=== PATIENT | male | born 1955 | race Caucasian/White ===

== ENCOUNTER 2016-04-25 15:37 | Emergency (ER) | payer MEDICARE, MEDICAID ==
[~2016-04-25] VITALS: Ht 172.7 cm; Wt 70.3 kg
[~2016-04-25 15:37] MED LIST: ADV500INH INH; ALBU17IN INH; ALBU83IN INH; ASPI81CH PO; ASPI81TAEC PO; AZIT500T2 PO; CARD240C5 PO; DIGO0.12 PO; ELIQ5TAB PO; GABA-279 PO; GLIM2TA PO; GLIM4TAB PO; Gabapentin PO; INCR1INH INH; INSULANT SC; KEPP1000 PO; LANTINJ4 SC; LORA10TA2 PO; METF1000 PO; METF500T PO; NEXI40CA PO; NITR4TASL SL; OXYC2.5T PO; PRED10TA PO; PRED20TA PO; RAMI1.25 PO; ROSU10TA PO; SPIR1CAP INH; TOPI50TA4 PO; TRAZ100T4 PO; TRAZ150T14 PO; [UNRECOGNIZED DRUG - CODE] PO
[2016-04-25] MEDS ORDERED: raNITIdine SYRUP 150 MG/10 ML UDC PO ONE (17:00)
--- NOTE | 2016-04-25 17:26 | EDDOCDS ---
Nurse's Notes [facility] Name: Donny Hurd Age: 61 yrs Sex: Male : 1955 Arrival Date: 04/25/2016 Time: 15:37 Bed PR1 / Private MD: [facility] - Adults Diagnosis: Urticaria, unspecified Presentation: 04/25 15:47 Presenting complaint: Patient states: arm rash x3 days. Itchy. Adult Sepsis Screening: ttb The patient does not have new or worsening altered mentation. Patient's respiratory rate is less than 22. Systolic blood pressure is greater than 100. Patient has a qSOFA score of 0- Negative Sepsis Screen. Suicide/Homicide risk assessment- the patient denies having any suicidal and/or homicidal ideations and does not present with any other emotional, behavioral or mental health complaints. Status: Patient is not a neon sign servicer or dependent. Transition of care: patient was not received from another setting of care. 15:47 Acuity: TONO Level 5 ttb 15:47 Method Of Arrival: Walkin/Carried/Asstd ttb Triage Assessment: 15:52 General: Appears in no apparent distress, well nourished, well groomed, Behavior is ttb appropriate for age, cooperative, pleasant. Pain: Denies pain. HIV screening NA for this visit Offered previously. Neurological: Level of Consciousness is awake, alert. Cardiovascular: Chest pain is denied. Respiratory: No deficits noted. Airway is patent Denies cough, shortness of breath. GI: Denies intolerance of food, nausea, vomiting, pain. Derm: Skin is normal, facial redness, rash on arms. Historical: - Allergies: tylenol; thorazine (Hives); PENICILLINS (Anaphylaxis); Paxil (Hives); Motrin; Mellaril; LITHIUM DERIVITIVES (Hives); Benadryl (Hives); Aspirin; - Home Meds: 1. 02 at 3lpm as needed (Last dose: Unknown) 2. albuterol sulfate 2.5 mg /3 mL (0.083 %) Inhl nebu every 6 hours (Last dose: Unknown) 3. trazodone 100 mg Oral tab nightly (Last dose: 04/24/2016 22:00) 4. Nexium 40 mg Oral cpDR 1 cap once daily (Last dose: 04/25/2016 08:00) 5. Spiriva with HandiHaler 18 mcg Inhl CpDv 1 cap once daily (Last dose: 04/25/2016 08:00) 6. nitroglycerin 0.4 mg SL subl 1 tab every 5 minutes for Angina (Last dose: Unknown) 7. metformin 500 mg Oral tab 2 times per day (Last dose: 04/25/2016 08:00) 8. ramipril 1.25 mg Oral cap 1 cap once daily (Last dose: 04/25/2016 08:00) 9. topiramate 50 mg oral CSpX 1 cap twice a day (Last dose: 04/25/2016 08:00) 10. gabapentin 100 mg Oral cap 1 caps 3 times per day (Last dose: 04/25/2016 08:00) 11. aspirin 81 mg Oral tab 1 tab once daily (Last dose: 04/25/2016 08:00) 12. glimepiride 4 mg Oral tab 1 tab once daily (Last dose: 04/25/2016 08:00) 13. Lantus 100 unit/mL Sub-Q soln 20 unit nightly (Last dose: 04/24/2016 20:00) 14. levetiracetam 1,000 mg oral tab 1 tab every 12 hours (Last dose: 04/25/2016 08:00) 15. umeclidinium inhalation once daily (Last dose: Unknown) - PMHx: Asthma; Chronic Back pain; Diabetes - IDDM: controlled; Emphysema; [place]; Parkinson's Disease; Seizure Disorder; - PSHx: none; - Social history: Smoking status: Patient uses tobacco products, heavy tobacco smoker. Patient/guardian denies using alcohol, street drugs, No barriers to communication noted, The patient speaks fluent Serbian, Speaks appropriately for age. - Family history: Not pertinent. - : The pt / caregiver states he / she is not on anticoagulants. Home medication list is obtained from the patient. - Exposure Risk Screening:: None identified. Screenin:56 Screening information is obtained from the patient. Fall risk: No risks identified. mlb1 Assistance ADL's: requires no assistance with activities of daily living. Abuse/DV Screen: The patient / caregiver reports he/she is: not in a situation that causes fear, pain or injury. Nutritional screening: No deficits noted. Advance Directives: Currently, there is no health care proxy. home support is adequate. Assessment: 16:55 General: Appears in no apparent distress, comfortable, Behavior is appropriate for age, mlb1 cooperative. Pain: Denies pain. Derm: Rash noted that is itchy, on right arm and left arm Reports itching. 17:24 General: Appears in no apparent distress, comfortable, Behavior is appropriate for age, mlb1 cooperative. Pain: Denies pain. Vital Signs: 15:39 BP 165 / 77; Pulse 101; Resp 20; Temp 98; Pulse Ox 98% ; Weight 70.31 kg; Height 5 ft. cmb 8 in. (172.72 cm); Pain 8/10; 15:39 Body Mass Index 23.57 (70.31 kg, 172.72 cm) cmb Vitals: 15:39 Log In Time: April 25, 2016 at 15:38. cmb ED Course: 15:38 Patient visited by Holly Latif. cmb 15:38 Patient moved to Waiting cmb 15:39 [facility] is Private Physician. cmb 15:40 Patient moved to Pre RCE cmb 15:49 Triage Initiated ttb 16:06 Patient moved to Triage 1 mlb1 16:30 [facility] Bahena F[facility]. ke 16:31 Patient visited by Chester Bahena FNP. ke 16:31 Patient visited by Chester Bahena FNP. ke 16:40 [facility] is Referral Physician. ke 16:47 Patient moved to PR1 / 25 jf3 16:56 The patient / caregiver is instructed regarding the plan of care and ED course. mlb1 16:56 No IV's were initiated during this patient's visit. No procedures done that require mlb1 assistance. 17:19 [facility] [place] Agreement was scanned into [employer] and attached to record. zo 17:25 Patient visited by Gulshan Garcia RN. mlb1 Administered Medications: 17:24 Drug: Ranitidine 300 mg [ranitidine 150 mg tablet (2 tabs)] Route: PO; mlb1 Order Results: There are currently no results for this order. Outcome: 16:40 Discharge ordered by Provider. ke 17:24 Discharge Assessment: Patient awake, alert and oriented x 3. No cognitive and/or mlb1 functional deficits noted. Patient verbalized understanding of disposition instructions. patient administered narcotics - no. The following High Risk Discharge criteria are identified: None. Discharged to home ambulatory. Condition: good. Discharge instructions given to patient, Instructed on discharge instructions, follow up and referral plans. medication usage, Demonstrated understanding of instructions, medications, Pt was receptive of discharge instructions/ teaching. Prescriptions given X 1. No special radiology studies were completed. Property sent home with patient. 17:25 Patient left the ED. mlb1 Signatures: Chester Bahena, DOCTOR OF PHARMACY Gulshan Piña RN RN mlb1 Nikita Rebolledo [place] cmb Conner, Teresa, RN RN ttb Luigi Herndon,RN RN jf3 MTDD
--- NOTE | 2016-04-25 17:26 | EDDOCDS ---
Physician Documentation [facility] Name: Donny Hurd Age: 61 yrs Sex: Male : 1955 Arrival Date: 04/25/2016 Time: 15:37 Bed PR Private MD: [facility] - Adults Disposition: 04/25/16 16:40 Discharged to Home/Self Care. Impression: Urticaria, unspecified. - Condition is Stable. - Discharge Instructions: Pruritus. - Prescriptions for Zantac 300 mg Oral Tablet - take 1 tablet by ORAL route At bedtime; 30 tablet. - Medication Reconciliation, Local Pharmacy Hours form. - Follow up: [facility] - Adults; When: 2 - 3 days; Reason: Recheck today's complaints, Continuance of care. - Problem is an ongoing problem. - Symptoms are unchanged. Historical: - Allergies: tylenol; thorazine (Hives); PENICILLINS (Anaphylaxis); Paxil (Hives); Motrin; Mellaril; LITHIUM DERIVITIVES (Hives); Benadryl (Hives); Aspirin; - Home Meds: 1. 02 at 3lpm as needed (Last dose: Unknown) 2. albuterol sulfate 2.5 mg /3 mL (0.083 %) Inhl nebu every 6 hours (Last dose: Unknown) 3. trazodone 100 mg Oral tab nightly (Last dose: 04/24/2016 22:00) 4. Nexium 40 mg Oral cpDR 1 cap once daily (Last dose: 04/25/2016 08:00) 5. Spiriva with HandiHaler 18 mcg Inhl CpDv 1 cap once daily (Last dose: 04/25/2016 08:00) 6. nitroglycerin 0.4 mg SL subl 1 tab every 5 minutes for Angina (Last dose: Unknown) 7. metformin 500 mg Oral tab 2 times per day (Last dose: 04/25/2016 08:00) 8. ramipril 1.25 mg Oral cap 1 cap once daily (Last dose: 04/25/2016 08:00) 9. topiramate 50 mg oral CSpX 1 cap twice a day (Last dose: 04/25/2016 08:00) 10. gabapentin 100 mg Oral cap 1 caps 3 times per day (Last dose: 04/25/2016 08:00) 11. aspirin 81 mg Oral tab 1 tab once daily (Last dose: 04/25/2016 08:00) 12. glimepiride 4 mg Oral tab 1 tab once daily (Last dose: 04/25/2016 08:00) 13. Lantus 100 unit/mL Sub-Q soln 20 unit nightly (Last dose: 04/24/2016 20:00) 14. levetiracetam 1,000 mg oral tab 1 tab every 12 hours (Last dose: 04/25/2016 08:00) 15. umeclidinium inhalation once daily (Last dose: Unknown) - PMHx: Asthma; Chronic Back pain; Diabetes - IDDM: controlled; Emphysema; [place]; Parkinson's Disease; Seizure Disorder; - PSHx: none; - Social history: Smoking status: Patient uses tobacco products, heavy tobacco smoker. Patient/guardian denies using alcohol, street drugs, No barriers to communication noted, The patient speaks fluent Nigerian, Speaks appropriately for age. - Family history: Not pertinent. - : The pt / caregiver states he / she is not on anticoagulants. Home medication list is obtained from the patient. - Exposure Risk Screening:: None identified. Vital Signs: 04/25 15:39 BP 165 / 77; Pulse 101; Resp 20; Temp 98; Pulse Ox 98% ; Weight 70.31 kg / 155.01 lbs; cmb Height 5 ft. 8 in. (172.72 cm); Pain 8/10; 15:39 Body Mass Index 23.57 (70.31 kg, 172.72 cm) cmb MDM: 16:42 Ranitidine 300 mg PO once ordered. apryl 17:02 Financial registration complete. zo 17:19 [facility] Payment Agreement was scanned into [employer] and attached to record. zo Administered Medications: 17:24 Drug: Ranitidine 300 mg [ranitidine 150 mg tablet (2 tabs)] Route: PO; mlb1 Signatures: Chester Bahena FNP FNP ke Barney, Michael B RN RN mlb1 Nikita Rebolledo Teresa RN RN ttb The chart was reviewed and I authenticate all verbal orders and agree with the evaluation and treatment provided.Attachments: 17:19 [facility] Payment Agreement zo MTDD
--- NOTE | 2016-04-27 18:26 | EDDOCDS ---
Physician Documentation [facility] Name: Donny Hurd Age: 61 yrs Sex: Male : 1955 Arrival Date: 04/25/2016 Time: 15:37 Bed PR Private MD: [facility] - Adults Disposition: 04/25/16 16:40 Discharged to Home/Self Care. Impression: Urticaria, unspecified. - Condition is Stable. - Discharge Instructions: Pruritus. - Prescriptions for Zantac 300 mg Oral Tablet - take 1 tablet by ORAL route At bedtime; 30 tablet. - Medication Reconciliation, Local Pharmacy Hours form. - Follow up: [facility] - Adults; When: 2 - 3 days; Reason: Recheck today's complaints, Continuance of care. - Problem is an ongoing problem. - Symptoms are unchanged. Historical: - Allergies: tylenol; thorazine (Hives); PENICILLINS (Anaphylaxis); Paxil (Hives); Motrin; Mellaril; LITHIUM DERIVITIVES (Hives); Benadryl (Hives); Aspirin; - Home Meds: 1. 02 at 3lpm as needed (Last dose: Unknown) 2. albuterol sulfate 2.5 mg /3 mL (0.083 %) Inhl nebu every 6 hours (Last dose: Unknown) 3. trazodone 100 mg Oral tab nightly (Last dose: 04/24/2016 22:00) 4. Nexium 40 mg Oral cpDR 1 cap once daily (Last dose: 04/25/2016 08:00) 5. Spiriva with HandiHaler 18 mcg Inhl CpDv 1 cap once daily (Last dose: 04/25/2016 08:00) 6. nitroglycerin 0.4 mg SL subl 1 tab every 5 minutes for Angina (Last dose: Unknown) 7. metformin 500 mg Oral tab 2 times per day (Last dose: 04/25/2016 08:00) 8. ramipril 1.25 mg Oral cap 1 cap once daily (Last dose: 04/25/2016 08:00) 9. topiramate 50 mg oral CSpX 1 cap twice a day (Last dose: 04/25/2016 08:00) 10. gabapentin 100 mg Oral cap 1 caps 3 times per day (Last dose: 04/25/2016 08:00) 11. aspirin 81 mg Oral tab 1 tab once daily (Last dose: 04/25/2016 08:00) 12. glimepiride 4 mg Oral tab 1 tab once daily (Last dose: 04/25/2016 08:00) 13. Lantus 100 unit/mL Sub-Q soln 20 unit nightly (Last dose: 04/24/2016 20:00) 14. levetiracetam 1,000 mg oral tab 1 tab every 12 hours (Last dose: 04/25/2016 08:00) 15. umeclidinium inhalation once daily (Last dose: Unknown) - PMHx: Asthma; Chronic Back pain; Diabetes - IDDM: controlled; Emphysema; [place]; Parkinson's Disease; Seizure Disorder; - PSHx: none; - Social history: Smoking status: Patient uses tobacco products, heavy tobacco smoker. Patient/guardian denies using alcohol, street drugs, No barriers to communication noted, The patient speaks fluent Cape Verdean, Speaks appropriately for age. - Family history: Not pertinent. - : The pt / caregiver states he / she is not on anticoagulants. Home medication list is obtained from the patient. - Exposure Risk Screening:: None identified. Vital Signs: 04/25 15:39 BP 165 / 77; Pulse 101; Resp 20; Temp 98; Pulse Ox 98% ; Weight 70.31 kg / 155.01 lbs; cmb Height 5 ft. 8 in. (172.72 cm); Pain 8/10; 15:39 Body Mass Index 23.57 (70.31 kg, 172.72 cm) cmb MDM: 16:42 Ranitidine 300 mg PO once ordered. apryl 17:02 Financial registration complete. zo 17:19 [facility] Payment Agreement was scanned into [employer] and attached to record. zo 04/26 11:45 T-Sheet-- Draft Copy was scanned into [employer] and attached to record. gb Administered Medications: 04/25 17:24 Drug: Ranitidine 300 mg [ranitidine 150 mg tablet (2 tabs)] Route: PO; mlb1 Signatures: Rebecca Veronica, Reg Reg Chester Reynoso, LOAN INTERVIEWER LOAN INTERVIEWER Gulshan Lopez RN RN mlb1 Amaury, Zoeann zo Aiden, Amy, RN RN ttb The chart was reviewed and I authenticate all verbal orders and agree with the evaluation and treatment provided.Attachments: 17:19 [facility] [place] Agreement zo 04/26 11:45 T-Sheet-- Draft Copy gb Chart Complete MTDD
--- NOTE | 2016-04-27 18:26 | EDDOCDS ---
Physician Documentation [facility] Name: Donny Hurd Age: 61 yrs Sex: Male : 1955 Arrival Date: 04/25/2016 Time: 15:37 Bed PR Private MD: [facility] - Adults Disposition: 04/25/16 16:40 Discharged to Home/Self Care. Impression: Urticaria, unspecified. - Condition is Stable. - Discharge Instructions: Pruritus. - Prescriptions for Zantac 300 mg Oral Tablet - take 1 tablet by ORAL route At bedtime; 30 tablet. - Medication Reconciliation, Local Pharmacy Hours form. - Follow up: [facility] - Adults; When: 2 - 3 days; Reason: Recheck today's complaints, Continuance of care. - Problem is an ongoing problem. - Symptoms are unchanged. Historical: - Allergies: tylenol; thorazine (Hives); PENICILLINS (Anaphylaxis); Paxil (Hives); Motrin; Mellaril; LITHIUM DERIVITIVES (Hives); Benadryl (Hives); Aspirin; - Home Meds: 1. 02 at 3lpm as needed (Last dose: Unknown) 2. albuterol sulfate 2.5 mg /3 mL (0.083 %) Inhl nebu every 6 hours (Last dose: Unknown) 3. trazodone 100 mg Oral tab nightly (Last dose: 04/24/2016 22:00) 4. Nexium 40 mg Oral cpDR 1 cap once daily (Last dose: 04/25/2016 08:00) 5. Spiriva with HandiHaler 18 mcg Inhl CpDv 1 cap once daily (Last dose: 04/25/2016 08:00) 6. nitroglycerin 0.4 mg SL subl 1 tab every 5 minutes for Angina (Last dose: Unknown) 7. metformin 500 mg Oral tab 2 times per day (Last dose: 04/25/2016 08:00) 8. ramipril 1.25 mg Oral cap 1 cap once daily (Last dose: 04/25/2016 08:00) 9. topiramate 50 mg oral CSpX 1 cap twice a day (Last dose: 04/25/2016 08:00) 10. gabapentin 100 mg Oral cap 1 caps 3 times per day (Last dose: 04/25/2016 08:00) 11. aspirin 81 mg Oral tab 1 tab once daily (Last dose: 04/25/2016 08:00) 12. glimepiride 4 mg Oral tab 1 tab once daily (Last dose: 04/25/2016 08:00) 13. Lantus 100 unit/mL Sub-Q soln 20 unit nightly (Last dose: 04/24/2016 20:00) 14. levetiracetam 1,000 mg oral tab 1 tab every 12 hours (Last dose: 04/25/2016 08:00) 15. umeclidinium inhalation once daily (Last dose: Unknown) - PMHx: Asthma; Chronic Back pain; Diabetes - IDDM: controlled; Emphysema; [place]; Parkinson's Disease; Seizure Disorder; - PSHx: none; - Social history: Smoking status: Patient uses tobacco products, heavy tobacco smoker. Patient/guardian denies using alcohol, street drugs, No barriers to communication noted, The patient speaks fluent Swiss, Speaks appropriately for age. - Family history: Not pertinent. - : The pt / caregiver states he / she is not on anticoagulants. Home medication list is obtained from the patient. - Exposure Risk Screening:: None identified. Vital Signs: 04/25 15:39 BP 165 / 77; Pulse 101; Resp 20; Temp 98; Pulse Ox 98% ; Weight 70.31 kg / 155.01 lbs; cmb Height 5 ft. 8 in. (172.72 cm); Pain 8/10; 15:39 Body Mass Index 23.57 (70.31 kg, 172.72 cm) cmb MDM: 16:42 Ranitidine 300 mg PO once ordered. apryl 17:02 Financial registration complete. zo 17:19 [facility] Payment Agreement was scanned into [employer] and attached to record. zo 04/26 11:45 T-Sheet-- Draft Copy was scanned into [employer] and attached to record. gb Administered Medications: 04/25 17:24 Drug: Ranitidine 300 mg [ranitidine 150 mg tablet (2 tabs)] Route: PO; mlb1 Signatures: Rebecca Veronica, Reg Reg Chester Reynoso, PIG IRON LOADER PIG IRON LOADER Gulshan Lopez RN RN mlb1 Amaury, Zoeann zo Aiden, Amy, RN RN ttb The chart was reviewed and I authenticate all verbal orders and agree with the evaluation and treatment provided.Attachments: 17:19 [facility] [place] Agreement zo 04/26 11:45 T-Sheet-- Draft Copy gb Chart Complete MTDD
--- NOTE | 2016-04-27 18:27 | EDDOCDS ---
Nurse's Notes [facility] Name: Donny Hurd Age: 61 yrs Sex: Male : 1955 Arrival Date: 04/25/2016 Time: 15:37 Bed PR1 / Private MD: [facility] - Adults Diagnosis: Urticaria, unspecified Presentation: 04/25 15:47 Presenting complaint: Patient states: arm rash x3 days. Itchy. Adult Sepsis Screening: ttb The patient does not have new or worsening altered mentation. Patient's respiratory rate is less than 22. Systolic blood pressure is greater than 100. Patient has a qSOFA score of 0- Negative Sepsis Screen. Suicide/Homicide risk assessment- the patient denies having any suicidal and/or homicidal ideations and does not present with any other emotional, behavioral or mental health complaints. Status: Patient is not a human services supervisor or dependent. Transition of care: patient was not received from another setting of care. 15:47 Acuity: TONO Level 5 ttb 15:47 Method Of Arrival: Walkin/Carried/Asstd ttb Triage Assessment: 15:52 General: Appears in no apparent distress, well nourished, well groomed, Behavior is ttb appropriate for age, cooperative, pleasant. Pain: Denies pain. HIV screening NA for this visit Offered previously. Neurological: Level of Consciousness is awake, alert. Cardiovascular: Chest pain is denied. Respiratory: No deficits noted. Airway is patent Denies cough, shortness of breath. GI: Denies intolerance of food, nausea, vomiting, pain. Derm: Skin is normal, facial redness, rash on arms. Historical: - Allergies: tylenol; thorazine (Hives); PENICILLINS (Anaphylaxis); Paxil (Hives); Motrin; Mellaril; LITHIUM DERIVITIVES (Hives); Benadryl (Hives); Aspirin; - Home Meds: 1. 02 at 3lpm as needed (Last dose: Unknown) 2. albuterol sulfate 2.5 mg /3 mL (0.083 %) Inhl nebu every 6 hours (Last dose: Unknown) 3. trazodone 100 mg Oral tab nightly (Last dose: 04/24/2016 22:00) 4. Nexium 40 mg Oral cpDR 1 cap once daily (Last dose: 04/25/2016 08:00) 5. Spiriva with HandiHaler 18 mcg Inhl CpDv 1 cap once daily (Last dose: 04/25/2016 08:00) 6. nitroglycerin 0.4 mg SL subl 1 tab every 5 minutes for Angina (Last dose: Unknown) 7. metformin 500 mg Oral tab 2 times per day (Last dose: 04/25/2016 08:00) 8. ramipril 1.25 mg Oral cap 1 cap once daily (Last dose: 04/25/2016 08:00) 9. topiramate 50 mg oral CSpX 1 cap twice a day (Last dose: 04/25/2016 08:00) 10. gabapentin 100 mg Oral cap 1 caps 3 times per day (Last dose: 04/25/2016 08:00) 11. aspirin 81 mg Oral tab 1 tab once daily (Last dose: 04/25/2016 08:00) 12. glimepiride 4 mg Oral tab 1 tab once daily (Last dose: 04/25/2016 08:00) 13. Lantus 100 unit/mL Sub-Q soln 20 unit nightly (Last dose: 04/24/2016 20:00) 14. levetiracetam 1,000 mg oral tab 1 tab every 12 hours (Last dose: 04/25/2016 08:00) 15. umeclidinium inhalation once daily (Last dose: Unknown) - PMHx: Asthma; Chronic Back pain; Diabetes - IDDM: controlled; Emphysema; [place]; Parkinson's Disease; Seizure Disorder; - PSHx: none; - Social history: Smoking status: Patient uses tobacco products, heavy tobacco smoker. Patient/guardian denies using alcohol, street drugs, No barriers to communication noted, The patient speaks fluent Salvadorean, Speaks appropriately for age. - Family history: Not pertinent. - : The pt / caregiver states he / she is not on anticoagulants. Home medication list is obtained from the patient. - Exposure Risk Screening:: None identified. Screenin:56 Screening information is obtained from the patient. Fall risk: No risks identified. mlb1 Assistance ADL's: requires no assistance with activities of daily living. Abuse/DV Screen: The patient / caregiver reports he/she is: not in a situation that causes fear, pain or injury. Nutritional screening: No deficits noted. Advance Directives: Currently, there is no health care proxy. home support is adequate. Assessment: 16:55 General: Appears in no apparent distress, comfortable, Behavior is appropriate for age, mlb1 cooperative. Pain: Denies pain. Derm: Rash noted that is itchy, on right arm and left arm Reports itching. 17:24 General: Appears in no apparent distress, comfortable, Behavior is appropriate for age, mlb1 cooperative. Pain: Denies pain. Vital Signs: 15:39 BP 165 / 77; Pulse 101; Resp 20; Temp 98; Pulse Ox 98% ; Weight 70.31 kg; Height 5 ft. cmb 8 in. (172.72 cm); Pain 8/10; 15:39 Body Mass Index 23.57 (70.31 kg, 172.72 cm) cmb Vitals: 15:39 Log In Time: April 25, 2016 at 15:38. cmb ED Course: 15:38 Patient visited by Holly Latif. cmb 15:38 Patient moved to Waiting cmb 15:39 [facility] is Private Physician. cmb 15:40 Patient moved to Pre RCE cmb 15:49 Triage Initiated ttb 16:06 Patient moved to Triage 1 mlb1 16:30 [facility] ke 16:31 Patient visited by Chester Bahena FNP. ke 16:31 Patient visited by Chester Bahena FNP. ke 16:40 [facility] is Referral Physician. ke 16:47 Patient moved to PR1 / jf3 16:56 The patient / caregiver is instructed regarding the plan of care and ED course. mlb1 16:56 No IV's were initiated during this patient's visit. No procedures done that require mlb1 assistance. 17:19 [facility] [place] was scanned into [employer] and attached to record. zo 17:25 Patient visited by Gulshan Garcia RN. mlb1 04/26 11:45 T-Sheet-- Draft Copy was scanned into [employer] and attached to record. gb Administered Medications: 04/25 17:24 Drug: Ranitidine 300 mg [ranitidine 150 mg tablet (2 tabs)] Route: PO; mlb1 Order Results: There are currently no results for this order. Outcome: 16:40 Discharge ordered by Provider. ke 17:24 Discharge Assessment: Patient awake, alert and oriented x 3. No cognitive and/or mlb1 functional deficits noted. Patient verbalized understanding of disposition instructions. patient administered narcotics - no. The following High Risk Discharge criteria are identified: None. Discharged to home ambulatory. Condition: good. Discharge instructions given to patient, Instructed on discharge instructions, follow up and referral plans. medication usage, Demonstrated understanding of instructions, medications, Pt was receptive of discharge instructions/ teaching. Prescriptions given X 1. No special radiology studies were completed. Property sent home with patient. 17:25 Patient left the ED. mlb1 Signatures: Rebecca Veronica, Reg Reg gb Chester Bahena, STRAWHAT INSPECTOR AND PACKER STRAWHAT INSPECTOR AND PACKER Gulshan Lopez, RN RN mlb1 Nikita Rebolledo [place] cmb Conner, Teresa, RN RN ttb Luigi Herndon,RN RN jf3 Chart Complete MTDD
== END 2016-04-25 17:25 | disposition home or self-care (01) ==
LOC: M ED 15:37
DX: L29.9 Pruritus, unspecified (principal); L50.9 Urticaria, unspecified; J45.909 Unspecified asthma, uncomplicated; G89.29 Other chronic pain; M54.9 Dorsalgia, unspecified; E11.9 Type 2 diabetes mellitus without complications; I25.2 Old myocardial infarction; G40.909 Epilepsy, unspecified, not intractable, without status epilepticus; J43.9 Emphysema, unspecified; G20 Parkinson's disease; Z72.0 Tobacco use; Z79.82 Long term (current) use of aspirin; Z79.899 Other long term (current) drug therapy; Z88.6 Allergy status to analgesic agent; Z88.0 Allergy status to penicillin; Z88.8 Allergy status to other drugs, medicaments and biological substances

== ENCOUNTER 2016-05-05 19:28 | Emergency (ER) | payer MEDICARE, MEDICAID ==
[2016-05-05] MEDS ORDERED: KETOROLAC 30 MG/ML VIAL (J1885) As Ordered ONE (20:14)
[2016-05-05] MEDS ORDERED: traMADol 50 MG TAB As Ordered ONE (21:56)
--- NOTE | 2016-05-05 22:07 | EDDOCDS ---
Physician Documentation [facility] Name: Donny Hurd Age: 61 yrs Sex: Male : 1955 Arrival Date: 05/05/2016 Time: 19:28 Bed 14 Private MD: Gonzalez Rob D Disposition: 05/05/16 21:53 Discharged to Home/Self Care. Impression: Pain in left shoulder. - Condition is Stable. - Medication Reconciliation, Local Pharmacy Hours form. - Follow up: Gonzalez Rob; When: Call to arrange an appointment; Reason: Recheck today's complaints. - Problem is chronic. - Symptoms have improved. Historical: - Allergies: Benadryl (Hives); LITHIUM DERIVITIVES (Hives); Mellaril; Motrin; Paxil (Hives); PENICILLINS (Anaphylaxis); thorazine (Hives); tylenol; - Home Meds: 1. 02 at 3lpm as needed 2. albuterol sulfate 2.5 mg /3 mL (0.083 %) Inhl nebu every 6 hours 3. aspirin 81 mg Oral tab 1 tab once daily 4. gabapentin 100 mg Oral cap 1 caps 3 times per day 5. glimepiride 4 mg Oral tab 1 tab once daily 6. Lantus 100 unit/mL Sub-Q soln 20 unit nightly 7. levetiracetam 1,000 mg oral tab 1 tab every 12 hours 8. metformin 500 mg Oral tab 2 times per day 9. Nexium 40 mg Oral cpDR 1 cap once daily 10. nitroglycerin 0.4 mg SL subl 1 tab every 5 minutes for Angina 11. ramipril 1.25 mg Oral cap 1 cap once daily 12. Spiriva with HandiHaler 18 mcg Inhl CpDv 1 cap once daily 13. topiramate 50 mg oral CSpX 1 cap twice a day 14. trazodone 100 mg Oral tab nightly 15. umeclidinium inhalation once daily - PMHx: Asthma; Chronic Back pain; Diabetes - IDDM: controlled; Emphysema; [place]; Parkinson's Disease; Seizure Disorder; - PSHx: none; - Social history: Smoking status: Patient states was never smoker of tobacco. No barriers to communication noted, The patient speaks fluent Arabic, Speaks appropriately for age. - Family history: Not pertinent. - : The pt / caregiver states he / she is not on anticoagulants. Home medication list is obtained from the patient. - Exposure Risk Screening:: None identified. Vital Signs: 05/05 19:54 BP 123 / 73; Pulse 84; Resp 18; Temp 97.8(O); Pulse Ox 94% on R/A; Weight 72.57 kg / jo3 159.99 lbs; Height 5 ft. 8 in. (172.72 cm); 21:56 BP 111 / 57; Pulse 81; Resp 18; Temp 99.0(TE); Pulse Ox 95% on R/A; Pain 10/10; daryl 19:54 Body Mass Index 24.33 (72.57 kg, 172.72 cm) jo3 MDM: 20:13 ketorolac 60 mg IM once ordered. cs11 20:13 Shoulder, Complete Ordered. EDMS 21:53 traMADol 50 mg PO once ordered. cs11 Administered Medications: 20:20 Drug: ketorolac 60 mg [ketorolac 30 mg/mL (1 mL) injection solution (2 mL)] Route: IM; jo3 Site: left gluteus; 22:03 Drug: traMADol 50 mg [tramadol 50 mg tablet (1 tabs)] Route: PO; mb9 Signatures: Dispatcher [employer] EDMS Bernadine LeonRN RN jo3 Immanuel Chen DO DO cs11 Gulshan Stephens RN RN mb9 The chart was reviewed and I authenticate all verbal orders and agree with the evaluation and treatment provided.Corrections: (The following items were deleted from the chart) 19:59 19:49 Allergies: Aspirin; jo3 jo3 MTDD
--- NOTE | 2016-05-05 22:07 | EDDOCDS ---
Nurse's Notes [facility] Name: Donny Hurd Age: 61 yrs Sex: Male : 1955 Arrival Date: 05/05/2016 Time: 19:28 Bed 14 Private MD: Gonzalez Rob D Diagnosis: Pain in left shoulder Presentation: 05/05 19:40 Presenting complaint: EMS states: Previous history CVA. states left sided weakness jo3 going on for 3 days. Has weakened speech and language assistant on left but is historical from previous CVA. Walk 40 feet to stretcher with no difficulty. Has some left arm, neck and upper back pain. FSBS 223. All VS WNL. 19:57 The last date and time the patient was known to be well was was at an unknown time on jo3 an unknown date. Chronic Pre-hospital glucose is not applicable to this patient. Adult Sepsis Screening: The patient does not have new or worsening altered mentation. Patient's respiratory rate is less than 22. Systolic blood pressure is greater than 100. Patient has a qSOFA score of 0- Negative Sepsis Screen. Suicide/Homicide risk assessment- the patient denies having any suicidal and/or homicidal ideations and does not present with any other emotional, behavioral or mental health complaints. Status: Patient is not a child protective services specialist or dependent. Transition of care: patient was not received from another setting of care. 19:57 Acuity: TONO Level 3 jo3 19:57 Method Of Arrival: Ambulance jo3 Triage Assessment: 19:57 HIV screening NA for this visit Offered previously. jo3 Historical: - Allergies: Benadryl (Hives); LITHIUM DERIVITIVES (Hives); Mellaril; Motrin; Paxil (Hives); PENICILLINS (Anaphylaxis); thorazine (Hives); tylenol; - Home Meds: 1. 02 at 3lpm as needed 2. albuterol sulfate 2.5 mg /3 mL (0.083 %) Inhl nebu every 6 hours 3. aspirin 81 mg Oral tab 1 tab once daily 4. gabapentin 100 mg Oral cap 1 caps 3 times per day 5. glimepiride 4 mg Oral tab 1 tab once daily 6. Lantus 100 unit/mL Sub-Q soln 20 unit nightly 7. levetiracetam 1,000 mg oral tab 1 tab every 12 hours 8. metformin 500 mg Oral tab 2 times per day 9. Nexium 40 mg Oral cpDR 1 cap once daily 10. nitroglycerin 0.4 mg SL subl 1 tab every 5 minutes for Angina 11. ramipril 1.25 mg Oral cap 1 cap once daily 12. Spiriva with HandiHaler 18 mcg Inhl CpDv 1 cap once daily 13. topiramate 50 mg oral CSpX 1 cap twice a day 14. trazodone 100 mg Oral tab nightly 15. umeclidinium inhalation once daily - PMHx: Asthma; Chronic Back pain; Diabetes - IDDM: controlled; Emphysema; [place]; Parkinson's Disease; Seizure Disorder; - PSHx: none; - Social history: Smoking status: Patient states was never smoker of tobacco. No barriers to communication noted, The patient speaks fluent Mosotho, Speaks appropriately for age. - Family history: Not pertinent. - : The pt / caregiver states he / she is not on anticoagulants. Home medication list is obtained from the patient. - Exposure Risk Screening:: None identified. Screenin:01 Screening information is obtained from the patient. Assistance ADL's: requires no jo3 assistance with activities of daily living. Abuse/DV Screen: The patient / caregiver reports he/she is: not in a situation that causes fear, pain or injury. Nutritional screening: No deficits noted. Advance Directives: There is no active DNR order. home support is adequate. 22:04 Fall risk: At risk due to age, immobility. mb9 Assessment: 19:59 General: Appears in no apparent distress, comfortable, Behavior is appropriate for age, jo3 cooperative. Pain: Location: left arm, left shoulder, left leg. Neurological: Level of Consciousness is awake, alert, Oriented to person, place, time, Cafeteria Or Lunchroom Checker are weak on left Moves all extremities. Speech is normal, Facial symmetry appears normal, Pupils are PERRLA. Respiratory: Airway is patent Respiratory effort is even, unlabored, Breath sounds are clear bilaterally. Derm: Skin is pink, warm & dry. scattered red alvarado to TITO legs. Pt states they are wounds for which he is prescribed an antibiotic and "Its not working". 20:47 Reassessment: Patient appears in no apparent distress at this time. No significant jo3 changes not from initial assessment status. resting on stretcher at this time. awaiting results for disposition at this time. Aware of plan of care . 21:16 General: Appears in no apparent distress, Behavior is appropriate for age, cooperative, jo3 pleasant. General: Pt reports no pain relief at this time. provider aware. Box lunch given as per provider instruction. Neurological: No deficits noted. Respiratory: No deficits noted. Airway is patent Respiratory effort is even, unlabored. Vital Signs: 19:54 BP 123 / 73; Pulse 84; Resp 18; Temp 97.8(O); Pulse Ox 94% on R/A; Weight 72.57 kg; jo3 Height 5 ft. 8 in. (172.72 cm); 21:56 BP 111 / 57; Pulse 81; Resp 18; Temp 99.0(TE); Pulse Ox 95% on R/A; Pain 10/10; daryl 19:54 Body Mass Index 24.33 (72.57 kg, 172.72 cm) jo3 Vitals: 19:54 Glucose Measurement D-stick done by EMS. Log In Time N/A - ambulance arrival. jo3 ED Course: 19:29 Patient visited by Nallely Urbano, Entry Level Recruiter. ml3 19:29 Gonzalez Rob is Private Physician. ml3 19:29 Patient moved to Waiting ml3 19:45 Patient moved to Family 1 ml3 19:46 Immanuel Chen DO is Attending Physician. cs11 19:46 Patient visited by Immanuel Chen DO. cs11 19:47 Bernadine Richardson,SHAKIRA is Primary Nurse. ml3 19:47 Patient moved to 14 ml3 19:56 Primary Nurse role handed off by Bernadine Richardson,SHAKIRA daryl 19:58 Triage Initiated jo3 20:01 The patient / caregiver is instructed regarding the plan of care and ED course. jo3 20:02 Patient visited by Bernadine Leon RN. jo3 20:48 Patient visited by Bernadine Leon RN. jo3 21:17 Patient visited by Bernadine Leon RN. jo3 21:53 Gonzalez Rob is Referral Physician. cs11 21:57 Patient visited by Jaclyn Abreu PCA. daryl 22:04 No IV's were initiated during this patient's visit. No procedures done that require mb9 assistance. Administered Medications: 20:20 Drug: ketorolac 60 mg [ketorolac 30 mg/mL (1 mL) injection solution (2 mL)] Route: IM; jo3 Site: left gluteus; 22:03 Drug: traMADol 50 mg [tramadol 50 mg tablet (1 tabs)] Route: PO; mb9 Order Results: There are currently no results for this order. Outcome: 21:53 Discharge ordered by Provider. cs11 22:04 Discharge Assessment: Patient awake, alert and oriented x 3. No cognitive and/or mb9 functional deficits noted. Patient verbalized understanding of disposition instructions. patient administered narcotics - no. The following High Risk Discharge criteria are identified: None. Discharged to home ambulatory. Condition: good Condition: stable Condition: improved. Discharge instructions given to patient, Instructed on discharge instructions, follow up and referral plans. medication usage, Demonstrated understanding of instructions, medications, Pt was receptive of discharge instructions/ teaching. No special radiology studies were completed. Property :Personal belongings accompany Pt. 22:06 Patient left the ED. mb9 Signatures: Nallely Urbano, Entry Level Recruiter Unit ml3 Bernadine Leon,RN RN jo3 Jaclyn Abreu, RADIATION THERAPY TECHNOLOGIST RADIATION THERAPY TECHNOLOGIST Immanuel Ambrocio, DO DO cs11 Gulshan Stephens,RN RN mb9 Corrections: (The following items were deleted from the chart) 19:59 19:49 Allergies: Aspirin; juliann humphreys MTDD
--- NOTE | 2016-05-05 22:59 | REP ---
Left shoulder series, three-view exam, 05/05/2016 Comparison: AP sitting chest radiograph 03/03/2016 Findings: Moderate hypertrophic and osteoarthritic changes are noted at the left acromioclavicular joint. There is mild narrowing of glenohumeral joint There is no acute fracture or dislocation within the left shoulder. Impression: Osteoarthritic changes at acromioclavicular joint and to a lesser extent the glenohumeral joint. No acute fracture or dislocation in left shoulder. Signed by Zeinab Rivera MD 05/05/2016 10:51 P
--- NOTE | 2016-05-07 23:07 | EDDOCDS ---
Physician Documentation [facility] Name: Donny Hurd Age: 61 yrs Sex: Male : 1955 Arrival Date: 05/05/2016 Time: 19:28 Bed 14 Private MD: Gonzalez Rob D Disposition: 05/05/16 21:53 Discharged to Home/Self Care. Impression: Pain in left shoulder. - Condition is Stable. - Medication Reconciliation, Local Pharmacy Hours form. - Follow up: Gonzalez Rob; When: Call to arrange an appointment; Reason: Recheck today's complaints. - Problem is chronic. - Symptoms have improved. Historical: - Allergies: Benadryl (Hives); LITHIUM DERIVITIVES (Hives); Mellaril; Motrin; Paxil (Hives); PENICILLINS (Anaphylaxis); thorazine (Hives); tylenol; - Home Meds: 1. 02 at 3lpm as needed 2. albuterol sulfate 2.5 mg /3 mL (0.083 %) Inhl nebu every 6 hours 3. aspirin 81 mg Oral tab 1 tab once daily 4. gabapentin 100 mg Oral cap 1 caps 3 times per day 5. glimepiride 4 mg Oral tab 1 tab once daily 6. Lantus 100 unit/mL Sub-Q soln 20 unit nightly 7. levetiracetam 1,000 mg oral tab 1 tab every 12 hours 8. metformin 500 mg Oral tab 2 times per day 9. Nexium 40 mg Oral cpDR 1 cap once daily 10. nitroglycerin 0.4 mg SL subl 1 tab every 5 minutes for Angina 11. ramipril 1.25 mg Oral cap 1 cap once daily 12. Spiriva with HandiHaler 18 mcg Inhl CpDv 1 cap once daily 13. topiramate 50 mg oral CSpX 1 cap twice a day 14. trazodone 100 mg Oral tab nightly 15. umeclidinium inhalation once daily - PMHx: Asthma; Chronic Back pain; Diabetes - IDDM: controlled; Emphysema; [place]; Parkinson's Disease; Seizure Disorder; - PSHx: none; - Social history: Smoking status: Patient states was never smoker of tobacco. No barriers to communication noted, The patient speaks fluent Wolof, Speaks appropriately for age. - Family history: Not pertinent. - : The pt / caregiver states he / she is not on anticoagulants. Home medication list is obtained from the patient. - Exposure Risk Screening:: None identified. Vital Signs: 05/05 19:54 BP 123 / 73; Pulse 84; Resp 18; Temp 97.8(O); Pulse Ox 94% on R/A; Weight 72.57 kg / jo3 159.99 lbs; Height 5 ft. 8 in. (172.72 cm); 21:56 BP 111 / 57; Pulse 81; Resp 18; Temp 99.0(TE); Pulse Ox 95% on R/A; Pain 10/10; daryl 19:54 Body Mass Index 24.33 (72.57 kg, 172.72 cm) jo3 MDM: 20:13 ketorolac 60 mg IM once ordered. cs11 20:13 Shoulder, Complete Ordered. EDMS 21:53 traMADol 50 mg PO once ordered. cs11 05/06 18:02 T-Sheet-- Draft Copy was scanned into [employer] and attached to record. klr Administered Medications: 05/05 20:20 Drug: ketorolac 60 mg [ketorolac 30 mg/mL (1 mL) injection solution (2 mL)] Route: IM; jo3 Site: left gluteus; 22:03 Drug: traMADol 50 mg [tramadol 50 mg tablet (1 tabs)] Route: PO; boogie Signatures: Dispatcher [employer] EDMS Bernadine Leon RN RN jo3 Immanuel Chen DO DO cs11 Gulshan Stephens RN RN mb9 Ella Helm klblanca The chart was reviewed and I authenticate all verbal orders and agree with the evaluation and treatment provided.Corrections: (The following items were deleted from the chart) 19:59 19:49 Allergies: Aspirin; jo3 jo3 Attachments: 05/06 18:02 T-Sheet-- Draft Copy klr Chart Complete MTDD
--- NOTE | 2016-05-07 23:07 | EDDOCDS ---
Nurse's Notes [facility] Name: Donny Hurd Age: 61 yrs Sex: Male : 1955 Arrival Date: 05/05/2016 Time: 19:28 Bed 14 Private MD: Gonzalez Rob D Diagnosis: Pain in left shoulder Presentation: 05/05 19:40 Presenting complaint: EMS states: Previous history CVA. states left sided weakness jo3 going on for 3 days. Has weakened director of cardiopulmonary services on left but is historical from previous CVA. Walk 40 feet to stretcher with no difficulty. Has some left arm, neck and upper back pain. FSBS 223. All VS WNL. 19:57 The last date and time the patient was known to be well was was at an unknown time on jo3 an unknown date. Chronic Pre-hospital glucose is not applicable to this patient. Adult Sepsis Screening: The patient does not have new or worsening altered mentation. Patient's respiratory rate is less than 22. Systolic blood pressure is greater than 100. Patient has a qSOFA score of 0- Negative Sepsis Screen. Suicide/Homicide risk assessment- the patient denies having any suicidal and/or homicidal ideations and does not present with any other emotional, behavioral or mental health complaints. Status: Patient is not a cargo service agent or dependent. Transition of care: patient was not received from another setting of care. 19:57 Acuity: TONO Level 3 jo3 19:57 Method Of Arrival: Ambulance jo3 Triage Assessment: 19:57 HIV screening NA for this visit Offered previously. jo3 Historical: - Allergies: Benadryl (Hives); LITHIUM DERIVITIVES (Hives); Mellaril; Motrin; Paxil (Hives); PENICILLINS (Anaphylaxis); thorazine (Hives); tylenol; - Home Meds: 1. 02 at 3lpm as needed 2. albuterol sulfate 2.5 mg /3 mL (0.083 %) Inhl nebu every 6 hours 3. aspirin 81 mg Oral tab 1 tab once daily 4. gabapentin 100 mg Oral cap 1 caps 3 times per day 5. glimepiride 4 mg Oral tab 1 tab once daily 6. Lantus 100 unit/mL Sub-Q soln 20 unit nightly 7. levetiracetam 1,000 mg oral tab 1 tab every 12 hours 8. metformin 500 mg Oral tab 2 times per day 9. Nexium 40 mg Oral cpDR 1 cap once daily 10. nitroglycerin 0.4 mg SL subl 1 tab every 5 minutes for Angina 11. ramipril 1.25 mg Oral cap 1 cap once daily 12. Spiriva with HandiHaler 18 mcg Inhl CpDv 1 cap once daily 13. topiramate 50 mg oral CSpX 1 cap twice a day 14. trazodone 100 mg Oral tab nightly 15. umeclidinium inhalation once daily - PMHx: Asthma; Chronic Back pain; Diabetes - IDDM: controlled; Emphysema; [place]; Parkinson's Disease; Seizure Disorder; - PSHx: none; - Social history: Smoking status: Patient states was never smoker of tobacco. No barriers to communication noted, The patient speaks fluent Burmese, Speaks appropriately for age. - Family history: Not pertinent. - : The pt / caregiver states he / she is not on anticoagulants. Home medication list is obtained from the patient. - Exposure Risk Screening:: None identified. Screenin:01 Screening information is obtained from the patient. Assistance ADL's: requires no jo3 assistance with activities of daily living. Abuse/DV Screen: The patient / caregiver reports he/she is: not in a situation that causes fear, pain or injury. Nutritional screening: No deficits noted. Advance Directives: There is no active DNR order. home support is adequate. 22:04 Fall risk: At risk due to age, immobility. mb9 Assessment: 19:59 General: Appears in no apparent distress, comfortable, Behavior is appropriate for age, jo3 cooperative. Pain: Location: left arm, left shoulder, left leg. Neurological: Level of Consciousness is awake, alert, Oriented to person, place, time, Plow And Boring Machine Tender are weak on left Moves all extremities. Speech is normal, Facial symmetry appears normal, Pupils are PERRLA. Respiratory: Airway is patent Respiratory effort is even, unlabored, Breath sounds are clear bilaterally. Derm: Skin is pink, warm & dry. scattered red alvarado to TITO legs. Pt states they are wounds for which he is prescribed an antibiotic and "Its not working". 20:47 Reassessment: Patient appears in no apparent distress at this time. No significant jo3 changes not from initial assessment status. resting on stretcher at this time. awaiting results for disposition at this time. Aware of plan of care . 21:16 General: Appears in no apparent distress, Behavior is appropriate for age, cooperative, jo3 pleasant. General: Pt reports no pain relief at this time. provider aware. Box lunch given as per provider instruction. Neurological: No deficits noted. Respiratory: No deficits noted. Airway is patent Respiratory effort is even, unlabored. Vital Signs: 19:54 BP 123 / 73; Pulse 84; Resp 18; Temp 97.8(O); Pulse Ox 94% on R/A; Weight 72.57 kg; jo3 Height 5 ft. 8 in. (172.72 cm); 21:56 BP 111 / 57; Pulse 81; Resp 18; Temp 99.0(TE); Pulse Ox 95% on R/A; Pain 10/10; daryl 19:54 Body Mass Index 24.33 (72.57 kg, 172.72 cm) jo3 Vitals: 19:54 Glucose Measurement D-stick done by EMS. Log In Time N/A - ambulance arrival. jo3 ED Course: 19:29 Patient visited by Nallely Urbano, Observer Electrical Prospecting. ml3 19:29 Gonzalez Rob is Private Physician. ml3 19:29 Patient moved to Waiting ml3 19:45 Patient moved to Family 1 ml3 19:46 Immanuel Chen DO is Attending Physician. cs11 19:46 Patient visited by Immanuel Chen DO. cs11 19:47 Bernadine Richardson,SHAKIRA is Primary Nurse. ml3 19:47 Patient moved to 14 ml3 19:56 Primary Nurse role handed off by Bernadine Richardson,SHAKIRA daryl 19:58 Triage Initiated jo3 20:01 The patient / caregiver is instructed regarding the plan of care and ED course. jo3 20:02 Patient visited by Bernadine Leon RN. jo3 20:48 Patient visited by Bernadine Leon RN. jo3 21:17 Patient visited by Bernadine Leon RN. jo3 21:53 Gonzalez Rob is Referral Physician. cs11 21:57 Patient visited by Jaclyn Abreu PCA. daryl 22:04 No IV's were initiated during this patient's visit. No procedures done that require mb9 assistance. 23:56 Shoulder, Complete Returned. EDMS 05/06 18:02 T-Sheet-- Draft Copy was scanned into [employer] and attached to record. klr Administered Medications: 05/05 20:20 Drug: ketorolac 60 mg [ketorolac 30 mg/mL (1 mL) injection solution (2 mL)] Route: IM; jo3 Site: left gluteus; 22:03 Drug: traMADol 50 mg [tramadol 50 mg tablet (1 tabs)] Route: PO; mb9 Order Results: Radiology Order: Shoulder, Complete Test: Shoulder, Complete REASON FOR EXAMINATION: Deformity/Swelling; Left shoulder series, three-view exam, 05/05/2016; ; Comparison: AP sitting chest radiograph 03/03/2016; ; Findings: Moderate hypertrophic and osteoarthritic changes are noted at the left; acromioclavicular joint. There is mild narrowing of glenohumeral joint There is; no acute fracture or dislocation within the left shoulder.; ; Impression:; ; Osteoarthritic changes at acromioclavicular joint and to a lesser extent the; glenohumeral joint.; ; No acute fracture or dislocation in left shoulder.; ; ; Signed by; Zeinab Rivera MD 05/05/2016 10:51 P; Outcome: 21:53 Discharge ordered by Provider. 11 22:04 Discharge Assessment: Patient awake, alert and oriented x 3. No cognitive and/or mb9 functional deficits noted. Patient verbalized understanding of disposition instructions. patient administered narcotics - no. The following High Risk Discharge criteria are identified: None. Discharged to home ambulatory. Condition: good Condition: stable Condition: improved. Discharge instructions given to patient, Instructed on discharge instructions, follow up and referral plans. medication usage, Demonstrated understanding of instructions, medications, Pt was receptive of discharge instructions/ teaching. No special radiology studies were completed. Property :Personal belongings accompany Pt. 22:06 Patient left the ED. mb9 Signatures: Dispatcher [facility] Nallely Urbano, Observer Electrical Prospecting Unit ml3 Bernadine LeonRN RN Jaclyn Aguila, EXPANDED DUTY DENTAL ASSISTANT EXPANDED DUTY DENTAL ASSISTANT Immanuel Ambrocio, DO DO cs11 Gulshan StephensRN RN Ella Beal r Corrections: (The following items were deleted from the chart) 19:59 19:49 Allergies: Aspirin; jo3 jo3 Chart Complete MTDD
--- NOTE | 2016-05-07 23:07 | EDDOCDS ---
Physician Documentation [facility] Name: Donny Hurd Age: 61 yrs Sex: Male : 1955 Arrival Date: 05/05/2016 Time: 19:28 Bed 14 Private MD: Gonzalez Rob D Disposition: 05/05/16 21:53 Discharged to Home/Self Care. Impression: Pain in left shoulder. - Condition is Stable. - Medication Reconciliation, Local Pharmacy Hours form. - Follow up: Gonzalez Rob; When: Call to arrange an appointment; Reason: Recheck today's complaints. - Problem is chronic. - Symptoms have improved. Historical: - Allergies: Benadryl (Hives); LITHIUM DERIVITIVES (Hives); Mellaril; Motrin; Paxil (Hives); PENICILLINS (Anaphylaxis); thorazine (Hives); tylenol; - Home Meds: 1. 02 at 3lpm as needed 2. albuterol sulfate 2.5 mg /3 mL (0.083 %) Inhl nebu every 6 hours 3. aspirin 81 mg Oral tab 1 tab once daily 4. gabapentin 100 mg Oral cap 1 caps 3 times per day 5. glimepiride 4 mg Oral tab 1 tab once daily 6. Lantus 100 unit/mL Sub-Q soln 20 unit nightly 7. levetiracetam 1,000 mg oral tab 1 tab every 12 hours 8. metformin 500 mg Oral tab 2 times per day 9. Nexium 40 mg Oral cpDR 1 cap once daily 10. nitroglycerin 0.4 mg SL subl 1 tab every 5 minutes for Angina 11. ramipril 1.25 mg Oral cap 1 cap once daily 12. Spiriva with HandiHaler 18 mcg Inhl CpDv 1 cap once daily 13. topiramate 50 mg oral CSpX 1 cap twice a day 14. trazodone 100 mg Oral tab nightly 15. umeclidinium inhalation once daily - PMHx: Asthma; Chronic Back pain; Diabetes - IDDM: controlled; Emphysema; [place]; Parkinson's Disease; Seizure Disorder; - PSHx: none; - Social history: Smoking status: Patient states was never smoker of tobacco. No barriers to communication noted, The patient speaks fluent Icelandic, Speaks appropriately for age. - Family history: Not pertinent. - : The pt / caregiver states he / she is not on anticoagulants. Home medication list is obtained from the patient. - Exposure Risk Screening:: None identified. Vital Signs: 05/05 19:54 BP 123 / 73; Pulse 84; Resp 18; Temp 97.8(O); Pulse Ox 94% on R/A; Weight 72.57 kg / jo3 159.99 lbs; Height 5 ft. 8 in. (172.72 cm); 21:56 BP 111 / 57; Pulse 81; Resp 18; Temp 99.0(TE); Pulse Ox 95% on R/A; Pain 10/10; daryl 19:54 Body Mass Index 24.33 (72.57 kg, 172.72 cm) jo3 MDM: 20:13 ketorolac 60 mg IM once ordered. cs11 20:13 Shoulder, Complete Ordered. EDMS 21:53 traMADol 50 mg PO once ordered. cs11 05/06 18:02 T-Sheet-- Draft Copy was scanned into [employer] and attached to record. klr Administered Medications: 05/05 20:20 Drug: ketorolac 60 mg [ketorolac 30 mg/mL (1 mL) injection solution (2 mL)] Route: IM; jo3 Site: left gluteus; 22:03 Drug: traMADol 50 mg [tramadol 50 mg tablet (1 tabs)] Route: PO; boogie Signatures: Dispatcher [employer] EDMS Bernadine Leon RN RN jo3 Immanuel Chen DO DO cs11 Gulshan Stephens RN RN mb9 Ella Helm klblanca The chart was reviewed and I authenticate all verbal orders and agree with the evaluation and treatment provided.Corrections: (The following items were deleted from the chart) 19:59 19:49 Allergies: Aspirin; jo3 jo3 Attachments: 05/06 18:02 T-Sheet-- Draft Copy klr Chart Complete MTDD
== END 2016-05-05 22:06 | disposition home or self-care (01) ==
LOC: M ED 19:28
DX: M25.512 Pain in left shoulder (principal); G89.29 Other chronic pain; E11.9 Type 2 diabetes mellitus without complications; I10 Essential (primary) hypertension; J44.9 Chronic obstructive pulmonary disease, unspecified; G20 Parkinson's disease; G40.909 Epilepsy, unspecified, not intractable, without status epilepticus; Z86.73 Personal history of transient ischemic attack (TIA), and cerebral infarction without residual deficits; Z79.899 Other long term (current) drug therapy; Z79.84 Long term (current) use of oral hypoglycemic drugs; Z79.4 Long term (current) use of insulin; Z88.0 Allergy status to penicillin; Z88.6 Allergy status to analgesic agent; Z88.8 Allergy status to other drugs, medicaments and biological substances; F17.210 Nicotine dependence, cigarettes, uncomplicated
CPT/HCPCS: 73030; 96372; 99283; J1885

== ENCOUNTER 2016-05-16 09:59 | Emergency (ER) | payer MEDICARE, MEDICAID ==
--- NOTE | 2016-05-16 11:50 | REP ---
Left ankle series: Four views. History: Left ankle injury. Findings: Ankle mortise is intact. There is mild medial malleolar spurring. Vascular calcification is noted. There is mild Achilles calcaneal spurring. No fracture is seen. Impression: Vascular calcification and mild spurring. No acute bony abnormality. Signed by Gerardo Key MD 05/16/2016 02:24 P
--- NOTE | 2016-05-16 11:50 | REP ---
Left elbow series: Four views. History: Left elbow pain. Injury. Findings: Four views of the left elbow demonstrate no evidence of fracture, subluxation or joint effusion. There is mild medial epicondylar spurring and dystrophic soft-tissue calcification is seen adjacent the coronoid process. Impression: No fracture, subluxation or joint effusion seen. Medial epicondylar spurring and small dystrophic calcification adjacent to the coronoid process. Signed by Gerardo Key MD 05/16/2016 02:24 P
[2016-05-16] MEDS ORDERED: traMADol 50 MG TAB As Ordered ONE (12:06)
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
--- NOTE | 2016-05-18 13:18 | EDDOCDS ---
Physician Documentation [facility] Name: Donny Hurd Age: 61 yrs Sex: Male : 1955 Arrival Date: 05/16/2016 Time: 09:59 Bed 17 Private MD: Gonzalez Rob Disposition: 05/16/16 11:56 Discharged to Home/Self Care. Impression: Contusion of left ankle, Contusion of left elbow, Fall from motorized mobility scooter. - Condition is Stable. - Discharge Instructions: Contusion. - Medication Reconciliation, Local Pharmacy Hours form. - Follow up: Emergency Department; When: As needed; Reason: Worsening of conditions. Follow up: Private Physician; When: 2 - 3 days; Reason: Wound/Symptom Recheck, Recheck today's complaints, Continuance of care. - Problem is new. - Symptoms are unchanged. - Notes: THERE WERE NO FRACTURES ON YOUR XRAYS TODAY. PLEASE FOLLOW UP WITH YOUR PRIMARY CARE PROVIDER IN THE NEXT COUPLE DAYS TO REASSESS YOUR SYMPTOMS. Historical: - Allergies: Benadryl (Hives); LITHIUM DERIVITIVES (Hives); Mellaril; Motrin; Paxil (Hives); PENICILLINS (Anaphylaxis); thorazine (Hives); tylenol; - Home Meds: 1. 02 at 3lpm as needed 2. albuterol sulfate 2.5 mg /3 mL (0.083 %) Inhl nebu every 6 hours 3. aspirin 81 mg Oral tab 1 tab once daily 4. gabapentin 100 mg Oral cap 1 caps 3 times per day 5. glimepiride 4 mg Oral tab 1 tab once daily 6. Lantus 100 unit/mL Sub-Q soln 20 unit nightly 7. levetiracetam 1,000 mg oral tab 1 tab every 12 hours 8. metformin 500 mg Oral tab 2 times per day 9. Nexium 40 mg Oral cpDR 1 cap once daily 10. nitroglycerin 0.4 mg SL subl 1 tab every 5 minutes for Angina 11. ramipril 1.25 mg Oral cap 1 cap once daily 12. Spiriva with HandiHaler 18 mcg Inhl CpDv 1 cap once daily 13. topiramate 50 mg oral CSpX 1 cap twice a day 14. trazodone 100 mg Oral tab nightly 15. umeclidinium 62.5 mcg/actuation inhalation dsdv once daily - PMHx: Asthma; Chronic Back pain; Diabetes - IDDM: controlled; Emphysema; [place]; Parkinson's Disease; Seizure Disorder; - PSHx: none; - Social history: Smoking status: Patient states former smoker of tobacco. No barriers to communication noted, The patient speaks fluent Guatemalan, Speaks appropriately for age. - Family history: Not pertinent. - : The pt / caregiver states he / she is not on anticoagulants. Home medication list is obtained from the patient. - Exposure Risk Screening:: None identified. Vital Signs: 05/16 10:15 BP 119 / 79; Pulse 73; Resp 20; Pulse Ox 98% on R/A; Weight 70.31 kg / 155.01 lbs (R); nb2 Height 5 ft. 8 in. (172.72 cm) (R); Pain 10/10; 10:16 Temp 97.4(TE); nb2 12:16 BP 115 / 82; Pulse 85; Resp 17; Temp 96.3(TE); Pulse Ox 97% on R/A; Pain 5/10; mb9 10:15 Body Mass Index 23.57 (70.31 kg, 172.72 cm) nb2 MDM: 11:02 Misc. Nursing Order ordered. dt4 11:02 Elbow, Complete Ordered. EDMS 11:04 Ankle, Complete Ordered. EDMS 11:55 Ice Pack ordered. dt4 11:55 traMADol 25 mg PO once ordered. dt4 05/17 12:42 T-Sheet-- Draft Copy was scanned into [employer] and attached to record. gb Administered Medications: 05/16 12:16 Drug: traMADol 25 mg [tramadol 50 mg tablet (0.5 tabs)] Route: PO; boogie Signatures: Dispatcher [employer] EDRaffaele Pedraza RN RN bcj Barnhardt, Gloria, Reg Reg gb Allison Fregoso PA-C PA-C dt4 Gulshan Stephens RN RN mb9 The chart was reviewed and I authenticate all verbal orders and agree with the evaluation and treatment provided.Attachments: 05/17 12:42 T-Sheet-- Draft Copy gb Chart Complete MTDD
--- NOTE | 2016-05-18 13:18 | EDDOCDS ---
Physician Documentation [facility] Name: Donny Hurd Age: 61 yrs Sex: Male : 1955 Arrival Date: 05/16/2016 Time: 09:59 Bed 17 Private MD: Gonzalez Rob Disposition: 05/16/16 11:56 Discharged to Home/Self Care. Impression: Contusion of left ankle, Contusion of left elbow, Fall from motorized mobility scooter. - Condition is Stable. - Discharge Instructions: Contusion. - Medication Reconciliation, Local Pharmacy Hours form. - Follow up: Emergency Department; When: As needed; Reason: Worsening of conditions. Follow up: Private Physician; When: 2 - 3 days; Reason: Wound/Symptom Recheck, Recheck today's complaints, Continuance of care. - Problem is new. - Symptoms are unchanged. - Notes: THERE WERE NO FRACTURES ON YOUR XRAYS TODAY. PLEASE FOLLOW UP WITH YOUR PRIMARY CARE PROVIDER IN THE NEXT COUPLE DAYS TO REASSESS YOUR SYMPTOMS. Historical: - Allergies: Benadryl (Hives); LITHIUM DERIVITIVES (Hives); Mellaril; Motrin; Paxil (Hives); PENICILLINS (Anaphylaxis); thorazine (Hives); tylenol; - Home Meds: 1. 02 at 3lpm as needed 2. albuterol sulfate 2.5 mg /3 mL (0.083 %) Inhl nebu every 6 hours 3. aspirin 81 mg Oral tab 1 tab once daily 4. gabapentin 100 mg Oral cap 1 caps 3 times per day 5. glimepiride 4 mg Oral tab 1 tab once daily 6. Lantus 100 unit/mL Sub-Q soln 20 unit nightly 7. levetiracetam 1,000 mg oral tab 1 tab every 12 hours 8. metformin 500 mg Oral tab 2 times per day 9. Nexium 40 mg Oral cpDR 1 cap once daily 10. nitroglycerin 0.4 mg SL subl 1 tab every 5 minutes for Angina 11. ramipril 1.25 mg Oral cap 1 cap once daily 12. Spiriva with HandiHaler 18 mcg Inhl CpDv 1 cap once daily 13. topiramate 50 mg oral CSpX 1 cap twice a day 14. trazodone 100 mg Oral tab nightly 15. umeclidinium 62.5 mcg/actuation inhalation dsdv once daily - PMHx: Asthma; Chronic Back pain; Diabetes - IDDM: controlled; Emphysema; [place]; Parkinson's Disease; Seizure Disorder; - PSHx: none; - Social history: Smoking status: Patient states former smoker of tobacco. No barriers to communication noted, The patient speaks fluent Tristanian, Speaks appropriately for age. - Family history: Not pertinent. - : The pt / caregiver states he / she is not on anticoagulants. Home medication list is obtained from the patient. - Exposure Risk Screening:: None identified. Vital Signs: 05/16 10:15 BP 119 / 79; Pulse 73; Resp 20; Pulse Ox 98% on R/A; Weight 70.31 kg / 155.01 lbs (R); nb2 Height 5 ft. 8 in. (172.72 cm) (R); Pain 10/10; 10:16 Temp 97.4(TE); nb2 12:16 BP 115 / 82; Pulse 85; Resp 17; Temp 96.3(TE); Pulse Ox 97% on R/A; Pain 5/10; mb9 10:15 Body Mass Index 23.57 (70.31 kg, 172.72 cm) nb2 MDM: 11:02 Misc. Nursing Order ordered. dt4 11:02 Elbow, Complete Ordered. EDMS 11:04 Ankle, Complete Ordered. EDMS 11:55 Ice Pack ordered. dt4 11:55 traMADol 25 mg PO once ordered. dt4 05/17 12:42 T-Sheet-- Draft Copy was scanned into [employer] and attached to record. gb Administered Medications: 05/16 12:16 Drug: traMADol 25 mg [tramadol 50 mg tablet (0.5 tabs)] Route: PO; boogie Signatures: Dispatcher [employer] EDRaffaele Pedraza RN RN bcj Barnhardt, Gloria, Reg Reg gb Allison Fregoso PA-C PA-C dt4 Gulshan Stephens RN RN mb9 The chart was reviewed and I authenticate all verbal orders and agree with the evaluation and treatment provided.Attachments: 05/17 12:42 T-Sheet-- Draft Copy gb Chart Complete MTDD
== END 2016-05-16 12:18 | disposition home or self-care (01) ==
LOC: M ED 09:59
DX: S90.02XA Contusion of left ankle, initial encounter (principal); S50.02XA Contusion of left elbow, initial encounter; V00.818A Other accident with wheelchair (powered), initial encounter; Y92.410 Unspecified street and highway as the place of occurrence of the external cause; Y93.89 Activity, other specified; Y99.8 Other external cause status; J45.909 Unspecified asthma, uncomplicated; M54.9 Dorsalgia, unspecified; E11.9 Type 2 diabetes mellitus without complications; J43.9 Emphysema, unspecified; I25.2 Old myocardial infarction; G20 Parkinson's disease; G40.909 Epilepsy, unspecified, not intractable, without status epilepticus; Z87.891 Personal history of nicotine dependence; Z79.51 Long term (current) use of inhaled steroids; Z79.82 Long term (current) use of aspirin; Z79.84 Long term (current) use of oral hypoglycemic drugs; Z79.4 Long term (current) use of insulin; Z79.899 Other long term (current) drug therapy; Z88.8 Allergy status to other drugs, medicaments and biological substances; Z88.6 Allergy status to analgesic agent; Z88.0 Allergy status to penicillin

== ENCOUNTER 2016-05-23 22:46 | Emergency (ER) | payer MEDICARE, MEDICAID ==
[2016-05-23] MEDS ORDERED: predniSONE 20 MG TAB As Ordered ONE (23:57)
[2016-05-23] MEDS ORDERED: diphenhydrAMINE 25 MG CAP As Ordered ONE (23:57)
--- NOTE | 2016-05-24 00:44 | EDDOCDS ---
Nurse's Notes [facility] Name: Donny Hurd Age: 61 yrs Sex: Male : 1955 Arrival Date: 05/23/2016 Time: 22:46 Bed TR8 Private MD: No Pcp Diagnosis: Atopic dermatitis Presentation: 05/23 22:50 Presenting complaint: Patient states: rash all over his body that started "after the nn1 doctor gave me the antibiotic a month ago". States the antibiotic was for "my itching problem". Onset: The symptoms/episode began/occurred 1 month(s) ago. This patient has not experienced a previous allergic reaction. Anaphylaxis evaluation, the patient reports or I have noted the following symptoms which indicate a significant risk of anaphylaxis: lightheadedness shortness of breath. Adult Sepsis Screening: The patient does not have new or worsening altered mentation. Patient's respiratory rate is less than 22. Systolic blood pressure is greater than 100. Patient has a qSOFA score of 0- Negative Sepsis Screen. Suicide/Homicide risk assessment- the patient denies having any suicidal and/or homicidal ideations and does not present with any other emotional, behavioral or mental health complaints. Status: Patient is not a agricultural services director or dependent. Transition of care: patient was not received from another setting of care. 22:50 Acuity: TONO Level 4 nn1 22:50 Method Of Arrival: Wheelchair nn1 Triage Assessment: 22:55 General: Appears in no apparent distress, comfortable, Behavior is appropriate for age, nn1 cooperative. Pain: Location: "everywhere" Pain currently is 10 out of 10 on a pain scale. Quality of pain is described as burning, itching. HIV screening NA for this visit Offered previously. Neurological: Level of Consciousness is awake, alert, obeys commands. Respiratory: Airway is patent Respiratory effort is even, unlabored, Respiratory pattern is regular, symmetrical, Reports shortness of breath at rest. Derm: Small sores noted throughout arms, patient reports this is from "scratching until i bleed". Historical: - Allergies: Benadryl (Hives); LITHIUM DERIVITIVES (Hives); Mellaril; Motrin; Paxil (Hives); PENICILLINS (Anaphylaxis); thorazine (Hives); tylenol; - Home Meds: 1. 02 at 3lpm as needed 2. albuterol sulfate 2.5 mg /3 mL (0.083 %) Inhl nebu every 6 hours 3. aspirin 81 mg Oral tab 1 tab once daily 4. gabapentin 100 mg Oral cap 1 caps 3 times per day 5. glimepiride 4 mg Oral tab 1 tab once daily 6. Lantus 100 unit/mL Sub-Q soln 20 unit nightly 7. levetiracetam 1,000 mg oral tab 1 tab every 12 hours 8. metformin 500 mg Oral tab 2 times per day 9. Nexium 40 mg Oral cpDR 1 cap once daily 10. nitroglycerin 0.4 mg SL subl 1 tab every 5 minutes for Angina 11. ramipril 1.25 mg Oral cap 1 cap once daily 12. Spiriva with HandiHaler 18 mcg Inhl CpDv 1 cap once daily 13. topiramate 50 mg oral CSpX 1 cap twice a day 14. trazodone 100 mg Oral tab nightly 15. umeclidinium 62.5 mcg/actuation inhalation dsdv once daily - PMHx: Asthma; Chronic Back pain; Diabetes - IDDM: controlled; Emphysema; [place]; Parkinson's Disease; Seizure Disorder; - PSHx: none; - Social history: Smoking status: Patient uses tobacco products, heavy tobacco smoker. No barriers to communication noted, The patient speaks fluent Mauritian, Speaks appropriately for age. - Family history: Not pertinent. - : The pt / caregiver states he / she is not on anticoagulants. Home medication list is obtained from the patient. - Exposure Risk Screening:: None identified. Screenin:54 Infection Control. gr2 05/24 00:00 Screening information is obtained from the patient. Fall risk: At risk due to kmg1 immobility. Assistance ADL's: requires no assistance with activities of daily living. Abuse/DV Screen: The patient / caregiver reports he/she is: not in a situation that causes fear, pain or injury. Nutritional screening: No deficits noted. Advance Directives: There is no active DNR order. home support is adequate. Assessment: 00:00 General: Appears in no apparent distress, comfortable, Behavior is appropriate for age, kmg1 cooperative, pleasant. Pain: Denies pain. Respiratory: Airway is patent Respiratory effort is even, unlabored, Respiratory pattern is regular, symmetrical, Breath sounds are clear bilaterally. Derm: Rash noted that is macular, raised. Vital Signs: 02 22:48 BP 165 / 91; Pulse 82; Resp 18 S; Temp 95.4(T); Pulse Ox 93% on R/A; Weight 69.85 kg gr2 (R); Height 5 ft. 8 in. (172.72 cm) (R); Pain 0/10; 22:48 Body Mass Index 23.42 (69.85 kg, 172.72 cm) gr2 Vitals: 22:48 Log In Time: May 23, 2016 at 22:48. gr2 ED Course: 22:47 Patient visited by Kiran Germain. gr2 22:47 Patient moved to Waiting gr2 22:48 No Pcp is Private Physician. gr2 22:49 Patient visited by Kiran Germain. gr2 22:50 Patient moved to Pre RCE gr2 22:52 Triage Initiated nn1 23:17 Patient moved to Triage 3 nn1 23:21 Gulshan Mahan PA is PHCP. mo1 23:21 Joseph Sanchez MD is Attending Physician. mo1 23:40 Patient visited by Gulshan Mahan PA. mo1 23:42 [facility] is Referral Physician. mo1 05/24 00:00 The patient / caregiver is instructed regarding the plan of care and ED course. kmg1 00:00 No IV's were initiated during this patient's visit. No procedures done that require kmg1 assistance. 00:05 Patient moved to [facility] kmg1 00:32 [facility] Payment Agreement was scanned into [employer] and attached to record. hs2 Administered Medications: 00:00 Drug: predniSONE 40 mg [prednisone 20 mg tablet (2 tabs)] Route: PO; kmg1 00:00 Drug: diphenhydrAMINE 25 mg [diphenhydramine 25 mg capsule (1 caps)] Route: PO; kmg1 Order Results: There are currently no results for this order. Outcome: 05/23 23:43 Discharge ordered by Provider. mo1 05/24 00:00 Discharge Assessment: Patient awake, alert and oriented x 3. No cognitive and/or kmg1 functional deficits noted. Patient verbalized understanding of disposition instructions. Patient awake and alert. patient administered narcotics - no. The following High Risk Discharge criteria are identified: None. Discharged to home via wheelchair. Condition: stable. Discharge instructions given to patient, Instructed on discharge instructions, follow up and referral plans. medication usage, Demonstrated understanding of instructions, medications, Pt was receptive of discharge instructions/ teaching. Prescriptions given X 2. No special radiology studies were completed. Property sent home with patient. 00:43 Patient left the ED. kmg1 Signatures: Caty Bentley RN RN kmg1 Kiran Germain gr2 Gulshan Mahan PA PA Daniela Laird RN RN nn1 Neeru Lew, Reg Reg hs2 MTDD
--- NOTE | 2016-05-24 00:45 | EDDOCDS ---
Physician Documentation [facility] Name: Donny Hurd Age: 61 yrs Sex: Male : 1955 Arrival Date: 05/23/2016 Time: 22:46 Bed TR8 Private MD: No Pcp Disposition: 05/23/16 23:43 Discharged to Home/Self Care. Impression: Atopic dermatitis. - Condition is Stable. - Discharge Instructions: Rash. - Prescriptions for Prednisone 20 mg Oral Tablet - take 1 tablet by ORAL route once daily for 5 days; 5 tablet. Benadryl 25 mg Oral Capsule - take 1 capsule by ORAL route every 6 hours As needed; 30 tablet. - Medication Reconciliation, Local Pharmacy Hours form. - Follow up: [facility]; When: Call to arrange an appointment; Reason: Recheck today's complaints, Continuance of care. - Problem is new. - Symptoms are unchanged. Historical: - Allergies: Benadryl (Hives); LITHIUM DERIVITIVES (Hives); Mellaril; Motrin; Paxil (Hives); PENICILLINS (Anaphylaxis); thorazine (Hives); tylenol; - Home Meds: 1. 02 at 3lpm as needed 2. albuterol sulfate 2.5 mg /3 mL (0.083 %) Inhl nebu every 6 hours 3. aspirin 81 mg Oral tab 1 tab once daily 4. gabapentin 100 mg Oral cap 1 caps 3 times per day 5. glimepiride 4 mg Oral tab 1 tab once daily 6. Lantus 100 unit/mL Sub-Q soln 20 unit nightly 7. levetiracetam 1,000 mg oral tab 1 tab every 12 hours 8. metformin 500 mg Oral tab 2 times per day 9. Nexium 40 mg Oral cpDR 1 cap once daily 10. nitroglycerin 0.4 mg SL subl 1 tab every 5 minutes for Angina 11. ramipril 1.25 mg Oral cap 1 cap once daily 12. Spiriva with HandiHaler 18 mcg Inhl CpDv 1 cap once daily 13. topiramate 50 mg oral CSpX 1 cap twice a day 14. trazodone 100 mg Oral tab nightly 15. umeclidinium 62.5 mcg/actuation inhalation dsdv once daily - PMHx: Asthma; Chronic Back pain; Diabetes - IDDM: controlled; Emphysema; [place]; Parkinson's Disease; Seizure Disorder; - PSHx: none; - Social history: Smoking status: Patient uses tobacco products, heavy tobacco smoker. No barriers to communication noted, The patient speaks fluent French, Speaks appropriately for age. - Family history: Not pertinent. - : The pt / caregiver states he / she is not on anticoagulants. Home medication list is obtained from the patient. - Exposure Risk Screening:: None identified. Vital Signs: 05/23 22:48 BP 165 / 91; Pulse 82; Resp 18 S; Temp 95.4(T); Pulse Ox 93% on R/A; Weight 69.85 kg / gr2 153.99 lbs (R); Height 5 ft. 8 in. (172.72 cm) (R); Pain 0/10; 22:48 Body Mass Index 23.42 (69.85 kg, 172.72 cm) gr2 MDM: 23:32 predniSONE 40 mg PO once; administer with food or milk ordered. mo1 23:32 diphenhydrAMINE 25 mg PO once ordered. mo1 23:49 Financial registration complete. pm4 05/24 00:32 [facility] Payment Agreement was scanned into [employer] and attached to record. hs2 Administered Medications: 00:00 Drug: predniSONE 40 mg [prednisone 20 mg tablet (2 tabs)] Route: PO; kmg1 00:00 Drug: diphenhydrAMINE 25 mg [diphenhydramine 25 mg capsule (1 caps)] Route: PO; kmg1 Signatures: Caty Bentley RN RN kmg1 Gulshan Mahan PA PA mo1 Daniela Brower RN RN nn1 Neeru Lew, Reg Reg hs2 Joe Arellano, Reg Reg pm4 The chart was reviewed and I authenticate all verbal orders and agree with the evaluation and treatment provided.Attachments: 00:32 [facility] Payment Agreement hs2 [facility]
--- NOTE | 2016-05-26 01:44 | EDDOCDS ---
Nurse's Notes [facility] Name: Donny Hurd Age: 61 yrs Sex: Male : 1955 Arrival Date: 05/23/2016 Time: 22:46 Bed TR8 Private MD: No Pcp Diagnosis: Atopic dermatitis Presentation: 05/23 22:50 Presenting complaint: Patient states: rash all over his body that started "after the nn1 doctor gave me the antibiotic a month ago". States the antibiotic was for "my itching problem". Onset: The symptoms/episode began/occurred 1 month(s) ago. This patient has not experienced a previous allergic reaction. Anaphylaxis evaluation, the patient reports or I have noted the following symptoms which indicate a significant risk of anaphylaxis: lightheadedness shortness of breath. Adult Sepsis Screening: The patient does not have new or worsening altered mentation. Patient's respiratory rate is less than 22. Systolic blood pressure is greater than 100. Patient has a qSOFA score of 0- Negative Sepsis Screen. Suicide/Homicide risk assessment- the patient denies having any suicidal and/or homicidal ideations and does not present with any other emotional, behavioral or mental health complaints. Status: Patient is not a environmental services specialist or dependent. Transition of care: patient was not received from another setting of care. 22:50 Acuity: TONO Level 4 nn1 22:50 Method Of Arrival: Wheelchair nn1 Triage Assessment: 22:55 General: Appears in no apparent distress, comfortable, Behavior is appropriate for age, nn1 cooperative. Pain: Location: "everywhere" Pain currently is 10 out of 10 on a pain scale. Quality of pain is described as burning, itching. HIV screening NA for this visit Offered previously. Neurological: Level of Consciousness is awake, alert, obeys commands. Respiratory: Airway is patent Respiratory effort is even, unlabored, Respiratory pattern is regular, symmetrical, Reports shortness of breath at rest. Derm: Small sores noted throughout arms, patient reports this is from "scratching until i bleed". Historical: - Allergies: Benadryl (Hives); LITHIUM DERIVITIVES (Hives); Mellaril; Motrin; Paxil (Hives); PENICILLINS (Anaphylaxis); thorazine (Hives); tylenol; - Home Meds: 1. 02 at 3lpm as needed 2. albuterol sulfate 2.5 mg /3 mL (0.083 %) Inhl nebu every 6 hours 3. aspirin 81 mg Oral tab 1 tab once daily 4. gabapentin 100 mg Oral cap 1 caps 3 times per day 5. glimepiride 4 mg Oral tab 1 tab once daily 6. Lantus 100 unit/mL Sub-Q soln 20 unit nightly 7. levetiracetam 1,000 mg oral tab 1 tab every 12 hours 8. metformin 500 mg Oral tab 2 times per day 9. Nexium 40 mg Oral cpDR 1 cap once daily 10. nitroglycerin 0.4 mg SL subl 1 tab every 5 minutes for Angina 11. ramipril 1.25 mg Oral cap 1 cap once daily 12. Spiriva with HandiHaler 18 mcg Inhl CpDv 1 cap once daily 13. topiramate 50 mg oral CSpX 1 cap twice a day 14. trazodone 100 mg Oral tab nightly 15. umeclidinium 62.5 mcg/actuation inhalation dsdv once daily - PMHx: Asthma; Chronic Back pain; Diabetes - IDDM: controlled; Emphysema; [place]; Parkinson's Disease; Seizure Disorder; - PSHx: none; - Social history: Smoking status: Patient uses tobacco products, heavy tobacco smoker. No barriers to communication noted, The patient speaks fluent Malian, Speaks appropriately for age. - Family history: Not pertinent. - : The pt / caregiver states he / she is not on anticoagulants. Home medication list is obtained from the patient. - Exposure Risk Screening:: None identified. Screenin:54 Infection Control. gr2 05/24 00:00 Screening information is obtained from the patient. Fall risk: At risk due to kmg1 immobility. Assistance ADL's: requires no assistance with activities of daily living. Abuse/DV Screen: The patient / caregiver reports he/she is: not in a situation that causes fear, pain or injury. Nutritional screening: No deficits noted. Advance Directives: There is no active DNR order. home support is adequate. Assessment: 00:00 General: Appears in no apparent distress, comfortable, Behavior is appropriate for age, kmg1 cooperative, pleasant. Pain: Denies pain. Respiratory: Airway is patent Respiratory effort is even, unlabored, Respiratory pattern is regular, symmetrical, Breath sounds are clear bilaterally. Derm: Rash noted that is macular, raised. Vital Signs: 02 22:48 BP 165 / 91; Pulse 82; Resp 18 S; Temp 95.4(T); Pulse Ox 93% on R/A; Weight 69.85 kg gr2 (R); Height 5 ft. 8 in. (172.72 cm) (R); Pain 0/10; 22:48 Body Mass Index 23.42 (69.85 kg, 172.72 cm) gr2 Vitals: 22:48 Log In Time: May 23, 2016 at 22:48. gr2 ED Course: 22:47 Patient visited by Kiran Germain. gr2 22:47 Patient moved to Waiting gr2 22:48 No Pcp is Private Physician. gr2 22:49 Patient visited by Kiran Germain. gr2 22:50 Patient moved to Pre RCE gr2 22:52 Triage Initiated nn1 23:17 Patient moved to Triage 3 nn1 23:21 Gulshan Mahan PA is PHCP. mo1 23:21 Joseph Sanchez MD is Attending Physician. mo1 23:40 Patient visited by Gulshan Mahan PA. mo1 23:42 [facility] is Referral Physician. mo1 05/24 00:00 The patient / caregiver is instructed regarding the plan of care and ED course. kmg1 00:00 No IV's were initiated during this patient's visit. No procedures done that require kmg1 assistance. 00:05 Patient moved to 8 kmg1 00:32 [facility] Payment Agreement was scanned into [employer] and attached to record. hs2 13:27 T-Sheet-- Draft Copy was scanned into [employer] and attached to record. gb Administered Medications: 00:00 Drug: predniSONE 40 mg [prednisone 20 mg tablet (2 tabs)] Route: PO; kmg1 00:00 Drug: diphenhydrAMINE 25 mg [diphenhydramine 25 mg capsule (1 caps)] Route: PO; kmg1 Order Results: There are currently no results for this order. Outcome: 05/23 23:43 Discharge ordered by Provider. mo1 05/24 00:00 Discharge Assessment: Patient awake, alert and oriented x 3. No cognitive and/or kmg1 functional deficits noted. Patient verbalized understanding of disposition instructions. Patient awake and alert. patient administered narcotics - no. The following High Risk Discharge criteria are identified: None. Discharged to home via wheelchair. Condition: stable. Discharge instructions given to patient, Instructed on discharge instructions, follow up and referral plans. medication usage, Demonstrated understanding of instructions, medications, Pt was receptive of discharge instructions/ teaching. Prescriptions given X 2. No special radiology studies were completed. Property sent home with patient. 00:43 Patient left the ED. [facility] Signatures: Caty Bentley, RN RN kmg1 Rebecca Veronica, Reg Reg gb Kiran Germain gr2 Gulshan Mahan PA PA [email or web address] Daniela BrowerRN RN nn1 Neeru Lew, Reg Reg hs2 Chart Complete MTDD
--- NOTE | 2016-05-26 01:44 | EDDOCDS ---
Physician Documentation [facility] Name: Donny Hurd Age: 61 yrs Sex: Male : 1955 Arrival Date: 05/23/2016 Time: 22:46 Bed TR8 Private MD: No Pcp Disposition: 05/23/16 23:43 Discharged to Home/Self Care. Impression: Atopic dermatitis. - Condition is Stable. - Discharge Instructions: Rash. - Prescriptions for Prednisone 20 mg Oral Tablet - take 1 tablet by ORAL route once daily for 5 days; 5 tablet. Benadryl 25 mg Oral Capsule - take 1 capsule by ORAL route every 6 hours As needed; 30 tablet. - Medication Reconciliation, Local Pharmacy Hours form. - [facility]; When: Call to arrange an appointment; Reason: Recheck today's complaints, Continuance of care. - Problem is new. - Symptoms are unchanged. Historical: - Allergies: Benadryl (Hives); LITHIUM DERIVITIVES (Hives); Mellaril; Motrin; Paxil (Hives); PENICILLINS (Anaphylaxis); thorazine (Hives); tylenol; - Home Meds: 1. 02 at 3lpm as needed 2. albuterol sulfate 2.5 mg /3 mL (0.083 %) Inhl nebu every 6 hours 3. aspirin 81 mg Oral tab 1 tab once daily 4. gabapentin 100 mg Oral cap 1 caps 3 times per day 5. glimepiride 4 mg Oral tab 1 tab once daily 6. Lantus 100 unit/mL Sub-Q soln 20 unit nightly 7. levetiracetam 1,000 mg oral tab 1 tab every 12 hours 8. metformin 500 mg Oral tab 2 times per day 9. Nexium 40 mg Oral cpDR 1 cap once daily 10. nitroglycerin 0.4 mg SL subl 1 tab every 5 minutes for Angina 11. ramipril 1.25 mg Oral cap 1 cap once daily 12. Spiriva with HandiHaler 18 mcg Inhl CpDv 1 cap once daily 13. topiramate 50 mg oral CSpX 1 cap twice a day 14. trazodone 100 mg Oral tab nightly 15. umeclidinium 62.5 mcg/actuation inhalation dsdv once daily - PMHx: Asthma; Chronic Back pain; Diabetes - IDDM: controlled; Emphysema; [place]; Parkinson's Disease; Seizure Disorder; - PSHx: none; - Social history: Smoking status: Patient uses tobacco products, heavy tobacco smoker. No barriers to communication noted, The patient speaks fluent Malaysian, Speaks appropriately for age. - Family history: Not pertinent. - : The pt / caregiver states he / she is not on anticoagulants. Home medication list is obtained from the patient. - Exposure Risk Screening:: None identified. Vital Signs: 05/23 22:48 BP 165 / 91; Pulse 82; Resp 18 S; Temp 95.4(T); Pulse Ox 93% on R/A; Weight 69.85 kg / gr2 153.99 lbs (R); Height 5 ft. 8 in. (172.72 cm) (R); Pain 0/10; 22:48 Body Mass Index 23.42 (69.85 kg, 172.72 cm) gr2 MDM: 23:32 predniSONE 40 mg PO once; administer with food or milk ordered. mo1 23:32 diphenhydrAMINE 25 mg PO once ordered. mo1 23:49 Financial registration complete. pm4 05/24 00:32 [facility] Payment Agreement was scanned into [employer] and attached to record. hs2 13:27 T-Sheet-- Draft Copy was scanned into [employer] and attached to record. gb Administered Medications: 00:00 Drug: predniSONE 40 mg [prednisone 20 mg tablet (2 tabs)] Route: PO; kmg1 00:00 Drug: diphenhydrAMINE 25 mg [diphenhydramine 25 mg capsule (1 caps)] Route: PO; kmg1 Signatures: Caty Bentley RN RN kmg1 Rebecca Veronica, Reg Reg gb Gulshan Mahan PA PA mo1 Daniela Brower RN RN nn1 Neeru Lew, Reg Reg hs2 Joe Arellano, Reg Reg pm4 The chart was reviewed and I authenticate all verbal orders and agree with the evaluation and treatment provided.Attachments: 00:32 [facility] Payment Agreement hs2 13:27 T-Sheet-- Draft Copy gb Chart Complete MTDD
--- NOTE | 2016-05-26 01:44 | EDDOCDS ---
Physician Documentation [facility] Name: Donny Hurd Age: 61 yrs Sex: Male : 1955 Arrival Date: 05/23/2016 Time: 22:46 Bed TR8 Private MD: No Pcp Disposition: 05/23/16 23:43 Discharged to Home/Self Care. Impression: Atopic dermatitis. - Condition is Stable. - Discharge Instructions: Rash. - Prescriptions for Prednisone 20 mg Oral Tablet - take 1 tablet by ORAL route once daily for 5 days; 5 tablet. Benadryl 25 mg Oral Capsule - take 1 capsule by ORAL route every 6 hours As needed; 30 tablet. - Medication Reconciliation, Local Pharmacy Hours form. - [facility] up: [facility]; When: Call to arrange an appointment; Reason: Recheck today's complaints, Continuance of care. - Problem is new. - Symptoms are unchanged. Historical: - Allergies: Benadryl (Hives); LITHIUM DERIVITIVES (Hives); Mellaril; Motrin; Paxil (Hives); PENICILLINS (Anaphylaxis); thorazine (Hives); tylenol; - Home Meds: 1. 02 at 3lpm as needed 2. albuterol sulfate 2.5 mg /3 mL (0.083 %) Inhl nebu every 6 hours 3. aspirin 81 mg Oral tab 1 tab once daily 4. gabapentin 100 mg Oral cap 1 caps 3 times per day 5. glimepiride 4 mg Oral tab 1 tab once daily 6. Lantus 100 unit/mL Sub-Q soln 20 unit nightly 7. levetiracetam 1,000 mg oral tab 1 tab every 12 hours 8. metformin 500 mg Oral tab 2 times per day 9. Nexium 40 mg Oral cpDR 1 cap once daily 10. nitroglycerin 0.4 mg SL subl 1 tab every 5 minutes for Angina 11. ramipril 1.25 mg Oral cap 1 cap once daily 12. Spiriva with HandiHaler 18 mcg Inhl CpDv 1 cap once daily 13. topiramate 50 mg oral CSpX 1 cap twice a day 14. trazodone 100 mg Oral tab nightly 15. umeclidinium 62.5 mcg/actuation inhalation dsdv once daily - PMHx: Asthma; Chronic Back pain; Diabetes - IDDM: controlled; Emphysema; [place]; Parkinson's Disease; Seizure Disorder; - PSHx: none; - Social history: Smoking status: Patient uses tobacco products, heavy tobacco smoker. No barriers to communication noted, The patient speaks fluent Guyanese, Speaks appropriately for age. - Family history: Not pertinent. - : The pt / caregiver states he / she is not on anticoagulants. Home medication list is obtained from the patient. - Exposure Risk Screening:: None identified. Vital Signs: 05/23 22:48 BP 165 / 91; Pulse 82; Resp 18 S; Temp 95.4(T); Pulse Ox 93% on R/A; Weight 69.85 kg / gr2 153.99 lbs (R); Height 5 ft. 8 in. (172.72 cm) (R); Pain 0/10; 22:48 Body Mass Index 23.42 (69.85 kg, 172.72 cm) gr2 MDM: 23:32 predniSONE 40 mg PO once; administer with food or milk ordered. mo1 23:32 diphenhydrAMINE 25 mg PO once ordered. mo1 23:49 Financial registration complete. pm4 05/24 00:32 [facility] Payment Agreement was scanned into [employer] and attached to record. hs2 13:27 T-Sheet-- Draft Copy was scanned into [employer] and attached to record. gb Administered Medications: 00:00 Drug: predniSONE 40 mg [prednisone 20 mg tablet (2 tabs)] Route: PO; kmg1 00:00 Drug: diphenhydrAMINE 25 mg [diphenhydramine 25 mg capsule (1 caps)] Route: PO; kmg1 Signatures: Caty Bentley RN RN kmg1 Rebecca Veronica, Reg Reg gb Gulshan Mahan PA PA mo1 Daniela Brower RN RN nn1 Neeru Lew, Reg Reg hs2 Joe Arellano, Reg Reg pm4 The chart was reviewed and I authenticate all verbal orders and agree with the evaluation and treatment provided.Attachments: 00:32 [facility] Payment Agreement hs2 13:27 T-Sheet-- Draft Copy gb Chart Complete MTDD
== END 2016-05-24 00:43 | disposition home or self-care (01) ==
LOC: M ED 22:46
DX: L20.9 Atopic dermatitis, unspecified (principal); J45.909 Unspecified asthma, uncomplicated; E11.9 Type 2 diabetes mellitus without complications; I25.2 Old myocardial infarction; G40.909 Epilepsy, unspecified, not intractable, without status epilepticus; F32.9 Major depressive disorder, single episode, unspecified; M54.5 Low back pain; L30.9 Dermatitis, unspecified; J43.9 Emphysema, unspecified; G20 Parkinson's disease; F17.210 Nicotine dependence, cigarettes, uncomplicated; Z79.899 Other long term (current) drug therapy; Z79.82 Long term (current) use of aspirin; Z79.84 Long term (current) use of oral hypoglycemic drugs; Z79.4 Long term (current) use of insulin; Z88.8 Allergy status to other drugs, medicaments and biological substances; Z88.0 Allergy status to penicillin; Z88.6 Allergy status to analgesic agent

== ENCOUNTER 2016-05-29 10:07 | Emergency (ER) | payer MEDICARE, MEDICAID ==
[2016-05-29] MEDS ORDERED: ACETAMINOPHEN 325 MG TAB As Ordered ONE (11:33)
--- NOTE | 2016-05-29 12:16 | REP ---
TWO VIEW CHEST: Two views of the chest are performed and compared to a prior study of 03/03/2016. There is no evidence of acute infiltrate or pulmonary edema. The heart is normal in size and there is calcification of the thoracic aorta. The mediastinal silhouette is unchanged. There are degenerative changes of the spine. IMPRESSION: No acute infiltrate. Signed by Tulio Poole MD 05/29/2016 12:32 P
--- NOTE | 2016-05-29 13:36 | EDDOCDS ---
Physician Documentation [facility] Name: Donny Hurd Age: 61 yrs Sex: Male : 1955 Arrival Date: 05/29/2016 Time: 10:07 Bed 17 Private MD: Disposition: 05/29 11:53 Critical Care: Critical care not applicable. pc Disposition: 05/29/16 12:00 Discharged to Home/Self Care. Impression: Acute upper respiratory infection, unspecified - viral. - Condition is Stable. - Discharge Instructions: Upper Respiratory Infection, Adult, Viral Infections. - Medication Reconciliation, Local Pharmacy Hours form. - Follow up: [facility] - [facility]; When: Call to arrange an appointment; Reason: Continuance of care. - Problem is an ongoing problem. - Symptoms are unchanged. - Notes: Use throat lozenges as needed. Drink plenty of fluids HPI: 11:53 This 61 yrs old Male presents to ER via Ambulance with complaints of pc Breathing Difficulty. 11:53 The history is obtained from the patient. He has had a cough and sore throat for 10 pc days or more. He denies any fevers or chills. He has COPD and is on home oxygen and has not needed to use more of his nebs or increase his oxygen. He has not seen his PCP for the same. The patient has experienced similar episodes in the past, several times. The patient has not recently seen a physician. Historical: - Allergies: Benadryl (Hives); LITHIUM DERIVITIVES (Hives); Mellaril; Motrin; Paxil (Hives); PENICILLINS (Anaphylaxis); thorazine (Hives); tylenol; - Home Meds: 1. 02 at 3lpm as needed 2. albuterol sulfate 2.5 mg /3 mL (0.083 %) Inhl nebu every 6 hours 3. aspirin 81 mg Oral tab 1 tab once daily 4. gabapentin 100 mg Oral cap 1 caps 3 times per day 5. glimepiride 4 mg Oral tab 1 tab once daily 6. Lantus 100 unit/mL Sub-Q soln 20 unit nightly 7. levetiracetam 1,000 mg oral tab 1 tab every 12 hours 8. metformin 500 mg Oral tab 2 times per day 9. Nexium 40 mg Oral cpDR 1 cap once daily 10. nitroglycerin 0.4 mg SL subl 1 tab every 5 minutes for Angina 11. ramipril 1.25 mg Oral cap 1 cap once daily 12. Spiriva with HandiHaler 18 mcg Inhl CpDv 1 cap once daily 13. topiramate 50 mg oral CSpX 1 cap twice a day 14. trazodone 100 mg Oral tab nightly 15. umeclidinium 62.5 mcg/actuation inhalation dsdv once daily - PMHx: Asthma; Chronic Back pain; Diabetes - IDDM: controlled; Emphysema; [place]; Parkinson's Disease; Seizure Disorder; - PSHx: none; - The history from nurses notes was reviewed: and I agree with what is documented. - Social history: Smoking status: Patient uses tobacco products, heavy tobacco smoker. No barriers to communication noted, The patient speaks fluent Bermudian, Speaks appropriately for age. - Family history: Not pertinent. - : The pt / caregiver states he / she is not on anticoagulants. Home medication list is obtained from the patient, [employer] import data. - Hospitalizations: : No recent hospitalization is reported. - Exposure Risk Screening:: None identified. - Immunization history:: All immunizations up-to-date. - Social history:: the patient is a former smoker, the patient does not drink alcohol. ROS: 11:53 All systems are negative except as listed. pc Exam: 11:53 General Appearance: no acute distress, alert. pc 11:53 EENT: normal eye inspection, ears, nose and throat normal, pharyngeal erythema, no exudate . 11:53 Neck: The exam reveals no acute abnormalities. ROM is normal and painless. No nuchal rigidity is noted.. 11:53 Respiratory: no respiratory distress, normal breath sounds, PO 96% on home oxygen setting of 3L. 11:53 CVS: regular pulse rate, regular rhythm, normal S1 and S2, no murmurs, strong peripheral pulses, normal capillary refill. 11:53 Abdomen: soft, non-tender, no organomegaly, normal bowel sounds. 11:53 Back: normal inspection. 11:53 Skin: skin color is normal, warm, dry. 11:53 Extremities: The extremities have a grossly normal appearance, are non-tender, without acute ROM abnormalities. 11:53 Neuro: oriented x 3, cranial nerves normal as tested. Vital Signs: 10:31 BP 131 / 84; Pulse 96; Resp 18; Temp 97.6; Pulse Ox 96% ; Weight 73.48 kg / 162 lbs; jl Height 5 ft. 8 in. (172.72 cm); Pain 10/10; 12:12 Pulse 96 MON; Resp 17; Temp 98.3(TE); Pulse Ox 93% ; mb9 12:58 BP 134 / 81 (auto/); mb9 10:31 Body Mass Index 24.63 (73.48 kg, 172.72 cm) [facility] MDM: 10:38 Acetaminophen Tablet 650 mg PO once ordered. pc 10:39 Chest, 2 View (pa\E\lat) Ordered. EDMS 11:10 Financial registration complete. lg 11:53 Differential Diagnosis: URI with history of COPD r/o pneumonia. Plan: imaging. Data pc reviewed: old medical records, vital signs, nurses notes, all radiology studies and available results. Test interpretation: X-RAY - interpreted by Radiologist and personally reviewed, 2 view chest, no acute disease. The patient has been re-examined and re-evaluated. The clinical presentation did not require any ED treatment or interventions. Disposition: The historical points, examination findings, and any diagnostic results supporting the provided diagnosis, were discussed with the patient or legal guardian. The need for outpatient follow up with the provider listed on their discharge instructions was discussed. They were encouraged to return to [facility], or the nearest ED, if symptoms worsen/persist, or for any other questions/concerns. 11:58 Acetaminophen Tablet 650 mg PO once ordered. pc 12:12 CONSISTENT CARBOHYDRATE+DIET ordered. EDOK 12:38 [facility] Payment Agreement was scanned into [employer] and attached to record. lg Administered Medications: 11:58 Not Given (reported allergy): Acetaminophen Tablet 650 mg PO once pc Signatures: Dispatcher [employer] EDMS Joseph Sanchez MD MD pc Johnson, Bruce, RN RN Chandler Ann Reg Reg lg The chart was reviewed and I authenticate all verbal orders and agree with the evaluation and treatment provided.Attachments: 12:38 [facility] Payment Agreement lg MTDD
--- NOTE | 2016-05-29 13:36 | EDDOCDS ---
Nurse's Notes [facility] Name: Donny Hurd Age: 61 yrs Sex: Male : 1955 Arrival Date: 05/29/2016 Time: 10:07 Bed 17 Private MD: Diagnosis: Acute upper respiratory infection, unspecified-viral Presentation: 05/29 10:22 Presenting complaint: Patient states: increasing SOB over last 2 days worse today. has bcj been using home oxygen more than usual today. states hurts to breath. + hash NPC. states SOB with any activity. + chills at home. Adult Sepsis Screening: The patient does not have new or worsening altered mentation. Patient's respiratory rate is less than 22. Systolic blood pressure is greater than 100. Patient has a qSOFA score of 0- Negative Sepsis Screen. Suicide/Homicide risk assessment- the patient denies having any suicidal and/or homicidal ideations and does not present with any other emotional, behavioral or mental health complaints. 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 Transition of care: patient was not received from another setting of care. Care prior to arrival: See EMS report. Saline lock initiated. Glucose check. FS BS 300 Oxygen administered by EMS. 10:22 Acuity: TONO Level 3 [facility] 10:22 Method Of Arrival: Ambulance [facility] Triage Assessment: 10:30 General: Appears in no apparent distress, comfortable. Pain: Location: anterior aspect bcj of right upper chest and anterior aspect of left upper chest Pain currently is 5 out of 10 on a pain scale. Pain does not radiate. Cardiovascular: Rhythm is sinus rhythm. Respiratory: Onset: The symptoms/episode began/occurred yesterday, Airway is patent Respiratory effort is even, unlabored, Respiratory pattern is regular, Breath sounds with wheezes bilaterally. Derm: Skin is pink, warm & dry. 13:35 HIV screening NA for this visit Offered previously. [facility] Historical: - Allergies: Benadryl (Hives); LITHIUM DERIVITIVES (Hives); Mellaril; Motrin; Paxil (Hives); PENICILLINS (Anaphylaxis); thorazine (Hives); tylenol; - Home Meds: 1. 02 at 3lpm as needed 2. albuterol sulfate 2.5 mg /3 mL (0.083 %) Inhl nebu every 6 hours 3. aspirin 81 mg Oral tab 1 tab once daily 4. gabapentin 100 mg Oral cap 1 caps 3 times per day 5. glimepiride 4 mg Oral tab 1 tab once daily 6. Lantus 100 unit/mL Sub-Q soln 20 unit nightly 7. levetiracetam 1,000 mg oral tab 1 tab every 12 hours 8. metformin 500 mg Oral tab 2 times per day 9. Nexium 40 mg Oral cpDR 1 cap once daily 10. nitroglycerin 0.4 mg SL subl 1 tab every 5 minutes for Angina 11. ramipril 1.25 mg Oral cap 1 cap once daily 12. Spiriva with HandiHaler 18 mcg Inhl CpDv 1 cap once daily 13. topiramate 50 mg oral CSpX 1 cap twice a day 14. trazodone 100 mg Oral tab nightly 15. umeclidinium 62.5 mcg/actuation inhalation dsdv once daily - PMHx: Asthma; Chronic Back pain; Diabetes - IDDM: controlled; Emphysema; [place]; Parkinson's Disease; Seizure Disorder; - PSHx: none; - The history from nurses notes was reviewed: and I agree with what is documented. - Social history: Smoking status: Patient uses tobacco products, heavy tobacco smoker. No barriers to communication noted, The patient speaks fluent Cape Verdean, Speaks appropriately for age. - Family history: Not pertinent. - : The pt / caregiver states he / she is not on anticoagulants. Home medication list is obtained from the patient, [employer] import data. - Hospitalizations: : No recent hospitalization is reported. - Exposure Risk Screening:: None identified. - Immunization history:: All immunizations up-to-date. - Social history:: the patient is a former smoker, the patient does not drink alcohol. Screenin:12 Infection Control. lbd 10:32 Screening information is obtained from the patient. Fall risk: At risk due to prior [facility] history of falls, The following interventions are performed due to a positive Fall Risk Screen: Fall Risk is added to Special Handling on the patient Summary Screen. A Fall Risk Bracelet was applied to the patient. Side Rails are placed in the up position. A Call Delgado is given with instruction to call for help when getting out of bed. Fall Alert bracelet is placed on the patient. Assistance ADL's: Requires assistance with medication administration, assistance is provided by family members. Abuse/DV Screen: The patient / caregiver reports he/she is: not in a situation that causes fear, pain or injury. Nutritional screening: No deficits noted. home support is adequate. 13:17 Advance Directives: There is no active DNR order. mb9 Assessment: 10:32 General: Appears in no apparent distress, comfortable, Behavior is cooperative. Pain: bcj Location: anterior aspect of left upper chest and anterior aspect of right upper chest. Cardiovascular: Rhythm is sinus rhythm. Derm: Skin is pale, pink. 13:02 General: Appears in no apparent distress, Behavior is cooperative. mb9 Vital Signs: 10:31 BP 131 / 84; Pulse 96; Resp 18; Temp 97.6; Pulse Ox 96% ; Weight 73.48 kg; Height 5 ft. jlm 8 in. (172.72 cm); Pain 10/10; 12:12 Pulse 96 MON; Resp 17; Temp 98.3(TE); Pulse Ox 93% ; mb9 12:58 BP 134 / 81 (auto/); mb9 10:31 Body Mass Index 24.63 (73.48 kg, 172.72 cm) [facility] Vitals: 10:31 Log In Time N/A - ambulance arrival. [facility] 10:32 Refer to monitor trend for complete vital signs trends. [facility] ED Course: 10:08 Patient visited by Deborah Garcia, Principal Technical Architect. lbd 10:08 Patient moved to Waiting lbd 10:09 Patient moved to 17 lbd 10:27 Triage Initiated [facility] 10:32 Patient visited by Leticia Paulino, Principal Technical Architect. [facility] 10:32 Joseph Sanchez MD is Attending Physician. pc 10:32 No apparent distress. Resting quietly. Awaiting ED physician evaluation. [facility] 10:32 The patient / caregiver is instructed regarding the plan of care and ED course. Patient j has correct armband on for positive identification. Placed in gown. Bed in low position. Call light in reach. Side rails up X2. land law examiner on. Pulse ox on. NIBP on. 10:32 Maintain field IV. Site clean & dry. Gauge & site: 20ga LAC. IV is intact. O2 via nasal bcj cannula \T\ 3L/min. 10:36 Patient visited by Raffaele Kennedy RN. [facility] 10:37 Patient visited by Joseph Sanchez MD. pc 11:59 [facility] is Referral Physician. pc 12:30 Chest, 2 View (pa\E\lat) Returned. EDMS 12:38 [facility] Payment Agreement was scanned into [employer] and attached to record. lg 13:17 Discontinued IV lock intact, bleeding controlled, pressure dressing applied, No mb9 redness/swelling at site. No procedures done that require assistance. 13:35 Patient visited by Raffaele Kennedy RN. j Administered Medications: 11:58 Not Given (reported allergy): Acetaminophen Tablet 650 mg PO once pc Order Results: Radiology Order: Chest, 2 View (pa\E\lat) Test: Chest, 2 View (pa\E\lat) REASON FOR EXAMINATION: Cough; TWO VIEW CHEST:; ; Two views of the chest are performed and compared to a prior study of 03/03/2016.; There is no evidence of acute infiltrate or pulmonary edema. The heart is normal; in size and there is calcification of the thoracic aorta. The mediastinal; silhouette is unchanged. There are degenerative changes of the spine.; ; IMPRESSION:; ; No acute infiltrate.; ; ; Signed by; Tulio Poole MD 05/29/2016 12:32 P; Outcome: 12:00 Discharge ordered by Provider. pc 13:17 Discharge Assessment: patient administered narcotics - no. The following High Risk mb9 Discharge criteria are identified: None. Discharged to home via ambulance. Condition: good Condition: stable Condition: improved. No special radiology studies were completed. Property :Personal belongings accompany Pt. 13:35 Patient left the ED. [facility] Signatures: Dispatcher [employer] EDMS Joseph Sanchez MD MD pc Daly, Linda, Principal Technical Architect Unit lbd Raffaele Kennedy, SHAKIRA RN Chandler Ann, Reg Reg Leticia Matute, Principal Technical Architect Unit Gulshan StevensRN RN mb9 [facility]
--- NOTE | 2016-05-31 14:36 | EDDOCDS ---
Physician Documentation [facility] Name: Donny Hurd Age: 61 yrs Sex: Male : 1955 Arrival Date: 05/29/2016 Time: 10:07 Bed 17 Private MD: Disposition: 05/29 11:53 Critical Care: Critical care not applicable. pc Disposition: 05/29/16 12:00 Discharged to Home/Self Care. Impression: Acute upper respiratory infection, unspecified - viral. - Condition is Stable. - Discharge Instructions: Upper Respiratory Infection, Adult, Viral Infections. - Medication Reconciliation, Local Pharmacy Hours form. - Follow up: [facility] - Adults; When: Call to arrange an appointment; Reason: Continuance of care. - Problem is an ongoing problem. - Symptoms are unchanged. - Notes: Use throat lozenges as needed. Drink plenty of fluids HPI: 11:53 This 61 yrs old Male presents to ER via Ambulance with complaints of pc Breathing Difficulty. 11:53 The history is obtained from the patient. He has had a cough and sore throat for 10 pc days or more. He denies any fevers or chills. He has COPD and is on home oxygen and has not needed to use more of his nebs or increase his oxygen. He has not seen his PCP for the same. The patient has experienced similar episodes in the past, several times. The patient has not recently seen a physician. Historical: - Allergies: Benadryl (Hives); LITHIUM DERIVITIVES (Hives); Mellaril; Motrin; Paxil (Hives); PENICILLINS (Anaphylaxis); thorazine (Hives); tylenol; - Home Meds: 1. 02 at 3lpm as needed 2. albuterol sulfate 2.5 mg /3 mL (0.083 %) Inhl nebu every 6 hours 3. aspirin 81 mg Oral tab 1 tab once daily 4. gabapentin 100 mg Oral cap 1 caps 3 times per day 5. glimepiride 4 mg Oral tab 1 tab once daily 6. Lantus 100 unit/mL Sub-Q soln 20 unit nightly 7. levetiracetam 1,000 mg oral tab 1 tab every 12 hours 8. metformin 500 mg Oral tab 2 times per day 9. Nexium 40 mg Oral cpDR 1 cap once daily 10. nitroglycerin 0.4 mg SL subl 1 tab every 5 minutes for Angina 11. ramipril 1.25 mg Oral cap 1 cap once daily 12. Spiriva with HandiHaler 18 mcg Inhl CpDv 1 cap once daily 13. topiramate 50 mg oral CSpX 1 cap twice a day 14. trazodone 100 mg Oral tab nightly 15. umeclidinium 62.5 mcg/actuation inhalation dsdv once daily - PMHx: Asthma; Chronic Back pain; Diabetes - IDDM: controlled; Emphysema; [place]; Parkinson's Disease; Seizure Disorder; - PSHx: none; - The history from nurses notes was reviewed: and I agree with what is documented. - Social history: Smoking status: Patient uses tobacco products, heavy tobacco smoker. No barriers to communication noted, The patient speaks fluent Chilean, Speaks appropriately for age. - Family history: Not pertinent. - : The pt / caregiver states he / she is not on anticoagulants. Home medication list is obtained from the patient, [employer] import data. - Hospitalizations: : No recent hospitalization is reported. - Exposure Risk Screening:: None identified. - Immunization history:: All immunizations up-to-date. - Social history:: the patient is a former smoker, the patient does not drink alcohol. ROS: 11:53 All systems are negative except as listed. pc Exam: 11:53 General Appearance: no acute distress, alert. pc 11:53 EENT: normal eye inspection, ears, nose and throat normal, pharyngeal erythema, no exudate . 11:53 Neck: The exam reveals no acute abnormalities. ROM is normal and painless. No nuchal rigidity is noted.. 11:53 Respiratory: no respiratory distress, normal breath sounds, PO 96% on home oxygen setting of 3L. 11:53 CVS: regular pulse rate, regular rhythm, normal S1 and S2, no murmurs, strong peripheral pulses, normal capillary refill. 11:53 Abdomen: soft, non-tender, no organomegaly, normal bowel sounds. 11:53 Back: normal inspection. 11:53 Skin: skin color is normal, warm, dry. 11:53 Extremities: The extremities have a grossly normal appearance, are non-tender, without acute ROM abnormalities. 11:53 Neuro: oriented x 3, cranial nerves normal as tested. Vital Signs: 10:31 BP 131 / 84; Pulse 96; Resp 18; Temp 97.6; Pulse Ox 96% ; Weight 73.48 kg / 162 lbs; jl Height 5 ft. 8 in. (172.72 cm); Pain 10/10; 12:12 Pulse 96 MON; Resp 17; Temp 98.3(TE); Pulse Ox 93% ; mb9 12:58 BP 134 / 81 (auto/); mb9 10:31 Body Mass Index 24.63 (73.48 kg, 172.72 cm) [facility] MDM: 10:38 Acetaminophen Tablet 650 mg PO once ordered. pc 10:39 Chest, 2 View (pa\E\lat) Ordered. EDMS 11:10 Financial registration complete. lg 11:53 Differential Diagnosis: URI with history of COPD r/o pneumonia. Plan: imaging. Data pc reviewed: old medical records, vital signs, nurses notes, all radiology studies and available results. Test interpretation: X-RAY - interpreted by Radiologist and personally reviewed, 2 view chest, no acute disease. The patient has been re-examined and re-evaluated. The clinical presentation did not require any ED treatment or interventions. Disposition: The historical points, examination findings, and any diagnostic results supporting the provided diagnosis, were discussed with the patient or legal guardian. The need for outpatient follow up with the provider listed on their discharge instructions was discussed. They were encouraged to return to [facility], or the nearest ED, if symptoms worsen/persist, or for any other questions/concerns. 11:58 Acetaminophen Tablet 650 mg PO once ordered. pc 12:12 CONSISTENT CARBOHYDRATE+DIET ordered. EDPR 12:38 [facility] Payment Agreement was scanned into [employer] and attached to record. lg Administered Medications: 11:58 Not Given (reported allergy): Acetaminophen Tablet 650 mg PO once pc Signatures: Dispatcher [employer] EDMS Joseph Sanchez MD MD pc Johnson, Bruce, RN RN Chandler Ann Reg Reg lg The chart was reviewed and I authenticate all verbal orders and agree with the evaluation and treatment provided.Attachments: 12:38 [facility] Payment Agreement lg Chart Complete MTDD
--- NOTE | 2016-05-31 14:36 | EDDOCDS ---
Nurse's Notes [facility] Name: Donny Hurd Age: 61 yrs Sex: Male : 1955 Arrival Date: 05/29/2016 Time: 10:07 Bed 17 Private MD: Diagnosis: Acute upper respiratory infection, unspecified-viral Presentation: 05/29 10:22 Presenting complaint: Patient states: increasing SOB over last 2 days worse today. has bcj been using home oxygen more than usual today. states hurts to breath. + hash NPC. states SOB with any activity. + chills at home. Adult Sepsis Screening: The patient does not have new or worsening altered mentation. Patient's respiratory rate is less than 22. Systolic blood pressure is greater than 100. Patient has a qSOFA score of 0- Negative Sepsis Screen. Suicide/Homicide risk assessment- the patient denies having any suicidal and/or homicidal ideations and does not present with any other emotional, behavioral or mental health complaints. 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 Transition of care: patient was not received from another setting of care. Care prior to arrival: See EMS report. Saline lock initiated. Glucose check. FS BS 300 Oxygen administered by EMS. 10:22 Acuity: TONO Level 3 [facility] 10:22 Method Of Arrival: Ambulance [facility] Triage Assessment: 10:30 General: Appears in no apparent distress, comfortable. Pain: Location: anterior aspect bcj of right upper chest and anterior aspect of left upper chest Pain currently is 5 out of 10 on a pain scale. Pain does not radiate. Cardiovascular: Rhythm is sinus rhythm. Respiratory: Onset: The symptoms/episode began/occurred yesterday, Airway is patent Respiratory effort is even, unlabored, Respiratory pattern is regular, Breath sounds with wheezes bilaterally. Derm: Skin is pink, warm & dry. 13:35 HIV screening NA for this visit Offered previously. [facility] Historical: - Allergies: Benadryl (Hives); LITHIUM DERIVITIVES (Hives); Mellaril; Motrin; Paxil (Hives); PENICILLINS (Anaphylaxis); thorazine (Hives); tylenol; - Home Meds: 1. 02 at 3lpm as needed 2. albuterol sulfate 2.5 mg /3 mL (0.083 %) Inhl nebu every 6 hours 3. aspirin 81 mg Oral tab 1 tab once daily 4. gabapentin 100 mg Oral cap 1 caps 3 times per day 5. glimepiride 4 mg Oral tab 1 tab once daily 6. Lantus 100 unit/mL Sub-Q soln 20 unit nightly 7. levetiracetam 1,000 mg oral tab 1 tab every 12 hours 8. metformin 500 mg Oral tab 2 times per day 9. Nexium 40 mg Oral cpDR 1 cap once daily 10. nitroglycerin 0.4 mg SL subl 1 tab every 5 minutes for Angina 11. ramipril 1.25 mg Oral cap 1 cap once daily 12. Spiriva with HandiHaler 18 mcg Inhl CpDv 1 cap once daily 13. topiramate 50 mg oral CSpX 1 cap twice a day 14. trazodone 100 mg Oral tab nightly 15. umeclidinium 62.5 mcg/actuation inhalation dsdv once daily - PMHx: Asthma; Chronic Back pain; Diabetes - IDDM: controlled; Emphysema; [place]; Parkinson's Disease; Seizure Disorder; - PSHx: none; - The history from nurses notes was reviewed: and I agree with what is documented. - Social history: Smoking status: Patient uses tobacco products, heavy tobacco smoker. No barriers to communication noted, The patient speaks fluent Australian, Speaks appropriately for age. - Family history: Not pertinent. - : The pt / caregiver states he / she is not on anticoagulants. Home medication list is obtained from the patient, [employer] import data. - Hospitalizations: : No recent hospitalization is reported. - Exposure Risk Screening:: None identified. - Immunization history:: All immunizations up-to-date. - Social history:: the patient is a former smoker, the patient does not drink alcohol. Screenin:12 Infection Control. lbd 10:32 Screening information is obtained from the patient. Fall risk: At risk due to prior [facility] history of falls, The following interventions are performed due to a positive Fall Risk Screen: Fall Risk is added to Special Handling on the patient Summary Screen. A Fall Risk Bracelet was applied to the patient. Side Rails are placed in the up position. A Call Delgado is given with instruction to call for help when getting out of bed. Fall Alert bracelet is placed on the patient. Assistance ADL's: Requires assistance with medication administration, assistance is provided by family members. Abuse/DV Screen: The patient / caregiver reports he/she is: not in a situation that causes fear, pain or injury. Nutritional screening: No deficits noted. home support is adequate. 13:17 Advance Directives: There is no active DNR order. mb9 Assessment: 10:32 General: Appears in no apparent distress, comfortable, Behavior is cooperative. Pain: bcj Location: anterior aspect of left upper chest and anterior aspect of right upper chest. Cardiovascular: Rhythm is sinus rhythm. Derm: Skin is pale, pink. 13:02 General: Appears in no apparent distress, Behavior is cooperative. mb9 Vital Signs: 10:31 BP 131 / 84; Pulse 96; Resp 18; Temp 97.6; Pulse Ox 96% ; Weight 73.48 kg; Height 5 ft. jlm 8 in. (172.72 cm); Pain 10/10; 12:12 Pulse 96 MON; Resp 17; Temp 98.3(TE); Pulse Ox 93% ; mb9 12:58 BP 134 / 81 (auto/); mb9 10:31 Body Mass Index 24.63 (73.48 kg, 172.72 cm) [facility] Vitals: 10:31 Log In Time N/A - ambulance arrival. [facility] 10:32 Refer to monitor trend for complete vital signs trends. [facility] ED Course: 10:08 Patient visited by Deborah Garcia, Fireperson. lbd 10:08 Patient moved to Waiting lbd 10:09 Patient moved to 17 lbd 10:27 Triage Initiated [facility] 10:32 Patient visited by Leticia Paulino, Fireperson. [facility] 10:32 Joseph Sanchez MD is Attending Physician. pc 10:32 No apparent distress. Resting quietly. Awaiting ED physician evaluation. [facility] 10:32 The patient / caregiver is instructed regarding the plan of care and ED course. Patient j has correct armband on for positive identification. Placed in gown. Bed in low position. Call light in reach. Side rails up X2. marketing services vice president on. Pulse ox on. NIBP on. 10:32 Maintain field IV. Site clean & dry. Gauge & site: 20ga LAC. IV is intact. O2 via nasal bcj cannula \T\ 3L/min. 10:36 Patient visited by Raffaele Kennedy RN. [facility] 10:37 Patient visited by Joseph Sanchez MD. pc 11:59 [facility] is Referral Physician. pc 12:30 Chest, 2 View (pa\E\lat) Returned. EDMS 12:38 [facility] Payment Agreement was scanned into [employer] and attached to record. lg 13:17 Discontinued IV lock intact, bleeding controlled, pressure dressing applied, No mb9 redness/swelling at site. No procedures done that require assistance. 13:35 Patient visited by Raffaele Kennedy RN. j Administered Medications: 11:58 Not Given (reported allergy): Acetaminophen Tablet 650 mg PO once pc Order Results: Radiology Order: Chest, 2 View (pa\E\lat) Test: Chest, 2 View (pa\E\lat) REASON FOR EXAMINATION: Cough; TWO VIEW CHEST:; ; Two views of the chest are performed and compared to a prior study of 03/03/2016.; There is no evidence of acute infiltrate or pulmonary edema. The heart is normal; in size and there is calcification of the thoracic aorta. The mediastinal; silhouette is unchanged. There are degenerative changes of the spine.; ; IMPRESSION:; ; No acute infiltrate.; ; ; Signed by; Tulio Poole MD 05/29/2016 12:32 P; Outcome: 12:00 Discharge ordered by Provider. pc 13:17 Discharge Assessment: patient administered narcotics - no. The following High Risk mb9 Discharge criteria are identified: None. Discharged to home via ambulance. Condition: good Condition: stable Condition: improved. No special radiology studies were completed. Property :Personal belongings accompany Pt. 13:35 Patient left the ED. [facility] Signatures: Dispatcher [employer] EDMS Joseph Sanchez MD MD pc Daly, Linda, Fireperson Unit lbd Raffaele Kennedy, SHAKIRA RN Chandler Ann, Reg Reg Leticia Matute, Fireperson Unit Gulshan StevensRN RN mb9 Chart Complete MTDD
--- NOTE | 2016-05-31 14:36 | EDDOCDS ---
Physician Documentation [facility] Name: Donny Hurd Age: 61 yrs Sex: Male : 1955 Arrival Date: 05/29/2016 Time: 10:07 Bed 17 Private MD: Disposition: 05/29 11:53 Critical Care: Critical care not applicable. pc Disposition: 05/29/16 12:00 Discharged to Home/Self Care. Impression: Acute upper respiratory infection, unspecified - viral. - Condition is Stable. - Discharge Instructions: Upper Respiratory Infection, Adult, Viral Infections. - Medication Reconciliation, Local Pharmacy Hours form. - Follow up: [facility] - Adults; When: Call to arrange an appointment; Reason: Continuance of care. - Problem is an ongoing problem. - Symptoms are unchanged. - Notes: Use throat lozenges as needed. Drink plenty of fluids HPI: 11:53 This 61 yrs old Male presents to ER via Ambulance with complaints of pc Breathing Difficulty. 11:53 The history is obtained from the patient. He has had a cough and sore throat for 10 pc days or more. He denies any fevers or chills. He has COPD and is on home oxygen and has not needed to use more of his nebs or increase his oxygen. He has not seen his PCP for the same. The patient has experienced similar episodes in the past, several times. The patient has not recently seen a physician. Historical: - Allergies: Benadryl (Hives); LITHIUM DERIVITIVES (Hives); Mellaril; Motrin; Paxil (Hives); PENICILLINS (Anaphylaxis); thorazine (Hives); tylenol; - Home Meds: 1. 02 at 3lpm as needed 2. albuterol sulfate 2.5 mg /3 mL (0.083 %) Inhl nebu every 6 hours 3. aspirin 81 mg Oral tab 1 tab once daily 4. gabapentin 100 mg Oral cap 1 caps 3 times per day 5. glimepiride 4 mg Oral tab 1 tab once daily 6. Lantus 100 unit/mL Sub-Q soln 20 unit nightly 7. levetiracetam 1,000 mg oral tab 1 tab every 12 hours 8. metformin 500 mg Oral tab 2 times per day 9. Nexium 40 mg Oral cpDR 1 cap once daily 10. nitroglycerin 0.4 mg SL subl 1 tab every 5 minutes for Angina 11. ramipril 1.25 mg Oral cap 1 cap once daily 12. Spiriva with HandiHaler 18 mcg Inhl CpDv 1 cap once daily 13. topiramate 50 mg oral CSpX 1 cap twice a day 14. trazodone 100 mg Oral tab nightly 15. umeclidinium 62.5 mcg/actuation inhalation dsdv once daily - PMHx: Asthma; Chronic Back pain; Diabetes - IDDM: controlled; Emphysema; [place]; Parkinson's Disease; Seizure Disorder; - PSHx: none; - The history from nurses notes was reviewed: and I agree with what is documented. - Social history: Smoking status: Patient uses tobacco products, heavy tobacco smoker. No barriers to communication noted, The patient speaks fluent Serbian, Speaks appropriately for age. - Family history: Not pertinent. - : The pt / caregiver states he / she is not on anticoagulants. Home medication list is obtained from the patient, [employer] import data. - Hospitalizations: : No recent hospitalization is reported. - Exposure Risk Screening:: None identified. - Immunization history:: All immunizations up-to-date. - Social history:: the patient is a former smoker, the patient does not drink alcohol. ROS: 11:53 All systems are negative except as listed. pc Exam: 11:53 General Appearance: no acute distress, alert. pc 11:53 EENT: normal eye inspection, ears, nose and throat normal, pharyngeal erythema, no exudate . 11:53 Neck: The exam reveals no acute abnormalities. ROM is normal and painless. No nuchal rigidity is noted.. 11:53 Respiratory: no respiratory distress, normal breath sounds, PO 96% on home oxygen setting of 3L. 11:53 CVS: regular pulse rate, regular rhythm, normal S1 and S2, no murmurs, strong peripheral pulses, normal capillary refill. 11:53 Abdomen: soft, non-tender, no organomegaly, normal bowel sounds. 11:53 Back: normal inspection. 11:53 Skin: skin color is normal, warm, dry. 11:53 Extremities: The extremities have a grossly normal appearance, are non-tender, without acute ROM abnormalities. 11:53 Neuro: oriented x 3, cranial nerves normal as tested. Vital Signs: 10:31 BP 131 / 84; Pulse 96; Resp 18; Temp 97.6; Pulse Ox 96% ; Weight 73.48 kg / 162 lbs; jl Height 5 ft. 8 in. (172.72 cm); Pain 10/10; 12:12 Pulse 96 MON; Resp 17; Temp 98.3(TE); Pulse Ox 93% ; mb9 12:58 BP 134 / 81 (auto/); mb9 10:31 Body Mass Index 24.63 (73.48 kg, 172.72 cm) [facility] MDM: 10:38 Acetaminophen Tablet 650 mg PO once ordered. pc 10:39 Chest, 2 View (pa\E\lat) Ordered. EDMS 11:10 Financial registration complete. lg 11:53 Differential Diagnosis: URI with history of COPD r/o pneumonia. Plan: imaging. Data pc reviewed: old medical records, vital signs, nurses notes, all radiology studies and available results. Test interpretation: X-RAY - interpreted by Radiologist and personally reviewed, 2 view chest, no acute disease. The patient has been re-examined and re-evaluated. The clinical presentation did not require any ED treatment or interventions. Disposition: The historical points, examination findings, and any diagnostic results supporting the provided diagnosis, were discussed with the patient or legal guardian. The need for outpatient follow up with the provider listed on their discharge instructions was discussed. They were encouraged to return to [facility], or the nearest ED, if symptoms worsen/persist, or for any other questions/concerns. 11:58 Acetaminophen Tablet 650 mg PO once ordered. pc 12:12 CONSISTENT CARBOHYDRATE+DIET ordered. EDAR 12:38 [facility] Payment Agreement was scanned into [employer] and attached to record. lg Administered Medications: 11:58 Not Given (reported allergy): Acetaminophen Tablet 650 mg PO once pc Signatures: Dispatcher [employer] EDMS Joseph Sanchez MD MD pc Johnson, Bruce, RN RN Chandler Ann Reg Reg lg The chart was reviewed and I authenticate all verbal orders and agree with the evaluation and treatment provided.Attachments: 12:38 [facility] Payment Agreement lg Chart Complete MTDD
== END 2016-05-29 13:35 | disposition home or self-care (01) ==
LOC: M ED 10:07
DX: J06.9 Acute upper respiratory infection, unspecified (principal); J44.9 Chronic obstructive pulmonary disease, unspecified; J45.909 Unspecified asthma, uncomplicated; E11.9 Type 2 diabetes mellitus without complications; G20 Parkinson's disease; I25.2 Old myocardial infarction; G40.909 Epilepsy, unspecified, not intractable, without status epilepticus; M54.9 Dorsalgia, unspecified; Z79.899 Other long term (current) drug therapy; Z79.82 Long term (current) use of aspirin; Z79.4 Long term (current) use of insulin; Z79.84 Long term (current) use of oral hypoglycemic drugs; Z99.81 Dependence on supplemental oxygen; Z88.1 Allergy status to other antibiotic agents; Z88.0 Allergy status to penicillin; Z88.8 Allergy status to other drugs, medicaments and biological substances; Z88.6 Allergy status to analgesic agent; Z87.891 Personal history of nicotine dependence

== ENCOUNTER 2016-06-22 21:58 | Emergency (ER) | payer MEDICARE, MEDICAID ==
[~2016-06-22] VITALS: Ht 172.7 cm; Wt 78.9 kg
[2016-06-22] MEDS ORDERED: MORPHINE 4 MG/ML 1ML SYRINGE IV PRN (23:00)
[2016-06-22] MEDS ORDERED: ONDANSETRON 4MG/2ML VIAL (J2405) IV ONE (23:00)
[2016-06-22 23:48] LABS: BASO % 0.7 % (0.0-1.0); EOS # 0.6 K/mm3 (0.0-0.50); EOS % 8.2 % (0.0-3.0); LARGE UNSTAINED CELL # 0.2 K/mm3 (0.0-0.4); LARGE UNSTAINED CELL % 2.4 % (0.0-4.0); LYMPH # 2.7 K/mm3 (1.5-4.5); LYMPH % 40.3 % (24.0-44.0); MEAN CORPUSCULAR HEMOGLOBIN 32.3 pg (27.0-33.0); MEAN CORPUSCULAR VOLUME 95.1 fl (80.0-96.0); MONO # 0.4 K/mm3 (0.0-0.8); MONO % 5.8 % (0.0-5.0); NEUTROPHILS # 2.9 K/mm3 (1.8-7.7); NEUTROPHILS % 42.6 % (36.0-66.0); PLATELET COUNT, AUTOMATED 196 k/mm3 (150-450); RED CELL DISTRIBUTION WIDTH 14.4 % (11.5-14.5); WHITE BLOOD COUNT 6.8 K/mm3 (4.0-10.0)
[2016-06-23 00:16] LABS: ANION GAP 10 MEQ/L (8-16); BLOOD UREA NITROGEN 7 MG/DL (7-18); CALCIUM LEVEL 8.7 MG/DL (8.8-10.2); CARBON DIOXIDE LEVEL 23 MEQ/L (21-32); CHLORIDE LEVEL 107 MEQ/L (98-107); CREATININE FOR GFR 0.71 MG/DL (0.70-1.30); GLOMERULAR FILTRATION RATE > 60.0 (>49); GLUCOSE, FASTING 180 MG/DL (80-110); POTASSIUM SERUM 3.5 MEQ/L (3.5-5.1); SODIUM LEVEL 140 MEQ/L (136-145)
[2016-06-23] MEDS ORDERED: IPRATROPIUM 0.5MG/ALBUTEROL 2.5MG INH SOL UD 3ML (DUONEB)(J7620) NEB ONE (00:30)
[2016-06-23] MEDS ORDERED: ISOVUE-370 76% 100ML VIAL (Q9967) As Ordered ONE (00:39)
[2016-06-23 00:57] LABS: DIGOXIN LEVEL 0.4 NG/ML (0.5-2.0)
--- NOTE | 2016-06-23 01:40 | REPUSA ---
CLINICAL HISTORY: Dyspnea, exclude PE. TECHNIQUE: Multiple incremental axial, coronal and oblique images are obtained from the thoracic inle t to the upper abdomen. Intravenous contrast material was administered as per pulmonary embolism prot ocol. COMMENTS: Comparison is made to the prior exam on 04/03/2016. Mild centrilobular pulmonary emphysema. Bilateral basilar atelectatic pulmonary changes. Bilateral changes of bronchitis. There is excellent opacification of pulmonary arterial system without evidence for pulmonary embolism . Aorta is of normal caliber without evidence for dissection or aneurysm. There is no evidence of pleural or parenchymal mass. There are no pleural effusions. There is no evid ence of hilar or mediastinal lymphadenopathy. The heart and great vessels are within normal limits. Images of the upper abdomen demonstrate no evidence of adrenal mass. The bony structures are free of lytic or blastic lesions. IMPRESSION: No evidence for pulmonary embolism. Bronchitis. This was not present on the prior exam. Emphysema. This was not present on prior exam. Basilar atelectatic pulmonary changes. This was not present on prior exam. Thank you for your kind referral of this patient.
[2016-06-23 03:19] VITALS: BP 126/58
--- NOTE | 2016-06-23 08:40 | REP ---
REASON: Chest pain. COMPARISON: 05/29/2016 FINDINGS: The technique utilized in obtaining the radiograph has magnified the cardiac silhouette and accentuated the interstitial markings. The superior mediastinal structures are midline. The cardiac silhouette is unremarkable in size, shape, and position. The diaphragmatic surfaces of the lungs are regular, and the costophrenic angles are clear. The pulmonary forte are clear. The imaged osseous structures are intact. IMPRESSION: There is no acute cardiopulmonary disease. Signed by Miguel Duran DO 06/23/2016 10:05 A
--- NOTE | 2016-06-23 09:12 | ECGEPIP ---
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
--- NOTE | 2016-06-24 06:32 | ECGEPIP ---
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
== END 2016-06-23 03:18 | disposition home or self-care (01) ==
LOC: M ED 23:13
DX: R07.89 Other chest pain (principal); J44.9 Chronic obstructive pulmonary disease, unspecified; Z87.891 Personal history of nicotine dependence; Z82.49 Family history of ischemic heart disease and other diseases of the circulatory system; J40 Bronchitis, not specified as acute or chronic; J30.1 Allergic rhinitis due to pollen; Z79.82 Long term (current) use of aspirin; Z79.52 Long term (current) use of systemic steroids; Z79.899 Other long term (current) drug therapy; Z88.0 Allergy status to penicillin; Z88.6 Allergy status to analgesic agent; Z88.8 Allergy status to other drugs, medicaments and biological substances
CPT/HCPCS: 71010; 71275; 80048; 80162; 82550; 82553; 83880; 84484; 85025; 93005; 93041; 94640; 94760; 96374; 96375; 99285; J2405; Q9967

== ENCOUNTER 2016-07-03 20:57 | Emergency (ER) | payer MEDICARE, MEDICAID ==
[~2016-07-03] VITALS: Ht 172.7 cm; Wt 78.9 kg
[~2016-07-03 20:57] MED LIST changes: +CRES10TA32 PO; -ROSU10TA PO
[2016-07-03] MEDS ORDERED: LORA10TA2 PO (21:38)
[2016-07-03] MEDS ORDERED: IPRATROPIUM 0.5MG/ALBUTEROL 2.5MG INH SOL UD 3ML (DUONEB)(J7620) NEB ONE (22:15)
[2016-07-03 23:01] VITALS: BP 151/85
[2016-07-03] MEDS ORDERED: PRED20TA PO (23:05)
--- NOTE | 2016-07-04 07:38 | REP ---
Clinical: Acute cough . Comparison: 06/22/2016 . Technique: PA and lateral. Findings: The mediastinum and cardiac silhouette are normal. The lung forte are clear and without acute consolidation, effusion, or pneumothorax. The skeletal structures are intact and normal. Impression: 1. No acute cardiopulmonary process. Signed by Schuyler Burrell MD 07/04/2016 07:30 A
== END 2016-07-03 23:12 | disposition home or self-care (01) ==
LOC: M ED 21:42
DX: J44.1 Chronic obstructive pulmonary disease with (acute) exacerbation (principal); J00 Acute nasopharyngitis [common cold]

== ENCOUNTER 2016-07-24 08:27 | Emergency (ER) | payer MEDICARE, MEDICAID ==
[~2016-07-24] VITALS: Ht 172.7 cm; Wt 78.9 kg
--- NOTE | 2016-07-24 12:05 | REP ---
CT of the brain without IV contrast: Comparison is 2015. There is no hemorrhage, edema, mass effect or midline shift. The cortical stripe is unremarkable. The ventricles and sulci are mildly dilated, unchanged, compatible with mild diffuse volume loss. There is opacification of many of the ethmoid sinus air cells, compatible with sinusitis. Impression: There is no hemorrhage, acute infarct or mass. There is mild diffuse volume loss, unchanged. There is ethmoid sinusitis. Signed by Tulio Tirado MD 07/24/2016 11:57 A
[2016-07-24] MEDS ORDERED: MORPHINE 2 MG/ML 1ML SYRINGE IV ONE (12:15)
[2016-07-24] MEDS ORDERED: METOCLOPRAMIDE INJ 10MG/2ML VIAL (J2765) IV ONE (12:15)
[2016-07-24 12:36] LABS: BASO # 0.1 K/mm3 (0.0-0.2); BASO % 1.1 % (0.0-1.0); EOS # 0.5 K/mm3 (0.0-0.50); EOS % 9.3 % (0.0-3.0); LARGE UNSTAINED CELL # 0.1 K/mm3 (0.0-0.4); LARGE UNSTAINED CELL % 1.9 % (0.0-4.0); LYMPH % 33.3 % (24.0-44.0); MEAN CORPUSCULAR HEMOGLOBIN 32.9 pg (27.0-33.0); MEAN CORPUSCULAR HGB CONC 33.7 g/dl (32.0-36.5); MEAN CORPUSCULAR VOLUME 97.7 fl (80.0-96.0); MONO # 0.3 K/mm3 (0.0-0.8); MONO % 5.7 % (0.0-5.0); NEUTROPHILS # 2.8 K/mm3 (1.8-7.7); NEUTROPHILS % 48.7 % (36.0-66.0); PLATELET COUNT, AUTOMATED 157 k/mm3 (150-450); RED CELL DISTRIBUTION WIDTH 14.6 % (11.5-14.5); WHITE BLOOD COUNT 5.7 K/mm3 (4.0-10.0)
[2016-07-24 12:50] LABS: ANION GAP 7 MEQ/L (8-16); BLOOD UREA NITROGEN 11 MG/DL (7-18); CALCIUM LEVEL 8.7 MG/DL (8.8-10.2); CARBON DIOXIDE LEVEL 26 MEQ/L (21-32); CHLORIDE LEVEL 108 MEQ/L (98-107); CREATININE FOR GFR 0.84 MG/DL (0.70-1.30); GLOMERULAR FILTRATION RATE > 60.0 (>49); GLUCOSE, FASTING 153 MG/DL (80-110); POTASSIUM SERUM 3.6 MEQ/L (3.5-5.1); SODIUM LEVEL 141 MEQ/L (136-145)
[2016-07-24 12:54] VITALS: BP 133/69
[2016-07-24] MEDS ORDERED: IPRATROPIUM 0.5MG/ALBUTEROL 2.5MG INH SOL UD 3ML (DUONEB)(J7620) NEB ONE (13:30)
--- NOTE | 2016-07-25 14:03 | ECGEPIP ---
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
== END 2016-07-24 14:24 | disposition home or self-care (01) ==
LOC: M ED 12:25
DX: G43.909 Migraine, unspecified, not intractable, without status migrainosus (principal); I25.10 Atherosclerotic heart disease of native coronary artery without angina pectoris; E11.9 Type 2 diabetes mellitus without complications; I10 Essential (primary) hypertension; J44.9 Chronic obstructive pulmonary disease, unspecified; G20 Parkinson's disease; G30.9 Alzheimer's disease, unspecified; F17.210 Nicotine dependence, cigarettes, uncomplicated; F10.20 Alcohol dependence, uncomplicated; Z88.6 Allergy status to analgesic agent; Z88.8 Allergy status to other drugs, medicaments and biological substances; Z88.0 Allergy status to penicillin; Z79.899 Other long term (current) drug therapy; Z79.82 Long term (current) use of aspirin; Z79.01 Long term (current) use of anticoagulants; R56.9 Unspecified convulsions; H26.9 Unspecified cataract; I25.2 Old myocardial infarction; E78.00 Pure hypercholesterolemia, unspecified; K21.9 Gastro-esophageal reflux disease without esophagitis; Z79.4 Long term (current) use of insulin
CPT/HCPCS: 36415; 70450; 80048; 84443; 85025; 93005; 93041; 94640; 94760; 96374; 96375; 99284; J2765

== ENCOUNTER 2016-08-08 04:39 | Emergency (ER) | payer MEDICARE, MEDICAID ==
[~2016-08-08] VITALS: Ht 172.7 cm; Wt 80.7 kg
[2016-08-08 04:48] VITALS: BP 137/88
[2016-08-08] MEDS ORDERED: ALBUTEROL 90 MCG/ACT 8GM HFA INHALER INH ONE (06:30)
[2016-08-08] MEDS ORDERED: BACL10TA2 PO (06:31)
[2016-08-08] MEDS ORDERED: TRAM50TA2 PO (06:31)
== END 2016-08-08 06:48 | disposition home or self-care (01) ==
LOC: M ED 06:34
DX: M51.9 Unspecified thoracic, thoracolumbar and lumbosacral intervertebral disc disorder (principal); G89.29 Other chronic pain; M54.9 Dorsalgia, unspecified; J44.1 Chronic obstructive pulmonary disease with (acute) exacerbation; I25.2 Old myocardial infarction; E11.9 Type 2 diabetes mellitus without complications; E78.5 Hyperlipidemia, unspecified; K44.9 Diaphragmatic hernia without obstruction or gangrene; I50.9 Heart failure, unspecified; R51 Headache; R56.9 Unspecified convulsions; Z85.118 Personal history of other malignant neoplasm of bronchus and lung; F17.200 Nicotine dependence, unspecified, uncomplicated; Z79.82 Long term (current) use of aspirin; Z79.84 Long term (current) use of oral hypoglycemic drugs; Z79.899 Other long term (current) drug therapy; Z88.6 Allergy status to analgesic agent; Z88.8 Allergy status to other drugs, medicaments and biological substances; Z88.0 Allergy status to penicillin; J30.1 Allergic rhinitis due to pollen

== ENCOUNTER 2016-08-12 22:32 | Emergency (ER) | payer MEDICARE, MEDICAID ==
[~2016-08-12] VITALS: Ht 172.7 cm; Wt 80.3 kg
[~2016-08-12 22:32] MED LIST changes: +BACL10TA2 PO; +TRAM50TA2 PO
[2016-08-13] MEDS ORDERED: PERCOCET 5MG/325MG TAB PO ONE (01:30)
[2016-08-13 03:27] VITALS: BP 125/76
[2016-08-13] MEDS ORDERED: OXYCODONE/APAP 5MG/325MG(BULK FOR ED) 1 TABLET PO ONE (03:30)
--- NOTE | 2016-08-13 09:16 | REP ---
AP PELVIS: Single AP view of the pelvis is performed. There is no acute fracture or dislocation. There is mild degenerative change at both hip joints and sacroiliac joints. Soft tissue calcified granulomas are seen in the left buttock soft tissues. IMPRESSION: Degenerative changes without fracture or dislocation. Signed by Tulio Poole MD 08/13/2016 05:40 P
--- NOTE | 2016-08-13 09:19 | REP ---
LUMBOSACRAL SPINE: Five views of the lumbosacral spine are performed. There is no compression fracture. There is relatively normal lumbar lordosis. There is no spondylolysis or spondylolisthesis. There is mild to moderate diffuse spurring. There is mild disc space narrowing and subchondral sclerosis at all levels. There is sclerosis and spurring at the posterior facet joints. Posterior elements are intact. IMPRESSION: Degenerative changes without fracture or dislocation. Signed by Tulio Poole MD 08/13/2016 05:40 P
== END 2016-08-13 03:29 | disposition home or self-care (01) ==
LOC: EDBD 22:32 → M ED 08-13 00:15
DX: M54.5 Low back pain (principal); M85.88 Other specified disorders of bone density and structure, other site; M51.37 Other intervertebral disc degeneration, lumbosacral region; M25.78 Osteophyte, vertebrae; M16.0 Bilateral primary osteoarthritis of hip; J45.909 Unspecified asthma, uncomplicated; J44.9 Chronic obstructive pulmonary disease, unspecified; F17.200 Nicotine dependence, unspecified, uncomplicated; Z79.899 Other long term (current) drug therapy; Z79.4 Long term (current) use of insulin; Z79.82 Long term (current) use of aspirin; Z88.8 Allergy status to other drugs, medicaments and biological substances; Z88.0 Allergy status to penicillin; J30.1 Allergic rhinitis due to pollen

== ENCOUNTER 2016-08-19 14:15 | Emergency (ER) | payer MEDICARE, MEDICAID ==
[~2016-08-19] VITALS: Ht 172.7 cm; Wt 79.8 kg
[2016-08-19 16:36] LABS: ANION GAP 7 MEQ/L (8-16); BLOOD UREA NITROGEN 13 MG/DL (7-18); CALCIUM LEVEL 8.6 MG/DL (8.8-10.2); CARBON DIOXIDE LEVEL 25 MEQ/L (21-32); CHLORIDE LEVEL 108 MEQ/L (98-107); CREATININE FOR GFR 0.91 MG/DL (0.70-1.30); GLOMERULAR FILTRATION RATE > 60.0 (>49); GLUCOSE, FASTING 112 MG/DL (80-110); POTASSIUM SERUM 4.4 MEQ/L (3.5-5.1); SODIUM LEVEL 140 MEQ/L (136-145)
[2016-08-19] MEDS ORDERED: TRAM50TA2 PO (16:51)
[2016-08-19] MEDS ORDERED: traMADol 50 MG TAB PO ONE (17:00)
[2016-08-19 17:08] VITALS: BP 134/76
--- NOTE | 2016-08-20 12:11 | REP ---
REASON: Pain. No history of trauma whatsoever. Seven views were obtained. There is marked disc space narrowing seen posteriorly at every level with universal disc space narrowing at C3-4. There is anterolisthesis of C5 on C6 of 5 mm. Hypertrophic degenerative facet and uncovertebral joint changes are present at every level bilaterally. There is extreme limitation of flexion and extension. The facet joints appear to maintain alignment. Vertebral body height is within normal limits. The dens cannot be effectively evaluated secondary to the superimposition of osseous structures and/or dentition on all views. Although this plain radiographic evaluation of the cervical spine shows no evidence of a fracture, it should be remembered that CT is much more sensitive than plain radiography of the C-spine in detecting fractures. If this examination was ordered to rule out a fracture, than CT of the cervical spine is recommended. IMPRESSION: Marked chronic changes as described above. If a fracture is of clinical concern then CT is recommended since this plain film exam cannot rule out a fracture. Signed by Miguel Duran DO 08/20/2016 03:17 P
== END 2016-08-19 17:14 | disposition home or self-care (01) ==
LOC: M ED 16:15
DX: G89.29 Other chronic pain (principal); G20 Parkinson's disease; F17.200 Nicotine dependence, unspecified, uncomplicated; R51 Headache; R56.9 Unspecified convulsions; I50.9 Heart failure, unspecified; E78.00 Pure hypercholesterolemia, unspecified; I10 Essential (primary) hypertension; R07.9 Chest pain, unspecified; Z86.79 Personal history of other diseases of the circulatory system; Z86.718 Personal history of other venous thrombosis and embolism; J45.909 Unspecified asthma, uncomplicated; G47.30 Sleep apnea, unspecified; Z85.118 Personal history of other malignant neoplasm of bronchus and lung; K44.9 Diaphragmatic hernia without obstruction or gangrene; Z87.442 Personal history of urinary calculi; E11.9 Type 2 diabetes mellitus without complications; F32.9 Major depressive disorder, single episode, unspecified; Z79.82 Long term (current) use of aspirin; Z79.4 Long term (current) use of insulin; Z79.84 Long term (current) use of oral hypoglycemic drugs; Z79.899 Other long term (current) drug therapy; Z88.6 Allergy status to analgesic agent; Z88.0 Allergy status to penicillin; Z88.1 Allergy status to other antibiotic agents

== ENCOUNTER 2016-09-01 21:11 | Emergency (ER) | payer MEDICARE, MEDICAID ==
[~2016-09-01] VITALS: Ht 172.7 cm; Wt 79.8 kg
[2016-09-01] MEDS ORDERED: ASPIRIN 81 MG CHEW TABLET PO ONE (21:45)
[2016-09-01 21:54] LABS: BASO # 0.1 K/mm3 (0.0-0.2); BASO % 1.1 % (0.0-1.0); EOS # 0.2 K/mm3 (0.0-0.50); EOS % 3.7 % (0.0-3.0); LARGE UNSTAINED CELL # 0.4 K/mm3 (0.0-0.4); LARGE UNSTAINED CELL % 6.8 % (0.0-4.0); LYMPH # 2.9 K/mm3 (1.5-4.5); LYMPH % 47.7 % (24.0-44.0); MEAN CORPUSCULAR HEMOGLOBIN 33.1 pg (27.0-33.0); MEAN CORPUSCULAR HGB CONC 33.7 g/dl (32.0-36.5); MEAN CORPUSCULAR VOLUME 98.3 fl (80.0-96.0); MONO # 0.4 K/mm3 (0.0-0.8); MONO % 6.4 % (0.0-5.0); NEUTROPHILS # 2.1 K/mm3 (1.8-7.7); NEUTROPHILS % 34.4 % (36.0-66.0); PLATELET COUNT, AUTOMATED 137 k/mm3 (150-450); RED CELL DISTRIBUTION WIDTH 14.5 % (11.5-14.5); WHITE BLOOD COUNT 6.1 K/mm3 (4.0-10.0)
[2016-09-01 21:59] LABS: INR 1.22
[2016-09-01 22:15] LABS: ALBUMIN 3.3 GM/DL (3.2-5.2); ALBUMIN/GLOBULIN RATIO 0.83 (1.00-1.93); ALKALINE PHOSPHATASE 79 U/L (45-117); ALT/SGPT 50 U/L (12-78); ANION GAP 7 MEQ/L (8-16); AST/SGOT 39 U/L (15-37); BILIRUBIN,DIRECT 0.1 MG/DL (0.0-0.2); BILIRUBIN,TOTAL 0.3 MG/DL (0.2-1.0); BLOOD UREA NITROGEN 10 MG/DL (7-18); CALCIUM LEVEL 7.9 MG/DL (8.8-10.2); CARBON DIOXIDE LEVEL 27 MEQ/L (21-32); CHLORIDE LEVEL 103 MEQ/L (98-107); CREATININE FOR GFR 0.79 MG/DL (0.70-1.30); GLOMERULAR FILTRATION RATE > 60.0 (>49); GLUCOSE, FASTING 179 MG/DL (80-110); POTASSIUM SERUM 3.6 MEQ/L (3.5-5.1); SODIUM LEVEL 137 MEQ/L (136-145); TOTAL PROTEIN 7.3 GM/DL (6.4-8.2)
[2016-09-01] MEDS ORDERED: IPRATROPIUM 0.5MG/ALBUTEROL 2.5MG INH SOL UD 3ML (DUONEB)(J7620) NEB ONE (22:45)
[2016-09-01] MEDS: NITROGLYCERIN 0.4 MG SUBL TABLET SL PRN ×3 (22:45→22:55)
[2016-09-01] MEDS ORDERED: ISOVUE-370 76% 100ML VIAL (Q9967) As Ordered ONE (22:53)
[2016-09-01 23:08] LABS: DIGOXIN LEVEL 0.4 NG/ML (0.5-2.0)
[2016-09-02] MEDS ORDERED: traZODone 100 MG TAB PO ONE
--- NOTE | 2016-09-02 00:10 | REPUSA ---
CLINICAL HISTORY: Chest pain and shortness of breath. TECHNIQUE: CT chest with IV contrast. COMPARISON: June 23, 2016. CT CHEST WITH CONTRAST: Pulmonary arteries: Patent, without emboli. Small filling defects in the right middle lobe are due to respiratory motion and streak artifact rather than true pulmonary emboli. Lungs: Bilateral upper lobe mild emphysematous changes. 3 mm left lower lobe nodule is unchanged. No pneumothorax, infiltrate, masses or effusion. Heart: Normal size. No significant effusion. Aorta: Normal caliber, without aneurysm or dissection. Mediastinum and yonas: No lymphadenopathy. Bony thorax: No acute findings. Limited upper abdomen: No acute findings. IMPRESSION: No evidence of pulmonary embolism. No acute thoracic process.
[2016-09-02 03:28] VITALS: BP 134/65
--- NOTE | 2016-09-02 08:03 | REP ---
Clinical: Chest pain . Comparison: 07/03/2016 . Technique: PA and lateral. Findings: The mediastinum and cardiac silhouette are normal. The lung forte are clear and without acute consolidation, effusion, or pneumothorax. The skeletal structures are intact and normal. Impression: 1. No acute cardiopulmonary process. Signed by Schuyler Burrell MD 09/02/2016 07:56 A
--- NOTE | 2016-09-03 07:10 | ECGEPIP ---
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
== END 2016-09-02 03:30 | disposition left against medical advice (07) ==
LOC: M ED 22:27
DX: R07.9 Chest pain, unspecified (principal); I48.91 Unspecified atrial fibrillation; E11.9 Type 2 diabetes mellitus without complications; E78.5 Hyperlipidemia, unspecified; K21.9 Gastro-esophageal reflux disease without esophagitis; G20 Parkinson's disease; G40.909 Epilepsy, unspecified, not intractable, without status epilepticus; M54.9 Dorsalgia, unspecified; F17.200 Nicotine dependence, unspecified, uncomplicated; Z90.49 Acquired absence of other specified parts of digestive tract; Z90.89 Acquired absence of other organs; Z88.0 Allergy status to penicillin; Z79.4 Long term (current) use of insulin; Z79.82 Long term (current) use of aspirin; Z79.899 Other long term (current) drug therapy
CPT/HCPCS: 36415; 71010; 71275; 80048; 80076; 80162; 82550; 82553; 83690; 83880; 84484; 85025; 85610; 85730; 93005; 93041; 94640; 94760; 99285; Q9967

== ENCOUNTER 2016-09-12 02:50 | Emergency (ER) | payer MEDICARE, MEDICAID ==
[~2016-09-12] VITALS: Ht 172.7 cm; Wt 68.9 kg
[2016-09-12 03:10] VITALS: BP 170/92
[2016-09-12] MEDS ORDERED: LORazepam 2 MG/ML VIAL (J2060) IV STA (03:34)
[2016-09-12] MEDS ORDERED: methylPREDNISolone INJ 125 MG/2 ML VIAL (J2930) IV ONE (03:45)
[2016-09-12 04:07] LABS: VENOUS BASE EXCESS -3.1 (-2.0-2.0); VENOUS O2 SATURATION 84.2 % (60.0-80.0); VENOUS PARTIAL PRESSURE CO2 38.2 mmHg (38.0-50.0); VENOUS PARTIAL PRESSURE O2 50.7 mmHg (30.0-50.0); VENOUS STANDARD HCO3 21.6 MEQ/L; VENOUS TOTAL CO2 22.9 MEQ/L (24.0-28.0)
[2016-09-12 04:09] LABS: BASO # 0.1 K/mm3 (0.0-0.2); BASO % 1.3 % (0.0-1.0); EOS # 0.4 K/mm3 (0.0-0.50); EOS % 4.8 % (0.0-3.0); LARGE UNSTAINED CELL # 0.3 K/mm3 (0.0-0.4); LARGE UNSTAINED CELL % 3.3 % (0.0-4.0); LYMPH % 36.8 % (24.0-44.0); MEAN CORPUSCULAR HEMOGLOBIN 32.7 pg (27.0-33.0); MEAN CORPUSCULAR HGB CONC 34.6 g/dl (32.0-36.5); MEAN CORPUSCULAR VOLUME 94.5 fl (80.0-96.0); MONO # 0.5 K/mm3 (0.0-0.8); MONO % 6.9 % (0.0-5.0); NEUTROPHILS # 3.5 K/mm3 (1.8-7.7); NEUTROPHILS % 46.9 % (36.0-66.0); PLATELET COUNT, AUTOMATED 276 k/mm3 (150-450); RED CELL DISTRIBUTION WIDTH 15.5 % (11.5-14.5); WHITE BLOOD COUNT 7.4 K/mm3 (4.0-10.0)
[2016-09-12] MEDS: IPRATROPIUM 0.5MG/ALBUTEROL 2.5MG INH SOL UD 3ML (DUONEB)(J7620) NEB PRN ×3 (04:13→04:39)
[2016-09-12 04:31] LABS: ANION GAP 8 MEQ/L (8-16); BLOOD UREA NITROGEN 7 MG/DL (7-18); CALCIUM LEVEL 8.4 MG/DL (8.8-10.2); CARBON DIOXIDE LEVEL 24 MEQ/L (21-32); CHLORIDE LEVEL 105 MEQ/L (98-107); CREATININE FOR GFR 0.77 MG/DL (0.70-1.30); GLOMERULAR FILTRATION RATE > 60.0 (>49); GLUCOSE, FASTING 167 MG/DL (80-110); POTASSIUM SERUM 3.6 MEQ/L (3.5-5.1); SODIUM LEVEL 137 MEQ/L (136-145)
[2016-09-12] MEDS ORDERED: PRED20TA PO (05:37)
[2016-09-12] MEDS ORDERED: ALBUTEROL 90 MCG/ACT 8GM HFA INHALER INH ONE (05:45)
--- NOTE | 2016-09-12 08:40 | REP ---
Portable chest, 04:04 a.m., 09/12/2016: Comparison is 09/01/2016. The lung forte are clear. Cardiac size is normal. The yonas, mediastinum, and bony thorax are unremarkable. There is no interval change. Impression: Negative portable chest. Signed by Tulio Tirado MD 09/12/2016 08:31 A
--- NOTE | 2016-09-13 08:40 | ECGEPIP ---
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
== END 2016-09-12 06:19 | disposition home or self-care (01) ==
LOC: EDBD 02:50 → M ED 03:32
DX: J44.9 Chronic obstructive pulmonary disease, unspecified (principal); F41.0 Panic disorder [episodic paroxysmal anxiety]; I51.9 Heart disease, unspecified; J30.2 Other seasonal allergic rhinitis; F17.200 Nicotine dependence, unspecified, uncomplicated; R94.31 Abnormal electrocardiogram [ECG] [EKG]; Z79.82 Long term (current) use of aspirin; Z79.4 Long term (current) use of insulin; Z79.84 Long term (current) use of oral hypoglycemic drugs; Z79.899 Other long term (current) drug therapy; Z88.6 Allergy status to analgesic agent; Z88.8 Allergy status to other drugs, medicaments and biological substances; Z88.0 Allergy status to penicillin
CPT/HCPCS: 36415; 71010; 80048; 82550; 82553; 82803; 84484; 85025; 87040; 93005; 93041; 94640; 96374; 96375; 99284; J2060; J2930

== ENCOUNTER 2016-09-27 11:25 | Emergency (ER) | payer MEDICARE, MEDICAID ==
[~2016-09-27] VITALS: Ht 172.7 cm; Wt 71.5 kg
[2016-09-27] MEDS ORDERED: NORCO, ANEXSIA 5/325MG TABLET (HYDROcodone/ACETAMINOPHEN) PO ONE (13:00)
--- NOTE | 2016-09-27 13:37 | REP ---
AP pelvis and left hip AP pelvis: Mineralization is normal. The sacroiliac articulations are unremarkable. There is no fracture. There is mild joint space narrowing of the left hip. The right hip is unremarkable. There are multiple calcified granulomas in the left buttocks. Impression: Mild joint space narrowing of the left hip, calcified granulomas in the left buttock, otherwise, negative AP pelvis. Left hip two views: There is mild joint space narrowing superiorly. This is compatible with early osteoarthritis. There is no fracture or dislocation. Mineralization normal. There are calcified granulomas in the left buttocks. Signed by Tulio Tirado MD 09/27/2016 01:29 P
[2016-09-27] MEDS ORDERED: PRED20TA PO (13:45)
[2016-09-27] MEDS ORDERED: NORCOTAB PO (13:45)
[2016-09-27] MEDS ORDERED: ALBU17IN INH (13:45)
--- NOTE | 2016-09-27 13:45 | REP ---
LUMBOSACRAL SPINE: Five views of the lumbosacral spine are performed. There is no compression fracture. There is normal lumbar lordosis with no spondylolysis or spondylolisthesis. Large bridging osteophytes are seen anteriorly at T11 through L1. There is mild spurring of L2 through L5. There is mild disc space narrowing and subchondral sclerosis at all levels. There is sclerosis and spurring of the posterior facet joints. The posterior elements are intact. IMPRESSION: Degenerative change without evidence of acute fracture or dislocation. Signed by Tulio Poole MD 09/27/2016 04:28 P
[2016-09-27 13:53] VITALS: BP 121/69
[2016-10-02] MEDS ORDERED: PERC5TAB6 PO (03:41)
== END 2016-09-27 13:58 | disposition home or self-care (01) ==
LOC: M ED 12:26
DX: M16.12 Unilateral primary osteoarthritis, left hip (principal); M54.5 Low back pain; M25.552 Pain in left hip; Z85.118 Personal history of other malignant neoplasm of bronchus and lung; I50.9 Heart failure, unspecified; I25.2 Old myocardial infarction; E10.9 Type 1 diabetes mellitus without complications; F41.9 Anxiety disorder, unspecified; F32.9 Major depressive disorder, single episode, unspecified; F17.200 Nicotine dependence, unspecified, uncomplicated; J30.2 Other seasonal allergic rhinitis; Z79.82 Long term (current) use of aspirin; Z79.4 Long term (current) use of insulin; Z79.899 Other long term (current) drug therapy; Z88.6 Allergy status to analgesic agent; Z88.0 Allergy status to penicillin; Z88.8 Allergy status to other drugs, medicaments and biological substances

== ENCOUNTER 2016-09-30 18:16 | Emergency (ER) | payer MEDICARE, MEDICAID ==
[~2016-09-30] VITALS: Ht 172.7 cm; Wt 65.5 kg
[~2016-09-30 18:16] MED LIST changes: -KEPP1000 PO; +KEPP10002 PO; -METF1000 PO; +METF10004 PO; -METF500T PO; +METF500T13 PO; +NORCOTAB PO; -TOPI50TA4 PO; +TOPI50TA9 PO; +TRAZ-136 PO; -TRAZ100T4 PO; -TRAZ150T14 PO; +TRAZ1TAB14 PO
[2016-09-30 18:18] VITALS: BP 146/92
[2016-09-30] MEDS ORDERED: NORCO, ANEXSIA 5/325MG TABLET (HYDROcodone/ACETAMINOPHEN) PO ONE (19:00)
== END 2016-09-30 19:11 | disposition home or self-care (01) ==
LOC: M ED 18:55
DX: S70.02XA Contusion of left hip, initial encounter (principal); W01.0XXA Fall on same level from slipping, tripping and stumbling without subsequent striking against object, initial encounter; Y92.238 Other place in hospital as the place of occurrence of the external cause; Y93.89 Activity, other specified; Y99.8 Other external cause status; Z79.4 Long term (current) use of insulin; Z79.82 Long term (current) use of aspirin; Z79.51 Long term (current) use of inhaled steroids; Z79.899 Other long term (current) drug therapy; J30.2 Other seasonal allergic rhinitis; Z88.0 Allergy status to penicillin; Z88.5 Allergy status to narcotic agent; Z88.6 Allergy status to analgesic agent; Z88.8 Allergy status to other drugs, medicaments and biological substances

== ENCOUNTER 2016-10-01 21:04 | Emergency (ER) | payer MEDICARE, MEDICAID ==
[~2016-10-01] VITALS: Ht 172.7 cm; Wt 64.0 kg
[2016-10-01] MEDS ORDERED: NS 1,000 ML IV ONE (22:15)
[2016-10-01] MEDS ORDERED: MORPHINE 2 MG/ML 1ML SYRINGE IV ONE (22:30)
[2016-10-01] MEDS ORDERED: IPRATROPIUM 0.5MG/ALBUTEROL 2.5MG INH SOL UD 3ML (DUONEB)(J7620) NEB ONE (22:45)
[2016-10-01 23:13] LABS: BASO % 0.6 % (0.0-1.0); EOS # 0.2 K/mm3 (0.0-0.50); EOS % 3.6 % (0.0-3.0); LARGE UNSTAINED CELL # 0.1 K/mm3 (0.0-0.4); LARGE UNSTAINED CELL % 2.2 % (0.0-4.0); LYMPH # 2.7 K/mm3 (1.5-4.5); LYMPH % 48.1 % (24.0-44.0); MEAN CORPUSCULAR HEMOGLOBIN 32.5 pg (27.0-33.0); MEAN CORPUSCULAR HGB CONC 33.7 g/dl (32.0-36.5); MEAN CORPUSCULAR VOLUME 96.3 fl (80.0-96.0); MONO # 0.3 K/mm3 (0.0-0.8); MONO % 5.4 % (0.0-5.0); NEUTROPHILS # 2.1 K/mm3 (1.8-7.7); NEUTROPHILS % 40.1 % (36.0-66.0); PLATELET COUNT, AUTOMATED 227 k/mm3 (150-450); RED CELL DISTRIBUTION WIDTH 15.9 % (11.5-14.5); WHITE BLOOD COUNT 5.3 K/mm3 (4.0-10.0)
[2016-10-01 23:16] LABS: ALBUMIN 3.2 GM/DL (3.2-5.2); ALBUMIN/GLOBULIN RATIO 1.03 (1.00-1.93); ALKALINE PHOSPHATASE 64 U/L (45-117); ALT/SGPT 27 U/L (12-78); AMYLASE 31 U/L (25-115); ANION GAP 5 MEQ/L (8-16); AST/SGOT 12 U/L (15-37); BILIRUBIN,DIRECT 0.2 MG/DL (0.0-0.2); BILIRUBIN,TOTAL 0.4 MG/DL (0.2-1.0); BLOOD UREA NITROGEN 11 MG/DL (7-18); CALCIUM LEVEL 8.1 MG/DL (8.8-10.2); CARBON DIOXIDE LEVEL 25 MEQ/L (21-32); CHLORIDE LEVEL 110 MEQ/L (98-107); GLOMERULAR FILTRATION RATE > 60.0 (>49); GLUCOSE, FASTING 229 MG/DL (80-110); POTASSIUM SERUM 3.3 MEQ/L (3.5-5.1); SODIUM LEVEL 140 MEQ/L (136-145); TOTAL PROTEIN 6.3 GM/DL (6.4-8.2)
[2016-10-01] MEDS ORDERED: ISOVUE-370 76% 100ML VIAL (Q9967) As Ordered ONE (23:44)
[2016-10-01] MEDS ORDERED: POTASSIUM CHLORIDE 10 MEQ SR TABLET PO ONE (23:45)
[2016-10-02] MEDS ORDERED: PERCOCET 5MG/325MG TAB PO ONE (00:15)
[2016-10-02] MEDS ORDERED: OXYCODONE/APAP 5MG/325MG(BULK FOR ED) 1 TABLET PO ONE (01:00)
--- NOTE | 2016-10-02 01:30 | REPUSA ---
CLINICAL HISTORY: Abdominal pain. TECHNIQUE: Multiple axial, sagittal and coronal CT images were obtained through the abdomen and pelvi s after administration of oral and intravenous contrast material. COMMENTS: The liver is of uniform attenuation without mass or defect. There is no intra or extrahepatic biliary ductal dilatation. The spleen is normal. The gallbladder is surgically absent. The pancreas is of no rmal contour and attenuation characteristics. There is no evidence of adrenal mass. Both kidneys demonstrate prompt and equal nephrograms. The kidneys are normal in size, shape and conf iguration. There is no evidence of renal or ureteral mass. No right renal or ureteral calculi are claudia ntified. 6 mm left renal nonobstructing calculus. There is no hydroureter or hydronephrosis. No evidence for appendicitis. There is no bowel wall thickening. No evidence for small or large luzma l obstruction. There is no evidence of abdominal ascites or lymphadenopathy. There is no evidence of intrinsic or extrinsic bladder mass. There is no pelvic ascites or lymphadeno luis miguel. Images of the lung bases show no evidence of pleural or parenchymal mass. There are no pleural effusi ons. The bony structures are free of lytic or blastic lesions. Multilevel degenerative changes are seen in volving the thoracolumbar spine. Scattered calcifications are seen involving the aorta and major bran ches compatible with atherosclerosis. IMPRESSION: No evidence of acute abdominal or pelvic pathology. Prior cholecystectomy. Nonobstructing left nephrolithiasis. Thank you for your kind referral of this patient.
--- NOTE | 2016-10-02 01:30 | REPUSA ---
CLINICAL HISTORY: Trauma. TECHNIQUE: Multiple axial CT images were obtained through the thorax with IV contrast material. COMMENTS: Comparison is made to the prior exam performed on 09/01/2016. Unchanged moderate emphysema. There is no evidence of pleural or parenchymal mass. There are no pleural effusions. There is no evid ence of hilar or mediastinal lymphadenopathy. The heart and great vessels are within normal limits. The visualized portions of the liver are of uniform attenuation without mass or defect. There is no i ntra or extrahepatic biliary ductal dilatation. The spleen is unremarkable. The visualized pancreas i s of normal contour and attenuation characteristics. There is no evidence of adrenal mass. The visual ized portions of the kidneys present no abnormalities. The bony structures are free of lytic or blastic lesions. Post contrast images demonstrate no evidence for abnormal enhancement. IMPRESSION: Unchanged moderate pulmonary emphysema. No evidence of acute thoracic pathology. Thank you for your kind referral of this patient.
[2016-10-02] MEDS ORDERED: IPRATROPIUM 0.5MG/ALBUTEROL 2.5MG INH SOL UD 3ML (DUONEB)(J7620) NEB ONE (02:00)
[2016-10-02] MEDS ORDERED: PERC5TAB12 PO (03:41)
[2016-10-02 03:51] VITALS: BP 134/89
== END 2016-10-02 03:56 | disposition home or self-care (01) ==
LOC: EDBD 21:04 → M ED 21:21
DX: S30.1XXA Contusion of abdominal wall, initial encounter (principal); Y04.8XXA Assault by other bodily force, initial encounter; Y92.410 Unspecified street and highway as the place of occurrence of the external cause; Y93.89 Activity, other specified; Y99.8 Other external cause status; N20.0 Calculus of kidney; E11.9 Type 2 diabetes mellitus without complications; G89.29 Other chronic pain; J44.9 Chronic obstructive pulmonary disease, unspecified; G40.909 Epilepsy, unspecified, not intractable, without status epilepticus; G20 Parkinson's disease; F17.200 Nicotine dependence, unspecified, uncomplicated; Z79.01 Long term (current) use of anticoagulants; Z79.4 Long term (current) use of insulin; Z79.899 Other long term (current) drug therapy; Z88.0 Allergy status to penicillin; Z88.1 Allergy status to other antibiotic agents; Z88.5 Allergy status to narcotic agent; Z88.8 Allergy status to other drugs, medicaments and biological substances
CPT/HCPCS: 71260; 74177; 80048; 80076; 81001; 82150; 83690; 85025; 94640; 96374; 99284; Q9967

== ENCOUNTER 2016-10-08 18:02 | Emergency (ER) | payer MEDICARE, MEDICAID ==
[~2016-10-08] VITALS: Ht 172.7 cm; Wt 62.7 kg
[~2016-10-08 18:02] MED LIST changes: +KEPP1000 PO; -KEPP10002 PO; +METF1000 PO; -METF10004 PO; +METF500T PO; -METF500T13 PO; +PERC5TAB6 PO; +TOPI50TA4 PO; -TOPI50TA9 PO; -TRAZ-136 PO; +TRAZ100T4 PO; +TRAZ150T14 PO; -TRAZ1TAB14 PO
[2016-10-08 18:04] VITALS: BP 136/82
== END 2016-10-08 19:43 | disposition left against medical advice (07) ==
LOC: M ED 19:40
DX: R29.6 Repeated falls (principal); Z53.29 Procedure and treatment not carried out because of patient's decision for other reasons

== ENCOUNTER 2016-10-22 03:38 | Emergency (ER) | payer MEDICARE, MEDICAID ==
[~2016-10-22 03:38] MED LIST changes: -KEPP1000 PO; +KEPP10002 PO; -METF1000 PO; +METF10004 PO; -METF500T PO; +METF500T13 PO; +PERC5TAB12 PO; -PERC5TAB6 PO; -TOPI50TA4 PO; +TOPI50TA9 PO; +TRAZ-136 PO; -TRAZ100T4 PO; -TRAZ150T14 PO; +TRAZ1TAB14 PO
[2016-10-22 03:46] VITALS: BP 140/82
[2016-10-22] MEDS ORDERED: LORazepam 1 MG TAB PO STA (03:54)
--- NOTE | 2016-10-22 09:37 | REP ---
LEFT HAND, FOUR VIEWS: HISTORY: Trauma. There is no acute fracture or dislocation. The joint spaces are normal in appearance. IMPRESSION: There is no acute fracture or dislocation. Signed by Best Ozuna MD 10/22/2016 09:46 A
== END 2016-10-22 04:51 | disposition home or self-care (01) ==
LOC: EDBD 03:38 → M ED 03:38
DX: S60.222A Contusion of left hand, initial encounter (principal); F41.1 Generalized anxiety disorder; W22.8XXA Striking against or struck by other objects, initial encounter; Y92.9 Unspecified place or not applicable; Y93.9 Activity, unspecified; Y99.9 Unspecified external cause status; E11.9 Type 2 diabetes mellitus without complications; I10 Essential (primary) hypertension; J44.9 Chronic obstructive pulmonary disease, unspecified; M19.90 Unspecified osteoarthritis, unspecified site; J30.2 Other seasonal allergic rhinitis; Z79.82 Long term (current) use of aspirin; Z79.899 Other long term (current) drug therapy; Z79.4 Long term (current) use of insulin; Z88.6 Allergy status to analgesic agent; Z88.0 Allergy status to penicillin; Z88.8 Allergy status to other drugs, medicaments and biological substances

== ENCOUNTER 2016-10-24 16:05 | Emergency (ER) | payer MEDICARE, MEDICAID ==
[~2016-10-24] VITALS: Ht 172.7 cm; Wt 59.0 kg
[2016-10-24] MEDS ORDERED: NORCO, ANEXSIA 5/325MG TABLET (HYDROcodone/ACETAMINOPHEN) PO ONE (17:00)
[2016-10-24] MEDS ORDERED: TRAM1CAP15 PO (17:25)
--- NOTE | 2016-10-24 17:47 | REP ---
PELVIS AND LEFT HIP: AP view of the pelvis and two views of the left hip are performed and demonstrate no fracture or dislocation. There is mild narrowing, subchondral sclerosis. And spurring at each hip joint. There also appears to be mild narrowing and sclerosis at the sacroiliac joints. Calcified buttock granulomas are seen on the left. IMPRESSION: Degenerative changes without fracture or dislocation. Signed by Tulio Poole MD 10/25/2016 10:50 A
[2016-10-24 17:59] VITALS: BP 114/80
== END 2016-10-24 18:49 | disposition home or self-care (01) ==
LOC: M ED 16:05 → EDBD 16:05 → M ED 18:49
DX: S76.012A Strain of muscle, fascia and tendon of left hip, initial encounter (principal); X58.XXXA Exposure to other specified factors, initial encounter; Y92.9 Unspecified place or not applicable; Y93.E5 Activity, floor mopping and cleaning; Y99.9 Unspecified external cause status; M16.12 Unilateral primary osteoarthritis, left hip; R56.9 Unspecified convulsions; I51.9 Heart disease, unspecified; Z79.82 Long term (current) use of aspirin; J30.2 Other seasonal allergic rhinitis; Z79.4 Long term (current) use of insulin; Z79.899 Other long term (current) drug therapy; Z88.0 Allergy status to penicillin; Z88.8 Allergy status to other drugs, medicaments and biological substances; Z88.6 Allergy status to analgesic agent

== ENCOUNTER → 2016-11-20 | Outpatient (REF) | payer MEDICARE, MEDICAID ==
[~2016-11-20] MED LIST changes: +ASPI1TAB PO; +CORT1SOL3 AU; +CRES5TAB PO; +DIGO0.25 PO; +DILT240C PO; +DOXY100T PO; +ESOM1CAP5 PO; +GABA-282 PO; +NEOM1SOL15 AU; +OXYC10TA12 PO; +TRAM1CAP15 PO
[2016-11-20 19:31] LABS: BASO # 0.1 K/mm3 (0.0-0.2); BASO % 1.3 % (0.0-1.0); EOS # 0.3 K/mm3 (0.0-0.50); EOS % 4.1 % (0.0-3.0); LARGE UNSTAINED CELL # 0.1 K/mm3 (0.0-0.4); LARGE UNSTAINED CELL % 1.8 % (0.0-4.0); LYMPH % 40.9 % (24.0-44.0); MEAN CORPUSCULAR HEMOGLOBIN 33.1 pg (27.0-33.0); MEAN CORPUSCULAR VOLUME 97.3 fl (80.0-96.0); MONO # 0.4 K/mm3 (0.0-0.8); MONO % 5.8 % (0.0-5.0); NEUTROPHILS # 3.3 K/mm3 (1.8-7.7); NEUTROPHILS % 46.1 % (36.0-66.0); PLATELET COUNT, AUTOMATED 279 k/mm3 (150-450); RED CELL DISTRIBUTION WIDTH 15.7 % (11.5-14.5); WHITE BLOOD COUNT 7.1 K/mm3 (4.0-10.0)
[2016-11-20 20:58] LABS: ALBUMIN 3.8 GM/DL (3.2-5.2); ALBUMIN/GLOBULIN RATIO 1.09 (1.00-1.93); ALKALINE PHOSPHATASE 74 U/L (45-117); ALT/SGPT 30 U/L (12-78); ANION GAP 13 MEQ/L (8-16); AST/SGOT 15 U/L (15-37); BILIRUBIN,TOTAL 0.4 MG/DL (0.2-1.0); BLOOD UREA NITROGEN 20 MG/DL (7-18); CALCIUM LEVEL 8.9 MG/DL (8.8-10.2); CARBON DIOXIDE LEVEL 19 MEQ/L (21-32); CHLORIDE LEVEL 110 MEQ/L (98-107); CREATININE FOR GFR 0.74 MG/DL (0.70-1.30); GLOMERULAR FILTRATION RATE > 60.0 (>49); GLUCOSE, FASTING 162 MG/DL (80-110); POTASSIUM SERUM 3.8 MEQ/L (3.5-5.1); SODIUM LEVEL 142 MEQ/L (136-145); TOTAL PROTEIN 7.3 GM/DL (6.4-8.2)
== END ==
LOC: M LAB REF 16:54
PROVIDERS: ATTEND Family Medicine Addiction Medicine
DX: E11.9 Type 2 diabetes mellitus without complications (principal); R63.4 Abnormal weight loss
CPT/HCPCS: 80053; 83036; 84443; 85025; G0103

== ENCOUNTER 2016-12-06 20:00 | Emergency (ER) | payer MEDICARE, MEDICAID ==
[~2016-12-06] VITALS: Ht 172.7 cm; Wt 81.8 kg
[~2016-12-06 20:00] MED LIST changes: -ASPI1TAB PO; -CORT1SOL3 AU; -CRES5TAB PO; -DIGO0.25 PO; -DILT240C PO; -DOXY100T PO; -ESOM1CAP5 PO; -GABA-282 PO; -NEOM1SOL15 AU; -OXYC10TA12 PO
[2016-12-06] MEDS ORDERED: ALBUTEROL SULFATE 2.5 MG/0.5 ML INH NEB SOLN NEB ONE (22:00)
[2016-12-06] MEDS ORDERED: CIPRODEX OTIC SUSP 7.5ML AU ONE (22:00)
[2016-12-06] MEDS ORDERED: oxyCODONE 5MG TAB PO ONE (22:00)
[2016-12-06] MEDS ORDERED: NEOM1SOL15 AU (23:07)
[2016-12-06] MEDS ORDERED: OXYC10TA12 PO (23:09)
[2016-12-06] MEDS ORDERED: ALBUTEROL 90 MCG/ACT 8GM HFA INHALER INH ONE (23:15)
[2016-12-06 23:18] VITALS: BP 132/64
== END 2016-12-06 23:19 | disposition home or self-care (01) ==
LOC: M ED 20:00
DX: J44.9 Chronic obstructive pulmonary disease, unspecified (principal); H66.93 Otitis media, unspecified, bilateral; G89.29 Other chronic pain; M54.9 Dorsalgia, unspecified; I25.10 Atherosclerotic heart disease of native coronary artery without angina pectoris; I50.9 Heart failure, unspecified; I25.2 Old myocardial infarction; E11.9 Type 2 diabetes mellitus without complications; I10 Essential (primary) hypertension; Z87.442 Personal history of urinary calculi; G40.909 Epilepsy, unspecified, not intractable, without status epilepticus; G47.30 Sleep apnea, unspecified; F31.9 Bipolar disorder, unspecified; K44.9 Diaphragmatic hernia without obstruction or gangrene; Z86.73 Personal history of transient ischemic attack (TIA), and cerebral infarction without residual deficits; F17.200 Nicotine dependence, unspecified, uncomplicated; Z79.82 Long term (current) use of aspirin; Z79.4 Long term (current) use of insulin; Z79.899 Other long term (current) drug therapy; Z88.6 Allergy status to analgesic agent; Z88.0 Allergy status to penicillin; Z88.8 Allergy status to other drugs, medicaments and biological substances

== ENCOUNTER 2016-12-26 20:29 | Emergency (ER) | payer MEDICARE, MEDICAID ==
[~2016-12-26] VITALS: Ht 172.7 cm; Wt 52.7 kg
[~2016-12-26 20:29] MED LIST changes: +NEOM1SOL15 AU; +OXYC10TA12 PO
[2016-12-26 22:03] VITALS: BP 148/76
--- NOTE | 2016-12-27 07:46 | REP ---
Clinical: Trauma. Comparison: 05/16/2016 Technique: AP, lateral, bilateral oblique views left elbow. Findings: The osseous structures and joint spaces are intact and normal. There is no evidence for acute fracture or dislocation. Surrounding soft tissues are unremarkable. No subcutaneous emphysema or radiodense foreign body. Impression: Stable. No acute fracture or dislocation. Signed by Schuyler Burrell MD 12/27/2016 07:38 A
--- NOTE | 2016-12-27 07:47 | REP ---
Clinical: Trauma. Technique: AP, lateral, bilateral oblique views left wrist. Comparison: 10/22/2016 Findings: The carpal bones, surrounding osseous structures, soft tissues, and joint spaces are normal. There is no evidence for acute fracture or dislocation. No subcutaneous emphysema or radiodense foreign body. Impression: Normal wrist series. No acute fracture or dislocation Signed by Schuyler Burrell MD 12/27/2016 07:39 A
== END 2016-12-26 22:04 | disposition home or self-care (01) ==
LOC: M ED 20:29
DX: S50.12XA Contusion of left forearm, initial encounter (principal); W19.XXXA Unspecified fall, initial encounter; Y92.009 Unspecified place in unspecified non-institutional (private) residence as the place of occurrence of the external cause; Y93.89 Activity, other specified; Y99.8 Other external cause status; G40.909 Epilepsy, unspecified, not intractable, without status epilepticus; F17.200 Nicotine dependence, unspecified, uncomplicated; Z88.6 Allergy status to analgesic agent; Z88.8 Allergy status to other drugs, medicaments and biological substances; Z88.0 Allergy status to penicillin; Z79.899 Other long term (current) drug therapy; Z79.01 Long term (current) use of anticoagulants; Z79.4 Long term (current) use of insulin; Z79.82 Long term (current) use of aspirin; Z79.51 Long term (current) use of inhaled steroids

== ENCOUNTER 2017-01-19 18:06 | Emergency (ER) | payer MEDICARE, MEDICAID ==
[~2017-01-19] VITALS: Ht 172.7 cm; Wt 64.1 kg
[2017-01-19] MEDS ORDERED: MORPHINE 4 MG/ML 1ML SYRINGE IM ONE (20:30)
[2017-01-19] MEDS ORDERED: IPRATROPIUM 0.5MG/ALBUTEROL 2.5MG INH SOL UD 3ML (DUONEB)(J7620) NEB ONE (21:00)
[2017-01-19 22:40] VITALS: BP 139/83
[2017-01-19] MEDS ORDERED: ACETAMINOPH W/CODEINE #3 TAB UD PO ONE (22:45)
--- NOTE | 2017-01-20 11:42 | REP ---
REASON: Back pain. COMPARISON: 09/27/2016 There is no change from the prior exam. There are stable chronic changes with disc space narrowing, anterior lipping, degenerative facet joint changes, and partial syndesmophyte formation all unchanged. The pedicles are again seen to be intact bilaterally. IMPRESSION: Stable chronic changes. No change from 09/27/2016. Signed by Miguel Duran DO 01/20/2017 10:22 A
--- NOTE | 2017-01-20 11:42 | REP ---
REASON: Trauma. PRIORS: 10/05/2015 There is syndesmophyte and partial syndesmophyte formation seen along both sides of the spine, particularly on the right. These changes are stable from the prior exam. There are no acute changes from the prior exam. There is anterior lipping and disc space narrowing at every level status quo. Vertebral body height and alignment is unchanged. IMPRESSION: Stable chronic changes. Signed by Miguel Duran DO 01/20/2017 10:38 A
== END 2017-01-19 22:46 | disposition home or self-care (01) ==
LOC: M ED 18:06
DX: J44.1 Chronic obstructive pulmonary disease with (acute) exacerbation (principal); S13.4XXA Sprain of ligaments of cervical spine, initial encounter; S33.5XXA Sprain of ligaments of lumbar spine, initial encounter; S23.3XXA Sprain of ligaments of thoracic spine, initial encounter; S39.012A Strain of muscle, fascia and tendon of lower back, initial encounter; W19.XXXA Unspecified fall, initial encounter; Y92.9 Unspecified place or not applicable; Y93.89 Activity, other specified; Y99.9 Unspecified external cause status; Z86.73 Personal history of transient ischemic attack (TIA), and cerebral infarction without residual deficits; R51 Headache; R56.9 Unspecified convulsions; R07.9 Chest pain, unspecified; I50.9 Heart failure, unspecified; I25.2 Old myocardial infarction; E78.00 Pure hypercholesterolemia, unspecified; I10 Essential (primary) hypertension; Z86.718 Personal history of other venous thrombosis and embolism; J45.909 Unspecified asthma, uncomplicated; G47.30 Sleep apnea, unspecified; Z87.01 Personal history of pneumonia (recurrent); K44.9 Diaphragmatic hernia without obstruction or gangrene; Z87.442 Personal history of urinary calculi; Z87.440 Personal history of urinary (tract) infections; E11.9 Type 2 diabetes mellitus without complications; G89.29 Other chronic pain; M54.9 Dorsalgia, unspecified; F41.9 Anxiety disorder, unspecified; F32.9 Major depressive disorder, single episode, unspecified; Z86.14 Personal history of Methicillin resistant Staphylococcus aureus infection; Z79.82 Long term (current) use of aspirin; Z79.4 Long term (current) use of insulin; Z79.899 Other long term (current) drug therapy; Z88.6 Allergy status to analgesic agent; Z88.0 Allergy status to penicillin; Z88.8 Allergy status to other drugs, medicaments and biological substances

== ENCOUNTER 2017-02-03 22:05 | Inpatient (IN) | payer MEDICARE, MEDICAID ==
[~2017-02-03] VITALS: Ht 165.1 cm; Wt 77.6 kg
[2017-02-03] MEDS: HumaLOG INSULIN (NovoLOG) PER UNIT SC SCH (21:00)
[2017-02-03] MEDS ORDERED: MORPHINE 2 MG/ML 1ML SYRINGE IV ONE (23:15)
--- NOTE | 2017-02-03 23:30 | REPUSA ---
HISTORY: SYNCOPE. Comparison is made to previous head CT dated 07/24/16. TECHNIQUE: Axial CT imaging of brain without contrast. DLP= 1107.8 mGy-cm. FINDINGS: There is no significant change in the degree of enlarged ventricles consistent with mild ge neralized cerebral atrophy. There is no evidence of intracranial hemorrhage, mass, mass effect or mi dline shift, acute infarct, or abnormal extra-axial fluid collection. No skull fracture is seen. There is mucosal thickening in the ethmoid sinuses consistent with sinusi tis. Mastoids are clear. CPA angle regions are normal. IMPRESSION: 1. Mild generalized cerebral atrophy without intracranial mass, hemorrhage, or acute inf arct in without significant change from previous examination. 2. Evidence of ethmoid sinusitis.
--- NOTE | 2017-02-03 23:40 | REPUSA ---
HISTORY: SYNCOPE. TECHNIQUE: Axial CT imaging of cervical spine with coronal and and sagittal reformatted imaging, with out contrast. DLP= 1107.8 mGy-cm. FINDINGS: There is straightening of the cervical spine, most likely related to muscle spasm. There is no evidence of fracture or destructive bony lesion, or instability. No spondylolisthesis is seen . Prevertebral soft tissues are normal. There is multilevel degenerative disc disease and facet joint osteoarthritis throughout the cervical spine,, greatest at C3/C4 with suspected 0.6 cm canal stenosis. IMPRESSION: 1. Straightening of the cervical spine, most likely related to muscle spasm. No acute f racture or instability, or prevertebral soft tissue swelling is seen. No destructive bony lesion is seen. 2. Multilevel degenerative disc disease and facet joint osteoarthritis throughout the entire cervica l spine, greatest at C3/C4 where there is suspected 0.6 cm canal stenosis. No other large soft tissu e mass lesions are seen. Clinical correlation and follow-up with MRI suggested if indicated.
[2017-02-03] MEDS ORDERED: IPRATROPIUM 0.5MG/ALBUTEROL 2.5MG INH SOL UD 3ML (DUONEB)(J7620) NEB ONE (23:45)
[2017-02-04 00:03] LABS: INR 1.12
[2017-02-04 00:11] LABS: BASO # 0.1 10^3/uL (0.0-0.2); BASO % 0.9 % (0.0-1.0); EOS # 0.4 10^3/uL (0.0-0.50); IMMATURE GRANULOCYTE % 0.4 % (0-0); LYMPH # 4.4 10^3/uL (1.5-4.5); LYMPH % 51.1 % (24.0-44.0); MEAN CORPUSCULAR HEMOGLOBIN 33.1 pg (27.0-33.0); MEAN CORPUSCULAR VOLUME 94.6 fl (80.0-96.0); MONO # 0.7 10^3/uL (0.0-0.8); MONO % 7.8 % (0.0-5.0); NEUTROPHILS % 34.8 % (36.0-66.0); PLATELET COUNT, AUTOMATED 225 10^3/uL (150-450); RED CELL DISTRIBUTION WIDTH 14.2 % (11.5-14.5); WHITE BLOOD COUNT 8.6 10^3/uL (4.0-10.0)
[2017-02-04 00:30] LABS: ANION GAP 7 MEQ/L (8-16); BLOOD UREA NITROGEN 12 MG/DL (7-18); CALCIUM LEVEL 8.7 MG/DL (8.8-10.2); CARBON DIOXIDE LEVEL 27 MEQ/L (21-32); CHLORIDE LEVEL 107 MEQ/L (98-107); CREATININE FOR GFR 0.65 MG/DL (0.70-1.30); FREE T4 0.89 NG/DL (0.76-1.46); GLOMERULAR FILTRATION RATE > 60.0 (>49); GLUCOSE, FASTING 76 MG/DL (80-110); MAGNESIUM LEVEL 2.1 MG/DL (1.8-2.4); POTASSIUM SERUM 3.7 MEQ/L (3.5-5.1); SODIUM LEVEL 141 MEQ/L (136-145)
[2017-02-04 00:39] LABS: DIGOXIN LEVEL 0.3 NG/ML (0.5-2.0)
[2017-02-04] MEDS ORDERED: LORazepam 2 MG/ML VIAL (J2060) IV STA (01:54)
[2017-02-04] MEDS ORDERED: DEXTROSE 50% 50 ML SYRINGE IV PRN (02:15)
[2017-02-04] MEDS ORDERED: GLUCOSE 4 GM CHEW TABLET PO PRN (02:15)
[2017-02-04] MEDS ORDERED: GLUCAGON FOR INJ 1 MG VIAL (J1610) SC PRN (02:15)
[2017-02-04] MEDS ORDERED: ONDANSETRON 4MG/2ML VIAL (J2405) IV PRN (02:15)
[2017-02-04] MEDS ORDERED: ASPI1TAB PO (02:44)
[2017-02-04] MEDS ORDERED: DILT240C PO (02:44)
[2017-02-04] MEDS ORDERED: ELIQ5TAB PO (02:44)
[2017-02-04] MEDS ORDERED: DIGO0.25 PO (02:44)
[2017-02-04] MEDS ORDERED: CORT1SOL3 AU (02:50)
[2017-02-04] MEDS ORDERED: DOXY100T PO (02:50)
[2017-02-04] MEDS ORDERED: ESOM1CAP5 PO (02:50)
[2017-02-04] MEDS ORDERED: CRES5TAB PO (02:50)
--- NOTE | 2017-02-04 03:44 | HPEPDOC ---
General Date of Admission Feb 03, 2017 at 22:06 Other Providers PCP: Gonzalez Rob Attending Physician: CURLY GANT MD Chief Complaint The patient is a 62-year-old male admitted with a reason for visit of Syncope. Source: Patient History of Present Illness 62-year-old male with past medical history of COPD, hypertension, diabetes mellitus, CAD, atrial fibrillation on eliquis, chronic back pain, seizure disorder, and Parkinson's disease presented to the ER after he had a syncopal episode in the kitchen. The patient states that he was in the kitchen fixing himself some lunch when he suddenly felt lightheaded, and passed out. He states that he was down for approximately 5 minutes, and then crawled to the recliner to call EMS. The patient denied any symptoms of chest pain, palpitations, abdominal pain, fecal/urinary incontinence, jerking activity, tongue biting, or any nausea/vomiting/diarrhea. Of note, the patient has been seen multiple times here in the ER in the past for falls. The patient states that he uses a motor scooter at baseline to get around, however at home he walks by holding onto furniture. He states that he would like to get a rolling walker with a seat. He denies any other acute complaints at this time. Home Medications Scheduled (Esomeprazole Magnesium) 40 Mg Cap, 40 MG PO DAILY, (Reported) Apixaban Base (Eliquis) 5 Mg Tab, 5 MG PO BID, (Reported) Aspirin (Aspirin 81) 81 Mg Tab, 81 MG PO DAILY, (Reported) Digoxin (Digoxin) 250 Mcg Tab, 250 MCG PO DAILY, (Reported) Diltiazem HCl (Diltiazem HCl ER) 240 Mg Cap, 240 MG PO DAILY, (Reported) Doxycycline Hyclate (Doxycycline Hyclate) 100 Mg Tab, 100 MG PO BID, (Reported) Gabapentin (Gabapentin) 100 Mg Cap, 100 MG PO TID, (Reported) Glimepiride (Glimepiride) 4 Mg Tab, 4 MG PO BID, (Reported) Insulin Glargine (Lantus) 1 Units/0.01 Ml Susp, 30 UNITS SC QHS, (Reported) Levetiracetam (Keppra) 1,000 Mg Tab, 1,000 MG PO BID, (Reported) Loratadine (Loratadine) 10 Mg Tab, 10 MG PO DAILY, (Reported) Neomycin/Polymyxin/Hydrocort (Cortisporin 3.5-97559-8) 1 Laura Laura, 4 DROP AU QID, (Reported) Ramipril (Ramipril) 1.25 Mg Cap, 1.25 MG PO DAILY, (Reported) Rosuvastatin Calcium (Crestor) 5 Mg Tab, 5 MG PO QHS, (Reported) Salmeterol/Fluticasone (Advair Diskus 500-50 Mcg/Dose) 28 Puff/Inhaler Aerp, 1 PUFF INH BID, (Reported) Topiramate (Topiramate) 50 Mg Tab, 50 MG PO BID, (Reported) Trazodone HCl (Trazodone HCl) 100 Mg Tab, 100 MG PO QHS, (Reported) Scheduled PRN Albuterol Sulfate (Albuterol Sulfate) 2.5 Mg/3 Ml Nebu, 2.5 MG INH Q4H PRN for SHORTNESS OF BREATH, (Reported) Nitroglycerin (Nitrostat) 0.4 Mg Subl, 0.4 MG SL Q5MP PRN for CHEST PAIN, ( Reported) Allergies Coded Allergies: Penicillins (Verified Allergy, Severe, ANAPHYLAXIS, 09/01/16) Thioridazine (Verified Allergy, Severe, 09/01/16) Chlorpromazine (Verified Allergy, Intermediate, HIVES, 09/01/16) Diphenhydramine (Verified Allergy, Intermediate, HIVES, 09/01/16) [place] (Verified Allergy, Intermediate, HIVES, 09/01/16) Paroxetine (Verified Allergy, Intermediate, HIVES, 09/01/16) POLLEN (Verified Allergy, Unknown, 09/01/16) Acetaminophen (Verified Adverse Reaction, Intermediate, INTERNAL BLEEDING (PER PATIENT), 09/01/16) Ibuprofen (Verified Adverse Reaction, Intermediate, INTERNAL BLEEDING ( PER PATIENT), 09/01/16) Past Medical History Medical History As noted in HPI. Surgical History 1. Appendectomy. 2. Bilateral foot surgery. 3. Cholecystectomy. 4. Gastrectomy. Family History Significant Family History: No pertinent family hx Social History * Smoker: current smoker Alcohol: Denies Drugs: denies Lives at home by himself. Gets around with a motorized scooter. States that he ambulates around his house by wrapping onto his furniture. On disability Review of Symptoms Other systems 10 point review of systems negative unless otherwise specified in HPI. Physical Examination General Exam: Positive: Alert, Cooperative, No Acute Distress ENT Exam: Positive: Atraumatic, Mucous membr. moist/pink Neck Exam: Negative: JVD Chest Exam: Positive: Clear to auscultation, Normal air movement Heart Exam: Positive: Rate Normal, Normal S1, Normal S2 Abdomen Exam: Positive: Soft, Negative: Tenderness Extremity Exam: Negative: Tenderness, Swelling Psych Exam: Positive: Oriented x 3 Vital Signs Vital Signs Date Time Temp Pulse Resp B/P (MAP) Pulse Ox O2 Delivery O2 Flow Rate FiO2 02/04/17 00:43 72 112/64 (80) 79 123/77 (92) 88 121/64 (83) 02/03/17 23:15 16 97 02/03/17 22:21 98.0 Laboratory Data Labs 24H Laboratory Tests 2 02/03/17 23:42: Prothrombin Time 14.6H, Prothromb Time International Ratio 1.12, Activated Partial Thromboplast Time 34.2 02/03/17 23:43: Immature Granulocyte % (Auto) 0.4H, White Blood Count 8.6, Red Blood Count 4.26L , Hemoglobin 14.1, Hematocrit 40.3L, Mean Corpuscular Volume 94.6, Mean Corpuscular Hemoglobin 33.1H, Mean Corpuscular Hemoglobin Concent 35.0, Red Cell Distribution Width 14.2, Platelet Count 225, Neutrophils (%) (Auto) 34.8L, Lymphocytes (%) (Auto) 51.1H, Monocytes (%) (Auto) 7.8H, Eosinophils (%) (Auto) 5.0H, Basophils (%) (Auto) 0.9, Neutrophils # (Auto) 3.0, Lymphocytes # (Auto) 4.4, Monocytes # (Auto) 0.7, Eosinophils # (Auto) 0.4, Basophils # (Auto) 0.1, Immature Granulocyte # (Auto) 0.0, Nucleated Red Blood Cells % (auto) 0.0, Anion Gap 7L, Glomerular Filtration Rate > 60.0, Blood Urea Nitrogen 12, Creatinine 0.65L, Sodium Level 141, Potassium Level 3.7, Chloride Level 107, Carbon Dioxide Level 27, Calcium Level 8.7L, Total Creatine Kinase 147, Magnesium Level 2.1, Creatine Kinase MB 3.4, Creatine Kinase MB Relative Index 2.31, Troponin I < 0.02, Thyroid Stimulating Hormone (TSH) 1.370, Free Thyroxine 0.89, Digoxin Level 0.3L CBC/BMP Laboratory Tests 02/03/17 23:43 Red Blood Count 4.26 L, Mean Corpuscular Volume 94.6, Mean Corpuscular Hemoglobin 33.1 H, Mean Corpuscular Hemoglobin Concent 35.0, Red Cell Distribution Width 14.2, Neutrophils (%) (Auto) 34.8 L, Lymphocytes (%) (Auto) 51.1 H, Monocytes (%) (Auto) 7.8 H, Eosinophils (%) (Auto) 5.0 H, Basophils (%) (Auto) 0.9, Neutrophils # (Auto) 3.0, Lymphocytes # (Auto) 4.4, Monocytes # ( Auto) 0.7, Eosinophils # (Auto) 0.4, Basophils # (Auto) 0.1, Calcium Level 8.7 L , Total Creatine Kinase 147 Plan / VTE VTE Prophylaxis Ordered?: Yes Plan Plan Syncopal Episode CT scan of the head, C-spine with no acute findings. EKG with no acute findings Initial troponin negative, we will serially trend The patient has multiple potential underlying causes for syncopal episode including orthostatic hypotension, autonomic neuropathy from underlying diabetes mellitus, and dysautonomia from Parkinson's disease. We will order orthostatic vitals 2-D echocardiogram, ultrasound carotids Monitor on telemetry PT ordered for functional optimization PFS consulted for possible home care COPD, stable Continue inhaler, nebulizer therapy Diabetes mellitus Continue basal insulin, insulin sliding scale for additional coverage Atrial fibrillation Rate controlled on current regimen On Eliquis for AC--I did discuss my concern with the patient regarding anticoagulation and his increased susceptibility to falls given his history. History of CAD Continue aspirin, statin, ROSA inhibitor Not on beta shorty therapy possibly secondary to underlying COPD Hypertension Continue ramipril Dyslipidemia Continue statin statin Peripheral neuropathy Continue gabapentin History of seizure disorder Continue Topamax, Keppra GERD Continue PPI DVT prophylaxis Already on anticoagulation The patient will be admitted under the service of Dr. Gant, who will begin to follow the patient on 02/04/17 at 7 AM. BHAVANI BILLINGS MD Feb 04, 2017 03:44
[2017-02-04] MEDS ORDERED: NITROGLYCERIN 0.4 MG SUBL TABLET SL PRN (04:00)
[2017-02-04] MEDS ORDERED: DIGO0.12 PO (04:14)
[2017-02-04] MEDS: IPRATROPIUM 0.5MG/ALBUTEROL 2.5MG INH SOL UD 3ML (DUONEB)(J7620) NEB SCH ×3 (07:03→21:34)
[2017-02-04] MEDS: ADVAIR HFA 230/21MCG INHALER INH SCH ×2 (07:04→21:00)
--- NOTE | 2017-02-04 07:32 | REP ---
A PA and lateral chest: Comparison is 09/12/2016. The lung forte are clear. The cardiac size is normal The yonas, mediastinum, and bony thorax are unremarkable. Impression: Negative AP and lateral chest. There is no interval change. Signed by Tulio Tiraod MD 02/04/2017 07:24 A
--- NOTE | 2017-02-04 07:41 | REP ---
Bilateral carotid artery duplex ultrasound: Peak flow velocity analysis: RIGHT LEFT ICA Peak flow velocity cm/sec 80 82 ICA Diastolic flow velocity cm/sec 16 24 ICA/CCA Ratio 0.63 0.83 ECA Peak flow velocity cm/sec 101 119 CCA Peak flow velocity cm/sec 126 99 There is shallow atheromatous plaque in the bulbs bilaterally. There is shallow atheromatous plaque in the right ECA. Peak flow velocities are normal bilaterally. There is no stenosis on the right on the left. There is antegrade flow in the vertebral arteries bilaterally Signed by Tulio Tirado MD 02/04/2017 07:34 A
[2017-02-04 07:49] VITALS: BP 123/71
[2017-02-04 07:50] VITALS: BP_SYST 131; BP_SYST 144; BP_DIAS 63; BP_DIAS 77
[2017-02-04] MEDS: HumaLOG INSULIN (NovoLOG) PER UNIT SC SCH ×4 (08:33→20:24)
[2017-02-04] MEDS: TOPIRAMATE (TopAMAX) 25 MG TAB PO SCH ×2 (08:34→20:17)
[2017-02-04] MEDS: levETIRAcetam 250MG TABLET (KEPPRA) PO SCH ×2 (08:34→20:18)
[2017-02-04] MEDS: DIGOXIN 0.125 MG TAB PO SCH (08:34)
[2017-02-04] MEDS: GABAPENTIN 100 MG CAP PO SCH ×3 (08:34→20:18)
[2017-02-04] MEDS: ASPIRIN 81 MG ENTERIC TAB PO SCH (08:34)
[2017-02-04] MEDS: LORATADINE 10 MG TAB PO SCH (08:34)
[2017-02-04] MEDS: APIXABAN 5 MG TAB (ELIQUIS) PO SCH ×2 (08:34→20:17)
[2017-02-04] MEDS: PANTOPRAZOLE 40MG TAB (PROTONIX) PO SCH (08:35)
[2017-02-04] MEDS ORDERED: DIGOXIN 0.25 MG TAB PO SCH (09:00)
[2017-02-04] MEDS ORDERED: CORTISPORIN OTIC SOLN 10 ML BTL AU PRN (09:00)
[2017-02-04] MEDS ORDERED: RAMIPRIL 1.25 MG CAP PO SCH (09:00)
[2017-02-04] MEDS ORDERED: NORCO, ANEXSIA 5/325MG TABLET (HYDROcodone/ACETAMINOPHEN) PO PRN (09:00)
[2017-02-04] MEDS: NORCO, ANEXSIA 5/325MG TABLET (HYDROcodone/ACETAMINOPHEN) PO PRN ×3 (09:36→23:07)
[2017-02-04 09:45] VITALS: BP 123/95
[2017-02-04] MEDS: IPRATROPIUM 0.5MG/ALBUTEROL 2.5MG INH SOL UD 3ML (DUONEB)(J7620) NEB PRN ×2 (10:53→17:08)
[2017-02-04 12:00] VITALS: BP 139/69
[2017-02-04 15:41] VITALS: BP 142/67
[2017-02-04] MEDS ORDERED: INFLUENZA QUADRIVALENT PF VACCINE 0.5ML SYRINGE (90686) IM SCH (15:45)
--- NOTE | 2017-02-04 18:43 | CR.PDOC ---
[facility] Pain Clinic Consultation General Date of Consultation: 02/04/17 Consultation Report For: CURLY GANT MD Chief Complaint The patient is a 62-year-old male admitted with a reason for visit of Syncope. Pain management has been asked to see him for complaints of all over body pain. History of Present Illness Donny Hurd is seen today in the intensive care unit. He is a fairly good historian. He reports that he has had multiple falls and has been complaining of pain for some time. States sometimes the pain is in his back. Sometimes it is in his arms and legs and sometimes it is all over. Today he reports he is having pain all over his body in deep in his bones. In level as an 8/10. He notes some relief with hydrocodone 2 tablets. He did summon EMS services after he fell in his house. He believes he had lost consciousness for about 5 minutes. His usual mode of transportation is his power chair, but he does hold onto furniture and attempt to walk at home. As noted, he has had many, many visits to the emergency room for complaints of both pain and falls. He was seen by physical therapy in October 2016. During one of his visits. They did do an assessment and did not feel he needed any additional supports or home services. He is apparently "independent" and is followed by various friends. Home Medications Scheduled (Esomeprazole Magnesium) 40 Mg Cap, 40 MG PO DAILY, (Reported) (Digoxin) 125 Mcg Tab, 125 MCG PO DAILY, (Reported) Apixaban Base (Eliquis) 5 Mg Tab, 5 MG PO BID, (Reported) Aspirin (Aspirin 81) 81 Mg Tab, 81 MG PO DAILY, (Reported) Diltiazem HCl (Diltiazem HCl ER) 240 Mg Cap, 240 MG PO DAILY, (Reported) Doxycycline Hyclate (Doxycycline Hyclate) 100 Mg Tab, 100 MG PO BID, (Reported) Gabapentin (Gabapentin) 100 Mg Cap, 100 MG PO TID, (Reported) Glimepiride (Glimepiride) 4 Mg Tab, 4 MG PO BID, (Reported) Insulin Glargine (Lantus) 1 Units/0.01 Ml Susp, 30 UNITS SC QHS, (Reported) Levetiracetam (Keppra) 1,000 Mg Tab, 1,000 MG PO BID, (Reported) Loratadine (Loratadine) 10 Mg Tab, 10 MG PO DAILY, (Reported) Neomycin/Polymyxin/Hydrocort (Cortisporin 3.5-92925-8) 1 Laura Laura, 4 DROP AU QID, (Reported) Ramipril (Ramipril) 1.25 Mg Cap, 1.25 MG PO DAILY, (Reported) Rosuvastatin Calcium (Crestor) 5 Mg Tab, 5 MG PO QHS, (Reported) Salmeterol/Fluticasone (Advair Diskus 500-50 Mcg/Dose) 28 Puff/Inhaler Aerp, 1 PUFF INH BID, (Reported) Topiramate (Topiramate) 50 Mg Tab, 50 MG PO BID, (Reported) Trazodone HCl (Trazodone HCl) 100 Mg Tab, 100 MG PO QHS, (Reported) Scheduled PRN Albuterol Sulfate (Albuterol Sulfate) 2.5 Mg/3 Ml Nebu, 2.5 MG INH Q4H PRN for SHORTNESS OF BREATH, (Reported) Nitroglycerin (Nitrostat) 0.4 Mg Subl, 0.4 MG SL Q5MP PRN for CHEST PAIN, ( Reported) Allergies Coded Allergies: Penicillins (Verified Allergy, Severe, ANAPHYLAXIS, 09/01/16) Thioridazine (Verified Allergy, Severe, 09/01/16) Chlorpromazine (Verified Allergy, Intermediate, HIVES, 09/01/16) Diphenhydramine (Verified Allergy, Intermediate, HIVES, 09/01/16) Fingal (Verified Allergy, Intermediate, HIVES, 09/01/16) Paroxetine (Verified Allergy, Intermediate, HIVES, 09/01/16) POLLEN (Verified Allergy, Unknown, 09/01/16) Acetaminophen (Verified Adverse Reaction, Intermediate, INTERNAL BLEEDING (PER PATIENT), 09/01/16) Ibuprofen (Verified Adverse Reaction, Intermediate, INTERNAL BLEEDING ( PER PATIENT), 09/01/16) Past Medical History Medical History Past medical history is significant for seizure disorder, COPD, obesity, frequent falls and mobility issues, diabetes mellitus, hypertension, coronary artery disease, Family History Significant Family History: Noncontributory Social History Social History Denies tobacco, alcohol, or illicit substance abuse. Review of Systems Subjective HEENT: Reports: other (denies headache, sore throat vision issues, difficulty with swallowing) Skin: Reports: dryness Pulmonary: Reports: cough (intermittent nonproductive cough) Cardiovascular: Reports: chest pain (denies) Gastrointestinal: Reports: normal bowel movements, abdominal pain (denies), other (reports he is very hungry) Genitourinary: Denies: dysuria, hematuria, loss of bladder control Endocrine: Reports: Diabetes mellitus Musculoskeletal: Reports: muscle pain, spasms, joint sweling (denies), muscle stiffness Neurological: Reports: other (Notes writhing motions of his upper extremities. States he was told by Dr. Rob that he has Parkinson's disease) Psych: Reports: mood normal, Denies: thoughts of self harm, thoughts of harming other Physical Examination Physical Examination Vital Signs/I&O Vital Signs Date Time Temp Pulse Resp B/P (MAP) Pulse Ox O2 Delivery O2 Flow Rate FiO2 02/04/17 17:26 20 02/04/17 17:10 76 02/04/17 16:56 96 Room Air 02/04/17 15:41 142/67 (92) 02/04/17 12:00 97.3 I&O- Last 24 Hours up to 6 AM 02/05/17 06:00 Intake Total 720 ml Output Total 1050 ml Balance -330 ml General Exam: Positive: alert, attentive, no acute distress ENT EXAM: Positive: normocephalic, other (thick neck) Neck Exam: Positive: Full range of motion (however, some stiffness is noted) Chest Exam: Positive: Clear to auscultation, Negative: Wheezing, Rales Heart Exam: Positive: Regular rate and rhythm, Normal S1, S2, Negative: Murmurs, Rubs Abdominal Exam: Positive: Normal bowel sounds, Soft, Nontender, Other ( distended and protruding) Extremity Exam: Negative: Edema Skin Exam: Positive: Warm, Dry, Negative: Rashes, Lesions Neuro Exam: Positive: Other (writhing motions are noted of both the upper and lower extremities. No cogwheeling, no rest or intention tremor. Myokymia are noted of the upper extremities. Speech is soft, monotone and high pitched) Psych Exam: Positive: Mental status NL, Mood NL Laboratory Data Labs 24H Laboratory Tests 2 02/03/17 23:42: Prothrombin Time 14.6H, Prothromb Time International Ratio 1.12, Activated Partial Thromboplast Time 34.2 02/03/17 23:43: Immature Granulocyte % (Auto) 0.4H, White Blood Count 8.6, Red Blood Count 4.26L , Hemoglobin 14.1, Hematocrit 40.3L, Mean Corpuscular Volume 94.6, Mean Corpuscular Hemoglobin 33.1H, Mean Corpuscular Hemoglobin Concent 35.0, Red Cell Distribution Width 14.2, Platelet Count 225, Neutrophils (%) (Auto) 34.8L, Lymphocytes (%) (Auto) 51.1H, Monocytes (%) (Auto) 7.8H, Eosinophils (%) (Auto) 5.0H, Basophils (%) (Auto) 0.9, Neutrophils # (Auto) 3.0, Lymphocytes # (Auto) 4.4, Monocytes # (Auto) 0.7, Eosinophils # (Auto) 0.4, Basophils # (Auto) 0.1, Immature Granulocyte # (Auto) 0.0, Nucleated Red Blood Cells % (auto) 0.0, Anion Gap 7L, Glomerular Filtration Rate > 60.0, Blood Urea Nitrogen 12, Creatinine 0.65L, Sodium Level 141, Potassium Level 3.7, Chloride Level 107, Carbon Dioxide Level 27, Calcium Level 8.7L, Total Creatine Kinase 147, Magnesium Level 2.1, Creatine Kinase MB 3.4, Creatine Kinase MB Relative Index 2.31, Troponin I < 0.02, Thyroid Stimulating Hormone (TSH) 1.370, Free Thyroxine 0.89, Digoxin Level 0.3L 02/04/17 07:33: Bedside Glucose (Misc Panel) 155H 02/04/17 08:28: Total Creatine Kinase 145, Creatine Kinase MB 3.3, Creatine Kinase MB Relative Index 2.27, Troponin I < 0.02 02/04/17 11:30: Bedside Glucose (Misc Panel) 128H 02/04/17 16:51: Total Creatine Kinase 142, Creatine Kinase MB 2.8, Creatine Kinase MB Relative Index 1.97, Troponin I < 0.02 CBC/BMP Laboratory Tests 02/03/17 23:43 Red Blood Count 4.26 L, Mean Corpuscular Volume 94.6, Mean Corpuscular Hemoglobin 33.1 H, Mean Corpuscular Hemoglobin Concent 35.0, Red Cell Distribution Width 14.2, Neutrophils (%) (Auto) 34.8 L, Lymphocytes (%) (Auto) 51.1 H, Monocytes (%) (Auto) 7.8 H, Eosinophils (%) (Auto) 5.0 H, Basophils (%) (Auto) 0.9, Neutrophils # (Auto) 3.0, Lymphocytes # (Auto) 4.4, Monocytes # ( Auto) 0.7, Eosinophils # (Auto) 0.4, Basophils # (Auto) 0.1, Calcium Level 8.7 L , Total Creatine Kinase [address] scan of the cervical spine was completed on 02/04/2017. Demonstrates no fractures or dislocation but does demonstrate significant muscle spasm and straightening of the cervical lordosis Assessment 1. Generalized pain of uncertain etiology. 2. Myalgia/cervicalgia. 3. Multiple medical problems including history of seizure disorder, COPD, coronary artery disease, obesity Recommendation and Plan At this time would recommend trying to get ahead of his pain while he is under close observation. Currently, his gabapentin is scheduled at 100 mg 3 times a day I do note that his renal functions are under fairly good control with a GFR greater than 60. Certainly could look to increase this to be 300 mg 3 times a day. He is currently receiving hydrocodone 2 tablets every 6 hours. Could look to increase this to 2 tablets every 4 hours for 24 hours to see how he does. I am concerned with the amount of stiffness on in his upper and lower extremities as well as the writhing that I am seeing. I understand he is expecting to transfer to a general floor. If some of this on muscle tightness continues might look to bring him over for trigger point injections on at least the neck and shoulder area. Strongly recommend physical therapy reevaluate for safe discharge. Thank you Dr. Gant, for allowing us to participate in the care of your patient, [Donny Hurd]. Should you have any questions we will be glad to discuss this with you at any time please contact us here at the pain center at [phone]. Nina Hutchison Feb 04, 2017 18:43
[2017-02-04 20:00] VITALS: BP 140/71
[2017-02-04] MEDS: ROSUVASTATIN 10 MG TAB (CRESTOR) PO SCH (20:17)
[2017-02-04] MEDS: traZODone 100 MG TAB PO SCH (20:17)
[2017-02-04] MEDS: LEVEMIR (INSULIN DETEMIR) 1 UNITS/0.01ML SC SCH (20:18)
--- NOTE | 2017-02-04 21:04 | ECGEPIP ---
Stationary ECG Study [facility] - ED Test Date: 2017-02-03 Pat Name: PATY CH Department: Room: [place] [address] Gender: M Intervention Teacher: HerronB: 1955 Requested By: ANNY Gongora Order Number: [id number] Reading MD: Brandy Davila Measurements Intervals [place] Rate: 74 P: 48 [place]: 224 QRS: 45 QRSD: 97 T: 30 QT: 378 QTc: 422 Interpretive Statements SINUS RHYTHM WITH FIRST DEGREE AV BLOCK NONSPECIFIC T-WAVE ABNORMALITY DECREASED RATE 09/12/16 Electronically Signed On 02-04-2017 21:04:05 EDT by Brandy Davila
[2017-02-05] VITALS (7 sets, daily range): BP systolic 97–134; BP diastolic 61–81
[2017-02-05] MEDS: IPRATROPIUM 0.5MG/ALBUTEROL 2.5MG INH SOL UD 3ML (DUONEB)(J7620) NEB SCH ×4 (00:48→14:23)
[2017-02-05 05:02] LABS: MEAN CORPUSCULAR HEMOGLOBIN 33.4 pg (27.0-33.0); MEAN CORPUSCULAR HGB CONC 34.7 g/dl (32.0-36.5); MEAN CORPUSCULAR VOLUME 96.3 fl (80.0-96.0); PLATELET COUNT, AUTOMATED 187 10^3/uL (150-450); RED CELL DISTRIBUTION WIDTH 14.2 % (11.5-14.5); WHITE BLOOD COUNT 5.5 10^3/uL (4.0-10.0)
[2017-02-05 05:26] LABS: ALBUMIN 3.3 GM/DL (3.2-5.2); ALBUMIN/GLOBULIN RATIO 0.94 (1.00-1.93); ALKALINE PHOSPHATASE 71 U/L (45-117); ALT/SGPT 25 U/L (12-78); ANION GAP 10 MEQ/L (8-16); AST/SGOT 15 U/L (15-37); BILIRUBIN,TOTAL 0.4 MG/DL (0.2-1.0); BLOOD UREA NITROGEN 11 MG/DL (7-18); CALCIUM LEVEL 8.9 MG/DL (8.8-10.2); CARBON DIOXIDE LEVEL 26 MEQ/L (21-32); CHLORIDE LEVEL 105 MEQ/L (98-107); CREATININE FOR GFR 0.79 MG/DL (0.70-1.30); GLOMERULAR FILTRATION RATE > 60.0 (>49); GLUCOSE, FASTING 179 MG/DL (80-110); POTASSIUM SERUM 4.1 MEQ/L (3.5-5.1); SODIUM LEVEL 141 MEQ/L (136-145); TOTAL PROTEIN 6.8 GM/DL (6.4-8.2)
[2017-02-05] MEDS: NORCO, ANEXSIA 5/325MG TABLET (HYDROcodone/ACETAMINOPHEN) PO PRN ×3 (06:17→22:16)
[2017-02-05] MEDS: ADVAIR HFA 230/21MCG INHALER INH SCH ×2 (07:49→20:17)
[2017-02-05] MEDS: HumaLOG INSULIN (NovoLOG) PER UNIT SC SCH ×4 (08:24→20:47)
[2017-02-05] MEDS: DIGOXIN 0.125 MG TAB PO SCH (08:25)
[2017-02-05] MEDS: PANTOPRAZOLE 40MG TAB (PROTONIX) PO SCH (08:25)
[2017-02-05] MEDS: ASPIRIN 81 MG ENTERIC TAB PO SCH (08:25)
[2017-02-05] MEDS: TOPIRAMATE (TopAMAX) 25 MG TAB PO SCH ×2 (08:25→20:46)
[2017-02-05] MEDS: APIXABAN 5 MG TAB (ELIQUIS) PO SCH ×2 (08:26→20:46)
[2017-02-05] MEDS: levETIRAcetam 250MG TABLET (KEPPRA) PO SCH ×2 (08:26→20:47)
[2017-02-05] MEDS: LORATADINE 10 MG TAB PO SCH (08:26)
[2017-02-05] MEDS: GABAPENTIN 300 MG CAP PO SCH ×3 (09:35→20:46)
[2017-02-05] MEDS: IPRATROPIUM 0.5MG/ALBUTEROL 2.5MG INH SOL UD 3ML (DUONEB)(J7620) NEB PRN (10:42)
--- NOTE | 2017-02-05 17:44 | IPN ---
DATE: 02/05/2017 Patient seen and examined. No acute events overnight. Denies any chest pain, pressure, or discomfort. Wanted to be discharged from the hospital, but this afternoon around 5 o'clock patient reported chest pain, 10/10, substernal with no relieving or exacerbating factors. Denies any fevers or chills. Coughing. Is having some wheeze. VITAL SIGNS: Temperature 98.5, pulse 78, respirations 18, blood pressure 110/68, pulse oximetry 94% on room air. LABORATORY DATA: WBC 5.5, hemoglobin and hematocrit 14.3/41.2, platelets 187. Chemistry: Sodium 141, potassium 4.1, chloride 105, bicarbonate 26, BUN 11, creatinine 0.79. Cardiac enzymes negative times four. PHYSICAL EXAMINATION: GENERAL: Patient alert, comfortable in no acute distress. HEENT: Normocephalic, atraumatic. PULMONARY: Bilaterally clear to auscultation. CARDIAC: Regular S1, S2. ABDOMEN: Soft and nontender. Positive bowel sounds. EXTREMITIES: No clubbing, cyanosis, or edema. ASSESSMENT AND PLAN: This is a 62-year-old male patient with underlying medical history of chronic obstructive pulmonary disease (COPD), hypertension, type 2 diabetes, coronary artery disease, atrial fibrillation, on Eliquis, chronic back pain, seizure disorder, Parkinson's disease who presented to [facility] with syncopal episode in the kitchen. 1. Syncopal episode. CT of the head and cervical (C) spine shows no acute findings. EKGs, orthostatics have been negative. Cardiac enzymes have been negative. Patient has multiple reasons for syncopal episode, autonomic neuropathy, diabetes, dysautonomia, Parkinson's disease. Orthostatics have been negative. Followup echocardiogram, carotid ultrasound. Telemetry monitoring. Physical therapy (PT). Patient and family services (PFS) has been consulted. 2. Chest pain. EKGs appreciated. Cardiac enzymes, echocardiogram, telemetry. Will continue the patient on Eliquis, aspirin. 3. Chronic pain. Pain management has been consulted. Continue current medication. Neurontin has been increased. 4. Chronic obstructive pulmonary disease (COPD). Nebulizer treatment and inhalers. Will give steroids as needed. 5. Diabetes. Continue basal bolus insulin. Adjust as needed. 6. Atrial fibrillation. Currently in sinus. Continue Eliquis for anticoagulation. Concerns for fall given increased susceptibility to fall in history. Continue digoxin, diltiazem, and Eliquis. 7. Coronary artery disease. Continue on aspirin. Angiotensin-converting enzyme (ROSA) inhibitor has been discontinued given orthostatic hypotension initially. Continue Eliquis. Continue statin. Telemetry monitoring. 8. Dyslipidemia. Continues statin. 9. Hypertension. Continue Cardizem. ROSA on hold given orthostatic hypotension. 10. Seizure disorder. Topamax, Keppra. 11. Gastroesophageal reflux disease (GERD). Continue proton pump inhibitor (PPI). 12. Deconditioning. Physical therapy. 13. Deep vein thrombosis (DVT) prophylaxis, on Eliquis. DISPOSITION: Pending physical therapy, workup for chest pain, echocardiogram, carotid Dopplers. Patient has been resistant to placement in the past. Pending clinical improvement.
[2017-02-05] MEDS ORDERED: predniSONE 20 MG TAB PO ONE (17:45)
[2017-02-05] MEDS: LEVEMIR (INSULIN DETEMIR) 1 UNITS/0.01ML SC SCH (20:46)
[2017-02-05] MEDS: traZODone 100 MG TAB PO SCH (20:46)
[2017-02-05] MEDS: ROSUVASTATIN 10 MG TAB (CRESTOR) PO SCH (20:46)
[2017-02-06] MEDS: IPRATROPIUM 0.5MG/ALBUTEROL 2.5MG INH SOL UD 3ML (DUONEB)(J7620) NEB SCH ×4 (02:43→18:54)
[2017-02-06 06:00] VITALS: BP 118/68
[2017-02-06 06:23] LABS: MEAN CORPUSCULAR HEMOGLOBIN 33.4 pg (27.0-33.0); MEAN CORPUSCULAR HGB CONC 35.1 g/dl (32.0-36.5); MEAN CORPUSCULAR VOLUME 95.3 fl (80.0-96.0); PLATELET COUNT, AUTOMATED 196 10^3/uL (150-450); RED CELL DISTRIBUTION WIDTH 13.8 % (11.5-14.5); WHITE BLOOD COUNT 5.9 10^3/uL (4.0-10.0)
[2017-02-06] MEDS: NORCO, ANEXSIA 5/325MG TABLET (HYDROcodone/ACETAMINOPHEN) PO PRN ×2 (06:24→12:23)
[2017-02-06 06:39] VITALS: BP_SYST 107; BP_SYST 118; BP_SYST 132; BP_DIAS 65; BP_DIAS 70; BP_DIAS 76
[2017-02-06 06:44] LABS: ALBUMIN 3.7 GM/DL (3.2-5.2); ALBUMIN/GLOBULIN RATIO 0.95 (1.00-1.93); ALKALINE PHOSPHATASE 68 U/L (45-117); ALT/SGPT 29 U/L (12-78); ANION GAP 8 MEQ/L (8-16); AST/SGOT 17 U/L (15-37); BILIRUBIN,TOTAL 0.5 MG/DL (0.2-1.0); BLOOD UREA NITROGEN 15 MG/DL (7-18); CALCIUM LEVEL 9.3 MG/DL (8.8-10.2); CARBON DIOXIDE LEVEL 27 MEQ/L (21-32); CHLORIDE LEVEL 101 MEQ/L (98-107); CREATININE FOR GFR 0.93 MG/DL (0.70-1.30); GLOMERULAR FILTRATION RATE > 60.0 (>49); GLUCOSE, FASTING 250 MG/DL (80-110); MAGNESIUM LEVEL 2.1 MG/DL (1.8-2.4); POTASSIUM SERUM 4.4 MEQ/L (3.5-5.1); SODIUM LEVEL 136 MEQ/L (136-145); TOTAL PROTEIN 7.6 GM/DL (6.4-8.2)
[2017-02-06] MEDS ORDERED: predniSONE 20 MG TAB PO SCH (09:00)
[2017-02-06] MEDS: levETIRAcetam 250MG TABLET (KEPPRA) PO SCH ×2 (09:12→20:54)
[2017-02-06] MEDS: GABAPENTIN 300 MG CAP PO SCH ×3 (09:12→20:54)
[2017-02-06] MEDS: PANTOPRAZOLE 40MG TAB (PROTONIX) PO SCH (09:13)
[2017-02-06] MEDS: TOPIRAMATE (TopAMAX) 25 MG TAB PO SCH ×2 (09:13→20:54)
[2017-02-06] MEDS: LORATADINE 10 MG TAB PO SCH (09:13)
[2017-02-06] MEDS: DIGOXIN 0.125 MG TAB PO SCH (09:13)
[2017-02-06] MEDS: APIXABAN 5 MG TAB (ELIQUIS) PO SCH ×2 (09:13→20:54)
[2017-02-06] MEDS: ASPIRIN 81 MG ENTERIC TAB PO SCH (09:13)
[2017-02-06] MEDS: HumaLOG INSULIN (NovoLOG) PER UNIT SC SCH ×4 (09:14→20:54)
[2017-02-06] MEDS: ADVAIR HFA 230/21MCG INHALER INH SCH ×2 (09:34→21:00)
[2017-02-06 14:00] VITALS: BP 136/74
--- NOTE | 2017-02-06 16:35 | IPN ---
DATE: 02/06/2017 The patient is seen and examined. Reported chest pain overnight. Denies any fevers, chills, nausea or vomiting. Tolerating oral. VITAL SIGNS: Temperature 98.3, pulse 100, respirations 18, blood pressure 136/74, pulse oximetry 90% on room air. LABORATORY DATA: WBC 5.9, hemoglobin and hematocrit 14.9/42.5, platelets 196. Chemistry: Sodium 136, potassium 4.4, chloride 101, bicarbonate 27, BUN 15, creatinine 0.93. Cardiac enzymes negative. PHYSICAL EXAMINATION: GENERAL: The patient is alert, comfortable in no acute distress. HEENT: Normocephalic, atraumatic. PULMONARY: Bilaterally clear to auscultation. CARDIAC: Regular rate and rhythm with normal S1, S2. ABDOMEN: Soft and nontender. Positive bowel sounds. EXTREMITIES: No clubbing, cyanosis, or edema. ASSESSMENT AND PLAN: This is a 62-year-old male patient with underlying medical history of chronic obstructive pulmonary disease (COPD), hypertension, type 2 diabetes, coronary artery disease, atrial fibrillation on Eliquis, chronic back pain, seizure disorder, Parkinson's disease who presented to [facility] with syncopal episode in the kitchen. PROBLEMS: 1. Syncopal episode. CT head and cervical spine shows no acute findings. EKGs, orthostatics have been negative. Cardiac enzymes have been negative. The patient has multiple reasons for syncopal episode, autonomic neuropathy, diabetes, Parkinson's disease. Orthostatics have been negative. Followup echocardiogram. Carotid ultrasound appreciated. Telemetry monitoring. Physical therapy. Patient and family services (PFS) consulted. 2. Chest pain. EKGs appreciated. Cardiac enzymes negative. The patient is on aspirin and Eliquis. Continue to monitor. Followup echocardiogram. 3. Chronic pain. Pain management has been consulted. Continue current medication. Neurontin has been increased. 4. Chronic obstructive pulmonary disease (COPD). Nebulizer treatment and inhalers. Prednisone has been started. We will follow. 5. Diabetes. Basal bolus insulin. Adjust as needed. 6. Atrial fibrillation. The patient is currently in sinus. Eliquis anticoagulation. The patient persistently falls and we will consider discontinuing Eliquis in the future. Continue digoxin, diltiazem, and Eliquis. 7. Coronary artery disease. The patient is on aspirin. Angiotensin-converting enzyme (ROSA) inhibitor has been discontinued given the patient's orthostatics were initially positive. Continue Eliquis and statin. 8. Dyslipidemia. Continues statin. 9. Hypertension. Continue Cardizem. ROSA on hold. Monitor blood pressure. 10. Seizure disorder. Continue Topamax and Keppra. 11. Gastroesophageal reflux disease (GERD). Continue proton pump inhibitor (PPI). 12. Deconditioning. Physical therapy. 13. Deep vein thrombosis (DVT) prophylaxis. The patient is on Eliquis. DISPOSITION: Pending physical therapy, echocardiogram. The patient has been resistant to placement in the past, frequent admissions.
[2017-02-06 20:00] VITALS: BP_SYST 127; BP_SYST 132; BP_DIAS 70; BP_DIAS 73; BP_DIAS 76
[2017-02-06] MEDS: traZODone 100 MG TAB PO SCH (20:54)
[2017-02-06] MEDS: LEVEMIR (INSULIN DETEMIR) 1 UNITS/0.01ML SC SCH (20:54)
[2017-02-06] MEDS: ROSUVASTATIN 10 MG TAB (CRESTOR) PO SCH (20:54)
--- NOTE | 2017-02-06 20:54 | ECGEPIP ---
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 Rule out prior septal injury Subtle inferior ST/T-wave abnormalities No change from 02/03/17. Electronically Signed On 02-06-2017 20:54:16 EDT by Grady Escobedo
[2017-02-06 22:00] VITALS: BP 150/77
[2017-02-07] MEDS: IPRATROPIUM 0.5MG/ALBUTEROL 2.5MG INH SOL UD 3ML (DUONEB)(J7620) NEB SCH ×3 (00:57→13:57)
[2017-02-07 03:55] VITALS: BP 113/60
[2017-02-07 04:00] VITALS: BP 113/60
[2017-02-07] MEDS: NORCO, ANEXSIA 5/325MG TABLET (HYDROcodone/ACETAMINOPHEN) PO PRN ×2 (04:58→11:51)
[2017-02-07 05:00] VITALS: BP_SYST 120; BP_SYST 131; BP_SYST 133; BP_DIAS 67; BP_DIAS 73; BP_DIAS 75
[2017-02-07 06:33] LABS: MEAN CORPUSCULAR HEMOGLOBIN 32.7 pg (27.0-33.0); MEAN CORPUSCULAR HGB CONC 34.4 g/dl (32.0-36.5); MEAN CORPUSCULAR VOLUME 95.1 fl (80.0-96.0); PLATELET COUNT, AUTOMATED 199 10^3/uL (150-450); RED CELL DISTRIBUTION WIDTH 13.8 % (11.5-14.5); WHITE BLOOD COUNT 14.6 10^3/uL (4.0-10.0)
[2017-02-07 06:53] LABS: ALBUMIN 3.4 GM/DL (3.2-5.2); ALKALINE PHOSPHATASE 52 U/L (45-117); ALT/SGPT 23 U/L (12-78); ANION GAP 10 MEQ/L (8-16); AST/SGOT 10 U/L (15-37); BILIRUBIN,TOTAL 0.4 MG/DL (0.2-1.0); BLOOD UREA NITROGEN 23 MG/DL (7-18); CALCIUM LEVEL 8.7 MG/DL (8.8-10.2); CARBON DIOXIDE LEVEL 24 MEQ/L (21-32); CHLORIDE LEVEL 103 MEQ/L (98-107); CREATININE FOR GFR 0.78 MG/DL (0.70-1.30); GLOMERULAR FILTRATION RATE > 60.0 (>49); GLUCOSE, FASTING 210 MG/DL (80-110); MAGNESIUM LEVEL 2.1 MG/DL (1.8-2.4); SODIUM LEVEL 137 MEQ/L (136-145); TOTAL PROTEIN 6.8 GM/DL (6.4-8.2)
[2017-02-07] MEDS: ADVAIR HFA 230/21MCG INHALER INH SCH (08:28)
[2017-02-07] MEDS: HumaLOG INSULIN (NovoLOG) PER UNIT SC SCH ×2 (08:47→13:12)
[2017-02-07 08:48] VITALS: BP 131/67
[2017-02-07] MEDS: APIXABAN 5 MG TAB (ELIQUIS) PO SCH (08:48)
[2017-02-07] MEDS: TOPIRAMATE (TopAMAX) 25 MG TAB PO SCH (08:48)
[2017-02-07] MEDS: LORATADINE 10 MG TAB PO SCH (08:48)
[2017-02-07] MEDS: levETIRAcetam 250MG TABLET (KEPPRA) PO SCH (08:48)
[2017-02-07] MEDS: DIGOXIN 0.125 MG TAB PO SCH (08:48)
[2017-02-07] MEDS: PANTOPRAZOLE 40MG TAB (PROTONIX) PO SCH (08:48)
[2017-02-07] MEDS: GABAPENTIN 300 MG CAP PO SCH ×2 (08:48→15:54)
[2017-02-07] MEDS: ASPIRIN 81 MG ENTERIC TAB PO SCH (08:48)
[2017-02-07] MEDS ORDERED: predniSONE 10 MG TAB PO SCH (09:00)
[2017-02-07] MEDS ORDERED: GABA-282 PO (12:56)
[2017-02-07 14:00] VITALS: BP 134/82
--- NOTE | 2017-02-09 07:25 | DSES ---
DATE OF ADMISSION: 02/04/2017 DATE OF DISCHARGE: 02/07/2017 PRIMARY CARE PROVIDER: Gonzalez Rob MD PAIN PLATE GLASS POLISHER: Nina Hutchison NP FINAL DIAGNOSES: Syncope. Chest pain. Chronic back pain. Chronic obstructive pulmonary disease (COPD). Diabetes. Atrial fibrillation. Coronary arterial disease. Dyslipidemia. Hypertension. Seizure disorder. Gastroesophageal reflux disease (GERD). Deconditioning. HISTORY OF PRESENT ILLNESS: This is a 62-year-old male patient with underlying medical history of COPD, hypertension, diabetes, coronary arterial disease, atrial fibrillation, on Eliquis, chronic back pain, seizure disorder, Parkinson's disease, presented to the emergency room. Had an syncopal episode in the kitchen. The patient states that he was in the kitchen fixing himself some lunch and he suddenly felt lightheaded and passed out. He states that he was down for approximately 5 minutes and then crawled to the recliner to call for EMS. The patient denies any symptoms of chest pain, palpitations, abdominal pain, fecal urinary incontinence, jerking activities, tongue biting or any nausea, vomiting or diarrhea noted that the patient has had multiple times in the emergency department in the past for fall. The patient states that he uses motor scooter at baseline to get around, however, at times he walks by holding onto furniture and he states that he would like to get a rolling walker with a seat. Denies any acute complaints at this time. The patient is admitted to the hospital. EKG is appreciated. Cardiac enzyme was done. Pain management was consulted. Cardiac enzymes have remained negative with no EKG changes. Physical therapy has been done for the patient. The patient's cause of syncope remain a puzzle. Possible autonomic neuropathy, diabetes, or Parkinson's disease. Carotid ultrasound appreciated, has been negative. Telemetry has been appreciated, unfortunately due to lack of availability, echo has not been done during this hospital course. Issue of lack of echo ability has been addressed to administration. The patient's pain medication was continued. Insulin was continued as well. The patient initially had some wheeze, was resolved with some prednisone and nebulizer treatment. The patient's home medication was continued. The patient's statin and seizure medication, blood pressure medication was also continued. Deep venous thrombosis (DVT) prophylaxis was provided. CT of the head has been appreciated. The patient currently reported back to baseline, in no acute distress. Passed physical therapy and would like to be discharged. The option of rehabilitation and also care home placement has been discussed with patient, given repeat admissions. The patient has refused. The case was discussed with Patient and Family Services (PFS). VITAL SIGNS: Temperature 97.6, pulse 87, respirations 18, blood pressure 134/82, pulse oximetry 95% on room air. Orthostatic has been negative. GENERAL: The patient alert and oriented times three. No acute distress. HEENT: Normocephalic, atraumatic. PULMONARY: Bilateral clear to auscultation. CARDIAC: Regular rate and rhythm. Normal S1, S2. ABDOMEN: Soft, nontender, positive bowel sounds. EXTREMITIES: No clubbing, cyanosis or edema. LABORATORY: WBC 14.6, hemoglobin and hematocrit 12.8/37.2, platelets 199. Chemistry: Sodium 137, potassium 4, chloride 103, bicarbonate 24, BUN 23, creatinine 0.78. Cardiac enzymes has been negative. DISCHARGE MEDICATION: - gabapentin 300 mg by mouth three times a day - albuterol nebulizer treatment every 4 hours as needed - Eliquis 5 mg by mouth twice a day - aspirin 81 mg by mouth daily - digoxin 0.125 mg by mouth daily - diltiazem 240 mg by mouth daily - Nexium 40 mg by mouth daily - glimepiride 4 mg by mouth twice a day - Lantus 30 units subcutaneous at bedtime - Keppra 100 mg by mouth twice a day - loratadine 10 mg by mouth daily - neomycin polymyxin eye drops intraocular four times a day - nitroglycerin sublingual 0.4 mg sublingual as needed - Crestor 5 mg by mouth at bedtime - Advair 500/50 mcg inhalation twice a day - topiramate 50 mg by mouth twice a day - trazodone 100 mg by mouth at bedtime DISCHARGE INSTRUCTIONS: The patient is instructed to followup with primary care provider in 7 days. Return to the hospital if symptoms worsen. Home with services has been recommended. The patient refused care home placement. High risk for readmission. Patient and Family Services was consulted. Also four wheel rolling walker has been ordered for the patient as well. Return to the hospital if symptoms return. Fall precautions. An echo was not done due to lack of available due to his admission. Estimated time spent arranging and coordinating discharge: 35 minutes.
== END 2017-02-07 17:20 | disposition home or self-care (01) | DRG 74 ==
LOC: EDBD 22:05 → M ED 22:05 → M ED INP 22:06 → OBSVTOIN 02-04 09:43 → M ICU 02-04 09:43 → M MSPAV 02-05 14:03
PROVIDERS: ADMIT Internal Medicine; ATTEND Hospitalist
DX: E11.43 Type 2 diabetes mellitus with diabetic autonomic (poly)neuropathy (principal); R55 Syncope and collapse; M54.5 Low back pain; J44.9 Chronic obstructive pulmonary disease, unspecified; I48.91 Unspecified atrial fibrillation; I25.10 Atherosclerotic heart disease of native coronary artery without angina pectoris; E78.5 Hyperlipidemia, unspecified; K21.9 Gastro-esophageal reflux disease without esophagitis; I10 Essential (primary) hypertension; G40.909 Epilepsy, unspecified, not intractable, without status epilepticus; G90.1 Familial dysautonomia [Riley-Day]; Z79.01 Long term (current) use of anticoagulants; G20 Parkinson's disease; Z79.899 Other long term (current) drug therapy; Z79.82 Long term (current) use of aspirin; Z88.8 Allergy status to other drugs, medicaments and biological substances; Z88.0 Allergy status to penicillin; F17.200 Nicotine dependence, unspecified, uncomplicated; R29.6 Repeated falls; M79.1 Myalgia; M54.2 Cervicalgia

== ENCOUNTER 2017-03-04 22:03 | Emergency (ER) | payer MEDICARE, MEDICAID ==
[~2017-03-04] VITALS: Ht 172.7 cm; Wt 64.1 kg
[~2017-03-04 22:03] MED LIST changes: +ASPI1TAB PO; +CORT1SOL3 AU; +CRES5TAB PO; +DIGO0.25 PO; +DILT240C PO; +DOXY100T PO; +ESOM1CAP5 PO; +GABA-282 PO
[2017-03-04 22:11] VITALS: BP 140/86
[2017-03-04] MEDS ORDERED: NS 1,000 ML IV SCH (22:26)
[2017-03-04] MEDS ORDERED: ALBUTEROL SULFATE 2.5 MG/0.5 ML INH NEB SOLN NEB ONE (22:30)
[2017-03-04] MEDS ORDERED: ACETAMINOPHEN TAB 650MG DOSE (2X325MG) PO ONE (23:30)
[2017-03-04 23:36] LABS: VENOUS BASE EXCESS -2.3 (-2.0-2.0); VENOUS O2 SATURATION 92.9 % (60.0-80.0); VENOUS PARTIAL PRESSURE CO2 35.9 mmHg (38.0-50.0); VENOUS PARTIAL PRESSURE O2 63.2 mmHg (30.0-50.0); VENOUS STANDARD HCO3 22.5 MEQ/L
[2017-03-04 23:43] LABS: BASO # 0.1 10^3/uL (0.0-0.2); BASO % 0.6 % (0.0-1.0); EOS # 0.5 10^3/uL (0.0-0.50); EOS % 6.4 % (0.0-3.0); IMMATURE GRANULOCYTE % 0.1 % (0-0); LYMPH # 3.7 10^3/uL (1.5-4.5); MEAN CORPUSCULAR HEMOGLOBIN 33.1 pg (27.0-33.0); MEAN CORPUSCULAR HGB CONC 35.4 g/dl (32.0-36.5); MEAN CORPUSCULAR VOLUME 93.5 fl (80.0-96.0); MONO # 0.7 10^3/uL (0.0-0.8); MONO % 8.8 % (0.0-5.0); NEUTROPHILS # 2.9 10^3/uL (1.8-7.7); NEUTROPHILS % 37.1 % (36.0-66.0); PLATELET COUNT, AUTOMATED 188 10^3/uL (150-450); RED CELL DISTRIBUTION WIDTH 13.8 % (11.5-14.5); WHITE BLOOD COUNT 7.9 10^3/uL (4.0-10.0)
[2017-03-05 01:28] LABS: CHLORIDE LEVEL 108 MEQ/L (98-107); POTASSIUM SERUM 3.7 MEQ/L (3.5-5.1); SODIUM LEVEL 140 MEQ/L (136-145)
[2017-03-05 01:37] LABS: INR 1.29
[2017-03-05 01:48] LABS: ALKALINE PHOSPHATASE 68 U/L (45-117); ALT/SGPT 27 U/L (12-78); AST/SGOT 18 U/L (7-37); BILIRUBIN,DIRECT < 0.1 MG/DL (0.0-0.2); BILIRUBIN,TOTAL 0.3 MG/DL (0.2-1.0); BLOOD UREA NITROGEN 10 MG/DL (7-18); CALCIUM LEVEL 8.3 MG/DL (8.8-10.2); CREATININE FOR GFR 0.75 MG/DL (0.70-1.30); DIGOXIN LEVEL 0.3 NG/ML (0.5-2.0); GLUCOSE, FASTING 248 MG/DL (80-110); TOTAL PROTEIN 6.5 GM/DL (6.4-8.2)
[2017-03-05 04:21] LABS: ALBUMIN 3.2 GM/DL (3.2-5.2); ALBUMIN/GLOBULIN RATIO 0.97 (1.00-1.93); ANION GAP 6 MEQ/L (8-16); CARBON DIOXIDE LEVEL 26 MEQ/L (21-32)
--- NOTE | 2017-03-05 05:49 | ECGEPIP ---
Stationary ECG Study [facility] - ED Test Date: 2017-03-04 Pat Name: PATY CH Department: Room: - Gender: M Material Clerk: HerronB: 1955 Requested By: ANNY Gongora Order Number: [id number] Reading MD: Joseph Sanchez Measurements Intervals [place] Rate: 75 P: 32 [place]: 214 QRS: 38 QRSD: 98 T: 28 QT: 368 QTc: 412 Interpretive Statements SINUS RHYTHM WITH FIRST DEGREE AV BLOCK NSTTW ABNORMALITIES SIMILAR TO 02/05/17 Electronically Signed On 03-05-2017 5:49:36 EST by Joseph Sanchez
--- NOTE | 2017-03-05 05:51 | ECGEPIP ---
Stationary ECG Study [facility] - ED Test Date: 2017-03-05 Pat Name: PATY CH Department: Room: - Gender: M Rental Manager: HerronB: 1955 Requested By: ANNY Gongora Order Number: [id number] Reading MD: Joseph Sanchez Measurements Intervals [place] Rate: 75 P: 31 MD: 196 QRS: 53 QRSD: 94 T: 28 QT: 378 QTc: 422 Interpretive Statements SINUS RHYTHM WITH FIRST DEGREE AV BLOCK NONSPECIFIC T-WAVE ABNORMALITY SIMILAR TO 03/04/17 Electronically Signed On 03-05-2017 5:51:13 EST by Joseph Sanchez
--- NOTE | 2017-03-05 08:11 | REP ---
Clinical: Cough and dyspnea . Comparison: 02/03/2017 . Findings: The mediastinum and cardiac silhouette are stable and within normal limits for portable technique. The lung forte demonstrate chronic stable changes without acute consolidation, effusion, or pneumothorax. Skeletal structures are intact. Impression: No acute cardiopulmonary process appreciated. Signed by Schuyler Burrell MD 03/05/2017 08:03 A
== END 2017-03-05 04:17 | disposition home or self-care (01) ==
LOC: M ED 22:03
DX: R07.89 Other chest pain (principal); E11.9 Type 2 diabetes mellitus without complications; I10 Essential (primary) hypertension; Z79.899 Other long term (current) drug therapy

== ENCOUNTER 2017-03-15 21:53 | Emergency (ER) | payer MEDICARE, MEDICAID ==
[~2017-03-15] VITALS: Ht 172.7 cm; Wt 64.1 kg
[2017-03-15] MEDS ORDERED: MORPHINE 2 MG/ML 1ML SYRINGE IV ONE (22:15)
[2017-03-15] MEDS ORDERED: ONDANSETRON 4MG/2ML VIAL (J2405) IV ONE (22:15)
[2017-03-15 22:25] VITALS: BP 132/84
[2017-03-15] MEDS ORDERED: ALBUTEROL SULFATE 2.5 MG/0.5 ML INH NEB SOLN NEB ONE ×2 (22:30→23:30)
[2017-03-15] MEDS ORDERED: predniSONE 20 MG TAB PO ONE (22:30)
[2017-03-15 22:53] LABS: BASO # 0.1 10^3/uL (0.0-0.2); BASO % 1.2 % (0.0-1.0); EOS # 0.6 10^3/uL (0.0-0.50); EOS % 6.5 % (0.0-3.0); IMMATURE GRANULOCYTE % 0.2 % (0-0); LYMPH # 3.8 10^3/uL (1.5-4.5); LYMPH % 44.5 % (24.0-44.0); MEAN CORPUSCULAR HEMOGLOBIN 33.2 pg (27.0-33.0); MEAN CORPUSCULAR HGB CONC 35.5 g/dl (32.0-36.5); MEAN CORPUSCULAR VOLUME 93.5 fl (80.0-96.0); MONO # 0.6 10^3/uL (0.0-0.8); MONO % 7.5 % (0.0-5.0); NEUTROPHILS # 3.4 10^3/uL (1.8-7.7); NEUTROPHILS % 40.1 % (36.0-66.0); PLATELET COUNT, AUTOMATED 240 10^3/uL (150-450); RED CELL DISTRIBUTION WIDTH 14.1 % (11.5-14.5); WHITE BLOOD COUNT 8.5 10^3/uL (4.0-10.0)
[2017-03-15 23:10] LABS: ALBUMIN 3.7 GM/DL (3.2-5.2); ALBUMIN/GLOBULIN RATIO 0.97 (1.00-1.93); ALKALINE PHOSPHATASE 80 U/L (45-117); ALT/SGPT 31 U/L (12-78); ANION GAP 5 MEQ/L (8-16); BILIRUBIN,DIRECT < 0.1 MG/DL (0.0-0.2); BILIRUBIN,TOTAL 0.4 MG/DL (0.2-1.0); BLOOD UREA NITROGEN 12 MG/DL (7-18); CALCIUM LEVEL 8.8 MG/DL (8.8-10.2); CARBON DIOXIDE LEVEL 27 MEQ/L (21-32); CHLORIDE LEVEL 107 MEQ/L (98-107); CREATININE FOR GFR 0.93 MG/DL (0.70-1.30); GLOMERULAR FILTRATION RATE > 60.0 (>49); GLUCOSE, FASTING 199 MG/DL (80-110); POTASSIUM SERUM 3.9 MEQ/L (3.5-5.1); SODIUM LEVEL 139 MEQ/L (136-145); TOTAL PROTEIN 7.5 GM/DL (6.4-8.2)
[2017-03-15 23:11] LABS: ERYTHROCYTE SEDIMENTATION RATE 7 mm/hr (0-20)
[2017-03-15 23:18] LABS: AST/SGOT 20 U/L (7-37)
[2017-03-15] MEDS ORDERED: LORazepam 2 MG/ML VIAL (J2060) IV STA (23:26)
[2017-03-15] MEDS ORDERED: PRED20TA PO (23:39)
--- NOTE | 2017-03-16 07:59 | REP ---
Chest one-view HISTORY: Chest pain Comparison: 03/04/2017 The lungs are clear. The heart is normal in size. The pulmonary vasculature is normal in appearance. Impression: No acute disease. Signed by Best Ozuna MD 03/16/2017 07:51 A
--- NOTE | 2017-03-16 10:54 | ECGEPIP ---
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
== END 2017-03-16 03:21 | disposition home or self-care (01) ==
LOC: EDBD 21:53 → M ED 21:53
DX: J40 Bronchitis, not specified as acute or chronic (principal); I48.91 Unspecified atrial fibrillation; I11.9 Hypertensive heart disease without heart failure; I25.10 Atherosclerotic heart disease of native coronary artery without angina pectoris; J44.9 Chronic obstructive pulmonary disease, unspecified; E11.9 Type 2 diabetes mellitus without complications; G40.909 Epilepsy, unspecified, not intractable, without status epilepticus; G20 Parkinson's disease; F17.200 Nicotine dependence, unspecified, uncomplicated; Z79.899 Other long term (current) drug therapy; Z79.4 Long term (current) use of insulin; Z79.82 Long term (current) use of aspirin; Z88.8 Allergy status to other drugs, medicaments and biological substances; Z88.0 Allergy status to penicillin; Z88.6 Allergy status to analgesic agent
CPT/HCPCS: 71010; 80048; 80076; 82550; 82553; 83690; 83880; 84443; 84484; 85025; 85652; 86140; 87040; 93005; 93041; 94640; 94760; 96374; 96375; 99284; G0480; J2060; J2405

== ENCOUNTER 2017-03-20 16:42 | Emergency (ER) | payer MEDICARE, MEDICAID ==
[2017-03-20] MEDS ORDERED: IPRATROPIUM 0.5MG/ALBUTEROL 2.5MG INH SOL UD 3ML (DUONEB)(J7620) NEB ONE ×2 (17:00→20:30)
[2017-03-20] MEDS ORDERED: ASPIRIN 81 MG CHEW TABLET PO ONE (17:00)
--- NOTE | 2017-03-20 17:18 | REP ---
Chest one-view HISTORY: Chest pain Comparison: 03/15/2017 The lungs are clear. The heart is normal in size. The pulmonary vasculature is normal in appearance. Impression: No acute disease. Signed by Best Ozuna MD 03/20/2017 05:10 P
[2017-03-20 17:40] LABS: BASO % 0.5 % (0.0-1.0); EOS # 0.2 10^3/uL (0.0-0.50); EOS % 3.3 % (0.0-3.0); IMMATURE GRANULOCYTE % 0.3 % (0-0); LYMPH # 2.8 10^3/uL (1.5-4.5); LYMPH % 46.2 % (24.0-44.0); MEAN CORPUSCULAR HEMOGLOBIN 32.7 pg (27.0-33.0); MEAN CORPUSCULAR HGB CONC 35.6 g/dl (32.0-36.5); MEAN CORPUSCULAR VOLUME 91.8 fl (80.0-96.0); MONO # 0.4 10^3/uL (0.0-0.8); MONO % 7.3 % (0.0-5.0); NEUTROPHILS # 2.6 10^3/uL (1.8-7.7); NEUTROPHILS % 42.4 % (36.0-66.0); PLATELET COUNT, AUTOMATED 193 10^3/uL (150-450); RED CELL DISTRIBUTION WIDTH 13.7 % (11.5-14.5)
[2017-03-20 18:13] LABS: ALBUMIN 3.2 GM/DL (3.2-5.2); ALBUMIN/GLOBULIN RATIO 1.03 (1.00-1.93); ALKALINE PHOSPHATASE 61 U/L (45-117); ALT/SGPT 23 U/L (12-78); ANION GAP 7 MEQ/L (8-16); AST/SGOT 11 U/L (7-37); BILIRUBIN,DIRECT 0.1 MG/DL (0.0-0.2); BILIRUBIN,TOTAL 0.4 MG/DL (0.2-1.0); BLOOD UREA NITROGEN 11 MG/DL (7-18); CALCIUM LEVEL 8.5 MG/DL (8.8-10.2); CARBON DIOXIDE LEVEL 28 MEQ/L (21-32); CHLORIDE LEVEL 106 MEQ/L (98-107); CREATININE FOR GFR 0.79 MG/DL (0.70-1.30); GLOMERULAR FILTRATION RATE > 60.0 (>49); GLUCOSE, FASTING 209 MG/DL (80-110); POTASSIUM SERUM 3.4 MEQ/L (3.5-5.1); SODIUM LEVEL 141 MEQ/L (136-145); TOTAL PROTEIN 6.3 GM/DL (6.4-8.2)
[2017-03-20] MEDS ORDERED: ISOVUE-370 76% 100ML VIAL (Q9967) As Ordered ONE ×2 (18:15→18:41)
[2017-03-20] MEDS ORDERED: MORPHINE 2 MG/ML 1ML SYRINGE IV ONE (18:30)
--- NOTE | 2017-03-20 19:09 | ECGEPIP ---
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
[2017-03-20 19:55] VITALS: BP 116/63
--- NOTE | 2017-03-20 20:30 | REPUSA ---
CLINICAL HISTORY: Signs and symptoms of pulmonary embolism. TECHNIQUE: CT chest with IV contrast. Total DLP 1309 mGy*cm COMPARISON: October 01, 2016. CT CHEST WITH CONTRAST: Pulmonary arteries: Patent, without emboli. Lungs: Moderate bilateral upper lobe emphysema. Peripheral interstitial changes in the lower lobes. N o pneumothorax, infiltrate, masses or effusion. Heart: Coronary artery calcifications. Normal cardiac size. No significant effusion. Aorta: Normal caliber, without aneurysm or dissection. Mediastinum and yonas: No lymphadenopathy. Bony thorax: Thoracic spondylosis Limited upper abdomen: No acute findings. IMPRESSION: 1. No evidence of pulmonary embolism. 2. Chronic emphysema and interstitial changes.
[2017-03-20 20:43] VITALS: O2SAT 96
--- NOTE | 2017-03-21 05:53 | ECGEPIP ---
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
== END 2017-03-20 22:52 | disposition home or self-care (01) ==
LOC: EDBD 16:42 → M ED 16:42
DX: R07.9 Chest pain, unspecified (principal); R06.02 Shortness of breath; I48.91 Unspecified atrial fibrillation; I10 Essential (primary) hypertension; J44.9 Chronic obstructive pulmonary disease, unspecified; J45.909 Unspecified asthma, uncomplicated; G20 Parkinson's disease; F17.290 Nicotine dependence, other tobacco product, uncomplicated
CPT/HCPCS: 71010; 71275; 80048; 80076; 82550; 82553; 83880; 84484; 85025; 93005; 93041; 94640; 94760; 96374; 99285; Q9967

== ENCOUNTER 2017-03-29 13:27 | Emergency (ER) | payer MEDICARE, MEDICAID ==
[~2017-03-29] VITALS: Ht 172.7 cm; Wt 63.0 kg
[2017-03-29 14:16] LABS: BASO # 0.1 10^3/uL (0.0-0.2); BASO % 0.8 % (0.0-1.0); EOS # 0.4 10^3/uL (0.0-0.50); IMMATURE GRANULOCYTE % 0.3 % (0-0); LYMPH % 37.2 % (24.0-44.0); MEAN CORPUSCULAR HEMOGLOBIN 33.2 pg (27.0-33.0); MEAN CORPUSCULAR VOLUME 94.7 fl (80.0-96.0); MONO # 0.7 10^3/uL (0.0-0.8); MONO % 8.2 % (0.0-5.0); NEUTROPHILS # 3.9 10^3/uL (1.8-7.7); NEUTROPHILS % 48.5 % (36.0-66.0); PLATELET COUNT, AUTOMATED 224 10^3/uL (150-450); RED CELL DISTRIBUTION WIDTH 14.1 % (11.5-14.5)
[2017-03-29 14:27] LABS: INR 1.08
--- NOTE | 2017-03-29 14:42 | REP ---
CT of the brain without IV contrast: Comparison is 02/03/2017. There is no hemorrhage. There is no edema, mass effect or midline shift. The ventricles and sulci are dilated as previously compatible with diffuse volume loss. There is heterogeneity in the periventricular white matter compatible with chronic microvascular ischemia. There is no change from the prior study. Impression: There is no hemorrhage, acute infarct or mass. There is a chronic mild volume loss. There is evidence for chronic microvascular ischemia. There is opacification of many of the ethmoid sinuses compatible with sinusitis. Signed by Tulio Tirado MD 03/29/2017 02:33 P
[2017-03-29] MEDS ORDERED: ALBUTEROL SULFATE 2.5 MG/0.5 ML INH NEB SOLN INH ONE (15:45)
--- NOTE | 2017-03-29 15:57 | REP ---
CHEST, PORTABLE: AP portable view of the chest is performed and compared to prior studies, the most recent of which is 03/20/2017. There is mild linear bibasilar fibroatelectatic change without evidence of infiltrate. Heart is normal in size. There is mild calcification of the thoracic aorta. The mediastinal silhouette is unchanged. IMPRESSION: Mild bibasilar fibroatelectatic change without acute infiltrate. Signed by Tulio Poole MD 03/29/2017 05:02 P
[2017-03-29 16:40] VITALS: BP 116/73
--- NOTE | 2017-03-29 18:13 | ECGEPIP ---
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
--- NOTE | 2017-03-29 19:00 | REPUSA ---
Clinical history: weakness. Technique: [id number] MRA images of the brain were obtained without administration of contrast. 3 -D MIP images were also obtained. Findings: The vascular structures extending from the distal carotid and vertebrobasilar arterial syst ems, through the [place] of [place], demonstrate normal caliber and contour. There is no evidence of an eurysm, stenosis, or thrombosis. Impression: Unremarkable MRA examination of the brain.
--- NOTE | 2017-03-29 19:00 | REPUSA ---
MRI of the brain Clinical history: Slurred speech. Technique: Multiecho multiplanar MRI images of the brain were obtained without administration of cont rast. Diffusion weighted images with ADC mapping was also obtained. Comparison: CT, 10/31/2015. Findings: The ventricles and sulci are symmetric bilaterally. The brain parenchyma demonstrates uniform and nor mal signal on all sequences. There is no midline shift, mass effect, or extra-axial fluid collection. The midline intracranial structures do not demonstrate any gross abnormalities. The cervical cranial junction is intact. The orbits are unremarkable. The visualized paranasal sinuses and mastoid air ce lls are clear. The osseous structures and superficial soft tissues are unremarkable. The vascular str uctures demonstrate appropriate flow voids. Impression: Normal MRI of the Brain.
[2017-03-29 20:34] LABS: ANION GAP 4 MEQ/L (8-16); BLOOD UREA NITROGEN 11 MG/DL (7-18); CALCIUM LEVEL 8.8 MG/DL (8.8-10.2); CARBON DIOXIDE LEVEL 26 MEQ/L (21-32); CHLORIDE LEVEL 109 MEQ/L (98-107); CREATININE FOR GFR 0.98 MG/DL (0.70-1.30); GLOMERULAR FILTRATION RATE > 60.0 (>49); GLUCOSE, FASTING 210 MG/DL (80-110); POTASSIUM SERUM 5.1 MEQ/L (3.5-5.1); SODIUM LEVEL 139 MEQ/L (136-145)
[2017-03-29 20:46] LABS: DIGOXIN LEVEL 0.4 NG/ML (0.5-2.0)
== END 2017-03-29 20:55 | disposition home or self-care (01) ==
LOC: M ED 13:27
DX: J44.9 Chronic obstructive pulmonary disease, unspecified (principal); F43.0 Acute stress reaction; I44.0 Atrioventricular block, first degree; R94.31 Abnormal electrocardiogram [ECG] [EKG]; E11.9 Type 2 diabetes mellitus without complications; G40.909 Epilepsy, unspecified, not intractable, without status epilepticus; I48.91 Unspecified atrial fibrillation; J30.2 Other seasonal allergic rhinitis; Z79.82 Long term (current) use of aspirin; Z79.01 Long term (current) use of anticoagulants; Z79.4 Long term (current) use of insulin; Z79.899 Other long term (current) drug therapy; Z88.6 Allergy status to analgesic agent; Z88.8 Allergy status to other drugs, medicaments and biological substances; Z88.0 Allergy status to penicillin

== ENCOUNTER 2017-05-20 06:42 | Emergency (ER) | payer MEDICARE, MEDICAID ==
[2017-05-20] MEDS: ASPIRIN 81 MG CHEW TABLET PO (07:15)
[2017-05-20 07:29] LABS: BASO # 0.1 10^3/uL (0.0-0.2); EOS # 0.3 10^3/uL (0.0-0.50); EOS % 5.3 % (0.0-3.0); HEMATOCRIT 38.7 % (42.0-52.0); HEMOGLOBIN 13.4 g/dl (14.0-18.0); IMMATURE GRANULOCYTE % 0.2 % (0-0); LYMPH # 2.8 10^3/uL (1.5-4.5); LYMPH % 53.9 % (24.0-44.0); MEAN CORPUSCULAR HEMOGLOBIN 33.1 pg (27.0-33.0); MEAN CORPUSCULAR HGB CONC 34.6 g/dl (32.0-36.5); MEAN CORPUSCULAR VOLUME 95.6 fl (80.0-96.0); MONO # 0.4 10^3/uL (0.0-0.8); NEUTROPHILS # 1.7 10^3/uL (1.8-7.7); NEUTROPHILS % 32.6 % (36.0-66.0); PLATELET COUNT, AUTOMATED 141 10^3/uL (150-450); RED BLOOD COUNT 4.05 10^6/uL (4.30-6.10); RED CELL DISTRIBUTION WIDTH 14.7 % (11.5-14.5); WHITE BLOOD COUNT 5.1 10^3/uL (4.0-10.0)
[2017-05-20 07:48] LABS: ANION GAP 9 MEQ/L (8-16); BLOOD UREA NITROGEN 7 MG/DL (7-18); CARBON DIOXIDE LEVEL 22 MEQ/L (21-32); CHLORIDE LEVEL 109 MEQ/L (98-107); CK-MB VALUE MASS 2.8 NG/ML (0.0-3.6); CPK CREATINE PHOSPHOKINASE 154 U/L (39-308); CREATININE FOR GFR 0.89 MG/DL (0.70-1.30); GLOMERULAR FILTRATION RATE > 60.0 (>49); GLUCOSE, FASTING 285 MG/DL (70-100); MB/CK RELATIVE INDEX 1.81 (< OR =4); POTASSIUM SERUM 3.5 MEQ/L (3.5-5.1); SODIUM LEVEL 140 MEQ/L (136-145); TROPONIN I < 0.02 NG/ML (< 0.10)
[2017-05-20 07:48] LABS: NT-PRO BNP 17 PG/ML (<125)
[2017-05-20] MEDS: PANTOPRAZOLE 40MG INJ (PROTONIX) (C9113) IV (08:35)
[2017-05-20] MEDS: GI COCKTAIL 50ML BTL(HYOSCYAMINE/MAALOX/LIDOCAINE VISCOUS)(1:3:1) XX (08:35)
[2017-05-20 10:48] LABS: CPK CREATINE PHOSPHOKINASE 135 U/L (39-308); TROPONIN I < 0.02 NG/ML (< 0.10)
[2017-05-20 10:49] LABS: MB/CK RELATIVE INDEX 2.22 (< OR =4)
[2017-05-20] MEDS: IPRATROPIUM 0.5MG/ALBUTEROL 2.5MG INH SOL UD 3ML (DUONEB)(J7620) NEB (11:48)
== END 2017-05-20 12:09 | disposition home or self-care (01) ==
LOC: M ED 06:42
DX: R07.9 Chest pain, unspecified (principal); I44.0 Atrioventricular block, first degree; R94.31 Abnormal electrocardiogram [ECG] [EKG]; I50.9 Heart failure, unspecified; I25.2 Old myocardial infarction; I10 Essential (primary) hypertension; E11.9 Type 2 diabetes mellitus without complications; J45.909 Unspecified asthma, uncomplicated; J44.9 Chronic obstructive pulmonary disease, unspecified; G47.30 Sleep apnea, unspecified; J30.2 Other seasonal allergic rhinitis; F17.200 Nicotine dependence, unspecified, uncomplicated; F12.10 Cannabis abuse, uncomplicated; Z79.82 Long term (current) use of aspirin; Z79.4 Long term (current) use of insulin; Z79.899 Other long term (current) drug therapy; Z88.6 Allergy status to analgesic agent; Z88.0 Allergy status to penicillin; Z88.8 Allergy status to other drugs, medicaments and biological substances
CPT/HCPCS: C9113

== ENCOUNTER 2017-06-20 20:30 | Emergency (ER) | payer MEDICARE, MEDICAID ==
[2017-06-20] MEDS: IPRATROPIUM 0.5MG/ALBUTEROL 2.5MG INH SOL UD 3ML (DUONEB)(J7620) NEB (21:30)
== END 2017-06-20 23:21 | disposition home or self-care (01) ==
LOC: M ED 20:30
DX: J06.9 Acute upper respiratory infection, unspecified (principal); J44.9 Chronic obstructive pulmonary disease, unspecified; I25.10 Atherosclerotic heart disease of native coronary artery without angina pectoris; F41.1 Generalized anxiety disorder; Z79.899 Other long term (current) drug therapy; Z79.4 Long term (current) use of insulin; Z79.82 Long term (current) use of aspirin; Z79.01 Long term (current) use of anticoagulants; Z79.51 Long term (current) use of inhaled steroids; Z88.0 Allergy status to penicillin; Z88.8 Allergy status to other drugs, medicaments and biological substances; F17.210 Nicotine dependence, cigarettes, uncomplicated
CPT/HCPCS: 94640

== ENCOUNTER 2017-07-07 21:55 | Emergency (ER) | payer MEDICARE, MEDICAID | END 2017-07-08 04:30 | disposition home or self-care (01) | LOC: M ED 21:55 | DX: D17.21 Benign lipomatous neoplasm of skin and subcutaneous tissue of right arm (principal); E11.9 Type 2 diabetes mellitus without complications; J44.9 Chronic obstructive pulmonary disease, unspecified; I25.10 Atherosclerotic heart disease of native coronary artery without angina pectoris; Z79.899 Other long term (current) drug therapy; Z79.01 Long term (current) use of anticoagulants; Z79.82 Long term (current) use of aspirin; Z79.4 Long term (current) use of insulin; Z79.51 Long term (current) use of inhaled steroids; Z88.0 Allergy status to penicillin; Z88.8 Allergy status to other drugs, medicaments and biological substances; F17.210 Nicotine dependence, cigarettes, uncomplicated | CPT/HCPCS: 99282 ==

== ENCOUNTER 2017-07-25 17:25 | Emergency (ER) | payer MEDICARE, MEDICAID ==
[2017-07-25] MEDS: NS 500 ML IV (18:00)
[2017-07-25 18:21] LABS: BASO % 0.5 % (0.0-1.0); EOS # 0.3 10^3/uL (0.0-0.50); EOS % 4.4 % (0.0-3.0); HEMATOCRIT 40.2 % (42.0-52.0); HEMOGLOBIN 14.1 g/dl (13.5-17.5); IMMATURE GRANULOCYTE % 0.2 % (0-3.0); LYMPH # 1.6 10^3/uL (1.5-4.5); LYMPH % 24.7 % (24.0-44.0); MEAN CORPUSCULAR HEMOGLOBIN 32.2 pg (27.0-33.0); MEAN CORPUSCULAR HGB CONC 35.1 g/dl (32.0-36.5); MEAN CORPUSCULAR VOLUME 91.8 fl (80.0-96.0); MONO # 0.3 10^3/uL (0.0-0.8); MONO % 4.8 % (0.0-5.0); NEUTROPHILS # 4.2 10^3/uL (1.8-7.7); NEUTROPHILS % 65.4 % (36.0-66.0); PLATELET COUNT, AUTOMATED 145 10^3/uL (150-450); RED BLOOD COUNT 4.38 10^6/uL (4.30-6.10); WHITE BLOOD COUNT 6.4 10^3/uL (4.0-10.0)
[2017-07-25 18:52] LABS: ALBUMIN 3.6 GM/DL (3.2-5.2); ALBUMIN/GLOBULIN RATIO 0.92 (1.00-1.93); ALKALINE PHOSPHATASE 78 U/L (45-117); ALT/SGPT 29 U/L (12-78); ANION GAP 4 MEQ/L (8-16); AST/SGOT 20 U/L (7-37); BILIRUBIN,DIRECT 0.2 MG/DL (0.0-0.2); BILIRUBIN,TOTAL 0.5 MG/DL (0.2-1.0); BLOOD UREA NITROGEN 13 MG/DL (7-18); CALCIUM LEVEL 8.5 MG/DL (8.8-10.2); CARBON DIOXIDE LEVEL 25 MEQ/L (21-32); CHLORIDE LEVEL 107 MEQ/L (98-107); CPK CREATINE PHOSPHOKINASE 263 U/L (39-308); GLOMERULAR FILTRATION RATE > 60.0 (>49); GLUCOSE, FASTING 109 MG/DL (70-100); POTASSIUM SERUM 3.6 MEQ/L (3.5-5.1); SODIUM LEVEL 136 MEQ/L (136-145); TOTAL PROTEIN 7.5 GM/DL (6.4-8.2); TROPONIN I < 0.02 NG/ML (< 0.10)
[2017-07-25 18:57] LABS: MB/CK RELATIVE INDEX 1.52 (< OR =4); NT-PRO BNP 11 PG/ML (<125)
[2017-07-25] MEDS: ACETAMINOPH W/CODEINE #3 TAB UD PO ×2 (19:00→21:03)
[2017-07-25 19:06] LABS: DIGOXIN LEVEL 0.3 NG/ML (0.5-2.0)
[2017-07-25] MEDS: ALBUTEROL 90 MCG/ACT 8GM HFA INHALER INH (21:04)
== END 2017-07-25 21:31 | disposition home or self-care (01) ==
LOC: M ED 17:25
DX: R05 Cough (principal); Z91.14 Patient's other noncompliance with medication regimen; I44.0 Atrioventricular block, first degree; R00.0 Tachycardia, unspecified; I11.9 Hypertensive heart disease without heart failure; I25.10 Atherosclerotic heart disease of native coronary artery without angina pectoris; E11.9 Type 2 diabetes mellitus without complications; I48.91 Unspecified atrial fibrillation; J44.9 Chronic obstructive pulmonary disease, unspecified; M54.9 Dorsalgia, unspecified; G20 Parkinson's disease; G40.909 Epilepsy, unspecified, not intractable, without status epilepticus; Z99.81 Dependence on supplemental oxygen; F17.200 Nicotine dependence, unspecified, uncomplicated; Z88.0 Allergy status to penicillin; Z88.8 Allergy status to other drugs, medicaments and biological substances; Z79.899 Other long term (current) drug therapy; Z79.4 Long term (current) use of insulin; Z79.51 Long term (current) use of inhaled steroids; Z79.82 Long term (current) use of aspirin
CPT/HCPCS: 71046

== ENCOUNTER 2017-08-30 14:31 | Emergency (ER) | payer MEDICARE, MEDICAID ==
[2017-08-30] MEDS: MORPHINE 2 MG/ML 1ML SYRINGE (J2270) IV ×2 (16:21→17:20)
[2017-08-30] MEDS: PANTOPRAZOLE 40MG INJ (PROTONIX) (C9113) IV (16:21)
[2017-08-30] MEDS: NITROGLYCERIN 0.4 MG SUBL TABLET SL (16:25)
[2017-08-30 16:27] LABS: BASO # 0.1 10^3/uL (0.0-0.2); BASO % 0.9 % (0.0-1.0); EOS # 0.4 10^3/uL (0.0-0.50); EOS % 5.3 % (0.0-3.0); HEMATOCRIT 40.3 % (42.0-52.0); HEMOGLOBIN 13.9 g/dl (13.5-17.5); IMMATURE GRANULOCYTE % 0.3 % (0-3.0); LYMPH # 3.4 10^3/uL (1.5-4.5); LYMPH % 48.6 % (24.0-44.0); MEAN CORPUSCULAR HEMOGLOBIN 32.2 pg (27.0-33.0); MEAN CORPUSCULAR HGB CONC 34.5 g/dl (32.0-36.5); MEAN CORPUSCULAR VOLUME 93.3 fl (80.0-96.0); MONO # 0.5 10^3/uL (0.0-0.8); MONO % 7.2 % (0.0-5.0); NEUTROPHILS # 2.6 10^3/uL (1.8-7.7); NEUTROPHILS % 37.7 % (36.0-66.0); PLATELET COUNT, AUTOMATED 191 10^3/uL (150-450); RED BLOOD COUNT 4.32 10^6/uL (4.30-6.10); RED CELL DISTRIBUTION WIDTH 14.3 % (11.5-14.5)
[2017-08-30 16:45] LABS: INR 1.21; PROTHROMBIN TIME 15.5 SECONDS (12.4-14.5)
[2017-08-30 16:46] LABS: PARTIAL THROMBOPLASTIN TIME 35.5 SECONDS (26.8-37.9)
[2017-08-30 16:47] LABS: AMPHETAMINES LEVEL URINE NEGATIVE (NEGATIVE); BARBITURATES URINE NEGATIVE (NEGATIVE); BENZODIAZEPINES URINE NEGATIVE (NEGATIVE); CANNABINOIDS URINE POSITIVE (NEGATIVE); COCAINE METABOLITE URINE NEGATIVE (NEGATIVE); METHADONE URINE NEGATIVE (NEGATIVE); OPIATES URINE NEGATIVE (NEGATIVE); PHENCYCLIDINE URINE NEGATIVE (NEGATIVE)
[2017-08-30 16:55] LABS: ALBUMIN 3.7 GM/DL (3.2-5.2); ALKALINE PHOSPHATASE 87 U/L (45-117); ALT/SGPT 31 U/L (12-78); ANION GAP 4 MEQ/L (8-16); AST/SGOT 17 U/L (7-37); BILIRUBIN,DIRECT 0.1 MG/DL (0.0-0.2); BILIRUBIN,TOTAL 0.4 MG/DL (0.2-1.0); BLOOD UREA NITROGEN 12 MG/DL (7-18); C REACTIVE PROTEIN QUANTITATIV 0.55 MG/DL (0.00-0.30); CALCIUM LEVEL 8.4 MG/DL (8.8-10.2); CARBON DIOXIDE LEVEL 28 MEQ/L (21-32); CHLORIDE LEVEL 106 MEQ/L (98-107); CPK CREATINE PHOSPHOKINASE 261 U/L (39-308); CREATININE FOR GFR 0.75 MG/DL (0.70-1.30); FREE T4 0.77 NG/DL (0.76-1.46); GLOMERULAR FILTRATION RATE > 60.0 (>49); GLUCOSE, FASTING 233 MG/DL (70-100); POTASSIUM SERUM 3.8 MEQ/L (3.5-5.1); SODIUM LEVEL 138 MEQ/L (136-145); TOTAL PROTEIN 7.4 GM/DL (6.4-8.2); TROPONIN I < 0.02 NG/ML (< 0.10)
[2017-08-30 17:00] LABS: CK-MB VALUE MASS 3.8 NG/ML (<3.6); MB/CK RELATIVE INDEX 1.45 (< OR =4); NT-PRO BNP 9 PG/ML (<125)
[2017-08-30 17:19] LABS: D-DIMER QUANT < 270.0 ng/ml (<500)
[2017-08-30] MEDS: IPRATROPIUM 0.5MG/ALBUTEROL 2.5MG INH SOL UD 3ML (DUONEB)(J7620) NEB ×3 (17:31→18:17)
[2017-08-30 17:36] LABS: CPK CREATINE PHOSPHOKINASE 267 U/L (39-308); TROPONIN I < 0.02 NG/ML (< 0.10)
[2017-08-30 17:37] LABS: CK-MB VALUE MASS 3.8 NG/ML (<3.6); MB/CK RELATIVE INDEX 1.42 (< OR =4)
[2017-08-30 19:45] LABS: CPK CREATINE PHOSPHOKINASE 245 U/L (39-308); TROPONIN I < 0.02 NG/ML (< 0.10)
[2017-08-30 19:46] LABS: CK-MB VALUE MASS 3.3 NG/ML (<3.6); MB/CK RELATIVE INDEX 1.34 (< OR =4)
== END 2017-08-30 20:38 | disposition home or self-care (01) ==
LOC: M ED 14:31
DX: R07.89 Other chest pain (principal); R06.02 Shortness of breath; J44.9 Chronic obstructive pulmonary disease, unspecified; E11.9 Type 2 diabetes mellitus without complications; I25.10 Atherosclerotic heart disease of native coronary artery without angina pectoris; I11.9 Hypertensive heart disease without heart failure; I48.91 Unspecified atrial fibrillation; F17.210 Nicotine dependence, cigarettes, uncomplicated; Z88.0 Allergy status to penicillin; Z88.8 Allergy status to other drugs, medicaments and biological substances; J30.1 Allergic rhinitis due to pollen; Z79.899 Other long term (current) drug therapy; Z79.52 Long term (current) use of systemic steroids; Z79.4 Long term (current) use of insulin; Z79.51 Long term (current) use of inhaled steroids; Z79.82 Long term (current) use of aspirin; Z79.01 Long term (current) use of anticoagulants
CPT/HCPCS: C9113

== ENCOUNTER → 2017-09-12 | Outpatient (REF) | payer MEDICARE, MEDICAID ==
[2017-09-12 21:18] LABS: PROSTATIC SPECIFIC AG MONITOR 1.02 NG/ML (< 4.0)
== END ==
LOC: M LAB REF 19:23
DX: Z12.5 Encounter for screening for malignant neoplasm of prostate (principal)
CPT/HCPCS: 84153

== ENCOUNTER 2017-09-19 11:50 | Emergency (ER) | payer MEDICARE, MEDICAID ==
[2017-09-19 12:49] LABS: BASO # 0.1 10^3/uL (0.0-0.2); BASO % 0.8 % (0.0-1.0); EOS # 0.2 10^3/uL (0.0-0.50); EOS % 3.2 % (0.0-3.0); HEMOGLOBIN 14.1 g/dl (13.5-17.5); IMMATURE GRANULOCYTE % 0.5 % (0-3.0); LYMPH # 2.9 10^3/uL (1.5-4.5); LYMPH % 43.7 % (24.0-44.0); MEAN CORPUSCULAR HEMOGLOBIN 31.5 pg (27.0-33.0); MEAN CORPUSCULAR HGB CONC 34.4 g/dl (32.0-36.5); MEAN CORPUSCULAR VOLUME 91.7 fl (80.0-96.0); MONO # 0.5 10^3/uL (0.0-0.8); NEUTROPHILS # 2.9 10^3/uL (1.8-7.7); NEUTROPHILS % 43.8 % (36.0-66.0); PLATELET COUNT, AUTOMATED 177 10^3/uL (150-450); RED BLOOD COUNT 4.47 10^6/uL (4.30-6.10); RED CELL DISTRIBUTION WIDTH 14.1 % (11.5-14.5); WHITE BLOOD COUNT 6.7 10^3/uL (4.0-10.0)
[2017-09-19 13:28] LABS: ANION GAP 6 MEQ/L (8-16); BLOOD UREA NITROGEN 10 MG/DL (7-18); CARBON DIOXIDE LEVEL 29 MEQ/L (21-32); CHLORIDE LEVEL 106 MEQ/L (98-107); CPK CREATINE PHOSPHOKINASE 221 U/L (39-308); CREATININE FOR GFR 0.75 MG/DL (0.70-1.30); FREE T4 0.95 NG/DL (0.76-1.46); GLOMERULAR FILTRATION RATE > 60.0 (>49); GLUCOSE, FASTING 212 MG/DL (70-100); POTASSIUM SERUM 3.8 MEQ/L (3.5-5.1); SODIUM LEVEL 141 MEQ/L (136-145); TROPONIN I < 0.02 NG/ML (< 0.10)
[2017-09-19] MEDS: MORPHINE 2 MG/ML 1ML SYRINGE (J2270) IV (13:32)
[2017-09-19 13:34] LABS: CK-MB VALUE MASS 4.7 NG/ML (<3.6); MB/CK RELATIVE INDEX 2.12 (< OR =4)
== END 2017-09-19 16:01 | disposition home or self-care (01) ==
LOC: M ED 11:50
DX: T14.8XXA Other injury of unspecified body region, initial encounter (principal); R55 Syncope and collapse; W05.0XXA Fall from non-moving wheelchair, initial encounter; Y92.098 Other place in other non-institutional residence as the place of occurrence of the external cause; F17.200 Nicotine dependence, unspecified, uncomplicated; Z79.899 Other long term (current) drug therapy; Z79.4 Long term (current) use of insulin; Z79.51 Long term (current) use of inhaled steroids; Z79.82 Long term (current) use of aspirin
CPT/HCPCS: J2270

== ENCOUNTER 2017-09-23 15:20 | Emergency (ER) | payer MEDICARE, MEDICAID ==
[2017-09-23 16:11] LABS: BASO # 0.1 10^3/uL (0.0-0.2); BASO % 0.8 % (0.0-1.0); EOS # 0.3 10^3/uL (0.0-0.50); EOS % 5.7 % (0.0-3.0); HEMATOCRIT 39.4 % (42.0-52.0); HEMOGLOBIN 13.7 g/dl (13.5-17.5); IMMATURE GRANULOCYTE % 0.2 % (0-3.0); LYMPH # 3.2 10^3/uL (1.5-4.5); LYMPH % 52.9 % (24.0-44.0); MEAN CORPUSCULAR HEMOGLOBIN 32.1 pg (27.0-33.0); MEAN CORPUSCULAR HGB CONC 34.8 g/dl (32.0-36.5); MEAN CORPUSCULAR VOLUME 92.3 fl (80.0-96.0); MONO # 0.5 10^3/uL (0.0-0.8); MONO % 8.4 % (0.0-5.0); NEUTROPHILS # 1.9 10^3/uL (1.8-7.7); PLATELET COUNT, AUTOMATED 177 10^3/uL (150-450); RED BLOOD COUNT 4.27 10^6/uL (4.30-6.10); RED CELL DISTRIBUTION WIDTH 14.2 % (11.5-14.5)
[2017-09-23 16:26] LABS: ANION GAP 6 MEQ/L (8-16); BLOOD UREA NITROGEN 10 MG/DL (7-18); CALCIUM LEVEL 8.9 MG/DL (8.8-10.2); CARBON DIOXIDE LEVEL 29 MEQ/L (21-32); CHLORIDE LEVEL 103 MEQ/L (98-107); CPK CREATINE PHOSPHOKINASE 311 U/L (39-308); CREATININE FOR GFR 0.69 MG/DL (0.70-1.30); FREE T4 0.83 NG/DL (0.76-1.46); GLOMERULAR FILTRATION RATE > 60.0 (>49); GLUCOSE, FASTING 241 MG/DL (70-100); MAGNESIUM LEVEL 1.9 MG/DL (1.8-2.4); POTASSIUM SERUM 3.9 MEQ/L (3.5-5.1); SODIUM LEVEL 138 MEQ/L (136-145); TROPONIN I < 0.02 NG/ML (< 0.10)
[2017-09-23 16:30] LABS: INR 1.07
[2017-09-23 16:31] LABS: CK-MB VALUE MASS 4.1 NG/ML (<3.6); MB/CK RELATIVE INDEX 1.31 (< OR =4); PARTIAL THROMBOPLASTIN TIME 33.1 SECONDS (26.8-37.9); THYROID STIMULATING HORMONE 0.716 uIU/ML (0.358-3.740)
[2017-09-23 21:03] LABS: DIGOXIN LEVEL 0.4 NG/ML (0.5-2.0)
[2017-09-23] MEDS: oxyCODONE 5MG TAB PO (21:30)
== END 2017-09-23 23:09 | disposition home or self-care (01) ==
LOC: M ED 15:20
DX: G40.909 Epilepsy, unspecified, not intractable, without status epilepticus (principal); I51.9 Heart disease, unspecified; F17.210 Nicotine dependence, cigarettes, uncomplicated; Z79.899 Other long term (current) drug therapy; Z79.4 Long term (current) use of insulin; Z79.82 Long term (current) use of aspirin; Z88.8 Allergy status to other drugs, medicaments and biological substances; Z88.0 Allergy status to penicillin; Z88.6 Allergy status to analgesic agent
CPT/HCPCS: 71046

== ENCOUNTER 2017-10-12 09:46 | Emergency (ER) | payer MEDICARE, MEDICAID ==
[2017-10-12] MEDS: TETRACAINE 0.5% OPHTH SOLN 4ML OS (10:26)
== END 2017-10-12 11:26 | disposition home or self-care (01) ==
LOC: M ED 09:46
DX: H57.12 Ocular pain, left eye (principal); H54.7 Unspecified visual loss; I11.0 Hypertensive heart disease with heart failure; R51 Headache; Z87.828 Personal history of other (healed) physical injury and trauma; Z86.61 Personal history of infections of the central nervous system; R56.9 Unspecified convulsions; I25.10 Atherosclerotic heart disease of native coronary artery without angina pectoris; I50.9 Heart failure, unspecified; E78.00 Pure hypercholesterolemia, unspecified; I25.2 Old myocardial infarction; Z86.718 Personal history of other venous thrombosis and embolism; J44.9 Chronic obstructive pulmonary disease, unspecified; G47.30 Sleep apnea, unspecified; K21.9 Gastro-esophageal reflux disease without esophagitis; Z87.442 Personal history of urinary calculi; E11.9 Type 2 diabetes mellitus without complications; F41.9 Anxiety disorder, unspecified; F32.9 Major depressive disorder, single episode, unspecified; F17.200 Nicotine dependence, unspecified, uncomplicated; Z88.6 Allergy status to analgesic agent; Z88.8 Allergy status to other drugs, medicaments and biological substances; Z88.0 Allergy status to penicillin; J30.1 Allergic rhinitis due to pollen; Z79.899 Other long term (current) drug therapy; Z79.01 Long term (current) use of anticoagulants; Z79.4 Long term (current) use of insulin; Z79.51 Long term (current) use of inhaled steroids; Z79.82 Long term (current) use of aspirin
CPT/HCPCS: 99283

== ENCOUNTER → 2017-10-12 | Outpatient (CLI) | payer MEDICARE, MEDICAID | LOC: M RAD 09:29 | DX: S05.12XA Contusion of eyeball and orbital tissues, left eye, initial encounter (principal); J32.2 Chronic ethmoidal sinusitis; J01.30 Acute sphenoidal sinusitis, unspecified; J34.1 Cyst and mucocele of nose and nasal sinus; X58.XXXA Exposure to other specified factors, initial encounter; Y92.9 Unspecified place or not applicable | CPT/HCPCS: 70480 ==

== ENCOUNTER 2017-11-01 19:52 | Emergency (ER) | payer MEDICARE, MEDICAID ==
[2017-11-01 20:29] LABS: BEDSIDE GLUCOSE 395 MG/DL (80-115)
[2017-11-01] MEDS: ACETAMINOPHEN 325 MG TAB PO (20:46)
[2017-11-01 20:58] LABS: BASO # 0.1 10^3/uL (0.0-0.2); BASO % 0.8 % (0.0-1.0); EOS # 0.3 10^3/uL (0.0-0.50); EOS % 4.7 % (0.0-3.0); HEMATOCRIT 37.6 % (42.0-52.0); HEMOGLOBIN 13.2 g/dl (13.5-17.5); IMMATURE GRANULOCYTE % 0.2 % (0-3.0); LYMPH # 3.2 10^3/uL (1.5-4.5); LYMPH % 52.9 % (24.0-44.0); MEAN CORPUSCULAR HEMOGLOBIN 32.1 pg (27.0-33.0); MEAN CORPUSCULAR HGB CONC 35.1 g/dl (32.0-36.5); MEAN CORPUSCULAR VOLUME 91.5 fl (80.0-96.0); MONO # 0.4 10^3/uL (0.0-0.8); MONO % 7.2 % (0.0-5.0); NEUTROPHILS # 2.1 10^3/uL (1.8-7.7); NEUTROPHILS % 34.2 % (36.0-66.0); PLATELET COUNT, AUTOMATED 201 10^3/uL (150-450); RED BLOOD COUNT 4.11 10^6/uL (4.30-6.10); RED CELL DISTRIBUTION WIDTH 14.2 % (11.5-14.5); WHITE BLOOD COUNT 6.1 10^3/uL (4.0-10.0)
[2017-11-01] MEDS: HumuLIN R (REGULAR) INSULIN (NovoLIN R) **100U/ML** PER UNIT SC (21:10)
[2017-11-01 21:17] LABS: ANION GAP 8 MEQ/L (8-16); BLOOD UREA NITROGEN 13 MG/DL (7-18); CALCIUM LEVEL 8.5 MG/DL (8.8-10.2); CARBON DIOXIDE LEVEL 25 MEQ/L (21-32); CHLORIDE LEVEL 102 MEQ/L (98-107); CPK CREATINE PHOSPHOKINASE 233 U/L (39-308); CREATININE FOR GFR 0.92 MG/DL (0.70-1.30); GLOMERULAR FILTRATION RATE > 60.0 (>49); GLUCOSE, FASTING 370 MG/DL (70-100); POTASSIUM SERUM 3.9 MEQ/L (3.5-5.1); SODIUM LEVEL 135 MEQ/L (136-145); TROPONIN I < 0.02 NG/ML (< 0.10)
[2017-11-01 21:23] LABS: CK-MB VALUE MASS 4.6 NG/ML (<3.6); MB/CK RELATIVE INDEX 1.97 (< OR =4)
[2017-11-01 21:47] LABS: PROTHROMBIN TIME 14.4 SECONDS (12.1-14.4)
[2017-11-01 22:15] LABS: BEDSIDE GLUCOSE 301 MG/DL (80-115)
== END 2017-11-01 22:49 | disposition home or self-care (01) ==
LOC: M ED 19:52
DX: R55 Syncope and collapse (principal); I44.0 Atrioventricular block, first degree; I51.9 Heart disease, unspecified; I10 Essential (primary) hypertension; J30.9 Allergic rhinitis, unspecified; Z72.0 Tobacco use; Z79.82 Long term (current) use of aspirin; Z79.4 Long term (current) use of insulin; Z79.899 Other long term (current) drug therapy; Z88.6 Allergy status to analgesic agent; Z88.8 Allergy status to other drugs, medicaments and biological substances; Z88.0 Allergy status to penicillin
CPT/HCPCS: 93005

== ENCOUNTER 2017-11-06 16:44 | Emergency (ER) | payer MEDICARE, MEDICAID ==
[2017-11-06] MEDS: TETRACAINE 0.5% OPHTH SOLN 4ML OS (18:15)
[2017-11-06] MEDS: ACETAMINOPH W/CODEINE #3 TAB UD PO (19:10)
== END 2017-11-06 17:30 | disposition home or self-care (01) ==
LOC: M ED 16:44
DX: H57.12 Ocular pain, left eye (principal); H54.7 Unspecified visual loss; R51 Headache; R56.9 Unspecified convulsions; I11.0 Hypertensive heart disease with heart failure; I50.9 Heart failure, unspecified; E78.00 Pure hypercholesterolemia, unspecified; I25.2 Old myocardial infarction; Z86.19 Personal history of other infectious and parasitic diseases; J44.9 Chronic obstructive pulmonary disease, unspecified; J45.909 Unspecified asthma, uncomplicated; G47.33 Obstructive sleep apnea (adult) (pediatric); K21.9 Gastro-esophageal reflux disease without esophagitis; M54.9 Dorsalgia, unspecified; E11.9 Type 2 diabetes mellitus without complications; F41.9 Anxiety disorder, unspecified; F32.9 Major depressive disorder, single episode, unspecified; F17.200 Nicotine dependence, unspecified, uncomplicated; Z79.899 Other long term (current) drug therapy; Z79.4 Long term (current) use of insulin; Z79.51 Long term (current) use of inhaled steroids; Z79.82 Long term (current) use of aspirin
CPT/HCPCS: 99284

== ENCOUNTER 2017-11-16 18:16 | Emergency (ER) | payer MEDICARE, MEDICAID ==
[2017-11-16] MEDS: CYCLOBENZAPRINE 5MG TABLET PO (19:19)
== END 2017-11-16 19:22 | disposition home or self-care (01) ==
LOC: M ED 18:16
DX: S29.012A Strain of muscle and tendon of back wall of thorax, initial encounter (principal); X58.XXXA Exposure to other specified factors, initial encounter; Y92.9 Unspecified place or not applicable; Y93.9 Activity, unspecified; Y99.9 Unspecified external cause status; J30.2 Other seasonal allergic rhinitis; Z72.0 Tobacco use; Z79.82 Long term (current) use of aspirin; Z79.4 Long term (current) use of insulin; Z79.899 Other long term (current) drug therapy; Z88.6 Allergy status to analgesic agent; Z88.8 Allergy status to other drugs, medicaments and biological substances; Z88.0 Allergy status to penicillin; Z88.1 Allergy status to other antibiotic agents
CPT/HCPCS: 99282

== ENCOUNTER 2017-11-27 19:13 | Emergency (ER) | payer MEDICARE, MEDICAID ==
[2017-11-27] MEDS: GI COCKTAIL 50ML BTL(HYOSCYAMINE/MAALOX/LIDOCAINE VISCOUS)(1:3:1) PO (21:15)
[2017-11-27] MEDS: ALBUTEROL SULFATE 2.5 MG/0.5 ML INH NEB SOLN NEB (21:55)
[2017-11-27] MEDS: DOXYCYCLINE HYCLATE 100 MG TAB PO (22:30)
== END 2017-11-27 22:46 | disposition home or self-care (01) ==
LOC: M ED 19:13
DX: J44.1 Chronic obstructive pulmonary disease with (acute) exacerbation (principal); J20.9 Acute bronchitis, unspecified; K21.9 Gastro-esophageal reflux disease without esophagitis; I50.9 Heart failure, unspecified; I25.2 Old myocardial infarction; I10 Essential (primary) hypertension; E11.9 Type 2 diabetes mellitus without complications; E78.5 Hyperlipidemia, unspecified; J44.9 Chronic obstructive pulmonary disease, unspecified; Z86.73 Personal history of transient ischemic attack (TIA), and cerebral infarction without residual deficits; R56.9 Unspecified convulsions; R51 Headache; G47.30 Sleep apnea, unspecified; F41.9 Anxiety disorder, unspecified; F32.9 Major depressive disorder, single episode, unspecified; Z72.0 Tobacco use; F12.10 Cannabis abuse, uncomplicated; Z79.82 Long term (current) use of aspirin; Z79.4 Long term (current) use of insulin; Z79.899 Other long term (current) drug therapy; Z88.6 Allergy status to analgesic agent; Z88.8 Allergy status to other drugs, medicaments and biological substances; Z88.0 Allergy status to penicillin; Z88.1 Allergy status to other antibiotic agents
CPT/HCPCS: 71046

== ENCOUNTER 2017-12-04 18:33 | Emergency (ER) | payer MEDICARE, MEDICAID ==
[2017-12-04 18:11] LABS: HEMATOCRIT 43.9 % (42.0-52.0); HEMOGLOBIN 15.4 g/dl (13.5-17.5); MEAN CORPUSCULAR HEMOGLOBIN 32.1 pg (27.0-33.0); MEAN CORPUSCULAR HGB CONC 35.1 g/dl (32.0-36.5); MEAN CORPUSCULAR VOLUME 91.5 fl (80.0-96.0); PLATELET COUNT, AUTOMATED 228 10^3/uL (150-450); RED CELL DISTRIBUTION WIDTH 14.5 % (11.5-14.5); WHITE BLOOD COUNT 9.1 10^3/uL (4.0-10.0)
[2017-12-04 18:36] LABS: ANION GAP 9 MEQ/L (8-16); BLOOD UREA NITROGEN 18 MG/DL (7-18); CALCIUM LEVEL 9.2 MG/DL (8.8-10.2); CARBON DIOXIDE LEVEL 26 MEQ/L (21-32); CHLORIDE LEVEL 99 MEQ/L (98-107); CREATININE FOR GFR 1.16 MG/DL (0.70-1.30); DIGOXIN LEVEL 0.5 NG/ML (0.5-2.0); GLOMERULAR FILTRATION RATE > 60.0 (>49); GLUCOSE, FASTING 375 MG/DL (70-100); POTASSIUM SERUM 4.3 MEQ/L (3.5-5.1); SODIUM LEVEL 134 MEQ/L (136-145)
[2017-12-04] MEDS: GI COCKTAIL 50ML BTL(HYOSCYAMINE/MAALOX/LIDOCAINE VISCOUS)(1:3:1) PO (18:58)
== END 2017-12-04 20:01 | disposition home or self-care (01) ==
LOC: M ED 18:33
DX: K52.9 Noninfective gastroenteritis and colitis, unspecified (principal); J44.9 Chronic obstructive pulmonary disease, unspecified; E11.9 Type 2 diabetes mellitus without complications; I10 Essential (primary) hypertension; I48.91 Unspecified atrial fibrillation; I25.10 Atherosclerotic heart disease of native coronary artery without angina pectoris; G40.909 Epilepsy, unspecified, not intractable, without status epilepticus; Z79.899 Other long term (current) drug therapy; Z79.01 Long term (current) use of anticoagulants; Z79.4 Long term (current) use of insulin; Z88.0 Allergy status to penicillin; Z88.8 Allergy status to other drugs, medicaments and biological substances; J30.1 Allergic rhinitis due to pollen
CPT/HCPCS: 80162

== ENCOUNTER 2017-12-07 09:17 | Emergency (ER) | payer MEDICARE, MEDICAID | END 2017-12-07 10:38 | disposition home or self-care (01) | LOC: M ED 09:17 | DX: S00.83XA Contusion of other part of head, initial encounter (principal); S60.042A Contusion of left ring finger without damage to nail, initial encounter; W01.198A Fall on same level from slipping, tripping and stumbling with subsequent striking against other object, initial encounter; Y92.090 Kitchen in other non-institutional residence as the place of occurrence of the external cause; E11.9 Type 2 diabetes mellitus without complications; I48.91 Unspecified atrial fibrillation; I25.10 Atherosclerotic heart disease of native coronary artery without angina pectoris; I11.9 Hypertensive heart disease without heart failure; G40.909 Epilepsy, unspecified, not intractable, without status epilepticus; M54.9 Dorsalgia, unspecified; F17.200 Nicotine dependence, unspecified, uncomplicated; Z88.6 Allergy status to analgesic agent; Z88.8 Allergy status to other drugs, medicaments and biological substances; Z88.0 Allergy status to penicillin; J30.1 Allergic rhinitis due to pollen; Z79.899 Other long term (current) drug therapy; Z79.01 Long term (current) use of anticoagulants; Z79.2 Long term (current) use of antibiotics; Z79.4 Long term (current) use of insulin; Z79.51 Long term (current) use of inhaled steroids; Z79.82 Long term (current) use of aspirin | CPT/HCPCS: 73140 ==

== ENCOUNTER 2017-12-15 18:44 | Emergency (ER) | payer MEDICARE, MEDICAID ==
[2017-12-15] MEDS: ACETAMINOPH W/CODEINE #3 TAB UD PO (21:29)
== END 2017-12-15 21:41 | disposition home or self-care (01) ==
LOC: M ED 18:44
DX: S69.92XA Unspecified injury of left wrist, hand and finger(s), initial encounter (principal); W06.XXXA Fall from bed, initial encounter; Y92.019 Unspecified place in single-family (private) house as the place of occurrence of the external cause; E11.9 Type 2 diabetes mellitus without complications; I50.9 Heart failure, unspecified; F32.9 Major depressive disorder, single episode, unspecified
CPT/HCPCS: 73110

== ENCOUNTER 2017-12-23 20:42 | Emergency (ER) | payer MEDICARE, MEDICAID ==
[2017-12-23 21:09] LABS: BASO % 0.6 % (0.0-1.0); EOS # 0.2 10^3/uL (0.0-0.50); EOS % 2.9 % (0.0-3.0); HEMATOCRIT 38.3 % (42.0-52.0); HEMOGLOBIN 13.4 g/dl (13.5-17.5); IMMATURE GRANULOCYTE % 0.2 % (0-3.0); LYMPH # 3.2 10^3/uL (1.5-4.5); LYMPH % 47.7 % (24.0-44.0); MEAN CORPUSCULAR HEMOGLOBIN 32.1 pg (27.0-33.0); MEAN CORPUSCULAR VOLUME 91.8 fl (80.0-96.0); MONO # 0.5 10^3/uL (0.0-0.8); MONO % 8.1 % (0.0-5.0); NEUTROPHILS # 2.7 10^3/uL (1.8-7.7); NEUTROPHILS % 40.5 % (36.0-66.0); PLATELET COUNT, AUTOMATED 192 10^3/uL (150-450); RED BLOOD COUNT 4.17 10^6/uL (4.30-6.10); RED CELL DISTRIBUTION WIDTH 14.6 % (11.5-14.5); WHITE BLOOD COUNT 6.6 10^3/uL (4.0-10.0)
[2017-12-23] MEDS: SUCRALFATE 1 GM TAB PO (22:23)
[2017-12-23] MEDS: GI COCKTAIL 50ML BTL(HYOSCYAMINE/MAALOX/LIDOCAINE VISCOUS)(1:3:1) PO (22:23)
[2017-12-23 22:40] LABS: ANION GAP 7 MEQ/L (8-16); BLOOD UREA NITROGEN 10 MG/DL (7-18); CARBON DIOXIDE LEVEL 26 MEQ/L (21-32); CHLORIDE LEVEL 106 MEQ/L (98-107); CPK CREATINE PHOSPHOKINASE 145 U/L (39-308); CREATININE FOR GFR 0.74 MG/DL (0.70-1.30); GLOMERULAR FILTRATION RATE > 60.0 (>49); GLUCOSE, FASTING 269 MG/DL (70-100); MB/CK RELATIVE INDEX 2.28 (< OR =4); POTASSIUM SERUM 3.7 MEQ/L (3.5-5.1); SODIUM LEVEL 139 MEQ/L (136-145); TROPONIN I < 0.02 NG/ML (< 0.10)
[2017-12-24] MEDS: MORPHINE 2 MG/ML 1ML SYRINGE (J2270) IV (00:31)
== END 2017-12-24 00:44 | disposition home or self-care (01) ==
LOC: M ED 12-24 00:44
DX: R07.89 Other chest pain (principal); R06.02 Shortness of breath; I10 Essential (primary) hypertension; E78.5 Hyperlipidemia, unspecified; I48.91 Unspecified atrial fibrillation; E11.9 Type 2 diabetes mellitus without complications; K21.9 Gastro-esophageal reflux disease without esophagitis; J45.909 Unspecified asthma, uncomplicated; J44.9 Chronic obstructive pulmonary disease, unspecified; M54.9 Dorsalgia, unspecified; R56.9 Unspecified convulsions; F17.210 Nicotine dependence, cigarettes, uncomplicated
CPT/HCPCS: J2270

== ENCOUNTER 2018-01-08 14:14 | Emergency (ER) | payer MEDICARE, MEDICAID ==
[2018-01-08] MEDS: LIDOCAINE 5% (LIDODERM) PATCH TD (16:25)
[2018-01-08] MEDS ORDERED: **NOTE PATIENT COMMENT** MISC XX (21:00)
== END 2018-01-08 17:07 | disposition home or self-care (01) ==
LOC: M ED 14:14
DX: S39.012A Strain of muscle, fascia and tendon of lower back, initial encounter (principal); M54.2 Cervicalgia; W19.XXXA Unspecified fall, initial encounter; Y92.098 Other place in other non-institutional residence as the place of occurrence of the external cause; Z76.5 Malingerer [conscious simulation]; G89.4 Chronic pain syndrome; G20 Parkinson's disease; R56.9 Unspecified convulsions; E11.9 Type 2 diabetes mellitus without complications; I11.9 Hypertensive heart disease without heart failure; I25.10 Atherosclerotic heart disease of native coronary artery without angina pectoris; I48.91 Unspecified atrial fibrillation; F17.200 Nicotine dependence, unspecified, uncomplicated; Z88.6 Allergy status to analgesic agent; Z88.8 Allergy status to other drugs, medicaments and biological substances; Z88.0 Allergy status to penicillin; J30.1 Allergic rhinitis due to pollen; Z79.899 Other long term (current) drug therapy; Z79.51 Long term (current) use of inhaled steroids; Z79.82 Long term (current) use of aspirin; Z79.01 Long term (current) use of anticoagulants
CPT/HCPCS: 99284

== ENCOUNTER 2018-02-04 15:48 | Emergency (ER) | payer MEDICARE, MEDICAID ==
[2018-02-04 17:19] LABS: INFLUENZA A AMPLIFICATION NEGATIVE (NEGATIVE); INFLUENZA B AMPLIFICATION NEGATIVE (NEGATIVE)
[2018-02-04] MEDS: IPRATROPIUM 0.5MG/ALBUTEROL 2.5MG INH SOL UD 3ML (DUONEB)(J7620) NEB (17:43)
[2018-02-04] MEDS: ACETAMINOPH W/CODEINE #3 TAB UD PO (17:43)
[2018-02-04 17:50] LABS: BASO # 0.1 10^3/uL (0.0-0.2); BASO % 0.8 % (0.0-1.0); EOS # 0.3 10^3/uL (0.0-0.50); EOS % 3.8 % (0.0-3.0); HEMATOCRIT 40.9 % (42.0-52.0); HEMOGLOBIN 14.5 g/dl (13.5-17.5); IMMATURE GRANULOCYTE % 0.3 % (0-3.0); LYMPH # 3.5 10^3/uL (1.5-4.5); LYMPH % 46.2 % (24.0-44.0); MEAN CORPUSCULAR HGB CONC 35.5 g/dl (32.0-36.5); MONO # 0.6 10^3/uL (0.0-0.8); MONO % 8.2 % (0.0-5.0); NEUTROPHILS # 3.1 10^3/uL (1.8-7.7); NEUTROPHILS % 40.7 % (36.0-66.0); PLATELET COUNT, AUTOMATED 214 10^3/uL (150-450); RED CELL DISTRIBUTION WIDTH 14.5 % (11.5-14.5); WHITE BLOOD COUNT 7.6 10^3/uL (4.0-10.0)
== END 2018-02-04 18:50 | disposition home or self-care (01) ==
LOC: M ED 15:48
DX: J44.0 Chronic obstructive pulmonary disease with (acute) lower respiratory infection (principal); J01.90 Acute sinusitis, unspecified; G43.909 Migraine, unspecified, not intractable, without status migrainosus; I50.9 Heart failure, unspecified; I25.2 Old myocardial infarction; I11.0 Hypertensive heart disease with heart failure; J45.909 Unspecified asthma, uncomplicated; I69.352 Hemiplegia and hemiparesis following cerebral infarction affecting left dominant side; F17.200 Nicotine dependence, unspecified, uncomplicated; Z86.69 Personal history of other diseases of the nervous system and sense organs; Z90.49 Acquired absence of other specified parts of digestive tract; Z88.8 Allergy status to other drugs, medicaments and biological substances; Z91.048 Other nonmedicinal substance allergy status; Z88.0 Allergy status to penicillin; Z79.899 Other long term (current) drug therapy; Z79.82 Long term (current) use of aspirin
CPT/HCPCS: 71046

== ENCOUNTER 2018-02-28 11:03 | Emergency (ER) | payer MEDICARE, MEDICAID ==
[2018-02-28 11:57] LABS: BASO % 0.8 % (0.0-1.0); EOS % 0.8 % (0.0-3.0); HEMATOCRIT 44.4 % (42.0-52.0); HEMOGLOBIN 15.7 g/dl (13.5-17.5); IMMATURE GRANULOCYTE % 0.3 % (0-3.0); LYMPH # 1.3 10^3/uL (1.5-4.5); LYMPH % 34.7 % (24.0-44.0); MEAN CORPUSCULAR HEMOGLOBIN 33.1 pg (27.0-33.0); MEAN CORPUSCULAR HGB CONC 35.4 g/dl (32.0-36.5); MEAN CORPUSCULAR VOLUME 93.5 fl (80.0-96.0); MONO # 0.3 10^3/uL (0.0-0.8); MONO % 8.2 % (0.0-5.0); NEUTROPHILS % 55.2 % (36.0-66.0); PLATELET COUNT, AUTOMATED 210 10^3/uL (150-450); RED BLOOD COUNT 4.75 10^6/uL (4.30-6.10); RED CELL DISTRIBUTION WIDTH 13.6 % (11.5-14.5); WHITE BLOOD COUNT 3.7 10^3/uL (4.0-10.0)
[2018-02-28 12:10] LABS: ACETAMINOPHEN LEVEL < 2.0 UG/ML (10.0-30.0); ALBUMIN 3.8 GM/DL (3.2-5.2); ALBUMIN/GLOBULIN RATIO 1.03 (1.00-1.93); ALKALINE PHOSPHATASE 149 U/L (45-117); ALT/SGPT 50 U/L (12-78); ANION GAP 9 MEQ/L (8-16); AST/SGOT 50 U/L (7-37); BILIRUBIN,DIRECT 0.3 MG/DL (0.0-0.2); BLOOD UREA NITROGEN 13 MG/DL (7-18); CALCIUM LEVEL 8.5 MG/DL (8.8-10.2); CARBON DIOXIDE LEVEL 27 MEQ/L (21-32); CHLORIDE LEVEL 102 MEQ/L (98-107); CPK CREATINE PHOSPHOKINASE 123 U/L (39-308); CREATININE FOR GFR 0.85 MG/DL (0.70-1.30); ETHYL ALCOHOL (ETHANOL) < 0.003 % (0.000-0.010); GLOMERULAR FILTRATION RATE > 60.0 (>49); GLUCOSE, FASTING 145 MG/DL (70-100); MB/CK RELATIVE INDEX 1.22 (< OR =4); POTASSIUM SERUM 3.1 MEQ/L (3.5-5.1); SALICYLATE LEVEL 2.4 MG/DL (5.0-30.0); SODIUM LEVEL 138 MEQ/L (136-145); THYROID STIMULATING HORMONE 0.547 uIU/ML (0.358-3.740); TOTAL PROTEIN 7.5 GM/DL (6.4-8.2); TROPONIN I < 0.02 NG/ML (< 0.10)
[2018-02-28] MEDS: POTASSIUM CHLORIDE 10 MEQ SR TABLET PO (13:09)
[2018-02-28 14:30] LABS: KETONE, URINE AUTO RFX NEGATIVE (NEGATIVE); LEUKOCYTE ESTERASE UR AUTO RFX NEGATIVE (NEGATIVE); MUCUS, URINE RFX SMALL (NEGATIVE); NITRITE, URINE AUTO RFX NEGATIVE (NEGATIVE); RBC, URINE AUTO RFX 2 /HPF (0-3); SQUAM EPITHELIAL CELL UR AURFX 0 /HPF (0-6); WBC, URINE AUTO RFX 2 /HPF (0-3)
[2018-02-28 14:58] LABS: AMPHETAMINES LEVEL URINE NEGATIVE (NEGATIVE); BARBITURATES URINE NEGATIVE (NEGATIVE); BENZODIAZEPINES URINE NEGATIVE (NEGATIVE); CANNABINOIDS URINE POSITIVE (NEGATIVE); COCAINE METABOLITE URINE NEGATIVE (NEGATIVE); METHADONE URINE NEGATIVE (NEGATIVE); OPIATES URINE NEGATIVE (NEGATIVE); PHENCYCLIDINE URINE NEGATIVE (NEGATIVE)
== END 2018-02-28 18:22 | disposition home or self-care (01) ==
LOC: M ED 11:03
DX: E87.6 Hypokalemia (principal); E11.9 Type 2 diabetes mellitus without complications; I10 Essential (primary) hypertension; J44.9 Chronic obstructive pulmonary disease, unspecified; G40.909 Epilepsy, unspecified, not intractable, without status epilepticus; G20 Parkinson's disease; I48.91 Unspecified atrial fibrillation; Z79.899 Other long term (current) drug therapy; Z79.82 Long term (current) use of aspirin; Z79.01 Long term (current) use of anticoagulants; Z79.51 Long term (current) use of inhaled steroids; Z88.0 Allergy status to penicillin; Z88.8 Allergy status to other drugs, medicaments and biological substances; J30.1 Allergic rhinitis due to pollen; F17.210 Nicotine dependence, cigarettes, uncomplicated
CPT/HCPCS: 71046

== ENCOUNTER 2018-03-10 19:22 | Emergency (ER) | payer MEDICARE, MEDICAID ==
[2018-03-10] MEDS: traMADol 50 MG TAB PO (20:00)
== END 2018-03-10 20:09 | disposition home or self-care (01) ==
LOC: M ED 19:22
DX: M54.9 Dorsalgia, unspecified (principal); Z79.899 Other long term (current) drug therapy; Z88.0 Allergy status to penicillin; Z88.8 Allergy status to other drugs, medicaments and biological substances; J30.89 Other allergic rhinitis
CPT/HCPCS: 99284

== ENCOUNTER → 2018-03-13 | Outpatient (CLI) | payer MEDICARE, MEDICAID ==
[2018-03-13 12:24] LABS: HEMATOCRIT 38.6 % (42.0-52.0); HEMOGLOBIN 13.6 g/dl (13.5-17.5); MEAN CORPUSCULAR HEMOGLOBIN 32.8 pg (27.0-33.0); MEAN CORPUSCULAR HGB CONC 35.2 g/dl (32.0-36.5); PLATELET COUNT, AUTOMATED 239 10^3/uL (150-450); RED BLOOD COUNT 4.15 10^6/uL (4.30-6.10); RED CELL DISTRIBUTION WIDTH 14.4 % (11.5-14.5)
[2018-03-13 12:51] LABS: ESTIMATED AVERAGE GLUCOSE 206 MG/DL (60-110); HEMOGLOBIN A1c 8.8 %
[2018-03-13 13:06] LABS: ALBUMIN 3.7 GM/DL (3.2-5.2); ALBUMIN/GLOBULIN RATIO 1.12 (1.00-1.93); ALKALINE PHOSPHATASE 87 U/L (45-117); ALT/SGPT 27 U/L (12-78); ANION GAP 9 MEQ/L (8-16); AST/SGOT 17 U/L (7-37); BILIRUBIN,TOTAL 0.5 MG/DL (0.2-1.0); BLOOD UREA NITROGEN 7 MG/DL (7-18); CALCIUM LEVEL 8.3 MG/DL (8.8-10.2); CARBON DIOXIDE LEVEL 24 MEQ/L (21-32); CHLORIDE LEVEL 108 MEQ/L (98-107); CHOLESTEROL LEVEL 121 MG/DL (<200); CHOLESTEROL RISK RATIO 2.688 (<5); CREATININE FOR GFR 0.71 MG/DL (0.70-1.30); GLOMERULAR FILTRATION RATE > 60.0 (>49); GLUCOSE, FASTING 140 MG/DL (70-100); HDL CHOLESTEROL 45 MG/DL (>40); LDL CHOLESTEROL 59 MG/DL (<100); NON-HDL-C 76 MG/DL; POTASSIUM SERUM 3.4 MEQ/L (3.5-5.1); PROSTATIC SPECIFIC AG MONITOR 0.7 NG/ML (< 4.0); SODIUM LEVEL 141 MEQ/L (136-145); THYROID STIMULATING HORMONE 0.503 uIU/ML (0.358-3.740); TRIGLYCERIDES LEVEL 87 MG/DL (<150)
== END ==
LOC: M LAB 11:35
DX: R53.83 Other fatigue (principal); E11.9 Type 2 diabetes mellitus without complications; I10 Essential (primary) hypertension
CPT/HCPCS: 71046

== ENCOUNTER 2018-03-31 01:21 | Emergency (ER) | payer MEDICARE, MEDICAID ==
[2018-03-31] MEDS: LORazepam 2 MG/ML VIAL (J2060) IV (02:57)
== END 2018-03-31 03:18 | disposition home or self-care (01) ==
LOC: M ED 03:18
DX: F41.1 Generalized anxiety disorder (principal); J44.9 Chronic obstructive pulmonary disease, unspecified; I25.10 Atherosclerotic heart disease of native coronary artery without angina pectoris; Z79.899 Other long term (current) drug therapy; Z79.82 Long term (current) use of aspirin; Z79.01 Long term (current) use of anticoagulants; Z88.0 Allergy status to penicillin; Z88.8 Allergy status to other drugs, medicaments and biological substances; F17.210 Nicotine dependence, cigarettes, uncomplicated
CPT/HCPCS: J2060

== ENCOUNTER 2018-05-03 14:35 | Emergency (ER) | payer MEDICARE, MEDICAID ==
[~2018-05-03] VITALS: Ht 172.7 cm; Wt 72.7 kg
[~2018-05-03 14:35] MED LIST changes: +ACET30TAB PO; +BASA100I SC; +CYCL5TAB PO; -DILT240C PO; +DILT240C47 PO; +DOXY-350 PO; +DOXY100C37 PO; +FLON1SPR; +FLUO10CA8 PO; +GABA-1171 PO; -GABA-279 PO; -GABA-282 PO; +GABA-843 PO; +HYDR-3713 PO; +INCR1INH; +LIDO5DIS41 TOP; +LORA-243 PO; -LORA10TA2 PO; +LORA10TA3 PO; -NEOM1SOL15 AU; +NEOM1SOL8 AU; +OXYC15TA76 PO; +OXYC1TAB PO; -OXYC2.5T PO; -RAMI1.25 PO; +RAMI1CAP21 PO; +ROZE8TAB16 PO; +TESS100C PO; -TRAZ-136 PO; +TRAZ-163 PO; +VENTAER
[2018-05-03] MEDS ORDERED: hydrOXYzine 50 MG TAB PO STA (15:52)
[2018-05-03] MEDS ORDERED: NS 1,000 ML IV ONE (16:00)
[2018-05-03 16:18] LABS: BASO % 0.5 % (0.0-1.0); EOS # 0.1 10^3/uL (0.0-0.50); EOS % 1.7 % (0.0-3.0); HEMATOCRIT 36.9 % (42.0-52.0); HEMOGLOBIN 13.2 g/dl (13.5-17.5); LYMPH # 1.4 10^3/uL (1.5-4.5); LYMPH % 17.7 % (24.0-44.0); MEAN CORPUSCULAR HEMOGLOBIN 33.9 pg (27.0-33.0); MEAN CORPUSCULAR HGB CONC 35.8 g/dl (32.0-36.5); MEAN CORPUSCULAR VOLUME 94.9 fl (80.0-96.0); MONO # 0.3 10^3/uL (0.0-0.8); MONO % 4.2 % (0.0-5.0); NEUTROPHILS # 5.8 10^3/uL (1.8-7.7); NEUTROPHILS % 75.6 % (36.0-66.0); PLATELET COUNT, AUTOMATED 176 10^3/uL (150-450); RED BLOOD COUNT 3.89 10^6/uL (4.30-6.10); WHITE BLOOD COUNT 7.7 10^3/uL (4.0-10.0)
[2018-05-03 16:31] LABS: INR 1.17; PARTIAL THROMBOPLASTIN TIME 32.1 SECONDS (25.4-37.6); PROTHROMBIN TIME 15.1 SECONDS (12.1-14.4)
[2018-05-03 16:57] LABS: BLOOD UREA NITROGEN 19 MG/DL (7-18); CALCIUM LEVEL 7.9 MG/DL (8.8-10.2); CARBON DIOXIDE LEVEL 21 MEQ/L (21-32); CHLORIDE LEVEL 110 MEQ/L (98-107); CREATININE FOR GFR 0.98 MG/DL (0.70-1.30); DIGOXIN LEVEL 0.4 NG/ML (0.5-2.0); GLOMERULAR FILTRATION RATE > 60.0 (>49); GLUCOSE, FASTING 176 MG/DL (70-100); SODIUM LEVEL 140 MEQ/L (136-145)
[2018-05-03] MEDS ORDERED: MAG SULF 1GM/100ML (MAG RUN) 1 GM in APPROPRIATE DILUENT 1 EA IV ONE ×2 (18:15→20:00)
[2018-05-03] MEDS ORDERED: ACETAMINOPHEN TAB 650MG DOSE (2X325MG) PO ONE (18:15)
[2018-05-03] MEDS ORDERED: IPRATROPIUM 0.5MG/ALBUTEROL 2.5MG INH SOL UD 3ML (DUONEB)(J7620) NEB ONE (20:15)
[2018-05-03 21:09] VITALS: BP 130/66
--- NOTE | 2018-05-04 06:50 | REP ---
CT BRAIN WITHOUT CONTRAST: 05/03/2018. Comparison: 02/28/2018. This is the 12th CT brain since 06/09/2015. Clinical history: Pain, status post a fall. Findings: Ventricles are midline, symmetric and mildly dilated. They are proportionate to the diffuse cerebral atrophy. Third and fourth ventricles are also unchanged. There is no intracranial hemorrhage, vascular territory infarct, mass or mass effect. Poole white junction differentiation is maintained. Brainstem and cerebellum grossly intact. Basal cisterns are intact. Mastoids are clear. Bilateral ethmoid sinuses show mucosal thickening. There is minor mucosal thickening on the left and more in the right maxillary sinus. Ethmoid sinuses and the visualized frontal sinuses are clear. Skull base and calvarium without fracture or focal lesion. Septal deviation minimally towards the left. Impression: 1. Some mild ventriculomegaly with proportionate to sulcal prominence but no evidence of acute infarct, intracranial hemorrhage, mass, mass effect or extra-axial fluid collection. 2. Chronic sinus disease and bilateral ethmoid and maxillary sinuses as before. 3. No fracture skull base or calvarium. Stable examination. Electronically Signed by William Villegas MD 05/04/2018 09:47 A
--- NOTE | 2018-05-04 06:54 | REP ---
CT CERVICAL SPINE WITHOUT CONTRAST: 05/03/2018. Comparison: 09/23/2017. Clinical history: Neck pain, status post fall. Findings: Standard trauma CT protocol followed. Coronal and sagittal reconstructions used. Cervical vertebral bodies show no evidence of compression deformity. There is a few millimeters of retrolisthesis of C3 on C4. Posterior osteophytes at C2-3 and C3-4. Anterior osteophytes at C3-4 through C6-7. Disc space narrowing at C6-7 and C3-4 less at the other levels. No compression deformity. The ring of C1 is intact. The dens shows normal relationship to the anterior arch and lateral masses on all images planes. Craniocervical junction aligns normally. Cervical thoracic junction aligns normally. There is facet arthropathy in the cervical spine bilaterally. Foramina are marginally at C4-5 on the right at C5-6 and are adequate at all other levels. There is central canal stenosis due to combined factors at C3-4 and no other levels show stenosis. Spinous processes, lamina, pedicles, facets and transverse processes without acute fractures transverse foramina intact. Coronal reconstructions show no torticollis. The visualized lung apices, upper thoracic vertebral levels and ribs were also unremarkable. Impression: 1. Diffuse cervical spondylosis with some facet arthritis at levels described and uncinate spurring. There is central canal stenosis greatest at C-3-4 and some bilateral foraminal encroachment at levels described due to combined factors. 2. No compression fracture, malalignment or posterior element fracture. Stable examination from 09/30. Electronically Signed by William Villegas MD 05/04/2018 09:48 A
[2018-05-07 15:27] LABS: LEVETIRACETAM (KEPPRA) 1.5 ug/mL (10.0-40.0); TOPIRAMATE LEVEL 1.5 ug/mL (2.0-25.0)
== END 2018-05-03 22:05 | disposition home or self-care (01) ==
LOC: M ED 14:35 → EDBD 14:35 → M ED 22:05
DX: R51 Headache (principal); M54.2 Cervicalgia; E11.9 Type 2 diabetes mellitus without complications; I25.10 Atherosclerotic heart disease of native coronary artery without angina pectoris; I50.9 Heart failure, unspecified; J44.9 Chronic obstructive pulmonary disease, unspecified; F41.9 Anxiety disorder, unspecified; F32.9 Major depressive disorder, single episode, unspecified; R56.9 Unspecified convulsions; G20 Parkinson's disease; E78.00 Pure hypercholesterolemia, unspecified; Z86.718 Personal history of other venous thrombosis and embolism; F17.200 Nicotine dependence, unspecified, uncomplicated; R25.1 Tremor, unspecified; G24.01 Drug induced subacute dyskinesia; Z88.8 Allergy status to other drugs, medicaments and biological substances; Z88.0 Allergy status to penicillin; J30.2 Other seasonal allergic rhinitis; Z79.899 Other long term (current) drug therapy; Z79.51 Long term (current) use of inhaled steroids; Z79.82 Long term (current) use of aspirin; Z79.01 Long term (current) use of anticoagulants; Z79.4 Long term (current) use of insulin
CPT/HCPCS: 36415; 70450; 72125; 80048; 80162; 80180; 80299; 81001; 85025; 85610; 85730; 94640; 96360; 96361; 99284; J3475

== ENCOUNTER 2018-06-25 11:04 | Emergency (ER) | payer MEDICARE, MEDICAID ==
[~2018-06-25] VITALS: Ht 172.7 cm; Wt 72.3 kg
[2018-06-25 12:31] LABS: BASO % 0.6 % (0.0-1.0); EOS # 0.2 10^3/uL (0.0-0.50); EOS % 3.1 % (0.0-3.0); HEMATOCRIT 44.6 % (42.0-52.0); HEMOGLOBIN 15.8 g/dl (13.5-17.5); LYMPH % 42.9 % (24.0-44.0); MEAN CORPUSCULAR HEMOGLOBIN 33.1 pg (27.0-33.0); MEAN CORPUSCULAR HGB CONC 35.4 g/dl (32.0-36.5); MEAN CORPUSCULAR VOLUME 93.5 fl (80.0-96.0); MONO # 0.5 10^3/uL (0.0-0.8); MONO % 7.2 % (0.0-5.0); NEUTROPHILS # 3.2 10^3/uL (1.8-7.7); NEUTROPHILS % 45.9 % (36.0-66.0); PLATELET COUNT, AUTOMATED 197 10^3/uL (150-450); RED BLOOD COUNT 4.77 10^6/uL (4.30-6.10); WHITE BLOOD COUNT 7.1 10^3/uL (4.0-10.0)
[2018-06-25 13:11] LABS: ALT/SGPT 36 U/L (12-78); BILIRUBIN,TOTAL 0.5 MG/DL (0.2-1.0); BLOOD UREA NITROGEN 7 MG/DL (7-18); CALCIUM LEVEL 8.8 MG/DL (8.8-10.2); CARBON DIOXIDE LEVEL 25 MEQ/L (21-32); CHLORIDE LEVEL 106 MEQ/L (98-107); GLOMERULAR FILTRATION RATE > 60.0 (>49); GLUCOSE, FASTING 210 MG/DL (70-100); POTASSIUM SERUM 4.3 MEQ/L (3.5-5.1); SODIUM LEVEL 136 MEQ/L (136-145)
[2018-06-25] MEDS ORDERED: oxyCODONE 5MG TAB PO ONE (13:45)
--- NOTE | 2018-06-25 14:29 | REP ---
CT Head without contrast HISTORY: Parkinson's disease COMPARISON: 05/03/2018 Areas of decreased attenuation are present in the periventricular white matter. This represents small-vessel ischemic disease. There is no intraparenchymal hemorrhage, acute infarct, mass or midline shift. The ventricular system and cortical sulci are dilated consistent with mild volume loss. There is no extra cerebral collection. There is no fracture. Mucosal thickening is present in the ethmoid and right maxillary sinuses. Soft tissue density is present in the right nasal passage consistent with polyps. IMPRESSION: 1. Small-vessel ischemic disease. 2. Mild volume loss. Electronically Signed by Best Ozuna MD 06/25/2018 02:20 P
--- NOTE | 2018-06-25 14:52 | REP ---
Chest two views HISTORY: Pneumonia Comparison: 03/13/2018 The lungs are clear. The heart is normal in size. The pulmonary vasculature is normal in appearance. The bony structure is intact. IMPRESSION: No acute disease. Electronically Signed by Best Ozuna MD 06/25/2018 02:43 P
[2018-06-25 15:58] VITALS: BP 123/75
== END 2018-06-25 16:06 | disposition home or self-care (01) ==
LOC: M ED 11:04
DX: Z60.8 Other problems related to social environment (principal); R90.82 White matter disease, unspecified; E11.9 Type 2 diabetes mellitus without complications; I11.0 Hypertensive heart disease with heart failure; I50.9 Heart failure, unspecified; G20 Parkinson's disease; F41.9 Anxiety disorder, unspecified; Z79.899 Other long term (current) drug therapy; Z79.82 Long term (current) use of aspirin; Z79.01 Long term (current) use of anticoagulants; Z88.0 Allergy status to penicillin; Z88.8 Allergy status to other drugs, medicaments and biological substances; F17.210 Nicotine dependence, cigarettes, uncomplicated

== ENCOUNTER 2018-07-10 21:55 | Emergency (ER) | payer MEDICARE, MEDICAID ==
[~2018-07-10] VITALS: Ht 170.2 cm; Wt 37.2 kg
[~2018-07-10 21:55] MED LIST changes: +ACET-716 PO; -ACET30TAB PO; -ASPI1TAB PO; -ASPI81CH PO; +ASPI81CH49 PO; +ASPI81TA26 PO; +CRES10TA PO; -CRES10TA32 PO; -GLIM2TA PO; +GLIM2TAB29 PO; +HYDR-3715 PO; -NORCOTAB PO; +PRED-351 PO; -PRED10TA PO
[2018-07-10 22:00] VITALS: BP 136/74
--- NOTE | 2018-07-10 22:47 | REP ---
Clinical: Right hand pain Technique: AP, lateral views right hand . Findings: The osseous structures and joint spaces are intact and normal. There is no evidence for acute fracture or dislocation. Surrounding soft tissues are unremarkable. No subcutaneous emphysema or radiodense foreign body. Impression: Age-appropriate right hand series . No acute fracture or dislocation. Electronically Signed by Schuyler Burrell MD 07/10/2018 10:39 P
== END 2018-07-10 23:25 | disposition home or self-care (01) ==
LOC: M ED 21:55
DX: M19.90 Unspecified osteoarthritis, unspecified site (principal); G89.29 Other chronic pain; J44.9 Chronic obstructive pulmonary disease, unspecified; F13.20 Sedative, hypnotic or anxiolytic dependence, uncomplicated; F19.20 Other psychoactive substance dependence, uncomplicated; F17.200 Nicotine dependence, unspecified, uncomplicated; Z91.048 Other nonmedicinal substance allergy status; Z88.8 Allergy status to other drugs, medicaments and biological substances; Z88.0 Allergy status to penicillin

== ENCOUNTER → 2018-07-25 | Outpatient (CLI) | payer MEDICARE, MEDICAID ==
[2018-07-25 11:28] LABS: HEMATOCRIT 42.3 % (42.0-52.0); HEMOGLOBIN 14.8 g/dl (13.5-17.5); MEAN CORPUSCULAR HEMOGLOBIN 32.4 pg (27.0-33.0); MEAN CORPUSCULAR VOLUME 92.6 fl (80.0-96.0); PLATELET COUNT, AUTOMATED 219 10^3/uL (150-450); RED BLOOD COUNT 4.57 10^6/uL (4.30-6.10); WHITE BLOOD COUNT 6.4 10^3/uL (4.0-10.0)
[2018-07-25 12:02] LABS: ALBUMIN 4.1 GM/DL (3.2-5.2); ALT/SGPT 33 U/L (12-78); BILIRUBIN,TOTAL 0.6 MG/DL (0.2-1.0); BLOOD UREA NITROGEN 12 MG/DL (7-18); CALCIUM LEVEL 8.7 MG/DL (8.8-10.2); CARBON DIOXIDE LEVEL 26 MEQ/L (21-32); CHLORIDE LEVEL 104 MEQ/L (98-107); CHOLESTEROL LEVEL 109 MG/DL (<200); CREATININE FOR GFR 0.67 MG/DL (0.70-1.30); GLOMERULAR FILTRATION RATE > 60.0 (>49); GLUCOSE, FASTING 211 MG/DL (70-100); HDL CHOLESTEROL 48 MG/DL (>40); LDL CHOLESTEROL 45 MG/DL (<100); NON-HDL-C 61 MG/DL; POTASSIUM SERUM 3.9 MEQ/L (3.5-5.1); SODIUM LEVEL 137 MEQ/L (136-145); THYROID STIMULATING HORMONE 0.995 uIU/ML (0.358-3.740); TOTAL PROTEIN 7.7 GM/DL (6.4-8.2); TRIGLYCERIDES LEVEL 80 MG/DL (<150)
--- NOTE | 2018-07-25 12:13 | REP ---
CHEST, TWO VIEWS: COMPARISON: 06/25/2018 There is no evidence of acute infiltrate. No pleural effusion is seen. The heart is normal in size. The mediastinal silhouette is unremarkable. The visualized osseous structures are intact. There is calcification of the thoracic aorta. There are degenerative changes of the spine. IMPRESSION: No acute pulmonary disease. Electronically Signed by Tulio Poole MD 07/25/2018 05:04 P
[2018-07-25 12:21] LABS: HEMOGLOBIN A1c 9.6 %
--- NOTE | 2018-07-25 17:01 | ECGEPIP ---
Stationary ECG Study [facility] Test Date: 2018-07-25 Pat Name: PATY CH Department: Room: - Gender: M Team Member: : 1955 Requested By: Rufus Chun Order Number: [id number] Reading MD: Grady Escobedo Measurements Intervals [place] Rate: 62 P: 52 [place]: 210 QRS: 52 QRSD: 102 T: 31 QT: 398 QTc: 407 Interpretive Statements Normal sinus rhythm First-degree AV block Somewhat low limb voltages Marginal ST/T-wave abnormalities No change from 03/13/18. Electronically Signed On 07-25-2018 17:00:59 EDT by Grady Escobedo
== END ==
LOC: M LAB 10:33
PROVIDERS: ATTEND Family Medicine
DX: E03.9 Hypothyroidism, unspecified (principal)

== ENCOUNTER 2018-08-21 09:26 | Emergency (ER) | payer MEDICARE, MEDICAID ==
[~2018-08-21] VITALS: Ht 172.7 cm; Wt 68.6 kg
--- NOTE | 2018-08-21 10:27 | REP ---
Chest x-ray: Three views presented. History: Dyspnea and cough. Comparison chest x-ray: July 25, 2018. Findings: Sitting AP views and lateral views of the chest show clear symmetrically aerated lungs. Heart is not felt to be enlarged. The aorta is calcific. EKG electrodes are seen. No significant bony abnormality is seen. There are some degenerative disc changes in the thoracic spine. Impression: No active disease. Electronically Signed by Gerardo Key MD 08/21/2018 01:06 P
[2018-08-21 10:44] LABS: BASO % 0.1 % (0.0-1.0); EOS % 0.1 % (0.0-3.0); HEMATOCRIT 41.3 % (42.0-52.0); HEMOGLOBIN 14.8 g/dl (13.5-17.5); LYMPH % 27.2 % (24.0-44.0); MEAN CORPUSCULAR HEMOGLOBIN 33.7 pg (27.0-33.0); MEAN CORPUSCULAR HGB CONC 35.8 g/dl (32.0-36.5); MEAN CORPUSCULAR VOLUME 94.1 fl (80.0-96.0); MONO # 0.5 10^3/uL (0.0-0.8); MONO % 6.2 % (0.0-5.0); NEUTROPHILS # 4.8 10^3/uL (1.8-7.7); RED BLOOD COUNT 4.39 10^6/uL (4.30-6.10); WHITE BLOOD COUNT 7.3 10^3/uL (4.0-10.0)
[2018-08-21 10:53] LABS: ABG BASE EXCESS -1.4 (-2.0-2.0); ABG O2 SATURATION 98.4 % (95.0-99.0); ABG PARTIAL PRESSURE CO2 33.3 mmHg (35.0-45.0); ABG PARTIAL PRESSURE O2 129.6 mmHg (75.0-100.0); ABG STANDARD HCO3 23.3 MEQ/L (22.0-26.0); ABG pH (ARTERIAL) 7.437 UNITS (7.350-7.450)
[2018-08-21 11:03] LABS: PLATELET COUNT, AUTOMATED 134 10^3/uL (150-450)
[2018-08-21 11:24] LABS: BLOOD UREA NITROGEN 15 MG/DL (7-18); CALCIUM LEVEL 8.7 MG/DL (8.8-10.2); CARBON DIOXIDE LEVEL 26 MEQ/L (21-32); CHLORIDE LEVEL 100 MEQ/L (98-107); CPK CREATINE PHOSPHOKINASE 522 U/L (39-308); CREATININE FOR GFR 0.67 MG/DL (0.70-1.30); DIGOXIN LEVEL 0.3 NG/ML (0.5-2.0); GLOMERULAR FILTRATION RATE > 60.0 (>49); GLUCOSE, FASTING 275 MG/DL (70-100); MB/CK RELATIVE INDEX 1.26 (< OR =4); POTASSIUM SERUM 4.8 MEQ/L (3.5-5.1); SODIUM LEVEL 135 MEQ/L (136-145); THYROID STIMULATING HORMONE 0.978 uIU/ML (0.358-3.740); TROPONIN I 0.02 NG/ML (< 0.10)
[2018-08-21 12:00] LABS: INR 1.15; PROTHROMBIN TIME 14.9 SECONDS (12.1-14.4)
[2018-08-21 12:01] LABS: PARTIAL THROMBOPLASTIN TIME 27.5 SECONDS (25.4-37.6)
[2018-08-21] MEDS ORDERED: NS 500 ML IV ONE (12:15)
[2018-08-21] MEDS ORDERED: ISOVUE-370 76% 100ML VIAL (Q9967) As Ordered ONE (12:38)
--- NOTE | 2018-08-21 13:18 | REP ---
CT pulmonary angiogram: With IV contrast. History: Shortness of breath. Comparison studies: Comparison is made with today's chest x-ray. Comparison chest CT study is from March 20, 2017. Contrast dose: 75 mL of Isovue [address] technique: Helical scanning is acquired and overlapping 1.5 mm and contiguous 3 mm axial images are reformatted. In addition, maximum intensity projection and multiplanar re-formation images are generated in sagittal and coronal imaging projections. CT pulmonary angiographic findings: There is good opacification of the pulmonary arterial tree. There is no filling defect or vessel cutoff to suggest pulmonary embolism. The thoracic aorta enhances homogeneously with some vascular calcification. There is no evidence of aneurysm or dissection. There is considerable vascular calcification along the course of the left anterior descending coronary artery. These findings are unchanged. Emphysematous changes are noted in the upper lung zones as before. No infiltrate is seen. There is no evidence of pleural effusion or pericardial effusion. No hilar or mediastinal mass or adenopathy is observed. No adrenal lesion is seen. The visualized upper abdominal structures are unremarkable. No bony destructive lesion is seen. Impression: No CT evidence of pulmonary embolus. Mild emphysematous changes. Vascular calcification. Otherwise no acute disease. Electronically Signed by Gerardo Key MD 08/21/2018 03:07 P
[2018-08-21] MEDS ORDERED: IPRATROPIUM 0.5MG/ALBUTEROL 2.5MG INH SOL UD 3ML (DUONEB)(J7620) As Ordered ONE (14:20)
[2018-08-21] MEDS ORDERED: IPRATROPIUM 0.5MG/ALBUTEROL 2.5MG INH SOL UD 3ML (DUONEB)(J7620) NEB ONE (14:30)
[2018-08-21 14:43] VITALS: O2SAT 96
[2018-08-21 14:45] VITALS: BP 146/83
--- NOTE | 2018-08-22 07:15 | ECGEPIP ---
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
== END 2018-08-21 15:15 | disposition home or self-care (01) ==
LOC: M ED 09:26
DX: R06.02 Shortness of breath (principal); E11.9 Type 2 diabetes mellitus without complications; I10 Essential (primary) hypertension; J44.9 Chronic obstructive pulmonary disease, unspecified; I48.91 Unspecified atrial fibrillation; I25.10 Atherosclerotic heart disease of native coronary artery without angina pectoris; G40.909 Epilepsy, unspecified, not intractable, without status epilepticus; G20 Parkinson's disease; G89.29 Other chronic pain; M54.9 Dorsalgia, unspecified; Z79.899 Other long term (current) drug therapy; Z88.0 Allergy status to penicillin; Z88.8 Allergy status to other drugs, medicaments and biological substances; F17.210 Nicotine dependence, cigarettes, uncomplicated
CPT/HCPCS: 36415; 36600; 71046; 71275; 80048; 80162; 82550; 82553; 82803; 84443; 84484; 85025; 85610; 85730; 93005; 93041; 94640; 96360; 96361; 99285; Q9967

== ENCOUNTER 2018-08-29 17:19 | Emergency (ER) | payer MEDICARE, MEDICAID ==
[~2018-08-29] VITALS: Ht 172.7 cm; Wt 63.6 kg
[2018-08-29 18:36] LABS: HEMATOCRIT 38.9 % (42.0-52.0); HEMOGLOBIN 13.3 g/dl (13.5-17.5); MEAN CORPUSCULAR HEMOGLOBIN 32.4 pg (27.0-33.0); MEAN CORPUSCULAR HGB CONC 34.2 g/dl (32.0-36.5); MEAN CORPUSCULAR VOLUME 94.6 fl (80.0-96.0); PLATELET COUNT, AUTOMATED 156 10^3/uL (150-450); RED BLOOD COUNT 4.11 10^6/uL (4.30-6.10); WHITE BLOOD COUNT 6.5 10^3/uL (4.0-10.0)
[2018-08-29 18:56] LABS: BLOOD UREA NITROGEN 12 MG/DL (7-18); CALCIUM LEVEL 8.3 MG/DL (8.8-10.2); CARBON DIOXIDE LEVEL 27 MEQ/L (21-32); CHLORIDE LEVEL 105 MEQ/L (98-107); CREATININE FOR GFR 0.71 MG/DL (0.70-1.30); GLOMERULAR FILTRATION RATE > 60.0 (>49); GLUCOSE, FASTING 372 MG/DL (70-100); POTASSIUM SERUM 4.2 MEQ/L (3.5-5.1); SODIUM LEVEL 135 MEQ/L (136-145)
[2018-08-29 20:03] VITALS: BP 118/66
--- NOTE | 2018-08-30 08:13 | REP ---
HISTORY: Cough. COMPARISON: Two view exam of 08/21/2018, AP and lateral views. The technique utilized in obtaining the radiograph has magnified the cardiac silhouette and accentuated the interstitial markings. The lung forte are unchanged. No acute patchy parenchymal opacities or pleural effusions have developed. The heart is not enlarged and the pleural angles are sharp. The osseous structures are stable and intact. Chronic spinal degenerative changes are noted, status quo. IMPRESSION: No evidence of acute cardiopulmonary disease. Electronically Signed by Miguel Duran DO 08/30/2018 08:33 A
--- NOTE | 2018-08-30 17:47 | ECGEPIP ---
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
== END 2018-08-29 20:04 | disposition home or self-care (01) ==
LOC: M ED 17:19
DX: R53.1 Weakness (principal); R05 Cough; I25.10 Atherosclerotic heart disease of native coronary artery without angina pectoris; I48.91 Unspecified atrial fibrillation; I10 Essential (primary) hypertension; E11.9 Type 2 diabetes mellitus without complications; J44.9 Chronic obstructive pulmonary disease, unspecified

== ENCOUNTER 2018-09-24 10:10 | Emergency (ER) | payer MEDICARE, MEDICAID ==
[~2018-09-24] VITALS: Ht 172.7 cm; Wt 62.7 kg
[2018-09-24] MEDS ORDERED: TRAZ-163 PO (11:36)
--- NOTE | 2018-09-24 11:58 | REP ---
RIGHT WRIST, FOUR VIEWS: HISTORY: Injury. There is no acute fracture or dislocation. The joint spaces are normal in appearance. IMPRESSION: There is no acute fracture or dislocation. Electronically Signed by Best Ozuna MD 09/24/2018 12:00 P
--- NOTE | 2018-09-24 12:00 | REP ---
RIGHT HAND, FOUR VIEWS: HISTORY: Injury. There is no acute fracture or dislocation. The joint spaces are normal in appearance. IMPRESSION: There is no acute fracture or dislocation. Electronically Signed by Best Ozuna MD 09/24/2018 12:03 P
[2018-09-24] MEDS ORDERED: traMADol 50 MG TAB PO ONE (12:15)
[2018-09-24] MEDS ORDERED: ACET1TAB16 PO (12:22)
[2018-09-24] MEDS ORDERED: ACETAMINOPH W/CODEINE #3 TAB UD PO ONE (12:30)
[2018-09-24 12:35] VITALS: BP 135/82
== END 2018-09-24 12:40 | disposition home or self-care (01) ==
LOC: M ED 10:10
DX: S66.911A Strain of unspecified muscle, fascia and tendon at wrist and hand level, right hand, initial encounter (principal); S60.221A Contusion of right hand, initial encounter; W22.8XXA Striking against or struck by other objects, initial encounter; Y92.099 Unspecified place in other non-institutional residence as the place of occurrence of the external cause; Y93.89 Activity, other specified; Y99.9 Unspecified external cause status; I25.10 Atherosclerotic heart disease of native coronary artery without angina pectoris; I50.9 Heart failure, unspecified; E11.9 Type 2 diabetes mellitus without complications; I10 Essential (primary) hypertension; Z72.0 Tobacco use; Z79.01 Long term (current) use of anticoagulants; Z79.82 Long term (current) use of aspirin; Z79.4 Long term (current) use of insulin; Z79.899 Other long term (current) drug therapy; Z88.0 Allergy status to penicillin; Z88.6 Allergy status to analgesic agent; Z88.8 Allergy status to other drugs, medicaments and biological substances

== ENCOUNTER 2018-11-08 16:45 | Emergency (ER) | payer MEDICARE, MEDICAID ==
[~2018-11-08] VITALS: Ht 172.7 cm; Wt 62.7 kg
[~2018-11-08 16:45] MED LIST changes: +ACET1TAB16 PO; -AZIT500T2 PO; +AZIT500T5 PO; +DIGO0.123 PO; -DIGO0.25 PO; +DIGO0.253 PO; +FLUO10CA15 PO; -FLUO10CA8 PO; -GLIM4TAB PO; +GLIM4TAB5 PO; -TRAZ-163 PO; +TRAZ-257 PO
[2018-11-08] MEDS ORDERED: HYDR-3363 PO (17:39)
[2018-11-08] MEDS ORDERED: COMBAER6 INH ×2 (17:39)
[2018-11-08 18:34] VITALS: BP 138/81
== END 2018-11-08 18:35 | disposition home or self-care (01) ==
LOC: M ED 16:45
DX: F41.1 Generalized anxiety disorder (principal); I11.0 Hypertensive heart disease with heart failure; I50.9 Heart failure, unspecified; J45.909 Unspecified asthma, uncomplicated; J44.9 Chronic obstructive pulmonary disease, unspecified; G20 Parkinson's disease; E78.00 Pure hypercholesterolemia, unspecified; H54.8 Legal blindness, as defined in USA; Z79.899 Other long term (current) drug therapy; Z79.82 Long term (current) use of aspirin; Z79.01 Long term (current) use of anticoagulants; Z88.0 Allergy status to penicillin; Z88.8 Allergy status to other drugs, medicaments and biological substances; Z91.018 Allergy to other foods; F17.210 Nicotine dependence, cigarettes, uncomplicated

== ENCOUNTER 2018-11-10 13:53 | Emergency (ER) | payer MEDICARE, MEDICAID ==
[~2018-11-10 13:53] MED LIST changes: +AZIT500T2 PO; -AZIT500T5 PO; +COMBAER6 INH; -DIGO0.123 PO; +DIGO0.25 PO; -DIGO0.253 PO; -FLUO10CA15 PO; +FLUO10CA8 PO; +GLIM4TAB PO; -GLIM4TAB5 PO; +HYDR-3363 PO; +TRAZ-163 PO; -TRAZ-257 PO
[2018-11-10] MEDS ORDERED: LEVE500T5 PO (14:18)
[2018-11-10] MEDS ORDERED: GLIM2TAB29 PO (14:18)
--- NOTE | 2018-11-10 14:50 | REP ---
Clinical: Chest pain. Dyspnea. Comparison: 08/21/2018 . Technique: PA and lateral. Findings: The mediastinum and cardiac silhouette are normal. The lung forte demonstrate chronic interstitial changes without acute consolidation, effusion, or pneumothorax. The skeletal structures are intact and normal. Impression: 1. No acute cardiopulmonary process. Electronically Signed by Schuyler Burrell MD 11/10/2018 02:42 P
[2018-11-10 15:53] LABS: HEMATOCRIT 41.3 % (42.0-52.0); HEMOGLOBIN 14.5 g/dl (13.5-17.5); MEAN CORPUSCULAR HEMOGLOBIN 32.2 pg (27.0-33.0); MEAN CORPUSCULAR HGB CONC 35.1 g/dl (32.0-36.5); MEAN CORPUSCULAR VOLUME 91.6 fl (80.0-96.0); PLATELET COUNT, AUTOMATED 224 10^3/uL (150-450); RED BLOOD COUNT 4.51 10^6/uL (4.30-6.10); WHITE BLOOD COUNT 7.2 10^3/uL (4.0-10.0)
[2018-11-10 16:21] LABS: BLOOD UREA NITROGEN 18 MG/DL (7-18); CALCIUM LEVEL 9.2 MG/DL (8.8-10.2); CARBON DIOXIDE LEVEL 26 MEQ/L (21-32); CHLORIDE LEVEL 102 MEQ/L (98-107); CREATININE FOR GFR 0.83 MG/DL (0.70-1.30); GLOMERULAR FILTRATION RATE > 60.0 (>49); GLUCOSE, FASTING 362 MG/DL (70-100); POTASSIUM SERUM 4.2 MEQ/L (3.5-5.1); SODIUM LEVEL 137 MEQ/L (136-145)
[2018-11-10] MEDS ORDERED: HumuLIN R (REGULAR) INSULIN (NovoLIN R) **100U/ML** PER UNIT SC STA ×2 (16:41→19:03)
[2018-11-10 21:30] VITALS: BP 125/75
== END 2018-11-10 21:44 | disposition home or self-care (01) ==
LOC: M ED 13:53 → EDBD 13:53 → M ED 21:44
DX: R09.1 Pleurisy (principal); E11.65 Type 2 diabetes mellitus with hyperglycemia; I10 Essential (primary) hypertension; J45.909 Unspecified asthma, uncomplicated; Z79.899 Other long term (current) drug therapy; Z79.84 Long term (current) use of oral hypoglycemic drugs; Z79.01 Long term (current) use of anticoagulants; Z88.0 Allergy status to penicillin; Z88.8 Allergy status to other drugs, medicaments and biological substances; Z91.018 Allergy to other foods; F17.210 Nicotine dependence, cigarettes, uncomplicated

== ENCOUNTER 2018-11-26 15:43 | Emergency (ER) | payer MEDICARE, MEDICAID ==
[~2018-11-26 15:43] MED LIST changes: -AZIT500T2 PO; +AZIT500T5 PO; +DIGO0.123 PO; -DIGO0.25 PO; +DIGO0.253 PO; +FLUO10CA15 PO; -FLUO10CA8 PO; -GLIM4TAB PO; +GLIM4TAB5 PO; +LEVE500T5 PO; -TRAZ-163 PO; +TRAZ-257 PO
[2018-11-26] MEDS ORDERED: ALBUTEROL SULFATE 2.5 MG/0.5 ML INH NEB SOLN INH ONE (17:00)
[2018-11-26] MEDS ORDERED: IPRATROPIUM 0.5MG/ALBUTEROL 2.5MG INH SOL UD 3ML (DUONEB)(J7620) NEB ONE (17:00)
[2018-11-26] MEDS ORDERED: predniSONE 20 MG TAB PO ONE (17:00)
[2018-11-26] MEDS ORDERED: PRED20TA PO (17:37)
[2018-11-26] MEDS ORDERED: DOXY-350 PO (17:37)
[2018-11-26] MEDS ORDERED: DOXYCYCLINE HYCLATE 100 MG TAB PO ONE (17:45)
--- NOTE | 2018-11-26 18:25 | REP ---
Chest x-ray: Two views. History: Cough. Comparison chest x-ray: November 10, 2018. Findings: The lungs are symmetrically aerated and clear. Pleural angles are sharp. Cardiomediastinal silhouette is unremarkable. There are degenerative changes in the thoracic spine. Impression: No active disease. Electronically Signed by Gerardo Key MD 11/26/2018 09:12 P
[2018-11-26 18:27] VITALS: BP 142/84
== END 2018-11-26 18:30 | disposition home or self-care (01) ==
LOC: M ED 15:43 → EDBD 15:43 → M ED 18:30
DX: J44.1 Chronic obstructive pulmonary disease with (acute) exacerbation (principal); I51.9 Heart disease, unspecified; E11.9 Type 2 diabetes mellitus without complications; I10 Essential (primary) hypertension; Z72.0 Tobacco use; Z79.01 Long term (current) use of anticoagulants; Z79.82 Long term (current) use of aspirin; Z79.84 Long term (current) use of oral hypoglycemic drugs; Z79.899 Other long term (current) drug therapy; Z91.018 Allergy to other foods; Z88.0 Allergy status to penicillin; Z88.6 Allergy status to analgesic agent; Z88.8 Allergy status to other drugs, medicaments and biological substances

== ENCOUNTER 2018-12-06 23:21 | Emergency (ER) | payer MEDICARE, MEDICAID ==
[~2018-12-06] VITALS: Ht 172.7 cm; Wt 64.0 kg
[~2018-12-06 23:21] MED LIST changes: +AZIT500T2 PO; -AZIT500T5 PO; -DIGO0.123 PO; +DIGO0.25 PO; -DIGO0.253 PO; -FLUO10CA15 PO; +FLUO10CA8 PO; +GLIM4TAB PO; -GLIM4TAB5 PO; +TRAZ-163 PO; -TRAZ-257 PO
[2018-12-07] MEDS ORDERED: ALBUTEROL SULFATE 2.5 MG/0.5 ML INH NEB SOLN NEB ONE
[2018-12-07] MEDS ORDERED: methylPREDNISolone INJ 125 MG/2 ML VIAL (J2930) IM ONE
[2018-12-07 01:10] VITALS: BP 123/80
--- NOTE | 2018-12-07 10:51 | REP ---
Portable chest, 12:26 a.m., single AP view with the patient sitting: Comparison is a 2018. The lung forte are clear. The cardiac size is normal. The yonas, mediastinum, and skeletal structures are unremarkable. Impression: Negative portable chest. There is no interval change. Electronically Signed by Tulio Tirado MD 12/07/2018 08:08 A
== END 2018-12-07 01:57 | disposition home or self-care (01) ==
LOC: M ED 23:21 → EDSEX 23:21 → EDBD 23:21 → M ED 12-07 01:57
DX: J40 Bronchitis, not specified as acute or chronic (principal); I48.91 Unspecified atrial fibrillation; J44.9 Chronic obstructive pulmonary disease, unspecified; G89.29 Other chronic pain; Z86.73 Personal history of transient ischemic attack (TIA), and cerebral infarction without residual deficits; F17.200 Nicotine dependence, unspecified, uncomplicated; Z88.0 Allergy status to penicillin; Z88.6 Allergy status to analgesic agent; Z88.8 Allergy status to other drugs, medicaments and biological substances; Z91.013 Allergy to seafood; Z79.899 Other long term (current) drug therapy; Z79.51 Long term (current) use of inhaled steroids; Z79.82 Long term (current) use of aspirin
CPT/HCPCS: 71045; 94640; 96372; 99284; J2930

== ENCOUNTER 2018-12-13 17:41 | Emergency (ER) | payer MEDICARE, MEDICAID ==
[~2018-12-13] VITALS: Ht 172.7 cm; Wt 62.3 kg
[2018-12-13] MEDS ORDERED: CLOTRIMAZOLE 10 MG TROCHE PO ONE (20:03)
[2018-12-13] MEDS ORDERED: CLOT10TR PO (20:06)
[2018-12-13 20:25] VITALS: BP 134/78
== END 2018-12-13 20:27 | disposition home or self-care (01) ==
LOC: M ED 17:41
DX: H61.23 Impacted cerumen, bilateral (principal); B37.0 Candidal stomatitis; E11.9 Type 2 diabetes mellitus without complications; I11.0 Hypertensive heart disease with heart failure; I50.9 Heart failure, unspecified; K75.9 Inflammatory liver disease, unspecified; I25.2 Old myocardial infarction; Z79.899 Other long term (current) drug therapy; Z79.84 Long term (current) use of oral hypoglycemic drugs; Z79.01 Long term (current) use of anticoagulants; Z88.0 Allergy status to penicillin; Z88.8 Allergy status to other drugs, medicaments and biological substances; Z91.018 Allergy to other foods; F17.210 Nicotine dependence, cigarettes, uncomplicated

== ENCOUNTER 2018-12-30 19:36 | Emergency (ER) | payer MEDICARE, MEDICAID ==
[~2018-12-30] VITALS: Ht 172.7 cm; Wt 60.9 kg
[~2018-12-30 19:36] MED LIST changes: +CLOT10TR PO
[2018-12-30 20:29] LABS: BASO # 0.1 10^3/uL (0.0-0.2); BASO % 0.5 % (0.0-1.0); EOS # 0.1 10^3/uL (0.0-0.5); EOS % 1.3 % (0.0-3.0); HEMATOCRIT 45.3 % (42.0-52.0); HEMOGLOBIN 15.9 g/dl (13.5-17.5); LYMPH % 30.3 % (24.0-44.0); MEAN CORPUSCULAR HEMOGLOBIN 32.3 pg (27.0-33.0); MEAN CORPUSCULAR HGB CONC 35.1 g/dl (32.0-36.5); MEAN CORPUSCULAR VOLUME 92.1 fl (80.0-96.0); MONO # 0.6 10^3/uL (0.0-0.8); MONO % 6.4 % (0.0-5.0); PLATELET COUNT, AUTOMATED 226 10^3/uL (150-450); RED BLOOD COUNT 4.92 10^6/uL (4.30-6.10); WHITE BLOOD COUNT 9.8 10^3/uL (4.0-10.0)
[2018-12-30 21:08] LABS: BLOOD UREA NITROGEN 16 MG/DL (7-18); CALCIUM LEVEL 9.2 MG/DL (8.8-10.2); CARBON DIOXIDE LEVEL 26 MEQ/L (21-32); CHLORIDE LEVEL 99 MEQ/L (98-107); CK-MB VALUE MASS 3.4 NG/ML (<3.6); CPK CREATINE PHOSPHOKINASE 144 U/L (39-308); CREATININE FOR GFR 0.74 MG/DL (0.70-1.30); GLOMERULAR FILTRATION RATE > 60.0 (>49); GLUCOSE, FASTING 271 MG/DL (70-100); MB/CK RELATIVE INDEX 2.36 (< OR =4); SODIUM LEVEL 134 MEQ/L (136-145); TROPONIN I < 0.02 NG/ML (< 0.10)
[2018-12-30] MEDS ORDERED: IPRATROPIUM 0.5MG/ALBUTEROL 2.5MG INH SOL UD 3ML (DUONEB)(J7620) NEB PRN (21:45)
[2018-12-30 22:03] LABS: NT-PRO BNP 10 PG/ML (<125)
[2018-12-30] MEDS ORDERED: ISOVUE-370 76% 100ML VIAL (Q9967) As Ordered ONE (22:17)
--- NOTE | 2018-12-30 22:59 | REPVR ---
EXAM: CT Neck With Contrast EXAM DATE/TIME: 12/30/2018 10:31 PM CLINICAL HISTORY: 63 years old, male; Painful swallowing and throat pain; Additional info: Hoarsness, heavy smoking history TECHNIQUE: Imaging protocol: Computed tomography images of the neck with intravenous contrast. Radiation optimization: All CT scans at this facility use at least one of these dose optimization techniques: automated exposure control; mA and/or kV adjustment per patient size (includes targeted exams where dose is matched to clinical indication); or iterative reconstruction. Contrast material: ISOVUE 370; Contrast volume: 75 ml; Contrast route: IV; COMPARISON: CT Spine,cervical w/o contrast 05/03/2018 2:53 PM FINDINGS: Sinuses: Bilateral maxillary sinus retention cysts. Nasopharynx: Unremarkable. Oropharynx: Unremarkable. No significant tonsillar enlargement. No peritonsillar abscess. Hypopharynx: Unremarkable. Larynx: Unremarkable. Normal epiglottis. Retropharyngeal space: Unremarkable. Submandibular/Parotid glands: Unremarkable. Thyroid: Unremarkable. No enlarged or calcified nodules. Lymph nodes: No lymphadenopathy. Trachea: Unremarkable. Lungs: Emphysematous changes of the lungs. Vasculature: Unremarkable. 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 Bones/joints: Degenerative changes of the cervical spine. No acute fracture. Soft tissues: Approximately 2.4 cm ovoid cystic lesion in the right lateral neck deep to the right sternocleidomastoid muscle and slightly abutting the right internal jugular vein. IMPRESSION: 1. No acute findings in the soft tissues of the neck. 2. Approximately 2.4 cm ovoid cystic lesion in the right lateral neck deep to the right sternocleidomastoid muscle and slightly abutting the right internal jugular vein. Differential includes branchial cleft cyst, cystic/necrotic lymph node, or lymphatic lesion. Lesion is partially visualized on prior CT cervical spine from 05/03/2018. Recommend ENT consultation and further evaluation with ultrasound. 3. Other chronic findings, as above. Electronically signed by: Td Fletcher On 12/30/2018 22:59:13 PM
--- NOTE | 2018-12-30 23:00 | REPVR ---
EXAM: XR Chest, 2 Views EXAM DATE/TIME: 12/30/2018 8:50 PM CLINICAL HISTORY: 63 years old, male; Chest pain; Additional info: Dyspnea/cough TECHNIQUE: Imaging protocol: XR of the chest Views: 2 views. COMPARISON: CR Chest, 1 view 12/07/2018 12:23 AM FINDINGS: Lungs: No focal areas of consolidation. Pleural space: No pleural effusion or pneumothorax. Heart/Mediastinum: Cardiac and mediastinal silhouettes are unremarkable. Bones/joints: No acute osseus lesion or fracture. IMPRESSION: No acute cardiopulmonary pathology. Electronically signed by: Td Fletcher On 12/30/2018 23:00:02 PM
[2018-12-30 23:35] VITALS: BP 122/78
--- NOTE | 2018-12-31 05:36 | ECGEPIP ---
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
--- NOTE | 2019-01-05 20:05 | ED PDOC ---
Post-Departure Follow-Up dr solorzano and dr carmen faxed formal report of ct neck for fu marielag Amrit Rico MD Jan 05, 2019 20:05
== END 2018-12-30 23:44 | disposition home or self-care (01) ==
LOC: M ED 19:36
DX: J39.8 Other specified diseases of upper respiratory tract (principal); R06.02 Shortness of breath; E11.9 Type 2 diabetes mellitus without complications; I11.0 Hypertensive heart disease with heart failure; J44.9 Chronic obstructive pulmonary disease, unspecified; I50.9 Heart failure, unspecified; E78.5 Hyperlipidemia, unspecified; K21.9 Gastro-esophageal reflux disease without esophagitis; G20 Parkinson's disease; F33.9 Major depressive disorder, recurrent, unspecified; F41.9 Anxiety disorder, unspecified; G89.29 Other chronic pain; M54.9 Dorsalgia, unspecified; H54.8 Legal blindness, as defined in USA; Z99.81 Dependence on supplemental oxygen; Z79.899 Other long term (current) drug therapy; Z79.01 Long term (current) use of anticoagulants; Z88.0 Allergy status to penicillin; Z88.8 Allergy status to other drugs, medicaments and biological substances; Z91.018 Allergy to other foods; F17.210 Nicotine dependence, cigarettes, uncomplicated
CPT/HCPCS: 36415; 70491; 71046; 80048; 82550; 82553; 83880; 84484; 85025; 93005; 94640; 99284; Q9967

== ENCOUNTER 2019-01-08 12:14 | Emergency (ER) | payer MEDICARE, MEDICAID ==
[~2019-01-08 12:14] MED LIST changes: -AZIT500T2 PO; +AZIT500T5 PO; +DIGO0.123 PO; -DIGO0.25 PO; +DIGO0.253 PO; +FLUO10CA15 PO; -FLUO10CA8 PO; -GLIM4TAB PO; +GLIM4TAB5 PO; -TRAZ-163 PO; +TRAZ-257 PO
[2019-01-08] MEDS ORDERED: LIDOCAINE VISCOUS 2% SOLN 15ML UDC PO ONE ×2 (13:45→16:15)
[2019-01-08] MEDS ORDERED: CHLO0.5L PO (16:07)
[2019-01-08 17:43] VITALS: BP 154/87
== END 2019-01-08 18:28 | disposition home or self-care (01) ==
LOC: EDBD 12:14 → M ED 12:14
DX: J02.9 Acute pharyngitis, unspecified (principal); R22.1 Localized swelling, mass and lump, neck; E11.9 Type 2 diabetes mellitus without complications; E78.5 Hyperlipidemia, unspecified; G20 Parkinson's disease; K21.9 Gastro-esophageal reflux disease without esophagitis; I11.9 Hypertensive heart disease without heart failure; Z86.718 Personal history of other venous thrombosis and embolism; Z86.73 Personal history of transient ischemic attack (TIA), and cerebral infarction without residual deficits; F17.210 Nicotine dependence, cigarettes, uncomplicated; Z88.0 Allergy status to penicillin; Z88.1 Allergy status to other antibiotic agents; Z88.4 Allergy status to anesthetic agent; Z88.6 Allergy status to analgesic agent; Z88.8 Allergy status to other drugs, medicaments and biological substances; Z91.013 Allergy to seafood; Z79.51 Long term (current) use of inhaled steroids; Z79.52 Long term (current) use of systemic steroids; Z79.82 Long term (current) use of aspirin; Z79.83 Long term (current) use of bisphosphonates; Z79.899 Other long term (current) drug therapy

== ENCOUNTER → 2019-01-12 | Outpatient (CLI) | payer MEDICARE, MEDICAID ==
[~2019-01-12] MED LIST changes: +AZIT500T2 PO; -AZIT500T5 PO; +CHLO0.5L PO; -DIGO0.123 PO; +DIGO0.25 PO; -DIGO0.253 PO; +E-Z-GAS II EFFERVESCENT PACKET (SODIUM BICARB./CITRIC ACID/SIMETHICONE) As Ordered ONE; +E-Z-HD 98% w/w 340GM SUSP BTL As Ordered ONE; +E-Z-PAQUE 96% w/w SUSP 176GM BTL As Ordered ONE; -FLUO10CA15 PO; +FLUO10CA8 PO; +GLIM4TAB PO; -GLIM4TAB5 PO; +TRAZ-163 PO; -TRAZ-257 PO
--- NOTE | 2019-01-12 16:33 | REP ---
Esophagram The procedure was performed under the direct supervision of Dr. Poole. The images were reviewed with Dr. Poole. A single view PA chest x-ray is submitted as a siebel crm developer film. Is no change compared to a previous chest x-ray performed on 12/30/2018. Exam is limited due to patient mobility. Liquid barium was administered in the right and left lateral recumbent positions. The oral and pharyngeal stages of deglutition are unremarkable. There are esophageal transport there are tertiary waves demonstrated. There is no evidence of esophagitis stricture mucosal ring or hiatal hernia. There is gastroesophageal reflux demonstrated to the level of the thoracic inlet. Impression: Limited exam due to patient ability. There are tertiary waves demonstrated. There is gastroesophageal reflux demonstrated to the level of the thoracic inlet. 0.7 minutes of fluoro time was utilized for this procedure. Electronically Signed by ZEYNEP Barajas 01/12/2019 01:59 P Electronically Signed by Tulio Poole MD 01/12/2019 04:25 P
== END ==
LOC: M RAD 09:34
PROVIDERS: ATTEND Specialist
DX: R13.10 Dysphagia, unspecified (principal)

== ENCOUNTER 2019-02-04 13:24 | Emergency (ER) | payer MEDICARE, MEDICAID ==
[~2019-02-04] VITALS: Ht 172.7 cm; Wt 59.5 kg
[~2019-02-04 13:24] MED LIST changes: -AZIT500T2 PO; +AZIT500T5 PO; -E-Z-GAS II EFFERVESCENT PACKET (SODIUM BICARB./CITRIC ACID/SIMETHICONE) As Ordered ONE; -E-Z-HD 98% w/w 340GM SUSP BTL As Ordered ONE; -E-Z-PAQUE 96% w/w SUSP 176GM BTL As Ordered ONE; -GLIM4TAB PO; +GLIM4TAB3 PO
[2019-02-04 14:30] LABS: BASO # 0.1 10^3/uL (0.0-0.2); BASO % 1.2 % (0.0-1.0); EOS # 0.1 10^3/uL (0.0-0.5); EOS % 1.8 % (0.0-3.0); HEMATOCRIT 45.2 % (42.0-52.0); HEMOGLOBIN 15.6 g/dl (13.5-17.5); LYMPH # 2.4 10^3/uL (1.5-5.0); LYMPH % 30.6 % (24.0-44.0); MEAN CORPUSCULAR HEMOGLOBIN 31.7 pg (27.0-33.0); MEAN CORPUSCULAR HGB CONC 34.5 g/dl (32.0-36.5); MEAN CORPUSCULAR VOLUME 91.9 fl (80.0-96.0); MONO # 0.5 10^3/uL (0.0-0.8); MONO % 6.7 % (0.0-5.0); NEUTROPHILS # 4.6 10^3/uL (1.5-8.5); NEUTROPHILS % 59.3 % (36.0-66.0); PLATELET COUNT, AUTOMATED 256 10^3/uL (150-450); RED BLOOD COUNT 4.92 10^6/uL (4.30-6.10); WHITE BLOOD COUNT 7.7 10^3/uL (4.0-10.0)
[2019-02-04] MEDS ORDERED: NS 1,000 ML IV ONE (14:30)
[2019-02-04] MEDS ORDERED: IPRATROPIUM 0.5MG/ALBUTEROL 2.5MG INH SOL UD 3ML (DUONEB)(J7620) NEB ONE (14:30)
[2019-02-04] MEDS ORDERED: METOCLOPRAMIDE INJ 10MG/2ML VIAL (J2765) IV ONE (15:00)
[2019-02-04 15:11] LABS: BLOOD UREA NITROGEN 11 MG/DL (7-18); CALCIUM LEVEL 9.7 MG/DL (8.8-10.2); CARBON DIOXIDE LEVEL 28 MEQ/L (21-32); CHLORIDE LEVEL 105 MEQ/L (98-107); CK-MB VALUE MASS 2.2 NG/ML (<3.6); CPK CREATINE PHOSPHOKINASE 152 U/L (39-308); CREATININE FOR GFR 0.85 MG/DL (0.70-1.30); DIGOXIN LEVEL 0.6 NG/ML (0.5-2.0); GLOMERULAR FILTRATION RATE > 60.0 (>49); GLUCOSE, FASTING 259 MG/DL (70-100); MB/CK RELATIVE INDEX 1.45 (< OR =4); NT-PRO BNP 47 PG/ML (<125); POTASSIUM SERUM 4.2 MEQ/L (3.5-5.1); SODIUM LEVEL 138 MEQ/L (136-145); TROPONIN I < 0.02 NG/ML (< 0.10)
--- NOTE | 2019-02-04 15:45 | REP ---
CHEST, TWO VIEWS: There is no evidence of acute infiltrate. No pleural effusion is seen. The heart is normal in size. The mediastinal silhouette is unremarkable. The visualized osseous structures are intact. There is calcification of the thoracic aorta. There are degenerative changes of the spine. IMPRESSION: No acute pulmonary disease. Electronically Signed by Tulio Poole MD 02/06/2019 12:57 A
--- NOTE | 2019-02-04 17:27 | ECGEPIP ---
[facility] - ED Test Date: 2019-02-04 Pat Name: PATY CH Department: Room: - Gender: Male Secy: mark : 1955 Requested By: TAL GRAHAM PA-C. Order Number: [id number] Reading MD: Joseph Sanchez Measurements Intervals [place] Rate: 81 P: 57 [place]: 209 QRS: 54 QRSD: 96 T: 59 QT: 351 QTc: 408 Interpretive Statements SINUS RHYTHM WITH DEGREE AV BLOCK POOR R WAVE PROGRESSION NSTTW ABNORMALITIES SIMILAR TO 12/30/18 Electronically Signed on 02-04-2019 17:27:37 EDT by Joseph Sanchez
[2019-02-04 17:30] VITALS: BP 153/88
== END 2019-02-04 18:05 | disposition home or self-care (01) ==
LOC: M ED 13:24
DX: R51 Headache (principal); E11.9 Type 2 diabetes mellitus without complications; Z79.84 Long term (current) use of oral hypoglycemic drugs; I10 Essential (primary) hypertension; J44.1 Chronic obstructive pulmonary disease with (acute) exacerbation; E78.5 Hyperlipidemia, unspecified; G20 Parkinson's disease; F02.81 Dementia in other diseases classified elsewhere, unspecified severity, with behavioral disturbance; H54.8 Legal blindness, as defined in USA; Z85.21 Personal history of malignant neoplasm of larynx; Z90.49 Acquired absence of other specified parts of digestive tract; F17.210 Nicotine dependence, cigarettes, uncomplicated; Z88.0 Allergy status to penicillin; Z88.8 Allergy status to other drugs, medicaments and biological substances; Z91.013 Allergy to seafood; Z79.82 Long term (current) use of aspirin; Z79.899 Other long term (current) drug therapy
CPT/HCPCS: 71046; 80048; 80162; 80180; 82550; 82553; 83880; 84484; 85025; 93005; 94640; 94760; 96374; 99284; J2765

== ENCOUNTER → 2019-02-09 | Outpatient (CLI) | payer MEDICARE, MEDICAID ==
[~2019-02-09] MED LIST changes: +LIDOCAINE 1% MDV 20ML VIAL As Ordered ONE
[2019-02-09 13:50] VITALS: BP 140/79
--- NOTE | 2019-02-10 14:04 | REP ---
ULTRASOUND-GUIDED LEFT NECK NODULE BIOPSY The procedure was performed under the direct supervision of Dr. Poole. The patient has a history of A 2.4 cm ovoid cystic lesion in the right lateral neck deep to the right sternocleidomastoid muscle and slightly abutting the right internal jugular vein, seen on a previous CT scan dated 12/30/2018. The risks and benefits of the procedure were explained to the patient and informed consent was obtained. The right neck cystic lesion was localized using ultrasound guidance. The skin was prepped and draped in a sterile fashion. 1% lidocaine was used as a local anesthetic. Using ultrasound guidance an 18-gauge needle was inserted and advanced into the cyst. 1 ml of thick beige colored fluid was withdrawn and sent to the lab for analysis. The patient tolerated the procedure well and there were no immediate complications. After the appropriate amount of monitored convalescence the patient was discharged from the department. Electronically Signed by ZEYNEP Barajas 02/09/2019 04:33 P Electronically Signed by Tulio Poole MD 02/10/2019 01:55 P
== END ==
LOC: M IRPRO 12:46
PROVIDERS: ATTEND Specialist
DX: R22.1 Localized swelling, mass and lump, neck (principal)

== ENCOUNTER 2019-03-02 20:15 | Emergency (ER) | payer MEDICARE, MEDICAID ==
[~2019-03-02] VITALS: Ht 172.7 cm; Wt 63.6 kg
[~2019-03-02 20:15] MED LIST changes: -LIDOCAINE 1% MDV 20ML VIAL As Ordered ONE
[2019-03-02] MEDS ORDERED: traZODone 100 MG TAB PO ONE (21:00)
[2019-03-02 22:09] LABS: BASO # 0.1 10^3/uL (0.0-0.2); BASO % 0.9 % (0.0-1.0); EOS # 0.4 10^3/uL (0.0-0.5); EOS % 4.1 % (0.0-3.0); HEMATOCRIT 41.5 % (42.0-52.0); HEMOGLOBIN 14.7 g/dl (13.5-17.5); LYMPH # 3.4 10^3/uL (1.5-5.0); LYMPH % 39.6 % (24.0-44.0); MEAN CORPUSCULAR HEMOGLOBIN 32.2 pg (27.0-33.0); MEAN CORPUSCULAR HGB CONC 35.4 g/dl (32.0-36.5); MONO # 0.6 10^3/uL (0.0-0.8); MONO % 7.2 % (0.0-5.0); NEUTROPHILS # 4.2 10^3/uL (1.5-8.5); PLATELET COUNT, AUTOMATED 219 10^3/uL (150-450); RED BLOOD COUNT 4.56 10^6/uL (4.30-6.10); WHITE BLOOD COUNT 8.6 10^3/uL (4.0-10.0)
[2019-03-02 22:41] LABS: ALBUMIN 3.7 GM/DL (3.2-5.2); ALT/SGPT 27 U/L (12-78); BILIRUBIN,DIRECT 0.2 MG/DL (0.0-0.2); BILIRUBIN,TOTAL 0.5 MG/DL (0.2-1.0); BLOOD UREA NITROGEN 9 MG/DL (7-18); CALCIUM LEVEL 8.8 MG/DL (8.8-10.2); CARBON DIOXIDE LEVEL 25 MEQ/L (21-32); CHLORIDE LEVEL 106 MEQ/L (98-107); CK-MB VALUE MASS 3.5 NG/ML (<3.6); CPK CREATINE PHOSPHOKINASE 187 U/L (39-308); CREATININE FOR GFR 0.78 MG/DL (0.70-1.30); DIGOXIN LEVEL 0.5 NG/ML (0.5-2.0); GLOMERULAR FILTRATION RATE > 60.0 (>49); GLUCOSE, FASTING 253 MG/DL (70-100); MB/CK RELATIVE INDEX 1.87 (< OR =4); POTASSIUM SERUM 3.8 MEQ/L (3.5-5.1); SODIUM LEVEL 138 MEQ/L (136-145); TOTAL PROTEIN 7.4 GM/DL (6.4-8.2); TROPONIN I < 0.02 NG/ML (< 0.10)
[2019-03-02 23:41] VITALS: BP 130/70
--- NOTE | 2019-03-03 07:42 | ECGEPIP ---
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
--- NOTE | 2019-03-03 08:24 | REP ---
Chest x-ray: Two views. History: Chest pain. Comparison chest x-ray: February 04, 2019. Findings: Monitoring electrodes are seen. The lungs are symmetrically aerated and free of infiltrate. Vascular calcification is noted in the aorta. There are mild degenerative changes in the thoracic spine and in the shoulders. Pulmonary vasculature is not increased. Pleural angles are sharp. Impression: No acute disease. Electronically Signed by Gerardo Key MD 03/03/2019 08:15 A
== END 2019-03-02 23:43 | disposition home or self-care (01) ==
LOC: M ED 20:15
DX: J06.9 Acute upper respiratory infection, unspecified (principal); I25.10 Atherosclerotic heart disease of native coronary artery without angina pectoris; J43.9 Emphysema, unspecified; G89.29 Other chronic pain; M54.9 Dorsalgia, unspecified; E11.9 Type 2 diabetes mellitus without complications; R56.9 Unspecified convulsions; G20 Parkinson's disease; Z88.0 Allergy status to penicillin; Z88.8 Allergy status to other drugs, medicaments and biological substances; Z91.018 Allergy to other foods; Z79.899 Other long term (current) drug therapy; Z79.51 Long term (current) use of inhaled steroids

== ENCOUNTER 2019-03-12 21:35 | Emergency (ER) | payer MEDICARE, MEDICAID ==
[2019-03-12 22:57] VITALS: BP 142/82
--- NOTE | 2019-03-13 06:27 | REP ---
Clinical: Pain. Technique: AP, lateral views of the left knee. Findings: Generalized age-related degenerative changes are appreciated including subchondral sclerosis to the tibial plateau with medial joint space narrowing as well as subtle cortical irregularity and early spurring. No acute fracture dislocation. No effusion. Impression: Generalized age-related degenerative changes. Electronically Signed by Schuyler Burrell MD 03/13/2019 06:19 A
== END 2019-03-12 23:08 | disposition home or self-care (01) ==
LOC: M ED 21:35
DX: G89.29 Other chronic pain (principal); M25.562 Pain in left knee; M17.12 Unilateral primary osteoarthritis, left knee; I48.91 Unspecified atrial fibrillation; J44.9 Chronic obstructive pulmonary disease, unspecified; F17.210 Nicotine dependence, cigarettes, uncomplicated; Z88.0 Allergy status to penicillin; Z88.6 Allergy status to analgesic agent; Z91.013 Allergy to seafood; Z79.51 Long term (current) use of inhaled steroids; Z79.82 Long term (current) use of aspirin; Z79.83 Long term (current) use of bisphosphonates; Z79.891 Long term (current) use of opiate analgesic; Z79.899 Other long term (current) drug therapy

== ENCOUNTER 2019-04-12 06:54 | Emergency (ER) | payer MEDICARE, MEDICAID ==
[~2019-04-12] VITALS: Ht 172.7 cm; Wt 73.2 kg
[~2019-04-12 06:54] MED LIST changes: +DIGO0.123 PO; -DIGO0.25 PO; +DIGO0.253 PO; +FLUO10CA15 PO; -FLUO10CA8 PO
--- NOTE | 2019-04-12 08:32 | REP ---
Clinical: Pain. Fall. Technique: AP, lateral, bilateral oblique views of the left wrist. Comparison: 12/15/2017 Findings: No obvious acute fracture or dislocation is appreciated. No subcutaneous emphysema. No foreign body. Impression: No obvious acute fracture or dislocation. If the patient remains symptomatic consider reevaluation in 3-5 days including scaphoid views if necessary. Electronically Signed by Schuyler Burrell MD 04/12/2019 08:22 A
--- NOTE | 2019-04-12 08:44 | REP ---
Clinical: 07/16 fall. Technique: Axial images from the skull base to the vertex with coronal re-formations. Comparison: 06/25/2018 Findings: Age-related atrophy and microvascular ischemic changes are appreciated. The ventricles and sulci are symmetric. Poole-white differentiation is maintained. There is no evidence for acute intracranial hemorrhage, mass/mass effect, pathology or infarction. No extra-axial fluid collection. Calvarium is intact. Paranasal sinuses and mastoid air cells are clear. Impression: Age related atrophy and microvascular ischemic changes. No acute intracranial hemorrhage, infarction, or mass/mass effect. Electronically Signed by Schuyler Burrell MD 04/12/2019 08:36 A
[2019-04-12 08:45] LABS: HEMOGLOBIN 14.6 g/dl (13.5-17.5); MEAN CORPUSCULAR HEMOGLOBIN 31.2 pg (27.0-33.0); MEAN CORPUSCULAR VOLUME 91.9 fl (80.0-96.0); PLATELET COUNT, AUTOMATED 195 10^3/uL (150-450); RED BLOOD COUNT 4.68 10^6/uL (4.30-6.10); WHITE BLOOD COUNT 9.2 10^3/uL (4.0-10.0)
[2019-04-12] MEDS ORDERED: MORPHINE 2 MG/ML 1ML VIAL (J2270) IV PRN (08:45)
--- NOTE | 2019-04-12 08:49 | REP ---
Clinical: Trauma. Fall. Technique: Axial noncontrast images from the skull base to the thoracic inlet with coronal and sagittal re-formations. Comparison: Neck CT dated 12/30/2018. Findings: Age-related osteopenia and stable moderate/advanced multilevel degenerative disc osteophyte complexes primarily involving the C3-4 level with mild chronic retrolisthesis is unchanged. No acute fracture / compression injury or acute subluxation. Posterior elements and spinous processes are intact. Chronic focal canal stenosis at the C3-4 level unchanged. Impression: Moderate/advanced at the level degenerative spondylosis. No acute fracture / compression injury or acute subluxation. Electronically Signed by Schuyler Burrell MD 04/12/2019 08:40 A
[2019-04-12 09:08] LABS: BLOOD UREA NITROGEN 11 MG/DL (7-18); CALCIUM LEVEL 8.2 MG/DL (8.8-10.2); CARBON DIOXIDE LEVEL 22 MEQ/L (21-32); CHLORIDE LEVEL 108 MEQ/L (98-107); CK-MB VALUE MASS 2.2 NG/ML (<3.6); CPK CREATINE PHOSPHOKINASE 94 U/L (39-308); GLOMERULAR FILTRATION RATE > 60.0 (>49); GLUCOSE, FASTING 286 MG/DL (70-100); MB/CK RELATIVE INDEX 2.34 (< OR =4); POTASSIUM SERUM 4.2 MEQ/L (3.5-5.1); SODIUM LEVEL 137 MEQ/L (136-145); TROPONIN I < 0.02 NG/ML (< 0.10)
[2019-04-12 10:00] VITALS: BP 138/74
--- NOTE | 2019-04-12 15:51 | ECGEPIP ---
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
== END 2019-04-12 11:16 | disposition home or self-care (01) ==
LOC: M ED 06:54 → EDBD 06:54 → M ED 11:16
DX: S60.212A Contusion of left wrist, initial encounter (principal); W01.0XXA Fall on same level from slipping, tripping and stumbling without subsequent striking against object, initial encounter; Y92.019 Unspecified place in single-family (private) house as the place of occurrence of the external cause; R94.31 Abnormal electrocardiogram [ECG] [EKG]; I67.82 Cerebral ischemia; M25.78 Osteophyte, vertebrae; M85.88 Other specified disorders of bone density and structure, other site; M47.812 Spondylosis without myelopathy or radiculopathy, cervical region; I48.91 Unspecified atrial fibrillation; E11.9 Type 2 diabetes mellitus without complications; J44.9 Chronic obstructive pulmonary disease, unspecified; F17.210 Nicotine dependence, cigarettes, uncomplicated; Z91.013 Allergy to seafood; Z88.0 Allergy status to penicillin; Z88.4 Allergy status to anesthetic agent; Z88.6 Allergy status to analgesic agent; Z88.8 Allergy status to other drugs, medicaments and biological substances; Z79.51 Long term (current) use of inhaled steroids; Z79.82 Long term (current) use of aspirin; Z79.83 Long term (current) use of bisphosphonates; Z79.899 Other long term (current) drug therapy
CPT/HCPCS: 70450; 72125; 73110; 80048; 82550; 82553; 84484; 85027; 93005; 96374; 99285; J2270

== ENCOUNTER 2019-04-27 15:51 | Emergency (ER) | payer MEDICARE, MEDICAID ==
[~2019-04-27] VITALS: Ht 172.7 cm; Wt 73.1 kg
[~2019-04-27 15:51] MED LIST changes: -GLIM4TAB3 PO; +GLIM4TAB5 PO; -TRAZ-163 PO; +TRAZ-257 PO
[2019-04-27] MEDS ORDERED: GI COCKTAIL 50ML BTL(HYOSCYAMINE/MAALOX/LIDOCAINE VISCOUS)(1:3:1) PO ONE (16:30)
[2019-04-27] MEDS ORDERED: ASPIRIN 81 MG CHEW TABLET PO ONE (16:30)
[2019-04-27 16:40] LABS: BASO # 0.1 10^3/uL (0.0-0.2); BASO % 0.9 % (0.0-1.0); EOS # 0.2 10^3/uL (0.0-0.5); HEMATOCRIT 42.6 % (42.0-52.0); HEMOGLOBIN 14.6 g/dl (13.5-17.5); LYMPH # 3.5 10^3/uL (1.5-5.0); LYMPH % 31.8 % (24.0-44.0); MEAN CORPUSCULAR HEMOGLOBIN 31.1 pg (27.0-33.0); MEAN CORPUSCULAR HGB CONC 34.3 g/dl (32.0-36.5); MEAN CORPUSCULAR VOLUME 90.6 fl (80.0-96.0); MONO # 0.8 10^3/uL (0.0-0.8); MONO % 7.4 % (0.0-5.0); NEUTROPHILS # 6.3 10^3/uL (1.5-8.5); NEUTROPHILS % 57.6 % (36.0-66.0); PLATELET COUNT, AUTOMATED 236 10^3/uL (150-450); WHITE BLOOD COUNT 10.9 10^3/uL (4.0-10.0)
[2019-04-27] MEDS: MORPHINE 2 MG/ML 1ML VIAL (J2270) IV PRN ×2 (16:44→17:57)
[2019-04-27 16:51] LABS: INR 1.13; PROTHROMBIN TIME 14.2 SECONDS (11.8-14.0)
[2019-04-27 16:52] LABS: PARTIAL THROMBOPLASTIN TIME 29.7 SECONDS (25.0-38.4)
[2019-04-27] MEDS ORDERED: ISOVUE-370 76% 100ML VIAL (Q9967) As Ordered ONE (16:56)
[2019-04-27] MEDS ORDERED: ALBUTEROL SULFATE 2.5 MG/0.5 ML INH NEB SOLN INH ONE (17:00)
[2019-04-27] MEDS ORDERED: IPRATROPIUM 0.5MG/ALBUTEROL 2.5MG INH SOL UD 3ML (DUONEB)(J7620) NEB ONE (17:00)
[2019-04-27] MEDS ORDERED: methylPREDNISolone INJ 125 MG/2 ML VIAL (J2930) IV ONE (17:00)
[2019-04-27 17:02] LABS: ALBUMIN 3.8 GM/DL (3.2-5.2); ALT/SGPT 23 U/L (12-78); BILIRUBIN,DIRECT 0.2 MG/DL (0.0-0.2); BILIRUBIN,TOTAL 0.4 MG/DL (0.2-1.0); CK-MB VALUE MASS 3.8 NG/ML (<3.6); CPK CREATINE PHOSPHOKINASE 149 U/L (39-308); FREE T4 0.89 NG/DL (0.76-1.46); LIPASE 93 U/L (73-393); MB/CK RELATIVE INDEX 2.55 (< OR =4); TOTAL PROTEIN 7.3 GM/DL (6.4-8.2); TROPONIN I < 0.02 NG/ML (< 0.10)
--- NOTE | 2019-04-27 17:58 | REPVR ---
PROCEDURE INFORMATION: Exam: CT Angiography Chest With Contrast Exam date and time: 04/27/2019 5:00 PM Age: 64 years old Clinical indication: Chest pain TECHNIQUE: Imaging protocol: Computed tomographic angiography of the chest with intravenous contrast. 3D rendering: MIP and/or 3D reconstructed images were created by the technologist. Radiation optimization: All CT scans at this facility use at least one of these dose optimization techniques: automated exposure control; mA and/or kV adjustment per patient size (includes targeted exams where dose is matched to clinical indication); or iterative reconstruction. Contrast material: Isovue Thyroid: The bilateral thyroid lobes are unremarkable. Other technique: Mild aortic arch, branch, and descending thoracic aortic atherosclerotic calcification without ectasia. 370; Contrast volume: 75 ml; Contrast route: IV COMPARISON: CT ANGIO CHEST 08/21/2018 12:34 PM FINDINGS: Pulmonary arteries: Normal. No pulmonary emboli. Aorta: Unremarkable. No aortic aneurysm. No aortic dissection. Lungs: There is mild centrilobular emphysema bilaterally, most extensively in the upper lung zones. A 4.5 mm noncalcified pulmonary nodule is noted in the anterolateral basilar segment of the left lower lobe (LOC 189.23). New noncalcified superior segment lingular pulmonary nodule measuring 3.7 mm (LOC 132.23). Pleural space: Unremarkable. No pneumothorax. No pleural effusion. Heart: LAD and RCA calcified coronary atherosclerosis. Gallbladder and bile ducts: The gallbladder is surgically absent, with metallic clips in the gallbladder fossa. Kidneys and ureters: LEFT renal upper pole calyceal calculi, the largest in the medial upper pole measures 7.3 mm, incompletely imaged. Lymph nodes: Unremarkable. No enlarged lymph nodes. Bones/joints: Thoracic spine vertebral body marginal osteophytes are noted at multiple levels. Soft tissues: Unremarkable. IMPRESSION: 1. No pulmonary embolism identified. 2. No thoracic aortic aneurysm or dissection identified. 3. Pulmonary emphysema. 4. Stable LEFT lower lobe lateral basilar pulmonary noncalcified nodule. 5. Interval noncalcified lingular pulmonary nodule. For patients at low risk (minimal or absent history of smoking and of other known risk factors), no routine follow-up is indicated. For patients at high risk (history of smoking or of other known risk factors), consider optional CT at 12 months. (Andrez et al., Fleischner Society, 2017). 6. Coronary atherosclerosis. 7. Prior cholecystectomy. 8. LEFT renal calyceal lithiasis. Electronically signed by: Santos Atkins On 04/27/2019 17:58:44 PM
[2019-04-27] MEDS ORDERED: CYCL10TA PO (18:39)
[2019-04-27] MEDS ORDERED: HYDR-3363 PO (18:39)
[2019-04-27] MEDS ORDERED: RAMI1CAP21 PO (18:39)
--- NOTE | 2019-04-27 18:40 | REP ---
CHEST: Single view. There is no evidence of acute infiltrate. No pleural effusion is seen. The heart is normal in size. The mediastinal silhouette is unremarkable. The visualized osseous structures are intact. There is calcification of the thoracic aorta. IMPRESSION: No acute pulmonary disease. Electronically Signed by Tulio Poole MD 04/28/2019 07:18 P
[2019-04-27 19:15] VITALS: BP 146/84
--- NOTE | 2019-04-28 08:51 | ED PDOC ---
Post-Departure Follow-Up dr carmen faxed formal report of cta chest for fu Amrit Haley MD Apr 28, 2019 08:51
--- NOTE | 2019-04-29 09:51 | ECGEPIP ---
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
== END 2019-04-27 20:35 | disposition left against medical advice (07) ==
LOC: M ED 15:51
DX: R07.9 Chest pain, unspecified (principal); R00.0 Tachycardia, unspecified; R11.2 Nausea with vomiting, unspecified; R42 Dizziness and giddiness; R91.1 Solitary pulmonary nodule; I25.10 Atherosclerotic heart disease of native coronary artery without angina pectoris; J43.0 Unilateral pulmonary emphysema [MacLeod's syndrome]; N20.0 Calculus of kidney; Z53.20 Procedure and treatment not carried out because of patient's decision for unspecified reasons; I11.0 Hypertensive heart disease with heart failure; E11.9 Type 2 diabetes mellitus without complications; G47.30 Sleep apnea, unspecified; F41.9 Anxiety disorder, unspecified; F33.9 Major depressive disorder, recurrent, unspecified; Z90.49 Acquired absence of other specified parts of digestive tract; Z91.013 Allergy to seafood; Z88.0 Allergy status to penicillin; Z88.4 Allergy status to anesthetic agent; Z88.6 Allergy status to analgesic agent; Z88.8 Allergy status to other drugs, medicaments and biological substances; Z79.51 Long term (current) use of inhaled steroids; Z79.82 Long term (current) use of aspirin; Z79.83 Long term (current) use of bisphosphonates; Z79.899 Other long term (current) drug therapy
CPT/HCPCS: 71045; 71275; 80047; 80076; 82550; 82553; 83690; 84439; 84443; 84484; 85025; 85610; 85730; 93005; 93041; 94640; 94760; 96374; 96375; 99285; J2270; J2930; Q9967

== ENCOUNTER 2019-05-20 20:41 | Emergency (ER) | payer MEDICARE, MEDICAID ==
[~2019-05-20] VITALS: Ht 172.7 cm; Wt 73.1 kg
[~2019-05-20 20:41] MED LIST changes: +CYCL10TA PO
[2019-05-20 21:39] LABS: INFLUENZA A AMPLIFICATION NEGATIVE (NEGATIVE); INFLUENZA B AMPLIFICATION NEGATIVE (NEGATIVE)
[2019-05-21 00:30] VITALS: BP 128/84
[2019-05-21] MEDS ORDERED: PRED20TA PO (01:09)
[2019-05-21] MEDS ORDERED: ALBUTEROL 90 MCG/ACT 8GM HFA INHALER INH ONE (01:15)
[2019-05-21] MEDS ORDERED: predniSONE 20 MG TAB PO ONE (01:15)
--- NOTE | 2019-05-21 07:41 | REP ---
Portable chest, 11:42 p.m., single AP view with the patient upright: Comparison is 04/27/2019. The lung forte are clear. The cardiac size is normal. The yonas, mediastinum, and skeletal structures are unremarkable. Impression: Negative portable chest. There is no interval change. Electronically Signed by Tluio Tirado MD 05/21/2019 07:32 A
== END 2019-05-21 01:29 | disposition home or self-care (01) ==
LOC: M ED 20:41
DX: J44.0 Chronic obstructive pulmonary disease with (acute) lower respiratory infection (principal); R50.9 Fever, unspecified; F41.1 Generalized anxiety disorder; I11.9 Hypertensive heart disease without heart failure; F17.210 Nicotine dependence, cigarettes, uncomplicated; Z88.0 Allergy status to penicillin; Z88.6 Allergy status to analgesic agent; Z88.8 Allergy status to other drugs, medicaments and biological substances; Z91.013 Allergy to seafood; Z79.02 Long term (current) use of antithrombotics/antiplatelets; Z79.51 Long term (current) use of inhaled steroids; Z79.83 Long term (current) use of bisphosphonates; Z79.899 Other long term (current) drug therapy

== ENCOUNTER 2019-06-06 19:31 | Emergency (ER) | payer MEDICARE, MEDICAID ==
[~2019-06-06 19:31] MED LIST changes: -VENTAER; +VENTAER INH
[2019-06-06] MEDS ORDERED: GI COCKTAIL 50ML BTL(HYOSCYAMINE/MAALOX/LIDOCAINE VISCOUS)(1:3:1) PO ONE (21:15)
[2019-06-06] MEDS ORDERED: SUCRALFATE 1 GM TAB PO ONE (22:00)
[2019-06-06] MEDS ORDERED: MAGICMW SSP (22:23)
[2019-06-06 22:26] VITALS: BP 155/69
--- NOTE | 2019-06-07 09:44 | REP ---
A P and lateral chest with the patient sitting: Comparison is 05/20/2019. The lung forte are clear. The cardiac size is normal. The yonas, mediastinum, and skeletal structures are unremarkable. Impression: Negative AP and lateral chest. There is no interval change. Electronically Signed by Tulio Tirado MD 06/07/2019 09:35 A
== END 2019-06-06 22:51 | disposition home or self-care (01) ==
LOC: EDBD 19:31 → M ED 19:31
DX: S00.502A Unspecified superficial injury of oral cavity, initial encounter (principal); X58.XXXA Exposure to other specified factors, initial encounter; K21.9 Gastro-esophageal reflux disease without esophagitis; J02.9 Acute pharyngitis, unspecified; I11.0 Hypertensive heart disease with heart failure; E78.5 Hyperlipidemia, unspecified; G20 Parkinson's disease; J45.909 Unspecified asthma, uncomplicated; J44.1 Chronic obstructive pulmonary disease with (acute) exacerbation; G47.30 Sleep apnea, unspecified; E11.9 Type 2 diabetes mellitus without complications; F41.9 Anxiety disorder, unspecified; F33.9 Major depressive disorder, recurrent, unspecified; F17.210 Nicotine dependence, cigarettes, uncomplicated; Z88.0 Allergy status to penicillin; Z88.1 Allergy status to other antibiotic agents; Z88.8 Allergy status to other drugs, medicaments and biological substances; Z91.013 Allergy to seafood; Z79.01 Long term (current) use of anticoagulants; Z79.51 Long term (current) use of inhaled steroids; Z79.899 Other long term (current) drug therapy

== ENCOUNTER 2019-06-11 21:21 | Emergency (ER) | payer MEDICARE, MEDICAID ==
[~2019-06-11] VITALS: Ht 172.7 cm; Wt 72.3 kg
[~2019-06-11 21:21] MED LIST changes: +MAGICMW SSP
[2019-06-11] MEDS ORDERED: KETOROLAC 60 MG/2 ML VIAL (J1885) IM ONE (22:30)
--- NOTE | 2019-06-11 22:37 | REPVR ---
PROCEDURE INFORMATION: Exam: CT Head Without Contrast Exam date and time: 06/11/2019 10:07 PM Age: 64 years old Clinical indication: Injury or trauma; Fall; Initial encounter; Blunt trauma (contusions or hematomas) TECHNIQUE: Imaging protocol: Computed tomography of the head without contrast. Radiation optimization: All CT scans at this facility use at least one of these dose optimization techniques: automated exposure control; mA and/or kV adjustment per patient size (includes targeted exams where dose is matched to clinical indication); or iterative reconstruction. COMPARISON: CT Head without contrast 2019-04-12 08:15 FINDINGS: Brain: Diffuse mild cerebral age related volume loss. Mild patchy low attenuation in the white matter compatible with mild chronic small vessel ischemic disease. No midline shift, mass, fluid collection, or evidence of hemorrhage. Ventricles: Ventricular enlargement proportional to volume loss. Bones/joints: Unremarkable. No acute fracture. Sinuses: Visualized sinuses are unremarkable. No fluid levels. Mastoid air cells: Visualized mastoid air cells are well aerated. Soft tissues: Unremarkable. IMPRESSION: Mild involutional changes, no acute intracranial abnormality. Electronically signed by: Orlando Quigley On 06/11/2019 22:37:25 PM
[2019-06-11] MEDS ORDERED: IPRATROPIUM 0.5MG/ALBUTEROL 2.5MG INH SOL UD 3ML (DUONEB)(J7620) NEB ONE (22:45)
--- NOTE | 2019-06-11 22:49 | REPVR ---
PROCEDURE INFORMATION: Exam: CT Chest Without Contrast Exam date and time: 06/11/2019 10:07 PM Age: 64 years old Clinical indication: Injury or trauma; Fall; Initial encounter; Blunt trauma (contusions or hematomas) TECHNIQUE: Imaging protocol: Computed tomography of the chest without contrast. 3D rendering: MIP and/or 3D reconstructed images were created by the technologist. Radiation optimization: All CT scans at this facility use at least one of these dose optimization techniques: automated exposure control; mA and/or kV adjustment per patient size (includes targeted exams where dose is matched to clinical indication); or iterative reconstruction. COMPARISON: CT ANGIO CHEST 2019-04-27 17:05 FINDINGS: Lungs: Moderate centrilobular pulmonary emphysema. Small area of new interstitial opacity in the right upper lobe measuring 2 cm. Likely infectious or inflammatory, recommend follow-up. Pleural space: Unremarkable. No pneumothorax. No pleural effusion. Heart: Unremarkable. No cardiomegaly. No pericardial effusion. Aorta: Unremarkable. No aortic aneurysm. Lymph nodes: Unremarkable. No enlarged lymph nodes. Kidneys and ureters: Nephrolithiasis. Stomach and bowel: Constipation. Bones/joints: Mild levoconvex thoracic curvature. Soft tissues: Unremarkable. Other findings: Mild chronic T12 anterior wedging deformity. IMPRESSION: 1. No acute posttraumatic abnormality. 2. Moderate centrilobular pulmonary emphysema. 3. Small area of new interstitial opacity in the right upper lobe measuring 2 cm. Likely infectious or inflammatory, recommend follow-up. Electronically signed by: Orlando Quigley On 06/11/2019 22:49:15 PM
[2019-06-11 22:51] VITALS: BP 139/86
--- NOTE | 2019-06-12 11:11 | ED PDOC ---
Post-Departure Follow-Up dr carmen faxed formal report of ct chest for fu Amrit Haley MD Jun 12, 2019 11:11
== END 2019-06-11 23:12 | disposition home or self-care (01) ==
LOC: M ED 21:21
DX: S20.219A Contusion of unspecified front wall of thorax, initial encounter (principal); W00.9XXA Unspecified fall due to ice and snow, initial encounter; Y92.410 Unspecified street and highway as the place of occurrence of the external cause; Y93.9 Activity, unspecified; Y99.9 Unspecified external cause status; R91.8 Other nonspecific abnormal finding of lung field; I48.91 Unspecified atrial fibrillation; E11.9 Type 2 diabetes mellitus without complications; R56.9 Unspecified convulsions; Z86.73 Personal history of transient ischemic attack (TIA), and cerebral infarction without residual deficits; Z85.818 Personal history of malignant neoplasm of other sites of lip, oral cavity, and pharynx; Z86.718 Personal history of other venous thrombosis and embolism; F17.200 Nicotine dependence, unspecified, uncomplicated; Z79.82 Long term (current) use of aspirin; Z79.84 Long term (current) use of oral hypoglycemic drugs; Z79.899 Other long term (current) drug therapy; Z88.0 Allergy status to penicillin; Z88.6 Allergy status to analgesic agent; Z88.8 Allergy status to other drugs, medicaments and biological substances; Z91.013 Allergy to seafood
CPT/HCPCS: 70450; 71250; 94640; 96372; 99284; J1885

== ENCOUNTER 2019-06-18 18:40 | Emergency (ER) | payer MEDICARE, MEDICAID ==
[~2019-06-18] VITALS: Ht 172.7 cm; Wt 71.9 kg
[2019-06-18 19:43] LABS: BASO # 0.1 10^3/uL (0.0-0.2); BASO % 1.2 % (0.0-1.0); EOS # 0.3 10^3/uL (0.0-0.5); HEMATOCRIT 45.1 % (42.0-52.0); HEMOGLOBIN 15.6 g/dl (13.5-17.5); LYMPH # 2.9 10^3/uL (1.5-5.0); LYMPH % 34.2 % (24.0-44.0); MEAN CORPUSCULAR HEMOGLOBIN 31.4 pg (27.0-33.0); MEAN CORPUSCULAR HGB CONC 34.6 g/dl (32.0-36.5); MEAN CORPUSCULAR VOLUME 90.7 fl (80.0-96.0); MONO # 0.7 10^3/uL (0.0-0.8); MONO % 7.8 % (0.0-5.0); NEUTROPHILS # 4.5 10^3/uL (1.5-8.5); NEUTROPHILS % 53.4 % (36.0-66.0); PLATELET COUNT, AUTOMATED 257 10^3/uL (150-450); RED BLOOD COUNT 4.97 10^6/uL (4.30-6.10); WHITE BLOOD COUNT 8.4 10^3/uL (4.0-10.0)
[2019-06-18 20:18] LABS: ALBUMIN 3.9 GM/DL (3.2-5.2); ALT/SGPT 30 U/L (12-78); BILIRUBIN,DIRECT 0.1 MG/DL (0.0-0.2); BILIRUBIN,TOTAL 0.3 MG/DL (0.2-1.0); BLOOD UREA NITROGEN 11 MG/DL (7-18); CALCIUM LEVEL 9.4 MG/DL (8.8-10.2); CARBON DIOXIDE LEVEL 28 MEQ/L (21-32); CHLORIDE LEVEL 97 MEQ/L (98-107); CK-MB VALUE MASS 3.4 NG/ML (<3.6); CPK CREATINE PHOSPHOKINASE 115 U/L (39-308); CREATININE FOR GFR 0.91 MG/DL (0.70-1.30); GLOMERULAR FILTRATION RATE > 60.0 (>49); GLUCOSE, FASTING 414 MG/DL (70-100); MB/CK RELATIVE INDEX 2.96 (< OR =4); NT-PRO BNP 9 PG/ML (<125); POTASSIUM SERUM 3.6 MEQ/L (3.5-5.1); SODIUM LEVEL 132 MEQ/L (136-145); TOTAL PROTEIN 7.7 GM/DL (6.4-8.2); TROPONIN I < 0.02 NG/ML (< 0.10)
--- NOTE | 2019-06-18 21:26 | ECGEPIP ---
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
[2019-06-18] MEDS ORDERED: NS 500 ML IV ONE (21:45)
[2019-06-18] MEDS ORDERED: ALBUTEROL SULFATE 2.5 MG/0.5 ML INH NEB SOLN INH ONE (21:45)
[2019-06-18] MEDS ORDERED: NORC1TAB7 PO (22:14)
[2019-06-18] MEDS ORDERED: PRED10TA2 PO (22:14)
[2019-06-18] MEDS ORDERED: NORCO, ANEXSIA 5/325MG TABLET (HYDROcodone/ACETAMINOPHEN) PO ONE (22:15)
[2019-06-18] MEDS ORDERED: dexameTHASONE 20 MG/5 ML VIAL (J1100) IV ONE (22:15)
[2019-06-18 22:18] VITALS: BP 133/74
[2019-06-18] MEDS ORDERED: HumaLOG INSULIN (NovoLOG) PER UNIT SC STA (22:19)
--- NOTE | 2019-06-19 08:28 | REP ---
Portable chest x-ray: Sitting AP view. History: Short of breath. Comparison chest x-ray: June 06, 2019 Findings: Monitoring electrodes are seen. Lungs are well inflated and clear. The pleural angles are sharp. Heart size is normal. Coronary artery graft material is visible along the left heart border. The aorta is calcific. Impression: No active disease. Electronically Signed by Gerardo Key MD 06/19/2019 08:20 A
== END 2019-06-18 22:57 | disposition home or self-care (01) ==
LOC: M ED 18:40
DX: J20.9 Acute bronchitis, unspecified (principal); R94.31 Abnormal electrocardiogram [ECG] [EKG]; I11.9 Hypertensive heart disease without heart failure; J44.9 Chronic obstructive pulmonary disease, unspecified; K21.9 Gastro-esophageal reflux disease without esophagitis; Z88.0 Allergy status to penicillin; Z88.6 Allergy status to analgesic agent; Z88.8 Allergy status to other drugs, medicaments and biological substances; Z91.013 Allergy to seafood; Z79.51 Long term (current) use of inhaled steroids; Z79.84 Long term (current) use of oral hypoglycemic drugs; Z79.891 Long term (current) use of opiate analgesic; Z79.899 Other long term (current) drug therapy
CPT/HCPCS: 71045; 80048; 80076; 82550; 82553; 83880; 84484; 85025; 93005; 93041; 94640; 94760; 96361; 96374; 99285; J1100

== ENCOUNTER 2019-06-28 14:29 | Inpatient (IN) | payer MEDICARE, MEDICAID ==
[~2019-06-28] VITALS: Ht 172.7 cm; Wt 73.0 kg
[2019-06-28] MEDS: FOLIC ACID 1 MG TAB PO SCH (09:00)
[2019-06-28] MEDS: MULTIVITAMINS/MINERALS THERAP 1 TAB PO SCH (09:00)
[~2019-06-28 14:29] MED LIST changes: +NORC1TAB7 PO; +PRED10TA2 PO
[2019-06-28 15:27] LABS: BASO % 0.2 % (0.0-1.0); EOS % 0.1 % (0.0-3.0); HEMATOCRIT 42.5 % (42.0-52.0); HEMOGLOBIN 14.8 g/dl (13.5-17.5); LYMPH % 15.9 % (24.0-44.0); MEAN CORPUSCULAR HEMOGLOBIN 31.3 pg (27.0-33.0); MEAN CORPUSCULAR HGB CONC 34.8 g/dl (32.0-36.5); MEAN CORPUSCULAR VOLUME 89.9 fl (80.0-96.0); MONO # 0.6 10^3/uL (0.0-0.8); MONO % 5.2 % (0.0-5.0); NEUTROPHILS # 9.6 10^3/uL (1.5-8.5); NEUTROPHILS % 76.9 % (36.0-66.0); PLATELET COUNT, AUTOMATED 223 10^3/uL (150-450); RED BLOOD COUNT 4.73 10^6/uL (4.30-6.10); WHITE BLOOD COUNT 12.4 10^3/uL (4.0-10.0)
[2019-06-28] MEDS ORDERED: NS 1,000 ML IV ONE ×2 (15:45→18:00)
[2019-06-28] MEDS ORDERED: POTASSIUM CHLORIDE 10 MEQ SR TABLET PO ONE (15:45)
[2019-06-28 16:08] LABS: ALBUMIN 3.9 GM/DL (3.2-5.2); ALT/SGPT 30 U/L (12-78); BILIRUBIN,DIRECT 0.1 MG/DL (0.0-0.2); BILIRUBIN,TOTAL 0.5 MG/DL (0.2-1.0); CPK CREATINE PHOSPHOKINASE 99 U/L (39-308); DIGOXIN LEVEL 0.4 NG/ML (0.5-2.0); LIPASE 65 U/L (73-393); MAGNESIUM LEVEL 2.4 MG/DL (1.8-2.4); MB/CK RELATIVE INDEX 3.03 (< OR =4); TROPONIN I < 0.02 NG/ML (< 0.10)
[2019-06-28 16:42] LABS: HEMOGLOBIN A1c 13.2 %
[2019-06-28] MEDS ORDERED: HYDR-3715 PO (16:44)
[2019-06-28] MEDS ORDERED: PRED10TA2 PO (16:44)
[2019-06-28] MEDS ORDERED: GABA-843 PO (16:44)
[2019-06-28] MEDS ORDERED: BASA100I SC (16:44)
[2019-06-28 16:52] LABS: ACETAMINOPHEN LEVEL < 2.0 UG/ML (10.0-30.0); ACETONE/KETONE 2.18 MG/DL (<2.81); ETHYL ALCOHOL (ETHANOL) < 0.003 % (0.000-0.010); SALICYLATE LEVEL < 1.7 MG/DL (5.0-30.0)
[2019-06-28 17:09] LABS: AMPHETAMINES LEVEL URINE NEGATIVE (NEGATIVE); BARBITURATES URINE NEGATIVE (NEGATIVE); BENZODIAZEPINES URINE NEGATIVE (NEGATIVE); CANNABINOIDS URINE NEGATIVE (NEGATIVE); COCAINE METABOLITE URINE NEGATIVE (NEGATIVE); METHADONE URINE NEGATIVE (NEGATIVE); OPIATES URINE POSITIVE (NEGATIVE); PHENCYCLIDINE URINE NEGATIVE (NEGATIVE)
[2019-06-28] MEDS ORDERED: GLUCOSE 4 GM CHEW TABLET PO PRN (17:30)
[2019-06-28] MEDS ORDERED: DEXTROSE 50% 50 ML SYRINGE IV PRN (17:30)
[2019-06-28] MEDS ORDERED: GLUCAGON FOR INJ 1 MG VIAL (J1610) SC PRN (17:30)
[2019-06-28] MEDS ORDERED: GLIMEPIRIDE 2 MG TAB PO SCH (17:30)
[2019-06-28] MEDS: HumaLOG INSULIN (NovoLOG) PER UNIT SC SCH ×2 (17:30→21:17)
--- NOTE | 2019-06-28 17:38 | HPEPDOC ---
General Date of Admission 06/28/19 Date of Service: Jun 28, 2019 Chief Complaint The patient is a 64-year-old male admitted with a reason for visit of Cold Symptoms. Source: Patient Exam Limitations: No limitations Timing/Duration: Day(s) Severity: Moderate Associated Symptoms: Cough, Loss of appetite History of Present Illness Patient is 64 years old male with past medical history type 2 diabetes, atrial fibrillation, COPD with emphysema presented hospital with dry cough and general ized weakness. Patient stated that he has been having these symptoms for a few weeks. Also, he stated that he has a poor oral intake. In emergency room patient was found to have wbc 12.4, blood glucose level of 332, anion gap of 16, potassium 2.7. Respiratory panel was negative. Chest x-ray was negative for acute infiltrate. Of note patient stated that he drank alcohol yesterday. Home Medications Scheduled Apixaban (Eliquis) 5 Mg Tab, 5 MG PO BID, (Reported) Aspirin (Aspirin EC) 81 Mg Tab, 81 MG PO DAILY, (Reported) Cyclobenzaprine HCl (Cyclobenzaprine HCl) 10 Mg Tablet, 10 MG PO TID, (Reported) Digoxin (Digoxin) 125 Mcg Tab, 125 MCG PO DAILY, (Reported) Diltiazem HCl (Diltiazem 24Hr ER) 240 Mg Cap, 240 MG PO DAILY, (Reported) Esomeprazole Magnesium (Esomeprazole Magnesium) 40 Mg Cap, 40 MG PO DAILY, (Reported) Fluoxetine Hcl (Fluoxetine HCl) 10 Mg Cap, 10 MG PO DAILY, (Reported) Gabapentin (Gabapentin) 300 Mg Capsule, 300 MG PO TID, (Reported) Glimepiride (Glimepiride) 2 Mg Tablet, 2 MG PO BID, (Reported) Hydroxyzine HCl (Hydroxyzine HCl) 25 Mg Tablet, 25 MG PO TID, (Reported) Insulin Glargine,Hum.rec.anlog (Basaglar Kwikpen U-100) 100 Unit/1 Ml Insuln.pen, 30 UNIT SC DAILY, (Reported) Ipratropium/Albuterol Sulfate (Combivent Respimat 20-100 Mcg) 4 Gm Mist.inhal, 1 PUFF INH QID, (Reported) Loratadine (Loratadine) 10 Mg Tab, 10 MG PO DAILY, (Reported) Prednisone (Prednisone) 10 Mg Tablet, 20 MG PO DAILY, (Reported) Ramipril (Ramipril) 1.25 Mg Capsule, 1.25 MG PO DAILY, (Reported) Rosuvastatin Calcium (Crestor) 5 Mg Tab, 5 MG PO QHS, (Reported) Salmeterol/Fluticasone (Advair 500-50 Diskus) 28 Puff/Inhaler Aerp, 1 PUFF INH BID, (Reported) Topiramate (Topiramate) 50 Mg Tab, 50 MG PO BID, (Reported) Trazodone HCl (Trazodone HCl) 100 Mg Tablet, 100 MG PO QHS, (Reported) Scheduled PRN Albuterol Sulfate (Ventolin Hfa) 108 Mcg/Act Aer, 2 PUFF INH TIDP PRN for WHEEZING, (Reported) Hydrocodone/Acetaminophen (Hydrocodone-Acetamin 5-325 mg) 1 Each Tablet, 1 TAB PO BID PRN for pain, (Reported) Nitroglycerin (Nitrostat) 0.4 Mg Subl, 0.4 MG SL NITRO PRN for CHEST PAIN, (Reported) Allergies Coded Allergies: FISH (Verified Allergy, Unknown, 03/12/19) Penicillins (Verified Allergy, Unknown, 03/12/19) acetaminophen (Verified Allergy, Unknown, 06/18/19) HAS REFUSED APAP INPAST HOWEVER HAS RECEIVED NORCO/VICODIN MYLTIPLE TIMES w/o PROBLEM chlorpromazine (Verified Allergy, Unknown, 03/12/19) diphenhydramine (Verified Allergy, Unknown, 03/12/19) ibuprofen (Verified Allergy, Unknown, 03/12/19) lithium (Verified Allergy, Unknown, 03/12/19) paroxetine (Verified Allergy, Unknown, 03/12/19) thioridazine (Verified Allergy, Unknown, 03/12/19) Past Medical History Medical History COPD, hypertension, diabetes mellitus, CAD, atrial fibrillation on eliquis, chronic back pain, seizure disorder, and Parkinson's disease Surgical History 1. Appendectomy. 2. Bilateral foot surgery. 3. Cholecystectomy. 4. Gastrectomy. Family History I personally reviewed family history and found not pertinent. Social History * Smoker: current smoker, greater than 1 pack/day Alcohol: occationally Drugs: denies A-FIB/CHADSVASC A-FIB History Current/History of A-Fib/PAF?: Yes Current PO Anticoag Therapy: Yes Review of Systems Constitutional: Reports: Weakness; Denies: Chills, Fever Eyes: Denies: Pain, Vision change ENT: Denies: Head Aches Skin: Denies: Rash, Lesions Pulmonary: Reports: Cough Cardiovascular: Denies: Chest Pain, Palpitations Gastrointestinal: Denies: Nausea, Vomiting Genitourinary: Reports: Frequency; Denies: Dysuria Hematologic: Denies: Bruising, Bleeding Excessively Endocrine: Reports: Polydipsia, Polyuria Musculoskeletal: Reports: Back Pain Neurological: Reports: Change in speech; Denies: Weakness Psych: Reports: Mood Normal Physical Examination General Exam: Positive: Alert, Cooperative, Mild Distress Eye Exam: Positive: PERRLA ENT Exam: Positive: Atraumatic Neck Exam: Positive: Supple; Negative: JVD Chest Exam: Positive: Rhonchi Heart Exam: Positive: Irregular Rhythm Telemetry: Positive: Atrial fibrillation Abdomen Exam: Positive: Normal bowel sounds; Negative: Tenderness Extremity Exam: Positive: Clubbing; Negative: Cyanosis Neuro Exam: Positive: Normal Speech, Cranial Nerves 3-12 NL Psych Exam: Positive: Mental status NL Vital Signs Vital Signs Date Time Temp Pulse Resp B/P (MAP) Pulse Ox O2 Delivery O2 Flow Rate FiO2 06/28/19 16:45 164/83 (110) 06/28/19 16:44 75 97 06/28/19 15:17 Room Air 06/28/19 14:30 97.7 22 Laboratory Data Labs 24H Laboratory Tests 2 06/28/19 15:02: Estimated Mean Plasma Glucose 332H, Hemoglobin A1c 13.2 06/28/19 15:03: Immature Granulocyte % (Auto) 1.7, Neutrophils (%) (Auto) 76.9H, Lymphocytes (%) (Auto) 15.9L, Monocytes (%) (Auto) 5.2H, Eosinophils (%) (Auto) 0.1, Basophils (%) (Auto) 0.2, Neutrophils # (Auto) 9.6H, Lymphocytes # (Auto) 2.0, Monocytes # (Auto) 0.6, Eosinophils # (Auto) 0.0, Basophils # (Auto) 0.0, Nucleated Red Blood Cells % (auto) 0.0, Magnesium Level 2.4, Total Bilirubin 0.5, Direct Bilirubin 0.1, Aspartate Amino Transf (AST/SGOT) 10, Alanine Aminotransferase (ALT/SGPT) 30, Alkaline Phosphatase 94, Total Creatine Kinase 99, Creatine Kinase MB 3.0, Creatine Kinase MB Relative Index 3.03, Troponin I < 0.02, Total Protein 8.0, Albumin 3.9, Albumin/Globulin Ratio 0.95L, Lipase 65L, Digoxin Level 0.4L, Salicylates Level < 1.7L, Acetaminophen Level < 2.0L, Ethyl Alcohol Level < 0.003, B-Hydroxybutyrate 2.18 06/28/19 15:04: Lactic Acid Level 3.3*H 06/28/19 15:30: POC Glucose (Misc Panel) 363H, POC Sodium (Misc Panel) 139, POC Potassium (Misc Panel) 2.7*L, POC Chloride (Misc Panel) 104, POC Total CO2 (Misc Panel) 19.0L, POC Blood Urea Nitrogen (Misc Panel 8, POC Ionized Calcium (Misc Panel) 4.2L, POC Creatinine (Misc Panel) 0.3L, POC Hematocrit (Misc Panel) 34.0L 06/28/19 16:28: Urine Color STRAW, Urine Appearance CLEAR, Urine pH 7.0, Urine Specific [place] 1.032, Urine Protein NEGATIVE, Urine Glucose (UA) 3+H, Urine Ketones TRACEH, Urine Blood NEGATIVE, Urine Nitrite NEGATIVE, Urine Bilirubin NEGATIVE, Urine Urobilinogen 0.2, Urine Leukocyte Esterase NEGATIVE, Urine WBC (Auto) 0, Urine RBC (Auto) 0, Urine Hyaline Casts (Auto) 0, Urine Bacteria (Auto) NEGATIVE, Urine Squamous Epithelial Cells 0, Urine Sperm (Auto) , Urine Opiates Screen POSITIVEH, Urine Methadone Screen NEGATIVE, Urine Barbiturates Screen NEGATIVE, Urine Phencyclidine Screen NEGATIVE, Urine Amphetamines Screen NEGATIVE, Urine Benzodiazepines Screen NEGATIVE, Urine Cocaine Metabolite Screen NEGATIVE, Urine Cannabinoids Screen NEGATIVE 06/28/19 16:40: POC pH (Misc Panel) 7.440, POC Base Excess (Misc Panel) 0.0, POC Saturated Percent O2 (Misc) 98, POC pO2 (Misc Panel) 96.0, POC pCO2 (Misc Panel) 35.6, POC HCO3 (Misc Panel) 24.2, POC Total CO2 (Misc Panel) 25.0 CBC/BMP Laboratory Tests 06/28/19 15:03 Microbiology Microbiology 3/15/20 Blood Culture, Received Pending 06/28/19 Respiratory Virus Panel (PCR) (TASHI) - Final, Complete 06/28/19 Blood Culture, Received Pending Assessment/Plan Patient is 64 years old male with past medical history type 2 diabetes, atrial fibrillation, COPD with emphysema presented hospital with dry cough and generalized weakness. Patient stated that he has been having these symptoms for a few weeks. Also, he stated that he has a poor oral intake. In emergency room patient was found to have wbc 12.4, blood glucose level of 332, anion gap of 16, potassium 2.7. Respiratory panel was negative. Chest x-ray was negative for acute infiltrate. Of note patient stated that he drank alcohol yesterday. Problems (1) Diabetes mellitus with ketoacidosis, uncontrolled Status: Acute Problem Text: Patient developed most likely alcoholic ketoacidosis superimposed with hyperglycemia Patient has increased anion gap of 16 and lactic acidosis We'll check ketones in the urine and in serum Levemir 20 units twice a day. We will replace potassium before insulin BMP every 4 hours Insulin sliding scale Patient is able to eat. Diabetes diet IV fluid ABG (2) A-fib Status: Acute Problem Text: Heart rate is under control Continue oral targeted anticoagulation (3) Metabolic acidosis due to diabetes mellitus Status: Acute Problem Text: Most likely Secondary to alcoholic/diabetes ketoacidosis Continue to monitor IV hydration, insulin (4) Acute bronchitis Status: Acute Problem Text: Respiratory panel negative. Patient afebrile, does not have any sputum production. Patient has mild leukocytosis most likely reactive Chest x-ray showed no acute infiltrate. I will hold antibiotics for now Continue inhalers Patient is active smoker, smokes more than 1 pack a day (5) Hypokalemia Status: Acute Problem Text: Replacement with by mouth and IV (6) Generalized weakness Status: Chronic Problem Text: PT/OT evaluation (7) Hypertensive urgency Status: Acute Problem Text: Hydralazine IV when necessary Continue home cardioprotective medications (8) ETOH abuse Status: Chronic Problem Text: CIWA protocol Plan / VTE VTE Prophylaxis Ordered?: Yes IGNACIA SANCHEZ DO Jun 28, 2019 17:37
[2019-06-28] MEDS ORDERED: HumuLIN R (REGULAR) INSULIN (NovoLIN R) **100U/ML** PER UNIT IV SCH (18:00)
[2019-06-28] MEDS ORDERED: NORCO, ANEXSIA 5/325MG TABLET (HYDROcodone/ACETAMINOPHEN) PO PRN (18:00)
[2019-06-28] MEDS ORDERED: NITROGLYCERIN 0.4 MG SUBL TABLET SL PRN (18:00)
[2019-06-28] MEDS ORDERED: ALBUTEROL 90 MCG/ACT 8GM HFA INHALER INH PRN (18:00)
[2019-06-28] MEDS ORDERED: hydrALAZINE INJ 20 MG/ML VIAL IV PRN (18:15)
[2019-06-28] MEDS ORDERED: LORazepam 2 MG TAB PO PRN (18:30)
[2019-06-28 18:47] LABS: ACETONE/KETONE 2.76 MG/DL (<2.81); BLOOD UREA NITROGEN 10 MG/DL (7-18); CALCIUM LEVEL 8.2 MG/DL (8.8-10.2); CARBON DIOXIDE LEVEL 25 MEQ/L (21-32); CHLORIDE LEVEL 105 MEQ/L (98-107); CREATININE FOR GFR 0.63 MG/DL (0.70-1.30); GLOMERULAR FILTRATION RATE > 60.0 (>49); GLUCOSE, FASTING 266 MG/DL (70-100); POTASSIUM SERUM 3.3 MEQ/L (3.5-5.1); SODIUM LEVEL 136 MEQ/L (136-145)
[2019-06-28] MEDS: KCL 40MEQ in NS 1000ML 1,000 ML IV SCH (19:26)
[2019-06-28] MEDS ORDERED: IPRATROPIUM 0.5MG/ALBUTEROL 2.5MG INH SOL UD 3ML (DUONEB)(J7620) INH SCH (21:00)
[2019-06-28] MEDS ORDERED: LEVEMIR (INSULIN DETEMIR) 1 UNITS/0.01ML SC SCH (21:00)
[2019-06-28 21:47] LABS: OSMOLALITY SERUM 303 MOSM/KG (280-301)
[2019-06-28 21:59] VITALS: BP 148/82
[2019-06-28 22:00] VITALS: BP 148/82
[2019-06-28] MEDS: APIXABAN 5 MG TAB (ELIQUIS) PO SCH (22:22)
[2019-06-28] MEDS: CYCLOBENZAPRINE 10 MG TAB PO SCH (22:22)
[2019-06-28] MEDS: THIAMINE 100 MG TAB PO SCH (22:22)
[2019-06-28] MEDS: ROSUVASTATIN 10 MG TAB (CRESTOR) PO SCH (22:22)
[2019-06-28] MEDS: GABAPENTIN 300 MG CAP PO SCH (22:22)
[2019-06-28] MEDS: traZODone 100 MG TAB PO SCH (22:22)
[2019-06-28] MEDS: TOPIRAMATE (TopAMAX) 25 MG TAB PO SCH (22:23)
[2019-06-28 22:48] LABS: BLOOD UREA NITROGEN 11 MG/DL (7-18); CALCIUM LEVEL 8.1 MG/DL (8.8-10.2); CARBON DIOXIDE LEVEL 23 MEQ/L (21-32); CHLORIDE LEVEL 106 MEQ/L (98-107); CREATININE FOR GFR 0.79 MG/DL (0.70-1.30); GLOMERULAR FILTRATION RATE > 60.0 (>49); GLUCOSE, FASTING 273 MG/DL (70-100); POTASSIUM SERUM 3.5 MEQ/L (3.5-5.1); SODIUM LEVEL 134 MEQ/L (136-145)
[2019-06-28] MEDS: COMBIVENT RESPIMAT 100-20MCG INHALER 4GM INH SCH (23:07)
[2019-06-28] MEDS: ADVAIR HFA 230/21MCG INHALER INH SCH (23:08)
[2019-06-29] VITALS (7 sets, daily range): BP systolic 134–152; BP diastolic 79–88
[2019-06-29 02:21] LABS: BLOOD UREA NITROGEN 12 MG/DL (7-18); CALCIUM LEVEL 7.6 MG/DL (8.8-10.2); CARBON DIOXIDE LEVEL 22 MEQ/L (21-32); CHLORIDE LEVEL 109 MEQ/L (98-107); CREATININE FOR GFR 0.67 MG/DL (0.70-1.30); GLOMERULAR FILTRATION RATE > 60.0 (>49); GLUCOSE, FASTING 273 MG/DL (70-100); POTASSIUM SERUM 3.9 MEQ/L (3.5-5.1); SODIUM LEVEL 140 MEQ/L (136-145)
[2019-06-29] MEDS: KCL 40MEQ in NS 1000ML 1,000 ML IV SCH (03:30)
[2019-06-29 06:01] LABS: BLOOD UREA NITROGEN 11 MG/DL (7-18); CALCIUM LEVEL 7.5 MG/DL (8.8-10.2); CARBON DIOXIDE LEVEL 22 MEQ/L (21-32); CHLORIDE LEVEL 109 MEQ/L (98-107); CREATININE FOR GFR 0.57 MG/DL (0.70-1.30); GLOMERULAR FILTRATION RATE > 60.0 (>49); GLUCOSE, FASTING 244 MG/DL (70-100); POTASSIUM SERUM 3.7 MEQ/L (3.5-5.1); SODIUM LEVEL 138 MEQ/L (136-145)
[2019-06-29 06:05] LABS: BLOOD UREA NITROGEN 10 MG/DL (7-18); CALCIUM LEVEL 7.8 MG/DL (8.8-10.2); CARBON DIOXIDE LEVEL 22 MEQ/L (21-32); CHLORIDE LEVEL 109 MEQ/L (98-107); CREATININE FOR GFR 0.61 MG/DL (0.70-1.30); GLOMERULAR FILTRATION RATE > 60.0 (>49); GLUCOSE, FASTING 239 MG/DL (70-100); MAGNESIUM LEVEL 1.9 MG/DL (1.8-2.4); PHOSPHORUS LEVEL 2.1 MG/DL (2.5-4.9); POTASSIUM SERUM 3.8 MEQ/L (3.5-5.1); SODIUM LEVEL 137 MEQ/L (136-145)
[2019-06-29] MEDS: COMBIVENT RESPIMAT 100-20MCG INHALER 4GM INH SCH ×4 (07:36→20:00)
[2019-06-29] MEDS: ADVAIR HFA 230/21MCG INHALER INH SCH ×2 (07:36→21:00)
--- NOTE | 2019-06-29 07:43 | ECGEPIP ---
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
[2019-06-29 08:11] LABS: HEMATOCRIT 35.3 % (42.0-52.0); HEMOGLOBIN 12.5 g/dl (13.5-17.5); MEAN CORPUSCULAR HEMOGLOBIN 32.1 pg (27.0-33.0); MEAN CORPUSCULAR HGB CONC 35.4 g/dl (32.0-36.5); MEAN CORPUSCULAR VOLUME 90.5 fl (80.0-96.0); PLATELET COUNT, AUTOMATED 186 10^3/uL (150-450); WHITE BLOOD COUNT 10.7 10^3/uL (4.0-10.0)
--- NOTE | 2019-06-29 08:22 | REP ---
REASON: Cough. COMPARISON: Multiple, the latest 06/18/2019. FINDINGS: The technique utilized in obtaining the radiograph has magnified the cardiac silhouette and accentuated the interstitial markings. The superior mediastinal structures are midline. The cardiac silhouette is unremarkable in size, shape, and position. The diaphragmatic surfaces of the lungs are regular, and the costophrenic angles are clear. The pulmonary forte are clear. The imaged osseous structures are intact. IMPRESSION: There is no acute cardiopulmonary disease. No significant change from the prior exam. Electronically Signed by Miguel Duran DO 06/29/2019 01:30 P
[2019-06-29] MEDS ORDERED: PREVNAR 13 VACCINE SYRINGE (CPT CODE:90670) IM ONE (09:00)
[2019-06-29] MEDS: CYCLOBENZAPRINE 10 MG TAB PO SCH ×3 (09:02→21:15)
[2019-06-29] MEDS: predniSONE 20 MG TAB PO SCH (09:03)
[2019-06-29] MEDS: FOLIC ACID 1 MG TAB PO SCH (09:03)
[2019-06-29] MEDS: OMEPRAZOLE 20 MG CAP PO SCH (09:03)
[2019-06-29] MEDS: ASPIRIN 81 MG ENTERIC TAB PO SCH (09:04)
[2019-06-29] MEDS: DIGOXIN 0.125 MG TAB PO SCH (09:04)
[2019-06-29] MEDS: MULTIVITAMINS/MINERALS THERAP 1 TAB PO SCH (09:04)
[2019-06-29] MEDS: ramipriL 1.25 MG CAP PO SCH (09:04)
[2019-06-29] MEDS: LORATADINE 10 MG TAB PO SCH (09:04)
[2019-06-29] MEDS: FLUoxetine 10 MG CAP PO SCH (09:04)
[2019-06-29] MEDS: APIXABAN 5 MG TAB (ELIQUIS) PO SCH ×2 (09:04→21:11)
[2019-06-29] MEDS: THIAMINE 100 MG TAB PO SCH ×2 (09:05→21:11)
[2019-06-29] MEDS: GABAPENTIN 300 MG CAP PO SCH ×3 (09:05→21:11)
[2019-06-29] MEDS: HumaLOG INSULIN (NovoLOG) PER UNIT SC SCH ×4 (09:07→21:13)
[2019-06-29] MEDS: LEVEMIR (INSULIN DETEMIR) 1 UNITS/0.01ML SC SCH ×2 (09:07→21:13)
[2019-06-29 10:40] LABS: BLOOD UREA NITROGEN 9 MG/DL (7-18); CALCIUM LEVEL 7.8 MG/DL (8.8-10.2); CARBON DIOXIDE LEVEL 24 MEQ/L (21-32); CHLORIDE LEVEL 105 MEQ/L (98-107); CREATININE FOR GFR 0.66 MG/DL (0.70-1.30); GLOMERULAR FILTRATION RATE > 60.0 (>49); GLUCOSE, FASTING 166 MG/DL (70-100); POTASSIUM SERUM 3.6 MEQ/L (3.5-5.1); SODIUM LEVEL 137 MEQ/L (136-145)
[2019-06-29] MEDS: TOPIRAMATE (TopAMAX) 25 MG TAB PO SCH ×2 (11:38→21:12)
[2019-06-29] MEDS ORDERED: LIDOCAINE VISCOUS 2% SOLN 15ML UDC SSP PRN (14:00)
--- NOTE | 2019-06-29 14:12 | IPNPDOC ---
Date Seen The patient was seen on 06/29/19. Progress Note SUBJECTIVE: Mr. Hurd was seen and examined at the bedside this morning. He complains of pain in his mouth. Otherwise he feels well. He has been working well with PT. The patient notes that he lives alone and tries to manage his own medication but sometimes forgets to take his insulin. He has been seeking placement in a fci for some time now. He states that his cough has improved and he feels less weak. OBJECTIVE PHYSICAL EXAMINATION: VITAL SIGNS: Please see below. GENERAL APPEARANCE: sitting up at the bedside, appears stated age, no acute distress, calm, cooperative HEENT: EOMI, PERRLA, neck is supple with no thyromegaly or lymphadenopathy MOUTH: No visible ulcers, edentulous RESPIRATORY: Scattered wheezes bilaterally with no adventitious breath sounds appreciated CARDIOVASCULAR: no JVD, RRR, no murmurs/rubs/gallops ABDOMEN: Soft, nontender to palpation in all four quadrants, no masses/organomegaly EXTREMITIES: no clubbing, cyanosis or edema noted NEUROLOGICAL: tremor on RUE and weakness in LUE/LLE from previous stroke, some dysarthria and hoarseness at baseline PSYCHIATRIC: normal mood/affect Skin: No rashes or ulcers. LN: No significant cervical or inguinal lymphadenopathy LABORATORY DATA, IMAGING STUDIES, MICROBIOLOGY: Please see below. DVT prophylaxis ordered?: Pt is on Eliquis ASSESSMENT AND PLAN: This is a 64-year-old male with history of poorly con trolled type 2 diabetes, atrial fibrillation and COPD presented with weakness, dry cough, found to have acute bronchitis and metabolic encephalopathy as well as in DKA. At this time his anion gap has closed and he is tolerating food. He is currently being managed on medical surgical floor. PROBLEMS: 1. DKA, poorly controlled DM2 with A1c 13.2%: -Anion gap now 8, BMP WNL and BGL down to high 100s, low 200s. -Continue Levemir 25U BID and SSI with hypoglycemic protocol -Suspect higher BGL given current prednisone taper 2. Atrial fibrillation: HR has been consistently in the 80s this admission -Continue Eliquis for anticoagulation -Continue Cardizem 240mg PO daily 3. Acute bronchitis: -Patient is currently completing a Prednisone taper. Will do 20mg today + tomorrow, then 10mg 06/30-07/01, then 5mg 07/02-07/03, then stop -Continue home inhalers 4. Metabolic derangements: -Appear to have resolved. BMP WNL today 5. Generalized weakness: -Continue working with PT/OT 6. Hypertensive urgency: BP elevated on admission -BP within normal limits at this time 7. Alcohol abuse: -[facility] protocol -Thiamine, multivitamin, folic acid, ativan PRN 8. Mouth pain: -no visible ulcers in his mouth -Viscous lidocaine -[place] for pain 9. Chronic pain: -Continue Gabapentin, [place], Flexeril DISPOSITION: Patient is a high utilizer of the ER. Needs primary care physician. Will arrange this at discharge. Otherwise, PFS is attempting placement. Patient currently lives alone and is unable to manage his own meds. VS, I&O, 24H, Fishbone Vital Signs/I&O Vital Signs Date Time Temp Pulse Resp B/P (MAP) Pulse Ox O2 Delivery O2 Flow Rate FiO2 06/29/19 12:00 97.7 87 20 143/85 (104) 96 Room Air I&O- Last 24 Hours up to 6 AM 06/29/19 06:00 Intake Total 1260 ml Output Total 3025 ml Balance -1765 ml Laboratory Data 24H LABS Laboratory Tests 2 06/28/19 15:02: Estimated Mean Plasma Glucose 332H, Hemoglobin A1c 13.2 06/28/19 15:03: Immature Granulocyte % (Auto) 1.7, Neutrophils (%) (Auto) 76.9H, Lymphocytes (%) (Auto) 15.9L, Monocytes (%) (Auto) 5.2H, Eosinophils (%) (Auto) 0.1, Basophils (%) (Auto) 0.2, Neutrophils # (Auto) 9.6H, Lymphocytes # (Auto) 2.0, Monocytes # (Auto) 0.6, Eosinophils # (Auto) 0.0, Basophils # (Auto) 0.0, Nucleated Red Blood Cells % (auto) 0.0, Magnesium Level 2.4, Total Bilirubin 0.5, Direct B ilirubin 0.1, Aspartate Amino Transf (AST/SGOT) 10, Alanine Aminotransferase (ALT/SGPT) 30, Alkaline Phosphatase 94, Total Creatine Kinase 99, Creatine Kinase MB 3.0, Creatine Kinase MB Relative Index 3.03, Troponin I < 0.02, Total Protein 8.0, Albumin 3.9, Albumin/Globulin Ratio 0.95L, Lipase 65L, Digoxin Level 0.4L, Salicylates Level < 1.7L, Acetaminophen Level < 2.0L, Ethyl Alcohol Level < 0.003, B-Hydroxybutyrate 2.18 06/28/19 15:04: Lactic Acid Level 3.3*H 06/28/19 15:30: POC Glucose (Misc Panel) 363H, POC Sodium (Misc Panel) 139, POC Potassium (Misc Panel) 2.7*L, POC Chloride (Misc Panel) 104, POC Total CO2 (Misc Panel) 19.0L, POC Blood Urea Nitrogen (Misc Panel 8, POC Ionized Calcium (Misc Panel) 4.2L, POC Creatinine (Misc Panel) 0.3L, POC Hematocrit (Misc Panel) 34.0L 06/28/19 16:28: Urine Color STRAW, Urine Appearance CLEAR, Urine pH 7.0, Urine Specific Delta 1.032, Urine Protein NEGATIVE, Urine Glucose (UA) 3+H, Urine Ketones TRACEH, Urine Blood NEGATIVE, Urine Nitrite NEGATIVE, Urine Bilirubin NEGATIVE, Urine Urobilinogen 0.2, Urine Leukocyte Esterase NEGATIVE, Urine WBC (Auto) 0, Urine RBC (Auto) 0, Urine Hyaline Casts (Auto) 0, Urine Bacteria (Auto) NEGATIVE, Urine Squamous Epithelial Cells 0, Urine Sperm (Auto) , Urine Random Osmolality 722, Urine Opiates Screen POSITIVEH, Urine Methadone Screen NEGATIVE, Urine Barbiturates Screen NEGATIVE, Urine Phencyclidine Screen NEGATIVE, Urine Amphetamines Screen NEGATIVE, Urine Benzodiazepines Screen NEGATIVE, Urine Cocaine Metabolite Screen NEGATIVE, Urine Cannabinoids Screen NEGATIVE 06/28/19 16:40: POC pH (Misc Panel) 7.440, POC Base Excess (Misc Panel) 0.0, POC Saturated Percent O2 (Misc) 98, POC pO2 (Misc Panel) 96.0, POC pCO2 (Misc Panel) 35.6, POC HCO3 (Misc Panel) 24.2, POC Total CO2 (Misc Panel) 25.0 06/28/19 17:56: 06/28/19 18:10: Anion Gap 6L, Glomerular Filtration Rate > 60.0, Osmolality 303H, Calcium Level 8.2L, B-Hydroxybutyrate 2.76 06/28/19 19:41: Lactic Acid Followup at 4 Hours 2.3*H 06/28/19 21:03: Bedside Glucose (Misc Panel) 305H 06/28/19 22:11: Anion Gap 5L, Glomerular Filtration Rate > 60.0, Calcium Level 8.1L 06/29/19 01:46: Anion Gap 9, Glomerular Filtration Rate > 60.0, Calcium Level 7.6L 06/29/19 04:58: Nucleated Red Blood Cells % (auto) 0.0, Anion Gap 6L, Glomerular Filtration Rate > 60.0, Calcium Level 7.8L, Phosphorus Level 2.1L, Magnesium Level 1.9, B-Hydroxybutyrate 1.00 06/29/19 09:43: Anion Gap 8, Glomerular Filtration Rate > 60.0, Calcium Level 7.8L 06/29/19 11:30: Bedside Glucose (Misc Panel) 216H CBC/BMP Laboratory Tests 06/28/19 15:03 06/28/19 18:10 06/28/19 22:11 06/29/19 01:46 06/29/19 04:58 06/29/19 09:43 Microbiology Microbiology 06/28/19 Blood Culture, Received Pending 06/28/19 Respiratory Virus Panel (PCR) (TASHI) - Final, Complete 06/28/19 Blood Culture, Received Pending GME ATTESTATION GME ATTESTATION My faculty preceptor for this patient encounter was physically present during the encounter and was fully available. All aspects of the patient interview, examination, medical decision making process, and medical care plan development were reviewed and approved by the faculty preceptor. The faculty preceptor is aware and concurs with the plan as stated in the body of this note and will attest to such by his/her cosignature. ATTENDING NOTE I, Ignacia Sanchez, have independently examined this patient and performed my own physical exam, as well as reviewed the documentation. I have discussed in detail with the resident / student the findings and plan of treatment as documented by the resident / student. I agree with their findings and treatment plan. I will continue to follow the patient during this hospital stay. LANDY DELA CRUZ MD Jun 29, 2019 14:12 IGNACIA SANCHEZ DO Jun 29, 2019 14:16
[2019-06-29] MEDS: traZODone 100 MG TAB PO SCH (21:11)
[2019-06-29] MEDS: ROSUVASTATIN 10 MG TAB (CRESTOR) PO SCH (21:12)
[2019-06-30 06:00] VITALS: BP 112/68
[2019-06-30] MEDS: COMBIVENT RESPIMAT 100-20MCG INHALER 4GM INH SCH ×4 (07:10→19:54)
[2019-06-30 08:10] LABS: HEMATOCRIT 41.1 % (42.0-52.0); HEMOGLOBIN 14.4 g/dl (13.5-17.5); MEAN CORPUSCULAR HEMOGLOBIN 31.4 pg (27.0-33.0); MEAN CORPUSCULAR VOLUME 89.7 fl (80.0-96.0); PLATELET COUNT, AUTOMATED 193 10^3/uL (150-450); RED BLOOD COUNT 4.58 10^6/uL (4.30-6.10); WHITE BLOOD COUNT 13.8 10^3/uL (4.0-10.0)
[2019-06-30] MEDS: LEVEMIR (INSULIN DETEMIR) 1 UNITS/0.01ML SC SCH ×2 (08:36→20:48)
[2019-06-30] MEDS: HumaLOG INSULIN (NovoLOG) PER UNIT SC SCH ×4 (08:36→20:49)
[2019-06-30] MEDS: MULTIVITAMINS/MINERALS THERAP 1 TAB PO SCH (08:36)
[2019-06-30] MEDS: FOLIC ACID 1 MG TAB PO SCH (08:37)
[2019-06-30] MEDS: CYCLOBENZAPRINE 10 MG TAB PO SCH ×3 (08:37→20:48)
[2019-06-30] MEDS: OMEPRAZOLE 20 MG CAP PO SCH (08:37)
[2019-06-30] MEDS: THIAMINE 100 MG TAB PO SCH ×2 (08:37→20:48)
[2019-06-30] MEDS: TOPIRAMATE (TopAMAX) 25 MG TAB PO SCH ×2 (08:37→20:47)
[2019-06-30] MEDS: predniSONE 20 MG TAB PO SCH (08:38)
[2019-06-30] MEDS: ASPIRIN 81 MG ENTERIC TAB PO SCH (08:38)
[2019-06-30] MEDS: DIGOXIN 0.125 MG TAB PO SCH (08:38)
[2019-06-30] MEDS: ramipriL 1.25 MG CAP PO SCH (08:38)
[2019-06-30] MEDS: GABAPENTIN 300 MG CAP PO SCH ×3 (08:38→20:47)
[2019-06-30] MEDS: APIXABAN 5 MG TAB (ELIQUIS) PO SCH ×2 (08:38→20:48)
[2019-06-30] MEDS: FLUoxetine 10 MG CAP PO SCH (08:38)
[2019-06-30] MEDS: LORATADINE 10 MG TAB PO SCH (08:38)
[2019-06-30 08:40] LABS: BLOOD UREA NITROGEN 15 MG/DL (7-18); CALCIUM LEVEL 8.5 MG/DL (8.8-10.2); CARBON DIOXIDE LEVEL 26 MEQ/L (21-32); CHLORIDE LEVEL 103 MEQ/L (98-107); CREATININE FOR GFR 0.66 MG/DL (0.70-1.30); GLOMERULAR FILTRATION RATE > 60.0 (>49); GLUCOSE, FASTING 185 MG/DL (70-100); POTASSIUM SERUM 3.6 MEQ/L (3.5-5.1); SODIUM LEVEL 136 MEQ/L (136-145)
--- NOTE | 2019-06-30 09:53 | ECGEPIP ---
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 nO SIGNIFICANT CHANGES Electronically Signed on 06-30-2019 9:52:59 EDT by Garo Nielsen
[2019-06-30] MEDS: ADVAIR HFA 230/21MCG INHALER INH SCH ×2 (11:07→19:54)
--- NOTE | 2019-06-30 13:53 | IPNPDOC ---
Date Seen The patient was seen on 06/30/19. Progress Note SUBJECTIVE: Mr. Hurd was seen and examined at the bedside this morning. He states the pain that he previously had in his mouth has resolved. He is excited about the prospect of going to [facility] in the near future but he is preoccupied by the fact that he would like to retrieve his belongings from his house. He is not having any nausea/vomiting/diarrhea or constipation. His blood sugars have been in the high 100s and mid-200s. OBJECTIVE PHYSICAL EXAMINATION: VITAL SIGNS: Please see below. GENERAL APPEARANCE: sitting up at the bedside, appears stated age, no acute distress, calm, cooperative HEENT: EOMI, PERRLA, neck is supple with no thyromegaly or lymphadenopathy MOUTH: No visible ulcers, edentulous RESPIRATORY: Scattered wheezes bilaterally with no adventitious breath sounds appreciated CARDIOVASCULAR: no JVD, RRR, no murmurs/rubs/gallops ABDOMEN: Soft, nontender to palpation in all four quadrants, no masses/organomegaly EXTREMITIES: no clubbing, cyanosis or edema noted NEUROLOGICAL: tremor on RUE and weakness in LUE/LLE from previous stroke, some dysarthria and hoarseness at baseline PSYCHIATRIC: normal mood/affect Skin: No rashes or ulcers. LN: No significant cervical or inguinal lymphadenopathy LABORATORY DATA, IMAGING STUDIES, MICROBIOLOGY: Please see below. DVT prophylaxis ordered?: Pt is on Eliquis ASSESSMENT AND PLAN: This is a 64-year-old male with history of poorly controlled type 2 diabetes, atrial fibrillation and COPD presented with weakness, dry cough, found to have acute bronchitis and to be in DKA. At this time his anion gap has closed and he is tolerating food. Blood sugars are within normal range. He is currently being managed on medical surgical floor. PROBLEMS: 1. DKA, poorly controlled DM2 with A1c 13.2%: -Anion gap now 7, BMP WNL and BGL around mid 200s. -Levemir increased to 30U BID and SSI with hypoglycemic protocol -Suspect higher BGL given current prednisone taper 2. Atrial fibrillation: HR has been consistently in the 80s this admission -Continue Eliquis for anticoagulation -Continue Cardizem 240mg PO daily 3. Acute bronchitis: -Patient is currently completing a Prednisone taper. Will do 20mg today, then 10mg 06/30-07/01, then 5mg 07/02-07/03, then stop -Continue home inhalers 4. Metabolic abnormalities: -Appear to have resolved. BMP WNL today 5. Generalized weakness: -PT/OT recommend rehab after discharge 6. Hypertensive urgency: BP elevated on admission -BP within normal limits at this time 7. Alcohol abuse: -[facility] protocol -Thiamine, multivitamin, folic acid, ativan PRN 8. Mouth pain: -no visible ulcers in his mouth -Viscous lidocaine -[place] for pain 9. Chronic pain: -Continue Gabapentin, [place], Flexeril DISPOSITION: Patient is a high utilizer of the ER. Needs primary care physician. Will arrange this at discharge. Otherwise, PFS is attempting placement. Patient currently lives alone and is unable to manage his own meds. VS, I&O, 24H, Fishbone Vital Signs/I&O Vital Signs Date Time Temp Pulse Resp B/P (MAP) Pulse Ox O2 Delivery O2 Flow Rate FiO2 06/30/19 08:38 92 06/30/19 08:37 112/71 06/30/19 06:00 98.5 19 94 Room Air I&O- Last 24 Hours up to 6 AM 06/30/19 06:00 Intake Total 2600 ml Output Total 5850 ml Balance -3250 ml Laboratory Data 24H LABS Laboratory Tests 2 06/29/19 16:38: Methicillin-Resist S.aureus DNA PCR NOT DETECTED 06/29/19 17:50: Bedside Glucose (Misc Panel) 315H 06/29/19 20:11: Bedside Glucose (Misc Panel) 365H 06/30/19 05:47: Bedside Glucose (Misc Panel) 195H 06/30/19 07:54: Nucleated Red Blood Cells % (auto) 0.0, Anion Gap 7L, Glomerular Filtration Rate > 60.0, Calcium Level 8.5L 06/30/19 11:39: Bedside Glucose (Misc Panel) 260H CBC/BMP Laboratory Tests 06/30/19 07:54 Microbiology Microbiology 06/28/19 Blood Culture - Preliminary, Resulted No growth after 24 hours . All specim... 06/28/19 Respiratory Virus Panel (PCR) (TASHI) - Final, Complete 06/28/19 Blood Culture - Preliminary, Resulted No growth after 24 hours . All specim... GME ATTESTATION GME ATTESTATION My faculty preceptor for this patient encounter was physically present during the encounter and was fully available. All aspects of the patient interview, examination, medical decision making process, and medical care plan development were reviewed and approved by the faculty preceptor. The faculty preceptor is aware and concurs with the plan as stated in the body of this note and will attest to such by his/her cosignature. LANDY DELA CRUZ MD Jun 30, 2019 13:16
[2019-06-30 14:00] VITALS: BP 110/70
[2019-06-30 14:28] LABS: BLOOD UREA NITROGEN 15 MG/DL (7-18); CALCIUM LEVEL 8.4 MG/DL (8.8-10.2); CARBON DIOXIDE LEVEL 23 MEQ/L (21-32); CHLORIDE LEVEL 104 MEQ/L (98-107); CREATININE FOR GFR 0.71 MG/DL (0.70-1.30); GLOMERULAR FILTRATION RATE > 60.0 (>49); GLUCOSE, FASTING 303 MG/DL (70-100); SODIUM LEVEL 133 MEQ/L (136-145)
[2019-06-30] MEDS ORDERED: LORazepam 0.5 MG TAB PO ONE (18:00)
[2019-06-30 20:24] LABS: BLOOD UREA NITROGEN 17 MG/DL (7-18); CALCIUM LEVEL 8.3 MG/DL (8.8-10.2); CARBON DIOXIDE LEVEL 23 MEQ/L (21-32); CHLORIDE LEVEL 102 MEQ/L (98-107); CREATININE FOR GFR 0.77 MG/DL (0.70-1.30); GLOMERULAR FILTRATION RATE > 60.0 (>49); GLUCOSE, FASTING 390 MG/DL (70-100); POTASSIUM SERUM 3.8 MEQ/L (3.5-5.1); SODIUM LEVEL 132 MEQ/L (136-145)
[2019-06-30] MEDS: traZODone 100 MG TAB PO SCH (20:47)
[2019-06-30] MEDS: ROSUVASTATIN 10 MG TAB (CRESTOR) PO SCH (20:48)
[2019-06-30 22:00] VITALS: BP 114/72
[2019-07-01 06:00] VITALS: BP 112/70
[2019-07-01 06:07] LABS: BASO % 0.2 % (0.0-1.0); EOS # 0.1 10^3/uL (0.0-0.5); EOS % 1.1 % (0.0-3.0); HEMOGLOBIN 13.6 g/dl (13.5-17.5); LYMPH # 3.5 10^3/uL (1.5-5.0); LYMPH % 30.2 % (24.0-44.0); MEAN CORPUSCULAR HEMOGLOBIN 31.6 pg (27.0-33.0); MEAN CORPUSCULAR HGB CONC 34.9 g/dl (32.0-36.5); MEAN CORPUSCULAR VOLUME 90.5 fl (80.0-96.0); MONO # 0.7 10^3/uL (0.0-0.8); MONO % 5.8 % (0.0-5.0); NEUTROPHILS # 7.2 10^3/uL (1.5-8.5); PLATELET COUNT, AUTOMATED 181 10^3/uL (150-450); RED BLOOD COUNT 4.31 10^6/uL (4.30-6.10); WHITE BLOOD COUNT 11.6 10^3/uL (4.0-10.0)
[2019-07-01 06:27] LABS: BLOOD UREA NITROGEN 14 MG/DL (7-18); CALCIUM LEVEL 8.2 MG/DL (8.8-10.2); CARBON DIOXIDE LEVEL 26 MEQ/L (21-32); CHLORIDE LEVEL 108 MEQ/L (98-107); CREATININE FOR GFR 0.58 MG/DL (0.70-1.30); GLOMERULAR FILTRATION RATE > 60.0 (>49); GLUCOSE, FASTING 185 MG/DL (70-100); POTASSIUM SERUM 3.3 MEQ/L (3.5-5.1); SODIUM LEVEL 139 MEQ/L (136-145)
[2019-07-01] MEDS: COMBIVENT RESPIMAT 100-20MCG INHALER 4GM INH SCH ×2 (07:26→11:52)
[2019-07-01] MEDS ORDERED: POTASSIUM CHLORIDE 10 MEQ SR TABLET PO ONE (07:45)
[2019-07-01] MEDS: ADVAIR HFA 230/21MCG INHALER INH SCH (07:49)
[2019-07-01] MEDS: THIAMINE 100 MG TAB PO SCH (09:08)
[2019-07-01] MEDS: FOLIC ACID 1 MG TAB PO SCH (09:08)
[2019-07-01] MEDS: LORATADINE 10 MG TAB PO SCH (09:08)
[2019-07-01] MEDS: APIXABAN 5 MG TAB (ELIQUIS) PO SCH (09:08)
[2019-07-01] MEDS: predniSONE 20 MG TAB PO SCH (09:08)
[2019-07-01] MEDS: ASPIRIN 81 MG ENTERIC TAB PO SCH (09:08)
[2019-07-01] MEDS: OMEPRAZOLE 20 MG CAP PO SCH (09:08)
[2019-07-01] MEDS: GABAPENTIN 300 MG CAP PO SCH (09:08)
[2019-07-01] MEDS: CYCLOBENZAPRINE 10 MG TAB PO SCH (09:08)
[2019-07-01] MEDS: MULTIVITAMINS/MINERALS THERAP 1 TAB PO SCH (09:08)
[2019-07-01 09:09] VITALS: BP 110/71
[2019-07-01] MEDS: FLUoxetine 10 MG CAP PO SCH (09:09)
[2019-07-01] MEDS: TOPIRAMATE (TopAMAX) 25 MG TAB PO SCH (09:09)
[2019-07-01] MEDS: DIGOXIN 0.125 MG TAB PO SCH (09:09)
[2019-07-01] MEDS: ramipriL 1.25 MG CAP PO SCH (09:09)
[2019-07-01] MEDS: LEVEMIR (INSULIN DETEMIR) 1 UNITS/0.01ML SC SCH (09:10)
[2019-07-01] MEDS: HumaLOG INSULIN (NovoLOG) PER UNIT SC SCH ×2 (09:10→12:27)
[2019-07-01] MEDS ORDERED: BASA100I SC (10:41)
[2019-07-01] MEDS ORDERED: PRED10TA2 PO (10:41)
[2019-07-01] MEDS ORDERED: INSUHUMDS SC (10:41)
--- NOTE | 2019-07-01 17:56 | DS.PDOC ---
Discharge Summary General Date of Admission Jun 28, 2019 at 17:16 Date of Discharge July 01, 2019 Primary Care Physician: Rufus Stein Attending Physician: IGNACIA SANCHEZ DO Discharge Summary PROCEDURES PERFORMED DURING STAY: [None]. ADMITTING DIAGNOSES: 1. DKA 2. Metabolic acidosis 3. Atrial fibrillation 4. Acute bronchitis 5. Hypokalemia 6. Weakness, generalized 7. Hypertensive urgency 8. ETOH abuse DISCHARGE DIAGNOSES: 1. DKA COMPLICATIONS/CHIEF COMPLAINT: Hyperglycemia. HISTORY OF PRESENT ILLNESS: Patient is 64 years old male with past medical history type 2 diabetes, atrial fibrillation, COPD with emphysema presented hospital with dry cough and generalized weakness. Patient stated that he has been having these symptoms for a few weeks. Also, he stated that he has a poor oral intake. In emergency room patient was found to have wbc 12.4, blood glucose level of 332, anion gap of 16, potassium 2.7. Respiratory panel was negative. Chest x-ray was negative for acute infiltrate. Of note patient stated that he drank alcohol yesterday. HOSPITAL COURSE: Patient was admitted with DKA and started on insulin drip. He was transitioned to [place] insulin when his anion gap closed. He was able to tolerate meals. He was also started on the CIWA protocol for his alcohol abuse. The patient expressed interest in fci care, as he felt that it was getting difficult to manage his own medications at home. He lives by himself. Physical therapy and occupational therapy worked with him and suggested continued rehabilitation. Patient family services found him a spot at the [facility] and he was discharged in a stable state of health. DISCHARGE MEDICATIONS: Please see below. ALLERGIES: Please see below. PHYSICAL EXAMINATION ON DISCHARGE: VITAL SIGNS: Please see below. GENERAL APPEARANCE: sitting up at the bedside, appears stated age, no acute distress, calm, cooperative HEENT: EOMI, PERRLA, neck is supple with no thyromegaly or lymphadenopathy MOUTH: No visible ulcers, edentulous RESPIRATORY: Scattered wheezes bilaterally with no adventitious breath sounds appreciated CARDIOVASCULAR: no JVD, RRR, no murmurs/rubs/gallops ABDOMEN: Soft, nontender to palpation in all four quadrants, no masses/organomegaly EXTREMITIES: no clubbing, cyanosis or edema noted NEUROLOGICAL: tremor on RUE and weakness in LUE/LLE from previous stroke, some dysarthria and hoarseness at baseline PSYCHIATRIC: normal mood/affect Skin: No rashes or ulcers. LN: No significant cervical or inguinal lymphadenopathy LABORATORY DATA: Please see below. IMAGING: CXR: FINDINGS: The technique utilized in obtaining the radiograph has magnified the cardiac silhouette and accentuated the interstitial markings. The superior mediastinal structures are midline. The cardiac silhouette is unremarkable in size, shape, and position. The diaphragmatic surfaces of the lungs are regular, and the costophrenic angles are clear. The pulmonary forte are clear. The imaged osseous structures are intact. IMPRESSION: There is no acute cardiopulmonary disease. No significant change from the prior exam. PROGNOSIS: fair ACTIVITY: [As tolerated]. DIET: consistent carbohydrates DISCHARGE PLAN: [facility] DISPOSITION: [facility]. DISCHARGE INSTRUCTIONS: 1. follow up with PCP PRN ITEMS TO FOLLOWUP ON ON OUTPATIENT: 1. None DISCHARGE CONDITION: [Stable]. TIME SPENT ON DISCHARGE: Greater than 35 minutes. Vital Signs/I&Os Vital Signs Date Time Temp Pulse Resp B/P (MAP) Pulse Ox O2 Delivery O2 Flow Rate FiO2 07/01/19 09:09 110/71 07/01/19 09:09 98 07/01/19 06:00 98.6 17 95 Room Air I&O- Last 24 Hours up to 6 AM 07/01/19 06:00 Intake Total 5640 ml Output Total 3875 ml Balance 1765 ml Laboratory Data Labs 24H Laboratory Tests 2 06/30/19 19:39: Anion Gap 7L, Glomerular Filtration Rate > 60.0, Calcium Level 8.3L 06/30/19 20:23: Bedside Glucose (Misc Panel) 394H 07/01/19 05:23: Anion Gap 5L, Glomerular Filtration Rate > 60.0, Calcium Level 8.2L, Immature Granulocyte % (Auto) 0.7, Neutrophils (%) (Auto) 62.0, Lymphocytes (%) (Auto) 30.2, Monocytes (%) (Auto) 5.8H, Eosinophils (%) (Auto) 1.1, Basophils (%) (Auto) 0.2, Neutrophils # (Auto) 7.2, Lymphocytes # (Auto) 3.5, Monocytes # (Auto) 0.7, Eosinophils # (Auto) 0.1, Basophils # (Auto) 0.0, Nucleated Red Blood Cells % (auto) 0.0, Magnesium Level 2.2 07/01/19 11:28: Bedside Glucose (Misc Panel) 398H CBC/BMP Laboratory Tests 06/30/19 19:39 07/01/19 05:23 FSBS Laboratory Tests Test 06/30/19 20:23 07/01/19 11:28 Range/Units Bedside Glucose (Misc Panel) 394 398 80-115 MG/DL Microbiology Microbiology 06/28/19 Blood Culture - Preliminary, Resulted No Growth after 72 hours. All specime... 06/28/19 Respiratory Virus Panel (PCR) (TASHI) - Final, Complete 06/28/19 Blood Culture - Preliminary, Resulted No Growth after 72 hours. All specime... Discharge Medications Scheduled Apixaban (Eliquis) 5 Mg Tab, 5 MG PO BID, (Reported) Aspirin (Aspirin EC) 81 Mg Tab, 81 MG PO DAILY, (Reported) Cyclobenzaprine HCl (Cyclobenzaprine HCl) 10 Mg Tablet, 10 MG PO TID, (Reported) Digoxin (Digoxin) 125 Mcg Tab, 125 MCG PO DAILY, (Reported) Diltiazem HCl (Diltiazem 24Hr ER) 240 Mg Cap, 240 MG PO DAILY, (Reported) Esomeprazole Magnesium (Esomeprazole Magnesium) 40 Mg Cap, 40 MG PO DAILY, (Reported) Fluoxetine Hcl (Fluoxetine HCl) 10 Mg Cap, 10 MG PO DAILY, (Reported) Gabapentin (Gabapentin) 300 Mg Capsule, 300 MG PO TID, (Reported) Glimepiride (Glimepiride) 2 Mg Tablet, 2 MG PO BID, (Reported) Hydroxyzine HCl (Hydroxyzine HCl) 25 Mg Tablet, 25 MG PO TID, (Reported) Insulin Glargine,Hum.rec.anlog (Basaglar Kwikpen U-100) 100 Unit/1 Ml Insuln.pen, 35 UNIT SC DAILY Insulin Human Lispro (Humalog) 100 Unit/1 Ml Vial, 8 UNITS SC WM Ipratropium/Albuterol Sulfate (Combivent Respimat 20-100 Mcg) 4 Gm Mist.inhal, 1 PUFF INH QID, (Reported) Loratadine (Loratadine) 10 Mg Tab, 10 MG PO DAILY, (Reported) Prednisone (Prednisone) 10 Mg Tablet, 10 MG PO DAILY TAKE 10MG DAILY FOR THE NEXT FOUR DAYS, ENDING ON 07/03/2019 Ramipril (Ramipril) 1.25 Mg Capsule, 1.25 MG PO DAILY, (Reported) Rosuvastatin Calcium (Crestor) 5 Mg Tab, 5 MG PO QHS, (Reported) Salmeterol/Fluticasone (Advair 500-50 Diskus) 28 Puff/Inhaler Aerp, 1 PUFF INH BID, (Reported) Topiramate (Topiramate) 50 Mg Tab, 50 MG PO BID, (Reported) Trazodone HCl (Trazodone HCl) 100 Mg Tablet, 100 MG PO QHS, (Reported) Scheduled PRN Albuterol Sulfate (Ventolin Hfa) 108 Mcg/Act Aer, 2 PUFF INH TIDP PRN for WHEEZING, (Reported) Hydrocodone/Acetaminophen (Hydrocodone-Acetamin 5-325 mg) 1 Each Tablet, 1 TAB PO BID PRN for pain, (Reported) Nitroglycerin (Nitrostat) 0.4 Mg Subl, 0.4 MG SL NITRO PRN for CHEST PAIN, (Reported) Allergies Coded Allergies: FISH (Verified Allergy, Unknown, 03/12/19) Penicillins (Verified Allergy, Unknown, 03/12/19) acetaminophen (Verified Allergy, Unknown, 06/18/19) HAS REFUSED APAP INPAST HOWEVER HAS RECEIVED NORCO/VICODIN MYLTIPLE TIMES w/o PROBLEM chlorpromazine (Verified Allergy, Unknown, 03/12/19) diphenhydramine (Verified Allergy, Unknown, 03/12/19) ibuprofen (Verified Allergy, Unknown, 03/12/19) lithium (Verified Allergy, Unknown, 03/12/19) paroxetine (Verified Allergy, Unknown, 03/12/19) thioridazine (Verified Allergy, Unknown, 03/12/19) GME ATTESTATION GME ATTESTATION My faculty preceptor for this patient encounter was physically present during the encounter and was fully available. All aspects of the patient interview, examination, medical decision making process, and medical care plan development were reviewed and approved by the faculty preceptor. The faculty preceptor is aware and concurs with the plan as stated in the body of this note and will attest to such by his/her cosignature. LANDY DELA CRUZ MD Jul 01, 2019 17:56
== END 2019-07-01 12:35 | DRG 202 ==
LOC: M ED 14:29 → EEVIPCON 17:16 → M ED INP 17:16 → ENRESERVDT 20:17 → ENRESERVTM 20:17 → CANRESERV 20:17 → ENRESERVDT 20:24 → ENRESERVTM 20:24 → M PCU 21:52 → M MSPAV 06-29 16:14
PROVIDERS: ADMIT Internal Medicine; ATTEND Internal Medicine
DX: J20.9 Acute bronchitis, unspecified (principal); E11.10 Type 2 diabetes mellitus with ketoacidosis without coma; E87.6 Hypokalemia; I16.0 Hypertensive urgency; I48.91 Unspecified atrial fibrillation; F10.10 Alcohol abuse, uncomplicated; J43.9 Emphysema, unspecified; Z79.82 Long term (current) use of aspirin; Z79.899 Other long term (current) drug therapy; Z88.0 Allergy status to penicillin; Z88.8 Allergy status to other drugs, medicaments and biological substances; Z88.6 Allergy status to analgesic agent; Z91.013 Allergy to seafood; I25.10 Atherosclerotic heart disease of native coronary artery without angina pectoris; Z79.01 Long term (current) use of anticoagulants; G40.909 Epilepsy, unspecified, not intractable, without status epilepticus; G20 Parkinson's disease; F17.200 Nicotine dependence, unspecified, uncomplicated

== ENCOUNTER → 2019-07-02 | Outpatient (REF) ==
[~2019-07-02] MED LIST changes: +INSUHUMDS SC
== END ==
LOC: SKLAB5 14:30
PROVIDERS: ATTEND Internal Medicine
DX: Z22.322 Carrier or suspected carrier of Methicillin resistant Staphylococcus aureus (principal)

== ENCOUNTER → 2019-07-09 | Outpatient (REF) ==
[~2019-07-09] MED LIST changes: +CLEO150C PO
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
== END ==
LOC: SKLAB5 09:05
PROVIDERS: ATTEND Internal Medicine
DX: Z22.322 Carrier or suspected carrier of Methicillin resistant Staphylococcus aureus (principal)

== ENCOUNTER 2019-07-11 21:35 | Emergency (ER) | payer MEDICARE, MEDICAID ==
[~2019-07-11] VITALS: Ht 172.7 cm; Wt 64.1 kg
[~2019-07-11 21:35] MED LIST changes: -CLEO150C PO
[2019-07-11] MEDS ORDERED: traMADol 50 MG TAB PO ONE (21:45)
[2019-07-11] MEDS ORDERED: CLINDAMYCIN 150 MG CAP PO ONE (21:45)
[2019-07-11] MEDS ORDERED: CLEO150C PO (21:53)
[2019-07-11] MEDS ORDERED: traMADol 50 MG TAB (BULK 4 TAB ED) PO ONE (22:00)
[2019-07-11 22:10] VITALS: BP 130/94
== END 2019-07-11 22:11 | disposition home or self-care (01) ==
LOC: M ED 21:35
DX: L03.211 Cellulitis of face (principal); I10 Essential (primary) hypertension; E11.9 Type 2 diabetes mellitus without complications; J44.9 Chronic obstructive pulmonary disease, unspecified; Z79.899 Other long term (current) drug therapy; Z79.82 Long term (current) use of aspirin; Z79.4 Long term (current) use of insulin; Z79.01 Long term (current) use of anticoagulants; Z88.0 Allergy status to penicillin; Z88.8 Allergy status to other drugs, medicaments and biological substances; Z91.018 Allergy to other foods; Z87.891 Personal history of nicotine dependence

== ENCOUNTER 2019-08-04 18:37 | Emergency (ER) | payer MEDICARE, MEDICAID ==
[~2019-08-04] VITALS: Ht 172.7 cm; Wt 59.5 kg
[~2019-08-04 18:37] MED LIST changes: +CLEO150C PO; +CYCL-707 PO; -CYCL10TA PO; +OXYC-1 PO; -OXYC15TA76 PO
--- NOTE | 2019-08-04 19:35 | REPVR ---
PROCEDURE INFORMATION: Exam: CT Head Without Contrast Exam date and time: 08/04/2019 7:15 PM Age: 64 years old Clinical indication: Injury or trauma; Fall; Initial encounter; Blunt trauma (contusions or hematomas) TECHNIQUE: Imaging protocol: Computed tomography of the head without contrast. Radiation optimization: All CT scans at this facility use at least one of these dose optimization techniques: automated exposure control; mA and/or kV adjustment per patient size (includes targeted exams where dose is matched to clinical indication); or iterative reconstruction. COMPARISON: CT Head without contrast 06/11/2019 10:06 PM FINDINGS: Brain: Stable diffuse parenchymal atrophy. Ventricles: The degree of ventricular dilatation is normal for age and/or degree of atrophy present. Bones/joints: Unremarkable. No acute fracture. Sinuses: Bilateral maxillary retention cysts. Mild inflammatory changes in the ethmoid sinuses. Membranous thickening in the sphenoid sinuses. Mastoid air cells: Visualized mastoid air cells are well aerated. Auditory system: Retained cerumen in both external auditory canals. Soft tissues: Unremarkable. IMPRESSION: The degree of ventricular dilatation is normal for age and/or degree of atrophy present. Electronically signed by: Joe Bradford On 08/04/2019 19:34:59 PM
--- NOTE | 2019-08-04 19:40 | REPVR ---
PROCEDURE INFORMATION: Exam: CT Cervical Spine Without Contrast Exam date and time: 08/04/2019 7:15 PM Age: 64 years old Clinical indication: Injury or trauma; Fall; Initial encounter; Blunt trauma TECHNIQUE: Imaging protocol: Computed tomography images of the cervical spine without contrast. Radiation optimization: All CT scans at this facility use at least one of these dose optimization techniques: automated exposure control; mA and/or kV adjustment per patient size (includes targeted exams where dose is matched to clinical indication); or iterative reconstruction. COMPARISON: CT Spine,cervical w/o contrast 04/12/2019 8:15 AM FINDINGS: Vertebrae: Multilevel facet joint arthropathy. Discs/Spinal canal/Neural foramina: There are degenerative changes demonstrated in the atlantoaxial joint with osteophytes and joint space narrowing. The transverse ligament is unremarkable. Disc space narrowing at C3-C4 through C6-C7 with intervertebral osteophytes most severe at C3-C4. Multilevel disc osteophyte complexes result in varying degrees of effacement of the ventral subarachnoid space most pronounced at C3-C4 where there is a large posterior disc protrusion resulting in moderate to severe cord impingement. Mild disc space narrowing on the left at C2, severe bilateral foraminal stenosis at C3, severe bilateral foraminal stenosis at C4, severe foraminal stenosis on the right and moderate foraminal stenosis on the left at C5, severe foraminal stenosis on the left and moderate to severe foraminal stenosis on the right at C6. Soft tissues: See "C1-C2" finding. Lungs: Bilateral centrilobular emphysema. IMPRESSION: 1. Multilevel disc osteophyte complexes result in varying degrees of effacement of the ventral subarachnoid space most pronounced at C3-C4 where there is a large posterior disc protrusion resulting in moderate to severe cord impingement. 2. Diffuse degenerative spondylosis. 3. No fracture. Electronically signed by: Joe Bradford On 08/04/2019 19:40:29 PM
[2019-08-04 19:45] LABS: BASO # 0.1 10^3/uL (0.0-0.2); BASO % 0.8 % (0.0-1.0); EOS # 0.1 10^3/uL (0.0-0.5); EOS % 1.5 % (0.0-3.0); HEMATOCRIT 44.6 % (42.0-52.0); HEMOGLOBIN 15.1 g/dl (13.5-17.5); LYMPH # 2.3 10^3/uL (1.5-5.0); LYMPH % 25.2 % (24.0-44.0); MEAN CORPUSCULAR HEMOGLOBIN 30.3 pg (27.0-33.0); MEAN CORPUSCULAR HGB CONC 33.9 g/dl (32.0-36.5); MEAN CORPUSCULAR VOLUME 89.4 fl (80.0-96.0); MONO # 0.6 10^3/uL (0.0-0.8); MONO % 6.6 % (0.0-5.0); NEUTROPHILS # 5.9 10^3/uL (1.5-8.5); NEUTROPHILS % 65.6 % (36.0-66.0); PLATELET COUNT, AUTOMATED 256 10^3/uL (150-450); RED BLOOD COUNT 4.99 10^6/uL (4.30-6.10); WHITE BLOOD COUNT 9.1 10^3/uL (4.0-10.0)
[2019-08-04 19:57] LABS: INR 1.22; PROTHROMBIN TIME 15.2 SECONDS (11.8-14.0)
[2019-08-04 19:58] LABS: PARTIAL THROMBOPLASTIN TIME 34.6 SECONDS (25.0-38.4)
[2019-08-04] MEDS ORDERED: NS 500 ML IV ONE (20:15)
[2019-08-04 20:23] LABS: BLOOD UREA NITROGEN 7 MG/DL (7-18); CALCIUM LEVEL 9.5 MG/DL (8.8-10.2); CARBON DIOXIDE LEVEL 26 MEQ/L (21-32); CHLORIDE LEVEL 104 MEQ/L (98-107); CK-MB VALUE MASS 4.4 NG/ML (<3.6); CPK CREATINE PHOSPHOKINASE 169 U/L (39-308); CREATININE FOR GFR 0.95 MG/DL (0.70-1.30); FREE T4 0.93 NG/DL (0.76-1.46); GLOMERULAR FILTRATION RATE > 60.0 (>49); GLUCOSE, FASTING 370 MG/DL (70-100); POTASSIUM SERUM 3.9 MEQ/L (3.5-5.1); SODIUM LEVEL 137 MEQ/L (136-145); TROPONIN I < 0.02 NG/ML (< 0.10)
[2019-08-04 20:45] VITALS: BP 154/86
[2019-08-04] MEDS ORDERED: ISOVUE-370 76% 100ML VIAL As Ordered ONE (21:15)
--- NOTE | 2019-08-04 21:57 | REPVR ---
PROCEDURE INFORMATION: Exam: CT Angiography Chest With Contrast Exam date and time: 08/04/2019 9:23 PM Age: 64 years old Clinical indication: Chest pain; Additional info: Near syncope TECHNIQUE: Imaging protocol: Computed tomographic angiography of the chest with intravenous contrast. 3D rendering: MIP and/or 3D reconstructed images were created by the technologist. Radiation optimization: All CT scans at this facility use at least one of these dose optimization techniques: automated exposure control; mA and/or kV adjustment per patient size (includes targeted exams where dose is matched to clinical indication); or iterative reconstruction. Contrast material: ISO 370; Contrast volume: 75 ml; Contrast route: IV; COMPARISON: CT ANGIO CHEST 04/27/2019 5:05 PM FINDINGS: Pulmonary arteries: Normal. No pulmonary emboli. Aorta: The aorta demonstrates mild atherosclerotic calcification. There is fusiform dilatation of the ascending thoracic aorta which measures 3.6 cm. maximally. There is no dissection or saccular component. Thyroid: Multiple small peripheral pulmonary parenchymal nodules measure up to 10 mm the right lobe. Inflammatory lesions versus malignant nodules to be considered clinically. Lungs: [id number] centrilobular and paraseptal emphysema most pronounced in the upper lung zones. Partially cavitated nodule lesion demonstrated at the left lung base posteriorly measures 1.4 x 2 cm. Spiculated nodule left lower lobe measures 1.3 x 0.8 cm. Pleural base mass with spiculated margins in the left lower lobe measures 3.2 x 3.1 cm. Smaller spiculated opacity demonstrated in the medial aspect of the right lower lobe measures 1.2 x 2.1 cm. Correlation with PET imaging recommended to exclude neoplasm. A multiple small peripheral foci of peribronchial infiltration demonstrated bilaterally may represent infectious or inflammatory related airway disease. Pleural space: Unremarkable. No pneumothorax. No pleural effusion. Heart: There is moderate atherosclerotic calcification of the coronary arteries. Gallbladder and bile ducts: Cholecystectomy. Nonobstructive calculus upper pole left kidney. Lymph nodes: Unremarkable. No enlarged lymph nodes. Bones/joints: The spine demonstrates moderate degenerative changes. Soft tissues: Unremarkable. IMPRESSION: 1. Partially cavitated nodule lesion demonstrated at the left lung base posteriorly measures 1.4 x 2 cm. Spiculated nodule left lower lobe measures 1.3 x 0.8 cm. Pleural base mass with spiculated margins in the left lower lobe measures 3.2 x 3.1 cm. Smaller spiculated opacity demonstrated in the medial aspect of the right lower lobe measures 1.2 x 2.1 cm. Correlation with PET imaging recommended to exclude neoplasm. 2. A multiple small peripheral foci of peribronchial infiltration demonstrated bilaterally may represent infectious or inflammatory related airway disease. 3. Multiple small peripheral pulmonary parenchymal nodules measure up to 10 mm the right lobe. Inflammatory lesions versus malignant nodules to be considered clinically. 4. There is fusiform dilatation of the ascending thoracic aorta which measures 3.6 cm. maximally. There is no dissection or saccular component. 5. There are no pulmonary emboli. COMMENTS: Consistent with the [employer]'s Incidental Findings Committee white paper (J Am Sreedhar Radiol 2015): In patients aged 35 years and older with an incidental thyroid nodule equal to or greater than 1.[address], MRI or extrathyroidal US, further evaluation with dedicated thyroid US is recommended for patients with normal life expectancy and without comorbidities. For smaller nodules without suspicious features, no further evaluation or follow up is recommended. Electronically signed by: Joe Bradford On 08/04/2019 21:57:17 PM
--- NOTE | 2019-08-04 22:45 | REP ---
REASON: Near syncopal episode. COMPARISON: 06/28/2019 The technique utilized in obtaining the radiograph has magnified the cardiac silhouette and accentuated the interstitial markings. There is a discoid opacity in the left lower lobe, likely representing subsegmental atelectatic change. The pleural angles are sharp, and the lung forte are otherwise clear and stable. The osseous structures are stable and intact. IMPRESSION: Likely subsegmental atelectatic change left lower lobe. Electronically Signed by Miguel Duran DO 08/05/2019 08:35 A
--- NOTE | 2019-08-05 03:49 | ECGEPIP ---
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
--- NOTE | 2019-08-05 09:29 | ED PDOC ---
Post-Departure Follow-Up helen estrada and kermit faxed formal report of cta chest for fu Amrit Haley MD Aug 05, 2019 09:29
--- NOTE | 2019-08-05 09:32 | ED PDOC ---
Post-Departure Follow-Up dr carmen faxed formal report of ct c spine fo rfu Amrit Haley MD Aug 05, 2019 09:32
== END 2019-08-04 22:45 | disposition home or self-care (01) ==
LOC: M ED 18:37
DX: S09.90XA Unspecified injury of head, initial encounter (principal); W22.09XA Striking against other stationary object, initial encounter; Y92.019 Unspecified place in single-family (private) house as the place of occurrence of the external cause; R91.8 Other nonspecific abnormal finding of lung field; R42 Dizziness and giddiness; M50.31 Other cervical disc degeneration, high cervical region; M47.812 Spondylosis without myelopathy or radiculopathy, cervical region; M25.78 Osteophyte, vertebrae; I48.91 Unspecified atrial fibrillation; I25.10 Atherosclerotic heart disease of native coronary artery without angina pectoris; I50.20 Unspecified systolic (congestive) heart failure; E11.9 Type 2 diabetes mellitus without complications; G47.33 Obstructive sleep apnea (adult) (pediatric); J44.9 Chronic obstructive pulmonary disease, unspecified; M54.5 Low back pain; G40.509 Epileptic seizures related to external causes, not intractable, without status epilepticus; F20.9 Schizophrenia, unspecified; Z88.0 Allergy status to penicillin; Z88.6 Allergy status to analgesic agent; Z88.8 Allergy status to other drugs, medicaments and biological substances; Z91.013 Allergy to seafood; Z79.51 Long term (current) use of inhaled steroids; Z79.82 Long term (current) use of aspirin; Z79.899 Other long term (current) drug therapy
CPT/HCPCS: 70450; 71045; 71275; 72125; 80048; 82550; 82553; 84439; 84443; 84484; 85025; 85610; 85730; 93005; 93041; 94760; 96360; 99285; Q9967

== ENCOUNTER 2019-08-27 12:33 | Emergency (ER) | payer MEDICARE, MEDICAID ==
[~2019-08-27] VITALS: Ht 172.7 cm; Wt 58.2 kg
[2019-08-27 13:37] LABS: BASO # 0.1 10^3/uL (0.0-0.2); BASO % 1.1 % (0.0-1.0); EOS # 0.2 10^3/uL (0.0-0.5); EOS % 3.6 % (0.0-3.0); HEMATOCRIT 40.5 % (42.0-52.0); HEMOGLOBIN 13.9 g/dl (13.5-17.5); LYMPH # 2.5 10^3/uL (1.5-5.0); LYMPH % 38.3 % (24.0-44.0); MEAN CORPUSCULAR HEMOGLOBIN 31.4 pg (27.0-33.0); MEAN CORPUSCULAR HGB CONC 34.3 g/dl (32.0-36.5); MEAN CORPUSCULAR VOLUME 91.6 fl (80.0-96.0); MONO # 0.6 10^3/uL (0.0-0.8); MONO % 8.7 % (0.0-5.0); NEUTROPHILS # 3.1 10^3/uL (1.5-8.5); PLATELET COUNT, AUTOMATED 226 10^3/uL (150-450); RED BLOOD COUNT 4.42 10^6/uL (4.30-6.10); WHITE BLOOD COUNT 6.5 10^3/uL (4.0-10.0)
[2019-08-27 14:00] LABS: ALBUMIN 3.5 GM/DL (3.2-5.2); ALT/SGPT 52 U/L (12-78); BILIRUBIN,DIRECT < 0.1 MG/DL (0.0-0.2); BILIRUBIN,TOTAL 0.4 MG/DL (0.2-1.0); BLOOD UREA NITROGEN 11 MG/DL (7-18); CALCIUM LEVEL 8.9 MG/DL (8.8-10.2); CARBON DIOXIDE LEVEL 25 MEQ/L (21-32); CHLORIDE LEVEL 106 MEQ/L (98-107); CK-MB VALUE MASS 1.5 NG/ML (<3.6); CPK CREATINE PHOSPHOKINASE 99 U/L (39-308); CREATININE FOR GFR 0.71 MG/DL (0.70-1.30); GLOMERULAR FILTRATION RATE > 60.0 (>49); GLUCOSE, FASTING 316 MG/DL (70-100); MB/CK RELATIVE INDEX 1.52 (< OR =4); NT-PRO BNP 13 PG/ML (<125); POTASSIUM SERUM 4.2 MEQ/L (3.5-5.1); SODIUM LEVEL 137 MEQ/L (136-145); TROPONIN I < 0.02 NG/ML (< 0.10)
--- NOTE | 2019-08-27 14:28 | REP ---
PORTABLE CHEST X-RAY: Single view. HISTORY: Dyspnea and cough. COMPARISON CHEST X-RAY: August 04, 2019. FINDINGS: Monitoring electrodes are seen. The lungs are symmetrically aerated and clear. Pleural angles are sharp. Heart is not enlarged. The aorta is calcific. There are degenerative changes in the thoracic spine. IMPRESSION: No active disease. Electronically Signed by Gerardo Key MD 08/27/2019 04:17 P
[2019-08-27 14:45] VITALS: BP 122/74
[2019-08-27 15:23] VITALS: O2SAT 94
--- NOTE | 2019-08-27 22:18 | ECGEPIP ---
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
== END 2019-08-27 16:10 | disposition home or self-care (01) ==
LOC: M ED 12:33 → EDBD 12:33 → M ED 16:10
DX: R53.1 Weakness (principal); R05 Cough; C34.90 Malignant neoplasm of unspecified part of unspecified bronchus or lung; I48.91 Unspecified atrial fibrillation; I11.9 Hypertensive heart disease without heart failure; E11.9 Type 2 diabetes mellitus without complications; I25.10 Atherosclerotic heart disease of native coronary artery without angina pectoris; G40.909 Epilepsy, unspecified, not intractable, without status epilepticus; M54.9 Dorsalgia, unspecified; G20 Parkinson's disease; F17.200 Nicotine dependence, unspecified, uncomplicated; Z88.0 Allergy status to penicillin; Z88.6 Allergy status to analgesic agent; Z88.1 Allergy status to other antibiotic agents; Z88.8 Allergy status to other drugs, medicaments and biological substances; Z91.013 Allergy to seafood; Z79.899 Other long term (current) drug therapy; Z79.52 Long term (current) use of systemic steroids; Z79.4 Long term (current) use of insulin; Z79.51 Long term (current) use of inhaled steroids; Z79.01 Long term (current) use of anticoagulants

== ENCOUNTER 2019-10-06 11:15 | Emergency (ER) | payer MEDICARE, MEDICAID ==
[~2019-10-06] VITALS: Ht 172.7 cm; Wt 53.2 kg
[2019-10-06 12:05] LABS: BASO # 0.1 10^3/uL (0.0-0.2); BASO % 1.2 % (0.0-1.0); EOS # 0.4 10^3/uL (0.0-0.5); EOS % 5.9 % (0.0-3.0); HEMATOCRIT 46.9 % (42.0-52.0); HEMOGLOBIN 15.9 g/dl (13.5-17.5); LYMPH # 2.1 10^3/uL (1.5-5.0); LYMPH % 28.7 % (24.0-44.0); MEAN CORPUSCULAR HEMOGLOBIN 30.5 pg (27.0-33.0); MEAN CORPUSCULAR HGB CONC 33.9 g/dl (32.0-36.5); MEAN CORPUSCULAR VOLUME 89.8 fl (80.0-96.0); MONO # 0.6 10^3/uL (0.0-0.8); MONO % 8.4 % (0.0-5.0); NEUTROPHILS # 4.1 10^3/uL (1.5-8.5); NEUTROPHILS % 55.7 % (36.0-66.0); PLATELET COUNT, AUTOMATED 249 10^3/uL (150-450); RED BLOOD COUNT 5.22 10^6/uL (4.30-6.10); WHITE BLOOD COUNT 7.4 10^3/uL (4.0-10.0)
--- NOTE | 2019-10-06 12:13 | REP ---
CHEST, SINGLE VIEW: Single view of the chest is performed and compared to prior studies, most recently 08/27/2019. There is no acute infiltrate. The lung forte appear unchanged. The heart is normal in size. The mediastinal silhouette is unchanged with mild calcification of the thoracic aorta. There are degenerative changes of the spine. IMPRESSION: No evidence of acute infiltrate. Electronically Signed by Tulio Poole MD 10/07/2019 04:37 P
[2019-10-06] MEDS ORDERED: MORPHINE 4 MG/ML 1ML VIAL/SYRINGE (J2270) IV ONE (12:15)
[2019-10-06 12:23] LABS: INR 1.26; PROTHROMBIN TIME 15.5 SECONDS (11.8-14.0)
[2019-10-06 12:23] LABS: BLOOD UREA NITROGEN 15 MG/DL (7-18); CALCIUM LEVEL 9.5 MG/DL (8.8-10.2); CARBON DIOXIDE LEVEL 27 MEQ/L (21-32); CHLORIDE LEVEL 103 MEQ/L (98-107); CREATININE FOR GFR 0.78 MG/DL (0.70-1.30); GLOMERULAR FILTRATION RATE > 60.0 (>49); GLUCOSE, FASTING 328 MG/DL (70-100); POTASSIUM SERUM 3.9 MEQ/L (3.5-5.1); SODIUM LEVEL 134 MEQ/L (136-145)
[2019-10-06 12:24] LABS: PARTIAL THROMBOPLASTIN TIME 34.7 SECONDS (25.0-38.4)
[2019-10-06] MEDS ORDERED: ALBUTEROL 90 MCG/ACT 8GM HFA INHALER INH ONE (12:30)
[2019-10-06 13:10] LABS: DIGOXIN LEVEL 0.6 NG/ML (0.5-2.0)
[2019-10-06] MEDS ORDERED: ESOM40CA35 (13:40)
[2019-10-06] MEDS ORDERED: LEVE500T5 (13:40)
[2019-10-06] MEDS ORDERED: ROSU5TAB5 (13:40)
[2019-10-06] MEDS ORDERED: GLIM2TAB4 (13:40)
[2019-10-06 16:45] VITALS: BP 109/73
--- NOTE | 2019-10-07 09:32 | ECGEPIP ---
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
[2019-10-07 16:08] LABS: TOPIRAMATE LEVEL 2.5 ug/mL (2.0-25.0)
== END 2019-10-06 17:05 | disposition home or self-care (01) ==
LOC: M ED 11:15
DX: R07.9 Chest pain, unspecified (principal); F17.200 Nicotine dependence, unspecified, uncomplicated; Z91.013 Allergy to seafood; Z88.1 Allergy status to other antibiotic agents; Z88.8 Allergy status to other drugs, medicaments and biological substances
CPT/HCPCS: 71045; 80048; 80162; 80299; 84484; 85025; 85610; 85730; 93005; 93041; 94640; 94760; 96374; 99285; J2270

== ENCOUNTER → 2019-10-09 | Outpatient (CLI) | payer MEDICARE, MEDICAID ==
[~2019-10-09] MED LIST changes: +ESOM40CA35; +GLIM2TAB4; +LEVE500T5; +ROSU5TAB5; +VALA1TAB5 PO
--- NOTE | 2019-10-09 17:42 | REP ---
CT CHEST WITHOUT CONTRAST: HISTORY: Abnormal findings of the lung field. Comparison chest CT study, August 04 2019 and June 11, 2019. August 21, 2018 prior study is also reviewed. CT FINDINGS: The previously noted areas of mass-like consolidation in the left lower lobe have virtually resolved. There is some residual post-inflammatory scarring. There is a stable 5 mm nodule in the left lower lobe, unchanged from August 21, 2018 study. No pulmonary mass or new nodule is appreciated. No hilar or mediastinal mass or adenopathy is seen. Fairly extensive vascular calcification is seen including coronary artery vascular calcification. There is no pleural or pericardial effusion. Fluid and some air is seen in the esophagus, consistent with reflux. In the upper abdomen, there is nephrolithiasis in the upper pole of the left kidney. The gallbladder is surgically absent. IMPRESSION: Virtually resolved inflammatory changes in the left lower lobe, much improved when compared with the August 04, 2019 study. Stable left lower lobe 5 mm pulmonary nodule. Emphysematous changes again noted. Coronary artery vascular calcification and left upper pole nephrolithiasis. Electronically Signed by Gerardo Key MD 10/11/2019 06:14 P
== END ==
LOC: M RAD 13:22
PROVIDERS: ATTEND Internal Medicine Pulmonary Disease
DX: R91.1 Solitary pulmonary nodule (principal); N20.0 Calculus of kidney; I25.10 Atherosclerotic heart disease of native coronary artery without angina pectoris

== ENCOUNTER 2019-10-20 11:05 | Emergency (ER) | payer MEDICARE, MEDICAID ==
[~2019-10-20] VITALS: Ht 172.7 cm; Wt 65.0 kg
[~2019-10-20 11:05] MED LIST changes: -VALA1TAB5 PO
[2019-10-20] MEDS ORDERED: VALA1TAB5 PO (12:06)
[2019-10-20] MEDS ORDERED: GABA-1171 PO (12:06)
[2019-10-20] MEDS ORDERED: valACYclovir HCL 500 MG TAB PO ONE (12:15)
[2019-10-20 12:22] VITALS: BP 141/82
== END 2019-10-20 12:25 | disposition home or self-care (01) ==
LOC: M ED 11:05
DX: B02.9 Zoster without complications (principal); J45.909 Unspecified asthma, uncomplicated; J44.9 Chronic obstructive pulmonary disease, unspecified; F17.200 Nicotine dependence, unspecified, uncomplicated; Z79.4 Long term (current) use of insulin; Z79.51 Long term (current) use of inhaled steroids; Z79.52 Long term (current) use of systemic steroids; Z79.82 Long term (current) use of aspirin; Z79.899 Other long term (current) drug therapy; Z88.0 Allergy status to penicillin; Z88.6 Allergy status to analgesic agent; Z88.8 Allergy status to other drugs, medicaments and biological substances; Z91.013 Allergy to seafood

== ENCOUNTER 2019-10-28 20:10 | Emergency (ER) | payer MEDICARE, MEDICAID ==
[~2019-10-28] VITALS: Ht 172.7 cm; Wt 64.5 kg
[~2019-10-28 20:10] MED LIST changes: -FLUO10CA15 PO; +FLUO10CA16 PO; +VALA1TAB5 PO
[2019-10-28] MEDS ORDERED: traMADol 50 MG TAB PO ONE (21:45)
[2019-10-28] MEDS ORDERED: LIDOCAINE 5% (LIDODERM) PATCH TD ONE (21:45)
[2019-10-28 22:24] VITALS: BP 129/88
--- NOTE | 2019-10-29 08:06 | REP ---
REASON: Trauma. PRIORS: None. Degenerative changes are seen involving the acromioclavicular and glenohumeral joint. There is asymmetric joint space narrowing and osteophytosis. There is no acute fracture, dislocation, or subluxation IMPRESSION: Chronic changes. Electronically Signed by Miguel Duran DO 10/29/2019 08:11 A
[2019-10-29] MEDS ORDERED: **NOTE PATIENT COMMENT** MISC XX ONE (09:45)
== END 2019-10-28 22:37 | disposition home or self-care (01) ==
LOC: M ED 20:10
DX: M25.511 Pain in right shoulder (principal); G20 Parkinson's disease; E11.9 Type 2 diabetes mellitus without complications; F17.200 Nicotine dependence, unspecified, uncomplicated; Z79.01 Long term (current) use of anticoagulants; Z79.4 Long term (current) use of insulin; Z79.51 Long term (current) use of inhaled steroids; Z79.82 Long term (current) use of aspirin; Z79.891 Long term (current) use of opiate analgesic; Z79.899 Other long term (current) drug therapy; Z88.0 Allergy status to penicillin; Z88.1 Allergy status to other antibiotic agents; Z88.6 Allergy status to analgesic agent; Z88.8 Allergy status to other drugs, medicaments and biological substances; Z91.013 Allergy to seafood

== ENCOUNTER 2019-12-09 03:42 | Inpatient (IN) | payer MEDICARE, MEDICAID ==
[2019-12-09 04:25] LABS: BASO # 0.1 10^3/uL (0.0-0.2); BASO % 0.5 % (0.0-1.0); EOS # 0.1 10^3/uL (0.0-0.5); EOS % 1.1 % (0.0-3.0); HEMATOCRIT 42.7 % (42.0-52.0); LYMPH # 1.9 10^3/uL (1.5-5.0); LYMPH % 17.1 % (24.0-44.0); MEAN CORPUSCULAR HEMOGLOBIN 31.5 pg (27.0-33.0); MEAN CORPUSCULAR HGB CONC 35.1 g/dl (32.0-36.5); MEAN CORPUSCULAR VOLUME 89.7 fl (80.0-96.0); MONO # 0.6 10^3/uL (0.0-0.8); MONO % 5.8 % (0.0-5.0); NEUTROPHILS # 8.4 10^3/uL (1.5-8.5); NEUTROPHILS % 75.3 % (36.0-66.0); PLATELET COUNT, AUTOMATED 228 10^3/uL (150-450); RED BLOOD COUNT 4.76 10^6/uL (4.30-6.10); WHITE BLOOD COUNT 11.1 10^3/uL (4.0-10.0)
--- NOTE | 2019-12-09 04:31 | REPVR ---
PROCEDURE INFORMATION: Exam: CT Head Without Contrast Exam date and time: 12/09/2019 3:56 AM Age: 64 years old Clinical indication: Injury or trauma; Fall; Initial encounter; Concussion / head injury; Consciousness not specified; Additional info: Altered mental status/fall TECHNIQUE: Imaging protocol: Computed tomography of the head without contrast. Radiation optimization: All CT scans at this facility use at least one of these dose optimization techniques: automated exposure control; mA and/or kV adjustment per patient size (includes targeted exams where dose is matched to clinical indication); or iterative reconstruction. COMPARISON: 1. CT Head without contrast 08/04/2019 7:[address] Head without contrast 06/11/2019 10:06:51 PM FINDINGS: Brain: There is moderate, diffuse parenchymal volume loss, unchanged. There is no evidence of intracranial hemorrhage. The cortical/white matter interfaces are preserved throughout the brain. Ventricles: The ventricular system demonstrates stable moderate diffuse enlargement. Bones/joints: No acute fractures of the skull are identified. Sinuses: There is a benign sinus mucous retention cyst or polyp in the right maxillary sinus and a partially visualized cyst or polyp in the left maxillary sinus, also present on the prior exam. There is mild patchy mucoperiosteal thickening in the ethmoid sinus, without fluid levels. Mastoid air cells: The mastoid air cells are clear. Soft tissues: The soft tissues appear unremarkable. IMPRESSION: 1. No evidence of acute intracranial injury. 2. Stable appearance of the brain. Parenchymal volume loss and stable ventricular enlargement. 3. Evidence of mild chronic sinusitis. Electronically signed by: Bernadine Cardoza On 12/09/2019 04:31:08 AM
[2019-12-09 04:32] LABS: VENOUS BASE EXCESS -3.5 (-2.0-2.0); VENOUS HCO3 23.8 MEQ/L (23.0-27.0); VENOUS PARTIAL PRESSURE CO2 51.8 mmHg (38.0-50.0); VENOUS PARTIAL PRESSURE O2 34.5 mmHg (30.0-50.0); VENOUS PH 7.281 UNITS (7.330-7.430); VENOUS TOTAL CO2 25.4 MEQ/L (24.0-28.0)
[2019-12-09 04:33] LABS: VENOUS STANDARD HCO3 20.6 MEQ/L
--- NOTE | 2019-12-09 04:41 | REPVR ---
PROCEDURE INFORMATION: Exam: CT Cervical Spine Without Contrast Exam date and time: 12/09/2019 3:45 AM Age: 64 years old Clinical indication: Neck pain; Additional info: Altered mental status/fall TECHNIQUE: Imaging protocol: Computed tomography images of the cervical spine without contrast. Radiation optimization: All CT scans at this facility use at least one of these dose optimization techniques: automated exposure control; mA and/or kV adjustment per patient size (includes targeted exams where dose is matched to clinical indication); or iterative reconstruction. COMPARISON: CT Spine,cervical w/o contrast 08/04/2019 7:12 PM FINDINGS: Limitations: There is motion artifact. Vertebrae: No acute fractures are identified. There is a mild leftward convex curvature through the mid cervical spine which appears unchanged from the prior exam. 2 mm of retrolisthesis of C3 on C4 is unchanged. There is facet arthropathy throughout the cervical spine. This is particularly prominent on the left side at C2-C3, bilaterally at C4-C5, and on the right side at C5-C6. Endplate spurs are seen throughout the cervical spine, without significant change. Discs/Spinal canal/Neural foramina: There is advanced disc space narrowing at C3-C4. There is a disc osteophyte complex at this level which appears grossly unchanged from the prior exam. Moderate central canal stenosis and bony encroachment upon the bilateral neural foramen at C3-C4 appears grossly unchanged. Mild disc space narrowing and additional, smaller disc osteophyte complexes are also seen from C4-C5 through C6-C7, without significant change. Prevertebral Space: The prevertebral soft tissues appear normal. Soft tissues: Nuchal ligament ossification is incidentally noted at the level of C5 and C6. Sinuses: There is opacity in the partially visualized left maxillary sinus probably representing a retention cyst or polyp which was also visible on the prior CT scan. Hypopharynx: There are retained secretions within the hypopharynx. Lungs: There is evidence of emphysema. Assessment of the apices is limited by motion. IMPRESSION: 1. No acute fractures identified. There is motion artifact which could limit the sensitivity for detection of nondisplaced fractures. 2. Small retrolisthesis of C3 on C4, without significant change. 3. Multilevel degenerative disc disease, most advanced at C3-C4, without significant change. 4. Multilevel facet arthropathy, without significant change. Electronically signed by: Bernadine Cardoza On 12/09/2019 04:41:57 AM
[2019-12-09 04:54] LABS: OSMOLALITY SERUM 305 MOSM/KG (280-301)
[2019-12-09] MEDS ORDERED: dexameTHASONE 20MG/5ML VIAL (J1100 PER 1MG) IV ONE (05:00)
[2019-12-09] MEDS: COMBIVENT RESPIMAT 100-20MCG INHALER 4GM INH SCH ×3 (05:03→15:20)
[2019-12-09 05:18] LABS: ACETAMINOPHEN LEVEL < 2.0 UG/ML (10.0-30.0); ALT/SGPT 24 U/L (12-78); BILIRUBIN,DIRECT 0.2 MG/DL (0.0-0.2); BILIRUBIN,TOTAL 0.6 MG/DL (0.2-1.0); BLOOD UREA NITROGEN 22 MG/DL (7-18); CALCIUM LEVEL 9.5 MG/DL (8.8-10.2); CARBON DIOXIDE LEVEL 26 MEQ/L (21-32); CHLORIDE LEVEL 104 MEQ/L (98-107); CK-MB VALUE MASS 4.6 NG/ML (<3.6); CPK CREATINE PHOSPHOKINASE 259 U/L (39-308); ETHYL ALCOHOL (ETHANOL) < 0.003 % (0.000-0.010); GLOMERULAR FILTRATION RATE > 60.0 (>49); GLUCOSE, FASTING 363 MG/DL (70-100); MB/CK RELATIVE INDEX 1.78 (< OR =4); POTASSIUM SERUM 5.1 MEQ/L (3.5-5.1); SALICYLATE LEVEL 2.2 MG/DL (5.0-30.0); SODIUM LEVEL 135 MEQ/L (136-145); TROPONIN I < 0.02 NG/ML (< 0.10)
[2019-12-09 06:47] LABS: NT-PRO BNP 30 PG/ML (<125)
[2019-12-09] MEDS ORDERED: INSUHUMDS SC (06:48)
[2019-12-09] MEDS ORDERED: KEPP1TAB PO (06:48)
[2019-12-09] MEDS ORDERED: BASA100I SC (06:48)
[2019-12-09] MEDS ORDERED: MIRA1POW3 PO (06:49)
[2019-12-09] MEDS ORDERED: FOLIC ACID 1 MG TAB PO SCH (09:00)
[2019-12-09] MEDS ORDERED: COMBIVENT RESPIMAT 100-20MCG INHALER 4GM INH PRN (09:30)
[2019-12-09] MEDS ORDERED: LORazepam 2 MG TAB PO PRN (09:30)
[2019-12-09] MEDS ORDERED: ACETAMINOPHEN TAB 650MG DOSE (2X325MG) PO PRN (09:30)
[2019-12-09] MEDS ORDERED: MIRALAX *UNIT DOSE* 17GM PACKET PO PRN (09:30)
[2019-12-09] MEDS ORDERED: PILL CUTTER 1 EACH XX PRN (10:00)
--- NOTE | 2019-12-09 10:15 | REPVR ---
PROCEDURE INFORMATION: Exam: XR Lumbosacral Spine, 4 or 5 Views Exam date and time: 12/09/2019 9:45 AM Age: 64 years old Clinical indication: Low back pain TECHNIQUE: Imaging protocol: XR of the lumbosacral spine, 4 or 5 views. COMPARISON: CR Spine. Lumbosacral, complete 01/19/2017 9:03 PM FINDINGS: Vertebrae: No acute fractures seen in the lumbar spine. Mild, less than 15% anterolisthesis of L4 upon L5. Chronic degenerative vertebral body endplate osteophytosis anteriorly with diminished disc height at multiple levels, at T12-L5. Soft tissues: Unremarkable. IMPRESSION: 1. No acute fractures seen in the lumbar spine. 2. Mild, less than 15% anterolisthesis of L4 upon L5. 3. Chronic degenerative vertebral body endplate osteophytosis anteriorly with diminished disc height at multiple levels, at T12-L5. Electronically signed by: Olayinka Lind On 12/09/2019 10:15:31 AM
[2019-12-09] MEDS: ASPIRIN 81 MG ENTERIC TAB PO SCH (10:45)
[2019-12-09] MEDS: OMEPRAZOLE 20 MG CAP PO SCH (10:45)
[2019-12-09] MEDS: CYCLOBENZAPRINE 10MG TABLET PO SCH ×2 (10:45→15:18)
[2019-12-09] MEDS: GABAPENTIN 300 MG CAP PO SCH ×2 (10:46→15:18)
[2019-12-09] MEDS: hydrOXYzine 25 MG TAB PO SCH ×3 (10:46→21:19)
[2019-12-09] MEDS: APIXABAN 5 MG TAB (ELIQUIS) PO SCH ×2 (10:47→21:20)
[2019-12-09] MEDS: levETIRAcetam 250MG TABLET (KEPPRA) PO SCH ×2 (10:47→21:20)
[2019-12-09] MEDS: LORATADINE 10 MG TAB PO SCH (10:47)
[2019-12-09] MEDS: DIGOXIN 0.125 MG TAB PO SCH (10:47)
[2019-12-09] MEDS: TOPIRAMATE (TopAMAX) 25 MG TAB PO SCH ×2 (10:48→21:20)
[2019-12-09] MEDS ORDERED: MULTIVITAMIN -ADULT INJECTION 10 ML, THIAMINE INJection 100 MG, FOLIC ACID 1 MG in NS 1... IV ONE (11:00)
[2019-12-09 12:27] LABS: PHOSPHORUS LEVEL 4.1 MG/DL (2.5-4.9)
[2019-12-09 12:39] LABS: FOLATE 20.3 NG/ML (>5.4)
[2019-12-09 14:10] VITALS: BP 145/75
[2019-12-09] MEDS: ADVAIR HFA 230/21MCG INHALER INH SCH ×2 (15:19→19:05)
[2019-12-09] MEDS: ramipriL 1.25 MG CAP PO SCH (15:19)
[2019-12-09] MEDS ORDERED: DEXTROSE 50% 50 ML SYRINGE IV PRN (16:00)
[2019-12-09] MEDS ORDERED: NS 1,000 ML IV SCH (16:00)
[2019-12-09] MEDS ORDERED: GLUCOSE 4GM CHEW TABLET PO PRN (16:00)
[2019-12-09] MEDS ORDERED: GLUCAGON INJ 1MG VIAL SC PRN (16:00)
--- NOTE | 2019-12-09 16:06 | HPEPDOC ---
[facility] Medical History & Physical Date of Admission Dec 09, 2019 Date of Service: Dec 09, 2019 Primary Care Physician: Rufus Stein Attending Physician: BOYD JACKSON MD History and Physical CHIEF COMPLAINT: Weakness HISTORY OF PRESENT ILLNESS: Patient is a 64 year old male presenting with a less than 24 hour history of sudden onset lower extremity weakness. Patient states he was walking in his living room at home and suddenly collapsed and was unable to get up because he simply felt too weak. He says this is not the first time this has happened and he has fallen multiple times in the last 24 hours. He denies any numbness, tingling, loss of bowel/bladder control in that time period. He was brought to [facility] ED by EMS after his neighbors went to check on him and found him down. He does admit to LOC and hitting his head on the fall. On arrival to the ED he was apparently altered and wheezing. Head and neck CT were negative for acute pathology and his wheezing improved with decadron and duoneb treatment. However he was still weak and altered so the hospitalist service was called for admission. PAST MEDICAL HISTORY: #. Type 2 diabetes #. Atrial fibrillation #. COPD #. Hypertension #. ETOH use disorder #. Hx of CAD #. GERD #. Seizure disorder #. Legally blind #. Depression #.Hx of Parkinson's disease PAST SURGICAL HISTORY: 1. Appendectomy. 2. Bilateral foot surgery. 3. Cholecystectomy 4. Gastrectomy. SOCIAL HISTORY: 1 PPD smoker for "many years", drinks 1 pint of whiskey/day. No illicit drug use. Lives alone. FAMILY HISTORY: No pertinent family history. ALLERGIES: Please see below. REVIEW OF SYSTEMS: CONSTITUTIONAL: Denies fevers, chills, recent unexpected weight change HEENT: Denies headache, dizziness, vision changes, hearing changes, or throat pain. CARDIOVASCULAR: Denies chest pain, palpitations, dyspnea on exertion RESPIRATORY: Denies wheezing, cough, dyspnea, or hemoptysis GASTROINTESTINAL: Denies nausea, vomiting, abdominal pain, constipation, diarrhea, melena, hematochezia GENITOURINARY: Denies dysuria, hematuria, frequency. Admits to history of incontinence. SKIN: Denies skin changes or rashes. MUSCULOSKELETAL: Admits to lower extremity weakness. Denies muscle aches or pains, joint aches or tenderness. NEUROLOGICAL: Denies numbness, tingling, focal weakness, PSYCHIATRIC: Denies SI, HI, AVH ENDOCRINE: Denies heat/cold intolerance HOME MEDICATIONS: Please see below. PHYSICAL EXAMINATION: VITAL SIGNS: see below GENERAL APPEARANCE: Elderly appearing male who appears older than stated age resting comfortable in bed in no acute distress breathing comfortably. HEENT: NC, Left eye brow abrasion, Flinches but does not move either eye. Right eye stuck down and out. Both pupils equal, round, reactive to light and accommodation. Nares patent. Dry mucous membranes. No pharyngeal erythema. CARDIOVASCULAR: Irregular rate and rhythm. Tachycardic. +S1 and S2. LUNGS: CTAB with full breath sounds. No wheezes, crackles, or rhonchi, no dullness to percussion. ABDOMEN: Soft, non-tender, non-distended. No masses or eccymosis. No hepatosplenomegaly. MUSCULOSKELETAL: No shoulder, ribs, hips, knee, or ankle instability. Strength +5/5 in bilateral upper and lower extremities with strong encouragement and incr eased interest in exam. EXTREMITIES: No swelling or edema. NEUROLOGICAL: CN III, IV, unable to be evaluated. Other cranial nerves normal. Plantar reflex intact. Sensation intact in bilateral UE and LE. See above for MSK exam. PSYCHIATRIC: Normal mood and affect LABORATORY DATA: See below. IMAGING: CT head without contrast: IMPRESSION: 1. No evidence of acute intracranial injury. 2. Stable appearance of the brain. Parenchymal volume loss and stable ventricular enlargement. 3. Evidence of mild chronic sinusitis. Cervical spine CT: IMPRESSION: 1. No acute fractures identified. There is motion artifact which could limit the sensitivity for detection of nondisplaced fractures. 2. Small retrolisthesis of C3 on C4, without significant change. 3. Multilevel degenerative disc disease, most advanced at C3-C4, without significant change. 4. Multilevel facet arthropathy, without significant change. Lumbosacral spine XR: IMPRESSION: 1. No acute fractures seen in the lumbar spine. 2. Mild, less than 15% anterolisthesis of L4 upon L5. 3. Chronic degenerative vertebral body endplate osteophytosis anteriorly with diminished disc height at multiple levels, at T12-L5. MICROBIOLOGY: Please see below. Assessment/Plan: Patient is a 64 year old male with PMHx of generalized weakness, alcohol use disorder, recurrent falls presents with generalized weakness #. Generalized weakness - CT head negative, given CN deficit of unknown time length will order MRI to see if this happened recently though stroke unlikely given he is on Eliquis and he is well outside the window. - History of recurrent falls, unclear whether he has syncopized and this is why he is falling vs EtOH intoxication, or general deconditioning. EtOH negative, tox screen negative, UA negative. - Ordering echo to check for syncope of cardiogenic origin. - Ordering PT/OT for weakness - PFS consulted for possible placement though I'm not sure he is amenable to it. #. EtOH use disorder -[facility] protocol ordered -Giving banana bag and 1 additional liter of NS -B12, folic acid. -Last drink on 12/08/2019, continue to monitor for DTs #. Type 2 diabetes -Sliding scale insulin -Levemir 20 units daily ordered #. Atrial fibrillation -Continue with home digoxin, diltiazem. patient tachycardic in ED, but rate better controlled as of 1400. Can consider PO beta shorty if necessary -Continue Eliquis #. COPD -Continue home combivent, advair, proventil HFA #. Hypertension - Continue diltiazem #. Hx of CAD -Continue with Rosuvastatin #. GERD -Continue home omeprazole #. Seizure disorder - Continue home keppra, tropomax #. Depression - Continue trazodone #. Hx of Parkinson's disease - Not on any medication outpatient DVT prophylaxis: Continue Eliquis Vital Signs Vital Signs Date Time Temp Pulse Resp B/P (MAP) Pulse Ox O2 Delivery O2 Flow Rate FiO2 12/09/19 14:10 64 145/75 12/09/19 13:42 96.8 12/09/19 13:30 18 97 Room Air Laboratory Data Labs 24H Laboratory Tests 2 12/09/19 04:15: Immature Granulocyte % (Auto) 0.2, Neutrophils (%) (Auto) 75.3H, Lymphocytes (%) (Auto) 17.1L, Monocytes (%) (Auto) 5.8H, Eosinophils (%) (Auto) 1.1, Basophils (%) (Auto) 0.5, Neutrophils # (Auto) 8.4, Lymphocytes # (Auto) 1.9, Monocytes # (Auto) 0.6, Eosinophils # (Auto) 0.1, Basophils # (Auto) 0.1, Nucleated Red Blood Cells % (auto) 0.0, Blood Gas Bicarbonate Standard 20.6, Venous Blood pH 7.281L, Venous Blood Partial Pressure CO2 51.8H, Venous Blood Partial Pressure O2 34.5, Venous Blood Total Carbon Dioxide 25.4, Venous Blood HCO3 23.8, Venous Blood Oxygen Saturation 59.0L, Venous Blood Base Excess -3.5L, Anion Gap 5L, Glomerular Filtration Rate > 60.0, Osmolality 305H, Lactic Acid Level 1.8, Calcium Level 9.5, Total Bilirubin 0.6, Direct Bilirubin 0.2, Aspartate Amino Transf (AST/SGOT) 16, Alanine Aminotransferase (ALT/SGPT) 24, Alkaline Phosphatase 101, Ammonia < 10, Total Creatine Kinase 259, Creatine Kinase MB 4.6H, Creatine Kinase MB Relative Index 1.78, Troponin I < 0.02, SC-Swj-Z-Type Natriuretic Peptide 30, Total Protein 8.0, Albumin 4.0, Albumin/Globulin Ratio 1.0, Thyroid Stimulating Hormone (TSH) 1.700, Salicylates Level 2.2L, Acetaminophen Level < 2.0L, Ethyl Alcohol Level < 0.003 12/09/19 11:47: Phosphorus Level 4.1, Vitamin B12 Level 802, Folate 20.3 12/09/19 15:15: CBC/BMP Laboratory Tests 12/09/19 04:15 Microbiology Microbiology 12/09/19 Blood Culture, Received Pending 12/09/19 Blood Culture, Received Pending Home Medications Scheduled Apixaban (Eliquis) 5 Mg Tab, 5 MG PO BID Aspirin (Aspirin EC) 81 Mg Tab, 81 MG PO DAILY Cyclobenzaprine HCl (Cyclobenzaprine HCl) 10 Mg Tablet, 10 MG PO TID 0800, 1200, QHS Digoxin (Digoxin) 125 Mcg Tab, 125 MCG PO DAILY Diltiazem HCl (Diltiazem 24Hr ER) 240 Mg Cap, 240 MG PO DAILY Esomeprazole Magnesium (Esomeprazole Magnesium) 40 Mg Cap, 40 MG PO DAILY Gabapentin (Gabapentin) 300 Mg Capsule, 300 MG PO TID 0800, 1200, QHS Glimepiride (Glimepiride) 2 Mg Tablet, 2 MG PO BID Hydroxyzine HCl (Hydroxyzine HCl) 25 Mg Tablet, 25 MG PO TID 0800, 1200, QHS Insulin Glargine,Hum.rec.anlog (Basaglar Kwikpen U-100) 100 Unit/1 Ml Insuln.pen, 35 UNIT SC DAILY Insulin Human Lispro (Humalog) 100 Unit/1 Ml Vial, 8 UNITS SC WM Levetiracetam (Keppra) 500 Mg Tablet, 500 MG PO BID Loratadine (Loratadine) 10 Mg Tab, 10 MG PO DAILY Ramipril (Ramipril) 1.25 Mg Capsule, 1.25 MG PO DAILY Rosuvastatin Calcium (Crestor) 5 Mg Tab, 5 MG PO QHS Salmeterol/Fluticasone (Advair 500-50 Diskus) 28 Puff/Inhaler Aerp, 1 PUFF INH BID Topiramate (Topiramate) 50 Mg Tab, 50 MG PO BID Trazodone HCl (Trazodone HCl) 100 Mg Tablet, 100 MG PO QHS Scheduled PRN Albuterol Sulfate (Ventolin Hfa) 108 Mcg/Act Aer, 2 PUFF INH QID PRN for SHORTNESS OF BREATH Ipratropium/Albuterol Sulfate (Combivent Respimat 20-100 Mcg) 4 Gm Mist.inhal, 1 PUFF INH QID PRN for SHORTNESS OF BREATH Nitroglycerin (Nitrostat) 0.4 Mg Subl, 0.4 MG SL NITRO PRN for CHEST PAIN Polyethylene Glycol 3350 (Miralax) 17 Gm Powd.pack, 17 GM PO BID PRN for CONSTIPATION Allergies Coded Allergies: FISH (Verified Allergy, Unknown, 03/12/19) Penicillins (Verified Allergy, Unknown, 03/12/19) acetaminophen (Verified Allergy, Unknown, 06/18/19) HAS REFUSED APAP INPAST HOWEVER HAS RECEIVED NORCO/VICODIN MYLTIPLE TIMES w/o PROBLEM chlorpromazine (Verified Allergy, Unknown, 03/12/19) diphenhydramine (Verified Allergy, Unknown, 03/12/19) ibuprofen (Verified Allergy, Unknown, 03/12/19) lithium (Verified Allergy, Unknown, 03/12/19) paroxetine (Verified Allergy, Unknown, 03/12/19) thioridazine (Verified Allergy, Unknown, 03/12/19) A-FIB/CHADSVASC A-FIB History Current/History of A-Fib/PAF?: Yes Current PO Anticoag Therapy: Yes GME ATTESTATION GME ATTESTATION My faculty preceptor for this patient encounter was physically present during the encounter and was fully available. All aspects of the patient interview, examination, medical decision making process, and medical care plan development were reviewed and approved by the faculty preceptor. The faculty preceptor is aware and concurs with the plan as stated in the body of this note and will attest to such by his/her cosignature. ATTENDING NOTE I, Boyd Jacskon, have independently examined this patient and performed my own physical exam, as well as reviewed the documentation and edited where necessary. I have discussed in detail with the resident / student the findings and plan of treatment as documented by the resident / student and edited their note. I agree with their findings and treatment plan and have edited their documentation. I will continue to follow the patient during this hospital stay. DANIELITO STOLL DO Dec 09, 2019 16:06 BOYD JACKSON MD Dec 09, 2019 20:42
[2019-12-09 16:16] LABS: AMPHETAMINES LEVEL URINE NEGATIVE (NEGATIVE); BARBITURATES URINE NEGATIVE (NEGATIVE); BENZODIAZEPINES URINE NEGATIVE (NEGATIVE); CANNABINOIDS URINE NEGATIVE (NEGATIVE); COCAINE METABOLITE URINE NEGATIVE (NEGATIVE); METHADONE URINE NEGATIVE (NEGATIVE); OPIATES URINE NEGATIVE (NEGATIVE); PHENCYCLIDINE URINE NEGATIVE (NEGATIVE)
[2019-12-09] MEDS: HumaLOG INSULIN (NovoLOG) PER UNIT SC SCH ×2 (19:32→21:22)
--- NOTE | 2019-12-09 20:07 | REPVR ---
PROCEDURE INFORMATION: Exam: MR Angiogram Head Without Contrast, Arteries Exam date and time: 12/09/2019 7:04 PM Age: 64 years old Clinical indication: Other: Cn 3 deficit TECHNIQUE: Imaging protocol: MR angiogram head without contrast. Exam focused on the arteries. 3D rendering (Not supervised by radiologist): MIP and/or 3D reconstructed images were created by the technologist. COMPARISON: MRA BRAIN W/O CONTRAST 03/29/2017 6:09 PM FINDINGS: ANTERIOR CIRCULATION: Right internal carotid artery: Intracranial segment is patent with no significant stenosis. No aneurysm. Right middle cerebral artery: No occlusion or significant stenosis. No aneurysm. Right anterior cerebral artery: No occlusion or significant stenosis. No aneurysm. Left internal carotid artery: Intracranial segment is patent with no significant stenosis. No aneurysm. Left middle cerebral artery: No occlusion or significant stenosis. No aneurysm. Left anterior cerebral artery: No occlusion or significant stenosis. No aneurysm. POSTERIOR CIRCULATION: Right vertebral artery: No occlusion or significant stenosis. No aneurysm. Left vertebral artery: No occlusion or significant stenosis. No aneurysm. Basilar artery: No occlusion or significant stenosis. No aneurysm. Right posterior cerebral artery: Weak flow or no flow is seen in portions of the P4 segment of the right posterior cerebral artery. No aneurysm. Left posterior cerebral artery: Weak flow or no flow is seen in portions of the P4 segment of the left posterior cerebral artery. No aneurysm. IMPRESSION: 1. The internal carotid, anterior and middle cerebral arteries appear normal bilaterally. 2. Weak flow or no flow is seen in portions of the P4 segments of both left and right posterior cerebral arteries. Electronically signed by: Olayinka Lind On 12/09/2019 20:07:48 PM
--- NOTE | 2019-12-09 20:15 | REPVR ---
PROCEDURE INFORMATION: Exam: MR Head Without Contrast Exam date and time: 12/09/2019 7:04 PM Age: 64 years old Clinical indication: Other: Cn 3 deficit, R/O stroke TECHNIQUE: Imaging protocol: MR of the head without contrast. COMPARISON: MRI-Brain without Contrast 03/29/2017 6:09 PM FINDINGS: Brain: No acute infarct or intracerebral bleed. Mild cerebral atrophy with patchy periventricular leukomalacia in both cerebral hemispheres, consistent most likely with chronic underlying small vessel ischemic disease. The position, size and shape of the cerebellar tonsils are normal. The vestibulocochlear complexes bilaterally are normal. Normal base of skull vasculature flow voids. The mesial temporal lobes and hippocampal regions are normal. Ventricles: Normal. No ventriculomegaly. Bones/joints: Unremarkable. Sinuses: Small mucosal retention cysts or polyps are seen in both maxillary sinuses. No acute sinusitis. Mastoid air cells: Normal as visualized. No mastoid effusion. Orbits: Unremarkable. Soft tissues: Unremarkable. IMPRESSION: 1. No acute infarct or intracerebral bleed. 2. Mild cerebral atrophy with patchy periventricular leukomalacia in both cerebral hemispheres, consistent most likely with chronic underlying small vessel ischemic disease. 3. Small mucosal retention cysts or polyps are seen in both maxillary sinuses. Electronically signed by: Olayinka Lind On 12/09/2019 20:16:05 PM
[2019-12-09] MEDS ORDERED: THIAMINE 100 MG TAB PO SCH (21:00)
[2019-12-09 21:16] VITALS: BP 138/86
[2019-12-09] MEDS: THIAMINE 100 MG TAB PO SCH (21:19)
[2019-12-09] MEDS: traZODone 100 MG TAB PO SCH (21:19)
[2019-12-09] MEDS: ROSUVASTATIN 10 MG TAB (CRESTOR) PO SCH (21:20)
[2019-12-09] MEDS: ALBUTEROL 90 MCG/ACT 8GM HFA INHALER INH PRN (21:36)
[2019-12-09 22:00] VITALS: BP 138/86
[2019-12-10 05:06] VITALS: BP 106/71
[2019-12-10 06:00] VITALS: BP 105/56
[2019-12-10 06:21] LABS: HEMATOCRIT 37.3 % (42.0-52.0); PLATELET COUNT, AUTOMATED 213 10^3/uL (150-450); WHITE BLOOD COUNT 10.2 10^3/uL (4.0-10.0)
[2019-12-10 06:36] LABS: HEMOGLOBIN 12.7 g/dl (13.5-17.5)
[2019-12-10 06:53] LABS: BLOOD UREA NITROGEN 20 MG/DL (7-18); CALCIUM LEVEL 8.2 MG/DL (8.8-10.2); CARBON DIOXIDE LEVEL 21 MEQ/L (21-32); CHLORIDE LEVEL 104 MEQ/L (98-107); CREATININE FOR GFR 0.58 MG/DL (0.70-1.30); GLOMERULAR FILTRATION RATE > 60.0 (>49); GLUCOSE, FASTING 233 MG/DL (70-100); MAGNESIUM LEVEL 2.1 MG/DL (1.8-2.4); SODIUM LEVEL 134 MEQ/L (136-145)
[2019-12-10] MEDS: HumaLOG INSULIN (NovoLOG) PER UNIT SC SCH ×4 (07:54→21:00)
[2019-12-10 08:00] VITALS: BP 112/72
[2019-12-10] MEDS: ADVAIR HFA 230/21MCG INHALER INH SCH ×2 (08:08→20:43)
[2019-12-10] MEDS ORDERED: MULTIVITAMINS/MINERALS THERAP 1 TAB PO SCH (09:00)
[2019-12-10] MEDS: MULTIVITAMINS/MINERALS THERAP 1 TAB PO SCH (10:17)
[2019-12-10] MEDS: TOPIRAMATE (TopAMAX) 25 MG TAB PO SCH ×2 (10:17→20:32)
[2019-12-10] MEDS: LEVEMIR (INSULIN DETEMIR) 1 UNITS/0.01ML SC SCH (10:17)
[2019-12-10] MEDS: THIAMINE 100 MG TAB PO SCH ×2 (10:17→20:32)
[2019-12-10] MEDS: OMEPRAZOLE 20 MG CAP PO SCH (10:18)
[2019-12-10] MEDS: FOLIC ACID 1 MG TAB PO SCH (10:18)
[2019-12-10] MEDS: hydrOXYzine 25 MG TAB PO SCH ×3 (10:19→20:32)
[2019-12-10] MEDS: LORATADINE 10 MG TAB PO SCH (10:19)
[2019-12-10] MEDS: ASPIRIN 81 MG ENTERIC TAB PO SCH (10:19)
[2019-12-10] MEDS: levETIRAcetam 250MG TABLET (KEPPRA) PO SCH ×2 (10:19→20:32)
[2019-12-10] MEDS: DIGOXIN 0.125 MG TAB PO SCH (10:20)
[2019-12-10] MEDS: APIXABAN 5 MG TAB (ELIQUIS) PO SCH ×2 (10:20→20:32)
[2019-12-10] MEDS: ALBUTEROL 90 MCG/ACT 8GM HFA INHALER INH PRN ×2 (11:21→18:27)
[2019-12-10] MEDS: ramipriL 1.25 MG CAP PO SCH (13:07)
--- NOTE | 2019-12-10 16:15 | IPNPDOC ---
Text Note Date of Service The patient was seen on 12/10/19. NOTE HISTORY OF PRESENT ILLNESS: Patient is a 64 year old male presenting with a less than 24 hour history of sudden onset lower extremity weakness. Patient states he was walking in his living room at home and suddenly collapsed and was unable to get up because he simply felt too weak. He says this is not the first time this has happened and he has fallen multiple times in the last 24 hours. He denies any numbness, tingling, loss of bowel/bladder control in that time period. He was brought to [facility] ED by EMS after his neighbors went to check on him and found him down. He does admit to LOC and hitting his head on the fall. On arrival to the ED he was apparently altered and wheezing. Head and neck CT were negative for acute pathology and his wheezing improved with decadron and duoneb treatment. However he was still weak and altered so the hospitalist service was called for admission. Subjective: No acute events overnight, patients states he feels incredibly well rested and has no complaints and would like to go home. He denies any fevers, chills, chest pain, sob, abdominal pain, nausea, vomiting, or weakness. He states he just needed to get a good nights sleep and states he just was tired from his fall at home yesterday which is why he was so weak. Objective: PHYSICAL EXAMINATION: VITAL SIGNS: see below GENERAL APPEARANCE: Elderly appearing male who appears older than stated age resting comfortable in bed in no acute distress breathing comfortably. HEENT: NC, Left eye brow abrasion, EOMI left eye. Right eye stuck down and out. Nares patent. Dry mucous membranes. No pharyngeal erythema. CARDIOVASCULAR: Irregular rate and rhythm. +S1 and S2. LUNGS: CTAB with full breath sounds. No wheezes, crackles, or rhonchi, no dullness to percussion. ABDOMEN: Soft, non-tender, non-distended. No masses or eccymosis. No hepatosplenomegaly. MUSCULOSKELETAL: Strength (and effort) significantly improved from day prior. +5/5 bilateral UE/LE. EXTREMITIES: No swelling or edema. NEUROLOGICAL: CN III, IV, unable to be evaluated. Other cranial nerves normal. Plantar reflex intact. Sensation intact in bilateral UE and LE. See above for MSK exam. Patients alertness SIGNFICANTLY improved. PSYCHIATRIC: Normal mood and affect Imaging: MRA brain: IMPRESSION: 1. The internal carotid, anterior and middle cerebral arteries appear normal bilaterally. 2. Weak flow or no flow is seen in portions of the P4 segments of both left and right posterior cerebral arteries. Assessment/Plan: Patient is a 64 year old male with PMHx of generalized weakness, alcohol use disorder, recurrent falls presents with generalized weakness #. Generalized weakness - Resolved. awaiting PT clearance. - CT head negative, MRI, MRA showing old posterior P4 occlusion consistent with patient's blindness. - History of recurrent falls, unclear whether he has syncopized and this is why he is falling vs EtOH intoxication, or general deconditioning. EtOH negative, tox screen negative, UA negative. - Echo completed, awaiting report, staff will call down to [facility] to get report. - PT/OT has not yet cleared patient. - PFS consulted for possible placement though I'm not sure he is amenable to it. #. EtOH use disorder -[facility] protocol -B12, folic acid. -Last drink on 12/08/2019, continue to monitor for DTs #. Type 2 diabetes -Sliding scale insulin -Levemir 20 units daily ordered #. Atrial fibrillation -Continue with home digoxin, diltiazem. -Continue Eliquis #. COPD -Continue home combivent, advair, proventil HFA #. Hypertension - Continue diltiazem #. Hx of CAD -Continue with Rosuvastatin #. GERD -Continue home omeprazole #. Seizure disorder - Continue home keppra, tropomax #. Depression - Continue trazodone #. Hx of Parkinson's disease - Not on any medication outpatient DVT prophylaxis: Continue Eliquis Dispo: - Medically cleared - Awaiting only PT/OT clearance - Will transition to ALC VS,Fishbone, I+O VS, Fishbone, I+O Laboratory Tests 12/10/19 06:02 12/10/19 06:09 Vital Signs Date Time Temp Pulse Resp B/P (MAP) Pulse Ox O2 Delivery O2 Flow Rate FiO2 12/10/19 13:07 144/78 12/10/19 10:23 85 12/10/19 08:00 98.2 20 96 12/10/19 06:00 Room Air I&O- Last 24 Hours up to 6 AM 12/10/19 06:00 Intake Total 2280 ml Output Total 2050 ml Balance 230 ml GME ATTESTATION GME ATTESTATION My faculty preceptor for this patient encounter was physically present during the encounter and was fully available. All aspects of the patient interview, examination, medical decision making process, and medical care plan development were reviewed and approved by the faculty preceptor. The faculty preceptor is aware and concurs with the plan as stated in the body of this note and will attest to such by his/her cosignature. ATTENDING NOTE I, Boyd Jackson, have independently examined this patient and performed my own physical exam, as well as reviewed the documentation and edited where necessary. I have discussed in detail with the resident / student the findings and plan of treatment as documented by the resident / student and edited their note. I agree with their findings and treatment plan and have edited their documentation. I will continue to follow the patient during this hospital stay. DANIELITO STOLL DO Dec 10, 2019 16:15 BOYD JACKSON MD Dec 10, 2019 20:28
[2019-12-10] MEDS: ROSUVASTATIN 10 MG TAB (CRESTOR) PO SCH (20:32)
[2019-12-10] MEDS: traZODone 100 MG TAB PO SCH (20:32)
[2019-12-11 06:00] VITALS: BP 125/76
[2019-12-11] MEDS: ADVAIR HFA 230/21MCG INHALER INH SCH (07:19)
[2019-12-11] MEDS: ALBUTEROL 90 MCG/ACT 8GM HFA INHALER INH PRN (07:20)
[2019-12-11 08:08] LABS: HEMATOCRIT 39.1 % (42.0-52.0); HEMOGLOBIN 13.2 g/dl (13.5-17.5); MEAN CORPUSCULAR HEMOGLOBIN 30.4 pg (27.0-33.0); MEAN CORPUSCULAR HGB CONC 33.8 g/dl (32.0-36.5); MEAN CORPUSCULAR VOLUME 90.1 fl (80.0-96.0); PLATELET COUNT, AUTOMATED 219 10^3/uL (150-450); RED BLOOD COUNT 4.34 10^6/uL (4.30-6.10)
[2019-12-11 08:20] LABS: BLOOD UREA NITROGEN 15 MG/DL (7-18); CALCIUM LEVEL 8.7 MG/DL (8.8-10.2); CARBON DIOXIDE LEVEL 22 MEQ/L (21-32); CHLORIDE LEVEL 106 MEQ/L (98-107); CREATININE FOR GFR 0.74 MG/DL (0.70-1.30); GLOMERULAR FILTRATION RATE > 60.0 (>49); GLUCOSE, FASTING 266 MG/DL (70-100); SODIUM LEVEL 136 MEQ/L (136-145)
[2019-12-11] MEDS: levETIRAcetam 250MG TABLET (KEPPRA) PO SCH (08:49)
[2019-12-11] MEDS: OMEPRAZOLE 20 MG CAP PO SCH (08:49)
[2019-12-11] MEDS: MULTIVITAMINS/MINERALS THERAP 1 TAB PO SCH (08:49)
[2019-12-11] MEDS: TOPIRAMATE (TopAMAX) 25 MG TAB PO SCH (08:49)
[2019-12-11 08:50] VITALS: BP 122/76
[2019-12-11] MEDS: ASPIRIN 81 MG ENTERIC TAB PO SCH (08:50)
[2019-12-11] MEDS: FOLIC ACID 1 MG TAB PO SCH (08:50)
[2019-12-11] MEDS: ramipriL 1.25 MG CAP PO SCH (08:50)
[2019-12-11] MEDS: APIXABAN 5 MG TAB (ELIQUIS) PO SCH (08:50)
[2019-12-11] MEDS: THIAMINE 100 MG TAB PO SCH (08:51)
[2019-12-11] MEDS: DIGOXIN 0.125 MG TAB PO SCH (08:51)
[2019-12-11] MEDS: LORATADINE 10 MG TAB PO SCH (08:51)
[2019-12-11] MEDS: hydrOXYzine 25 MG TAB PO SCH (08:51)
[2019-12-11] MEDS: LEVEMIR (INSULIN DETEMIR) 1 UNITS/0.01ML SC SCH (08:51)
[2019-12-11] MEDS: HumaLOG INSULIN (NovoLOG) PER UNIT SC SCH ×2 (08:52→13:07)
--- NOTE | 2019-12-11 17:30 | DS.PDOC ---
Discharge Summary General Date of Admission Dec 09, 2019 at 09:16 Date of Discharge 12/11/2019 Primary Care Physician: Rufus Stein Attending Physician: BOYD JACKSON MD Discharge Summary PROCEDURES PERFORMED DURING STAY: TTE: Normal LV dimensions and wall thickness with normal regional LV wall motion. Hyperdynamic LV systolic function. LVEF 75%. Unable to adequately assess LV diastolic function in the setting of sinus tachycardia with resultant effusion of the early rapid filling phase with the atrial filling phase. Mild thickening of the tertiary chordae attached to the anterior mitral leaflet as the consequence of septal contact. No MR. No MS. Mild AV sclerosis of a 3 cuspid AV, no AR. Suggestive of mild elevation of pulmonary artery systolic pressure. Normal RV size and systolic function. Otherwise normal appearing echo doppler findings. ADMITTING/DISCHARGE DIAGNOSES: 1. Generalized weakness, unspecified 2. EtOH use disorder 3. Type 2 diabetes 4. Atrial fibrillation 5. COPD 6. Hypertension 7. History of CAD 8. GERD 9. Seizure Disorder 10. Depression 11. Hx of Parkinson's disease COMPLICATIONS/CHIEF COMPLAINT: Generalized Weakness. HISTORY OF PRESENT ILLNESS/HOSPITAL COURSE:Patient is a 64 year old male presenting with a less than 24 hour history of sudden onset lower extremity weakness. Patient states he was walking in his living room at home and suddenly collapsed and was unable to get up because he simply felt too weak. He says this is not the first time this has happened and he has fallen multiple times in the last 24 hours. He denies any numbness, tingling, loss of bowel/bladder control in that time period. He was brought to [facility] ED by EMS after his neighbors went to check on him and found him down. He does admit to LOC and hitting his head on the fall. On arrival to the ED he was apparently altered and wheezing. Head and neck CT were negative for acute pathology and his wheezing improved with decadron and duoneb treatment. However he was still weak and altered so the hospitalist service was called for admission. MRI, MRA showing P4 occlusion consistent with patient's pre-existing blindness. Patient was hydrated overnight with substantial improvement in his mental status and no weakness whatsoever. Patient stating he was tired. Work up for his weakness was negative. Patient was made ALC status for one day as his discharge was delayed secondary to physical therapy clearance. DISCHARGE MEDICATIONS: Please see below. ALLERGIES: Please see below. PHYSICAL EXAMINATION ON DISCHARGE: VITAL SIGNS: Please see below. GENERAL APPEARANCE: Elderly appearing male who appears older than stated age resting comfortable in bed in no acute distress breathing comfortably. HEENT: NC, EOMI left eye, right eye stuck down and out. Nares patent. Dry mucous membranes. No pharyngeal erythema. CARDIOVASCULAR: Irregular rate and rhythm. +S1 and S2. LUNGS: CTAB with full breath sounds. No wheezes, crackles, or rhonchi, no dullness to percussion. ABDOMEN: Soft, non-tender, non-distended. No masses or eccymosis. No hepatosplenomegaly. MUSCULOSKELETAL: +5/5 bilateral UE and LE. EXTREMITIES: No swelling or edema. NEUROLOGICAL: CN III, IV, unable to be evaluated. Other cranial nerves normal.AOx3 No other focal neurologic deficits. PSYCHIATRIC: Normal mood and affect LABORATORY DATA: Please see below. IMAGIN12/09/[address]: 1. No evidence of acute intracranial injury. 2. Stable appearance of the brain. Parenchymal volume loss and stable ventricular enlargement. 3. Evidence of mild chronic sinusitis. 12/09/2019 CT cervical Spine w/o contrast: 1. No acute fractures identified. There is motion artifact which could limit the sensitivity for detection of non-displaced fractures. 2. Small retrolisthesis of C3 on C4, without significant change. 3. Multilevel degenerative disc disease, most advanced at C3-C4, without significant change. 4. Multilevel facet arthropathy, without significant change 12/09/2019 Lumbar Spine X-Ray 1. No acute fractures seen in the lumbar spine. 2. Mild, less than 15% anterolisthesis of L4 upon L5. 3. Chronic degenerative vertebral body endplate osteophytosis anteriorly with diminished disc height at multiple levels, at T12-L5. 12/09/2019 MRA brain w/o contrast: 1. The internal carotid, anterior and middle cerebral arteries appear normal bi laterally. 2. Weak flow or no flow is seen in portions of the P4 segments of both left and right posterior cerebral arteries. 12/09/2019 Brain MRI: 1. No acute infarct or intracerebral bleed. 2. Mild cerebral atrophy with patchy periventricular leukomalacia in both cerebral hemispheres, consistent most likely with chronic underlying small vessel ischemic disease. 3. Small mucosal retention cysts or polyps are seen in both maxillary sinuses. PROGNOSIS: stable ACTIVITY: As tolerated. DIET: 2 gram sodium diet, consistent carbs DISCHARGE PLAN: Home DISPOSITION: Home, Self-Care. DISCHARGE INSTRUCTIONS: 1. Please follow up with PCP in the next 7-10 days 2. Please return to hospital if you experience any problems DISCHARGE CONDITION: Stable. TIME SPENT ON DISCHARGE: 32 minutes. Vital Signs/I&Os Vital Signs Date Time Temp Pulse Resp B/P (MAP) Pulse Ox O2 Delivery O2 Flow Rate FiO2 12/11/19 08:51 90 12/11/19 08:50 122/76 12/11/19 06:00 97.6 20 96 12/10/19 06:00 Room Air I&O- Last 24 Hours up to 6 AM 12/11/19 05:59 Intake Total 4010 ml Output Total 3100 ml Balance 910 ml Laboratory Data Labs 24H Laboratory Tests 2 12/11/19 07:27: Nucleated Red Blood Cells % (auto) 0.0, Anion Gap 8, Glomerular Filtration Rate > 60.0, Calcium Level 8.7L 12/11/19 08:50: Lab Scanned Report Miscellaneous Lab CBC/BMP Laboratory Tests 12/11/19 07:27 Microbiology Microbiology 12/09/19 Blood Culture - Preliminary, Resulted No Growth after 48 hours. All Specime... 12/09/19 Blood Culture - Preliminary, Resulted No Growth after 48 hours. All Specime... Discharge Medications Scheduled Apixaban (Eliquis) 5 Mg Tab, 5 MG PO BID, (Reported) Aspirin (Aspirin EC) 81 Mg Tab, 81 MG PO DAILY, (Reported) Cyclobenzaprine HCl (Cyclobenzaprine HCl) 10 Mg Tablet, 10 MG PO TID, (Reported) 0800, 1200, QHS Digoxin (Digoxin) 125 Mcg Tab, 125 MCG PO DAILY, (Reported) Diltiazem HCl (Diltiazem 24Hr ER) 240 Mg Cap, 240 MG PO DAILY, (Reported) Esomeprazole Magnesium (Esomeprazole Magnesium) 40 Mg Cap, 40 MG PO DAILY, (Reported) Gabapentin (Gabapentin) 300 Mg Capsule, 300 MG PO TID, (Reported) 0800, 1200, QHS Glimepiride (Glimepiride) 2 Mg Tablet, 2 MG PO BID, (Reported) Hydroxyzine HCl (Hydroxyzine HCl) 25 Mg Tablet, 25 MG PO TID, (Reported) 0800, 1200, QHS Insulin Glargine,Hum.rec.anlog (Basaglar Kwikpen U-100) 100 Unit/1 Ml Insuln.pen, 35 UNIT SC DAILY, (Reported) Insulin Human Lispro (Humalog) 100 Unit/1 Ml Vial, 8 UNITS SC WM, (Reported) Levetiracetam (Keppra) 500 Mg Tablet, 500 MG PO BID, (Reported) Loratadine (Loratadine) 10 Mg Tab, 10 MG PO DAILY, (Reported) Ramipril (Ramipril) 1.25 Mg Capsule, 1.25 MG PO DAILY, (Reported) Rosuvastatin Calcium (Crestor) 5 Mg Tab, 5 MG PO QHS, (Reported) Salmeterol/Fluticasone (Advair 500-50 Diskus) 28 Puff/Inhaler Aerp, 1 PUFF INH BID, (Reported) Topiramate (Topiramate) 50 Mg Tab, 50 MG PO BID, (Reported) Trazodone HCl (Trazodone HCl) 100 Mg Tablet, 100 MG PO QHS, (Reported) Scheduled PRN Albuterol Sulfate (Ventolin Hfa) 108 Mcg/Act Aer, 2 PUFF INH QID PRN for SHORTNESS OF BREATH, (Reported) Ipratropium/Albuterol Sulfate (Combivent Respimat 20-100 Mcg) 4 Gm Mist.inhal, 1 PUFF INH QID PRN for SHORTNESS OF BREATH, (Reported) Nitroglycerin (Nitrostat) 0.4 Mg Subl, 0.4 MG SL NITRO PRN for CHEST PAIN, (Reported) Polyethylene Glycol 3350 (Miralax) 17 Gm Powd.pack, 17 GM PO BID PRN for CONSTIPATION, (Reported) Allergies Coded Allergies: FISH (Verified Allergy, Unknown, 03/12/19) Penicillins (Verified Allergy, Unknown, 03/12/19) acetaminophen (Verified Allergy, Unknown, 06/18/19) HAS REFUSED APAP INPAST HOWEVER HAS RECEIVED NORCO/VICODIN MYLTIPLE TIMES w/o PROBLEM chlorpromazine (Verified Allergy, Unknown, 03/12/19) diphenhydramine (Verified Allergy, Unknown, 03/12/19) ibuprofen (Verified Allergy, Unknown, 03/12/19) lithium (Verified Allergy, Unknown, 03/12/19) paroxetine (Verified Allergy, Unknown, 03/12/19) thioridazine (Verified Allergy, Unknown, 03/12/19) GME ATTESTATION GME ATTESTATION My faculty preceptor for this patient encounter was physically present during the encounter and was fully available. All aspects of the patient interview, examination, medical decision making process, and medical care plan development were reviewed and approved by the faculty preceptor. The faculty preceptor is aware and concurs with the plan as stated in the body of this note and will attest to such by his/her cosignature. ATTENDING NOTE I, Boyd Jackson, have independently examined this patient and performed my own physical exam, as well as reviewed the documentation and edited where necessary. I have discussed in detail with the resident / student the findings and plan of treatment as documented by the resident / student and edited their note. I agree with their findings and treatment plan and have edited their documentation. I will continue to follow the patient during this hospital stay. Time spent on discharge 35 minutes DANIELITO STOLL DO Dec 11, 2019 17:30 BOYD JACKSON MD Dec 27, 2019 16:34
--- NOTE | 2019-12-25 14:27 | ECGEPIP ---
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
--- NOTE | 2020-01-06 09:52 | REP ---
PORTABLE CHEST X-RAY CLINICAL: Altered mental status. FINDINGS: Mediastinum and cardiac silhouette normal. Lung forte demonstrate chronic appearing changes. No focal consolidation, effusion, or pneumothorax. Skeletal structures are intact. IMPRESSION: No acute cardiopulmonary process. MTDD
--- NOTE | 2020-01-22 16:14 | ECHO ---
DATE OF PROCEDURE: 12/09/2019 Age: 64 Gender: Male Height: 172 cm Weight: 49.4 kg REFERRING PHYSICIAN: Dr. Cal Cox INDICATION: Generalized weakness. MEASUREMENTS: 2D Measurements: Aortic root 3.4 cm Left atrium 3.0 cm Interventricular septum 1.14 cm Posterior wall 0.96 cm Left ventricle diastole 4.4 cm Proximal ascending aorta 3.0 cm Inferior vena cava 0.9 cm Doppler Measurements: No aortic stenosis No aortic regurgitation Aortic valve velocity 136 cm/s LVOT velocity 80.8 cm/s No mitral regurgitation No mitral stenosis E/A fusion at 102 BPM Very mild tricuspid regurgitation Estimated right ventricular systolic pressure 33-38 mmHg No pulmonic regurgitation Pulmonary acceleration time 85 msec DESCRIPTION: Rhythm was predominantly sinus tachycardia. This was a 2D, M-mode, color flow Doppler, and pulsed wave Doppler examination including mitral annular tissue time. Image quality was fair. CONCLUSIONS: * Normal left ventricle internal dimensions and wall thickness. Normal regional LV wall motion. Hyperdynamic LV systolic function. LVEF 75% by visual estimate. Unable to adequately assess LV diastolic function in the setting of sinus tachycardia with resultant effusion of the early rapid filling phase with the atrial filling phase. * Mild thickening of the tertiary chordae attached to the anterior mitral leaflet as the consequence of septal contact. No mitral regurgitation. No mitral stenosis. * Mild aortic valve sclerosis of a 3-cuspid aortic valve. No aortic regurgitation. * Suggestive of mild elevation of pulmonary artery systolic pressure. Normal right ventricle size and systolic function. * Otherwise normal appearing echocardiogram Doppler findings. MTDD
== END 2019-12-11 13:56 | disposition home or self-care (01) | DRG 556 ==
LOC: M ED 03:42 → M ED INP 09:16 → ENRESERVDT 13:43 → ENRESERVTM 13:43 → M MSPAV 14:04
PROVIDERS: ADMIT Internal Medicine; ATTEND Internal Medicine
DX: M62.81 Muscle weakness (generalized) (principal); F10.10 Alcohol abuse, uncomplicated; E11.9 Type 2 diabetes mellitus without complications; I48.91 Unspecified atrial fibrillation; J44.9 Chronic obstructive pulmonary disease, unspecified; G40.909 Epilepsy, unspecified, not intractable, without status epilepticus; F32.9 Major depressive disorder, single episode, unspecified; I10 Essential (primary) hypertension; I25.10 Atherosclerotic heart disease of native coronary artery without angina pectoris; K21.9 Gastro-esophageal reflux disease without esophagitis; G20 Parkinson's disease; R29.6 Repeated falls; Z79.899 Other long term (current) drug therapy; Z79.82 Long term (current) use of aspirin; Z79.4 Long term (current) use of insulin; Z88.0 Allergy status to penicillin; Z88.6 Allergy status to analgesic agent; Z91.013 Allergy to seafood; F17.200 Nicotine dependence, unspecified, uncomplicated

== ENCOUNTER 2019-12-22 09:00 | Emergency (ER) | payer MEDICARE, MEDICAID ==
[~2019-12-22 09:00] MED LIST changes: +KEPP1TAB PO; +MIRA1POW3 PO
[2019-12-22 10:16] LABS: BASO # 0.1 10^3/uL (0.0-0.2); BASO % 0.9 % (0.0-1.0); EOS # 0.1 10^3/uL (0.0-0.5); EOS % 1.4 % (0.0-3.0); HEMATOCRIT 43.4 % (42.0-52.0); HEMOGLOBIN 14.9 g/dl (13.5-17.5); LYMPH # 2.3 10^3/uL (1.5-5.0); LYMPH % 27.2 % (24.0-44.0); MEAN CORPUSCULAR HEMOGLOBIN 31.4 pg (27.0-33.0); MEAN CORPUSCULAR HGB CONC 34.3 g/dl (32.0-36.5); MEAN CORPUSCULAR VOLUME 91.4 fl (80.0-96.0); MONO # 0.5 10^3/uL (0.0-0.8); MONO % 6.2 % (0.0-5.0); NEUTROPHILS # 5.5 10^3/uL (1.5-8.5); NEUTROPHILS % 63.9 % (36.0-66.0); PLATELET COUNT, AUTOMATED 267 10^3/uL (150-450); RED BLOOD COUNT 4.75 10^6/uL (4.30-6.10); WHITE BLOOD COUNT 8.5 10^3/uL (4.0-10.0)
[2019-12-22 11:04] LABS: APPEARANCE, URINE CLEAR (CLEAR); BACTERIA, URINE AUTO NEGATIVE (NEGATIVE); BILIRUBIN, URINE AUTO NEGATIVE (NEGATIVE); BLOOD, URINE BLOOD NEGATIVE (NEGATIVE); COLOR, URINE YELLOW (YELLOW); GLUCOSE, URINE (UA) AUTO 3+ mg/dL (NEGATIVE); KETONE, URINE AUTO TRACE mg/dL (NEGATIVE); LEUKOCYTE ESTERASE, URINE AUTO NEGATIVE (NEGATIVE); NITRITE, URINE AUTO NEGATIVE (NEGATIVE); PROTEIN, URINE AUTO NEGATIVE (NEGATIVE); RBC, URINE AUTO 0 /HPF (0-3); SPECIFIC GRAVITY URINE AUTO 1.023 (1.002-1.035); SQUAMOUS EPITHELIAL CELL UR AU 0 /HPF (0-6); UROBILINOGEN, URINE AUTO 0.2 mg/dL (0.0-2.0); WBC, URINE AUTO 1 /HPF (0-3)
[2019-12-22 11:50] LABS: ALT/SGPT 32 U/L (12-78); BILIRUBIN,TOTAL 0.4 MG/DL (0.2-1.0); BLOOD UREA NITROGEN 10 MG/DL (7-18); CALCIUM LEVEL 9.5 MG/DL (8.8-10.2); CARBON DIOXIDE LEVEL 25 MEQ/L (21-32); CHLORIDE LEVEL 103 MEQ/L (98-107); CK-MB VALUE MASS 3.5 NG/ML (<3.6); CPK CREATINE PHOSPHOKINASE 114 U/L (39-308); CREATININE FOR GFR 0.73 MG/DL (0.70-1.30); GLOMERULAR FILTRATION RATE > 60.0 (>49); GLUCOSE, FASTING 265 MG/DL (70-100); MB/CK RELATIVE INDEX 3.07 (< OR =4); POTASSIUM SERUM 3.8 MEQ/L (3.5-5.1); SODIUM LEVEL 134 MEQ/L (136-145); THYROID STIMULATING HORMONE 0.843 uIU/ML (0.358-3.740); TOTAL PROTEIN 8.2 GM/DL (6.4-8.2); TROPONIN I < 0.02 NG/ML (< 0.10)
--- NOTE | 2019-12-22 13:25 | REPVR ---
PROCEDURE INFORMATION: Exam: CT Chest Without Contrast Exam date and time: 12/22/2019 12:43 PM Age: 64 years old Clinical indication: Abnormal findings; Abnormal radiologic exam of lung or chest; Additional info: Vague density left mid lung field on xray TECHNIQUE: Imaging protocol: Computed tomography of the chest without contrast. Radiation optimization: All CT scans at this facility use at least one of these dose optimization techniques: automated exposure control; mA and/or kV adjustment per patient size (includes targeted exams where dose is matched to clinical indication); or iterative reconstruction. COMPARISON: CT Chest without contrast 10/09/2019 1:48 PM FINDINGS: Lungs: There is mild centrilobular emphysema bilaterally, most extensively in the upper lung zones. A 5.2 x 2.4 x 3.4 mm noncalcified pulmonary nodule is noted in the anterolateral basilar segment of the left lower lobe (LOC 196.96). Tree in bud density is present in the left lower lobe lobe medial and posterior basilar segments (series 202, images 53-58). Pleural space: No pneumothorax. No pleural effusion. Heart: LAD, LCx and RCA calcified coronary atherosclerosis. Mediastinal space: Fluid is present in the thoracic esophagus. Aorta: Mild aortic arch, branch, and descending thoracic aortic atherosclerotic calcification without ectasia. Lymph nodes: No enlarged lymph nodes. Gallbladder and bile ducts: The gallbladder is surgically absent, with metallic clips in the gallbladder fossa. Kidneys and ureters: Left renal calculi, the largest visible measuring 6.1 mm. Bones/joints: Thoracic spine vertebral body marginal osteophytes are noted at multiple levels. Chronic nonunion posterolateral right 11th rib fracture. Diffuse osteopenia. Multilevel thoracic spine chronic vertebral body endplate herniations. Soft tissues: Unremarkable. IMPRESSION: 1. Fluid is present in the thoracic esophagus. Possible gastroesophageal reflux. 2. Pulmonary emphysema. 3. Noncalcified left lower lobe pulmonary nodule, stable since 10/09/2019 and reportedly stable since 08/21/2018. efrem Maguire al., Fleischner Society, 2017, recommendations are: ?For patients at low risk (minimal or absent history of smoking and of other known risk factors), no routine follow-up is indicated. For patients at high risk (history of smoking or of other known risk factors), consider optional CT at 12 months". The follow-up interval exceeds the recommendations, no specific addition recommended. 4. Tree in bud density left lower lobe lobe. Early pneumonitis is difficult to exclude. Clinical correlation is recommended. 5. Coronary atherosclerosis. 6. Prior cholecystectomy. 7. Left renal calyceal lithiasis. Electronically signed by: Santos Atkins On 12/22/2019 13:24:56 PM
[2019-12-22 14:35] VITALS: BP 150/92
--- NOTE | 2019-12-23 14:00 | ED PDOC ---
Post-Departure Follow-Up ct chest faxed to dr carmen for fu Amrit Haley MD Dec 23, 2019 14:00
--- NOTE | 2019-12-28 12:53 | ECGEPIP ---
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
== END 2019-12-22 14:40 | disposition home or self-care (01) ==
LOC: M ED 09:00
DX: R53.1 Weakness (principal); J43.9 Emphysema, unspecified; K22.8 Other specified diseases of esophagus; R91.1 Solitary pulmonary nodule; R91.8 Other nonspecific abnormal finding of lung field; I25.10 Atherosclerotic heart disease of native coronary artery without angina pectoris; N20.2 Calculus of kidney with calculus of ureter; Z90.49 Acquired absence of other specified parts of digestive tract; S22.31XK Fracture of one rib, right side, subsequent encounter for fracture with nonunion; X58.XXXS Exposure to other specified factors, sequela; R94.31 Abnormal electrocardiogram [ECG] [EKG]; E11.9 Type 2 diabetes mellitus without complications; I10 Essential (primary) hypertension; G20 Parkinson's disease; F17.200 Nicotine dependence, unspecified, uncomplicated; Z88.0 Allergy status to penicillin; Z88.1 Allergy status to other antibiotic agents; Z88.6 Allergy status to analgesic agent; Z88.8 Allergy status to other drugs, medicaments and biological substances; Z91.013 Allergy to seafood; Z79.01 Long term (current) use of anticoagulants; Z79.4 Long term (current) use of insulin; Z79.51 Long term (current) use of inhaled steroids; Z79.82 Long term (current) use of aspirin; Z79.899 Other long term (current) drug therapy; Z79.891 Long term (current) use of opiate analgesic

== ENCOUNTER 2019-12-26 15:54 | Emergency (ER) | payer MEDICARE, MEDICAID ==
[~2019-12-26] VITALS: Ht 172.7 cm; Wt 73.2 kg
[2019-12-26 17:54] VITALS: BP 130/93
== END 2019-12-26 17:54 | disposition home or self-care (01) ==
LOC: M ED 15:54
DX: F40.10 Social phobia, unspecified (principal); I25.10 Atherosclerotic heart disease of native coronary artery without angina pectoris; E11.9 Type 2 diabetes mellitus without complications; G20 Parkinson's disease; F17.200 Nicotine dependence, unspecified, uncomplicated; Z88.0 Allergy status to penicillin; Z88.1 Allergy status to other antibiotic agents; Z88.6 Allergy status to analgesic agent; Z88.8 Allergy status to other drugs, medicaments and biological substances; Z91.013 Allergy to seafood; Z79.01 Long term (current) use of anticoagulants; Z79.4 Long term (current) use of insulin; Z79.51 Long term (current) use of inhaled steroids; Z79.899 Other long term (current) drug therapy

== ENCOUNTER 2020-01-10 18:49 | Emergency (ER) | payer MEDICARE, MEDICAID ==
[~2020-01-10] VITALS: Ht 172.7 cm; Wt 72.7 kg
[2020-01-10] MEDS ORDERED: LIDOCAINE 4% CREAM 5GM (LMX4) TOP ONE (19:30)
[2020-01-10] MEDS ORDERED: BOOSTRIX/ADACEL VACCINE (DIPHTH/PERTUSS/ACELL/TETANUS) 0.5ML SYR IM ONE (20:00)
[2020-01-10] MEDS ORDERED: ACETAMINOPH W/CODEINE #3 TAB UD PO ONE (20:45)
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
[2020-01-10 20:50] VITALS: BP 127/76
--- NOTE | 2020-01-11 07:32 | ED PDOC ---
Post-Departure Follow-Up dr carmen faxed formal report of right tib fib for fu recommendations Amrit Haley MD Jan 11, 2020 07:31
== END 2020-01-10 20:50 | disposition home or self-care (01) ==
LOC: M ED 18:49 → EDBD 18:49 → M ED 20:50
DX: S80.811A Abrasion, right lower leg, initial encounter (principal); V29.40XA Motorcycle driver injured in collision with unspecified motor vehicles in traffic accident, initial encounter; I10 Essential (primary) hypertension; J44.9 Chronic obstructive pulmonary disease, unspecified; Z88.0 Allergy status to penicillin; Z88.1 Allergy status to other antibiotic agents; Z88.6 Allergy status to analgesic agent; Z91.013 Allergy to seafood; Y92.9 Unspecified place or not applicable; Y93.9 Activity, unspecified; Y99.9 Unspecified external cause status

== ENCOUNTER 2020-01-26 10:58 | Emergency (ER) | payer MEDICARE, MEDICAID ==
[2020-01-26 11:29] LABS: BASO # 0.1 10^3/uL (0.0-0.2); BASO % 1.2 % (0.0-1.0); EOS # 0.3 10^3/uL (0.0-0.5); EOS % 3.8 % (0.0-3.0); HEMATOCRIT 40.7 % (42.0-52.0); HEMOGLOBIN 13.8 g/dl (13.5-17.5); LYMPH # 2.7 10^3/uL (1.5-5.0); LYMPH % 41.6 % (24.0-44.0); MEAN CORPUSCULAR HEMOGLOBIN 30.5 pg (27.0-33.0); MEAN CORPUSCULAR HGB CONC 33.9 g/dl (32.0-36.5); MONO # 0.5 10^3/uL (0.0-0.8); MONO % 8.3 % (0.0-5.0); NEUTROPHILS # 2.9 10^3/uL (1.5-8.5); NEUTROPHILS % 44.9 % (36.0-66.0); PLATELET COUNT, AUTOMATED 231 10^3/uL (150-450); RED BLOOD COUNT 4.52 10^6/uL (4.30-6.10); WHITE BLOOD COUNT 6.5 10^3/uL (4.0-10.0)
[2020-01-26 12:00] LABS: ERYTHROCYTE SEDIMENTATION RATE 11 mm/hr (0-20)
[2020-01-26 12:03] LABS: BLOOD UREA NITROGEN 16 MG/DL (7-18); CALCIUM LEVEL 9.6 MG/DL (8.8-10.2); CARBON DIOXIDE LEVEL 27 MEQ/L (21-32); CHLORIDE LEVEL 100 MEQ/L (98-107); CREATININE FOR GFR 0.66 MG/DL (0.70-1.30); GLOMERULAR FILTRATION RATE > 60.0 (>49); GLUCOSE, FASTING 270 MG/DL (70-100); SODIUM LEVEL 132 MEQ/L (136-145)
[2020-01-26 12:43] VITALS: BP 139/98
== END 2020-01-26 13:17 | disposition home or self-care (01) ==
LOC: EDBD 10:58 → M ED 10:58
DX: Z48.00 Encounter for change or removal of nonsurgical wound dressing (principal); S80.811D Abrasion, right lower leg, subsequent encounter; V29.40XD Motorcycle driver injured in collision with unspecified motor vehicles in traffic accident, subsequent encounter; I10 Essential (primary) hypertension; J44.9 Chronic obstructive pulmonary disease, unspecified; E11.9 Type 2 diabetes mellitus without complications; I48.91 Unspecified atrial fibrillation; R56.9 Unspecified convulsions; F17.200 Nicotine dependence, unspecified, uncomplicated; Z88.0 Allergy status to penicillin; Z88.1 Allergy status to other antibiotic agents; Z88.8 Allergy status to other drugs, medicaments and biological substances; Z91.013 Allergy to seafood; Z79.01 Long term (current) use of anticoagulants; Z79.4 Long term (current) use of insulin; Z79.899 Other long term (current) drug therapy

== ENCOUNTER 2020-01-30 12:41 | Emergency (ER) | payer MEDICARE, MEDICAID ==
[~2020-01-30] VITALS: Ht 172.7 cm; Wt 72.7 kg
[2020-01-30] MEDS ORDERED: methylPREDNISolone 125MG 2ML VIAL IV ONE (13:00)
[2020-01-30] MEDS ORDERED: COMBIVENT RESPIMAT 100-20MCG INHALER 4GM INH ONE (13:00)
[2020-01-30 13:26] LABS: BASO # 0.1 10^3/uL (0.0-0.2); BASO % 1.1 % (0.0-1.0); EOS # 0.2 10^3/uL (0.0-0.5); EOS % 2.3 % (0.0-3.0); HEMOGLOBIN 13.2 g/dl (13.5-17.5); LYMPH % 42.5 % (24.0-44.0); MEAN CORPUSCULAR HEMOGLOBIN 29.8 pg (27.0-33.0); MEAN CORPUSCULAR VOLUME 90.3 fl (80.0-96.0); MONO # 0.4 10^3/uL (0.0-0.8); MONO % 5.9 % (0.0-5.0); NEUTROPHILS # 3.4 10^3/uL (1.5-8.5); NEUTROPHILS % 47.9 % (36.0-66.0); PLATELET COUNT, AUTOMATED 234 10^3/uL (150-450); RED BLOOD COUNT 4.43 10^6/uL (4.30-6.10); WHITE BLOOD COUNT 7.1 10^3/uL (4.0-10.0)
[2020-01-30] MEDS ORDERED: hydrOXYzine 25 MG TAB PO ONE (13:30)
[2020-01-30 13:44] LABS: INR 1.01; PROTHROMBIN TIME 13.5 SECONDS (12.5-14.3)
[2020-01-30 13:45] LABS: PARTIAL THROMBOPLASTIN TIME 28.4 SECONDS (24.2-38.5)
[2020-01-30 13:56] LABS: ALBUMIN 3.7 GM/DL (3.2-5.2); ALT/SGPT 32 U/L (12-78); BILIRUBIN,DIRECT < 0.1 MG/DL (0.0-0.2); BILIRUBIN,TOTAL 0.3 MG/DL (0.2-1.0); BLOOD UREA NITROGEN 11 MG/DL (7-18); CALCIUM LEVEL 8.7 MG/DL (8.8-10.2); CARBON DIOXIDE LEVEL 26 MEQ/L (21-32); CHLORIDE LEVEL 100 MEQ/L (98-107); CK-MB VALUE MASS 2.6 NG/ML (<3.6); CPK CREATINE PHOSPHOKINASE 145 U/L (39-308); FREE T4 0.86 NG/DL (0.76-1.46); GLOMERULAR FILTRATION RATE > 60.0 (>49); GLUCOSE, FASTING 302 MG/DL (70-100); MB/CK RELATIVE INDEX 1.79 (< OR =4); NT-PRO BNP 138 PG/ML (<125); POTASSIUM SERUM 4.7 MEQ/L (3.5-5.1); SODIUM LEVEL 133 MEQ/L (136-145); TOTAL PROTEIN 7.6 GM/DL (6.4-8.2); TROPONIN I 0.02 NG/ML (< 0.10)
--- NOTE | 2020-01-30 14:41 | REPVR ---
PROCEDURE INFORMATION: Exam: XR Chest, 2 Views Exam date and time: 01/30/2020 2:30 PM Age: 65 years old Clinical indication: Chest pain; Type not specified TECHNIQUE: Imaging protocol: XR of the chest Views: 2 views. COMPARISON: CR - PORTABLE CHEST X-RAY 12/09/2019 4:13:22 AM (report not provided) FINDINGS: Lungs: Unremarkable. No consolidation. Pleural space: Unremarkable. No pleural effusion. No pneumothorax. Heart/Mediastinum: The cardiomediastinal silhouette is fairly stable in appearance. Bones/joints: Degenerative changes again involve the spine and shoulders. IMPRESSION: No evidence for acute pulmonary disease. Electronically signed by: Gulshan Castro On 01/30/2020 14:40:54 PM
[2020-01-30 15:15] VITALS: O2SAT 97
[2020-01-30] MEDS ORDERED: IPRATROPIUM 0.5MG/ALBUTEROL 2.5MG INH SOL UD 3ML (DUONEB) NEB ONE (16:00)
[2020-01-30] MEDS ORDERED: PRED20TA PO (16:01)
[2020-01-30 16:33] VITALS: BP 153/83
--- NOTE | 2020-01-31 20:33 | ECGEPIP ---
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
== END 2020-01-30 16:35 | disposition home or self-care (01) ==
LOC: EDBD 12:41 → M ED 12:41
DX: J44.1 Chronic obstructive pulmonary disease with (acute) exacerbation (principal); I48.91 Unspecified atrial fibrillation; I25.10 Atherosclerotic heart disease of native coronary artery without angina pectoris; E11.9 Type 2 diabetes mellitus without complications; I10 Essential (primary) hypertension; K21.9 Gastro-esophageal reflux disease without esophagitis; G20 Parkinson's disease; G40.909 Epilepsy, unspecified, not intractable, without status epilepticus; H54.8 Legal blindness, as defined in USA; F33.9 Major depressive disorder, recurrent, unspecified; F10.10 Alcohol abuse, uncomplicated; F17.200 Nicotine dependence, unspecified, uncomplicated; Z88.0 Allergy status to penicillin; Z88.8 Allergy status to other drugs, medicaments and biological substances; Z79.899 Other long term (current) drug therapy
CPT/HCPCS: 71046; 80048; 80076; 82550; 82553; 83880; 84439; 84443; 84484; 85025; 85610; 85730; 87486; 87581; 87633; 87798; 93005; 93041; 94640; 94760; 96374; 99285; J2930

== ENCOUNTER 2020-02-16 14:03 | Inpatient (IN) | payer MEDICARE, MEDICAID ==
[~2020-02-16] VITALS: Ht 172.7 cm; Wt 67.6 kg
[2020-02-16] MEDS ORDERED: PERCOCET 5MG/325MG TAB As Ordered ONE (15:06)
--- NOTE | 2020-02-16 15:08 | REP ---
INDICATION: ro osteo, poorly healing wound. COMPARISON: 01/30/2020. TECHNIQUE: SINGLE PORTABLE AP VIEW OF THE CHEST WAS PERFORMED. FINDINGS: No acute infiltrate is seen. The lungs are clear. The heart is normal in size. There is calcification the thoracic aorta. The mediastinal silhouette is unchanged. There are degenerative changes of the spine. IMPRESSION: NO ACUTE PULMONARY DISEASE. <Electronically signed by Tulio Poole > 02/16/20 [id number]
--- NOTE | 2020-02-16 15:08 | REP ---
INDICATION: ro osteo, poorly healing wound COMPARISON: 01/10/2020. TECHNIQUE: AP and lateral views obtained. FINDINGS: There is no fracture or dislocation. No acute periosteal reaction or cortical destruction is seen. Soft tissue ulceration is seen anteriorly in the mid lower leg. Mild diffuse vascular calcifications are present in the soft tissues. IMPRESSION: No fracture or dislocation. No radiographic findings of acute osteomyelitis. Further evaluation may be made with MRI if clinically indicated. <Electronically signed by Tulio Poole > 02/16/20 [id number]
[2020-02-16] MEDS ORDERED: PERCOCET 5MG/325MG TAB PO ONE (15:15)
[2020-02-16 15:58] LABS: BASO # 0.1 10^3/uL (0.0-0.2); EOS # 0.2 10^3/uL (0.0-0.5); EOS % 2.9 % (0.0-3.0); HEMATOCRIT 37.7 % (42.0-52.0); HEMOGLOBIN 12.6 g/dl (13.5-17.5); LYMPH # 1.9 10^3/uL (1.5-5.0); LYMPH % 33.2 % (24.0-44.0); MEAN CORPUSCULAR HEMOGLOBIN 30.1 pg (27.0-33.0); MEAN CORPUSCULAR HGB CONC 33.4 g/dl (32.0-36.5); MEAN CORPUSCULAR VOLUME 90.2 fl (80.0-96.0); MONO # 0.4 10^3/uL (0.0-0.8); NEUTROPHILS # 3.3 10^3/uL (1.5-8.5); NEUTROPHILS % 56.6 % (36.0-66.0); PLATELET COUNT, AUTOMATED 265 10^3/uL (150-450); RED BLOOD COUNT 4.18 10^6/uL (4.30-6.10); WHITE BLOOD COUNT 5.8 10^3/uL (4.0-10.0)
[2020-02-16 16:16] LABS: ALBUMIN 3.6 GM/DL (3.2-5.2); ALT/SGPT 23 U/L (12-78); BILIRUBIN,DIRECT 0.1 MG/DL (0.0-0.2); BILIRUBIN,TOTAL 0.4 MG/DL (0.2-1.0); BLOOD UREA NITROGEN 10 MG/DL (7-18); CALCIUM LEVEL 9.3 MG/DL (8.8-10.2); CARBON DIOXIDE LEVEL 28 MEQ/L (21-32); CHLORIDE LEVEL 107 MEQ/L (98-107); CREATININE FOR GFR 0.62 MG/DL (0.70-1.30); GLOMERULAR FILTRATION RATE > 60.0 (>49); GLUCOSE, FASTING 256 MG/DL (70-100); POTASSIUM SERUM 3.8 MEQ/L (3.5-5.1); SODIUM LEVEL 139 MEQ/L (136-145)
--- NOTE | 2020-02-16 17:03 | REP ---
INDICATION: right swollen leg. Soft tissue ultrasound right [place] region. History: Right leg swelling. Open wound. COMPARISON: None. TECHNIQUE: Soft tissue sonography standoff gel is a performed. FINDINGS: Dermal deficit is seen at the site of the open wound. There is no evidence of abscess or other abnormal fluid collection. No mass lesion is seen. IMPRESSION: No abscess or abnormal fluid collection seen. <Electronically signed by Nelson Key > 02/16/20 [id number]
[2020-02-16 17:31] LABS: ERYTHROCYTE SEDIMENTATION RATE 16 mm/hr (0-20)
[2020-02-16] MEDS ORDERED: BACT800T5 PO (18:11)
[2020-02-16] MEDS ORDERED: BACTRIM 160MG/800MG DS TAB PO ONE (18:15)
[2020-02-16] MEDS ORDERED: IPRATROPIUM 0.5MG/ALBUTEROL 2.5MG INH SOL UD 3ML (DUONEB) NEB ONE (18:30)
[2020-02-16] MEDS ORDERED: ALBUTEROL SULFATE 2.5 MG/0.5 ML INH NEB SOLN INH ONE (18:30)
[2020-02-16] MEDS ORDERED: PANT40TA29 PO (19:26)
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
[2020-02-16] MEDS ORDERED: MOM 30ML SUSPENSION UDC PO PRN (20:00)
[2020-02-16] MEDS ORDERED: ACETAMINOPHEN TAB 650MG DOSE (2X325MG) PO PRN ×2 (20:00→22:00)
[2020-02-16] MEDS ORDERED: COMBIVENT RESPIMAT 100-20MCG INHALER 4GM INH PRN (20:15)
[2020-02-16] MEDS ORDERED: ALBUTEROL 90 MCG/ACT 8GM HFA INHALER INH PRN (20:15)
[2020-02-16] MEDS ORDERED: GLUCAGON INJ 1MG VIAL SC PRN (20:30)
[2020-02-16] MEDS ORDERED: GLUCOSE 4GM CHEW TABLET PO PRN (20:30)
[2020-02-16] MEDS ORDERED: DEXTROSE 50% 50 ML SYRINGE IV PRN (20:30)
[2020-02-16] MEDS ORDERED: LORazepam 2 MG TAB PO PRN (20:30)
[2020-02-16] MEDS ORDERED: METOPROLOL SUCC *XL* 25MG TAB (TopROL *XL*) PO ONE (20:30)
[2020-02-16] MEDS ORDERED: LEVEMIR (INSULIN DETEMIR) 1 UNITS/0.01ML SC SCH (21:00)
[2020-02-16] MEDS ORDERED: traZODone 100 MG TAB PO SCH (21:00)
[2020-02-16] MEDS ORDERED: ROSUVASTATIN 10 MG TAB (CRESTOR) PO SCH (21:00)
[2020-02-16] MEDS ORDERED: HumaLOG INSULIN (NovoLOG) PER UNIT SC SCH (21:00)
--- NOTE | 2020-02-16 23:00 | REPVR ---
PROCEDURE INFORMATION: Exam: US Duplex Right Lower Extremity Veins, Limited Exam date and time: 02/16/20 (8:51pm) Age: 65 years old Clinical indication: Right leg pain TECHNIQUE: Imaging protocol: Real-time Duplex ultrasound of the Right Lower Extremity with 2-D diehl scale, color Doppler flow and spectral waveform analysis with image documentation. Limited exam was focused on the right lower extremity veins. COMPARISON: No relevant prior studies available FINDINGS: Right deep veins: Unremarkable. The common femoral, femoral, proximal profunda femoral and popliteal veins are patent without thrombus. Normal Doppler waveforms. Normal compressibility and/or augmentation response. Right superficial veins: Unremarkable. Saphenofemoral junction is patent without thrombus. Soft tissues: Unremarkable. IMPRESSION: No evidence of deep vein thrombosis. Electronically signed by: Gaby Rascon On 02/16/2020 22:59:47 PM
[2020-02-16] MEDS: levETIRAcetam 250MG TABLET (KEPPRA) PO SCH (23:22)
[2020-02-16] MEDS: TOPIRAMATE (TopAMAX) 25 MG TAB PO SCH (23:22)
[2020-02-16] MEDS: APIXABAN 5 MG TAB (ELIQUIS) PO SCH (23:22)
[2020-02-16 23:47] VITALS: BP 140/72
[2020-02-17] VITALS: BP 140/72
[2020-02-17] MEDS: CYCLOBENZAPRINE 10MG TABLET PO SCH ×2 (00:09→08:18)
[2020-02-17] MEDS: GABAPENTIN 300 MG CAP PO SCH ×2 (00:09→08:16)
[2020-02-17] MEDS: hydrOXYzine 25 MG TAB PO SCH ×2 (00:10→08:19)
[2020-02-17] MEDS: THIAMINE 100 MG TAB PO SCH ×2 (00:10→08:16)
[2020-02-17] MEDS: IPRATROPIUM 0.5MG/ALBUTEROL 2.5MG INH SOL UD 3ML (DUONEB) NEB PRN ×2 (00:25→07:35)
[2020-02-17] MEDS: NORCO, ANEXSIA 5/325MG TABLET (HYDROcodone/ACETAMINOPHEN) PO PRN ×2 (03:23→12:35)
[2020-02-17 06:00] VITALS: BP 138/70
[2020-02-17 06:14] LABS: HEMATOCRIT 33.8 % (42.0-52.0); HEMOGLOBIN 11.5 g/dl (13.5-17.5); MEAN CORPUSCULAR HEMOGLOBIN 30.1 pg (27.0-33.0); MEAN CORPUSCULAR VOLUME 88.5 fl (80.0-96.0); PLATELET COUNT, AUTOMATED 231 10^3/uL (150-450); RED BLOOD COUNT 3.82 10^6/uL (4.30-6.10); WHITE BLOOD COUNT 7.5 10^3/uL (4.0-10.0)
[2020-02-17 06:45] LABS: BLOOD UREA NITROGEN 12 MG/DL (7-18); CALCIUM LEVEL 9.5 MG/DL (8.8-10.2); CARBON DIOXIDE LEVEL 24 MEQ/L (21-32); CHLORIDE LEVEL 106 MEQ/L (98-107); GLOMERULAR FILTRATION RATE > 60.0 (>49); GLUCOSE, FASTING 259 MG/DL (70-100); POTASSIUM SERUM 3.7 MEQ/L (3.5-5.1); SODIUM LEVEL 137 MEQ/L (136-145)
[2020-02-17] MEDS: HumaLOG INSULIN (NovoLOG) PER UNIT SC SCH ×2 (08:15→12:33)
[2020-02-17] MEDS ORDERED: IPRATROPIUM 0.5MG/ALBUTEROL 2.5MG INH SOL UD 3ML (DUONEB) NEB PRN (08:15)
[2020-02-17] MEDS: TOPIRAMATE (TopAMAX) 25 MG TAB PO SCH (08:16)
[2020-02-17 08:17] VITALS: BP 138/70
[2020-02-17] MEDS: APIXABAN 5 MG TAB (ELIQUIS) PO SCH (08:17)
[2020-02-17] MEDS: levETIRAcetam 250MG TABLET (KEPPRA) PO SCH (08:17)
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
[2020-02-17] MEDS ORDERED: ramipriL 1.25 MG CAP PO SCH (09:00)
[2020-02-17] MEDS ORDERED: PANTOPRAZOLE 40MG TAB (PROTONIX) PO SCH (09:00)
[2020-02-17] MEDS ORDERED: FOLIC ACID 1 MG TAB PO SCH (09:00)
[2020-02-17] MEDS ORDERED: DIGOXIN 0.125 MG TAB PO SCH (09:00)
[2020-02-17] MEDS ORDERED: predniSONE 20 MG TAB PO SCH (09:00)
[2020-02-17] MEDS ORDERED: ASPIRIN 81 MG ENTERIC TAB PO SCH (09:00)
[2020-02-17] MEDS ORDERED: MULTIVITAMINS/MINERALS THERAP 1 TAB PO SCH (09:00)
[2020-02-17] MEDS ORDERED: THIA100TA PO (09:26)
[2020-02-17 09:27] LABS: HEMOGLOBIN A1c 11.6 %
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
[2020-02-17] MEDS ORDERED: IPRATROPIUM 0.5MG/ALBUTEROL 2.5MG INH SOL UD 3ML (DUONEB) NEB SCH (14:00)
== END 2020-02-17 15:10 | disposition home health service (06) | DRG 914 ==
LOC: EDBD 14:03 → M ED 14:03 → M ED INP 19:20 → ENRESERV 23:23 → M MSPAV 23:46
PROVIDERS: ADMIT Family Medicine; ATTEND Internal Medicine
DX: S89.81XA Other specified injuries of right lower leg, initial encounter (principal); Z59.9 Problem related to housing and economic circumstances, unspecified; E11.9 Type 2 diabetes mellitus without complications; J44.9 Chronic obstructive pulmonary disease, unspecified; I48.91 Unspecified atrial fibrillation; K21.9 Gastro-esophageal reflux disease without esophagitis; G20 Parkinson's disease; F10.10 Alcohol abuse, uncomplicated; G40.909 Epilepsy, unspecified, not intractable, without status epilepticus; I10 Essential (primary) hypertension; I25.10 Atherosclerotic heart disease of native coronary artery without angina pectoris; F32.9 Major depressive disorder, single episode, unspecified; V09.20XA Pedestrian injured in traffic accident involving unspecified motor vehicles, initial encounter; Z79.899 Other long term (current) drug therapy; Z79.4 Long term (current) use of insulin; Z79.82 Long term (current) use of aspirin; Z88.8 Allergy status to other drugs, medicaments and biological substances; Z88.0 Allergy status to penicillin; Z91.013 Allergy to seafood

== ENCOUNTER 2020-02-19 19:51 | Emergency (ER) | payer MEDICARE, MEDICAID ==
[~2020-02-19] VITALS: Ht 172.7 cm; Wt 56.8 kg
[~2020-02-19 19:51] MED LIST changes: +BACT800T5 PO; +PANT40TA29 PO; +THIA100TA PO
[2020-02-19 21:35] VITALS: BP 159/84
== END 2020-02-19 21:36 | disposition home or self-care (01) ==
LOC: M ED 19:51
DX: Z59.9 Problem related to housing and economic circumstances, unspecified (principal); I48.20 Chronic atrial fibrillation, unspecified; I10 Essential (primary) hypertension; E11.9 Type 2 diabetes mellitus without complications; K21.9 Gastro-esophageal reflux disease without esophagitis; J44.9 Chronic obstructive pulmonary disease, unspecified; F17.200 Nicotine dependence, unspecified, uncomplicated; Z79.4 Long term (current) use of insulin; Z79.82 Long term (current) use of aspirin; Z79.51 Long term (current) use of inhaled steroids; Z79.899 Other long term (current) drug therapy; Z88.0 Allergy status to penicillin; Z88.6 Allergy status to analgesic agent; Z88.8 Allergy status to other drugs, medicaments and biological substances; Z91.018 Allergy to other foods

== ENCOUNTER 2020-02-26 10:26 | Emergency (ER) | payer MEDICARE, MEDICAID ==
[~2020-02-26] VITALS: Ht 172.7 cm; Wt 63.6 kg
[2020-02-26] MEDS ORDERED: ALPRAZolam 0.5 MG TAB PO ONE (11:00)
--- NOTE | 2020-02-26 11:39 | REP ---
INDICATION: hemoptysis. COMPARISON: AP 02/16/2020, two view 01/30/2020, CT 12/22/2019 TECHNIQUE: AP lateral seated FINDINGS: The lung forte adequately inflated. CP angles sharply defined with no effusion. There is no lateral pleural thickening or apical scarring. Some peribronchial thickening is noted bilaterally, consistent with bronchitis or reactive airway disease. No dense consolidation. Some underlying COPD again noted. Heart is not enlarged. The aorta is calcified at the arch and mildly tortuous but without aneurysm. Airway intact. Bony thorax shows marginal osteophytes throughout without compression deformity or focal lesion. Degenerative changes are also seen in the AC and glenohumeral joints. No free air under the diaphragm. IMPRESSION: Underlying COPD without acute infiltrate or effusion. There is evidence for a bronchitis or reactive airway disease with peribronchial thickening bilaterally No cardiomegaly or edema. Degenerative changes spine and shoulders. <Electronically signed by William Villegas > 02/26/20 [id number]
[2020-02-26 11:59] VITALS: BP 130/93
== END 2020-02-26 12:09 | disposition home or self-care (01) ==
LOC: M ED 10:26 → EDBD 10:26 → M ED 12:09
DX: J44.9 Chronic obstructive pulmonary disease, unspecified (principal); F32.9 Major depressive disorder, single episode, unspecified; F41.9 Anxiety disorder, unspecified; I48.91 Unspecified atrial fibrillation; Z79.01 Long term (current) use of anticoagulants; Z79.82 Long term (current) use of aspirin; Z79.899 Other long term (current) drug therapy; Z87.891 Personal history of nicotine dependence; Z88.0 Allergy status to penicillin; Z88.8 Allergy status to other drugs, medicaments and biological substances; Z91.018 Allergy to other foods

== ENCOUNTER 2020-05-16 21:32 | Emergency (ER) | payer MEDICARE, MEDICAID ==
[~2020-05-16] VITALS: Ht 175.3 cm; Wt 57.7 kg
[~2020-05-16 21:32] MED LIST changes: +GABA-282 PO; -GABA-843 PO
--- OUTSIDE RECORDS SUMMARY | 2020-05-16 21:39 | CCD | Continuity of Care Document ---
Author Author [facility] Organization Unknown Address [address] [place] [address] Phone [phone] Care Team Providers Care Land Checker Name Role Phone Gonzalez Rob M.D. AUTM [phone] Adiel Stein M.D. AUTM [phone] AUT[facility] Unavailable Problems Description No Information Available Social History Type Date Description Comments Sex Unknown ETOH Use Rarely Tobacco Use Start: Unknown Heavy tobacco smoker (more than 10 cigarettes/day) 3 PPD Tobacco Use Start: Unknown Report Cessation Counseling Was Provided Smoking Status Reviewed: 04/06/20 Report Cessation Counseling W as Provided Allergies, Adverse Reactions, Alerts Active Allergies Reaction Severity Comments Date Penicillin 12/26/2017 Paxil 12/26/2017 Melarose 12/26/2017 Chlorpromazine 12/26/2017 Benadryl 12/26/2017 Medications Active Medications SIG Qnty Indications Ordering Provide r Date Dulcolax 5mg Tablets DR take 2 tabs by mouth prior to procedure per instructions. 2tabs Z12.11 Orlando Bernard MD 12/26/2017 Rozerem 8mg Tablets 1 by mouth every night at bedtime Unknown Nitroglycerin 0.4mg Tablets Sub 1 by mouth sl as needed Unknown Fluoxetine HCL 10mg Capsules 1 by mouth every day Unknown Aspir-[address] 1 by mouth every day Unknown Advair Diskus 500-50mcg/Dose Aeros ol 1 puff twice a day Unknown Ventolin HFA 108(90Base) mcg/Act A erosol 2 puffs qid/prn Unknown Claritin 10mg Capsules 1 by mouth every day Unknown Crestor 5mg Tablets 1 by mouth every day Unknown Digoxin 125mcg Tablets 1 by mouth every day Unknown Diltiazem HCL ER Coated Beads 240mg Caps ER 24HR daily Unknown Eliquis 5mg Tablets 1 tab by mouth twice a day Unknown Gabapentin 300mg Capsules 1 by mouth three times a day Unknown Ramipril 1.25mg Capsules 1 by mouth every day Unknown Basaglar Kwikpen 100 Unit/ML Solution Pen-Inject 20 units QHS Unknown Keppra 1000mg Tablets 1 by mouth twice a day Unknown Glimepiride 4mg Tablets 1 by mouth twice daily Unknown Incruse Ellipta 62.5mcg/Inh Aeroso l 1 puff every day Unknown Topamax 50mg Tablets 1 by mouth twice a day Unknown Proair HFA 108(90Base) mcg/Act Aer osol 2 puffs four times a day as needed Unknown Nexium 40mg Capsules DR 1 by mouth every day Unknown Immunizations Description No Information Available Vital Signs Date Vital Result Comment 04/06/2020 10:34am BP Systolic 110 mmHg BP Diastolic 70 mmHg Heart Rate 93 /min O2 % BldC Oximetry 99 % Room Air Height 68 inches 5'8" [place] Body Weight 154 lb 09/16/2019 9:52am BP Systolic 130 mmHg BP Diastolic 80 mmHg Heart Rate 97 /min O2 % BldC Oximetry 98 % Room Air Body Temperature 97.8 F Height 68 inches 5'8" [place] Body Weight 154 lb Results Description No Information Available Procedures Description No Information Available Medical Devices Description No Information Available Encounters Type Date Location Provider Dx Diagnosis Office Visit 04/06/2020 10:45a [facility] gayatri Klein MD J43.1 Panlobular emphysema R91.8 Other nonspecific abnormal f inding of lung field Z79.02 longterm (current) use of a ntithrombotics/antiplatelets F17.218 Nicotine dependence, cigaret [place], w oth disorders Assessments Date Code Description Provider 04/06/2020 J43.1 Panlobular emphysema Lei lopez MD 04/06/2020 R91.8 Other nonspecific abnormal findi ng of lung field Lei Klein MD 04/06/2020 Z79.02 longterm (current) use of antit hrombotics/antiplatelets Lei Klein MD 04/06/2020 F17.218 Nicotine dependence, cigarettes, with other nicotine-induced disorders Lei Klein MD Plan of Treatment Future Appointment(s):* 05/09/2020 9:45 am - Lei Klein MD at [facility] 04/06/2020 - Lei Klein MD* J43.1 Panlobular emphysema * R91.8 Other nonspecific abnormal finding of lung field * 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 He, essentially, canceled all of his follow-ups last time. He was told if he does not keep his follow-ups, he will not be readmitted to the practice.~ Certainly, we will never make any headway with his respiratory status as long as he continues to smoke, especially, at 3 packs a day, and we had a very blunt and pointed discussion in this regard.~ He wonders about his nighttime oxygen. We will get a nocturnal oximetry on room air, and see what that is like. 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 He maintains that he does, but it is best to reestablish a baseline. We will await his pulmonary functions.~ We will think about a CT scan in six months or, at least, low-dose screening, as he certainly qualifies for that with room to spare. ~ We await the outcome of the above interventions. * Follow up:* See after pfts Functional Status Description No Information Available Mental Status Description No Information Available Referrals Description No Information Available
--- OUTSIDE RECORDS SUMMARY | 2020-05-16 21:40 | CCD ---
Author Author [facility] Address Unknown Phone Unavailable Support Name Relationship Address Phone [place] [address] SKYLER ZAMBRANO Next Of Kin [address] [place] [address] LULA GREEN Next Of Kin [address] [facility] [address] [place] [address] RE Next Of Kin Unknown Unavailable SKYLER [place] [address] JESSE SANDOVAL Next Of Kin [address] [facility] [address] [place] [address] Seble Estrella Next Of Kin [address] [place] [address] Debi Faith Next Of Kin [address] [facility] [address] [place] [address] Radha FAITH Next Of Kin [address] [facility] [address] [place] [address] Gonzalez Rob MD Next Of Kin [address] [place] [address] VERONIKA CALHOUN Next Of Kin [address] [place] [address] UE Next Of Kin Unknown Unavailable MESSI FLOOD Next Of Kin [address] [place] [address] DISABLED Next Of Kin Unknown Unavailable KALA (COUSIN) [place] [address] NO PHONE SOLA FAITH Next Of Kin [address] [place] [address] TJ SAAVEDRA [place] [address] KEE FAITH Next Of Kin [address] [phone] [place] [address] MARÍA KNOXMOND Next Of Kin [address] [place] [address] SKYLER DAVIS Next Of Kin [address] [place] [address] JESSE SANDOVAL [place] [phone] Care Team Providers Care Network Technology Instructor Name Role Phone WOLFENDEN, T REBEKA PA Unavailable Unavailable WOLFENDEN, T REBEKA PA Unavailable Unavailable WOLFENDEN, T REBEKA PA Unavailable Unavailable WOLFENDEN, T REBEKA PA Unavailable Unavailable WOLFENDEN, T REBEKA PA Unavailable Unavailable WOLFENDEN, T REBEKA PA Unavailable Unavailable WOLFENDEN, T REBEKA PA Unavailable Unavailable WOLFENDEN, T REBEKA PA Unavailable Unavailable WOLFENDEN, T REBEKA PA Unavailable Unavailable WOLFENDEN, T REBEKA PA Unavailable Unavailable WOLFENDEN, T REBEKA PA Unavailable Unavailable WOLFENDEN, T REBEKA PA Unavailable Unavailable WOLFENDEN, T REBEKA PA Unavailable Unavailable WOLFENDEN, T REBEKA PA Unavailable Unavailable WOLFENDEN, T REBEKA PA Unavailable Unavailable WOLFENDEN, T REBEKA PA Unavailable Unavailable WOLFENDEN, T REBEKA PA Unavailable Unavailable WOLFENDEN, T REBEKA PA Unavailable Unavailable WOLFENDEN, T REBEKA PA Unavailable Unavailable WOLFENDEN, T REBEKA PA Unavailable Unavailable WOLFENDEN, T REBEKA PA Unavailable Unavailable WOLFENDEN, T REBEKA PA Unavailable Unavailable WOLFENDEN, T REBEKA PA Unavailable Unavailable WOLFENDEN, T REBEKA PA Unavailable Unavailable WOLFENDEN, T REBEKA PA Unavailable Unavailable WOLFENDEN, T REBEKA PA Unavailable Unavailable WOLFENDEN, T REBEKA PA Unavailable Unavailable WOLFENDEN, T REBEKA PA Unavailable Unavailable Jaylon Baird MD Unavailable Unavailable Stanley Ott MD Unavailable Unavailable Stanley Ott MD Unavailable Unavailable Stanley Ott MD Unavailable Unavailable Stanley Ott MD Unavailable Unavailable Stanley Ott MD Unavailable Unavailable Stanley Ott MD Unavailable Unavailable Stanley Ott MD Unavailable Unavailable Stanley Ott MD Unavailable Unavailable Ángel Ottd Unavailable Unavailable OttTalya Moid MD Unavailable Unavailable OttCobyul Moid Unavailable Unavailable OttTalya Moid Unavailable Unavailable OttTalya Moid Unavailable Unavailable OttTalya Moid Unavailable Unavailable Ott Talya Moid MD Unavailable Unavailable Ott, Talya Moid MD Unavailable Unavailable Ott, Talya Moid MD Unavailable Unavailable Ott Talya Moid Unavailable Unavailable Ott, Talya Moid MD Unavailable Unavailable Ott, Talya Moid MD Unavailable Unavailable Ott, Talya Moid MD Unavailable Unavailable Ott, Talya Moid MD Unavailable Unavailable Ott, Talya Moid MD Unavailable Unavailable Ott, Talya Moid Unavailable Unavailable OttTalya Moid Unavailable Unavailable Talya Ott Moid Unavailable Unavailable OttTalya Moid MD Unavailable Unavailable OttTalya Moid MD Unavailable Unavailable Ott Talya Moid MD Unavailable Unavailable Talya Ott Moid MD Unavailable Unavailable Talya Ott Moid MD Unavailable Unavailable Talya Ott Moid MD Unavailable Unavailable OttTalya Moid MD Unavailable Unavailable OttTalya Moid MD Unavailable Unavailable Ott, Talya Moid MD Unavailable Unavailable Talya Ott Moid MD Unavailable Unavailable Talya Ott Moid Unavailable Unavailable Ángel Ottd Unavailable Unavailable Talya Ott Moid MD Unavailable Unavailable Talya Ott Moid Unavailable Unavailable Talya Ott Moid MD Unavailable Unavailable Talya Ott Moid Unavailable Unavailable Talya Ott Moid Unavailable Unavailable OttTalya Moid MD Unavailable Unavailable OttTalya Moid MD Unavailable Unavailable OttCobyul Moid MD Unavailable Unavailable OttCobyul Moid MD Unavailable Unavailable OttCobyul Moid MD Unavailable Unavailable OttCobyul Moid MD Unavailable Unavailable OttCobyul Moid Unavailable Unavailable Coby Ottul Moid Unavailable Unavailable OttCobyul Moid MD Unavailable Unavailable OttCobyul Moid Unavailable Unavailable OttCobyul Moid Unavailable Unavailable Ott, Talya Moid MD Unavailable Unavailable Coby Ottul Moid Unavailable Unavailable Talya Ott Moid Unavailable Unavailable Ott, Talya [place]erman MD Unavailable Unavailable Stanley Ott MD Unavailable Unavailable Stanley Ott MD Unavailable Unavailable Stanley Ott MD Unavailable Unavailable Stanley Ott MD Unavailable Unavailable Stanley Ott MD Unavailable Unavailable Stanley Ott MD Unavailable Unavailable Stanley Ott MD Unavailable Unavailable DA, B RACHEL Unavailable Unavailable Vallejo, Hao PA Unavailable Unavailable Vallejo, Hao PA Unavailable Unavailable Vallejo, Hao PA Unavailable Unavailable Vallejo, Hao PA Unavailable Unavailable Vallejo, Hao PA Unavailable Unavailable IRA OTT MD Unavailable Unavailable IRA OTT MD Unavailable Unavailable Tarik Rob MD Unavailable Unavailable Tarik Rob MD Unavailable Unavailable Tarik Rob MD Unavailable Unavailable Tarik Rob MD Unavailable Unavailable Tarik Rob MD Unavailable Unavailable Tarik Rob MD Unavailable Unavailable Tarik Rob MD Unavailable Unavailable Tarik Rob MD Unavailable Unavailable Tarik Rob MD Unavailable Unavailable Tarik Rob MD Unavailable Unavailable Tarik Rob MD Unavailable Unavailable Tarik Rob MD Unavailable Unavailable Tarik Rob MD Unavailable Unavailable Tarik Rob MD Unavailable Unavailable Tarik Rob MD Unavailable Unavailable Tarik Rob MD Unavailable Unavailable Tarik Rob MD Unavailable Unavailable Tarik Rob MD Unavailable Unavailable Tarik Rob MD Unavailable Unavailable Tarik Rob MD Unavailable Unavailable Tarik Rob MD Unavailable Unavailable Tarik Rob MD Unavailable Unavailable Tarik Rob MD Unavailable Unavailable Tarik Rob MD Unavailable Unavailable Tarik Rob MD Unavailable Unavailable Tarik Rob MD Unavailable Unavailable Tarik Rob MD Unavailable Unavailable Tarik Rob MD Unavailable Unavailable Tarik Rob MD Unavailable Unavailable Tarik Rob MD Unavailable Unavailable Tarik Rob MD Unavailable Unavailable Tarik Rob MD Unavailable Unavailable Tarik Rob MD Unavailable Unavailable Tarik Rob MD Unavailable Unavailable Tarik Rob MD Unavailable Unavailable Tarik Rob MD Unavailable Unavailable Tarik Rob MD Unavailable Unavailable Tarik Rob MD Unavailable Unavailable Tarik Rob MD Unavailable Unavailable Tarik Rob MD Unavailable Unavailable Tarik Rob MD Unavailable Unavailable Tarik Rob MD Unavailable Unavailable Tarik Rob MD Unavailable Unavailable Tarik Rob MD Unavailable Unavailable Tarik Rob MD Unavailable Unavailable Tarik Rob MD Unavailable Unavailable Tarik Rob MD Unavailable Unavailable Tarik Rob MD Unavailable Unavailable Tarik Rob MD Unavailable Unavailable Tarik Rob MD Unavailable Unavailable Tarik Rob MD Unavailable Unavailable Tarik Rob MD Unavailable Unavailable Tarik Rob MD Unavailable Unavailable Tarik Rob MD Unavailable Unavailable Tarik Rob MD Unavailable Unavailable Tarik Rob MD Unavailable Unavailable Tarik Rob MD Unavailable Unavailable Tarik Rob MD Unavailable Unavailable Tarik Rob MD Unavailable Unavailable Tarik Rob MD Unavailable Unavailable Tarik Rob MD Unavailable Unavailable Tarik Rob MD Unavailable Unavailable Tarik Rob MD Unavailable Unavailable Tarik Rob MD Unavailable Unavailable Tarik Rob MD Unavailable Unavailable Tarik Rob MD Unavailable Unavailable Tarik Rob MD Unavailable Unavailable Tarik Rob MD Unavailable Unavailable Tarik Rob MD Unavailable Unavailable Tarik Rob MD Unavailable Unavailable Tarik Rob MD Unavailable Unavailable Tarik Rob MD Unavailable Unavailable Tarik Rob MD Unavailable Unavailable Tarik Rob MD Unavailable Unavailable Tarik Rob MD Unavailable Unavailable Tarik Rob MD Unavailable Unavailable Tarik Rob MD Unavailable Unavailable Tarik Rob MD Unavailable Unavailable Tarik Rob MD Unavailable Unavailable Tarik Rob MD Unavailable Unavailable Tarik Rob MD Unavailable Unavailable Tarik Rob MD Unavailable Unavailable Tarik Rob MD Unavailable Unavailable Tarik Rob MD Unavailable Unavailable Tarik Rob MD Unavailable Unavailable Tarik Rob MD Unavailable Unavailable Tarik Rob MD Unavailable Unavailable Tarik Rob MD Unavailable Unavailable Tarik Rob MD Unavailable Unavailable TURRIN, DENVER Unavailable Unavailable TURRIN, DENVER Unavailable Unavailable TURRIN, DENVER Unavailable Unavailable TURRIN, DENVER Unavailable Unavailable Mitchell, J Maximino PA-C Unavailable Unavailable Mitchell, J Maximino PA-C Unavailable Unavailable Mitchell, J Maximino PA-C Unavailable Unavailable Mitchell, J Maximino PA-C Unavailable Unavailable Mitchell, J Maximino PA-C Unavailable Unavailable Mitchell, J Maximino PA-C Unavailable Unavailable Mitchell, J Maximino PA-C Unavailable Unavailable Mitchell, J Maximino PA-C Unavailable Unavailable Mitchell, J Maximino PA-C Unavailable Unavailable Mitchell, J Maximino PA-C Unavailable Unavailable Mitchell, J Maximino PA-C Unavailable Unavailable Mina Deng Unavailable Unavailable Juan Manuel FOURNIER Unavailable Unavailable Maximino Klein MD Unavailable Unavailable Maximino Klein MD Unavailable Unavailable Maximino Klein MD Unavailable Unavailable Maximino Klein MD Unavailable Unavailable Maximino Klein MD Unavailable Unavailable Maximino Klein MD Unavailable Unavailable Maximino Klein MD Unavailable Unavailable Maximino Klein MD Unavailable Unavailable Maximino Klein MD Unavailable Unavailable Maximino Klein MD Unavailable Unavailable Maximino Klein MD Unavailable Unavailable KleinMaximino MD Unavailable Unavailable Maximino Klein MD Unavailable Unavailable KleinMaximino MD Unavailable Unavailable KleinMaximino MD Unavailable Unavailable KleinMaximino MD Unavailable Unavailable KleinMaximino MD Unavailable Unavailable KleinMaximino MD Unavailable Unavailable KleinMaximino MD Unavailable Unavailable KleinMaximino MD Unavailable Unavailable KleinMaximino MD Unavailable Unavailable Maximino Klein MD Unavailable Unavailable KleinMaximino MD Unavailable Unavailable KleinMaximino MD Unavailable Unavailable KleinMaximino MD Unavailable Unavailable KleinMaximino MD Unavailable Unavailable KleinMaximino MD Unavailable Unavailable KleinMaximino MD Unavailable Unavailable KleinMaximino MD Unavailable Unavailable KleinMaximino MD Unavailable Unavailable KleinMaximino MD Unavailable Unavailable KleinMaximino MD Unavailable Unavailable KleinMaximino MD Unavailable Unavailable KleinMaximino MD Unavailable Unavailable KleinMaximino MD Unavailable Unavailable KleinMaximino MD Unavailable Unavailable KleinMaximino MD Unavailable Unavailable Maximino Klein MD Unavailable Unavailable Maximino Klein MD Unavailable Unavailable Maximino Klein MD Unavailable Unavailable Maximino Klein MD Unavailable Unavailable Maximino Klein MD Unavailable Unavailable Maximino Klein MD Unavailable Unavailable Maximino Klein MD Unavailable Unavailable Maximino Klein MD Unavailable Unavailable Maximino Klein MD Unavailable Unavailable Maximino Klein MD Unavailable Unavailable Maximino Klein MD Unavailable Unavailable Maximino Klein MD Unavailable Unavailable Maximino Klein MD Unavailable Unavailable Maximino Klein MD Unavailable Unavailable Lois SALGUERO MD Unavailable Unavailable Lois SALGUERO MD Unavailable Unavailable Lois SALGUERO MD Unavailable Unavailable Lois SALGUERO MD Unavailable Unavailable Lois SALGUERO MD Unavailable Unavailable Lois SALGUERO MD Unavailable Unavailable Lois SALGUERO MD Unavailable Unavailable Lois SALGUERO MD Unavailable Unavailable Lois SALGUERO MD Unavailable Unavailable Lois SALGUERO MD Unavailable Unavailable Lois SALGUERO MD Unavailable Unavailable Lois SALGUERO MD Unavailable Unavailable Lois SALGUERO MD Unavailable Unavailable Lois SALGUERO MD Unavailable Unavailable Lois SALGUERO MD Unavailable Unavailable Lois SALGUERO MD Unavailable Unavailable Lois SALGUERO MD Unavailable Unavailable Lois SALGUERO MD Unavailable Unavailable Lois SALGUERO MD Unavailable Unavailable Lois SALGUERO MD Unavailable Unavailable Lois SALGUERO MD Unavailable Unavailable Lois SALGUERO MD Unavailable Unavailable Lois SALGUERO MD Unavailable Unavailable Re-disclosure Warning The records that you are about to access may contain information from federally-assisted alcohol or drug abuse programs. If such information is present, then the following federally mandated warning applies: This information has been disclosed to you from records protected by federal confidentiality rules (42 CFR part 2). The federal rules prohibit you from making any further disclosure of this information unless further disclosure is expressly permitted by the written consent of the person to whom it pertains or as otherwise permitted by 42 CFR part 2. A general authorization for the release of medical or other information is NOT sufficient for this purpose. The Federal rules restrict any use of the information to criminally investigate or prosecute any alcohol or drug abuse patient.The records that you are about to access may contain highly sensitive health information, the redisclosure of which is protected by Article 27-F of the [facility] Public Health law. If you continue you may have access to information: Regarding HIV / AIDS; Provided by facilities licensed or operated by the [facility] Office of Mental Health; or Provided by the [facility] Office for People With Developmental Disabilities. If such information is present, then the following [facility] mandated warning applies: This information has been disclosed to you from confidential records which are protected by state law. State law prohibits you from making any further disclosure of this information without the specific written consent of the person to whom it pertains, or as otherwise permitted by law. Any unauthorized further disclosure in violation of state law may result in a fine or shelter sentence or both. A general authorization for the release of medical or other information is NOT sufficient authorization for further disc losure. Allergies and Adverse Reactions Type Description Substance Reaction Status Data Source(s ) BRANDNAME PROZAC PROZAC [facility] BRANDNAME PAXIL PAXIL [facility] Drug allergy LITHIUM LITHIUM [facility] CLASS PCN (penicillin) PCN (penicillin) Ca [facility] Drug allergy penicillin G Penicillin G [facility] Drug allergy diphenhydramine diphenhydramine [facility] Drug allergy chlorpromazine chlorpromazine Anaphylaxis SV [facility] Drug allergy paroxetine paroxetine [facility] Drug allergy ibuprofen Ibuprofen [facility] Drug allergy acetaminophen Acetaminophen [facility] Drug allergy lithium lithium [facility] Food allergy FISH FISH [facility] Family History Family Member Name Family Member Gender Family Member Status Date o f Status Description Data Source(s) Unknown Unknown Problem [facility] ([facility] Encounters Encounter Providers Location Date Indications Data Source(s ) Outpatient Attender: Lei Flowers/Shruthi/Elier avila 04/06/2020 09:45:00 AM EST [facility] ([facility] Outpatient Attender: RACHEL Pollock nder: CAL FOURNIERConsultant: RUFUS OTT MDConsultant: Adiel Ott MD 02/05/2020 02:36:00 PM EDT - 02/06/2020 12:23:00 PM EDT [facility] Patient discharged. Outpatient Attender: REBEKA MICHELEttender: SANDRA SALGUERO MDConsultant: RUFUS OTT MDConsultant: Adiel Ott MD 02/02/2020 07 :48:00 PM EDT - 02/03/2020 01:55:00 PM EDT [facility] Patient discharged. Emergency Attender: DENVER ARREAGAConsultant: Adiel Montanez 01/06/2020 07:17:00 PM EDT - 01/06/2020 09:07:00 PM EDT [facility] Patient admitted. Outpatient 11/10/2019 10:34:00 PM EDT thoracic surgery consult [facility] thoracic surgery consult Inpatient Attender: Jaylon aBird MD Admitter: Jaylon Baird MDConsultant: Hao Vallejo PAConsultant: Mina Deng PA 0 11/10/2019 06:18:00 PM EDT - 11/13/2019 11:22:00 AM EDT B RIB FX, SYNCOPE [facility] B RIB FX, SYNCOPE Patient discharged. Emergency Attender: Maximino VERDE-CConsultant: Adiel horne MD 11/10/2019 10:48:00 AM EDT - 11/10/2019 05:03:00 PM EDT [facility] Patient discharged. Outpatient Attender: Gonzalez Rob MD 08/31/2019 01:55:01 PM EDT [facility] Outpatient 08/17/2019 02:57:00 PM EDT [facility] Outpatient Attender: Gonzalez Rob MD FP 08/07/2019 03:58:00 PM EDT [facility] Outpatient Attender: Gonzalez Rob MD 08/07/2019 10:05:00 AM EDT [facility] Outpatient 08/03/2019 02:34:00 PM EDT [facility] Outpatient 08/03/2019 02:33:00 PM EDT [facility] 06/22/2019 01:59:00 PM EDT [facility] 06/15/2019 03:17:00 PM EST [facility] 05/28/2019 12:17:00 PM EST [facility] Emergency Attender: DENVER Leonardant: Adiel Montanez 05/14/2019 09:46:00 AM [facility] - 05/14/2019 01:19:00 PM [facility] Patient discharged. Outpatient 05/14/2019 06:06:00 AM EST [facility] Outpatient 05/07/2019 07:15:00 PM [facility] Emergency Attender: DENVER Berrysultant: Adiel Montanez 05/07/2019 06:37:00 PM [facility] - 05/07/2019 08:31:00 PM [facility] Patient discharged. Outpatient Attender: Gonzalez Rob MD 04/03/2019 08:02:28 PM [facility] Outpatient Attender: Gonzalez Rob MD 03/31/2019 10:50:01 AM [facility] Functional Status Medications Medication Brand Name Start Date Product Form Dose Route Admi nistrative Instructions Pharmacy Instructions Status Indications Reaction Description Data Source(s) Oxycodone Hydrochloride 5 MG Oral Tablet Oxycodone 11/13/2019 09 :35:20 AM EDT 5 MG [facility] POLYETHYLENE GLYCOL 3350 142 MG/ML Oral Solution Polye thylene Glycol 3350 Polyethylene Glycol 3350 11/13/2019 09:32:00 AM EDT 17 GM [facility] Digoxin 0.125 MG Oral Tablet Digoxin 11/11/2019 08:15:05 AM EDT 125 MCG [facility] Hydroxyzine Hydrochloride 25 MG Oral Tablet Hydroxyzine Hcl Hydroxyzine Hcl 11/11/2019 08:15:05 AM EDT 25 MG [facility] Acetaminophen 300 MG / Codeine Phosphate 30 MG Oral Tablet Acetaminophen-Codeine Acetaminophen-Codeine 11/10/2019 09:14:51 PM EDT 1 TAB completed [facility] Trazodone Hydrochloride 100 MG Oral Tablet Trazodone 11/09 06:45:57 PM EDT 100 MG active [facility] topiramate 50 MG Oral Tablet Topiramate Topiramate 11/10/2019 06: 45:57 PM EDT 50 MG active [facility] Acetaminophen 300 MG / Codeine Phosphate 30 MG Oral Tablet Acetaminophen-Codeine Acetaminophen-Codeine 11/10/2019 06:45:57 PM EDT 1 TAB active [facility] Albuterol Sulfate (Proair Hfa) 90 mcg/actuation Hfa Aerosol Inhaler 11/10/2019 06:45:57 PM EDT 2 PUFFS completed [facility] Albuterol Sulfate (Ventolin Hfa) 90 mcg/actuation HFA aeroso l inhaler 11/10/2019 06:45:57 PM EDT 2 PUFFS active [facility] Rosuvastatin calcium 5 MG Oral Tablet Rosuvastatin 11/10/2019 06:28 :55 PM EDT 5 MG active [facility] Esomeprazole 40 MG Delayed Release Oral Capsule Esomeprazole Magnesium (Nexium) 40 mg Capsule,Delayed Release(Dr/Ec) Esomeprazole Magnesium (Nexium) 40 mg Capsule,Delayed Release(Dr/Ec) 11/10/2019 06:28:55 PM EDT 40 MG active [facility] Ramipril 1.25 MG Oral Capsule Ramipril 11/10/2019 06:28:55 PM EDT 1.25 MG active [facility] gabapentin 300 MG Oral Capsule Gabapentin Gabapentin 2019 06:28:55 PM EDT 300 MG active [facility] Loratadine 10 MG Oral Tablet [Claritin] Loratadine (Cl aritin) 10 mg Tablet Loratadine (Claritin) 10 mg Tablet 11/10/2019 06:28:55 PM EDT 10 MG active [facility] Fluoxetine 10 MG Oral Capsule Fluoxetine 11/10/2019 06:28:55 PM EDT 10 MG active [facility] Cyclobenzaprine hydrochloride 10 MG Oral Tablet Cyclobenzapr ine 11/10/2019 06:28:55 PM EDT 10 MG active [facility] Fluticasone propionate 0.25 MG/ACTUAT / salmeterol 0.05 MG/ACTUAT Dry Powder Inhaler Fluticasone Propion-Salmeterol (Advair Diskus) 250-50 mcg/dose blister with device Fluticasone Propion-Salmeterol (Advair D iskus) 250-50 mcg/dose blister with device 11/10/2019 06:28:55 PM EDT 1 INH act sav[place] [facility] apixaban 5 MG Oral Tablet Apixaban (Eliquis) 5 mg tabl et Apixaban (Eliquis) 5 mg tablet 11/10/2019 06:28:55 PM EDT 5 MG active [facility] Insulin Glargine Insulin Glargine (Basag lar Kwikpen U-100 Insulin) 100 unit/mL (3 mL) insulin pen Insulin Glargine (Basaglar Kwikpen U-100 Insulin) 100 unit/mL (3 mL) insulin pen 11/10/2019 06:28:55 PM EDT 20 UNIT a ctive [facility] Aspirin 81 MG Delayed Release Oral Tablet Aspirin 11/10/2019 0 6:28:55 PM EDT 81 MG active [facility] 24 HR Diltiazem Hydrochloride 240 MG Ext ended Release Oral Capsule Diltiazem Hcl (Dilt-Xr) 240 mg capsule,ext.rel 24h degradable Diltiazem Hcl (Dilt-Xr) 240 mg capsule,ext.rel 24h degradable 11/10/2019 06:28:55 PM EDT 240 MG [facility] Levetiracetam 500 MG Oral Tablet Levetiracetam 11/10/2019 06:28:55 PM EDT 500 MG active [facility] glimepiride 2 MG Oral Tablet Glimepiride Glimepiride 020 06:28:55 PM EDT 4 MG [facility] Levofloxacin 500 MG Oral Tablet Levofloxacin 09/16/2019 12:00:00 AM E DT ORAL active [facility] ([facility] ) Insurance Providers Payer name Policy type / Coverage type Policy ID Covered republican ID Covered republican's relationship to anand Policy Anand Plan Information EMEDSANAZ [id number] SP [id number] MEDICARE [id number] SP [id number] MEDICARE C [id number] S [id number] MEDICAID M [id number] MEDICARE PART A -O/P [id number] MEDICAID -O/P EMERGENCY ROOM [id number] MEDICAID -PHYSICIAN [id number] OTHER NO FAULT [id number] SP [id number] Medicaid S [id number] Medicare P [id number] S [id number] MEDICAID [id number] SP [id number] MEDICAID [id number] SP [id number] MEDICARE PART A -O/P [id number] 18 [id number] MEDICARE [id number] SP [id number] MEDICAID [id number] SP [id number] Medicaid S [id number] Medicaid [place] Medigap Part B [id number] Self [id number] Medicare [facility] Medicare Primary [id number] Self [id number] MEDICARE C [id number] S [id number] MEDICARE [id number] SP [id number] MEDICAID [id number] SP [id number] [facility] ADMIN[facility]AT[employer], [employer] [facility] [facility] C [id number] S [id number] Medicaid S [id number] S [id number] [place] JE PART B C [id number] S [id number] [place] MEDIC[place] PART B C [id number] S [id number] MEDICAID [id number] MEDICARE [id number] SP [id number] OTHER NO FAULT [id number] SP [id number] SELF PAY O UNAVAILABLE S UNA[place]ILA BLE MEDICAID UNAVAILABLE UNAVAILA BLE MCRB [id number] S [id number] MEDICARE [id number] S [id number] MEDICAID [id number] S [id number] MCRB [id number] S [id number] MEDICAID [id number] S [id number] MCRB [id number] S [id number] A MEDICAID [id number] S [id number] MCRB [id number] S [id number] MCRB [id number] Problems, Conditions, and Diagnoses Code Display Name Description Problem Type Effective Dates Data Source(s) Z9119 Patient's noncompliance with other medic al treatment and regimen Patient's noncompliance with other medical treatment and regimen Diagnosis 02/05/2020 02:36:00 PM EDT [facility] I4891 Unspecified atrial fibrillation Unspecified atrial fib rillation Diagnosis 02/05/2020 02:36:00 PM EDT [facility] E878 Other disorders of electrolyte and fluid balance, not elsewhere classified Other disorders of electrolyte and fluid balance, not elsewhere classified Diagnosis 02/05/2020 02:36:00 PM EDT [facility] G20 Parkinson's disease Parkinson's disease Diagnosis 1 02:36:00 PM EDT [facility] R569 Unspecified convulsions Unspecified convulsions Diagno sis 02/05/2020 02:36:00 PM EDT [facility] E860 Dehydration Dehydration Diagnosis 02/05/2020 02:36:00 PM EDT [facility] 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 USP (cu rrent) use of insulin Diagnosis 02/05/2020 02:36:00 PM EDT [facility] E119 Type 2 diabetes mellitus without complic ations Type 2 diabetes mellitus without complications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 [Moles/volume] in Serum or Plasma 95 mEq/L 98 - 107 L [facility] Carbon dioxide, total [Moles/volume] in Serum or Plasma 23 MEQ/L 22 - 30 [facility] Glucose [Mass/volume] in Serum or Plasma 341 MG/DL 65 - 110 H [facility] BUN 11 MG/DL 7 - 21 [facility] Creat[facility] [Mass/volume] in Serum or Plasma 0.5 MG/DL 0.7 - 1.5 L [facility] BUN/CREAT 22 8 - 27 [facility] Calcium [Mass/volume] in Serum or Plasma 8.9 MG/DL 8.4 - 10.2 [facility] Anion gap 3 in Serum or Plasma 12.0 mmol/L 8.0 - 16.0 [facility] AGE 65 yrs [facility] AFR AMER GFR >60 mL/min [facility] NON-AA GFR >60 mL/min [facility] Male GFR Inter prentation 20-49 yrs >60 mL/min Normal 50-59 yrs >56 mL/min Normal 60-69 yrs >49 mL/min Normal 70-79yrs >42 mL/min Normal 80 and above >35 mL/min Normal Female GFR Interpretation 20-39 yrs >60 mL/min Normal 40-49 yrs >58 mL/min Normal 50-59 yrs >51 mL/min Normal 60-69 yrs >45 mL/min Normal 70-79 yrs >39 mL/min Normal 80 and above >32 mL/min Normal ID Date Data Source [id number] 02/05/2020 03:34:00 PM EDT [facility] Name Value Range Interpretation Code Description Data Raquel rce(s) Supporting Document(s) CBC W/AUTOMATED DIFF [facility] COMPLETE BLOOD COUNT Leukocytes [#/volume] in Blood by Automated count 7.1 10^3/uL 4.2 - 1 1.0 [facility] Erythrocytes [#/volume] in Blood by Automated count 3.98 10^6/uL 4. 50 - 6.30 L [facility] Hemoglobin [Mass/volume] in Blood 12.4 g/dL 14.0 - 16.0 L [facility] Hematocrit [Volume Fraction] of Blood by Automated count 35.1 % 4 1.0 - 51.0 L [facility] Erythrocyte mean corpuscular volume [Entitic volume] by Auto mated count 88.2 fL 80.0 - 94.0 [facility] Erythrocyte mean corpuscular hemoglobin [Entitic mass] by Automated count 31.2 pg 27.0 - 34.0 [facility] Erythrocyte mean corpuscular hemoglobin concentration [Mass/volume] by Automated count 35.3 g/dL 31.0 - 36.0 [facility] Erythrocyte distribution width [Ratio] by Automated count 13.5 % 11.5 - 14.8 [facility] Platelets [#/volume] in Blood by Automated count 238 10^3/uL 150 - 45 0 [facility] Platelet mean volume [Entitic volume] in Blood by Automated count 10.0 fL 7.4 - 10.4 [facility] Neutrophils/100 leukocytes in Blood by Automated count 56.5 % 37. 0 - 80.0 [facility] Lymphocytes/100 leukocytes in Blood by Manual count 34.5 % 25.0 - 40.0 [facility] Monocytes/100 leukocytes in Blood by Automated count 5.4 % 3.0 - 8.0 [facility] Eosinophils/100 leukocytes in Blood by Automated count 2.7 % 0.0 - 7.0 [facility] Basophils/100 leukocytes in Blood by Automated count 0.6 % 0.0 - 2.0 [facility] %IG 0.3 % 0.0 - 0.0 H [facility] %NRBC 0.0 % 0.0 - 0.0 [facility] al Neutrophils [#/volume] in Blood by Automated count 3.99 10^3/uL 2.00 - 6.90 [facility] Lymphocytes [#/volume] in Blood by Automated count 2.43 10^3/uL 0.60 - 3.40 [facility] Monocytes [#/volume] in Blood by Automated count 0.38 10^3/uL 0.00 - 0.90 [facility] Eosinophils [#/volume] in Blood by Automated count 0.19 10^3/uL 0.00 - 0.70 [facility] Basophils [#/volume] in Blood by Automated count 0.04 10^3/uL 0.00 - 0.20 [facility] #IG 0.02 10^3/uL 0.00 - 0.10 [facility] ospital #NRBC 0.00 10^3/uL 0.00 - 0.00 [facility] ospital MANUAL DIFF NOT INDICATED [facility] RBC MORPH NOT INDICATED [facility] spital ID Date Data Source [id number] 02/05/2020 03:33:00 PM EDT [facility] Name Value Range Interpretation Code Description Data Raquel rce(s) Supporting Document(s) [facility] COL[facility] yellow NORMAL: Yellow [facility] CLARITY clear NORMAL: Clear [facility] Specific gravity of Urine by Test strip 1.010 1.001 - 1.030 [facility] pH 6.5 5 - 9 [facility] al Glucose [Mass/volume] in Urine by Test strip 1000 NORMAL: Negat [place] A [facility] Bilirubin.total [Presence] in Urine by Test strip NEG NORMAL: Negative [facility] Ketones [Presence] in Urine by Test strip 5 NORMAL: Negative [facility] Protein [Mass/volume] in Urine by Test strip NEG NORMAL: Negat [place] [facility] Nitrite [Presence] in Urine by Test strip NEG NORMAL: Negative [facility] BLOOD NEG NORMAL: Negative [facility] Leukocyte esterase [Presence] in Urine by Test strip NEG SANDRA L: Negative [facility] Urobilinogen [Mass/volume] in Urine by Test strip NOR less jeninffer n 1.0 mg/dL [facility] MICROSCOPIC Not Indicate [facility] ID Date Data Source [id number] 02/04/2020 09:46:00 [place] [address] CONSULTATIONNAME: DIMA Garcia ROOM#: [id number] OF : 1955 MR#: [id number] PHYS: Rebeka Boucher PA-C DATE: 02/02/20DATE OF CONSULTATION: 02/03/2020HISTORY OF PRESENT ILLNESS:This is a 65-year-old white male who presented with dyspnea and wheezing. Patient complained of tirednessand dyspnea for the last few days. He says for the last couple of days he improved the cough. He was in hisvehicle driving and he became more dyspneic, and was brought to the emergency room. Patient complains ofdyspnea on exertion, some ankle edema.MEDICATIONS:He takes Advair Diskus twice a day, basaglar insulin 20 units, Claritin daily, Crestor 5 mg daily, diltiazem 240daily, Eliquis 5 mg bid, Flexeril daily, gabapentin 300 mg tid, Amaryl 4 mg 1-1/2 tablet bid, Incruse Ellipta,Keppra one tablet bid, Nexium 40 mg daily, Prozac 10 mg daily, Ramipril 1.25 mg daily.REVIEW OF SYSTEMS:He does complain of chest pain. No chills or fever. No cough or hemoptysis. No bowel disturbance. No ankleedema.PAST MEDICAL HISTORY:In the past, the patient was admitted to [facility], he was admitted several times. He was lastadmitted on December 09, 2019 for weakness. He has known diabetes, hypertension.PAST SURGICAL HISTORY:Appendectomy, bilateral cataract, cholecystectomy, gastrectomy, partial vasectomy.PERSONAL HISTORY:He smokes for many years. Drinks 1 pint of whiskey a day.PHYSICAL EXAM:GENERAL: Moderately built.VITAL SIGNS: Blood pressure 130/80, pulse 80.HEENT: Head and eyes normal. Mouth normal.NECK: Supple. No lymphadenopathy. Thyroid not enlarged. Neck veins are not distended. No carotidbruits.CHEST: Symmetrical.HEART: Regular sinus rhythm. No murmur or gallop.LUNGS: Clear. No rales or rhonchi.ABDOMEN: Soft. Nontender. No visceromegaly. [address] [place] [address] CONSULTATIONNAME: DIMA Garcia ROOM#: [id number] OF : 1955 MR#: [id number] PHYS: Rebeka Boucher PA-C DATE: 02/02/20EXTREMTIES: Normal. Peripheral pulses palpable.NEUROLOGICAL: Normal.LABORATORY DATA:Blood tests show hemoglobin 14.2, sodium 131, potassium 3.8, glucose 443, BUN 12, creatinine 0.6.EKG showed regular sinus rhythm. X-ray of the chest is negative. [facility] at [facility]-60%.IMPRESSION/RECOMMENDATIONS:Patient with possible costochondritis, atypical chest pain, and COPD. I agree with the currentmanagement.DD: Jamar Valentine MD, DEE 02/03/20 17:25DT: SSR 02/04/20 09:46DS: Jamar Valentine MD, PC 02/05/20 09:37 2 Name Value Range Interpretation Code Description Data Raquel rce(s) Supporting Document(s) ID Date Data Source [id number] 02/04/2020 09:15:00 AM EDT [facility] [address] [place] [address] PHONE: [phone] FAX: [phone] Name .................. : DIMA Garcia Acct Number.................. : [id number] ROOM. ................. : [id number] MR Number ................... : [id number] Stay type ............. : E/R Discharge Date......... ... : Admit Date ......... : 02/02/20 Admit Phys .................... : COONEYNORM Date of ....... : 1955 Family Phys ................... : TRU WATERMAN Phone .................. : [phone] Age ................................ : 65 Film# .................. .:[id number] Sex ................................. : M Unsigned transcriptions are preliminary reports and do not represent a medical or legal document CHEST PORTABLE [id number] COMPLETE:02/02/20 21:13 RLB [id number] Reason (s): Chest Pain PORTABLE CHEST X-RAY: INDICATION: Chest pain. COMPARISON: 05/14/19 FINDINGS: The cardiac and mediastinal silhouettes appear normal and the lungs are clear. The bones and soft tissues are normal. The upper abdomen is unremarkable. IMPRESSION: No acute disease identifiable. Electronically Reviewed and Signed By Fazal Kaur MD , 02/04/20 09:15, ARLIN Transcribe Initials: DZ , Transcribe Date: 02/02/20 21:25, Dictation Date: Copy for: EMERGENCY DEPT via modem Copy for: [address] [place] [address] REC Page 1 of 1 Name Value Range Interpretation Code Description Data Raquel rce(s) Supporting Document(s) ID Date Data Source [id number] 02/03/2020 07:25:00 [place] [address] RESPIRATORY CARE REPORT ==== ---------NAME------- NUMBER SEX AGE ADMIT DISC. XRAY# F/C [facility] DONNY Garcia [id number] M 65 02/02/20 02/03/20 [id number] [id number] O/P DATE OF : 1955 M/R# [id number] #: [id number] LOCATION: EMERGENCY DEPT EKG [id number] COMPL ETE:02/03/20 19:24 T [id number] PHYSICIAN: GABRIELA Name Value Range Interpretation Code Description Data Raquel rce(s) Supporting Document(s) ID Date Data Source [id number] 02/03/2020 07:19:00 [place] [address] RESPIRATORY CARE REPORT ==== ---------NAME------- NUMBER SEX AGE ADMIT DISC. XRAY# F/C AUTUMN Garcia [id number] M 65 02/02/20 02/03/20 [id number] [id number] O/P DATE OF : 1955 M/R# [id number] #: [id number] LOCATION: EMERGENCY DEPT [facility] [id number] COMPL ETE:02/03/20 01:58 VMT [id number] PHYSICIAN: GABRIELA SALGUERO NOR Name Value Range Interpretation Code Description Data Raquel rce(s) Supporting Document(s) ID Date Data Source [id number] 02/03/2020 11:02:00 AM EDT [facility] Name Value Range Interpretation Code Description Data Raquel rce(s) Supporting Document(s) TROPONIN T <0.01 NG/ML 0.00 - 0.10 [facility] ospital TROPONIN T0.1 ng/ml Recommended as the c linical threshold value forTroponin T. ID Date Data Source [id number] 02/03/2020 06:40:00 AM EDT [facility] Name Value Range Interpretation Code Description Data Raquel rce(s) Supporting Document(s) COMPREHENSIVE METABOLIC PANEL [facility] COMPREHENSIVE METABOLIC PANEL Sodium [Moles/volume] in Serum or Plasma 135 mEq/L 134 - 153 [facility] Potassium [Moles/volume] in Serum or Plasma 3.5 mEq/L 3.6 - 5.0 L [facility] Chloride [Moles/volume] in Serum or Plasma 101 mEq/L 98 - 107 [facility] Carbon dioxide, total [Moles/volume] in Serum or Plasma 26 MEQ/L 22 - 30 [facility] Glucose [Mass/volume] in Serum or Plasma 355 MG/DL 65 - 110 H [facility] BUN 9 MG/DL 7 - 21 [facility] Creatinine [Mass/volume] in Serum or Plasma 0.6 MG/DL 0.7 - 1.5 L [facility] BUN/CREAT 15 8 - 27 [facility] al Protein [Mass/volume] in Serum or Plasma 6.0 G/DL 6.3 - 8.2 L [facility] Albumin [Mass/volume] in Serum or Plasma 3.6 G/DL 3.9 - 5.0 L [facility] Globulin [Mass/volume] in Serum by calculation 2.4 GM/DL 2.4 - 3.2 [facility] A/G RATIO 1.5 0.8 - 2.0 [facility] Calcium [Mass/volume] in Serum or Plasma 8.8 MG/DL 8.4 - 10.2 [facility] Bilirubin.total [Mass/volume] in Serum or Plasma <0.7 MG/DL 0.2 - 1.3 [facility] Alkaline phosphatase [Enzymatic activity/volume] in Serum or Plasma 70 U/L 38 - 126 [facility] Aspartate aminotransferase [Enzymatic activity/volume] in Serum or Plasma 11 U/L 5 - 40 [facility] Alanine aminotransferase [Enzymatic activity/volume] in Seru m or Plasma 15 U/L 7 - 56 [facility] Anion gap 3 in Serum or Plasma 8.0 mmol/L 8.0 - 16.0 [facility] AGE 65 yrs [facility] NON-AA GFR >60 mL/min [facility] ital AFR AMER GFR >60 mL/min [facility] Male GFR In terprentation 20-49 yrs >60 mL/min Normal 50-59 yrs >56 mL/min Normal 60-69 yrs >49 mL/min Normal 70-79yrs >42 mL/min Normal 80 and above >35 mL/min Normal Female GFR Interpretation 20-39 yrs >60 mL/min Normal 40-49 yrs >58 mL/min Normal 50-59 yrs >51 mL/min Normal 60-69 yrs >45 mL/min Normal 70-79 yrs >39 mL/min Normal 80 and above >32 mL/min Normal ID Date Data Source [id number] 02/03/2020 06:04:00 AM EDT [facility] Name Value Range Interpretation Code Description Data Raquel rce(s) Supporting Document(s) CBC W/AUTOMATED DIFF [facility] COMPLETE BLOOD COUNT Leukocytes [#/volume] in Blood by Automated count 6.2 10^3/uL 4.2 - 1 1.0 [facility] Erythrocytes [#/volume] in Blood by Automated count 3.76 10^6/uL 4. 50 - 6.30 L [facility] Hemoglobin [Mass/volume] in Blood 11.3 g/dL 14.0 - 16.0 L [facility] Hematocrit [Volume Fraction] of Blood by Automated count 33.0 % 4 1.0 - 51.0 L [facility] Erythrocyte mean corpuscular volume [Entitic volume] by Auto mated count 87.8 fL 80.0 - 94.0 [facility] Erythrocyte mean corpuscular hemoglobin [Entitic mass] by Automated count 30.1 pg 27.0 - 34.0 [facility] Erythrocyte mean corpuscular hemoglobin concentration [Mass/volume] by Automated count 34.2 g/dL 31.0 - 36.0 [facility] Erythrocyte distribution width [Ratio] by Automated count 13.3 % 11.5 - 14.8 [facility] Platelets [#/volume] in Blood by Automated count 221 10^3/uL 150 - 45 0 [facility] Platelet mean volume [Entitic volume] in Blood by Automated count 9.9 fL 7.4 - 10.4 [facility] Neutrophils/100 leukocytes in Blood by Automated count 33.3 % 37. 0 - 80.0 L [facility] Lymphocytes/100 leukocytes in Blood by Manual count 58.5 % 25.0 - 40.0 H [facility] Monocytes/100 leukocytes in Blood by Automated count 6.3 % 3.0 - 8.0 [facility] Eosinophils/100 leukocytes in Blood by Automated count 1.1 % 0.0 - 7.0 [facility] Basophils/100 leukocytes in Blood by Automated count 0.6 % 0.0 - 2.0 [facility] %IG 0.2 % 0.0 - 0.0 [facility] %NRBC 0.0 % 0.0 - 0.0 [facility] al Neutrophils [#/volume] in Blood by Automated count 2.07 10^3/uL 2.00 - 6.90 [facility] Lymphocytes [#/volume] in Blood by Automated count 3.63 10^3/uL 0.60 - 3.40 H [facility] Monocytes [#/volume] in Blood by Automated count 0.39 10^3/uL 0.00 - 0.90 [facility] Eosinophils [#/volume] in Blood by Automated count 0.07 10^3/uL 0.00 - 0.70 [facility] Basophils [#/volume] in Blood by Automated count 0.04 10^3/uL 0.00 - 0.20 [facility] #IG 0.01 10^3/uL 0.00 - 0.10 [facility] #NRBC 0.00 10^3/uL 0.00 - 0.00 [facility] ospital MANUAL DIFF NOT INDICATED [facility] RBC MORPH NOT INDICATED [facility] ID Date Data Source [id number] 02/03/2020 04:49:00 AM EDT [facility] Name Value Range Interpretation Code Description Data Raquel rce(s) Supporting Document(s) TROPONIN T <0.01 NG/ML 0.00 - 0.10 [facility]ital TROPONIN T0.1 ng/ml Recommended as the c linical threshold value forTroponin T. ID Date Data Source [id number] 02/02/2020 10:01:00 PM EDT [facility] Name Value Range Interpretation Code Description Data Raquel rce(s) Supporting Document(s) [facility] SOURCE R [facility] COLOR yellow NORMAL: Yellow [facility] CLARITY clear NORMAL: Clear [facility] spital Specific gravity of Urine by Test strip 1.010 1.001 - 1.030 [facility] pH 5 5 - 9 [facility] al Glucose [Mass/volume] in Urine by Test strip 1000 NORMAL: Negat [place] [facility] Bilirubin.total [Presence] in Urine by Test strip NEG NORMAL: Negative [facility] Ketones [Presence] in Urine by Test strip 5 NORMAL: Negative [facility] Protein [Mass/volume] in Urine by Test strip 15 NORMAL: Negat [place] [facility] Nitrite [Presence] in Urine by Test strip NEG NORMAL: Negative [facility] BLOOD NEG NORMAL: Negative [facility] Leukocyte esterase [Presence] in Urine by Test strip NEG SANDRA L: Negative [facility] Urobilinogen [Mass/volume] in Urine by Test strip NOR less jenniffer n 1.0 mg/dL [facility] MICROSCOPIC See Below [facility] ital WBC 0 - 1 NORMAL: NONE SEEN [facility] ID Date Data Source [id number] 02/02/2020 09:24:00 PM EDT [facility] Name Value Range Interpretation Code Description Data Raquel rce(s) Supporting Document(s) Magnesium [Mass/volume] in Serum or Plasma 2.1 MG/DL 1.7 - 2.2 [facility] ID Date Data Source [id number] 02/02/2020 09:24:00 PM T [facility] Name Value Range Interpretation Code Description Data Raquel rce(s) Supporting Document(s) Lipase [Enzymatic activity/volume] in Serum or Plasma 58 U/L 13 - 60 [facility] ID Date Data Source [id number] 02/02/2020 09:23:00 PM EDT [facility] Name Value Range Interpretation Code Description Data Raquel rce(s) Supporting Document(s) COMPREHENSIVE METABOLIC PANEL [facility] COMPREHENSIVE METABOLIC PANEL Sodium [Moles/volume] in Serum or Plasma 131 mEq/L 134 - 153 L [facility] Potassium [Moles/volume] in Serum or Plasma 3.8 mEq/L 3.6 - 5.0 [facility] Chloride [Moles/volume] in Serum or Plasma 92 mEq/L 98 - 107 L [facility] Carbon dioxide, total [Moles/volume] in Serum or Plasma 26 MEQ/L 22 - 30 [facility] Glucose [Mass/volume] in Serum or Plasma 443 MG/DL 65 - 110 HH [facility] CALL/ READ BACK MARTY IN ED [facility] BY: STEFFEN [facility] [facility] DATE/TIME [facility] BUN 12 MG/DL 7 - 21 [facility] Creatinine [Mass/volume] in Serum or Plasma 0.6 MG/DL 0.7 - 1.5 L [facility] BUN/CREAT 20 8 - 27 [facility] Protein [Mass/volume] in Serum or Plasma 7.9 G/DL 6.3 - 8.2 [facility] Albumin [Mass/volume] in Serum or Plasma 4.8 G/DL 3.9 - 5.0 [facility] Globulin [Mass/volume] in Serum by calculation 3.1 GM/DL 2.4 - 3.2 [facility] A/G RATIO 1.5 0.8 - 2.0 [facility] Calcium [Mass/volume] in Serum or Plasma 10.1 MG/DL 8.4 - 10.2 [facility] Bilirubin.total [Mass/volume] in Serum or Plasma <0.7 MG/DL 0.2 - 1.3 [facility] Alkaline phosphatase [Enzymatic activity/volume] in Serum or Plasma 91 U/L 38 - 126 [facility] Aspartate aminotransferase [Enzymatic activity/volume] in Serum or Plasma 15 U/L 5 - 40 [facility] Alanine aminotransferase [Enzymatic activity/volume] in Seru m or Plasma 22 U/L 7 - 56 [facility] Anion gap 3 in Serum or Plasma 13.0 mmol/L 8.0 - 16.0 [facility] AGE 65 yrs [facility] NON-AA GFR >60 mL/min [facility] ital AFR AMER GFR >60 mL/min [facility] Male GFR In terprentation 20-49 yrs >60 mL/min Normal 50-59 yrs >56 mL/min Normal 60-69 yrs >49 mL/min Normal 70-79yrs >42 mL/min Normal 80 and above >35 mL/min Normal Female GFR Interpretation 20-39 yrs >60 mL/min Normal 40-49 yrs >58 mL/min Normal 50-59 yrs >51 mL/min Normal 60-69 yrs >45 mL/min Normal 70-79 yrs >39 mL/min Normal 80 and above >32 mL/min Normal ID Date Data Source [id number] 02/02/2020 09:22:00 PM EDT [facility] Name Value Range Interpretation Code Description Data Raquel rce(s) Supporting Document(s) BNP 160 PG/ML 0 - 125 H [facility] ID Date Data Source [id number] 02/02/2020 08:54:00 PM EDT [facility] Name Value Range Interpretation Code Description Data Raquel rce(s) Supporting Document(s) TROPONIN T <0.01 NG/ML 0.00 - 0.10 [facility] ospital TROPONIN T0.1 ng/ml Recommended as the c linical threshold value forTroponin T. ID Date Data Source [id number] 02/02/2020 08:33:00 PM EDT [facility] Name Value Range Interpretation Code Description Data Raquel rce(s) Supporting Document(s) CBC W/AUTOMATED DIFF [facility] COMPLETE BLOOD COUNT Leukocytes [#/volume] in Blood by Automated count 10.5 10^3/uL 4.2 - 11.0 [facility] Erythrocytes [#/volume] in Blood by Automated count 4.57 10^6/uL 4. 50 - 6.30 [facility] Hemoglobin [Mass/volume] in Blood 14.2 g/dL 14.0 - 16.0 [facility] Hematocrit [Volume Fraction] of Blood by Automated count 39.6 % 4 1.0 - 51.0 L [facility] Erythrocyte mean corpuscular volume [Entitic volume] by Auto mated count 86.7 fL 80.0 - 94.0 [facility] Erythrocyte mean corpuscular hemoglobin [Entitic mass] by Automated count 31.1 pg 27.0 - 34.0 [facility] Erythrocyte mean corpuscular hemoglobin concentration [Mass/volume] by Automated count 35.9 g/dL 31.0 - 36.0 [facility] Erythrocyte distribution width [Ratio] by Automated count 13.4 % 11.5 - 14.8 [facility] Platelets [#/volume] in Blood by Automated count 265 10^3/uL 150 - 45 0 [facility] Platelet mean volume [Entitic volume] in Blood by Automated count 9.7 fL 7.4 - 10.4 [facility] Neutrophils/100 leukocytes in Blood by Automated count 48.9 % 37. 0 - 80.0 [facility] Lymphocytes/100 leukocytes in Blood by Manual count 42.0 % 25.0 - 40.0 H [facility] Monocytes/100 leukocytes in Blood by Automated count 7.8 % 3.0 - 8.0 [facility] Eosinophils/100 leukocytes in Blood by Automated count 0.4 % 0.0 - 7.0 [facility] Basophils/100 leukocytes in Blood by Automated count 0.6 % 0.0 - 2.0 [facility] %IG 0.3 % 0.0 - 0.0 H [facility] %NRBC 0.0 % 0.0 - 0.0 [facility] [#/volume] in Blood by Automated count 5.14 10^3/uL 2.00 - 6.90 [facility] Lymphocytes [#/volume] in Blood by Automated count 4.41 10^3/uL 0.60 - 3.40 H [facility] Monocytes [#/volume] in Blood by Automated count 0.82 10^3/uL 0.00 - 0.90 [facility] Eosinophils [#/volume] in Blood by Automated count 0.04 10^3/uL 0.00 - 0.70 [facility] Basophils [#/volume] in Blood by Automated count 0.06 10^3/uL 0.00 - 0.20 [facility] #IG 0.03 10^3/uL 0.00 - 0.10 [facility] #NRBC 0.00 10^3/uL 0.00 - 0.00 [facility] MANUAL DIFF NOT INDICATED [facility] RBC MORPH NOT INDICATED [facility] spital ID Date Data Source [id number] 01/07/2020 07:39:00 [place] [address] RESPIRATORY CARE REPORT ==== ---------NAME------- NUMBER SEX AGE ADMIT DISC. XRAY# F/C AUTUMN Garcia [id number] M 64 01/06/20 01/06/20 [id number] MB4 E/R DATE OF : 1955 M/R# [id number] #: [id number] TR-02 LOCATION: EMERGENCY DEPT [facility] [id number] COMP LETE:01/07/20 07:15 [place] [id number] PHYSICIAN: WHITLEY OLMSTEAD Name Value Range Interpretation Code Description Data Raquel rce(s) Supporting Document(s) ID Date Data Source [id number] 01/07/2020 11:59:00 AM EDT [facility] [address] [place] [address] PHONE: [phone] FAX: [phone] Name .................. : DIMA Garcia Acct Number.................. : [id number] ROOM. ................. : TR- Number ................... : [id number] Stay type ............. : E/R Discharge Date......... ... : 01/06/20 Admit Date ......... : 01/06/20 Admit Phys .................... : WHITLEY OLMSTEAD Date of ....... : 1955 Family Phys ................... : TRU WATERMAN Phone .................. : [phone] Age ................................ : 64 Film# .................. .:[id number] Sex ................................. : M Unsigned transcriptions are preliminary reports and do not represent a medical or legal document CT THORAX W/O CONTRAST [id number] COMPLETE:01/06/20 20:50 BEM 10895 Reason(s): fall, rig ht rib injury CT OF THE CHEST WITHOUT CONTRAST: INDICATION: Fall. FINDINGS: The neck base is clear. The lungs demonstrate mild chronic interstitial changes and mild biapical emphysematous changes, right greater than left. The heart is normal in size. Severe coronary artery calcifications are noted. No lymphadenopathy. The visualized upper abdomen demonstrate multiple nonobstructive stones in the left kidney. There is an acute posterolateral 11th rib fracture on the right. IMPRESSION: No acute pulmonary process. Acute 11th right rib fracture. While performing the above CT examination, radiation dose reduction was accomplished utilizing automated exposure control, adjusting of the mA and kV based on the patient's body size and/or the use of imperative reconstructive techniques. CT dose: 372.7 mGycm Electronically Reviewed and Signed By Wenceslao Hudson M.D. , 01/07/20 11:59, [facility] Transcribe Initials: CHELLY , Transcribe Date: 01/06/20 21:35, Dictation Date: Page 1 of 2 [place] [address] PHONE: [phone] FAX: [phone] Name .................. : DIMA Garcia Acct Number.................. : [id number] ROOM. ................. : TR-02 Number ................... : [id number] Stay type ............. : E/R Discharge Date......... ... : 01/06/20 Admit Date ......... : 01/06/20 Admit Phys .................... : Andre OLMSTEAD Date of ....... : 1955 Family Phys ................... : TRU WATERMAN Phone .................. : [phone] Age ................................ : 64 Film# .................. .:[id number] Sex ................................. : M Unsigned transcriptions are preliminary reports and do not represent a medical or legal document CT THORAX W/O CONTRAST [id number] COMPLETE:01/06/20 20:50 BEM 95672 Reason(s): fall, right rib injury Copy for: EMERGENCY DEPT via modem Copy f or: 710 MED REC DISCHARGED Page 2 of 2 Name Value Range Interpretation Code Description Data Raquel rce(s) Supporting Document(s) ID Date Data Source [id number] 01/06/2020 07:17:00 PM EDT [facility] 1 OrderSheet [facility] Emergency Department [address] [place] [address] Phone #: ext- [phone] 01/06/2020 19:14 Patient: DONNY FAITH Sex: M : 1955 Age: 64yWEIGHT:72.5 kg (S) HEIGHT:68 inches (S) BMI:24.3ALLERGIES: Benadryl, Muse, Motrin, Paxil, Penicillins, ThorazineCHIEF COMPLAINT: became dizzy, carpet, walkingDIAGNOSIS: Fall, Fracture of ribLAB ORDERSOrder Description Priority Entered Acknowledged InitialedCBC w Diff STAT 19:30 01/06/2020 19:31 Whitley Batista Riccardo Sarah R.N. M.D.;CMP STAT 19:30 01/06/2020 19:31 Whitley Batista Riccardo Sarah R.N. M.D.;PT/PTT STAT 19:30 01/06/2020 19:31 Whitley Batista Riccardo Sarah R.N. M.D.;Troponin-T STAT 19:30 01/06/2020 19:31 Whitley Batista Riccardo Sarah R.N. M.D.;CPK STAT 19:30 01/06/2020 19:31 Whitley Batista Riccardo Sarah R.N. M.D.;DIAGNOSTIC STUDY ORDERSOrder Description Priority Entered Acknowledged InitialedCT Chest W/O Cont STAT 19:01/06/2020 19:38 Sorbero,(Oxygen?(No)) Denver Arreaga R.N., M.D.; Reason for Study: fall, right rib injuryMEDICATION/IV/DRIP/FLUID ORDERSOrder Description Priority Entered Acknowledged InitialedGENERAL ORDERSOrder Description Priority Entered Acknowledged InitialedEKG 19:28 01/06/2020 19:28 Kenny ED Denver Arreaga Tiffany ER M.D.; Tech1 2 OrderSheet [facility] Emergency Department [address] [place] [address] Phone #: ext- [phone] 01/06/2020 19:14 Patient: DONNY FAITH Sex: M : 1955 Age: 64y[Electronically signed by Denver Arreaga M.D. (00:30 01/07/2020)][Electronically signed by Brandy Batista R.N. (01:52 01/07/2020)][Electronically locked by Brandy Batista R.N. (01:52 01/07/2020)] Name Value Range Interpretation Code Description Data Raquel rce(s) Supporting Document(s) ID Date Data Source [id number] 01/06/2020 07:17:00 PM EDT [facility] 1 Medication Reconciliation Report [facility] Emergency Department [address] [place] [address] Phone #: ext- [phone] 01/06/2020 19:14 Patient: DONNY FAITH Sex: M : 1955 Age: 64yWeight: 72.5 kgHeight/Length: 68 in.BMI: 24.3ALLERGIES: Benadryl, Muse, Motrin, Paxil, Penicillins, ThorazineThe patient's Home Medications are listed below:CONTINUE TAKING THE FOLLOWING MEDICATIONS: Advair Diskus Inhalation (500-50 mcg/dose) 1 inhalation, 2x a day Advocate Insulin Pen Granby Aspir-81 Oral (81 mg) 1 tablet, daily Basaglar 20 unita, at bedtime [facility] Claritin Oral (5 mg) 1 tablet, daily, at bedtime Crestor Oral (5 mg) 1 tablet, daily, at bedtime Dilantin Oral DiltiaZEM HCl ER Coated Beads Oral (240 mg) 1 capsule, daily Eliquis Oral (5 mg) 1 tablet, 2x a day Flexeril Oral 10 mg, 3x a day Gabapentin Oral (300 mg) 1 capsule, 3x a day Glimepiride Oral (4 mg) 1-1/2 tablets, 2x a day Incruse Ellipta Inhalation Keppra Oral (1000 mg) 1 tablet, 2x a day 2 Medication Reconciliation Report [facility] Emergency Department [address] [place] [address] Phone #: ext- [phone] 01/06/2020 19:14 --------- Patient: DONNY FAITH Sex: M : 1955 Age: 64y NexIUM Oral 40 mg, daily ProAir HFA Inhalation PROzac Oral 10 mg, daily Ramipril Oral (1.25 mg) 1 capsule, daily Topamax Oral (100 mg) 1 tablet, 2x a day TraZODone HCl Oral 100 mg, daily, at bedtime Tylenol with Codeine #3 Oral, 2x a day Ventolin HFA Inhalation 2 puffs, q8h, sob, prn Z pack 1 tab day pt on day 3The source(s) of the original Home Medication information:Not obtained.The following Medications were given to the patient in the Emergency Department:None.The following Medications were prescribed to the patient:None. Name Value Range Interpretation Code Description Data [facility](s) Supporting Document(s) ID Date Data Source [id number] 01/06/2020 07:17:00 PM EDT [place] [address] Medication Administration Record [facility] Emergency Department [address] [place] [address] Phone #: ext- [phone] 01/06/2020 19:14 Patient: DONNY FAITH Sex: M : 1955 Age: 64yWeight: 72.5 kgHeight/Length: 68 inBMI: 24.3ALLERGIES: Benadryl, Muse, Motrin, Paxil, Penicillins, ThorazineDate/Time Medication Administered Medication Ordered Name Value Range Interpretation Code Description Data Raquel e(s) Supporting Document(s) ID Date Data Source [id number] 01/06/2020 07:17:00 PM EDT [facility] 1 General Instructions [facility] Emergency Department [address] [place] [address] Phone #: ext- [phone] 01/06/2020 19:14 Patient: DONNY FAITH Sex: M : 1955 Age: 64y Single right rib fracture (new vs recent). Fall on the same level by stumbling.INSTRUCTIONS Apply ice for 30 minutes four times a day for two days followed by moist heat 30 minutes four times a day for five days. Don't apply ice directly to skin, don't use while asleep and don't use high setting on heating pad. Warnings: GENERAL WARNINGS: Return or contact your physician immediately if your condition worsens or changes unexpectedly, if not improving as expected, or if other problems arise. SPECIFICALLY, return if you develop weakness of the foot, arm or leg, numbness, tingling, pain or incontinence of feces (loss of bowel control) or urine (loss of bladder control). Your Current Medications: Your current home medications have been reviewed. CONTINUE TAKING THE FOLLOWING MEDICATIONS: Advair Diskus Inhalation : Aerosol Powder Breath Activated 500-50 mcg/dose, 1 inhalation 2x a day. Advocate Insulin Pen Granby*. Aspir-81 Oral : Tablet Delayed Release 81 mg, 1 tablet daily. Basaglar* : 20 unita, at bedtime. [facility] : [place]. Claritin Oral : Tablet Chewable 5 mg, 1 tablet daily, at bedtime. Crestor Oral : Tablet 5 mg, 1 tablet daily, at bedtime. Dilantin Oral. DiltiaZEM HCl ER Coated Beads Oral : Capsule Extended Release 24 Hour 240 mg, 1 capsule daily. Eliquis Oral : Tablet 5 mg, 1 tablet 2x a day. Flexeril Oral : 10 mg 3x a day. Gabapentin Oral : Capsule 300 mg, 1 capsule 3x a day. Glimepiride Oral : Tablet 4 mg, 1-1/2 tablets 2x a day. Incruse Ellipta Inhalation. Keppra Oral : Tablet 1000 mg, 1 tablet 2x a day. NexIUM Oral : 40 mg daily. ProAir HFA Inhalation. PROzac Oral : 10 mg daily. Ramipril Oral : Capsule 1.25 mg, 1 capsule daily. Topamax Oral : Tablet 100 mg, 1 tablet 2x a day. TraZODone HCl Oral : 100 mg daily, at bedtime. Tylenol with Codeine #3 Oral : 2x a day. 2 General Instructions [facility] Emergency Department [address] [place] [address] Phone #: ext- [phone] 01/06/2020 19:14 Patient: DONNY FAITH Sex: M : 1955 Age: 64y Ventolin HFA Inhalation : 2 puffs q8h, prn, sob. Z pack 1 tab day pt on day 3*. Follow-up: Return to the emergency department as needed. Follow up with your healthcare provider in three days even if well. Call for an appointment. Reason for referral: evaluation and treatment. Summary of care provided to patient via paper. Understanding of the discharge instructions verbalized by patient. Expected course of injury, discharge instructions, activity level, diet, follow- up appointment and risks and benefits of treatment reviewed with patient and understanding verbalized. Agrees to plan of care. ADDITIONAL INFORMATIONMechanical FallYou have had a fall today. It appears that the cause is what is called mechanical. That means thatyou slipped, tripped, or lost your balance. If your fall had been because of fainting or a seizure, youmight need other tests.It is normal to feel sore and tight in your muscles and back the next day, and not just the muscles youinjured at first. Remember, all the parts of your body are connected, so while initially one area hurts,the next day another may hurt. Also, when you injure yourself, it causes inflammation, which thencauses the muscles to tighten up and hurt more. After the initial worsening, it should graduallyimprove over the 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 Do report more severe pain.Even without a definite head injury, you can still get a concussion from your head suddenly jerkingforward, backward, or sideways when falling. Concussions and even bleeding can still happen,especially if you have had a recent injury or take blood thinner medicine. It is not unusual to have amild headache and feel tired and even nauseous or dizzy.Home care Rest today and go back to your normal activities when you are feeling back to normal. If you were injured during the fall, follow the advice from your healthcare provider regarding care of your injury. At first, do not try to stretch out the sore spots. If there is a strain, stretching may make it worse. Massage may help relax the muscles without stretching them. You can use an ice pack or cold compress on and off to the sore spots 10 to 20 minutes at a time, as often as you feel comfortable. This may help reduce the inflammation, swelling and pain. 3 General Instructions [facility] Emergency Department [address] [place] [address] Phone #: ext- [phone] 01/06/2020 19:14 Patient: DONNY FAITH Sex: M : 1955 Age: 64y If you have any scrapes or abrasions, they usually heal within 10 days. It is important to keep the abrasions clean while they initially start to heal. However, an infection may happen even with proper care, so watch for early signs of infection (such as warmth, redness, or swelling).Medicines Talk to your healthcare provider before taking new medicines, especially if you have other medical problems or are taking other medicines. If you need anything for pain, you can take acetaminophen or ibuprofen, unless you were given a different pain medicine to use. Talk with your healthcare provider before using these medicines if you have chronic liver or kidney disease, or ever had a stomach ulcer or gastrointestinal bleeding, or are taking blood thinner medicines. Be careful if you are given prescription pain medicines, narcotics, or medicine for muscle spasm. They can make you sleepy and dizzy, and can affect your coordination, reflexes, and judgment. Do not drive or do work where you can injure yourself when taking them.Fall prevention Fix, remove, or replace anything that caused your fall. Make your home safe by keeping walkways clear of objects you may trip over. Use nonslip pads under rugs. Don't use small area rugs or throw rugs. Don't walk in poorly lit areas. Don't stand on chairs or wobbly ladders. Use caution when reaching overhead or looking upward. This position can cause a loss of balance. Be sure your shoes fit properly, have nonslip bottoms and are in good condition. Be cautious when going up and down curbs, and walking on uneven sidewalks. If your balance is poor, consider using a cane or walker. Stay as active as you can. Balance, flexibility, strength, and endurance all come from exercise. They all play a role in preventing falls. If you have pets, know where they are before you stand up or walk so you don't trip over them. Limit alcohol intake. Alcohol can cause balance problems and increase the risk of falls. Use night lights. 4 General Instructions [facility] Emergency Department [address] [place] [address] Phone #: ext- [phone] 01/06/2020 19:14 Patient: DONNY FAITH Sex: M : 1955 Age: 64y Have your eyes tested to be sure you are seeing well, even if you already wear glasses.Follow-upFollow up with your healthcare provider, or as advised. If X-rays or CT scans were done, you will benotified if there is a change in the reading, especially if it affects treatment.Call [phone] if any of these happen: Trouble breathing Confused or difficulty arousing Fainting or loss of consciousness Rapid or very slow heart rate Seizure Difficulty with speech or vision, weakness of an arm or leg Difficulty walking or talking, loss of balance, numbness or weakness in one side of your body, or facial droopWhen to seek medical adviceCall your healthcare provider right away if any of these happen: Repeated mechanical falls, or unexplained falls Dizziness Severe headache Blood in vomit, stools (black or red color) [id number] [employer]. [address] [place] [address]. All rights reserved. This information is not intended as asubstitute for professional medical care. Always follow your healthcare professional's instructions.Rib Fracture 5 General Instructions [facility] Emergency Department [address] [place] [address] Phone #: ext- [phone] 01/06/2020 19:14 Patient: DONNY FAITH Sex: M : 1955 Age: 64yYou broke one or more ribs. This is called a rib fracture. Rib fractures don't need a cast like otherbones. They will heal by themselves in about 4 to 6 weeks. The first 3 to 4 weeks will be the mostpainful. During this time deep breathing, coughing, or changing position from sitting to lying down,may cause the broken ends to move slightly.Home care Rest. You should not be doing any heavy lifting or strenuous exertion until the pain goes away. It hurts to breathe when you have a broken rib. This puts you at risk of getting pneumonia from poor airflow through your lungs. To prevent this: o Take several very deep breaths once an hour while you're awake. Breathe out through pursed lips as if you are blowing up a balloon. If possible, actually blow up a balloon or a rubber glove. This exercise builds up pressure inside the lung and prevents collapse of the small air sacs of the lung. This exercise may cause some pain at the site of injury. This is normal. o You may have gotten a breathing exercise device called an incentive spirometer. Use it at least 4 times a day, or as directed. Apply an ice pack over the injured area for 15 to 20 minutes every 1 to 2 hours. You should do this for the first 24 to 48 hours. To make an ice pack, put ice cubes in a plastic bag that seals at the top. Wrap the bag in a clean, thin towel or cloth. Never put ice or an ice pack directly on the skin. Keep using ice packs as needed for the relief of pain and swelling. You may use [id number] pain medicine to control pain, unless another pain medicine 6 General Instructions [facility] Emergency Department [address] [place] [address] Phone #: ext- [phone] 01/06/2020 19:14 Patient: DONNY FAITH Sex: M : 1955 Age: 64y was prescribed. If you have chronic liver or kidney disease or ever had a stomach ulcer or GI (gastrointestinal) bleeding, talk with your healthcare provider before using these medicines. If your pain is not controlled, contact your healthcare provider. Sometimes a stronger pain medicine may be needed. A nerve block can be done in case of severe pain. It will numb the nerve between the ribs.Follow-up careFollow up with your healthcare provider, or as advised. In rare cases, a broken rib will causecomplications in the first few days that may not be clearly seen during your initial exam. This caninclude collapsed lung, bleeding around the lung or into the belly (abdomen), or pneumonia. So watchfor the signs below.If X-rays were taken, you will be told of any new findings that may affect your care.Call [phone] if you have: Dizziness, weakness or fainting Shortness of breath with or without chest discomfort New or worsening abdominal pain Discomfort in other areas of your upper body such as your shoulders, jaw, neck, or armsWhen to seek medical adviceCall your healthcare provider right away if any of these occur: Increasing chest pain with breathing Fever of 100.4F (38C) or above, or as directed by your healthcare provider Congested cough, nausea, or vomiting [id number] [employer]. [address] [place] [address], [place] [address]. All rights reserved. This information is not intended as asubstitute for professional medical care. Always follow your healthcare professional's instructions. You have been given the following additional information: Mechanical Fall Rib Fracture 7 General Instructions [facility] Emergency Department [address] [place] [address] Phone #: ext- [phone] 01/06/2020 19:14 Patient: DONNY FAITH Sex: M : 1955 Age: 64y(Electronically signed by Denver Arreaga M.D. 01/07/2020 00:30) Name Value Range Interpretation Code Description Data Raquel rce(s) Supporting Document(s) ID Date Data Source [id number] 01/06/2020 07:17:00 PM EDT [facility] 1 Clinical Report - Nurses [facility] Emergency Department [address] [place] [address] Phone #: ext- [phone] 01/06/2020 19:14 Patient: DONNY FAITH Sex: M : 1955 Age: 64yTRIAGE Arrived by EMS. Historian: patient. Unaccompanied. Acuity: LEVEL 3. Chief Complaint: FALL: Alert. No acute distress. This occurred (couple hours ago). ( Pt reports he was walking around in his room when he got dizzy and fell. Pt denies LOC or hitting head. Pt is A. Pt reports he hit his right side ribs. No redness or deformity noted.). Treatment CAFE ASSOCIATE: None. SEPSIS SCREEN: Sepsis Screen negative. No suspected or confirmed signs of infection present. --19:20 01/06/20 Cecilia Philip R.N. 19:15 01/06/20. BP: 130/85. MAP: 100. HR: 88. RR: 17. O2 saturation: 96%. Temp: 98.4 F. Pain level now: 01/22. --19:20 01/06/20 Cecilia Philip R.N. Weight: 72.5 kg stated. Height/Length: 68 inches Per Patient. BMI: 24.3. --19:01/06/20 Cecilia Philip R.N. Medications Advair Diskus Inhalation (Aerosol Powder Breath Activated 500-50 mcg/dose) 1 inhalation, 2x a day. Advocate Insulin Pen [place]. Aspir-81 Oral (Tablet Delayed Release 81 mg) 1 tablet, daily. Basaglar 20 unita, at bedtime. [facility]. Claritin Oral (Tablet Chewable 5 mg) 1 tablet, daily at bedtime. Crestor Oral (Tablet 5 mg) 1 tablet, daily at bedtime. Dilantin Oral. DiltiaZEM HCl ER Coated Beads Oral (Capsule Extended Release 24 Hour 240 mg) 1 capsule, daily. Eliquis Oral (Tablet 5 mg) 1 tablet, 2x a day. Flexeril Oral 10 mg, 3x a day. Gabapentin Oral (Capsule 300 mg) 1 capsule, 3x a day. Glimepiride Oral (Tablet 4 mg) 1-1/2 tablets, 2x a day. Incruse Ellipta Inhalation. Keppra Oral (Tablet 1000 mg) 1 tablet, 2x a day. NexIUM Oral 40 mg, daily. ProAir HFA Inhalation. 2 Clinical Report - Nurses [facility] Emergency Department [address] [place] [address], [place] [address] Phone #: ext- [phone] 01/06/2020 19:14 Patient: DONNY FAITH Sex: M : 1955 Age: 64yPROzac Oral 10 mg, daily.Ramipril Oral (Capsule 1.25 mg) 1 capsule, daily.Topamax Oral (Tablet 100 mg) 1 tablet, 2x a day.TraZODone HCl Oral 100 mg, daily at bedtime.Tylenol with Codeine #3 Oral, 2x a day.Ventolin HFA Inhalation 2 puffs, q8h as needed, sob.Z pack 1 tab day pt on day 3. --19:01/06/20 Cecilia Philip R.N.AllergiesBenadryl.Muse.Motrin.Paxil.Penicillins.Thorazine. --01/06/20 Cecilia Philip R.N.The following entry was struck by Denver Arreaga M.D., 20:49 (01/06/20) Reason - wrong value.Acetaminophen. --01/06/20 Cecilia Philip R.N. .PROBLEMS:Dementia.CVA - Cerebrovascular Accident.Diabetes Mellitus Type 2.Diabetes Mellitus.Emphysema.COPD - Chronic Obstructive Pulmonary Disease.Bleeding Ulcer.Asthma.Arrhythmia.Chest Wall Pain.Chest Pain.Bronchitis.Seizure.Rib Fracture.Parkinson's Disease.Syncope.Sprain.Sleep Apnea.Hypertension.Hypercholesterolemia.Heart Disease.Neck Pain.NE.Lung Disease. --01/06/20 Cecilia Philip R.N. 3 Clinical Report - Nurses [facility] Emergency Department [address] [place] [address] Phone #: ext- [phone] 01/06/2020 19:14 Patient: DONNY FAITH Sex: M : 1955 Age: 64y Sinusitis: Resolved. Lower Extremity Pain: Resolved. Upper Extremity Pain: Resolved. --19:20 9/23/20 Cecilia Philip R.N. ADDITIONAL SURGERIES: Appendectomy. Cholecystectomy. --01/06/20 Cecilia Philip R.N. History PAST MEDICAL HX: Immunizations: up-to-date. SOCIAL HX: Heavy tobacco smoker (cigarette)- more than 2 packs per day. History of drug use: marijuana. ("pot for chronic pain"). No alcohol use. The patient was offered HIV testing but declined. Patient education was provided. The patient was offered hepatitis C testing but declined. Patient education was provided. The patient has not traveled outside the [place] Infectious disease exposure: No infectious disease exposure. Patient is not a known carrier of tuberculosis, hepatitis, HIV, MRSA or VRE. Patient is not a known carrier of CRE. SELF HARM ASSESSMENT: Self harm assessment was performed. The patient answered "no" to the question(s) "Have you recently felt down, depressed, or hopeless?", "Do you have thoughts of harming or killing yourself?" and "Do you have a plan for harming or killing yourself?". ABUSE ASSESSMENT: Abuse assessment. The patient had positive responses to the question(s) "Do you feel safe in your home?", "Are you afraid to go home?" and "Has anyone hurt you or threatened to hurt you?". Abuse denied. NUTRITIONAL RISK ASSESSMENT: The nutritional risk assessment revealed no deficiencies. FUNCTIONAL ASSESSMENT: Functional assessment: no impairments noted. LEARNING NEEDS ASSESSMENT: The learning needs assessment revealed no barriers. FALL RISK ASSESSMENT: Fall risk assessment completed. Risk factors identified include patient history of fall. Fall interventions initiated. Patient placed on stretcher. Side rails up x2. Bed in low position. Brakes on. Patient visible from nurses' station. SKIN INTEGRITY ASSESSMENT: Skin integrity risk assessment completed. No skin integrity risk identified. --01/06/20 Cecilia Philip R.N. Interventions Identification band on patient. To treatment room. --01/06/20 Cecilia Philip R.N.NURSING PROGRESS NOTES 19:21 01/06/2020 Site #1 started prior to arrival by EMS via IV in the left antecubital space with an 20g angiocath, with aseptic technique; one attempt. Saline lock flushed with 10 mL saline. --19:21 01/06/20 4 Clinical Report - Nurses [facility] Emergency Department [address] [place] [address] Phone #: ext- [phone] 01/06/2020 19:14 Patient: DONNY FAITH Sex: M : 1955 Age: 64y Cecilia Philip R.N. Cardiac rhythm: normal sinus rhythm; sinus block; 1st degree AV block. EKG time: (19:18 01/06/2020). EKG was performed by a tech and shown to the ED physician. Patient gowned. Reassurance given. Two patient identifiers checked. Call light placed in reach. Side rails up x 2. Bed placed in lowest position. Brakes of bed on. --19:21 01/06/20 Cecilia Philip R.N. 19:29 01/06/20. BP: 116/78. MAP: 90. HR: 83. RR: 25. O2 saturation: 100%. --19:30 01/06/20 Grace centrifugal supervisor, Ivon, ER Tech1 20:27 01/06/20. BP: 122/82. MAP: 95. HR: 82. RR: 25. O2 saturation: 99%. --20:27 01/06/20 [facility] Tech, Ivon, ER Tech1 20:09 01/06/20. Reassurance given to the patient. The patient is resting quietly. ( patient given sandwich and drink.). --21:09 01/06/20 Brandy Batista R.N. 20:10 01/06/2020 Site #1 removed. Catheter intact. Bandage applied. --20:35 01/06/20 Anil Bahena R.N. 20:20 01/06/2020 Site #2 started via IV in the left antecubital space with an 20g angiocath, with aseptic technique and good blood return; two attempts. Blood drawn: rainbow set. Labeled in the presence of the patient and sent to the lab. Saline lock flushed with 10 mL saline. --20:35 01/06/20 Anil Bahena R.N.DISPOSITION / DISCHARGE Departure time: 21:07 01/06/2020. Condition at departure: improved. No learning barriers present. Discharge instructions provided and reviewed with the patient. Reviewed rest, ice, compression and elevation instructions. Patient verbalized understanding. Written instructions provided in Bahamian. The patient was discharged by the physician. He was discharged home and unaccompanied at time of discharge. He left ambulatory and via taxi. --21:11 01/06/20 Brandy Batista R.N. 21:09 01/06/20. BP: 127/83. HR: 84. RR: 16. O2 saturation: 98%. Temp: 98.0 F. Pain level now 0/10. --21:11 01/06/20 Brandy Batista R.N.Locked/Released at 01/07/2020 01:52 by Brandy Batista R.N. Name Value Range Interpretation Code Description Data Raquel rce(s) Supporting Document(s) ID Date Data Source [id number] 01/06/2020 07:17:00 PM EDT [facility] 1 Clinical Report - Physicians/Mid Levels [facility] Emergency Department [address] [place] [address] Phone #: ext- [phone] 01/06/2020 19:14 [id number] Sex[facility] M : 1955 Age: 64y Time Seen: 19:15 01/06/2020; initial patient contact. Arrived- By ambulance. Historian- patient. Disposition decision: 20:53 01/06/2020.HISTORY OF PRESENT ILLNESS Chief Complaint: FALL. Became dizzy; fell onto carpeted surface while walking Location of injuries- chest (right ribs). The injury occurred just prior to arrival. Fell: Occurred at home. ( hit rib ribs onto furniture; no head injury). The patient complains of mild pain. No blow to the head, neck pain, loss of consciousness or seizure. Not dazed. (pt well known to us for multiple ER visits for pain complaints).REVIEW OF SYSTEMS No numbness, dizziness, loss of vision, hearing loss or chest pain. No difficulty breathing, weakness, headache, nausea or abdominal pain. No laceration, fever, vomiting, urinary problems or depression. The patient has no pain on weight bearing. All other systems reviewed and are negative.PAST HISTORY See nurses notes. Tetanus immunization status is up-to-date. Problems: Dementia. CVA - Cerebrovascular Accident. Diabetes Mellitus Type 2. Diabetes Mellitus. Emphysema. COPD - Chronic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 Date Data Source [id number] 11/11/2019 02:48:00 PM EDT [facility] [address] [place] [address] [phone] NAME SEX PT STATUS ACCOUNT NUMBER DONNY FAIHT ADM IN [id number] ORDERING PHYSICIAN LOCATION MEDICAL RECORD NO. Enriquez AMMON Deng [id number] ATTENDING PHYSICIAN DATE OF DATE OF EXAM/TIME Adiel Ott MD 1955 11[birth year]/191433 TYPE / EXAM MRI Brain without contrast REASON FOR EXAM Questionable TIA COMPARISON: November 10, 2019 TECHNIQUE: Multisequence multiplanar MRI of the brain is obtained without the use of intravenous contrast. FINDINGS: Diffusion-weighted images demonstrate no acute infarction. GRE images reveal no abnormal magnetic susceptibility, arguing against intracranial hemorrhage. There is mild cerebral atrophy. Ventricular dilatation is somewhat out of proportion to the degree of volume loss. This raises the possibility of hydrocephalus. Clinical correlation advised. FLAIR images reveal a solitary focus of hyperintensity in the left deep parietal white matter (10:17). Otherwise, there is no significant parenchymal signal abnormality. There is no mass effect or midline shift. The craniocervical junction is imaged normally, and there is no gross skull base abnormality. Mucous retention cysts are seen in the maxillary sinuses, bilaterally. Several ethmoid air cells demonstrate mucoperiosteal thickening, as well. Mastoid air cells are essentially clear. The orbits are visualized normally IMPRESSION: 1. No acute infarction. 2. Solitary nonspecific focus of FLAIR hyperintensity, left deep parietal white matter. 3. No MR evidence of intracranial hemorrhage. 4. No mass effect or midline shift. Reported By Fred Queen MD on 11/11/19 1448 Signed By Fred Queen MD on 11/11/19 1455 Date Time CC: Fred Queen MD; Adiel Ott MD Techn: DORIS Trans Dt/Tm: Trans by: DT Prt Dt/Tm: : Total DLP = 0.00 mGy-cm : Total Radiation Dose = 0.0000 mSv Lifetime Dose: 0 mSv Name Value Range Interpretation Code Description Data Raquel rce(s) Supporting Document(s) ID Date Data Source [id number] 11/11/2019 01:56:00 PM EDT [facility] Therapy Department DONNY FAITH : 1955 [id number] Attending: Jaylon Baird MD OT Inpatient Evaluation - Therapy Evaluation OT Order Rec'd:: 11/11/19 Date Started:: 11/11/19 Time Started:: 13:31 Name: Jaylon Baird Diagnosis:: mariel rib fx, syncope Reason for Evaluation: New Admission Rehab Diagnosis:: difficulty with bed mobility, transfers and ADLs PMH and Social Hx. Reviewed per MD, Nursing, and ER Assess.: Yes - Subjective/History Subjective:: Pt is a 64 y/o male who presented from [facility] with bilateral rib fx secondary to a fall. Pt has a past medical history of afib, CHF, DMII, CVA, Dementia, COPD, HTN, and seizures. Pt states he fell getting out of bed and landed on his O2 concentrator. Pt states he is currently always on 3LO2 after fall however was only using O2 at night prior. Pt stating he is at 10/10 pain while laying in bed and that pain increases when moving. Pt states he cannot doff socks secondary to pain. Pt grimacing and expressing sounds of pain during bed mobility and transfers. Pt states he has a friend, Skyler, that helps a little. He states that he spends weekend with Skyler and that he sometimes is around when pt showers. Pt states he cannot move in with Skyler at this time. Pt to receive OT to increase independence with bed mobility, transfers and ADLs. Prior Level of Function:: Patient lives alone in [facility] apartments. Pt uses elevator to get upstairs in apartment building. Pt wearing 3L O2 only at night. Pt independent with ADLs and recieves some help with IADLs. Pt friend sometimes supervises during showering. Pt recieves MOW and uses microwave for other meals. Pt independent in laundry. Pt states hard for him to perform cleaning secondary to fatigue. Pt performs own shopping. Pt uses Nidia scooter for long distances and a 4WW for ambulating in his apartment. Type of Dwelling: Apartment Number of Floors: 3 Physical Barriers in Home Environment: Elevator Home Environment:: 3rd floor apartment, elevator - Objective Observations: Alert and oriented x 3 Objective: 3L O2 Fall risk - Transfer Sit<>Stand:: Contact Guard Assistance Bed<>Chair:: Contact Guard Assistance Sit<>Supine:: Minimal Assistance Supine<>Sit:: Minimal Assistance Bed Mobility:: Minimal Assistance - Ambulation Ambulation Assistance:: Contact Guard # Required to Assist:: 1 Assistive Device:: 4 Wheeled Walker Distance (ft):: 5 Stairs:: n/a - Hand Hand Dominance: Right - ADL's Upper Body Dressing Ability: Within Normal/Functional Limits for patient Lower Body Dressing Ability: Assistance Upper Body Bathing Ability: Within Normal/Functional Limits for patient Lower Body Bathing Ability: Assistance Feet Bathing Ability: Assistance Oral Care Ability: Within Normal/Functional Limits for patient Grooming Ability: Within Normal/Functional Limits for patient Toileting Ability: Assistance Eating (Feeding) Ability: Within Normal/Functional Limits for patient - IADL'S Laundry Ability: Assistance Meal Prep Ability: Assistance - Assessment/Recommendations Assessment: Pt is a 64 y/o who lives alone in an apartment. Pt experiencing 10/10 pain during session today. Pt grimacing and expressing sounds of pain during bed mobility and transfers. Pt unable to doff socks secondary to pain. Pt completing bed mobility with min A and 4ww and transferred from bed to transport chair with CGA. Pt in transfer chair to MRI with nurse upon exit. Pt to receive OT services to increase independence with bed mobility, transfers, and ADLs. Frequency: 5x Duration:: 1 week # Visits requested: 5 - Plan of Care Plan/instruction: Mobility/Safety, ADL's STG #1: Pt to perform supine to EOB and EOB to supine bed transfer with HOB flat and no use of bed rails with supervision in 5 visits. STG #2: Pt to perform LB dressing and bathing wtih AE PRN with supervision in 5 visits. STG #3: Pt to perform toileting and mack care with supervision in 5 visits. LTG #1: Pt to perform toilet transfer with 4ww with supervision in 5 visits. LTG #2: na LTG #3: na - End Date Ended:: 11/11/19 Time Ended:: 13:46 Elapsed Time (minutes): 15 Elapsed Time Minutes: 15 OT Education - Topic Education Handouts: Heart Failure (DC), COPD (Chronic Obstructive Pulmonary Disease) (DC) Therapist Cecilia Conrad PT Student 11/11/19 1356 <Electronically signed by Cecilia Conrad > 11/11/19 1435 Date Time Cosigner: Torrie Tejada 11/12/19 0701 Jaylon Baird MD 11/12/19 0959 <Electronically signed by Jaylon Baird MD> 11/12/19 0959 Date Time LAST EDIT: Name Value Range Interpretation Code Description Data Raquel rce(s) Supporting Document(s) ID Date Data Source [id number] 11/11/2019 11:48:00 AM EDT [facility] [address] [place] [address] PHONE: [phone] FAX: [phone] Name .................. : DIMA Garcia Acct Number.................. : [id number] ROOM. ................. : TR-08 MR Number ................... : [id number] Stay type ............. : E/R Discharge Date......... ... : 11/10/19 Admit Date ......... : 11/10/19 Admit Phys .................... : MITCHELL CHUN Date of ....... : 1955 Family Phys ................... : TRU WATERMAN Phone .................. : [phone] Age ................................ : 64 Film# .................. .:[id number] Sex ................................. : M Unsigned transcriptions are preliminary reports and do not represent a medical or legal document CT ABD & PELVIS W/ IV ONLY [id number] COMPLETE:11/10/19 15:11 [facility] [address] Reason(s): Tr auma/Injury CT SCAN OF THE ABDOMEN AND PELVIS WITH CONTRAST ENHANCEMENT: FINDINGS: There are bilateral lower posterolateral rib fractures noted. On the left side, it is adjacent to the spleen, but there are no definitive signs of any splenic or hepatic injury. 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 No definite fractures to the spine noted. The adrenals and kidneys fail to reveal any acute abnormalities. There is a nephrolith in the left kidney measuring about 1.1 cm, which is nonobstructive with a smaller one in the lower pole region of the left kidney measuring 5 mm. There is one posteriorly in the right kidney which measures 4 mm. The pancreas is within normal limits. The gallbladder has been removed. The bowel loops demonstrate a large amount of stool throughout the colon. The bladder is within normal limits. There are no signs of any definite pelvic fractures. No other significant findings. IMPRESSION: Right and left lower posterolateral rib fractures. No signs of any definite visceral injuries. No oth er significant findings noted other than nonobstructive bilateral renal calculi. While performing the above CT examination, radiation dose reduction was accomplished utilizing automated exposure control, adjusting of the mA and kV based on the patient's body size and/or the use of imperative reconstructive techniques. CT dose: 659.2 mGycm Contrast agent in mL: 75 Isovue 370 Method of administration: Intravenous Electronically Reviewed and Signed By [address] 2 [place] [address] PHONE: [phone] FAX: [phone] Name .................. : DIMA Garcia Acct Number.................. : [id number] ROOM. ................. : TR-08 Number ................... : [id number] Stay type ............. : E/R Discharge Date......... ... : 11/10/19 Admit Date ......... : 11/10/19 Admit Phys .................... : MITCHELL CHUN Date of ....... : 1955 Family Phys ................... : TRU WATERMAN Phone .................. : [phone] Age ................................ : 64 Film# .................. .:[id number] Sex ................................. : M Unsigned transcriptions are preliminary reports and do not represent a medical or legal document CT ABD & PELVIS W/ IV ONLY [id number] COMPLETE:11/10/19 15:11 [facility] [address] Reason(s): Trauma/Injury DERREK PHAN MD , 11/11/19 11:48, M Transcribe Initials: DZ , Transcribe Date: 11/11/19 00:41, Dictation Date: Copy for: YOHAN HOLT via fax Copy for: MITCHELL Kaiser via fax Copy for: EMERGENCY DEPT via modem Copy for: 710 MED REC DISCHARGED Page 2 of 2 Name Value Range Interpretation Code Description Data Raquel rce(s) Supporting Document(s) ID Date Data Source [id number] 11/11/2019 11:47:00 [place] [address] PHONE: [phone] FAX: [phone] Name .................. : DIMA Garcia Acct Number.................. : [id number] ROOM. ................. : TR-08 Number ................... : [id number] Stay type ............. : E/R Discharge Date......... ... : 11/10/19 Admit Date ......... : 07/28/20 Admit Phys .................... : MITCHELL CHUN Date of ....... : 1955 Family Phys ................... : TRU WATERMAN Phone .................. : [phone] Age ................................ : 64 Film# .................. .:[id number] Sex ................................. : M Unsigned transcriptions are preliminary reports and do not represent a medical or legal document CT HEAD W/O CONTRAST [id number] COMPLETE:11/10/19 15:11 [facility] [address] Reason (s): Syncope CT SCAN OF THE HEAD WITHOUT CONTRAST: INDICATION: Syncope. COMPARISON: Prior study from 12/16/18. FINDINGS: No intra-axial or extra-axial collections of fluid. Ventricles and sulci unremarkable. No midline shift or mass effect. Visualized paranasal sinuses and mastoid air cells unremarkable. There are retention cysts versus polyps in the bilateral maxillary sinuses, unchanged as compared to the prior study. IMPRESSION: No acute intracranial process. While performing the above CT examination, radiation dose reduction was accomplished utilizing automated exposure control, adjusting of the mA and kV based on the patient's body size and/or the use of imperative reconstructive techniques. CT dose: 855.5 mGycm Examination dictated by AMMON Bolaños. Examination was reviewed with Derrek Phan MD, radiologist at the time of this dictation. Electronically Reviewed and Signed By DERREK PHAN MD , 11/11/19 11:47, [facility] Page 1 of [address] [place] [address] PHONE: [phone] FAX: [phone] Name .................. : DIMA Garcia Acct Number.................. : [id number] ROOM. ................. : TR-08 MR Number ................... : [id number] Stay type ............. : E/R Discharge Date......... ... : 11/10/19 Admit Date ......... : 11/10/19 Admit Phys .................... : MITCHELL CHUN Date of ....... : 1955 Family Phys ................... : TRU WATERMAN Phone .................. : [phone] Age ................................ : 64 Film# .................. .:[id number] Sex ................................. : M Unsigned transcriptions are preliminary reports and do not represent a medical or legal document CT HEAD W/O CONTRAST 62824 COMPLETE:11/10/19 15:11 SRG [id number] Reason(s): Syncope Transcribe Initials: CHELLY , Transcribe Date: 11/11/19 05:24, Dictation Date: Copy for: YOHAN HOLT via fax Copy for: MITCHELL Kaiser via fax Copy for: EMERGENCY DEPT via modem Copy for: 710 MED REC DISCHARGED Page 2 of 2 Name Value Range Interpretation Code Description Data Raquel rce(s) Supporting Document(s) ID Date Data Source [id number] 11/11/2019 11:44:00 AM EDT [facility] [address] [address] PHONE: [phone] FAX: [phone] Name .................. : DIMA Garcia Acct Number.................. : [id number] ROOM. ................. : [address] Number ................... : [id number] Stay type ............. : E/R Discharge Date......... ... : 11/10/19 Admit Date ......... : 11/10/19 Admit Phys .................... : MITCHELL CHUN Date of ....... : 1955 Family Phys ................... : TRU WATERMAN Phone .................. : [phone] Age ................................ : 64 Film# .................. .:[id number] Sex ................................. : M Unsigned transcriptions are preliminary reports and do not represent a medical or legal document CT THORAX W/CONTRAST 98397 COMPLETE:11/10/19 15:11 [facility] [place] [facility] [address] Reason(s): L back/flank pain s/p syncope with ecchymosis CT OF THE THORAX WITHOUT CONTRAST ENHANCEMENT: FINDINGS: The thoracic inlet is within normal limits. The heart and mediastinum appear normal. There are changes of COPD noted. The lung forte demonstrate some mild interstitial changes. The heart and mediastinum are normal. The upper abdomen fails to reveal any definite abnormalities. There are right and left lower posterolateral rib fractures noted. CT of the abdomen is pending. IMPRESSION: Right and left posterolateral lower rib fractures. 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 COPD. No other significant findings. While performing the above CT examination, radiation dose reduction was accomplished utilizing automated exposure control, adjusting of the mA and kV based on the patient's body size and/or the use of imperative reconstructive techniques. CT dose: 408.4 mGycm Electronically Reviewed and Signed By DERREK PHAN MD , 11/11/19 11:44, [facility] Transcribe Initia ls: CHELLY , Transcribe Date: 11/11/19 00:39, Dictation Date: Copy for: YOHAN HOLT via fax Copy for: MITCHELL Kaiser via fax Copy for: EMERGENCY DEPT via modem Copy for: 710 MED REC DISCHARGED Page 1 of 1 Name Value Range Interpretation Code Description Data Raquel rce(s) Supporting Document(s) ID Date Data Source [id number] 11/11/2019 11:44:00 [place] [address] PHONE: [phone] FAX: [phone] Name .................. : DIMA DONNY A Acct Number.................. : [id number] ROOM. ................. : TR-08 Number ................... : [id number] Stay type ............. : E/R Discharge Date......... ... : 11/10/19 Admit Date ......... : 11/10/19 Admit Phys .................... : MITCHELL MCCOLLUM Date of ....... : 1955 Family Phys ................... : TRU WATERMAN Phone .................. : [phone] Age ................................ : 64 Film# .................. .:[id number] Sex ................................. : M Unsigned transcriptions are preliminary reports and do not represent a medical or legal document CT CERV SPINE W/O DAMIEN 73689 COMPLETE:11/10/19 15:11 SR [id number] Reason(s): syncope CT SCAN OF THE CERVICAL SPINE WITHOUT CONTRAST ENHANCEMENT: HISTORY: Syncope. FINDINGS: There are some prominent arthritic changes in the disc spaces and posterior articulations most notable at the C3-4 disc space level and then throughout the posterior articular surfaces. There is otherwise normal alignment and position of the bones with no intrinsic bony lesions or fractures identified. IMPRE SSION: DJD with no signs of fracture. While performing the above CT examination, radiation dose reduction was accomplished utilizing automated exposure control, adjusting of the mA and kV based on the patient's body size and/or the use of imperative reconstructive techniques. CT dose: 161.4 mGycm Electronically Reviewed and Signed By DERREK PHAN MD , 11/11/19 11:44, [facility] Transcribe Initials: CHELLY , Transcribe Date: 11/11/19 00:31, Dictation Date: Copy for: YOHAN HOLT via fax Copy for: MITCHELL Kaiser via fax Copy for: EMERGENCY DEPT via woodstockm Copy for: 710 MED REC DISCHARGED Page 1 of 1 Name Value Range Interpretation Code Description Data Raquel rce(s) Supporting Document(s) ID Date Data Source [id number] 11/11/2019 12:29:00 PM EDT [facility] Name Value Range Interpretation Code Description Data Raquel rce(s) Supporting Document(s) Digoxin [Mass/volume] in Serum or Plasma 0.5 ng/mL 0.8-2.0 Below low normal [facility] ID Date Data Source [id number] 11/11/2019 10:52:00 AM EDT [facility] [address] [place] [address] [phone] NAME SEX PT STATUS ACCOUNT NUMBER DONNY FAITH ADM IN [id number] ORDERING PHYSICIAN LOCATION MEDICAL RECORD NO. Enriquez AMMON Deng [id number] ATTENDING PHYSICIAN DATE OF DATE OF EXAM/TIME Adiel Ott MD 1955 11/11/191034 TYPE / EXAM US Echo complete REASON FOR EXAM syncope, fall, Afib, CHF DATE OF TEST: 11/11/19 REFERRING: Dr. Baird. MEASUREMENTS: Aortic root 3.0 cm, left atrium 3.3 cm, left ventricle in diastole 5.0 cm, left ventricle in systole 3.5 cm. FINDINGS: 1. Chamber sizes are normal. Aortic root size is normal. 2. Normal aortic, mitral and tricuspid valves. 3. Normal left ventricular size and function. The ejection fraction is 55%. 4. There is no pericardial effusion noted. COLOR FLOW AND SPECTRAL DOPPLER ANALYSIS: There is trace mitral and tricuspid insufficiency. CONCLUSION: 1. Normal left ventricular function. 2. Trace mitral and tricuspid insufficiency. Reported By Gulshan Grigsby MD on 11/11/19 1052 Signed By Gulshan Grigsby MD on 11/11/19 1810 <<Signature on File>> Date Time CC: Gulshan Grigsby M.D.; Adiel Ott MD Techn: [id number] Trans Dt/Tm: 11/11/19 1126 Trans by: MIGUEL Prt Dt/Tm: 2309: Total DLP = 0.00 mGy-cm : Total Radiation Dose = 0.0000 mSv Lifetime Dose: 0 mSv Name Value Range Interpretation Code Description Data Raquel rce(s) Supporting Document(s) ID Date Data Source [id number] 11/11/2019 10:36:00 AM EDT [place] [address] [place] [address] [phone] NAME SEX PT STATUS ACCOUNT NUMBER DONNY FAITH ADM IN [id number] ORDERING PHYSICIAN LOCATION MEDICAL RECORD NO. Mina Deng [id number] ATTENDING PHYSICIAN DATE OF DATE OF EXAM/TIME Doctor Provided,No Family 1955 11/11/19 / 1030 TYPE / EXAM Xray Chest 2 view PA/LAT REASON FOR EXAM b/l lower rib fractures. to rule out hemo/pleural COMPARISON: None FINDINGS: Precordial leads overlie the chest. The cardiomediastinal silhouette is within normal limits. Lungs are essentially clear, without evidence of focal consolidation, pleural effusion, or pulmonary vascular congestion. No displaced rib fracture is seen. IMPRESSION: 1. No displaced rib fracture. Recommend comparison with prior outside study. 2. No acute cardiopulmonary disease. Reported By Fred Queen MD on 11/11/19 1036 Signed By Fred Queen MD on 11/11/19 1040 Date Time CC: Fred Queen MD; No Family PHYS Provided Techn: BAKLE Trans Dt/Tm: Trans by: DT Prt Dt/Tm: : Total DLP = 0.00 mGy-cm Fluoroscopy Time (in secs): Name Value Range Interpretation Code Description Data Raquel rce(s) Supporting Document(s) ID Date Data Source [id number] 11/11/2019 10:12:00 AM EDT [facility] [place] [id number] [place] [address] [phone] NAME SEX PT STATUS ACCOUNT NUMBER DONNY FAITH ADM IN [id number] ORDERING PHYSICIAN LOCATION MEDICAL RECORD NO. Mina Deng EW [id number] ATTENDING PHYSICIAN DATE OF DATE OF EXAM/TIME Doctor Provided,No Family 1955 11/11/19 / 1004 TYPE / EXAM US Carotid art complete bilat REASON FOR EXAM Questionable TIA Comparison: None FINDINGS: Moderate plaque is seen bilaterally.. Antegrade flow vertebral arteries. Peak flow velocities are as follows: RIGHT CCA: 139.6 cm/s. RIGHT ICA: 82.4 cm/s. RIGHT ECA: 60.1 cm/s. RIGHT ICA/CCA RATIO: 0.6 LEFT CCA: 104.8 cm/s. LEFT ICA: 112.9 cm/s. LEFT ECA: 93.2 cm/s. LEFT ICA/CCA RATIO: 1.1 IMPRESSION: 1. Moderate plaque seen bilaterally. 2. No ultrasonographic evidence of a hemodynamically significant stenosis. NASCET method was utilized while determining significance of stenosis on ultrasound of the carotids. Reported By Fred Queen MD on 11/11/19 1012 Signed By Fred Queen MD on 11/11/19 1013 Date Time CC: Fred Queen MD; No Family PHYS Provided Techn: BUSMI Trans Dt/Tm: Trans by: DT Prt Dt/Tm: 1: Total DLP = 0.00 mGy-cm : Total Radiation Dose = 0.0000 mSv Lifetime Dose: 0 mSv Name Value Range Interpretation Code Description Data Raquel rce(s) Supporting Document(s) ID Date Data Source [id number] 11/11/2019 09:49:00 AM EDT [facility] Pharmacy Department DONNY FAITH : 1955 Date: 11/11/19 [id number] Pharmacy Safety Note - Review Chart Review: Medication Fall Risk Assessment From Nursing (High) Risk Medications: 2 or more Analgesic medications,2 or more Point value = 3 points per Anticonvulsant medications medication * Sedation, dizziness, postural disturbances, altered gait and balance, impaired cognition (Medium) Risk Medications: 1 Antihypertensive,1 Cardiac medication Point value = 2 points per medication * Induced orthostasis, impaired cerebral perfusion, poor health status (Low) Risk Medications: Not on any diu retics Point value = 1 point per medication * Increased ambulation, induced orthostasis Medication Fall Risk Total: 16 Fall Risk Level:(Medication) High fall risk due to current medications Based on current medications Vital Signs Last Temp Pulse Resp BP Pulse Ox 97.8 F 75 20 128/79 96 11/11/19 07:11 11/11/19 07:56 11/11/19 07:17 11/11/19 07:11 11/11/19 07:17 Hgb 14.8 g/dL (13-18) 11/11/19 06:29 Hct 42.3 % (42-52) 11/11/19 06:29 POC Glucose 273 (70-110) H 11/11/19 06:57 Phenytoin 1.4 ug/ml (10-20) L 11/10/19 19:10 Chart review:: Medication list reviewed, Pertinent lab values reviewed, Vital signs reviewed Medications of concern:: Levetiracetam 1000mg po BID. Topiramate 100mg po BID. Diltiazem 240mg daily hold for hr <60bpm or SBP <100. Fluoxetine 10mg po daily. Gabapentin 300mg po q8hr. Lisinopril 2.5mg daily. Morphine 2mg IVP q4h prn severe pain. Oxycodone/acetaminophen 5/325 1 tab q6h po prn moderate pain. Trazodone 100mg po qhs Narrative:: Mr. Faith was flagged as a high fall risk due to medications. Although he is ordered several medications that increase his risk for fall two of his medications required immediate changes. I reviewed the patient's med rec and found several inconsistencies with the patient's fill history including the patient prescribed to receive Levetiracetam 500mg po BID (entered in med rec as 1000mgpo BID), Topiramate 50mg po BID (entered in med rec as 1000 mg po BID), and Digoxin 0.125mg po dailyat 0800 (missing from med rec). Subsequently these medications were ordered at the wrong dose (Digoxin was not ordered) and the patient received 1 dose of each of these. I contacted Marilou Gonzalez in [place] regarding these medications. I asked her to speak with the patient about the doses of Levetiracetam and Topiramate the patient takes at home and if he has seen any doctors between September and now that may have adjusted the doses of his medications. Marilou relayed to Dr. Baird the patient has not seen any doctors that have increased these doses. I also contacted Dr. Ott (prescribing physician) to inquire about all of the medications he knew the patient to be taking. Hetold me he last seen the patient 09/28/2019 and at this appointment no adjustments to his medications were made. I updated the patient's med rec to reflect the information I received from Dr. Ott. I then spoke with Thom VERDE about adjusting the patient's medications to the correct doses. - Medications Current Medications: Current Medications Acetaminophen (Tylenol) 650 mg PO Q6H PRN PRN Reason: PAIN, MILD (SCORE 1-3/10) Albuterol Sulfate (Albuterol Sulf) 2.5 mg HHN Q4H PRN PRN Reason: Shortness Of Breath Albuterol/Ipratropium (Duoneb) 3 ml NEB Q4H PRN PRN Reason: SHORTNESS OF BREATH/WHEEZING Albuterol/Ipratropium (Duoneb) 3 ml NEB RTBID (1100, 1500) [facility] Arformoterol Tartrate (Brovana 15 Mcg/Amp) 15 mcg NEB RTBID (0700,1900) [facility] Last Admin: 11/11/19 07:07 Dose: 15 mcg Documented by: Aspirin (Ecotrin) 81 mg PO DAILY [facility] Atorvastatin Calcium (Atorvastatin Calcium) 20 mg PO HS [facility] Budesonide (Pulmicort 0.5mg) 0.5 mg NEB RTBID (0700,1900) [facility] Last Admin: 11/11/19 07:07 Dose: 0.5 mg Documented by: Cetirizine HCl (Zyrtec) 5 mg PO DAILY [facility] Digoxin (Lanoxin) 0.125 mg PO 0800 [facility] Diltiazem HCl (Cardizem) 240 mg PO DAILY [facility] Fluoxetine HCl (Prozac) 10 mg PO DAILY [facility] Gabapentin (Neurontin) 300 mg PO Q8HR [facility] Glimepiride (Amaryl) 4 mg PO BID@0800,2000 [facility] Last Admin: 11/11/19 07:18 Dose: 4 mg Documented by: Insulin Glargine (Lantus) 20 units SQ HS [facility] Insulin Human Lispro (Humalog) 0 units SQ AC HS/SLIDING SCALE [facility] Last Admin: 11/11/19 07:20 Dose: 6 units Documented by: Levetiracetam (Keppra) 500 mg PO BID [facility] Lisinopril (Zestril) 2.5 mg PO DAILY [facility] Morphine Sulfate (Morphine Sulfate) 2 mg IVP Q4H PRN PRN Reason: PAIN, SEVERE (SCORE 7-10/10) Stop: 11/17/19 18:41 Last Admin: 11/11/19 05:15 Dose: 2 mg Documented by: Oxycodone/Acetaminophen (Percocet 5/325) 1 tab PO Q6H PRN PRN Reason: PAIN, MODERATE (SCORE 4-6/10) Stop: 11/17/19 18:41 Last Admin: 11/11/19 01:54 Dose: 1 tab Documented by: Pantoprazole Sodium (Protonix) 40 mg PO DAILY@0700 [facility] Last Admin: 11/11/19 07:19 Dose: 40 mg Documented by: Topiramate (Topamax) 50 mg PO BID [facility] Trazodone HCl (Desyrel) 100 mg PO HS [facility] Last Admin: 11/10/19 22:43 Dose: 100 mg Documented by: - High Risk Medication interventions Pharmacy review completed:: Yes Pharmacy needs identified: Reduce dose of Levetiracetam to 500mg bid (home dose) and Topirmate to 50mg po BID (home dose) - Recommendations: Recommendations:: Yes- Provider contacted, Orders changed - doses reduced, New Orders - Digoxin 0.125mg po q8am Accepted recommendations:: Doses of both medications were reduced to home medications - Medications Home Medications: Home Medications acetaminophen-codeine 1 tab PO BID [History] albuterol sulfate [Ventolin HFA] 2 puff INHALATION PRN PRN 11/10/19 [History] apixaban [Eliquis] 5 mg PO BID 11/10/19 [History] aspirin 81 mg PO DAILY 11/10/19 [History] cyclobenzaprine 10 mg PO 08,12,20 11/10/19 [History] diltiazem HCl [DILT-XR] 240 mg PO DAILY 11/10/19 [History] esomeprazole magnesium [Nexium] 40 mg PO DAILY 11/10/19 [History] fluoxetine 10 mg PO DAILY 11/10/19 [History] fluticasone propion-salmeterol [Advair Diskus] 1 inh INHALATION BID 11/10/19 [History] gabapentin 300 mg PO ,,11/10/19 [History] glimepiride 4 mg PO BID 11/10/19 [History] insulin glargine [Basaglar KwikPen U-100 Insulin] 20 unit SUBCUT HS 11/10/19 [History] levetiracetam 500 mg PO BID 11/10/19 [History] loratadine [Claritin] 10 mg PO DAILY 11/10/19 [History] ramipril 1.25 mg PO DAILY 11/10/19 [History] rosuvastatin 5 mg PO HS 11/10/19 [History] topiramate 50 mg PO BID 11/10/19 [History] trazodone 100 mg PO DAILY 11/10/19 [History] digoxin 125 mcg PO Q8AM 11/11/19 [History] hydroxyzine HCl 25 mg PO ,,11/11/19 [History] Pharmacy Nathalie Parra 11/11/19 0949 Date Time LAST EDIT: Name Value Range Interpretation Code Description Data Raquel rce(s) Supporting Document(s) ID Date Data Source [id number] 11/11/2019 09:28:00 AM EDT [facility] Therapy Department DONNY FAITH: 1955 Date: 11/12/19 [id number] Attending: Jaylon Baird MD Physical Therapy Inpatient [facility] - Therapy Evaluation Date PT Order Received:: 11/11/19 Time:: 07:00 Date Started:: 11/11/19 Time Started:: 08:49 Diagnosis:: mariel rib fx, syncope Reason for Evaluation: New Admission Rehab Diagnosis:: difficulty walking PMH and Social Hx. Reviewed per MD, Nursing, and ER Assess.: Yes - Subjective/History Subjective:: Patient presents after a fall at home resulting in multiple rib fractures. Patient reports his painis 01/22. He also reports his furniture was taken away because his apartment is infested with cockroaches. He reports he is unable to afford new furniture. Hx pertinent to PT concerns:: afib, CHF, DM, CVA with left sided weakness Prior Level of Function:: Patient lives alone. He reports a friend helps him with cooking but this friend is unable to help with cleaning. He reports he is independent with ADLs. He has a Nidia wheelchair for long distances and a 4WW for his apartment Type of Dwelling: Apartment Number of Floors: 3 Physical Barriers in Home Environment: Elevator Home Environment:: 3rd floor apartment, elevator Does the patient have pain?: Yes - Pain Detail Pain Location: mariel ribs Pain Intensity: 10 Pain Scale Used: Numeric Scale - Objective Observations: Alert and oriented x 3 - Transfer Sit<>Stand:: Supervision Bed<>Chair:: Supervision Supine<>Sit:: Minimal Assistance Transfer Comments: patient educated on log rolling to reduce pain which he was able to demonstrates with use of railing and Christiano. Patient does have a hospital bed - Ambulation Ambulation Assistance:: Supervision # Required to Assist:: 1 Assistive Devices: 4 Wheeled Walker Distance (ft):: 50 Stairs:: n/a - Assessment Physical Therapy Impressions/Assessment: Ammon mcneil is a 64 y/o male who presents to hospital due to syncope and rib fractures. Per patient reports, his apartment has cockroaches and no furniture. He is unable to keep up with cleaning and states there is garbage throughout his apartment. Patient may require increased assistance at home due to this. Spoke to social worker assistant in regards to patient's living conditions. Patient to be placed on restorative walking. He has been encouraged to ambulate to reduce risk of pneumonia. He is taking shallow breaths and is on 3L O2 for mobility currently which he only uses at night at home. - Plan Treatment Plan: Patient Education, Bed mobility training, Gait training on level surfaces - Plan of Care Short Term Goal #1: Patient to be independent with log rolling to reduce pain with bed mobility in 1-2 visits Short Term Goal #2: Patient to perform all mobility independently in 1-2 visits - End Date Ended:: 11/11/19 Time Ended:: 09:04 Elapsed Time (minutes): 15 Elapsed Time Minutes: 15 - PT Orders Current Equipment: Walker Education Topics - Topic Education Handouts: Heart Failure (DC), COPD (Chronic Obstructive Pulmonary Disease) (DC) Therapist Sylvia Hart 11/11/19 0928 I certify this plan of care Jaylon Bernardo MD 11/12/19 0959 Date Time LAST EDIT: Name Value Range Interpretation Code Description Data Raquel rce(s) Supporting Document(s) ID Date Data Source [id number] 11/11/2019 07:22:00 AM EDT [facility] Name: Donny Faith : 1955 Age: 64 MR#: [id number] Admit Date: 11/10/19 Provider: Jaylon Baird MD Room #: 288 Consulting Provider: Dictation Date: 11/11/19 ProgressNote Subjective-ROS Date of service Date of service:: 11/11/19 Review of Systems ROS (Free Text/Narrative):: Patient in good spirits. Continued chest wall pain General: Denies Fever and Chills HEENT: Denies Headaches Endocrine: Denies Excessive sweating Cardiovascular: Reports Chest Pain Pulmonary: Denies Dyspnea Gastrointestinal: Denies nausea, vomiting and abdominal pain Genitourinary: Denies Dysuria Musculoskeletal: Denies Muscle Pain Neurological: Denies Weakness Psych: Denies anxiety and feelings of guilt Hematological/Lymphatic: Denies easy bleeding Allergic/Immunologic: Denies rash Attestation/Length Of Stay: 11/10/19 18:18 Admit to Inpatient, Acute [STATUS] Routine Location: [facility] Primary diagnosis: B Rib Fracture, Syncope Admitting Provider: Jaylon Baird Status: Inpatient Admission Anticipated Length of stay:: 3-4 Midnights Vital Signs and I O Vitals and I O: Vital Signs last 12 hours Temp Pulse Pulse Pulse Pulse Resp BP 11/11/19 07:12 100 20 11/11/19 07:11 97.8 F 97 20 128/79 11/11/19 07:07 100 20 11/11/19 05:15 20 11/11/19 05:00 97.1 F L 88 20 136/78 11/11/19 01:54 20 11/11/19 01:19 97.4 F L 86 20 145/80 11/10/19 23:39 20 11/10/19 22:40 88 11/10/19 21:54 91 90 90 11/10/19 21:19 97.8 F 88 20 146/85 11/10/19 20:44 92 20 11/10/19 20:34 94 20 11/10/19 20:32 20 11/10/19 20:19 97.8 F 85 20 142/80 BP BP BP Pulse Ox 11/11/19 07:12 95 11/11/19 07:11 93 L 11/11/19 07:07 95 11/11/19 05:15 97 11/11/19 05:00 97 11/11/19 01:54 95 11/11/19 01:19 95 11/10/19 23:39 97 11/10/19 22:40 11/10/19 21:54 152/94 108/80 174/101 11/10/19 21:19 98 11/10/19 20:44 96 11/10/19 20:34 97 11/10/19 20:32 97 11/10/19 20:19 97 Intake Output Last 24 Hours 10/1411/10/19 11/11/19 23:59 23:59 23:59 Intake Total 1140 / 1140 120 / 120 Output Total 900 / 900 650 / 650 Balance 240 / 240 -530 / -530 Current Weight 161 lb 11.2 oz Results Results: 11/11/19 06:29 11/11/19 06:29 Laboratory Results Last 24 hours 11/10/19 19:10: Phenytoin 1.4 L 11/10/19 20:30: POC Glucose 275 H 11/10/19 22:05: Sodium 138, Potassium 3.9, Chloride 106, Carbon Dioxide 24, Anion Gap 12, BUN 16, Creatinine 0.9, GFR Calculation Greater than 60, Glucose 237 H, Calcium 9.1 11/10/19 22:05: Creatine Kinase 93 11/10/19 22:05: Vwa-G-Nvkdmnnreau Pept 23.00 11/10/19 22:05: Troponin I Less than 0.015 11/11/19 06:29: WBC 9.5, RBC 4.74, Hgb 14.8, Hct 42.3, MCV 89.2, MCH 31.2 H, MCHC 35.0, RDW 14, Plt Count 237, MPV 9.2, Immature Gran % (Auto) 0.2, Neut % (Auto) 62.7, Lymph % (Auto) 25.8, Runnels % (Auto) 7.7, Eos % (Auto) 2.9, Baso % (Auto) 0.7, Lymph # (Auto) 2.4, Abs Immat Gran (auto) 0.0, Add Manual Diff No, Absolute Neutrophils 5.9, Monocytes # 0.7, Absolute Eosinophils 0.3, Absolute Basophils 0.1 11/11/19 06:29: Sodium 136, Potassium 3.8, Chloride 104, Carbon Dioxide 27, Anion Gap 9, BUN 17, Creatinine 0.7, GFR Calculation Greater than 60, Glucose 259 H, Calcium 9.4, Total Bili lopez 0.4, AST 12, ALT 21, Alkaline Phosphatase 99, Serum Total Protein 7.8, Albumin 3.7 11/11/19 06:57: POC Glucose 273 H Exam Orientation: Alert HEENT: Atraumatic, PERRLA and EOMI Lungs: normal lung sounds bilaterally Cardiovascular Exam: regular rate and normal rhythm Abdomen: Normal bowel sounds and Soft; negative for Tenderness Extremities: normal inspection Skin: Skin warm and dry, Mucus membranes moist Neurological: Normal speech Psych/Mental Status: normal affect Assessment/Plan A P Free Text/Narrative :: Impression: 1. Status post bilateral rib fracture 2. Atrial fibrillation 3. History of stroke with left-sided weakness 4. Seizure disorder 5. Recurrent syncope with orthostatic hypotension 6. Dementia 7. Asthma 8. Hyperlipidemia 9. Obstructive sleep apnea 10. Type 2 diabetes mellitus 11. History of NE Plan: Await repeat chest x-ray and if negative will resume anticoagulation. Patient will need PT OT eval. MRI echo carotid ultrasound pe nding. Continue antidiabetic management. Continue trazodone gabapentin lisinopril Topamax Keppra Protonix. Patient full code Dictated by: <Electronically signed by Jaylon Baird MD> Jaylon Baird MD 11/11/19725 Jaylon Baird MD SIGNATURE DA Report Cosigners: D: STRAL 11/11/19721 T: STRAL 11/11/19721 CC: Name Value Range Interpretation Code Description Data Raquel rce(s) Supporting Document(s) ID Date Data Source [id number] 11/11/2019 06:39:00 AM EDT [facility] Name Value Range Interpretation Code Description Data Raquel rce(s) Supporting Document(s) Leukocytes [#/volume] in Blood by Automated count 9.5 10*3/uL 4.45-10 .71 N [facility] Erythrocytes [#/volume] in Blood by Automated count 4.74 10*6/uL 4.3- 6.1 N [facility] Hemoglobin [Moles/volume] in Blood 14.8 g/dL 13-18 N [facility] Hematocrit [Volume Fraction] of Blood by Automated count 42.3 % 4 2-52 N [facility] Erythrocyte mean corpuscular volume [Ent itic volume] in Cord blood by Automated count 89.2 fL 80-96 N [facility] ital Erythrocyte mean corpuscular hemoglobin [Entitic mass] by Automated count 31.2 pg 27-31 Above high normal [facility] spital Erythrocyte mean corpuscular hemoglobin concentration [Mass/volume] in Cord blood 35.0 g/dL 33-37 N [facility] ital Erythrocyte distribution width [Entitic volume] by Automated count 14 % 11-15 N [facility] Platelets [#/volume] in Blood by Automated count 237 10*3/uL 130-472 N [facility] Platelet mean volume [Entitic volume] in Blood 9.2 fL 9.1-13.1 N [facility] Neutrophils/100 leukocytes in Blood by Automated count 62.7 % 41- 77 N [facility] Neutrophils [#/volume] in Blood by Automated count 5.9 U 1.7-7.6 N [facility] Lymphocytes/100 leukocytes in Blood by Automated count 25.8 % 14- 46 N [facility] Lymphocytes [#/volume] in Blood by Automated count 2.4 U 0.6-4.6 N [facility] Monocytes/100 leukocytes in Blood by Automated count 7.7 % 4-12 N [facility] Monocytes [#/volume] in Blood by Automated count 0.7 U 0.2-1.2 N [facility] Eosinophils/100 leukocytes in Blood by Automated count 2.9 % 0-7 N [facility] Eosinophils [#/volume] in Blood by Automated count 0.3 U 0.0-0.5 N [facility] Basophils/100 leukocytes in Blood by Automated count 0.7 % 0.4-1 .3 N [facility] Basophils [#/volume] in Blood by Automated count 0.1 U 0.0-0.2 N [facility] NUCLEATED RED BLOOD CELL 0 % [facility] NUCLEATED RED BLOOD CELL# [address] [facility] Immature granulocytes [Presence] in Blood by Automated count 0-2 N [facility] Immature granulocytes [#/volume] in Blood by Automated count 0.0 U 0-0.1 N [facility] Manual Differential panel - Blood NO [facility] ID Date Data Source [id number] 11/11/2019 06:58:00 AM EDT [facility] Name Value Range Interpretation Code Description Data Raquel rce(s) Supporting Document(s) Urea nitrogen [Mass/volume] in Serum or Plasma 17 mg/dL 9-23 N [facility] Sodium [Moles/volume] in Serum or Plasma 136 mmol/L 132-146 N [facility] Potassium [Moles/volume] in Serum or Plasma 3.8 mmol/L 3.5-5.5 N [facility] Chloride [Moles/volume] in Serum or Plasma 104 mmol/L 99-109 N [facility] Carbon dioxide, total [Moles/volume] in Serum or Plasma 27 mmol/L 20 -31 N [facility] Anion gap in Serum or Plasma 9 mmol/L 8-16 N [facility] Glucose [Mass/volume] in Serum or Plasma 259 mg/dL 74-106 Above high normal [facility] Creatinine 0.7 mg/dL 0.5-1.1 N [facility] Glomerular filtration rate/1.73 sq M.pre dicted [Volume Rate/Area] in Serum or Plasma Greater Than 60 ABOVE 60 [facility] Alanine aminotransferase [Enzymatic acti vity/volume] in Serum or Plasma by With P-5'-P 21 U/L 10-49 N [facility] ital Aspartate aminotransferase [Enzymatic ac tivity/volume] in Serum or Plasma by With P-5'-P 12 U/L 0-33 N [facility] pital Alkaline phosphatase [Enzymatic activity/volume] in Serum or Plasma 99 U/L 45-129 N [facility] Calcium [Mass/volume] in Serum or Plasma 9.4 mg/dL 8.5-10.1 N [facility] Bilirubin.total [Mass/volume] in Serum or Plasma 0.4 mg/dL 0.3-1.2 N [facility] Albumin [Mass/volume] in Serum or Plasma by Bromocresol purple (BCP) dye binding method 3.7 g/dL 3.2-4.8 N [facility] ital Protein [Mass/volume] in Serum or Plasma 7.8 g/dL 5.7-8.2 N [facility] ID Date Data Source [id number] 11/10/2019 11:10:00 PM EDT [facility] [address] [id number] [phone] NAME SEX PT STATUS ACCOUNT NUMBER Donny Faith ADM IN [id number] ORDERING PHYSICIAN LOCATION MEDICAL RECORD NO. Mina Deng [id number] ATTENDING PHYSICIAN DATE OF DATE OF EXAM/TIME Doctor Provided,No Family 1955 11[birth year]/192230 TYPE / EXAM Xray Chest One View REASON FOR EXAM b/l lower rib fractures Clinical History/Indication for Exam: b/l lower rib fractures Chest one view portable 11/10/2019 Clinical information: Bilateral lower rib fractures. Comparison: None. Technique: PA or AP view. Findings: The heart size is normal. Pulmonary vascularity is normal. There is aortic atherosclerosis.. Lungs are clear of infiltrate, effusion, or pneumothorax. Given the osteopenia, no definite acute rib fracture is seen. A rib series or CT may be of greater benefit. There are degenerative changes of the spine. Impression: 1. No visible rib fractures by limited portable chest x-ray assessment. 2. No pleural effusion or pneumothorax. REPORT SIGNATURE ON FILE 11/10/2019 (23:10 Eastern Time ) Signed by: Jose Lassiter M.D. Reported By Jose Lassiter MD on 11/10/192309 Signed By Jose Lassiter MD on 11/10/192309 Date Time CC: Jose Lassiter MD; No Family PHYS Provided Techn: PJ Trans Dt/Tm: Trans by: DT Prt Dt/Tm: 8989-9956: Total DLP = 0.00 mGy-cm Fluoroscopy Time (in secs): Name Value Range Interpretation Code Description Data Arquel rce(s) Supporting Document(s) ID Date Data Source [id number] 11/10/2019 10:48:00 AM EDT [facility] 1 OrderSheet [facility] Emergency Department [address] [place] [address] Phone #: ext- [phone] 11/10/2019 10:47 Patient: DONNY FAITH Sex: M : 1955 Age: 64yWEIGHT:73.5 kg (M) HEIGHT:68 inches (S) BMI:24.6ALLERGIES: Acetaminophen, Benadryl, Muse, Motrin, Paxil, Penicillins, ThorazineCHIEF COMPLAINT: fall, walking, passed out, backDIAGNOSIS: Syncope, Fracture of ribLAB ORDERSOrder Description Priority Entered Acknowledged InitialedC w Diff STAT 11:19 11/10/2019 11:23 Rangel Alejandra centrifugal supervisor, Rk ER P.A.-C; [id number] STAT 11:11/10/2019 11:23 [facility] centrifugal supervisor, Rk ER P.A.-C; Ijrj4Jtnxdd STAT 11:11/10/2019 11:23 [facility] centrifugal supervisor, Rk ER P.A.-C; Ubtr0AE/PTT STAT 11:11/10/2019 11:23 [facility] centrifugal supervisor, Rk ER P.A.-C; Vxoo1Inmabgbb-S STAT 11:11/10/2019 11:23 [facility] centrifugal supervisor, Rk ER P.A.-C; Atxn7Hutvwswty STAT 11:11/10/2019 11:23 [facility] centrifugal supervisor, Rk ER P.A.-C; Uwhv3MUS STAT 11:11/10/2019 11:23 [facility] centrifugal supervisor, Rk ER P.A.-C; Jpvh9Iblzoftvnx (Clean STAT 11:11/10/2019 15:26 PeterCatch) Santos Dixon RN P.A.-C;DIAGNOSTIC STUDY ORDERSOrder Description Priority Entered Acknowledged InitialedCT Chest W/ Cont STAT 12:52 11/10/2019 13:23 Lloyd(Oxygen?(No)) Santos Dixon RN(IV?(Yes)) P.A.-C; Reason for Study: L back/flank pain s/p syncope with echymosis 2 OrderSheet [facility] Emergency Department [address] [place] [address] Phone #: ext- [phone] 11/10/2019 10:47 Patient: DONNY FAITH Sex: M : 1955 Age: 64yCT Abd PEL W/ IV STAT 12:52 11/10/2019 13:23 PeterContrast Only Santos Dixon RN(Oxygen?(No)) P.A.-C;(IV?(Yes)) Reason for Study: Trauma/InjuryCT Head W/O Cont STAT 12:52 11/10/2019 13:23 Lloyd(Oxygen?(No)) Santos Dixon RN P.A.-C; Reason for Study: SyncopeCT Spine Cervical STAT 12:52 11/10/2019 13:23 PeterW/O Cont Santos Dixon RN(Oxygen?(No)) P.A.-C; Reason for Study: syncopeMEDICATION/IV/DRIP/FLUID ORDERSOrder Description Priority Entered Acknowledged InitialedIV NS : Bolus 500 11:19 11/10/2019 11:28 Ozzie, then 75 mL/hr Santos Dixon RN P.A.-C;Morphine IVP 2 mg 11:47 11/10/2019 11:54 Josh(HIGH ALERT Santos Colindres R.N.MEDICATION) P.A.- C;Zofran IVP 4 mg 11:47 11/10/2019 11:53 Santos Moreno R.N. P.A.-C;Morphine IVP 2 mg 16:30 11/10/2019 16:36 Lloyd(HIGH ALERT Santos Dixon RNMEDICATION) P.A.-C;GENERAL ORDERSOrder Description Priority Entered Acknowledged InitialedBlood Pressure 11:19 11/10/2019 11:19 [place]Monitor Santos Aleajndra centrifugal supervisor, Rk IZAGUIRRE P.A.-C; Bgro7Lzittwy Monitor 11:19 11/10/2019 11:19 [place](continuous) Santos Alejandra centrifugal supervisor, Rk ER P.A.-C; Igtz7HND 11:19 11/10/2019 11:19 [place] Santos Alejandra centrifugal supervisor, Rk ER P.A.-C; Ojfw6NME 11:19 11/10/2019 11:19 Rangel Alejandra centrifugal supervisor, Rk IZAGUIRRE P.A.-C; Tech1 3 OrderSheet [facility] Emergency Department [address] [place] [address] Phone #: ext- [phone] 11/10/2019 10:47 Patient: DONNY FAITH Sex: M : 1955 Age: 64yObtain Old EKG 11:19 11/10/2019 11:23 [place] Santos Alejandra centrifugal supervisor, Rk IZAGUIRRE PEvi-C; Fvyh0Zqawxj Old Records 11:19 11/10/2019 11:23 [place] Santos Alejandra centrifugal supervisor, Rk [place].AFreddyC; Escp8Vlhpqj titrate to 11:19 11/10/2019 11:19 Cntkqoz38% Satnos Alejandra centrifugal supervisor, Rk AvalosAFreddyC; Lvxk3Edvaa oximeter 11:19 11/10/2019 11:19 [place](Continuous) Santos Alejandra centrifugal supervisor, Rk FernandezC; Lbwl0Dzobxd Lock 11:19 11/10/2019 11:23 Lloyd Dixon RN P.A.-C;Vitals 11:19 11/10/2019 11:19 [place] Santos Alejandra centrifugal supervisor, Rk FernandezC; Udow5Ktbyfp (2 L/min) 11:19 11/10/2019 11:19 [place]) (Titrate to O2 Santos Alejandra centrifugal supervisor, Rk ERSat >92%) P.A.-C; Tech1[Electronically signed by Lloyd Dixon RN (17:03 11/10/2019)][Electronically signed by Santos Alejandra P.A.-C (22:54 )][Electronically locked by Lloyd Dixon RN (17:03 11/10/2019)] Name Value Range Interpretation Code Description Data Raquel rce(s) Supporting Document(s) ID Date Data Source [id number] 11/10/2019 10:48:00 AM EDT [facility] 1 Medication Reconciliation Report [facility] Emergency Department [address] [place] [address] Phone #: ext- [phone] 11/10/2019 10:47 Patient: DONNY FAITH Sex: M : 1955 Age: 64yWeight: 73.5 kgHeight/Length: 68 in.BMI: 24.6ALLERGIES: Acetaminophen, Benadryl, Muse, Motrin, Paxil, Penicillins, ThorazineThe patient's Home Medications are listed below:THE FOLLOWING MEDICATIONS NEED TO BE RECONCILED: Advair Diskus Inhalation (500-50 mcg/dose) 1 inhalation, 2x a day Advocate Insulin Pen [place] Aspir-81 Oral (81 mg) 1 tablet, daily Basaglar 20 unita, at bedtime [facility] Claritin Oral (5 mg) 1 tablet, daily, at bedtime Crestor Oral (5 mg) 1 tablet, daily, at bedtime Dilantin Oral DiltiaZEM HCl ER Coated Beads Oral (240 mg) 1 capsule, daily Eliquis Oral (5 mg) 1 tablet, 2x a day Flexeril Oral 10 mg, 3x a day Gabapen tin Oral (300 mg) 1 capsule, 3x a day Glimepiride Oral (4 mg) 1-1/2 tablets, 2x a day Incruse Ellipta Inhalation Keppra Oral (1000 mg) 1 tablet, 2x a day 2 Medication Reconciliation Report [facility] Emergency Department [address] [place] [address] Phone #: ext- [phone] 11/10/2019 10:47 Patient: DONNY FAITH Sex: M : 1955 Age: 64y NexIUM Oral 40 mg, daily ProAir HFA Inhalation PROzac Oral 10 mg, daily Ramipril Oral (1.25 mg) 1 capsule, daily Topamax Oral (100 mg) 1 tablet, 2x a day TraZODone HCl Oral 100 mg, daily, at bedtime Tylenol with Codeine #3 Oral, 2x a day Ventolin HFA Inhalation 2 puffs, q8h, sob, prn Z pack 1 tab day pt on day 3The source(s) of the original Home Medication information:Not obtained.The following Medications were given to the patient in the Emergency Department:IV NS IV Fluids bolus 500 mL over 20 minute(s), then 75 mL/hr, administered: 11/10/2019 11:28:00 AMZofran [IVP] IVP 4 mg, administered: 11/10/2019 11:52:00 AMMorphine [IVP] IVP 2 mg diluted in NS 10 mL, administered: 11/10/2019 11:53:00 AMMorphine [IVP] IVP 2 mg, administered: 11/10/2019 4:36:00 PMThe following Medications were prescribed to the patient:None. Name Value Range Interpretation Code Description Data Raquel rce(s) Supporting Document(s) ID Date Data Source [id number] 11/10/2019 10:48:00 AM EDT [facility] 1 Medication Administration Record [facility] Emergency Department [address] [place] [address] Phone #: ext- [phone] 11/10/2019 10:47 Patient: DONNY FAITH Sex: M : 1955 Age: 64yWeight: 73.5 kgHeight/Length: 68 inBMI: 24.6ALLERGIES: Acetaminophen, Benadryl, Muse, Motrin, Paxil, Penicillins, Thorazine Date/Time Medication Administered Medication OrderedStart IV NS IV NS : Bolus 500 mL, then 7511:28 11/10/2019 Dose: IV Fluids mL/hrPjohn Dixon RN Rate: 75 mL/h r over 5 hour(s)---- Bolus: 500 mL over 20 minute(s)Stop Dispensed: 1000 mL bag17:01 11/10/2019 Site: #1 left Roseline Dixon RNGiven MORPHINE [IVP] Morphine IVP 2 mg (HIGH ALERT11:53 11/10/2019 Dose: 2 mg IVP MEDICATION)Bernadine Moreno R.N. In: NS 10 mL Site: #1 left ACGiven ZOFRAN [IVP] (ONDANSETRON HCL) Zofran IVP 4 mg11:52 11/10/2019 Dose: 4 mg IVPPutJob devlin R.N. Site: #1 left ACGiven MORPHINE [IVP] Morphine IVP 2 mg (HIGH ALERT16:36 11/10/2019 Dose: 2 mg IVP MEDICATION)Lloyd Dixon RN Site: #1 left AC Name Value Range Interpretation Code Description Data Raquel rce(s) Supporting Document(s) ID Date Data Source [id number] 11/10/2019 10:48:00 AM EDT [facility] 1 General Instructions [facility] Emergency Department [address] [place] [address] Phone #: ext- [phone] 11/10/2019 10:47 Patient: DONNY FAITH Sex: M : 1955 Age: 64yCommon syncope.Multiple right and left rib fractures. ADDITIONAL INFORMATIONRib FractureYou broke one or more ribs. This is called a rib fracture. Rib fractures don't need a cast like otherbones. They will heal by themselves in about 4 to 6 weeks. The first 3 to 4 weeks will be the mostpainful. During this time deep breathing, coughing, or changing position from sitting to lying down,may cause the broken ends to move slight ly.Home care Rest. You should not be doing any heavy lifting or strenuous exertion until the pain goes away. It hurts to breathe when you have a broken rib. This puts you at risk of getting pneumonia from poor airflow through your lungs. To prevent this: o Take several very deep breaths once an hour while you're awake. Breathe out through 2 General Instructions [facility] Emergency Department [address] [place] [address] Phone #: ext- [phone] 11/10/2019 10:47 Patient: DONNY FAITH Sex: M : 1955 Age: 64y pursed lips as if you are blowing up a balloon. If possible, actually blow up a balloon or a rubber glove. This exercise builds up pressure inside the lung and prevents collapse of the small air sacs of the lung. This exercise may cause some pain at the site of injury. This is normal. o You may have gotten a breathing exercise device called an incentive spirometer. Use it at least 4 times a day, or as directed. Apply an ice pack over the injured area for 15 to 20 minutes every 1 to 2 hours. You should do this for the first 24 to 48 hours. To make an ice pack, put ice cubes in a plastic bag that seals at the top. Wrap the bag in a clean, thin towel or cloth. Never put ice or an ice pack directly on the skin. Keep using ice packs as needed for the relief of pain and swelling. You may use pixt-zfo-qdctvly pain medicine to control pain, unless another pain medicine was prescribed. If you have chronic liver or kidney disease or ever had a stomach ulcer or GI (gastrointestinal) bleeding, talk with your healthcare provider before using these medicines. If your pain is not controlled, contact your healthcare provider. Sometimes a stronger pain medicine may be needed. A nerve block can be done in case of severe pain. It will numb the nerve between the ribs.Follow-up careFollow up with your healthcare provider, or as advised. In rare cases, a broken rib will causecomplications in the first few days that may not be clearly seen during your initial exam. This caninclude collapsed lung, bleeding around the lung or into the belly (abdomen), or pneumonia. So watchfor the signs below.If X-rays were taken, you will be told of any new findings that may affect your care.Call [phone] if you have: Dizziness, weakness or fainting Shortness of breath with or without chest discomfort New or worsening abdominal pain Discomfort in other areas of your upper body such as your shoulders, jaw, neck, or armsWhen to seek medical adviceCall your healthcare provider right away if any of these occur: 3 General Instructions [facility] Emergency Department [address] [place] [address] Phone #: ext- [phone] 11/10/2019 10:47 Patient: DONNY FAITH Sex: M : 1955 Age: 64y Increasing chest pain with breathing Fever of 100.4F (38C) or above, or as directed by your healthcare provider Congested cough, nausea, or vomiting [id number] [employer]. [address] [place] [address]. All rights reserved. This information is not intended as asubstitute for professional medical care. Always follow your healthcare professional's instructions.Fainting: Uncertain CauseFainting (syncope) is a temporary loss of consciousness, which is often associated with a loss ofpostural tone. There are other causes of fainting, too. It's also called passing out. It occurs whenblood flow to the brain is less than normal. Near- fainting (near-syncope) is very similar to fainting, butyou don't fully pass out.Common minor causes of fainting include: Sudden fear Pain Nausea Emotional stress OverexertionSuddenly standing up after sitting or lying for a long time can also cause fainting.More serious causes of fainting include: Very slow or very fast heartbeat (arrhythmia) Other types of heart disease, such as heart valve disease or coronary artery disease Dehydration Loss of blood Seizure Stroke Ruptured blood vessel in the brainTaking too much high blood pressure medicine can also cause low blood pressure and fainting.Your healthcare provider does not know the exact cause of your fainting. But the tests today did notshow any of the serious causes of fainting. Sometimes you may need more tests to find out if you 4 General Instructions [facility] Emergency Department [address] [place] [address] Phone #: ext- [phone] 11/10/2019 10:47 Patient: DONNY FAITH Sex: M : 1955 Age: 64yhave a serious problem. That's why it's important to follow up with your provider as advised.Home careFollow these guidelines when caring for yourself at home: Rest today. You may go back to your normal activities when you are feeling back to normal. It is best to stay with someone who can check on you for the next 24 hours to watch for another episode of fainting. If you become lightheaded or dizzy, lie down right away and try to prop your feet above the level of your head. Or sit with your head between your knees. Because the provider doesn't know the exact cause of your fainting or near-fainting spell, it's possible for you to have another spell without warning. Because of this, don't drive a car or operate dangerous equipment. Don't take a bath alone. Use a shower instead. Don't swim alone until your healthcare provider says that you are no longer in danger of having another fainting spell.Follow-up careFollow up with your healthcare provider, or as advised.Call [phone] if any of these occur: Another fainting spell that's not explained by the common causes listed above Pain in your chest, arm, neck, jaw, back, or abdomen Shortness of breath Severe headache or seizure Blood in vomit or stools (black or red color) Unexpected vaginal bleeding Your heart beats very rapidly, very slowly, or irregularly (palpitations) Weakness in an arm or leg or on one side of the face Difficulty speaking or seeing Extreme drowsiness, confusion, dizziness, or fainting 7734-0186 [employer]. [address] [place] [address]. All rights reserved. This information is not intended as a 5 General Instructions [facility] Emergency Department [address] [place] [address] Phone #: ext- [phone] 11/10/2019 10:47 Patient: DONNY FAITH Sex: M : 1955 Age: 64ysubstitute for professional medical care. Always follow your healthcare professional's instructions. You have been given the following additional information: Rib Fracture Syncope, Unk Cause(Electronically signed by Santos Alejandra P.A.-C 11/10/2019 22:54) Name Value Range Interpretation Code Description Data Raquel rce(s) Supporting Document(s) ID Date Data Source [id number] 11/10/2019 10:48:00 AM EDT [facility] 1 Clinical Report - Nurses [facility] Emergency Department [address] [place] [address] Phone #: ext [phone] 11/10/2019 10:47 Patient: DONNY FAITH Sex: M : 1955 Age: 64yTRIAGEHistorian: patient.Triage time: 10:49 11/10/2019. Acuity: LEVEL 4.Chief Complaint: FALL. Passed out while walking. Landed on back.(2 days ago "blacked out" unwitnessed, patient states lasted 3 minutes landed on left side on [id number]).10:49 11/10/19. Alert. No acute distress.( Today "reached for cup, felt a sharp pain left flank").Treatment CAFE ASSOCIATE:None.EMS Treatment CAFE ASSOCIATE:Received prehospital notification of patient arrival. EMS report reviewed. See report.SEPSIS SCREEN: SIRS Screen negative. Sepsis Screen negative. No suspected or confirmed signs ofinfection present. --10:59 11/10/19 Tatianna Jasso RN10:49 11/10/19. BP: 141/92. MAP: 108. HR: 90. RR: 15. O2 saturation: 96%. Temp: 97.6 F. Pain levelnow: 01/22. Describes the quality as sharp. It has been constant. --10:59 11/10/19 Tatianna Jasso RN.Weight: 51.2 kg stated. Height/Length: 68 inches Per Patient. BMI: 17.2. --10:48 11/10/19 SHAKIRA Dao.Weight: 73.5 kg measured. BMI: 24.6. --13:52 11/10/19 Lloyd Dixon RN.MedicationsAdvair Diskus Inhalation (Aerosol Powder Breath Activated 500-50 mcg/dose) 1 inhalation, 2x a day. Advocate Insulin Pen [place]. Aspir-81 Oral (Tablet Delayed Release 81 mg) 1 tablet, daily. Basaglar 20 unita, at bedtime. [facility] [place]. Claritin Oral (Tablet Chewable 5 mg) 1 tablet, daily at bedtime. Crestor Oral (Tablet 5 mg) 1 tablet, daily at bedtime. Dilantin Oral. DiltiaZEM HCl ER Coated Beads Oral (Capsule Extended Release 24 Hour 240 mg) 1 capsule, daily. Eliquis Oral (Tablet 5 mg) 1 tablet, 2x a day. Flexeril Oral 10 mg, 3x a day. Gabapentin Oral (Capsule 300 mg) 1 capsule, 3x a day. Glimepiride Oral (Tablet 4 mg) 1-1/2 tablets, 2x a day. --11:02 11/10/19 Tatianna Jasso RN 2 Clinical Report - Nurses [facility] Emergency Department [address] [place] [address] Ph one #: ext- [phone] 11/10/2019 10:47 Patient: DONNY FAITH Sex: M : 1955 Age: 64yIncruse Ellipta Inhalation.Keppra Oral (Tablet 1000 mg) 1 tablet, 2x a day.NexIUM Oral 40 mg, daily.ProAir HFA Inhalation.PROzac Oral 10 mg, daily.Ramipril Oral (Capsule 1.25 mg) 1 capsule, daily.Topamax Oral (Tablet 100 mg) 1 tablet, 2x a day.TraZODone HCl Oral 100 mg, daily at bedtime.Tylenol with Codeine #3 Oral, 2x a day.Ventolin HFA Inhalation 2 puffs, q8h as needed, sob.Z pack 1 tab day pt on day 3. --11:02 11/10/19 Tatianna Jasso RN.AllergiesAcetaminophen.Benadryl.Muse.Motrin.Paxil.Penicillins.Thorazine. --10:54 11/10/19 Tatianna Jasso RN.Komwvyf77:49 11/10/19.PAST MEDICAL HX: Tetanus status: up-to-date. Immunizations: up-to-date.SOCIAL HX: Heavy tobacco smoker (cigarette)- more than 2 packs per day. Occasional alcohol use.History of drug use: marijuana. (daily for Chronic back pain, Arthritis). He was offered HIV testing butdeclined and hepatitis C testing but declined. He has not traveled outside the [place]Infectious disease exposure: No infectious disease exposure. (Negative COVID-19 screen). Patient is not aknown carrier of tuberculosis, hepatitis, HIV, MRSA or VRE. Patient is not a known carrier of CRE.SELF HARM ASSESSMENT: Self harm assessment was performed. The patient answered "no" to thequestion(s) "Do you have thoughts of harming or killing yourself?" and "Have you recently had thoughtsabout harming or killing others?".ABUSE ASSESSMENT: Abuse assessment. The patient had positive responses to the question(s) "Do youfeel safe in your home?" (yes). No report of abuse.NUTRITIONAL RISK ASSESSMENT: The nutritional risk assessment revealed no deficiencies.FUNCTIONAL ASSESSMENT: Functional assessment: no impairments noted.LEARNING NEEDS ASSESSMENT: The learning needs assessment revealed no barriers. 3 Clinical Report - Nurses [facility] Emergency Department [address] [place] [address] Phone #: ext- [phone] 11/10/2019 10:47 Patient: DONNY FAITH Sex: M : 1955 Age: 64y FALL RISK ASSESSMENT: Fall risk assessment completed. Risk factors identified include patient age greater than 65 years, history of fall and impairment of mobility. Fall interventions initiated. Patient placed on stretcher. Side rails up x2. Bed in low position. Brakes on. Patient visible from nurses' station and identified as a fall risk by chart flagged. Call light in reach of patient. Instructed not to get up without assistance. Instructions given to patient including fall prevention information. Verbalizes understanding. SKIN INTEGRITY ASSESSMENT: Skin integrity risk assessment completed. No skin integrity risk identified. --10:59 11/10/19 Tatianna Jasso RN.PHYSICAL SRETOJQMRO29:55 11/10/19. To room via stretcher.GENERAL / NEURO / PSYCH: Alert. Oriented X 4. Appears in pain.HEENT: Head non-tender.RESPIRATORY: Respirations not labored. Chest nontender.CVS: Pulses within normal limits.GI / : Abdomen soft. CVA tenderness on the left.SKIN: Skin is warm and dry. Ecchymosis (left side of hip yellow-brown bruising).BACK: Normal inspection of the back. Back tenderness present. ROM of the back is abnormal andpainful. Limited ROM in the back. Soft tissue tenderness in the left upper lumbar paraspinous region.--11:02 11/10/19 Tatianna Hagenston, RN To room via stretcher. GENERAL / NEURO / PSYCH: Alert. Oriented X 4. Appears in pain. HEENT: Pupils eq ual, round and reactive to light. Head non-tender. RESPIRATORY: Respirations not labored. Chest nontender. Breath sounds within normal limits. CVS: Normal heart rate and rhythm. Pulses within normal limits. Capillary refill less than 2 seconds. GI / : Abdomen soft and nontender. EXTREMITIES: Neuro-vascular status intact to the extremity. SKIN: Skin intact. Skin is warm and dry. BACK: Back: tenderness and ecchymosis located in the left lumbar area and left thoracic area. --11:13 11/10/19 Lloyd Dixon RN.NURSING PROGRESS NOTES10:49 11/10/19. Patient gowned. Two patient identifiers checked. Call light placed in reach. Side railsup x 2. Bed placed in lowest position. Brakes of bed on. Patient ready for evaluation- PA notified.--11:00 11/10/19 Tatianna Jasso RN 11:11/10/2019 Site #1 started via IV in the left antecubital space with an 20g angiocath, with aseptic technique and good blood return; one attempt. Saline lock flushed with 10 mL saline. --11:11/10/19 Lloyd Dixon RN 11:11/10/2019 Started bag #1 1000 mL IV Fluids IV NS; bolus of 500 mL over 20 minute(s) then at 75 mL/hr over 5 hour(s) via site #1 via IV pump. Allergies verified and confirmed 5 rights. IV patency established. IV site checked: no pain, redness, or swelling. IV flushed thoroughly pre- and post-medication 4 Clinical Report - Nurses [facility] Emergency Department [address] [place] [address] Phone #: ext- [phone] 11/10/2019 10:47 Patient: DONNY FAITH Sex: M : 1955 Age: 64y administration. Information reviewed with patient including reason for taking this medication. Verbalizes understanding. --11:28 11/10/19 Lloyd Dixon RN EKG time: (late entry - 11:26 11/10/2019). EKG was performed by a tech and shown to the PA. --11:31 11/10/19 Marty Richardson ER Process Safety Manager 11:52 11/10/2019 Zofran (Ondansetron HCl) IVP 4 mg given over 2 minute(s) via site #1. Allergies verified and confirmed 5 rights. IV patency established. IV site checked: no pain, redness, or swelling. IV flushed thoroughly pre- and post-medication administration. IVP given by RN. Information reviewed with patient including reason for taking this medication, signs of allergic reaction and precautions. Verbalizes understanding. --11:53 11/10/19 Bernadine Moreno R.N. 11:53 11/10/2019 Morphine IVP 2 mg given diluted in NS 10mL over 3 minute(s) via site #1. Allergies verified and confirmed 5 rights. IV patency established. IV site checked: no pain, redness, or swelling. IV flushed thoroughly pre- and post- medication administration. IVP given by RN. Information reviewed with patient including reason for taking this medication, signs of allergic reaction, precautions and sedative warning. Verbalizes understanding. --11:54 11/10/19 Bernadine Moreno R.Romana 16:11/10/19. BP: 107/73. MAP: 84. HR: 86. RR: 16. O2 saturation: 96%. Temp: 96.8 F. Pain level now: 01/22. --16:06 11/10/19 Lloyd flores RN ( pt to be transported to [facility]). --16:06 11/10/19 Lloyd Dixon RN 16:36 11/10/2019 Morphine IVP 2 mg given over 3 minute(s) via site #1. Allergies verified and confirmed 5 rights. IV patency established. IV site checked: no pain, redness, or swelling. IV flushed thoroughly pre- and post-medication administration. IVP given by RN. Information reviewed with patient including reason for taking this medication and sedative warning. Verbalizes understanding. --16:36 11/10/19 Lloyd Dixon RN 17:01 11/10/2019 IV Fluids IV NS via IV site #1 Discontinued: STOPPED upon transfer. Total amount infused: 800 mL. IV patency established. IV site checked: no pain, redness, or swelling. IV flushed thoroughly. --17:01 11/10/19 Lloyd Dixon RN.DISPOSITION / DISCHARGE Transferred. Visit overview and summary of care (CCDA) provided to EMS and transfer facility via paper and fax ([facility]). Transported via ambulance by EMS with monitor and O2. Report was given to a nurse via a phone call and visit overview. Report included information regarding patient's care and treatment, current vital signs and abnormal labs. Report included treatment information regarding medications given or pending; type and amount of IV fluids and medications infusing and total volume infused. All questions were answered. Report was acknowledged and care was transferred. (Stephanie ROSENBERG). --16:18 11/10/19 Lloyd Dixon RN 16:16 11/10/19. BP: 107/73. MAP: 84. HR: 86. RR: 16. O2 saturation: 96%. Temp: 96.8 F. Pain level now: 01/22. --16:18 11/10/19 Lloyd Dixon RN 5 Clinical Report - Nurses [facility] Emergency Department [address] [place] [address] Phone #: ext- [phone] 11/10/2019 10:47 Patient: DONNY FAITH Sex: M : 1955 Age: 64y 17:01 11/10/19. BP: 132/83. MAP: 99. HR: 84. RR: 18. O2 saturation: 95%. Temp: 97.5 F. Pain level now: 12/23. --17:02 11/10/19 Lloyd Dixon RN Departure time: 17:02 11/10/2019. --17:02 11/10/19 Lloyd Dixon RN.Locked/Released at 11/10/2019 17:03 by Lloyd Dixon RN Name Value Range Interpretation Code Description Data Raquel rce(s) Supporting Document(s) ID Date Data Source [id number] 0001 11/10/2019 10:48:00 AM EDT [facility] 1 Clinical Report - Physicians/Mid Levels [facility] Emergency Department [address] [place] [address] Phone #: ext- [phone] 11/10/2019 10:47 Patient: DONNY FAITH Sex: M : 1955 Age: 64y Time Seen: 10:56 11/10/2019; initial patient contact, initial documentation. Arrived- By ambulance. Historian- patient.HISTORY OF PRESENT ILLNESS Chief Complaint: FALL: Location of injuries- chest and abdomen (L flank pain). The injury occurred about 2 days ago. Occurred at home. Fell: He experienced syncope. No blow to the head or neck pain. The patient had loss of consciousness. (Pt sts that he has a hx of syncopal episodes. Lives at home al one. Sts that 2 days ago had a "black out" and was out for about 3 mins. Sts that doing so he fell onto his O2 tank/compressor on his L side/flank. Sts that earlier today was reaching for a cup and felt/heard a sharp pain/pop in the L flank and came tohte ER via EMS.).REVIEW OF SYSTEMS No numbness, dizziness, hearing loss, chest pain or difficulty breathing. No headache, nausea, abdominal pain, laceration or fever. No vomiting, urinary problems or depression. He has had weakness, but no pain on weight bearing. All other systems reviewed and are negative.PAST HISTORY See nurses notes. Problems: CVA - Cerebrovascular Accident. COPD - Chronic Obstructive Pulmonary Disease. Diabetes Mellitus Type 2. Bleeding Ulcer. Dementia. Diabetes Mellitus. Asthma. Chest Wall Pain. Arrhythmia. Chest Pain. Bronchitis. Neck Pain. Parkinson's Disease. Seizure. Sprain. Sleep Apnea. NE. 2 Clinical Report - Physicians/Mid Levels [facility] Emergency Department [address] [place] [address] Phone #: ext- [phone] 11/10/2019 10:47 -------- Patient: DONNY FAITH Sex: M : 1955 Age: 64yHeart Disease.Emphysema.Hypercholesterolemia.Lung Disease.Hypertension.Lower Extremity Pain [Resolved].Sinusitis [Resolved].Upper Extremity Pain [Resolved].Additional Surgeries:Appendectomy.Cholecystectomy.Medications:Incruse Ellipta Inhalation.Keppra Oral (Tablet 1000 mg) 1 tablet, 2x a day.NexIUM Oral 40 mg, daily.ProAir HFA Inhalation.PROzac Oral 10 mg, daily.Ramipril Oral (Capsule 1.25 mg) 1 capsule, daily.Topamax Oral (Tablet 100 mg) 1 tablet, 2x a day.TraZODone HCl Oral 100 mg, daily at bedtime.Tylenol with Codeine #3 Oral, 2x a day.Ventolin HFA Inhalation 2 puffs, q8h as needed, sob.Z pack 1 tab day pt on day 3.Advair Diskus Inhalation (Aerosol Powder Breath Activated 500-50 mcg/dose) 1 inhalation, 2x a day.Advocate Insulin Pen [place].Aspir-81 Oral (Tablet Delayed Release 81 mg) 1 tablet, daily.Basaglar 20 unita, at bedtime.[facility].Claritin Oral (Tablet Chewable 5 mg) 1 tablet, daily at bedtime.Crestor Oral (Tablet 5 mg) 1 tablet, daily at bedtime.Dilantin Oral.DiltiaZEM HCl ER Coated Beads Oral (Capsule Extended Release 24 Hour 240 mg) 1 capsule, daily.Eliquis Oral (Tablet 5 mg) 1 tablet, 2x a day.Flexeril Oral 10 mg, 3x a day.Gabapentin Oral (Capsule 300 mg) 1 capsule, 3x a day.Glimepiride Oral (Tablet 4 mg) 1-1/2 tablets, 2x a day.Allergies:Acetaminophen.Benadryl.Muse.Motrin.Paxil. 3 Clinical Report - Physicians/Mid Levels [facility] Emergency Department [address] [place] [address] Phone #: ext- [phone] 11/10/2019 10:47 Patient: DONNY FAITH Sex: M : 1955 Age: 64y Penicillins. Thorazine.SOCIAL HISTORY Heavy tobacco smoker- more than 2 packs per day. History of drug use: marijuana. No alcohol use.ADDITIONAL NOTES The nursing notes have been reviewed.PHYSICAL EXAM Vital Signs: 11/10/2019 10:49 BP: 141/92. MAP: 108. HR: 90. RR: 15. O2 saturation: 96%. Temp: 97.6 F. Pain level now: 01/22. Have been reviewed. Oxygen saturation normal. Appearance: Alert. Oriented X3. No acute distress. Head: Head non-tender. No swelling of head. No raccoon eyes. Eyes: Eyelids appear normal to inspection. Conjunctivae and sclerae appear normal to inspection. Corneas appear normal to inspection. Pupils equal, round and reactive to light. EOMs intact. Periorbital areas appear normal to inspection. Anterior chambers clear. ENT: Normal ENT inspection. Airway intact. TM's normal. Ears normal. Nose normal. Nares normal. Pharynx normal. Moist mucous membranes. Uvula midline. Voice normal. No teeth noted. Neck: Painless ROM. Non-tender. CVS: Normal heart rate and rhythm. No JVD present. Pulses normal. Capillary refill normal. Strong peripheral pulses. Heart sounds normal. Pulses: right radial 2+; left radial 2+; right dorsalis pedis 2+; left dorsalis pedis 2+; right posterior tibial 2+; left posterior tibial 2+. Respiratory: Chest normal on inspection. No respirato ry distress. Unlabored respirations. Lungs clear. Severe left lower and posterior chest wall tenderness. The tenderness is well-localized and reproduces the patient's subjective complaint. Good chest movement. Breath sounds normal and equal. Abdomen: Normal inspection. Soft and nontender. Bowel sounds normal. No distention. Back: Severe soft-tissue and rib tenderness in the left lower thoracic area and left upper lumbar area and in the left costovertebral angle. No vertebral point tenderness. Skin: Skin warm and dry. (Noted old echymosis near area of tenderness of back). Extremities: Pelvis stable. No pelvis related complaint. No right shoulder complaint, right arm complaint, right clavicle complaint, left clavicle complaint or left shoulder complaint. No left arm complaint, right elbow complaints, left elbow complaints, right forearm complaints or left forearm complaints. No right hand complaints, right wrist complaint, right hip complaint, left hip complaint or left wrist complaint. No left hand complaint, right thigh complaints, left thigh complaints, right knee complaints or left knee complaints. No right leg complaint, left leg complaint, right ankle abnormality, right foot complaints or left ankle complaints. No left foot complaints. Neuro: [place] Coma Scale: 15- eyes open- spontaneous (4); best verbal response- oriented (5); best motor response- obeys commands (6). Awake. Alert. Oriented X 3. Mood/affect normal. Speech normal.LABS, X-RAYS, AND EKG EKG: Sinus rhythm w/ 1st degree AV block; o/w normal ECG. 4 Clinical Report - Physicians/Mid Levels [facility] Emergency Department [address] [place] [address] Phone #: ext- [phone] 11/10/2019 10:47 Patient: DONNY FAITH Sex: M : 1955 Age: 64ydiscussed and reviewed wiht/by attending.Review previous: .CT C-Spine: (Emilie desir Michael - 11/10/2019 2:50:20 PMDJD No Fx). The study was interpreted by the radiologist.CT Head: (Shanice castro Mike - 11/10/2019 2:46:53 PMnad, bilat maxillary retention cysts stable, gmm/mk). The study was interpreted by the radiologist.Chest CT: (Emilie desir Michael - 11/10/2019 2:51:09 PMCOPD with no acute disease otherwise noted). The study was interpreted by the radiologist.CT Abdomen - Pelvis: Emilie desir Michael - 11/10/2019 2:55:43 PMRight and left lower posterior lateral rib fractures. No signs of any definite visceral injuries. No othersignificant findings noted other than nonobstructive bilateral renal calculi. The study was interpreted bythe radiologist.Laboratory Tests:CBC w Diff: (ROSARIO: 11/10/2019 11:53) ( MsgRcvd 11/10/2019 12:03) Final results Test Result Flag Units (Reference) CBC W/AUTOMATED DIFF COMPLETE BLOOD COUNT WBC 8.0 10/uL (4.2 - 11.0) RBC 4.54 10/uL (4.50 - 6.30) HEMOGLOBIN 13.8 L g/dL (14.0 - 16.0) HEMATOCRIT 39.9 L % (41.0 - 51.0) MCV 87.9 fL (80.0 - 94.0) MCH 30.4 pg (27.0 - 34.0) MCHC 34.6 g/dL (31.0 - 36.0) RDW 14.5 % (11.5 - 14.8) PLATELETS 221 10/uL (150 - 450) MPV 8.9 fL (7.4 - 10.4) NEUT 65.4 % (37.0 - 80.0) LYMPH 24.9 L % (25.0 - 40.0) MONO 6.9 % (3.0 - 8.0) EOS 1.7 % (0.0 - 7.0) BASO 0.9 % (0.0 - 2.0) %IG 0.2 H % (0.0 - 0.0) %NRBC 0.0 % (0.0 - 0.0) #NEUT 5.24 10/uL (2.00 - 6.90) #LYMPH 2.00 10/uL (0.60 - 3.40) #MONO 0.55 10/uL (0.00 - 0.90) #EOS 0.14 10/uL (0.00 - 0.70) #BASO 0.07 10/uL (0.00 - 0.20) #IG 0.02 10/uL (0.00 - 0.10) #NRBC 0.00 10/uL (0.00 - 0.00) MANUAL DIFF NOT INDICATED RBC MORPH NOT INDICATEDCMP: (ROSARIO: 11/10/2019 11:53) ( MsgRcvd 11/10/2019 12:34) Final results Test Result Flag Units (Reference) COMPREHENSIVE METABOLIC PANEL COMPREHENSIVE METABOLIC PANEL SODIUM 132 L mEq/L (134 - 153) POTASSIUM 4.2 mEq/L (3.6 - 5.0) 5 Clinical Report - Physicians/Mid Levels [facility] Emergency Department [address] [place] [address] Phone #: ext- [phone] 11/10/2019 10:47 Patient: DONNY FAITH Sex: M : 1955 Age: 64y CHLORIDE 99 mEq/L (98 - 107) CO2 23 MEQ/L (22 - 30) GLUCOSE 352 H MG/DL (65 - 110) BUN 16 MG/DL (7 - 21) CREATININE 0.5 L MG/DL (0.7 - 1.5) BUN/CREAT 32 H (8 - 27) TOTAL PROTEIN 7.1 G/DL (6.3 - 8.2) ALBUMIN 4.3 G/DL (3.9 - 5.0) GLOBULIN 2.8 GM/DL (2.4 - 3.2) A/G RATIO 1.5 (0.8 - 2.0) CALCIUM 8.6 MG/DL (8.4 - 10.2) TOTAL BILI <0.7 MG/DL (0.2 - 1.3) ALKALINE PHOS 78 U/L (38 - 126) SGOT/AST 11 U/L (5 - 40) SGPT/ALT 13 U/L (7 - 56) ANION GAP 10.0 mmol/L (8.0 - 16.0) AGE 64 yrs NON-AA GFR >60 mL/min AFR AMER GFR >60 mL/min Male GFR Interprentation 20-49 yrs >60 mL/min Acnvwa31-49 yrs >56 mL/min Normal 60-69 yrs >49 mL/min Normal 70-79yrs>42 mL/min Normal 80 and above >35 mL/min Normal Female GFRInterpretation 20-39 yrs >60 mL/min Normal 40-49 yrs >58 mL/minNormal 50-59 yrs >51 mL/min Normal 60-69 yrs >45 mL/min Ezyfgd43-33 yrs >39 mL/min Normal 80 and above >32 mL/min NormalLipase: (ROSARIO: 11/10/2019 11:53) ( [facility] 11/10/2019 12:24) Final results Test Result Flag Units * *(Reference) LIPASE 21 U/L (13 - 60)PT/PTT: (ROSARIO: 11/10/2019 11:53) ( [facility] 11/10/2019 12:22) Final results Test Result Flag Units (Reference) PROTIME 15.7 H SECONDS (11.0 - 15.5) INR 1.23 (0.93 - 1.23) PTT 32.9 SECONDS (24.8 - 36.7) \\BLDo\\INR INTERPRETATION\\BLDx\\ Therapeutic range for Coumadin andrelated oral anticoagulants. -International Normalized Ratio (INR): 2.0 - 3.0 for VenousThrombosis, Pulmonary Embolus, Tissue heart valves, Acute NE Atrial Fibrillation, Valvular heart diseaseand recurrent Systemic Embolism. -International Normalized Ratio (INR): 2.5 - 3.5 forMechanical Prosthetic valve.Troponin-T: (ROSARIO: 11/10/2019 11:53) ( [facility] 11/10/2019 13:10) Final results Test Result Flag Units (Reference) TROPONIN T <0.01 NG/ML (0.00 - 0.10) TROPONIN T0.1 ng/ml Recommended as the clinical threshold value forTroponin T.Magnesium: (ROSARIO: 11/10/2019 11:53) ( [facility] 11/10/2019 12:24) Final results Test Result Flag Units (Reference) MAGNESIUM 1.8 MG/DL (1.7 - 2.2)BNP: (ROSARIO: 11/10/2019 11:53) ( [facility] 11/10/2019 12:24) Final results Test Result Flag Units (Reference) BNP 23 PG/ML (0 - 125) 6 Clinical Report - Physicians/Mid Levels [facility] Emergency Department [address] [place] [address] Phone #: ext- [phone] 11/10/2019 10:47 Patient: DONNY FAITH Sex: M : 1955 Age: 64y Urinalysis: (ROSARIO: 11/10/2019 12:40) ( [facility] 11/10/2019 14:08) Final results Test Result Flag Units (Reference) URINALYSIS URINALYSIS SOURCE R COLOR yellow (NORMAL: Yello CLARITY clear (NORMAL: Clear SPEC GRAVITY 1.010 (1.001 - 1.030 pH 7 (5 - 9) GLUCOSE 1000 A (NORMAL: Negat BILIRUBIN NEG (NORMAL: Negat KETONE NEG (NORMAL: Negat PROTEIN NEG (NORMAL: Negat NITRITE NEG (NORMAL: Negat BLOOD NEG (NORMAL: Negat LEUK EST NEG (NORMAL: Negat UROBILINOGEN NOR (less than 1.0 MICROSCOPIC Not Indicate.PROGRESS AND PROCEDURES Course of Care: VSS, NAD, AOx3, interacting well and appropriately, no use of accessory muscle, able to speak full sentences, stable, non-toxic looking. Enter room and pt ly ing peacefully in bed in NAD. Patient stable. Denies any new issues, concerns, or complaints. Pt sts has a hx of syncopal episodes 2/2 TBI and seizures. Sts that similar chornic episode 2 days ago that casued a fall and developed pain/tenderness of the L flank/back. Will obtain labs and imaging for furhter eval. Pending results. Reviewed ECG: o/w normal ECG. Comapred and noted that slight change of new 1st degree AV block. NH today: 214. NH on 61Dhe93: 200 Pending results. Reviewed results. Pt has hx of chronci sycopial episodes. b/l lower rib fxs. Pt lives alone. Pt is a elevated fall risk. [facility] Contacted [facility] and discussed with Dr. Sanchez and he accepts. Critical care performed (60 minutes). Time includes: direct patient care, patient reassessment, coordination of patient care, interpretation of data, review of patient's medical records, medical consultation, family consultation regarding treatment decisions and documentation of patient care- see progress notes. Discussed case with health care provider (Mitchell). Disposition: Benefits, risks and alternatives to transfer explained to patient. Transferred. [facility]. UTI (catheter associated) was not present prior to transfer. Pressure ulcer was not present prior to transfer. 7 Clinical Report - Physicians/Mid Levels [facility] Emergency Department [address] [place] [address] Phone #: ext- [phone] 11/10/2019 10:47 Patient: DONNY FAITH Sex: M : 1955 Age: 64y Vascular infection (catheter associated) was not present prior to transfer.CLINICAL IMPRESSION Common syncope. Multiple right and left rib fractures.(Electronically signed by Santos Alejandra P.A.-C 11/10/2019 22:54) Name Value Range Interpretation Code Description Data Raquel rce(s) Supporting Document(s) ID Date Data Source [id number] 11/10/2019 10:57:00 PM EDT [facility] Name Value Range Interpretation Code Description Data Raquel rce(s) Supporting Document(s) Creatine kinase [Enzymatic activity/volume] in Serum or Plasma 93 U /L 33-211 N [facility] ID Date Data Source [id number] 11/10/2019 10:50:00 PM [facility] Name Value Range Interpretation Code Description Data Raquel rce(s) Supporting Document(s) Natriuretic peptide.B prohormone N-Terminal [Mass/volu me] in Serum or Plasma 23.00 pg/mL 0.00-175 N [facility] l ID Date Data Source [id number] 11/10/2019 10:44:00 PM [facility] Name Value Range Interpretation Code Description Data Raquel rce(s) Supporting Document(s) Troponin I.cardiac [Mass/volume] in Serum or Plasma Less Than 0.015 0.00-0.09 [facility] Less than 0.09 NG/ML Negative0.10 - 0.77 NG/ML High Risk0.78 NG/ML or Greater PositiveThe WHO defined the cutoff (definition for diagnosis of NE)for this method as 0.78 ng/ml. ID Date Data Source [id number] 11/10/2019 10:36:00 PM [facility] Name Value Range Interpretation Code Description Data Raquel rce(s) Supporting Document(s) Urea nitrogen [Mass/volume] in Serum or Plasma 16 mg/dL 9-23 N [facility] Sodium [Moles/volume] in Serum or Plasma 138 mmol/L 132-146 [facility] Potassium [Moles/volume] in Serum or Plasma 3.9 mmol/L 3.5-5.5 N [facility] Chloride [Moles/volume] in Serum or Plasma 106 mmol/L 99-109 N [facility] Carbon dioxide, total [Moles/volume] in Serum or Plasma 24 mmol/L 20 -31 N [facility] Anion gap in Serum or Plasma 12 mmol/L 8-16 [facility] Glucose [Mass/volume] in Serum or Plasma 237 mg/dL 74-106 Above high normal [facility] Creatinine 0.9 mg/dL 0.5-1.1 [facility] Glomerular filtration rate/1.73 sq M.pre dicted [Volume Rate/Area] in Serum or Plasma Greater Than 60 ABOVE 60 [facility] Calcium [Mass/volume] in Serum or Plasma 9.1 mg/dL 8.5-10.1 [facility] ID Date Data Source [id number] 11/10/2019 09:51:00 PM EDT [facility] Name: DONNY FAITH : 1955 Age: 64 MR#: [id number] Admit Date: 11/10/19 Provider: Mina Deng Room #: 288 Consulting Provider: Dictation Date: 11/10/19 History Physical HPI Date of service Date of service:: 11/10/19 History of Present Illness Nurse screening for coronavirus: Has patient experienced No coronavirus symptoms Chief Complaint: bilateral broken ribs, fal injury Admitted From: Direct Admit/Office Primary (Admitting) Diagnosis: Bilateral post. 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 The patient reports while he was standing up want to go to the bathroom, he felt blackening out and fell on his left side. He felt sharp pain in his lower left side of the chest wall 10/10, does not radiate. He denies spending long time on the floor. reported he was able to get up. Denies head or neck trauma. denies fever, chills, nausea, vomiting, abdominal pain, diarrhea, constipation, dysuria, increased urinary frequency or urgency. The ER provider in [facility] ordered CT scan of the head, neck, chest, ABd/pelvis it revealed right lower rib posterior lateral rib fracture, left lower rib posterior lateral rib fracture. no other acute findings. His head CT scan revealed per report bilateral maxillary retention cysts stable. no acute findings. The labs were significant for mild hyponatremia 132. 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 Family History: Father: killed at age 4747 year old, history of NE and CAD. Mother at age 83, history of CAD, DM Code status: full code Allergies/Home Meds Allergies Allergy/AdvReac Type Severity Reaction Status Date / Time chlorpromazine Allergy Unknown Verified 11/11/19 04:54 [From Thorazine] diphenhydramine Allergy Unknown Verified 11/11/19 04:54 [From Benadryl] ibuprofen [From Motrin] Allergy Unknown Verified 11/11/19 04:54 lithium Allergy Unknown Verified 11/11/19 04:54 paroxetine [From Paxil] Allergy Unknown Verified 11/11/19 04:54 penicillin G Allergy Unknown Verified 11/11/19 04:54 FISH Allergy Verified 11/11/19 04:55 acetaminophen AdvReac Unknown Verified 11/11/19 04:54 Home Medications Medication Instructions Recorded Confirmed Last Taken Type acetaminophen-codeine 1 tab PO BID 11/10/19 11/10/19 Unknown History albuterol sulfate [ProAir HFA] 2 puff INHALATION PRN PRN 11/10/19 11/10/19 Unknown History albuterol sulfate [Ventolin HFA] 2 puff INHALATION PRN PRN 11/10/19 11/10/19 Unknown History apixaban [Eliquis] 5 mg PO BID 11/10/19 11/10/19 Unknown History aspirin 81 mg PO DAILY 11/10/19 11/10/19 Unknown History cyclobenzaprine 10 mg PO TID 11/10/19 11/10/19 Unknown History diltiazem HCl [DILT-XR] 240 mg PO DAILY 11/10/19 11/10/19 Unknown History esomeprazole magnesium [Nexium] 40 mg PO DAILY 11/10/19 11/10/19 Unknown History fluoxetine 10 mg PO DAILY 11/10/19 11/10/19 Unknown History fluticasone propion-salmeterol 1 inh INHALATION BID 11/10/19 11/10/19 Unknown History [Advair Diskus] gabapentin 300 mg PO TID 11/10/19 11/10/19 Unknown History glimepiride 4 mg PO BID 11/10/19 11/10/19 Unknown History insulin glargine [Basaglar KwikPen 20 unit SUBCUT 11/10/19 11/10/19 Unknown History U-100 Insulin] levetiracetam 1,000 mg PO BID 11/10/19 11/10/19 Unknown History loratadine [Claritin] 5 mg PO DAILY 11/10/19 11/10/19 Unknown History ramipril 1.25 mg PO DAILY 11/10/19 11/10/19 Unknown History rosuvastatin 5 mg PO HS 11/10/19 11/10/19 Unknown History topiramate 100 mg PO BID 11/10/19 11/10/19 Unknown History trazodone 100 mg PO DAILY 11/10/19 11/10/19 Unknown History PFSH Medical History Alzheimer's dementia Asthma CAD (coronary artery disease) CHF (congestive heart failure) COPD (chronic obstructive pulmonary disease) CVA (cerebral vascular accident) Diabetes type 2, controlled High cholesterol HTN (hypertension) Myocardial infarction Surgical History History of appendectomy History of cholecystectomy Social History Does the Patient have a Healthcare Proxy: No Does Patient have a DNR?: No Does Patient have a Living Will?: No Advance Directives on File or in chart?: No Hx Recent Travel (where): No Smoking Status: Current every day smoker ROS Const All systems reviewed are unremarkable except as noted in HPI and below and other (All ten points of ROS are reviewed. All are negative except what is in HPI) Vital Signs and I O Vitals and I O: Vital Signs last 12 hours Temp Pulse Resp BP Pulse Ox 11/10/19 21:19 97.8 F 88 20 146/85 98 11/10/19 20:44 92 20 96 11/10/19 20:34 94 20 97 11/10/19 20:32 20 97 11/10/19 20:19 97.8 F 85 20 142/80 97 11/10/19 19:19 97.4 F L 87 20 148/84 97 11/10/19 19:03 94 18 94 L 11/10/19 18:53 94 11/10/19 18:28 98.1 F 95 18 145/86 93 L 11/10/19 18:11 98.1 F 95 18 145/86 89 L Intake Output Last 24 Hours 11/08/19 11/09/19 11/10/19 23:59 23:59 23:59 Current Weight 161 lb 11.2 oz Height,Weight BMI: Ht Wt BMI Current Height 5 ft 8 in Current Weight 161 lb 11.2 oz Body Mass Index (BMI) 24.5 Body Mass Index (BMI) Normal Classification Results Results: Laboratory Results Last 24 hours 11/10/19 19:10: Phenytoin 1.4 L Assessment/Plan A P Free Text/Narrative :: Impression Lower bilateral post. lateral ribs fracture History of DVT (reports it was last year in the spr[place]) Afib (controlled by Diltiazem) On Eliquis for both Afib and his DVT history Seizure (on antiseizure medications) Orthostatic hypotension (His orthostatic vitals are checked this visit) Non obstructive bilateral renal calculi (on the CT scan) bilateral maxillary retention cysts stable (on CT scan) DM History of CVA (reports multiple), with weak left upper and lower extremities at baseline Reports history of CHF (normal ProBNP) Hypercholesterolemia Dementia (mild, he can tell details of HPI) Sleep apnea history of NE Plan: I discussed the patient's case with thoracic specialist in [facility], who recommends chest xray tonight, then tomorrow morning. If there is no pleural effusion, which will mean no hemothorax, then we can begging the Eliquis BID with much lower risk as the hemothorax from the rib trauma tends to happen right away. Continue home medications Respiratory treatment, Tarik Luu Topiramate, iltiazem, Lisinopril, Statin, Fluoxetine, Trazodone, Gabapentin, oxycodone/acetaminophen for his pain, Pantoprazole, Insulin Glargine and insulin Lispro with achs accuchecks. DVT prophylaxis: He will be resumed on Eliquis if there is no pleural effusion or possibility of hemothorax in the morning GI prophylaxis: not indicated. He is on Pantoprazole Orthostatic hypotension seems the reason. however, having the patient's history of CVA, carotid doppler ultrasound would be indicated. MRI of the brain might be also needed. I counseled Donny Faith on the dangers of tobacco use for at least 3 minutes. Then Donny was advised to quit tobacco use altogether. I reviewed the various strategies to maximize success with Donny. These include removing cigarettes and smoking materials from the environment. I also reviewed stress management and support of family/friends. I advised the Donny of the various health risks of smoking as well as its financial impact. The patient seems no ready to quit smoking at this time. The patient will need follow up after discharge with urologist about his renal stone, and follow up with his PCP or ENT about his bilateral maxillary retention cysts Time spent [address] Baird Care plan: Plan of care discussed with patient and or family, Patient encouraged to ask questions about plan and Patient agrees with plan of care Exam Const General: cooperative Nutritional Appearance: average body habitus Orientation: alert and oriented x3 HENMT Head: normal to inspection Eyes Pupils: PERRL EOM: EOM intact bilaterally Neck Neck: normal visual inspection, supple and nontender Chest Chest: normal inspection of the chest Other: b/l post lateral ribs tenderness Resp Effort Inspection: normal respiratory effort Auscultation: clear to auscultation bilaterally, no rales, no rhonchi and no wheezes Cardio Rate: regular rate Rhythm: regular rhythm Heart Sounds: S1 normal and S2 normal GI Palpation: soft, not firm, no guarding, no hepatosplenomegaly and nontender Auscultation: normal bowel sounds Skin Lesions: no lesions Rashes: no rashes Trauma: no lacerations or abrasions Wounds: no wounds Neuro General: patient alert and patient oriented x3 Other: weak left upper and lower limbs from CVA history, at baseline. almost legally blind due to cataract. otherwise no neurological deficits. Extrem General: normal to inspection, capillary refill normal and no pedal edema Psych Mood: congruent mood Affect: normal affect Dictated by: <Electronically signed by Mina VERDE> Mina VERDE 11/11/19 0700 Mina Deng SIGNATURE DA Report Cosigners: <<Signature on File>> Jaylon Baird MD 11/11/19917 <Electronically signed by Jaylon Baird MD> Jaylon Baird MD 11/11/19917 D: ALBIB 11/10/192150 T: ALBIB 11/10/192150 CC: Name Value Range Interpretation Code Description Data Raquel rce(s) Supporting Document(s) ID Date Data Source [id number] 11/10/2019 07:41:00 PM EDT [facility] [address] [place] [address] PHONE: [phone] FAX: [phone] Name ..............: DIMA Garcia Acct Number ...........................: [id number] ROOM. ............: [address] Number ............................: [id number] Stay type.........: E/R Discharge Date...............:11/10/19 Admit Date .....: 11/10/19 Admit Phys .............................: MITCHELL GEO Date of ..: 1955 Family Phys ...........................: TRU WATERMAN Phone..............: [phone] Age.................................:64 Film# ...............:[id number] Sex.................................:M Unsigned transcriptions are preliminary reports and do not represent a medical or legal document EKG [id number] COMPLETE:11/10/19 13:29 [facility] [id number] Please See Scanned Results. Name Value Range Interpretation Code Description Data Raquel rce(s) Supporting Document(s) ID Date Data Source [id number] 11/10/2019 07:42:00 PM EDT [facility] Name Value Range Interpretation Code Description Data Raquel rce(s) Supporting Document(s) Phenytoin [Mass/volume] in Serum or Plasma 1.4 ug/mL 10-20 Belo w low normal [facility] ID Date Data Source [id number] 11/10/2019 02:08:00 PM EDT [facility] Name Value Range Interpretation Code Description Data Raquel rce(s) Supporting Document(s) URINALYSIS [facility] yellow NORMAL: Yellow [facility] CLARITY clear NORMAL: Clear [facility] Specific gravity of Urine by Test strip 1.010 1.001 - 1.030 [facility] pH 7 5 - 9 [facility] Glucose [Mass/volume] in Urine by Test strip 1000 NORMAL: Negat [facility] A [facility] Bilirubin.total [Presence] in Urine by Test strip NEG NORMAL: Negative [facility] Ketones [Presence] in Urine by Test strip NEG NORMAL: Negative [facility] Protein [Mass/volume] in Urine by Test strip NEG NORMAL: Negat [facility] Nitrite [Presence] in Urine by Test strip NEG NORMAL: Negative [facility] BLOOD NEG NORMAL: Negative [facility] Leukocyte esterase [Presence] in Urine by Test strip NEG SANDRA L: Negative [facility] Urobilinogen [Mass/volume] in Urine by Test strip NOR less jenniffer n 1.0 mg/dL [facility] MICROSCOPIC Not Indicate [facility] ID Date Data Source [id number] 11/10/2019 01:10:00 PM EDT [facility] Name Value Range Interpretation Code Description Data Raquel e(s) Supporting Document(s) TROPONIN T <0.01 NG/ML 0.00 - 0.10 [facility]ital TROPONIN T0.1 ng/ml Recommended as the c linical threshold value forTroponin T. ID Date Data Source [id number] 11/10/2019 12:34:00 PM EDT [facility] Name Value Range Interpretation Code Description Data [facility](s) Supporting Document(s) COMPREHENSIVE METABOLIC PANEL [facility] COMPREHENSIVE METABOLIC PANEL Sodium [Moles/volume] in Serum or Plasma 132 mEq/L 134 - 153 L [facility] Potassium [Moles/volume] in Serum or Plasma 4.2 mEq/L 3.6 - 5.0 [facility] Chloride [Moles/volume] in Serum or Plasma 99 mEq/L 98 - 107 [facility] Carbon dioxide, total [Moles/volume] in Serum or Plasma 23 MEQ/L 22 - 30 [facility] Glucose [Mass/volume] in Serum or Plasma 352 MG/DL 65 - 110 H [facility] BUN 16 MG/DL 7 - 21 [facility] al Creatinine [Mass/volume] in Serum or Plasma 0.5 MG/DL 0.7 - 1.5 L [facility] BUN/CREAT 32 8 - 27 H [facility] Protein [Mass/volume] in Serum or Plasma 7.1 G/DL 6.3 - 8.2 [facility] Albumin [Mass/volume] in Serum or Plasma 4.3 G/DL 3.9 - 5.0 [facility] Globulin [Mass/volume] in Serum by calculation 2.8 GM/DL 2.4 - 3.2 [facility] A/G RATIO 1.5 0.8 - 2.0 [facility] Calcium [Mass/volume] in Serum or Plasma 8.6 MG/DL 8.4 - 10.2 [facility] Bilirubin.total [Mass/volume] in Serum or Plasma <0.7 MG/DL 0.2 - 1.3 [facility] Alkaline phosphatase [Enzymatic activity/volume] in Serum or Plasma 78 U/L 38 - 126 [facility] Aspartate aminotransferase [Enzymatic activity/volume] in Serum or Plasma 11 U/L 5 - 40 [facility] Alanine aminotransferase [Enzymatic activity/volume] in Seru m or Plasma 13 U/L 7 - 56 [facility] Anion gap 3 in Serum or Plasma 10.0 mmol/L 8.0 - 16.0 [facility] AGE 64 yrs [facility] GFR >60 mL/min [facility] AFR AMER GFR >60 mL/min [facility] Male GFR In terprentation 20-49 yrs >60 mL/min Normal 50-59 yrs >56 mL/min Normal 60-69 yrs >49 mL/min Normal 70-79yrs >42 mL/min Normal 80 and above >35 mL/min Normal Female GFR Interpretation 20-39 yrs >60 mL/min Normal 40-49 yrs >58 mL/min Normal 50-59 yrs >51 mL/min Normal 60-69 yrs >45 mL/min Normal 70-79 yrs >39 mL/min Normal 80 and above >32 mL/min Normal ID Date Data Source [id number] 11/10/2019 12:24:00 PM EDT [facility] Name Value Range Interpretation Code Description Data Raquel rce(s) Supporting Document(s) BNP 23 PG/ML 0 - 125 [facility] ID Date Data Source [id number] 11/10/2019 12:24:00 PM EDT [facility] Name Value Range Interpretation Code Description Data Raquel rce(s) Supporting Document(s) Magnesium [Mass/volume] in Serum or Plasma 1.8 MG/DL 1.7 - 2.2 [facility] ID Date Data Source [id number] 11/10/2019 12:24:00 PM EDT [facility] Name Value Range Interpretation Code Description Data Raquel rce(s) Supporting Document(s) Lipase [Enzymatic activity/volume] in Serum or Plasma 21 U/L 13 - 60 [facility] ID Date Data Source [id number] 11/10/2019 12:22:00 PM EDT [facility] Name Value Range Interpretation Code Description Data Raquel rce(s) Supporting Document(s) Prothrombin time (PT) 15.7 SECONDS 11.0 - 15.5 [facility] INR in Platelet poor plasma by Coagulation assay 1.23 0.93 - 1. 23 [facility] aPTT in Blood by Coagulation assay 32.9 SECONDS 24.8 - 36.7 [facility] \\BLDo\\INR INTERPRETATION\\BLDx\\ Therapeutic range for Coumadin and related oral anticoagulants. - International Normalized Ratio (INR): 2.0 - 3.0 for Venous Thrombosis, Pulmonary Embolus, Tissue heart valves, Acute NE Atrial Fibrillation, Valvular heart disease and recurrent Systemic Embolism. - International Normalized Ratio (INR): 2.5 - 3.5 for Mechanical Prosthetic valve. ID Date Data Source [id number] 11/10/2019 12:03:00 PM EDT [facility] Name Value Range Interpretation Code Description Data Raquel rce(s) Supporting Document(s) CBC W/AUTOMATED DIFF [facility] COMPLETE BLOOD COUNT Leukocytes [#/volume] in Blood by Automated count 8.0 10^3/uL 4.2 - 1 1.0 [facility] Erythrocytes [#/volume] in Blood by Automated count 4.54 10^6/uL 4. 50 - 6.30 [facility] Hemoglobin [Mass/volume] in Blood 13.8 g/dL 14.0 - 16.0 L [facility] Hematocrit [Volume Fraction] of Blood by Automated count 39.9 % 4 1.0 - 51.0 L [facility] Erythrocyte mean corpuscular volume [Entitic volume] by Auto mated count 87.9 fL 80.0 - 94.0 [facility] Erythrocyte mean corpuscular hemoglobin [Entitic mass] by Automated count 30.4 pg 27.0 - 34.0 [facility] Erythrocyte mean corpuscular hemoglobin concentration [Mass/volume] by Automated count 34.6 g/dL 31.0 - 36.0 [facility] Erythrocyte distribution width [Ratio] by Automated count 14.5 % 11.5 - 14.8 [facility] Platelets [#/volume] in Blood by Automated count 221 10^3/uL 150 - 45 0 [facility] Platelet mean volume [Entitic volume] in Blood by Automated count 8.9 fL 7.4 - 10.4 [facility] Neutrophils/100 leukocytes in Blood by Automated count 65.4 % 37. 0 - 80.0 [facility] Lymphocytes/100 leukocytes in Blood by Manual count 24.9 % 25.0 - 40.0 L [facility] Monocytes/100 leukocytes in Blood by Automated count 6.9 % 3.0 - 8.0 [facility] Eosinophils/100 leukocytes in Blood by Automated count 1.7 % 0.0 - 7.0 [facility] Basophils/100 leukocytes in Blood by Automated count 0.9 % 0.0 - 2.0 [facility] %IG 0.2 % 0.0 - 0.0 H [facility] %NRBC 0.0 % 0.0 - 0.0 [facility] al Neutrophils [#/volume] in Blood by Automated count 5.24 10^3/uL 2.00 - 6.90 [facility] Lymphocytes [#/volume] in Blood by Automated count 2.00 10^3/uL 0.60 - 3.40 [facility] Monocytes [#/volume] in Blood by Automated count 0.55 10^3/uL 0.00 - 0.90 [facility] Eosinophils [#/volume] in Blood by Automated count 0.14 10^3/uL 0.00 - 0.70 [facility] Basophils [#/volume] in Blood by Automated count 0.07 10^3/uL 0.00 - 0.20 [facility] #IG 0.02 10^3/uL 0.00 - 0.10 [facility] #NRBC 0.00 10^3/uL 0.00 - 0.00 [facility] MANUAL DIFF NOT INDICATED [facility] RBC MORPH NOT INDICATED [facility] spital ID Date Data Source [id number] 05/14/2019 09:46:00 AM EST [facility] 1 OrderSheet [facility] Emergency Department [address] [place] [address] Phone #: ext- [phone] 05/14/2019 09:45 [id number] Sex[facility] M : 1955 Age: 64yWEIGHT:73.4 kg (S) HEIGHT:68 inches (S) BMI:24.6ALLERGIES: Acetaminophen, Benadryl, Muse, Motrin, Paxil, Penicillins, ThorazineCHIEF COMPLAINT: weaknessDIAGNOSIS: Diabetes mellitusLAB ORDERSOrder Description Priority Entered Acknowledged InitialedCBC w Diff STAT 10:05/14/2019 10:23 Denver Bojorquez RN, M.D.;CMP STAT 10:05/14/2019 10:23 Denver Bojorquez RN, M.D.;Lipase STAT 10:05/14/2019 10:23 Denver Bojorquez RN, M.D.;PT/PTT STAT 10:05/14/2019 10:23 Denver Bojorquez RN, M.D.;Troponin-T STAT 10:05/14/2019 10:23 Denver Bojorquez RN, M.D.;Venous Blood Gas STAT 10:05/14/2019 10:23 Denver Bojorquez RN, M.D.;Urinalysis (Clean STAT 10:05/14/2019 10:23 Denver Hilton RN, M.D.;Glucose, Random STAT 10:05/14/2019 10:36 Denver Bojorquez RN, M.D.; NOTES: q 1 hrDIAGNOSTIC STUDY ORDERSOrder Description Priority Entered Acknowledged InitialedChest Portable 1 STAT 10:05/14/2019 10:23 Denver Luis RN(Oxygen?(No)) Bubba; 2 OrderSheet [facility] Emergency Department [address] [place] [address] Phone #: ext- [phone] 05/14/2019 09:45 Patient: DONNY FAITH Sex: M : 1955 Age: 64y Reason for Study: weakness, coughMEDICATION/IV/DRIP/FLUID ORDERSOrder Description Priority Entered Acknowledged InitialedNS IV 1000 mL 10:05/14/2019 10:37 TerryBolus: : Bolus 1000 Denver Arreaga RNmL (X1) Bubba;Insulin Reg Subcut 10:05/14/2019 10:37 Terry10 units (HIGH Denver Arreaga RNALERT Bubba;MEDICATION)Zofran 4 mg IVP X 1 10:23 05/14/2019 10:38 Terrydose: 4 mg (NOW Denver Arreaga RNx1) Bubba;Lidocaine Viscous 10:58 05/14/2019 11:02 TerryPO 15 mL (NOW x1) Quoc Sandoval RN; Lori ROSENBERG Verbal order per; Denver Arreaga M.D.- (Oxycodone 5 mg 11:37 05/14/2019 11:52 Terrypo once) Denver Arreaga RN, M.D.;GENERAL ORDERSOrder Description Priority Entered Acknowledged InitialedBlood Pressure 10:05/14/2019 10:23 TerryMonitor Denver Arreaga RN, M.D.;EKG 10:05/14/2019 10:34 [facility] Denver Arreaga [facility] M.D.; [id number] Old EKG 10:05/14/2019 10:23 Denver Bojorquez RN, M.D.;Obtain Old Records 10:05/14/2019 10:23 Denver Bojorquez RN, M.D.;Saline Lock 10:05/14/2019 10:23 Denver Bojorquez RN, M.D.;Vitals 10:05/14/2019 10:23 Denver Bojorquez RN, M.D.; 3 OrderSheet [facility] Emergency Department [address] [place] [address] Phone #: ext- [phone] 05/14/2019 09:45 Patient: DONNY FAITH Sex: M : 1955 Age: 64yPulse oximeter 10:22 05/14/2019 10:23 Quoc(Continuous) Denver Arreaga RN, M.D.;Diet: (1500 zayda 12:24 05/14/2019 12:29 Peteriabetic Diet) Denver Arreaga RN, M.D.;[Electronically signed by Denver Arreaga M.D. (14:59 05/14/2019)][ Electronically signed by Cheng Samuels (08:55 05/15/2019)][Electronically locked by Cheng Samuels (08:55 05/15/2019)] Name Value Range Interpretation Code Description Data Raquel rce(s) Supporting Document(s) ID Date Data Source [id number] 05/14/2019 09:46:00 AM EST [facility] 1 Medication Reconciliation Report [facility] Emergency Department [address] [place] [address] Phone #: ext- [phone] 05/14/2019 09:45 Patient: DONNY FAITH Sex: M : 1955 Age: 64yWeight: 73.4 kgHeight/Length: 68 in.BMI: 24.6ALLERGIES: Acetaminophen, Benadryl, Muse, Motrin, Paxil, Penicillins, ThorazineThe patient's Home Medications are listed below:CONTINUE TAKING THE FOLLOWING MEDICATIONS: Advair Diskus Inhalation (500-50 mcg/dose) 1 inhalation, 2x a day Advocate Insulin Pen [place] Aspir-81 Oral (81 mg) 1 tablet, daily Basaglar 20 unita, at bedtime [facility] Claritin Oral (5 mg) 1 tablet, daily, at bedtime Crestor Oral (5 mg) 1 tablet, daily, at bedtime Dilantin Oral DiltiaZEM HCl ER Coated Beads Oral (240 mg) 1 capsule, daily Eliquis Oral (5 mg) 1 tablet, 2x a day Flexeril Oral 10 mg, 3x a day Gabapentin Oral (300 mg) 1 capsule, 3x a day Glimepiride Oral (4 mg) 1-1/2 tablets, 2x a day Incruse Ellipta Inhalation Keppra Oral (1000 mg) 1 tablet, 2x a day 2 Medication Reconciliation Report [facility] Emergency Department [address] [place] [address] Phone #: ext- [phone] 05/14/2019 09:45 Patient: DONNY FAITH Sex: M : 1955 Age: 64y NexIUM Oral 40 mg, daily ProAir HFA Inhalation PROzac Oral 10 mg, daily Ramipril Oral (1.25 mg) 1 capsule, daily Topamax Oral (100 mg) 1 tablet, 2x a day TraZODone HCl Oral 100 mg, daily, at bedtime Tylenol with Codeine #3 Oral, 2x a day Ventolin HFA Inhalation 2 puffs, q8h, sob, prn Z pack 1 tab day pt on day 3The source(s) of the original Home Medication information:Not obtained.The following Medications were given to the patient in the Emergency Department:normal saline IV Fluids bolus 0, then 1000 cc bolus, administered: 10:30:00 AMInsulin Reg [Subcutaneous] Subcutaneous 10 unit, administered: 05/14/2019 10:34:00 AMZofran [IVP] IVP 4 mg, administered: 05/14/2019 10:33:00 AMLidocaine Viscous [PO] PO 15 mL, administered: 05/14/2019 11:02:00 AMOxycodone [PO] PO 5 mg, administered: 05/14/2019 11:52:00 AMThe following Medications were prescribed to the patient:None. Name Value Range Interpretation Code Description Data Raquel rce(s) Supporting Document(s) ID Date Data Source [id number] 05/14/2019 09:46:00 AM EST [facility] 1 Medication Administration Record [facility] Emergency Department [address] [place] [address] Phone #: ext- [phone] 05/14/2019 09:45 Patient: DONNY FAITH Sex: M : 1955 Age: 64yWeight: 73.4 kgHeight/Length: 68 inBMI: 24.6ALLERGIES: Acetaminophen, Benadryl, Muse, Motrin, Paxil, Penicillins, Thorazine Date/Time Medication Administered Medication OrderedStart normal saline * NS IV 1000 mL Bolus: : Bolus 913555:[id number] 05/14/2019 Dose: 1000 cc bolus * IV Fluids mL (X1)Quoc Sandoval RN----Stop11:40 05/14/2019Stephane Dixon INSULIN REG [SUBCUTANEOUS] Insulin Reg Subcut 10 units (HIGH10:34 05/14/2019 Dose: 10 unit Subcutaneous ALERT MEDICATION)Mike Dixonven ZOFRAN [IVP] (ONDANSETRON HCL) Zofran 4 mg IVP X 1 dose: 4 mg10:33 05/14/2019 Dose: 4 mg IVP (NOW x1)Quoc Sandoval RN Site: #1 left ACGiven LIDOCAINE VISCOUS [PO] Lidocaine Viscous PO 15 mL11:02 05/14/2019 Dose: 15 mL Solution/Elixir PO (NOW x1)Stephane Dixon OXYCODONE [PO] - (Oxycodone 5 mg po once)11:52 05/14/2019 Dose: 5 mg Tablets Tanya Sandoval RN Name Value Range Interpretation Code Description Data Raquel rce(s) Supporting Document(s) ID Date Data Source [id number] 05/14/2019 09:46:00 AM EST [facility] 1 General Instructions [facility] Emergency Department [address] [place] [address] Phone #: ext- [phone] 05/14/2019 09:45 Patient: DONNY FAITH Sex: M : 1955 Age: 64yChronic, poorly controlled type 2 diabetes with hyperglycemia.INSTRUCTIONS (PLEASE TAKE YOUR DIABETES MEDICATIONS AND INSULIN PRESCRIBED, AND TRY TO TAKE YOUR BLOOD SUGAR 4 TIMES PER DAY AT HOME; FOLLOW UP WITH YOUR DOCTOR IN NEXT FEW DAYS).Warnings: Further evaluation is necessary. It is very important to follow up with a healthcare provider.GENERAL WARNINGS: Return or contact your physician immediately if your condition worsens orchanges unexpectedly, if not improving as expected, or if other problems arise. Specifically return if pain,vomiting, bleeding, breathing difficulty or fever greater than 102 degrees F and not controlled by ibuprofenworsens.Your Current Medications: Your current home medications have been reviewed.CONTINUE TAKING THE FOLLOWING MEDICATIONS:Advair Diskus Inhalation : Aerosol Powder Breath Activated 500-50 mcg/dose, 1 inhalation 2x a day.Advocate Insulin Pen Granby*.Aspir-81 Oral : Tablet Delayed Release 81 mg, 1 tablet daily.Basaglar* : 20 unita, at bedtime.[facility]* : [place].Claritin Oral : Tablet Chewable 5 mg, 1 tablet daily, at bedtime.Crestor Oral : Tablet 5 mg, 1 tablet daily, at bedtime.Dilantin Oral.DiltiaZEM HCl ER Coated Beads Oral : Capsule Extended Release 24 Hour 240 mg, 1 capsule daily.Eliquis Oral : Tablet 5 mg, 1 tablet 2x a day.Flexeril Oral : 10 mg 3x a day.Gabapentin Oral : Capsule 300 mg, 1 capsule 3x a day.Glimepiride Oral : Tablet 4 mg, 1-1/2 tablets 2x a day.Incruse Ellipta Inhalation.Keppra Oral : Tablet 1000 mg, 1 tablet 2x a day.NexIUM Oral : 40 mg daily.ProAir HFA Inhalation.PROzac Oral : 10 mg daily.Ramipril Oral : Capsule 1.25 mg, 1 capsule daily.Topamax Oral : Tablet 100 mg, 1 tablet 2x a day.TraZODone HCl Oral : 100 mg daily, at bedtime.Tylenol with Codeine #3 Oral : 2x a day. 2 General Instructions [facility] Emergency Department [address] [place] [address] Phone #: ext- [phone] 05/14/2019 09:45 Patient: DONNY FAITH Sex: M : 1955 Age: 64y Ventolin HFA Inhalation : 2 puffs q8h, prn, sob. Z pack 1 tab day pt on day 3*. Follow- up: Return to the emergency department as needed. Follow up with your healthcare provider in two days even if well. Call for an appointment. Reason for referral: evaluation and treatment. Summary of care provided to patient via paper. Understanding of the discharge instructions verbalized by patient. Expected course of illness, discharge instructions, activity level, diet, follow-up appointment and risks and benefits of treatment reviewed with patient and understanding verbalized. Agrees to plan of care. ADDITIONAL INFORMATIONDiabetes with High Blood SugarYou have been treated for high blood sugar (hyperglycemia). This may be because of an infection orother illness, eating too many sweets or starches, or not taking enough insulin.Home careMonitor and write down your blood sugar level at least twice a day. Do this before breakfast andbefore dinner. If you take insulin, record your routine insulin dose as well. Also record any additionaldoses required based on your sliding scale. Do this for the next 3 to 5 days.High blood sugar may cause symptoms that you can learn to recognize, such as: Frequent urination Thirst Dizziness Headache Shortness of breath Breath that smells fruity Nausea or vomiting Abdominal pain Kyler wsiness or loss of consciousnessIf you have ishp-xssdl-fhouc symptoms, use a blood or urine test to find out what your blood sugarlevel is. If it is above your usual range, use the "sliding scale" regular insulin dose prescribed by your 3 General Instructions [facility] Emergency Department [address] [place] [address] Phone #: ext- [phone] 05/14/2019 09:45 Patient: DONNY FAITH Sex: M : 1955 Age: 64yhealthcare provider. If you were not given a range for your insulin dose, contact your healthcareprovider for more advice.Follow-up careFollow up with your healthcare provider, or as advised. You may need to meet with your healthcareprovider in the next week. You will likely review your blood sugar records together. You may also talkto your provider about adjusting your dose of insulin or other medicine for blood sugar.When to seek medical adviceCall your healthcare provider right away if these occur: High blood sugar symptoms (Symptoms are described above.) Blood sugar over 300 mg/dl If you can't reach your healthcare provider, go to a hospital emergency room or urgent care center [phone] [employer]. [address] [place] [address]. All rights reserved. This information is not intended as asubstitute for professional medical care. Always follow your healthcare professional's instructions.Diet: DiabetesFood is an important tool that you can use to control diabetes and stay healthy. Eating well-balancedmeals in the correct amounts will help you control your blood glucose levels and prevent low bloodsugar reactions. It will also help you reduce the health risks of diabetes. There is no one specific dietthat is right for everyone with diabetes. But there are general guidelines to follow. A registereddietitian (YURIY) will create a tailored diet approach that's just right for you. He or she will also help youplan healthy meals and snacks. If you have any questions, call your dietitian for advice.Guidelines for successTalk with your healthcare provider before starting a diabetes diet or weight loss program. If youhaven't talked with a dietitian yet, ask your provider for a referral. The following guidelines can helpyou succeed: Select foods from the 6 food groups below. Your dietitian will help you find food choices within each group. He or she will also show you serving sizes and how many servings you can have at each meal. o Grains, beans, and starchy vegetables o Vegetables 4 General Instructions [facility] Emergency Department [address] [place] [address] Phone #: ext- [phone] 05/14/2019 09:45 Patient: DONNY FAITH Sex: M : 1955 Age: 64y o Fruit o Milk or yogurt o Meat, poultry, fish, or tofu o Healthy fats Check your blood sugar levels as directed by your provider. Take any medicine as prescribed by your provider. Learn to read food labels and pick the right portion sizes. Eat only the amount of food in your meal plan. Eat about the same amount of food at regular times each day. Don't skip meals. Eat meals 4 to 5 hours apart, with snacks in between. Limit alcohol. It raises blood sugar levels. Drink water or calorie-free diet drinks that use safe sweeteners. Eat less fat to help lower your risk of heart disease. Use nonfat or low-fat dairy products and lean meats. Avoid fried foods. Use cooking oils that are unsaturated, such as olive, canola, or peanut oil. Talk with your dietitian about safe sugar substitutes. Avoid added salt. It can contribute to high blood pressure, which can cause heart disease. People with diabetes already have a risk of high blood pressure and heart disease. Stay at a healthy weight. If you need to lose weight, cut down on your portion sizes. But don't skip meals. Exercise is an important part of any weight management program. Talk with your provider about an exercise program that's right for you. For more information about the best diet plan for you, talk with a registered dietitian (RD). To find an RD in your area, contact: o Academy of [employer] and Dietetics www.eatright.org o The [place] [employer] [phone] www.diabetes.org 2388-9189 [employer]. [address] [place] [address]. All rights reserved. This information is not intended as asubstitute for professional medical care. Always follow your healthcare professional's instructions. You have been given the following additional information: Diabetes with High Blood Sugar Diet: Diabetes 5 General Instructions [facility] Emergency Department [address] [place] [address] Phone #: ext- [phone] 05/14/2019 09:45 Patient: DONNY FAITH Sex: M : 1955 Age: 64y(Electronically signed by Denver Arreaga M.D. 05/14/2019 14:59) Name Value Range Interpretation Code Description Data Raquel rce(s) Supporting Document(s) ID Date Data Source [id number] 05/14/2019 09:46:00 AM EST [facility] 1 Clinical Report - Nurses [facility] Emergency Department [address] [place] [address] Phone #: ext- [phone] 05/14/2019 09:45 Patient: DONNY FAITH Sex: M : 1955 Age: 64yTRIAGE Arrived by EMS. Historian: EMS and patient. Triage time: 09:58 05/14/2019. Acuity: LEVEL 3. Chief Complaint: (elev blood sugar). Alert. No acute distress. ( pt c/o not feeling well, has sinus infection and elev blood sugar per EMS. pt c/o vomiting and having sore inside his mouth from eating chips.). SEPSIS SCREEN: NEGATIVE. Negative (no infection suspected/documented). --10:00 05/14/19 Latonya Henderson R.N. 09:58 05/14/19. BP: 138/85. MAP: 102. HR: 91. RR: 18. O2 saturation: 94%. Temp: 97.2 F. Pain level now: 01/22. --10:00 05/14/19 Latonya Henderson R.N. Weight: 73.4 kg stated. Height/Length: 68 inches Per Patient. BMI: 24.6. --09:58 05/14/19 Latonya Henderson R.N. Medications [facility]. --09:58 05/14/19 Quoc Sandoval RN Advair Diskus Inhalation (Aerosol Powder Breath Activated 500-50 mcg/dose) 1 inhalation, 2x a day. Advocate Insulin Pen [place]. Aspir-81 Oral (Tablet Delayed Release 81 mg) 1 tablet, daily. Basaglar 20 unita, at bedtime. Claritin Oral (Tablet Chewable 5 mg) 1 tablet, daily at bedtime. --09:58 05/14/19 Latonya Henderson R.N. Crestor Oral (Tablet 5 mg) 1 tablet, daily at bedtime. Dilantin Oral. DiltiaZEM HCl ER Coated Beads Oral (Capsule Extended Release 24 Hour 240 mg) 1 capsule, daily. Eliquis Oral (Tablet 5 mg) 1 tablet, 2x a day. Flexeril Oral 10 mg, 3x a day. Gabapentin Oral (Capsule 300 mg) 1 capsule, 3x a day. Glimepiride Oral (Tablet 4 mg) 1-1/2 tablets, 2x a day. Incruse Ellipta Inhalation. Keppra Oral (Tablet 1000 mg) 1 tablet, 2x a day. NexIUM Oral 40 mg, daily. ProAir HFA Inhalation. PROzac Oral 10 mg, daily. Ramipril Oral (Capsule 1.25 mg) 1 capsule, daily. Topamax Oral (Tablet 100 mg) 1 tablet, 2x a day. TraZODone HCl Oral 100 mg, daily at bedtime. Tylenol with Codeine #3 Oral, 2x a day. 2 Clinical Report - Nurses [facility] Emergency Department [address] [place] [address] Phone #: ext- [phone] 05/14/2019 09:45 Patient: DONNY FAITH Sex: M : 1955 Age: 64yVentolin HFA Inhalation 2 puffs, q8h as needed, sob.Z pack 1 tab day pt on day 3. --09:58 05/14/19 Latonya Henderson R.N.The following entry was struck and corrected by Quoc Sandoval RN, 10:39 (05/14/19) Reason forcorrection - other(correction). [facility]. --09:58 05/14/19 Latonya Henderson R.N. .AllergiesAcetaminophen.Benadryl.Muse.Motrin.Paxil.Penicillins.Thorazine. --09:58 05/14/19 Latonya Henderson R.N.PROBLEMS:CVA - Cerebrovascular Accident.COPD - Chronic Obstructive Pulmonary Disease.Diabetes Mellitus.Parkinson's Disease.NE.Heart Disease.Emphysema.Hypercholesterolemia.Lung Disease.Hypertension. --09:59 05/14/19 Latonya Henderson R.N.ADDITIONAL SURGERIES:Appendectomy.Cholecystectomy. --09:59 05/14/19 Latonya Henderson R.N.HistorySOCIAL HX: Never smoker. No alcohol use or drug use. He was offered HIV testing but declined. Hehas not traveled outside the [place]Infectious disease exposure: No infectious disease exposure. Patient is not a known carrier of tuberculosis,hepatitis, HIV, MRSA or VRE. Patient is not a known carrier of CRE.SELF HARM ASSESSMENT: Self harm assessment was performed. The patient answered "no" to thequestion(s) "Have you recently felt down, depressed, or hopeless?", "Do you have thoughts of harming orkilling yourself?", "Do you have a plan for harming or killing yourself?", "Have you recently had thoughtsabout harming or killing others?", "Do you have any dangerous items in your possession?", "Have younoticed less interest or pleasure in doing things?", "Are you here because you tried to hurt yourself?" and"Have you ever tried to hurt yourself before today?". 3 Clinical Report - Nurses [facility] Emergency Department [address] [place] [address] Phone #: ext- [phone] 05/14/2019 09:45 Patient: DONNY FAITH Sex: M : 1955 Age: 64y ABUSE ASSESSMENT: Abuse assessment. yes. The patient had positive responses to the question(s) "Do you feel safe in your home?". No suspicion of abuse. No report of abuse. NUTRITIONAL RISK ASSESSMENT: The nutritional risk assessment revealed no deficiencies. FUNCTIONAL ASSESSMENT: Functional assessment: no impairments noted. LEARNING NEEDS ASSESSMENT: The learning needs assessment revealed no barriers. FALL RISK ASSESSMENT: Fall risk assessment completed. Risk factors identified include patient medications, age greater than 65 years, history of fall and impairment of cognition. SKIN INTEGRITY ASSESSMENT: Skin integrity risk assessment completed. No skin integrity risk identified. --10:00 05/14/19 Latonya Henderson R.N. Interventions To treatment room. --10:00 05/14/19 Latonya Whitlock R.N.PHYSICAL ASSESSMENT 10:13 05/14/19. To room via stretcher. GENERAL / NEURO / PSYCH: Alert. Oriented X 4. HEENT: Sinus tenderness present. RESPIRATORY: Respirations not labored. Chest nontender. Breath sounds within normal limits. CVS: Capillary refill less than 2 seconds. Pulses within normal limits. GI / : Abdomen soft and nontender and normal bowel sounds. SKIN: Skin is warm and dry. --10:14 05/14/19 Quoc Sandoval RN.NURSING PROGRESS NOTES Head of bed elevated. Reassurance given. Side rails up x 2. Bed placed in lowest position. Brakes of bed on. Patient ready for evaluation- ED physician notified. --10:05/14/19July, R.N. 10:05/14/2019 Site #1 started prior to arrival by EMS via IV in the left antecubital space. --10:05/14/19July, R.N. Other. --10:05/14/19July, R.N. 10:05/14/2019 Site #1 started prior to arrival by EMS via IV in the left antecubital space with an 18g angiocath. --10:02 05/14/19July, R.N. Finger stick glucose: 534 mg/dL. --10:03 05/14/19July, R.N. ( pt given urinal. pt oob on own.). --10:03 05/14/19July, R.N. Call light placed in reach. --10:14 05/14/19 Quoc Sandoval RN 4 Clinical Report - Nurses [facility] Emergency Department [address] [place] [address] Phone #: ext- [phone] 05/14/2019 09:45 Patient: DONNY FAITH Sex: M : 1955 Age: 64yEKG time: (10:31 05/14/2019). EKG was performed by a gladys and shown to the ED physician. --10:341 [facility] Xhon140:30 05/14/2019 normal saline * IV Fluids 1000 cc bolus --10:37 05/14/19 Quoc Sandoval RN10:33 05/14/2019 Zofran (Ondansetron HCl) IVP 4 mg given over 30 second(s) via site #1. Allergiesverified and confirmed 5 rights. IV patency established. IV site checked: no pain, redness, or swelling. IVflushed thoroughly pre- and post-medication administration. IVP given by RN. --10:38 05/14/19 SHAKIRA Lopez10:34 05/14/2019 Insulin Reg Subcutaneous 10 unit given Given in the left upper arm. Allergies verifiedand confirmed 5 rights. --10:37 05/14/19 Quoc Sandoval RNChecked patient name and birthdate. Blood samples drawn by tech per protocol ; labeled in presence ofthe patient and sent to lab. (1030). --10:38 05/14/19 Quoc Sandoval RNChecked patient name and birthdate. Blood samples drawn by tech: blood culture (2nd set). (1035).--10:38 05/14/19 Quoc Sandoval RN11:02 05/14/2019 Lidocaine Viscous PO Solution/Elixir 15 mL given. Allergies verified and confirmed 5rights. Information reviewed with patient. (small amount placed on palette with q tip for mouth pain).--11:02 05/14/19 Quoc Sandoval RN11:06 05/14/19. BP: 126/75. MAP: 92. HR: 81. RR: 18. O2 saturation: 91%. --11:06 05/14/19 [facility] Evrt590:29 05/14/19. BP: 121/72. MAP: 88. HR: 82. RR: 16. O2 saturation: 92%. --11:30 05/14/19 [facility] Dmso1Gvrdck stick glucose: 1130 decreased to 341; performed by nurse; result shown to the ED physician. (1130 pt c/o sinus pain M D notified). --11:37 05/14/19 Quoc Sandoval RN11:52 05/14/2019 Oxycodone PO Tablets 5 mg given. Allergies verified and confirmed 5 rights. Informationreviewed with patient. --11:52 05/14/19 Quoc Sandoval RN12:05/14/19. BP: 133/76. MAP: 95. HR: 82. RR: 16. O2 saturation: 94%. --12:01 05/14/19 [facility] Ivon, ER Rquq365:31 05/14/19. BP: 120/78. MAP: 92. HR: 93. RR: 16. O2 saturation: 91%. --12:31 05/14/19 [facility] Ivon, Ljzi2Nfodyz stick glucose: 1240 accu check 289; performed by nurse; result shown to the ED physician. ( 1240lunch tray offered and taken well). --12:48 05/14/19 Quoc Sandoval RN 5 Clinical Report - Nurses [facility] Emergency Department [address] [place] [address] Phone #: ext- [phone] 05/14/2019 09:45 Patient: DONNY FAITH Sex: M : 1955 Age: 64y ( 1248 [employer] taxi contacted for pt). --12:49 05/14/19 Quoc Sandoval RN. Intake Output Urine output: 600 mL. --10:23 05/14/19 Quoc Sandoval RN 11:52 05/14/19. PO intake: 200 mL. IV Fluid intake: 1000 mL. Urine output: 500 mL. --11:52 05/14/19 Quoc Sandoval RN.DISPOSITION / DISCHARGE 13:05/14/19. Departure time: 13:05/14/2019. Condition at departure: improved. No learning barriers present. Reviewed medication(s) (no changes). Reviewed referrals. Provided to follow-up provider. Patient verbalized understanding. Written instructions provided in Bahamian. The patient was discharged by the physician. He was discharged home. He left in a wheelchair and via taxi. --13:19 05/14/19 Quoc Sandoval RN 13:17 05/14/19. BP: 117/84. MAP: 95. HR: 111. RR: 18. O2 saturation: 96% on room air. Temp: 97 F (oral). Pain level now: 0/10. --13:19 05/14/19 Quoc Sandoval RN 13:19 05/14/2019 Site #1 removed upon discharge. Catheter intact. Bandaid applied. --13:19 05/14/19 Quoc Sandoval RN.Locked/Released at 05/15/2019 08:55 by Cheng Samuels, Elizabeth Value Range Interpretation Code Description Data Raquel rce(s) Supporting Document(s) ID Date Data Source [id number] 05/14/2019 09:46:00 AM EST [facility] 1 Clinical Report - Physicians/Mid Levels [facility] Emergency Department [address] [place] [address] Phone #: ext- [phone] 05/14/2019 09:45 Patient: DONNY FATIH Sex: M : 1955 Age: 64y Time Seen: 09:50 05/14/2019; initial patient contact. Arrived- By ambulance. Historian- patient. Disposition decision: 12:26 05/14/2019.HISTORY OF PRESENT ILLNESS Chief Complaint: WEAKNESS. elevated BS, N/V. This started today and is now gone. It has been intermittent. The patient has had weakness. No numbness, tingling, impaired speech or swallowing or visual disturbance. No recent fall. No difficulty walking. At its maximum deficit described as mild. When seen in the E.D., it was almost gone. No dizziness, altered mental status, seizure or blackouts. Usually is alert and oriented X3. (pt is well known to us; complains of elevated BS, weakness, N/V x 1; pt takes insulin at home; POC Glucose in ER was over 500, see RN note). Similar symptoms previously. Patient has had similar symptoms occasionally. Recent medical care: The patient was seen recently at [facility]. ( in last week for COPD, got prednisone).REVIEW OF SYSTEMSNo fever, headache, head injury, chest pain or difficulty breathing. No cough, sputum production, sorethroat, abdominal pain or diarrhea. No black stools, difficulty with urination, skin rash, enlarged lymphnodes or joint pain. No bloody stools or back pain. The patient has had mild nausea and vomiting. Thevomiting has occurred only once. All other systems reviewed and are negative.PAST HISTORYSee nurses notes. Problems: CVA - Cerebrovascular Accident. COPD - Chronic Obstructive Pulmonary Disease. Diabetes Mellitus. Parkinson's Disease. NE. Heart Disease. Emphysema. Hypercholesterolemia. Lung Disease. Hypertension. 2 Clinical Report - Physicians/Mid Levels [facility] Emergency Department [address] [place] [address] Phone #: ext- [phone] 05/14/2019 09:45 --- Patient: DONNY FAITH Sex: M : 1955 Age: 64y Additional Surgeries: Appendectomy. Cholecystectomy. Medications: Crestor Oral (Tablet 5 mg) 1 tablet, daily at bedtime. Dilantin Oral. DiltiaZEM HCl ER Coated Beads Oral (Capsule Extended Release 24 Hour 240 mg) 1 capsule, daily. Eliquis Oral (Tablet 5 mg) 1 tablet, 2x a day. Flexeril Oral 10 mg, 3x a day. Gabapentin Oral (Capsule 300 mg) 1 capsule, 3x a day. Glimepiride Oral (Tablet 4 mg) 1-1/2 tablets, 2x a day. Incruse Ellipta Inhalation. Keppra Oral (Tablet 1000 mg) 1 tablet, 2x a day. NexIUM Oral 40 mg, daily. ProAir HFA Inhalation. PROzac Oral 10 mg, daily. Ramipril Oral (Capsule 1.25 mg) 1 capsule, daily. Topamax Oral (Tablet 100 mg) 1 tablet, 2x a day. TraZODone HCl Oral 100 mg, daily at bedtime. Tylenol with Codeine #3 Oral, 2x a day. Ventolin HFA Inhalation 2 puffs, q8h as needed, sob. Z pack 1 tab day pt on day 3. Advair Diskus Inhalation (Aerosol Powder Breath Activated 500-50 mcg/dose) 1 inhalation, 2x a day. Advocate Insulin Pen [place]. Aspir-81 Oral (Tablet Delayed Release 81 mg) 1 tablet, daily. Basaglar 20 unita, at bedtime. [facility]. Claritin Oral (Tablet Chewable 5 mg) 1 tablet, daily at bedtime. Al lergies: Acetaminophen. Benadryl. Muse. Motrin. Paxil. Penicillins. Thorazine.SOCIAL HISTORYFormer smoker. No alcohol use or drug use.ADDITIONAL NOTESThe nursing notes have been reviewed with agreement regarding the chief complaint, HPI, ROS, PMH and 3 Clinical Report - Physicians/Mid Levels [facility] Emergency Department [address] [place] [address] Phone #: ext- [phone] 05/14/2019 09:45 Patient: DONNY FAITH Sex: M : 1955 Age: 64y patient medications and allergies.PHYSICAL EXAMVital Signs: 05/14/2019 10:01 BP: 116/32. MAP: 60. HR: 93. RR: 16. O2 saturation: 94%.05/14/2019 09:58 BP: 138/85. MAP: 102. HR: 91. RR: 18. O2 saturation: 94%. Temp: 97.2 F. Pain levelnow: 10/10. Have been reviewed. Oxygen saturation normal.Appearance: Alert. No acute distress.Head: Head atraumatic.Eyes: Pupils equal, round and reactive to light.ENT: Normal ENT inspection. Airway intact. Pharynx normal.Neck: Normal inspection. Neck supple.CVS: Normal heart rate and rhythm. Heart sounds normal. Pulses normal.Respiratory: No respiratory distress. Painless inspiration. Breath sounds normal.Abdomen: Soft and nontender. No organomegaly.Back: Normal inspection.Skin: Skin warm and dry. Normal skin color. No rash. Normal skin turgor.Extremities: Extremities exhibit normal ROM. No lower extremity edema.Neuro: Alert. Oriented X 3. Mood/affect normal. Speech normal. Cranial nerves normal (as tested).No cerebellar findings. No motor deficit. No sensory deficit. Reflexes normal.LABS, X-RAYS, AND EKGEKG: No acute process. No acute ischemia. Normal EKG. Normal sinus rhythm. Rate: 84. NormalST and T waves. EKG unchanged when compared with prior EKG. (May 07 2019). The study has beeninterpreted contemporaneously by me. The EKG appears to be a good tracing. Interpretation time: 10:.Chest X-ray: No acute disease. (COPD, no change from 05-07-19). Views: AP (portable). The X-rayswere interpreted by the radiologist. A comparison with prior films reveals that the findings are unchanged(05-07-19). Interpretation time: 10:05/14/2019.Laboratory Tests: Laboratory tests have been ordered, with results reviewed and considered in themedical decision making process. Glucose, Random: (ROSARIO: 05/14/2019 10:23) ( MsgRcvd 05/14/2019 10:36) Canceled CMTS: q 1 hr CBC w Diff: (ROSARIO: 05/14/2019 10:31) ( MsgRcvd 05/14/2019 10:47) Final results Test Result Flag Units (Reference) CBC W/AUTOMATED DIFF COMPLETE BLOOD COUNT WBC 7.8 10/uL (4.2 - 11.0) RBC 4.25 L 10/uL (4.50 - 6.30) HEMOGLOBIN 13.4 L g/dL (14.0 - 16.0) HEMATOCRIT 38.3 L % (41.0 - 51.0) MCV 90.1 fL (80.0 - 94.0) MCH 31.5 pg (27.0 - 34.0) MCHC 35.0 g/dL (31.0 - 36.0) RDW 13.0 % (11.5 - 14.8) PLATELETS 210 10/uL (150 - 450) MPV 9.2 fL (7.4 - 10.4) NEUT 61.1 % (37.0 - 80.0) LYMPH 28.1 % (25.0 - 40.0) 4 Clinical Report - Physicians/Mid Levels [facility] Emergency Department [address] [place] [address] Phone #: ext- [phone] 05/14/2019 09:45 Patient: DONNY FAITH Sex: M : 1955 Age: 64y MONO 6.0 % (3.0 - 8.0) EOS 3.5 % (0.0 - 7.0) BASO 0.4 % (0.0 - 2.0) %IG 0.9 H % (0.0 - 0.0) %NRBC 0.0 % (0.0 - 0.0) #NEUT 4.75 10/uL (2.00 - 6.90) #LYMPH 2.18 10/uL (0.60 - 3.40) #MONO 0.47 10/uL (0.00 - 0.90) #EOS 0.27 10/uL (0.00 - 0.70) #BASO 0.03 10/uL (0.00 - 0.20) #IG 0.07 10/uL (0.00 - 0.10) #NRBC 0.00 10/uL (0.00 - 0.00) MANUAL DIFF NOT INDICATED RBC MORPH NOT INDICATEDCMP: (ROSARIO: 05/14/2019 10:31) ( MsgRcvd 05/14/2019 11:47) Final results Test Result Flag Units (Reference) COMPREHENSIVE METABOLIC PANEL COMPREHENSIVE METABOLIC PANEL SODIUM 131 L mEq/L (134 - 153) POTASSIUM 3.8 mEq/L (3.6 - 5.0) CHLORIDE 94 L mEq/L (98 - 107) CO2 24 MEQ/L (22 - 30) GLUCOSE 445 HH MG/DL (65 - 110) CHECKED IN DUPLICATE CALL/ READ BACK CALLED TO DR. ARREAGA BY: [facility] DATE/TIME 05.14.19 @ 1140 BUN 13 MG/DL (7 - 21) CREATININE 0.6 L MG/DL (0.7 - 1.5) BUN/CREAT 22 (8 - 27) TOTAL PROTEIN 6.1 L G/DL (6.3 - 8.2) ALBUMIN 3.6 L G/DL (3.9 - 5.0) GLOBULIN 2.5 GM/DL (2.4 - 3.2) A/G RATIO 1.4 (0.8 - 2.0) CALCIUM 8.8 MG/DL (8.4 - 10.2) TOTAL BILI <0.7 MG/DL (0.2 - 1.3) ALKALINE PHOS 71 U/L (38 - 126) SGOT/AST 12 U/L (5 - 40) SGPT/ALT 17 U/L (7 - 56) ANION GAP 13.0 mmol/L (8.0 - 16.0) AGE 64 yrs NON-AA GFR >60 mL/min AFR AMER GFR >60 mL/min Male GFR Interprentation 20-49 yrs >60 mL/min Ytwnpj59-57 yrs >56 mL/min Normal 60-69 yrs >49 mL/min Normal 70-79yrs>42 mL/min Normal 80 and above >35 mL/min Normal Female GFRInterpretation 20-39 yrs >60 mL/min Normal 40-49 yrs >58 mL/minNormal 50- 59 yrs >51 mL/min Normal 60-69 yrs >45 mL/min Nlzuco29-07 yrs >39 mL/min Normal 80 and above >32 mL/min NormalLipase: (ROSARIO: 05/14/2019 10:31) ( MsgRcvd 05/14/2019 11:15) Final results Test Result Flag Units (Reference) LIPASE 27 U/L (13 - 60)PT/PTT: (ROSARIO: 05/14/2019 10:31) ( MsgRcvd 05/14/2019 10:55) Final results Test Result Flag Units (Reference) PROTIME 14.4 SECONDS (11.0 - 15.5) INR 1.11 (0.93 - 1.23) PTT 27.1 SECONDS (24.8 - 36.7) \\BLDo\\INR INTERPRETATION\\BLDx\\ Therapeutic range for Coumadin andrelated oral anticoagulants. -International Normalized Ratio (INR): 2.0 - 3.0 for VenousThrombosis, Pulmonary Embolus, Tissue heart valves, Acute NE Atrial Fibrillation, Valvular heart disease 5 Clinical Report - Physicians/Mid Levels [facility] Emergency Department [address] [place] [address] Phone #: ext- [phone] 05/14/2019 09:45 Patient: DONNY FAITH Sex: M : 1955 Age: 64yand recurrent Systemic Embolism. -International Normalized Ratio (INR): 2.5 - 3.5 forMechanical Prosthetic valve. \\BLDo\\PTT INTERPRETATION\\BLDx\\Critical results for patients not on therapy: >50 seconds Critical results for patients on therapy:>119 seconds Therapeutic range for patients on therapy: 58 - 90 seconds Coag studies fromline draws may not be accurate due to Heparin and other interferences.Troponin-T: (ROSARIO: 05/14/2019 10:31) ( MsgRcvd 05/14/2019 11:13) Final results Test Result Flag Units (Reference) TROPONIN T 0.01 NG/ML (0.00 - 0.10) TROPONIN T0.1 ng/ml Recommended as the clinical threshold value forTroponin T.Chest Portable 1 View: (ROSARIO: 05/14/2019 10:22) ( MsgRcvd 05/14/2019 11:17) In Progress Exam CHEST PORTABLE [facility] [address] [place] [address] PHONE: [phone] FAX: [phone] Name .................. : DIMA Garcia Acct Number.................. : [id number] ROOM. ................. : [facility] MR Number ................... : [id number] Stay type ............. : E/R Discharge Date......... ... : Admit Date ......... : 05/14/19 Admit Phys .................... : WHITLEY OLMSTEAD Date of ....... : 1955 Family Phys ................... : TRU WATERMAN Phone .................. : [phone] Age ................................ : 64 Film# .................. .:[id number] Sex ................................. : M Unsigned transcriptions are preliminary reports and do not represent a medical or legal document CHEST PORTABLE [id number] COMPLETE:05/14/19 10:22 35063 Reason(s): weakness, cough PORTABLE CHEST X-RAY: INDICATION: Weakness, cough. COMPARISON: Prior study from 05/07/19. FINDINGS: Lung forte appear hyperinflated. This suggests underlying COPD. There is no focal infiltrate or consolidation identified. No significant change is identified as compared to the prior study. The cardiac silhouette is within normal limits. Atherosclerotic disease is identified in the aorta. The osseous structures demonstrate degenerative changes. IMPRESSION: COPD. No acute pulmonary findings. No significant change. Examination dictated by AMMON Bolaños. Examination was reviewed with Kelvin Antonio MD, radiologist at the time of this dictation. Electronically Reviewed and Signed By DCTMECHEE SIGNDATETHAI Transcribe Initials: CHELLY , Transcribe Date: 05/14/19 11:02, Dictation Date: <<REPDIST>> Page1 of 1 6 Clinical Report - Physicians/Mid Levels [facility] Emergency Department [address] [place] [address] Phone #: ext- [phone] 05/14/2019 09:45 Patient: DONNY FAITH Sex: M : 1955 Age: 64y Venous Blood Gas: (ROSARIO: 05/14/2019 10:31) ( MogRcvd 05/14/2019 10:51) Final results Test Result Flag Units (Reference) pH V 7.39 (7.32 - 7.43) pCO2 V 47.2 mm/HG (38.0 - 51.0) pO2 V 26.5 L mm/HG (30.0 - 55.0) HCO3 V 27.9 meq/L (22.0 - 29.0) TCO2 V 29.4 H meq/L (22.0 - 29.0) BASE EXCESS 2.3 H (-2.0 - 2.0) O2 SAT V 48.1 % (40.0 - 85.0) Urinalysis: (ROSARIO: 05/14/2019 10:15) ( MsgRcvd 05/14/2019 10:47) Final results Test Result Flag Units (Reference) URINALYSIS URINALYSIS SOURCE R COLOR yellow (NORMAL: Yello CLARITY clear (NORMAL: Clear SPEC GRAVITY 1.015 (1.001 - 1.030 pH 6.5 (5 - 9) GLUCOSE 1000 A (NORMAL: Negat BILIRUBIN NEG (NORMAL: Negat KETONE NEG (NORMAL: Negat PROTEIN NEG (NORMAL: Negat NITRITE NEG (NORMAL: Negat BLOOD NEG (NORMAL: Negat LEUK EST NEG (NORMAL: Negat UROBILINOGEN NOR (less than 1.0 MICROSCOPIC See Below WBC None Seen (NORMAL: NONE RBC None Seen (NORMAL: NONE EPITHELIAL FEW (NORMAL: NONE BACTERIA None Seen (NORMAL: NONE YEAST None Seen.PROGRESS AND PROCEDURESCourse of Care: 12:25 05/14/19. 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 Patient counseled in person regarding the patient's stable condition, test results, diagnosis and need for follow-up. Patient agrees with plan of care. Disposition: Condition: good and stable. Discharge decision based on the following: patient's condition is stable; patient's condition is improved; patient is ambulatory; patient is active; patient drinking fluids; patient's pain is controlled; patient's exam is improved; no seriously abnormal test results; improving condition on repeat evaluation; social support is good; transportation is available; follow-up is available; clinical impression is consistent with outpatient treatment.CLINICAL IMPRESSION Chronic, poorly controlled type 2 diabetes with hyperglycemia. 7 Clinical Report - Physicians/Mid Levels [facility] Emergency Department [address] [place] [address] Phone #: ext- [phone] 05/14/2019 09:45 Patient: DONNY FAITH Sex: M : 1955 Age: 64yINSTRUCTIONS (PLEASE TAKE YOUR DIABETES MEDICATIONS AND INSULIN PRESCRIBED, AND TRY TO TAKE YOUR BLOOD SUGAR 4 TIMES PER DAY AT HOME; FOLLOW UP WITH YOUR DOCTOR IN NEXT FEW DAYS).Warnings: Further evaluation is necessary. It is very important to follow up with a healthcare provider.GENERAL WARNINGS: Return or contact your physician immediately if your condition worsens orchanges unexpectedly, if not improving as expected, or if other problems arise. Specifically return if pain,vomiting, bleeding, breathing difficulty or fever greater than 102 degrees F and not controlled by ibuprofenworsens.Your Current Medications: Your current home medications have been reviewed.CONTINUE TAKING THE FOLLOWING MEDICATIONS:Advair Diskus Inhalation : Aerosol Powder Breath Activated 500-50 mcg/dose, 1 inhalation 2x a day.Advocate Insulin Pen Granby*.Aspir-81 Oral : Tablet Delayed Release 81 mg, 1 tablet daily.Basaglar* : 20 unita, at bedtime.[facility]Claritin Oral : Tablet Chewable 5 mg, 1 tablet daily, at bedtime.Crestor Oral : Tablet 5 mg, 1 tablet daily, at bedtime.Dilantin Oral.DiltiaZEM HCl ER Coated Beads Oral : Capsule Extended Release 24 Hour 240 mg, 1 capsule daily.Eliquis Oral : Tablet 5 mg, 1 tablet 2x a day.Flexeril Oral : 10 mg 3x a day.Gabapentin Oral : Capsule 300 mg, 1 capsule 3x a day.Glimepiride Oral : Tablet 4 mg, 1-1/2 tablets 2x a day.Incruse Ellipta Inhalation.Keppra Oral : Tablet 1000 mg, 1 tablet 2x a day.NexIUM Oral : 40 mg daily.ProAir HFA Inhalation.PROzac Oral : 10 mg daily.Ramipril Oral : Capsule 1.25 mg, 1 capsule daily.Topamax Oral : Tablet 100 mg, 1 tablet 2x a day.TraZODone HCl Oral : 100 mg daily, at bedtime.Tylenol with Codeine #3 Oral : 2x a day.Ventolin HFA Inhalation : 2 puffs q8h, prn, sob.Z pack 1 tab day pt on day 3*.Follow-up: 8 Clinical Report - Physicians/Mid Levels [facility] Emergency Department [address] [place] [address] Phone #: ext- [phone] 05/14/2019 09:45 Patient: DONNY FAITH Sex: M : 1955 Age: 64y Return to the emergency department as needed. Follow up with your healthcare provider in two days even if well. Call for an appointment. Reason for referral: evaluation and treatment. Summary of care provided to patient via paper. Understanding of the discharge instructions verbalized by patient. Expected course of illness, discharge instructions, activity level, diet, follow-up appointment and risks and benefits of treatment reviewed with patient and understanding verbalized. Agrees to plan of care.(Electronically signed by Denver Arreaga M.D. 05/14/2019 14:59) Name Value Range Interpretation Code Description Data [facility] rce(s) Supporting Document(s) ID Date Data Source [id number] 05/14/2019 09:46:00 AM [facility] VisitID: [id number] Date: 7:54normal saline * IV Fluids 1000 cc bolusNormal saline IV Fluids Discontinued: bag #1 infused. Total amount infused: 1000 mL.(Electronically signed by Quoc Sandoval RN - 05/28/2019 7:54) Name Value Range Interpretation Code Description Data [facility] rce(s) Supporting Document(s) ID Date Data Source [id number] 05/15/2019 09:43:00 [place] [address] PHONE: [phone] FAX: [phone] Name .................. : DIMA Garcia Acct Number.................. : [id number] ROOM. ................. : TR-07 MR Number ................... : [id number] Stay type ............. : E/R Discharge Date......... ... : Admit Date ......... : 05/14/19 Admit Phys .................... : WHITLEY OLMSTEAD Date of ....... : 1955 Family Phys ................... : TRU WATERMAN Phone .................. : [phone] Age ................................ : 64 Film# .................. .:[id number] Sex ................................. : M Unsigned transcriptions are preliminary reports and do not represent a medical or legal document CHEST PORTABLE [id number] COMPLETE:05/14/19 10:22 33220 Reason(s): weakness, cough PORTABLE CHEST X- RAY: INDICATION: Weakness, cough. COMPARISON: Prior study from 05/07/19. FINDINGS: Lung forte appear hyperinflated. This suggests underlying COPD. There is no focal infiltrate or consolidation identified. No significant change is identified as compared to the prior study. The cardiac silhouette is within normal limits. Atherosclerotic disease is identified in the aorta. The osseous structures demonstrate degenerative changes. IMPRESSION: COPD. No acute pulmonary findings. No significant change. Examination dictated by AMMON Bolaños. Examination was reviewed with Kelvin Antonio MD, radiologist at the time of this dictation. Electronically Reviewed and Signed By Kelvin Antonio MD , 05/15/19 09:44, KGG Transcribe Initials: CHELLY Transcribe Date: 05/14/19 11:02, Dictation Date: Copy for: EMERGENCY DEPT via mode Copy for: 710 MED REC DISCHARGED Page 1 of 1 Name Value Range Interpretation Code Description Data Raquel rce(s) Supporting Document(s) ID Date Data Source [id number] 05/15/2019 01:02:00 AM [facility] [address] [place] [address] RESPIRATORY CARE REPORT ==== ---------NAME------- NUMBER SEX AGE ADMIT DISC. XRAY# F/C [facility] DONNY A [id number] M 64 05/14/19 05/14/19 [id number] [id number] E/R DATE OF : 1955 M/R# [id number] #: [id number] TR-07 LOCATION: EMERGENCY DEPT EKG [id number] COMP LETE:05/14/19 15:40 [place] [id number] PHYSICIAN: WHITLEY OLMSTEAD Name Value Range Interpretation Code Description Data Raquel rce(s) Supporting Document(s) ID Date Data Source [id number] 05/14/2019 11:42:00 AM [facility] Name Value Range Interpretation Code Description Data Raquel rce(s) Supporting Document(s) COMPREHENSIVE METABOLIC PANEL [facility] COMPREHENSIVE METABOLIC PANEL Sodium [Moles/volume] in Serum or Plasma 131 mEq/L 134 - 153 L [facility] Potassium [Moles/volume] in Serum or Plasma 3.8 mEq/L 3.6 - 5.0 [facility] Chloride [Moles/volume] in Serum or Plasma 94 mEq/L 98 - 107 L [facility] Carbon dioxide, total [Moles/volume] in Serum or Plasma 24 MEQ/L 22 - 30 [facility] Glucose [Mass/volume] in Serum or Plasma 445 MG/DL 65 - 110 HH [facility] CHECKED IN DUPLICATE CALL/ READ BACK CALLED TO DR. WHITLEY [facility] BY: MANUEL [facility] DATE/TIME 05.14.19 @ 7437 [facility] ospital BUN 13 MG/DL 7 - 21 [facility] Creatinine [Mass/volume] in Serum or Plasma 0.6 MG/DL 0.7 - 1.5 L [facility] BUN/CREAT 22 8 - 27 [facility] Protein [Mass/volume] in Serum or Plasma 6.1 G/DL 6.3 - 8.2 L [facility] Albumin [Mass/volume] in Serum or Plasma 3.6 G/DL 3.9 - 5.0 L [facility] Globulin [Mass/volume] in Serum by calculation 2.5 GM/DL 2.4 - 3.2 [facility] A/G RATIO 1.4 0.8 - 2.0 [facility] Calcium [Mass/volume] in Serum or Plasma 8.8 MG/DL 8.4 - 10.2 [facility] Bilirubin.total [Mass/volume] in Serum or Plasma <0.7 MG/DL 0.2 - 1.3 [facility] Alkaline phosphatase [Enzymatic activity/volume] in Serum or Plasma 71 U/L 38 - 126 [facility] Aspartate aminotransferase [Enzymatic activity/volume] in Serum or Plasma 12 U/L 5 - 40 [facility] Alanine aminotransferase [Enzymatic activity/volume] in Seru m or Plasma 17 U/L 7 - 56 [facility] Anion gap 3 in Serum or Plasma 13.0 mmol/L 8.0 - 16.0 [facility] AGE 64 yrs [facility] NON-AA GFR >60 mL/min [facility] ital AFR AMER GFR >60 mL/min [facility] sp[facility] Male GFR In terprentation 20-49 yrs >60 mL/min Normal 50-59 yrs >56 mL/min Normal 60-69 yrs >49 mL/min Normal 70-79yrs >42 mL/min Normal 80 and above >35 mL/min Normal Female GFR Interpretation 20-39 yrs >60 mL/min Normal 40-49 yrs >58 mL/min Normal 50-59 yrs >51 mL/min Normal 60-69 yrs >45 mL/min Normal 70-79 yrs >39 mL/min Normal 80 and above >32 mL/min Normal ID Date Data Source [id number] 05/14/2019 11:15:00 AM [facility] Value Range Interpretation Code Description Data Raquel rce(s) Supporting Document(s) Lipase [Enzymatic activity/volume] in Serum or Plasma 27 U/L 13 - 60 [facility] ID Date Data Source [id number] 05/14/2019 11:13:00 AM [facility] Name Value Range Interpretation Code Description Data Raquel rce(s) Supporting Document(s) TROPONIN T 0.01 NG/ML 0.00 - 0.10 [facility] spital TROPONIN T0.1 ng/ml Recommended as the c linical threshold value forTroponin T. ID Date Data Source [id number] 05/14/2019 10:54:00 AM [facility] Value Range Interpretation Code Description Data Raquel rce(s) Supporting Document(s) Prothrombin time (PT) 14.4 SECONDS 11.0 - 15.5 [facility] INR in Platelet poor plasma by Coagulation assay 1.11 0.93 - 1. 23 [facility] aPTT in Blood by Coagulation assay 27.1 SECONDS 24.8 - 36.7 [facility] \\BLDo\\INR INTERPRETATION\\BLDx\\ Therapeutic range for Coumadin and related oral anticoagulants. - International Normalized Ratio (INR): 2.0 - 3.0 for Venous Thrombosis, Pulmonary Embolus, Tissue heart valves, Acute NE Atrial Fibrillation, Valvular heart disease and recurrent Systemic Embolism. - International Normalized Ratio (INR): 2.5 - 3.5 for Mechanical Prosthetic valve. \\BLDo\\PTT INTERPRETATION\\BLDx\\ Critical results for patients not on therapy: >50 seconds Critical results for patients on therapy: >119 seconds Therapeutic range for patients on therapy: 58 - 90 seconds Coag apolonia dies from line draws may not be accurate due to Heparin and other interferences. ID Date Data Source [id number] 05/14/2019 10:51:00 AM [facility] Value Range Interpretation Code Description Data Raquel rce(s) Supporting Document(s) pH of Serum or Plasma 7.39 7.32 - 7.43 [facility] pCO2 V 47.2 mm/HG 38.0 - 51.0 [facility] pO2 V 26.5 mm/HG 30.0 - 55.0 L [facility] pital Bicarbonate [Moles/volume] in Venous blood 27.9 meq/L 22.0 - 29.0 [facility] TCO2 V 29.4 meq/L 22.0 - 29.0 H [facility] Base excess in Blood by calculation 2.3 -2.0 - 2.0 H [facility] O2 SAT V 48.1 % 40.0 - 85.0 [facility] ital ID Date Data Source [id number] 05/14/2019 10:46:00 AM EST [facility] Name Value Range Interpretation Code Description Data Raquel rce(s) Supporting Document(s) CBC W/AUTOMATED DIFF [facility] COMPLETE BLOOD COUNT Leukocytes [#/volume] in Blood by Automated count 7.8 10^3/uL 4.2 - 1 1.0 [facility] Erythrocytes [#/volume] in Blood by Automated count 4.25 10^6/uL 4. 50 - 6.30 L [facility] Hemoglobin [Mass/volume] in Blood 13.4 g/dL 14.0 - 16.0 L [facility] Hematocrit [Volume Fraction] of Blood by Automated count 38.3 % 4 1.0 - 51.0 L [facility] Erythrocyte mean corpuscular volume [Entitic volume] by Auto mated count 90.1 fL 80.0 - 94.0 [facility] Erythrocyte mean corpuscular hemoglobin [Entitic mass] by Automated count 31.5 pg 27.0 - 34.0 [facility] Erythrocyte mean corpuscular hemoglobin concentration [Mass/volume] by Automated count 35.0 g/dL 31.0 - 36.0 [facility] Erythrocyte distribution width [Ratio] by Automated count 13.0 % 11.5 - 14.8 [facility] Platelets [#/volume] in Blood by Automated count 210 10^3/uL 150 - 45 0 [facility] Platelet mean volume [Entitic volume] in Blood by Automated count 9.2 fL 7.4 - 10.4 [facility] Neutrophils/100 leukocytes in Blood by Automated count 61.1 % 37. 0 - 80.0 [facility] Lymphocytes/100 leukocytes in Blood by Manual count 28.1 % 25.0 - 40.0 [facility] Monocytes/100 leukocytes in Blood by Automated count 6.0 % 3.0 - 8.0 [facility] Eosinophils/100 leukocytes in Blood by Automated count 3.5 % 0.0 - 7.0 [facility] Basophils/100 leukocytes in Blood by Automated count 0.4 % 0.0 - 2.0 [facility] %IG 0.9 % 0.0 - 0.0 H [facility] al %NRBC 0.0 % 0.0 - 0.0 [facility] al Neutrophils [#/volume] in Blood by Automated count 4.75 10^3/uL 2.00 - 6.90 [facility] Lymphocytes [#/volume] in Blood by Automated count 2.18 10^3/uL 0.60 - 3.40 [facility] Monocytes [#/volume] in Blood by Automated count 0.47 10^3/uL 0.00 - 0.90 [facility] Eosinophils [#/volume] in Blood by Automated count 0.27 10^3/uL 0.00 - 0.70 [facility] Basophils [#/volume] in Blood by Automated count 0.03 10^3/uL 0.00 - 0.20 [facility] #IG 0.07 10^3/uL 0.00 - 0.10 [facility] #NRBC 0.00 10^3/uL 0.00 - 0.00 [facility] MANUAL DIFF NOT INDICATED [facility] RBC MORPH NOT INDICATED [facility] ID Date Data Source [id number] 05/14/2019 10:47:00 AM EST [facility] Name Value Range Interpretation Code Description Data Raquel rce(s) Supporting Document(s) [facility] R [facility] COL[facility] yellow NORMAL: Yellow [facility] CLARITY clear NORMAL: Clear [facility] Specific gravity of Urine by Test strip 1.015 1.001 - 1.030 [facility] pH 6.5 5 - 9 [facility] Glucose [Mass/volume] in Urine by Test strip 1000 NORMAL: Negat savannah A [facility] Bilirubin.total [Presence] in Urine by Test strip NEG NORMAL: Negative [facility] Ketones [Presence] in Urine by Test strip NEG NORMAL: Negative [facility] Protein [Mass/volume] in Urine by Test strip NEG NORMAL: Negat savannah [facility] Nitrite [Presence] in Urine by Test strip NEG NORMAL: Negative [facility] BLOOD NEG NORMAL: Negative [facility] Leukocyte esterase [Presence] in Urine by Test strip NEG SANDRA L: Negative [facility] Urobilinogen [Mass/volume] in Urine by Test strip NOR less jenniffer n 1.0 mg/dL [facility] MICROSCOPIC See Below [facility] ital WBC None Seen NORMAL: NONE SEEN [facility] Erythrocytes [#/volume] in Urine by Test strip None Seen NORMAL: NON E SEEN [facility] EPITHELIAL FEW NORMAL: NONE SEEN [facility] Bacteria [Presence] in Urine sediment by Light microscopy No ne Seen NORMAL: NONE SEEN [facility] YEAST None Seen [facility] ID Date Data Source [id number] 05/09/2019 12:33:00 PM EST [facility] [address] [place] [address] RESPIRATORY CARE REPORT ==== ---------NAME------- NUMBER SEX AGE ADMIT DISC. XRAY# F/C AUTUMN Garcia [id number] M 64 05/07/19 05/07/19 [id number] [id number] E/R DATE OF : 1955 M/R# [id number] PH#: [id number] LOCATION: EMERGENCY DEPT EKG [id number] COMP LETE:05/08/19 02:44 [place] [id number] PHYSICIAN: WHITLEY OLMSTEAD Name Value Range Interpretation Code Description Data Raquel rce(s) Supporting Document(s) ID Date Data Source [id number] 05/08/2019 09:35:00 AM EST [facility] [address] [place] [address] PHONE: [phone] FAX: [phone] Name .................. : DIMA Garcia Acct Number.................. : [id number] [facility] ................. [facility] Number ................... : [id number] Stay type ............. : E/R Discharge Date......... ... : 05/07/19 Admit Date ......... : 05/07/19 Admit Phys .................... : WHITLEY OLMSTEAD Date of ....... : 1955 Family Phys ................... : [employer] Phone .................. : [phone] Age ................................ : 64 Film# .................. .:[id number] Sex ................................. : M Unsigned transcriptions are preliminary reports and do not represent a medical or legal document CHEST PORTABLE [id number] COMPLETE:05/07/19 19:31 KAH [id number] Reason(s): INSURANCE APPLICATION INVESTIGATOR D PORTABLE CHEST X-RAY: COMPARISON: 12/16/18 FINDINGS: There is no evidence of acute consolidation or congestive heart failure. There are vague nodular opacities in the mid-right lung zone, possibly related to scarring and follow up with PA and lateral radiographs of the chest is suggested when the patient is stable. The heart is not enlarged. There is no hilar adenopathy. The aorta is fully tortuous and calcified. The bones are demineralized with degenerative changes. The lower spine angles to the right. IMPRESSION: No evidence of significant acute pulmonary disease. Consider PA and lateral radiograph of the chest as follow up. Electronically Reviewed and Signed By Barron Maguire MD , 05/08/19 09:35, AML Transcribe Initials: CHELLY , Transcribe Date: 05/08/19 09:01, Dictation Date: Copy for: EMERGENCY DEPT via modem Copy for: 710 MED REC DISCHARGED Page 1 of 1 Name Value Range Interpretation Code Description Data Raquel rce(s) Supporting Document(s) ID Date Data Source [id number] 05/07/2019 06:37:00 PM EST [facility] 1 OrderSheet [facility] Emergency Department [address] [place] [address] Phone #: [phone]- [phone] 05/07/2019 18:37 Patient: DONNY FAITH Sex: M : 1955 Age: 64yWEIGHT:75.2 kg (M) HEIGHT:68 inches (S) BMI:25.2ALLERGIES: Acetaminophen, Benadryl, Muse, Motrin, Paxil, Penicillins, ThorazineCHIEF COMPLAINT: dyspnea, COPDDIAGNOSIS: Bronchitis, Chronic obstructive lung diseaseLAB ORDERSOrder Description Priority Entered Acknowledged InitialedCBC w Diff STAT 19:01 05/07/2019 19:08 [place] Dixon ED, Jesse ER M.D.; Dyds4CIG STAT 19:01 05/07/2019 19:08 Rangeljeffrey Arreaga, [facility] centrifugal supervisor, Rk IZAGUIRRE M.D.; Vwbx1Qmecuj STAT 19:01 05/07/2019 19:08 Rangel Arreaga, [facility] centrifugal supervisor, Rk IZAGUIRRE M.D.; Zqvb7LC/PTT STAT 19:01 05/07/2019 19:08 Rangel Arreaga, [facility] centrifugal supervisor, Rk IZAGUIRRE M.D.; Beme7Hpkjohfk-J STAT 19:01 05/07/2019 19:08 Rangel Arreaga, [facility] centrifugal supervisor, Rk IZAGUIRRE M.D.; Dkyv9P-Encdd STAT 19:01 05/07/2019 19:08 Rangel Arreaga, [facility] centrifugal supervisor, Rk IZAGUIRRE M.D.; Gdpy0QJB STAT 19:01 05/07/2019 19:08 Rangel Arreaga, [facility] centrifugal supervisor, Rk IZAGUIRRE M.D.; Lwuk7Ehdvjb Acid STAT 19:02 05/07/2019 19:08 Rangel Arreaga, [facility] centrifugal supervisor, Rk IZAGUIRRE M.D.; Zqgk9Qbzmh Culture STAT 19:02 05/07/2019 19:08 Ziqcvjxt15x X2 (Gurpreet Arreaga, [facility] centrifugal supervisor, Rk ER19:02 05/07/2019) Bubba; Ycso4Ahopb Culture STAT 19:02 05/07/2019 19:12 Zoss, Xxjftq28p X2 (Jasmyn Tando R.N.19:12 05/07/2019) Bubba;Venous Blood Gas STAT 19:02 05/07/2019 19:12 Zoss, July 15 OrderSheet [facility] Emergency Department [address] [place] [address] Phone #: ext- [phone] 05/07/2019 18:37 Patient: DONNY FAITH Sex: M : 1955 Age: 64y Denver ArreagaNPadma Mac;Influenza Nasal A B STAT 19:02 05/07/2019 19:12 Zoss, Latonya Denver Arreaga.N. M.DPadma; Reason for ordering with alerts: Clinical consideration given -- 19:02 05/07/2019 Denver Arreaga M.D.DIAGNOSTIC STUDY ORDERSOrder Description Priority Entered Acknowledged InitialedChest Portable 1 STAT 19:05/07/2019 19:08 [employer] (Oxygen? Denver Arreaga centrifugal supervisor, Rk ER(Yes)) Bubba; Tech1 Reason for Study: COPD, Shortness of BreathMEDICATION/IV/DRIP/FLUID ORDERSOrder Description Priority Entered Acknowledged InitialedDuoNeb Neb Tx 3 19:02 05/07/2019 19:18 Zoss, AprilmL Denver Arreaga R.N. M.DPadma; Reason for ordering with alerts: Clinical consideration given -- 19:02 05/07/2019 Denver Arreaga M.D.SOLU-Medrol 125 19:02 05/07/2019 19:16 Zoss, Aprilmg IV X1 Dose: 125 Turrin, Denver R.N.mg (X1) M.D.; Reason for ordering with alerts: Clinical consideration given -- 19:02 05/07/2019 Denver Arreaga M.D.NS IV 500 mL 19:03 05/07/2019 19:15 Zoss, AprilBolus: : Bolus 500 Kiritrin, Denver R.N.mL, then 150 mL/hr M.D.;(X1)Ativan PO 1 mg 20:12 05/07/2019 20:14 Zoss, Latonya Denver Arreaga R.N. M.DPadma;GENERAL ORDERSOrder Description Priority Entered Acknowledged InitialedBlood Pressure 19:05/07/2019 19:05 Denver Bartholomew RN, M.D.;Tank Maker Wood 19:05/07/2019 19:05 Lloyd(continuous) Denver Arregaa RN, M.D.; 3 OrderSheet [facility] Emergency Department [address] [place] [address] Phone #: ext- [phone] 05/07/2019 18:37 Patient: DONNY FAITH Sex: M : 1955 Age: 64yEKG 19:05/07/2019 19:05 Denver Vazquez RN, M.D.;NPO 19:05/07/2019 19:05 Denver Vazquez RN, M.D.;Obtain Old EKG 19:05/07/2019 19:12 Santiago, Denver Capellan R.N., M.D.;Obtain Old Records 19:05/07/2019 19:12 Latonya Henderson Riccardo R.N. M.D.;Oxygen (3 L/min) 19:05/07/2019 19:12 Latonya Henderson(NC) (Titrate to O2 Denver Arreaga R.N.Sat >92%) Bubba;Oxygen titrate to 19:05/07/2019 19:12 Latonya Henderson92% Denver Arreaga R.N., M.D.;Pulse oximeter 19:05/07/2019 19:05 Lloyd(Continuous) Denver Arreaga RN, M.D.;Saline Lock 19:05/07/2019 19:05 Denver Vazquez RN, M.D.;Vitals 19:05/07/2019 19:05 Denver Vazquez RN, M.D.;[Electronically signed by Latonya Henderson R.N. (20:31 05/07/2019)][Electronically signed by Denver Arreaga M.D. (20:59 05/07/2019)][Electronically locked by Latonya Henderson R.N. (20:31 05/07/2019)] Name Value Range Interpretation Code Description Data Raquel rce(s) Supporting Document(s) ID Date Data Source [id number] 05/07/2019 06:37:00 PM EST [facility] 1 Medication Reconciliation Report [facility] Emergency Department [address] [place] [address] Phone #: ext- [phone] 05/07/2019 18:37 Patient: DONNY FAITH Sex: M : 1955 Age: 64yWeight: 75.2 kgHeight/Length: 68 in.BMI: 25.2ALLERGIES: Acetaminophen, Benadryl, Muse, Motrin, Paxil, Penicillins, ThorazineThe patient's Home Medications are listed below:CONTINUE TAKING THE FOLLOWING MEDICATIONS: Advair Diskus Inhalation (500-50 mcg/dose) 1 inhalation, 2x a day Advocate Insulin Pen Granby Aspir-81 Oral (81 mg) 1 tablet, daily Basaglar 20 unita, at bedtime [facility] Claritin Oral (5 mg) 1 tablet, daily, at bedtime Crestor Oral (5 mg) 1 tablet, daily, at bedtime Dilantin Oral DiltiaZEM HCl ER Coated Beads Oral (240 mg) 1 capsule, daily Eliquis Oral (5 mg) 1 tablet, 2x a day Flexeril Oral 10 mg, 3x a day Gabapentin Oral (300 mg) 1 capsule, 3x a day Glimepiride Oral (4 mg) 1-1/2 tablets, 2x a day Incruse Ellipta Inhalation Keppra Oral (1000 mg) 1 tablet, 2x a day 2 Medication Reconciliation Report [facility] Emergency Department [address] [place] [address] Phone #: ext- [phone] 05/07/2019 18:37 Patient: DONNY FAITH Sex: M : 1955 Age: 64y NexIUM Oral 40 mg, daily ProAir HFA Inhalation PROzac Oral 10 mg, daily Ramipril Oral (1.25 mg) 1 capsule, daily Topamax Oral (100 mg) 1 tablet, 2x a day TraZODone HCl Oral 100 mg, daily, at bedtime Tylenol with Codeine #3 Oral, 2x a day Ventolin HFA Inhalation 2 puffs, q8h, sob, prn Z pack 1 tab day pt on day 3The source(s) of the original Home Medication information:Not obtained.The following Medications were given to the patient in the Emergency Department:NS [IV] IV Fluids bolus 500 mL over 30 minute(s), then 125 mL/hr, administered: 05/07/2019 7:15:00 PMSolu-Medrol [IVP] IVP 125 mg, administered: 05/07/2019 7:16:00 PMDuoneb [Neb Tx] Neb TX 1 unit dose, administered: 05/07/2019 7:18:00 PMAtivan [PO] PO 1 mg, administered: 05/07/2019 8:14:00 PMThe following Medications were prescribed to the patient:prednisone 20 mg tablet Take 2 tablet once a day for 5 days -- Dispense 10 tablet. Refills: 0.Substitution permitted.Pharmacy - [facility] [place] [address]. .Tessalon Perles 100 mg capsule Take 1 capsule three times a day for 5 days -- Dispense 15 capsule.Refills: 1. Substitution permitted.Pharmacy - [facility]- [address] ; [place] [address]. . -- Denver Arreaga M.D. Name Value Range Interpretation Code Description Data Raquel rce(s) Supporting Document(s) ID Date Data Source [id number] 05/07/2019 06:37:00 PM [facility] 1 Medication Administration Record [facility] Emergency Department [address] [place] [address] Phone #: ext- [phone] 05/07/2019 18:37 Patient: DONNY FAITH Sex: M : 1955 Age: 64yWeight: 75.2 kgHeight/Length: 68 inBMI: 25.2ALLERGIES: Acetaminophen, Benadryl, Muse, Motrin, Paxil, Penicillins, Thorazine Date/Time Medication Administered Medication OrderedGiven DUONEB [NEB TX] DuoNeb Neb Tx 3 mL19:18 05/07/2019 Dose: 1 unit dose Neb TXZoss, July, R.N.Given SOLU-MEDROL [IVP] SOLU-Medrol 125 mg IV X1 Dose:19:16 05/07/2019 (METHYLPREDNISOLONE SODIUM 125 mg (X1)Zopadmini, July, R.N. SUCC) Dose: 125 mg IVP Site: #1 right upper armStart NS [IV] NS IV 500 mL Bolus: : Bolus 20227:15 05/07/2019 Dose: IV Fluids mL, then 150 mL/hr (X1)Zopadmini, July, R.N. Rate: 125 mL/hr---- Bolus: 500 mL over 30 minute(s)Stop Dispensed: 1000 mL bag20:15 05/07/2019 Site: #1 right upper armZoss, Latonya, R.N.Given ATIVAN [PO] (LORAZEPAM) Ativan PO 1 mg20:14 05/07/2019 Dose: 1 mg POZoss, Latonya, R.N. Name Value Range Interpretation Code Description Data Raquel rce(s) Supporting Document(s) ID Date Data Source [id number] 05/07/2019 06:37:00 PM [facility] 1 General Instructions [facility] Emergency Department [address] [place] [address] Phone #: ext- [phone] 05/07/2019 18:37 [id number] Sex[facility] M : 1955 Age: 64y Acute viral bronchitis associated with chronic obstructive pulmonary disease. No viral (influenza) bronchitis. Acute exacerbation of COPD (emphysematous)INSTRUCTIONS Do not smoke. Warnings: Further evaluation is necessary. It is very important to follow up with a healthcare provider. GENERAL WARNINGS: Return or contact your physician immediately if your condition worsens or changes unexpectedly, if not improving as expected, or if other problems arise. SPECIFICALLY, return if you develop chest pain, neck pain, jaw pain, shoulder pain, arm pain, back pain, fever, productive cough, difficulty breathing, excessive fatigue, a fluttering sensation in the chest, fainting or leg swelling. Your Current Medications: Your current home medications have been reviewed. CONTINUE TAKING THE FOLLOWING MEDICATIONS: Advair Diskus Inhalation : Aerosol Powder Breath Activated 500-50 mcg/dose, 1 inhalation 2x a day. Advocate Insulin Pen Granby*. Aspir-81 Oral : Tablet Delayed Release 81 mg, 1 tablet daily. Basaglar* : 20 unita, at bedtime. [facility]*. Claritin Oral : Tablet Chewable 5 mg, 1 tablet daily, at bedtime. Crestor Oral : Tablet 5 mg, 1 tablet daily, at bedtime. Dilantin Oral. DiltiaZEM HCl ER Coated Beads Oral : Capsule Extended Release 24 Hour 240 mg, 1 capsule daily. Eliquis Oral : Tablet 5 mg, 1 tablet 2x a day. Flexeril Oral : 10 mg 3x a day. Gabapentin Oral : Capsule 300 mg, 1 capsule 3x a day. Glimepiride Oral : Tablet 4 mg, 1-1/2 tablets 2x a day. Incruse Ellipta Inhalation. Keppra Oral : Tablet 1000 mg, 1 tablet 2x a day. NexIUM Oral : 40 mg daily. ProAir HFA Inhalation. PROzac Oral : 10 mg daily. Ramipril Oral : Capsule 1.25 mg, 1 capsule daily. Topamax Oral : Tablet 100 mg, 1 tablet 2x a day. TraZODone HCl Oral : 100 mg daily, at bedtime. Tylenol with Codeine #3 Oral : 2x a day. Ventolin HFA Inhalation : 2 puffs q8h, prn, sob. 2 General Instructions [facility] Emergency Department [address] [place] [address] Phone #: ext- [phone] 05/07/2019 18:37 Patient: DONNY FAITH Sex: M : 1955 Age: 64yZ pack 1 tab day pt on day 3*.Prescription Medications:prednisone 20 mg tablet Take 2 tablet once a day for 5 days -- Dispense 10 tablet. Refills: 0.Substitution permitted.Pharmacy - [facility]- [address] ; [place] [address]. .Tessalon Perles 100 mg capsule Take 1 capsule three times a day for 5 days -- Dispense 15 capsule.Refills: 1. Substitution permitted.Pharmacy - [facility] ; [place] [address]. .Follow-up:Return to the emergency department as needed. Follow up with your healthcare provider in two dayseven if well. Call for an appointment. Reason for referral: evaluation and treatment. Summary of careprovided to patient via paper.Understanding of the discharge instructions verbalized by patient. Expected course of illness, dischargeinstructions, activity level, diet, prescriptions x2, follow-up appointment and risks and benefits of treatmentreviewed with patient and understanding verbalized. Agrees to plan of care. ADDITIONAL INFORMATIONViral Bronchitis (Adult) 3 General Instructions [facility] Emergency Department [address] [place] [address] Phone #: ext- [phone] 05/07/2019 18:37 Patient: DONNY FAITH Sex: M : 1955 Age: 64yYou have a viral bronchitis. Bronchitis is inflammation and swelling of the lining of the lungs. This isoften caused by an infection. Symptoms include a dr y, hacking cough that is worse at night. Thecough may bring up yellow-green mucus. You may also feel short of breath or wheeze. Othersymptoms may include tiredness, chest discomfort, and chills.Bronchitis that is caused by a virus is not treated with antibiotics. Instead, medicines may be given tohelp relieve symptoms. Symptoms can last up to 2 weeks, although the cough may last much longer.This illness is contagious during the first few days and is spread through the air by coughing andsneezing, or by direct contact (touching the sick person and then touching your own eyes, nose, ormouth).Most viral illnesses resolve within 10 to 14 days with rest and simple home remedies, although theymay sometimes last for several weeks.Home care If symptoms are severe, rest at home for the first 2 to 3 days. When you go back to your usual 4 General Instructions [facility] Emergency Department [address] [place] [address] Phone #: ext- [phone] 05/07/2019 18:37 Patient: DONNY FAITH Sex: M : 1955 Age: 64y activities, don't let yourself get too tired. Do not smoke. Also avoid being exposed to secondhand smoke. You may use gojw-suf-zloahad medicine to control fever or pain, unless another pain medicine was prescribed. If you have chronic liver or kidney disease or have ever had a stomach ulcer or gastrointestinal bleeding, talk with your healthcare provider before using these medicines. Also talk to your provider if you are taking medicine to prevent blood clots. Aspirin should never be given to anyone younger than 18 years of age who is ill with a viral infection or fever. It may cause severe liver or brain damage. Your appetite may be poor, so a light diet is fine. Avoid dehydration by drinking 6 to 8 glasses of fluids per day (such as water, soft drinks, sports drinks, juices, tea, or soup). Extra fluids will help loosen secretions in the nose and lungs. Cmhb-eli-safsxah cough, cold, and sore-throat medicines will not shorten the length of the illness, but they may help to reduce symptoms. Don't use decongestants if you have high blood pressure.Follow-up careFollow up with your healthcare provider, or as advised. If you had an X-ray or ECG(electrocardiogram), a specialist will review it. You will be notified of any new findings that may affectyour care.If you are age 65 or older, or if you have a chronic lung disease or condition that affects your immunesystem, or you smoke, ask your healthcare provider about getting a pneumococcal vaccine and ayearly flu shot (influenza vaccine).When to seek medical adviceCall your healthcare provider right away if any of these occur: Fever of 100.4F (38C) or higher, or as directed by your healthcare provider Coughing up increased amounts of colored sputum Weakness, drowsiness, headache, facial pain, ear p ain, or a stiff neckCall 911Call 911 if any of these occur: Coughing up blood Worsening weakness, drowsiness, headache, or stiff neck 5 General Instructions [facility] Emergency Department [address] [place] [address] Phone #: [phone] [phone]- [phone] 05/07/2019 18:37 Patient: DONNY FAITH Sex: M : 1955 Age: 64y Trouble breathing, wheezing, or pain with breathing [id number] [employer]. [address] [place] [address]. All rights reserved. This information is not intended as asubstitute for professional medical care. Always follow your healthcare professional's instructions.COPD FlareYou have had a flare-up of your COPD.COPD, or chronic obstructive pulmonary disease, is a common lung disease. It causes your airwaysto become irritated and narrower. This makes it harder for you to breathe. Emphysema and chronicbronchitis are both types of COPD. This is a chronic condition, which means you always have it.Sometimes it gets worse. When this happens, it is called a flare-up.Symptoms of COPDPeople with COPD may have symptoms most of the time. In a flare-up, your symptoms get worse.These symptoms may mean you are having a flare-up: 6 General Instructions [facility] Emergency Department [address] [place] [address] Phone #: ext- [phone] 05/07/2019 18:37 Patient: DONNY FAITH Sex: M : 1955 Age: 64y Shortness of breath, shallow or rapid breathing, or wheezing that gets worse Lung infection Cough that gets worse More mucus, thicker mucus or mucus of a different color Tiredness, decreased energy, or trouble doing your usual activities Fever Chest tightness Your symptoms don't get better even when you use your usual medicines, inhalers, and nebulizer Trouble talking You feel confusedCauses of flare-upsUnfortunately, a flare- up can happen even though you did everything right, and you followed yourdoctor's instructions. Some causes of flare-ups are: Smoking or second hand smoke Colds, the flu, or respiratory infections Air pollution Sudden change in the weather Dust, irritating chemicals, or strong fumes Not taking your medicines as prescribedHome careHere are some things you can do at home to treat a flare-up: Try not to panic. This makes it harder to breathe, and keeps you from doing the right things. Don't smoke or be around others who are smoking. Try to drink more fluids than usual during a flare- up, unless your doctor has told you not to because of heart and kidney problems. More fluids can help loosen the mucus. Use your inhalers and nebulizer, if you have one, as you have been told to. 7 General Instructions [facility] Emergency Department [address] [place] [address] Phone #: ext- [phone] 05/07/2019 18:37 Patient: DONNY FAITH Sex: M : 1955 Age: 64y If you were given antibiotics, take them until they are used up or your doctor tells you to stop. It's important to finish the antibiotics, even though you feel better. This will make sure the infection has cleared. If you were given prednisone or another steroid, finish it even if you feel better.Preventing a flare-upEven though flare-ups happen, the best way to treat one is to prevent it before it starts. Here aresome pointers: Don't smoke or be around others who are smoking. Take your medicines as you have been told. Talk with your doctor about getting a flu shot every year. Also find out if you need a pneumonia shot. If there is a weather advisory warning to stay indoors, try to stay inside when possible. Try to eat healthy and get plenty of sleep. Try to avoid things that usually set you off, like dust, chemical fumes, hairsprays, or strong perfumes.Follow-up careFollow up with your healthcare provider, or as advised.If a culture was done, you will be told if your treatment needs to be changed. You can call asdirected for the results.If X-rays were done, you will be notified of any new findings that may affect your care.Call [phone] if any of these occur: You have trouble breathing You feel confused or it's difficult to wake you up You faint or lose consciousness You have a rapid heart rate You have new pain in your chest, arm, shoulder, neck or upper back 8 General Instructions [facility] Emergency Department [address] [place] [address] Phone #: ext- [phone] 05/07/2019 18:37 Patient: DONNY FAITH Sex: M : 1955 Age: 64yWhen to seek medical adviceCall your healthcare provider right away if any of these occur: Wheezing or shortness of breath gets worse You need to use your inhalers more often than usual without relief Fever of 100.4F (38C) or higher, or as directed by your healthcare provider Coughing up lots of dark-colored or bloody mucus (sputum) Chest pain with each breath You do not start to get better within 24 hours Swelling of your ankles gets worse Dizziness or weakness [phone] [employer]. [address] [place] [address]. All rights reserved. This information is not intended as asubstitute for professional medical care. Always follow your healthcare professional's instructions.Viral Bronchitis (Adult) 9 General Instructions [facility] Emergency Department [address] [place] [address] Phone #: ext- [phone] 05/07/2019 18:37 Patient: DONNY FAITH Sex: M : 1955 Age: 64yYou have a viral bronchitis. Bronchitis is inflammation and swelling of the lining of the lungs. This isoften caused by an infection. Symptoms include a dry, hacking cough that is worse at night. Thecough may bring up yellow-green mucus. You may also feel short of breath or wheeze. Othersymptoms may include tiredness, chest discomfort, and chills.Bronchitis that is caused by a virus is not treated with antibiotics. Instead, medicines may be given tohelp relieve symptoms. Symptoms can last up to 2 weeks, although the cough may last much longer.This illness is contagious during the first few days and is spread through the air by coughing andsneezing, or by direct contact (touching the sick person and then touching your own eyes, nose, ormouth).Most viral illnesses resolve within 10 to 14 days with rest and simple home remedies, although theymay sometimes last for several weeks.Home care If symptoms are severe, rest at home for the first 2 to 3 days. When you go back to your usual [address] [facility] Emergency Department [address] [place] [address] Phone #: [phone] [id number]- [phone] 05/07/2019 18:37 [id number] Sex[facility] : 1955 Age: 64y activities, don't let yourself get too tired. Do not smoke. Also avoid being exposed to secondhand smoke. You may use vqxc-lol-ecsvpup medicine to control fever or pain, unless another pain medicine was prescribed. If you have chronic liver or kidney disease or have ever had a stomach ulcer or gastrointestinal bleeding, talk with your healthcare provider before using these medicines. Also talk to your provider if you are taking medicine to prevent blood clots. Aspirin should never be given to anyone younger than 18 years of age who is ill with a viral infection or fever. It may cause severe liver or brain damage. Your appetite may be poor, so a light diet is fine. Avoid dehydration by drinking 6 to 8 glasses of fluids per day (such as water, soft drinks, sports drinks, juices, tea, or soup). Extra fluids will help loosen secretions in the nose and lungs. Akjw-gak-ivgazje cough, cold, and sore-throat medicines will not shorten the length of the illness, but they may help to reduce symptoms. Don't use decongestants if you have high blood pressure.Follow-up careFollow up with your healthcare provider, or as advised. If you had an X-ray or ECG(electrocardiogram), a specialist will review it. You will be notified of any new findings that may affectyour care.If you are age 65 or older, or if you have a chronic lung disease or condition that affects your immunesystem, or you smoke, ask your healthcare provider about getting a pneumococcal vaccine and ayearly flu shot (influenza vaccine).When to seek medical adviceCall your healthcare provider right away if any of these occur: Fever of 100.4F (38C) or higher, or as directed by your healthcare provider Coughing up increased amounts of colored sputum Weakness, drowsiness, headache, facial pain, ear pain, or a stiff neckCall 911Call 911 if any of these occur: Coughing up blood Worsening weakness, drowsiness, headache, or stiff neck 11 General Instructions [facility] Emergency Department [address] [place] [address] Phone #: jov- [phone] 05/07/2019 18:37 Patient: DONNY FAITH Sex: M : 1955 Age: 64y Trouble breathing, wheezing, or pain with breathing [id number] [employer]. [address] [place] [address]. All rights reserved. This information is not intended as asubstitute for professional medical care. Always follow your healthcare professional's instructions. You have been given the following additional information: Bronchitis, No Antibiotic (Adult) COPD Flare Bronchitis, No Antibiotic (Adult )(Electronically signed by Denver Arreaga M.D. 05/07/2019 20:59) Name Value Range Interpretation Code Description Data Raquel rce(s) Supporting Document(s) ID Date Data Source [id number] 05/07/2019 06:37:00 PM [facility] 1 Clinical Report - Nurses [facility] Emergency Department [address] [place] [address] Phone #: ext- [phone] 05/07/2019 18:37 Patient: DONNY FAITH Sex: M : 1955 Age: 64yTRIAGE Arrived by EMS. Historian: patient. Acuity: LEVEL 3. Chief Complaint: SHORTNESS OF BREATH and DIFFICULTY BREATHING. Onset. (3 days ago). ( Per pt and EMS, they state pt began to have dyspnea which started about 3 days ago and has progressed to this day, pt voices some nausea yesterday and none today). EMS Treatment CAFE ASSOCIATE: EMS treatment verbally communicated and report reviewed. See report. SEPSIS SCREEN: NEGATIVE heart rate greater than 90. SOBIA COMA SCORE: 15- eyes open- spontaneous (4); best verbal response- oriented (5); best motor response- obeys commands (6). --18:45 05/07/19 Lloyd Dixon RN 18:38 05/07/19. BP: 93/67. MAP: 75. HR: 118. RR: 20. O2 saturation: 99% on nasal cannula at 2 liters/minute. Temp: 97.9 F (oral). Pain level now: 01/22. --18:45 05/07/19 Lloyd Dixon RN. Weight: 75.2 kg measured. Height/Length: 68 inches Per Patient. BMI: 25.2. --18:38 05/07/19 Lloyd Dixon RN. Medications Advair Diskus Inhalation (Aerosol Powder Breath Activated 500-50 mcg/dose) 1 inhalation, 2x a day. Advocate Insulin Pen [place]. Aspir-81 Oral (Tablet Delayed Release 81 mg) 1 tablet, daily. Basaglar 20 unita, at bedtime. [facility]. Claritin Oral (Tablet Chewable 5 mg) 1 tablet, daily at bedtime. --18:40 05/07/19 Lloyd Dixon RN Crestor Oral (Tablet 5 mg) 1 tablet, daily at bedtime. --18:40 05/07/19 Lloyd Dixon RN Dilantin Oral. DiltiaZEM HCl ER Coated Beads Oral (Capsule Extended Release 24 Hour 240 mg) 1 capsule, daily. Eliquis Oral (Tablet 5 mg) 1 tablet, 2x a day. Flexeril Oral 10 mg, 3x a day. Gabapentin Oral (Capsule 300 mg) 1 capsule, 3x a day. Glimepiride Oral (Tablet 4 mg) 1-1/2 tablets, 2x a day. Incruse Ellipta Inhalation. Keppra Oral (Tablet 1000 mg) 1 tablet, 2x a day. NexIUM Oral 40 mg, daily. ProAir HFA Inhalation. 2 Clinical Report - Nurses [facility] Emergency Department [address] [place] [address] Phone #: ext- [phone] 05/07/2019 18:37 Patient: DONNY FAITH Sex: M : 1955 Age: 64yPROzac Oral 10 mg, daily.Ramipril Oral (Capsule 1.25 mg) 1 capsule, daily.Topamax Oral (Tablet 100 mg) 1 tablet, 2x a day.TraZODone HCl Oral 100 mg, daily at bedtime.Tylenol with Codeine #3 Oral, 2x a day.Ventolin HFA Inhalation 2 puffs, q8h as needed, sob.Z pack 1 tab day pt on day 3. --18:40 05/07/19 Lloyd Dixon RN.AllergiesAcetaminophen.Benadryl.Muse.Motrin.Paxil.Penicillins.Thorazine. --18:40 05/07/19 Lloyd Dixon RN.HistoryPAST MEDICAL HX: Immunizations: up-to-date.SOCIAL HX: Heavy tobacco smoker (cigarette)- more than 2 packs per day. Occasional alcohol use;consumes liquor drinks. History of occasional drug use: marijuana. He was offered HIV testing butdeclined and hepatitis C testing but declined. He has not traveled outside the [place]Infectious disease exposure: No infectious disease exposure.SELF HARM ASSESSMENT: Self harm assessment was performed. The patient answered "no" to thequestion(s) "Have you recently felt down, depressed, or hopeless?", "Do you have thoughts of harming orkilling yourself?", "Do you have a plan for harming or killing yourself?", "Have you recently had thoughtsabout harming or killing others?", "Do you have any dangerous items in your possession?", "Have younoticed less interest or pleasure in doing things?", "Are you here because you tried to hurt yourself?" and"Have you ever tried to hurt yourself before today?".ABUSE ASSESSMENT: No report of abuse.NUTRITIONAL RISK ASSESSMENT: The nutritional risk assessment revealed no deficiencies.LEARNING NEEDS ASSESSMENT: The learning needs assessment revealed no barriers.FALL RISK ASSESSMENT: Fall risk assessment completed. No risk factors identified.FUNCTIONAL ASSESSMENT: Functional assessment performed: uses walker.SKIN INTEGRITY ASSESSMENT: Skin integrity risk assessment completed. No skin integrity riskidentified. --18:45 05/07/19 Lloyd Dixon RN. 3 Clinical Report - Nurses [facility] Emergency Department [address] [place] [address] Phone #: [phone] ext- [phone] 05/07/2019 18:37 Patient: DONNY FAITH Sex: M : 1955 Age: 64y Interventions To treatment room. --18:45 05/07/19 Lloyd Dixon RN.PHYSICAL ASSESSMENT GENERAL / NEURO / PSYCH: Alert. Oriented X 4. Appears in no acute distress. HEENT: Mucous membranes are pink. RESPIRATORY: No respiratory distress. Decreased breath sounds in the bases bilaterally. CVS: Capillary refill less than 2 seconds. GI / : Bowel sounds within normal limits. SKIN: Skin is warm and dry. Normal skin turgor. --19:20 05/07/19 Latonya Henderson R.N.NURSING PROGRESS NOTES 18:57 05/07/2019 Site #1 started via IV in the right upper arm with an 18g angiocath, with aseptic technique and good blood return; one attempt. Saline lock flushed with 10 mL saline. --18:57 05/07/19 Lloyd Dixon RN EKG time: (18:52 05/07/2019). EKG was performed by a tech and shown to the ED physician. --18:59 05/07/19 [place] centrifugal supervisor, Rk, ZINA Tech1 Oxygen administered by nasal cannula at 2 liters. conveyor monitor, pulse oximeter and NIBP monitor placed on patient; monitor alarms on; monitor strip added to paper chart. Patient gowned. Head of bed elevated. Reassurance given. Call light placed in reach. Side rails up x 2. Bed placed in lowest position. Brakes of bed on. Patient ready for evaluation- ED physician notified. --19:06 05/07/19 Lloyd Dixon RN 19:14 05/07/19. ( lab at bedside drawing blood. flu swab done and sent to lab with factory laborer.). --19:19 05/07/19 Santiago LatonyaDustin 19:15 05/07/2019 Started bag #1 1000 mL IV Fluids NS; bolus of 500 mL over 30 minute(s) then at 125 mL/hr via site #1 via IV pump. Allergies verified and confirmed 5 rights. IV patency established. IV site checked: no pain, redness, or swelling. IV flushed thoroughly pre- and post-medication administration. Information reviewed with patient including reason for taking this medication. Verbalizes understanding. --19:15 05/07/19 Latonya Henderson R.NPadma 19:16 05/07/2019 Solu-Medrol (methylPREDNISolone Sodium Succ) IVP 125 mg given via site #1. Allergies verified and confirmed 5 rights. IV patency established. IV site checked: no pain, redness, or swelling. IV flushed thoroughly pre- and post- medication administration. IVP given by RN. Information reviewed with patient including reason for taking this medication. Verbalizes understanding. --19:16 05/07/19 Latonya Henderson R.N. 19:18 05/07/2019 Mariola Doran [place] 1 unit dose given. Given by the nurse. Allergies verified and confirmed 5 rights. Information reviewed with patient including reason for taking this medication. Verbalizes understanding. --19:18 05/07/19 Latonya Henderson R.N. 4 Clinical Report - Nurses [facility] Emergency Department [address] [place] [address] Phone #: ext- [phone] 05/07/2019 18:37 Patient: DONNY FAITH Sex: M : 1955 Age: 64y ( pt sitting in bed, nad, vss, monitors in place, side rails up x2, call light in reach, asking for pain meds, will make doc aware.). --20:00 05/07/19 Latonya Hnederson R.N. 19:59 05/07/19. BP: 124/70. MAP: 88. HR: 105. RR: 22. O2 saturation: 95%. --20:00 05/07/19 Latonya Henderson R.N. 20:14 05/07/2019 Ativan (LORazepam) PO 1 mg given. Allergies verified and confirmed 5 rights. Information reviewed with patient including reason for taking this medication and sedative warning. Verbalizes understanding. --20:14 05/07/19 Latonya Henderson R.N. 20:14 05/07/19. BP: 142/79. MAP: 100. HR: 106. RR: 22. O2 saturation: 99%. Pain level now: 0/10. --20:14 05/07/19 Latonya Henderson R.N. Intake Output Urine output: 475 mL measured, voided with return of yellow- colored clear urine. --18:52 05/07/19 Lloyd Dixon RN.DISPOSITION / DISCHARGE Condition at departure: improved and stable. --20:15 05/07/19 Latonya Henderson R.N. 20:14 05/07/19. BP: 142/79. MAP: 100. HR: 105. RR: 22. O2 saturation: 97%. Temp: 97.1 F (oral). Pain level now: 0/10. --20:15 05/07/19 Latonya Henderson R.N. 20:15 05/07/2019 IV Fluids NS via IV site #1 Discontinued: bag #1 STOPPED upon discharge. Total amount infused: 500 mL. IV patency established. IV site checked: no pain, redness, or swelling. IV flushed thoroughly. --20:16 05/07/19 Latonya Henderson R.N. 20:19 05/07/2019 Site #1 removed upon discharge. Catheter intact. Bandaid applied. --20:19 05/07/19 Latonya Henderson R.N. No learning barriers present. Reviewed medication(s). Treatments reviewed. Patient verbalized understanding. Written instructions provided in Bahamian. The patient was discharged by the physician. He was discharged home. He left ambulatory a nd via taxi. 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 --20:30 05/07/19 Latonya Henderson R.N. ( delvin provided, pt waiting on medicaid cab to go home.). --20:31 05/07/19 Latonya Henderson R.N.Locked/Released at 05/07/2019 20:31 by Latonya Henderson R.N. 5 Clinical Report - Nurses [facility] Emergency Department [address] [place] [address] Phone #: ext- [phone] 05/07/2019 18:37 Patient: DONNY FAITH Sex: M : 1955 Age: 64y Name Value Range Interpretation Code Description Data Raquel rce(s) Supporting Document(s) ID Date Data Source [id number] 05/07/2019 06:37:00 PM [facility] 1 Clinical Report - Physicians/Mid Levels [facility] Emergency Department [address] [place] [address] Phone #: ext- [phone] 05/07/2019 18:37 Patient: DONNY FAITH Sex: M : 1955 Age: 64y Time Seen: 18:41 05/07/2019; initial patient contact. Arrived- By ambulance. Historian- patient. Disposition decision: 20:14 05/07/2019.HISTORY OF PRESENT ILLNESS Chief Complaint: DYSPNEA and HISTORY OF CHRONIC OBSTRUCTIVE PULMONARY DISEASE. This started yesterday and is still present but is improving. It has been intermittent. The dyspnea is described as mild and is described as moderate and is worsened by cough, is improved by rest, is improved with oxygen and is improved with sitting upright. The patient has had a moderate dry cough. No sputum production, fever, chills, calf pain or foot swelling. He has experienced mild sweating episodes and had mild wheezing and anxiety. He has had mild, sharp, pleuritic central chest pain associated with shortness of breath. No radiation. He has had central chest soreness. (vomiting last night). Similar symptoms previously. Patient has had similar symptoms many times. Recent medical care: Not recently seen/assessed.REVIEW OF SYSTEMSThe patient has had a nasal discharge, sinus drainage and mild nausea but not had weight loss. Nomuscle aches, eye irritation, sore throat, abdominal pain or diarrhea. No black stools, bloody stools,headache, fainting episodes or blurred vision. No difficulty with urination, excessive urination, skin rash,enlarged lymph nodes or joint pain. The patient has had mild vomiting (yesterday). The vomiting hasoccurred twice. All other systems reviewed and are negative.PAST HISTORYSee nurses notes. Emphysema. Problems: CVA - Cerebrovascular Accident. COPD - Chronic Obstructive Pulmonary Disease. Diabetes Mellitus Type 2. Dementia. Arrhythmia. Chest Wall Pain. Parkinson's Disease. Seizure. Sleep Apnea. NE. Heart Disease. Hypercholesterolemia. 2 Clinical Report - Physicians/Mid Levels [facility] Emergency Department [address] [place] [address] Phone #: ext- [phone] 05/07/2019 18:37 Patient: DONNY FAITH Sex: M : 1955 Age: 64y Hypertension. Additional Surgeries: Appendectomy. Cholecystectomy. Medications: Dilantin Oral. DiltiaZEM HCl ER Coated Beads Oral (Capsule Extended Release 24 Hour 240 mg) 1 capsule, daily. Eliquis Oral (Tablet 5 mg) 1 tablet, 2x a day. Flexeril Oral 10 mg, 3x a day. Gabapentin Oral (Capsule 300 mg) 1 capsule, 3x a day. Glimepiride Oral (Tablet 4 mg) 1-1/2 tablets, 2x a day. Incruse Ellipta Inhalation. Keppra Oral (Tablet 1000 mg) 1 tablet, 2x a day. NexIUM Oral 40 mg, daily. ProAir HFA Inhalation. PROzac Oral 10 mg, daily. Ramipril Oral (Capsule 1.25 mg) 1 capsule, daily. Topamax Oral (Tablet 100 mg) 1 tablet, 2x a day. TraZODone HCl Oral 100 mg, daily at bedtime. Tylenol with Codeine #3 Oral, 2x a day. Ventolin HFA Inhalation 2 puffs, q8h as needed, sob. Z pack 1 tab day pt on day 3. Crestor Oral (Tablet 5 mg) 1 tablet, daily at bedtime. Advair Diskus Inhalation (Aerosol Powder Breath Activated 500-50 mcg/dose) 1 inhalation, 2x a day. Advocate Insulin Pen [place]. Aspir-81 Oral (Tablet Delayed Release 81 mg) 1 tablet, daily. Basaglar 20 unita, at bedtime. [facility]. Claritin Oral (Tablet Chewable 5 mg) 1 tablet, daily at bedtime. Allergies: Acetaminophen. Benadryl. Muse. Motrin. Paxil. Penicillins. Thorazine.SOCIAL HISTORYHeavy tobacco smoker- 1-2 packs per day. No alcohol use or drug use.ADDITIONAL NOTES 3 Clinical Report - Physicians/Mid Levels [facility] Emergency Department [address] [place] [address] Phone #: ext- [phone] 05/07/2019 18:37 Patient: DONNY FAITH Sex: M : 1955 Age: 64y The nursing notes have been reviewed with agreement r egarding the chief complaint, HPI, ROS, PMH and patient medications and allergies.PHYSICAL EXAMVital Signs: 05/07/2019 18:38 BP: 93/67. MAP: 75. HR: 118. RR: 20. O2 saturation: 99% on nasal cannulaat 2 liters/minute. Temp: 97.9 F. Pain level now: 01/22. Have been reviewed. Oxygen saturation normal.Appearance: Alert. No acute distress. Anxious.Eyes: Pupils equal, round and reactive to light. Eyes normal inspection.ENT: Ears normal. Minimal, clear nasal discharge present. Nose normal. Pharynx normal. Uvulamidline.Neck: Normal inspection. No jugular venous distention. Neck supple.CVS: Tachycardia. Heart sounds normal. Pulses normal.Respiratory: No respiratory distress. Mildly decreased air movement in the bases bilaterally. Painlessinspiration. Expiratory mild bilateral wheezes in the bases.Abdomen: Soft and nontender. No organomegaly.Back: Normal inspection. No CVA tenderness.Skin: Skin warm and dry. Normal skin color. No rash. Normal skin turgor.Extremities: Extremities exhibit normal ROM. No lower extremity edema. No calf tenderness. No lowerextremity edema.Neuro: Oriented X 3. No motor deficit. No sensory deficit. Reflexes normal.LABS, X-RAYS, AND EKGEKG: No acute process. No acute ischemia. Tachycardia (116/min). Normal ST and T waves. NAD.EKG unchanged when compared with prior EKG. (Dec 16 2018). The study has been interpretedcontemporaneously by me. Artifact present. Interpretation time: 18:57 05/07/2019.Chest X-ray: No acute disease. Views: AP (portable). The X-rays were interpreted by the radiologist. Acomparison with prior films (12-16-2018). Interpretation time: 20:12 05/07/2019.Laboratory Tests: Laboratory tests have been ordered, with results reviewed and considered in themedical decision making process. Lactic Acid: (ROSARIO: 05/07/2019 19:15) ( [facility] 05/07/2019 19:33) Final results Test Result Flag Units (Reference) LACTIC ACID 2.0 MMOL/L (0.2 - 2.2) Venous Blood Gas: (ROSARIO: 05/07/2019 19:15) ( [facility] 05/07/2019 19:33) Final results Test Result Flag Units (Reference) pH V 7.44 H (7.32 - 7.43) pCO2 V 34.2 L mm/HG (38.0 - 51.0) pO2 V 128.9 H mm/HG (30.0 - 55.0) HCO3 V 22.8 meq/L (22.0 - 29.0) TCO2 V 23.9 meq/L (22.0 - 29.0) BASE EXCESS -0.6 (-2.0 - 2.0) O2 SAT V 99.0 H % (40.0 - 85.0) Influenza Nasal A B: (ROSARIO: 05/07/2019 19:15) ( [facility] 05/07/2019 19:41) Final results Test Result Flag Units (Reference) INFLUENZA A NEGATIVE (NORMAL: NEGAT INFLUENZA B NEGATIVE (NORMAL: NEGAT INFLUENZA A REENTER NEGATIVE (NORMAL: NEGAT INFLUENZA B REENTER NEGATIVE (NORMAL: NEGAT PROCEDURAL CONTROL VALID KIT LOT # [id number] Clinical Report - Physicians/Mid Levels [facility] Emergency Department [address] [place] [address] Phone #: ext- [phone] 05/07/2019 18:37 Patient: DONNY FAITH Sex: M : 1955 Age: 64y05/07/19.MISAEL. KIT EXP DATE _[id number] 74/23/20.MISAEL.The Influenza A utilizing an isothermal nucleic acid amplification technology for thequalitativedetection of influenza A and B viral RNA.Negative results do not preclude influenza virus infection and shouldnot beused as the sole basis for diagnosis, treatment or other patient managementdecisions.CBC w Diff: (ROSARIO: 05/07/2019 19:15) ( MsgRcvd 05/07/2019 19:27) Final results Test Result Flag Units (Reference) CBC W/AUTOMATED DIFF COMPLETE BLOOD COUNT WBC 10.5 10/uL (4.2 - 11.0) RBC 4.57 10/uL (4.50 - 6.30) HEMOGLOBIN 14.3 g/dL (14.0 - 16.0) HEMATOCRIT 40.8 L % (41.0 - 51.0) MCV 89.3 fL (80.0 - 94.0) MCH 31.3 pg (27.0 - 34.0) MCHC 35.0 g/dL (31.0 - 36.0) RDW 13.0 % (11.5 - 14.8) PLATELETS 207 10/uL (150 - 450) MPV 9.3 fL (7.4 - 10.4) NEUT 58.4 % (37.0 - 80.0) LYMPH 29.9 % (25.0 - 40.0) MONO 7.4 % (3.0 - 8.0) EOS 3.4 % ( 0.0 - 7.0) BASO 0.6 % (0.0 - 2.0) %IG 0.3 H % (0.0 - 0.0) %NRBC 0.0 % (0.0 - 0.0) #NEUT 6.12 10/uL (2.00 - 6.90) #LYMPH 3.13 10/uL (0.60 - 3.40) #MONO 0.78 10/uL (0.00 - 0.90) #EOS 0.36 10/uL (0.00 - 0.70) #BASO 0.06 10/uL (0.00 - 0.20) #IG 0.03 10/uL (0.00 - 0.10) #NRBC 0.00 10/uL (0.00 - 0.00) MANUAL DIFF NOT INDICATED RBC MORPH NOT INDICATEDCMP: (ROSARIO: 05/07/2019 19:15) ( MsgRcvd 05/07/2019 20:01) Final results Test Result Flag Units (Reference) COMPREHENSIVE METABOLIC PANEL COMPREHENSIVE METABOLIC PANEL SODIUM 134 mEq/L (134 - 153) POTASSIUM 3.9 mEq/L (3.6 - 5.0) CHLORIDE 97 L mEq/L (98 - 107) CO2 24 MEQ/L (22 - 30) GLUCOSE 336 H MG/DL (65 - 110) BUN 19 MG/DL (7 - 21) CREATININE 0.7 MG/DL (0.7 - 1.5) BUN/CREAT 27 (8 - 27) TOTAL PROTEIN 7.1 G/DL (6.3 - 8.2) ALBUMIN 4.5 G/DL (3.9 - 5.0) GLOBULIN 2.6 GM/DL (2.4 - 3.2) A/G RATIO 1.7 (0.8 - 2.0) CALCIUM 10. 0 MG/DL (8.4 - 10.2) TOTAL BILI 0.7 MG/DL (0.2 - 1.3) ALKALINE PHOS 89 U/L (38 - 126) SGOT/AST 14 U/L (5 - 40) SGPT/ALT 18 U/L (7 - 56) ANION GAP 13.0 mmol/L (8.0 - 16.0) AGE 64 yrs NON- AA GFR >60 mL/min AFR AMER GFR >60 mL/min Male GFR Interprentation 20-49 yrs >60 mL/min Ihrwom32-62 yrs >56 mL/min Normal 60 -69 yrs >49 mL/min Normal 70-79yrs>42 mL/min Normal 80 and above >35 mL/min Normal Female GFRInterpretation 20-39 yrs >60 mL/min Normal 40-49 yrs >58 mL/min 5 Clinical Report - Physicians/Mid Levels [facility] Emergency Department [address] [place] [address] Phone #: ext- [phone] 05/07/2019 18:37 Patient: DONNY FAITH Sex: M : 1955 Age: 64y Normal 50-59 yrs >51 mL/min Normal 60-69 yrs >45 mL/min Normal 70-79 yrs >39 mL/min Normal 80 and above >32 mL/min Normal Lipase: (ROSARIO: 05/07/2019 19:15) ( MsgRcvd 05/07/2019 19:58) Final results Test Result Flag Units (Reference) LIPASE 24 U/L (13 - 60) PT/PTT: (ROSARIO: 05/07/2019 19:15) ( MsgRcvd 05/07/2019 19:34) Final results Test Result Flag Units (Reference) PROTIME 13.9 SECONDS (11.0 - 15.5) INR 1.06 (0.93 - 1.23) PTT 30.5 SECONDS (24.8 - 36.7) \\BLDo\\INR INTERPRETATION\\BLDx\\ Therapeutic range for Coumadin and related oral anticoagulants. - International Normalized Ratio (INR): 2.0 - 3.0 for Venous Thrombosis, Pulmonary Embolus, Tissue heart valves, Acute NE Atrial Fibrillation, Valvular heart disease and recurrent Systemic Embolism. -International Normalized Ratio (INR): 2.5 - 3.5 for Mechanical Prosthetic valve. \\BLDo\\PTT INTERPRETATION\\BLDx\\ Critical results for patients not on therapy: >50 seconds Critical results for patients on therapy: >119 seconds Therapeutic range for patients on therapy: 58 - 90 seconds Coag studies from line draws may not be accurate due to Heparin and other interferences. Troponin-T: (ROSARIO: 05/07/2019 19:15) ( [facility] 05/07/2019 19:52) Final results Test Result Flag Units (Reference) TROPONIN T <0.01 NG/ML (0.00 - 0.10) TROPONIN T0.1 ng/ml Recommended as the clinical threshold value forTroponin T. D-Dimer: (ROSARIO: 05/07/2019 19:15) ( [facility] 05/07/2019 19:33) Final results Test Result Flag Units (Reference) D-DIMER QUANT 0.44 ug/mL (0.27 - 0.50) BNP: (ROSARIO: 05/07/2019 19:15) ( [facility] 05/07/2019 19:56) Final results Test Result Flag Units (Reference) BNP 6 PG/ML (0 - 125) Chest Portable 1 View: (ROSARIO: 05/07/2019 19:01) ( [facility] 05/07/2019 19:31) In Progress CHEST PORTABLE Reason(s): COPD TRANSPORTATION: P IV? O2? Oxygen?(Yes) Room: E.PROGRESS AND PROCEDURESCourse of Care: 20:13 05/07/19. workup all in as well as CXR result, and reviewed, all within nml limits; ptdoing markedly well, feeling back to nml, will d/c home w instructions. Patient counseled in person regarding the patient's stable condition, test results and diagnosis. Disposition: Condition: good and stable. Discharge decision based on the following: patient's condition is stable; patient's condition is improved; patient is ambulatory; patient is active; patient drinking fluids; patient's pain is controlled; patient's exam is improved; no abnormal test results; improving condition on repeat evaluation; social support is good; transportation is available; follow-up is available; clinical impression is consistent with outpatient treatment. 6 Clinical Report - Physicians/Mid Levels [facility] Emergency Department [address] [place] [address] Phone #: ext- [phone] 05/07/2019 18:37 Patient: DONNY FAITH Sex: M : 1955 Age: 64yCLINICAL IMPRESSION Acute viral bronchitis associated with chronic obstructive pulmonary disease. No viral (influenza) bronchitis. Acute exacerbation of COPD (emphysematous)INSTRUCTIONS Do not smoke. Warnings: Further evaluation is necessary. It is very important to follow up with a healthcare provider. GENERAL WARNINGS: Return or contact your physician immediately if your condition worsens or changes unexpectedly, if not improving as expected, or if other problems arise. SPECIFICALLY, return if you develop chest pain, neck pain, jaw pain, shoulder pain, arm pain, back pain, fever, productive cough, difficulty breathing, excessive fatigue, a fluttering sensation in the chest, fainting or leg swelling. Your Current Medications: Your current home medications have been reviewed. CONTINUE TAKING THE FOLLOWING MEDICATIONS: Adva ir Diskus Inhalation : Aerosol Powder Breath Activated 500-50 mcg/dose, 1 inhalation 2x a day. Advocate Insulin Pen [place]*. Aspir-81 Oral : Tablet Delayed Release 81 mg, 1 tablet daily. Basaglar* : 20 unita, at bedtime. [facility] Claritin Oral : Tablet Chewable 5 mg, 1 tablet daily, at bedtime. Crestor Oral : Tablet 5 mg, 1 tablet daily, at bedtime. Dilantin Oral. DiltiaZEM HCl ER Coated Beads Oral : Capsule Extended Release 24 Hour 240 mg, 1 capsule daily. Eliquis Oral : Tablet 5 mg, 1 tablet 2x a day. Flexeril Oral : 10 mg 3x a day. Gabapentin Oral : Capsule 300 mg, 1 capsule 3x a day. Glimepiride Oral : Tablet 4 mg, 1-1/2 tablets 2x a day. Incruse Ellipta Inhalation. Keppra Oral : Tablet 1000 mg, 1 tablet 2x a day. NexIUM Oral : 40 mg daily. ProAir HFA Inhalation. PROzac Oral : 10 mg daily. Ramipril Oral : Capsule 1.25 mg, 1 capsule daily. Topamax Oral : Tablet 100 mg, 1 tablet 2x a day. TraZODone HCl Oral : 100 mg daily, at bedtime. Tylenol with Codeine #3 Oral : 2x a day. Ventolin HFA Inhalation : 2 puffs q8h, prn, sob. Z pack 1 tab day pt on day 3*. 7 Clinical Report - Physicians/Mid Levels [facility] Emergency Department [address] [place] [address] Phone #: [phone] 05/07/2019 18:37 Patient: DONNY FAITH Sex: M : 1955 Age: 64y Prescription Medications: prednisone 20 mg tablet Take 2 tablet once a day for 5 days -- Dispense 10 tablet. Refills: 0. Substitution permitted. Pharmacy - [facility]- [address] [phone]. . Tessalon Perles 100 mg capsule Take 1 capsule three times a day for 5 days -- Dispense 15 capsule. Refills: 1. Substitution permitted. Pharmacy - [facility] [phone]. . Follow-up: Return to the emergency department as needed. Follow up with your healthcare provider in two days even if well. Call for an appointment. Reason for referral: evaluation and treatment. Summary of care provided to patient via paper. Understanding of the discharge instructions verbalized by patient. Expected course of illness, discharge instructions, activity level, diet, prescriptions x2, follow-up appointment and risks and benefits of treatment reviewed with patient and understanding verbalized. Agrees to plan of care.(Electronically signed by Denver Arreaga M.D. 05/07/2019 20:59) Name Value Range Interpretation Code Description Data Raquel rce(s) Supporting Document(s) ID Date Data Source [id number] 05/13/2019 10:07:00 PM [facility] Name Value Range Interpretation Code Description Data Raquel rce(s) Supporting Document(s) CULTURE BLOOD [facility] _CULTURE BLOOD_ TEST PERFORM ED AT [address] [address] CLIA# [id number] SEE SCANNED REPORT{ PRELIM ID Date Data Source [id number] 05/13/2019 09:45:00 AM [facility] [address] Name Value Range Interpretation Code Description Data Raquel rce(s) Supporting Document(s) Bacteria identified in Blood by Culture [facility] NO GROWTH AFTER 5 DAYS ID Date Data Source [id number] 05/13/2019 10:06:00 PM [facility] Name Value Range Interpretation Code Description Data Arquel rce(s) Supporting Document(s) CULTURE BLOOD [facility] _CULTURE BLOOD_ TEST PERFORM ED AT [address] [address] CLIA# [id number] SEE SCANNED REPORT{ PRELIM ID Date Data Source [id number] 05/07/2019 08:01:00 PM [facility] Name Value Range Interpretation Code Description Data Raquel rce(s) Supporting Document(s) COMPREHENSIVE METABOLIC PANEL [facility] COMPREHENSIVE METABOLIC PANEL Sodium [Moles/volume] in Serum or Plasma 134 mEq/L 134 - 153 [facility] Potassium [Moles/volume] in Serum or Plasma 3.9 mEq/L 3.6 - 5.0 [facility] Chloride [Moles/volume] in Serum or Plasma 97 mEq/L 98 - 107 L [facility] Carbon dioxide, total [Moles/volume] in Serum or Plasma 24 MEQ/L 22 - 30 [facility] Glucose [Mass/volume] in Serum or Plasma 336 MG/DL 65 - 110 H [facility] BUN 19 MG/DL 7 - 21 [facility] Creatinine [Mass/volume] in Serum or Plasma 0.7 MG/DL 0.7 - 1.5 [facility] BUN/CREAT 27 8 - 27 [facility] Protein [Mass/volume] in Serum or Plasma 7.1 G/DL 6.3 - 8.2 [facility] Albumin [Mass/volume] in Serum or Plasma 4.5 G/DL 3.9 - 5.0 [facility] Globulin [Mass/volume] in Serum by calculation 2.6 GM/DL 2.4 - 3.2 [facility] A/G RATIO 1.7 0.8 - 2.0 [facility] Calcium [Mass/volume] in Serum or Plasma 10.0 MG/DL 8.4 - 10.2 [facility] Bilirubin.total [Mass/volume] in Serum or Plasma 0.7 MG/DL 0.2 - 1.3 [facility] Alkaline phosphatase [Enzymatic activity/volume] in Serum or Plasma 89 U/L 38 - 126 [facility] Aspartate aminotransferase [Enzymatic activity/volume] in Serum or Plasma 14 U/L 5 - 40 [facility] Alanine aminotransferase [Enzymatic activity/volume] in Seru m or Plasma 18 U/L 7 - 56 [facility] Anion gap 3 in Serum or Plasma 13.0 mmol/L 8.0 - 16.0 [facility] AGE 64 yrs [facility] NON-AA GFR >60 mL/min [facility] ital AFR AMER GFR >60 mL/min [facility] Male GFR In terprentation 20-49 yrs >60 mL/min Normal 50-59 yrs >56 mL/min Normal 60-69 yrs >49 mL/min Normal 70-79yrs >42 mL/min Normal 80 and above >35 mL/min Normal Female GFR Interpretation 20-39 yrs >60 mL/min Normal 40-49 yrs >58 mL/min Normal 50-59 yrs >51 mL/min Normal 60-69 yrs >45 mL/min Normal 70-79 yrs >39 mL/min Normal 80 and above >32 mL/min Normal ID Date Data Source [id number] 05/07/2019 07:58:00 PM [facility] Name Value Range Interpretation Code Description Data Raquel rce(s) Supporting Document(s) Lipase [Enzymatic activity/volume] in Serum or Plasma 24 U/L 13 - 60 [facility] ID Date Data Source [id number] 05/07/2019 07:56:00 PM [facility] Name Value Range Interpretation Code Description Data Raquel rce(s) Supporting Document(s) BNP 6 PG/ML 0 - 125 [facility] ID Date Data Source [id number] 05/07/2019 07:51:00 PM [facility] Value Range Interpretation Code Description Data Raquel rce(s) Supporting Document(s) TROPONIN T <0.01 NG/ML 0.00 - 0.10 [facility] TROPONIN T0.1 ng/ml Recommended as the c linical threshold value forTroponin T. ID Date Data Source [id number] 05/07/2019 07:41:00 PM [facility] Value Range Interpretation Code Description Data Raqule rce(s) Supporting Document(s) Influenza virus A Ag [Presence] in Nasopharynx by Immunoassa y NEGATIVE NORMAL: NEGATIVE [facility] Influenza virus B Ag [Presence] in Nasopharynx by Immunoassa y NEGATIVE NORMAL: NEGATIVE [facility] NEGATIVENEGATIVE PROCEDURAL CO NTROL VALID KIT LOT # _[id number] 05/07/19.MISAEL. KIT EXP DATE _11-14-71 05/07/19.MISAEL.The Influenza A & B assay is a rapid molecular in vitro diagnostic testutilizing an isothermal nucleic acid amplification technology for thequalitative detection of influenza A and B viral RNA.Negative results do not preclude influenza virus infection and should not beused as the sole basis for diagnosis, treatment or other patient managementdecisions. ID Date Data Source [id number] 05/07/2019 07:34:00 PM [facility] Name Value Range Interpretation Code Description Data Raquel rce(s) Supporting Document(s) Prothrombin time (PT) 13.9 SECONDS 11.0 - 15.5 [facility] INR in Platelet poor plasma by Coagulation assay 1.06 0.93 - 1. 23 [facility] aPTT in Blood by Coagulation assay 30.5 SECONDS 24.8 - 36.7 [facility] \\BLDo\\INR INTERPRETATION\\BLDx\\ Therapeutic range for Coumadin and related oral anticoagulants. - International Normalized Ratio (INR): 2.0 - 3.0 for Venous Thrombosis, Pulmonary Embolus, Tissue heart valves, Acute NE Atrial Fibrillation, Valvular heart disease and recurrent Systemic Embolism. - International Normalized Ratio (INR): 2.5 - 3.5 for Mechanical Prosthetic valve. \\BLDo\\PTT INTERPRETATION\\BLDx\\ Critical results for patients not on therapy: >50 seconds Critical results for patients on therapy: >119 seconds Therapeutic range for patients on therapy: 58 - 90 seconds Coag apolonia dies from line draws may not be accurate due to Heparin and other interferences. ID Date Data Source [id number] 05/07/2019 07:33:00 PM [facility] Name Value Range Interpretation Code Description Data Raquel rce(s) Supporting Document(s) pH of Serum or Plasma 7.44 7.32 - 7.43 [facility] pCO2 V 34.2 mm/HG 38.0 - 51.0 L [facility] pO2 V 128.9 mm/HG 30.0 - 55.0 H [facility] Bicarbonate [Moles/volume] in Venous blood 22.8 meq/L 22.0 - 29.0 [facility] TCO2 V 23.9 meq/L 22.0 - 29.0 [facility] Base excess in Blood by calculation -0.6 -2.0 - 2.0 [facility] O2 SAT V 99.0 % 40.0 - 85.0 H [facility] ID Date Data Source [id number] 05/07/2019 07:33:00 PM [facility] Name Value Range Interpretation Code Description Data Raquel rce(s) Supporting Document(s) Lactate [Moles/volume] in Serum or Plasma 2.0 MMOL/L 0.2 - 2.2 [facility] ID Date Data Source [id number] 05/07/2019 07:33:00 PM EST [facility] Name Value Range Interpretation Code Description Data Raquel rce(s) Supporting Document(s) Fibrin D-dimer FEU [Mass/volume] in Platelet poor plasma 0.44 ug /mL 0.27 - 0.50 [facility] ID Date Data Source [id number] 05/07/2019 07:27:00 PM EST [facility] Name Value Range Interpretation Code Description Data Raquel rce(s) Supporting Document(s) CBC W/AUTOMATED DIFF [facility] COMPLETE BLOOD COUNT Leukocytes [#/volume] in Blood by Automated count 10.5 10^3/uL 4.2 - 11.0 [facility] Erythrocytes [#/volume] in Blood by Automated count 4.57 10^6/uL 4. 50 - 6.30 [facility] Hemoglobin [Mass/volume] in Blood 14.3 g/dL 14.0 - 16.0 [facility] Hematocrit [Volume Fraction] of Blood by Automated count 40.8 % 4 1.0 - 51.0 L [facility] Erythrocyte mean corpuscular volume [Entitic volume] by Auto mated count 89.3 fL 80.0 - 94.0 [facility] Erythrocyte mean corpuscular hemoglobin [Entitic mass] by Automated count 31.3 pg 27.0 - 34.0 [facility] Erythrocyte mean corpuscular hemoglobin concentration [Mass/volume] by Automated count 35.0 g/dL 31.0 - 36.0 [facility] Erythrocyte distribution width [Ratio] by Automated count 13.0 % 11.5 - 14.8 [facility] Platelets [#/volume] in Blood by Automated count 207 10^3/uL 150 - 45 0 [facility] Platelet mean volume [Entitic volume] in Blood by Automated count 9.3 fL 7.4 - 10.4 [facility] Neutrophils/100 leukocytes in Blood by Automated count 58.4 % 37. 0 - 80.0 [facility] Lymphocytes/100 leukocytes in Blood by Manual count 29.9 % 25.0 - 40.0 [facility] Monocytes/100 leukocytes in Blood by Automated count 7.4 % 3.0 - 8.0 [facility] Eosinophils/100 leukocytes in Blood by Automated count 3.4 % 0.0 - 7.0 [facility] Basophils/100 leukocytes in Blood by Automated count 0.6 % 0.0 - 2.0 [facility] %IG 0.3 % 0.0 - 0.0 H [facility] %NRBC 0.0 % 0.0 - 0.0 [facility] [#/volume] in Blood by Automated count 6.12 10^3/uL 2.00 - 6.90 [facility] Lymphocytes [#/volume] in Blood by Automated count 3.13 10^3/uL 0.60 - 3.40 [facility] Monocytes [#/volume] in Blood by Automated count 0.78 10^3/uL 0.00 - 0.90 [facility] Eosinophils [#/volume] in Blood by Automated count 0.36 10^3/uL 0.00 - 0.70 [facility] Basophils [#/volume] in Blood by Automated count 0.06 10^3/uL 0.00 - 0.20 [facility] #IG 0.03 10^3/uL 0.00 - 0.10 [facility] #NRBC 0.00 10^3/uL 0.00 - 0.00 [facility] MANUAL DIFF NOT INDICATED [facility] RBC MORPH NOT INDICATED [facility] Procedure Social History Code Duration Value Status Description Data Source(s ) 11/13/2019 11:12:35 AM EDT Current every day smoker co mpleted Current every day smoker [facility] Smoking 11/13/2019 11:12:00 AM EDT Current every day smoker co mpleted Current every day smoker [facility] Vital Signs ID Date Data Source UNK Name Value Range Interpretation Code Description Data Source(s) Bruno body weight 154 [lb_av] 154 [lb_av] DASIA T ([facility], ) Body height 68 [in_i] 68 [in_i] MOIRA ([facility], ) 5'8" Oxygen saturation in Arterial blood by Pulse oximetry 99 % 99 % MOIRA ([facility], ) Room Air Heart rate 93 /min 93 /min [facility] ([facility], ) Diastolic blood pressure 70 mm[Hg] 70 mm[Hg] [facility] ([facility]) Systolic blood pressure 110 mm[Hg] 110 mm[Hg] [facility] ([facility]) Bruno body weight 154 [lb_av] 154 [lb_av] MEDEN T ([facility]) Body height 68 [in_i] 68 [in_i] [facility] ([facility]) 5'8" Body temperature 97.8 [degF] 97.8 [degF] [facility] ([facility]) Oxygen saturation in Arterial blood by Pulse oximetry 98 % 98 % [facility] ([facility]) Room Air Heart rate 97 /min 97 /min [facility] ([facility]) Diastolic blood pressure 80 mm[Hg] 80 mm[Hg] [facility] ([facility]) Systolic blood pressure 130 mm[Hg] 130 mm[Hg] [facility] ([facility]) ID Date Data Source [id number] 02/11/2020 01:20:07 PM EDT [facility] Name Value Range Interpretation Code Description Data Source(s) WEIGHT RECORDED 157.00 pounds 157.00 pounds [facility] Height 68 Inches 068 Inches [facility] ID Date Data Source [id number] 02/09/2020 12:37:07 PM EDT [facility] Name Value Range Interpretation Code Description Data Source(s) WEIGHT RECORDED 148.80 pounds 148.80 pounds [facility] Height 68 Inches 068 Inches [facility]
[2020-05-16] MEDS ORDERED: diazePAM 10MG/2ML SYRINGE (J3360 PER 5MG) IV ONE (23:30)
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
[2020-05-17] MEDS ORDERED: NORCO 5/325MG TABLET (BULK FOR ED) PO ONE (01:15)
[2020-05-17] MEDS ORDERED: traZODone 100 MG TAB PO ONE (01:15)
--- OUTSIDE RECORDS SUMMARY | 2020-05-17 01:26 | CCD ---
Author Author [facility] Address Unknown Phone Unavailable Support Name Relationship Address Phone SY[place] [address] SKYLER ZAMBRANO Next Of Kin [address] [place] [address] LULA GREEN Next Of Kin [address] [facility] [address] [place] [address] RE Next Of Kin Unknown Unavailable SKYL[place] [address] JESSE SANDOVAL Next Of Kin [address] [facility] [address] [place] [address] Seble Estrella Next Of Kin [address] [place] [address] Debi Faith Next Of Kin [address] [facility] [address] [place] [address] Radha FAITH Next Of Kin [address] [facility] [address] [place] [address] Gonzalez Rob MD Next Of Kin [address] [place] [address] VERONIKA CALHOUN Next Of Kin [address] [place] [address] UE Next Of Kin Unknown Unavailable MESSI FLOOD Next Of Kin [address] [place] [address] DISABLED Next Of Kin Unknown Unavailable KALA (COUSIN) [place] [address] NO PHONE SOLA FAITH Next Of Kin [address] [place] [address] TJ SAAVEDRA Next [place] [address] KEE FAITH Next Of Kin [phone] [place] [address] MARÍA KNOXMOND Next Of Kin [address] [place] [address] SKYLER DAVIS Next Of Kin [address] [place] [address] JESSE SANDOVAL [place], [place] [phone] Care Team Providers Care Poultry Vaccinator Name Role Phone WOLFENDEN, T REBEKA PA [...] Unavailable Unavailable IRA OTT MD Unavailable Unavailable aTrik Rob MD Unavailable Unavailable Tarik Rob MD [...] Unavailable Tarik Rob MD Unavailable Unavailable Tarik oRb MD Unavailable Unavailable Tarik Rob MD Unavailable [...] is protected by Article 27-F of the [place] Public [employer] law. If you continue you may have access to information: Regarding HIV / AIDS; Provided by facilities licensed or operated by the [facility] Office of Mental Health; or Provided by the [facility] Office for People With Developmental Disabilities. If such information is present, then the following [facility] [facility] mandated warning applies: This information has been [...] law may result in a fine or [place] health care facility sentence or both. A general authorization for the release of medical or other information is NOT sufficient authorization for further disc losure. Allergies and Adverse Reactions Type Description Substance Reaction Status Data Source(s ) BRANDNAME PROZAC PROZAC [facility] BRANDNAME PAXIL PAXIL [facility] Drug allergy LITHIUM LITHIUM [facility] CLASS PCN (penicillin) PCN (penicillin) [facility] Drug allergy penicillin G Penicillin G [facility] Drug allergy diphenhydramine diphenhydramine [facility] Drug allergy chlorpromazine chlorpromazine Anaphylaxis SV [facility] Drug allergy paroxetine paroxetine [facility] Drug allergy ibuprofen Ibuprofen [facility] Drug allergy acetaminophen Acetaminophen [facility] Drug allergy lithium lithium [facility] Food allergy FISH FISH [facility] Family History Family Member Name Family Member Gender Family Member Status Date o f Status Description Data Source(s) Unknown Unknown Problem [facility] ([facility]) Encounters Encounter Providers Location Date Indications Data Source(s ) Outpatient Attender: Lei Flowers/Shruthi/Elier avila 04/06/2020 09:45:00 AM EST [facility] ([facility] Outpatient Attender: RACHEL Pollock nder: CAL FOURNIERConsultant: RUFUS OTT MDConsultant: Adiel Ott MD 02/05/2020 02:36:00 PM EDT - 02/06/2020 12:23:00 PM EDT [facility] Patient discharged. Outpatient Attender: REBEKA MICHELEttender: SANDRA SALGUERO MDConsultant: RUFUS OTT MDConsultant: Adiel Ott MD 02/02/2020 07 :48:00 PM EDT - 02/03/2020 01:55:00 PM EDT [facility] Patient discharged. Emergency Attender: DENVER ARREAGAConsultant: Adiel Montanez 01/06/2020 07:17:00 PM EDT - 01/06/2020 09:07:00 PM EDT [facility] Patient admitted. Outpatient 11/10/2019 10:34:00 PM EDT thoracic surgery consult [facility] thoracic surgery consult Inpatient Attender: Jaylon Baird MD Admitter: Jaylon Baird MDConsultant: Hao Vallejo PAConsultant: Mina Deng PA 0 11/10/2019 06:18:00 PM EDT - 11/13/2019 11:22:00 AM EDT B RIB FX, SYNCOPE [facility] B RIB FX, SYNCOPE Patient discharged. Emergency Attender: Maximino VERDE-CConsultant: Adiel horne MD 11/10/2019 10:48:00 AM EDT - 11/10/2019 05:03:00 PM EDT [facility] Patient discharged. Outpatient Attender: Gonzalez Rob MD 08/31/2019 01:55:01 PM EDT [facility] Outpatient 08/17/2019 02:57:00 PM EDT [facility] Outpatient Attender: Gonzalez Rob MD FP 08/07/2019 03:58:00 PM EDT [facility] Outpatient Attender: Gonzalez Rob MD 08/07/2019 10:05:00 AM EDT [facility] Outpatient 08/03/2019 02:34:00 PM EDT [facility] Outpatient 08/03/2019 02:33:00 PM EDT [facility] Out[facility] 06/22/2019 01:59:00 PM EDT [facility] Out[facility] 06/15/2019 03:17:00 PM EST [facility] Outpatient 05/28/2019 12:17:00 PM EST [facility] Emergency Attender: DENVER Leonardant: Adiel Montanez 05/14/2019 09:46:00 AM [facility] - 05/14/2019 01:19:00 PM [facility] Patient discharged. Outpatient 05/14/2019 06:06:00 AM EST [facility] Outpatient 05/07/2019 07:15:00 PM [facility] Emergency Attender: DENVER Berrysultant: Adiel Montanez 05/07/2019 06:37:00 PM [facility] - 05/07/2019 08:31:00 PM [facility] Patient discharged. Outpatient Attender: Gonzalez Rob MD 04/03/2019 08:02:28 PM [facility] Outpatient Attender: Gonzalez Rob MD 03/31/2019 10:50:01 AM [facility] Functional Status Medications Medication Brand Name Start Date Product Form Dose Route Admi nistrative Instructions Pharmacy Instructions Status Indications Reaction Description Data Source(s) Oxycodone Hydrochloride 5 MG Oral Tablet Oxycodone 11/13/2019 09 :35:20 AM EDT 5 MG [facility] POLYETHYLENE GLYCOL 3350 142 MG/ML Oral Solution Polye thylene Glycol 3350 Polyethylene Glycol 3350 11/13/2019 09:32:00 AM EDT [address] [facility] Digoxin 0.125 MG Oral Tablet Digoxin 11/11/2019 08:15:05 AM EDT 125 MCG [facility] Hydroxyzine Hydrochloride 25 MG Oral Tablet Hydroxyzine Hcl Hydroxyzine Hcl 11/11/2019 08:15:05 [address] EDT [address] [facility] Acetaminophen 300 MG / Codeine Phosphate 30 MG Oral Tablet Acetaminophen-Codeine Acetaminophen-Codeine 11/10/2019 09:14:51 PM EDT 1 TAB completed [facility] Trazodone Hydrochloride 100 MG Oral Tablet Trazodone 11/09 06:45:57 PM EDT 100 MG active [facility] topiramate 50 MG Oral Tablet Topiramate Topiramate 11/10/2019 06: 45:57 PM EDT [address] [facility] Acetaminophen 300 MG / Codeine Phosphate 30 MG Oral Tablet Acetaminophen-Codeine Acetaminophen-Codeine 11/10/2019 06:45:57 PM EDT 1 TAB active [facility] Albuterol Sulfate (Proair Hfa) 90 mcg/actuation Hfa Aerosol Inhaler 11/10/2019 06:45:57 PM EDT 2 PUFFS completed [facility] Albuterol Sulfate (Ventolin Hfa) 90 mcg/actuation HFA aeroso l inhaler 11/10/2019 06:45:57 PM EDT 2 PUFFS active [facility] Rosuvastatin calcium 5 MG Oral Tablet Rosuvastatin 11/10/2019 06:28 :55 PM EDT [address] [facility] Esomeprazole 40 MG Delayed Release Oral Capsule Esomeprazole Magnesium (Nexium) 40 mg Capsule,Delayed Release(Dr/Ec) Esomeprazole Magnesium (Nexium) 40 mg Capsule,Delayed Release(Dr/Ec) 11/10/2019 06:28:55 PM EDT 40 MG active [facility] Ramipril 1.25 MG Oral Capsule Ramipril 11/10/2019 06:28:55 PM EDT 1.25 MG active [facility] gabapentin 300 MG Oral Capsule Gabapentin Gabapentin 2019 06:28:55 PM EDT 300 MG active [facility] Loratadine 10 MG Oral Tablet [Claritin] Loratadine (Cl aritin) 10 mg Tablet Loratadine (Claritin) 10 mg Tablet 11/10/2019 06:28:55 PM EDT [address] [facility] Fluoxetine 10 MG Oral Capsule Fluoxetine 11/10/2019 06:28:55 PM EDT 10 MG active [facility] Cyclobenzaprine hydrochloride 10 MG Oral Tablet Cyclobenzapr ine 11/10/2019 06:28:55 PM EDT 10 MG active [facility] Fluticasone propionate 0.25 MG/ACTUAT / salmeterol 0.05 MG/ACTUAT Dry Powder Inhaler Fluticasone Propion-Salmeterol (Advair Diskus) 250-50 mcg/dose blister with device Fluticasone Propion-Salmeterol (Advair D iskus) 250-50 mcg/dose blister with device 11/10/2019 06:28:55 PM EDT 1 INH act [place] [facility] apixaban 5 MG Oral Tablet Apixaban (Eliquis) 5 mg tabl et Apixaban (Eliquis) 5 mg tablet 11/10/2019 06:28:55 PM EDT 5 MG active [facility] Insulin Glargine Insulin Glargine (Basag lar Kwikpen U-100 Insulin) 100 unit/mL (3 mL) insulin pen Insulin Glargine (Basaglar Kwikpen U-100 Insulin) 100 unit/mL (3 mL) insulin pen 11/10/2019 06:28:55 PM EDT 20 UNIT a ctive [facility] Aspirin 81 MG Delayed Release Oral Tablet Aspirin 11/10/2019 0 6:28:55 PM EDT [address] [facility] 24 HR Diltiazem Hydrochloride 240 MG Ext ended Release Oral Capsule Diltiazem Hcl (Dilt-Xr) 240 mg capsule,ext.rel 24h degradable Diltiazem Hcl (Dilt-Xr) 240 mg capsule,ext.rel 24h degradable 11/10/2019 06:28:55 PM [address]T [address] [facility] Levetiracetam 500 MG Oral Tablet Levetiracetam 11/10/2019 06:28:55 PM EDT [address] [facility] glimepiride 2 MG Oral Tablet Glimepiride Glimepiride 020 06:28:55 PM EDT 4 MG [facility] Levofloxacin 500 MG Oral Tablet Levofloxacin 09/16/2019 12:00:00 AM E DT ORAL active [facility] ([facility] ) Insurance Providers Payer name Policy type / Coverage type Policy ID Covered republican ID Covered republican's relationship to anand Policy Anand Plan Information EMEDSANAZ [id number] SP [id number] MEDICARE [id number] SP [id number] MEDICARE C [id number] S [id number] MEDICAID M [id number] MEDICARE PART A -O/P [id number] 18 [id number] MEDICAID -O/P EMERGENCY ROOM [id number] MEDICAID -PHYSICIAN [id number] OTHER NO FAULT [id number] SP [id number] Medicaid S [id number] Medicare P [id number] S [id number] MEDICAID [id number] SP [id number] MEDICAID [id number] SP [id number] MEDICARE PART A -O/P [id number] 18 [id number] MEDICARE [id number] SP [id number] MEDICAID [id number] SP [id number] Medicaid S [id number] S [id number] Medicaid [place] Medigap Part B [id number] Self [id number] Medicare [facility] Medicare Primary [id number] Self [id number] MEDICARE C [id number] S [id number] MEDICARE [id number] SP [id number] MEDICAID [id number] SP [id number] [facility] ADMIN[facility]ATORS, [facility] C [id number] S [id number] Medicaid S [id number] S [id number] NORIDIAN JE PART B C [id number] S [id number] MEDICARE PART B C [id number] S [id number] MEDICAID [id number] SP [id number] MEDICARE [id number] SP [id number] OTHER NO FAULT [id number] SP [id number] SELF PAY O UNAVAILABLE S UNAVAILA BLE MEDICAID UNAVAILABLE UNAVAILA BLE MCRB [id number] S [id number] MEDICARE [id number] S [id number] MEDICAID [id number] S [id number] MCRB [id number] S [id number] MEDICAID [id number] S [id number] MCRB [id number] S [id number] MEDICAID [id number] S [id number] MCRB [id number] S [id number] MCRB [id number] Problems, Conditions, and Diagnoses Code Display Name Description Problem Type Effective Dates Data Source(s) Z9119 Patient's noncompliance with other medic al treatment and regimen Patient's noncompliance with other medical treatment and regimen Diagnosis 02/05/2020 02:36:00 PM EDT [facility] I4891 Unspecified atrial fibrillation Unspecified atrial fib rillation Diagnosis 02/05/2020 02:36:00 PM EDT [facility] E878 Other disorders of electrolyte and fluid balance, not elsewhere classified Other disorders of electrolyte and fluid balance, not elsewhere classified Diagnosis 02/05/2020 02:36:00 PM EDT [facility] G20 Parkinson's disease Parkinson's disease Diagnosis 1 02:36:00 PM EDT [facility] R569 Unspecified convulsions Unspecified convulsions Diagno sis 02/05/2020 02:36:00 PM EDT [facility] E860 Dehydration Dehydration Diagnosis 02/05/2020 02:36:00 PM EDT [facility] Z794 superintendent terminal (current) use of insulin FDC (cu rrent) use of insulin Diagnosis 02/05/2020 02:36:00 PM EDT [facility] E119 Type 2 diabetes mellitus without complic ations Type 2 diabetes mellitus without complications Diagnosis 02/05/2020 02:36:00 PM EDT [facility] J449 Chronic obstructive pulmonary disease, u nspecified Chronic obstructive pulmonary disease, unspecified Diagnosis 02/05/2020 02:36:00 PM EDT [facility] B05014 Nicotine dependence, cigarettes, uncompl icated Nicotine dependence, cigarettes, uncomplicated Diagnosis 02/05/2020 02:36:00 PM EDT [facility] F1220 Cannabis dependence, uncomplicated Cannabis depe ndence, uncomplicated Diagnosis 02/05/2020 02:36:00 PM EDT [facility] R0789 Other chest pain Other chest pain Diagnosis 02/05/2020 02 :36:00 PM EDT [facility] F0390 Unspecified dementia without behavioral disturbance Unspecified dementia without behavioral disturbance Diagnosis 02/02/2020 07:48:00 PM EDT [facility] 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 Diagnosis 02/02/2020 07:48:00 PM EDT [facility] R95673 Unspecified place in unspeci fied non-institutional (private) residence as the place of occurrence of the external cause Unspecified place in unspecified non-institutional (private) residence as the place of occurrence of the external cause Diagnosis 01/06/2020 07:17:00 PM EDT [facility] Q898FDS Fall on same level from slip ping, tripping and stumbling without subsequent striking against object, initial encounter Fall on same level from slipping, tripping and stumbling without subsequent striking against object, initial encounter Diagnosis 01/06/2020 07:17:00 PM EDT [facility] Z7901 FDC (current) use of anticoagulant s superintendent terminal (current) use of anticoagulants Diagnosis 01/06/2020 07:17:00 PM EDT [facility] Z7982 superintendent terminal (current) use of aspirin superintendent terminal (cu rrent) use of aspirin Diagnosis [facility]2020 [facility] Personal history of transien t ischemic attack (TIA), and cerebral infarction without residual deficits Personal history of transient ischemic attack (TIA), and cerebral infarction without residual deficits Diagnosis 01/06/2020 07:17:00 PM EDT [facility] I119 Hypertensive heart disease without heart failure Hypertensive heart disease without heart failure Diagnosis 01/06/2020 07:17:00 PM EDT [facility] E7800 Pure hypercholesterolemia, unspecified P ure hypercholesterolemia, unspecified Diagnosis 01/06/2020 07:17:00 PM EDT [facility] G7155IN Fracture of one rib, right side, initial encounter for closed fracture Fracture of one rib, right side, initial encounter for closed fracture Diagnosis 01/06/2020 07:17:00 PM EDT [facility] [id number] Unspecified injury of thorax, initial en counter Unspecified injury of thorax, initial encounter Diagnosis 01/06/2020 07:17:00 PM EDT [facility] thoracic surgery consult thoracic surgery consult Diag nosis 11/10/2019 10:34:00 PM [facility] [id number] Unspecified fall, initial encounter Unspecified fall, initial encounter Diagnosis 11/10/2019 10:48:00 AM EDT [facility] [id number] Multiple fractures of ribs, left side, initial encounter for closed fracture Multiple fractures of ribs, left side, i nitial encounter for closed fracture Diagnosis 11/10/2019 10:48:00 AM [facility] I2463KC Multiple fractures of ribs, right side, initial encounter for closed fracture Multiple fractures of ribs, right side, initial encounter for closed fracture Diagnosis 11/10/2019 10:48:00 AM [facility] R55 Syncope and collapse Syncope and collapse Diagnosis 11/10/2019 10:48:00 AM [facility] A67029 Personal history of nicotine dependence Personal history of nicotine dependence Diagnosis 05/14/2019 09:46:00 AM [facility] I10 Essential (primary) hypertension Essential (primary) h ypertension Diagnosis 05/14/2019 09:46:00 AM [facility] I252 Old myocardial infarction Old myocardial infarction Di agnosis 05/14/2019 09:46:00 AM [facility] E1165 Type 2 diabetes mellitus with hyperglyce henrik Type 2 diabetes mellitus with hyperglycemia Diagnosis 05/14/2019 09:46:00 AM [facility] R531 Weakness Weakness Diagnosis 05/14/2019 09:46:00 AM [facility] J440 Chronic obstructive pulmonar y disease with (acute) lower respiratory infection Chronic obstructive pulmonary disease wi th (acute) lower respiratory infection Diagnosis 05/07/2019 06:37:00 PM [facility] R0600 Dyspnea, unspecified Dyspnea, unspecified Diagnosis 05/07/2019 06:37:00 PM [facility] Surgeries/Procedures Procedure Description Date Indications Data Source(s) MRI Brain without contrast 11/11/2019 02:34:00 PM [facility] Echocardiography (procedure) 11/11/2019 10:35:00 AM [facility] Plain chest X-ray (procedure) 11/11/2019 10:30:00 AM E [facility] Ultrasound scan of carotid (procedure) 11/11/2019 10:0 5:00 AM [facility] Plain chest X-ray (procedure) 11/10/2019 10:31:00 PM [facility] Blood culture for bacteria, including anaerobic screen (proc edure) 05/07/2019 12:00:00 AM [facility] l Results ID Date Data Source [id number] 02/09/2020 07:12:00 [place] [address] RESPIRATORY CARE REPORT ==== ---------NAME------- NUMBER SEX AGE ADMIT DISC. XRAY# F/C TYPESUN[facility] Garcia [id number] M [id number] 02/05/20 02/06/20 [id number] MB4 O/P DATE OF : 1955 M/R# [id number] PH#: [phone] CCU4 LOCATION: EMERGENCY DEPT [facility] [address] [facility] ETE:02/05/20 16:12 [facility] [address] PHYSICIAN: DA Zambrano Name Value Range Interpretation Code Description Data Raquel rce(s) Supporting Document(s) ID Date Data Source [id number] 02/08/2020 05:34:00 [place] [address] PHONE: [phone] FAX: [phone] Name .................. : DIMA Garcia Acct Number.................. : [id number] ROOM. ................. : CCU4 Number ................... : [id number] Stay type ............. : O/P Discharge Date......... ... : Admit Date ......... : 02/05/20 Admit Phys .................... : DA RUDOLPH Date of ....... : 1955 Family Phys ................... : TRU WATERMAN Phone .................. : [phone] Age ................................ : 65 Film# .................. .:[id number] Sex ................................. : M Unsigned transcriptions are preliminary reports and do not represent a medical or legal document CT HEAD W/O CONTRAST 34364 COMPLETE:02/05/20 20:51 RLB 36456 (REASON FOR PROCEDURE :ALTERED MENTAL STATUS CT [...] Dictation Date: Copy for: [place]GENC[place]PT [place] [facility] Copy for: 710 MED REC Page 1 of 2 [facility] [address] [place] [id number] PHONE: [phone] FAX: [phone] Name .................. : DIMA Garcia Acct Number.................. : [id number] ROOM. ................. : CCU4 MR Number ................... : [id number] Stay type ............. : O/P Discharge Date......... ... : Admit Date ......... : 02/05/20 Admit Phys .................... : DA MAT Date of ....... : 1955 Family Phys ................... : TRU WATERMAN Phone .................. : [phone] Age ................................ : 65 Film# .................. .:[id number] Sex ................................. : M Unsigned transcriptions are preliminary reports and do not represent a medical or legal document CT HEAD W/O CONTRAST 79211 COMPLETE:02/05/20 20:51 RLB 87743 (REASON FOR PROCEDURE :ALTERED MENTAL STATUS DISCHARGED Page 2 of 2 Name Value Range Interpretation Code Description Data Raquel rce(s) Supporting Document(s) ID Date Data Source [id number] 02/08/2020 04:23:00 PM EDT [facility] [address] [place] [address] PHONE: [phone] FAX: [phone] Name .................. : DIMA Garcia Acct Number.................. : [id number] ROOM. ................. : CCU4 MR Number ................... : [id number] Stay type ............. : O/P Discharge Date......... ... : Admit Date ......... : 02/05/20 Admit Phys .................... : DA MAT Date of ....... : 1955 Family Phys ................... : TRU WATERMAN Phone .................. : [phone] Age ................................ : 65 Film# .................. .:[id number] Sex ................................. : M Unsigned transcriptions are preliminary reports and do not represent a medical or legal document CHEST PORTABLE 73725 COMPLETE:02/05/20 15:41 CARLOS [address] [place] son(s): COPD PORTABLE CHEST X-RAY: COMPARISON: 02/02/20 [...] rce(s) Supporting Document(s) ID Date Data Source [id number] 02/02/2020 07:48:00 PM EDT [facility] 1 OrderSheet [facility] Emergency Department [address] [place] [address] Phone #: ext- [phone] 02/02/2020 19:46 Patient: DONNY FAITH Sex: M : 1955 Age: 65yWEIGHT:66.7 kg (M) HEIGHT:68 inches (S) BMI:22.4ALLERGIES: Benadryl, [place], Motrin, Paxil, Penicillins, ThorazineCHIEF COMPLAINT: chest painDIAGNOSIS: [...] 20:15 02/02/2020 20:21 [facility] Sandra Salguero MD; 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, Rk ER(Oxygen?(No)) Tech1 Reason for Study: Chest PainMEDICATION/IV/DRIP/FLUID ORDERSOrder Description Priority Entered Acknowledged InitialedMorphine IVP 4 mg 21:12 02/02/2020 21:19 Aravind,(NOW x1, HIGH Sandra Salguero MD; Stephanie RChiaraALERTMEDICATION)IV NS : Bolus 250 STAT 21:25 02/02/2020 21:47 Aravind,mL, then 250 mL/hr Sandra Salguero MD; Stephanie Chan(NOW x1) 2 OrderSheet [facility] Emergency Department [address] [place] [address] Phone #: ext- [phone] 02/02/2020 19:46 Patient: [...] rce(s) Supporting Document(s) ID Date Data Source [id number] 02/02/2020 07:48:00 PM EDT [facility] 1 Medication Reconciliation Report [facility] Emergency Department [address] [place] [address] Phone #: ext- [phone] 02/02/2020 19:46 Patient: DONNY FAITH Sex: M : 1955 Age: 65yWeight: 66.7 kgHeight/Length: 68 in.BMI: 22.4ALLERGIES: Benadryl, [place], Motrin, Paxil, Penicillins, ThorazineThe patient's Home Medications are listed below:CONTINUE TAKING THE FOLLOWING MEDICATIONS: Advair Diskus Inhalation (500-50 mcg/dose) 1 inhalation, 2x a day Advocate Insulin [place] Aspir-81 Oral (81 mg) 1 tablet, daily Basaglar 20 unita, at bedtime [facility] Claritin Oral (5 mg) 1 tablet, daily, [...] 2x a day 2 Medication Reconciliation Report [facility] Emergency Department [address] [place] [address] Phone #: ext- [phone] 02/02/2020 19:46 Patient: [...] rce(s) Supporting Document(s) ID Date Data Source [id number] 02/02/2020 07:48:00 PM EDT [facility] 1 Medication Administration Record [facility] Emergency Department [address] [place] [address] Phone #: ext- [phone] 02/02/2020 19:46 Patient: DONNY FAITH Sex: M : 1955 Age: 65yWeight: 66.7 kgHeight/Length: 68 inBMI: 22.4ALLERGIES: Benadryl, [place], Motrin, Paxil, Penicillins, Thorazine Date/Time Medication Administered Medication OrderedGiven MORPHINE [IVP] Morphine IVP 4 mg (NOW x1, HIGH21:19 02/02/2020 Dose: 4 mg IVP ALERT MEDICATION)Stephanie Nazario R.N. Site: #1 left forearmStart IV NS IV NS : Bolus 250 mL, then 78826:47 02/02/2020 Dose: IV Fluids mL/hr (NOW x1); [...] rce(s) Supporting Document(s) ID Date Data Source [id number] 02/02/2020 07:48:00 PM EDT [facility] 1 General Instructions [facility] Emergency Department [address] [place] [address] Phone #: [phone]- [phone] 02/02/2020 19:46 Patient: DONNY FAITH Sex: M : 1955 Age: 65yChest pain characterized as "pressure".INSTRUCTIONSYour Current Medications: Your current home medications have been reviewed.CONTINUE TAKING THE FOLLOWING MEDICATIONS:Advair Diskus Inhalation : Aerosol Powder Breath Activated 500-50 mcg/dose, 1 inhalation 2x a day.Advocate Insulin Pen [place]*.Aspir-81 Oral : Tablet Delayed Release 81 mg, 1 tablet daily.Basaglar* : 20 unita, at bedtime.[facility]* : [place].Claritin Oral : Tablet Chewable 5 mg, 1 [...] instructions verbalized by patient. 2 General Instructions [facility] Emergency Department [address] [place] [address] Phone #: ext- [phone] 02/02/2020 19:46 Patient: DONNY FAITH Sex: M : 1955 Age: 65y(Electronically signed by Sandra Salguero MD 02/06/2020 19:24) Name Value Range Interpretation Code Description Data Raquel rce(s) Supporting Document(s) ID Date Data Source [id number] 02/02/2020 07:48:00 PM EDT [facility] 1 Clinical Report - Nurses [facility] Emergency Department [address] [place] [address] Phone #: ext- [phone] 02/02/2020 19:46 Patient: [...] green sputum. He has had wheezing. 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 SEPSIS SCREEN: SIRS Screen negative: heart rate greater than 90. Sepsis Screen negative. No suspected or confirmed signs of infection present. SOBIA COMA SCORE: 15- eyes open- spontaneous (4); best verbal response- oriented (5); best motor response- obeys commands (6). --19:57 02/02/20 Stephanie Nazario R.N. 19:48 02/02/20. BP: 143/65. MAP: 91. HR: 106. RR: 18. O2 saturation: 100%. Temp: 98.6 F. Pain level now: 0/10. --19:57 02/02/20 Stephanie Nazario R.N. Weight: 66.7 kg measured. Height/Length: 68 inches Per Patient. BMI: 22.4. --19:52 02/02/20 Stephanie Nazario R.N. Medications Advair Diskus Inhalation (Aerosol Powder Breath Activated 500-50 mcg/dose) 1 inhalation, 2x a day. Advocate Insulin [place] . Aspir-81 Oral (Tablet Delayed Release 81 mg) 1 tablet, daily. Basaglar 20 unita, at bedtime. --19:54 02/02/20 Stephanie Nazario R.N. [facility] [place]. Claritin Oral (Tablet Chewable 5 mg) 1 [...] a day. 2 Clinical Report - Nurses [facility] Emergency Department [address] [place] [address] Phone #: ext- [phone] 02/02/2020 19:46 Patient: [...] on day 3. --19:54 02/02/20 Stephanie Nazario R.N.AllergiesBenadryl.[place].Motrin.Paxil.Penicillins.Thorazine. --19:54 02/02/20 Stephanie Nazario R.N.HistoryPAST MEDICAL HX: [...] 63 years. 3 Clinical Report - Nurses [facility] Emergency Department [address] [place] [address] Phone #: ext- [phone] 02/02/2020 19:46 Patient: [...] IV flushed 4 Clinical Report - Nurses [facility] Emergency Department [address] [place] [address] Phone #: ext- [phone] 02/02/2020 19:46 [id number] Sex: M : 1955 Age: 65y thoroughly [...] rce(s) Supporting Document(s) ID Date Data Source [id number] 02/02/2020 07:48:00 PM EDT [facility] 1 Clinical Report - Physicians/Mid Levels [facility] Emergency Department [address] [place] [address] Phone #: ext- [phone] 02/02/2020 19:46 Patient: [...] Surgeries: Appendectomy. 2 Clinical Report - Physicians/Mid [facility] Emergency Department [address] [place] [address] Phone #: ext- [phone] 02/02/2020 19:46 Patient: DONNY FAITH Sex: M : 1955 Age: 65y Cholecystectomy. Medications: [facility]. Claritin Oral (Tablet Chewable 5 mg) 1 [...] inhalation, 2x a day. Advocate Insulin [place]. Aspir-81 Oral (Tablet Delayed Release 81 mg) 1 tablet, daily. Basaglar 20 unita, at bedtime. Allergies: Benadryl. [place]. Motrin. Paxil. Penicillins. Thorazine.SOCIAL HISTORYNo drug use.ADDITIONAL NOTESThe nursing notes have been reviewed.PHYSICAL EXAMVital Signs: 02/02/2020 22:48 BP: lying 134/72. MAP: 92. HR: 78. RR: 23. O2 saturation: 97% on roomair. Temp: 97.3 F. Pain level now: 09/22. 3 Clinical Report - Physicians/Mid Levels [facility] Emergency Department [address] [place] [address] Phone #: ext- [phone] 02/02/2020 19:46 Patient: DONNY FAITH Sex: M [...] AND EKGLaboratory Tests:Urinalysis: (ROSARIO: 02/02/2020 21:08) ( [facility] 02/02/2020 22:01) Final results Test Result Flag [...] 1 (NORMAL: NONELipase: (ROSARIO: 02/02/2020 20:20) ( MngRcvd 02/02/2020 21:24) Final results Test Result Flag Units (Reference) LIPASE 58 U/L (13 - 60)CBC w Diff: (ROSARIO: 02/02/2020 20:20) ( [facility] 02/02/2020 20:33) Final results Test Result Flag Units (Reference) CBC W/AUTOMATED DIFF COMPLETE BLOOD COUNT WBC 10.5 10/uL (4.2 - 11.0) RBC 4.57 10/uL (4.50 - 6.30) 4 Clinical Report - Physicians/Mid Levels [facility] Emergency Department [address] [place] [address] Phone #: ext- [phone] 02/02/2020 19:46 Patient: [...] Male GFR Interprentation 20-49 yrs >60 mL/min Etcojg48-07 yrs >56 mL/min Normal 60-69 yrs >49 mL/min Normal 70-79yrs>42 mL/min Normal 80 and above >35 mL/min Normal Female GFRInterpretation 20-39 yrs >60 mL/min Normal 40-49 yrs >58 mL/minNormal 50-59 yrs >51 mL/min Normal 60-69 yrs >45 mL/min Cmnzux56-64 yrs >39 mL/min Normal 80 and above >32 mL/min Normal 5 Clinical Report - Physicians/Mid Levels [facility] Emergency Department [address] [place] [address] Phone #: ext- [phone] 02/02/2020 19:46 Patient: [...] O2? Oxygen?(No) Room: ED Exam CHEST PORTABLE [facility] [address] [place] [address] PHONE: [phone] FAX: [phone] Name .................. : DIMA Garcia Acct Number.................. : [id number] ROOM. ................. : TR-06 Number ................... : [id number] Stay type ............. : E/R Discharge Date......... ... : Admit Date ......... : 02/02/20 Admit Phys .................... : COONEYNORM Date of ....... : 1955 Family Phys ................... : TRU WATERMAN Phone .................. : [phone] Age ................................ : 65 Film# .................. .:[id number] Sex .................. ............... : M Unsigned transcriptions are preliminary reports and do not represent a medical or legal document CHEST PORTABLE [id number] COMPLETE:02/02/20 21:13 RLB [id number] Reason(s): Chest Pain PORTABLE CHEST X-RAY: INDICATION: Chest pain. COMPARISON: 05/14/19 FINDINGS: The cardiac and mediastinal silhouettes appear normal and the lungs are clear. The bones and soft tissues are normal. The upper abdomen is unremarkable. IMPRESSION: No acute disease identifiable. Electronically Reviewed and Signed By 6 Clinical Report - Physicians/Mid Levels [facility] Emergency Department [address] [place] [address] Phone #: ext- [phone] 02/02/2020 19:46 Patient: [facility]ITH [id number] Sex: M : 1955 Age: 65y DCTNAME [...] inhalation 2x a day. Advocate Insulin [place]*. Aspir-81 Oral : Tablet Delayed Release 81 mg, 1 tablet daily. Basaglar* : 20 unita, at bedtime. [facility]* : [place]. Claritin Oral : Tablet Chewable 5 mg, [...] day. 7 Clinical Report - Physicians/Mid Levels [facility] Emergency Department [address] [place] [address] Phone #: ext- [phone] 02/02/2020 19:46 Patient: [...] rce(s) Supporting Document(s) ID Date Data Source [id number] 02/02/2020 07:48:00 PM EDT [facility] for DONNY FAITH VisitID: [id number] Date: 22:32Faxed Medication reconciliation request to [employer].(Electronically signed by Amos Dixon - 02/02/2020 22:32) Name Value Range Interpretation Code Description Data Raquel rce(s) Supporting Document(s) ID Date Data Source [id number] 02/06/2020 07:13:00 AM T [facility] Name Value Range Interpretation Code Description Data [facility] rce(s) Supporting Document(s) Phosphate [Mass/volume] in Serum or Plasma 3.9 MG/DL 2.5 - 4.5 [facility] ID Date Data Source [id number] 02/06/2020 07:13:00 AM [facility] Name Value Range Interpretation Code Description Data Raquel rce(s) Supporting Document(s) Magnesium [Mass/volume] in Serum or Plasma 1.8 MG/DL 1.7 - 2.2 [facility] ID Date Data Source [id number] 02/06/2020 07:12:00 AM EDT [facility] Name Value Range Interpretation Code Description Data Raquel rce(s) Supporting Document(s) COMPREHENSIVE METABOLIC PANEL [facility] COMPREHENSIVE METABOLIC PANEL Sodium [Moles/volume] in Serum or Plasma 138 mEq/L 134 - 153 [facility] Potassium [Moles/volume] in Serum or Plasma 3.9 mEq/L 3.6 - 5.0 [facility] Chloride [Moles/volume] in Serum or Plasma 105 mEq/L 98 - 107 [facility] Carbon dioxide, total [Moles/volume] in Serum or Plasma 25 MEQ/L 22 - 30 [facility] Glucose [Mass/volume] in Serum or Plasma 240 MG/DL 65 - 110 H [facility] BUN 9 MG/DL 7 - 21 [facility] al Creatinine [Mass/volume] in Serum or Plasma 0.5 MG/DL 0.7 - 1.5 L [facility] BUN/CREAT 18 8 - 27 [facility] al Protein [Mass/volume] in Serum or Plasma 6.1 G/DL 6.3 - 8.2 L [facility] Albumin [Mass/volume] in Serum or Plasma 3.7 G/DL 3.9 - 5.0 L [facility] Globulin [Mass/volume] in Serum by calculation 2.4 GM/DL 2.4 - 3.2 [facility] A/G RATIO 1.5 0.8 - 2.0 [facility] Calcium [Mass/volume] in Serum or Plasma 9.1 MG/DL 8.4 - 10.2 [facility] Bilirubin.total [Mass/volume] in Serum or Plasma <0.7 MG/DL 0.2 - 1.3 [facility] Alkaline phosphatase [Enzymatic activity/volume] in Serum or Plasma 61 U/L 38 - 126 [facility] Aspartate aminotransferase [Enzymatic activity/volume] in Serum or Plasma 15 U/L 5 - 40 [facility] Alanine aminotransferase [Enzymatic activity/volume] in Seru m or Plasma 17 U/L 7 - 56 [facility] Anion gap 3 in Serum or Plasma 8.0 mmol/L 8.0 - 16.0 [facility] AGE 65 yrs [facility] NON-AA GFR >60 mL/min [facility] AFR AMER GFR >60 mL/min [facility] Male GFR In terprentation [...] >32 mL/min Normal ID Date Data Source [id number] 02/06/2020 07:09:00 AM EDT [facility] Name Value Range Interpretation Code Description Data Raquel rce(s) Supporting Document(s) TROPONIN T <0.01 NG/ML 0.00 - 0.10 [facility] ospital TROPONIN T0.1 ng/ml Recommended as the c linical threshold value forTroponin T. ID Date Data Source [id number] 02/06/2020 07:09:00 AM [facility] Name Value Range Interpretation Code Description Data Raquel rce(s) Supporting Document(s) Prothrombin time (PT) 13.5 SECONDS 11.0 - 15.5 [facility] INR in Platelet poor plasma by Coagulation assay 1.02 0.93 - 1. 23 [facility] \\BLDo\\INR INTERPRETATION\\BLDx\\ Therapeutic range for Coumadin and related oral anticoagulants. - International Normalized Ratio (INR): 2.0 - 3.0 for Venous Thrombosis, Pulmonary Embolus, Tissue heart valves, Acute MN, Atrial Fibrillation, Valvular heart disease and recurrent Systemic Embolism. -International Normalized Ratio (INR): 2.5 - 3.5 for Mechanical Prosthetic valve. ID Date Data Source [id number] 02/06/2020 06:47:00 AM EDT [facility] Name Value Range Interpretation Code Description Data Raquel rce(s) Supporting Document(s) CBC W/AUTOMATED DIFF [facility] COMPLETE BLOOD COUNT Leukocytes [#/volume] in Blood by Automated count 5.9 10^3/uL 4.2 - 1 1.0 [facility] Erythrocytes [#/volume] in Blood by Automated count 4.09 10^6/uL 4. 50 - 6.30 L [facility] Hemoglobin [Mass/volume] in Blood 12.4 g/dL 14.0 - 16.0 L [facility] Hematocrit [Volume Fraction] of Blood by Automated count 35.8 % 4 1.0 - 51.0 L [facility] Erythrocyte mean corpuscular volume [Entitic volume] by Auto mated count 87.5 fL 80.0 - 94.0 [facility] Erythrocyte mean corpuscular hemoglobin [Entitic mass] by Automated count 30.3 pg 27.0 - 34.0 [facility] Erythrocyte mean corpuscular hemoglobin concentration [Mass/volume] by Automated count 34.6 g/dL 31.0 - 36.0 [facility] Erythrocyte distribution width [Ratio] by Automated count 13.3 % 11.5 - 14.8 [facility] Platelets [#/volume] in Blood by Automated count 237 10^3/uL 150 - 45 0 [facility] Platelet mean volume [Entitic volume] in Blood by Automated count 9.6 fL 7.4 - 10.4 [facility] Neutrophils/100 leukocytes in Blood by Automated count 42.8 % 37. 0 - 80.0 [facility] Lymphocytes/100 leukocytes in Blood by Manual count 43.3 % 25.0 - 40.0 H [facility] Monocytes/100 leukocytes in Blood by Automated count 7.8 % 3.0 - 8.0 [facility] Eosinophils/100 leukocytes in Blood by Automated count 5.1 % 0.0 - 7.0 [facility] Basophils/100 leukocytes in Blood by Automated count 0.7 % 0.0 - 2.0 [facility] %IG 0.3 % 0.0 - 0.0 [facility] %NRBC 0.0 % 0.0 - 0.0 [facility] Neutrophils [#/volume] in Blood by Automated count 2.52 10^3/uL 2.00 - 6.90 [facility] Lymphocytes [#/volume] in Blood by Automated count 2.55 10^3/uL 0.60 - 3.40 [facility] Monocytes [#/volume] in Blood by Automated count 0.46 10^3/uL 0.00 - 0.90 [facility] Eosinophils [#/volume] in Blood by Automated count 0.30 10^3/uL 0.00 - 0.70 [facility] Basophils [#/volume] in Blood by Automated count 0.04 10^3/uL 0.00 - 0.20 [facility] #IG 0.02 10^3/uL 0.00 - 0.10 [facility] #NRBC 0.00 10^3/uL 0.00 - 0.00 [facility] ospital MANUAL DIFF NOT INDICATED [facility] RBC MORPH NOT INDICATED [facility] ID Date Data Source [id number] 02/05/2020 08:55:00 PM EDT [facility] Name Value Range Interpretation Code Description Data Raquel rce(s) Supporting Document(s) TROPONIN T <0.01 NG/ML 0.00 - 0.10 [facility] ospital TROPONIN T0.1 ng/ml Recommended as the c linical threshold value forTroponin T. ID Date Data Source [id number] 02/05/2020 02:36:00 PM EDT [facility] 1 OrderSheet [facility] Emergency Department [address] [place] [address] Phone #: [phone] qdl- [phone] 02/05/2020 14:42 Patient: DONNY FAITH Sex: M : 1955 Age: 65yWEIGHT:65.7 kg (S) HEIGHT:68 inches (S) BMI:22.0ALLERGIES: Benadryl, [place], Motrin, Paxil, Penicillins, ThorazineCHIEF COMPLAINT: dyspnea, COPD, [...] Description Priority Entered Acknowledged Initialed 2 OrderSheet [facility] Emergency Department [address] [place] [address] Phone #: ext- [phone] 02/05/2020 14:42 Patient: DONNY FAITH Sex: M : 1955 Age: 65yEKG 15:10 02/05/2020 15:11 Kenny ED Cal Fournier ; Ivon De Souza [id number] - 16:46 02/05/2020 16:51 Byron CunninghamspitalCal Louise ; R.N.[Electronically signed by Cal Fournier (18:05 02/05/2020)][Electronically signed by Quoc Sandoval RN (18:48 02/05/2020)][Electronically locked by Quoc Sandoval RN (18:48 02/05/2020)] Name Value Range Interpretation Code Description Data Raquel rce(s) Supporting Document(s) ID Date Data Source [id number] 02/05/2020 02:36:00 PM EDT [facility] 1 Medication Reconciliation Report [facility] Emergency Department [address] [place] [address] Phone #: ext- [phone] 02/05/2020 14:42 Patient: DONNY FAITH Sex: M : 1955 Age: 65yWeight: 65.7 kgHeight/Length: 68 in.BMI: 22.0ALLERGIES: Benadryl, [place], Motrin, Paxil, Penicillins, ThorazineThe patient's Home Medications are listed below:THE FOLLOWING MEDICATIONS NEED TO BE RECONCILED: Advair Diskus Inhalation (500-50 mcg/dose) 1 inhalation, 2x a day Advocate Insulin [place] Aspir-81 Oral (81 mg) 1 tablet, daily Basaglar 20 unita, at bedtime [facility] Claritin Oral (5 mg) 1 tablet, daily, [...] 2x a day 2 Medication Reconciliation Report [facility] Emergency Department [address] [place] [address] Phone #: ext- [phone] 02/05/2020 14:42 Patient: [...] rce(s) Supporting Document(s) ID Date Data Source [id number] 02/05/2020 02:36:00 PM EDT [facility] 1 Medication Administration Record [facility] Emergency Department [address] [place] [address] Phone #: ext- [phone] 02/05/2020 14:42 Patient: DONNY FAITH Sex: M : 1955 Age: 65yWeight: 65.7 kgHeight/Length: 68 inBMI: 22ALLERGIES: Benadryl, [place], Motrin, Paxil, Penicillins, Thorazine Date/Time Medication Administered Medication OrderedStart IV NS IV NS : 1000 mL/hr15:28 02/05/2020 Dose: IV FluidsQuoc Sandoval RN Rate: 1000 mL/hr over 1 hour(s)---- Dispensed: 1000 mL bagStop Site: #1 right aixqyqm76:30 02/05/2020Tergraham Sandoval RNGiven INSULIN REG [SUBCUTANEOUS] Insulin Reg Subcut 10 units (NOW16:44 02/05/2020 Dose: 10 unit Subcutaneous x1, HIGH ALERT MEDICATION)Elida Cunningham R.N. Name Value Range Interpretation Code Description Data Raquel rce(s) Supporting Document(s) ID Date Data Source [id number] 02/05/2020 02:36:00 PM EDT [place] [address] General Instructions [facility] Emergency Department [address] [place] [address] Phone #: ext- [phone] 02/05/2020 14:42 Patient: DONNY FAITH Sex: M : 1955 Age: 65yChest pain characterized as "discomfort".Moderate hyperglycemia.(Electronically signed by Cal Fournier, 02/05/2020 18:05) Name Value Range Interpretation Code Description Data Raquel rce(s) Supporting Document(s) ID Date Data Source [id number] 02/05/2020 02:36:00 PM EDT [facility] 1 Clinical Report - Nurses [facility] Emergency Department [address] [place] [address] Phone #: ext- [phone] 02/05/2020 14:42 Patient: [...] inhalation, 2x a day. Advocate Insulin [place]. Aspir-81 Oral (Tablet Delayed Release 81 mg) 1 tablet, daily. Basaglar 20 unita, at bedtime. [facility]. Claritin Oral (Tablet Chewable 5 mg) 1 [...] at bedtime. 2 Clinical Report - Nurses [facility] Emergency Department [address] [place] [address] Phone #: ext- [phone] 02/05/2020 14:42 Patient: DONNY FAITH Sex: M : 1955 Age: 65yTylenol with Codeine #3 Oral, 2x a day.Ventolin HFA Inhalation 2 puffs, q8h as needed, sob.Z pack 1 tab day pt on day 3. --14:43 02/05/20 Best Hobbs R.N.AllergiesBenadryl.[place].Motrin.Paxil.Penicillins. --14:43 02/05/20 Best Hobbs R.N.Thorazine. --14:43 02/05/20 [...] Cal Fournier. 3 Clinical Report - Nurses [facility] Emergency Department [address] [place] [address] Phone #: ext- [phone] 02/05/2020 14:42 Patient: DONNY FAITH Sex: M : 1955 Age: 65yPHYSICAL [id number] 02/05/20. To room via stretcher.GENERAL / NEURO [...] Cunningham R.N. late entry - 14:40 02/05/20. white metal caster and NIBP monitor placed on patient; monitor [...] x-ray completed. Shown to the ED physician ([id number]). --15:30 02/05/20 Quoc Sandoval RN 15:58 02/05/20. BP: 141/84. MAP: 103. HR: 89. RR: 25. O2 saturation: 100%. --15:59 02/05/20 [place] [facility] 4 Clinical Report - Nurses [facility] Emergency Department [address] [place] [address] Phone #: ext- [phone] 02/05/2020 14:42 Patient: DONNY FAITH Sex: M : 1955 Age: 65y [facility] CenterAndrewIvon Tech1 Finger stick glucose: 279; performed by [...] RR: 25. O2 saturation: 100%. --17:04 02/05/20 [place] 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 IvonZINA julian Tech1 ( 4830 house doctor in to see pt). --17:12 02/05/20 Quoc Sandoval RN ( 0830 pt sleeping respirations easy not disturbed). --17:34 [...] Sandoval RN. 5 Clinical Report - Nurses [facility] Emergency Department [address] [place] [address] Phone #: ext- [phone] 02/05/2020 14:42 Patient: DONNY FAITH Sex: M : 1955 Age: 65yLocked/Released at 02/05/2020 18:48 by Quoc Sandoval RN Name Value Range Interpretation Code Description Data Raquel rce(s) Supporting Document(s) ID Date Data Source [id number] 02/05/2020 02:36:00 PM EDT [facility] 1 Clinical Report - Physicians/Mid Levels [facility] Emergency Department [address] [place] [address] Phone #: ext- [phone] 02/05/2020 14:42 Patient: [...] was just discharged two days ago from [facility] for similar complaints. He also states [...] Cholecystectomy. 2 Clinical Report - Physicians/Mid Levels [facility] Emergency Department [address] [place] [address] Phone #: ext- [phone] 02/05/2020 14:42 Patient: [...] inhalation, 2x a day. Advocate Insulin [place]. Aspir- 81 Oral (Tablet Delayed Release 81 mg) 1 tablet, daily. Basaglar 20 unita, at bedtime. [facility]. Claritin Oral (Tablet Chewable 5 mg) 1 [...] NexIUM Oral 40 mg, daily. Allergies: Benadryl. [place]. Motrin. Paxil. Penicillins. Thorazine.SOCIAL HISTORYCurrent every day heavy tobacco smoker (cigarette)- 1-2 packs per day.FAMILY HISTORYFather: Coronary Artery Disease.Mother: Diabetes.ADDITIONAL NOTESThe nursing notes have been reviewed. 3 Clinical Report - Physicians/Mid Levels [facility] Emergency Department [address] [place] [address] Phone #: [phone]- [phone] 02/05/2020 14:42 Patient: [...] 1.0 4 Clinical Report - Physicians/Mid Levels [facility] Emergency Department [address] [place] [address] Phone #: [phone]- [phone] 02/05/2020 14:42 Patient: [...] Normal 5 Clinical Report - Physicians/Mid Levels [facility] Emergency Department [address] [place] [address] Phone #: [phone]- [phone] 02/05/2020 14:42 Patient: [...] rce(s) Supporting Document(s) ID Date Data Source [id number] 02/09/2020 06:38:00 AM EDT [facility] Name Value Range Interpretation Code Description Data Raquel rce(s) Supporting Document(s) Levetiracetam [Mass/volume] in Serum or Plasma <1.0 ug/mL 10.0-40.0 L [facility] Verified by repeat analysisThis test was developed and its performance characteristicsdetermined by [facility]. It has not been cleared or approvedby the Food and Drug Administration. ID Date Data Source [id number] 02/05/2020 06:56:00 PM EDT [facility] Name Value Range Interpretation Code Description Data Raquel rce(s) Supporting Document(s) Digoxin [Mass/volume] in Serum or Plasma <0.4 NG/ML 0.8 - 2.0 L [facility] ID Date Data Source [id number] 02/05/2020 06:53:00 PM EDT [facility] Name Value Range Interpretation Code Description Data Raquel rce(s) Supporting Document(s) Ammonia [Mass/volume] in Plasma <17.0 UG/DL 27.2 - 102 L [facility] ID Date Data Source [id number] 02/05/2020 06:41:00 PM EDT [facility] Name Value Range Interpretation Code Description Data Raquel rce(s) Supporting Document(s) Hemoglobin A1c/Hemoglobin.total in Blood 12.8 % 4.4 - 6.1 H [facility] {A1]{HB] ID Date Data Source [id number] 02/05/2020 06:30:00 PM EDT [facility] Name Value Range Interpretation Code Description Data Raquel rce(s) Supporting Document(s) pH of Serum or Plasma 7.40 7.32 - 7.43 [facility] pCO2 V 40.1 mm/HG 38.0 - 51.0 [facility] pO2 V 24.3 mm/HG 30.0 - 55.0 L [facility] Bicarbonate [Moles/volume] in Venous blood 24.4 meq/L 22.0 - 29.0 [facility] TCO2 V 25.6 meq/L 22.0 - 29.0 [facility] Base excess in Blood by calculation -0.3 -2.0 - 2.0 [facility] O2 SAT V 42.9 % 40.0 - 85.0 [facility] ID Date Data Source [id number] 02/05/2020 06:30:00 PM EDT [facility] Name Value Range Interpretation Code Description Data Raquel rce(s) Supporting Document(s) Lactate [Moles/volume] in Serum or Plasma 1.7 MMOL/L 0.2 - 2.2 [facility] ID Date Data Source [id number] 02/07/2020 03:30:00 PM T [facility] Name Value Range Interpretation Code Description Data Raquel rce(s) Supporting Document(s) Phenytoin [Mass/volume] in Serum or Plasma <0.8 ug/mL 10.0-20.0 L [facility] Verified by repeat analysis Detection Limit = 0.8 <0.8 Indicates None Detected ID Date Data Source [id number] 02/05/2020 06:24:00 PM T [facility] Name Value Range Interpretation Code Description Data Raquel rce(s) Supporting Document(s) DRUG SCREEN URINE [facility] URINE DRUG SCREEN Amphetamine [Presence] in Urine by Screen method NEGATIVE NORMAL: N EGATIVE [facility] BARBITURATES NEGATIVE NORMAL: NEGATIVE [facility] BENZO NEGATIVE NORMAL: NEGATIVE [facility] COCAINE NEGATIVE NORMAL: NEGATIVE [facility] Tetrahydrocannabinol [Presence] in Urine NEGATIVE NORMAL: NEGATIVE [facility] OPIATES NEGATIVE NORMAL: NEGATIVE [facility] Phencyclidine [Presence] in Urine by Screen method NEGATIVE NOR MAL: NEGATIVE [facility] \\BLDo\\URINE DRUG SCR EEN INTERPRETATION\\BLDx\\ THE CUTOFFF LEVELS FOR DETECTION ARE FOLLOWS: AMPHETAMINES 1000 ng/ml BARBITUARATES 200 ng/ml BENZODIAZEPINES 100 ng/ml THC 50 ng/ml PHENCYCLIDINE 25 ng/ml OPIATES 300 ng/ml COCAINE 300 ng/ml ALL POSITIVES ARE CONSIDERED PRESUMPTIVE POSITIVE CONFIRMATION WILL BE PERFORMED AT PHYSICIAN REQUEST. ID Date Data Source [id number] 02/05/2020 03:45:00 PM EDT [facility] Name Value Range Interpretation Code Description Data Raquel rce(s) Supporting Document(s) TROPONIN T <0.01 NG/ML 0.00 - 0.10 [facility] ospital TROPONIN T0.1 ng/ml Recommended as the c linical threshold value forTroponin T. ID Date Data Source [id number] 02/05/2020 03:45:00 PM EDT [facility] Name Value Range Interpretation Code Description Data Raquel rce(s) Supporting Document(s) BASIC METABOLIC PANEL [facility] BASIC METABOLIC PANEL Sodium [Moles/volume] in Serum or Plasma 130 mEq/L 134 - 153 L [facility] Potassium [Moles/volume] in Serum or Plasma 3.7 mEq/L 3.6 - 5.0 [facility] Chloride [Moles/volume] in Serum or Plasma 95 mEq/L 98 - 107 L [facility] Carbon dioxide, total [Moles/volume] in Serum or Plasma 23 MEQ/L 22 - 30 [facility] Glucose [Mass/volume] in Serum or Plasma 341 MG/DL 65 - 110 H [facility] BUN 11 [facility]DL 7 - [facility] Creat[facility] [Mass/volume] in Serum or Plasma 0.5 MG/DL 0.7 - 1.5 L [facility] BUN/CREAT 22 8 - 27 [facility] Calcium [Mass/volume] in Serum or Plasma 8.9 MG/DL 8.4 - 10.2 [facility] Anion gap 3 in Serum or Plasma 12.0 mmol/L 8.0 - 16.0 [facility] AGE 65 y[facility] AFR AMER GFR >60 mL/min [facility] NON-AA GFR >60 mL/min [facility] Male GFR Inter prentation [...] >32 mL/min Normal ID Date Data Source [id number] 02/05/2020 03:34:00 PM EDT [facility] Name Value Range Interpretation Code Description Data Raquel rce(s) Supporting Document(s) CBC W/AUTOMATED DIFF [facility] COMPLETE BLOOD COUNT Leukocytes [#/volume] in Blood by Automated count 7.1 10^3/uL 4.2 - 1 1.0 [facility] Erythrocytes [#/volume] in Blood by Automated count 3.98 10^6/uL 4. 50 - 6.30 L [facility] Hemoglobin [Mass/volume] in Blood 12.4 g/dL 14.0 - 16.0 L [facility] Hematocrit [Volume Fraction] of Blood by Automated count 35.1 % 4 1.0 - 51.0 L [facility] Erythrocyte mean corpuscular volume [Entitic volume] by Auto mated count 88.2 fL 80.0 - 94.0 [facility] Erythrocyte mean corpuscular hemoglobin [Entitic mass] by Automated count 31.2 pg 27.0 - 34.0 [facility] Erythrocyte mean corpuscular hemoglobin concentration [Mass/volume] by Automated count 35.3 g/dL 31.0 - 36.0 [facility] Erythrocyte distribution width [Ratio] by Automated count 13.5 % 11.5 - 14.8 [facility] Platelets [#/volume] in Blood by Automated count 238 10^3/uL 150 - 45 0 [facility] Platelet mean volume [Entitic volume] in Blood by Automated count 10.0 fL 7.4 - 10.4 [facility] Neutrophils/100 leukocytes in Blood by Automated count 56.5 % 37. 0 - 80.0 [facility] Lymphocytes/100 leukocytes in Blood by Manual count 34.5 % 25.0 - 40.0 [facility] Monocytes/100 leukocytes in Blood by Automated count 5.4 % 3.0 - 8.0 [facility] Eosinophils/100 leukocytes in Blood by Automated count 2.7 % 0.0 - 7.0 [facility] Basophils/100 leukocytes in Blood by Automated count 0.6 % 0.0 - 2.0 [facility] %IG 0.3 % 0.0 - 0.0 [facility] %NR[facility] 0.0 % 0.0 - 0.0 [facility] Neutrophils [#/volume] in Blood by Automated count 3.99 10^3/uL 2.00 - 6.90 [facility] Lymphocytes [#/volume] in Blood by Automated count 2.43 10^3/uL 0.60 - 3.40 [facility] Monocytes [#/volume] in Blood by Automated count 0.38 10^3/uL 0.00 - 0.90 [facility] Eosinophils [#/volume] in Blood by Automated count 0.19 10^3/uL 0.00 - 0.70 [facility] Basophils [#/volume] in Blood by Automated count 0.04 10^3/uL 0.00 - 0.20 [facility] #IG 0.02 10^3/uL 0.00 - 0.10 [facility] ospital #NRBC 0.00 10^3/uL 0.00 - 0.00 [facility] ospital MANUAL DIFF NOT INDICATED [facility] RBC MORPH NOT INDICATED [facility] spital ID Date Data Source [id number] 02/05/2020 03:33:00 PM EDT [facility] Name Value Range Interpretation Code Description Data Raquel rce(s) Supporting Document(s) [facility] COLOR yellow NORMAL: Yellow [facility] CLARITY clear NORMAL: Clear [facility] Specific gravity of Urine by Test strip 1.010 1.001 - 1.030 [facility] pH 6.5 5 - 9 [facility] Glucose [Mass/volume] in Urine by Test strip 1000 NORMAL: Negat savannah A [facility] Bilirubin.total [Presence] in Urine by Test strip NEG NORMAL: Negative [facility] Ketones [Presence] in Urine by Test strip 5 NORMAL: Negative [facility] Protein [Mass/volume] in Urine by Test strip NEG NORMAL: Negat savannah [facility] Nitrite [Presence] in Urine by Test strip NEG NORMAL: Negative [facility] BLOOD NEG NORMAL: Negative [facility] Leukocyte esterase [Presence] in Urine by Test strip NEG SANDRA L: Negative [facility] Urobilinogen [Mass/volume] in Urine by Test strip NOR less jenniffer n 1.0 mg/dL [facility] MICROSCOPIC Not Indicate [facility] ID Date Data Source [id number] 02/04/2020 09:46:00 [place] [address] CONSULTATIONNAME: DIMA Garcia ROOM#: [id number] OF : 1955 MR#: [id number] PHYS: Rebeka Boucher PA-C DATE: 02/02/20DATE OF [...] the past, the patient was admitted to [facility], he was admitted several times. He was [...] or rhonchi.ABDOMEN: Soft. Nontender. No visceromegaly. [address] [place] [address] CONSULTATIONNAME: DIMA Garcia ROOM#: [id number] OF : 1955 MR#: [id number] PHYS: Rebeka Boucher PA-C DATE: 02/02/20EXTREMTIES: Normal. [...] rce(s) Supporting Document(s) ID Date Data Source [id number] 02/04/2020 09:15:00 AM EDT [facility] [address] [place] [address] PHONE: [phone] FAX: [phone] Name .................. : DIMA Garcia Acct Number.................. : [id number] ROOM. ................. : [id number] MR Number ................... : [id number] Stay type ............. : E/R Discharge Date......... ... : Admit Date ......... : 02/02/20 Admit Phys .................... : COONEYNORM Date of ....... : 1955 Family Phys ................... : TRU WATERMAN Phone .................. : [phone] Age ................................ : 65 Film# .................. .:[id number] Sex ................................. : M Unsigned transcriptions are preliminary reports and do not represent a medical or legal document CHEST PORTABLE [id number] COMPLETE:02/02/20 21:13 RLB 99328 Reason (s): Chest Pain PORTABLE CHEST X-RAY: [...] for: EMERGENCY DEPT via modem Copy for: [address] [place] [address] REC Page 1 of 1 Name Value Range Interpretation Code Description Data Raquel rce(s) Supporting Document(s) ID Date Data Source [id number] 02/03/2020 07:25:00 [place] [address] RESPIRATORY CARE REPORT ==== ---------NAME------- NUMBER SEX AGE ADMIT DISC. XRAY# F/C [facility] DONNY Garcia [id number] M 65 02/02/20 02/03/20 [id number] O/P DATE OF : 1955 M/R# [id number] #: [id number] CCU3 LOCATION: EMERGENCY DEPT EKG 54434 COMPL ETE:02/03/20 19:24 T 92169 PHYSICIAN: GABRIELA Name Value Range Interpretation Code Description Data Raquel rce(s) Supporting Document(s) ID Date Data Source [id number] 02/03/2020 07:19:00 [place] [address] RESPIRATORY CARE REPORT ==== ---------NAME------- NUMBER SEX AGE ADMIT DISC. XRAY# F/C AUTUMN Garcia [id number] M 65 02/02/20 02/03/20 [id number] MB4 O/P DATE OF : 1955 M/R# [id number] #: [id number] CCU3 LOCATION: EMERGENCY DEPT [facility] [address] COMPL ETE:02/03/20 01:58 VMT [id number] PHYSICIAN: GABRIELA SALGUERO NOR Name Value Range Interpretation Code Description Data Raquel rce(s) Supporting Document(s) ID Date Data Source [id number] 02/03/2020 11:02:00 AM EDT [facility] Name Value Range Interpretation Code Description Data Raquel rce(s) Supporting Document(s) TROPONIN T <0.01 NG/ML 0.00 - 0.10 [facility] ospital TROPONIN T0.1 ng/ml Recommended as the c linical threshold value forTroponin T. ID Date Data Source [id number] 02/03/2020 06:40:00 AM EDT [facility] Name Value Range Interpretation Code Description Data Raquel rce(s) Supporting Document(s) COMPREHENSIVE METABOLIC PANEL [facility] COMPREHENSIVE METABOLIC PANEL Sodium [Moles/volume] in Serum or Plasma 135 mEq/L 134 - 153 [facility] Potassium [Moles/volume] in Serum or Plasma 3.5 mEq/L 3.6 - 5.0 L [facility] Chloride [Moles/volume] in Serum or Plasma 101 mEq/L 98 - 107 [facility] Carbon dioxide, total [Moles/volume] in Serum or Plasma 26 MEQ/L 22 - 30 [facility] Glucose [Mass/volume] in Serum or Plasma 355 MG/DL 65 - 110 H [facility] BUN 9 MG/DL 7 - 21 [facility] Creatinine [Mass/volume] in Serum or Plasma 0.6 MG/DL 0.7 - 1.5 L [facility] BUN/CREAT 15 8 - 27 [facility] al Protein [Mass/volume] in Serum or Plasma 6.0 G/DL 6.3 - 8.2 L [facility] Albumin [Mass/volume] in Serum or Plasma 3.6 G/DL 3.9 - 5.0 L [facility] Globulin [Mass/volume] in Serum by calculation 2.4 GM/DL 2.4 - 3.2 [facility] A/G RATIO 1.5 0.8 - 2.0 [facility] Calcium [Mass/volume] in Serum or Plasma 8.8 MG/DL 8.4 - 10.2 [facility] Bilirubin.total [Mass/volume] in Serum or Plasma <0.7 MG/DL 0.2 - 1.3 [facility] Alkaline phosphatase [Enzymatic activity/volume] in Serum or Plasma 70 U/L 38 - 126 [facility] Aspartate aminotransferase [Enzymatic activity/volume] in Serum or Plasma 11 U/L 5 - 40 [facility] Alanine aminotransferase [Enzymatic activity/volume] in Seru m or Plasma 15 U/L 7 - 56 [facility] Anion gap 3 in Serum or Plasma 8.0 mmol/L 8.0 - 16.0 [facility] AGE 65 yrs [facility] NON-AA GFR >60 mL/min [facility] ital AFR AMER GFR >60 mL/min [facility] Male GFR In terprentation [...] >32 mL/min Normal ID Date Data Source [id number] 02/03/2020 06:04:00 AM EDT [facility] Name Value Range Interpretation Code Description Data Raquel rce(s) Supporting Document(s) CBC W/AUTOMATED DIFF [facility] COMPLETE BLOOD COUNT Leukocytes [#/volume] in Blood by Automated count 6.2 10^3/uL 4.2 - 1 1.0 [facility] Erythrocytes [#/volume] in Blood by Automated count 3.76 10^6/uL 4. 50 - 6.30 L [facility] Hemoglobin [Mass/volume] in Blood 11.3 g/dL 14.0 - 16.0 L [facility] Hematocrit [Volume Fraction] of Blood by Automated count 33.0 % 4 1.0 - 51.0 L [facility] Erythrocyte mean corpuscular volume [Entitic volume] by Auto mated count 87.8 fL 80.0 - 94.0 [facility] Erythrocyte mean corpuscular hemoglobin [Entitic mass] by Automated count 30.1 pg 27.0 - 34.0 [facility] Erythrocyte mean corpuscular hemoglobin concentration [Mass/volume] by Automated count 34.2 g/dL 31.0 - 36.0 [facility] Erythrocyte distribution width [Ratio] by Automated count 13.3 % 11.5 - 14.8 [facility] Platelets [#/volume] in Blood by Automated count 221 10^3/uL 150 - 45 0 [facility] Platelet mean volume [Entitic volume] in Blood by Automated count 9.9 fL 7.4 - 10.4 [facility] Neutrophils/100 leukocytes in Blood by Automated count 33.3 % 37. 0 - 80.0 L [facility] Lymphocytes/100 leukocytes in Blood by Manual count 58.5 % 25.0 - 40.0 H [facility] Monocytes/100 leukocytes in Blood by Automated count 6.3 % 3.0 - 8.0 [facility] Eosinophils/100 leukocytes in Blood by Automated count 1.1 % 0.0 - 7.0 [facility] Basophils/100 leukocytes in Blood by Automated count 0.6 % 0.0 - 2.0 [facility] %IG 0.2 % 0.0 - 0.0 [facility] %NRBC 0.0 % 0.0 - 0.0 [facility] Neutrophils [#/volume] in Blood by Automated count 2.07 10^3/uL 2.00 - 6.90 [facility] Lymphocytes [#/volume] in Blood by Automated count 3.63 10^3/uL 0.60 - 3.40 H [facility] Monocytes [#/volume] in Blood by Automated count 0.39 10^3/uL 0.00 - 0.90 [facility] Eosinophils [#/volume] in Blood by Automated count 0.07 10^3/uL 0.00 - 0.70 [facility] Basophils [#/volume] in Blood by Automated count 0.04 10^3/uL 0.00 - 0.20 [facility] #IG 0.01 10^3/uL 0.00 - 0.10 [facility] #NRBC 0.00 10^3/uL 0.00 - 0.00 [facility] ospital MANUAL DIFF NOT INDICATED [facility] RBC MORPH NOT INDICATED [facility] ID Date Data Source [id number] 02/03/2020 04:49:00 AM EDT [facility] Name Value Range Interpretation Code Description Data Raquel rce(s) Supporting Document(s) TROPONIN T <0.01 NG/ML 0.00 - 0.10 [facility] ospital TROPONIN T0.1 ng/ml Recommended as the c linical threshold value forTroponin T. ID Date Data Source [id number] 02/02/2020 10:01:00 PM EDT [facility] Name Value Range Interpretation Code Description Data Raquel rce(s) Supporting Document(s) [facility] R [facility] COLOR yellow NORMAL: Yellow [facility] CLARITY clear NORMAL: Clear [facility] spital Specific gravity of Urine by Test strip 1.010 1.001 - 1.030 [facility] pH 5 5 - 9 [facility] Glucose [Mass/volume] in Urine by Test strip 1000 NORMAL: Negat savannah [facility] Bilirubin.total [Presence] in Urine by Test strip NEG NORMAL: Negative [facility] Ketones [Presence] in Urine by Test strip 5 NORMAL: Negative [facility] Protein [Mass/volume] in Urine by Test strip 15 NORMAL: Negat savannah [facility] Nitrite [Presence] in Urine by Test strip NEG NORMAL: Negative [facility] BLOOD NEG NORMAL: Negative [facility] Leukocyte esterase [Presence] in Urine by Test strip NEG SANDRA L: Negative [facility] Urobilinogen [Mass/volume] in Urine by Test strip NOR less jenniffer n 1.0 mg/dL [facility] MICROSCOPIC See Below [facility] WBC 0 - 1 NORMAL: NONE SEEN [facility] ID Date Data Source [id number] 02/02/2020 09:24:00 PM EDT [facility] Name Value Range Interpretation Code Description Data Raquel rce(s) Supporting Document(s) Magnesium [Mass/volume] in Serum or Plasma 2.1 MG/DL 1.7 - 2.2 [facility] ID Date Data Source [id number] 02/02/2020 09:24:00 PM T [facility] Name Value Range Interpretation Code Description Data Raquel rce(s) Supporting Document(s) Lipase [Enzymatic activity/volume] in Serum or Plasma 58 U/L 13 - 60 [facility] ID Date Data Source [id number] 02/02/2020 09:23:00 PM EDT [facility] Name Value Range Interpretation Code Description Data Raquel rce(s) Supporting Document(s) COMPREHENSIVE METABOLIC PANEL [facility] COMPREHENSIVE METABOLIC PANEL Sodium [Moles/volume] in Serum or Plasma 131 mEq/L 134 - 153 L [facility] Potassium [Moles/volume] in Serum or Plasma 3.8 mEq/L 3.6 - 5.0 [facility] Chloride [Moles/volume] in Serum or Plasma 92 mEq/L 98 - 107 L [facility] Carbon dioxide, total [Moles/volume] in Serum or Plasma 26 MEQ/L 22 - 30 [facility] Glucose [Mass/volume] in Serum or Plasma 443 MG/DL 65 - 110 HH [facility] CALL/ READ BACK MARTY IN ED [facility] BY: STEFFEN [facility] DATE/TIME [facility] BUN 12 MG/DL 7 - 21 [facility] Creatinine [Mass/volume] in Serum or Plasma 0.6 MG/DL 0.7 - 1.5 L [facility] BUN/CREAT 20 8 - 27 [facility] Protein [Mass/volume] in Serum or Plasma 7.9 G/DL 6.3 - 8.2 [facility] Albumin [Mass/volume] in Serum or Plasma 4.8 G/DL 3.9 - 5.0 [facility] Globulin [Mass/volume] in Serum by calculation 3.1 GM/DL 2.4 - 3.2 [facility] A/G RATIO 1.5 0.8 - 2.0 [facility] Calcium [Mass/volume] in Serum or Plasma 10.1 MG/DL 8.4 - 10.2 [facility] [facility] Bilirubin.total [Mass/volume] in Serum or Plasma <0.7 MG/DL 0.2 - 1.3 [facility] Alkaline phosphatase [Enzymatic activity/volume] in Serum or Plasma 91 U/L 38 - 126 [facility] Aspartate aminotransferase [Enzymatic activity/volume] in Serum or Plasma 15 U/L 5 - 40 [facility] Alanine aminotransferase [Enzymatic activity/volume] in Seru m or Plasma 22 U/L 7 - 56 [facility] Anion gap 3 in Serum or Plasma 13.0 mmol/L 8.0 - 16.0 [facility] AGE 65 yrs [facility] NON-AA GFR >60 mL/min [facility] ital AFR AMER GFR >60 mL/min [facility] Male GFR In terprentation [...] >32 mL/min Normal ID Date Data Source [id number] 02/02/2020 09:22:00 PM EDT [facility] Name Value Range Interpretation Code Description Data Raquel rce(s) Supporting Document(s) BNP 160 PG/ML 0 - 125 [facility] ID Date Data Source [id number] 02/02/2020 08:54:00 PM EDT [facility] Name Value Range Interpretation Code Description Data Raquel rce(s) Supporting Document(s) TROPONIN T <0.01 NG/ML 0.00 - 0.10 [facility] ospital TROPONIN T0.1 ng/ml Recommended as the c linical threshold value forTroponin T. ID Date Data Source [id number] 02/02/2020 08:33:00 PM EDT [facility] Name Value Range Interpretation Code Description Data Raquel rce(s) Supporting Document(s) CBC W/AUTOMATED DIFF [facility] COMPLETE BLOOD COUNT Leukocytes [#/volume] in Blood by Automated count 10.5 10^3/uL 4.2 - 11.0 [facility] Erythrocytes [#/volume] in Blood by Automated count 4.57 10^6/uL 4. 50 - 6.30 [facility] Hemoglobin [Mass/volume] in Blood 14.2 g/dL 14.0 - 16.0 [facility] Hematocrit [Volume Fraction] of Blood by Automated count 39.6 % 4 1.0 - 51.0 L [facility] Erythrocyte mean corpuscular volume [Entitic volume] by Auto mated count 86.7 fL 80.0 - 94.0 [facility] Erythrocyte mean corpuscular hemoglobin [Entitic mass] by Automated count 31.1 pg 27.0 - 34.0 [facility] Erythrocyte mean corpuscular hemoglobin concentration [Mass/volume] by Automated count 35.9 g/dL 31.0 - 36.0 [facility] Erythrocyte distribution width [Ratio] by Automated count 13.4 % 11.5 - 14.8 [facility] Platelets [#/volume] in Blood by Automated count 265 10^3/uL 150 - 45 0 [facility] Platelet mean volume [Entitic volume] in Blood by Automated count 9.7 fL 7.4 - 10.4 [facility] Neutrophils/100 leukocytes in Blood by Automated count 48.9 % 37. 0 - 80.0 [facility] Lymphocytes/100 leukocytes in Blood by Manual count 42.0 % 25.0 - 40.0 H [facility] Monocytes/100 leukocytes in Blood by Automated count 7.8 % 3.0 - 8.0 [facility] Eosinophils/100 leukocytes in Blood by Automated count 0.4 % 0.0 - 7.0 [facility] Basophils/100 leukocytes in Blood by Automated count 0.6 % 0.0 - 2.0 [facility] %IG 0.3 % 0.0 - 0.0 [facility] %NRBC 0.0 % 0.0 - 0.0 [facility] Neutrophils [#/volume] in Blood by Automated count 5.14 10^3/uL 2.00 - 6.90 [facility] Lymphocytes [#/volume] in Blood by Automated count 4.41 10^3/uL 0.60 - 3.40 H [facility] Monocytes [#/volume] in Blood by Automated count 0.82 10^3/uL 0.00 - 0.90 [facility] Eosinophils [#/volume] in Blood by Automated count 0.04 10^3/uL 0.00 - 0.70 [facility] Basophils [#/volume] in Blood by Automated count 0.06 10^3/uL 0.00 - 0.20 [facility] #IG 0.03 10^3/uL 0.00 - 0.10 [facility] #NRBC 0.00 10^3/uL 0.00 - 0.00 [facility] MANUAL DIFF NOT INDICATED [facility] RBC MORPH NOT INDICATED [facility] spital ID Date Data Source [id number] 01/07/2020 07:39:00 [place] [address] RESPIRATORY CARE REPORT ==== ---------NAME------- NUMBER SEX AGE ADMIT DISC. XRAY# F/C AUTUMN Garcia [id number] M 64 01/06/20 01/06/20 [id number] MB4 E/R DATE OF : 1955 M/R# [id number] #: [id number] TR-02 LOCATION: EMERGENCY DEPT [facility] [id number] COMP LETE:01/07/20 07:15 [place] [id number] PHYSICIAN: WHITLEY OLMSTEAD Name Value Range Interpretation Code Description Data Raquel rce(s) Supporting Document(s) ID Date Data Source [id number] 01/07/2020 11:59:00 AM EDT [facility] [address] [place] [address] PHONE: [phone] FAX: [phone] Name .................. : DIMA Garcia Acct Number.................. : [id number] ROOM. ................. : TR- Number ................... : [id number] Stay type ............. : E/R Discharge Date......... ... : 01/06/20 Admit Date ......... : 01/06/20 Admit Phys .................... : WHITLEY OLMSTEAD Date of ....... : 1955 Family Phys ................... : TRU WATERMAN Phone .................. : [phone] Age ................................ : 64 Film# .................. .:[id number] Sex ................................. : M Unsigned transcriptions are preliminary reports and do not represent a medical or legal document CT THORAX W/O CONTRAST [id number] COMPLETE:01/06/20 20:50 BEM 06949 Reason(s): fall, rig ht rib injury CT [...] By Wenceslao Hudson M.D. , 01/07/20 11:59, [facility] Transcribe Initials: CHELLY , Transcribe Date: 01/06/20 21:35, Dictation Date: Page 1 of 2 [place] [address] PHONE: [phone] FAX: [phone] Name .................. : DIMA Garcia Acct Number.................. : [id number] ROOM. ................. : TR-02 Number ................... : [id number] Stay type ............. : E/R Discharge Date......... ... : 01/06/20 Admit Date ......... : 01/06/20 Admit Phys .................... : Andre OLMSTEAD Date of ....... : 1955 Family Phys ................... : TRU WATERMAN Phone .................. : [phone] Age ................................ : 64 Film# .................. .:[id number] Sex ................................. : M Unsigned transcriptions are preliminary reports and do not represent a medical or legal document CT THORAX W/O CONTRAST [id number] COMPLETE:01/06/20 20:50 BEM 91515 Reason(s): fall, right rib injury Copy for: EMERGENCY DEPT via modem Copy f or: 710 MED REC DISCHARGED Page 2 of 2 Name Value Range Interpretation Code Description Data Raquel rce(s) Supporting Document(s) ID Date Data Source [id number] 01/06/2020 07:17:00 PM EDT [facility] 1 OrderSheet [facility] Emergency Department [address] [place] [address] Phone #: ext- [phone] 01/06/2020 19:14 Patient: DONNY FAITH Sex: M : 1955 Age: 64yWEIGHT:72.5 kg (S) HEIGHT:68 inches (S) BMI:24.3ALLERGIES: Benadryl, [place], Motrin, Paxil, Penicillins, ThorazineCHIEF COMPLAINT: became dizzy, [...] Arreaga Tiffany ER M.D.; Tech1 2 OrderSheet [facility] Emergency Department [address] [place] [address] Phone #: ext- [phone] 01/06/2020 19:14 Patient: DONNY FAITH Sex: M : 1955 Age: 64y[Electronically signed by Denver Arreaga M.D. (00:30 01/07/2020)][Electronically signed by Brandy Batista R.N. (01:52 01/07/2020)][Electronically locked by Brandy Batista R.N. (01:52 01/07/2020)] Name Value Range Interpretation Code Description Data Raquel rce(s) Supporting Document(s) ID Date Data Source [id number] 01/06/2020 07:17:00 PM EDT [facility] 1 Medication Reconciliation Report [facility] Emergency Department [address] [place] [address] Phone #: ext- [phone] 01/06/2020 19:14 Patient: DONNY FAITH Sex: M : 1955 Age: 64yWeight: 72.5 kgHeight/Length: 68 in.BMI: 24.3ALLERGIES: Benadryl, [place], Motrin, Paxil, Penicillins, ThorazineThe patient's Home Medications are listed below:CONTINUE TAKING THE FOLLOWING MEDICATIONS: Advair Diskus Inhalation (500-50 mcg/dose) 1 inhalation, 2x a day Advocate Insulin Pen [place] Aspir-81 Oral (81 mg) 1 tablet, daily Basaglar 20 unita, at bedtime [facility] Claritin Oral (5 mg) 1 tablet, daily, [...] 2x a day 2 Medication Reconciliation Report [facility] Emergency Department [address] [place] [address] Phone #: ext- [phone] 01/06/2020 19:14 --------- [...] Name Value Range Interpretation Code Description Data [facility](s) Supporting Document(s) ID Date Data Source [id number] 01/06/2020 07:17:00 PM EDT [place] [address] Medication Administration Record [facility] Emergency Department [address] [place] [address] Phone #: ext- [phone] 01/06/2020 19:14 Patient: DONNY FAITH Sex: M : 1955 Age: 64yWeight: 72.5 kgHeight/Length: 68 inBMI: 24.3ALLERGIES: Benadryl, [place], Motrin, Paxil, Penicillins, ThorazineDate/Time Medication Administered Medication Ordered Name Value Range Interpretation Code Description Data Raquel e(s) Supporting Document(s) ID Date Data Source [id number] 01/06/2020 07:17:00 PM EDT [facility] 1 General Instructions [facility] Emergency Department [address] [place] [address] Phone #: ext- [phone] 01/06/2020 19:14 Patient: [...] inhalation 2x a day. Advocate Insulin Pen [place]*. Aspir-81 Oral : Tablet Delayed Release 81 mg, 1 tablet daily. Basaglar* : 20 unita, at bedtime. [facility]* : [place]. Claritin Oral : Tablet Chewable 5 mg, [...] : 2x a day. 2 General Instructions [facility] Emergency Department [address] [place] [address] Phone #: ext- [phone] 01/06/2020 19:14 Patient: [...] inflammation, swelling and pain. 3 General Instructions [facility] Emergency Department [address] [place] [address] Phone #: ext- [phone] 01/06/2020 19:14 Patient: [...] falls. Use night lights. 4 General Instructions [facility] Emergency Department [address] [place] [address] Phone #: ext- [phone] 01/06/2020 19:14 Patient: DONNY FAITH Sex: M : 1955 Age: 64y Have your eyes tested to be sure you are seeing well, even if you already wear glasses.Follow-upFollow up with your healthcare provider, or as advised. If X-rays or CT scans were done, you will benotified if there is a change in the reading, especially if it affects treatment.Call [phone] if any of these happen: Trouble breathing [...] in vomit, stools (black or red color) [id number] [employer]. [address] [place] [address]. All rights reserved. This information is not intended as asubstitute for professional medical care. Always follow your healthcare professional's instructions.Rib Fracture 5 General Instructions [facility] Emergency Department [address] [place] [address] Phone #: ext- [phone] 01/06/2020 19:14 Patient: [...] of pain and swelling. You may use [id number] pain medicine to control pain, unless another pain medicine 6 General Instructions [facility] Emergency Department [address] [place] [address] Phone #: ext- [phone] 01/06/2020 19:14 Patient: [...] new findings that may affect your care.Call [phone] [phone] if you have: Dizziness, weakness or fainting [...] healthcare provider Congested cough, nausea, or vomiting [id number] [employer]. [address] [place] [address], [place] [address]. All rights reserved. This information is not intended as asubstitute for professional medical care. Always follow your healthcare professional's instructions. You have been given the following additional information: Mechanical Fall Rib Fracture 7 General Instructions [facility] Emergency Department [address] [place] [address] Phone #: ext- [phone] 01/06/2020 19:14 Patient: DONNY FAITH Sex: M : 1955 Age: 64y(Electronically signed by Denver Arreaga M.D. 01/07/2020 00:30) Name Value Range Interpretation Code Description Data Raquel rce(s) Supporting Document(s) ID Date Data Source [id number] 01/06/2020 07:17:00 PM EDT [facility] 1 Clinical Report - Nurses [facility] Emergency Department [address] [place] [address] Phone #: ext- [phone] 01/06/2020 19:14 Patient: DONNY FAITH Sex: M [...] ribs. No redness or deformity noted.). Treatment CUSTOM GARMENT DESIGNER: None. SEPSIS SCREEN: Sepsis Screen negative. No [...] inhalation, 2x a day. Advocate Insulin Pen [place]. Aspir-81 Oral (Tablet Delayed Release 81 mg) 1 tablet, daily. Basaglar 20 unita, at bedtime. [facility]. Claritin Oral (Tablet Chewable 5 mg) 1 [...] HFA Inhalation. 2 Clinical Report - Nurses [facility] Emergency Department [address] [place] [address], [place] [address] Phone #: ext- [phone] 01/06/2020 19:14 Patient: [...] pt on day 3. --19:01/06/20 Cecilia Philip R.N.AllergiesBenadryl.[place].Motrin.Paxil.Penicillins.Thorazine. --01/06/20 Cecilia Philip R.N.The following entry was struck by Denver Arreaga M.D., 20:49 (01/06/20) Reason - wrong value.Acetaminophen. --01/06/20 Cecilia Philip R.N. .PROBLEMS:Dementia.CVA - Cerebrovascular Accident.Diabetes Mellitus Type 2.Diabetes Mellitus.Emphysema.COPD - Chronic Obstructive Pulmonary Disease.Bleeding Ulcer.Asthma.Arrhythmia.Chest Wall Pain.Chest Pain.Bronchitis.Seizure.Rib Fracture.Parkinson's Disease.Syncope.Sprain.Sleep Apnea.Hypertension.Hypercholesterolemia.Heart Disease.Neck Pain.MN.Lung Disease. --01/06/20 Cecilia Philip R.N. 3 Clinical Report - Nurses [facility] Emergency Department [address] [place] [address] Phone #: ext- [phone] 01/06/2020 19:14 Patient: [...] --19:21 01/06/20 4 Clinical Report - Nurses [facility] Emergency Department [address] [place] [address] Phone #: ext- [phone] 01/06/2020 19:14 Patient: [...] Brakes of bed on. --19:21 01/06/20 Cecilia Phiilp R.N. 19:29 01/06/20. BP: 116/78. MAP: 90. HR: 83. RR: 25. O2 saturation: 100%. --19:30 01/06/20 [place] 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, Ivon, ER Tech1 20:27 01/06/20. BP: 122/82. MAP: 95. HR: 82. RR: 25. O2 saturation: 99%. --20:27 01/06/20 [facility] Tech, Ivon, ER Tech1 20:09 01/06/20. Reassurance [...] Patient verbalized understanding. Written instructions provided in Vietnamese. The patient was discharged by the physician. [...] rce(s) Supporting Document(s) ID Date Data Source [id number] 01/06/2020 07:17:00 PM EDT [facility] 1 Clinical Report - Physicians/Mid Levels [facility] Emergency Department [address] [place] [address] Phone #: ext- [phone] 01/06/2020 19:14 [id number] Sex: M : 1955 Age: 64y Time [...] Sleep Apnea. 2 Clinical Report - Physicians/Mid [facility] Emergency Department [address] [place] [address] Phone #: ext- [phone] 01/06/2020 19:14 Patient: DONNY FAITH Sex: M : 1955 Age: 64yHypertension.Hypercholesterolemia.Heart Disease.Neck Pain.MN.Lung Disease.Sinusitis [Resolved].Lower Extremity Pain [Resolved].Upper Extremity Pain [Resolved].Additional Surgeries:Appendectomy.Cholecystectomy.Medications:Advair Diskus Inhalation (Aerosol Powder Breath Activated 500-50 mcg/dose) 1 inhalation, 2x a day.Advocate Insulin Pen [place].Aspir-81 Oral (Tablet Delayed Release 81 mg) 1 tablet, daily.Basaglar 20 unita, at bedtime.[facility].Claritin Oral (Tablet Chewable 5 mg) 1 tablet, [...] pack 1 tab day pt on day 3.Allergies:Benadryl.[place].Motrin.Paxil. 3 Clinical Report - Physicians/Mid Levels [facility] Emergency Department [address] [place] [address] Phone #: ext- [phone] 01/06/2020 19:14 --------- [...] Normal ST and T waves. old septal MN. EKG unchanged when compared with prior EKG. [...] COUNT 4 Clinical Report - Physicians/Mid Levels [facility] Emergency Department [address] [place] [address] Phone #: ext- [phone] 01/06/2020 19:14 Patient: [...] Male GFR Interprentation 20-49 yrs >60 mL/min [id number] yrs >56 mL/min Normal 60-69 yrs >49 mL/min Normal 70-79yrs>42 mL/min Normal 80 and above >35 mL/min Normal Female GFRInterpretation 20-39 yrs >60 mL/min Normal 40-49 yrs >58 mL/minNormal 50-59 yrs >51 mL/min Normal 60-69 yrs >45 mL/min Smrmwu30-66 yrs >39 mL/min Normal 80 and above >32 mL/min Normal 5 Clinical Report - Physicians/Mid Levels [facility] Emergency Department [address] [place] [address] Phone #: ext- [phone] 01/06/2020 19:14 Patient: DONNY FAITH Sex: M : 1955 Age: 64y PT/PTT: (ROSARIO: 01/06/2020 19:50) ( [facility] 01/06/2020 20:22) Final results Test Result Flag Units (Reference) PROTIME 13.2 SECONDS (11.0 - 15.5) INR 0.99 (0.93 - 1.23) PTT 30.0 SECONDS (24.8 - 36.7) \\BLDo\\INR INTERPRETATION\\BLDx\\ Therapeutic range for Coumadin and related oral anticoagulants. -International Normalized Ratio (INR): 2.0 - 3.0 for Venous Thrombosis, Pulmonary Embolus, Tissue heart valves, Acute MN Atrial Fibrillation, Valvular heart disease and recurrent Systemic Embolism. -International Normalized Ratio (INR): 2.5 - 3.5 for Mechanical Prosthetic valve. Troponin-T: (ROSARIO: 01/06/2020 19:50) ( [facility] 01/06/2020 20:33) Final results Test Result Flag Units (Reference) TROPONIN T <0.01 NG/ML (0.00 - 0.10) TROPONIN T0.1 ng/ml Recommended as the clinical threshold value forTroponin T. CPK: (ROSARIO: 01/06/2020 19:50) ( [facility] 01/06/2020 20:33) Final results Test Result Flag [...] was requested by: Denver Arreaga Reference #: [id number] Others' Prescriptions Patient Name: Donny FaithBirth Date: 1955 Address: [address] [place], [place] [address]Sex: Male Rx Written Rx Dispensed Drug Quantity Days Supply Prescriber Name Payment Method Dispenser 12/17/2019 12/17/2019 acetaminophen-cod #3 tablet 60 30 Rufus Ott MD Medicare [facility] 09/28/2019 10/15/2019 acetaminophen-cod #3 tablet 60 30 Rufus Ott MD Medicare [facility] 06/22/2019 06/25/2019 acetaminophen-cod #3 tablet 60 30 Rufus Ott MD Medicare [facility] 06/18/2019 06/19/2019 hydrocodone-acetaminophen 5-325 mg tablet 6 3 [place] Leroy [facility] 05/25/2019 05/25/2019 acetaminophen-cod #3 tablet 60 30 Rufus Ott MD Medicare 6 Clinical Report - Physicians/Mid Levels [facility] Emergency Department [address] [place] [address] Phone #: ext- [phone] 01/06/2020 19:14 Patient: DONNY FAITH Sex: M : 1955 Age: 64y [employer] 04/24/2019 04/24/2019 acetaminophen-cod #3 tablet 60 30 Rufus Ott MD Medicare [facility] 03/23/2019 03/23/2019 acetaminophen-cod #3 tablet 60 30 Rufus Ott MD Medicare [facility] 02/18/2019 02/18/2019 acetaminophen-cod #3 tablet 60 30 Rufus Ott MD Medicare [facility] Patient Name: Donny FaithBirth Date: 1955 Address: [address] [place] [id number]: Male Rx Written Rx Dispensed Drug Quantity Days Supply Prescriber Name Payment Method Dispenser 07/02/2019 07/02/2019 oxycodone-acetaminophen 5-325 mg tablet 30 15 Marybeth Morin (SCALEMAKER) [facility] Patient Name: Donny FaithBirth Date: 1955 Address: [address] [address]Fsc: Male Rx Written Rx Dispensed Drug Quantity Days Supply Prescriber Name Payment Method Dispenser 01/12/2019 01/17/2019 acetaminophen-cod #3 tablet 60 15 Rufus Ott MD Medicare [place] [facility] - Drugs marked with an asterisk [...] stumbling. 7 Clinical Report - Physicians/Mid Levels [facility] Emergency Department [address] [place] [address] Phone #: ext- [phone] 01/06/2020 19:14 Patient: [...] inhalation 2x a day. Advocate Insulin Pen [place]*. Aspir-81 Oral : Tablet Delayed Release 81 mg, 1 tablet daily. Basaglar* : 20 unita, at bedtime. [facility] : [place]. Claritin Oral : Tablet Chewable 5 mg, [...] paper. 8 Clinical Report - Physicians/Mid Levels [facility] Emergency Department [address] [place] [address] Phone #: ext- [phone] 01/06/2020 19:14 Patient: [...] rce(s) Supporting Document(s) ID Date Data Source [id number] 01/06/2020 08:33:00 PM EDT [facility] Name Value Range Interpretation Code Description Data [facility](s) Supporting Document(s) TROPONIN T <0.01 NG/ML 0.00 - 0.10 [facility] ospital TROPONIN T0.1 ng/ml Recommended as the c linical threshold value forTroponin T. ID Date Data Source [id number] 01/06/2020 08:33:00 PM EDT [facility] Name Value Range Interpretation Code Description Data Raquel rce(s) Supporting Document(s) Creatine kinase [Enzymatic activity/volume] in Serum or Plasma 1 92 U/L 30 - 170 H [facility] ID Date Data Source [id number] 01/06/2020 08:33:00 PM EDT [facility] Name Value Range Interpretation Code Description Data Raquel rce(s) Supporting Document(s) COMPREHENSIVE METABOLIC PANEL [facility] COMPREHENSIVE METABOLIC PANEL Sodium [Moles/volume] in Serum or Plasma 134 mEq/L 134 - 153 [facility] Potassium [Moles/volume] in Serum or Plasma 3.6 mEq/L 3.6 - 5.0 [facility] Chloride [Moles/volume] in Serum or Plasma 96 mEq/L 98 - 107 L [facility] Carbon dioxide, total [Moles/volume] in Serum or Plasma 23 MEQ/L 22 - 30 [facility] Glucose [Mass/volume] in Serum or Plasma 262 MG/DL 65 - 110 H [facility] BUN 7 MG[facility]DL 7 - [facility] Creatinine [Mass/volume] in Serum or Plasma 0.7 MG/DL 0.7 - 1.5 [facility] BUN/CREAT 10 8 - 27 [facility] al Protein [Mass/volume] in Serum or Plasma 9.0 G/DL 6.3 - 8.2 H [facility] Albumin [Mass/volume] in Serum or Plasma 5.3 G/DL 3.9 - 5.0 H [facility] Globulin [Mass/volume] in Serum by calculation 3.7 GM/DL 2.4 - 3.2 H [facility] A/G RATIO 1.4 0.8 - 2.0 [facility] Calcium [Mass/volume] in Serum or Plasma 10.0 MG/DL 8.4 - 10.2 [facility] Bilirubin.total [Mass/volume] in Serum or Plasma <0.7 MG/DL 0.2 - 1.3 [facility] Alkaline phosphatase [Enzymatic activity/volume] in Serum or Plasma 121 U/L 38 - 126 [facility] Aspartate aminotransferase [Enzymatic activity/volume] in Serum or Plasma 19 U/L 5 - 40 [facility] Alanine aminotransferase [Enzymatic activity/volume] in Seru m or Plasma 24 U/L 7 - 56 [facility] Anion gap 3 in Serum or Plasma 15.0 mmol/L 8.0 - 16.0 [facility] 64 [facility] NON-AA GFR >60 mL/min [facility] [facility] AFR AMER GFR >60 mL/min [facility] Male GFR In terprentation [...] >32 mL/min Normal ID Date Data Source [id number] 01/06/2020 08:22:00 PM EDT [facility] Name Value Range Interpretation Code Description Data Raquel rce(s) Supporting Document(s) Prothrombin time (PT) 13.2 SECONDS 11.0 - 15.5 [facility] INR in Platelet poor plasma by Coagulation assay 0.99 0.93 - 1. 23 [facility] aPTT in Blood by Coagulation assay 30.0 SECONDS 24.8 - 36.7 [facility] \\BLDo\\INR INTERPRETATION\\BLDx\\ Therapeutic range for Coumadin and related oral anticoagulants. - International Normalized Ratio (INR): 2.0 - 3.0 for Venous Thrombosis, Pulmonary Embolus, Tissue heart valves, Acute MN Atrial Fibrillation, Valvular heart disease and recurrent Systemic Embolism. - International Normalized Ratio (INR): 2.5 - 3.5 for Mechanical Prosthetic valve. ID Date Data Source [id number] 01/06/2020 08:14:00 PM EDT [facility] Name Value Range Interpretation Code Description Data Raquel rce(s) Supporting Document(s) CBC W/AUTOMATED DIFF [facility] COMPLETE BLOOD COUNT Leukocytes [#/volume] in Blood by Automated count 6.7 10^3/uL 4.2 - 1 1.0 [facility] Erythrocytes [#/volume] in Blood by Automated count 4.95 10^6/uL 4. 50 - 6.30 [facility] Hemoglobin [Mass/volume] in Blood 15.1 g/dL 14.0 - 16.0 [facility] Hematocrit [Volume Fraction] of Blood by Automated count 43.6 % 4 1.0 - 51.0 [facility] Erythrocyte mean corpuscular volume [Entitic volume] by Auto mated count 88.1 fL 80.0 - 94.0 [facility] Erythrocyte mean corpuscular hemoglobin [Entitic mass] by Automated count 30.5 pg 27.0 - 34.0 [facility] Erythrocyte mean corpuscular hemoglobin concentration [Mass/volume] by Automated count 34.6 g/dL 31.0 - 36.0 [facility] Erythrocyte distribution width [Ratio] by Automated count 14.1 % 11.5 - 14.8 [facility] Platelets [#/volume] in Blood by Automated count 266 10^3/uL 150 - 45 0 [facility] Platelet mean volume [Entitic volume] in Blood by Automated count 9.3 fL 7.4 - 10.4 [facility] Neutrophils/100 leukocytes in Blood by Automated count 37.3 % 37. 0 - 80.0 [facility] Lymphocytes/100 leukocytes in Blood by Manual count 49.5 % 25.0 - 40.0 H [facility] Monocytes/100 leukocytes in Blood by Automated count 8.0 % 3.0 - 8.0 [facility] Eosinophils/100 leukocytes in Blood by Automated count 4.0 % 0.0 - 7.0 [facility] Basophils/100 leukocytes in Blood by Automated count 0.9 % 0.0 - 2.0 [facility] %IG 0.3 % 0.0 - 0.0 [facility] %NRBC 0.0 % 0.0 - 0.0 [facility] Neutrophils [#/volume] in Blood by Automated count 2.51 10^3/uL 2.00 - 6.90 [facility] Lymphocytes [#/volume] in Blood by Automated count 3.33 10^3/uL 0.60 - 3.40 [facility] Monocytes [#/volume] in Blood by Automated count 0.54 10^3/uL 0.00 - 0.90 [facility] Eosinophils [#/volume] in Blood by Automated count 0.27 10^3/uL 0.00 - 0.70 [facility] Basophils [#/volume] in Blood by Automated count 0.06 10^3/uL 0.00 - 0.20 [facility] #IG 0.02 10^3/uL 0.00 - 0.10 [facility] #NRBC 0.00 10^3/uL 0.00 - 0.00 [facility] MANUAL DIFF NOT INDICATED [facility] RBC MORPH NOT INDICATED [facility] ID Date Data Source [id number] 11/13/2019 10:57:00 AM EDT [facility] Name: DONNY FAITH : 1955 Age: 64 MR#: [id number] Admit Date: 11/10/19 Provider: Hao Vallejo Room [...] initially presented to the emergency department at [facility] on 11/09 after a fall and possible syncope. CT at [place] was negative for acute hemorrhage, but bilateral [...] home. Vital signs today: Temp 97.3 F, DE 88, RR 20, BP 110/69 Most recent [...] not indicated. This note was dictated using [employer] voice recognition software. Most Recent Lab Results: [...] % (Auto) 58.9, Lymph % (Auto) 27.3, [place] % (Auto) 10.0, Eos % (Auto) 2.8, [...] initially presented to the emergency department at [facility] on 11/09 after a fall and possible syncope. CT at [place] was negative for acute hemorrhage, but bilateral [...] home. Vital signs today: Temp 97.3 F, DE 88, RR 20, BP 110/69 Most recent [...] not indicated. This note was dictated using [employer] voice recognition software. Exam Condition Vital Signs [...] Order (Routine); Ordered 11/13/19 Ordered By: Hao Valljeo Dictated by: <Electronically signed by Hao VERDE> Hao VERDE 11/13/19 1112 Hao Vallejo SIGNATURE DA Report Cosigners: <<Signature on File>> Michael Oswald MD 11/13/19 1226 <Electronically signed by Michael Oswald MD> Michael Oswald MD 11/13/19 1226 D: LUZ MARINA 11/13/19 1057 T: LUZ MARINA 11/13/19 1057 CC: Name Value Range Interpretation Code Description Data Raquel rce(s) Supporting Document(s) ID Date Data Source [id number] 11/13/2019 05:40:00 AM EDT [facility] Name Value Range Interpretation Code Description Data Raquel rce(s) Supporting Document(s) Leukocytes [#/volume] in Blood by Automated count 9.3 10*3/uL 4.45-10 .71 N [facility] Erythrocytes [#/volume] in Blood by Automated count 4.35 10*6/uL 4.3- 6.1 N [facility] Hemoglobin [Moles/volume] in Blood 13.5 g/dL 13-18 N [facility] Hematocrit [Volume Fraction] of Blood by Automated count 38.9 % 42-52 Below low normal [facility] Erythrocyte mean corpuscular volume [Ent itic volume] in Cord blood by Automated count 89.4 fL 80-96 N [facility] ital Erythrocyte mean corpuscular hemoglobin [Entitic mass] by Automated count 31.0 pg 27-31 N [facility] l Erythrocyte mean corpuscular hemoglobin concentration [Mass/volume] in Cord blood 34.7 g/dL 33-37 N [facility] ital Erythrocyte distribution width [Entitic volume] by Automated count 14 % 11-15 N [facility] Platelets [#/volume] in Blood by Automated count 226 10*3/uL 130-472 N [facility] Platelet mean volume [Entitic volume] in Blood 9.1 fL 9.1-13.1 N [facility] Neutrophils/100 leukocytes in Blood by Automated count 58.9 % 41- 77 N [facility] Neutrophils [#/volume] in Blood by Automated count 5.5 U 1.7-7.6 N [facility] Lymphocytes/100 leukocytes in Blood by Automated count 27.3 % 14- 46 N [facility] Lymphocytes [#/volume] in Blood by Automated count 2.5 U 0.6-4.6 N [facility] Monocytes/100 leukocytes in Blood by Automated count 10.0 % 4-12 N [facility] Monocytes [#/volume] in Blood by Automated count 0.9 U 0.2-1.2 N [facility] Eosinophils/100 leukocytes in Blood by Automated count 2.8 % 0-7 N [facility] Eosinophils [#/volume] in Blood by Automated count 0.3 U 0.0-0.5 N [facility] Basophils/100 leukocytes in Blood by Automated count 0.8 % 0.4-1 .3 N [facility] Basophils [#/volume] in Blood by Automated count 0.1 U 0.0-0.2 [facility] NUCLEATED RED BLOOD CELL 0 % [facility] NUCLEATED RED BLOOD CELL# 0 U [facility] Immature granulocytes [Presence] in Blood by Automated count 0-2 N [facility] Immature granulocytes [#/volume] in Blood by Automated count 0.0 U 0-0.1 N [facility] Manual Differential panel - Blood NO [facility] ID Date Data Source [id number] 11/13/2019 06:17:00 AM EDT [facility] Name Value Range Interpretation Code Description Data Raquel rce(s) Supporting Document(s) Urea nitrogen [Mass/volume] in Serum or Plasma 16 mg/dL 9-23 N [facility] Sodium [Moles/volume] in Serum or Plasma 137 mmol/L 132-146 N [facility] Potassium [Moles/volume] in Serum or Plasma 3.8 mmol/L 3.5-5.5 [facility] Chloride [Moles/volume] in Serum or Plasma 107 mmol/L 99-109 N [facility] Carbon dioxide, total [Moles/volume] in Serum or Plasma 25 mmol/L 20 -31 N [facility] Anion gap in Serum or Plasma 9 mmol/L 8-16 [facility] Glucose [Mass/volume] in Serum or Plasma 254 mg/dL 74-106 Above high normal [facility] Creatinine 0.8 mg/dL 0.5-1.1 [facility] Glomerular filtration rate/1.73 sq M.pre dicted [Volume Rate/Area] in Serum or Plasma Greater Than 60 ABOVE 60 [facility] Alanine aminotransferase [Enzymatic acti vity/volume] in Serum or Plasma by With P-5'-P 20 U/L 10-49 [facility] ital Aspartate aminotransferase [Enzymatic ac tivity/volume] in Serum or Plasma by With P-5'-P 14 U/L 0-33 [facility] pital Alkaline phosphatase [Enzymatic activity/volume] in Serum or Plasma 84 U/L 45-129 N [facility] Calcium [Mass/volume] in Serum or Plasma 8.7 mg/dL 8.5-10.1 [facility] Bilirubin.total [Mass/volume] in Serum or Plasma 0.4 mg/dL 0.3-1.2 [facility] Albumin [Mass/volume] in Serum or Plasma by Bromocresol purple (BCP) dye binding method 3.2 g/dL 3.2-4.8 [facility] ital Protein [Mass/volume] in Serum or Plasma 6.8 g/dL 5.7-8.2 [facility] ID Date Data Source [id number] 11/12/2019 06:53:00 PM EDT [facility] Name: DONNY FAITH : 1955 Age: 64 MR#: [id number] Admit Date: 11/10/19 Provider: Hao Vallejo Room [...] MD> 11/13/19799 D: LUZ MARINA 11/13/19716 [facility] 11/13/19716 CC: Subjective-ROS Date of service Date of service:: 11/12/19 Review of Systems Attestation/Length Of Stay: Patient is a pleasant 64-year-old male whom we are following status post bilateral posterior lateral rib fractures. He presented to the ED at [facility] on November 09 after a fall, possibly [...] Admit to Inpatient, Acute [STATUS] Routine Location: [facility] Primary diagnosis: B Rib Fracture, Syncope Admitting [...] % (Auto) 51.0, Lymph % (Auto) 34.1, [place] % (Auto) 11.7, Eos % (Auto) 2.5, [...] rce(s) Supporting Document(s) ID Date Data Source [id number] 11/16/2019 07:07:00 PM [facility] Name Value Range Interpretation Code Description Data Raquel rce(s) Supporting Document(s) Levetiracetam (Keppra) Level 9.5 ug/mL 10.0-40.0 [facility] This test was developed and its performa nce characteristicsdetermined by [employer]. It has not been cleared orapproved by the Food and Drug Administration.Performed at: [address] [id number] Director: Neal Morris MD, Phone: [phone] ID Date Data Source [id number] 11/16/2019 07:07:00 PM [facility] Name Value Range Interpretation Code Description Data Raquel rce(s) Supporting Document(s) Topiramate [Mass/volume] in Serum or Plasma 3.5 ug/mL 2.0-25.0 [facility] This test was developed and its performa nce characteristicsdetermined by [employer]. It has not been cleared orapproved by the Food and Drug Administration. Detection Limit = 1.0Performed at: [address] [id number] Director: Neal Morris MD, Phone: [phone] ID Date Data Source [id number] 11/12/2019 05:41:00 AM EDT [facility] Name Value Range Interpretation Code Description Data Raquel rce(s) Supporting Document(s) Leukocytes [#/volume] in Blood by Automated count 8.1 10*3/uL 4.45-10 .71 N [facility] Erythrocytes [#/volume] in Blood by Automated count 4.22 10*6/uL 4.3-6.1 Below low normal [facility] Hemoglobin [Moles/volume] in Blood 13.1 g/dL 13-18 N [facility] Hematocrit [Volume Fraction] of Blood by Automated count 37.5 % 42-52 Below low normal [facility] Erythrocyte mean corpuscular volume [Ent itic volume] in Cord blood by Automated count 88.9 fL 80-96 N [facility] ital Erythrocyte mean corpuscular hemoglobin [Entitic mass] by Automated count 31.0 pg 27-31 N [facility] l Erythrocyte mean corpuscular hemoglobin concentration [Mass/volume] in Cord blood 34.9 g/dL 33-37 N [facility] ital Erythrocyte distribution width [Entitic volume] by Automated count 14 % 11-15 N [facility] Platelets [#/volume] in Blood by Automated count 219 10*3/uL 130-472 N [facility] Platelet mean volume [Entitic volume] in Blood 9.0 fL 9.1-13. 1 Below low normal [facility] Neutrophils/100 leukocytes in Blood by Automated count 51.0 % 41- 77 N [facility] Neutrophils [#/volume] in Blood by Automated count 4.1 U 1.7-7.6 N [facility] Lymphocytes/100 leukocytes in Blood by Automated count 34.1 % 14- 46 N [facility] Lymphocytes [#/volume] in Blood by Automated count 2.8 U 0.6-4.6 N [facility] Monocytes/100 leukocytes in Blood by Automated count 11.7 % 4-12 N [facility] Monocytes [#/volume] in Blood by Automated count 1.0 U 0.2-1.2 N [facility] Eosinophils/100 leukocytes in Blood by Automated count 2.5 % 0-7 N [facility] Eosinophils [#/volume] in Blood by Automated count 0.2 U 0.0-0.5 N [facility] Basophils/100 leukocytes in Blood by Automated count 0.5 % 0.4-1 .3 N [facility] Basophils [#/volume] in Blood by Automated count 0.0 U 0.0-0.2 N [facility] NUCLEATED RED BLOOD CELL 0 % [facility] NUCLEATED RED BLOOD CELL# 0 U [facility] Immature granulocytes [Presence] in Blood by Automated count 0-2 N [facility] Immature granulocytes [#/volume] in Blood by Automated count 0.0 U 0-0.1 N [facility] Manual Differential panel - Blood NO [facility] ID Date Data Source [id number] 11/12/2019 06:22:00 AM EDT [facility] Name Value Range Interpretation Code Description Data Raquel rce(s) Supporting Document(s) Urea nitrogen [Mass/volume] in Serum or Plasma 14 mg/dL 9-23 N [facility] Sodium [Moles/volume] in Serum or Plasma 133 mmol/L 132-146 [facility] Potassium [Moles/volume] in Serum or Plasma 3.3 mmol/L 3.5-5.5 Below low normal [facility] Chloride [Moles/volume] in Serum or Plasma 102 mmol/L 99-109 [facility] Carbon dioxide, total [Moles/volume] in Serum or Plasma 24 mmol/L 20 -31 [facility] Anion gap in Serum or Plasma 10 mmol/L 8-16 [facility] Glucose [Mass/volume] in Serum or Plasma 262 mg/dL 74-106 Above high normal [facility] Creatinine 0.7 mg/dL 0.5-1.1 [facility] Glomerular filtration rate/1.73 sq M.pre dicted [Volume Rate/Area] in Serum or Plasma Greater Than 60 ABOVE 60 [facility] Alanine aminotransferase [Enzymatic acti vity/volume] in Serum or Plasma by With P-5'-P 20 U/L 10-49 [facility] ital Aspartate aminotransferase [Enzymatic ac tivity/volume] in Serum or Plasma by With P-5'-P 11 U/L 0-33 [facility] pital Alkaline phosphatase [Enzymatic activity/volume] in Serum or Plasma 89 U/L 45-129 N [facility] Calcium [Mass/volume] in Serum or Plasma 8.7 mg/dL 8.5-10.1 N [facility] Bilirubin.total [Mass/volume] in Serum or Plasma 0.4 mg/dL 0.3-1.2 N [facility] Albumin [Mass/volume] in Serum or Plasma by Bromocresol purple (BCP) dye binding method 3.1 g/dL 3.2-4.8 Below low normal [facility] Protein [Mass/volume] in Serum or Plasma 6.6 g/dL 5.7-8.2 N [facility] ID Date Data Source [id number] 11/11/2019 02:48:00 PM EDT [facility] [address] [place] [address] [phone] NAME SEX PT STATUS ACCOUNT NUMBER DONNY FAITH ADM IN [id number] ORDERING PHYSICIAN LOCATION MEDICAL RECORD NO. Enriquez AMMON Deng [id number] ATTENDING PHYSICIAN DATE OF DATE OF EXAM/TIME [...] rce(s) Supporting Document(s) ID Date Data Source [id number] 11/11/2019 01:56:00 PM EDT [facility] Therapy Department DONNY FAITH : 1955 [id number] Attending: Jaylon Baird MD OT Inpatient Evaluation [...] a 64 y/o male who presented from [facility] with bilateral rib fx secondary to [...] Level of Function:: Patient lives alone in [facility] apartments. Pt uses elevator to get upstairs [...] rce(s) Supporting Document(s) ID Date Data Source [id number] 11/11/2019 11:48:00 AM EDT [facility] [address] [place] [address] PHONE: [phone] FAX: [phone] Name .................. : DIMA Garcia Acct Number.................. : [id number] ROOM. ................. : TR-08 MR Number ................... : [id number] Stay type ............. : E/R Discharge Date......... ... : 11/10/19 Admit Date ......... : 11/10/19 Admit Phys .................... : MITCHELL CHUN Date of ....... : 1955 Family Phys ................... : TRU WATERMAN Phone .................. : [phone] Age ................................ : 64 Film# .................. .:[id number] Sex ................................. : M Unsigned transcriptions are preliminary reports and do not represent a medical or legal document CT ABD & PELVIS W/ IV ONLY [id number] COMPLETE:11/10/19 15:11 [facility] [id number] Reason(s): Tr auma/Injury CT SCAN OF THE [...] and Signed By Page 1 of 2 [place] [address] PHONE: [phone] FAX: [phone] Name .................. : DIMA Garcia Acct Number.................. : [id number] ROOM. ................. : TR-08 Number ................... : [id number] Stay type ............. : E/R Discharge Date......... ... : 11/10/19 Admit Date ......... : 11/10/19 Admit Phys .................... : MITCHELL CHUN Date of ....... : 1955 Family Phys ................... : TRU WATERMAN Phone .................. : [phone] Age ................................ : 64 Film# .................. .:[id number] Sex ................................. : M Unsigned transcriptions are preliminary reports and do not represent a medical or legal document CT ABD & PELVIS W/ IV ONLY [id number] COMPLETE:11/10/19 15:11 [facility] [id number] Reason(s): Trauma/Injury DERREK PHAN MD , 11/11/19 11:48, M Transcribe Initials: DZ , Transcribe Date: 11/11/19 00:41, Dictation Date: Copy for: YOHAN HOLT via fax Copy for: MITCHELL Kaiser via fax Copy for: EMERGENCY DEPT via modem Copy for: 710 MED REC DISCHARGED Page 2 of 2 Name Value Range Interpretation Code Description Data Raquel rce(s) Supporting Document(s) ID Date Data Source [id number] 11/11/2019 11:47:00 [place] [address] PHONE: [phone] FAX: [phone] Name .................. : DIMA Garcia Acct Number.................. : [id number] ROOM. ................. : TR-08 Number ................... : [id number] Stay type ............. : E/R Discharge Date......... ... : 11/10/19 Admit Date ......... : 07/28/20 Admit Phys .................... : MITCHELL CHUN Date of ....... : 1955 Family Phys ................... : TRU WATERMAN Phone .................. : [phone] Age ................................ : 64 Film# .................. .:[id number] Sex ................................. : M Unsigned transcriptions are preliminary reports and do not represent a medical or legal document CT HEAD W/O CONTRAST [id number] COMPLETE:11/10/19 15:11 [facility] [id number] Reason (s): Syncope CT SCAN OF THE [...] By DERREK PHAN MD , 11/11/19 11:47, [facility] Page 1 of [address] [place] [address] PHONE: [phone] FAX: [phone] Name .................. : DIMA Garcia Acct Number.................. : [id number] ROOM. ................. : TR-08 MR Number ................... : [id number] Stay type ............. : E/R Discharge Date......... ... : 11/10/19 Admit Date ......... : 11/10/19 Admit Phys .................... : MITCHELL CHUN Date of ....... : 1955 Family Phys ................... : TRU WATERMAN Phone .................. : [phone] Age ................................ : 64 Film# .................. .:[id number] Sex ................................. : M Unsigned transcriptions are preliminary reports and do not represent a medical or legal document CT HEAD W/O CONTRAST [id number] COMPLETE:11/10/19 15:11 [facility] [id number] Reason(s): Syncope Transcribe Initials: CHELLY , Transcribe Date: 11/11/19 05:24, Dictation Date: Copy for: YOHAN HOLT via fax Copy for: MITCHELL Kaiser via fax Copy for: EMERGENCY DEPT via modem Copy for: 710 MED REC DISCHARGED Page 2 of 2 Name Value Range Interpretation Code Description Data Raquel rce(s) Supporting Document(s) ID Date Data Source [id number] 11/11/2019 11:44:00 AM EDT [facility] [address] [place] [address] PHONE: [phone] FAX: [phone] Name .................. : DIMA Garcia Acct Number.................. : [id number] ROOM. ................. : [address] Number ................... : [id number] Stay type ............. : E/R Discharge Date......... ... : 11/10/19 Admit Date ......... : 11/10/19 Admit Phys .................... : MITCHELL CHUN Date of ....... : 1955 Family Phys ................... : TRU WATERMAN Phone .................. : [phone] Age ................................ : 64 Film# .................. .:[id number] Sex ................................. : M Unsigned transcriptions are preliminary reports and do not represent a medical or legal document CT THORAX W/CONTRAST [id number] COMPLETE:11/10/19 15:11 [facility] [id number] Reason(s): L back/flank pain s/p syncope with [...] By DERREK PHAN MD , 11/11/19 11:44, [facility] Transcribe Initia ls: CHELLY , Transcribe Date: 11/11/19 00:39, Dictation Date: Copy for: YOHAN HOLT via fax Copy for: MITCHELL Kaiser via fax Copy for: EMERGENCY DEPT via modem Copy for: 710 MED REC DISCHARGED Page 1 of 1 Name Value Range Interpretation Code Description Data Raquel rce(s) Supporting Document(s) ID Date Data Source [id number] 11/11/2019 11:44:00 [place] [address] PHONE: [phone] FAX: [phone] Name .................. : DIMA DONNY A Acct Number.................. : [id number] ROOM. ................. : TR-08 Number ................... : [id number] Stay type ............. : E/R Discharge Date......... ... : 11/10/19 Admit Date ......... : 11/10/19 Admit Phys .................... : MITCHELL MCCOLLUM Date of ....... : 1955 Family Phys ................... : TRU WATERMAN Phone .................. : [phone] Age ................................ : 64 Film# .................. .:[id number] Sex ................................. : M Unsigned transcriptions are preliminary reports and do not represent a medical or legal document CT CERV SPINE W/O DAMIEN [id number] COMPLETE:11/10/19 15:11 [place] [id number] Reason(s): syncope CT SCAN OF THE CERVICAL [...] By DERREK PHAN MD , 11/11/19 11:44, [facility] Transcribe Initials: CHELLY , Transcribe Date: 11/11/19 00:31, Dictation Date: Copy for: YOHAN HOLT via fax Copy for: MITCHELL Kaiser via fax Copy for: EMERGENCY DEPT via [employer] Copy for: 710 MED REC DISCHARGED Page 1 of 1 Name Value Range Interpretation Code Description Data Raquel rce(s) Supporting Document(s) ID Date Data Source [id number] 11/11/2019 12:29:00 PM EDT [facility] Name Value Range Interpretation Code Description Data Raquel rce(s) Supporting Document(s) Digoxin [Mass/volume] in Serum or Plasma 0.5 ng/mL 0.8-2.0 Below low normal [facility] ID Date Data Source [id number] 11/11/2019 10:52:00 AM EDT [facility] [address] [place] [address] [phone] NAME SEX PT STATUS ACCOUNT NUMBER DONNY FAITH ADM IN [id number] ORDERING PHYSICIAN LOCATION MEDICAL RECORD NO. Enriquez AMMON Deng [id number] ATTENDING PHYSICIAN DATE OF DATE OF EXAM/TIME [...] rce(s) Supporting Document(s) ID Date Data Source [id number] 11/11/2019 10:36:00 AM EDT [address] [place] [address] [phone] NAME SEX PT STATUS ACCOUNT NUMBER DONNY FAITH ADM IN [id number] ORDERING PHYSICIAN LOCATION MEDICAL RECORD NO. Mina Deng [id number] ATTENDING PHYSICIAN DATE OF DATE OF EXAM/TIME [...] rce(s) Supporting Document(s) ID Date Data Source [id number] 11/11/2019 10:12:00 AM EDT [id number] [place] [address] [phone] NAME SEX PT STATUS ACCOUNT NUMBER DONNY FAITH ADM IN [id number] ORDERING PHYSICIAN LOCATION MEDICAL RECORD NO. Mina Deng EW [id number] ATTENDING PHYSICIAN DATE OF DATE OF EXAM/TIME [...] rce(s) Supporting Document(s) ID Date Data Source [id number] 11/11/2019 09:49:00 AM EDT [facility] Department DONNY FAITH : 1955 Date: 11/11/19 [id number] Pharmacy Safety Note - Review Chart Review: [...] (Duoneb) 3 ml NEB RTBID (1100, 1500) [facility] Arformoterol Tartrate (Brovana 15 Mcg/Amp) 15 mcg NEB RTBID (0700,1900) [facility] Last Admin: 11/11/19 07:07 Dose: 15 mcg Documented by: Aspirin (Ecotrin) 81 mg PO DAILY [facility] Atorvastatin Calcium (Atorvastatin Calcium) 20 mg PO HS [facility] Budesonide (Pulmicort 0.5mg) 0.5 mg NEB RTBID (0700,1900) [facility] Last Admin: 11/11/19 07:07 Dose: 0.5 mg Documented by: Cetirizine HCl (Zyrtec) 5 mg PO DAILY [facility] Digoxin (Lanoxin) 0.125 mg PO 0800 [facility] Diltiazem HCl (Cardizem) 240 mg PO DAILY [facility] Fluoxetine HCl (Prozac) 10 mg PO DAILY [facility] Gabapentin (Neurontin) 300 mg PO Q8HR [facility] Glimepiride (Amaryl) 4 mg PO BID@0800,2000 [facility] Last Admin: 11/11/19 07:18 Dose: 4 mg Documented by: Insulin Glargine (Lantus) 20 units SQ HS [facility] Insulin Human Lispro (Humalog) 0 units SQ AC HS/SLIDING SCALE [facility] Last Admin: 11/11/19 07:20 Dose: 6 units Documented by: Levetiracetam (Keppra) 500 mg PO BID [facility] Lisinopril (Zestril) 2.5 mg PO DAILY [facility] Morphine Sulfate (Morphine Sulfate) 2 mg IVP Q4H PRN PRN Reason: PAIN, SEVERE (SCORE 7-10/10) Stop: 11/17/19 18:41 Last Admin: 11/11/19 05:15 Dose: 2 mg Documented by: Oxycodone/Acetaminophen (Percocet 5/325) 1 tab PO Q6H PRN PRN Reason: PAIN, MODERATE (SCORE 4-6/10) Stop: 11/17/19 18:41 Last Admin: 11/11/19 01:54 Dose: 1 tab Documented by: Pantoprazole Sodium (Protonix) 40 mg PO DAILY@0700 [facility] Last Admin: 11/11/19 07:19 Dose: 40 mg Documented by: Topiramate (Topamax) 50 mg PO BID [facility] Trazodone HCl (Desyrel) 100 mg PO HS [facility] Last Admin: 11/10/19 22:43 Dose: 100 mg [...] rce(s) Supporting Document(s) ID Date Data Source [id number] 11/11/2019 09:28:00 AM EDT [facility] Therapy Department DONNY FAITH: 1955 Date: 11/12/19 [id number] Attending: Jaylon Baird MD Physical Therapy Inpatient [...] home due to this. Spoke to social contact worker in regards to patient's living conditions. Patient [...] rce(s) Supporting Document(s) ID Date Data Source [id number] 11/11/2019 07:22:00 AM EDT [facility] Name: Donny Faith : 1955 Age: 64 MR#: [id number] Admit Date: 11/10/19 Provider: Jaylon Baird MD [...] Admit to Inpatient, Acute [STATUS] Routine Location: [facility] Primary diagnosis: B Rib Fracture, Syncope Admitting [...] 11/10/19 22:05: Creatine Kinase 93 11/10/19 22:05: Ewe-M-Lffuawtsedl Pept 23.00 11/10/19 22:05: Troponin I Less than 0.015 11/11/19 06:29: WBC 9.5, RBC 4.74, Hgb 14.8, Hct 42.3, MCV 89.2, MCH 31.2 H, MCHC 35.0, RDW 14, Plt Count 237, MPV 9.2, Immature Gran % (Auto) 0.2, Neut % (Auto) 62.7, Lymph % (Auto) 25.8, [place] % (Auto) 7.7, Eos % (Auto) 2.9, [...] Type 2 diabetes mellitus 11. History of [place] Plan: Await repeat chest x-ray and if [...] rce(s) Supporting Document(s) ID Date Data Source [id number] 11/11/2019 06:39:00 AM EDT [facility] Name Value Range Interpretation Code Description Data Raquel rce(s) Supporting Document(s) Leukocytes [#/volume] in Blood by Automated count 9.5 10*3/uL 4.45-10 .71 N [facility] Erythrocytes [#/volume] in Blood by Automated count 4.74 10*6/uL 4.3- 6.1 N [facility] Hemoglobin [Moles/volume] in Blood 14.8 g/dL 13-18 N [facility] Hematocrit [Volume Fraction] of Blood by Automated count 42.3 % 4 2-52 N [facility] Erythrocyte mean corpuscular volume [Ent itic volume] in Cord blood by Automated count 89.2 fL 80-96 N [facility] ital Erythrocyte mean corpuscular hemoglobin [Entitic mass] by Automated count 31.2 pg 27-31 Above high normal [facility] spital Erythrocyte mean corpuscular hemoglobin concentration [Mass/volume] in Cord blood 35.0 g/dL 33-37 N [facility] ital Erythrocyte distribution width [Entitic volume] by Automated count 14 % 11-15 N [facility] Platelets [#/volume] in Blood by Automated count 237 10*3/uL 130-472 N [facility] Platelet mean volume [Entitic volume] in Blood 9.2 fL 9.1-13.1 N [facility] Neutrophils/100 leukocytes in Blood by Automated count 62.7 % 41- 77 N [facility] Neutrophils [#/volume] in Blood by Automated count 5.9 U 1.7-7.6 N [facility] Lymphocytes/100 leukocytes in Blood by Automated count 25.8 % 14- 46 N [facility] Lymphocytes [#/volume] in Blood by Automated count 2.4 U 0.6-4.6 N [facility] Monocytes/100 leukocytes in Blood by Automated count 7.7 % 4-12 N [facility] Monocytes [#/volume] in Blood by Automated count 0.7 U 0.2-1.2 N [facility] Eosinophils/100 leukocytes in Blood by Automated count 2.9 % 0-7 N [facility] Eosinophils [#/volume] in Blood by Automated count 0.3 U 0.0-0.5 N [facility] Basophils/100 leukocytes in Blood by Automated count 0.7 % 0.4-1 .3 N [facility] Basophils [#/volume] in Blood by Automated count 0.1 U 0.0-0.2 N [facility] NUCLEATED RED BLOOD CELL 0 % [facility] NUCLEATED RED BLOOD CELL# 0 U [facility] Immature granulocytes [Presence] in Blood by Automated count 0-2 N [facility] Immature granulocytes [#/volume] in Blood by Automated count 0.0 U 0-0.1 N [facility] Manual Differential panel - Blood NO [facility] ID Date Data Source [id number] 11/11/2019 06:58:00 AM EDT [facility] Name Value Range Interpretation Code Description Data Raquel rce(s) Supporting Document(s) Urea nitrogen [Mass/volume] in Serum or Plasma 17 mg/dL 9-23 N [facility] Sodium [Moles/volume] in Serum or Plasma 136 mmol/L 132-146 N [facility] Potassium [Moles/volume] in Serum or Plasma 3.8 mmol/L 3.5-5.5 N [facility] Chloride [Moles/volume] in Serum or Plasma 104 mmol/L 99-109 N [facility] Carbon dioxide, total [Moles/volume] in Serum or Plasma 27 mmol/L 20 -31 N [facility] Anion gap in Serum or Plasma 9 mmol/L 8-16 N [facility] Glucose [Mass/volume] in Serum or Plasma 259 mg/dL 74-106 Above high normal [facility] Creatinine 0.7 mg/dL 0.5-1.1 N [facility] Glomerular filtration rate/1.73 sq M.pre dicted [Volume Rate/Area] in Serum or Plasma Greater Than 60 ABOVE 60 [facility] Alanine aminotransferase [Enzymatic acti vity/volume] in Serum or Plasma by With P-5'-P 21 U/L 10-49 N [facility] ital Aspartate aminotransferase [Enzymatic ac tivity/volume] in Serum or Plasma by With P-5'-P 12 U/L 0-33 N [facility] pital Alkaline phosphatase [Enzymatic activity/volume] in Serum or Plasma 99 U/L 45-129 N [facility] Calcium [Mass/volume] in Serum or Plasma 9.4 mg/dL 8.5-10.1 N [facility] Bilirubin.total [Mass/volume] in Serum or Plasma 0.4 mg/dL 0.3-1.2 N [facility] Albumin [Mass/volume] in Serum or Plasma by Bromocresol purple (BCP) dye binding method 3.7 g/dL 3.2-4.8 N [facility] ital Protein [Mass/volume] in Serum or Plasma 7.8 g/dL 5.7-8.2 N [facility] ID Date Data Source [id number] 11/10/2019 11:10:00 PM EDT [facility] [address] [id number] [phone] NAME SEX PT STATUS ACCOUNT NUMBER Donny Faith ADM IN [id number] ORDERING PHYSICIAN LOCATION MEDICAL RECORD NO. Mina Deng [id number] ATTENDING PHYSICIAN DATE OF DATE OF EXAM/TIME [...] Trans Dt/Tm: Trans by: DT Prt Dt/Tm: 2132-3087: Total DLP = 0.00 mGy-cm Fluoroscopy Time (in secs): Name Value Range Interpretation Code Description Data Raquel rce(s) Supporting Document(s) ID Date Data Source [id number] 11/10/2019 10:48:00 AM EDT [facility] 1 OrderSheet [facility] Emergency Department [address] [place] [address] Phone #: ext- [phone] 11/10/2019 10:47 Patient: DONNY FAITH Sex: M : 1955 Age: 64yWEIGHT:73.5 kg (M) HEIGHT:68 inches (S) BMI:24.6ALLERGIES: Acetaminophen, Benadryl, [place], Motrin, Paxil, Penicillins, ThorazineCHIEF COMPLAINT: fall, walking, passed out, backDIAGNOSIS: Syncope, Fracture of ribLAB ORDERSOrder Description Priority Entered Acknowledged InitialedC w Diff STAT 11:19 11/10/2019 11:23 Rangel Alejandra 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, Rk ER P.A.-C; Phag8IYL STAT 11:11/10/2019 11:23 [facility] 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, Rk ER P.A.-C; Mubg6Vwgpmg STAT 11:11/10/2019 11:23 [facility] 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, Rk ER P.A.-C; Mjgd9HT/PTT STAT 11:11/10/2019 11:23 [facility] 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, Rk ER P.A.-C; Mtdb5Lcsktaln-V STAT 11:11/10/2019 11:23 [facility] 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, Rk ER P.A.-C; Qizy9Szoilquuy STAT 11:11/10/2019 11:23 [facility] 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, Rk ER P.A.-C; Xalr2EVE STAT 11:11/10/2019 11:23 [facility] 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, Rk ER P.A.-C; Paoy5Cwprcuyspg (Clean STAT 11:11/10/2019 15:26 PeterCatch) Santos Dixon RN P.A.-C;DIAGNOSTIC STUDY ORDERSOrder Description Priority Entered Acknowledged InitialedCT Chest W/ Cont STAT 12:52 11/10/2019 13:23 Lloyd(Oxygen?(No)) Santos Dixon RN(IV?(Yes)) P.A.-C; Reason for Study: L back/flank pain s/p syncope with echymosis 2 OrderSheet [facility] Emergency Department [address] [place] [address] Phone #: ext- [phone] 11/10/2019 10:47 Patient: DONNY FAITH Sex: M [...] 11/10/2019 11:28 Ozzie, then 75 mL/hr Santos Dxion RN P.A.-C;Morphine IVP 2 mg 11:47 11/10/2019 11:54 Josh(HIGH ALERT Santos Colindres R.N.MEDICATION) P.A.- C;Zofran IVP 4 mg 11:47 11/10/2019 11:53 Santos Moreno R.N. P.A.-C;Morphine IVP 2 mg 16:30 11/10/2019 16:36 Lloyd(HIGH ALERT Santos Dixon RNMEDICATION) P.A.-C;GENERAL ORDERSOrder Description Priority Entered Acknowledged InitialedBlood Pressure 11:19 11/10/2019 11:19 [facility] Santos Alejandra 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, Rk IZAGUIRRE P.A.-C; Lutd4Zsgjeht Monitor 11:19 11/10/2019 11:19 Agency(continuous) Santos Alejandra 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, Rk ER P.A.-C; Wjxf8BPF 11:19 11/10/2019 11:19 Agency Santos Alejandra 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, Rk ER P.A.-C; Smus0VGC 11:19 11/10/2019 11:19 Rangel Alejandra 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, Rk IZAGUIRRE P.A.-C; Tech1 3 OrderSheet [facility] Emergency Department [address] [place] [address] Phone #: ext- [phone] 11/10/2019 10:47 Patient: DONNY FAITH Sex: M : 1955 Age: 64yObtain Old EKG 11:19 11/10/2019 11:23 Agency Santos Alejandra 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, Rk IZAGUIRRE PEvi-C; Igxd7Ayuldh Old Records 11:19 11/10/2019 11:23 Agency Santos Alejandra 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, Rk Hinton.AFreddyC; Fswe9Qqbfqx titrate to 11:19 11/10/2019 11:19 Koaxgxm45% Santos Alejandra 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, Rk AvalosAFreddyC; Fetf2Auerv oximeter 11:19 11/10/2019 11:19 Agency(Continuous) Santos Alejandra 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, Rk FernandezC; Swvb1Gwlree Lock 11:19 11/10/2019 11:23 Lloyd Dixon RN P.A.-C;Vitals 11:19 11/10/2019 11:19 Agency Santos Alejandra 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, Rk FernandezC; Ypjb3Ixptoq (2 L/min) 11:19 11/10/2019 11:19 Agency(NC) (Titrate to O2 Santos Alejandra 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, Rk ERSat >92%) P.A.-C; Tech1[Electronically signed by Lloyd Dixon RN (17:03 11/10/2019)][Electronically signed by Santos Alejandra P.A.-C (22:54 )][Electronically locked by Lloyd Dixon RN (17:03 11/10/2019)] Name Value Range Interpretation Code Description Data Raquel rce(s) Supporting Document(s) ID Date Data Source [id number] 11/10/2019 10:48:00 AM EDT [facility] 1 Medication Reconciliation Report [facility] Emergency Department [address] [place] [address] Phone #: ext- [phone] 11/10/2019 10:47 Patient: DONNY FAITH Sex: M : 1955 Age: 64yWeight: 73.5 kgHeight/Length: 68 in.BMI: 24.6ALLERGIES: Acetaminophen, Benadryl, [place], Motrin, Paxil, Penicillins, ThorazineThe patient's Home Medications are listed below:THE FOLLOWING MEDICATIONS NEED TO BE RECONCILED: Advair Diskus Inhalation (500-50 mcg/dose) 1 inhalation, 2x a day Advocate Insulin Pen [place] Aspir-81 Oral (81 mg) 1 tablet, daily Basaglar 20 unita, at bedtime [facility] Claritin Oral (5 mg) 1 tablet, daily, [...] 2x a day 2 Medication Reconciliation Report [facility] Emergency Department [address] [place] [address] Phone #: ext- [phone] 11/10/2019 10:47 Patient: DONNY FAITH Sex: M [...] rce(s) Supporting Document(s) ID Date Data Source [id number] 11/10/2019 10:48:00 AM EDT [facility] 1 Medication Administration Record [facility] Emergency Department [address] [place] [address] Phone #: ext- [phone] 11/10/2019 10:47 Patient: DONNY FAITH Sex: M : 1955 Age: 64yWeight: 73.5 kgHeight/Length: 68 inBMI: 24.6ALLERGIES: Acetaminophen, Benadryl, [place], Motrin, Paxil, Penicillins, Thorazine Date/Time Medication Administered [...] rce(s) Supporting Document(s) ID Date Data Source [id number] 11/10/2019 10:48:00 AM EDT [facility] 1 General Instructions [facility] Emergency Department [address] [place] [address] Phone #: ext- [phone] 11/10/2019 10:47 Patient: [...] awake. Breathe out through 2 General Instructions [facility] Emergency Department [address] [place] [address] Phone #: ext- [phone] 11/10/2019 10:47 Patient: [...] of pain and swelling. You may use yvup-ydh-fhtcpmv pain medicine to control pain, unless another [...] new findings that may affect your care.Call [phone] if you have: Dizziness, weakness or fainting Shortness of breath with or without chest discomfort New or worsening abdominal pain Discomfort in other areas of your upper body such as your shoulders, jaw, neck, or armsWhen to seek medical adviceCall your healthcare provider right away if any of these occur: 3 General Instructions [facility] Emergency Department [address] [place] [address] Phone #: ext- [phone] 11/10/2019 10:47 Patient: DONNY FAITH Sex: M : 1955 Age: 64y Increasing chest pain with breathing Fever of 100.4F (38C) or above, or as directed by your healthcare provider Congested cough, nausea, or vomiting [id number] [employer]. [address] [place] [address]. All rights reserved. This information is not [...] find out if you 4 General Instructions [facility] Emergency Department [address] [place] [address] Phone #: ext- [phone] 11/10/2019 10:47 Patient: DONNY FAITH Sex: M [...] with your healthcare provider, or as advised.Call [phone] if any of these occur: Another fainting [...] seeing Extreme drowsiness, confusion, dizziness, or fainting [phone] [employer]. [address] [place] [address]. All rights reserved. 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 Always follow your healthcare professional's instructions. You have been given the following additional information: Rib Fracture Syncope, Unk Cause(Electronically signed by Santos Alejandra P.A.-C 11/10/2019 22:54) Name Value Range Interpretation Code Description Data Raquel rce(s) Supporting Document(s) ID Date Data Source [id number] 11/10/2019 10:48:00 AM EDT [facility] 1 Clinical Report - Nurses [facility] Emergency Department [address] [place] [address] Phone #: ext [phone] 11/10/2019 10:47 Patient: DONNY FAITH Sex: M : 1955 Age: 64yTRIAGEHistorian: patient.Triage time: 10:49 11/10/2019. Acuity: LEVEL 4.Chief Complaint: FALL. Passed out while walking. Landed on back.(2 days ago "blacked out" unwitnessed, patient states lasted 3 minutes landed on left side on F4rarfrzohhwri).10:49 11/10/19. Alert. No acute distress.( Today "reached for cup, felt a sharp pain left flank").Treatment CUSTOM GARMENT DESIGNER:None.EMS Treatment CUSTOM GARMENT DESIGNER:Received prehospital notification of patient arrival. EMS report [...] inhalation, 2x a day. Advocate Insulin Pen [place]. Aspir-81 Oral (Tablet Delayed Release 81 mg) 1 tablet, daily. Basaglar 20 unita, at bedtime. [facility] [place]. Claritin Oral (Tablet Chewable 5 mg) 1 [...] Jasso RN 2 Clinical Report - Nurses [facility] Emergency Department [address] [place] [address] Ph one #: ext- [phone] 11/10/2019 10:47 [...] on day 3. --11:02 11/10/19 Tatianna Jasso RN.AllergiesAcetaminophen.Benadryl.[place].Motrin.Paxil.Penicillins.Thorazine. --10:54 11/10/19 Tatianna Jasso RN.Loovned92:49 11/10/19.PAST MEDICAL HX: Tetanus status: up-to-date. Immunizations: [...] no barriers. 3 Clinical Report - Nurses [facility] Emergency Department [address] [place] [address] Phone #: ext- [phone] 11/10/2019 10:47 Patient: [...] risk identified. --10:59 11/10/19 Tatianna Jasso RN.PHYSICAL JMNEBUMSQX86:55 11/10/19. To room via stretcher.GENERAL / NEURO [...] and post-medication 4 Clinical Report - Nurses [facility] Emergency Department [address] [place] [address] Phone #: ext- [phone] 11/10/2019 10:47 Patient: DONNY FAITH Sex: M : 1955 Age: 64y administration. Information reviewed with patient including reason for taking this medication. Verbalizes understanding. --11:28 11/10/19 Lloyd Dixon RN EKG time: (late entry - 11:26 11/10/2019). EKG was performed by a tech and shown to the PA. --11:31 11/10/19 Marty Richardson ER Administrative Professional 11:52 11/10/2019 Zofran (Ondansetron HCl) IVP 4 [...] RN ( pt to be transported to [facility]). --16:06 11/10/19 Lloyd Dixon RN 16:36 11/10/2019 [...] and transfer facility via paper and fax ([facility]). Transported via ambulance by EMS with monitor [...] Dixon RN 5 Clinical Report - Nurses [facility] Emergency Department [address] [place] [address] Phone #: ext- [phone] 11/10/2019 10:47 Patient: [...] rce(s) Supporting Document(s) ID Date Data Source [id number] 11/10/2019 10:48:00 AM EDT [facility] 1 Clinical Report - Physicians/Mid Levels [facility] Emergency Department [address] [place] [address] Phone #: ext- [phone] 11/10/2019 10:47 Patient: [...] Pain. Parkinson's Disease. Seizure. Sprain. Sleep Apnea. [place]. 2 Clinical Report - Physicians/Mid Levels [facility] Emergency Department [address] [place] [address] Phone #: ext- [phone] 11/10/2019 10:47 -------- [...] 1 inhalation, 2x a day.Advocate Insulin Pen [place].Aspir-81 Oral (Tablet Delayed Release 81 mg) 1 tablet, daily.Basaglar 20 unita, at bedtime.[facility].Claritin Oral (Tablet Chewable 5 mg) 1 tablet, [...] (Tablet 4 mg) 1-1/2 tablets, 2x a day.Allergies:Acetaminophen.Benadryl.[place].Motrin.Paxil. 3 Clinical Report - Physicians/Mid Levels [facility] Emergency Department [address] [place] [address] Phone #: ext- [phone] 11/10/2019 10:47 Patient: [...] ankle complaints. No left foot complaints. Neuro: Dulce Coma Scale: 15- eyes open- spontaneous (4); best verbal response- oriented (5); best motor response- obeys commands (6). Awake. Alert. Oriented X 3. Mood/affect normal. Speech normal.LABS, X-RAYS, AND EKG EKG: Sinus rhythm w/ 1st degree AV block; o/w normal ECG. 4 Clinical Report - Physicians/Mid Levels [facility] Emergency Department [address] [place] [address] Phone #: ext- [phone] 11/10/2019 10:47 Patient: DONNY FAITH Sex: M [...] 5.0) 5 Clinical Report - Physicians/Mid Levels [facility] Emergency Department [address] [place] [address] Phone #: ext- [phone] 11/10/2019 10:47 Patient: [...] Male GFR Interprentation 20-49 yrs >60 mL/min Shwqxb65-36 yrs >56 mL/min Normal 60-69 yrs >49 mL/min Normal 70-79yrs>42 mL/min Normal 80 and above >35 mL/min Normal Female GFRInterpretation 20-39 yrs >60 mL/min Normal 40-49 yrs >58 mL/minNormal 50-59 yrs >51 mL/min Normal 60-69 yrs >45 mL/min Czaxma92-54 yrs >39 mL/min Normal 80 and above >32 mL/min NormalLipase: (ROSARIO: 11/10/2019 11:53) ( [facility] 11/10/2019 12:24) Final results Test Result Flag Units * *(Reference) LIPASE 21 U/L (13 - 60)PT/PTT: (ROSARIO: 11/10/2019 11:53) ( [facility] 11/10/2019 12:22) Final results Test Result Flag Units (Reference) PROTIME 15.7 H SECONDS (11.0 - 15.5) INR 1.23 (0.93 - 1.23) PTT 32.9 SECONDS (24.8 - 36.7) \\BLDo\\INR INTERPRETATION\\BLDx\\ Therapeutic range for Coumadin andrelated oral anticoagulants. -International Normalized Ratio (INR): 2.0 - 3.0 for VenousThrombosis, Pulmonary Embolus, Tissue heart valves, Acute [place] Atrial Fibrillation, Valvular heart diseaseand recurrent Systemic Embolism. -International Normalized Ratio (INR): 2.5 - 3.5 forMechanical Prosthetic valve.Troponin-T: (ROSARIO: 11/10/2019 11:53) ( [facility] 11/10/2019 13:10) Final results Test Result Flag Units (Reference) TROPONIN T <0.01 NG/ML (0.00 - 0.10) TROPONIN T0.1 ng/ml Recommended as the clinical threshold value forTroponin T.Magnesium: (ROSARIO: 11/10/2019 11:53) ( [facility] 11/10/2019 12:24) Final results Test Result Flag Units (Reference) MAGNESIUM 1.8 MG/DL (1.7 - 2.2)BNP: (ROSARIO: 11/10/2019 11:53) ( [facility] 11/10/2019 12:24) Final results Test Result Flag Units (Reference) BNP 23 PG/ML (0 - 125) 6 Clinical Report - Physicians/Mid Levels [facility] Emergency Department [address] [place] [address] Phone #: ext- [phone] 11/10/2019 10:47 Patient: DONNY FAITH Sex: M : 1955 Age: 64y Urinalysis: (ROSARIO: 11/10/2019 12:40) ( [facility] 11/10/2019 14:08) Final results Test Result Flag [...] change of new 1st degree AV block. DE today: 214. DE on 60Qew52: 200 Pending results. Reviewed results. Pt has hx of chronci sycopial episodes. b/l lower rib fxs. Pt lives alone. Pt is a elevated fall risk. [facility] Contacted [facility] and discussed with Dr. Sanchez and he [...] alternatives to transfer explained to patient. Transferred. [facility]. UTI (catheter associated) was not present prior to transfer. Pressure ulcer was not present prior to transfer. 7 Clinical Report - Physicians/Mid Levels [facility] Emergency Department [address] [place] [address] Phone #: ext- [phone] 11/10/2019 10:47 Patient: DONNY FAITH Sex: M : 1955 Age: 64y Vascular infection (catheter associated) was not present prior to transfer.CLINICAL IMPRESSION Common syncope. Multiple right and left rib fractures.(Electronically signed by Santos Alejandra P.A.-C 11/10/2019 22:54) Name Value Range Interpretation Code Description Data Raquel rce(s) Supporting Document(s) ID Date Data Source [id number] 11/10/2019 10:57:00 PM EDT [facility] Name Value Range Interpretation Code Description Data Raquel rce(s) Supporting Document(s) Creatine kinase [Enzymatic activity/volume] in Serum or Plasma 93 U /L 33-211 N [facility] ID Date Data Source [id number] 11/10/2019 10:50:00 PM [facility] Name Value Range Interpretation Code Description Data Raquel rce(s) Supporting Document(s) Natriuretic peptide.B prohormone N-Terminal [Mass/volu me] in Serum or Plasma 23.00 pg/mL 0.00-175 N [facility] l ID Date Data Source [id number] 11/10/2019 10:44:00 PM [facility] Name Value Range Interpretation Code Description Data Raquel rce(s) Supporting Document(s) Troponin I.cardiac [Mass/volume] in Serum or Plasma Less Than 0.015 0.00-0.09 [facility] Less than 0.09 NG/ML Negative0.10 - 0.77 NG/ML High Risk0.78 NG/ML or Greater PositiveThe WHO defined the cutoff (definition for diagnosis of MN)for this method as 0.78 ng/ml. ID Date Data Source [id number] 11/10/2019 10:36:00 PM [facility] Name Value Range Interpretation Code Description Data Raquel rce(s) Supporting Document(s) Urea nitrogen [Mass/volume] in Serum or Plasma 16 mg/dL 9-23 N [facility] Sodium [Moles/volume] in Serum or Plasma 138 mmol/L 132-146 [facility] Potassium [Moles/volume] in Serum or Plasma 3.9 mmol/L 3.5-5.5 N [facility] Chloride [Moles/volume] in Serum or Plasma 106 mmol/L 99-109 N [facility] Carbon dioxide, total [Moles/volume] in Serum or Plasma 24 mmol/L 20 -31 N [facility] Anion gap in Serum or Plasma 12 mmol/L 8-16 N [facility] Glucose [Mass/volume] in Serum or Plasma 237 mg/dL 74-106 Above high normal [facility] Creatinine 0.9 mg/dL 0.5-1.1 [facility] Glomerular filtration rate/1.73 sq M.pre dicted [Volume Rate/Area] in Serum or Plasma Greater Than 60 ABOVE 60 [facility] Calcium [Mass/volume] in Serum or Plasma 9.1 mg/dL 8.5-10.1 [facility] ID Date Data Source [id number] 11/10/2019 09:51:00 PM EDT [facility] Name: DONNY FAITH : 1955 Age: 64 MR#: [id number] Admit Date: 11/10/19 Provider: Mina Deng Room [...] weakness at baseline, seizures, is transferred to [facility] from [facility] after he had fall injury. [...] frequency or urgency. The ER provider in [facility] ordered CT scan of the [...] DM type 2 history of bleeding ulcer MN Surgical History: Appendectomy 2017 Cholecystectomy 2018 Social History: Smokes 2 packs of cigarettes daily, drinks alcohol occasionally, smokes Ma Denatorjuana on regular bases. Family History: Father: killed at age 4747 year old, history of MN and CAD. Mother at age 83, history [...] details of HPI) Sleep apnea history of MN Plan: I discussed the patient's case with thoracic specialist in [facility], who recommends chest xray tonight, then tomorrow [...] <Electronically signed by Jaylon Baird MD> Jaylon Barid MD 11/11/19917 D: ALBIB 11/10/192150 T: ALBIB 11/10/192150 CC: Name Value Range Interpretation Code Description Data Raquel rce(s) Supporting Document(s) ID Date Data Source [id number] 11/10/2019 07:41:00 PM EDT [facility] [address] [place] [address] PHONE: [phone] FAX: [phone] Name ..............: DIMA Garcia Acct Number ...........................: [id number] ROOM. ............: [address] Number ............................: [id number] Stay type.........: E/R Discharge Date...............:11/10/19 Admit Date .....: 11/10/19 Admit Phys .............................: MITCHELL GEO Date of ..: 1955 Family Phys ...........................: TRU WATERMAN Phone..............: [phone] Age.................................:64 Film# ...............:[id number] Sex.................................:M Unsigned transcriptions are preliminary reports and do not represent a medical or legal document EKG [id number] COMPLETE:11/10/19 13:29 [facility] [id number] Please See Scanned Results. Name Value Range Interpretation Code Description Data Raquel rce(s) Supporting Document(s) ID Date Data Source [id number] 11/10/2019 07:42:00 PM EDT [facility] Name Value Range Interpretation Code Description Data Raquel rce(s) Supporting Document(s) Phenytoin [Mass/volume] in Serum or Plasma 1.4 ug/mL 10-20 Belo w low normal [facility] ID Date Data Source [id number] 11/10/2019 02:08:00 PM EDT [facility] Name Value Range Interpretation Code Description Data Raquel rce(s) Supporting Document(s) [facility]IS [facility] yellow NORMAL: Yellow [facility] CLARITY clear NORMAL: Clear [facility] Specific gravity of Urine by Test strip 1.010 1.001 - 1.030 [facility] pH 7 5 - 9 [facility] Glucose [Mass/volume] in Urine by Test strip 1000 NORMAL: Negat [facility] A [facility] Bilirubin.total [Presence] in Urine by Test strip NEG NORMAL: Negative [facility] Ketones [Presence] in Urine by Test strip NEG NORMAL: Negative [facility] Protein [Mass/volume] in Urine by Test strip NEG NORMAL: Negat [facility] Nitrite [Presence] in Urine by Test strip NEG NORMAL: Negative [facility] BLOOD NEG NORMAL: Negative [facility] Leukocyte esterase [Presence] in Urine by Test strip NEG SANDRA L: Negative [facility] Urobilinogen [Mass/volume] in Urine by Test strip NOR less jenniffer n 1.0 mg/dL [facility] MICROSCOPIC Not Indicate [facility] ID Date Data Source [id number] 11/10/2019 01:10:00 PM EDT [facility] Name Value Range Interpretation Code Description Data Raquel e(s) Supporting Document(s) TROPONIN T <0.01 NG/ML 0.00 - 0.10 [facility] ospital TROPONIN T0.1 ng/ml Recommended as the c linical threshold value forTroponin T. ID Date Data Source [id number] 11/10/2019 12:34:00 PM EDT [facility] Name Value Range Interpretation Code Description Data [facility](s) Supporting Document(s) COMPREHENSIVE METABOLIC PANEL [facility] COMPREHENSIVE METABOLIC PANEL Sodium [Moles/volume] in Serum or Plasma 132 mEq/L 134 - 153 L [facility] Potassium [Moles/volume] in Serum or Plasma 4.2 mEq/L 3.6 - 5.0 [facility] Chloride [Moles/volume] in Serum or Plasma 99 mEq/L 98 - 107 [facility] Carbon dioxide, total [Moles/volume] in Serum or Plasma 23 MEQ/L 22 - 30 [facility] Glucose [Mass/volume] in Serum or Plasma 352 MG/DL 65 - 110 H [facility] BUN 16 MG/DL 7 - 21 [facility] al Creatinine [Mass/volume] in Serum or Plasma 0.5 MG/DL 0.7 - 1.5 L [facility] BUN/CREAT 32 8 - 27 H [facility] Protein [Mass/volume] in Serum or Plasma 7.1 G/DL 6.3 - 8.2 [facility] Albumin [Mass/volume] in Serum or Plasma 4.3 G/DL 3.9 - 5.0 [facility] Globulin [Mass/volume] in Serum by calculation 2.8 GM/DL 2.4 - 3.2 [facility] A/G RATIO 1.5 0.8 - 2.0 [facility] Calcium [Mass/volume] in Serum or Plasma 8.6 MG/DL 8.4 - 10.2 [facility] Bilirubin.total [Mass/volume] in Serum or Plasma <0.7 MG/DL 0.2 - 1.3 [facility] Alkaline phosphatase [Enzymatic activity/volume] in Serum or Plasma 78 U/L 38 - 126 [facility] Aspartate aminotransferase [Enzymatic activity/volume] in Serum or Plasma 11 U/L 5 - 40 [facility] Alanine aminotransferase [Enzymatic activity/volume] in Seru m or Plasma 13 U/L 7 - 56 [facility] Anion gap 3 in Serum or Plasma 10.0 mmol/L 8.0 - 16.0 [facility]GE 64 [facility] G[facility] >60 mL/min [facility] AFR AMER GFR >60 mL/min [facility] Male GFR In terprentation [...] >32 mL/min Normal ID Date Data Source [id number] 11/10/2019 12:24:00 PM EDT [facility] Name Value Range Interpretation Code Description Data Raquel rce(s) Supporting Document(s) BNP 23 PG/ML 0 - 125 [facility] ID Date Data Source [id number] 11/10/2019 12:24:00 PM EDT [facility] Name Value Range Interpretation Code Description Data Raquel rce(s) Supporting Document(s) Magnesium [Mass/volume] in Serum or Plasma 1.8 MG/DL 1.7 - 2.2 [facility] ID Date Data Source [id number] 11/10/2019 12:24:00 PM EDT [facility] Name Value Range Interpretation Code Description Data Raquel rce(s) Supporting Document(s) Lipase [Enzymatic activity/volume] in Serum or Plasma 21 U/L 13 - 60 [facility] ID Date Data Source [id number] 11/10/2019 12:22:00 PM EDT [facility] Name Value Range Interpretation Code Description Data Raquel rce(s) Supporting Document(s) Prothrombin time (PT) 15.7 SECONDS 11.0 - 15.5 H [facility] INR in Platelet poor plasma by Coagulation assay 1.23 0.93 - 1. 23 [facility] aPTT in Blood by Coagulation assay 32.9 SECONDS 24.8 - 36.7 [facility] \\BLDo\\INR INTERPRETATION\\BLDx\\ Therapeutic range for Coumadin and related oral anticoagulants. - International Normalized Ratio (INR): 2.0 - 3.0 for Venous Thrombosis, Pulmonary Embolus, Tissue heart valves, Acute MN Atrial Fibrillation, Valvular heart disease and recurrent Systemic Embolism. - International Normalized Ratio (INR): 2.5 - 3.5 for Mechanical Prosthetic valve. ID Date Data Source [id number] 11/10/2019 12:03:00 PM EDT [facility] Name Value Range Interpretation Code Description Data Raquel rce(s) Supporting Document(s) CBC W/AUTOMATED DIFF [facility] COMPLETE BLOOD COUNT Leukocytes [#/volume] in Blood by Automated count 8.0 10^3/uL 4.2 - 1 1.0 [facility] Erythrocytes [#/volume] in Blood by Automated count 4.54 10^6/uL 4. 50 - 6.30 [facility] Hemoglobin [Mass/volume] in Blood 13.8 g/dL 14.0 - 16.0 L [facility] Hematocrit [Volume Fraction] of Blood by Automated count 39.9 % 4 1.0 - 51.0 L [facility] Erythrocyte mean corpuscular volume [Entitic volume] by Auto mated count 87.9 fL 80.0 - 94.0 [facility] Erythrocyte mean corpuscular hemoglobin [Entitic mass] by Automated count 30.4 pg 27.0 - 34.0 [facility] Erythrocyte mean corpuscular hemoglobin concentration [Mass/volume] by Automated count 34.6 g/dL 31.0 - 36.0 [facility] Erythrocyte distribution width [Ratio] by Automated count 14.5 % 11.5 - 14.8 [facility] Platelets [#/volume] in Blood by Automated count 221 10^3/uL 150 - 45 0 [facility] Platelet mean volume [Entitic volume] in Blood by Automated count 8.9 fL 7.4 - 10.4 [facility] Neutrophils/100 leukocytes in Blood by Automated count 65.4 % 37. 0 - 80.0 [facility] Lymphocytes/100 leukocytes in Blood by Manual count 24.9 % 25.0 - 40.0 L [facility] Monocytes/100 leukocytes in Blood by Automated count 6.9 % 3.0 - 8.0 [facility] Eosinophils/100 leukocytes in Blood by Automated count 1.7 % 0.0 - 7.0 [facility] Basophils/100 leukocytes in Blood by Automated count 0.9 % 0.0 - 2.0 [facility] %IG 0.2 % 0.0 - 0.0 [facility] %NRBC 0.0 % 0.0 - 0.0 [facility] al Neutrophils [#/volume] in Blood by Automated count 5.24 10^3/uL 2.00 - 6.90 [facility] Lymphocytes [#/volume] in Blood by Automated count 2.00 10^3/uL 0.60 - 3.40 [facility] Monocytes [#/volume] in Blood by Automated count 0.55 10^3/uL 0.00 - 0.90 [facility] Eosinophils [#/volume] in Blood by Automated count 0.14 10^3/uL 0.00 - 0.70 [facility] Basophils [#/volume] in Blood by Automated count 0.07 10^3/uL 0.00 - 0.20 [facility] #IG 0.02 10^3/uL 0.00 - 0.10 [facility] #NRBC 0.00 10^3/uL 0.00 - 0.00 [facility] MANUAL DIFF NOT INDICATED [facility] RBC MORPH NOT INDICATED [facility] spital ID Date Data Source [id number] 05/14/2019 09:46:00 AM EST [facility] 1 OrderSheet [facility] Emergency Department [address] [place] [address] Phone #: ext- [phone] 05/14/2019 09:45 [id number] Sex: M : 1955 Age: 64yWEIGHT:73.4 kg (S) HEIGHT:68 inches (S) BMI:24.6ALLERGIES: Acetaminophen, Benadryl, [place], Motrin, Paxil, Penicillins, ThorazineCHIEF COMPLAINT: weaknessDIAGNOSIS: Diabetes [...] 10:23 Denver Luis RN(Oxygen?(No)) Bubba; 2 OrderSheet [facility] Emergency Department [address] [place] [address] Phone #: ext- [phone] 05/14/2019 09:45 Patient: DONNY FAITH Sex: M [...] TerryMonitor Denver Arreaga RN, M.D.;EKG 10:05/14/2019 10:34 [place] [facility] Denver Arreaga [facility] M.D.; [id number] Old EKG 10:05/14/2019 10:23 Denver Bojorquez RN, M.D.;Obtain Old Records 10:05/14/2019 10:23 Denver Bojorquez RN, M.D.;Saline Lock 10:05/14/2019 10:23 Denver Bojorquez RN, M.D.;Vitals 10:05/14/2019 10:23 Denver Bojorquez RN, M.D.; 3 OrderSheet [facility] Emergency Department [address] [place] [address] Phone #: ext- [phone] 05/14/2019 09:45 Patient: [...] rce(s) Supporting Document(s) ID Date Data Source [id number] 05/14/2019 09:46:00 AM EST [facility] 1 Medication Reconciliation Report [facility] Emergency Department [address] [place] [address] Phone #: ext- [phone] 05/14/2019 09:45 Patient: DONNY FAITH Sex: M : 1955 Age: 64yWeight: 73.4 kgHeight/Length: 68 in.BMI: 24.6ALLERGIES: Acetaminophen, Benadryl, [place], Motrin, Paxil, Penicillins, ThorazineThe patient's Home Medications are listed below:CONTINUE TAKING THE FOLLOWING MEDICATIONS: Advair Diskus Inhalation (500-50 mcg/dose) 1 inhalation, 2x a day Advocate Insulin [place] Aspir-81 Oral (81 mg) 1 tablet, daily Basaglar 20 unita, at bedtime [facility] Claritin Oral (5 mg) 1 tablet, daily, [...] 2x a day 2 Medication Reconciliation Report [facility] Emergency Department [address] [place] [address] Phone #: ext- [phone] 05/14/2019 09:45 Patient: [...] rce(s) Supporting Document(s) ID Date Data Source [id number] 05/14/2019 09:46:00 AM EST [facility] 1 Medication Administration Record [facility] Emergency Department [address] [place] [address] Phone #: ext- [phone] 05/14/2019 09:45 Patient: DONNY FAITH Sex: M : 1955 Age: 64yWeight: 73.4 kgHeight/Length: 68 inBMI: 24.6ALLERGIES: Acetaminophen, Benadryl, [place], Motrin, Paxil, Penicillins, Thorazine Date/Time Medication Administered Medication OrderedStart normal saline * NS IV 1000 mL Bolus: : Bolus [id number] 05/14/2019 Dose: 1000 cc bolus * IV [...] rce(s) Supporting Document(s) ID Date Data Source [id number] 05/14/2019 09:46:00 AM EST [facility] 1 General Instructions [facility] Emergency Department [address] [place] [address] Phone #: ext- [phone] 05/14/2019 09:45 Patient: [...] 1 inhalation 2x a day.Advocate Insulin [place]*.Aspir-81 Oral : Tablet Delayed Release 81 mg, 1 tablet daily.Basaglar* : 20 unita, at bedtime.[facility]* : [place].Claritin Oral : Tablet Chewable 5 mg, 1 [...] : 2x a day. 2 General Instructions [facility] Emergency Department [address] [place] [address] Phone #: ext- [phone] 05/14/2019 09:45 Patient: [...] wsiness or loss of consciousnessIf you have tbdf-cvztw-geoyd symptoms, use a blood or urine test to find out what your blood sugarlevel is. If it is above your usual range, use the "sliding scale" regular insulin dose prescribed by your 3 General Instructions [facility] Emergency Department [address] [place] [address] Phone #: ext- [phone] 05/14/2019 09:45 Patient: [...] hospital emergency room or urgent care center [id number] [employer]. [address] [place] [address]. All rights reserved. This information is not [...] starchy vegetables o Vegetables 4 General Instructions [facility] Emergency Department [address] [place] [address] Phone #: ext- [phone] 05/14/2019 09:45 Patient: [...] of Nutrition and Dietetics www.eatright.org o The [place] [employer] [phone] www.diabetes.org 9974-2167 [employer]. [address] [place] [address]. All rights reserved. This information is not intended as asubstitute for professional medical care. Always follow your healthcare professional's instructions. You have been given the following additional information: Diabetes with High Blood Sugar Diet: Diabetes 5 General Instructions [facility] Emergency Department [address] [place] [address] Phone #: ext- [phone] 05/14/2019 09:45 Patient: DONNY FAITH Sex: M : 1955 Age: 64y(Electronically signed by Denver Arreaga M.D. 05/14/2019 14:59) Name Value Range Interpretation Code Description Data Raquel rce(s) Supporting Document(s) ID Date Data Source [id number] 05/14/2019 09:46:00 AM EST [facility] 1 Clinical Report - Nurses [facility] Emergency Department [address] [place] [address] Phone #: ext- [phone] 05/14/2019 09:45 Patient: [...] 24.6. --09:58 05/14/19 Latonya Henderson R.N. Medications [facility]. --09:58 05/14/19 Quoc Sandoval RN Advair Diskus Inhalation (Aerosol Powder Breath Activated 500-50 mcg/dose) 1 inhalation, 2x a day. Advocate Insulin [place]. Aspir-81 Oral (Tablet Delayed Release 81 mg) [...] a day. 2 Clinical Report - Nurses [facility] Emergency Department [address] [place] [address] Phone #: ext- [phone] 05/14/2019 09:45 Patient: DONNY FAITH Sex: M : 1955 Age: 64yVentolin HFA Inhalation 2 puffs, q8h as needed, sob.Z pack 1 tab day pt on day 3. --09:58 05/14/19 Latonya Henderson R.N.The following entry was struck and corrected by Quoc Sandoval RN, 10:39 (05/14/19) Reason forcorrection - other(correction). [facility]. --09:58 05/14/19 Latonya Henderson R.N. .AllergiesAcetaminophen.Benadryl.[place].Motrin.Paxil.Penicillins.Thorazine. --09:58 05/14/19 Latonya Henderson R.N.PROBLEMS:CVA - Cerebrovascular Accident.COPD - Chronic Obstructive Pulmonary Disease.Diabetes Mellitus.Parkinson's Disease.MN.Heart Disease.Emphysema.Hypercholesterolemia.Lung Disease.Hypertension. --09:59 05/14/19 Latonya Henderson R.N.ADDITIONAL [...] before today?". 3 Clinical Report - Nurses [facility] Emergency Department [address] [place] [address] Phone #: ext- [phone] 05/14/2019 09:45 Patient: [...] Sandoval RN 4 Clinical Report - Nurses [facility] Emergency Department [address] [place] [address] Phone #: ext- [phone] 05/14/2019 09:45 Patient: DONNY FAITH Sex: M : 1955 Age: 64yEKG time: (10:31 05/14/2019). EKG was performed by a gladys and shown to the ED physician. --10:341 [facility] Ohhi345:30 05/14/2019 normal saline * IV Fluids 1000 [...] RR: 18. O2 saturation: 91%. --11:06 05/14/19 [facility] Skof007:29 05/14/19. BP: 121/72. MAP: 88. HR: 82. RR: 16. O2 saturation: 92%. --11:30 05/14/19 [facility] [id number] stick glucose: 1130 decreased to 341; performed by nurse; result shown to the ED physician. (1130 pt c/o sinus pain M D notified). --11:37 05/14/19 Quoc Sandoval RN11:52 05/14/2019 Oxycodone PO Tablets 5 mg given. Allergies verified and confirmed 5 rights. Informationreviewed with patient. --11:52 05/14/19 Quoc Sandoval RN12:05/14/19. BP: 133/76. MAP: 95. HR: 82. RR: 16. O2 saturation: 94%. --12:01 05/14/19 [facility] Ivon, ER Ixmg922:31 05/14/19. BP: 120/78. MAP: 92. HR: 93. RR: 16. O2 saturation: 91%. --12:31 05/14/19 [facility] Ivon, [id number] stick glucose: 1240 accu check 289; performed by nurse; result shown to the ED physician. ( 1240lunch tray offered and taken well). --12:48 05/14/19 Quoc Sandoval RN 5 Clinical Report - Nurses [facility] Emergency Department [address] [place] [address] Phone #: ext- [phone] 05/14/2019 09:45 Patient: [...] Patient verbalized understanding. Written instructions provided in Vietnamese. The patient was discharged by the physician. [...] rce(s) Supporting Document(s) ID Date Data Source [id number] 05/14/2019 09:46:00 AM EST [facility] 1 Clinical Report - Physicians/Mid Levels [facility] Emergency Department [address] [place] [address] Phone #: ext- [phone] 05/14/2019 09:45 Patient: [...] care: The patient was seen recently at [facility]. ( in last week for [...] Obstructive Pulmonary Disease. Diabetes Mellitus. Parkinson's Disease. MN. Heart Disease. Emphysema. Hypercholesterolemia. Lung Disease. Hypertension. 2 Clinical Report - Physicians/Mid Levels [facility] Emergency Department [address] [place] [address] Phone #: ext- [phone] 05/14/2019 09:45 --- [...] inhalation, 2x a day. Advocate Insulin [place]. Aspir-81 Oral (Tablet Delayed Release 81 mg) 1 tablet, daily. Basaglar 20 unita, at bedtime. [facility]. Claritin Oral (Tablet Chewable 5 mg) 1 tablet, daily at bedtime. Al lergies: Acetaminophen. Benadryl. [place]. Motrin. Paxil. Penicillins. Thorazine.SOCIAL HISTORYFormer smoker. No alcohol use or drug use.ADDITIONAL NOTESThe nursing notes have been reviewed with agreement regarding the chief complaint, HPI, ROS, PMH and 3 Clinical Report - Physicians/Mid Levels [facility] Emergency Department [address] [place] [address] Phone #: ext- [phone] 05/14/2019 09:45 Patient: [...] 40.0) 4 Clinical Report - Physicians/Mid Levels [facility] Emergency Department [address] [place] [address] Phone #: ext- [phone] 05/14/2019 09:45 Patient: DONNY FAITH Sex: M [...] READ BACK CALLED TO DR. ARREAGA BY: [facility] DATE/TIME 05.14.19 @ 1140 BUN 13 MG/DL [...] Male GFR Interprentation 20-49 yrs >60 mL/min Lotdrb24-64 yrs >56 mL/min Normal 60-69 yrs >49 mL/min Normal 70-79yrs>42 mL/min Normal 80 and above >35 mL/min Normal Female GFRInterpretation 20-39 yrs >60 mL/min Normal 40-49 yrs >58 mL/minNormal 50- 59 yrs >51 mL/min Normal 60-69 yrs >45 mL/min Zrhfqr92-78 yrs >39 mL/min Normal 80 and above [...] VenousThrombosis, Pulmonary Embolus, Tissue heart valves, Acute MN Atrial Fibrillation, Valvular heart disease 5 Clinical Report - Physicians/Mid Levels [facility] Emergency Department [address] [place] [address] Phone #: ext- [phone] 05/14/2019 09:45 Patient: [...] 05/14/2019 11:17) In Progress Exam CHEST PORTABLE [facility] [address] [place] [address] PHONE: [phone] FAX: [phone] Name .................. : DIMA Garcia Acct Number.................. : [id number] ROOM. ................. : [facility] MR Number ................... : [id number] Stay type ............. : E/R Discharge Date......... ... : Admit Date ......... : 05/14/19 Admit Phys .................... : WHITLEY OLMSTEAD Date of ....... : 1955 Family Phys ................... : TRU WATERMAN Phone .................. : [phone] Age ................................ : 64 Film# .................. .:[id number] Sex ................................. 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 Patient counseled in [...] hyperglycemia. 7 Clinical Report - Physicians/Mid Levels [facility] Emergency Department [address] [place] [address] Phone #: ext- [phone] 05/14/2019 09:45 Patient: [...] 1 inhalation 2x a day.Advocate Insulin Pen [place]*.Aspir-81 Oral : Tablet Delayed Release 81 mg, 1 tablet daily.Basaglar* : 20 unita, at bedtime.[facility].Claritin Oral : Tablet Chewable 5 mg, 1 [...] 3*.Follow-up: 8 Clinical Report - Physicians/Mid Levels [facility] Emergency Department [address] [place] [address] Phone #: ext- [phone] 05/14/2019 09:45 Patient: [...] Name Value Range Interpretation Code Description Data [facility] rce(s) Supporting Document(s) ID Date Data Source [id number] 05/14/2019 09:46:00 AM [facility] VisitID: [id number] Date: 7:54normal saline * IV Fluids 1000 cc bolusNormal saline IV Fluids Discontinued: bag #1 infused. Total amount infused: 1000 mL.(Electronically signed by Quoc Sandoval RN - 05/28/2019 7:54) Name Value Range Interpretation Code Description Data [facility] rce(s) Supporting Document(s) ID Date Data Source [id number] 05/15/2019 09:43:00 [place] [address] PHONE: [phone] FAX: [phone] Name .................. : DIMA Garcia Acct Number.................. : [id number] ROOM. ................. : TR-07 MR Number ................... : [id number] Stay type ............. : E/R Discharge Date......... ... : Admit Date ......... : 05/14/19 Admit Phys .................... : WHITLEY OLMSTEAD Date of ....... : 1955 Family Phys ................... : TRU WATERMAN Phone .................. : [phone] Age ................................ : 64 Film# .................. .:[id number] Sex ................................. : M Unsigned transcriptions are preliminary reports and do not represent a medical or legal document CHEST PORTABLE [id number] COMPLETE:05/14/19 10:22 71247 Reason(s): weakness, cough PORTABLE CHEST X- RAY: [...] rce(s) Supporting Document(s) ID Date Data Source [id number] 05/15/2019 01:02:00 AM [facility] [address] [place] [address] RESPIRATORY CARE REPORT ==== ---------NAME------- NUMBER SEX AGE ADMIT DISC. XRAY# F/C [facility] DONNY A [id number] M 64 05/14/19 05/14/19 [id number] MB4 E/R DATE OF : 1955 M/R# [id number] #: [id number] TR-07 LOCATION: EMERGENCY DEPT EKG 33810 COMP LETE:05/14/19 15:40 [place] [address] PHYSICIAN: WHITLEY OLMSTEAD Name Value Range Interpretation Code Description Data Raquel rce(s) Supporting Document(s) ID Date Data Source [id number] 05/14/2019 11:42:00 AM [facility] Name Value Range Interpretation Code Description Data Raquel rce(s) Supporting Document(s) COMPREHENSIVE METABOLIC PANEL [facility] COMPREHENSIVE METABOLIC PANEL Sodium [Moles/volume] in Serum or Plasma 131 mEq/L 134 - 153 L [facility] Potassium [Moles/volume] in Serum or Plasma 3.8 mEq/L 3.6 - 5.0 [facility] Chloride [Moles/volume] in Serum or Plasma 94 mEq/L 98 - 107 L [facility] Carbon dioxide, total [Moles/volume] in Serum or Plasma 24 MEQ/L 22 - 30 [facility] Glucose [Mass/volume] in Serum or Plasma 445 MG/DL 65 - 110 [facility] CHECKED IN DUPLICATE CALL/ READ BACK CALLED TO DR. WHITLEY [facility] BY: MANUEL [facility] DATE/TIME 05.14.19 @ 1239 [facility] ospital BUN 13 MG/DL 7 - 21 [facility] Creatinine [Mass/volume] in Serum or Plasma 0.6 MG/DL 0.7 - 1.5 L [facility] BUN/CREAT 22 8 - 27 [facility] Protein [Mass/volume] in Serum or Plasma 6.1 G/DL 6.3 - 8.2 L [facility] Albumin [Mass/volume] in Serum or Plasma 3.6 G/DL 3.9 - 5.0 L [facility] Globulin [Mass/volume] in Serum by calculation 2.5 GM/DL 2.4 - 3.2 [facility] A/G RATIO 1.4 0.8 - 2.0 [facility] Calcium [Mass/volume] in Serum or Plasma 8.8 MG/DL 8.4 - 10.2 [facility] Bilirubin.total [Mass/volume] in Serum or Plasma <0.7 MG/DL 0.2 - 1.3 [facility] Alkaline phosphatase [Enzymatic activity/volume] in Serum or Plasma 71 U/L 38 - 126 [facility] Aspartate aminotransferase [Enzymatic activity/volume] in Serum or Plasma 12 U/L 5 - 40 [facility] Alanine aminotransferase [Enzymatic activity/volume] in Seru m or Plasma 17 U/L 7 - 56 [facility] Anion gap 3 in Serum or Plasma 13.0 mmol/L 8.0 - 16.0 [facility] AGE 64 yrs [facility] NON-AA GFR >60 mL/min [facility] ital AFR AMER GFR >60 mL/min [facility] Male GFR In terprentation [...] >32 mL/min Normal ID Date Data Source [id number] 05/14/2019 11:15:00 AM [facility] Value Range Interpretation Code Description Data Raquel rce(s) Supporting Document(s) Lipase [Enzymatic activity/volume] in Serum or Plasma 27 U/L 13 - 60 [facility] ID Date Data Source [id number] 05/14/2019 11:13:00 AM [facility] Name Value Range Interpretation Code Description Data Raquel rce(s) Supporting Document(s) TROPONIN T 0.01 NG/ML 0.00 - 0.10 [facility] spital TROPONIN T0.1 ng/ml Recommended as the c linical threshold value forTroponin T. ID Date Data Source [id number] 05/14/2019 10:54:00 AM [facility] Value Range Interpretation Code Description Data Raquel rce(s) Supporting Document(s) Prothrombin time (PT) 14.4 SECONDS 11.0 - 15.5 [facility] INR in Platelet poor plasma by Coagulation assay 1.11 0.93 - 1. 23 [facility] aPTT in Blood by Coagulation assay 27.1 SECONDS 24.8 - 36.7 [facility] \\BLDo\\INR INTERPRETATION\\BLDx\\ Therapeutic range for Coumadin and related oral anticoagulants. - International Normalized Ratio (INR): 2.0 - 3.0 for Venous Thrombosis, Pulmonary Embolus, Tissue heart valves, Acute MN Atrial Fibrillation, Valvular heart disease and recurrent [...] and other interferences. ID Date Data Source [id number] 05/14/2019 10:51:00 AM [facility] Value Range Interpretation Code Description Data Raquel rce(s) Supporting Document(s) pH of Serum or Plasma 7.39 7.32 - 7.43 [facility] pCO2 V 47.2 mm/HG 38.0 - 51.0 [facility] pO2 V 26.5 mm/HG 30.0 - 55.0 L [facility] pital Bicarbonate [Moles/volume] in Venous blood 27.9 meq/L 22.0 - 29.0 [facility] TCO2 V 29.4 meq/L 22.0 - 29.0 [facility] Base excess in Blood by calculation 2.3 -2.0 - 2.0 H [facility] O2 SAT V 48.1 % 40.0 - 85.0 [facility] ital ID Date Data Source [id number] 05/14/2019 10:46:00 AM EST [facility] Name Value Range Interpretation Code Description Data Raquel rce(s) Supporting Document(s) CBC W/AUTOMATED DIFF [facility] COMPLETE BLOOD COUNT Leukocytes [#/volume] in Blood by Automated count 7.8 10^3/uL 4.2 - 1 1.0 [facility] Erythrocytes [#/volume] in Blood by Automated count 4.25 10^6/uL 4. 50 - 6.30 L [facility] Hemoglobin [Mass/volume] in Blood 13.4 g/dL 14.0 - 16.0 L [facility] Hematocrit [Volume Fraction] of Blood by Automated count 38.3 % 4 1.0 - 51.0 L [facility] Erythrocyte mean corpuscular volume [Entitic volume] by Auto mated count 90.1 fL 80.0 - 94.0 [facility] Erythrocyte mean corpuscular hemoglobin [Entitic mass] by Automated count 31.5 pg 27.0 - 34.0 [facility] Erythrocyte mean corpuscular hemoglobin concentration [Mass/volume] by Automated count 35.0 g/dL 31.0 - 36.0 [facility] Erythrocyte distribution width [Ratio] by Automated count 13.0 % 11.5 - 14.8 [facility] Platelets [#/volume] in Blood by Automated count 210 10^3/uL 150 - 45 0 [facility] Platelet mean volume [Entitic volume] in Blood by Automated count 9.2 fL 7.4 - 10.4 [facility] Neutrophils/100 leukocytes in Blood by Automated count 61.1 % 37. 0 - 80.0 [facility] Lymphocytes/100 leukocytes in Blood by Manual count 28.1 % 25.0 - 40.0 [facility] Monocytes/100 leukocytes in Blood by Automated count 6.0 % 3.0 - 8.0 [facility] Eosinophils/100 leukocytes in Blood by Automated count 3.5 % 0.0 - 7.0 [facility] Basophils/100 leukocytes in Blood by Automated count 0.4 % 0.0 - 2.0 [facility] %IG 0.9 % 0.0 - 0.0 [facility] %NRBC 0.0 % 0.0 - 0.0 [facility] al Neutrophils [#/volume] in Blood by Automated count 4.75 10^3/uL 2.00 - 6.90 [facility] Lymphocytes [#/volume] in Blood by Automated count 2.18 10^3/uL 0.60 - 3.40 [facility] Monocytes [#/volume] in Blood by Automated count 0.47 10^3/uL 0.00 - 0.90 [facility] Eosinophils [#/volume] in Blood by Automated count 0.27 10^3/uL 0.00 - 0.70 [facility] Basophils [#/volume] in Blood by Automated count 0.03 10^3/uL 0.00 - 0.20 [facility] #IG 0.07 10^3/uL 0.00 - 0.10 [facility] #NRBC 0.00 10^3/uL 0.00 - 0.00 [facility] MANUAL DIFF NOT INDICATED [facility] RBC MORPH NOT INDICATED [facility] ID Date Data Source [id number] 05/14/2019 10:47:00 AM EST [facility] Name Value Range Interpretation Code Description Data Raquel rce(s) Supporting Document(s) [facility] R [facility] COLOR yellow NORMAL: Yellow [facility] CLARITY clear NORMAL: Clear [facility] Specific gravity of Urine by Test strip 1.015 1.001 - 1.030 [facility] pH 6.5 5 - 9 [facility] Glucose [Mass/volume] in Urine by Test strip 1000 NORMAL: Negat savannah A [facility] Bilirubin.total [Presence] in Urine by Test strip NEG NORMAL: Negative [facility] Ketones [Presence] in Urine by Test strip NEG NORMAL: Negative [facility] Protein [Mass/volume] in Urine by Test strip NEG NORMAL: Negat savannah [facility] Nitrite [Presence] in Urine by Test strip NEG NORMAL: Negative [facility] BLOOD NEG NORMAL: Negative [facility] Leukocyte esterase [Presence] in Urine by Test strip NEG SANDRA L: Negative [facility] Urobilinogen [Mass/volume] in Urine by Test strip NOR less jenniffer n 1.0 mg/dL [facility] MICROSCOPIC See Below [facility] ital WBC None Seen NORMAL: NONE SEEN [facility] Erythrocytes [#/volume] in Urine by Test strip None Seen NORMAL: NON E SEEN [facility] EPITHELIAL FEW NORMAL: NONE SEEN [facility] Bacteria [Presence] in Urine sediment by Light microscopy No ne Seen NORMAL: NONE SEEN [facility] YEAST None [facility]en [facility] ID Date Data Source [id number] 05/09/2019 12:33:00 PM EST [facility] [address] [place] [address] RESPIRATORY CARE REPORT ==== ---------NAME------- NUMBER SEX AGE ADMIT DISC. XRAY# F/C AUTUMN Garcia [id number] M 64 05/07/19 05/07/19 [id number] MB4 E/R DATE OF : 1955 M/R# [id number] PH#: [phone] VT-08 LOCATION: EMERGENCY DEPT EKG 17626 COMP LETE:05/08/19 02:44 VMT [id number] PHYSICIAN: WHITLEY OLMSTEAD Name Value Range Interpretation Code Description Data Raquel rce(s) Supporting Document(s) ID Date Data Source [id number] 05/08/2019 09:35:00 AM EST [facility] [address] [place] [address] PHONE: [phone] FAX: [phone] Name .................. : DIMA Garcia Acct Number.................. : [id number] [facility] ................. [facility] Number [facility]... : [id number] Stay type ............. : E/R Discharge Date......... ... : 05/07/19 Admit Date ......... : 05/07/19 Admit Phys .................... : WHITLEY OLMSTEAD Date of ....... : 1955 Family Phys ................... : [employer] Phone .................. : [phone] Age ................................ : 64 Film# .................. .:[id number] Sex ................................. 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 PORTABLE CHEST X-RAY: COMPARISON: 12/16/18 FINDINGS: [...] rce(s) Supporting Document(s) ID Date Data Source [id number] 05/07/2019 06:37:00 PM EST [facility] 1 OrderSheet [facility] Emergency Department [address] [place] [address] Phone #: oxg- [phone] 05/07/2019 18:37 Patient: DONNY FAITH Sex: M : 1955 Age: 64yWEIGHT:75.2 kg (M) HEIGHT:68 inches (S) BMI:25.2ALLERGIES: Acetaminophen, Benadryl, [place], Motrin, Paxil, Penicillins, ThorazineCHIEF COMPLAINT: dyspnea, COPDDIAGNOSIS: Bronchitis, Chronic obstructive lung diseaseLAB ORDERSOrder Description Priority Entered Acknowledged InitialedCBC w Diff STAT 19:01 05/07/2019 19:08 Denver Dixon ED, Jesse ER M.D.; Clfu2DJW STAT 19:01 05/07/2019 19:08 Rangeljeffrey Arreaga, [facility] 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, Rk IZAGUIRRE M.D.; Dnsd0Epmqkr STAT 19:01 05/07/2019 19:08 Rangel Arreaga, [facility] 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, Rk IZAGUIRRE M.D.; Vkth2PB/PTT STAT 19:01 05/07/2019 19:08 Rangel Arreaga, [facility] 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, Rk IZAGUIRRE M.D.; Vryg5Qgfiiaxq-E STAT 19:01 05/07/2019 19:08 Rangel Arreaga, [facility] 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, Rk IZAGUIRRE M.D.; Ibtg9O-Nuisf STAT 19:01 05/07/2019 19:08 Rangel Arreaga, [facility] 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, Rk IZAGUIRRE M.D.; Ajmf8TJS STAT 19:01 05/07/2019 19:08 Rangel Arreaga, [facility] 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, Rk IZAGUIRRE M.D.; Dung0Fwghli Acid STAT 19:02 05/07/2019 19:08 Rangel Arreaga, [facility] 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, Rk IZAGUIRRE M.D.; Tbls1Whyet Culture STAT 19:02 05/07/2019 19:08 Rhempwfs25q X2 (Gurpreet Arreaga, [facility] 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, Rk ER19:02 05/07/2019) Bubba; Pfqy6Nnpeb Culture STAT 19:02 05/07/2019 19:12 Zoss, Dqyjnz97b X2 (Jasmyn Tando R.N.19:12 05/07/2019) Bubba;Venous Blood Gas STAT 19:02 05/07/2019 19:12 Zoss, July 15 OrderSheet [facility] Emergency Department [address] [place] [address] Phone #: ext- [phone] 05/07/2019 18:37 Patient: DONNY FAITH Sex: M : 1955 Age: 64y Denver ArreagaNPadma Mac;Influenza Nasal A B STAT 19:02 05/07/2019 19:12 Zoss, Latonya Denver Arreaga.N. M.DPadma; Reason for ordering with alerts: Clinical consideration given -- 19:02 05/07/2019 Denver Arreaga M.D.DIAGNOSTIC STUDY ORDERSOrder Description Priority Entered Acknowledged InitialedChest Portable 1 STAT 19:05/07/2019 19:08 [employer] (Oxygen? Denver Arreaga 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, Rk ER(Yes)) Bubba; Tech1 Reason for Study: [...] InitialedBlood Pressure 19:05/07/2019 19:05 Denver Bartholomew RN, M.D.;Pre K Teacher 19:05/07/2019 19:05 Lloyd(continuous) Denver Arreaga RN, M.D.; 3 OrderSheet [facility] Emergency Department [address] [place] [address] Phone #: ext- [phone] 05/07/2019 18:37 Patient: DONNY FAITH Sex: M : 1955 Age: 64yEKG 19:05/07/2019 19:05 Denver Vazquez RN, M.D.;NPO 19:05/07/2019 19:05 Denver Vazquez RN, M.D.;Obtain Old EKG 19:05/07/2019 19:12 Santiago, Denver Capellan R.N., M.D.;Obtain Old Records 19:05/07/2019 19:12 Latonya Henderson Riccardo R.N. M.D.;Oxygen (3 L/min) 19:05/07/2019 19:12 Ltaonya Henderson(NC) (Titrate to O2 Denver Arreaga R.N.Sat >92%) Bbuba;Oxygen titrate to 19:05/07/2019 19:12 Latonya Henderson92% Denver [...] rce(s) Supporting Document(s) ID Date Data Source [id number] 05/07/2019 06:37:00 PM EST [facility] 1 Medication Reconciliation Report [facility] Emergency Department [address] [place] [address] Phone #: ext- [phone] 05/07/2019 18:37 Patient: DONNY FAITH Sex: M : 1955 Age: 64yWeight: 75.2 kgHeight/Length: 68 in.BMI: 25.2ALLERGIES: Acetaminophen, Benadryl, [place], Motrin, Paxil, Penicillins, ThorazineThe patient's Home Medications are listed below:CONTINUE TAKING THE FOLLOWING MEDICATIONS: Advair Diskus Inhalation (500-50 mcg/dose) 1 inhalation, 2x a day Advocate Insulin [facility] [place] Aspir-81 Oral (81 mg) 1 tablet, daily Basaglar 20 unita, at bedtime [facility] Claritin Oral (5 mg) 1 tablet, [...] 2x a day 2 Medication Reconciliation Report [facility] Emergency Department [address] [place] [address] Phone #: ext- [phone] 05/07/2019 18:37 Patient: [...] Dispense 10 tablet. Refills: 0.Substitution permitted.Pharmacy - [facility] [place] [address]. .Tessalon Perles 100 mg capsule Take 1 capsule three times a day for 5 days -- Dispense 15 capsule.Refills: 1. Substitution permitted.Pharmacy - [facility]- [address] ; [place] [address]. . -- Denver Arreaga M.D. Name Value Range Interpretation Code Description Data Raquel rce(s) Supporting Document(s) ID Date Data Source [id number] 05/07/2019 06:37:00 PM [facility] 1 Medication Administration Record [facility] Emergency Department [address] [place] [address] Phone #: ext- [phone] 05/07/2019 18:37 Patient: DONNY FAITH Sex: M : 1955 Age: 64yWeight: 75.2 kgHeight/Length: 68 inBMI: 25.2ALLERGIES: Acetaminophen, Benadryl, [place], Motrin, Paxil, Penicillins, Thorazine Date/Time Medication Administered Medication OrderedGiven DUONEB [NEB TX] DuoNeb Neb Tx 3 mL19:18 05/07/2019 Dose: 1 unit dose Neb TXZoss, July, R.N.Given SOLU-MEDROL [IVP] SOLU-Medrol 125 mg IV X1 Dose:19:16 05/07/2019 (METHYLPREDNISOLONE SODIUM 125 mg (X1)Zopadmini, July, R.N. SUCC) Dose: 125 mg IVP Site: #1 right upper armStart NS [IV] NS IV 500 mL Bolus: : Bolus 39682:15 05/07/2019 Dose: IV Fluids mL, then 150 mL/hr (X1)Zopadmini, July, R.N. Rate: 125 mL/hr---- Bolus: 500 mL over 30 minute(s)Stop Dispensed: 1000 mL bag20:15 05/07/2019 Site: #1 right upper armZoss, Latonya, R.N.Given ATIVAN [PO] (LORAZEPAM) Ativan PO 1 mg20:14 05/07/2019 Dose: 1 mg POZoss, Latonya, R.N. Name Value Range Interpretation Code Description Data Raquel rce(s) Supporting Document(s) ID Date Data Source [id number] 05/07/2019 06:37:00 PM [facility] 1 General Instructions [facility] Emergency Department [address] [place] [address] Phone #: ext- [phone] 05/07/2019 18:37 [id number] Sex: M : 1955 Age: 64y Acute [...] inhalation 2x a day. Advocate Insulin Pen [place]*. Aspir-81 Oral : Tablet Delayed Release 81 mg, 1 tablet daily. Basaglar* : 20 unita, at bedtime. [facility]*. Claritin Oral : Tablet Chewable 5 [...] puffs q8h, prn, sob. 2 General Instructions [facility] Emergency Department [address] [place] [address] Phone #: ext- [phone] 05/07/2019 18:37 Patient: DONNY FAITH Sex: M : 1955 Age: 64yZ pack 1 tab day pt on day 3*.Prescription Medications:prednisone 20 mg tablet Take 2 tablet once a day for 5 days -- Dispense 10 tablet. Refills: 0.Substitution permitted.Pharmacy - [facility]- [address] ; [place] [address]. .Tessalon Perles 100 mg capsule Take 1 capsule three times a day for 5 days -- Dispense 15 capsule.Refills: 1. Substitution permitted.Pharmacy - [facility] ; [place] [address]. .Follow-up:Return to the emergency department as needed. [...] ADDITIONAL INFORMATIONViral Bronchitis (Adult) 3 General Instructions [facility] Emergency Department [address] [place] [address] Phone #: ext- [phone] 05/07/2019 18:37 Patient: [...] back to your usual 4 General Instructions [facility] Emergency Department [address] [place] [address] Phone #: ext- [phone] 05/07/2019 18:37 Patient: DONNY FAITH Sex: M : 1955 Age: 64y activities, don't let yourself get too tired. Do not smoke. Also avoid being exposed to secondhand smoke. You may use rwyg-wod-hccdugb medicine to control fever or pain, unless [...] loosen secretions in the nose and lungs. Ibca-nvo-vqqsixu cough, cold, and sore-throat medicines will not [...] headache, or stiff neck 5 General Instructions [facility] Emergency Department [address] [place] [address] Phone #: [phone]- [phone] 05/07/2019 18:37 Patient: DONNY FAITH Sex: M : 1955 Age: 64y Trouble breathing, wheezing, or pain with breathing [phone] [employer]. [address] [place] [address]. All rights reserved. This information is not [...] are having a flare-up: 6 General Instructions [facility] Emergency Department [address] [place] [address] Phone #: ext- [phone] 05/07/2019 18:37 Patient: [...] have been told to. 7 General Instructions [facility] Emergency Department [address] [place] [address] Phone #: ext- [phone] 05/07/2019 18:37 Patient: [...] new findings that may affect your care.Call [id number] if any of these occur: You have trouble breathing You feel confused or it's difficult to wake you up You faint or lose consciousness You have a rapid heart rate You have new pain in your chest, arm, shoulder, neck or upper back 8 General Instructions [facility] Emergency Department [address] [place] [address] Phone #: ext- [phone] 05/07/2019 18:37 Patient: [...] your ankles gets worse Dizziness or weakness [phone] [employer]. [address] [place] [address]. All rights reserved. This information is not intended as asubstitute for professional medical care. Always follow your healthcare professional's instructions.Viral Bronchitis (Adult) 9 General Instructions [facility] Emergency Department [address] [place] [address] Phone #: ext- [phone] 05/07/2019 18:37 Patient: [...] go back to your usual 10 General [facility] Emergency Department [address] [place] [address] Phone #: [phone]- [phone] 05/07/2019 18:37 [facility]: [id number] Sex: M : 1955 Age: 64y activities, don't let yourself get too tired. Do not smoke. Also avoid being exposed to secondhand smoke. You may use zbcp-rof-civahoh medicine to control fever or pain, unless [...] loosen secretions in the nose and lungs. Jhsc-rpe-jsvbbyk cough, cold, and sore-throat medicines will not [...] headache, or stiff neck 11 General Instructions [facility] Emergency Department [address] [place] [address] Phone #: vlz- [phone] 05/07/2019 18:37 Patient: DONNY FAITH Sex: M : 1955 Age: 64y Trouble breathing, wheezing, or pain with breathing [phone] [employer]. [address] [place] [address]. All rights reserved. This information is not intended as asubstitute for professional medical care. Always follow your healthcare professional's instructions. You have been given the following additional information: Bronchitis, No Antibiotic (Adult) COPD Flare Bronchitis, No Antibiotic (Adult )(Electronically signed by Denver Arreaga M.D. 05/07/2019 20:59) Name Value Range Interpretation Code Description Data Raquel rce(s) Supporting Document(s) ID Date Data Source [id number] 05/07/2019 06:37:00 PM [facility] 1 Clinical Report - Nurses [facility] Emergency Department [address] [place] [address] Phone #: ext- [phone] 05/07/2019 18:37 Patient: DONNY FAITH Sex: M [...] nausea yesterday and none today). 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 [...] inhalation, 2x a day. Advocate Insulin Pen [place]. Aspir-81 Oral (Tablet Delayed Release 81 mg) 1 tablet, daily. Basaglar 20 unita, at bedtime. [facility]. Claritin Oral (Tablet Chewable 5 mg) [...] HFA Inhalation. 2 Clinical Report - Nurses [facility] Emergency Department [address] [place] [address] Phone #: ext- [phone] 05/07/2019 18:37 Patient: [...] on day 3. --18:40 05/07/19 Lloyd Dixon RN.AllergiesAcetaminophen.Benadryl.[place].Motrin.Paxil.Penicillins.Thorazine. --18:40 05/07/19 Lloyd Dixon RN.HistoryPAST MEDICAL HX: [...] Dixon RN. 3 Clinical Report - Nurses [facility] Emergency Department [address] [place] [address] Phone #: ext- [phone] 05/07/2019 18:37 Patient: DONNY FAITH Sex: M [...] shown to the ED physician. --18:59 05/07/19 Agency 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, Rk, ZINA Tech1 Oxygen administered by nasal cannula at 2 liters. white metal caster, pulse oximeter and NIBP monitor placed on [...] swab done and sent to lab with landscaping and groundskeeping laborer.). --19:19 05/07/19 Santiago LatonyaDustin 19:15 05/07/2019 [...] Henderson R.N. 4 Clinical Report - Nurses [facility] Emergency Department [address] [place] [address] Phone #: ext- [phone] 05/07/2019 18:37 Patient: DONNY FAITH Sex: M : 1955 Age: 64y ( pt sitting in bed, nad, vss, monitors in place, side rails up x2, call light in reach, asking for pain meds, will make doc aware.). --20:00 05/07/19 Latonya Henderson R.N. 19:59 05/07/19. BP: 124/70. MAP: 88. [...] or swelling. IV flushed thoroughly. --20:16 05/07/19 Latoyna Henderson R.N. 20:19 05/07/2019 Site #1 removed upon discharge. Catheter intact. Bandaid applied. --20:19 05/07/19 Latonya Henderson R.N. No learning barriers present. Reviewed medication(s). Treatments reviewed. Patient verbalized understanding. Written instructions provided in Vietnamese. The patient was discharged by the physician. He was discharged home. He left ambulatory a nd via taxi. Driving (cab starter). --20:30 05/07/19 Latonya Henderson R.N. ( delvin provided, pt waiting on medicaid cab to go home.). --20:31 05/07/19 Latonya Henderson R.N.Locked/Released at 05/07/2019 20:31 by Latonya Henderson R.N. 5 Clinical Report - Nurses [facility] Emergency Department [address] [place] [address] Phone #: ext- [phone] 05/07/2019 18:37 Patient: DONNY FAITH Sex: M : 1955 Age: 64y Name Value Range Interpretation Code Description Data Raquel rce(s) Supporting Document(s) ID Date Data Source [id number] 05/07/2019 06:37:00 PM [facility] 1 Clinical Report - Physicians/Mid Levels [facility] Emergency Department [address] [place] [address] Phone #: ext- [phone] 05/07/2019 18:37 Patient: DONNY FAITH Sex: M [...] Wall Pain. Parkinson's Disease. Seizure. Sleep Apnea. [place]. Heart Disease. Hypercholesterolemia. 2 Clinical Report - Physicians/Mid Levels [facility] Emergency Department [address] [place] [address] Phone #: ext- [phone] 05/07/2019 18:37 Patient: [...] inhalation, 2x a day. Advocate Insulin Pen [place]. Aspir-81 Oral (Tablet Delayed Release 81 mg) 1 tablet, daily. Basaglar 20 unita, at bedtime. [facility]. Claritin Oral (Tablet Chewable 5 mg) 1 tablet, daily at bedtime. Allergies: Acetaminophen. Benadryl. [place]. Motrin. Paxil. Penicillins. Thorazine.SOCIAL HISTORYHeavy tobacco smoker- 1-2 packs per day. No alcohol use or drug use.ADDITIONAL NOTES 3 Clinical Report - Physicians/Mid Levels [facility] Emergency Department [address] [place] [address] Phone #: ext- [phone] 05/07/2019 18:37 Patient: DONNY FAITH Sex: M [...] process. Lactic Acid: (ROSARIO: 05/07/2019 19:15) ( [facility] 05/07/[facility] 19:33) Final results Test Result Flag Units (Reference) LACTIC ACID 2.0 MMOL/L (0.2 - 2.2) Venous Blood Gas: (ROSARIO: 05/07/2019 19:15) ( [facility] 05/07/2019 19:33) Final results Test Result Flag [...] Nasal A B: (ROSARIO: 05/07/2019 19:15) ( [facility] 05/07/2019 19:41) Final results Test Result Flag Units (Reference) INFLUENZA A NEGATIVE (NORMAL: NEGAT INFLUENZA B NEGATIVE (NORMAL: NEGAT INFLUENZA A REENTER NEGATIVE (NORMAL: NEGAT INFLUENZA B REENTER NEGATIVE (NORMAL: NEGAT PROCEDURAL CONTROL VALID KIT LOT # _[id number] Clinical Report - Physicians/Mid Levels [facility] Emergency Department [address] [place] [address] Phone #: ext- [phone] 05/07/2019 18:37 Patient: DONNY FAITH Sex: M : 1955 Age: 64y05/07/19.MISAEL. KIT EXP DATE _66-85-14 73/23/20.MISAEL.The Influenza A utilizing an isothermal nucleic acid [...] Male GFR Interprentation 20-49 yrs >60 mL/min Sxwyop80-14 yrs >56 mL/min Normal 60 -69 yrs >49 mL/min Normal 70-79yrs>42 mL/min Normal 80 and above >35 mL/min Normal Female GFRInterpretation 20-39 yrs >60 mL/min Normal 40-49 yrs >58 mL/min 5 Clinical Report - Physicians/Mid Levels [facility] Emergency Department [address] [place] [address] Phone #: ext- [phone] 05/07/2019 18:37 Patient: DONYN FAITH Sex: M : 1955 Age: 64y [...] Thrombosis, Pulmonary Embolus, Tissue heart valves, Acute [place] Atrial Fibrillation, Valvular heart disease and recurrent [...] other interferences. Troponin-T: (ROSARIO: 05/07/2019 19:15) ( [facility] 05/07/2019 19:52) Final results Test Result Flag Units (Reference) TROPONIN T <0.01 NG/ML (0.00 - 0.10) TROPONIN T0.1 ng/ml Recommended as the clinical threshold value forTroponin T. D-Dimer: (ROSARIO: 05/07/2019 19:15) ( [facility] 05/07/2019 19:33) Final results Test Result Flag Units (Reference) D-DIMER QUANT 0.44 ug/mL (0.27 - 0.50) BNP: (ROSARIO: 05/07/2019 19:15) ( [facility] 05/07/2019 19:56) Final results Test Result Flag Units (Reference) BNP 6 PG/ML (0 - 125) Chest Portable 1 View: (ROSARIO: 05/07/2019 19:01) ( [facility] 05/07/2019 19:31) In Progress CHEST PORTABLE Reason(s): [...] treatment. 6 Clinical Report - Physicians/Mid Levels [facility] Emergency Department [address] [place] [address] Phone #: ext- [phone] 05/07/2019 18:37 Patient: [...] inhalation 2x a day. Advocate Insulin Pen [place]*. Aspir-81 Oral : Tablet Delayed Release 81 mg, 1 tablet daily. Basaglar* : 20 unita, at bedtime. [facility]*. Claritin Oral : Tablet Chewable 5 [...] 3*. 7 Clinical Report - Physicians/Mid Levels [facility] Emergency Department [address] [place] [address] Phone #: ext- [phone] 05/07/2019 18:37 Patient: DONNY FAITH Sex: M : 1955 Age: 64y Prescription Medications: prednisone 20 mg tablet Take 2 tablet once a day for 5 days -- Dispense 10 tablet. Refills: 0. Substitution permitted. Pharmacy - [facility]- [address] [phone]. . Tessalon Perles 100 mg capsule Take 1 capsule three times a day for 5 days -- Dispense 15 capsule. Refills: 1. Substitution permitted. Pharmacy - [facility] [phone]. . Follow-up: Return to the emergency department [...] rce(s) Supporting Document(s) ID Date Data Source [id number] 05/13/2019 10:07:00 PM [facility] Name Value Range Interpretation Code Description Data Raquel rce(s) Supporting Document(s) CULTURE BLOOD [facility] _CULTURE BLOOD_ TEST PERFORM ED AT [address] [address] CLIA# [id number] SEE SCANNED REPORT{ PRELIM ID Date Data Source [id number] 05/13/2019 09:45:00 AM [facility] [address] Name Value Range Interpretation Code Description Data Raquel rce(s) Supporting Document(s) Bacteria identified in Blood by Culture [facility] NO GROWTH AFTER 5 DAYS ID Date Data Source [id number] 05/13/2019 10:06:00 PM [facility] Name Value Range Interpretation Code Description Data Raquel rce(s) Supporting Document(s) CULTURE BLOOD [facility] _CULTURE BLOOD_ TEST PERFORM ED AT [address] [address] CLIA# [id number] SEE SCANNED REPORT{ PRELIM ID Date Data Source [id number] 05/07/2019 08:01:00 PM [facility] Name Value Range Interpretation Code Description Data Raquel rce(s) Supporting Document(s) COMPREHENSIVE METABOLIC PANEL [facility] COMPREHENSIVE METABOLIC PANEL Sodium [Moles/volume] in Serum or Plasma 134 mEq/L 134 - 153 [facility] Potassium [Moles/volume] in Serum or Plasma 3.9 mEq/L 3.6 - 5.0 [facility] Chloride [Moles/volume] in Serum or Plasma 97 mEq/L 98 - 107 L [facility] Carbon dioxide, total [Moles/volume] in Serum or Plasma 24 MEQ/L 22 - 30 [facility] Glucose [Mass/volume] in Serum or Plasma 336 MG/DL 65 - 110 H [facility] BUN 19 MG/DL 7 - 21 [facility] Creatinine [Mass/volume] in Serum or Plasma 0.7 MG/DL 0.7 - 1.5 [facility] BUN/CREAT 27 8 - 27 [facility] al Protein [Mass/volume] in Serum or Plasma 7.1 G/DL 6.3 - 8.2 [facility] Albumin [Mass/volume] in Serum or Plasma 4.5 G/DL 3.9 - 5.0 [facility] Globulin [Mass/volume] in Serum by calculation 2.6 GM/DL 2.4 - 3.2 [facility] A/G RATIO 1.7 0.8 - 2.0 [facility] Calcium [Mass/volume] in Serum or Plasma 10.0 MG/DL 8.4 - 10.2 [facility] Bilirubin.total [Mass/volume] in Serum or Plasma 0.7 MG/DL 0.2 - 1.3 [facility] Alkaline phosphatase [Enzymatic activity/volume] in Serum or Plasma 89 U/L 38 - 126 [facility] Aspartate aminotransferase [Enzymatic activity/volume] in Serum or Plasma 14 U/L 5 - 40 [facility] Alanine aminotransferase [Enzymatic activity/volume] in Seru m or Plasma 18 U/L 7 - 56 [facility] Anion gap 3 in Serum or Plasma 13.0 mmol/L 8.0 - 16.0 [facility] AGE 64 yrs [facility] NON-AA GFR >60 mL/min [facility] ital AFR AMER GFR >60 mL/min [facility] Male GFR In terprentation [...] >32 mL/min Normal ID Date Data Source [id number] 05/07/2019 07:58:00 PM [facility] Name Value Range Interpretation Code Description Data Raquel rce(s) Supporting Document(s) Lipase [Enzymatic activity/volume] in Serum or Plasma 24 U/L 13 - 60 [facility] ID Date Data Source [id number] 05/07/2019 07:56:00 PM [facility] Name Value Range Interpretation Code Description Data Raquel rce(s) Supporting Document(s) BNP 6 PG/ML 0 - 125 [facility] ID Date Data Source [id number] 05/07/2019 07:51:00 PM [facility] Value Range Interpretation Code Description Data Raquel rce(s) Supporting Document(s) TROPONIN T <0.01 NG/ML 0.00 - 0.10 [facility] ospital TROPONIN T0.1 ng/ml Recommended as the c linical threshold value forTroponin T. ID Date Data Source [id number] 05/07/2019 07:41:00 PM [facility] Value Range Interpretation Code Description Data Raquel rce(s) Supporting Document(s) Influenza virus A Ag [Presence] in Nasopharynx by Immunoassa y NEGATIVE NORMAL: NEGATIVE [facility] Influenza virus B Ag [Presence] in Nasopharynx by Immunoassa y NEGATIVE NORMAL: NEGATIVE [facility] NEGATIVENEGATIVE PROCEDURAL CO NTROL VALID KIT LOT # _[id number] 05/07/19.MISAEL. KIT EXP DATE _01-27-36 05/07/19.MISAEL.The Influenza A & B assay is a rapid molecular in vitro diagnostic testutilizing an isothermal nucleic acid amplification technology for thequalitative detection of influenza A and B viral RNA.Negative results do not preclude influenza virus infection and should not beused as the sole basis for diagnosis, treatment or other patient managementdecisions. ID Date Data Source [id number] 05/07/2019 07:34:00 PM [facility] Name Value Range Interpretation Code Description Data Raquel rce(s) Supporting Document(s) Prothrombin time (PT) 13.9 SECONDS 11.0 - 15.5 [facility] INR in Platelet poor plasma by Coagulation assay 1.06 0.93 - 1. 23 [facility] aPTT in Blood by Coagulation assay 30.5 SECONDS 24.8 - 36.7 [facility] \\BLDo\\INR INTERPRETATION\\BLDx\\ Therapeutic range for Coumadin and related oral anticoagulants. - International Normalized Ratio (INR): 2.0 - 3.0 for Venous Thrombosis, Pulmonary Embolus, Tissue heart valves, Acute [place] Atrial Fibrillation, Valvular heart disease and recurrent [...] and other interferences. ID Date Data Source [id number] 05/07/2019 07:33:00 PM [facility] Name Value Range Interpretation Code Description Data Raquel rce(s) Supporting Document(s) pH of Serum or Plasma 7.44 7.32 - 7.43 [facility] pCO2 V 34.2 mm/HG 38.0 - 51.0 L [facility] pO2 V 128.9 mm/HG 30.0 - 55.0 H [facility] Bicarbonate [Moles/volume] in Venous blood 22.8 meq/L 22.0 - 29.0 [facility] TCO2 V 23.9 meq/L 22.0 - 29.0 [facility] Base excess in Blood by calculation -0.6 -2.0 - 2.0 [facility] O2 SAT V 99.0 % 40.0 - 85.0 [facility] ID Date Data Source [id number] 05/07/2019 07:33:00 PM [facility] Name Value Range Interpretation Code Description Data Raquel rce(s) Supporting Document(s) Lactate [Moles/volume] in Serum or Plasma 2.0 MMOL/L 0.2 - 2.2 [facility] ID Date Data Source [id number] 05/07/2019 07:33:00 PM EST [facility] Name Value Range Interpretation Code Description Data Raquel rce(s) Supporting Document(s) Fibrin D-dimer FEU [Mass/volume] in Platelet poor plasma 0.44 ug /mL 0.27 - 0.50 [facility] ID Date Data Source [id number] 05/07/2019 07:27:00 PM EST [facility] Name Value Range Interpretation Code Description Data Raquel rce(s) Supporting Document(s) CBC W/AUTOMATED DIFF [facility] COMPLETE BLOOD COUNT Leukocytes [#/volume] in Blood by Automated count 10.5 10^3/uL 4.2 - 11.0 [facility] Erythrocytes [#/volume] in Blood by Automated count 4.57 10^6/uL 4. 50 - 6.30 [facility] Hemoglobin [Mass/volume] in Blood 14.3 g/dL 14.0 - 16.0 [facility] Hematocrit [Volume Fraction] of Blood by Automated count 40.8 % 4 1.0 - 51.0 L [facility] Erythrocyte mean corpuscular volume [Entitic volume] by Auto mated count 89.3 fL 80.0 - 94.0 [facility] Erythrocyte mean corpuscular hemoglobin [Entitic mass] by Automated count 31.3 pg 27.0 - 34.0 [facility] Erythrocyte mean corpuscular hemoglobin concentration [Mass/volume] by Automated count 35.0 g/dL 31.0 - 36.0 [facility] Erythrocyte distribution width [Ratio] by Automated count 13.0 % 11.5 - 14.8 [facility] Platelets [#/volume] in Blood by Automated count 207 10^3/uL 150 - 45 0 [facility] Platelet mean volume [Entitic volume] in Blood by Automated count 9.3 fL 7.4 - 10.4 [facility] Neutrophils/100 leukocytes in Blood by Automated count 58.4 % 37. 0 - 80.0 [facility] Lymphocytes/100 leukocytes in Blood by Manual count 29.9 % 25.0 - 40.0 [facility] Monocytes/100 leukocytes in Blood by Automated count 7.4 % 3.0 - 8.0 [facility] Eosinophils/100 leukocytes in Blood by Automated count 3.4 % 0.0 - 7.0 [facility] Basophils/100 leukocytes in Blood by Automated count 0.6 % 0.0 - 2.0 [facility] %IG 0.3 % 0.0 - 0.0 [facility] %NRBC 0.0 % 0.0 - 0.[facility] Neut[facility] [#/volume] in Blood by Automated count 6.12 10^3/uL 2.00 - 6.90 [facility] Lymphocytes [#/volume] in Blood by Automated count 3.13 10^3/uL 0.60 - 3.40 [facility] Monocytes [#/volume] in Blood by Automated count 0.78 10^3/uL 0.00 - 0.90 [facility] Eosinophils [#/volume] in Blood by Automated count 0.36 10^3/uL 0.00 - 0.70 [facility] Basophils [#/volume] in Blood by Automated count 0.06 10^3/uL 0.00 - 0.20 [facility] #IG 0.03 10^3/uL 0.00 - 0.10 [facility] #NRBC 0.00 10^3/uL 0.00 - 0.00 [facility] MANUAL DIFF NOT INDICATED [facility] RBC MORPH NOT INDICATED [facility] Procedure Social History Code Duration Value Status Description Data Source(s ) 11/13/2019 11:12:35 AM EDT Current every day smoker co mpleted Current every day smoker [facility] Smoking 11/13/2019 11:12:00 AM EDT Current every day smoker co mpleted Current every day smoker [facility] Vital Signs ID Date Data Source UNK Name Value Range Interpretation Code Description Data Source(s) [place] body weight 154 [lb_av] 154 [lb_av] DASIA T ([facility], ) Body height 68 [in_i] 68 [in_i] MOIRA ([facility], ) 5'8" Oxygen saturation in Arterial blood by Pulse oximetry 99 % 99 % MOIRA ([facility], ) Room Air Heart rate 93 /min 93 /min [facility] ([facility], ) Diastolic blood pressure 70 mm[Hg] 70 mm[Hg] [facility] ([facility]) Systolic blood pressure 110 mm[Hg] 110 mm[Hg] [facility] ([facility]) [place] body weight 154 [lb_av] 154 [lb_av] MEDEN T ([facility]) Body height 68 [in_i] 68 [in_i] [facility] ([facility]) 5'8" Body temperature 97.8 [degF] 97.8 [degF] [facility] ([facility]) Oxygen saturation in Arterial blood by Pulse oximetry 98 % 98 % [facility] ([facility]) Room Air Heart rate 97 /min 97 /min [facility] ([facility]) Diastolic blood pressure 80 mm[Hg] 80 mm[Hg] [facility] ([facility]) Systolic blood pressure 130 mm[Hg] 130 mm[Hg] [facility] ([facility]) ID Date Data Source [id number] 02/11/2020 01:20:07 PM EDT [facility] Name Value Range Interpretation Code Description Data Source(s) WEIGHT RECORDED 157.00 pounds 157.00 pounds [facility] Height 68 Inches 068 Inches [facility] ID Date Data Source [id number] 02/09/2020 12:37:07 PM EDT [facility] Name Value Range Interpretation Code Description Data Source(s) WEIGHT RECORDED 148.80 pounds 148.80 pounds [facility] Height 68 Inches 068 Inches [facility]
[2020-05-17 01:49] VITALS: BP 123/85
--- NOTE | 2020-05-17 13:19 | ED PDOC ---
Post-Departure Follow-Up certified letter sent to pt re formal read of ct c spine and ct ls spine for fu . obtian pcp name and fax both reports to pcp. if no pcp [facility] and fax there and provide pt number. Amrit Haley MD May 17, 2020 13:19
== END 2020-05-17 01:57 | disposition home or self-care (01) ==
LOC: M ED 21:32
DX: S09.90XA Unspecified injury of head, initial encounter (principal); M54.2 Cervicalgia; M54.5 Low back pain; V03.131A Pedestrian on standing electric scooter injured in collision with car, pick-up or van in traffic accident, initial encounter; Y92.410 Unspecified street and highway as the place of occurrence of the external cause; M51.36 Other intervertebral disc degeneration, lumbar region; M48.061 Spinal stenosis, lumbar region without neurogenic claudication; N20.0 Calculus of kidney; F17.200 Nicotine dependence, unspecified, uncomplicated; Z88.0 Allergy status to penicillin; Z88.1 Allergy status to other antibiotic agents; Z88.8 Allergy status to other drugs, medicaments and biological substances; Z79.01 Long term (current) use of anticoagulants; Z79.51 Long term (current) use of inhaled steroids; Z79.899 Other long term (current) drug therapy
CPT/HCPCS: 70450; 72125; 72131; 96374; 99284; J3360

== ENCOUNTER 2020-06-08 19:59 | Emergency (ER) | payer MEDICARE, MEDICAID ==
[~2020-06-08] VITALS: Ht 172.7 cm; Wt 68.9 kg
--- OUTSIDE RECORDS SUMMARY | 2020-06-08 20:11 | CCD ---
Author Author [facility] Address Unknown Phone Unavailable Support Name Relationship Address Phone SYLV[place] [address] SKYELR ZAMBRANO Next Of Kin [address] [place] [address] LULA GREEN Next Of Kin [address] [place] [employer] [address] [place] [address] RE Next Of Kin Unknown Unavailable SKYLER [place] [address] JESSE SANDOVAL Next Of Kin [address] [place] [employer] [address] [place] [address] Seble Estrella Next Of Kin [address] [place] [address] Debi Faith Next Of Kin [address] [facility] [address] [place] [address] Radha FAITH Next Of Kin [address] [place] [employer] [address] [place] [address] Gonzalez Rob MD Next Of Kin [address] [place] [address] VERONIKA CALHOUN Next Of Kin [address] [place] [address] UE Next Of Kin Unknown Unavailable MESSI FLOOD Next Of Kin [address] [place] [address] DISABLED Next Of Kin Unknown Unavailable KALA (COUSIN) [place] [address] NO PHONE SOLA FAITH Next Of Kin [address] [place] [address] TJ SAAVEDRA [place] [address] KEE FAITH Next Of Kin [phone] [place] [address] MARÍA KNOXMOND Next Of Kin [address] [place] [address] SKYLER DAVIS Next Of Kin [address] [place] [address] JESSE SANDOVAL [place], [place] [phone] Care Team Providers Care Naval Designer Name Role Phone WOLFENDEN, T REBEKA PA [...] Unavailable WOLFENDEN, T REBEKA PA Unavailable Unavailable Stanley Ott MD Unavailable Unavailable Stanley Ott MD Unavailable Unavailable Stanley Ott MD Unavailable Unavailable Stanley Ott MD Unavailable Unavailable Stanley Ott MD Unavailable Unavailable Stanley Ott MD Unavailable Unavailable Stanley Ott MD Unavailable Unavailable Stanley Ott MD Unavailable Unavailable Stanley Ott MD Unavailable Unavailable Ángel Ottd Unavailable Unavailable OttCobyul Moid MD Unavailable Unavailable OttTalya Moid Unavailable Unavailable OttTalya Moid Unavailable Unavailable OttTalya Moid Unavailable Unavailable OttTalya Moid Unavailable Unavailable Ott, Talya Moid MD Unavailable Unavailable Ott, Talya Moid MD Unavailable Unavailable Ott, Talya Moid MD Unavailable Unavailable Ott, Talya Moid MD Unavailable Unavailable Ott, Talya Moid MD Unavailable Unavailable OttCobyul Moid MD Unavailable Unavailable Ott, Talya Moid MD Unavailable Unavailable Ott, Talya Moid MD Unavailable Unavailable Ott, Talya Moid MD Unavailable Unavailable OttTalya Moid Unavailable Unavailable Talya Ott Moid Unavailable Unavailable OttTalya Moid Unavailable Unavailable Talya Ott Moid MD Unavailable Unavailable Talya Ott Moid MD Unavailable Unavailable Ott Talya Moid MD Unavailable Unavailable Talya Ott Moid MD Unavailable Unavailable Talya Ott Moid MD Unavailable Unavailable Talya Ott Moid MD Unavailable Unavailable OttTalya Moid MD Unavailable Unavailable OttTalya Moid MD Unavailable Unavailable OttTalya Moid MD Unavailable Unavailable Talya Ott Moid [...] Unavailable Unavailable OttCobyul Moid MD Unavailable Unavailable Ott, Talya Moid MD Unavailable Unavailable OttCobyul Moid MD Unavailable Unavailable Talya Ott Moid Unavailable Unavailable Talya Ott Moid Unavailable Unavailable Talya Ott Moid Unavailable Unavailable Coby Ottul Moid MD Unavailable Unavailable Ott, Talya Moid MD Unavailable Unavailable Ott, Talya Moid MD Unavailable Unavailable Talya Ott Moid Unavailable Unavailable Talya Ott Moid Unavailable Unavailable OttStanley spencer MD Unavailable Unavailable Ott, Talya Moid MD Unavailable Unavailable Stanley Ott MD Unavailable Unavailable Stanley Ott MD Unavailable Unavailable Stanley Ott MD Unavailable Unavailable Stanley Ott MD Unavailable Unavailable Stanley Ott MD Unavailable Unavailable Stanley Ott MD Unavailable Unavailable Vallejo, Hao PA Unavailable Unavailable Vallejo, Hao PA Unavailable Unavailable Vallejo, Hao PA Unavailable Unavailable Vallejo, Hao PA Unavailable Unavailable Vallejo, Hao PA Unavailable Unavailable Vallejo, Hao PA Unavailable Unavailable Strassburg, B Jaylon HESS Unavailable Unavailable Strassburg, B Jaylon HESS Unavailable Unavailable [place]ass[place], B Jaylon HESS Unavailable Unavailable [place]ass[place], B Jaylon HESS Unavailable Unavailable [place]ass[place], B Jaylon HESS Unavailable Unavailable Strassburg, B Jaylon MD Unavailable Unavailable [place]ass[place], B Jaylon HESS Unavailable Unavailable [place], B Jaylon HESS Unavailable Unavailable [place], B Jaylon HESS Unavailable Unavailable [place], B Jaylon HESS Unavailable Unavailable [place], B Jaylon HESS Unavailable Unavailable [place], B Jaylon HESS Unavailable Unavailable IRA OTT MD Unavailable Unavailable [...] Unavailable TURRIN, DENVER Unavailable Unavailable Mitchell, J Eduin PA-C Unavailable Unavailable MitchellJob PA-C Unavailable Unavailable MitchellJob PA-C Unavailable Unavailable MitchellJob PA-C Unavailable Unavailable MitchellJob PA-C Unavailable Unavailable MitchellJob PA-C Unavailable Unavailable MitchellJob PA-C Unavailable Unavailable MitchellJob PA-C Unavailable Unavailable MitchellJob PA-C Unavailable Unavailable MitchellJob PA-C Unavailable Unavailable Job Medrano PA-C Unavailable Unavailable Mina Deng Unavailable Unavailable Juan Manuel FOURNEIR Unavailable Unavailable Eduin Klein MD Unavailable Unavailable Eduin Klein MD Unavailable Unavailable Eduin Klein MD Unavailable Unavailable Eduin Klein MD Unavailable Unavailable Eduin Klein MD Unavailable Unavailable Eduin Klein MD Unavailable Unavailable Eduin Klein MD Unavailable Unavailable Eduin Klein MD Unavailable Unavailable Eduin Klein MD Unavailable Unavailable Eduin Klein MD Unavailable Unavailable Eduin Klein MD Unavailable Unavailable Eduin Klein MD Unavailable Unavailable Eduin Klein MD Unavailable Unavailable Eduin Klein MD Unavailable Unavailable Eduin Klein MD Unavailable Unavailable Eduin Klein MD Unavailable Unavailable Eduin Klein MD Unavailable Unavailable Eduin Klein MD Unavailable Unavailable Eduin Klein MD Unavailable Unavailable Eduin Klein MD Unavailable Unavailable Eduin Klein MD Unavailable Unavailable Eduin Klein MD Unavailable Unavailable Eduin Klein MD Unavailable Unavailable Eduin Klein MD Unavailable Unavailable Eduin Klein MD Unavailable Unavailable Eduin Klein MD Unavailable Unavailable Eduin Klein MD Unavailable Unavailable Eduin Klein MD Unavailable Unavailable Eduin Klein MD Unavailable Unavailable Eduin Klein MD Unavailable Unavailable Eduin Klein MD Unavailable Unavailable Eduin Klein MD Unavailable Unavailable Eduin Klein MD Unavailable Unavailable Eduin Klein MD Unavailable Unavailable Eduin Klein MD Unavailable Unavailable Eduin Klein MD Unavailable Unavailable Eduin Klein MD Unavailable Unavailable Eduin Klein MD Unavailable Unavailable Eduin Klein MD Unavailable Unavailable Eduin Klein MD Unavailable Unavailable Eduin Klein MD Unavailable Unavailable Eduin Klein MD Unavailable Unavailable Eduin Klein MD Unavailable Unavailable Eduin Klein MD Unavailable Unavailable Eduin Klein MD Unavailable Unavailable Eduin Klein MD Unavailable Unavailable Eduin Klein MD Unavailable Unavailable Eduin Klein MD Unavailable Unavailable Eduin Klein MD Unavailable Unavailable Eduin Klein MD Unavailable Unavailable Eduin Klein MD Unavailable Unavailable Lois SALGUERO MD Unavailable Unavailable Lois SALGUERO MD Unavailable Unavailable Lois SALGUERO MD Unavailable Unavailable Lois SALGUERO MD Unavailable Unavailable Lois SALGUERO MD Unavailable Unavailable Lois SALGUERO MD Unavailable Unavailable Lois SALGUERO MD Unavailable Unavailable Lois SALGUERO MD Unavailable Unavailable Lois SALGUERO MD Unavailable Unavailable Lois SALGUERO MD Unavailable Unavailable Lois SALGUERO MD Unavailable Unavailable NOEMY, L SANDRA MD Unavailable Unavailable NOEMY, L SANDRA MD Unavailable Unavailable NOEMY, L SANDRA MD Unavailable Unavailable NOEMY, L SANDRA MD Unavailable Unavailable NOEMY, L SANDRA MD Unavailable Unavailable NOEMY, L SANDRA MD Unavailable Unavailable NOEMY, L SANDRA MD Unavailable Unavailable NOEMY, L SANDRA MD Unavailable Unavailable NOEMY, L SANDRA MD Unavailable Unavailable NOEMY, L SANDRA MD Unavailable Unavailable NOEMY, L SANDRA MD Unavailable Unavailable NOEMY, L SANDRA MD Unavailable Unavailable Brian, B Jacob SUBCONTRACT MANAGER Unavailable Unavailable Brian, B Jacob SUBCONTRACT MANAGER Unavailable Unavailable Brian, B Jacob SUBCONTRACT MANAGER Unavailable Unavailable Brian, B Jacob SUBCONTRACT MANAGER Unavailable Unavailable Brian, B Jacob SUBCONTRACT MANAGER Unavailable Unavailable Brian, B Jacob SUBCONTRACT MANAGER Unavailable Unavailable Brian, B Jacob SUBCONTRACT MANAGER Unavailable Unavailable Brian, B Jacob SUBCONTRACT MANAGER Unavailable Unavailable Brian, B Jacob SUBCONTRACT MANAGER Unavailable Unavailable Re-disclosure Warning The records that [...] is protected by Article 27-F of the [facility] Public Health law. If you continue you may have access to information: Regarding HIV / AIDS; Provided by facilities licensed or operated by the [facility] Office of Mental Health; or Provided by the [facility] Office for People With Developmental Disabilities. If such information is present, then the following [facility] mandated warning applies: This information has [...] law may result in a fine or penitentiary sentence or both. A general authorization for the release of medical or other information is NOT sufficient authorization for further disc losure. Allergies and Adverse Reactions Type Description Substance Reaction Status Data Source(s ) [facility] Drug allergy LITHIUM LITHIUM [facility] CLASS PCN (penicillin) [facility] (penicillin) [facility] penicillin G Penicillin G [facility] Drug allergy diphenhydramine diphenhydramine [facility] Drug allergy chlorpromazine chlorpromazine Anaphylaxis SV [facility] Drug allergy paroxetine paroxetine [facility] Drug allergy ibuprofen Ibuprofen [facility] Drug allergy acetaminophen Acetaminophen [facility] Drug allergy lithium lithium [facility] Food allergy FISH FISH [facility] Family History Family Member Name Family Member Gender Family Member Status Date o f Status Description Data Source(s) Unknown Unknown Problem [facility] ([facility], ) Encounters Encounter Providers Location Date Indications Data Source(s ) Outpatient Attender: Lei Flowers/Shruthi/Elier avila 04/06/2020 09:45:00 AM EST [facility] Out[facility] Attender: Jacob GAONA ttender: CAL FOURNIERConsultant: RUFUS OTT MDConsultant: Guevara Ott MD 02/05/2020 02:36:00 PM EDT - 02/06/2020 12:23:00 PM EDT [facility] Patient discharged. Outpatient Attender: REBEKA MICHELEttender: SANDRA SALGUERO MDConsultant: RUFUS OTT MDConsultant: Guevara Ott MD 02/02/2020 07 :48:00 PM EDT - 02/03/2020 01:55:00 PM EDT [facility] Patient discharged. Emergency Attender: DENVER Berrysultant: Guevara Montanez 01/06/2020 07:17:00 PM EDT - 01/06/2020 09:07:00 PM EDT [facility] Patient admitted. Outpatient 11/10/2019 10:34:00 PM EDT thoracic surgery consult [facility] thoracic surgery consult Inpatient Attender: Jaylon Baird MD Admitter: Jaylon Baird MDConsultant: Hao Vallejo PAConsultant: Mina VERDE 0 11/10/2019 06:18:00 PM EDT - 11/13/2019 11:22:00 AM EDT B RIB FX, SYNCOPE [facility] B RIB FX, SYNCOPE Patient discharged. Emergency Attender: Eduin VERDE-CConsultant: Guevara horne MD 11/10/2019 10:48:00 AM EDT - 11/10/2019 05:03:00 PM EDT [facility] Patient discharged. Outpatient Attender: Gonzalez Rob MD 08/31/2019 01:55:01 PM EDT [facility] Outpatient 08/17/2019 02:57:00 PM EDT [facility] Outpatient Attender: Gonzalez Rob MD 08/07/2019 03:58:00 PM EDT [facility] Outpatient Attender: Gonzalez Rob MD 08/07/2019 10:05:00 AM EDT [facility] Outpatient 08/03/2019 02:34:00 PM EDT [facility] Outpatient 08/03/2019 02:33:00 PM EDT [facility] Outpatient 06/22/2019 01:59:00 PM EDT [facility] Outpatient 06/15/2019 03:17:00 PM EST [facility] Outpatient 05/28/2019 12:17:00 PM EST [facility] Emergency Attender: DENVER Leonardant: Guevara Montanez 05/14/2019 09:46:00 AM EST - 05/14/2019 01:19:00 PM [facility] Patient discharged. Outpatient 05/14/2019 06:06:00 AM EST [facility] Outpatient 05/07/2019 07:15:00 PM [facility] Emergency Attender: DENVER Berrysultant: Guevara Montanez 05/07/2019 06:37:00 PM EST - 05/07/2019 08:31:00 PM [facility] Patient discharged. Functional Status Medications Medication Brand Name Start Date Product Form Dose Route Admi nistrative Instructions Pharmacy Instructions Status Indications Reaction Description Data Source(s) Oxycodone Hydrochloride 5 MG Oral Tablet Oxycodone 11/13/2019 09 :35:20 AM EDT 5 MG active [facility] POLYETHYLENE GLYCOL 3350 142 MG/ML Oral Solution Polye thylene Glycol 3350 Polyethylene Glycol 3350 11/13/2019 09:32:00 AM EDT 17 GM active [facility] Digoxin 0.125 MG Oral Tablet Digoxin 11/11/2019 08:15:05 AM EDT 125 MCG active [facility] Hydroxyzine Hydrochloride 25 MG Oral Tablet Hydroxyzine Hcl Hydroxyzine Hcl 11/11/2019 08:15:05 AM EDT 25 MG active [facility] Acetaminophen 300 MG / Codeine Phosphate 30 MG Oral Tablet Acetaminophen-Codeine Acetaminophen-Codeine 11/10/2019 09:14:51 PM EDT 1 TAB completed [facility] Trazodone Hydrochloride 100 MG Oral Tablet Trazodone 11/09 06:45:57 PM EDT 100 MG active [facility] topiramate 50 MG Oral Tablet Topiramate Topiramate 11/10/2019 06: 45:57 PM EDT 50 MG active [facility] Acetaminophen 300 MG / Codeine Phosphate 30 MG Oral Tablet Acetaminophen-Codeine Acetaminophen-Codeine 11/10/2019 06:45:57 PM EDT 1 TAB active [facility] Albuterol Sulfate (Proair Hfa) 90 mcg/actuation Hfa Aerosol Inhaler 11/10/2019 06:45:57 PM EDT 2 PUFFS completed [facility] Albuterol Sulfate (Ventolin Hfa) 90 mcg/actuation HFA aeroso l inhaler 11/10/2019 06:45:57 PM EDT 2 PUFFS active [facility] Rosuvastatin calcium 5 MG Oral Tablet Rosuvastatin 11/10/2019 06:28 :55 PM EDT 5 MG active [facility] Esomeprazole 40 MG Delayed Release Oral Capsule Esomeprazole Magnesium (Nexium) 40 mg Capsule,Delayed Release(Dr/Ec) Esomeprazole Magnesium (Nexium) 40 mg Capsule,Delayed Release(Dr/Ec) 11/10/2019 06:28:55 PM EDT 40 MG active [facility] Ramipril 1.25 MG Oral Capsule Ramipril 11/10/2019 06:28:55 PM EDT 1.25 MG active [facility] gabapentin 300 MG Oral Capsule Gabapentin Gabapentin 2019 06:28:55 PM EDT 300 MG active [facility] Loratadine 10 MG Oral Tablet [Claritin] Loratadine (Cl aritin) 10 mg Tablet Loratadine (Claritin) 10 mg Tablet 11/10/2019 06:28:55 PM EDT 10 MG active [facility] Fluoxetine 10 MG Oral Capsule Fluoxetine 11/10/2019 06:28:55 PM EDT 10 MG active [facility] Cyclobenzaprine hydrochloride 10 MG Oral Tablet Cyclobenzapr ine 11/10/2019 06:28:55 PM EDT 10 MG active [facility] Fluticasone propionate 0.25 MG/ACTUAT / salmeterol 0.05 MG/ACTUAT Dry Powder Inhaler Fluticasone Propion-Salmeterol (Advair Diskus) 250-50 mcg/dose blister with device Fluticasone Propion-Salmeterol (Advair D iskus) 250-50 mcg/dose blister with device 11/10/2019 06:28:55 PM EDT 1 INH act [facility] apixaban 5 MG Oral Tablet Apixaban (Eliquis) 5 mg tabl et Apixaban (Eliquis) 5 mg tablet 11/10/2019 06:28:55 PM EDT 5 MG active [facility] Insulin Glargine Insulin Glargine (Basag lar Kwikpen U-100 Insulin) 100 unit/mL (3 mL) insulin pen Insulin Glargine (Basaglar Kwikpen U-100 Insulin) 100 unit/mL (3 mL) insulin pen 11/10/2019 06:28:55 PM EDT 20 UNIT a ctive [facility] Aspirin 81 MG Delayed Release Oral Tablet Aspirin 11/10/2019 0 6:28:55 PM EDT 81 MG active [facility] 24 HR Diltiazem Hydrochloride 240 MG Ext ended Release Oral Capsule Diltiazem Hcl (Dilt-Xr) 240 mg capsule,ext.rel 24h degradable Diltiazem Hcl (Dilt-Xr) 240 mg capsule,ext.rel 24h degradable 11/10/2019 06:28:55 PM EDT 240 MG active [facility] Levetiracetam 500 MG Oral Tablet Levetiracetam 11/10/2019 06:28:55 PM EDT 500 MG active [facility] glimepiride 2 MG Oral Tablet Glimepiride Glimepiride 020 06:28:55 PM EDT 4 MG active [facility] Levofloxacin 500 MG Oral Tablet Levofloxacin 09/16/2019 12:00:00 AM E DT ORAL active [facility] ([facility], ) Insurance Providers Payer name Policy type / Coverage type Policy ID Covered libertarian ID Covered libertarian's relationship to anand Policy Anand Plan Information EMEDNY [id number] SP [id number] MEDICARE [id number] SP [id number] MEDICARE C [id number] S [id number] MEDICAID M [id number] MEDICARE PART A -O/P [id number] 18 [id number] MEDICAID -O/P EMERGENCY ROOM [id number] MEDICAID -PHYSICIAN [id number] OTHER NO FAULT [id number] SP [id number] Medicaid S [id number] Medicare P [id number] MEDICAID [id number] SP [id number] MEDICAID [id number] SP [id number] MEDICARE PART A -O/P [id number] 18 [id number] MEDICARE [id number] SP [id number] MEDICAID [id number] SP [id number] Medicaid S [id number] Medicaid [place]ig[place] Part B [id number] Self [id number] [place] Primary [id number] Self [id number] MEDICARE C [id number] S [id number] MEDICARE [id number] SP [id number] MEDICAID [id number] SP [id number] [facility] C [id number] S [id number] Medicaid S [id number] S [id number] [place]IAN JE PART B C [id number] S [id number] MEDICARE PART B C [id number] S [id number] MEDICAID [id number] SP [id number] MEDICARE [id number] SP [id number] OTHER NO FAULT [id number] SP [id number] SELF PAY O UNAVAILABLE S [place] BLE MEDICAID UNAVAILABLE [place] BLE MCRB [id number] S [id number] MEDICARE [id number] S [id number] MEDICAID [id number] S [id number] MCRB [id number] S [id number] MEDICAID [id number] S [id number] MCRB [id number] S [id number] MEDICAID [id number] S [id number] MCRB [id number] S [id number] MCRB [id number] Problems, Conditions, and Diagnoses Code Display Name Description Problem Type Effective Dates Data Source(s) Z9119 Patient's noncompliance with other medic al treatment and regimen Patient's noncompliance with other medical treatment and regimen Diagnosis 02/05/2020 02:36:00 PM EDT [facility] I4891 Unspecified atrial fibrillation Unspecified atrial fib rillation Diagnosis 02/05/2020 02:36:00 PM EDT [facility] E878 Other disorders of electrolyte and fluid balance, not elsewhere classified Other disorders of electrolyte and fluid balance, not elsewhere classified Diagnosis 02/05/2020 02:36:00 PM EDT [facility] G20 Parkinson's disease Parkinson's disease Diagnosis 1 02:36:00 PM EDT [facility] R569 Unspecified convulsions Unspecified convulsions Diagno sis 02/05/2020 02:36:00 PM EDT [facility] E860 Dehydration Dehydration Diagnosis 02/05/2020 02:36:00 PM EDT [facility] Z794 nursing home (current) use of insulin nursing home (cu rrent) use of insulin Diagnosis 02/05/2020 02:36:00 PM EDT [facility] E119 Type 2 diabetes mellitus without complic ations Type 2 diabetes mellitus without complications Diagnosis 02/05/2020 02:36:00 PM EDT [facility] J449 Chronic obstructive pulmonary disease, u nspecified Chronic obstructive pulmonary disease, unspecified Diagnosis 02/05/2020 02:36:00 PM EDT [facility] [id number] Nicotine dependence, cigarettes, uncompl icated Nicotine dependence, cigarettes, uncomplicated Diagnosis 02/05/2020 02:36:00 PM EDT [facility] F1220 Cannabis dependence, uncomplicated Cannabis depe ndence, uncomplicated Diagnosis 02/05/2020 02:36:00 PM EDT [facility] R0789 Other chest pain Other chest pain Diagnosis 02/05/2020 02 :36:00 PM EDT [facility] F0390 Unspecified dementia without behavioral disturbance Unspecified dementia without behavioral disturbance Diagnosis 02/02/2020 07:48:00 PM EDT [facility] 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 Diagnosis 02/02/2020 07:48:00 PM EDT [facility] E50074 Unspecified place in unspeci fied non-institutional (private) residence as the place of occurrence of the external cause Unspecified place in unspecified non-institutional (private) residence as the place of occurrence of the external cause Diagnosis 01/06[facility]2020 07:[facility] [id number] Fall on same level from slip ping, tripping and stumbling without subsequent striking against object, initial encounter Fall on same level from slipping, tripping and stumbling without subsequent striking against object, initial encounter Diagnosis 01/06/2020 07:17:00 PM EDT [facility] Z7901 nursing home (current) use of anticoagulant s silk weaver (current) use of anticoagulants Diagnosis 01/06/2020 07:17:00 PM [facility] Z7982 nursing home (current) use of aspirin silk weaver (cu rrent) use of aspirin Diagnosis 01/06/2020 07:17:00 PM [facility] Z8673 Personal history of transien t ischemic attack (TIA), and cerebral infarction without residual deficits Personal history of transient ischemic attack (TIA), and cerebral infarction without residual deficits Diagnosis 01/06/2020 07:17:00 PM EDT [facility] I119 Hypertensive heart disease without heart failure Hypertensive heart disease without heart failure Diagnosis 01/06/2020 07:17:[address] [facility] E7800 Pure hypercholesterolemia, unspecified P ure hypercholesterolemia, unspecified Diagnosis 01/06/2020 07:17:00 PM [facility] [id number] Fracture of one rib, right side, initial encounter for closed fracture Fracture of one rib, right side, initial encounter for closed fracture Diagnosis 01/06/2020 07:17:00 PM [facility] [id number] Unspecified injury of thorax, initial en counter Unspecified injury of thorax, initial encounter Diagnosis 01/06/2020 07:17:00 PM EDT [facility] thoracic surgery consult thoracic surgery consult Diag nosis 11/10/2019 10:34:00 PM EDT [facility] [id number] Unspecified fall, initial encounter Unspecified fall, initial encounter Diagnosis 11/10/2019 10:48:00 AM EDT [facility] [id number] Multiple fractures of ribs, left side, initial encounter for closed fracture Multiple fractures of ribs, left side, i nitial encounter for closed fracture Diagnosis 11/10/2019 10:48:00 AM EDT [facility] [id number] Multiple fractures of ribs, right side, initial encounter for closed fracture Multiple fractures of ribs, right side, initial encounter for closed fracture Diagnosis 11/10/2019 10:48:00 AM [facility] R55 Syncope and collapse Syncope and collapse Diagnosis 11/10/2019 10:48:00 AM [facility] [id number] Personal history of nicotine dependence Personal history of nicotine dependence Diagnosis 05/14/2019 09:46:00 AM [facility] I10 Essential (primary) hypertension Essential (primary) h ypertension Diagnosis 05/14/2019 09:46:00 AM [facility] I252 Old myocardial infarction Old myocardial infarction Di agnosis 05/14/2019 09:46:00 AM [facility] E1165 Type 2 diabetes mellitus with hyperglyce henrik Type 2 diabetes mellitus with hyperglycemia Diagnosis 05/14/2019 09:46:00 AM [facility] R531 Weakness Weakness Diagnosis 05/14/2019 09:46:00 AM [facility] J440 Chronic obstructive pulmonar y disease with (acute) lower respiratory infection Chronic obstructive pulmonary disease wi th (acute) lower respiratory infection Diagnosis 05/07/2019 06:37:00 PM [facility] R0600 Dyspnea, unspecified Dyspnea, unspecified Diagnosis 05/07/2019 06:37:00 PM [facility] Surgeries/Procedures Procedure Description Date Indications Data Source(s) MRI Brain without contrast 11/11/2019 02:34:00 PM EDT [facility] Echocardiography (procedure) 11/11/2019 10:35:00 AM ED T [facility] Plain chest X-ray (procedure) 11/11/2019 10:30:00 AM E DT [facility] Ultrasound scan of carotid (procedure) 11/11/2019 10:0 5:00 AM EDT [facility] Plain chest X-ray (procedure) 11/10/2019 10:31:00 PM E [facility] Blood culture for bacteria, including anaerobic screen (proc edure) 05/07/2019 12:00:00 AM [facility] ID Date Data Source [id number] 02/09/2020 07:12:00 [place] [address] RESPIRATORY CARE REPORT ==== ---------NAME------- NUMBER SEX AGE ADMIT DISC. XRAY# [facility] [id number] 02/05/20 02/06/20 [id number] MB4 O/P DATE OF : 1955 M/R# [id number] #: [id number] CCU4 LOCATION: EMERGENCY DEPT EKG 16932 COMPL ETE:02/05/20 16:12 [facility] [address] PHYSICIAN: BRIAN Zambrano Name Value Range Interpretation Code Description Data Raquel rce(s) Supporting Document(s) ID Date Data Source [id number] 02/08/2020 05:34:00 [place] [address] PHONE: [phone] FAX: [phone] Name .................. : DIMA Garcia Acct Number.................. : [id number] ROOM. ................. : CCU4 MR Number ................... : [id number] Stay type ............. : O/P Discharge Date......... ... : Admit Date ......... : 02/05/20 Admit Phys .................... : BRIAN MAT Date of ....... : 1955 Family Phys ................... : TRU WATERMAN Phone .................. : [phone] Age ................................ : 65 Film# .................. .:[id number] Sex ................................. : M Unsigned transcriptions are preliminary reports and do not represent a medical or legal document CT HEAD W/O CONTRAST 63110 COMPLETE:02/05/20 20:51 RLB 50092 (REASON FOR PROCEDURE :ALTERED MENTAL STATUS CT [...] By Wenceslao Hudson M.D. , 02/08/20 17:34, [place] Transcribe Initials: DZ , Transcribe Date: 02/05/20 21:35, Dictation Date: Copy for: EMERGENCY DEPT via modem Copy for: [address] 2 [place] [address] PHONE: [phone] FAX: [phone] Name .................. : DIMA Garcia Acct Number.................. : [id number] ROOM. ................. : CCU4 MR Number ................... : [id number] Stay type ............. : O/P Discharge Date......... ... : Admit Date ......... : 02/05/20 Admit Phys .................... : BRIAN RUDOLPH Date of ....... : 1955 Family Phys ................... : TRU WATERMAN Phone .................. : [phone] Age ................................ : 65 Film# .................. .:[id number] Sex ................................. : M Unsigned transcriptions are preliminary reports and do not represent a medical or legal document CT HEAD W/O CONTRAST 20448 COMPLETE:02/05/20 20:51 RLB 98076 (REASON FOR PROCEDURE :ALTERED MENTAL STATUS DISCHARGED Page 2 of 2 Name Value Range Interpretation Code Description Data Raquel rce(s) Supporting Document(s) ID Date Data Source [id number] 02/08/2020 04:23:00 PM EDT [facility] [address] [place] [address] PHONE: [phone] FAX: [phone] Name .................. : DIMA Garcia Acct Number.................. : [id number] ROOM. ................. : CCU4 MR Number ................... : [id number] Stay type ............. : O/P Discharge Date......... ... : Admit Date ......... : 02/05/20 Admit Phys .................... : BRIAN MAT Date of ....... : 1955 Family Phys ................... : TRU WATERMAN Phone .................. : [phone] Age ................................ : 65 Film# .................. .:[id number] Sex ................................. : M Unsigned transcriptions are preliminary reports and do not represent a medical or legal document CHEST PORTABLE 11787 COMPLETE:02/05/20 15:41 CARLOS [address] [place] son(s): COPD PORTABLE CHEST X-RAY: COMPARISON: 02/02/20 FINDINGS: COPD changes are noted. Pneumonic infiltrate or pulmonic mass is not seen. The heart is not enlarged. There is no pneumothorax or pleural effusion. There is no osseous abnormality. IMPRESSION: COPD. No acute pathology. Electronically Reviewed and Signed By Kelvin Antonio MD , 02/08/20 16:23, [facility] Transcribe Initials: DZ , Transcribe Date: 02/06/20 02:19, Dictation Date: Copy for: SHANTANU Zambrano Copy for: EMERGENCY DEPT via modem Copy for: 710 MED REC DISCHARGED Page 1 of 1 Name Value Range Interpretation Code Description Data Raquel rce(s) Supporting Document(s) ID Date Data Source [id number] 02/02/2020 07:48:00 PM EDT [facility] 1 OrderSheet [facility] Emergency Department [address] [place] [address] Phone #: ext- [phone] 02/02/2020 19:46 Patient: DONNY FAITH Sex: M : 1955 Age: 65yWEIGHT:66.7 kg (M) HEIGHT:68 inches (S) BMI:22.4ALLERGIES: Benadryl, [place], Motrin, Paxil, Penicillins, ThorazineCHIEF COMPLAINT: chest painDIAGNOSIS: Chest painLAB ORDERSOrder Description Priority Entered Acknowledged InitialedCBC w Diff STAT 20:15 02/02/2020 20:16 Snadra Sandoval MD; Zack RNCMP STAT 20:15 02/02/2020 20:16 Sandra Sandoval MD; Zack RNTroponin-T STAT 20:15 02/02/2020 20:16 Sandra Sandoval MD; Zack RNMagnesium STAT 20:15 02/02/2020 20:16 Sandra Sandoval MD; Zack RNBNP STAT 20:15 02/02/2020 20:16 Sandra Sandoval MD; Zack RNLipase STAT 20:16 02/02/2020 20:16 Sandra Sandoval MD; Zack RNUrinalysis (Clean STAT 21:51 02/02/2020 21:53 Srinivas Nazario) Sandra Salguero MD; Stephanie R.NPadmaDIAGNOSTIC STUDY ORDERSOrder Description Priority Entered Acknowledged InitialedChest Portable 1 STAT 20:15 02/02/2020 20:21 [place] Sandra Salguero MD; 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, Rk ER(Oxygen?(No)) Tech1 Reason for Study: Chest PainMEDICATION/IV/DRIP/FLUID ORDERSOrder Description Priority Entered Acknowledged InitialedMorphine IVP 4 mg 21:12 02/02/2020 21:19 Aravind,(NOW x1, HIGH Sandra Salguero MD; Stephanie R.N.ALERTMEDICATION)IV NS : Bolus 250 STAT 21:25 02/02/2020 21:47 Aravind,mL, then 250 mL/hr Sandra Salguero MD; Stephanie R.N.(NOW x1) 2 OrderSheet [facility] Emergency Department [address] [place] [address] Phone #: ext- [phone] 02/02/2020 19:46 Patient: DONNY FAITH Sex: M : 1955 Age: 65yInsulin Reg IVP 10 21:25 02/02/2020 21:44 Aravind,units (NOW x1, Sandra Salguero MD; Stephanie R.NPadmaHIGH ALERTMEDICATION)GENERAL ORDERSOrder Description Priority Entered Acknowledged InitialedEKG 20:15 02/02/2020 20:18 Noemy Nazario Norma MD; Stephanie R.N.Accucheck 21:58 02/02/2020 22:06 Noemy Nazario Norma MD; Stephanie R.N.[Electronically signed by Ezequiel Flores RN (23:11 02/02/2020)][Electronically signed by Sandra Salguero MD (19:24 02/06/2020)][Electronically locked by Ezequiel Flores RN (23:11 02/02/2020)] Name Value Range Interpretation Code Description Data Raquel rce(s) Supporting Document(s) ID Date Data Source [id number] 02/02/2020 07:48:00 PM EDT [facility] 1 Medication Reconciliation Report [facility] Emergency Department [address] [place] [address] Phone #: ext- [phone] 02/02/2020 19:46 Patient: DONNY FAITH Sex: M : 1955 Age: 65yWeight: 66.7 kgHeight/Length: 68 in.BMI: 22.4ALLERGIES: Benadryl, [place], Motrin, Paxil, Penicillins, ThorazineThe patient's Home Medications are listed below:CONTINUE TAKING THE FOLLOWING MEDICATIONS: Advair Diskus Inhalation (500-50 mcg/dose) 1 inhalation, 2x a day Advocate Insulin Pen [place] Aspir-81 Oral (81 mg) 1 tablet, daily Basaglar 20 unita, at bedtime [facility] Claritin Oral (5 mg) 1 tablet, [...] 2x a day 2 Medication Reconciliation Report [facility] Emergency Department [address] [place] [address] Phone #: ext- [phone] 02/02/2020 19:46 Patient: [...] rce(s) Supporting Document(s) ID Date Data Source [id number] 02/02/2020 07:48:00 PM EDT [facility] 1 Medication Administration Record [facility] Emergency Department [address] [place] [address] Phone #: ext- [phone] 02/02/2020 19:46 Patient: DONNY FAITH Sex: M : 1955 Age: 65yWeight: 66.7 kgHeight/Length: 68 inBMI: 22.4ALLERGIES: Benadryl, [place], Motrin, Paxil, Penicillins, Thorazine Date/Time Medication Administered Medication OrderedGiven MORPHINE [IVP] Morphine IVP 4 mg (NOW x1, HIGH21:19 02/02/2020 Dose: 4 mg IVP ALERT MEDICATION)Stephanie Nazario R.N. Site: #1 left forearmStart IV NS IV NS : Bolus 250 mL, then 84674:47 02/02/2020 Dose: IV Fluids mL/hr (NOW x1); StatStephanie Nazario R.N. Rate: 250 mL/hr---- Bolus: 250 mL over 30 minute(s)Continued Upon Disposition Dispensed: 500 mL bag22:48 02/02/2020 Site: #1 left forearmStroly Flores RNGiven INSULIN REG [IVP] Insulin Reg IVP 10 units (NOW x1,21:44 02/02/2020 Dose: 10 unit IVP HIGH ALERT MEDICATION)Stephanie Nazario R.N. Site: #1 left forearm Name Value Range Interpretation Code Description Data Raquel rce(s) Supporting Document(s) ID Date Data Source [id number] 02/02/2020 07:48:00 PM EDT [facility] 1 General Instructions [facility] Emergency Department [address] [place] [address] Phone #: rcv- [phone] 02/02/2020 19:46 Patient: DONNY FAITH Sex: M : 1955 Age: 65yChest pain characterized as "pressure".INSTRUCTIONSYour Current Medications: Your current home medications have been reviewed.CONTINUE TAKING THE FOLLOWING MEDICATIONS:Advair Diskus Inhalation : Aerosol Powder Breath Activated 500-50 mcg/dose, 1 inhalation 2x a day.Advocate Insulin Pen [place]*.Aspir-81 Oral : Tablet Delayed Release 81 mg, 1 tablet daily.Basaglar* : 20 unita, at bedtime.[facility]* : [place].Claritin Oral : Tablet Chewable 5 mg, 1 [...] instructions verbalized by patient. 2 General Instructions [facility] Emergency Department [address] [place] [address] Phone #: ext- [phone] 02/02/2020 19:46 Patient: DONNY FAITH Sex: M : 1955 Age: 65y(Electronically signed by Sandra Salguero MD 02/06/2020 19:24) Name Value Range Interpretation Code Description Data Raquel rce(s) Supporting Document(s) ID Date Data Source [id number] 02/02/2020 07:48:00 PM EDT [facility] 1 Clinical Report - Nurses [facility] Emergency Department [address] [place] [address] Phone #: ext- [phone] 02/02/2020 19:46 Patient: [...] green sputum. He has had wheezing. 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 SEPSIS SCREEN: SIRS Screen negative: heart rate greater than 90. Sepsis Screen negative. No suspected or confirmed signs of infection present. ISSA COMA SCORE: 15- eyes open- spontaneous (4); [...] inhalation, 2x a day. Advocate Insulin Pen [place] . Aspir-81 Oral (Tablet Delayed Release 81 mg) 1 tablet, daily. Basaglar 20 unita, at bedtime. --19:54 02/02/20 Stephanie Nazario R.N. [facility] [place]. Claritin Oral (Tablet Chewable 5 mg) 1 [...] a day. 2 Clinical Report - Nurses [facility] Emergency Department [address] [place] [address] Phone #: ext- [phone] 02/02/2020 19:46 Patient: [...] on day 3. --19:54 02/02/20 Stephanie Nazario R.N.AllergiesBenadryl.[place].Motrin.Paxil.Penicillins.Thorazine. --19:54 02/02/20 Stephanie Nazario R.N.HistoryPAST MEDICAL HX: [...] 63 years. 3 Clinical Report - Nurses [facility] Emergency Department [address] [place] [address] Phone #: ext- [phone] 02/02/2020 19:46 Patient: [...] the left forearm with an 18g angiocath. --20:02/02/20 Stephanie Nazario R.N. Monitoring of patient in [...] 10 mL normal saline post blood draw. --20:26 02/02/20 Lloyd Dixon RN 21:02/02/2020 Morphine IVP 4 mg given over 3 minute(s) via site #1. Allergies verified and confirmed 5 rights. IV patency established. IV site checked: no pain, redness, or swelling. IV flushed thoroughly pre- and post-medication administration. IVP given by RN. Information reviewed with patient including reason for taking this medication and sedative warning. Verbalizes understanding (diluted in 10 cc NS). --21:02/02/20 Stephanie Nazario R.N. Critical value relayed by Jossy. Critical value received by Marty. Serum glucose: 446. Critical value read back. Verified lab result. ED physician notifed of critical value. --21:25 02/02/20 Ezequiel Flores RN 21:44 02/02/2020 Insulin REG IVP 10 unit given over 3 minute(s) via site #1. Allergies verified and confirmed 5 rights. IV patency established. IV site checked: no pain, redness, or swelling. IV flushed 4 Clinical Report - Nurses [facility] Emergency Department [address] [place] [address] Phone #: ext- [phone] 02/02/2020 19:46 Patient: DONNY FAITH Sex: M : 1955 Age: 65y thoroughly pre- and post-medication administration. IVP given by RN. Information reviewed with patient including reason for taking this medication. Verbalizes understanding. --21:44 02/02/20 Stephanie Nazario RMolly. 21:47 02/02/2020 Started bag #1 500 mL [...] this medication. Verbalizes understanding. --21:47 02/02/20 Stephanie Nazario, R.N. Finger stick glucose: 267; performed by [...] rce(s) Supporting Document(s) ID Date Data Source [id number] 02/02/2020 07:48:00 PM EDT [facility] 1 Clinical Report - Physicians/Mid Levels [facility] Emergency Department [address] [place] [address] Phone #: ext- [phone] 02/02/2020 19:46 Patient: [...] Surgeries: Appendectomy. 2 Clinical Report - Physicians/Mid Levels [facility] Emergency Department [address] [place] [address] Phone #: ext- [phone] 02/02/2020 19:46 Patient: DONNY FAITH Sex: M : 1955 Age: 65y Cholecystectomy. Medications: [facility]. Claritin Oral (Tablet Chewable 5 mg) [...] inhalation, 2x a day. Advocate Insulin Pen [place]. Aspir-81 Oral (Tablet Delayed Release 81 mg) 1 tablet, daily. Basaglar 20 unita, at bedtime. Allergies: Benadryl. [place]. Motrin. Paxil. Penicillins. Thorazine.SOCIAL HISTORYNo drug use.ADDITIONAL NOTESThe nursing notes have been reviewed.PHYSICAL EXAMVital Signs: 02/02/2020 22:48 BP: lying 134/72. MAP: 92. HR: 78. RR: 23. O2 saturation: 97% on roomair. Temp: 97.3 F. Pain level now: 09/22. 3 Clinical Report - Physicians/Mid Levels [facility] Emergency Department [address] [place] [address] Phone #: ext- [phone] 02/02/2020 19:46 Patient: DONNY FAITH Sex: M : 1955 Age: 65y1 21:51 BP: 132/63. MAP: 86. HR: 97. RR: 22. O2 saturation: 99%. Pain level now: 6/10.02/02/2020 19:48 BP: 143/65. MAP: 91. HR: 106. [...] AND EKGLaboratory Tests:Urinalysis: (ROSARIO: 02/02/2020 21:08) ( MsgRcvd 02/02/2020 22:01) Final results Test Result Flag [...] 1 (NORMAL: NONELipase: (ROSARIO: 02/02/2020 20:20) ( MsgRcvd 02/02/2020 21:24) Final results Test Result Flag Units (Reference) LIPASE 58 U/L (13 - 60)CBC w Diff: (ROSARIO: 02/02/2020 20:20) ( MsgRcvd 02/02/2020 20:33) Final results Test Result Flag Units (Reference) CBC W/AUTOMATED DIFF COMPLETE BLOOD COUNT WBC 10.5 10/uL (4.2 - 11.0) RBC 4.57 10/uL (4.50 - 6.30) 4 Clinical Report - Physicians/Mid Levels [facility] Emergency Department [address] [place] [address] Phone #: ext- [phone] 02/02/2020 19:46 Patient: [...] Male GFR Interprentation 20-49 yrs >60 mL/min [id number] yrs >56 mL/min Normal 60-69 yrs >49 mL/min Normal 70-79yrs>42 mL/min Normal 80 and above >35 mL/min Normal Female GFRInterpretation 20-39 yrs >60 mL/min Normal 40-49 yrs >58 mL/minNormal 50-59 yrs >51 mL/min Normal 60-69 yrs >45 mL/min Cvxzpp70-24 yrs >39 mL/min Normal 80 and above >32 mL/min Normal 5 Clinical Report - Physicians/Mid Levels [facility] Emergency Department [address] [place] [address] Phone #: ext- [phone] 02/02/2020 19:46 Patient: [...] O2? Oxygen?(No) Room: ED Exam CHEST PORTABLE [facility] [address] [place] [address] PHONE: [phone] FAX: [phone] Name .................. : DIMA Garcia Acct Number.................. : [id number] ROOM. ................. : TR-06 MR Number ................... : [id number] Stay type ............. : E/R Discharge Date......... ... : Admit Date ......... : 02/02/20 Admit Phys .................... : COONEYNORM Date of ....... : 1955 Family Phys ................... : TRU ANDINOTarik Phone .................. : [phone] Age ................................ : 65 Film# .................. .:[id number] Sex .................. ............... : M Unsigned transcriptions are preliminary reports and do not represent a medical or legal document CHEST PORTABLE [id number] COMPLETE:02/02/20 21:13 RLB 68980 Reason(s): Chest Pain PORTABLE CHEST X-RAY: INDICATION: Chest pain. COMPARISON: 05/14/19 FINDINGS: The cardiac and mediastinal silhouettes appear normal and the lungs are clear. The bones and soft tissues are normal. The upper abdomen is unremarkable. IMPRESSION: No acute disease identifiable. Electronically Reviewed and Signed By 6 Clinical Report - Physicians/Mid Levels [facility] Emergency Department [address] [place] [address] Phone #: ext- [phone] 02/02/2020 19:46 Patient: DONNY FAITH Sex: M : 1955 Age: 65y DCTNAME , SIGNDATE, ARLIN Transcribe Initials: CHELLY , Transcribe Date: 02/02/20 [...] inhalation 2x a day. Advocate Insulin Pen [place]*. Aspir-81 Oral : Tablet Delayed Release 81 mg, 1 tablet daily. Basaglar* : 20 unita, at bedtime. [facility]* : [place]. Claritin Oral : Tablet Chewable 5 mg, [...] day. 7 Clinical Report - Physicians/Mid Levels [facility] Emergency Department [address] [place] [address] Phone #: ext- [phone] 02/02/2020 19:46 Patient: [...] rce(s) Supporting Document(s) ID Date Data Source [id number] 02/02/2020 07:48:00 PM EDT [facility] Addenda for DONNY FAITH VisitID: [id number] Date: 22:32Faxed Medication reconciliation request to [employer].(Electronically signed by Amos Dixon - 02/02/2020 22:32) Name Value Range Interpretation Code Description Data Raquel rce(s) Supporting Document(s) ID Date Data Source [id number] 02/06/2020 07:13:00 AM EDT [facility] Name Value Range Interpretation Code Description Data Raquel rce(s) Supporting Document(s) Phosphate [Mass/volume] in Serum or Plasma 3.9 MG/DL 2.5 - 4.5 [facility] ID Date Data Source [id number] 02/06/2020 07:13:00 AM EDT [facility] Name Value Range Interpretation Code Description Data Raquel rce(s) Supporting Document(s) Magnesium [Mass/volume] in Serum or Plasma 1.8 MG/DL 1.7 - 2.2 [facility] ID Date Data Source [id number] 02/06/2020 07:12:00 AM EDT [facility] Name Value Range Interpretation Code Description Data Raquel rce(s) Supporting Document(s) COMPREHENSIVE METABOLIC PANEL [facility] COMPREHENSIVE METABOLIC PANEL Sodium [Moles/volume] in Serum or Plasma 138 mEq/L 134 - 153 [facility] Potassium [Moles/volume] in Serum or Plasma 3.9 mEq/L 3.6 - 5.0 [facility] Chloride [Moles/volume] in Serum or Plasma 105 mEq/L 98 - 107 [facility] Carbon dioxide, total [Moles/volume] in Serum or Plasma 25 MEQ/L 22 - 30 [facility] Glucose [Mass/volume] in Serum or Plasma 240 MG/DL 65 - 110 H [facility] BUN 9 MG/DL 7 - [facility] Creatinine [Mass/volume] in Serum or Plasma 0.5 MG/DL 0.7 - 1.5 L [facility] BUN/CREAT 18 8 - 27 [facility] Protein [Mass/volume] in Serum or Plasma 6.1 G/DL 6.3 - 8.2 L [facility] Albumin [Mass/volume] in Serum or Plasma 3.7 G/DL 3.9 - 5.0 L [facility] Globulin [Mass/volume] in Serum by calculation 2.4 GM/DL 2.4 - 3.2 [facility] A/G RATIO 1.5 0.8 - 2.0 [facility] al Calcium [Mass/volume] in Serum or Plasma 9.1 MG/DL 8.4 - 10.2 [facility] Bilirubin.total [Mass/volume] in Serum or Plasma <0.7 MG/DL 0.2 - 1.3 [facility] Alkaline phosphatase [Enzymatic activity/volume] in Serum or Plasma 61 U/L 38 - 126 [facility] Aspartate aminotransferase [Enzymatic activity/volume] in Serum or Plasma 15 U/L 5 - 40 [facility] Alanine aminotransferase [Enzymatic activity/volume] in Seru m or Plasma 17 U/L 7 - 56 [facility] Anion gap 3 in Serum or Plasma 8.0 mmol/L 8.0 - 16.0 [facility]GE 65 [facility] GFR >60 mL/min [facility] ital AFR AMER GFR >60 mL/min [facility] Ho spital Male GFR In terprentation 20-49 [...] >32 mL/min Normal ID Date Data Source [id number] 02/06/2020 07:09:00 AM EDT [facility] Name Value Range Interpretation Code Description Data Raquel rce(s) Supporting Document(s) TROPONIN T <0.01 NG/ML 0.00 - 0.10 [facility] ospital TROPONIN T0.1 ng/ml Recommended as the c linical threshold value forTroponin T. ID Date Data Source [id number] 02/06/2020 07:09:00 AM EDT [facility] Name Value Range Interpretation Code Description Data Raquel rce(s) Supporting Document(s) Prothrombin time (PT) 13.5 SECONDS 11.0 - 15.5 [facility] INR in Platelet poor plasma by Coagulation assay 1.02 0.93 - 1. 23 [facility] \\BLDo\\INR INTERPRETATION\\BLDx\\ Therapeutic range for Coumadin and related oral anticoagulants. - International Normalized Ratio (INR): 2.0 - 3.0 for Venous Thrombosis, Pulmonary Embolus, Tissue heart valves, Acute MN, Atrial Fibrillation, Valvular heart disease and recurrent Systemic Embolism. -International Normalized Ratio (INR): 2.5 - 3.5 for Mechanical Prosthetic valve. ID Date Data Source [id number] 02/06/2020 06:47:00 AM EDT [facility] Name Value Range Interpretation Code Description Data Raquel rce(s) Supporting Document(s) CBC W/AUTOMATED DIFF [facility] COMPLETE BLOOD COUNT Leukocytes [#/volume] in Blood by Automated count 5.9 10^3/uL 4.2 - 1 1.0 [facility] Erythrocytes [#/volume] in Blood by Automated count 4.09 10^6/uL 4. 50 - 6.30 L [facility] Hemoglobin [Mass/volume] in Blood 12.4 g/dL 14.0 - 16.0 L [facility] Hematocrit [Volume Fraction] of Blood by Automated count 35.8 % 4 1.0 - 51.0 L [facility] Erythrocyte mean corpuscular volume [Entitic volume] by Auto mated count 87.5 fL 80.0 - 94.0 [facility] Erythrocyte mean corpuscular hemoglobin [Entitic mass] by Automated count 30.3 pg 27.0 - 34.0 [facility] Erythrocyte mean corpuscular hemoglobin concentration [Mass/volume] by Automated count 34.6 g/dL 31.0 - 36.0 [facility] Erythrocyte distribution width [Ratio] by Automated count 13.3 % 11.5 - 14.8 [facility] Platelets [#/volume] in Blood by Automated count 237 10^3/uL 150 - 45 0 [facility] Platelet mean volume [Entitic volume] in Blood by Automated count 9.6 fL 7.4 - 10.4 [facility] Neutrophils/100 leukocytes in Blood by Automated count 42.8 % 37. 0 - 80.0 [facility] Lymphocytes/100 leukocytes in Blood by Manual count 43.3 % 25.0 - 40.0 H [facility] Monocytes/100 leukocytes in Blood by Automated count 7.8 % 3.0 - 8.0 [facility] Eosinophils/100 leukocytes in Blood by Automated count 5.1 % 0.0 - 7.0 [facility] Basophils/100 leukocytes in Blood by Automated count 0.7 % 0.0 - 2.0 [facility] %IG 0.3 % 0.0 - 0.0 H [facility] al %NRBC 0.0 % 0.0 - 0.0 [facility] al Neutrophils [#/volume] in Blood by Automated count 2.52 10^3/uL 2.00 - 6.90 [facility] Lymphocytes [#/volume] in Blood by Automated count 2.55 10^3/uL 0.60 - 3.40 [facility] Monocytes [#/volume] in Blood by Automated count 0.46 10^3/uL 0.00 - 0.90 [facility] Eosinophils [#/volume] in Blood by Automated count 0.30 10^3/uL 0.00 - 0.70 [facility] Basophils [#/volume] in Blood by Automated count 0.04 10^3/uL 0.00 - 0.20 [facility] #IG 0.02 10^3/uL 0.00 - 0.10 [facility] ospital #NRBC 0.00 10^3/uL 0.00 - 0.00 [facility] MANUAL DIFF NOT INDICATED [facility] RBC MORPH NOT INDICATED [facility] spital ID Date Data Source [id number] 02/05/2020 08:55:00 PM EDT [facility] Name Value Range Interpretation Code Description Data Raquel rce(s) Supporting Document(s) TROPONIN T <0.01 NG/ML 0.00 - 0.10 [facility]ital TROPONIN T0.1 ng/ml Recommended as the c linical threshold value forTroponin T. ID Date Data Source [id number] 02/05/2020 02:36:00 PM EDT [facility] 1 OrderSheet [facility] Emergency Department [address] [place] [address] Phone #: [phone]- [phone] 02/05/2020 14:42 Patient: DONNY FAITH Sex: M : 1955 Age: 65yWEIGHT:65.7 kg (S) HEIGHT:68 inches (S) BMI:22.0ALLERGIES: Benadryl, [place], Motrin, Paxil, Penicillins, ThorazineCHIEF COMPLAINT: dyspnea, COPD, chest painDIAGNOSIS: Chest pain, HyperglycemiaLAB ORDERSOrder Description Priority Entered Acknowledged InitialedUrinalysis (Clean STAT 15:07 02/05/2020 15:07 Norberto Cunningham) Elida Cunningham R.N.; R.N. Verbal order per; Cal FournierTrdevaughnnin-T STAT 15:10 02/05/2020 15:11 Elida Cunningham Jack ; R.N.CBC w Diff STAT 15:10 02/05/2020 15:11 Elida Cunningham Jack ; R.N.BMP STAT 15:10 02/05/2020 15:11 Elida Cunningham Jack ; R.N.Urinalysis (Clean STAT 15:15 02/05/2020 Cancelled: Duplicate Order 15:15 Jenelle Fournier Jack ; JackDIAGNOSTIC STUDY ORDERSOrder Description Priority Entered Acknowledged InitialedChest Portable 1 STAT 15:15 02/05/2020 15:17 Cal Morrissey RN(Oxygen?(No)) Reason for Study: COPDMEDICATION/IV/DRIP/FLUID ORDERSOrder Description Priority Entered Acknowledged InitialedIV NS : 1000 mL/hr 15:15 02/05/2020 15:28 Cal Mei ; Lori ROSENBERGInsulin Reg Subcut 16:19 02/05/2020 16:44 Brian Cunningham units (NOW x1, Shantanu, Isael ck ; R.N.HIGH ALERTMEDICATION)GENERAL ORDERSOrder Description Priority Entered Acknowledged Initialed 2 OrderSheet [facility] Emergency Department [address] [place] [address] Phone #: ext- [phone] 02/05/2020 14:42 Patient: DONNY FAITH Sex: M : 1955 Age: 65yEKG 15:10 02/05/2020 15:11 [place] Cal Mcknight ; Ivon De Souza [id number] - 16:46 02/05/2020 16:51 Gladys Cunningham Jack ; R.N.[Electronically signed by Cal Fournier (18:05 02/05/2020)][Electronically signed by Quoc Sandoval RN (18:48 02/05/2020)][Electronically locked by Quoc Sandoval RN (18:48 02/05/2020)] Name Value Range Interpretation Code Description Data Raquel rce(s) Supporting Document(s) ID Date Data Source [id number] 02/05/2020 02:36:00 PM EDT [facility] 1 Medication Reconciliation Report [facility] Emergency Department [address] [place] [address] Phone #: ext- [phone] 02/05/2020 14:42 Patient: DONNY FAITH Sex: M : 1955 Age: 65yWeight: 65.7 kgHeight/Length: 68 in.BMI: 22.0ALLERGIES: Benadryl, [place], Motrin, Paxil, Penicillins, ThorazineThe patient's Home Medications are listed below:THE FOLLOWING MEDICATIONS NEED TO BE RECONCILED: Advair Diskus Inhalation (500-50 mcg/dose) 1 inhalation, 2x a day Advocate Insulin Pen [place] Aspir-81 Oral (81 mg) 1 tablet, daily Basaglar 20 unita, at bedtime [facility] Claritin Oral (5 mg) 1 tablet, [...] 2x a day 2 Medication Reconciliation Report [facility] Emergency Department [address] [place] [address] Phone #: ext- [phone] 02/05/2020 14:42 Patient: [...] rce(s) Supporting Document(s) ID Date Data Source [id number] 02/05/2020 02:36:00 PM EDT [facility] 1 Medication Administration Record [facility] Emergency Department [address] [place] [address] Phone #: ext- [phone] 02/05/2020 14:42 Patient: DONNY FAITH Sex: M : 1955 Age: 65yWeight: 65.7 kgHeight/Length: 68 inBMI: 22ALLERGIES: Benadryl, [place], Motrin, Paxil, Penicillins, Thorazine Date/Time Medication Administered Medication OrderedStart IV NS IV NS : 1000 mL/hr15:28 02/05/2020 Dose: IV FluidsQuoc Sandoval RN Rate: 1000 mL/hr over 1 hour(s)---- Dispensed: 1000 mL bagStop Site: #1 right tbzsjdi02:30 02/05/2020Quoc Sandoval RNGiven INSULIN REG [SUBCUTANEOUS] Insulin Reg Subcut 10 units (NOW16:44 02/05/2020 Dose: 10 unit Subcutaneous x1, HIGH ALERT MEDICATION)Elida Cunningham R.N. Name Value Range Interpretation Code Description Data Raquel sims(s) Supporting Document(s) ID Date Data Source [id number] 02/05/2020 02:36:00 PM EDT [facility] 1 General Instructions [facility] Emergency Department [address] [place] [address] Phone #: ext- [phone] 02/05/2020 14:42 Patient: DONNY FAITH Sex: M : 1955 Age: 65yChest pain characterized as "discomfort".Moderate hyperglycemia.(Electronically signed by Cal Fournier, 02/05/2020 18:05) Name Value Range Interpretation Code Description Data Raquel rce(s) Supporting Document(s) ID Date Data Source [id number] 02/05/2020 02:36:00 PM EDT [facility] 1 Clinical Report - Nurses [facility] Emergency Department [address] [place] [address] Phone #: ext- [phone] 02/05/2020 14:42 Patient: [...] inhalation, 2x a day. Advocate Insulin Pen [place]. Aspir-81 Oral (Tablet Delayed Release 81 mg) 1 tablet, daily. Basaglar 20 unita, at bedtime. [facility]. Claritin Oral (Tablet Chewable 5 mg) [...] at bedtime. 2 Clinical Report - Nurses [facility] Emergency Department [address] [place] [address] Phone #: ext- [phone] 02/05/2020 14:42 Patient: DONNY FAITH Sex: M : 1955 Age: 65yTylenol with Codeine #3 Oral, 2x a day.Ventolin HFA Inhalation 2 puffs, q8h as needed, sob.Z pack 1 tab day pt on day 3. --14:43 02/05/20 Best Hobbs R.N.AllergiesBenadryl.[place].Motrin.Paxil.Penicillins. --14:43 02/05/20 Best Hobbs R.N.Thorazine. --14:43 02/05/20 [...] Artery Disease. --15:28 02/05/20 Cal FournierMother: Diabetes. --15:28 02/05/20 Cal Fournier. 3 Clinical Report - Nurses [facility] Emergency Department [address] [place] [address] Phone #: ext- [phone] 02/05/2020 14:42 Patient: DONNY FAITH Sex: M : 1955 Age: 65yPHYSICAL [id number]:03 02/05/20. To room via stretcher.GENERAL / NEURO / PSYCH: Alert. Oriented X 4.HEENT: No facial asymmetry noted. Mucous membranes are pink.RESPIRATORY: Respirations not labored. Chest nontender. Breath sounds within normal limits.CVS: Capillary refill less than 2 seconds. Pulses within normal limits.GI / : Abdomen soft and nontender.SKIN: Skin is pale. Skin is dry. --15:03 02/05/20 Quoc Sadnoval RN.NURSING PROGRESS NOTESSide rails up x 2. Bed placed in lowest position. Brakes of bed on. --14:49 02/05/20 Best Hobbs R.N. 14:40 02/05/20. Finger stick glucose: 347; performed by nurse; result shown to the ED physician. --15:00 02/05/20 Elida Cunningham R.N. late entry - 14:40 02/05/20. environmental monitoring technician and NIBP monitor placed on patient; monitor [...] x-ray completed. Shown to the ED physician ([id number]). --15:30 02/05/20 Quoc Sandoval RN 15:58 02/05/20. BP: 141/84. MAP: 103. HR: 89. RR: 25. O2 saturation: 100%. --15:59 02/05/20 [place] 4 Clinical Report - Nurses [facility] Emergency Department [address] [place] [address] Phone #: ext- [phone] 02/05/2020 14:42 Patient: DONNY FAITH Sex: M : 1955 Age: 65y Tech, Ivon, ER Tech1 Finger stick glucose: 279; performed by nurse. --16:45 02/05/20 Elida Cunningham, RChiara 16:30 02/05/2020 IV Fluids IV NS [...] and precautions. Verbalizes understanding. --16:44 02/05/20 Elida Cunningham R.N. 17:04 02/05/20. BP: 154/88. MAP: 110. HR: 87. RR: 25. O2 saturation: 100%. --17:04 02/05/20 Ivon Hopkins ED, ER Tech1 ( 1650 house doctor in to see pt). --17:12 02/05/20 Quoc Sandoval RN ( 1730 pt sleeping respirations easy not disturbed). --17:34 [...] Sandoval RN. 5 Clinical Report - Nurses [facility] Emergency Department [address] [place] [address] Phone #: ext- [phone] 02/05/2020 14:42 Patient: DONNY FAITH Sex: M : 1955 Age: 65yLocked/Released at 02/05/2020 18:48 by Quoc Sandoval RN Name Value Range Interpretation Code Description Data Raquel rce(s) Supporting Document(s) ID Date Data Source [id number] 02/05/2020 02:36:00 PM EDT [facility] 1 Clinical Report - Physicians/Mid Levels [facility] Emergency Department [address] [place] [address] Phone #: ext- [phone] 02/05/2020 14:42 Patient: [...] was just discharged two days ago from [facility] for similar complaints. He also states someone [...] Cholecystectomy. 2 Clinical Report - Physicians/Mid Levels [facility] Emergency Department [address] [place] [address] Phone #: ext- [phone] 02/05/2020 14:42 Patient: [...] inhalation, 2x a day. Advocate Insulin Pen [place]. Aspir- 81 Oral (Tablet Delayed Release 81 mg) 1 tablet, daily. Basaglar 20 unita, at bedtime. [facility]. Claritin Oral (Tablet Chewable 5 mg) [...] NexIUM Oral 40 mg, daily. Allergies: Benadryl. [place]. Motrin. Paxil. Penicillins. Thorazine.SOCIAL HISTORYCurrent every day heavy tobacco smoker (cigarette)- 1-2 packs per day.FAMILY HISTORYFather: Coronary Artery Disease.Mother: Diabetes.ADDITIONAL NOTESThe nursing notes have been reviewed. 3 Clinical Report - Physicians/Mid Levels [facility] Emergency Department [address] [place] [address] Phone #: ext- [phone] 02/05/2020 14:42 Patient: [...] 1.0 4 Clinical Report - Physicians/Mid Levels [facility] Emergency Department [address] [place] [address] Phone #: ext- [phone] 02/05/2020 14:42 Patient: DONNY FAITH Sex: M [...] Normal 5 Clinical Report - Physicians/Mid Levels [facility] Emergency Department [address] [place] [address] Phone #: ext- [phone] 02/05/2020 14:42 Patient: [...] rce(s) Supporting Document(s) ID Date Data Source [id number] 02/09/2020 06:38:00 AM [facility] Name Value Range Interpretation Code Description Data Raquel rce(s) Supporting Document(s) Levetiracetam [Mass/volume] in Serum or Plasma <1.0 ug/mL 10.0-40.0 L [facility] Verified by repeat analysisThis test was developed and its performance characteristicsdetermined by [facility]. It has not been cleared or approvedby the Food and Drug Administration. ID Date Data Source [id number] 02/05/2020 06:56:00 PM [facility] Name Value Range Interpretation Code Description Data Raquel rce(s) Supporting Document(s) Digoxin [Mass/volume] in Serum or Plasma <0.4 NG/ML 0.8 - 2.0 L [facility] ID Date Data Source [id number] 02/05/2020 06:53:00 PM EDT [facility] Name Value Range Interpretation Code Description Data Raquel rce(s) Supporting Document(s) Ammonia [Mass/volume] in Plasma <17.0 UG/DL 27.2 - 102 L [facility] ID Date Data Source [id number] 02/05/2020 06:41:00 PM EDT [facility] Name Value Range Interpretation Code Description Data Raquel rce(s) Supporting Document(s) Hemoglobin A1c/Hemoglobin.total in Blood 12.8 % 4.4 - 6.1 H [facility] {A1]{HB] ID Date Data Source [id number] 02/05/2020 06:30:00 PM EDT [facility] Name Value Range Interpretation Code Description Data Raquel rce(s) Supporting Document(s) pH of Serum or Plasma 7.40 7.32 - 7.43 [facility] pCO2 V 40.1 mm/HG 38.0 - 51.0 [facility] pO2 V 24.3 mm/HG 30.0 - 55.0 L [facility] Bicarbonate [Moles/volume] in Venous blood 24.4 meq/L 22.0 - 29.0 [facility] TCO2 V 25.6 meq/L 22.0 - 29.0 [facility] Base excess in Blood by calculation -0.3 -2.0 - 2.0 [facility] O2 SAT V 42.9 % 40.0 - 85.0 [facility] ital ID Date Data Source [id number] 02/05/2020 06:30:00 PM EDT [facility] Name Value Range Interpretation Code Description Data Raquel rce(s) Supporting Document(s) Lactate [Moles/volume] in Serum or Plasma 1.7 MMOL/L 0.2 - 2.2 [facility] ID Date Data Source [id number] 02/07/2020 03:30:00 PM EDT [facility] Name Value Range Interpretation Code Description Data Raquel rce(s) Supporting Document(s) Phenytoin [Mass/volume] in Serum or Plasma <0.8 ug/mL 10.0-20.0 L [facility] Verified by repeat analysis Detection Limit = 0.8 <0.8 Indicates None Detected ID Date Data Source [id number] 02/05/2020 06:24:00 PM EDT [facility] Name Value Range Interpretation Code Description Data Raquel rce(s) Supporting Document(s) DRUG SCREEN URINE [facility] URINE DRUG SCREEN Amphetamine [Presence] in Urine by Screen method NEGATIVE NORMAL: N EGATIVE [facility] BARBITURATES NEGATIVE NORMAL: NEGATIVE [facility] BENZO NEGATIVE NORMAL: NEGATIVE [facility] COCAINE NEGATIVE NORMAL: NEGATIVE [facility] Tetrahydrocannabinol [Presence] in Urine NEGATIVE NORMAL: NEGATIVE [facility] OPIATES NEGATIVE NORMAL: NEGATIVE [facility] Phencyclidine [Presence] in Urine by Screen method NEGATIVE NOR MAL: NEGATIVE [facility] \\BLDo\\URINE DRUG SCR EEN INTERPRETATION\\BLDx\\ THE CUTOFFF LEVELS FOR DETECTION ARE FOLLOWS: AMPHETAMINES 1000 ng/ml BARBITUARATES 200 ng/ml BENZODIAZEPINES 100 ng/ml THC 50 ng/ml PHENCYCLIDINE 25 ng/ml OPIATES 300 ng/ml COCAINE 300 ng/ml ALL POSITIVES ARE CONSIDERED PRESUMPTIVE POSITIVE CONFIRMATION WILL BE PERFORMED AT PHYSICIAN REQUEST. ID Date Data Source [id number] 02/05/2020 03:45:00 PM EDT [facility] Name Value Range Interpretation Code Description Data Raquel rce(s) Supporting Document(s) TROPONIN T <0.01 NG/ML 0.00 - 0.10 [facility]ital TROPONIN T0.1 ng/ml Recommended as the c linical threshold value forTroponin T. ID Date Data Source [id number] 02/05/2020 03:45:00 PM EDT [facility] Name Value Range Interpretation Code Description Data Raquel rce(s) Supporting Document(s) BASIC METABOLIC PANEL [facility] BASIC METABOLIC PANEL Sodium [Moles/volume] in Serum or Plasma 130 mEq/L 134 - 153 L [facility] Potassium [Moles/volume] in Serum or Plasma 3.7 mEq/L 3.6 - 5.0 [facility] Chloride [Moles/volume] in Serum or Plasma 95 mEq/L 98 - 107 L [facility] Carbon dioxide, total [Moles/volume] in Serum or Plasma 23 MEQ/L 22 - 30 [facility] Glucose [Mass/volume] in Serum or Plasma 341 MG/DL 65 - 110 H [facility] BUN 11 MG/DL 7 - 21 [facility] al Creatinine [Mass/volume] in Serum or Plasma 0.5 MG/DL 0.7 - 1.5 L [facility] BUN/CREAT 22 8 - 27 [facility] Calcium [Mass/volume] in Serum or Plasma 8.9 MG/DL 8.4 - 10.2 [facility] Anion gap 3 in Serum or Plasma 12.0 mmol/L 8.0 - 16.0 [facility] AGE 65 yrs [facility] al AFR AMER GFR >60 mL/min [facility] spital NON-AA GFR >60 mL/min [facility] ital Male GFR Inter prentation 20-49 yrs [...] >32 mL/min Normal ID Date Data Source [id number] 02/05/2020 03:34:00 PM EDT [facility] Name Value Range Interpretation Code Description Data Raquel rce(s) Supporting Document(s) CBC W/AUTOMATED DIFF [facility] COMPLETE BLOOD COUNT Leukocytes [#/volume] in Blood by Automated count 7.1 10^3/uL 4.2 - 1 1.0 [facility] Erythrocytes [#/volume] in Blood by Automated count 3.98 10^6/uL 4. 50 - 6.30 L [facility] Hemoglobin [Mass/volume] in Blood 12.4 g/dL 14.0 - 16.0 L [facility] Hematocrit [Volume Fraction] of Blood by Automated count 35.1 % 4 1.0 - 51.0 L [facility] Erythrocyte mean corpuscular volume [Entitic volume] by Auto mated count 88.2 fL 80.0 - 94.0 [facility] Erythrocyte mean corpuscular hemoglobin [Entitic mass] by Automated count 31.2 pg 27.0 - 34.0 [facility] Erythrocyte mean corpuscular hemoglobin concentration [Mass/volume] by Automated count 35.3 g/dL 31.0 - 36.0 [facility] Erythrocyte distribution width [Ratio] by Automated count 13.5 % 11.5 - 14.8 [facility] Platelets [#/volume] in Blood by Automated count 238 10^3/uL 150 - 45 0 [facility] Platelet mean volume [Entitic volume] in Blood by Automated count 10.0 fL 7.4 - 10.4 [facility] Neutrophils/100 leukocytes in Blood by Automated count 56.5 % 37. 0 - 80.0 [facility] Lymphocytes/100 leukocytes in Blood by Manual count 34.5 % 25.0 - 40.0 [facility] Monocytes/100 leukocytes in Blood by Automated count 5.4 % 3.0 - 8.0 [facility] Eosinophils/100 leukocytes in Blood by Automated count 2.7 % 0.0 - 7.0 [facility] Basophils/100 leukocytes in Blood by Automated count 0.6 % 0.0 - 2.0 [facility] %IG 0.3 % 0.0 - 0.0 H [facility] al %NRBC 0.0 % 0.0 - 0.0 [facility] al Neutrophils [#/volume] in Blood by Automated count 3.99 10^3/uL 2.00 - 6.90 [facility] Lymphocytes [#/volume] in Blood by Automated count 2.43 10^3/uL 0.60 - 3.40 [facility] Monocytes [#/volume] in Blood by Automated count 0.38 10^3/uL 0.00 - 0.90 [facility] Eosinophils [#/volume] in Blood by Automated count 0.19 10^3/uL 0.00 - 0.70 [facility] Basophils [#/volume] in Blood by Automated count 0.04 10^3/uL 0.00 - 0.20 [facility] #IG 0.02 10^3/uL 0.00 - 0.10 [facility] #NRBC 0.00 10^3/uL 0.00 - 0.00 [facility] MANUAL DIFF NOT INDICATED [facility] RBC MORPH NOT INDICATED [facility] ID Date Data Source [id number] 02/05/2020 03:33:00 PM EDT [facility] Name Value Range Interpretation Code Description Data Raquel rce(s) Supporting Document(s) URINALYSIS [facility] homero [facility] yellow NORMAL: Yellow [facility] ospital CLARITY clear NORMAL: Clear [facility] spital Specific gravity of Urine by Test strip 1.010 1.001 - 1.030 [facility] pH 6.5 5 - 9 [facility] Glucose [Mass/volume] in Urine by Test strip 1000 NORMAL: Negat [place] [facility] Bilirubin.total [Presence] in Urine by Test strip NEG NORMAL: Negative [facility] Ketones [Presence] in Urine by Test strip 5 NORMAL: Negative [facility] Protein [Mass/volume] in Urine by Test strip NEG NORMAL: Negat [facility] Nitrite [Presence] in Urine by Test strip NEG NORMAL: Negative [facility] BLOOD NEG NORMAL: Negative [facility] Leukocyte esterase [Presence] in Urine by Test strip NEG SANDRA L: Negative [facility] Urobilinogen [Mass/volume] in Urine by Test strip NOR less jenniffer n 1.0 mg/dL [facility] MICROSCOPIC Not Indicate [place] [facility] ospital ID Date Data Source [id number] 02/04/2020 09:46:00 [place] [address] CONSULTATIONNAME: DIMA Garcia ROOM#: [id number] OF : 1955 MR#: [id number] PHYS: Rebeka Boucher PA-C DATE: 02/02/20DATE OF [...] the past, the patient was admitted to [facility], he was admitted several times. He [...] or rhonchi.ABDOMEN: Soft. Nontender. No visceromegaly. [address] [place] [address] CONSULTATIONNAME: DIMA Garcia ROOM#: [id number] OF : 1955 MR#: [id number] PHYS: Rebeka Bocuher PA-C DATE: 02/02/20EXTREMTIES: Normal. Peripheral pulses palpable.NEUROLOGICAL: Normal.LABORATORY DATA:Blood tests show hemoglobin 14.2, sodium 131, potassium 3.8, glucose 443, BUN 12, creatinine 0.6.EKG showed regular sinus rhythm. X-ray of the chest is negative. [facility] at 50-60%.IMPRESSION/RECOMMENDATIONS:Patient with possible costochondritis, atypical chest pain, and COPD. I agree with the currentmanagement.DD: Jamar Valentine MD, 02/03/20 17:25DT: SSR 02/04/20 09:46DS: Jamar Valentine MD, PC 02/05/20 09:37 2 Name Value Range Interpretation Code Description Data Raquel rce(s) Supporting Document(s) ID Date Data Source [id number] 02/04/2020 09:15:00 AM EDT [facility] [address] [place] [address] PHONE: [phone] FAX: [phone] Name .................. : DIMA Garcia Acct Number.................. : [id number] ROOM. ................. : TR-06 MR Number ................... : [id number] Stay type ............. : E/R Discharge Date......... ... : Admit Date ......... : 02/02/20 Admit Phys .................... : COONEYNORM Date of ....... : 1955 Family Phys ................... : TRU WATERMAN Phone .................. : [phone] Age ................................ : 65 Film# .................. .:[id number] Sex ................................. : M Unsigned transcriptions are preliminary reports and do not represent a medical or legal document CHEST PORTABLE 55158 COMPLETE:02/02/20 21:13 RLB 65272 Reason (s): Chest Pain PORTABLE CHEST X-RAY: INDICATION: Chest pain. COMPARISON: 05/14/19 FINDINGS: The cardiac and mediastinal silhouettes appear normal and the lungs are clear. The bones and soft tissues are normal. The upper abdomen is unremarkable. IMPRESSION: No acute disease identifiable. Electronically Reviewed and Signed By Fazal Kaur MD , 02/04/20 09:15, ARLIN Transcribe Initials: CHELLY , Transcribe Date: 02/02/20 21:25, Dictation Date: Copy for: EMERGENCY DEPT via modem Copy for: [facility] REC Page 1 of 1 Name Value Range Interpretation Code Description Data Raquel rce(s) Supporting Document(s) ID Date Data Source [id number] 02/03/2020 07:25:00 [place] [address] RESPIRATORY CARE REPORT ==== ---------NAME------- NUMBER SEX AGE ADMIT DISC. XRAY# [facility] DONNY Garcia [id number] M 65 02/02/20 02/03/20 [id number] MB4 O/P DATE OF : 1955 M/R# [id number] PH#: [phone] [id number] LOCATION: EMERGENCY DEPT EKG 75898 COMPL ETE:02/03/20 19:24 VMT 26191 PHYSICIAN: GABRIELA Name Value Range Interpretation Code Description Data Raquel rce(s) Supporting Document(s) ID Date Data Source [id number] 02/03/2020 07:19:00 PM EDT [facility] [address] [facility] [place] [address] RESPIRATORY CARE REPORT ==== ---------NAME------- NUMBER SEX AGE ADMIT DISC. XRAY# F/C [facility] A [id number] M 65 02/02/20 02/03/20 [id number] MB4 O/P DATE OF : 1955 M/R# [id number] PH#: [phone] [id number] LOCATION: EMERGENCY DEPT EKG 15003 COMPL ETE:02/03/20 01:58 VMT 43190 PHYSICIAN: GABRIELA ELDER Name Value Range Interpretation Code Description Data Raquel rce(s) Supporting Document(s) ID Date Data Source [id number] 02/03/2020 11:02:00 AM EDT [facility] Name Value Range Interpretation Code Description Data Raquel rce(s) Supporting Document(s) TROPONIN T <0.01 NG/ML 0.00 - 0.10 [facility] ospital TROPONIN T0.1 ng/ml Recommended as the c linical threshold value forTroponin T. ID Date Data Source [id number] 02/03/2020 06:40:00 AM EDT [facility] Name Value Range Interpretation Code Description Data Raquel rce(s) Supporting Document(s) COMPREHENSIVE METABOLIC PANEL [facility] COMPREHENSIVE METABOLIC PANEL Sodium [Moles/volume] in Serum or Plasma 135 mEq/L 134 - 153 [facility] Potassium [Moles/volume] in Serum or Plasma 3.5 mEq/L 3.6 - 5.0 L [facility] Chloride [Moles/volume] in Serum or Plasma 101 mEq/L 98 - 107 [facility] Carbon dioxide, total [Moles/volume] in Serum or Plasma 26 MEQ/L 22 - 30 [facility] Glucose [Mass/volume] in Serum or Plasma 355 MG/DL 65 - 110 H [facility] BUN 9 MG/DL 7 - 21 [facility] al Creatinine [Mass/volume] in Serum or Plasma 0.6 MG/DL 0.7 - 1.5 L [facility] BUN/CREAT 15 8 - 27 [facility] Protein [Mass/volume] in Serum or Plasma 6.0 G/DL 6.3 - 8.2 L [facility] Albumin [Mass/volume] in Serum or Plasma 3.6 G/DL 3.9 - 5.0 L [facility] Globulin [Mass/volume] in Serum by calculation 2.4 GM/DL 2.4 - 3.2 [facility] A/G RATIO 1.5 0.8 - 2.0 [facility] Calcium [Mass/volume] in Serum or Plasma 8.8 MG/DL 8.4 - 10.2 [facility] Bilirubin.total [Mass/volume] in Serum or Plasma <0.7 MG/DL 0.2 - 1.3 [facility] Alkaline phosphatase [Enzymatic activity/volume] in Serum or Plasma 70 U/L 38 - 126 [facility] Aspartate aminotransferase [Enzymatic activity/volume] in Serum or Plasma 11 U/L 5 - 40 [facility] Alanine aminotransferase [Enzymatic activity/volume] in Seru m or Plasma 15 U/L 7 - 56 [facility] Anion gap 3 in Serum or Plasma 8.0 mmol/L 8.0 - 16.0 [facility] AGE 65 yrs [facility] al NON-AA GFR >60 mL/min [facility] ital AFR AMER GFR >60 mL/min [facility] Ho spital Male GFR In terprentation 20-49 [...] >32 mL/min Normal ID Date Data Source [id number] 02/03/2020 06:04:00 AM EDT [facility] Name Value Range Interpretation Code Description Data Raquel rce(s) Supporting Document(s) CBC W/AUTOMATED DIFF [facility] COMPLETE BLOOD COUNT Leukocytes [#/volume] in Blood by Automated count 6.2 10^3/uL 4.2 - 1 1.0 [facility] Erythrocytes [#/volume] in Blood by Automated count 3.76 10^6/uL 4. 50 - 6.30 L [facility] Hemoglobin [Mass/volume] in Blood 11.3 g/dL 14.0 - 16.0 L [facility] Hematocrit [Volume Fraction] of Blood by Automated count 33.0 % 4 1.0 - 51.0 L [facility] Erythrocyte mean corpuscular volume [Entitic volume] by Auto mated count 87.8 fL 80.0 - 94.0 [facility] Erythrocyte mean corpuscular hemoglobin [Entitic mass] by Automated count 30.1 pg 27.0 - 34.0 [facility] Erythrocyte mean corpuscular hemoglobin concentration [Mass/volume] by Automated count 34.2 g/dL 31.0 - 36.0 [facility] Erythrocyte distribution width [Ratio] by Automated count 13.3 % 11.5 - 14.8 [facility] Platelets [#/volume] in Blood by Automated count 221 10^3/uL 150 - 45 0 [facility] Platelet mean volume [Entitic volume] in Blood by Automated count 9.9 fL 7.4 - 10.4 [facility] Neutrophils/100 leukocytes in Blood by Automated count 33.3 % 37. 0 - 80.0 L [facility] Lymphocytes/100 leukocytes in Blood by Manual count 58.5 % 25.0 - 40.0 H [facility] Monocytes/100 leukocytes in Blood by Automated count 6.3 % 3.0 - 8.0 [facility] Eosinophils/100 leukocytes in Blood by Automated count 1.1 % 0.0 - 7.0 [facility] Basophils/100 leukocytes in Blood by Automated count 0.6 % 0.0 - 2.0 [facility] %IG 0.2 % 0.0 - 0.0 H [facility] al %NRBC 0.0 % 0.0 - 0.0 [facility] al Neutrophils [#/volume] in Blood by Automated count 2.07 10^3/uL 2.00 - 6.90 [facility] Lymphocytes [#/volume] in Blood by Automated count 3.63 10^3/uL 0.60 - 3.40 H [facility] Monocytes [#/volume] in Blood by Automated count 0.39 10^3/uL 0.00 - 0.90 [facility] Eosinophils [#/volume] in Blood by Automated count 0.07 10^3/uL 0.00 - 0.70 [facility] Basophils [#/volume] in Blood by Automated count 0.04 10^3/uL 0.00 - 0.20 [facility] #IG 0.01 10^3/uL 0.00 - 0.10 [facility]spital #NRBC 0.00 10^3/uL 0.00 - 0.00 [facility] MANUAL DIFF NOT INDICATED [facility] RBC MORPH NOT INDICATED [facility] spital ID Date Data Source [id number] 02/03/2020 04:49:00 AM EDT [facility] Name Value Range Interpretation Code Description Data Raquel rce(s) Supporting Document(s) TROPONIN T <0.01 NG/ML 0.00 - 0.10 [facility] TROPONIN T0.1 ng/ml Recommended as the c linical threshold value forTroponin T. ID Date Data Source [id number] 02/02/2020 10:01:00 PM EDT [facility] Name Value Range Interpretation Code Description Data Rauqel rce(s) Supporting Document(s) URINALYSIS [facility] homero URINALYSIS SOURCE R [facility] al COLOR yellow NORMAL: Yellow [facility] CLARITY clear NORMAL: Clear [facility] sp[facility] Specific gravity of Urine by Test strip 1.010 1.001 - 1.030 [facility] pH 5 5 - 9 [facility] Glucose [Mass/volume] in Urine by Test strip 1000 NORMAL: Negat [place] [facility] Bilirubin.total [Presence] in Urine by Test strip NEG NORMAL: Negative [facility] Ketones [Presence] in Urine by Test strip 5 NORMAL: Negative [facility] Protein [Mass/volume] in Urine by Test strip 15 NORMAL: Negat [place] [facility] Nitrite [Presence] in Urine by Test strip NEG NORMAL: Negative [facility] BLOOD NEG NORMAL: Negative [facility] Leukocyte esterase [Presence] in Urine by Test strip NEG SANDRA L: Negative [facility] Urobilinogen [Mass/volume] in Urine by Test strip NOR less jenniffer n 1.0 mg/dL [facility] MICROSCOPIC See Below [facility] ital WBC 0 - 1 NORMAL: NONE SEEN [facility] ID Date Data Source [id number] 02/02/2020 09:24:00 PM EDT [facility] Name Value Range Interpretation Code Description Data Raquel rce(s) Supporting Document(s) Magnesium [Mass/volume] in Serum or Plasma 2.1 MG/DL 1.7 - 2.2 [facility] ID Date Data Source [id number] 02/02/2020 09:24:00 PM EDT [facility] Name Value Range Interpretation Code Description Data Raquel rce(s) Supporting Document(s) Lipase [Enzymatic activity/volume] in Serum or Plasma 58 U/L 13 - 60 [facility] ID Date Data Source [id number] 02/02/2020 09:23:00 PM EDT [facility] Name Value Range Interpretation Code Description Data Raquel rce(s) Supporting Document(s) COMPREHENSIVE METABOLIC PANEL [facility] COMPREHENSIVE METABOLIC PANEL Sodium [Moles/volume] in Serum or Plasma 131 mEq/L 134 - 153 L [facility] Potassium [Moles/volume] in Serum or Plasma 3.8 mEq/L 3.6 - 5.0 [facility] Chloride [Moles/volume] in Serum or Plasma 92 mEq/L 98 - 107 L [facility] Carbon dioxide, total [Moles/volume] in Serum or Plasma 26 MEQ/L 22 - 30 [facility] Glucose [Mass/volume] in Serum or Plasma 443 MG/DL 65 - 110 [facility] CALL/ READ BACK MARTY IN ED [facility] BY: STEFFEN [facility] ital BUN 12 MG/DL 7 - [facility] al Creatinine [Mass/volume] in Serum or Plasma 0.6 MG/DL 0.7 - 1.5 L [facility] BUN/CREAT 20 - [facility] al Protein [Mass/volume] in Serum or Plasma 7.9 G/DL 6.3 - 8.2 [facility] Albumin [Mass/volume] in Serum or Plasma 4.8 G/DL 3.9 - 5.0 [facility] Globulin [Mass/volume] in Serum by calculation 3.1 GM/DL 2.4 - 3.2 [facility] A/G RATIO 1.5 0.8 - 2.0 [facility] Calcium [Mass/volume] in Serum or Plasma 10.1 MG/DL 8.4 - 10.2 [facility] Bilirubin.total [Mass/volume] in Serum or Plasma <0.7 MG/DL 0.2 - 1.3 [facility] Alkaline phosphatase [Enzymatic activity/volume] in Serum or Plasma 91 U/L 38 - 126 [facility] Aspartate aminotransferase [Enzymatic activity/volume] in Serum or Plasma 15 U/L 5 - 40 [facility] Alanine aminotransferase [Enzymatic activity/volume] in Seru m or Plasma 22 U/L 7 - 56 [facility] Anion gap 3 in Serum or Plasma 13.0 mmol/L 8.0 - 16.0 [facility]GE 65 [facility] GFR >60 mL/min [facility] ital AFR AMER GFR >60 mL/min [facility] Ho spital Male GFR In terprentation 20-49 [...] >32 mL/min Normal ID Date Data Source [id number] 02/02/2020 09:22:00 PM EDT [facility] Name Value Range Interpretation Code Description Data Raquel rce(s) Supporting Document(s) BNP 160 PG/ML 0 - 125 H [facility] al ID Date Data Source [id number] 02/02/2020 08:54:00 PM EDT [facility] Name Value Range Interpretation Code Description Data Raquel rce(s) Supporting Document(s) TROPONIN T <0.01 NG/ML 0.00 - 0.10 [facility] ospital TROPONIN T0.1 ng/ml Recommended as the c linical threshold value forTroponin T. ID Date Data Source [id number] 02/02/2020 08:33:00 PM EDT [facility] Name Value Range Interpretation Code Description Data Raquel rce(s) Supporting Document(s) CBC W/AUTOMATED DIFF [facility] COMPLETE BLOOD COUNT Leukocytes [#/volume] in Blood by Automated count 10.5 10^3/uL 4.2 - 11.0 [facility] Erythrocytes [#/volume] in Blood by Automated count 4.57 10^6/uL 4. 50 - 6.30 [facility] Hemoglobin [Mass/volume] in Blood 14.2 g/dL 14.0 - 16.0 [facility] Hematocrit [Volume Fraction] of Blood by Automated count 39.6 % 4 1.0 - 51.0 L [facility] Erythrocyte mean corpuscular volume [Entitic volume] by Auto mated count 86.7 fL 80.0 - 94.0 [facility] Erythrocyte mean corpuscular hemoglobin [Entitic mass] by Automated count 31.1 pg 27.0 - 34.0 [facility] Erythrocyte mean corpuscular hemoglobin concentration [Mass/volume] by Automated count 35.9 g/dL 31.0 - 36.0 [facility] Erythrocyte distribution width [Ratio] by Automated count 13.4 % 11.5 - 14.8 [facility] Platelets [#/volume] in Blood by Automated count 265 10^3/uL 150 - 45 0 [facility] Platelet mean volume [Entitic volume] in Blood by Automated count 9.7 fL 7.4 - 10.4 [facility] Neutrophils/100 leukocytes in Blood by Automated count 48.9 % 37. 0 - 80.0 [facility] Lymphocytes/100 leukocytes in Blood by Manual count 42.0 % 25.0 - 40.0 H [facility] Monocytes/100 leukocytes in Blood by Automated count 7.8 % 3.0 - 8.0 [facility] Eosinophils/100 leukocytes in Blood by Automated count 0.4 % 0.0 - 7.0 [facility] Basophils/100 leukocytes in Blood by Automated count 0.6 % 0.0 - 2.0 [facility] %IG 0.3 % 0.0 - 0.0 H [facility] al %NRBC 0.0 % 0.0 - 0.0 [facility] al Neutrophils [#/volume] in Blood by Automated count 5.14 10^3/uL 2.00 - 6.90 [facility] Lymphocytes [#/volume] in Blood by Automated count 4.41 10^3/uL 0.60 - 3.40 H [facility] Monocytes [#/volume] in Blood by Automated count 0.82 10^3/uL 0.00 - 0.90 [facility] Eosinophils [#/volume] in Blood by Automated count 0.04 10^3/uL 0.00 - 0.70 [facility] Basophils [#/volume] in Blood by Automated count 0.06 10^3/uL 0.00 - 0.20 [facility] #IG 0.03 10^3/uL 0.00 - 0.10 [facility] ospital #NRBC 0.00 10^3/uL 0.00 - 0.00 [facility]ital MANUAL DIFF NOT INDICATED [facility] RBC MORPH NOT INDICATED [facility] spital ID Date Data Source [id number] 01/07/2020 07:39:00 [place] [address] RESPIRATORY CARE REPORT ==== ---------NAME------- NUMBER SEX AGE ADMIT DISC. XRAY# F/C AUTUMN Garcia [id number] M 64 01/06/20 01/06/20 [id number] MB4 E/R DATE OF : 1955 M/R# [id number] PH#: [phone] - LOCATION: EMERGENCY DEPT EKG 72125 COMP LETE:01/07/20 07:15 [place] [id number] PHYSICIAN: WHITLEY OLMSTEAD Name Value Range Interpretation Code Description Data Raquel rce(s) Supporting Document(s) ID Date Data Source [id number] 01/07/2020 11:59:00 [place] [address] PHONE: [phone] FAX: [phone] Name .................. : DIMA Garcia Acct Number.................. : [id number] ROOM. ................. : Number ................... : [id number] Stay type ............. : E/R Discharge Date......... ... : 01/06/20 Admit Date ......... : 01/06/20 Admit Phys .................... : WHITLEY OLMSTEAD Date of ....... : 1955 Family Phys ................... : TRU WATERMAN Phone .................. : [phone] Age ................................ : 64 Film# .................. .:[id number] Sex ................................. : M Unsigned transcriptions are preliminary reports and do not represent a medical or legal document CT THORAX W/O CONTRAST [id number] COMPLETE:01/06/20 20:50 BEM 05491 Reason(s): fall, rig ht rib injury CT [...] By Wenceslao Hudson M.D. , 01/07/20 11:59, [facility] Transcribe Initials: CHELLY , Transcribe Date: 01/06/20 21:35, Dictation Date: Page 1 of 2 [place] [address] PHONE: [phone] FAX: [phone] Name .................. : DIMA Garcia Acct Number.................. : [id number] ROOM. ................. : TR-02 MR Number ................... : [id number] Stay type ............. : E/R Discharge Date......... ... : 01/06/20 Admit Date ......... : 01/06/20 Admit Phys .................... : Andre OLMSTEAD Date of ....... : 1955 Family Phys ................... : OTT GUEVARA Phone .................. : [phone] Age ................................ : 64 Film# .................. .:[id number] Sex ................................. : M Unsigned transcriptions are preliminary reports and do not represent a medical or legal document CT THORAX W/O CONTRAST 07994 COMPLETE:01/06/20 20:50 BEM 77924 Reason(s): fall, right rib injury Copy for: EMERGENCY DEPT via modem Copy f or: 710 MED REC DISCHARGED Page 2 of 2 Name Value Range Interpretation Code Description Data Raquel rce(s) Supporting Document(s) ID Date Data Source [id number] 01/06/2020 07:17:00 PM EDT [facility] 1 OrderSheet [facility] Emergency Department [address] [place] [address] Phone #: ext- [phone] 01/06/2020 19:14 Patient: DONNY FAITH Sex: M : 1955 Age: 64yWEIGHT:72.5 kg (S) HEIGHT:68 inches (S) BMI:24.3ALLERGIES: Benadryl, [place], Motrin, Paxil, Penicillins, ThorazineCHIEF COMPLAINT: became dizzy, [...] Entered Acknowledged InitialedCT Chest W/O Cont STAT 19:28 01/06/2020 19:38 [place],(Oxygen?(No)) Denver Arreaga R.N., M.D.; Reason for Study: fall, right rib injuryMEDICATION/IV/DRIP/FLUID ORDERSOrder Description Priority Entered Acknowledged InitialedGENERAL ORDERSOrder Description Priority Entered Acknowledged InitialedEKG 19:28 01/06/2020 19:28 [place] [facility] Denver Arreaga [facility] M.D.; Tech1 2 OrderSheet [facility] Emergency Department [address] [place] [address] Phone #: ext- [phone] 01/06/2020 19:14 Patient: DONNY FAITH Sex: M : 1955 Age: 64y[Electronically signed by Denver Arreaga M.D. (00:30 01/07/2020)][Electronically signed by Brandy Batista R.N. (01:52 01/07/2020)][Electronically locked by Brandy Batista R.N. (01/07/2020)] Name Value Range Interpretation Code Description Data Raquel rce(s) Supporting Document(s) ID Date Data Source [id number] 01/06/2020 07:17:00 PM EDT [facility] 1 Medication Reconciliation Report [facility] Emergency Department [address] [place] [address] Phone #: ext- [phone] 01/06/2020 19:14 Patient: DONNY FAITH Sex: M : 1955 Age: 64yWeight: 72.5 kgHeight/Length: 68 in.BMI: 24.3ALLERGIES: Benadryl, [place], Motrin, Paxil, Penicillins, ThorazineThe patient's Home Medications are listed below:CONTINUE TAKING THE FOLLOWING MEDICATIONS: Advair Diskus Inhalation (500-50 mcg/dose) 1 inhalation, 2x a day [facility]ocate Insulin Pen [place] Aspir-81 Oral (81 mg) 1 tablet, daily Basaglar 20 unita, at bedtime [facility] Claritin Oral (5 mg) 1 tablet, [...] 2x a day 2 Medication Reconciliation Report [facility] Emergency Department [address] [place] [address] Phone #: ext- [phone] 01/06/2020 19:14 --------- [...] rce(s) Supporting Document(s) ID Date Data Source [id number] 01/06/2020 07:17:00 PM EDT [facility] 1 Medication Administration Record [facility] Emergency Department [address] [place] [address] Phone #: ext- [phone] 01/06/2020 19:14 Patient: DONNY FAITH Sex: M : 1955 Age: 64yWeight: 72.5 kgHeight/Length: 68 inBMI: 24.3ALLERGIES: Benadryl, [place], Motrin, Paxil, Penicillins, ThorazineDate/Time Medication Administered Medication Ordered Name Value Range Interpretation Code Description Data Raquel rce(s) Supporting Document(s) ID Date Data Source [id number] 01/06/2020 07:17:00 PM EDT [facility] 1 General Instructions [facility] Emergency Department [address] [place] [address] Phone #: ext- [phone] 01/06/2020 19:14 Patient: [...] inhalation 2x a day. Advocate Insulin Pen [place]*. Aspir-81 Oral : Tablet Delayed Release 81 mg, 1 tablet daily. Basaglar* : 20 unita, at bedtime. [facility]* : [place]. Claritin Oral : Tablet Chewable 5 mg, [...] : 2x a day. 2 General Instructions [facility] Emergency Department [address] [place] [address] Phone #: ext- [phone] 01/06/2020 19:14 Patient: [...] inflammation, swelling and pain. 3 General Instructions [facility] Emergency Department [address] [place] [address] Phone #: ext- [phone] 01/06/2020 19:14 Patient: [...] falls. Use night lights. 4 General Instructions [facility] Emergency Department [address] [place] [address] Phone #: ext- [phone] 01/06/2020 19:14 Patient: DONNY FAITH Sex: M : 1955 Age: 64y Have your eyes tested to be sure you are seeing well, even if you already wear glasses.Follow-upFollow up with your healthcare provider, or as advised. If X-rays or CT scans were done, you will benotified if there is a change in the reading, especially if it affects treatment.Call [phone] if any of these happen: Trouble breathing [...] in vomit, stools (black or red color) [phone] [employer]. [address] [place] [address]. All rights reserved. This information is not intended as asubstitute for professional medical care. Always follow your healthcare professional's instructions.Rib Fracture 5 General Instructions [facility] Emergency Department [address] [place] [address] Phone #: ext- [phone] 01/06/2020 19:14 Patient: [...] of pain and swelling. You may use jias-gwz-iblrrpr pain medicine to control pain, unless another pain medicine 6 General Instructions [facility] Emergency Department [address] [place] [address] Phone #: ext- [phone] 01/06/2020 19:14 Patient: [...] new findings that may affect your care.Call [phone] if you have: Dizziness, weakness or fainting [...] healthcare provider Congested cough, nausea, or vomiting [phone] [employer]. [address] [place] [address]. All rights reserved. This information is not intended as asubstitute for professional medical care. Always follow your healthcare professional's instructions. You have been given the following additional information: Mechanical Fall Rib Fracture 7 General Instructions [facility] Emergency Department [address] [place] [address] Phone #: ext- [phone] 01/06/2020 19:14 Patient: DONNY FAITH Sex: M : 1955 Age: 64y(Electronically signed by Denver Arreaga M.D. 01/07/2020 00:30) Name Value Range Interpretation Code Description Data Raquel rce(s) Supporting Document(s) ID Date Data Source [id number] 01/06/2020 07:17:00 PM EDT [facility] 1 Clinical Report - Nurses [facility] Emergency Department [address] [place] [address] Phone #: ext- [phone] 01/06/2020 19:14 Patient: [...] ribs. No redness or deformity noted.). Treatment REGIONAL FACILITIES SPECIALIST: None. SEPSIS SCREEN: Sepsis Screen negative. No suspected or confirmed signs of infection present. --19:20 01/06/20 Cecilia Philip R.N. 19:15 01/06/20. BP: 130/85. MAP: 100. HR: 88. RR: 17. O2 saturation: 96%. Temp: 98.4 F. Pain level now: 01/22. --19:20 01/06/20 Cecilia Philip R.N. Weight: 72.5 kg stated. Height/Length: 68 inches Per Patient. BMI: 24.3. --19:14 01/06/20 Cecilia Philip R.N. Medications Advair Diskus Inhalation (Aerosol Powder Breath Activated 500-50 mcg/dose) 1 inhalation, 2x a day. Advocate Insulin Pen [place]. Aspir-81 Oral (Tablet Delayed Release 81 mg) 1 tablet, daily. Basaglar 20 unita, at bedtime. [facility]. Claritin Oral (Tablet Chewable 5 mg) [...] HFA Inhalation. 2 Clinical Report - Nurses [facility] Emergency Department [address] [place] [address] Phone #: ext- [phone] 01/06/2020 19:14 Patient: DONNY FAITH Sex: M [...] pt on day 3. --19:01/06/20 Cecilia Philip R.N.AllergiesBenadryl.[place].Motrin.Paxil.Penicillins.Thorazine. --19:01/06/20 Cecilia Philip R.NPadmaThe following entry was struck by Denver Arreaga M.D., 20:49 (01/06/20) Reason - wrong value.Acetaminophen. --19:01/06/20 Cecilia Philip R.N. .PROBLEMS:Dementia.CVA - Cerebrovascular Accident.Diabetes Mellitus Type 2.Diabetes Mellitus.Emphysema.COPD - Chronic Obstructive Pulmonary Disease.Bleeding Ulcer.Asthma.Arrhythmia.Chest Wall Pain.Chest Pain.Bronchitis.Seizure.Rib Fracture.Parkinson's Disease.Syncope.Sprain.Sleep Apnea.Hypertension.Hypercholesterolemia.Heart Disease.Neck Pain.MN.Lung Disease. --19:01/06/20 Cecilia Philip R.N. 3 Clinical Report - Nurses [facility] Emergency Department [address] [place] [address] Phone #: ext- [phone] 01/06/2020 19:14 Patient: DONNY FAITH Sex: M : 1955 Age: 64y Sinusitis: Resolved. Lower Extremity Pain: Resolved. Upper Extremity Pain: Resolved. --01/06/20 Cecilia Philip R.N. ADDITIONAL SURGERIES: Appendectomy. Cholecystectomy. [...] assessment completed. No skin integrity risk identified. --19:20 01/06/20 Cecilia Philip R.N. Interventions Identification band on patient. To treatment room. --19:01/06/20 Cecilia Philip R.N.NURSING PROGRESS NOTES 19:01/06/2020 Site #1 started prior to arrival by EMS via IV in the left antecubital space with an 20g angiocath, with aseptic technique; one attempt. Saline lock flushed with 10 mL saline. --:01/06/20 4 Clinical Report - Nurses [facility] Emergency Department [address] [place] [address] Phone #: ext- [phone] 01/06/2020 19:14 Patient: [...] in lowest position. Brakes of bed on. --:01/06/20 Cecilia Philip R.N. 19:29 01/06/20. BP: 116/78. MAP: 90. HR: 83. RR: 25. O2 saturation: 100%. --19:30 01/06/20 Kenny MANN TechIvon ER Tech1 20:27 01/06/20. BP: 122/82. MAP: 95. HR: 82. RR: 25. O2 saturation: 99%. --20:27 01/06/20 [place] 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Ivon ER Tech1 20:09 01/06/20. Reassurance given to the patient. The patient is resting quietly. ( patient given sandwich and drink.). --21:01/06/20 Brandy Batista R.N. 20:10 01/06/2020 Site #1 [...] Patient verbalized understanding. Written instructions provided in Azeri. The patient was discharged by the physician. He was discharged home and unaccompanied at time of discharge. He left ambulatory and via taxi. --21:11 01/06/20 Brandy Batista R.N. 21:01/06/20. BP: 127/83. HR: 84. RR: 16. O2 saturation: 98%. Temp: 98.0 F. Pain level now 0/10. --21:11 01/06/20 Brandy Batista R.N.Locked/Released at 01/07/2020 01:52 by Brandy Batista R.N. Name Value Range Interpretation Code Description Data Raquel rce(s) Supporting Document(s) ID Date Data Source [id number] 01/06/2020 07:17:00 PM EDT [facility] 1 Clinical Report - Physicians/Mid Levels [facility] Emergency Department [address] [place] [address] Phone #: ext- [phone] 01/06/2020 19:14 Patient: DONNY FAITH Sex: M [...] Sleep Apnea. 2 Clinical Report - Physicians/Mid Levels [facility] Emergency Department [address] [place] [address] Phone #: ext- [phone] 01/06/2020 19:14 Patient: DONNY FAITH Sex: M : 1955 Age: 64yHypertension.Hypercholesterolemia.Heart Disease.Neck Pain.MN.Lung Disease.Sinusitis [Resolved].Lower Extremity Pain [Resolved].Upper Extremity Pain [Resolved].Additional Surgeries:Appendectomy.Cholecystectomy.Medications:Advair Diskus Inhalation (Aerosol Powder Breath Activated 500-50 mcg/dose) 1 inhalation, 2x a day.Advocate Insulin Pen [place].Aspir-81 Oral (Tablet Delayed Release 81 mg) 1 tablet, daily.Basaglar 20 unita, at bedtime.[facility].Claritin Oral (Tablet Chewable 5 mg) 1 [...] pack 1 tab day pt on day 3.Allergies:Benadryl.[place].Motrin.Paxil. 3 Clinical Report - Physicians/Mid Levels [facility] Emergency Department [address] [place] [address] Phone #: ext- [phone] 01/06/2020 19:14 --------- Patient: DONNY FAITH Sex: [...] COUNT 4 Clinical Report - Physicians/Mid Levels [facility] Emergency Department [address] [place] [address] Phone #: ext- [phone] 01/06/2020 19:14 Patient: [...] Male GFR Interprentation 20-49 yrs >60 mL/min Wgwjcr29-34 yrs >56 mL/min Normal 60-69 yrs >49 mL/min Normal 70-79yrs>42 mL/min Normal 80 and above >35 mL/min Normal Female GFRInterpretation 20-39 yrs >60 mL/min Normal 40-49 yrs >58 mL/minNormal 50-59 yrs >51 mL/min Normal 60-69 yrs >45 mL/min Jkjzzk22-53 yrs >39 mL/min Normal 80 and above >32 mL/min Normal 5 Clinical Report - Physicians/Mid Levels [facility] Emergency Department [address] [place] [address] Phone #: ext- [phone] 01/06/2020 19:14 Patient: DONNY FAITH Sex: M : 1955 Age: 64y PT/PTT: (ROSARIO: 01/06/2020 19:50) ( MsgRcvd 01/06/2020 20:22) Final results Test Result Flag [...] Prosthetic valve. Troponin-T: (ROSARIO: 01/06/2020 19:50) ( MsgRcvd 01/06/2020 20:33) Final results Test Result Flag Units (Reference) TROPONIN T <0.01 NG/ML (0.00 - 0.10) TROPONIN T0.1 ng/ml Recommended as the clinical threshold value forTroponin T. CPK: (ROSARIO: 01/06/2020 19:50) ( MsgRcvd 01/06/2020 20:33) [...] was requested by: Denver Arreaga Reference #: [id number] Others' Prescriptions Patient Name: Donny FaithBirth Date: 1955 Address: [address] [place], [place] [address]Sex: Male Rx Written Rx Dispensed Drug Quantity Days Supply Prescriber Name Payment Method Dispenser 12/17/2019 12/17/2019 acetaminophen-cod #3 tablet 60 30 Rufus Ott MD Medicare [facility] 09/28/2019 10/15/2019 acetaminophen-cod #3 tablet 60 30 Rufus Ott MD Medicare [facility] 06/22/2019 06/25/2019 acetaminophen-cod #3 tablet 60 30 Rufus Ott MD Medicare [facility] 06/18/2019 06/19/2019 hydrocodone-acetaminophen 5-325 mg tablet 6 3 Orlando Leroy Medicare [facility] 05/25/2019 05/25/2019 acetaminophen-cod #3 tablet 60 30 Rufus Ott MD Medicare 6 Clinical Report - Physicians/Mid Levels [facility] Emergency Department [address] [place] [address] Phone #: ext- [phone] 01/06/2020 19:14 [id number] Sex: [facility] : 1955 Age: 64y [employer] 04/24/2019 04/24/2019 acetaminophen-cod #3 tablet 60 30 Rufus Ott MD Medicare [employer] 03/23/2019 03/23/2019 acetaminophen-cod #3 tablet 60 30 Rufus Ott MD Medicare [facility] 02/18/2019 02/18/2019 acetaminophen-cod #3 tablet 60 30 Rufus Ott MD Medicare [employer] [facility] Patient Name: Donny FaithBirth Date: 1955 Address: [address] [place] [id number]: Male Rx Written Rx Dispensed Drug Quantity Days Supply Prescriber Name Payment Method Dispenser 07/02/2019 07/02/2019 oxycodone-acetaminophen 5-325 mg tablet 30 15 Marybeth Morin (SUBCONTRACT MANAGER) Formerly [facility] Patient Name: Donny FaithBirth Date: 1955 Address: [address] [address]Tcx: Male Rx Written Rx Dispensed Drug Quantity Days Supply Prescriber Name Payment Method Dispenser 01/12/2019 01/17/2019 acetaminophen-cod #3 tablet 60 15 Rufus Ott MD Medicare [employer] * - Drugs marked with an asterisk [...] stumbling. 7 Clinical Report - Physicians/Mid Levels [facility] Emergency Department [address] [place] [address] Phone #: ext- [phone] 01/06/2020 19:14 Patient: [...] inhalation 2x a day. Advocate Insulin Pen [place]*. Aspir-81 Oral : Tablet Delayed Release 81 mg, 1 tablet daily. Basaglar* : 20 unita, at bedtime. [facility]* : [place]. Claritin Oral : Tablet Chewable 5 mg, [...] paper. 8 Clinical Report - Physicians/Mid Levels [facility] Emergency Department [address] [place] [address] Phone #: ext- [phone] 01/06/2020 19:14 Patient: [...] rce(s) Supporting Document(s) ID Date Data Source [id number] 01/06/2020 08:33:00 PM EDT [facility] Name Value Range Interpretation Code Description Data Raquel rce(s) Supporting Document(s) TROPONIN T <0.01 NG/ML 0.00 - 0.10 [facility] TROPONIN T0.1 ng/ml Recommended as the c linical threshold value forTroponin T. ID Date Data Source [id number] 01/06/2020 08:33:00 PM EDT [facility] Name Value Range Interpretation Code Description Data Raquel rce(s) Supporting Document(s) Creatine kinase [Enzymatic activity/volume] in Serum or Plasma 1 92 U/L 30 - 170 H [facility] ID Date Data Source [id number] 01/06/2020 08:33:00 PM EDT [facility] Name Value Range Interpretation Code Description Data Raquel rce(s) Supporting Document(s) COMPREHENSIVE METABOLIC PANEL [facility] COMPREHENSIVE METABOLIC PANEL Sodium [Moles/volume] in Serum or Plasma 134 mEq/L 134 - 153 [facility] Potassium [Moles/volume] in Serum or Plasma 3.6 mEq/L 3.6 - 5.0 [facility] Chloride [Moles/volume] in Serum or Plasma 96 mEq/L 98 - 107 L [facility] Carbon dioxide, total [Moles/volume] in Serum or Plasma 23 MEQ/L 22 - 30 [facility] Glucose [Mass/volume] in Serum or Plasma 262 MG/DL 65 - 110 H [facility] BUN 7 MG/DL 7 - [facility] Creat[facility] [Mass/volume] in Serum or Plasma 0.7 MG/DL 0.7 - 1.5 [facility] BUN/CREAT 10 8 - 27 [facility] Protein [Mass/volume] in Serum or Plasma 9.0 G/DL 6.3 - 8.2 H [facility] Albumin [Mass/volume] in Serum or Plasma 5.3 G/DL 3.9 - 5.0 H [facility] Globulin [Mass/volume] in Serum by calculation 3.7 GM/DL 2.4 - 3.2 H [facility] A/G RATIO 1.4 0.8 - 2.0 [facility] Calcium [Mass/volume] in Serum or Plasma 10.0 MG/DL 8.4 - 10.2 [facility] Bilirubin.total [Mass/volume] in Serum or Plasma <0.7 MG/DL 0.2 - 1.3 [facility] Alkaline phosphatase [Enzymatic activity/volume] in Serum or Plasma 121 U/L 38 - 126 [facility] Aspartate aminotransferase [Enzymatic activity/volume] in Serum or Plasma 19 U/L 5 - 40 [facility] Alanine aminotransferase [Enzymatic activity/volume] in Seru m or Plasma 24 U/L 7 - 56 [facility] Anion gap 3 in Serum or Plasma 15.0 mmol/L 8.0 - 16.0 [facility] AGE 64 yrs [facility] al NON-AA GFR >60 mL/min [facility] ital AFR AMER GFR >60 mL/min [facility] spital Male GFR In terprentation 20-49 [...] >32 mL/min Normal ID Date Data Source [id number] 01/06/2020 08:22:00 PM EDT [facility] Name Value Range Interpretation Code Description Data Raquel rce(s) Supporting Document(s) Prothrombin time (PT) 13.2 SECONDS 11.0 - 15.5 [facility] INR in Platelet poor plasma by Coagulation assay 0.99 0.93 - 1. 23 [facility] aPTT in Blood by Coagulation assay 30.0 SECONDS 24.8 - 36.7 [facility] \\BLDo\\INR INTERPRETATION\\BLDx\\ Therapeutic range for Coumadin and related oral anticoagulants. - International Normalized Ratio (INR): 2.0 - 3.0 for Venous Thrombosis, Pulmonary Embolus, Tissue heart valves, Acute MN Atrial Fibrillation, Valvular heart disease and recurrent Systemic Embolism. - International Normalized Ratio (INR): 2.5 - 3.5 for Mechanical Prosthetic valve. ID Date Data Source [id number] 01/06/2020 08:14:00 PM EDT [facility] Name Value Range Interpretation Code Description Data Raquel rce(s) Supporting Document(s) CBC W/AUTOMATED DIFF [facility] COMPLETE BLOOD COUNT Leukocytes [#/volume] in Blood by Automated count 6.7 10^3/uL 4.2 - 1 1.0 [facility] Erythrocytes [#/volume] in Blood by Automated count 4.95 10^6/uL 4. 50 - 6.30 [facility] Hemoglobin [Mass/volume] in Blood 15.1 g/dL 14.0 - 16.0 [facility] Hematocrit [Volume Fraction] of Blood by Automated count 43.6 % 4 1.0 - 51.0 [facility] Erythrocyte mean corpuscular volume [Entitic volume] by Auto mated count 88.1 fL 80.0 - 94.0 [facility] Erythrocyte mean corpuscular hemoglobin [Entitic mass] by Automated count 30.5 pg 27.0 - 34.0 [facility] Erythrocyte mean corpuscular hemoglobin concentration [Mass/volume] by Automated count 34.6 g/dL 31.0 - 36.0 [facility] Erythrocyte distribution width [Ratio] by Automated count 14.1 % 11.5 - 14.8 [facility] Platelets [#/volume] in Blood by Automated count 266 10^3/uL 150 - 45 0 [facility] Platelet mean volume [Entitic volume] in Blood by Automated count 9.3 fL 7.4 - 10.4 [facility] Neutrophils/100 leukocytes in Blood by Automated count 37.3 % 37. 0 - 80.0 [facility] Lymphocytes/100 leukocytes in Blood by Manual count 49.5 % 25.0 - 40.0 H [facility] Monocytes/100 leukocytes in Blood by Automated count 8.0 % 3.0 - 8.0 [facility] Eosinophils/100 leukocytes in Blood by Automated count 4.0 % 0.0 - 7.0 [facility] Basophils/100 leukocytes in Blood by Automated count 0.9 % 0.0 - 2.0 [facility] %IG 0.3 % 0.0 - 0.0 H [facility] al %NRBC 0.0 % 0.0 - 0.0 [facility] al Neutrophils [#/volume] in Blood by Automated count 2.51 10^3/uL 2.00 - 6.90 [facility] Lymphocytes [#/volume] in Blood by Automated count 3.33 10^3/uL 0.60 - 3.40 [facility] Monocytes [#/volume] in Blood by Automated count 0.54 10^3/uL 0.00 - 0.90 [facility] Eosinophils [#/volume] in Blood by Automated count 0.27 10^3/uL 0.00 - 0.70 [facility] Basophils [#/volume] in Blood by Automated count 0.06 10^3/uL 0.00 - 0.20 [facility] #IG 0.02 10^3/uL 0.00 - 0.10 [facility] ospital #NRBC 0.00 10^3/uL 0.00 - 0.00 [facility] osp[facility] MANUAL DIFF NOT INDICATED [facility] RBC MORPH NOT INDICATED [facility] spital ID Date Data Source [id number] 11/13/2019 10:57:00 AM EDT [facility] Name: DONNY FAITH : 1955 Age: 64 MR#: [id number] Admit Date: 11/10/19 Provider: Hao Vallejo Room #: 291 Consulting Provider: Dictation Date: 11/13/19 Discharge Summary Discharge Summary Admit Info/Diagnoses/Course Admission Information: Patient, DONNY FAITH, a 64 year old M, admitted on 11/10/19 18:18 by Jaylon Baird MD for B RIB FX, SYNCOPE Family Guevara Carrasquillo MD Mr. Faith is a 64-year-old white male whom we have been treating for pain control after a fall whichbroke bilateral posterior ribs. He initially presented to the emergency department at [facility] on 11/09 after a fall and possible syncope. CT at [place] was negative for acute hemorrhage, but bilateral [...] home. Vital signs today: Temp 97.3 F, WA 88, RR 20, BP 110/69 Most recent [...] not indicated. This note was dictated using [employer] voice recognition software. Most Recent Lab Results: [...] % (Auto) 58.9, Lymph % (Auto) 27.3, [place] % (Auto) 10.0, Eos % (Auto) 2.8, [...] MD for B RIB FX, SYNCOPE Family Guevara Carrasquillo MD Mr. Faith is a 64-year-old white male whom we have been treating for pain control after a fall whichbroke bilateral posterior ribs. He initially presented to the emergency department at [facility] on 11/09 after a fall and possible syncope. CT at [place] was negative for acute hemorrhage, but bilateral [...] home. Vital signs today: Temp 97.3 F, WA 88, RR 20, BP 110/69 Most recent [...] not indicated. This note was dictated using [employer] voice recognition software. Exam Condition Vital Signs [...] Pulmonary Disease) (DC) Medications Home Medications Geronimoagldavi GarciaPen U-100 Insulin 20 unit SUBCUT HS 11/10/19 [History] Eliquis 5 mg PO BID 11/10/19 [History] acetaminophen- codeine 1 tab PO BID 11/10/19 [History] albuterol sulfate [Ventolin HFA] 2 puff INHALATION PRN PRN 11/10/19 [History] aspirin 81 mg PO DAILY 11/10/19 [History] cyclobenzaprine 10 mg PO ,,11/10/19 [History] diltiazem HCl [DILT-XR] 240 mg PO [...] hydroxyzine HCl 25 mg PO ,,11/11/19 [History] oxycodone 5 mg PO BID PRN [...] Glucose 272 H 237 H 226 H 07/30/20 07/30/20 07/30/20 07:03 11:20 11:32 POC Glucose 237 H [...] cyclobenzaprine 10 mg tablet 10 mg PO , RF: 0 fluticasone propion-salmeterol [Advair Diskus] 250-50 [...] gabapentin 300 mg capsule 300 mg PO RF: 0 ramipril 1.25 mg capsule 1.25 [...] HCl 25 mg tablet 25 mg PO 08,12,20 RF: 0 digoxin 125 mcg (0.125 mg) tablet 125 mcg PO Q8AM RF: 0 Held acetaminophen-codeine 300-30 mg tablet 1 tab PO BID RF: 0 Hold Instructions: Resume on 11/21/19. Hold while taking oxydocone Discharge Education Printouts: Apixaban (By mouth), Heart Failure (DC), COPD (Chronic Obstructive Pulmonary Disease) (DC) Follow Up Visit/Referrals: Guevara Ott MD [Primary Care Provider] - 1 [...] rce(s) Supporting Document(s) ID Date Data Source [id number] 11/13/2019 05:40:00 AM EDT [facility] Name Value Range Interpretation Code Description Data Raquel rce(s) Supporting Document(s) Leukocytes [#/volume] in Blood by Automated count 9.3 10*3/uL 4.45-10 .71 [facility] Erythrocytes [#/volume] in Blood by Automated count 4.35 10*6/uL 4.3- 6.1 N [facility] Hemoglobin [Moles/volume] in Blood 13.5 g/dL 13-18 N [facility] Hematocrit [Volume Fraction] of Blood by Automated count 38.9 % 42-52 Below low normal [facility] Erythrocyte mean corpuscular volume [Ent itic volume] in Cord blood by Automated count 89.4 fL 80-96 N [facility] ital Erythrocyte mean corpuscular hemoglobin [Entitic mass] by Automated count 31.0 pg 27-31 [facility] E[facility] mean corpuscular hemoglobin concentration [Mass/volume] in Cord blood 34.7 g/dL 33-37 [facility] ital Erythrocyte distribution width [Entitic volume] by Automated count 14 % 11-15 N [facility] Platelets [#/volume] in Blood by Automated count 226 10*3/uL 130-472 N [facility] Platelet mean volume [Entitic volume] in Blood 9.1 fL 9.1-13.1 N [facility] Neutrophils/100 leukocytes in Blood by Automated count 58.9 % 41- 77 [facility] Neutrophils [#/volume] in Blood by Automated count 5.5 U 1.7-7.6 [facility] Lymphocytes/100 leukocytes in Blood by Automated count 27.3 % 14- 46 [facility] Lymphocytes [#/volume] in Blood by Automated count 2.5 U 0.6-4.6 [facility] Monocytes/100 leukocytes in Blood by Automated count 10.0 % 4-12 [facility] Monocytes [#/volume] in Blood by Automated count 0.9 U 0.2-1.2 [facility] Eosinophils/100 leukocytes in Blood by Automated count 2.8 % 0-7 [facility] Eosinophils [#/volume] in Blood by Automated count 0.3 U 0.0-0.5 [facility] Basophils/100 leukocytes in Blood by Automated count 0.8 % 0.4-1 .3 [facility] Basophils [#/volume] in Blood by Automated count 0.1 U 0.0-0.2 [facility] NUCLEATED RED BLOOD CELL 0 % [facility] NUCLEATED RED BLOOD CELL# 0 U [facility] Immature granulocytes [Presence] in Blood by Automated count 0-2 [facility] Immature granulocytes [#/volume] in Blood by Automated count 0.0 U 0-0.1 [facility] Manual Differential panel - Blood NO [facility] ID Date Data Source [id number] 11/13/2019 06:17:00 AM EDT [facility] Name Value Range Interpretation Code Description Data Raquel rce(s) Supporting Document(s) Urea nitrogen [Mass/volume] in Serum or Plasma 16 mg/dL 9-23 [facility] Sodium [Moles/volume] in Serum or Plasma 137 mmol/L 132-146 [facility] Potassium [Moles/volume] in Serum or Plasma 3.8 mmol/L 3.5-5.5 [facility] Chloride [Moles/volume] in Serum or Plasma 107 mmol/L 99-109 [facility] Carbon dioxide, total [Moles/volume] in Serum or Plasma 25 mmol/L 20 -31 [facility] Anion gap in Serum or Plasma 9 mmol/L 8-16 [facility] Glucose [Mass/volume] in Serum or Plasma 254 mg/dL 74-106 Above high normal [facility] Creatinine 0.8 mg/dL 0.5-1.1 [facility] Glomerular filtration rate/1.73 sq M.pre dicted [Volume Rate/Area] in Serum or Plasma Greater Than 60 ABOVE 60 [facility] Alanine aminotransferase [Enzymatic acti vity/volume] in Serum or Plasma by With P-5'-P 20 U/L 10-49 [facility] ital Aspartate aminotransferase [Enzymatic ac tivity/volume] in Serum or Plasma by With P-5'-P 14 U/L 0-33 N [facility] pital Alkaline phosphatase [Enzymatic activity/volume] in Serum or Plasma 84 U/L 45-129 [facility] Calcium [Mass/volume] in Serum or Plasma 8.7 mg/dL 8.5-10.1 [facility] Bilirubin.total [Mass/volume] in Serum or Plasma 0.4 mg/dL 0.3-1.2 [facility] Albumin [Mass/volume] in Serum or Plasma by Bromocresol purple (BCP) dye binding method 3.2 g/dL 3.2-4.8 [facility] ital Protein [Mass/volume] in Serum or Plasma 6.8 g/dL 5.7-8.2 [facility] ID Date Data Source [id number] 11/12/2019 06:53:00 PM EDT [facility] Name: DONNY FAITH : 1955 Age: 64 MR#: [id number] Admit Date: 11/10/19 Provider: Hao Vallejo Room #: 291 Consulting Provider: Dictation Date: 11/12/19 ProgressNote ADDENDUM: Dictation correction: Assessment and plan item #1 should read "non-displaced per radiologist." Here is the radiologist's impression of CXR on 11/11/19: "No displaced rib fracture. Recommend comparison with prior outside study." Dictated by: <Electronically signed by Hao VERDE> 11/13/19716 Addendum Cosigners: <Electronically signed by Michael Oswald MD> 11/13/19799 [facility] 11/13/19716 [facility] 11/13/19716 CC: Subjective-ROS Date of service Date of service:: 11/12/19 Review of Systems Attestation/Length Of Stay: Patient is a pleasant 64-year-old male whom we are following status post bilateral posterior lateral rib fractures. He presented to the ED at [facility] on November 09 after a fall, possibly [...] Admit to Inpatient, Acute [STATUS] [facility] Primary diagnosis: B Rib Fracture, Syncope Admitting [...] % (Auto) 51.0, Lymph % (Auto) 34.1, [place] % (Auto) 11.7, Eos % (Auto) 2.5, [...] rce(s) Supporting Document(s) ID Date Data Source [id number] 11/16/2019 07:07:00 PM EDT [facility] Name Value Range Interpretation Code Description Data Raquel rce(s) Supporting Document(s) Levetiracetam (Keppra) Level 9.5 ug/mL 10.0-40.0 [facility] This test was developed and its performa nce characteristicsdetermined by [employer]. It has not been cleared orapproved by the Food and Drug Administration.Performed at: [address] [id number] Director: Neal Morris MD, Phone: [phone] ID Date Data Source [id number] 11/16/2019 07:07:00 PM EDT [facility] Name Value Range Interpretation Code Description Data Raquel rce(s) Supporting Document(s) Topiramate [Mass/volume] in Serum or Plasma 3.5 ug/mL 2.0-25.0 [facility] This test was developed and its performa nce characteristicsdetermined by [email or web address]. It has not been cleared orapproved by the Food and Drug Administration. Detection Limit = 1.0Performed at: [facility] [address] [id number] Director: Neal Morris MD, Phone: [phone] ID Date Data Source [id number] 11/12/2019 05:41:00 AM EDT [facility] Name Value Range Interpretation Code Description Data Raquel rce(s) Supporting Document(s) Leukocytes [#/volume] in Blood by Automated count 8.1 10*3/uL 4.45-10 .71 [facility] Erythrocytes [#/volume] in Blood by Automated count 4.22 10*6/uL 4.3-6.1 Below low normal [facility] Hemoglobin [Moles/volume] in Blood 13.1 g/dL 13-18 [facility] Hematocrit [Volume Fraction] of Blood by Automated count 37.5 % 42-52 Below low normal [facility] Erythrocyte mean corpuscular volume [Ent itic volume] in Cord blood by Automated count 88.9 fL 80-96 [facility] ital Erythrocyte mean corpuscular hemoglobin [Entitic mass] by Automated count 31.0 pg 27-31 [facility] E[facility]rocyte mean corpuscular hemoglobin concentration [Mass/volume] in Cord blood 34.9 g/dL 33-37 [facility] ital Erythrocyte distribution width [Entitic volume] by Automated count 14 % 11-15 [facility] Platelets [#/volume] in Blood by Automated count 219 10*3/uL 130-472 [facility] Platelet mean volume [Entitic volume] in Blood 9.0 fL 9.1-13. 1 Below low normal [facility] Neutrophils/100 leukocytes in Blood by Automated count 51.0 % 41- 77 [facility] Neutrophils [#/volume] in Blood by Automated count 4.1 U 1.7-7.6 [facility] Lymphocytes/100 leukocytes in Blood by Automated count 34.1 % 14- 46 [facility] Lymphocytes [#/volume] in Blood by Automated count 2.8 U 0.6-4.6 [facility] Monocytes/100 leukocytes in Blood by Automated count 11.7 % 4-12 [facility] Monocytes [#/volume] in Blood by Automated count 1.0 U 0.2-1.2 [facility] Eosinophils/100 leukocytes in Blood by Automated count 2.5 % 0-7 [facility] Eosinophils [#/volume] in Blood by Automated count 0.2 U 0.0-0.5 [facility] Basophils/100 leukocytes in Blood by Automated count 0.5 % 0.4-1 .3 [facility] Basophils [#/volume] in Blood by Automated count 0.0 U 0.0-0.2 [facility] NUCLEATED RED BLOOD CELL 0 % [facility] NUCLEATED RED BLOOD CELL# 0 U [facility] Immature granulocytes [Presence] in Blood by Automated count 0-2 [facility] Immature granulocytes [#/volume] in Blood by Automated count 0.0 U 0-0.1 [facility] Manual Differential panel - Blood NO [facility] ID Date Data Source [id number] 11/12/2019 06:22:00 AM EDT [facility] Name Value Range Interpretation Code Description Data Raquel rce(s) Supporting Document(s) Urea nitrogen [Mass/volume] in Serum or Plasma 14 mg/dL 9-23 [facility] Sodium [Moles/volume] in Serum or Plasma 133 mmol/L 132-146 [facility] Potassium [Moles/volume] in Serum or Plasma 3.3 mmol/L 3.5-5.5 Below low normal [facility] Chloride [Moles/volume] in Serum or Plasma 102 mmol/L 99-109 [facility] Carbon dioxide, total [Moles/volume] in Serum or Plasma 24 mmol/L 20 -31 N [facility] Anion gap in Serum or Plasma 10 mmol/L 8-16 N [facility] Glucose [Mass/volume] in Serum or Plasma 262 mg/dL 74-106 Above high normal [facility] Creatinine 0.7 mg/dL 0.5-1.1 N [facility] Glomerular filtration rate/1.73 sq M.pre dicted [Volume Rate/Area] in Serum or Plasma Greater Than 60 ABOVE 60 [facility] Alanine aminotransferase [Enzymatic acti vity/volume] in Serum or Plasma by With P-5'-P 20 U/L 10-49 [facility] ital Aspartate aminotransferase [Enzymatic ac tivity/volume] in Serum or Plasma by With P-5'-P 11 U/L 0-33 N [facility] pital Alkaline phosphatase [Enzymatic activity/volume] in Serum or Plasma 89 U/L 45-129 [facility] Calcium [Mass/volume] in Serum or Plasma 8.7 mg/dL 8.5-10.1 [facility] Bilirubin.total [Mass/volume] in Serum or Plasma 0.4 mg/dL 0.3-1.2 [facility] Albumin [Mass/volume] in Serum or Plasma by Bromocresol purple (BCP) dye binding method 3.1 g/dL 3.2-4.8 Below low normal [facility] Protein [Mass/volume] in Serum or Plasma 6.6 g/dL 5.7-8.2 [facility] ID Date Data Source [id number] 11/11/2019 02:48:00 PM EDT [facility] [address] [id number] [phone] NAME SEX PT STATUS ACCOUNT NUMBER DONNY FAITH ADM IN [id number] ORDERING PHYSICIAN LOCATION MEDICAL RECORD NO. Enriquez AMMON TorresCurtis EW [id number] ATTENDING PHYSICIAN DATE OF DATE OF EXAM/TIME Guevara Ott MD 1955 11/11/191433 TYPE / EXAM [...] 1455 Date Time CC: Fred Queen MD; Guevara Ott MD Techn: DORIS Cuevas Dt/Tm: Trans by: DT Prt Dt/Tm: : Total DLP = 0.00 mGy-cm : Total Radiation Dose = 0.0000 mSv Lifetime Dose: 0 mSv Name Value Range Interpretation Code Description Data Raquel rce(s) Supporting Document(s) ID Date Data Source [id number] 11/11/2019 01:56:00 PM EDT [facility] Therapy Department FAITHDONNY Radha : 1955 [id number] Attending: Jaylon Baird MD OT Inpatient Evaluation [...] a 64 y/o male who presented from [facility] with bilateral rib fx secondary to a [...] Level of Function:: Patient lives alone in [facility] apartments. Pt uses elevator to get [...] rce(s) Supporting Document(s) ID Date Data Source [id number] 11/11/2019 11:48:00 AM EDT [facility] [address] [place] [address] PHONE: [phone] FAX: [phone] Name .................. : DIMA Garcia Acct Number.................. : [id number] ROOM. ................. : [address] Number ................... : [id number] Stay type ............. : E/R Discharge Date......... ... : 11/10/19 Admit Date ......... : 11/10/19 Admit Phys .................... : MITCHELL CHUN Date of ....... : 1955 Family Phys ................... : TRU ANDINOTarik Phone .................. : [phone] Age ................................ : 64 Film# .................. .:[id number] Sex ................................. : M Unsigned transcriptions are preliminary reports and do not represent a medical or legal document CT ABD & PELVIS W/ IV ONLY [id number] COMPLETE:11/10/19 15:11 [facility] [address] Reason(s): Tr auma/Injury CT SCAN OF THE [...] and Signed By Page [address] of 2 [place] [address] PHONE: [phone] FAX: [phone] Name .................. : DIMA Garcia Acct Number.................. : [id number] ROOM. ................. : TR-08 Number ................... : [id number] Stay type ............. : E/R Discharge Date......... ... : 11/10/19 Admit Date ......... : 11/10/19 Admit Phys .................... : MITCHELL CHUN Date of ....... : 1955 Family Phys ................... : TRU WATERMAN Phone .................. : [phone] Age ................................ : 64 Film# .................. .:[id number] Sex ................................. : M Unsigned transcriptions are preliminary reports and do not represent a medical or legal document CT ABD & PELVIS W/ IV ONLY [id number] COMPLETE:11/10/19 15:11 [facility] [address] Reason(s): Trauma/Injury DERREK PHAN MD , 11/11/19 11:48, [facility] Transcribe Initials: CHELLY , Transcribe Date: 11/11/19 00:41, Dictation Date: Copy for: YOHAN HOLT via fax Copy for: MITCHELL Kaiser via fax Copy for: EMERGENCY DEPT via platterm Copy for: 710 MED REC DISCHARGED Page 2 of 2 Name Value Range Interpretation Code Description Data Raquel rce(s) Supporting Document(s) ID Date Data Source [id number] 11/11/2019 11:47:00 AM EDT [facility] [address] [place] [address] PHONE: [phone] FAX: [phone] Name .................. : DIMA Garcia Acct Number.................. : [id number] ROOM. ................. : TR08 MR Number ................... : [id number] Stay type ............. : E/R Discharge Date......... ... : 11/10/19 Admit Date ......... : 11/10/19 Admit Phys .................... : MITCHELL CHUN Date of ....... : 1955 Family Phys ................... : Vilynx Phone .................. : [phone] Age ................................ : 64 Film# .................. .:[id number] Sex ................................. : M Unsigned transcriptions are preliminary reports and do not represent a medical or legal document CT HEAD W/O CONTRAST [id number] COMPLETE:11/10/19 15:11 [facility] [address] Reason (s): Syncope CT SCAN OF THE [...] By DERREK PHAN MD , 11/11/19 11:47, [facility] [address] [place] [address] PHONE: [phone] FAX: [phone] Name .................. : DIMA Garcia Acct Number.................. : [id number] ROOM. ................. : TR-08 MR Number ................... : [id number] Stay type ............. : E/R Discharge Date......... ... : 11/10/19 Admit Date ......... : 11/10/19 Admit Phys .................... : [facility] CHUN Date of ....... : 1955 Family Phys ................... : TRU WATERMAN Phone .................. : [phone] Age ................................ : 64 Film# .................. .:[id number] Sex ................................. : M Unsigned transcriptions are preliminary reports and do not represent a medical or legal document CT HEAD W/O CONTRAST [id number] COMPLETE:11/10/19 15:11 [facility] [address] Reason(s): Syncope Transcribe Initials: DZ , Transcribe Date: 11/11/19 05:24, Dictation Date: Copy for: YOHAN HOLT via fax Copy for: MITCHELL EDUIN Kaiser via fax Copy for: EMERGENCY DEPT via modem Copy for: 710 MED REC DISCHARGED Page 2 of 2 Name Value Range Interpretation Code Description Data Raquel rce(s) Supporting Document(s) ID Date Data Source [id number] 11/11/2019 11:44:00 AM EDT [facility] [address] [place] [address] PHONE: [phone] FAX: [phone] Name .................. : DIMA Garcia Acct Number.................. : [id number] ROOM. ................. : TR-08 MR Number ................... : [id number] Stay type ............. : E/R Discharge Date......... ... : 11/10/19 Admit Date ......... : 11/10/19 Admit Phys .................... : MITCHELL CHUN Date of ....... : 1955 Family Phys ................... : OTT GUEVARA Phone .................. : [phone] Age ................................ : 64 Film# .................. .:[id number] Sex ................................. : M Unsigned transcriptions are preliminary reports and do not represent a medical or legal document CT THORAX W/CONTRAST 88906 COMPLETE:11/10/19 15:11 [facility] [address] Reason(s): L back/flank pain s/p syncope with [...] By DERREK PHAN MD , 11/11/19 11:44, [facility] Transcribe Initia ls: CHELLY , Transcribe Date: 11/11/19 00:39, Dictation Date: Copy for: YOHAN HOLT via fax Copy for: MITCHELL Kaiser via fax Copy for: EMERGENCY DEPT via [facility] Copy for: 710 MED REC DISCHARGED Page 1 of 1 Name Value Range Interpretation Code Description Data Raquel rce(s) Supporting Document(s) ID Date Data Source [id number] 11/11/2019 11:44:00 AM EDT [facility] [address] [place] [address] PHONE: [phone] FAX: [phone] Name .................. : DIMA Garcia Acct Number.................. : [id number] ROOM. ................. : TR-08 MR Number ................... : [id number] Stay type ............. : E/R Discharge Date......... ... : 11/10/19 Admit Date ......... : 11/10/19 Admit Phys .................... : MITCHELL CHUN Date of ....... : 1955 Family Phys ................... : TRU WATERMAN Phone .................. : [phone] Age ................................ : 64 Film# .................. .:[id number] Sex ................................. : M Unsigned transcriptions are preliminary reports and do not represent a medical or legal document CT CERV SPINE W/O CONTRAS [id number] COMPLETE:11/10/19 15:11 [facility] [address] Reason(s): syncope CT SCAN OF THE CERVICAL [...] By DERREK PHAN MD , 11/11/19 11:44, [facility] Transcribe Initials: DZ , Transcribe Date: 11/11/19 00:31, Dictation Date: Copy for: YOHAN HOLT via fax Copy for: MITCHELL Kaiser via fax Copy for: EMERGENCY DEPT via modem Copy for: 710 MED REC DISCHARGED Page 1 of 1 Name Value Range Interpretation Code Description Data Raquel rce(s) Supporting Document(s) ID Date Data Source [id number] 11/11/2019 12:29:00 PM EDT [facility] Name Value Range Interpretation Code Description Data Raquel rce(s) Supporting Document(s) Digoxin [Mass/volume] in Serum or Plasma 0.5 ng/mL 0.8-2.0 Below low normal [facility] ID Date Data Source [id number] 11/11/2019 10:52:00 AM EDT [facility] [address], [place] [id number] [phone] NAME SEX PT STATUS ACCOUNT NUMBER DONNY FAITH ADM IN [id number] ORDERING PHYSICIAN LOCATION MEDICAL RECORD NO. Enriquez [facility] [id number] ATTENDING PHYSICIAN DATE OF DATE OF EXAM/TIME Guevara Ott MD 1955 11/11/19 / 1035 TYPE / EXAM US Echo complete REASON [...] File>> Date Time CC: Gulshan Grigsby M.D.; Guevara Ott MD Techn: BUSMI Trans Dt/Tm: 11/11/19 1126 Trans by: MIGUEL Prt Dt/Tm: 2309: Total DLP = 0.00 mGy-cm : Total Radiation Dose = 0.0000 mSv Lifetime Dose: 0 mSv Name Value Range Interpretation Code Description Data Raquel rce(s) Supporting Document(s) ID Date Data Source [id number] 11/11/2019 10:36:00 AM EDT [facility] [address] [id number] [phone] NAME SEX PT STATUS ACCOUNT NUMBER DONNY FAITH ADM IN [id number] ORDERING PHYSICIAN LOCATION MEDICAL RECORD NO. Enriquez AMMON [facility] [id number] ATTENDING PHYSICIAN DATE OF DATE OF EXAM/TIME Doctor Provided,No Family 1955 11/11/19 / 1029 TYPE / EXAM Xray Chest 2 view [...] Signed By Fred Queen MD on 11/11/19 104 Date Time CC: Fred Queen MD; No Family PHYS Provided Techn: BAKLE Trans Dt/Tm: Trans by: DT Prt Dt/Tm: : Total DLP = 0.00 mGy-cm Fluoroscopy Time (in secs): Name Value Range Interpretation Code Description Data Raquel rce(s) Supporting Document(s) ID Date Data Source [id number] 11/11/2019 10:12:00 AM EDT [facility] [address] [id number] [phone] NAME SEX PT STATUS ACCOUNT NUMBER DONNY FAITH ADM IN [id number] ORDERING PHYSICIAN LOCATION MEDICAL RECORD NO. Mina Deng [id number] ATTENDING PHYSICIAN DATE OF DATE OF EXAM/TIME Doctor Provided,No Family 1955 11/11/191004 TYPE / EXAM US Carotid art complete [...] rce(s) Supporting Document(s) ID Date Data Source [id number] 11/11/2019 09:49:00 AM EDT [facility] DONNY FAITH : 1955 Date: 11/11/19 [id number] Pharmacy Safety Note - Review Chart Review: [...] (Duoneb) 3 ml NEB RTBID (1100, 1500) [facility] Arformoterol Tartrate (Brovana 15 Mcg/Amp) 15 mcg NEB RTBID (0700,1900) [facility] Last Admin: 11/11/19 07:07 Dose: 15 mcg Documented by: Aspirin (Ecotrin) 81 mg PO DAILY [facility] Atorvastatin Calcium (Atorvastatin Calcium) 20 mg PO HS [facility] Budesonide (Pulmicort 0.5mg) 0.5 mg NEB RTBID (0700,1900) [facility] Last Admin: 11/11/19 07:07 Dose: 0.5 mg Documented by: Cetirizine HCl (Zyrtec) 5 mg PO DAILY [facility] Digoxin (Lanoxin) 0.125 mg PO 0800 [facility] Diltiazem HCl (Cardizem) 240 mg PO DAILY [facility] Fluoxetine HCl (Prozac) 10 mg PO DAILY [facility] Gabapentin (Neurontin) 300 mg PO Q8HR [facility] Glimepiride (Amaryl) 4 mg PO BID@0800,2000 [facility] Last Admin: 11/11/19 07:18 Dose: 4 mg Documented by: Insulin Glargine (Lantus) 20 units SQ HS [facility] Insulin Human Lispro (Humalog) 0 units SQ AC HS/SLIDING SCALE [facility] Last Admin: 11/11/19 07:20 Dose: 6 units Documented by: Levetiracetam (Keppra) 500 mg PO BID [facility] Lisinopril (Zestril) 2.5 mg PO DAILY [facility] Morphine Sulfate (Morphine Sulfate) 2 mg IVP Q4H PRN PRN Reason: PAIN, SEVERE (SCORE 7-10/10) Stop: 11/17/19 18:41 Last Admin: 11/11/19 05:15 Dose: 2 mg Documented by: Oxycodone/Acetaminophen (Percocet 5/325) 1 tab PO Q6H PRN PRN Reason: PAIN, MODERATE (SCORE 4-6/10) Stop: 11/17/19 18:41 Last Admin: 11/11/19 01:54 Dose: 1 tab Documented by: Pantoprazole Sodium (Protonix) 40 mg PO DAILY@0700 [facility] Last Admin: 11/11/19 07:19 Dose: 40 mg Documented by: Topiramate (Topamax) 50 mg PO BID [facility] Trazodone HCl (Desyrel) 100 mg PO HS [facility] Last Admin: 11/10/19 22:43 Dose: 100 mg [...] DAILY 11/10/19 [History] cyclobenzaprine 10 mg PO ,,11/10/19 [History] diltiazem HCl [DILT-XR] 240 mg PO [...] rce(s) Supporting Document(s) ID Date Data Source [id number] 11/11/2019 09:28:00 AM EDT [facility] Therapy Department DONNY FAITH : 1955 Date: 11/12/19 [id number] Attending: Jaylon Baird MD Physical Therapy Inpatient [...] multiple rib fractures. Patient reports his painis 10/10. He also reports his furniture was taken [...] at home due to this. Spoke to family welfare social work professor in regards to patient's living conditions. Patient [...] 0928 I certify this plan of care CosJaylon Yang MD 11/12/19 0959 Date Time LAST EDIT: Name Value Range Interpretation Code Description Data Raquel rce(s) Supporting Document(s) ID Date Data Source [id number] 11/11/2019 07:22:00 AM EDT [facility] Name: Donny Faith : 1955 Age: 64 MR#: [id number] Admit Date: 11/10/19 Provider: Jaylon Baird MD [...] Admit to Inpatient, Acute [STATUS] Routine Location: [facility] Primary diagnosis: B Rib Fracture, Syncope Admitting [...] 20:19 97 Intake Output Last 24 Hours 07/2 7/20 07/28/20 07/29/20 23:59 23:59 23:59 Intake Total 1140 / [...] 11/10/19 22:05: Creatine Kinase 93 11/10/19 22:05: Rql-I-Ybielakwqcc Pept 23.00 11/10/19 22:05: Troponin I Less than 0.015 11/11/19 06:29: WBC 9.5, RBC 4.74, Hgb 14.8, Hct 42.3, MCV 89.2, MCH 31.2 H, MCHC 35.0, RDW 14, Plt Count 237, MPV 9.2, Immature Gran % (Auto) 0.2, Neut % (Auto) 62.7, Lymph % (Auto) 25.8, [place] % (Auto) 7.7, Eos % (Auto) 2.9, [...] rce(s) Supporting Document(s) ID Date Data Source [id number] 11/11/2019 06:39:00 AM EDT [facility] Name Value Range Interpretation Code Description Data Raquel rce(s) Supporting Document(s) Leukocytes [#/volume] in Blood by Automated count 9.5 10*3/uL 4.45-10 .71 [facility] Erythrocytes [#/volume] in Blood by Automated count 4.74 10*6/uL 4.3- 6.1 N [facility] Hemoglobin [Moles/volume] in Blood 14.8 g/dL 13-18 N [facility] Hematocrit [Volume Fraction] of Blood by Automated count 42.3 % 4 2-52 N [facility] Erythrocyte mean corpuscular volume [Ent itic volume] in Cord blood by Automated count 89.2 fL 80-96 N [facility] ital Erythrocyte mean corpuscular hemoglobin [Entitic mass] by Automated count 31.2 pg 27-31 Above high normal [facility] spital Erythrocyte mean corpuscular hemoglobin concentration [Mass/volume] in Cord blood 35.0 g/dL 33-37 N [facility] ital Erythrocyte distribution width [Entitic volume] by Automated count 14 % 11-15 N [facility] Platelets [#/volume] in Blood by Automated count 237 10*3/uL 130-472 N [facility] Platelet mean volume [Entitic volume] in Blood 9.2 fL 9.1-13.1 [facility] Neutrophils/100 leukocytes in Blood by Automated count 62.7 % 41- 77 [facility] Neutrophils [#/volume] in Blood by Automated count 5.9 U 1.7-7.6 [facility] Lymphocytes/100 leukocytes in Blood by Automated count 25.8 % 14- 46 [facility] Lymphocytes [#/volume] in Blood by Automated count 2.4 U 0.6-4.6 [facility] Monocytes/100 leukocytes in Blood by Automated count 7.7 % 4-12 [facility] Monocytes [#/volume] in Blood by Automated count 0.7 U 0.2-1.2 [facility] Eosinophils/100 leukocytes in Blood by Automated count 2.9 % 0-7 [facility] Eosinophils [#/volume] in Blood by Automated count 0.3 U 0.0-0.5 [facility] Basophils/100 leukocytes in Blood by Automated count 0.7 % 0.4-1 .3 [facility] Basophils [#/volume] in Blood by Automated count 0.1 U 0.0-0.2 [facility] NUCLEATED RED BLOOD CELL 0 % [facility] NUCLEATED RED BLOOD CELL# 0 U [facility] Immature granulocytes [Presence] in Blood by Automated count 0-2 [facility] Immature granulocytes [#/volume] in Blood by Automated count 0.0 U 0-0.1 [facility] Manual Differential panel - Blood [facility] ID Date Data Source [id number] 11/11/2019 06:58:00 AM EDT [facility] Name Value Range Interpretation Code Description Data Raquel rce(s) Supporting Document(s) Urea nitrogen [Mass/volume] in Serum or Plasma 17 mg/dL 9-23 [facility] Sodium [Moles/volume] in Serum or Plasma 136 mmol/L 132-146 [facility] Potassium [Moles/volume] in Serum or Plasma 3.8 mmol/L 3.5-5.5 [facility] Chloride [Moles/volume] in Serum or Plasma 104 mmol/L 99-109 [facility] Carbon dioxide, total [Moles/volume] in Serum or Plasma 27 mmol/L 20 -31 [facility] Anion gap in Serum or Plasma 9 mmol/L 8-16 [facility] Glucose [Mass/volume] in Serum or Plasma 259 mg/dL 74-106 Above high normal [facility] Creatinine 0.7 mg/dL 0.5-1.1 [facility] Glomerular filtration rate/1.73 sq M.pre dicted [Volume Rate/Area] in Serum or Plasma Greater Than 60 ABOVE 60 [facility] Alanine aminotransferase [Enzymatic acti vity/volume] in Serum or Plasma by With P-5'-P 21 U/L 10-49 [facility] ital Aspartate aminotransferase [Enzymatic ac tivity/volume] in Serum or Plasma by With P-5'-P 12 U/L 0-33 [facility] pital Alkaline phosphatase [Enzymatic activity/volume] in Serum or Plasma 99 U/L 45-129 [facility] Calcium [Mass/volume] in Serum or Plasma 9.4 mg/dL 8.5-10.1 [facility] Bilirubin.total [Mass/volume] in Serum or Plasma 0.4 mg/dL 0.3-1.2 [facility] Albumin [Mass/volume] in Serum or Plasma by Bromocresol purple (BCP) dye binding method 3.7 g/dL 3.2-4.8 [facility] ital Protein [Mass/volume] in Serum or Plasma 7.8 g/dL 5.7-8.2 [facility] ID Date Data Source [id number] 11/10/2019 11:10:00 PM EDT [facility] [address] [place] [address] [phone] NAME SEX PT STATUS ACCOUNT NUMBER FaithDonny ADM IN [id number] ORDERING PHYSICIAN LOCATION MEDICAL RECORD NO. Mina CAMARA [id number] ATTENDING PHYSICIAN DATE OF DATE OF EXAM/TIME [...] Lassiter MD; No Family PHYS Provided Techn: YAHALLIEU Trans Dt/Tm: Trans by: KESHAWN Prt Dt/Tm: [id number]: Total DLP = 0.00 mGy-cm Fluoroscopy Time (in secs): Name Value Range Interpretation Code Description Data Raquel rce(s) Supporting Document(s) ID Date Data Source [id number] 11/10/2019 10:48:00 AM EDT [facility] 1 OrderSheet [facility] Emergency Department [address] [place] [address] Phone #: ext- [phone] 11/10/2019 10:47 [id number] Sex: [facility] : 1955 Age: 64yWEIGHT:73.5 kg (M) HEIGHT:68 inches (S) BMI:24.6ALLERGIES: Acetaminophen, Benadryl, [place], Motrin, Paxil, Penicillins, ThorazineCHIEF COMPLAINT: fall, walking, passed out, backDIAGNOSIS: Syncope, Fracture of ribLAB ORDERSOrder Description Priority Entered Acknowledged InitialedCBC w Diff STAT 11:11/10/2019 11:23 [place] Paularin Alejandra 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, Rk ER P.A.-C; Myvh2RTH STAT 11:11/10/2019 11:23 [place] 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, Rk ER P.A.-C; Iigs2Tykqxa STAT 11:11/10/2019 11:23 [email or web address] 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, Kr ER P.A.-C; Gogf9MX/PTT STAT 11:19 11/10/2019 11:23 [email or web address] 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, Rk ER P.A.-C; Johs1Tzjhbvlq-H STAT 11:11/10/2019 11:23 [email or web address] 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, Rk ER P.A.-C; Gmby7Xciwpjvlz STAT 11:11/10/2019 11:23 [place] [facility] 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, Rk ER P.A.-C; Fxad9TCA STAT 11:11/10/2019 11:23 [place] [facility] 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, Rk ER P.A.-C; Plzn7Cfcfmvzjuu (Clean STAT 11:11/10/2019 15:26 Gladis) Santos Dixon RN P.A.-C;DIAGNOSTIC STUDY ORDERSOrder Description Priority Entered Acknowledged InitialedCT Chest W/ Cont STAT 12:52 11/10/2019 13:23 Lloyd(Oxygen?(No)) Santos Dixon RN(IV?(Yes)) P.A.-C; Reason for Study: L back/flank pain s/p syncope with echymosis 2 OrderSheet [facility] Emergency Department [address] [place] [address] Phone #: ext- [phone] 11/10/2019 10:47 Patient: DONNY FAITH Sex: M [...] IVP 4 mg 11:47 11/10/2019 11:53 Santos MorenoNPadma P.A.-C;Morphine IVP 2 mg 16:30 11/10/2019 16:36 Lloyd(HIGH ALERT Santos Dixon RNMEDICATION) P.A.-C;GENERAL ORDERSOrder Description Priority Entered Acknowledged InitialedBlood Pressure 11:19 11/10/2019 11:19 [place] Santos Alejandra 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Rk P.A.-C; Eglg1Pwxwrgc Monitor 11:19 11/10/2019 11:19 [place](continuous) Santos Alejandra 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, Rk IZAGUIRRE P.A.-C; Ubec9CRC 11:19 11/10/2019 11:19 [place] Santos Alejandra 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, Rk ER P.A.-C; Mgrx1FBF 11:19 11/10/2019 11:19 [place] Santos Alejandra 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, Rk IZAGUIRRE P.A.-C; Tech1 3 OrderSheet [facility] Emergency Department [address] [place] [address] Phone #: ext- [phone] 11/10/2019 10:47 Patient: DONNY FAITH Sex: M : 1955 Age: 64yObtain Old EKG 11:19 11/10/2019 11:23 [place] Santos Alejandra 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, Rk IZAGUIRRE P.A.-C; Izxk9Vqtdsv Old Records 11:19 11/10/2019 11:23 [place] Santos Alejandra 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, Rk IZAGUIRRE P.A.-C; Vqag9Qprjdq titrate to 11:19 11/10/2019 11:19 Csrzbaa23% Paularin Alejandra 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, Rk ER P.A.-C; Ofjd3Kjecb oximeter 11:19 11/10/2019 11:19 [place](Continuous) Paularin Alejandra 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, Rk IZAGUIRRE P.A.-C; Unnk7Stogos Lock 11:19 11/10/2019 11:23 Lloyd Dixon RN P.A.-C;Vitals 11:19 11/10/2019 11:19 [place] Paularin Alejandra 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, Rk IZAGUIRRE P.A.-C; Kkft0Cugbpl (2 L/min) 11:19 11/10/2019 11:19 [place]) (Titrate to O2 [facility] 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, Rk ERSat >92%) P.A.-C; Tech1[Electronically signed by Lloyd Dixon RN (17:03 11/10/2019)][Electronically signed by Santos Alejandra P.A.-C (22:54 )][Electronically locked by Lloyd Dixon RN (17:03 11/10/2019)] Name Value Range Interpretation Code Description Data Raquel rce(s) Supporting Document(s) ID Date Data Source [id number] 11/10/2019 10:48:00 AM EDT [facility] 1 Medication Reconciliation Report [facility] Emergency Department [address] [place] [address] Phone #: ext- [phone] 11/10/2019 10:47 Patient: DONNY FAITH Sex: M : 1955 Age: 64yWeight: 73.5 kgHeight/Length: 68 in.BMI: 24.6ALLERGIES: Acetaminophen, Benadryl, [place], Motrin, Paxil, Penicillins, ThorazineThe patient's Home Medications are listed below:THE FOLLOWING MEDICATIONS NEED TO BE RECONCILED: Advair Diskus Inhalation (500-50 mcg/dose) 1 inhalation, 2x a day Advocate Insulin Pen [place] Aspir-81 Oral (81 mg) 1 tablet, daily Basaglar 20 unita, at bedtime [facility] Claritin Oral (5 mg) 1 tablet, [...] 2x a day 2 Medication Reconciliation Report [facility] Emergency Department [address] [place] [address] Phone #: ext- [phone] 11/10/2019 10:47 Patient: [...] rce(s) Supporting Document(s) ID Date Data Source [id number] 11/10/2019 10:48:00 AM EDT [facility] 1 Medication Administration Record [facility] Emergency Department [address] [place] [address] Phone #: ext- [phone] 11/10/2019 10:47 Patient: DONNY FAITH Sex: M : 1955 Age: 64yWeight: 73.5 kgHeight/Length: 68 inBMI: 24.6ALLERGIES: Acetaminophen, Benadryl, [place], Motrin, Paxil, Penicillins, Thorazine Date/Time Medication Administered Medication OrderedStart IV NS IV NS : Bolus 500 mL, then 7511:28 11/10/2019 Dose: IV Fluids mL/Asuncion Dixon RN Rate: 75 mL/h r over 5 hour(s)---- Bolus: 500 mL over 20 minute(s)Stop Dispensed: 1000 mL bag17:01 11/10/2019 Site: #1 left Roseline Dixon RNGiven MORPHINE [IVP] Morphine IVP 2 mg (HIGH ALERT11:53 11/10/2019 Dose: 2 mg IVP MEDICATION)Bernadine Moreno R.N. In: NS 10 mL Site: #1 left ACGiven ZOFRAN [IVP] (ONDANSETRON HCL) Zofran IVP 4 mg11:52 11/10/2019 Dose: 4 mg IVPPJob hobbs RChiara Site: #1 left ACGiven MORPHINE [IVP] Morphine IVP 2 mg (HIGH ALERT16:36 11/10/2019 Dose: 2 mg IVP MEDICATION)Lloyd Dixon RN Site: #1 left AC Name Value Range Interpretation Code Description Data Raquel rce(s) Supporting Document(s) ID Date Data Source [id number] 11/10/2019 10:48:00 AM EDT [facility] 1 General Instructions [facility] Emergency Department [address] [place] [address] Phone #: ext- [phone] 11/10/2019 10:47 Patient: [...] awake. Breathe out through 2 General Instructions [facility] Emergency Department [address] [place] [address] Phone #: ext- [phone] 11/10/2019 10:47 Patient: [...] of pain and swelling. You may use hwbt-fjf-uzyikgn pain medicine to control pain, unless another [...] new findings that may affect your care.Call 911Call 911 if you have: Dizziness, weakness or fainting Shortness of breath with or without chest discomfort New or worsening abdominal pain Discomfort in other areas of your upper body such as your shoulders, jaw, neck, or armsWhen to seek medical adviceCall your healthcare provider right away if any of these occur: 3 General Instructions [facility] Emergency Department [address] [place] [address] Phone #: ext- [phone] 11/10/2019 10:47 Patient: DONNY FAITH Sex: M : 1955 Age: 64y Increasing chest pain with breathing Fever of 100.4F (38C) or above, or as directed by your healthcare provider Congested cough, nausea, or vomiting [id number] [employer]. [address] [place] [address], [place] [address]. All rights reserved. This information is not [...] find out if you 4 General Instructions [facility] Emergency Department [address] [place] [address] Phone #: ext- [phone] 11/10/2019 10:47 Patient: [...] with your healthcare provider, or as advised.Call [phone] if any of these occur: Another fainting [...] seeing Extreme drowsiness, confusion, dizziness, or fainting [phone] [employer]. [address] [place] [address]. All rights reserved. 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 Always follow your healthcare professional's instructions. You have been given the following additional information: Rib Fracture Syncope, Unk Cause(Electronically signed by Santos Alejandra P.A.-C 11/10/2019 22:54) Name Value Range Interpretation Code Description Data Raquel rce(s) Supporting Document(s) ID Date Data Source [id number] 11/10/2019 10:48:00 AM EDT [facility] 1 Clinical Report - Nurses [facility] Emergency Department [address] [place] [address] Phone #: ext- [phone] 11/10/2019 10:47 Patient: DONNY FAITH Sex: M : 1955 Age: 64yTRIAGEHistorian: patient.Triage time: 10:49 11/10/2019. Acuity: LEVEL 4.Chief Complaint: FALL. Passed out while walking. Landed on back.(2 days ago "blacked out" unwitnessed, patient states lasted 3 minutes landed on left side on [id number]).10:49 11/10/19. Alert. No acute distress.( Today "reached for cup, felt a sharp pain left flank").Treatment REGIONAL FACILITIES SPECIALIST:None.EMS Treatment REGIONAL FACILITIES SPECIALIST:Received prehospital notification of patient arrival. EMS report reviewed. See report.SEPSIS SCREEN: SIRS Screen negative. Sepsis Screen negative. No suspected or confirmed signs ofinfection present. --10:59 11/10/19 Tatianna Jasso RN10:49 11/10/19. BP: 141/92. MAP: 108. HR: 90. RR: 15. O2 saturation: 96%. Temp: 97.6 F. Pain levelnow: 10/10. Describes the quality as sharp. It has been constant. --10:59 11/10/19 Tatianna Jasso RN.Weight: 51.2 kg stated. Height/Length: 68 inches Per Patient. BMI: 17.2. --10:48 11/10/19 SHAKIRA Dao.Weight: 73.5 kg measured. BMI: 24.6. --13:52 11/10/19 Lloyd Dixon RN.MedicationsAdvair Diskus Inhalation (Aerosol Powder Breath Activated 500-50 mcg/dose) 1 inhalation, 2x a day. Advocate Insulin Pen [place]. Aspir-81 Oral (Tablet Delayed Release 81 mg) 1 tablet, daily. Basaglar 20 unita, at bedtime. [facility]. Claritin Oral (Tablet Chewable 5 mg) [...] Jasso RN 2 Clinical Report - Nurses [facility] Emergency Department [address] [place] [address] Ph one #: ext- [phone] 11/10/2019 10:47 Patient: DONNY FAITH Sex: M [...] on day 3. --11:02 11/10/19 Tatianna Jasso RN.AllergiesAcetaminophen.Benadryl.[place].Motrin.Paxil.Penicillins.Thorazine. --10:54 11/10/19 Tatianna Jasso RN.Aygmjdl09:49 11/10/19.PAST MEDICAL HX: Tetanus status: up-to-date. Immunizations: [...] no barriers. 3 Clinical Report - Nurses [facility] Emergency Department [address] [place] [address] Phone #: ext- [phone] 11/10/2019 10:47 Patient: [...] risk identified. --10:59 11/10/19 Tatianna Jasso RN.PHYSICAL HCVLCVQBTC93:55 11/10/19. To room via stretcher.GENERAL / NEURO [...] left upper lumbar paraspinous region.--11:02 11/10/19 Tatianna Jasso RN To room via stretcher. GENERAL / [...] and post-medication 4 Clinical Report - Nurses [facility] Emergency Department [address] [place] [address] Phone #: ext- [phone] 11/10/2019 10:47 Patient: DONNY FAITH Sex: M : 1955 Age: 64y administration. Information reviewed with patient including reason for taking this medication. Verbalizes understanding. --11:28 11/10/19 Lloyd Dixon RN EKG time: (late entry - 11:26 11/10/2019). EKG was performed by a tech and shown to the PA. --11:31 11/10/19 Marty Richardson ER Associate Doctor 11:52 11/10/2019 Zofran (Ondansetron HCl) IVP 4 [...] warning. Verbalizes understanding. --11:54 11/10/19 Bernadine Moreno R.N. 16:06 11/10/19. BP: 107/73. MAP: 84. HR: 86. RR: 16. O2 saturation: 96%. Temp: 96.8 F. Pain level now: 01/22. --16:06 11/10/19 Lloyd flores RN ( pt to be transported to [facility]). --16:11/10/19 Lloyd Dixon RN 16:36 11/10/2019 Morphine IVP [...] Verbalizes understanding. --16:36 11/10/19 Lloyd Dixon RN 17:11/10/2019 IV Fluids IV NS via IV site #1 Discontinued: STOPPED upon transfer. Total amount infused: 800 mL. IV patency established. IV site checked: no pain, redness, or swelling. IV flushed thoroughly. --17:11/10/19 Lloyd Dixon RN.DISPOSITION / DISCHARGE Transferred. Visit overview and summary of care (CCDA) provided to EMS and transfer facility via paper and fax ([facility]). Transported via ambulance by EMS with [...] Dixon RN 5 Clinical Report - Nurses [facility] Emergency Department [address] [place] [address] Phone #: ext- [phone] 11/10/2019 10:47 Patient: [...] rce(s) Supporting Document(s) ID Date Data Source [id number] 11/10/2019 10:48:00 AM EDT [facility] 1 Clinical Report - Physicians/Mid Levels [facility] Emergency Department [address] [place] [address] Phone #: ext- [phone] 11/10/2019 10:47 Patient: [...] pain/pop in the L flank and came toe ER via EMS.).REVIEW OF SYSTEMS No numbness, [...] MN. 2 Clinical Report - Physicians/Mid Levels [facility] Emergency Department [address] [place] [address] Phone #: ext- [phone] 11/10/2019 10:47 -------- [...] 1 inhalation, 2x a day.Advocate Insulin Pen [place].Aspir-81 Oral (Tablet Delayed Release 81 mg) 1 tablet, daily.Basaglar 20 unita, at bedtime.[facility].Claritin Oral (Tablet Chewable 5 mg) 1 [...] (Tablet 4 mg) 1-1/2 tablets, 2x a day.Allergies:Acetaminophen.Benadryl.[place].Motrin.Paxil. 3 Clinical Report - Physicians/Mid Levels [facility] Emergency Department [address] [place] [address] Phone #: ext- [phone] 11/10/2019 10:47 Patient: [...] ankle complaints. No left foot complaints. Neuro: Issa Coma Scale: 15- eyes open- spontaneous (4); best verbal response- oriented (5); best motor response- obeys commands (6). Awake. Alert. Oriented X 3. Mood/affect normal. Speech normal.LABS, X-RAYS, AND EKG EKG: Sinus rhythm w/ 1st degree AV block; o/w normal ECG. 4 Clinical Report - Physicians/Mid Levels [facility] Emergency Department [address] [place] [address] Phone #: [phone] ext- [phone] 11/10/2019 10:47 Patient: DONNY FAITH Sex: M : 1955 Age: 64ydiscussed and reviewed wiht/by attending.Review previous: .CT C-Spine: (Emilie desir Michael - 11/10/2019 2:50:20 PMDJD No Fx). The study was interpreted by the radiologist.CT Head: (matthew ShaniceZeus - 11/10/2019 2:46:53 PMnad, bilat maxillary retention cysts stable, gmm/mk). The study was interpreted by the radiologist.Chest CT: (Emilie desir Gulshan - 11/10/2019 2:51:09 PMCOPD with no acute disease otherwise noted). The study was interpreted by the radiologist.CT Abdomen - Pelvis: Emilie desir Gulshan - 11/10/2019 2:55:43 PMRight and left lower [...] 5.0) 5 Clinical Report - Physicians/Mid Levels [facility] Emergency Department [address] [place] [address] Phone #: ext- [phone] 11/10/2019 10:47 Patient: [...] Male GFR Interprentation 20-49 yrs >60 mL/min Kickpm68-26 yrs >56 mL/min Normal 60-69 yrs >49 mL/min Normal 70-79yrs>42 mL/min Normal 80 and above >35 mL/min Normal Female GFRInterpretation 20-39 yrs >60 mL/min Normal 40-49 yrs >58 mL/minNormal 50-59 yrs >51 mL/min Normal 60-69 yrs >45 mL/min Vhpvph77-21 yrs >39 mL/min Normal 80 and above >32 mL/min NormalLipase: (ROSARIO: 11/10/2019 11:53) ( MsgRcvd 11/10/2019 12:24) Final results Test Result Flag Units * *(Reference) LIPASE 21 U/L (13 - 60)PT/PTT: (ROSARIO: 11/10/2019 11:53) ( MsgRcvd 11/10/2019 12:22) Final results Test Result Flag [...] forMechanical Prosthetic valve.Troponin-T: (ROSARIO: 11/10/2019 11:53) ( [facility] 11/10/2019 13:10) Final results Test Result Flag Units (Reference) TROPONIN T <0.01 NG/ML (0.00 - 0.10) TROPONIN T0.1 ng/ml Recommended as the clinical threshold value forTroponin T.Magnesium: (ROSARIO: 11/10/2019 11:53) ( [facility] 11/10/2019 12:24) Final results Test Result Flag Units (Reference) MAGNESIUM 1.8 MG/DL (1.7 - 2.2)BNP: (ROSARIO: 11/10/2019 11:53) ( [facility] 11/10/2019 12:24) Final results Test Result Flag Units (Reference) BNP 23 PG/ML (0 - 125) 6 Clinical Report - Physicians/Mid Levels [facility] Emergency Department [address] [place] [address] Phone #: ext- [phone] 11/10/2019 10:47 Patient: DONNY FAITH Sex: M : 1955 Age: 64y Urinalysis: (ROSARIO: 11/10/2019 12:40) ( [facility] 11/10/2019 14:08) Final results Test [...] change of new 1st degree AV block. WA today: 214. WA on 16Ika45: 200 Pending results. Reviewed results. Pt has hx of chronci sycopial episodes. b/l lower rib fxs. Pt lives alone. Pt is a elevated fall risk. [facility] Contacted [facility] and discussed with Dr. Sanchez and [...] alternatives to transfer explained to patient. Transferred. [facility]. UTI (catheter associated) was not present prior to transfer. Pressure ulcer was not present prior to transfer. 7 Clinical Report - Physicians/Mid Levels [facility] Emergency Department [address] [place] [address] Phone #: ext- [phone] 11/10/2019 10:47 [id number] Sex: M : 1955 Age: 64y Vascular infection (catheter associated) was not present prior to transfer.CLINICAL IMPRESSION Common syncope. Multiple right and left rib fractures.(Electronically signed by Santos Alejandra P.A.-C 11/10/2019 22:54) Name Value Range Interpretation Code Description Data Raquel rce(s) Supporting Document(s) ID Date Data Source [id number] 11/10/2019 10:57:00 PM [facility] Name Value Range Interpretation Code Description Data Raquel rce(s) Supporting Document(s) Creatine kinase [Enzymatic activity/volume] in Serum or Plasma 93 U /L 33-211 [facility] ID Date Data Source [id number] 11/10/2019 10:50:00 PM [facility] Value Range Interpretation Code Description Data Raquel rce(s) Supporting Document(s) Natriuretic peptide.B prohormone N-Terminal [Mass/volu me] in Serum or Plasma 23.00 pg/mL 0.00-175 [facility] ID Date Data Source [id number] 11/10/2019 10:44:00 PM [facility] Name Value Range Interpretation Code Description Data Raquel rce(s) Supporting Document(s) Troponin I.cardiac [Mass/volume] in Serum or Plasma Less Than 0.015 0.00-0.09 [facility] Less than 0.09 NG/ML Negative0.10 - 0.77 NG/ML High Risk0.78 NG/ML or Greater PositiveThe WHO defined the cutoff (definition for diagnosis of MN)for this method as 0.78 ng/ml. ID Date Data Source [id number] 11/10/2019 10:36:00 PM [facility] Name Value Range Interpretation Code Description Data Raquel rce(s) Supporting Document(s) Urea nitrogen [Mass/volume] in Serum or Plasma 16 mg/dL 9-23 [facility] Sodium [Moles/volume] in Serum or Plasma 138 mmol/L 132-146 [facility] Potassium [Moles/volume] in Serum or Plasma 3.9 mmol/L 3.5-5.5 [facility] Chloride [Moles/volume] in Serum or Plasma 106 mmol/L 99-109 [facility] Carbon dioxide, total [Moles/volume] in Serum or Plasma 24 mmol/L 20 -31 [facility] Anion gap in Serum or Plasma 12 mmol/L 8-16 [facility] Glucose [Mass/volume] in Serum or Plasma 237 mg/dL 74-106 Above high normal [facility] Creatinine 0.9 mg/dL 0.5-1.1 [facility] Glomerular filtration rate/1.73 sq M.pre dicted [Volume Rate/Area] in Serum or Plasma Greater Than 60 ABOVE 60 [facility] Calcium [Mass/volume] in Serum or Plasma 9.1 mg/dL 8.5-10.1 [facility] ID Date Data Source [id number] 11/10/2019 09:51:00 PM EDT [facility] Name: DONNY FAITH : 1955 Age: 64 MR#: [id number] Admit Date: 11/10/19 Provider: Mina Deng Room [...] weakness at baseline, seizures, is transferred to [facility] from [facility] after he had fall injury. The patient [...] frequency or urgency. The ER provider in [place] Hospital ordered CT scan of the head, neck, [...] cigarettes daily, drinks alcohol occasionally, smokes [employer] on regular bases. Family History: Father: killed [...] insulin glargine [Basaglar KwikPen 20 unit SUBCUT HS 11/10/19 11/10/19 Unknown History U-100 Insulin] levetiracetam [...] the patient's case with thoracic specialist in [facility], who recommends chest xray tonight, then [...] Baird MD> Jaylon Baird MD 11/11/19917 D: BOZENA 11/10/192150 T: BOZENA 11/10/192150 CC: Name Value Range Interpretation Code Description Data Raquel rce(s) Supporting Document(s) ID Date Data Source [id number] 11/10/2019 07:41:00 [place] [address] PHONE: [phone] FAX: [phone] Name ..............: DIMA BRISENOE Radha Acct Number ...........................: [id number] ROOM. ............: TR-08 Number ............................: [id number] Stay type.........: E/R Discharge Date...............:11/10/19 Admit Date .....: 11/10/19 Admit Phys .............................: MITCHELL CHUN Date of ..: 1955 Family Phys ...........................: TRU WATERMAN Phone..............: [phone] Age.................................:64 Film# ...............:[id number] Sex.................................:M Unsigned transcriptions are preliminary reports and do not represent a medical or legal document EKG [id number] COMPLETE:11/10/19 13:29 [facility] [id number] Please See Scanned Results. Name Value Range Interpretation Code Description Data Raquel rce(s) Supporting Document(s) ID Date Data Source [id number] 11/10/2019 07:42:00 PM EDT [facility] Name Value Range Interpretation Code Description Data Raquel rce(s) Supporting Document(s) Phenytoin [Mass/volume] in Serum or Plasma 1.4 ug/mL 10-20 Belo w low normal [facility] ID Date Data Source [id number] 11/10/2019 02:08:00 PM EDT [facility] Name Value Range Interpretation Code Description Data Raquel rce(s) Supporting Document(s) URINALYSIS [facility] homero URINALYSIS SOURCE R [facility] COLOR yellow NORMAL: Yellow [facility] CLARITY clear NORMAL: Clear [facility] Specific gravity of Urine by Test strip 1.010 1.001 - 1.030 [facility] 7 5 - 9 [facility] Glucose [Mass/volume] in Urine by Test strip 1000 NORMAL: Negat savannah A [facility] Bilirubin.total [Presence] in Urine by Test strip NEG NORMAL: Negative [facility] Ketones [Presence] in Urine by Test strip NEG NORMAL: Negative [facility] Protein [Mass/volume] in Urine by Test strip NEG NORMAL: Negat savannah [facility] Nitrite [Presence] in Urine by Test strip NEG NORMAL: Negative [facility] BLOOD NEG NORMAL: Negative [facility] Leukocyte esterase [Presence] in Urine by Test strip NEG SANDRA L: Negative [facility] Urobilinogen [Mass/volume] in Urine by Test strip NOR less jenniffer n 1.0 mg/dL [facility] MICROSCOPIC Not Indicate [facility] ospital ID Date Data Source [id number] 11/10/2019 01:10:00 PM EDT [facility] Name Value Range Interpretation Code Description Data Raquel rce(s) Supporting Document(s) TROPONIN T <0.01 NG/ML 0.00 - 0.10 [facility] TROPONIN T0.1 ng/ml Recommended as the c linical threshold value forTroponin T. ID Date Data Source [id number] 11/10/2019 12:34:00 PM EDT [facility] Name Value Range Interpretation Code Description Data Raquel rce(s) Supporting Document(s) COMPREHENSIVE METABOLIC PANEL [facility] COMPREHENSIVE METABOLIC PANEL Sodium [Moles/volume] in Serum or Plasma 132 mEq/L 134 - 153 L [facility] Potassium [Moles/volume] in Serum or Plasma 4.2 mEq/L 3.6 - 5.0 [facility] Chloride [Moles/volume] in Serum or Plasma 99 mEq/L 98 - 107 [facility] Carbon dioxide, total [Moles/volume] in Serum or Plasma 23 MEQ/L 22 - 30 [facility] Glucose [Mass/volume] in Serum or Plasma 352 MG/DL 65 - 110 H [facility] BUN 16 MG/DL 7 - 21 [facility] Creatinine [Mass/volume] in Serum or Plasma 0.5 MG/DL 0.7 - 1.5 L [facility] BUN/CREAT 32 8 - 27 [facility] Protein [Mass/volume] in Serum or Plasma 7.1 G/DL 6.3 - 8.2 [facility] Albumin [Mass/volume] in Serum or Plasma 4.3 G/DL 3.9 - 5.0 [facility] Globulin [Mass/volume] in Serum by calculation 2.8 GM/DL 2.4 - 3.2 [facility] A/G RATIO 1.5 0.8 - 2.0 [facility] Calcium [Mass/volume] in Serum or Plasma 8.6 MG/DL 8.4 - 10.2 [facility] Bilirubin.total [Mass/volume] in Serum or Plasma <0.7 MG/DL 0.2 - 1.3 [facility] Alkaline phosphatase [Enzymatic activity/volume] in Serum or Plasma 78 U/L 38 - 126 [facility] Aspartate aminotransferase [Enzymatic activity/volume] in Serum or Plasma 11 U/L 5 - 40 [facility] Alanine aminotransferase [Enzymatic activity/volume] in Seru m or Plasma 13 U/L 7 - 56 [facility] Anion gap 3 in Serum or Plasma 10.0 mmol/L 8.0 - 16.0 [facility] AGE 64 yrs [facility] NON-AA GFR >60 mL/min [facility] ital AFR AMER GFR >60 mL/min [facility] Ho spital Male GFR In terprentation 20-49 [...] >32 mL/min Normal ID Date Data Source [id number] 11/10/2019 12:24:00 PM EDT [facility] Name Value Range Interpretation Code Description Data Raquel rce(s) Supporting Document(s) BNP 23 PG/ML 0 - 125 [facility] ID Date Data Source [id number] 11/10/2019 12:24:00 PM EDT [facility] Name Value Range Interpretation Code Description Data Raquel rce(s) Supporting Document(s) Magnesium [Mass/volume] in Serum or Plasma 1.8 MG/DL 1.7 - 2.2 [facility] ID Date Data Source [id number] 11/10/2019 12:24:00 PM EDT [facility] Name Value Range Interpretation Code Description Data Raquel rce(s) Supporting Document(s) Lipase [Enzymatic activity/volume] in Serum or Plasma 21 U/L 13 - 60 [facility] ID Date Data Source [id number] 11/10/2019 12:22:00 PM EDT [facility] Name Value Range Interpretation Code Description Data Raquel rce(s) Supporting Document(s) Prothrombin time (PT) 15.7 SECONDS 11.0 - 15.5 [facility] INR in Platelet poor plasma by Coagulation assay 1.23 0.93 - 1. 23 [facility] aPTT in Blood by Coagulation assay 32.9 SECONDS 24.8 - 36.7 [facility] \\BLDo\\INR INTERPRETATION\\BLDx\\ Therapeutic range for Coumadin and related oral anticoagulants. - International Normalized Ratio (INR): 2.0 - 3.0 for Venous Thrombosis, Pulmonary Embolus, Tissue heart valves, Acute [place] Atrial Fibrillation, Valvular heart disease and recurrent Systemic Embolism. - International Normalized Ratio (INR): 2.5 - 3.5 for Mechanical Prosthetic valve. ID Date Data Source [id number] 11/10/2019 12:03:00 PM EDT [facility] Name Value Range Interpretation Code Description Data [facility](s) Supporting Document(s) CBC W/AUTOMATED DIFF [facility] COMPLETE BLOOD COUNT Leukocytes [#/volume] in Blood by Automated count 8.0 10^3/uL 4.2 - 1 1.0 [facility] Erythrocytes [#/volume] in Blood by Automated count 4.54 10^6/uL 4. 50 - 6.30 [facility] Hemoglobin [Mass/volume] in Blood 13.8 g/dL 14.0 - 16.0 L [facility] Hematocrit [Volume Fraction] of Blood by Automated count 39.9 % 4 1.0 - 51.0 L [facility] Erythrocyte mean corpuscular volume [Entitic volume] by Auto mated count 87.9 fL 80.0 - 94.0 [facility] Erythrocyte mean corpuscular hemoglobin [Entitic mass] by Automated count 30.4 pg 27.0 - 34.0 [facility] Erythrocyte mean corpuscular hemoglobin concentration [Mass/volume] by Automated count 34.6 g/dL 31.0 - 36.0 [facility] Erythrocyte distribution width [Ratio] by Automated count 14.5 % 11.5 - 14.8 [facility] Platelets [#/volume] in Blood by Automated count 221 10^3/uL 150 - 45 0 [facility] Platelet mean volume [Entitic volume] in Blood by Automated count 8.9 fL 7.4 - 10.4 [facility] Neutrophils/100 leukocytes in Blood by Automated count 65.4 % 37. 0 - 80.0 [facility] Lymphocytes/100 leukocytes in Blood by Manual count 24.9 % 25.0 - 40.0 L [facility] Monocytes/100 leukocytes in Blood by Automated count 6.9 % 3.0 - 8.0 [facility] Eosinophils/100 leukocytes in Blood by Automated count 1.7 % 0.0 - 7.0 [facility] Basophils/100 leukocytes in Blood by Automated count 0.9 % 0.0 - 2.0 [facility] %IG 0.2 % 0.0 - 0.0 [facility] %NRBC 0.0 % 0.0 - 0.0 [facility] al Neutrophils [#/volume] in Blood by Automated count 5.24 10^3/uL 2.00 - 6.90 [facility] Lymphocytes [#/volume] in Blood by Automated count 2.00 10^3/uL 0.60 - 3.40 [facility] Monocytes [#/volume] in Blood by Automated count 0.55 10^3/uL 0.00 - 0.90 [facility] Eosinophils [#/volume] in Blood by Automated count 0.14 10^3/uL 0.00 - 0.70 [facility] Basophils [#/volume] in Blood by Automated count 0.07 10^3/uL 0.00 - 0.20 [facility] #IG 0.02 10^3/uL 0.00 - 0.10 [facility] #NRBC 0.00 10^3/uL 0.00 - 0.00 [facility] ospital MANUAL DIFF NOT INDICATED [facility] RBC MORPH NOT INDICATED [facility] ID Date Data Source [id number] 05/14/2019 09:46:00 AM EST [facility] 1 OrderSheet [facility] Emergency Department [address] [place] [address] Phone #: ext- [phone] 05/14/2019 09:45 Patient: DONNY FAITH Sex: M : 1955 Age: 64yWEIGHT:73.4 kg (S) HEIGHT:68 inches (S) BMI:24.6ALLERGIES: Acetaminophen, Benadryl, [place], Motrin, Paxil, Penicillins, ThorazineCHIEF COMPLAINT: weaknessDIAGNOSIS: Diabetes [...] Priority Entered Acknowledged InitialedChest Portable 1 STAT 10:22 05/14/2019 10:23 Denver Luis RN(Oxygen?(No)) Bubba; 2 OrderSheet [facility] Emergency Department [address] [place] [address] Phone #: ext- [phone] 05/14/2019 09:45 Patient: DONNY FAITH Sex: M : 1955 Age: 64y Reason for Study: weakness, coughMEDICATION/IV/DRIP/FLUID ORDERSOrder Description Priority Entered Acknowledged InitialedNS IV 1000 mL 10:05/14/2019 10:37 TerryBolus: : Bolus 1000 Denver Arreaga RNmL (X1) Bubba;Insulin Reg Subcut 10:23 05/14/2019 10:37 Terry10 units (HIGH Denver Arreaga RNALERT [...] Priority Entered Acknowledged InitialedBlood Pressure 10:05/14/2019 10:23 DonyyMonitor Denver Arreaga RN, M.D.;EKG 10:05/14/2019 10:34 [place] [facility] Denver Arreaga Tiffany ER M.D.; Eute9Wruawc Old EKG 10:05/14/2019 10:23 Denver Bojorquez RN, M.D.;Obtain Old Records 10:05/14/2019 10:23 Denver Bojorquez RN, M.D.;Saline Lock 10:05/14/2019 10:23 Denver Bojorquez RN, M.D.;Vitals 10:05/14/2019 10:23 Denver Bojorquez RN, M.D.; 3 OrderSheet [facility] Emergency Department [address] [place] [address] Phone #: ext- [phone] 05/14/2019 09:45 Patient: [...] rce(s) Supporting Document(s) ID Date Data Source [id number] 05/14/2019 09:46:00 AM EST [facility] 1 Medication Reconciliation Report [facility] Emergency Department [address] [place] [address] Phone #: ext- [phone] 05/14/2019 09:45 Patient: DONNY FAITH Sex: M : 1955 Age: 64yWeight: 73.4 kgHeight/Length: 68 in.BMI: 24.6ALLERGIES: Acetaminophen, Benadryl, [place], Motrin, Paxil, Penicillins, ThorazineThe patient's Home Medications are listed below:CONTINUE TAKING THE FOLLOWING MEDICATIONS: Advair Diskus Inhalation (500-50 mcg/dose) 1 inhalation, 2x a day Advocate Insulin Pen [place] Aspir-81 Oral (81 mg) 1 tablet, daily Basaglar 20 unita, at bedtime [facility] Claritin Oral (5 mg) 1 tablet, [...] 2x a day 2 Medication Reconciliation Report [facility] Emergency Department [address] [place] [address] Phone #: ext- [phone] 05/14/2019 09:45 Patient: [...] rce(s) Supporting Document(s) ID Date Data Source [id number] 05/14/2019 09:46:00 AM EST [facility] 1 Medication Administration Record [facility] Emergency Department [address] [place] [address] Phone #: ext- [phone] 05/14/2019 09:45 Patient: DONNY FAITH Sex: M : 1955 Age: 64yWeight: 73.4 kgHeight/Length: 68 inBMI: 24.6ALLERGIES: Acetaminophen, Benadryl, [place], Motrin, Paxil, Penicillins, Thorazine Date/Time Medication Administered Medication OrderedStart normal saline * NS IV 1000 mL Bolus: : Bolus 456682:[id number] 05/14/2019 Dose: 1000 cc bolus * IV Fluids mL (X1)Quoc Sandoval RN----Stop11:40 05/14/2019Quoc Sandoval RNGiven INSULIN REG [SUBCUTANEOUS] Insulin Reg Subcut 10 units (HIGH10:34 05/14/2019 Dose: 10 unit Subcutaneous ALERT MEDICATION)Quoc Sandoval RNGiven ZOFRAN [IVP] (ONDANSETRON HCL) Zofran 4 mg IVP X 1 dose: 4 mg10:33 05/14/2019 Dose: 4 mg IVP (NOW x1)Quoc Sandoval RN Site: #1 left ACGiven LIDOCAINE VISCOUS [PO] Lidocaine Viscous PO 15 mL11:02 05/14/2019 Dose: 15 mL Solution/Elixir PO (NOW x1)Quoc Sandovla RNGiven OXYCODONE [PO] - (Oxycodone 5 mg po once)11:52 05/14/2019 Dose: 5 mg Tablets Tanya Sandoval RN Name Value Range Interpretation Code Description Data Raquel rce(s) Supporting Document(s) ID Date Data Source [id number] 05/14/2019 09:46:00 AM EST [facility] 1 General Instructions [facility] Emergency Department [address] [place] [address] Phone #: ext- [phone] 05/14/2019 09:45 Patient: [...] 1 inhalation 2x a day.Advocate Insulin Pen [place]*.Aspir-81 Oral : Tablet Delayed Release 81 mg, 1 tablet daily.Basaglar* : 20 unita, at bedtime.[facility]* : ion.Claritin Oral : Tablet Chewable 5 mg, 1 [...] : 2x a day. 2 General Instructions [facility] Emergency Department [address] [place] [address] Phone #: ext- [phone] 05/14/2019 09:45 Patient: [...] wsiness or loss of consciousnessIf you have ceja-vmfwz-xmhay symptoms, use a blood or urine test to find out what your blood sugarlevel is. If it is above your usual range, use the "sliding scale" regular insulin dose prescribed by your 3 General [facility] Emergency Department [address] [place] [address] Phone #: ext- [phone] 05/14/2019 09:45 Patient: [...] hospital emergency room or urgent care center [id number] [employer]. [address] [place] [address], [place] [address]. All rights reserved. This information is not [...] are general guidelines to follow. A registereddietitian (RD) will create a tailored diet approach that's [...] starchy vegetables o Vegetables 4 General Instructions [facility] Emergency Department [address] [place] [address] Phone #: ext- [phone] 05/14/2019 09:45 Patient: [...] of Nutrition and Dietetics www.eatright.org o [employer] [phone] www.diabetes.org 7857-8784 [employer]. [address] [place] [address]. All rights reserved. This information is not intended as asubstitute for professional medical care. Always follow your healthcare professional's instructions. You have been given the following additional information: Diabetes with High Blood Sugar Diet: Diabetes 5 General Instructions [facility] Emergency Department [address] [place] [address] Phone #: ext- [phone] 05/14/2019 09:45 Patient: DONNY FAITH Sex: M : 1955 Age: 64y(Electronically signed by Denver Arreaga M.D. 05/14/2019 14:59) Name Value Range Interpretation Code Description Data Raquel rce(s) Supporting Document(s) ID Date Data Source [id number] 05/14/2019 09:46:00 AM EST [facility] 1 Clinical Report - Nurses [facility] Emergency Department [address] [place] [address] Phone #: ext- [phone] 05/14/2019 09:45 Patient: [...] 24.6. --09:58 05/14/19 Latonya Henderson R.N. Medications [facility]. --09:58 05/14/19 Quoc Sandoval RN Advair Diskus Inhalation (Aerosol Powder Breath Activated 500-50 mcg/dose) 1 inhalation, 2x a day. Advocate Insulin Pen [place]. Aspir-81 Oral (Tablet Delayed Release 81 mg) 1 tablet, daily. Basaglar 20 unita, at bedtime. Claritin Oral (Tablet Chewable 5 mg) 1 tablet, daily at bedtime. --09:58 05/14/19 Zoss, Latonya, R.N. Crestor Oral (Tablet 5 mg) 1 [...] a day. 2 Clinical Report - Nurses [facility] Emergency Department [address] [place] [address] Phone #: ext- [phone] 05/14/2019 09:45 Patient: DONNY FAITH Sex: M : 1955 Age: 64yVentolin HFA Inhalation 2 puffs, q8h as needed, sob.Z pack 1 tab day pt on day 3. --05/14/19 Santiago July RPadmaNPadmaThe following entry was struck and corrected by Quoc Sandoval RN, 10:39 (05/14/19) Reason forcorrection - other(correction). [facility]. --05/14/19 Santiago July RChiara .AllergiesAcetaminophen.Benadryl.[place].Motrin.Paxil.Penicillins.Thorazine. --05/14/19 SantiagoJuly RChiaraPROBLEMS:CVA - Cerebrovascular Accident.COPD - Chronic Obstructive Pulmonary Disease.Diabetes Mellitus.Parkinson's Disease.MN.Heart Disease.Emphysema.Hypercholesterolemia.Lung Disease.Hypertension. --:59 05/14/19 Latonya Henderson RMolly.ADDITIONAL SURGERIES:Appendectomy.Cholecystectomy. --59 05/14/19 Latonya Henderson RMolly.HistorySOCIAL HX: Never smoker. No alcohol use or [...] before today?". 3 Clinical Report - Nurses [facility] Emergency Department [address] [place] [address] Phone #: ext- [phone] 05/14/2019 09:45 Patient: [...] R.N. Interventions To treatment room. --10:00 05/14/19 Fernanda JulyDustinPHYSICAL ASSESSMENT 10:13 05/14/19. To room via stretcher. [...] Patient ready for evaluation- ED physician notified. --10:05/14/19 [facility] JulyKip. 10:05/14/2019 Site #1 started prior to arrival by EMS via IV in the left antecubital space. --10:05/14/19 Fernanda JulyKip. Other. --10:05/14/19 [facility] July RChiara 10:05/14/2019 Site #1 started prior to arrival by EMS via IV in the left antecubital space with an 18g angiocath. --10:02 05/14/19 Santiago July RMolly. Finger stick glucose: 534 mg/dL. --10:03 05/14/19 FernandajulyDustin ( pt given urinal. pt oob on own.). --10:05/14/19 Fernanda JulyDusitn Call light placed in reach. --10:14 05/14/19 Quoc Sandoval RN 4 Clinical Report - Nurses [facility] Emergency Department [address] [place] [address] Phone #: ext- [phone] 05/14/2019 09:45 Patient: DONNY FAITH Sex: M : 1955 Age: 64yEKG time: (10:31 05/14/2019). EKG was performed by a tech and shown to the ED physician. --10: Kenny 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, ZINA Del Valle Ixym536:30 05/14/2019 normal saline * IV Fluids 1000 [...] presence ofthe patient and sent to lab. (5780). --10:38 05/14/19 Quoc Sandoval RNChecked patient name and birthdate. Blood samples drawn by tech: blood culture (2nd set). (1035).--10:38 05/14/19 Quoc Sandoval RN11:02 05/14/2019 Lidocaine Viscous PO Solution/Elixir 15 mL given. Allergies verified and confirmed 5rights. Information reviewed with patient. (small amount placed on palette with q tip for mouth pain).--11:05/14/19 Quoc Sandoval RN11:06 05/14/19. BP: 126/75. MAP: 92. HR: 81. RR: 18. O2 saturation: 91%. --11:06 05/14/19 Ivon Mcdowell, ER Wlcw462:29 05/14/19. BP: 121/72. MAP: 88. HR: 82. RR: 16. O2 saturation: 92%. --11:30 05/14/19 Ivon Mcdowell, ER [id number] stick glucose: 1130 decreased to 341; performed by nurse; result shown to the ED physician. (1130 pt c/o sinus pain M D notified). --11:37 05/14/19 Quoc Sandoval RN11:52 05/14/2019 Oxycodone PO Tablets 5 mg given. Allergies verified and confirmed 5 rights. Informationreviewed with patient. --11:52 05/14/19 Quoc Sandoval RN12:05/14/19. BP: 133/76. MAP: 95. HR: 82. RR: 16. O2 saturation: 94%. --12:01 05/14/19 Ivon Mcdowell, ER Ednc288:31 05/14/19. BP: 120/78. MAP: 92. HR: 93. RR: 16. O2 saturation: 91%. --12:31 05/14/19 Ivon Mcdowell, ER [id number] stick glucose: 1240 accu check 289; performed by nurse; result shown to the ED physician. ( 1240lunch tray offered and taken well). --12:48 05/14/19 Quoc Sandoval RN 5 Clinical Report - Nurses [facility] Emergency Department [address] [place] [address] Phone #: ext- [phone] 05/14/2019 09:45 Patient: DONNY FAITH Sex: M [...] Patient verbalized understanding. Written instructions provided in Azeri. The patient was discharged by the physician. [...] RN.Locked/Released at 05/15/2019 08:55 by Cheng Samuels, Name Value Range Interpretation Code Description Data Raquel rce(s) Supporting Document(s) ID Date Data Source [id number] 05/14/2019 09:46:00 AM EST [facility] 1 Clinical Report - Physicians/Mid Levels [facility] Emergency Department [address] [place] [address] Phone #: ext- [phone] 05/14/2019 09:45 Patient: [...] care: The patient was seen recently at [facility]. ( in last week for COPD, got [...] Hypertension. 2 Clinical Report - Physicians/Mid Levels [facility] Emergency Department [address] [place] [address] Phone #: ext- [phone] 05/14/2019 09:45 --- Patient: DONNY FAITH Sex: [...] inhalation, 2x a day. Advocate Insulin Pen [place]. Aspir-81 Oral (Tablet Delayed Release 81 mg) 1 tablet, daily. Basaglar 20 unita, at bedtime. [facility]. Claritin Oral (Tablet Chewable 5 mg) 1 tablet, daily at bedtime. Al lergies: Acetaminophen. Benadryl. [place]. Motrin. Paxil. Penicillins. Thorazine.SOCIAL HISTORYFormer smoker. No alcohol use or drug use.ADDITIONAL NOTESThe nursing notes have been reviewed with agreement regarding the chief complaint, HPI, ROS, PMH and 3 Clinical Report - Physicians/Mid Levels [facility] Emergency Department [address] [place] [address] Phone #: ext- [phone] 05/14/2019 09:45 Patient: DONNY FAITH Sex: M : 1955 Age: 64y patient medications and allergies.PHYSICAL EXAMVital Signs: 05/14/2019 10:01 BP: 116/32. MAP: 60. HR: 93. RR: 16. O2 saturation: 94%.05/14/2019 09:58 BP: 138/85. MAP: 102. HR: 91. RR: 18. O2 saturation: 94%. Temp: 97.2 F. Pain levelnow: 01/22. Have been reviewed. Oxygen saturation normal.Appearance: [...] that the findings are unchanged(05-07-19). Interpretation time: 10:29 05/14/2019.Laboratory Tests: Laboratory tests have been ordered, with [...] 40.0) 4 Clinical Report - Physicians/Mid Levels [facility] Emergency Department [address] [place] [address] Phone #: ext- [phone] 05/14/2019 09:45 Patient: [...] READ BACK CALLED TO DR. ARREAGA BY: [facility] DATE/TIME 05.14.19 @ 1140 BUN 13 MG/DL [...] Male GFR Interprentation 20-49 yrs >60 mL/min Ffkqeo55-50 yrs >56 mL/min Normal 60-69 yrs >49 mL/min Normal 70-79yrs>42 mL/min Normal 80 and above >35 mL/min Normal Female GFRInterpretation 20-39 yrs >60 mL/min Normal 40-49 yrs >58 mL/minNormal 50- 59 yrs >51 mL/min Normal 60-69 yrs >45 mL/min Rndlpk60-07 yrs >39 mL/min Normal 80 and above [...] disease 5 Clinical Report - Physicians/Mid Levels [facility] Emergency Department [address] [place] [address] Phone #: ext- [phone] 05/14/2019 09:45 Patient: [...] ng/ml Recommended as the clinical threshold value Ana María Powell.Chest Portable 1 View: (ROSARIO: 05/14/2019 10:22) ( MsgRcvd 05/14/2019 11:17) In Progress Exam CHEST PORTABLE [facility] [address] [place] [address] PHONE: [phone] FAX: [phone] Name .................. : DIMA Garcia Acct Number.................. : [id number] ROOM. ................. : TR-07 Number ................... : [id number] Stay type ............. : E/R Discharge Date......... ... : Admit Date ......... : 05/14/19 Admit Phys .................... : WHITLEY OLMSTEAD Date of ....... : 1955 Family Phys ................... : TRU WATERMAN Phone .................. : [phone] Age ................................ : 64 Film# .................. .:[id number] Sex ................................. : M Unsigned transcriptions are preliminary reports and do not represent a medical or legal document CHEST PORTABLE [id number] COMPLETE:05/14/19 10:22 [id number] Reason(s): weakness, cough PORTABLE CHEST X-RAY: INDICATION: [...] AMMON Bolaños. Examination was reviewed with Kelvin Atnonio MD, radiologist at the time of this dictation. Electronically Reviewed and Signed By DCTNAME , SIGNDATE, KGG Transcribe Initials: CHELLY , Transcribe Date: 05/14/19 11:02, Dictation Date: <<REPDIST>> Page1 of 1 6 Clinical Report - Physicians/Mid Levels [facility] Emergency Department [address] [place] [address] Phone #: ext- [phone] 05/14/2019 09:45 Patient: DONNY FAITH Sex: M : 1955 Age: 64y Venous Blood Gas: (ROSARIO: 05/14/2019 10:31) ( MsgRcvd 05/14/2019 10:51) Final results Test Result Flag [...] meds as prescribed and to f/u w RETAIL SALESMAN in 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 Patient counseled in [...] hyperglycemia. 7 Clinical Report - Physicians/Mid Levels [facility] Emergency Department [address] [place] [address] Phone #: ext- [phone] 05/14/2019 09:45 Patient: [...] 1 inhalation 2x a day.Advocate Insulin Pen [place]*.Aspir-81 Oral : Tablet Delayed Release 81 mg, 1 tablet daily.Basaglar* : 20 unita, at bedtime.[facility]* : [place].Claritin Oral : Tablet Chewable 5 mg, 1 [...] 3*.Follow-up: 8 Clinical Report - Physicians/Mid Levels [facility] Emergency Department [address] [place] [address] Phone #: ext- [phone] 05/14/2019 09:45 Patient: [...] rce(s) Supporting Document(s) ID Date Data Source [id number] 05/14/2019 09:46:00 AM EST [facility] Addenda for DONNY FAITH VisitID: [id number] Date: 7:54normal saline * IV Fluids 1000 cc bolusNormal saline IV Fluids Discontinued: bag #1 infused. Total amount infused: 1000 mL.(Electronically signed by Quoc Sandoval RN - 05/28/2019 7:54) Name Value Range Interpretation Code Description Data Raquel rce(s) Supporting Document(s) ID Date Data Source [id number] 05/15/2019 09:43:00 AM EST [facility] [address] [place] [address] PHONE: [phone] FAX: [phone] Name .................. : DIMA Garcia Acct Number.................. : [id number] ROOM. ................. : TR-07 Number ................... : [id number] Stay type ............. : E/R Discharge Date......... ... : Admit Date ......... : 05/14/19 Admit Phys .................... : WHITLEY OLMSTEAD Date of ....... : 1955 Family Phys ................... : TRU WATERMAN Phone .................. : [phone] Age ................................ : 64 Film# .................. .:[id number] Sex ................................. : M Unsigned transcriptions are preliminary reports and do not represent a medical or legal document CHEST PORTABLE [id number] COMPLETE:05/14/19 10:22 [id number] Reason(s): weakness, cough PORTABLE CHEST X- RAY: [...] MD , 05/15/19 09:44, KGG Transcribe Initials: DZ , Transcribe Date: 05/14/19 11:02, Dictation Date: Copy for: EMERGENCY DEPT via mode Copy for: 710 MED REC DISCHARGED Page 1 of 1 Name Value Range Interpretation Code Description Data Raquel rce(s) Supporting Document(s) ID Date Data Source [id number] 05/15/2019 01:02:00 [place] [address] RESPIRATORY CARE REPORT ==== ---------NAME------- NUMBER SEX AGE ADMIT DISC. XRAY# F/C TYPESMIT DONNY A [id number] 05/14/19 05/14/19 [id number] E/R DATE OF : 1955 M/R# [id number] #: [id number] TR-07 LOCATION: EMERGENCY DEPT EKG [id number] COMP LETE:05/14/19 15:40 [place] [id number] PHYSICIAN: WHITLYE OLMSTEAD Name Value Range Interpretation Code Description Data Raquel rce(s) Supporting Document(s) ID Date Data Source [id number] 05/14/2019 11:42:00 AM [facility] Name Value Range Interpretation Code Description Data Raquel rce(s) Supporting Document(s) COMPREHENSIVE METABOLIC PANEL [facility] COMPREHENSIVE METABOLIC PANEL Sodium [Moles/volume] in Serum or Plasma 131 mEq/L 134 - 153 L [facility] Potassium [Moles/volume] in Serum or Plasma 3.8 mEq/L 3.6 - 5.0 [facility] Chloride [Moles/volume] in Serum or Plasma 94 mEq/L 98 - 107 L [facility] Carbon dioxide, total [Moles/volume] in Serum or Plasma 24 MEQ/L 22 - 30 [facility] Glucose [Mass/volume] in Serum or Plasma 445 MG/DL 65 - 110 HH [facility] CHECKED IN DUPLICATE CALL/ READ BACK CALLED TO DR. WHITLEY Joe [facility]: [facility].14[facility]19 @ 1140 [facility] ospital BUN 13 MG/DL 7 - 21 [facility] al Creatinine [Mass/volume] in Serum or Plasma 0.6 MG/DL 0.7 - 1.5 L [facility] BUN/CREAT 22 8 - [facility] al Protein [Mass/volume] in Serum or Plasma 6.1 G/DL 6.3 - 8.2 L [facility] Albumin [Mass/volume] in Serum or Plasma 3.6 G/DL 3.9 - 5.0 L [facility] Globulin [Mass/volume] in Serum by calculation 2.5 GM/DL 2.4 - 3.2 [facility] A/G RATIO 1.4 0.8 - 2.0 [facility] Calcium [Mass/volume] in Serum or Plasma 8.8 MG/DL 8.4 - 10.2 [facility] Bilirubin.total [Mass/volume] in Serum or Plasma <0.7 MG/DL 0.2 - 1.3 [facility] Alkaline phosphatase [Enzymatic activity/volume] in Serum or Plasma 71 U/L 38 - 126 [facility] Aspartate aminotransferase [Enzymatic activity/volume] in Serum or Plasma 12 U/L 5 - 40 [facility] Alanine aminotransferase [Enzymatic activity/volume] in Seru m or Plasma 17 U/L 7 - 56 [facility] Anion gap 3 in Serum or Plasma 13.0 mmol/L 8.0 - 16.0 [facility] AGE 64 yrs [facility] NON-AA GFR >60 mL/min [facility] ital AFR AMER GFR >60 mL/min [facility] spital Male GFR In terprentation 20-49 yrs [...] >32 mL/min Normal ID Date Data Source [id number] 05/14/2019 11:15:00 AM [facility] Name Value Range Interpretation Code Description Data Raquel rce(s) Supporting Document(s) Lipase [Enzymatic activity/volume] in Serum or Plasma 27 U/L 13 - 60 [facility] ID Date Data Source [id number] 05/14/2019 11:13:00 AM [facility] Name Value Range Interpretation Code Description Data Raquel rce(s) Supporting Document(s) TROPONIN T 0.01 NG/ML 0.00 - 0.10 [facility] spital TROPONIN T0.1 ng/ml Recommended as the c linical threshold value forTroponin T. ID Date Data Source [id number] 05/14/2019 10:54:00 AM [facility] Value Range Interpretation Code Description Data Raquel rce(s) Supporting Document(s) Prothrombin time (PT) 14.4 SECONDS 11.0 - 15.5 [facility] INR in Platelet poor plasma by Coagulation assay 1.11 0.93 - 1. 23 [facility] aPTT in Blood by Coagulation assay 27.1 SECONDS 24.8 - 36.7 [facility] \\BLDo\\INR INTERPRETATION\\BLDx\\ Therapeutic range for Coumadin and [...] and other interferences. ID Date Data Source [id number] 05/14/2019 10:51:00 AM [facility] Name Value Range Interpretation Code Description Data Raquel rce(s) Supporting Document(s) pH of Serum or Plasma 7.39 7.32 - 7.43 [facility] pCO2 V 47.2 mm/HG 38.0 - 51.0 [facility] pO2 V 26.5 mm/HG 30.0 - 55.0 L [facility] pital Bicarbonate [Moles/volume] in Venous blood 27.9 meq/L 22.0 - 29.0 [facility] TCO2 V 29.4 meq/L 22.0 - 29.0 H [facility] pital Base excess in Blood by calculation 2.3 -2.0 - 2.0 H [facility] O2 SAT V 48.1 % 40.0 - 85.0 [facility] ital ID Date Data Source [id number] 05/14/2019 10:46:00 AM [facility] Name Value Range Interpretation Code Description Data [facility] Supporting Document(s) CBC W/AUTOMATED DIFF [facility] COMPLETE BLOOD COUNT Leukocytes [#/volume] in Blood by Automated count 7.8 10^3/uL 4.2 - 1 1.0 [facility] Erythrocytes [#/volume] in Blood by Automated count 4.25 10^6/uL 4. 50 - 6.30 L [facility] Hemoglobin [Mass/volume] in Blood 13.4 g/dL 14.0 - 16.0 L [facility] Hematocrit [Volume Fraction] of Blood by Automated count 38.3 % 4 1.0 - 51.0 L [facility] Erythrocyte mean corpuscular volume [Entitic volume] by Auto mated count 90.1 fL 80.0 - 94.0 [facility] Erythrocyte mean corpuscular hemoglobin [Entitic mass] by Automated count 31.5 pg 27.0 - 34.0 [facility] Erythrocyte mean corpuscular hemoglobin concentration [Mass/volume] by Automated count 35.0 g/dL 31.0 - 36.0 [facility] Erythrocyte distribution width [Ratio] by Automated count 13.0 % 11.5 - 14.8 [facility] Platelets [#/volume] in Blood by Automated count 210 10^3/uL 150 - 45 0 [facility] Platelet mean volume [Entitic volume] in Blood by Automated count 9.2 fL 7.4 - 10.4 [facility] Neutrophils/100 leukocytes in Blood by Automated count 61.1 % 37. 0 - 80.0 [facility] Lymphocytes/100 leukocytes in Blood by Manual count 28.1 % 25.0 - 40.0 [facility] Monocytes/100 leukocytes in Blood by Automated count 6.0 % 3.0 - 8.0 [facility] Eosinophils/100 leukocytes in Blood by Automated count 3.5 % 0.0 - 7.0 [facility] Basophils/100 leukocytes in Blood by Automated count 0.4 % 0.0 - 2.0 [facility] %IG 0.9 % 0.0 - 0.0 [facility] %NRBC 0.0 % 0.0 - 0.0 [facility] al Neutrophils [#/volume] in Blood by Automated count 4.75 10^3/uL 2.00 - 6.90 [facility] Lymphocytes [#/volume] in Blood by Automated count 2.18 10^3/uL 0.60 - 3.40 [facility] Monocytes [#/volume] in Blood by Automated count 0.47 10^3/uL 0.00 - 0.90 [facility] Eosinophils [#/volume] in Blood by Automated count 0.27 10^3/uL 0.00 - 0.70 [facility] Basophils [#/volume] in Blood by Automated count 0.03 10^3/uL 0.00 - 0.20 [facility] #IG 0.07 10^3/uL 0.00 - 0.10 [facility] ospital #NRBC 0.00 10^3/uL 0.00 - 0.00 [facility] osp[facility] MANUAL DIFF NOT INDICATED [facility] RBC MORPH NOT INDICATED [facility] spital ID Date Data Source [id number] 05/14/2019 10:47:00 AM EST [facility] Name Value Range Interpretation Code Description Data Raquel rce(s) Supporting Document(s) [facility]IS [facility] URINALYSIS SOURCE R [facility] COLOR yellow NORMAL: Yellow [facility] ospital CLARITY clear NORMAL: Clear [facility] spital Specific gravity of Urine by Test strip 1.015 1.001 - 1.030 [facility] pH 6.5 5 - 9 [facility] al Glucose [Mass/volume] in Urine by Test strip 1000 NORMAL: Negat [facility] Bilirubin.total [Presence] in Urine by Test strip NEG NORMAL: Negative [facility] Ketones [Presence] in Urine by Test strip NEG NORMAL: Negative [facility] Protein [Mass/volume] in Urine by Test strip NEG NORMAL: [facility] Nitrite [Presence] in Urine by Test strip NEG NORMAL: Negative [facility] BLOOD NEG NORMAL: Negative [facility] Leukocyte esterase [Presence] in Urine by Test strip NEG SANDRA L: Negative [facility] Urobilinogen [Mass/volume] in Urine by Test strip NOR less jenniffer n 1.0 mg/dL [facility] MICROSCOPIC See Below [facility] ital WBC None Seen NORMAL: NONE SEEN [facility] Erythrocytes [#/volume] in Urine by Test strip None Seen NORMAL: NON E SEEN [facility] EPITHELIAL FEW NORMAL: NONE SEEN [facility] Bacteria [Presence] in Urine sediment by Light microscopy No ne Seen NORMAL: NONE SEEN [facility] YEAST None [facility]en [facility] ID Date Data Source [id number] 05/09/2019 12:33:00 PM EST [facility] [address] [place] [address] RESPIRATORY CARE REPORT ==== ---------NAME------- NUMBER SEX AGE ADMIT DISC. XRAY# F/C AUTUMN Garcia [id number] 05/07/19 05/07/19 [id number] MB4 E/R DATE OF : 1955 M/R# [id number] PH#: [phone] VT-08 LOCATION: EMERGENCY DEPT EKG 59038 COMP LETE:05/08/19 02:44 [place]MT [id number] PHYSICIAN: WHITLEY OLMSTEAD Name Value Range Interpretation Code Description Data Raquel rce(s) Supporting Document(s) ID Date Data Source [id number] 05/08/2019 09:35:00 [place] [address] PHONE: [phone] FAX: [phone] Name .................. : DIMA Garcia Acct Number.................. : [id number] ROOM. ................. : Number ................... : [id number] Stay type ............. : E/R Discharge Date......... ... : 05/07/19 Admit Date ......... : 05/07/19 Admit Phys .................... : WHITLEY OLMSTEAD Date of ....... : 1955 Family Phys ................... : TRU WATERMAN Phone .................. : [phone] Age ................................ : 64 Film# .................. .:[id number] Sex ................................. 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 PORTABLE CHEST X-RAY: COMPARISON: 12/16/18 FINDINGS: [...] By Barron Maguire MD , 05/08/19 09:35, [facility] Transcribe Initials: CHELLY , Transcribe Date: 05/08/19 09:01, Dictation Date: Copy for: EMERGENCY DEPT via [facility] Copy for: 710 MED REC DISCHARGED Page 1 of 1 Name Value Range Interpretation Code Description Data Raquel rce(s) Supporting Document(s) ID Date Data Source [id number] 05/07/2019 06:37:00 PM EST [facility] 1 OrderSheet [facility] Emergency Department [address] [place] [address] Phone #: [phone] 05/07/2019 18:37 [id number] Sex: M : 1955 Age: 64yWEIGHT:75.2 kg (M) HEIGHT:68 inches (S) BMI:25.2ALLERGIES: Acetaminophen, Benadryl, [place], Motrin, Paxil, Penicillins, ThorazineCHIEF COMPLAINT: dyspnea, COPDDIAGNOSIS: Bronchitis, Chronic obstructive lung diseaseLAB ORDERSOrder Description Priority Entered Acknowledged InitialedCB w Diff STAT 19:05/07/2019 19:08 Rangel Arreaga, [place] 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Rk M.D.; Srfc5KXI STAT 19:05/07/2019 19:08 Rangel Arreaga [place] 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, Rk IZAGUIRRE M.D.; Sgpr8Qnhtzq STAT 19:01 05/07/2019 19:08 Rangel Arreaga [place] 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Rk M.D.; Upfo2MD/PTT STAT 19:01 05/07/2019 19:08 Rangel Arreaga, [place] 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Rk M.D.; Adpo2Rmzbgrhs-E STAT 19:01 05/07/2019 19:08 Rangel Arreaga [place] 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Rk M.D.; Bikr5B-Cpteq STAT 19:01 05/07/2019 19:08 Rangel Arreaga [place] 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Rk M.D.; Borj9OMV STAT 19:01 05/07/2019 19:08 Rangel Arreaga [place] 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Rk M.D.; Hbje8Opnzho Acid STAT 19:02 05/07/2019 19:08 Rangel Arreaga [place] 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Rk M.D.; Iwsj3Zbetu Culture STAT 19:02 05/07/2019 19:08 Ejmqrriu20r X2 (Sched [place] Arreaga 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kR19:02 05/07/2019) Bubba; Kiyo6Wqcud Culture STAT 19:02 05/07/2019 19:12 Zopadmini, Fhomuf67s X2 (Sched [place] Arreaga R.N.19:12 05/07/2019Melvi Mac;Venous Blood Gas STAT 19:02 05/07/2019 19:12 Zoss, July 2 OrderSheet [facility] Emergency Department [address] [place] [address] Phone #: ext- [phone] 05/07/2019 18:37 Patient: DONNY FAITH Sex: M : 1955 Age: 64y [place] Arreaga R.N., M.D.;Influenza Nasal A B STAT 19:05/07/2019 19:12 Zoss, July [place] Arreaga R.N., M.D.; Reason for ordering with alerts: Clinical consideration given -- 19:05/07/2019 [place] Arreaga M.D.DIAGNOSTIC STUDY ORDERSOrder Description Priority Entered Acknowledged InitialedChest Portable 1 STAT 19:05/07/2019 19:08 [facility] ([facility]? [place] Arreaga 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, Rk IZAGUIRRE(Yes)) Bubba; Tech1 Reason for Study: COPD, Shortness of BreathMEDICATION/IV/DRIP/FLUID ORDERSOrder Description Priority Entered Acknowledged InitialedDuoNeb Neb Tx 3 19:02 05/07/2019 19:18 Zoss, JulymL [place] Arreaga R.N., M.D.; Reason for ordering with alerts: Clinical consideration given -- 19:05/07/2019 [place] Arreaga M.D.SOLU-Medrol 125 19:02 05/07/2019 19:16 Zoss, Julymg IV X1 Dose: 125 Andrea Arreagacardo R.N.mg (X1) Bubba; Reason for ordering with alerts: Clinical consideration given -- 19:02 05/07/2019 [place] Arreaga M.D.NS IV 500 mL 19:03 05/07/2019 19:15 Zopadmini, JulyBolus: : Bolus 500 Kiritrin, [place] R.N.mL, then 150 mL/hr M.D.;(X1)Ativan PO 1 mg 20:12 05/07/2019 20:14 Santiago, July [place] Arreaga R.N., M.D.;GENERAL ORDERSOrder Description Priority Entered Acknowledged InitialedBlood Pressure 19:05/07/2019 19:05 [place] Bartholomew RN, M.D.;French Weaver 19:05/07/2019 19:05 Lloyd(continuous) [place] Arreaga RN, M.D.; 3 OrderSheet [facility] Emergency Department [address] [place] [address] Phone #: ext- [phone] 05/07/2019 18:37 Patient: DONNY FAITH Sex: M : 1955 Age: 64yEKG 19:05/07/2019 19:05 [place] Vazquez RN, M.D.;NPO 19:05/07/2019 19:05 [place] Vazquez RN, M.D.;Obtain Old EKG 19:05/07/2019 19:12 Santiago, July [place] Arreaga R.N., M.D.;Obtain Old Records 19:05/07/2019 19:12 Santiago, July [place] Arreaga R.N., M.D.;Oxygen (3 L/min) 19:05/07/2019 19:12 SantiagoJuly(NC) (Titrate to O2 [place] Arreaga.NPadmaSat >92%) Bubba;Oxygen titrate to 19:05/07/2019 19:12 SantiagoJuly92% [place] Arreaga.NPadma Mac;Pulse oximeter 19:05/07/2019 19:05 Lloyd(Continuous) [place] Arreaga RN, M.D.;Saline Lock 19:05/07/2019 19:05 [place] Vazquez RN, M.D.;Vitals 19:05/07/2019 19:05 [place] Vazquez RN, M.D.;[Electronically signed by Latonya Henderson R.N. (20:31 05/07/2019)][Electronically signed by [place] Arreaga M.D. (20:59 05/07/2019)][Electronically locked by Latonya Henderson R.N. (:05/07/2019)] Name Value Range Interpretation Code Description Data Raquel rce(s) Supporting Document(s) ID Date Data Source [id number] 05/07/2019 06:37:00 PM EST [facility] 1 Medication Reconciliation Report [facility] Emergency Department [address] [place] [address] Phone #: ext- [phone] 05/07/2019 18:37 Patient: DONNY FAITH Sex: M : 1955 Age: 64yWeight: 75.2 kgHeight/Length: 68 in.BMI: 25.2ALLERGIES: Acetaminophen, Benadryl, [place], Motrin, Paxil, Penicillins, ThorazineThe patient's Home Medications are listed below:CONTINUE TAKING THE FOLLOWING MEDICATIONS: Advair Diskus Inhalation (500-50 mcg/dose) 1 inhalation, 2x a day Advocate Insulin Pen [place] Aspir-81 Oral (81 mg) 1 tablet, daily Basaglar 20 unita, at bedtime [facility] Claritin Oral (5 mg) 1 tablet, [...] 2x a day 2 Medication Reconciliation Report [facility] Emergency Department [address] [place] [address] Phone #: ext [phone] 05/07/2019 18:37 Patient: DONNY FAITH Sex: [...] Dispense 10 tablet. Refills: 0.Substitution permitted.Pharmacy - [facility] [place], [place] - [address] [place] [address] ; [place], [place] [id number]. .Tessalon Perles 100 mg capsule Take 1 capsule three times a day for 5 days -- Dispense 15 capsule.Refills: 1. Substitution permitted.Pharmacy - [facility] [place], [place] - [address] [place] [address] ; [place], [place] [id number]. . -- [place] Arreaga M.D. Name Value Range Interpretation Code Description Data Raquel rce(s) Supporting Document(s) ID Date Data Source [id number] 05/07/2019 06:37:00 PM EST [facility] 1 Medication Administration Record [facility] Emergency Department [address] [place] [address] Phone #: ext- [phone] 05/07/2019 18:37 Patient: DONNY FAITH Sex: M : 1955 Age: 64yWeight: 75.2 kgHeight/Length: 68 inBMI: 25.2ALLERGIES: Acetaminophen, Benadryl, [place], Motrin, Paxil, Penicillins, Thorazine Date/Time Medication Administered Medication OrderedGiven DUONEB [NEB TX] DuoNeb Espinoza Tx 3 mL19:18 05/07/2019 Dose: 1 unit dose Espinoza TXZoLatonya washington, R.N.Given SOLU-MEDROL [IVP] SOLU-Medrol 125 mg IV X1 Dose:19:16 05/07/2019 (METHYLPREDNISOLONE SODIUM 125 mg (X1)Santiago Latonya, R.N. SUCC) Dose: 125 mg IVP Site: #1 right upper armStart NS [IV] NS IV 500 mL Bolus: : Bolus 85460:15 05/07/2019 Dose: IV Fluids mL, then 150 mL/hr (X1)Latonya Henderson, R.N. Rate: 125 mL/hr---- Bolus: 500 mL over 30 minute(s)Stop Dispensed: 1000 mL bag20:15 05/07/2019 Site: #1 right upper armZoss, July, R.N.Given ATIVAN [PO] (LORAZEPAM) Ativan PO 1 mg20:14 05/07/2019 Dose: 1 mg POZoss, Latonya, R.N. Name Value Range Interpretation Code Description Data Raquel rce(s) Supporting Document(s) ID Date Data Source [id number] 05/07/2019 06:37:00 PM EST [facility] 1 General Instructions [facility] Emergency Department [address] [place] [address] Phone #: ext- [phone] 05/07/2019 18:37 Patient: DONNY FAITH Sex: M : 1955 Age: 64y Acute [...] inhalation 2x a day. Advocate Insulin Pen [place]*. Aspir-81 Oral : Tablet Delayed Release 81 mg, 1 tablet daily. Basaglar* : 20 unita, at bedtime. [facility]*. Claritin Oral : Tablet Chewable [...] puffs q8h, prn, sob. 2 General Instructions [facility] Emergency Department [address] [place] [address] Phone #: ext- [phone] 05/07/2019 18:37 Patient: DONNY FAITH Sex: M : 1955 Age: 64yZ pack 1 tab day pt on day 3*.Prescription Medications:prednisone 20 mg tablet Take 2 tablet once a day for 5 days -- Dispense 10 tablet. Refills: 0.Substitution permitted.Pharmacy - [facility]- [address] ; [place], [place] [id number]. .Tessalon Perles 100 mg capsule Take 1 capsule three times a day for 5 days -- Dispense 15 capsule.Refills: 1. Substitution permitted.[facility] - [address] ; [place], [place] [id number]. .Follow-up:Return to the emergency department as needed. [...] ADDITIONAL INFORMATIONViral Bronchitis (Adult) 3 General Instructions [facility] Emergency Department [address] [place] [address] Phone #: ext- [phone] 05/07/2019 18:37 Patient: [...] back to your usual 4 General Instructions [facility] Emergency Department [address] [place] [address] Phone #: ext- [phone] 05/07/2019 18:37 Patient: DONNY FAITH Sex: M : 1955 Age: 64y activities, don't let yourself get too tired. Do not smoke. Also avoid being exposed to secondhand smoke. You may use uqyk-njs-impdwds medicine to control fever or pain, unless [...] loosen secretions in the nose and lungs. Zxdm-ttt-yzauebs cough, cold, and sore-throat medicines will not [...] headache, or stiff neck 5 General Instructions [facility] Emergency Department [address] [place] [address] Phone #: qyo- [phone] 05/07/2019 18:37 Patient: DONNY FAITH Sex: M : 1955 Age: 64y Trouble breathing, wheezing, or pain with breathing [id number] [employer]. [address] [place] [address]. All rights reserved. This information is not [...] are having a flare-up: 6 General Instructions [facility] Emergency Department [address] [place] [address] Phone #: ext- [phone] 05/07/2019 18:37 Patient: [...] have been told to. 7 General Instructions [facility] Emergency Department [address] [place] [address] Phone #: ext- [phone] 05/07/2019 18:37 Patient: [...] new findings that may affect your care.Call [id number] if any of these occur: You have trouble breathing You feel confused or it's difficult to wake you up You faint or lose consciousness You have a rapid heart rate You have new pain in your chest, arm, shoulder, neck or upper back 8 General Instructions [facility] Emergency Department [address] [place] [address] Phone #: ext- [phone] 05/07/2019 18:37 Patient: [...] your ankles gets worse Dizziness or weakness [id number] [employer]. [address] [place] [address]. All rights reserved. This information is not intended as asubstitute for professional medical care. Always follow your healthcare professional's instructions.Viral Bronchitis (Adult) 9 General Instructions [facility] Emergency Department [address] [place] [address] Phone #: ext- [phone] 05/07/2019 18:37 Patient: [...] go back to your usual 10 General Instructions [facility] Emergency Department [address] [place] [address] Phone #: fon- [phone] 05/07/2019 18:37 Patient: DONNY FAITH Sex: M : 1955 Age: 64y activities, don't let yourself get too tired. Do not smoke. Also avoid being exposed to secondhand smoke. You may use gugj-ewy-lffpdcq medicine to control fever or pain, unless [...] loosen secretions in the nose and lungs. Idvk-jso-zqkrtis cough, cold, and sore-throat medicines will not [...] headache, or stiff neck 11 General Instructions [facility] Emergency Department [address] [place] [address] Phone #: ext- [phone] 05/07/2019 18:37 Patient: DONNY FAITH Sex: M : 1955 Age: 64y Trouble breathing, wheezing, or pain with breathing [phone] [employer]. [address] [place] [address]. All rights reserved. This information is not intended as asubstitute for professional medical care. Always follow your healthcare professional's instructions. You have been given the following additional information: Bronchitis, No Antibiotic (Adult) COPD Flare Bronchitis, No Antibiotic (Adult )(Electronically signed by Denver Arreaga M.D. 05/07/2019 20:59) Name Value Range Interpretation Code Description Data Raquel rce(s) Supporting Document(s) ID Date Data Source [id number] 05/07/2019 06:37:00 PM [facility] 1 Clinical Report - Nurses [facility] Emergency Department [address] [place] [address] Phone #: ext- [phone] 05/07/2019 18:37 Patient: [...] nausea yesterday and none today). EMS Treatment REGIONAL FACILITIES SPECIALIST: EMS treatment verbally communicated and report reviewed. See report. SEPSIS SCREEN: NEGATIVE heart rate greater than 90. ISSA COMA SCORE: 15- eyes open- spontaneous (4); [...] inhalation, 2x a day. Advocate Insulin Pen [place]. Aspir-81 Oral (Tablet Delayed Release 81 mg) 1 tablet, daily. Basaglar 20 unita, at bedtime. [facility]. Claritin Oral (Tablet Chewable 5 mg) [...] HFA Inhalation. 2 Clinical Report - Nurses [facility] Emergency Department [address] [place] [address] Phone #: ext- [phone] 05/07/2019 18:37 Patient: DONNY FAITH Sex: M [...] on day 3. --18:40 05/07/19 Lloyd Dixon RN.AllergiesAcetaminophen.Benadryl.[place].Motrin.Paxil.Penicillins.Thorazine. --18:40 05/07/19 Lloyd Dixon RN.HistoryPAST MEDICAL HX: [...] Dixon RN. 3 Clinical Report - Nurses [facility] Emergency Department [address] [place] [address] Phone #: ext- [phone] 05/07/2019 18:37 Patient: [...] shown to the ED physician. --18:59 05/07/19 [place] 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, Rk, ZINA Tech1 Oxygen administered by nasal cannula at 2 liters. environmental monitoring technician, pulse oximeter and NIBP monitor placed on [...] swab done and sent to lab with dental laboratory technology teacher.). --19:19 05/07/19 Latonya Henderson R.N. 19:15 05/07/2019 Started bag #1 1000 mL [...] medication. Verbalizes understanding. --19:15 05/07/19 Latonya Henderson R.N. 19:16 05/07/2019 Solu-Medrol (methylPREDNISolone Sodium Succ) IVP 125 mg given via site #1. Allergies verified and confirmed 5 rights. IV patency established. IV site checked: no pain, redness, or swelling. IV flushed thoroughly pre- and post- medication administration. IVP given by RN. Information reviewed with patient including reason for taking this medication. Verbalizes understanding. --19:16 05/07/19 Santiago LatonyaDustin 19:18 05/07/2019 Duoneb Neb [place] 1 unit dose given. Given by the nurse. Allergies verified and confirmed 5 rights. Information reviewed with patient including reason for taking this medication. Verbalizes understanding. --19:18 05/07/19 Latonya Henderson R.N. 4 Clinical Report - Nurses [facility] Emergency Department [address] [place] [address] Phone #: ext- [phone] 05/07/2019 18:37 Patient: [...] and sedative warning. Verbalizes understanding. --20:14 05/07/19 Santiago July R.N. 20:14 05/07/19. BP: 142/79. MAP: 100. HR: 106. RR: 22. O2 saturation: 99%. Pain level now: 0/10. --20:14 05/07/19 Santiago Latonya, R.N. Intake Output Urine output: 475 mL measured, voided with return of yellow- colored clear urine. --18:52 05/07/19 Lloyd Dixon RN.DISPOSITION / DISCHARGE Condition at departure: improved and stable. --20:15 05/07/19 Santiago July R.N. 20:14 05/07/19. BP: 142/79. MAP: 100. HR: 105. RR: 22. O2 saturation: 97%. Temp: 97.1 F (oral). Pain level now: 0/10. --20:15 05/07/19 Santiago July R.N. 20:15 05/07/2019 IV Fluids NS via IV site #1 Discontinued: bag #1 STOPPED upon discharge. Total amount infused: 500 mL. IV patency established. IV site checked: no pain, redness, or swelling. IV flushed thoroughly. --20:16 05/07/19 Santiago JulyCordellNPadma 20:19 05/07/2019 Site #1 removed upon discharge. Catheter intact. Bandaid applied. --20:19 05/07/19 Latonya Henderson RPadmaN. No learning barriers present. Reviewed medication(s). Treatments reviewed. Patient verbalized understanding. Written instructions provided in Azeri. The patient was discharged by the physician. He was discharged home. He left ambulatory a nd via taxi. 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 --20:30 05/07/19 Latonya Henderson R.N. ( sandwich provided, pt waiting on medicaid cab to go home.). --20:31 05/07/19 Latonya Henderson R.N.Locked/Released at 05/07/2019 20:31 by Latonya Henderson R.N. 5 Clinical Report - Nurses [facility] Emergency Department [address] [place] [address] Phone #: ext- [phone] 05/07/2019 18:37 Patient: DONNY FAITH Sex: M : 1955 Age: 64y Name Value Range Interpretation Code Description Data Raquel rce(s) Supporting Document(s) ID Date Data Source [id number] 05/07/2019 06:37:00 PM [facility] 1 Clinical Report - Physicians/Mid Levels [facility] Emergency Department [address] [place] [address] Phone #: ext- [phone] 05/07/2019 18:37 Patient: [...] Hypercholesterolemia. 2 Clinical Report - Physicians/Mid Levels [facility] Emergency Department [address] [place] [address] Phone #: ext- [phone] 05/07/2019 18:37 [id number] Sex: M : 1955 Age: 64y Hypertension. [...] inhalation, 2x a day. Advocate Insulin Pen [place]. Aspir-81 Oral (Tablet Delayed Release 81 mg) 1 tablet, daily. Basaglar 20 unita, at bedtime. [facility]. Claritin Oral (Tablet Chewable 5 mg) 1 tablet, daily at bedtime. Allergies: Acetaminophen. Benadryl. [place]. Motrin. Paxil. Penicillins. Thorazine.SOCIAL HISTORYHeavy tobacco smoker- 1-2 packs per day. No alcohol use or drug use.ADDITIONAL NOTES 3 Clinical Report - Physicians/Mid Levels [facility] Emergency Department [address] [place] [address] Phone #: ext- [phone] 05/07/2019 18:37 Patient: [...] process. Lactic Acid: (ROSARIO: 05/07/2019 19:15) ( IagRcvd 05/07/2019 19:33) Final results Test Result Flag Units (Reference) LACTIC ACID 2.0 MMOL/L (0.2 - 2.2) Venous Blood Gas: (ROSARIO: 05/07/2019 19:15) ( MsgRcvd 05/07/2019 19:33) Final results Test Result Flag [...] Nasal A B: (ROSARIO: 05/07/2019 19:15) ( MsgRcvd 05/07/2019 19:41) Final results Test Result Flag Units (Reference) INFLUENZA A NEGATIVE (NORMAL: NEGAT INFLUENZA B NEGATIVE (NORMAL: NEGAT INFLUENZA A REENTER NEGATIVE (NORMAL: NEGAT INFLUENZA B REENTER NEGATIVE (NORMAL: NEGAT PROCEDURAL CONTROL VALID KIT LOT # _[id number] Clinical Report - Physicians/Mid Levels [facility] Emergency Department [address] [place] [address] Phone #: ext- [phone] 05/07/2019 18:37 Patient: DONNY FAITH Sex: M : 1955 Age: 64y01.MISAEL. KIT EXP DATE _16-57-08 14/23/20.MISAEL.The Influenza A utilizing an isothermal nucleic acid [...] Male GFR Interprentation 20-49 yrs >60 mL/min Mnsybk27-98 yrs >56 mL/min Normal 60 -69 yrs >49 mL/min Normal 70-79yrs>42 mL/min Normal 80 and above >35 mL/min Normal Female GFRInterpretation 20-39 yrs >60 mL/min Normal 40-49 yrs >58 mL/min 5 Clinical Report - Physicians/Mid Levels [facility] Emergency Department [address] [place] [address] Phone #: ext- [phone] 05/07/2019 18:37 Patient: DONNY FAITH Sex: M : 1955 Age: 64y Normal 50-59 yrs >51 mL/min Normal 60-69 yrs >45 mL/min Normal 70-79 yrs >39 mL/min Normal 80 and above >32 mL/min Normal Lipase: (ROSARIO: 05/07/2019 19:15) ( MsgRcvd 05/07/2019 19:58) Final results Test Result Flag Units (Reference) LIPASE 24 U/L (13 - 60) PT/PTT: (ROSARIO: 05/07/2019 19:15) ( [facility] 05/07/2019 19:34) Final results Test Result Flag [...] other interferences. Troponin-T: (ROSARIO: 05/07/2019 19:15) ( [facility] 05/07/2019 19:52) Final results Test Result Flag Units (Reference) TROPONIN T <0.01 NG/ML (0.00 - 0.10) TROPONIN T0.1 ng/ml Recommended as the clinical threshold value forTroponin T. D-Dimer: (ROSARIO: 05/07/2019 19:15) ( [facility] 05/07/[facility] 19:33) Final results Test Result Flag Units (Reference) D-DIMER QUANT 0.44 ug/mL (0.27 - 0.50) BNP: (ROSARIO: 05/07/2019 19:15) ( [facility] 05/07/2019 19:56) Final results Test Result Flag Units (Reference) BNP 6 PG/ML (0 - 125) Chest Portable 1 View: (ROSARIO: 05/07/2019 19:01) ( [facility] 05/07/2019 19:31) In Progress CHEST [...] treatment. 6 Clinical Report - Physicians/Mid Levels [facility] Emergency Department [address] [place] [address] Phone #: ext- [phone] 05/07/2019 18:37 Patient: [...] inhalation 2x a day. Advocate Insulin Pen [place]*. Aspir-81 Oral : Tablet Delayed Release 81 mg, 1 tablet daily. Basaglar* : 20 unita, at bedtime. [facility]*. Claritin Oral : Tablet Chewable [...] 3*. 7 Clinical Report - Physicians/Mid Levels [facility] Emergency Department [address] [place] [address] Phone #: ext- [phone] 05/07/2019 18:37 Patient: DONNY FAITH Sex: M : 1955 Age: 64y Prescription Medications: prednisone 20 mg tablet Take 2 tablet once a day for 5 days -- Dispense 10 tablet. Refills: 0. Substitution permitted. Pharmacy - [facility]- [place], [place] - [address] [place] [address] ; [place], [place] [id number]. . Merary Perles 100 mg capsule Take 1 capsule three times a day for 5 days -- Dispense 15 capsule. Refills: 1. Substitution permitted. Pharmacy - [facility]- [place], [place] - [address] [place] [address] ; [place], [place] [id number]. . Follow-up: Return to the emergency department [...] rce(s) Supporting Document(s) ID Date Data Source [id number] 05/13/2019 10:07:00 PM [facility] Name Value Range Interpretation Code Description Data Raquel rce(s) Supporting Document(s) CULTURE BLOOD [facility] _CULTURE BLOOD_ TEST PERFORM ED AT [address] [address] CLIA# [id number] SEE SCANNED REPORT{ PRELIM ID Date Data Source [id number] 05/13/2019 09:45:00 AM [facility] [address] Name Value Range Interpretation Code Description Data Raquel rce(s) Supporting Document(s) Bacteria identified in Blood by Culture [facility] NO GROWTH AFTER 5 DAYS ID Date Data Source [id number] 05/13/2019 10:06:00 PM [facility] Name Value Range Interpretation Code Description Data Raquel rce(s) Supporting Document(s) CULTURE BLOOD [facility] _CULTURE BLOOD_ TEST PERFORM ED AT [address] [address] CLIA# [id number] SEE SCANNED REPORT{ PRELIM ID Date Data Source [id number] 05/07/2019 08:01:00 PM EST [facility] Name Value Range Interpretation Code Description Data Raquel rce(s) Supporting Document(s) COMPREHENSIVE METABOLIC PANEL [facility] COMPREHENSIVE METABOLIC PANEL Sodium [Moles/volume] in Serum or Plasma 134 mEq/L 134 - 153 [facility] Potassium [Moles/volume] in Serum or Plasma 3.9 mEq/L 3.6 - 5.0 [facility] Chloride [Moles/volume] in Serum or Plasma 97 mEq/L 98 - 107 L [facility] Carbon dioxide, total [Moles/volume] in Serum or Plasma 24 MEQ/L 22 - 30 [facility] Glucose [Mass/volume] in Serum or Plasma 336 MG/DL 65 - 110 H [facility] BUN 19 MG/DL 7 - 21 [facility] al Creatinine [Mass/volume] in Serum or Plasma 0.7 MG/DL 0.7 - 1.5 [facility] BUN/CREAT 27 8 - 27 [facility] Protein [Mass/volume] in Serum or Plasma 7.1 G/DL 6.3 - 8.2 [facility] Albumin [Mass/volume] in Serum or Plasma 4.5 G/DL 3.9 - 5.0 [facility] Globulin [Mass/volume] in Serum by calculation 2.6 GM/DL 2.4 - 3.2 [facility] A/G RATIO 1.7 0.8 - 2.0 [facility] Calcium [Mass/volume] in Serum or Plasma 10.0 MG/DL 8.4 - 10.2 [facility] Bilirubin.total [Mass/volume] in Serum or Plasma 0.7 MG/DL 0.2 - 1.3 [facility] Alkaline phosphatase [Enzymatic activity/volume] in Serum or Plasma 89 U/L 38 - 126 [facility] Aspartate aminotransferase [Enzymatic activity/volume] in Serum or Plasma 14 U/L 5 - 40 [facility] Alanine aminotransferase [Enzymatic activity/volume] in Seru m or Plasma 18 U/L 7 - 56 [facility] Anion gap 3 in Serum or Plasma 13.0 mmol/L 8.0 - 16.0 [facility] AGE 64 yrs [facility] NON-AA GFR >60 mL/min [facility] AFR AMER GFR >60 mL/min [facility] Male GFR In terprentation 20-49 [...] >32 mL/min Normal ID Date Data Source [id number] 05/07/2019 07:58:00 PM [facility] Name Value Range Interpretation Code Description Data Raquel rce(s) Supporting Document(s) Lipase [Enzymatic activity/volume] in Serum or Plasma 24 U/L 13 - 60 [facility] ID Date Data Source [id number] 05/07/2019 07:56:00 PM [facility] Name Value Range Interpretation Code Description Data Raquel rce(s) Supporting Document(s) BNP 6 PG/ML 0 - 125 [facility] al ID Date Data Source [id number] 05/07/2019 07:51:00 PM [facility] Name Value Range Interpretation Code Description Data Raquel rce(s) Supporting Document(s) TROPONIN T <0.01 NG/ML 0.00 - 0.10 [facility]ital TROPONIN T0.1 ng/ml Recommended as the c linical threshold value forTroponin T. ID Date Data Source [id number] 05/07/2019 07:41:00 PM [facility] Name Value Range Interpretation Code Description Data Raquel rce(s) Supporting Document(s) Influenza virus A Ag [Presence] in Nasopharynx by Immunoassa y NEGATIVE NORMAL: NEGATIVE [facility] Influenza virus B Ag [Presence] in Nasopharynx by Immunoassa y NEGATIVE NORMAL: NEGATIVE [facility] NEGATIVENEGATIVE PROCEDURAL CO NTROL VALID KIT LOT # _[id number] 05/07/19.MISAEL. KIT EXP DATE _23-28-24 05/07/19.MISAEL.The Influenza A & B assay is a rapid molecular in vitro diagnostic testutilizing an isothermal nucleic acid amplification technology for thequalitative detection of influenza A and B viral RNA.Negative results do not preclude influenza virus infection and should not beused as the sole basis for diagnosis, treatment or other patient managementdecisions. ID Date Data Source [id number] 05/07/2019 07:34:00 PM [facility] Name Value Range Interpretation Code Description Data Raquel rce(s) Supporting Document(s) Prothrombin time (PT) 13.9 SECONDS 11.0 - 15.5 [facility] INR in Platelet poor plasma by Coagulation assay 1.06 0.93 - 1. 23 [facility] aPTT in Blood by Coagulation assay 30.5 SECONDS 24.8 - 36.7 [facility] \\BLDo\\INR INTERPRETATION\\BLDx\\ Therapeutic range for Coumadin and [...] and other interferences. ID Date Data Source [id number] 05/07/2019 07:33:00 PM [facility] Name Value Range Interpretation Code Description Data Raquel rce(s) Supporting Document(s) pH of Serum or Plasma 7.44 7.32 - 7.[address] [facility] pCO2 V 34.2 mm/HG 38.0 - 51.0 L [facility] pital pO2 V 128.9 mm/HG 30.0 - 55.0 H [facility] spital Bicarbonate [Moles/volume] in Venous blood 22.8 meq/L 22.0 - 29.0 [facility] TCO2 V 23.9 meq/L 22.0 - 29.0 [facility] Base excess in Blood by calculation -0.6 -2.0 - 2.0 [facility] O2 SAT V 99.0 % 40.0 - 85.0 H [facility] ID Date Data Source [id number] 05/07/2019 07:33:00 PM EST [facility] Name Value Range Interpretation Code Description Data Raquel rce(s) Supporting Document(s) Lactate [Moles/volume] in Serum or Plasma 2.0 MMOL/L 0.2 - 2.2 [facility] ID Date Data Source [id number] 05/07/2019 07:33:00 PM [facility] Name Value Range Interpretation Code Description Data Raquel rce(s) Supporting Document(s) Fibrin D-dimer FEU [Mass/volume] in Platelet poor plasma 0.44 ug /mL 0.27 - 0.50 [facility] ID Date Data Source [id number] 05/07/2019 07:27:00 PM [facility] Name Value Range Interpretation Code Description Data Raquel rce(s) Supporting Document(s) CBC W/AUTOMATED DIFF [facility] COMPLETE BLOOD COUNT Leukocytes [#/volume] in Blood by Automated count 10.5 10^3/uL 4.2 - 11.0 [facility] Erythrocytes [#/volume] in Blood by Automated count 4.57 10^6/uL 4. 50 - 6.30 [facility] Hemoglobin [Mass/volume] in Blood 14.3 g/dL 14.0 - 16.0 [facility] Hematocrit [Volume Fraction] of Blood by Automated count 40.8 % 4 1.0 - 51.0 L [facility] Erythrocyte mean corpuscular volume [Entitic volume] by Auto mated count 89.3 fL 80.0 - 94.0 [facility] Erythrocyte mean corpuscular hemoglobin [Entitic mass] by Automated count 31.3 pg 27.0 - 34.0 [facility] Erythrocyte mean corpuscular hemoglobin concentration [Mass/volume] by Automated count 35.0 g/dL 31.0 - 36.0 [facility] Erythrocyte distribution width [Ratio] by Automated count 13.0 % 11.5 - 14.8 [facility] Platelets [#/volume] in Blood by Automated count 207 10^3/uL 150 - 45 0 [facility] Platelet mean volume [Entitic volume] in Blood by Automated count 9.3 fL 7.4 - 10.4 [facility] [facility] Neutrophils/100 leukocytes in Blood by Automated count 58.4 % 37. 0 - 80.0 [facility] Lymphocytes/100 leukocytes in Blood by Manual count 29.9 % 25.0 - 40.0 [facility] Monocytes/100 leukocytes in Blood by Automated count 7.4 % 3.0 - 8.0 [facility] Eosinophils/100 leukocytes in Blood by Automated count 3.4 % 0.0 - 7.0 [facility] Basophils/100 leukocytes in Blood by Automated count 0.6 % 0.0 - 2.0 [facility] %IG 0.3 % 0.0 - 0.0 [facility] %NRBC 0.0 % 0.0 - 0.0 [facility] al Neutrophils [#/volume] in Blood by Automated count 6.12 10^3/uL 2.00 - 6.90 [facility] Lymphocytes [#/volume] in Blood by Automated count 3.13 10^3/uL 0.60 - 3.40 [facility] Monocytes [#/volume] in Blood by Automated count 0.78 10^3/uL 0.00 - 0.90 [facility] Eosinophils [#/volume] in Blood by Automated count 0.36 10^3/uL 0.00 - 0.70 [facility] Basophils [#/volume] in Blood by Automated count 0.06 10^3/uL 0.00 - 0.20 [facility] #IG 0.03 10^3/uL 0.00 - 0.10 [facility] ospital #NRBC 0.00 10^3/uL 0.00 - 0.00 [facility] MANUAL DIFF NOT INDICATED [facility] RBC MORPH NOT INDICATED [facility] Procedure Social History Code Duration Value Status Description Data Source(s ) 11/13/2019 11:12:35 AM EDT Current every day smoker co mpleted Current every day smoker [facility] Smoking 11/13/2019 11:12:00 AM EDT Current every day smoker co mpleted Current every day smoker [facility] Vital Signs ID Date Data Source UNK Name Value Range Interpretation Code Description Data Source(s) Gobles body weight 154 [lb_av] 154 [lb_av] [facility] ([facility], ) Body height 68 [in_i] 68 [in_i] [facility] ([facility]) 5'8" Oxygen saturation in Arterial blood by Pulse oximetry 99 % 99 % [facility] ([facility]) Room Air Heart rate 93 /min 93 /min [facility] ([facility]) Diastolic blood pressure 70 mm[Hg] 70 mm[Hg] [facility] ([facility]) Systolic blood pressure 110 mm[Hg] 110 mm[Hg] [facility] ([facility]) Gobles body weight 154 [lb_av] 154 [lb_av] [facility] ([facility]) Body height 68 [in_i] 68 [in_i] [facility] ([facility]) 5'8" Body temperature 97.8 [degF] 97.8 [degF] [facility] ([facility]) Oxygen saturation in Arterial blood by Pulse oximetry 98 % 98 % [facility] ([facility]) Room Air Heart rate 97 /min 97 /min [facility] ([facility]) Diastolic blood pressure 80 mm[Hg] 80 mm[Hg] [facility] ([facility]) Systolic blood pressure 130 mm[Hg] 130 mm[Hg] M [facility] ([facility]) ID Date Data Source [id number] 02/11/2020 01:20:07 PM EDT [facility] Name Value Range Interpretation Code Description Data Source(s) WEIGHT RECORDED 157.00 pounds 157.00 pounds [facility] Height 68 Inches 068 Inches [facility] ID Date Data Source [id number] 02/09/2020 12:37:07 PM EDT [facility] Name Value Range Interpretation Code Description Data Source(s) WEIGHT RECORDED 148.80 pounds 148.80 pounds [facility] Height 68 Inches 068 Inches [facility]
--- OUTSIDE RECORDS SUMMARY | 2020-06-08 22:59 | CCD ---
Author Author [facility] Organization [facility] Address Unknown Phone Unavailable Support Name Relationship Address Phone [place] [address] SKYLER ZAMBRANO Next Of Kin [address] [place] [address] LULA GREEN Next Of Kin [address] [facility] [address] [place] [address] RE Next Of Kin Unknown Unavailable [place] [address] JESSE SANDOVAL Next Of Kin [address] [facility] [address] [facility] [address] [place] [address] Seble Estrella Next Of Kin [address] [place] [address] Debi Faith Next Of Kin [address] [facility] [address] [place] [address] Radha FAITH Next Of Kin [address] [facility] [address] [facility] [address] [place] [address] Gonzalez Rob MD Next Of Kin [address] [place] [address] VERONIKA CALHOUN Next Of Kin [address] [place] [address] UE Next Of Kin Unknown Unavailable MESSI FLOOD Next Of Kin [address] [place] [address] DISABLED Next Of Kin Unknown Unavailable KALA (COUSIN) [place] [address] NO PHONE SOLA FAITH Next Of Kin [address] [place] [address] TJ SAAVEDRA Next [place] [address] NOAM FAITHTIS Next Of Kin [address] [facility] [phone] SABINA ORDAZ, [place] [id number] MARÍA KNOXMOND Next Of Kin [address] [place] [address] SKYLER DAVIS Next Of Kin [address] [place] [address] JESSE SANDOVAL [place], [place] [phone] Care Team Providers Care Fur Glosser Name Role Phone WOLFENDEN, T REBEKA PA [...] Unavailable Unavailable Tarik Rob MD Unavailable Unavailable RobTarik MD Unavailable Unavailable RobTarik MD Unavailable Unavailable RobTarik MD Unavailable Unavailable Tarik Rob MD Unavailable [...] DENVER Unavailable Unavailable TURRIN, DENVER Unavailable Unavailable MitchellJob Eduin PA-C Unavailable Unavailable MitchellJob PA-C Unavailable Unavailable MitchellJob PA-C Unavailable Unavailable MitchellJob PA-C Unavailable Unavailable MitchellJob PA-C Unavailable Unavailable MitchellJob PA-C Unavailable Unavailable MitchellJob PA-C Unavailable Unavailable MitchellJob PA-C Unavailable Unavailable MitchellJob PA-C Unavailable Unavailable MitchellJob PA-C Unavailable Unavailable Mitchell, J Eduin PA-C Unavailable Unavailable Mina Deng Unavailable Unavailable Juan Manuel FOURNIER Unavailable Unavailable Eduin Klein MD Unavailable Unavailable [...] SANDRA MD Unavailable Unavailable Brian, B Jacob LEARNING AND DEVELOPMENT MANAGER Unavailable Unavailable Brian, B Jacob LEARNING AND DEVELOPMENT MANAGER Unavailable Unavailable Brian, B Jacob LEARNING AND DEVELOPMENT MANAGER Unavailable Unavailable Brian, B Jacob LEARNING AND DEVELOPMENT MANAGER Unavailable Unavailable Brian, B Jacob LEARNING AND DEVELOPMENT MANAGER Unavailable Unavailable Brian, B Jacob LEARNING AND DEVELOPMENT MANAGER Unavailable Unavailable Brian, B Jacob LEARNING AND DEVELOPMENT MANAGER Unavailable Unavailable Brian, B Jacob LEARNING AND DEVELOPMENT MANAGER Unavailable Unavailable Brian, B Jacob LEARNING AND DEVELOPMENT MANAGER Unavailable Unavailable Re-disclosure Warning The records [...] is protected by Article 27-F of the [facility] Public Health law. If you continue you may have access to information: Regarding HIV / AIDS; Provided by facilities licensed or operated by the [facility] Office of Mental Health; or Provided by the [facility] Office for People With Developmental Disabilities. If such information is present, then the following [facility] mandated warning applies: This information has [...] law may result in a fine or custodial sentence or both. A general authorization for the release of medical or other information is NOT sufficient authorization for further disc losure. Allergies and Adverse Reactions Type Description Substance Reaction Status Data Source(s ) [facility] LITHIUM LITHIUM [facility] CLASS PCN (penicillin) PCN (penicillin) Ca [facility] Drug allergy penicillin G Penicillin G [facility] Drug allergy diphenhydramine diphenhydramine [facility] Drug allergy chlorpromazine chlorpromazine Anaphylaxis SV [facility] Drug allergy paroxetine paroxetine [facility] Drug allergy ibuprofen Ibuprofen [facility] Drug allergy acetaminophen Acetaminophen [facility] Drug allergy lithium lithium [facility] Food allergy FISH FISH [facility] Family History Family Member Name Family Member Gender Family Member Status Date o f Status Description Data Source(s) Unknown Unknown Problem [facility] ([facility], ) Encounters Encounter Providers Location Date Indications Data Source(s ) Outpatient Attender: Lei Flowers/Shruthi/Elier avial 04/06/2020 09:45:00 AM EST [facility] Out[facility] Attender: Jacob GAONA ttender: CAL FOURNIERConsultant: RUFUS OTT MDConsultant: Guevara Ott MD 02/05/2020 02:36:00 PM EDT - 02/06/2020 12:23:00 PM EDT [facility] Patient discharged. Outpatient Attender: REBEKA BOUCHER PAAttender: SANDRA SALGUERO MDConsultant: RUFUS OTT MDConsultant: Guevara Ott MD 02/02/2020 07 :48:00 PM EDT - 02/03/2020 01:55:00 PM EDT [facility] Patient discharged. Emergency Attender: DENVER Berrysultant: Guevara Montanez 01/06/2020 07:17:00 PM EDT - 01/06/2020 09:07:00 PM EDT [facility] Patient admitted. Outpatient 11/10/2019 10:34:00 PM EDT thoracic surgery consult [facility] thoracic surgery consult Inpatient Attender: Jaylon Baird MD Admitter: Jaylon Baird MDConsultant: Hao Vallejo PAConsultant: Mina VERDE 0 11/10/2019 06:18:00 PM EDT - 11/13/2019 11:22:00 AM EDT B RIB FX, SYNCOPE [facility] B RIB FX, SYNCOPE Patient discharged. Emergency Attender: Eduin VERDE-CConsultant: Guevara horne MD 11/10/2019 10:48:00 AM EDT - 11/10/2019 05:03:00 PM EDT [facility] Patient discharged. Outpatient Attender: Gonzalez Rob MD 08/31/2019 01:55:01 PM EDT [facility] Outpatient 08/17/2019 02:57:00 PM EDT [facility] Outpatient Attender: Gonzalez Rob MD 08/07/2019 03:58:00 PM EDT [facility] Outpatient Attender: Gonzalez oRb MD 08/07/2019 10:05:00 AM EDT [facility] Outpatient 08/03/2019 02:34:00 PM EDT [facility] Outpatient 08/03/2019 02:33:00 PM EDT [facility] Outpatient 06/22/2019 01:59:00 PM EDT [facility] Outpatient 06/15/2019 03:17:00 PM EST [facility] Outpatient 05/28/2019 12:17:00 PM EST [facility] Emergency Attender: DENVER Leonardant: Guevara Montanez 05/14/2019 09:46:00 AM EST - 05/14/2019 01:19:00 PM [facility] Patient discharged. Outpatient 05/14/2019 06:06:00 AM EST [facility] Outpatient 05/07/2019 07:15:00 PM [facility] Emergency Attender: DENVER Berrysultant: Guevara Montanez 05/07/2019 06:37:00 PM EST - 05/07/2019 08:31:00 PM [facility] Patient discharged. Functional Status Medications Medication Brand Name Start Date Product Form Dose Route Admi nistrative Instructions Pharmacy Instructions Status Indications Reaction Description Data Source(s) Oxycodone Hydrochloride 5 MG Oral Tablet Oxycodone 11/13/2019 09 :35:20 AM EDT [address] [facility] POLYETHYLENE GLYCOL 3350 142 MG/ML Oral Solution Polye thylene Glycol 3350 Polyethylene Glycol 3350 11/13/2019 09:32:00 AM EDT 17 GM active [facility] Digoxin 0.125 MG Oral Tablet Digoxin 11/11/2019 08:15:05 AM EDT [address] [facility] Hydroxyzine Hydrochloride 25 MG Oral Tablet Hydroxyzine Hcl Hydroxyzine Hcl 11/11/2019 08:15:05 AM EDT 25 MG active [facility] Acetaminophen 300 MG / Codeine Phosphate 30 MG Oral Tablet Acetaminophen-Codeine Acetaminophen-Codeine 11/10/2019 09:14:51 PM EDT 1 TAB completed [facility] Trazodone Hydrochloride 100 MG Oral Tablet Trazodone 11/09 06:45:57 PM EDT 100 MG active [facility] topiramate 50 MG Oral Tablet Topiramate Topiramate 11/10/2019 06: 45:57 PM EDT [address] [facility] Acetaminophen 300 MG / Codeine Phosphate 30 MG Oral Tablet Acetaminophen-Codeine Acetaminophen-Codeine 11/10/2019 06:45:57 PM EDT 1 TAB active [facility] Albuterol Sulfate (Proair Hfa) 90 mcg/actuation Hfa Aerosol Inhaler 11/10/2019 06:45:57 PM EDT 2 PUFFS completed [facility] Albuterol Sulfate (Ventolin Hfa) 90 mcg/actuation HFA aeroso l inhaler 11/10/2019 06:45:57 PM EDT 2 PUFFS active [facility] Rosuvastatin calcium 5 MG Oral Tablet Rosuvastatin 11/10/2019 06:28 :55 PM EDT [address] [facility] Esomeprazole 40 MG Delayed Release Oral Capsule Esomeprazole Magnesium (Nexium) 40 mg Capsule,Delayed Release(Dr/Ec) Esomeprazole Magnesium (Nexium) 40 mg Capsule,Delayed Release(Dr/Ec) 11/10/2019 06:28:55 PM EDT 40 MG active [facility] Ramipril 1.25 MG Oral Capsule Ramipril 11/10/2019 06:28:55 PM EDT 1.25 MG active [facility] gabapentin 300 MG Oral Capsule Gabapentin Gabapentin 2019 06:28:55 PM EDT 300 MG active [facility] Loratadine 10 MG Oral Tablet [Claritin] Loratadine (Cl aritin) 10 mg Tablet Loratadine (Claritin) 10 mg Tablet 11/10/2019 06:28:55 PM EDT [address] [facility] Fluoxetine 10 MG Oral Capsule Fluoxetine 11/10/2019 06:28:55 PM EDT 10 MG active [facility] Cyclobenzaprine hydrochloride 10 MG Oral Tablet Cyclobenzapr ine 11/10/2019 06:28:55 PM EDT 10 MG active [facility] Fluticasone propionate 0.25 MG/ACTUAT / salmeterol 0.05 MG/ACTUAT Dry Powder Inhaler Fluticasone Propion-Salmeterol (Advair Diskus) 250-50 mcg/dose blister with device Fluticasone Propion-Salmeterol (Advair D iskus) 250-50 mcg/dose blister with device 11/10/2019 06:28:55 PM EDT 1 INH act savannah [facility] apixaban 5 MG Oral Tablet Apixaban (Eliquis) 5 mg tabl et Apixaban (Eliquis) 5 mg tablet 11/10/2019 06:28:55 PM EDT 5 MG active [facility] Insulin Glargine Insulin Glargine (Basag lar Kwikpen U-100 Insulin) 100 unit/mL (3 mL) insulin pen Insulin Glargine (Basaglar Kwikpen U-100 Insulin) 100 unit/mL (3 mL) insulin pen 11/10/2019 06:28:55 PM EDT 20 UNIT a ctive [facility] Aspirin 81 MG Delayed Release Oral Tablet Aspirin 11/10/2019 0 6:28:55 PM EDT [address] [facility] 24 HR Diltiazem Hydrochloride 240 MG Ext ended Release Oral Capsule Diltiazem Hcl (Dilt-Xr) 240 mg capsule,ext.rel 24h degradable Diltiazem Hcl (Dilt-Xr) 240 mg capsule,ext.rel 24h degradable 11/10/2019 06:28:55 PM EDT 240 MG active [facility] Levetiracetam 500 MG Oral Tablet Levetiracetam 11/10/2019 06:28:55 PM EDT [address] [facility] glimepiride 2 MG Oral Tablet Glimepiride Glimepiride 020 06:28:55 PM EDT 4 MG active [facility] Levofloxacin 500 MG Oral Tablet Levofloxacin 09/16/2019 12:00:00 AM E DT ORAL active [facility] ([facility], ) Insurance Providers Payer name Policy type / Coverage type Policy ID Covered alliance party ID Covered alliance party's relationship to anand Policy Anand Plan Information EMEDNY [id number] SP [id number] MEDICARE [id number] SP [id number] MEDICARE C [id number] S [id number] MEDICAID M [id number] S [id number] MEDICARE PART A -O/P [id number] 18 [id number] MEDICAID -O/P EMERGENCY ROOM [id number] MEDICAID -PHYSICIAN [id number] OTHER NO FAULT [id number] SP [id number] Medicaid S [id number] S [id number] Medicare P [id number] MEDICAID [id number] SP [id number] MEDICAID [id number] SP [id number] MEDICARE PART A -O/P [id number] 18 [id number] MEDICARE [id number] SP [id number] MEDICAID [id number] SP [id number] Medicaid S [id number] S [id number] Medicaid [place] Medig[place] Part B [id number] Self [id number] Medicare [place] Primary [id number] Self [id number] MEDICARE C [id number] S [id number] MEDICARE [id number] SP [id number] MEDICAID [id number] SP [id number] S [facility], [facility] C [id number] S [id number] Medicaid S [id number] S [id number] NORIDIAN JE PART B C [id number] S [id number] MEDICARE PART B C [id number] S [id number] MEDICAID [id number] SP [id number] MEDICARE [id number] SP [id number] OTHER NO FAULT [id number] SP [id number] SELF PAY O UNAVAILABLE S UNAVAILA BLE MEDICAID UNAVAILABLE UNAVAILA BLE MCRB [id number] S [id number] MEDICARE [id number] S [id number] MEDICAID [id number] MCRB [id number] S [id number] MEDICAID [id number] S [id number] MCRB [id number] S [id number] MEDICAID [id number] MCRB [id number] S [id number] MCRB [id number] Problems, Conditions, and Diagnoses Code Display Name Description Problem Type Effective Dates Data Source(s) Z9119 Patient's noncompliance with other medic al treatment and regimen Patient's noncompliance with other medical treatment and regimen Diagnosis 02/05/2020 02:36:00 PM EDT [facility] I4891 Unspecified atrial fibrillation Unspecified atrial fib rillation Diagnosis 02/05/2020 02:36:00 PM EDT [facility] E878 Other disorders of electrolyte and fluid balance, not elsewhere classified Other disorders of electrolyte and fluid balance, not elsewhere classified Diagnosis 02/05/2020 02:36:00 PM EDT [facility] G20 Parkinson's disease Parkinson's disease Diagnosis 1 02:36:00 PM EDT [facility] R569 Unspecified convulsions Unspecified convulsions Diagno sis 02/05/2020 02:36:00 PM EDT [facility] E860 Dehydration Dehydration Diagnosis 02/05/2020 02:36:00 PM EDT [facility] Z794 skilled nursing (current) use of insulin skilled nursing (cu rrent) use of insulin Diagnosis 02/05/2020 02:36:00 PM EDT [facility] E119 Type 2 diabetes mellitus without complic ations Type 2 diabetes mellitus without complications Diagnosis 02/05/2020 02:36:00 PM EDT [facility] J449 Chronic obstructive pulmonary disease, u nspecified Chronic obstructive pulmonary disease, unspecified Diagnosis 02/05/2020 02:36:[address] [facility] N75287 Nicotine dependence, cigarettes, uncompl icated Nicotine dependence, cigarettes, uncomplicated Diagnosis 02/05/2020 02:36:[address] [facility] F1220 Cannabis dependence, uncomplicated Cannabis depe ndence, uncomplicated Diagnosis [facility] Other chest pain Other chest pain Diagnosis 02/05/2020 02 :36:00 PM EDT [facility] F0390 Unspecified dementia without behavioral disturbance Unspecified dementia without behavioral disturbance Diagnosis 02/02/2020 07:48:[address] 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 Diagnosis 02/02/2020 07:48:00 PM EDT [facility] U46560 Unspecified place in unspeci fied non-institutional (private) residence as the place of occurrence of the external cause Unspecified place in unspecified non-institutional (private) residence as the place of occurrence of the external cause Diagnosis 01/06/2020 07:17:00 PM [facility] Z281HYB Fall on same level from slip ping, tripping and stumbling without subsequent striking against object, initial encounter Fall on same level from slipping, tripping and stumbling without subsequent striking against object, initial encounter Diagnosis 01/06/2020 07:17:00 PM [facility] Z7901 intermission coordinator (current) use of anticoagulant s intermission coordinator (current) use of anticoagulants Diagnosis 01/06/2020 07:17:00 PM [facility] Z7982 skilled nursing (current) use of aspirin skilled nursing (cu rrent) use of aspirin Diagnosis 01/06/2020 07:17:00 PM [facility] Z8673 Personal history of transien t ischemic attack (TIA), and cerebral infarction without residual deficits Personal history of transient ischemic attack (TIA), and cerebral infarction without residual deficits Diagnosis 01/06/2020 07:17:00 PM EDT [facility] I119 Hypertensive heart disease without heart failure Hypertensive heart disease without heart failure Diagnosis 01/06/2020 07:17:00 PM EDT [facility] E7800 Pure hypercholesterolemia, unspecified P ure hypercholesterolemia, unspecified Diagnosis 01/06/2020 07:17:00 PM [facility] [id number] Fracture of one rib, right side, initial encounter for closed fracture Fracture of one rib, right side, initial encounter for closed fracture Diagnosis 01/06/2020 07:17:00 PM [facility] [id number] Unspecified injury of thorax, initial en counter Unspecified injury of thorax, initial encounter Diagnosis 01/06/2020 07:17:[address] [facility] thoracic surgery consult thoracic surgery consult Diag nosis 11/10/2019 10:34:[address] [facility] [id number] Unspecified fall, initial encounter Unspecified fall, initial encounter Diagnosis 11/10/2019 10:48:00 AM EDT [facility] [id number] Multiple fractures of ribs, left side, initial encounter for closed fracture Multiple fractures of ribs, left side, i nitial encounter for closed fracture Diagnosis 11/10/2019 10:48:00 AM EDT [facility] [id number] Multiple fractures of ribs, right side, initial encounter for closed fracture Multiple fractures of ribs, right side, initial encounter for closed fracture Diagnosis 11/10/2019 10:48:00 AM EDT [facility] R55 Syncope and collapse Syncope and collapse Diagnosis 11/10/2019 10:48:00 AM EDT [facility] O34384 Personal history of nicotine dependence Personal history of nicotine dependence Diagnosis 05/14/2019 09:46:00 AM [facility] I10 Essential (primary) hypertension Essential (primary) h ypertension Diagnosis 05/14/2019 09:46:00 AM [facility] I252 Old myocardial infarction Old myocardial infarction Di agnosis 05/14/2019 09:46:00 AM [facility] E1165 Type 2 diabetes mellitus with hyperglyce henrik Type 2 diabetes mellitus with hyperglycemia Diagnosis 05/14/2019 09:46:00 AM [facility] R531 Weakness Weakness Diagnosis 05/14/2019 09:46:00 AM [facility] J440 Chronic obstructive pulmonar y disease with (acute) lower respiratory infection Chronic obstructive pulmonary disease wi th (acute) lower respiratory infection Diagnosis 05/07/2019 06:37:00 PM [facility] R0600 Dyspnea, unspecified Dyspnea, unspecified Diagnosis 05/07/2019 06:37:00 PM [facility] Surgeries/Procedures Procedure Description Date Indications Data Source(s) MRI Brain without contrast 11/11/2019 02:34:00 PM EDT [facility] Echocardiography (procedure) 11/11/2019 10:35:00 AM ED T [facility] Plain chest X-ray (procedure) 11/11/2019 10:30:00 AM E [facility] Ultrasound scan of carotid (procedure) 11/11/2019 10:0 5:00 AM EDT [facility] Plain chest X-ray (procedure) 11/10/2019 10:31:00 PM E [facility] Blood culture for bacteria, including anaerobic screen (proc edure) 05/07/2019 12:00:00 AM EST [facility] Results ID Date Data Source [id number] 02/09/2020 07:12:00 [place] [address] RESPIRATORY CARE REPORT ==== ---------NAME------- NUMBER SEX AGE ADMIT DISC. XRAY# [facility] [id number] M 65 02/05/20 02/06/20 [id number] MB4 O/P DATE OF : 1955 M/R# [id number] #: [id number] CCU4 LOCATION: EMERGENCY DEPT EKG 95127 COMPL ETE:02/05/20 16:12 [facility] [address] PHYSICIAN: BRIAN Zambrano Name Value Range Interpretation Code Description Data Raquel rce(s) Supporting Document(s) ID Date Data Source [id number] 02/08/2020 05:34:00 [place] [address] PHONE: [phone] FAX: [phone] Name .................. : DIMA Garcia Acct Number.................. : [id number] ROOM. ................. : CCU4 MR Number ................... : [id number] Stay type ............. : O/P Discharge Date......... ... : Admit Date ......... : 02/05/20 Admit Phys .................... : BRIAN MAT Date of ....... : 1955 Family Phys ................... : TRU WATERMAN Phone .................. : [phone] Age ................................ : 65 Film# .................. .:[id number] Sex ................................. : M Unsigned transcriptions are preliminary reports and do not represent a medical or legal document CT HEAD W/O CONTRAST 56127 COMPLETE:02/05/20 20:51 RLB 37646 (REASON FOR PROCEDURE :ALTERED MENTAL STATUS CT [...] [address] 2 [place] [address] PHONE: [phone] FAX: [phone] Name .................. : DIMA Garcia Acct Number.................. : [id number] ROOM. ................. : CCU4 MR Number ................... : [id number] Stay type ............. : O/P Discharge Date......... ... : Admit Date ......... : 02/05/20 Admit Phys .................... : BRIAN RUDOLPH Date of ....... : 1955 Family Phys ................... : TRU WATERMAN Phone .................. : [phone] Age ................................ : 65 Film# .................. .:[id number] Sex ................................. : M Unsigned transcriptions are preliminary reports and do not represent a medical or legal document CT HEAD W/O CONTRAST 77554 COMPLETE:02/05/20 20:51 RLB 48221 (REASON FOR PROCEDURE :ALTERED MENTAL STATUS DISCHARGED Page 2 of 2 Name Value Range Interpretation Code Description Data Raquel rce(s) Supporting Document(s) ID Date Data Source [id number] 02/08/2020 04:23:00 PM EDT [facility] [address] [place] [address] PHONE: [phone] FAX: [phone] Name .................. : DIMA Garcia Acct Number.................. : [id number] ROOM. ................. : CCU4 MR Number ................... : [id number] Stay type ............. : O/P Discharge Date......... ... : Admit Date ......... : 02/05/20 Admit Phys .................... : BRIAN MAT Date of ....... : 1955 Family Phys ................... : TRU WATERMAN Phone .................. : [phone] Age ................................ : 65 Film# .................. .:[id number] Sex ................................. : M Unsigned transcriptions are preliminary reports and do not represent a medical or legal document CHEST PORTABLE 02028 COMPLETE:02/05/20 15:41 CARLOS 92713 Oneyda son(s): COPD PORTABLE CHEST X-RAY: COMPARISON: 02/02/20 [...] rce(s) Supporting Document(s) ID Date Data Source [id number] 02/02/2020 07:48:00 PM EDT [facility] 1 OrderSheet [facility] Emergency Department [address] [place] [address] Phone #: ext- [phone] 02/02/2020 19:46 Patient: DONNY FAITH Sex: M : 1955 Age: 65yWEIGHT:66.7 kg (M) HEIGHT:68 inches (S) BMI:22.4ALLERGIES: Benadryl, Copan, Motrin, Paxil, Penicillins, ThorazineCHIEF COMPLAINT: chest painDIAGNOSIS: [...] 21:53 Srinivas Nazario) Sandra Salguero MD; Stephanie RPadmaNPadmaDIAGNOSTIC STUDY ORDERSOrder Description Priority Entered Acknowledged InitialedChest Portable 1 STAT 20:15 02/02/2020 20:21 [place] Sandra Salguero MD; passenger booking clerk, Rk ER(Oxygen?(No)) Tech1 Reason for Study: Chest PainMEDICATION/IV/DRIP/FLUID ORDERSOrder Description Priority Entered Acknowledged InitialedMorphine IVP 4 mg 21:12 02/02/2020 21:19 Aravind,(NOW x1, HIGH Sandra Salguero MD; Stephanie R.N.ALERTMEDICATION)IV NS : Bolus 250 STAT 21:25 02/02/2020 21:47 Aravind,mL, then 250 mL/hr aSndra Salguero MD; Stephanie R.N.(NOW x1) 2 OrderSheet [facility] [address] [place] [address] Phone #: ext- [phone] 02/02/2020 19:46 Patient: DONNY FAITH Sex: M : 1955 Age: 65yInsulin Reg IVP 10 21:25 02/02/2020 21:44 Aravind,units (NOW x1, Sandra Salguero MD; Stephanie R.N.HIGH ALERTMEDICATION)GENERAL ORDERSOrder Description Priority Entered Acknowledged InitialedEKG 20:15 02/02/2020 20:18 Noemy Nazario Norma MD; Stephanie R.N.Accucheck 21:58 02/02/2020 22:06 Noemy Nazario Norma MD; Stephanie R.N.[Electronically signed by Ezequiel Flores RN (23:11 02/02/2020)][Electronically signed by Sandra Salguero MD (19:24 02/06/2020)][Electronically locked by Ezequiel Flores RN (23:11 02/02/2020)] Name Value Range Interpretation Code Description Data Raquel rce(s) Supporting Document(s) ID Date Data Source [id number] 02/02/2020 07:48:00 PM EDT [facility] 1 Medication Reconciliation Report [facility] [address] [place] [address] Phone #: ext- [phone] 02/02/2020 19:46 Patient: DONNY FAITH Sex: M : 1955 Age: 65yWeight: 66.7 kgHeight/Length: 68 in.BMI: 22.4ALLERGIES: Benadryl, Copan, Motrin, Paxil, Penicillins, ThorazineThe patient's Home Medications are listed below:CONTINUE TAKING THE FOLLOWING MEDICATIONS: Advair Diskus Inhalation (500-50 mcg/dose) 1 inhalation, 2x a day Advocate Insulin Pen [place] Aspir-81 Oral (81 mg) 1 tablet, daily Basaglar 20 unita, at bedtime [facility] douds Claritin Oral (5 mg) 1 tablet, daily, [...] 2x a day 2 Medication Reconciliation Report [facility] [address] [place] [address] Phone #: ext- [phone] 02/02/2020 19:46 Patient: DONNY AFITH Sex: M : 1955 Age: 65y NexIUM [...] rce(s) Supporting Document(s) ID Date Data Source [id number] 02/02/2020 07:48:00 PM EDT [facility] 1 Medication Administration Record [facility] [address] [place] [address] Phone #: ext- [phone] 02/02/2020 19:46 Patient: DONNY FAITH Sex: M : 1955 Age: 65yWeight: 66.7 kgHeight/Length: 68 inBMI: 22.4ALLERGIES: Benadryl, Copan, Motrin, Paxil, Penicillins, Thorazine Date/Time Medication Administered Medication OrderedGiven MORPHINE [IVP] Morphine IVP 4 mg (NOW x1, HIGH21:19 02/02/2020 Dose: 4 mg IVP ALERT MEDICATION)Stephanie Nazario R.N. Site: #1 left forearmStart IV NS IV NS : Bolus 250 mL, then 26422:47 02/02/2020 Dose: IV Fluids mL/hr (NOW x1); Stephanie Willis R.N. Rate: 250 mL/hr---- Bolus: 250 mL over 30 minute(s)Continued Upon Disposition Dispensed: 500 mL bag22:48 02/02/2020 Site: #1 left forearmStroly Flores RNGiparker INSULIN REG [IVP] Insulin Reg IVP 10 units (NOW x1,21:44 02/02/2020 Dose: 10 unit IVP HIGH ALERT MEDICATION)Stephanie Nazario R.N. Site: #1 left forearm Name Value Range Interpretation Code Description Data Raquel rce(s) Supporting Document(s) ID Date Data Source [id number] 02/02/2020 07:48:00 PM EDT [facility] 1 General Instructions [facility] [address] [place] [address] Phone #: [phone] vou- [phone] 02/02/2020 19:46 Patient: DONNY FAITH Sex: M : 1955 Age: 65yChest pain characterized as "pressure".INSTRUCTIONSYour Current Medications: Your current home medications have been reviewed.CONTINUE TAKING THE FOLLOWING MEDICATIONS:Advair Diskus Inhalation : Aerosol Powder Breath Activated 500-50 mcg/dose, 1 inhalation 2x a day.Advocate Insulin Pen [place]*.Aspir-81 Oral : Tablet Delayed Release 81 mg, 1 tablet daily.Basaglar* : 20 unita, at bedtime.[facility]* : ion.Claritin Oral : Tablet Chewable [...] instructions verbalized by patient. 2 General Instructions [facility] [address] [place] [address] Phone #: ext- [phone] 02/02/2020 19:46 Patient: DONNY FAITH Sex: M : 1955 Age: 65y(Electronically signed by Sandra Salguero MD 02/06/2020 19:24) Name Value Range Interpretation Code Description Data Raquel rce(s) Supporting Document(s) ID Date Data Source [id number] 02/02/2020 07:48:00 PM EDT [facility] 1 Clinical Report - Nurses [facility] [address] [place] [address] Phone #: ext- [phone] 02/02/2020 19:46 Patient: [...] green sputum. He has had wheezing. Treatment KNOTTER HAND: (duoneb in ambulance). SEPSIS SCREEN: SIRS Screen [...] inhalation, 2x a day. Advocate Insulin Pen [place] . Aspir-81 Oral (Tablet Delayed Release 81 mg) 1 tablet, daily. Basaglar 20 unita, at bedtime. --19:54 02/02/20 Stephanie Nazario R.N. [facility]. Claritin Oral (Tablet Chewable 5 mg) 1 [...] a day. 2 Clinical Report - Nurses [facility] [address] [place] [address] Phone #: ext- [phone] 02/02/2020 19:46 Patient: [...] on day 3. --19:54 02/02/20 Stephanie Nazario R.N.AllergiesBenadryl.Copan.Motrin.Paxil.Penicillins.Thorazine. --19:54 02/02/20 Stephanie Nazario R.N.HistoryPAST MEDICAL HX: [...] 63 years. 3 Clinical Report - Nurses [facility] [address] [place] [address] Phone #: ext- [phone] 02/02/2020 19:46 Patient: [...] --20:01 02/02/20 Stephanie Nazario R.N.NURSING PROGRESS NOTES 20:02/02/2020 Site #1 started prior to arrival by [...] 10 mL normal saline post blood draw. --20:02/02/20 Lloyd Dixon RN 21:02/02/2020 Morphine IVP 4 [...] IV flushed 4 Clinical Report - Nurses [facility] [address] [place] [address] Phone #: ext- [phone] 02/02/2020 19:46 Patient: DONNY FAITH Sex: M : 1955 Age: 65y thoroughly pre- and post-medication administration. IVP given by RN. Information reviewed with patient including reason for taking this medication. Verbalizes understanding. --21:44 02/02/20 Stephanie Nazario, R.Ozzie. 21:47 02/02/2020 Started bag #1 500 mL [...] rce(s) Supporting Document(s) ID Date Data Source [id number] 02/02/2020 07:48:00 PM EDT [facility] 1 Clinical Report - Physicians/Mid Levels [facility] [address] [place] [address] Phone #: ext- [phone] 02/02/2020 19:46 Patient: [...] Appendectomy. 2 Clinical Report - Physicians/Mid Levels [facility] [address] [place] [address] Phone #: ext- [phone] 02/02/2020 19:46 [id number] Sex: M : 1955 Age: 65y Cholecystectomy. Medications: [facility]. Claritin Oral (Tablet Chewable 5 mg) 1 [...] inhalation, 2x a day. Advocate Insulin Pen [place]. Aspir-81 Oral (Tablet Delayed Release 81 mg) 1 tablet, daily. Basaglar 20 unita, at bedtime. Allergies: Benadryl. Copan. Motrin. Paxil. Penicillins. Thorazine.SOCIAL HISTORYNo drug use.ADDITIONAL NOTESThe nursing notes have been reviewed.PHYSICAL EXAMVital Signs: 02/02/2020 22:48 BP: lying 134/72. MAP: 92. HR: 78. RR: 23. O2 saturation: 97% on roomair. Temp: 97.3 F. Pain level now: 09/22. 3 Clinical Report - Physicians/Mid Levels [facility] [address] [place] [address] Phone #: ext- [phone] 02/02/2020 19:46 Patient: DONNY FAITH Sex: M : 1955 Age: 65y1 21:51 BP: 132/63. MAP: 86. HR: 97. RR: 22. O2 saturation: 99%. Pain level now: 6/.02/02/2020 19:48 BP: 143/65. MAP: 91. HR: 106. [...] 6.30) 4 Clinical Report - Physicians/Mid Levels [facility] [address] [place] [address] Phone #: ext- [phone] 02/02/2020 19:46 Patient: [...] BACK MARTY IN ED BY: STEFFEN DATE/TIME /2123 BUN 12 MG/DL (7 - 21) CREATININE [...] Male GFR Interprentation 20-49 yrs >60 mL/min Jazram65-56 yrs >56 mL/min Normal 60-69 yrs >49 mL/min Normal 70-79yrs>42 mL/min Normal 80 and above >35 mL/min Normal Female GFRInterpretation 20-39 yrs >60 mL/min Normal 40-49 yrs >58 mL/minNormal 50-59 yrs >51 mL/min Normal 60-69 yrs >45 mL/min Xzuiew84-05 yrs >39 mL/min Normal 80 and above >32 mL/min Normal 5 Clinical Report - Physicians/Mid Levels [facility] [address] [place] [address] Phone #: ext- [phone] 02/02/2020 19:46 Patient: [...] O2? Oxygen?(No) Room: ED Exam CHEST PORTABLE [facility] [address] [place] [address] PHONE: [phone] FAX: [phone] Name .................. : DIMA Garcia Acct Number.................. : [id number] ROOM. ................. : TR-06 MR Number ................... : [id number] Stay type ............. : E/R Discharge Date......... ... : Admit Date ......... : 02/02/20 Admit Phys .................... : COONEYNORM Date of ....... : 1955 Family Phys ................... : TRU WATERMAN Phone .................. : [phone] Age ................................ : 65 Film# .................. .:[id number] Sex .................. ............... : M Unsigned transcriptions are preliminary reports and do not represent a medical or legal document CHEST PORTABLE [id number] COMPLETE:02/02/20 21:13 RLB [id number] Reason(s): Chest Pain PORTABLE CHEST X-RAY: INDICATION: Chest pain. COMPARISON: 05/14/19 FINDINGS: The cardiac and mediastinal silhouettes appear normal and the lungs are clear. The bones and soft tissues are normal. The upper abdomen is unremarkable. IMPRESSION: No acute disease identifiable. Electronically Reviewed and Signed By 6 Clinical Report - Physicians/Mid Levels [facility] [address] [place] [address] Phone #: ext- [phone] 02/02/2020 19:46 Patient: DONNY FAITH Sex: M [...] inhalation 2x a day. Advocate Insulin Pen [place]*. Aspir-81 Oral : Tablet Delayed Release 81 mg, 1 tablet daily. Basaglar* : 20 unita, at bedtime. [facility] Claritin Oral : Tablet Chewable 5 mg, [...] day. 7 Clinical Report - Physicians/Mid Levels [facility] [address] [place] [address] Phone #: ext- [phone] 02/02/2020 19:46 Patient: [...] rce(s) Supporting Document(s) ID Date Data Source [id number] 02/02/2020 07:48:00 PM EDT [facility] Addenda for DONNY FAITH VisitID: [id number] Date: 22:32Faxed Medication reconciliation request to [facility].(Electronically signed by Amos Dixon - 02/02/2020 22:32) Name Value Range Interpretation Code Description Data Raquel rce(s) Supporting Document(s) ID Date Data Source [id number] 02/06/2020 07:13:00 AM EDT [facility] Name Value Range Interpretation Code Description Data Raquel rce(s) Supporting Document(s) Phosphate [Mass/volume] in Serum or Plasma 3.9 MG/DL 2.5 - 4.5 [facility] ID Date Data Source [id number] 02/06/2020 07:13:00 AM EDT [facility] Name Value Range Interpretation Code Description Data Raquel rce(s) Supporting Document(s) Magnesium [Mass/volume] in Serum or Plasma 1.8 MG/DL 1.7 - 2.2 [facility] ID Date Data Source [id number] 02/06/2020 07:12:00 AM EDT [facility] Name Value Range Interpretation Code Description Data Raquel rce(s) Supporting Document(s) COMPREHENSIVE METABOLIC PANEL [facility] COMPREHENSIVE METABOLIC PANEL Sodium [Moles/volume] in Serum or Plasma 138 mEq/L 134 - 153 [facility] Potassium [Moles/volume] in Serum or Plasma 3.9 mEq/L 3.6 - 5.0 [facility] Chloride [Moles/volume] in Serum or Plasma 105 mEq/L 98 - 107 [facility] Carbon dioxide, total [Moles/volume] in Serum or Plasma 25 MEQ/L 22 - 30 [facility] Glucose [Mass/volume] in Serum or Plasma 240 MG/DL 65 - 110 H [facility] BUN 9 MG[facility]DL 7 - [facility] Creat[facility] [Mass/volume] in Serum or Plasma 0.5 MG/DL 0.7 - 1.5 L [facility] BUN/CREAT 18 8 - 27 [facility] al Protein [Mass/volume] in Serum or Plasma 6.1 G/DL 6.3 - 8.2 L [facility] Albumin [Mass/volume] in Serum or Plasma 3.7 G/DL 3.9 - 5.0 L [facility] Globulin [Mass/volume] in Serum by calculation 2.4 GM/DL 2.4 - 3.2 [facility] A/G RATIO 1.5 0.8 - 2.0 [facility] al Calcium [Mass/volume] in Serum or Plasma 9.1 MG/DL 8.4 - 10.2 [facility] Bilirubin.total [Mass/volume] in Serum or Plasma <0.7 MG/DL 0.2 - 1.3 [facility] Alkaline phosphatase [Enzymatic activity/volume] in Serum or Plasma 61 U/L 38 - 126 [facility] Aspartate aminotransferase [Enzymatic activity/volume] in Serum or Plasma 15 U/L 5 - 40 [facility] Alanine aminotransferase [Enzymatic activity/volume] in Seru m or Plasma 17 U/L 7 - 56 [facility] Anion gap 3 in Serum or Plasma 8.0 mmol/L 8.0 - 16.0 [facility] AGE 65 yrs [facility] al NON-AA GFR >60 mL/min [facility] ital AFR AMER GFR >60 mL/min [facility] Male GFR In terprentation 20-49 [...] >32 mL/min Normal ID Date Data Source [id number] 02/06/2020 07:09:00 AM EDT [facility] Name Value Range Interpretation Code Description Data Raquel rce(s) Supporting Document(s) TROPONIN T <0.01 NG/ML 0.00 - 0.10 [facility] ospital TROPONIN T0.1 ng/ml Recommended as the c linical threshold value forTroponin T. ID Date Data Source [id number] 02/06/2020 07:09:00 AM T [facility] Name Value Range Interpretation Code Description Data Raquel rce(s) Supporting Document(s) Prothrombin time (PT) 13.5 SECONDS 11.0 - 15.5 [facility] INR in Platelet poor plasma by Coagulation assay 1.02 0.93 - 1. 23 [facility] \\BLDo\\INR INTERPRETATION\\BLDx\\ Therapeutic range for Coumadin and related oral anticoagulants. - International Normalized Ratio (INR): 2.0 - 3.0 for Venous Thrombosis, Pulmonary Embolus, Tissue heart valves, Acute RI, Atrial Fibrillation, Valvular heart disease and recurrent Systemic Embolism. -International Normalized Ratio (INR): 2.5 - 3.5 for Mechanical Prosthetic valve. ID Date Data Source [id number] 02/06/2020 06:47:00 AM EDT [facility] Name Value Range Interpretation Code Description Data Raquel rce(s) Supporting Document(s) CBC W/AUTOMATED DIFF [facility] COMPLETE BLOOD COUNT Leukocytes [#/volume] in Blood by Automated count 5.9 10^3/uL 4.2 - 1 1.0 [facility] Erythrocytes [#/volume] in Blood by Automated count 4.09 10^6/uL 4. 50 - 6.30 L [facility] Hemoglobin [Mass/volume] in Blood 12.4 g/dL 14.0 - 16.0 L [facility] Hematocrit [Volume Fraction] of Blood by Automated count 35.8 % 4 1.0 - 51.0 L [facility] Erythrocyte mean corpuscular volume [Entitic volume] by Auto mated count 87.5 fL 80.0 - 94.0 [facility] Erythrocyte mean corpuscular hemoglobin [Entitic mass] by Automated count 30.3 pg 27.0 - 34.0 [facility] Erythrocyte mean corpuscular hemoglobin concentration [Mass/volume] by Automated count 34.6 g/dL 31.0 - 36.0 [facility] Erythrocyte distribution width [Ratio] by Automated count 13.3 % 11.5 - 14.8 [facility] Platelets [#/volume] in Blood by Automated count 237 10^3/uL 150 - 45 0 [facility] Platelet mean volume [Entitic volume] in Blood by Automated count 9.6 fL 7.4 - 10.4 [facility] Neutrophils/100 leukocytes in Blood by Automated count 42.8 % 37. 0 - 80.0 [facility] Lymphocytes/100 leukocytes in Blood by Manual count 43.3 % 25.0 - 40.0 H [facility] Monocytes/100 leukocytes in Blood by Automated count 7.8 % 3.0 - 8.0 [facility] Eosinophils/100 leukocytes in Blood by Automated count 5.1 % 0.0 - 7.0 [facility] Basophils/100 leukocytes in Blood by Automated count 0.7 % 0.0 - 2.0 [facility] %IG 0.3 % 0.0 - 0.0 H [facility] al %NRBC 0.0 % 0.0 - 0.0 [facility] al Neutrophils [#/volume] in Blood by Automated count 2.52 10^3/uL 2.00 - 6.90 [facility] Lymphocytes [#/volume] in Blood by Automated count 2.55 10^3/uL 0.60 - 3.40 [facility] Monocytes [#/volume] in Blood by Automated count 0.46 10^3/uL 0.00 - 0.90 [facility] Eosinophils [#/volume] in Blood by Automated count 0.30 10^3/uL 0.00 - 0.70 [facility] Basophils [#/volume] in Blood by Automated count 0.04 10^3/uL 0.00 - 0.20 [facility] #IG 0.02 10^3/uL 0.00 - 0.10 [facility] #NRBC 0.00 10^3/uL 0.00 - 0.00 [facility] MANUAL DIFF NOT INDICATED [facility] RBC MORPH NOT INDICATED [facility] ID Date Data Source [id number] 02/05/2020 08:55:00 PM EDT [facility] Name Value Range Interpretation Code Description Data Raquel rce(s) Supporting Document(s) TROPONIN T <0.01 NG/ML 0.00 - 0.10 [facility] TROPONIN T0.1 ng/ml Recommended as the c linical threshold value forTroponin T. ID Date Data Source [id number] 02/05/2020 02:36:00 PM EDT [facility] 1 OrderSheet [facility] [address] [place] [address] Phone #: [phone] ext- [phone] 02/05/2020 14:42 Patient: DONNY FAITH Sex: M : 1955 Age: 65yWEIGHT:65.7 kg (S) HEIGHT:68 inches (S) BMI:22.0ALLERGIES: Benadryl, Copan, Motrin, Paxil, Penicillins, ThorazineCHIEF COMPLAINT: dyspnea, COPD, [...] 1000 mL/hr 15:15 02/05/2020 15:28 Cal Mei RNInsulin Reg Subcut 16:19 02/05/2020 16:44 Brian Cunningham units (NOW x1, Shantanu, Ja ck ; R.N.HIGH ALERTMEDICATION)GENERAL ORDERSOrder Description Priority Entered Acknowledged Initialed 2 OrderSheet [facility] [address] [place] [address] Phone #: ext- [phone] 02/05/2020 14:42 Patient: DONNY FAITH Sex: M : 1955 Age: 65yEKG 15:10 02/05/2020 15:11 Kenny Cal Mcknight ; Ivon De Souza [id number] - 16:46 02/05/2020 16:51 Gladys Cunningham Jack ; R.N.[Electronically signed by Cal Fournier (18:05 02/05/2020)][Electronically signed by Quoc Sandoval RN (18:48 02/05/2020)][Electronically locked by Quoc Sandoval RN (18:48 02/05/2020)] Name Value Range Interpretation Code Description Data Raquel rce(s) Supporting Document(s) ID Date Data Source [id number] 02/05/2020 02:36:00 PM EDT [facility] 1 Medication Reconciliation Report [facility] [address] [place] [address] Phone #: ext- [phone] 02/05/2020 14:42 Patient: DONNY FAITH Sex: M : 1955 Age: 65yWeight: 65.7 kgHeight/Length: 68 in.BMI: 22.0ALLERGIES: Benadryl, Copan, Motrin, Paxil, Penicillins, ThorazineThe patient's Home Medications are listed below:THE FOLLOWING MEDICATIONS NEED TO BE RECONCILED: Advair Diskus Inhalation (500-50 mcg/dose) 1 inhalation, 2x a day Advocate Insulin Pen [place] Aspir-81 Oral (81 mg) 1 tablet, daily Basaglar 20 unita, at bedtime [facility] Claritin Oral (5 mg) 1 tablet, daily, [...] 2x a day 2 Medication Reconciliation Report [facility] [address] [place] [address] Phone #: ext- [phone] 02/05/2020 14:42 Patient: [...] rce(s) Supporting Document(s) ID Date Data Source [id number] 02/05/2020 02:36:00 PM EDT [facility] 1 Medication Administration Record [facility] [address] [place] [address] Phone #: ext- [phone] 02/05/2020 14:42 Patient: DONNY FAITH Sex: M : 1955 Age: 65yWeight: 65.7 kgHeight/Length: 68 inBMI: 22ALLERGIES: Benadryl, Copan, Motrin, Paxil, Penicillins, Thorazine Date/Time Medication Administered Medication OrderedStart IV NS IV NS : 1000 mL/hr15:28 02/05/2020 Dose: IV FluidsQuoc Sandoval RN Rate: 1000 mL/hr over 1 hour(s)---- Dispensed: 1000 mL bagStop Site: #1 right :30 02/05/2020Quoc Sandoval RNGiven INSULIN REG [SUBCUTANEOUS] Insulin Reg Subcut 10 units (NOW16:44 02/05/2020 Dose: 10 unit Subcutaneous x1, HIGH ALERT MEDICATION)Elida Cunningham R.N. Name Value Range Interpretation Code Description Data Raquel rce(s) Supporting Document(s) ID Date Data Source [id number] 02/05/2020 02:36:00 PM EDT [facility] 1 General Instructions [facility] [address] [place] [address] Phone #: ext- [phone] 02/05/2020 14:42 Patient: DONNY FAITH Sex: M : 1955 Age: 65yChest pain characterized as "discomfort".Moderate hyperglycemia.(Electronically signed by Cal Fournier, 02/05/2020 18:05) Name Value Range Interpretation Code Description Data Raquel rce(s) Supporting Document(s) ID Date Data Source [id number] 02/05/2020 02:36:00 PM EDT [facility] 1 Clinical Report - Nurses [facility] [address] [place] [address] Phone #: ext- [phone] 02/05/2020 14:42 Patient: [...] inhalation, 2x a day. Advocate Insulin Pen [place]. Aspir-81 Oral (Tablet Delayed Release 81 mg) 1 tablet, daily. Basaglar 20 unita, at bedtime. [facility] [place]. Claritin Oral (Tablet Chewable 5 mg) 1 [...] at bedtime. 2 Clinical Report - Nurses [facility] [address] [place] [address] Phone #: ext- [phone] 02/05/2020 14:42 Patient: DONNY FAITH Sex: M : 1955 Age: 65yTylenol with Codeine #3 Oral, 2x a day.Ventolin HFA Inhalation 2 puffs, q8h as needed, sob.Z pack 1 tab day pt on day 3. --14:43 02/05/20 Best Hobbs R.N.AllergiesBenadryl.Copan.Motrin.Paxil.Penicillins. --14:43 02/05/20 Best Hobbs R.N.Thorazine. --14:43 02/05/20 [...] Cal Fournier. 3 Clinical Report - Nurses [facility] [address] [place] [address] Phone #: ext- [phone] 02/05/2020 14:42 Patient: DONNY FAITH Sex: M : 1955 Age: 65yPHYSICAL [id number] 02/05/20. To room via stretcher.GENERAL / NEURO [...] Cunningham R.N. late entry - 14:40 02/05/20. 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 Shown to the ED physician (1650). --15:30 02/05/20 Quoc Sandoval RN 15:58 02/05/20. BP: 141/84. MAP: 103. HR: 89. RR: 25. O2 saturation: 100%. --15:59 02/05/20 [place] [facility] 4 Clinical Report - Nurses [facility] [address] [place] [address] Phone #: ext- [phone] 02/05/2020 14:42 Patient: [...] Sandoval RN. 5 Clinical Report - Nurses [facility] [address] [place] [address] Phone #: ext- [phone] 02/05/2020 14:42 Patient: DONNY FAITH Sex: M : 1955 Age: 65yLocked/Released at 02/05/2020 18:48 by Quoc Sandoval RN Name Value Range Interpretation Code Description Data Raquel rce(s) Supporting Document(s) ID Date Data Source [id number] 02/05/2020 02:36:00 PM EDT [facility] 1 Clinical Report - Physicians/Mid Levels [facility] [address] [place] [address] Phone #: ext- [phone] 02/05/2020 14:42 Patient: [...] was just discharged two days ago from [facility] for similar complaints. He also states someone [...] Cholecystectomy. 2 Clinical Report - Physicians/Mid Levels [facility] [address] [place] [address] Phone #: ext- [phone] 02/05/2020 14:42 Patient: [...] inhalation, 2x a day. Advocate Insulin [facility] [place]. Aspir- 81 Oral (Tablet Delayed Release 81 mg) 1 tablet, daily. Basaglar 20 unita, at bedtime. [facility]. Claritin Oral (Tablet Chewable 5 mg) 1 [...] NexIUM Oral 40 mg, daily. Allergies: Benadryl. Copan. Motrin. Paxil. Penicillins. Thorazine.SOCIAL HISTORYCurrent every day heavy tobacco smoker (cigarette)- 1-2 packs per day.FAMILY HISTORYFather: Coronary Artery Disease.Mother: Diabetes.ADDITIONAL NOTESThe nursing notes have been reviewed. 3 Clinical Report - Physicians/Mid Levels [facility] [address] [place] [address] Phone #: ext- [phone] 02/05/2020 14:42 Patient: [...] Room: ED Urinalysis: (ROSARIO: 02/05/2020 14:48) ( Mscvd 02/05/2020 15:41) Final results Test Result Flag [...] 1.0 4 Clinical Report - Physicians/Mid Levels [facility] [address] [place] [address] Phone #: ext- [phone] 02/05/2020 14:42 Patient: DONNY FAITH Sex: M [...] Normal 5 Clinical Report - Physicians/Mid Levels [facility] [address] [place] [address] Phone #: ext- [phone] 02/05/2020 14:42 Patient: [...] as "discomfort". Moderate hyperglycemia.(Electronically signed by Cal oFurnier, 02/05/2020 18:05) Name Value Range Interpretation Code Description Data Raquel rce(s) Supporting Document(s) ID Date Data Source [id number] 02/09/2020 06:38:00 AM [facility] Name Value Range Interpretation Code Description Data Raquel rce(s) Supporting Document(s) Levetiracetam [Mass/volume] in Serum or Plasma <1.0 ug/mL 10.0-40.0 L [facility] Verified by repeat analysisThis test was developed and its performance characteristicsdetermined by [facility]. It has not been cleared or approvedby the Food and Drug Administration. ID Date Data Source [id number] 02/05/2020 06:56:00 PM [facility] Name Value Range Interpretation Code Description Data Raquel rce(s) Supporting Document(s) Digoxin [Mass/volume] in Serum or Plasma <0.4 NG/ML 0.8 - 2.0 L [facility] ID Date Data Source [id number] 02/05/2020 06:53:00 PM EDT [facility] Name Value Range Interpretation Code Description Data Raquel rce(s) Supporting Document(s) Ammonia [Mass/volume] in Plasma <17.0 UG/DL 27.2 - 102 L [facility] ID Date Data Source [id number] 02/05/2020 06:41:00 PM EDT [facility] Name Value Range Interpretation Code Description Data Raquel rce(s) Supporting Document(s) Hemoglobin A1c/Hemoglobin.total in Blood 12.8 % 4.4 - 6.1 H [facility] {A1]{HB] ID Date Data Source [id number] 02/05/2020 06:30:00 PM EDT [facility] Name Value Range Interpretation Code Description Data Raquel rce(s) Supporting Document(s) pH of Serum or Plasma 7.40 7.32 - 7.43 [facility] pCO2 V 40.1 mm/HG 38.0 - 51.0 [facility] pO2 V 24.3 mm/HG 30.0 - 55.0 L [facility] Bicarbonate [Moles/volume] in Venous blood 24.4 meq/L 22.0 - 29.0 [facility] TCO2 V 25.6 meq/L 22.0 - 29.0 [facility] Base excess in Blood by calculation -0.3 -2.0 - 2.0 [facility] O2 SAT V 42.9 % 40.0 - 85.0 [facility] ID Date Data Source [id number] 02/05/2020 06:30:00 PM EDT [facility] Name Value Range Interpretation Code Description Data Raquel rce(s) Supporting Document(s) Lactate [Moles/volume] in Serum or Plasma 1.7 MMOL/L 0.2 - 2.2 [facility] ID Date Data Source [id number] 02/07/2020 03:30:00 PM EDT [facility] Name Value Range Interpretation Code Description Data Raquel rce(s) Supporting Document(s) Phenytoin [Mass/volume] in Serum or Plasma <0.8 ug/mL 10.0-20.0 L [facility] Verified by repeat analysis Detection Limit = 0.8 <0.8 Indicates None Detected ID Date Data Source [id number] 02/05/2020 06:24:00 PM EDT [facility] Name Value Range Interpretation Code Description Data Raquel rce(s) Supporting Document(s) DRUG SCREEN URINE [facility] URINE DRUG SCREEN Amphetamine [Presence] in Urine by Screen method NEGATIVE NORMAL: N EGATIVE [facility] BARBITURATES NEGATIVE NORMAL: NEGATIVE [facility] BENZO NEGATIVE NORMAL: NEGATIVE [facility] COCAINE NEGATIVE NORMAL: NEGATIVE [facility] Tetrahydrocannabinol [Presence] in Urine NEGATIVE NORMAL: NEGATIVE [facility] OPIATES NEGATIVE NORMAL: NEGATIVE [facility] Phencyclidine [Presence] in Urine by Screen method NEGATIVE NOR MAL: NEGATIVE [facility] \\BLDo\\URINE DRUG SCR EEN INTERPRETATION\\BLDx\\ THE CUTOFFF LEVELS FOR DETECTION ARE FOLLOWS: AMPHETAMINES 1000 ng/ml BARBITUARATES 200 ng/ml BENZODIAZEPINES 100 ng/ml THC 50 ng/ml PHENCYCLIDINE 25 ng/ml OPIATES 300 ng/ml COCAINE 300 ng/ml ALL POSITIVES ARE CONSIDERED PRESUMPTIVE POSITIVE CONFIRMATION WILL BE PERFORMED AT PHYSICIAN REQUEST. ID Date Data Source [id number] 02/05/2020 03:45:00 PM EDT [facility] Name Value Range Interpretation Code Description Data Raquel rce(s) Supporting Document(s) TROPONIN T <0.01 NG/ML 0.00 - 0.10 [facility]ital TROPONIN T0.1 ng/ml Recommended as the c linical threshold value forTroponin T. ID Date Data Source [id number] 02/05/2020 03:45:00 PM EDT [facility] Name Value Range Interpretation Code Description Data Raquel rce(s) Supporting Document(s) BASIC METABOLIC PANEL [facility] BASIC METABOLIC PANEL Sodium [Moles/volume] in Serum or Plasma 130 mEq/L 134 - 153 L [facility] Potassium [Moles/volume] in Serum or Plasma 3.7 mEq/L 3.6 - 5.0 [facility] Chloride [Moles/volume] in Serum or Plasma 95 mEq/L 98 - 107 L [facility] Carbon dioxide, total [Moles/volume] in Serum or Plasma 23 MEQ/L 22 - 30 [facility] Glucose [Mass/volume] in Serum or Plasma 341 MG/DL 65 - 110 H [facility] BUN 11 MG/DL 7 - 21 [facility] al Creatinine [Mass/volume] in Serum or Plasma 0.5 MG/DL 0.7 - 1.5 L [facility] BUN/CREAT 22 8 - 27 [facility] Calcium [Mass/volume] in Serum or Plasma 8.9 MG/DL 8.4 - 10.2 [facility] Anion gap 3 in Serum or Plasma 12.0 mmol/L 8.0 - 16.0 [facility] AGE 65 yrs [facility] al AFR AMER GFR >60 mL/min [facility] NON-AA GFR >60 mL/min [facility] ital Male GFR Inter prentation 20-49 [...] >32 mL/min Normal ID Date Data Source [id number] 02/05/2020 03:34:00 PM EDT [facility] Name Value Range Interpretation Code Description Data Raquel rce(s) Supporting Document(s) CBC W/AUTOMATED DIFF [facility] COMPLETE BLOOD COUNT Leukocytes [#/volume] in Blood by Automated count 7.1 10^3/uL 4.2 - 1 1.0 [facility] Erythrocytes [#/volume] in Blood by Automated count 3.98 10^6/uL 4. 50 - 6.30 L [facility] Hemoglobin [Mass/volume] in Blood 12.4 g/dL 14.0 - 16.0 L [facility] Hematocrit [Volume Fraction] of Blood by Automated count 35.1 % 4 1.0 - 51.0 L [facility] Erythrocyte mean corpuscular volume [Entitic volume] by Auto mated count 88.2 fL 80.0 - 94.0 [facility] Erythrocyte mean corpuscular hemoglobin [Entitic mass] by Automated count 31.2 pg 27.0 - 34.0 [facility] Erythrocyte mean corpuscular hemoglobin concentration [Mass/volume] by Automated count 35.3 g/dL 31.0 - 36.0 [facility] Erythrocyte distribution width [Ratio] by Automated count 13.5 % 11.5 - 14.8 [facility] Platelets [#/volume] in Blood by Automated count 238 10^3/uL 150 - 45 0 [facility] Platelet mean volume [Entitic volume] in Blood by Automated count 10.0 fL 7.4 - 10.4 [facility] Neutrophils/100 leukocytes in Blood by Automated count 56.5 % 37. 0 - 80.0 [facility] Lymphocytes/100 leukocytes in Blood by Manual count 34.5 % 25.0 - 40.0 [facility] Monocytes/100 leukocytes in Blood by Automated count 5.4 % 3.0 - 8.0 [facility] Eosinophils/100 leukocytes in Blood by Automated count 2.7 % 0.0 - 7.0 [facility] Basophils/100 leukocytes in Blood by Automated count 0.6 % 0.0 - 2.0 [facility] %IG 0.3 % 0.0 - 0.0 H [facility] al %NRBC 0.0 % 0.0 - 0.0 [facility] al Neutrophils [#/volume] in Blood by Automated count 3.99 10^3/uL 2.00 - 6.90 [facility] Lymphocytes [#/volume] in Blood by Automated count 2.43 10^3/uL 0.60 - 3.40 [facility] Monocytes [#/volume] in Blood by Automated count 0.38 10^3/uL 0.00 - 0.90 [facility] Eosinophils [#/volume] in Blood by Automated count 0.19 10^3/uL 0.00 - 0.70 [facility] Basophils [#/volume] in Blood by Automated count 0.04 10^3/uL 0.00 - 0.20 [facility] #IG 0.02 10^3/uL 0.00 - 0.10 [facility] #NRBC 0.00 10^3/uL 0.00 - 0.00 [facility] MANUAL DIFF NOT INDICATED [facility] RBC MORPH NOT INDICATED [facility] ID Date Data Source [id number] 02/05/2020 03:33:00 PM EDT [facility] Name Value Range Interpretation Code Description Data Raquel rce(s) Supporting Document(s) URINALYSIS [facility] homero [facility] yellow NORMAL: Yellow [facility]ital CLARITY clear NORMAL: Clear [facility] sp[facility] Specific gravity of Urine by Test strip 1.010 1.001 - 1.030 [facility] pH 6.5 5 - 9 [facility] Glucose [Mass/volume] in Urine by Test strip 1000 NORMAL: Negat [place] [facility] Bilirubin.total [Presence] in Urine by Test strip NEG NORMAL: Negative [facility] Ketones [Presence] in Urine by Test strip 5 NORMAL: Negative [facility] Protein [Mass/volume] in Urine by Test strip NEG NORMAL: Negat [facility] Nitrite [Presence] in Urine by Test strip NEG NORMAL: Negative [facility] BLOOD NEG NORMAL: Negative [facility] Leukocyte esterase [Presence] in Urine by Test strip NEG SANDRA L: Negative [facility] Urobilinogen [Mass/volume] in Urine by Test strip NOR less jenniffer n 1.0 mg/dL [facility] MICROSCOPIC Not Indicate [facility]spital ID Date Data Source [id number] 02/04/2020 09:46:00 [place] [address] CONSULTATIONNAME: DIMA Garcia ROOM#: [id number] OF : 1955 MR#: [id number] PHYS: Rbeeka Boucher PA-C DATE: 02/02/20DATE OF CONSULTATION: 02/03/2020HISTORY [...] the past, the patient was admitted to [facility], he was admitted several times. He [...] or rhonchi.ABDOMEN: Soft. Nontender. No visceromegaly. [address] [place] [address] CONSULTATIONNAME: DIMA Garcia ROOM#: [id number] OF : 1955 MR#: [id number] PHYS: Rebeka Boucher PA-C DATE: 02/02/20EXTREMTIES: Normal. [...] rce(s) Supporting Document(s) ID Date Data Source [id number] 02/04/2020 09:15:00 AM EDT [facility] [address] [place] [address] PHONE: [phone] FAX: [phone] Name .................. : DIMA Garcia Acct Number.................. : [id number] ROOM. ................. : TR-06 Number ................... : [id number] Stay type ............. : E/R Discharge Date......... ... : Admit Date ......... : 02/02/20 Admit Phys .................... : COONEYNORM Date of ....... : 1955 Family Phys ................... : TRU WATERMAN Phone .................. : [phone] Age ................................ : 65 Film# .................. .:[id number] Sex ................................. : M Unsigned transcriptions are preliminary reports and do not represent a medical or legal document CHEST PORTABLE [id number] COMPLETE:02/02/20 21:13 RLB 98410 Reason (s): Chest Pain PORTABLE CHEST X-RAY: [...] EMERGENCY DEPT via modem Copy for: [facility] REC Page 1 of 1 Name Value Range Interpretation Code Description Data Raquel rce(s) Supporting Document(s) ID Date Data Source [id number] 02/03/2020 07:25:00 [place] [address] RESPIRATORY CARE REPORT ==== ---------NAME------- NUMBER SEX AGE ADMIT DISC. XRAY# F/C AUTUMN Garcia [id number] M 65 02/02/20 02/03/20 [id number] MB4 O/P DATE OF : 1955 M/R# [id number] #: [id number] [facility] LOCATION: EMERGENCY DEPT EKG 83408 COMPL ETE:02/03/20 19:24 VMT [address]151 PHYSICIAN: GABRIELA Johnson Value Range Interpretation Code Description Data Raquel rce(s) Supporting Document(s) ID Date Data Source [id number] 02/03/2020 07:19:00 [place] [address] RESPIRATORY CARE REPORT ==== ---------NAME------- NUMBER SEX AGE ADMIT DISC. [facility]# [id number] 65 02/02/20 02/03/20 [id number] [id number] O/P DATE OF : 1955 M/R# [id number] PH#: [phone] [id number] LOCATION: EMERGENCY DEPT EKG 41228 COMPL ETE:02/03/20 01:58 VMT 37291 PHYSICIAN: GABRIELA ELDER Name Value Range Interpretation Code Description Data Raquel rce(s) Supporting Document(s) ID Date Data Source [id number] 02/03/2020 11:02:00 AM EDT [facility] Name Value Range Interpretation Code Description Data Raquel rce(s) Supporting Document(s) TROPONIN T <0.01 NG/ML 0.00 - 0.10 [facility]ital TROPONIN T0.1 ng/ml Recommended as the c linical threshold value forTroponin T. ID Date Data Source [id number] 02/03/2020 06:40:00 AM EDT [facility] Name Value Range Interpretation Code Description Data Raquel rce(s) Supporting Document(s) COMPREHENSIVE METABOLIC PANEL [facility] COMPREHENSIVE METABOLIC PANEL Sodium [Moles/volume] in Serum or Plasma 135 mEq/L 134 - 153 [facility] Potassium [Moles/volume] in Serum or Plasma 3.5 mEq/L 3.6 - 5.0 L [facility] Chloride [Moles/volume] in Serum or Plasma 101 mEq/L 98 - 107 [facility] Carbon dioxide, total [Moles/volume] in Serum or Plasma 26 MEQ/L 22 - 30 [facility] Glucose [Mass/volume] in Serum or Plasma 355 MG/DL 65 - 110 H [facility] BUN 9 MG/DL 7 - 21 [facility] al Creatinine [Mass/volume] in Serum or Plasma 0.6 MG/DL 0.7 - 1.5 L [facility] BUN/CREAT 15 8 - 27 [facility] Protein [Mass/volume] in Serum or Plasma 6.0 G/DL 6.3 - 8.2 L [facility] Albumin [Mass/volume] in Serum or Plasma 3.6 G/DL 3.9 - 5.0 L [facility] Globulin [Mass/volume] in Serum by calculation 2.4 GM/DL 2.4 - 3.2 [facility] A/G RATIO 1.5 0.8 - 2.0 [facility] Calcium [Mass/volume] in Serum or Plasma 8.8 MG/DL 8.4 - 10.2 [facility] Bilirubin.total [Mass/volume] in Serum or Plasma <0.7 MG/DL 0.2 - 1.3 [facility] Alkaline phosphatase [Enzymatic activity/volume] in Serum or Plasma 70 U/L 38 - 126 [facility] Aspartate aminotransferase [Enzymatic activity/volume] in Serum or Plasma 11 U/L 5 - 40 [facility] Alanine aminotransferase [Enzymatic activity/volume] in Seru m or Plasma 15 U/L 7 - 56 [facility] Anion gap 3 in Serum or Plasma 8.0 mmol/L 8.0 - 16.0 [facility] AGE 65 yrs [facility] al NON-AA GFR >60 mL/min [facility] ital AFR AMER GFR >60 mL/min [facility] sp[facility] Male GFR In terprentation 20-49 [...] >32 mL/min Normal ID Date Data Source [id number] 02/03/2020 06:04:00 AM EDT [facility] Name Value Range Interpretation Code Description Data Raquel rce(s) Supporting Document(s) CBC W/AUTOMATED DIFF [facility] COMPLETE BLOOD COUNT Leukocytes [#/volume] in Blood by Automated count 6.2 10^3/uL 4.2 - 1 1.0 [facility] Erythrocytes [#/volume] in Blood by Automated count 3.76 10^6/uL 4. 50 - 6.30 L [facility] Hemoglobin [Mass/volume] in Blood 11.3 g/dL 14.0 - 16.0 L [facility] Hematocrit [Volume Fraction] of Blood by Automated count 33.0 % 4 1.0 - 51.0 L [facility] Erythrocyte mean corpuscular volume [Entitic volume] by Auto mated count 87.8 fL 80.0 - 94.0 [facility] Erythrocyte mean corpuscular hemoglobin [Entitic mass] by Automated count 30.1 pg 27.0 - 34.0 [facility] Erythrocyte mean corpuscular hemoglobin concentration [Mass/volume] by Automated count 34.2 g/dL 31.0 - 36.0 [facility] Erythrocyte distribution width [Ratio] by Automated count 13.3 % 11.5 - 14.8 [facility] Platelets [#/volume] in Blood by Automated count 221 10^3/uL 150 - 45 0 [facility] Platelet mean volume [Entitic volume] in Blood by Automated count 9.9 fL 7.4 - 10.4 [facility] Neutrophils/100 leukocytes in Blood by Automated count 33.3 % 37. 0 - 80.0 L [facility] Lymphocytes/100 leukocytes in Blood by Manual count 58.5 % 25.0 - 40.0 H [facility] Monocytes/100 leukocytes in Blood by Automated count 6.3 % 3.0 - 8.0 [facility] Eosinophils/100 leukocytes in Blood by Automated count 1.1 % 0.0 - 7.0 [facility] Basophils/100 leukocytes in Blood by Automated count 0.6 % 0.0 - 2.0 [facility] %IG 0.2 % 0.0 - 0.0 H [facility] al %NRBC 0.0 % 0.0 - 0.0 [facility] al Neutrophils [#/volume] in Blood by Automated count 2.07 10^3/uL 2.00 - 6.90 [facility] Lymphocytes [#/volume] in Blood by Automated count 3.63 10^3/uL 0.60 - 3.40 H [facility] Monocytes [#/volume] in Blood by Automated count 0.39 10^3/uL 0.00 - 0.90 [facility] Eosinophils [#/volume] in Blood by Automated count 0.07 10^3/uL 0.00 - 0.70 [facility] Basophils [#/volume] in Blood by Automated count 0.04 10^3/uL 0.00 - 0.20 [facility] #IG 0.01 10^3/uL 0.00 - 0.10 [facility] ospital #NRBC 0.00 10^3/uL 0.00 - 0.00 [facility] MANUAL DIFF NOT INDICATED [facility] RBC MORPH NOT INDICATED [facility] ID Date Data Source [id number] 02/03/2020 04:49:00 AM EDT [facility] Name Value Range Interpretation Code Description Data Raquel rce(s) Supporting Document(s) TROPONIN T <0.01 NG/ML 0.00 - 0.10 [facility] TROPONIN T0.1 ng/ml Recommended as the c linical threshold value forTroponin T. ID Date Data Source [id number] 02/02/2020 10:01:00 PM EDT [facility] Name Value Range Interpretation Code Description Data Raquel rce(s) Supporting Document(s) URINALYSIS [facility] homero URINALYSIS SOURCE R [facility] al COLOR yellow NORMAL: Yellow [facility] CLARITY clear NORMAL: Clear [facility] sp[facility] Specific gravity of Urine by Test strip 1.010 1.001 - 1.030 [facility] pH 5 5 - 9 [facility] Glucose [Mass/volume] in Urine by Test strip 1000 NORMAL: Negat [place] [facility] Bilirubin.total [Presence] in Urine by Test strip NEG NORMAL: Negative [facility] Ketones [Presence] in Urine by Test strip 5 NORMAL: Negative [facility] Protein [Mass/volume] in Urine by Test strip 15 NORMAL: Negat [place] [facility] Nitrite [Presence] in Urine by Test strip NEG NORMAL: Negative [facility] BLOOD NEG NORMAL: Negative [facility] Leukocyte esterase [Presence] in Urine by Test strip NEG SANDRA L: Negative [facility] Urobilinogen [Mass/volume] in Urine by Test strip NOR less jenniffer n 1.0 mg/dL [facility] MICROSCOPIC See Below [facility] ital WBC 0 - 1 NORMAL: NONE SEEN [facility] ID Date Data Source [id number] 02/02/2020 09:24:00 PM EDT [facility] Name Value Range Interpretation Code Description Data Raquel rce(s) Supporting Document(s) Magnesium [Mass/volume] in Serum or Plasma 2.1 MG/DL 1.7 - 2.2 [facility] ID Date Data Source [id number] 02/02/2020 09:24:00 PM EDT [facility] Name Value Range Interpretation Code Description Data Raquel rce(s) Supporting Document(s) Lipase [Enzymatic activity/volume] in Serum or Plasma 58 U/L 13 - 60 [facility] ID Date Data Source [id number] 02/02/2020 09:23:00 PM EDT [facility] Name Value Range Interpretation Code Description Data Raquel rce(s) Supporting Document(s) COMPREHENSIVE METABOLIC PANEL [facility] COMPREHENSIVE METABOLIC PANEL Sodium [Moles/volume] in Serum or Plasma 131 mEq/L 134 - 153 L [facility] Potassium [Moles/volume] in Serum or Plasma 3.8 mEq/L 3.6 - 5.0 [facility] Chloride [Moles/volume] in Serum or Plasma 92 mEq/L 98 - 107 L [facility] Carbon dioxide, total [Moles/volume] in Serum or Plasma 26 MEQ/L 22 - 30 [facility] Glucose [Mass/volume] in Serum or Plasma 443 MG/DL 65 - 110 HH [facility] CALL/ READ BACK MARTY IN ED [facility] BY: [facility] ital BUN 12 MG/DL 7 - [facility] al Creatinine [Mass/volume] in Serum or Plasma 0.6 MG/DL 0.7 - 1.5 L [facility] BUN/CREAT 20 - [facility] Protein [Mass/volume] in Serum or Plasma 7.9 G/DL 6.3 - 8.2 [facility] Albumin [Mass/volume] in Serum or Plasma 4.8 G/DL 3.9 - 5.0 [facility] Globulin [Mass/volume] in Serum by calculation 3.1 GM/DL 2.4 - 3.2 [facility] A/G RATIO 1.5 0.8 - 2.0 [facility] Calcium [Mass/volume] in Serum or Plasma 10.1 MG/DL 8.4 - 10.2 [facility] Bilirubin.total [Mass/volume] in Serum or Plasma <0.7 MG/DL 0.2 - 1.3 [facility] Alkaline phosphatase [Enzymatic activity/volume] in Serum or Plasma 91 U/L 38 - 126 [facility] Aspartate aminotransferase [Enzymatic activity/volume] in Serum or Plasma 15 U/L 5 - 40 [facility] Alanine aminotransferase [Enzymatic activity/volume] in Seru m or Plasma 22 U/L 7 - 56 [facility] Anion gap 3 in Serum or Plasma 13.0 mmol/L 8.0 - 16.0 [facility]GE 65 [facility] GFR >60 mL/min [facility] ital AFR AMER GFR >60 mL/min [facility] sp[facility] Male GFR In terprentation 20-49 [...] >32 mL/min Normal ID Date Data Source [id number] 02/02/2020 09:22:00 PM EDT [facility] Name Value Range Interpretation Code Description Data Raquel rce(s) Supporting Document(s) BNP 160 PG/ML 0 - 125 H [facility] al ID Date Data Source [id number] 02/02/2020 08:54:00 PM EDT [facility] Name Value Range Interpretation Code Description Data Raquel rce(s) Supporting Document(s) TROPONIN T <0.01 NG/ML 0.00 - 0.10 [facility] ospital TROPONIN T0.1 ng/ml Recommended as the c linical threshold value forTroponin T. ID Date Data Source [id number] 02/02/2020 08:33:00 PM EDT [facility] Name Value Range Interpretation Code Description Data Raquel rce(s) Supporting Document(s) CBC W/AUTOMATED DIFF [facility] COMPLETE BLOOD COUNT Leukocytes [#/volume] in Blood by Automated count 10.5 10^3/uL 4.2 - 11.0 [facility] Erythrocytes [#/volume] in Blood by Automated count 4.57 10^6/uL 4. 50 - 6.30 [facility] Hemoglobin [Mass/volume] in Blood 14.2 g/dL 14.0 - 16.0 [facility] Hematocrit [Volume Fraction] of Blood by Automated count 39.6 % 4 1.0 - 51.0 L [facility] Erythrocyte mean corpuscular volume [Entitic volume] by Auto mated count 86.7 fL 80.0 - 94.0 [facility] Erythrocyte mean corpuscular hemoglobin [Entitic mass] by Automated count 31.1 pg 27.0 - 34.0 [facility] Erythrocyte mean corpuscular hemoglobin concentration [Mass/volume] by Automated count 35.9 g/dL 31.0 - 36.0 [facility] Erythrocyte distribution width [Ratio] by Automated count 13.4 % 11.5 - 14.8 [facility] Platelets [#/volume] in Blood by Automated count 265 10^3/uL 150 - 45 0 [facility] Platelet mean volume [Entitic volume] in Blood by Automated count 9.7 fL 7.4 - 10.4 [facility] Neutrophils/100 leukocytes in Blood by Automated count 48.9 % 37. 0 - 80.0 [facility] Lymphocytes/100 leukocytes in Blood by Manual count 42.0 % 25.0 - 40.0 H [facility] Monocytes/100 leukocytes in Blood by Automated count 7.8 % 3.0 - 8.0 [facility] Eosinophils/100 leukocytes in Blood by Automated count 0.4 % 0.0 - 7.0 [facility] Basophils/100 leukocytes in Blood by Automated count 0.6 % 0.0 - 2.0 [facility] %IG 0.3 % 0.0 - 0.0 [facility] %NRBC 0.0 % 0.0 - 0.0 [facility] al Neutrophils [#/volume] in Blood by Automated count 5.14 10^3/uL 2.00 - 6.90 [facility] Lymphocytes [#/volume] in Blood by Automated count 4.41 10^3/uL 0.60 - 3.40 H [facility] Monocytes [#/volume] in Blood by Automated count 0.82 10^3/uL 0.00 - 0.90 [facility] Eosinophils [#/volume] in Blood by Automated count 0.04 10^3/uL 0.00 - 0.70 [facility] Basophils [#/volume] in Blood by Automated count 0.06 10^3/uL 0.00 - 0.20 [facility] #IG 0.03 10^3/uL 0.00 - 0.10 [facility] ospital #NRBC 0.00 10^3/uL 0.00 - 0.00 [facility] ospital MANUAL DIFF NOT INDICATED [facility] RBC MORPH NOT INDICATED [facility] spital ID Date Data Source [id number] 01/07/2020 07:39:00 [place] [address] RESPIRATORY CARE REPORT ==== ---------NAME------- NUMBER SEX AGE ADMIT DISC. XRAY# [facility] [id number] 64 01/06/20 01/06/20 [id number] [id number] E/R DATE OF : 1955 M/R# [id number] PH#: [phone] - LOCATION: EMERGENCY DEPT EKG 90344 COMP LETE:01/07/20 07:15 [place] [id number] PHYSICIAN: WHITLEY OLMSTEAD Name Value Range Interpretation Code Description Data Raquel rce(s) Supporting Document(s) ID Date Data Source [id number] 01/07/2020 11:59:00 [place] [address] PHONE: [phone] FAX: [phone] Name .................. : FAITH DONNY A Acct Number.................. : [id number] ROOM. ................. : - Number ................... : [id number] Stay type ............. : E/R Discharge Date......... ... : 01/06/20 Admit Date ......... : 01/06/20 Admit Phys .................... : WHITLEY OLMSTEAD Date of ....... : 1955 Family Phys ................... : TRU WATERMAN Phone .................. : [phone] Age ................................ : 64 Film# .................. .:[id number] Sex ................................. : M Unsigned transcriptions are preliminary reports and do not represent a medical or legal document CT THORAX W/O CONTRAST [id number] COMPLETE:01/06/20 20:50 BEM [id number] Reason(s): fall, rig ht rib injury CT [...] By Wenceslao Hudson M.D. , 01/07/20 11:59, [facility] Transcribe Initials: CHELLY , Transcribe Date: 01/06/20 21:35, Dictation Date: Page 1 of 2 [place] [address] PHONE: [phone] FAX: [phone] Name .................. : DIMA Garcia Acct Number.................. : [id number] ROOM. ................. : TR-02 MR Number ................... : [id number] Stay type ............. : E/R Discharge Date......... ... : 01/06/20 Admit Date ......... : 01/06/20 Admit Phys .................... : Александр OLMSTEAD Date of ....... : 1955 Family Phys ................... : TRU WATERMAN Phone .................. : [phone] Age ................................ : 64 Film# .................. .:[id number] Sex ................................. : M Unsigned transcriptions are preliminary reports and do not represent a medical or legal document CT THORAX W/O CONTRAST [id number] COMPLETE:01/06/20 20:50 BEM [id number] Reason(s): fall, right rib injury Copy for: EMERGENCY DEPT via modem Copy f or: 710 MED REC DISCHARGED Page 2 of 2 Name Value Range Interpretation Code Description Data Raquel rce(s) Supporting Document(s) ID Date Data Source [id number] 01/06/2020 07:17:00 PM EDT [facility] 1 OrderSheet [facility] Emergency Department [address] [place] [address] Phone #: ext- [phone] 01/06/2020 19:14 Patient: DONNY FAITH Sex: M : 1955 Age: 64yWEIGHT:72.5 kg (S) HEIGHT:68 inches (S) BMI:24.3ALLERGIES: Benadryl, Copan, Motrin, Paxil, Penicillins, ThorazineCHIEF COMPLAINT: became dizzy, [...] Priority Entered Acknowledged InitialedEKG 19:28 01/06/2020 19:28 [place] ED Denver Arreaga Tiffany ER M.D.; Tech1 2 OrderSheet [facility] [address] [place] [address] Phone #: ext- [phone] 01/06/2020 19:14 Patient: DONNY FAITH Sex: M : 1955 Age: 64y[Electronically signed by Denver Arreaga M.D. (00:30 01/07/2020)][Electronically signed by Brandy Batista R.N. (:52 01/07/2020)][Electronically locked by Brandy Batista R.N. (01/07/2020)] Name Value Range Interpretation Code Description Data Raquel rce(s) Supporting Document(s) ID Date Data Source [id number] 01/06/2020 07:17:00 PM EDT [facility] 1 Medication Reconciliation Report [facility] Department [address] [place] [address] Phone #: ext [phone] 01/06/2020 19:14 Patient: DONNY FAITH Sex: M : 1955 Age: 64yWeight: 72.5 kgHeight/Length: 68 in.BMI: 24.3ALLERGIES: Benadryl, Copan, Motrin, Paxil, Penicillins, ThorazineThe patient's Home Medications are listed below:CONTINUE TAKING THE FOLLOWING MEDICATIONS: Advair Diskus Inhalation (500-50 mcg/dose) 1 inhalation, 2x a day Advocate Insulin Pen [place] Aspir-81 Oral (81 mg) 1 tablet, daily Basaglar 20 unita, at bedtime [facility] Claritin Oral (5 mg) 1 tablet, daily, [...] 2x a day 2 Medication Reconciliation Report [facility] [address] [place] [address] Phone #: ext- [phone] 01/06/2020 19:14 --------- [...] rce(s) Supporting Document(s) ID Date Data Source [id number] 01/06/2020 07:17:00 PM EDT [facility] 1 Medication Administration Record [facility] [address] [place] [address] Phone #: ext- [phone] 01/06/2020 19:14 Patient: DONNY FAITH Sex: M : 1955 Age: 64yWeight: 72.5 kgHeight/Length: 68 inBMI: 24.3ALLERGIES: Benadryl, Copan, Motrin, Paxil, Penicillins, ThorazineDate/Time Medication Administered Medication Ordered Name Value Range Interpretation Code Description Data Raquel rce(s) Supporting Document(s) ID Date Data Source [id number] 01/06/2020 07:17:00 PM EDT [facility] 1 General Instructions [facility] [address] [place] [address] Phone #: ext- [phone] 01/06/2020 19:14 Patient: [...] inhalation 2x a day. Advocate Insulin Pen [place]*. Aspir-81 Oral : Tablet Delayed Release 81 mg, 1 tablet daily. Basaglar* : 20 unita, at bedtime. [facility]* : [place]. Claritin Oral : Tablet [...] : 2x a day. 2 General Instructions [facility] [address] [place] [address] Phone #: ext- [phone] 01/06/2020 19:14 Patient: [...] inflammation, swelling and pain. 3 General Instructions [facility] [address] [place] [address] Phone #: ext- [phone] 01/06/2020 19:14 Patient: [...] falls. Use night lights. 4 General Instructions [facility] [address] [place] [address] Phone #: ext- [phone] 01/06/2020 19:14 Patient: DONNY FAITH Sex: M : 1955 Age: 64y Have your eyes tested to be sure you are seeing well, even if you already wear glasses.Follow-upFollow up with your healthcare provider, or as advised. If X-rays or CT scans were done, you will benotified if there is a change in the reading, especially if it affects treatment.Call [phone] if any of these happen: Trouble breathing [...] in vomit, stools (black or red color) [id number] [employer]. [address] [place] [address]. All rights reserved. This information is not intended as asubstitute for professional medical care. Always follow your healthcare professional's instructions.Rib Fracture 5 General Instructions [facility] [address] [place] [address] Phone #: ext- [phone] 01/06/2020 19:14 Patient: DONNY FAITH Sex: M [...] of pain and swelling. You may use [id number] pain medicine to control pain, unless another pain medicine 6 General Instructions [facility] Emergency Department [address] [place] [address] Phone #: ext- [phone] 01/06/2020 19:14 Patient: [...] new findings that may affect your care.Call [phone] if you have: Dizziness, weakness or fainting [...] healthcare provider Congested cough, nausea, or vomiting [phone] [employer]. [address] [place] [address]. All rights reserved. This information is not intended as asubstitute for professional medical care. Always follow your healthcare professional's instructions. You have been given the following additional information: Mechanical Fall Rib Fracture 7 General Instructions [facility] [address] [place] [address] Phone #: ext- [phone] 01/06/2020 19:14 Patient: DONNY FAITH Sex: M : 1955 Age: 64y(Electronically signed by Denver Arreaga M.D. 01/07/2020 00:30) Name Value Range Interpretation Code Description Data Raquel rce(s) Supporting Document(s) ID Date Data Source [id number] 01/06/2020 07:17:00 PM EDT [facility] 1 Clinical Report - Nurses [facility] [address] [place] [address] Phone #: ext- [phone] 01/06/2020 19:14 Patient: [...] ribs. No redness or deformity noted.). Treatment KNOTTER HAND: None. SEPSIS SCREEN: Sepsis Screen negative. No [...] inhalation, 2x a day. Advocate Insulin Pen [place]. Aspir-81 Oral (Tablet Delayed Release 81 mg) 1 tablet, daily. Basaglar 20 unita, at bedtime. [facility]. Claritin Oral (Tablet Chewable 5 mg) 1 [...] HFA Inhalation. 2 Clinical Report - Nurses [facility] Department [address] [place] [address] Phone #: ext- [phone] 01/06/2020 19:14 Patient: [...] pt on day 3. --19:01/06/20 Cecilia Philip R.N.AllergiesBenadryl.Copan.Motrin.Paxil.Penicillins.Thorazine. --19:01/06/20 Cecilia Philip R.NPadmaThe following entry was struck by Denver Arreaga M.D., 20:49 (01/06/20) Reason - wrong value.Acetaminophen. --19:01/06/20 Cecilia Philip RPadmaN. .PROBLEMS:Dementia.CVA - Cerebrovascular Accident.Diabetes Mellitus Type 2.Diabetes Mellitus.Emphysema.COPD - Chronic Obstructive Pulmonary Disease.Bleeding Ulcer.Asthma.Arrhythmia.Chest Wall Pain.Chest Pain.Bronchitis.Seizure.Rib Fracture.Parkinson's Disease.Syncope.Sprain.Sleep Apnea.Hypertension.Hypercholesterolemia.Heart Disease.Neck Pain.RI.Lung Disease. --19:01/06/20 Cecilia Philip R.N. 3 Clinical Report - Nurses [facility] [address] [place] [address] Phone #: ext- [phone] 01/06/2020 19:14 Patient: [...] Saline lock flushed with 10 mL saline. --01/06/20 4 Clinical Report - Nurses [facility] [address] [place] [address] Phone #: ext- [phone] 01/06/2020 19:14 Patient: DONNY FAITH Sex: M : 1955 Age: 64y Cecilia Philip R.N. Cardiac rhythm: normal sinus rhythm; sinus block; 1st degree AV block. EKG time: (:18 01/06/2020). EKG was performed by a tech and shown to the ED physician. Patient gowned. Reassurance given. Two patient identifiers checked. Call light placed in reach. Side rails up x 2. Bed placed in lowest position. Brakes of bed on. --:01/06/20 Cecilia Philip R.N. 19:01/06/20. BP: 116/78. MAP: 90. HR: 83. RR: 25. O2 saturation: 100%. --19:30 01/06/20 Kenny MANN TechIvon ER Tech1 20:27 01/06/20. BP: 122/82. MAP: 95. HR: 82. RR: 25. O2 saturation: 99%. --20:27 01/06/20 [place] passenger booking clerkIvon ER Tech1 20:09 01/06/20. Reassurance given to [...] Patient verbalized understanding. Written instructions provided in [place]. The patient was discharged by the physician. [...] rce(s) Supporting Document(s) ID Date Data Source [id number] 01/06/2020 07:17:00 PM EDT [facility] 1 Clinical Report - Physicians/Mid Levels [facility] [address] [place] [address] Phone #: ext- [phone] 01/06/2020 19:14 Patient: DONNY FAITH Sex: M [...] Apnea. 2 Clinical Report - Physicians/Mid Levels [facility] [address] [place] [address] Phone #: ext- [phone] 01/06/2020 19:14 Patient: DONNY FAITH Sex: M : 1955 Age: 64yHypertension.Hypercholesterolemia.Heart Disease.Neck Pain.RI.Lung Disease.Sinusitis [Resolved].Lower Extremity Pain [Resolved].Upper Extremity Pain [Resolved].Additional Surgeries:Appendectomy.Cholecystectomy.Medications:Advair Diskus Inhalation (Aerosol Powder Breath Activated 500-50 mcg/dose) 1 inhalation, 2x a day.Advocate Insulin Pen [place].Aspir-81 Oral (Tablet Delayed Release 81 mg) 1 tablet, daily.Basaglar 20 unita, at bedtime.[facility].Claritin Oral (Tablet Chewable 5 mg) 1 tablet, [...] pack 1 tab day pt on day 3.Allergies:Benadryl.Copan.Motrin.Paxil. 3 Clinical Report - Physicians/Mid Levels [facility] [address] [place] [address] Phone #: ext- [phone] 01/06/2020 19:14 --------- Patient: DONNY FAITH Sex: [...] Normal ST and T waves. old septal RI. EKG unchanged when compared with prior EKG. [...] COUNT 4 Clinical Report - Physicians/Mid Levels [facility] [address] [place] [address] Phone #: ext- [phone] 01/06/2020 19:14 Patient: [...] Male GFR Interprentation 20-49 yrs >60 mL/min Raauiz14-66 yrs >56 mL/min Normal 60-69 yrs >49 mL/min Normal 70-79yrs>42 mL/min Normal 80 and above >35 mL/min Normal Female GFRInterpretation 20-39 yrs >60 mL/min Normal 40-49 yrs >58 mL/minNormal 50-59 yrs >51 mL/min Normal 60-69 yrs >45 mL/min Dejprh40-04 yrs >39 mL/min Normal 80 and above >32 mL/min Normal 5 Clinical Report - Physicians/Mid Levels [facility] [address] [place] [address] Phone #: ext- [phone] 01/06/2020 19:14 Patient: DONNY FAITH Sex: M : 1955 Age: 64y PT/PTT: (ROSARIO: 01/06/2020 19:50) ( LagRcvd 01/06/2020 20:22) Final results Test Result Flag Units (Reference) PROTIME 13.2 SECONDS (11.0 - 15.5) INR 0.99 (0.93 - 1.23) PTT 30.0 SECONDS (24.8 - 36.7) \\BLDo\\INR INTERPRETATION\\BLDx\\ Therapeutic range for Coumadin and related oral anticoagulants. -International Normalized Ratio (INR): 2.0 - 3.0 for Venous Thrombosis, Pulmonary Embolus, Tissue heart valves, Acute RI Atrial Fibrillation, Valvular heart disease and recurrent [...] was requested by: Denver Arreaga Reference #: [id number] Others' Prescriptions Patient Name: Donny FaithBirth Date: 1955 Address: [address] [place], [place] [address]Sex: Male Rx Written Rx Dispensed Drug Quantity [...] Medicare 6 Clinical Report - Physicians/Mid Levels [facility] [address] [place] [address] Phone #: ext- [phone] 01/06/2020 19:14 [id number] Sex: M : 1955 Age: 64y [employer] 04/24/2019 04/24/2019 acetaminophen-cod #3 tablet 60 30 Rufus Ott MD Medicare [facility] 03/23/2019 03/23/2019 acetaminophen-cod #3 tablet 60 30 Rufus Ott MD Medicare [facility] 02/18/2019 02/18/2019 acetaminophen-cod #3 tablet 60 30 Rufus Ott MD Medicare [employer] Patient Name: Donny FaithBirth Date: 1955 Address: [address] [place], [place] [address]Sex: Male Rx Written Rx Dispensed Drug Quantity Days Supply Prescriber Name Payment Method Dispenser 07/02/2019 07/02/2019 oxycodone-acetaminophen 5-325 mg tablet 30 15 Marybeth Morin (LEARNING AND DEVELOPMENT MANAGER) [facility] Patient Name: Donny FaithBirth Date: 1955 Address: [place], [place] [address]Sex: Male Rx Written Rx Dispensed Drug Quantity Days Supply Prescriber Name Payment Method Dispenser 01/12/2019 01/17/2019 acetaminophen-cod #3 tablet 60 15 Rufus Ott MD Medicare [employer] * - Drugs marked with an asterisk [...] stumbling. 7 Clinical Report - Physicians/Mid Levels [facility] [address] [place] [address] Phone #: ext- [phone] 01/06/2020 19:14 Patient: [...] inhalation 2x a day. Advocate Insulin Pen [place]*. Aspir-81 Oral : Tablet Delayed Release 81 mg, 1 tablet daily. Basaglar* : 20 unita, at bedtime. [facility] Claritin Oral : Tablet Chewable 5 mg, [...] paper. 8 Clinical Report - Physicians/Mid Levels [facility] [address] [place] [address] Phone #: ext- [phone] 01/06/2020 19:14 Patient: [...] rce(s) Supporting Document(s) ID Date Data Source [id number] 01/06/2020 08:33:00 PM EDT [facility] Name Value Range Interpretation Code Description Data Raquel rce(s) Supporting Document(s) TROPONIN T <0.01 NG/ML 0.00 - 0.10 [facility] ospital TROPONIN T0.1 ng/ml Recommended as the c linical threshold value forTroponin T. ID Date Data Source [id number] 01/06/2020 08:33:00 PM EDT [facility] Name Value Range Interpretation Code Description Data Raquel rce(s) Supporting Document(s) Creatine kinase [Enzymatic activity/volume] in Serum or Plasma 1 92 U/L 30 - 170 H [facility] ID Date Data Source [id number] 01/06/2020 08:33:00 PM EDT [facility] Name Value Range Interpretation Code Description Data Raquel rce(s) Supporting Document(s) COMPREHENSIVE METABOLIC PANEL [facility] COMPREHENSIVE METABOLIC PANEL Sodium [Moles/volume] in Serum or Plasma 134 mEq/L 134 - 153 [facility] Potassium [Moles/volume] in Serum or Plasma 3.6 mEq/L 3.6 - 5.0 [facility] Chloride [Moles/volume] in Serum or Plasma 96 mEq/L 98 - 107 L [facility] Carbon dioxide, total [Moles/volume] in Serum or Plasma 23 MEQ/L 22 - 30 [facility] Glucose [Mass/volume] in Serum or Plasma 262 MG/DL 65 - 110 H [facility] BUN 7 MG/DL 7 - [facility] Creatinine [Mass/volume] in Serum or Plasma 0.7 MG/DL 0.7 - 1.5 [facility] BUN/CREAT 10 8 - 27 [facility] al Protein [Mass/volume] in Serum or Plasma 9.0 G/DL 6.3 - 8.2 H [facility] Albumin [Mass/volume] in Serum or Plasma 5.3 G/DL 3.9 - 5.0 H [facility] Globulin [Mass/volume] in Serum by calculation 3.7 GM/DL 2.4 - 3.2 H [facility] A/G RATIO 1.4 0.8 - 2.0 [facility] al Calcium [Mass/volume] in Serum or Plasma 10.0 MG/DL 8.4 - 10.2 [facility] Bilirubin.total [Mass/volume] in Serum or Plasma <0.7 MG/DL 0.2 - 1.3 [facility] Alkaline phosphatase [Enzymatic activity/volume] in Serum or Plasma 121 U/L 38 - 126 [facility] Aspartate aminotransferase [Enzymatic activity/volume] in Serum or Plasma 19 U/L 5 - 40 [facility] Alanine aminotransferase [Enzymatic activity/volume] in Seru m or Plasma 24 U/L 7 - 56 [facility] Anion gap 3 in Serum or Plasma 15.0 mmol/L 8.0 - 16.0 [facility] AGE 64 yrs [facility] al NON-AA GFR >60 mL/min [facility] ital AFR AMER GFR >60 mL/min [facility] spital Male GFR In terprentation 20-49 [...] >32 mL/min Normal ID Date Data Source [id number] 01/06/2020 08:22:00 PM EDT [facility] Name Value Range Interpretation Code Description Data Raquel rce(s) Supporting Document(s) Prothrombin time (PT) 13.2 SECONDS 11.0 - 15.5 [facility] INR in Platelet poor plasma by Coagulation assay 0.99 0.93 - 1. 23 [facility] aPTT in Blood by Coagulation assay 30.0 SECONDS 24.8 - 36.7 [facility] \\BLDo\\INR INTERPRETATION\\BLDx\\ Therapeutic range for Coumadin and related oral anticoagulants. - International Normalized Ratio (INR): 2.0 - 3.0 for Venous Thrombosis, Pulmonary Embolus, Tissue heart valves, Acute RI Atrial Fibrillation, Valvular heart disease and recurrent Systemic Embolism. - International Normalized Ratio (INR): 2.5 - 3.5 for Mechanical Prosthetic valve. ID Date Data Source [id number] 01/06/2020 08:14:00 PM EDT [facility] Name Value Range Interpretation Code Description Data Raquel rce(s) Supporting Document(s) CBC W/AUTOMATED DIFF [facility] COMPLETE BLOOD COUNT Leukocytes [#/volume] in Blood by Automated count 6.7 10^3/uL 4.2 - 1 1.0 [facility] Erythrocytes [#/volume] in Blood by Automated count 4.95 10^6/uL 4. 50 - 6.30 [facility] Hemoglobin [Mass/volume] in Blood 15.1 g/dL 14.0 - 16.0 [facility] Hematocrit [Volume Fraction] of Blood by Automated count 43.6 % 4 1.0 - 51.0 [facility] Erythrocyte mean corpuscular volume [Entitic volume] by Auto mated count 88.1 fL 80.0 - 94.0 [facility] Erythrocyte mean corpuscular hemoglobin [Entitic mass] by Automated count 30.5 pg 27.0 - 34.0 [facility] Erythrocyte mean corpuscular hemoglobin concentration [Mass/volume] by Automated count 34.6 g/dL 31.0 - 36.0 [facility] Erythrocyte distribution width [Ratio] by Automated count 14.1 % 11.5 - 14.8 [facility] Platelets [#/volume] in Blood by Automated count 266 10^3/uL 150 - 45 0 [facility] Platelet mean volume [Entitic volume] in Blood by Automated count 9.3 fL 7.4 - 10.4 [facility] Neutrophils/100 leukocytes in Blood by Automated count 37.3 % 37. 0 - 80.0 [facility] Lymphocytes/100 leukocytes in Blood by Manual count 49.5 % 25.0 - 40.0 H [facility] Monocytes/100 leukocytes in Blood by Automated count 8.0 % 3.0 - 8.0 [facility] Eosinophils/100 leukocytes in Blood by Automated count 4.0 % 0.0 - 7.0 [facility] Basophils/100 leukocytes in Blood by Automated count 0.9 % 0.0 - 2.0 [facility] %IG 0.3 % 0.0 - 0.0 H [facility] al %NRBC 0.0 % 0.0 - 0.0 [facility] al Neutrophils [#/volume] in Blood by Automated count 2.51 10^3/uL 2.00 - 6.90 [facility] Lymphocytes [#/volume] in Blood by Automated count 3.33 10^3/uL 0.60 - 3.40 [facility] Monocytes [#/volume] in Blood by Automated count 0.54 10^3/uL 0.00 - 0.90 [facility] Eosinophils [#/volume] in Blood by Automated count 0.27 10^3/uL 0.00 - 0.70 [facility] Basophils [#/volume] in Blood by Automated count 0.06 10^3/uL 0.00 - 0.20 [facility] #IG 0.02 10^3/uL 0.00 - 0.10 [facility] #NRBC 0.00 10^3/uL 0.00 - 0.00 [facility] ospital MANUAL DIFF NOT INDICATED [facility] RBC MORPH NOT INDICATED [facility] spital ID Date Data Source [id number] 11/13/2019 10:57:00 AM EDT [facility] Name: DONNY FAITH : 1955 Age: 64 MR#: [id number] Admit Date: 11/10/19 Provider: Hao Vallejo Room [...] initially presented to the emergency department at [facility] on 11/09 after a fall and possible syncope. CT at [place] was negative for acute hemorrhage, but bilateral [...] home. Vital signs today: Temp 97.3 F, MS 88, RR 20, BP 110/69 Most recent [...] not indicated. This note was dictated using [employer] voice recognition software. Most Recent Lab Results: [...] % (Auto) 58.9, Lymph % (Auto) 27.3, [place] % (Auto) 10.0, Eos % (Auto) 2.8, [...] initially presented to the emergency department at [facility] on 11/09 after a fall and possible syncope. CT at [place] was negative for acute hemorrhage, but bilateral [...] home. Vital signs today: Temp 97.3 F, MS 88, RR 20, BP 110/69 Most recent [...] not indicated. This note was dictated using [employer] voice recognition software. Exam Condition Vital Signs [...] Obstructive Pulmonary Disease) (DC) Medications Home Medications Basaglar JoyikPen U-100 Insulin 20 unit SUBCUT HS 11/10/19 [...] gabapentin 300 mg capsule 300 mg PO , RF: 0 ramipril 1.25 mg capsule 1.25 [...] rce(s) Supporting Document(s) ID Date Data Source [id number] 11/13/2019 05:40:00 AM EDT [facility] Name Value Range Interpretation Code Description Data Raquel rce(s) Supporting Document(s) Leukocytes [#/volume] in Blood by Automated count 9.3 10*3/uL 4.45-10 .71 N [facility] Erythrocytes [#/volume] in Blood by Automated count 4.35 10*6/uL 4.3- 6.1 N [facility] Hemoglobin [Moles/volume] in Blood 13.5 g/dL 13-18 N [facility] Hematocrit [Volume Fraction] of Blood by Automated count 38.9 % 42-52 Below low normal [facility] Erythrocyte mean corpuscular volume [Ent itic volume] in Cord blood by Automated count 89.4 fL 80-96 N [facility] ital Erythrocyte mean corpuscular hemoglobin [Entitic mass] by Automated count 31.0 pg 27-31 N [facility] l Erythrocyte mean corpuscular hemoglobin concentration [Mass/volume] in Cord blood 34.7 g/dL 33-37 N [facility] ital Erythrocyte distribution width [Entitic volume] by Automated count 14 % 11-15 N [facility] Platelets [#/volume] in Blood by Automated count 226 10*3/uL 130-472 N [facility] Platelet mean volume [Entitic volume] in Blood 9.1 fL 9.1-13.1 N [facility] Neutrophils/100 leukocytes in Blood by Automated count 58.9 % 41- 77 N [facility] Neutrophils [#/volume] in Blood by Automated count 5.5 U 1.7-7.6 N [facility] Lymphocytes/100 leukocytes in Blood by Automated count 27.3 % 14- 46 N [facility] Lymphocytes [#/volume] in Blood by Automated count 2.5 U 0.6-4.6 N [facility] Monocytes/100 leukocytes in Blood by Automated count 10.0 % 4-12 N [facility] Monocytes [#/volume] in Blood by Automated count 0.9 U 0.2-1.2 N [facility] Eosinophils/100 leukocytes in Blood by Automated count 2.8 % 0-7 N [facility] Eosinophils [#/volume] in Blood by Automated count 0.3 U 0.0-0.5 N [facility] Basophils/100 leukocytes in Blood by Automated count 0.8 % 0.4-1 .3 N [facility] Basophils [#/volume] in Blood by Automated count 0.1 U 0.0-0.2 N [facility] NUCLEATED RED BLOOD CELL 0 % [facility] NUCLEATED RED BLOOD CELL# 0 U [facility] Immature granulocytes [Presence] in Blood by Automated count 0-2 [facility] [place] [facility] Imm[facility] granulocytes [#/volume] in Blood by Automated count 0.0 U 0-0.1 N [facility] Manual Differential panel - Blood NO [facility] ID Date Data Source [id number] 11/13/2019 06:17:00 AM EDT [facility] Name Value Range Interpretation Code Description Data Raquel rce(s) Supporting Document(s) Urea nitrogen [Mass/volume] in Serum or Plasma 16 mg/dL 9-23 N [facility] Sodium [Moles/volume] in Serum or Plasma 137 mmol/L 132-146 [facility] Potassium [Moles/volume] in Serum or Plasma 3.8 mmol/L 3.5-5.5 [facility] Chloride [Moles/volume] in Serum or Plasma 107 mmol/L 99-109 [facility] Carbon dioxide, total [Moles/volume] in Serum or Plasma 25 mmol/L 20 -31 [facility] Anion gap in Serum or Plasma 9 mmol/L 8-16 [facility] Glucose [Mass/volume] in Serum or Plasma 254 mg/dL 74-106 Above high normal [facility] Creatinine 0.8 mg/dL 0.5-1.1 [facility] Glomerular filtration rate/1.73 sq M.pre dicted [Volume Rate/Area] in Serum or Plasma Greater Than 60 ABOVE 60 [facility] Alanine aminotransferase [Enzymatic acti vity/volume] in Serum or Plasma by With P-5'-P 20 U/L 10-49 [facility] ital Aspartate aminotransferase [Enzymatic ac tivity/volume] in Serum or Plasma by With P-5'-P 14 U/L 0-33 N [facility] pital Alkaline phosphatase [Enzymatic activity/volume] in Serum or Plasma 84 U/L 45-129 [facility] Calcium [Mass/volume] in Serum or Plasma 8.7 mg/dL 8.5-10.1 [facility] Bilirubin.total [Mass/volume] in Serum or Plasma 0.4 mg/dL 0.3-1.2 [facility] Albumin [Mass/volume] in Serum or Plasma by Bromocresol purple (BCP) dye binding method 3.2 g/dL 3.2-4.8 N [facility] ital Protein [Mass/volume] in Serum or Plasma 6.8 g/dL 5.7-8.2 N [facility] ID Date Data Source [id number] 11/12/2019 06:53:00 PM EDT [facility] Name: DONNY FAITH : 1955 Age: 64 MR#: [id number] Admit Date: 11/10/19 Provider: Hao Vallejo Room [...] by Michael Oswald MD> 11/13/19799 [facility] 11/13/19716 [facility] 11/13/19716 CC: Subjective-ROS Date of service Date of service:: 11/12/19 Review of Systems Attestation/Length Of Stay: Patient is a pleasant 64-year-old male whom we are following status post bilateral posterior lateral rib fractures. He presented to the ED at [place] on November 09 after a fall, possibly [...] Admit to Inpatient, Acute [STATUS[facility]: B Rib Fracture, Syncope Admitting [...] % (Auto) 51.0, Lymph % (Auto) 34.1, [place] % (Auto) 11.7, Eos % (Auto) 2.5, [...] rce(s) Supporting Document(s) ID Date Data Source [id number] 11/16/2019 07:07:00 PM EDT [facility] Name Value Range Interpretation Code Description Data Raquel rce(s) Supporting Document(s) Levetiracetam (Keppra) Level 9.5 ug/mL 10.0-40.0 [facility] This test was developed and its performa nce characteristicsdetermined by [employer]. It has not been cleared orapproved by the Food and Drug Administration.Performed at: [address] [id number] Director: Neal Morris MD, Phone: [phone] ID Date Data Source [id number] 11/16/2019 07:07:00 PM EDT [facility] Name Value Range Interpretation Code Description Data Raquel rce(s) Supporting Document(s) Topiramate [Mass/volume] in Serum or Plasma 3.5 ug/mL 2.0-25.0 [facility] This test was developed and its performa nce characteristicsdetermined by [employer]. It has not been cleared orapproved by the Food and Drug Administration. Detection Limit = 1.0Performed at: [facility] [place] [address] [place], [place] [id number] Director: Neal Morris MD, Phone: [phone] ID Date Data Source [id number] 11/12/2019 05:41:00 AM EDT [facility] Name Value Range Interpretation Code Description Data Raquel rce(s) Supporting Document(s) Leukocytes [#/volume] in Blood by Automated count 8.1 10*3/uL 4.45-10 .71 N [facility] Erythrocytes [#/volume] in Blood by Automated count 4.22 10*6/uL 4.3-6.1 Below low normal [facility] Hemoglobin [Moles/volume] in Blood 13.1 g/dL 13-18 N [facility] Hematocrit [Volume Fraction] of Blood by Automated count 37.5 % 42-52 Below low normal [facility] Erythrocyte mean corpuscular volume [Ent itic volume] in Cord blood by Automated count 88.9 fL 80-96 N [facility] ital Erythrocyte mean corpuscular hemoglobin [Entitic mass] by Automated count 31.0 pg 27-31 [facility] Erythrocyte mean corpuscular hemoglobin concentration [Mass/volume] in Cord blood 34.9 g/dL 33-37 N [facility] ital Erythrocyte distribution width [Entitic volume] by Automated count 14 % 11-15 N [facility] Platelets [#/volume] in Blood by Automated count 219 10*3/uL 130-472 N [facility] Platelet mean volume [Entitic volume] in Blood 9.0 fL 9.1-13. 1 Below low normal [facility] Neutrophils/100 leukocytes in Blood by Automated count 51.0 % 41- 77 N [facility] Neutrophils [#/volume] in Blood by Automated count 4.1 U 1.7-7.6 N [facility] Lymphocytes/100 leukocytes in Blood by Automated count 34.1 % 14- 46 N [facility] Lymphocytes [#/volume] in Blood by Automated count 2.8 U 0.6-4.6 N [facility] Monocytes/100 leukocytes in Blood by Automated count 11.7 % 4-12 N [facility] Monocytes [#/volume] in Blood by Automated count 1.0 U 0.2-1.2 N [facility] Eosinophils/100 leukocytes in Blood by Automated count 2.5 % 0-7 N [facility] Eosinophils [#/volume] in Blood by Automated count 0.2 U 0.0-0.5 N [facility] Basophils/100 leukocytes in Blood by Automated count 0.5 % 0.4-1 .3 N [facility] Basophils [#/volume] in Blood by Automated count 0.0 U 0.0-0.2 N [facility] NUCLEATED RED BLOOD CELL 0 % [facility] NUCLEATED RED BLOOD CELL# 0 U [facility] Immature granulocytes [Presence] in Blood by Automated count 0-2 N [facility] Immature granulocytes [#/volume] in Blood by Automated count 0.0 U 0-0.1 N [facility] Manual Differential panel - Blood NO [facility] ID Date Data Source [id number] 11/12/2019 06:22:00 AM EDT [facility] Name Value Range Interpretation Code Description Data Raquel rce(s) Supporting Document(s) Urea nitrogen [Mass/volume] in Serum or Plasma 14 mg/dL 9-23 N [facility] Sodium [Moles/volume] in Serum or Plasma 133 mmol/L 132-146 N [facility] Potassium [Moles/volume] in Serum or Plasma 3.3 mmol/L 3.5-5.5 Below low normal [facility] Chloride [Moles/volume] in Serum or Plasma 102 mmol/L 99-109 N [facility] Carbon dioxide, total [Moles/volume] in Serum or Plasma 24 mmol/L 20 -31 N [facility] Anion gap in Serum or Plasma 10 mmol/L 8-16 N [facility] Glucose [Mass/volume] in Serum or Plasma 262 mg/dL 74-106 Above high normal [facility] Creatinine 0.7 mg/dL 0.5-1.1 N [facility] Glomerular filtration rate/1.73 sq M.pre dicted [Volume Rate/Area] in Serum or Plasma Greater Than 60 ABOVE 60 [facility] Alanine aminotransferase [Enzymatic acti vity/volume] in Serum or Plasma by With P-5'-P 20 U/L 10-49 N [facility] ital Aspartate aminotransferase [Enzymatic ac tivity/volume] in Serum or Plasma by With P-5'-P 11 U/L 0-33 N [facility] pital Alkaline phosphatase [Enzymatic activity/volume] in Serum or Plasma 89 U/L 45-129 N [facility] Calcium [Mass/volume] in Serum or Plasma 8.7 mg/dL 8.5-10.1 N [facility] Bilirubin.total [Mass/volume] in Serum or Plasma 0.4 mg/dL 0.3-1.2 N [facility] Albumin [Mass/volume] in Serum or Plasma by Bromocresol purple (BCP) dye binding method 3.1 g/dL 3.2-4.8 Below low normal [facility] Protein [Mass/volume] in Serum or Plasma 6.6 g/dL 5.7-8.2 N [facility] ID Date Data Source [id number] 11/11/2019 02:48:00 PM EDT [facility] [address] [place] [address] [phone] NAME SEX PT STATUS ACCOUNT NUMBER DONNY FIATH ADM IN [id number] ORDERING PHYSICIAN LOCATION MEDICAL RECORD NO. Enriquez AMMON MelissaCurtis EW [id number] ATTENDING PHYSICIAN DATE OF DATE OF EXAM/TIME [...] on 11/11/19 1455 Date Time CC: Fred Quene MD; Guevara Ott MD Techn: DORIS Cuevas Dt/Tm: Trans by: DT Prt Dt/Tm: : Total DLP = 0.00 mGy-cm : Total Radiation Dose = 0.0000 mSv Lifetime Dose: 0 mSv Name Value Range Interpretation Code Description Data Raquel rce(s) Supporting Document(s) ID Date Data Source [id number] 11/11/2019 01:56:00 PM EDT [facility] Therapy Department DONNY FAITH : 1955 [id number] Attending: Jaylon Baird MD OT Inpatient Evaluation [...] a 64 y/o male who presented from [facility] with bilateral rib fx secondary to [...] Level of Function:: [facility] Pt uses elevator to get [...] rce(s) Supporting Document(s) ID Date Data Source [id number] 11/11/2019 11:48:00 AM EDT [facility] [address] [place] [address] PHONE: [phone] FAX: [phone] Name .................. : DIMA Garcia Acct Number.................. : [id number] ROOM. ................. : [address] Number ................... : [id number] Stay type ............. : E/R Discharge Date......... ... : 11/10/19 Admit Date ......... : 11/10/19 Admit Phys .................... : MITCHELL CHUN Date of ....... : 1955 Family Phys ................... : TRU WATERMAN Phone .................. : [phone] Age ................................ : 64 Film# .................. .:[id number] Sex ................................. : M Unsigned transcriptions are preliminary reports and do not represent a medical or legal document CT ABD & PELVIS W/ IV ONLY [id number] COMPLETE:11/10/19 15:11 [facility] [place] [address] Reason(s): Tr auma/Injury CT SCAN OF THE [...] and Signed By Page 1 of 2 [place] [address] PHONE: [phone] FAX: [phone] Name .................. : DIMA Garcia Accалександр Number.................. : [id number] ROOM. ................. : TR-08 Number ................... : [id number] Stay type ............. : E/R Discharge Date......... ... : 11/10/19 Admit Date ......... : 11/10/19 Admit Phys .................... : MITCHELL CHUN Date of ....... : 1955 Family Phys ................... : TRU WATERMAN Phone .................. : [phone] Age ................................ : 64 Film# .................. .:[id number] Sex ................................. : M Unsigned transcriptions are preliminary reports and do not represent a medical or legal document CT ABD & PELVIS W/ IV ONLY [id number] COMPLETE:11/10/19 15:11 [facility] [place] [address] Reason(s): Trauma/Injury DERREK PHAN MD , 11/11/19 11:48, [facility] Transcribe Initials: CHELLY , Transcribe Date: 11/11/19 00:41, Dictation Date: Copy for: YOHAN HOLT via fax Copy for: MITCHELL Kaiser via fax Copy for: EMERGENCY DEPT via [facility] Copy for: 710 MED REC DISCHARGED Page 2 of 2 Name Value Range Interpretation Code Description Data Raquel rce(s) Supporting Document(s) ID Date Data Source [id number] 11/11/2019 11:47:00 AM EDT [facility] [address] [place] [address] PHONE: [phone] FAX: [phone] Name .................. : DIMA Garcia Acct Number.................. : [id number] ROOM. ................. : TR-08 MR Number ................... : [id number] Stay type ............. : E/R Discharge Date......... ... : 11/10/19 Admit Date ......... : 11/10/19 Admit Phys .................... : MITCHELL CHUN Date of ....... : 1955 Family Phys ................... : [employer] Phone .................. : [phone] Age ................................ : 64 Film# .................. .:[id number] Sex ................................. : M Unsigned transcriptions are preliminary reports and do not represent a medical or legal document CT HEAD W/O CONTRAST [id number] COMPLETE:11/10/19 15:11 [facility] [place] [address] Reason (s): Syncope CT SCAN OF THE [...] this dictation. Electronically Reviewed and Signed By DREREK PHAN MD , 11/11/19 11:47, [facility] Page 1 of [address] [place] [address] PHONE: [phone] FAX: [phone] Name .................. : DIMA Garcia Acct Number.................. : [id number] ROOM. ................. : TR-08 MR Number ................... : [id number] Stay type ............. : E/R Discharge Date......... ... : 11/10/19 Admit Date ......... : 11/10/19 Admit Phys .................... : MITCHELL GEO Date of ....... : 1955 Family Phys ................... : TRU ANDINOTarik Phone .................. : [phone] Age ................................ : 64 Film# .................. .:[id number] Sex ................................. : M Unsigned transcriptions are preliminary reports and do not represent a medical or legal document CT HEAD W/O CONTRAST [id number] COMPLETE:11/10/19 15:11 [facility] [place] [address] Reason(s): Syncope Transcribe Initials: DZ , Transcribe Date: 11/11/19 05:24, Dictation Date: Copy for: YOHAN HOLT via fax Copy for: MITCHELL EDUIN Kaiser via fax Copy for: EMERGENCY DEPT via [employer] Copy for: 710 MED REC DISCHARGED Page 2 of 2 Name Value Range Interpretation Code Description Data Raquel rce(s) Supporting Document(s) ID Date Data Source [id number] 11/11/2019 11:44:00 [place] [address] PHONE: [phone] FAX: [phone] Name .................. : DIMA Garcia Acct Number.................. : [id number] ROOM. ................. : TR08 MR Number ................... : [id number] Stay type ............. : E/R Discharge Date......... ... : 11/10/19 Admit Date ......... : 11/10/19 Admit Phys .................... : MITCHELL CHUN Date of ....... : 1955 Family Phys ................... : OTT GUEVARA Phone .................. : [phone] Age ................................ : 64 Film# .................. .:[id number] Sex ................................. : M Unsigned transcriptions are preliminary reports and do not represent a medical or legal document CT THORAX W/CONTRAST [id number] COMPLETE:11/10/19 15:11 [facility] [place] [address] Reason(s): L back/flank pain s/p syncope with [...] By DERREK PHAN MD , 11/11/19 11:44, [facility] Transcribe Initia ls: CHELLY , Transcribe Date: 11/11/19 00:39, Dictation Date: Copy for: YOHAN HOLT via fax Copy for: MITCHELL Kaiser via fax Copy for: EM[facility] [place]PT [place] [facility] Copy for: 710 MED REC DISCHARGED Page 1 of 1 Name Value Range Interpretation Code Description Data Raquel rce(s) Supporting Document(s) ID Date Data Source [id number] 11/11/2019 11:44:00 AM EDT [facility] [address] [place] [address] PHONE: [phone] FAX: [phone] Name .................. : DIMA Garcia Acct Number.................. : [id number] ROOM. ................. : TR-08 MR Number ................... : [id number] Stay type ............. : E/R Discharge Date......... ... : 11/10/19 Admit Date ......... : 11/10/19 Admit Phys .................... : MITCHELL CHUN Date of ....... : 1955 Family Phys ................... : TRU WATERMAN Phone .................. : [phone] Age ................................ : 64 Film# .................. .:[id number] Sex ................................. : M Unsigned transcriptions are preliminary reports and do not represent a medical or legal document CT CERV SPINE W/O CONTRAS [id number] COMPLETE:11/10/19 15:11 [facility] [place] [address] Reason(s): syncope CT SCAN OF THE CERVICAL [...] By DERREK PHAN MD , 11/11/19 11:44, [facility] Transcribe Initials: DZ , Transcribe Date: 11/11/19 00:31, Dictation Date: Copy for: YOHAN HOLT via fax Copy for: MITCHELL Kaiser via fax Copy for: EMERGENCY DEPT via [employer] Copy for: 710 MED REC DISCHARGED Page 1 of 1 Name Value Range Interpretation Code Description Data Raquel rce(s) Supporting Document(s) ID Date Data Source [id number] 11/11/2019 12:29:00 PM EDT [facility] Name Value Range Interpretation Code Description Data Raquel rce(s) Supporting Document(s) Digoxin [Mass/volume] in Serum or Plasma 0.5 ng/mL 0.8-2.0 Below low normal [facility] ID Date Data Source [id number] 11/11/2019 10:52:00 AM EDT [facility] [address] [place] [id number] [phone] NAME SEX PT STATUS ACCOUNT NUMBER DONNY FAITH ADM IN [id number] ORDERING PHYSICIAN LOCATION MEDICAL RECORD NO. Enriquez [facility] [id number] ATTENDING PHYSICIAN DATE OF DATE OF EXAM/TIME [...] rce(s) Supporting Document(s) ID Date Data Source [id number] 11/11/2019 10:36:00 AM EDT [facility] [address] [place] [id number] [phone] NAME SEX PT STATUS ACCOUNT NUMBER DONNY FAITH ADM IN [id number] ORDERING PHYSICIAN LOCATION MEDICAL RECORD NO. Enriquez [facility] [id number] ATTENDING PHYSICIAN DATE OF DATE OF EXAM/TIME [...] Code Description Data Rauqel rce(s) Supporting Document(s) ID Date Data Source [id number] 11/11/2019 10:12:00 AM EDT [facility] [address] [place] [id number] [phone] NAME SEX PT STATUS ACCOUNT NUMBER DONNY FAITH ADM IN [id number] ORDERING PHYSICIAN LOCATION MEDICAL RECORD NO. Mina Deng [id number] ATTENDING PHYSICIAN DATE OF DATE OF EXAM/TIME [...] rce(s) Supporting Document(s) ID Date Data Source [id number] 11/11/2019 09:49:00 AM EDT [facility] Pharmacy Department DONNY FAITH : 1955 Date: 11/11/19 [id number] Pharmacy Safety Note - Review Chart Review: [...] ml NEB RTBID (1100, 1500) [facility] Arformoterol Tartrate (Brovana 15 Mcg/Amp) 15 mcg NEB RTBID (0700,1900) [facility] Last Admin: 11/11/19 07:07 Dose: 15 mcg Documented by: Aspirin (Ecotrin) 81 mg PO DAILY [facility] Atorvastatin Calcium (Atorvastatin Calcium) 20 mg PO HS [facility] Budesonide (Pulmicort 0.5mg) 0.5 mg NEB RTBID (0700,1900) [facility] Last Admin: 11/11/19 07:07 Dose: 0.5 mg Documented by: Cetirizine HCl (Zyrtec) 5 mg PO DAILY [facility] Digoxin (Lanoxin) 0.125 mg PO 0800 [facility] Diltiazem HCl (Cardizem) 240 mg PO DAILY [facility] Fluoxetine HCl (Prozac) 10 mg PO DAILY [facility] Gabapentin (Neurontin) 300 mg PO Q8HR [facility] Glimepiride (Amaryl) 4 mg PO BID@0800,1999 [facility] Last Admin: 11/11/19 07:18 Dose: 4 mg Documented by: Insulin Glargine (Lantus) 20 units SQ HS [facility] Insulin Human Lispro (Humalog) 0 units SQ AC HS/SLIDING SCALE [facility] Last Admin: 11/11/19 07:20 Dose: 6 units Documented by: Levetiracetam (Keppra) 500 mg PO BID [facility] Lisinopril (Zestril) 2.5 mg PO DAILY [facility] Morphine Sulfate (Morphine Sulfate) 2 mg IVP Q4H PRN PRN Reason: PAIN, SEVERE (SCORE 7-10/10) Stop: 11/17/19 18:41 Last Admin: 11/11/19 05:15 Dose: 2 mg Documented by: Oxycodone/Acetaminophen (Percocet 5/325) 1 tab PO Q6H PRN PRN Reason: PAIN, MODERATE (SCORE 4-6/10) Stop: 11/17/19 18:41 Last Admin: 11/11/19 01:54 Dose: 1 tab Documented by: Pantoprazole Sodium (Protonix) 40 mg PO DAILY@0700 [facility] Last Admin: 11/11/19 07:19 Dose: 40 mg Documented by: Topiramate (Topamax) 50 mg PO BID [facility] Trazodone HCl (Desyrel) 100 mg PO HS [facility] Last Admin: 11/10/19 22:43 Dose: 100 mg [...] rce(s) Supporting Document(s) ID Date Data Source [id number] 11/11/2019 09:28:00 AM EDT [facility] Therapy Department DONNY FAITH : 1955 Date: 11/12/19 [id number] Attending: Jaylon Baird MD Physical Therapy Inpatient [...] at home due to this. Spoke to case management social worker in regards to patient's living conditions. [...] rce(s) Supporting Document(s) ID Date Data Source [id number] 11/11/2019 07:22:00 AM EDT [facility] Name: Donny Faith : 1955 Age: 64 MR#: [id number] Admit Date: 11/10/19 Provider: Jaylon Baird MD [...] Admit to Inpatient, Acute [STATUS] Routine Location: [facility] Primary diagnosis: B Rib Fracture, Syncope [...] 11/10/19 22:05: Creatine Kinase 93 11/10/19 22:05: Alo-Y-Eaamxjzzqhb Pept 23.00 11/10/19 22:05: Troponin I Less than 0.015 11/11/19 06:29: WBC 9.5, RBC 4.74, Hgb 14.8, Hct 42.3, MCV 89.2, MCH 31.2 H, MCHC 35.0, RDW 14, Plt Count 237, MPV 9.2, Immature Gran % (Auto) 0.2, Neut % (Auto) 62.7, Lymph % (Auto) 25.8, [place] % (Auto) 7.7, Eos % (Auto) 2.9, [...] Type 2 diabetes mellitus 11. History of [place] Plan: Await repeat chest x-ray and if [...] rce(s) Supporting Document(s) ID Date Data Source [id number] 11/11/2019 06:39:00 AM EDT [facility] Name Value Range Interpretation Code Description Data Raquel rce(s) Supporting Document(s) Leukocytes [#/volume] in Blood by Automated count 9.5 10*3/uL 4.45-10 .71 N [facility] Erythrocytes [#/volume] in Blood by Automated count 4.74 10*6/uL 4.3- 6.1 N [facility] Hemoglobin [Moles/volume] in Blood 14.8 g/dL 13-18 N [facility] Hematocrit [Volume Fraction] of Blood by Automated count 42.3 % 4 2-52 N [facility] Erythrocyte mean corpuscular volume [Ent itic volume] in Cord blood by Automated count 89.2 fL 80-96 N [facility] ital Erythrocyte mean corpuscular hemoglobin [Entitic mass] by Automated count 31.2 pg 27-31 Above high normal [facility] spital Erythrocyte mean corpuscular hemoglobin concentration [Mass/volume] in Cord blood 35.0 g/dL 33-37 N [facility] ital Erythrocyte distribution width [Entitic volume] by Automated count 14 % 11-15 N [facility] Platelets [#/volume] in Blood by Automated count 237 10*3/uL 130-472 N [facility] Platelet mean volume [Entitic volume] in Blood 9.2 fL 9.1-13.1 N [facility] Neutrophils/100 leukocytes in Blood by Automated count 62.7 % 41- 77 N [facility] Neutrophils [#/volume] in Blood by Automated count 5.9 U 1.7-7.6 N [facility] Lymphocytes/100 leukocytes in Blood by Automated count 25.8 % 14- 46 N [facility] Lymphocytes [#/volume] in Blood by Automated count 2.4 U 0.6-4.6 N [facility] Monocytes/100 leukocytes in Blood by Automated count 7.7 % 4-12 N [facility] Monocytes [#/volume] in Blood by Automated count 0.7 U 0.2-1.2 N [facility] Eosinophils/100 leukocytes in Blood by Automated count 2.9 % 0-7 N [facility] Eosinophils [#/volume] in Blood by Automated count 0.3 U 0.0-0.5 N [facility] Basophils/100 leukocytes in Blood by Automated count 0.7 % 0.4-1 .3 N [facility] Basophils [#/volume] in Blood by Automated count 0.1 U 0.0-0.2 N [facility] NUCLEATED RED BLOOD CELL 0 % [facility] NUCLEATED RED BLOOD CELL# 0 U [facility] Immature granulocytes [Presence] in Blood by Automated count 0-2 N [facility] Immature granulocytes [#/volume] in Blood by Automated count 0.0 U 0-0.1 N [facility] Manual Differential panel - Blood NO [facility] ID Date Data Source [id number] 11/11/2019 06:58:00 AM EDT [facility] Name Value Range Interpretation Code Description Data Raquel rce(s) Supporting Document(s) Urea nitrogen [Mass/volume] in Serum or Plasma 17 mg/dL 9-23 [facility] Sodium [Moles/volume] in Serum or Plasma 136 mmol/L 132-146 [facility] Potassium [Moles/volume] in Serum or Plasma 3.8 mmol/L 3.5-5.5 [facility] Chloride [Moles/volume] in Serum or Plasma 104 mmol/L 99-109 [facility] Carbon dioxide, total [Moles/volume] in Serum or Plasma 27 mmol/L 20 -31 [facility] Anion gap in Serum or Plasma 9 mmol/L 8-16 [facility] Glucose [Mass/volume] in Serum or Plasma 259 mg/dL 74-106 Above high normal [facility] Creatinine 0.7 mg/dL 0.5-1.1 [facility] Glomerular filtration rate/1.73 sq M.pre dicted [Volume Rate/Area] in Serum or Plasma Greater Than 60 ABOVE 60 [facility] Alanine aminotransferase [Enzymatic acti vity/volume] in Serum or Plasma by With P-5'-P 21 U/L 10-49 [facility] ital Aspartate aminotransferase [Enzymatic ac tivity/volume] in Serum or Plasma by With P-5'-P 12 U/L 0-33 N [facility] pital Alkaline phosphatase [Enzymatic activity/volume] in Serum or Plasma 99 U/L 45-129 [facility] Calcium [Mass/volume] in Serum or Plasma 9.4 mg/dL 8.5-10.1 [facility] Bilirubin.total [Mass/volume] in Serum or Plasma 0.4 mg/dL 0.3-1.2 [facility] Albumin [Mass/volume] in Serum or Plasma by Bromocresol purple (BCP) dye binding method 3.7 g/dL 3.2-4.8 [facility] ital Protein [Mass/volume] in Serum or Plasma 7.8 g/dL 5.7-8.2 [facility] ID Date Data Source [id number] 11/10/2019 11:10:00 PM EDT [facility] [address] [place] [address] [phone] NAME SEX PT STATUS ACCOUNT NUMBER Donny Faith ADM IN [id number] ORDERING PHYSICIAN LOCATION MEDICAL RECORD NO. Mina Deng [id number] ATTENDING PHYSICIAN DATE OF DATE OF EXAM/TIME [...] Lassiter MD; No Family PHYS Provided Techn: YAULU Trans Dt/Tm: Trans by: DT Prt Dt/Tm: [phone]: Total DLP = 0.00 mGy-cm Fluoroscopy Time (in secs): Name Value Range Interpretation Code Description Data Raquel rce(s) Supporting Document(s) ID Date Data Source [id number] 11/10/2019 10:48:00 AM EDT [facility] 1 OrderSheet [facility] Emergency Department [address] [place] [address] Phone #: ext- [phone] 11/10/2019 10:47 [id number] Sex[facility] M : 1955 Age: 64yWEIGHT:73.5 kg (M) HEIGHT:68 inches (S) BMI:24.6ALLERGIES: Acetaminophen, Benadryl, Copan, Motrin, Paxil, Penicillins, ThorazineCHIEF COMPLAINT: fall, walking, passed out, backDIAGNOSIS: Syncope, Fracture of ribLAB ORDERSOrder Description Priority Entered Acknowledged InitialedCBC w Diff STAT 11:11/10/2019 11:23 [facility] passenger booking clerk, Rk ER P.A.-C; Tcnb9WOS STAT 11:11/10/2019 11:23 [facility] passenger booking clerk, Rk ER P.A.-C; Jfdg7Cuaoyl STAT 11:11/10/2019 11:23 [facility] passenger booking clerk, Rk ER P.A.-C; Glai5RF/PTT STAT 11:11/10/2019 11:23 [facility] passenger booking [facility], Rk ER P.A.-C; Ceyc8Qwkfnrbu-M STAT 11:11/10/2019 11:23 [facility] passenger booking clerk, Rk ER P.A.-C; Zxnc2Zeebghasi STAT 11:11/10/2019 11:23 [facility] passenger booking clerk, Rk ER P.A.-C; Zsag7IVO STAT 11:11/10/2019 11:23 [facility] passenger booking clerk, Rk ER P.A.-C; Sczo0Mkesyyylls (Clean STAT 11:11/10/2019 15:26 PeterCatch) Santos Dixon RN P.A.-C;DIAGNOSTIC STUDY ORDERSOrder Description Priority Entered Acknowledged InitialedCT Chest W/ Cont STAT 12:52 11/10/2019 13:23 Lloyd(Oxygen?(No)) Santos Dixon RN(IV?(Yes)) P.A.-C; Reason for Study: L back/flank pain s/p syncope with echymosis 2 OrderSheet [facility] Department [address] [place] [address] Phone #: ext- [phone] 11/10/2019 10:47 Patient: DONNY FAITH Sex: M [...] IVP 4 mg 11:47 11/10/2019 11:53 Santos Moreno.N. P.A.-C;Morphine IVP 2 mg 16:30 11/10/2019 16:36 Lloyd(HIGH ALERT Santos Dixon RNMEDICATION) P.A.-C;GENERAL ORDERSOrder Description Priority Entered Acknowledged InitialedBlood Pressure 11:19 11/10/2019 11:19 BurnjeffreyMonitor Santos Alejandra passenger booking clerkRk P.A.-C; Xuyl4Hjtgtit Monitor 11:19 11/10/2019 11:19 Rangel(continuous) Santos Alejandra passenger booking clerk, Rk IZAGUIRRE P.A.-C; Lleu2VOO 11:19 11/10/2019 11:19 Nada Santos Alejandra passenger booking clerk, Rk ER P.A.-C; Olzw2DKH 11:19 11/10/2019 11:19 Nada Santos Alejandra passenger booking clerk, Rk IZAGUIRRE P.A.-C; Tech1 3 OrderSheet [facility] [address] [place] [address] Phone #: ext- [phone] 11/10/2019 10:47 Patient: DONNY FAITH Sex: M : 1955 Age: 64yObtain Old EKG 11:19 11/10/2019 11:23 Nada Santos Alejandra passenger booking clerk, Rk IZAGUIRRE P.A.-C; Ctli9Xdhpdc Old Records 11:19 11/10/2019 11:23 Nada Santos Alejandra passenger booking clerk, Rk IZAGUIRRE P.A.-C; Qezl5Mgrrni titrate to 11:19 11/10/2019 11:19 Kfzlcnb98% Santos Alejandra passenger booking clerk, Rk IZAGUIRRE P.A.-C; Mdrf2Gcvwd oximeter 11:19 11/10/2019 11:19 Nada(Continuous) Paularin Alejandra passenger booking clerk, Rk IZAGUIRRE P.A.-C; Zgfs3Dmnrci Lock 11:19 11/10/2019 11:23 Lloyd Dixon RN P.A.-C;Vitals 11:19 11/10/2019 11:19 Nada Santos Alejandra passenger booking clerk, Rk IZAGUIRRE P.A.-C; Siyw7Rzuvus (2 L/min) 11:19 11/10/2019 11:19 Nada(NC) (Titrate to O2 [facility], Rk ERSat >92%) P.A.-C; Tech1[Electronically signed by Lloyd Dixon RN (17:03 11/10/2019)][Electronically signed by Santos Alejandra P.A.-C (22:54 )][Electronically locked by Lloyd Dixon RN (17:03 11/10/2019)] Name Value Range Interpretation Code Description Data Raquel rce(s) Supporting Document(s) ID Date Data Source [id number] 11/10/2019 10:48:00 AM EDT [facility] 1 Medication Reconciliation Report [facility] Department [address] [place] [address] Phone #: ext- [phone] 11/10/2019 10:47 Patient: DONNY FAITH Sex: M : 1955 Age: 64yWeight: 73.5 kgHeight/Length: 68 in.BMI: 24.6ALLERGIES: Acetaminophen, Benadryl, Copan, Motrin, Paxil, Penicillins, ThorazineThe patient's Home Medications are listed below:THE FOLLOWING MEDICATIONS NEED TO BE RECONCILED: Advair Diskus Inhalation (500-50 mcg/dose) 1 inhalation, 2x a day Advocate Insulin Pen [place] Aspir-81 Oral (81 mg) 1 tablet, daily Basaglar 20 unita, at bedtime [facility] Claritin Oral (5 mg) 1 tablet, daily, [...] 2x a day 2 Medication Reconciliation Report [facility] [address] [place] [address] Phone #: ext- [phone] 11/10/2019 10:47 Patient: [...] rce(s) Supporting Document(s) ID Date Data Source [id number] 11/10/2019 10:48:00 AM EDT [facility] 1 Medication Administration Record [facility] [address] [place] [address] Phone #: ext- [phone] 11/10/2019 10:47 Patient: DONNY FAITH Sex: M : 1955 Age: 64yWeight: 73.5 kgHeight/Length: 68 inBMI: 24.6ALLERGIES: Acetaminophen, Benadryl, Copan, Motrin, Paxil, Penicillins, Thorazine Date/Time Medication Administered [...] mg11:52 11/10/2019 Dose: 4 mg IVPPJob hobbs RPadmaNPadma Site: #1 left ACGiven MORPHINE [IVP] Morphine IVP 2 mg (HIGH ALERT16:36 11/10/2019 Dose: 2 mg IVP MEDICATION)Lloyd Dixon RN Site: #1 left AC Name Value Range Interpretation Code Description Data Raquel rce(s) Supporting Document(s) ID Date Data Source [id number] 11/10/2019 10:48:00 AM EDT [facility] 1 General Instructions [facility] [address] [place] [address] Phone #: ext- [phone] 11/10/2019 10:47 Patient: [...] awake. Breathe out through 2 General Instructions [facility] [address] [place] [address] Phone #: ext- [phone] 11/10/2019 10:47 Patient: [...] of pain and swelling. You may use ugwp-twr-zgdlcvj pain medicine to control pain, unless another [...] any of these occur: 3 General Instructions [facility] [address] [place] [address] Phone #: ext- [phone] 11/10/2019 10:47 Patient: DONNY FAITH Sex: M : 1955 Age: 64y Increasing chest pain with breathing Fever of 100.4F (38C) or above, or as directed by your healthcare provider Congested cough, nausea, or vomiting [phone] [employer]. [address] [place] [address]. All rights reserved. This information is not [...] find out if you 4 General Instructions [facility] [address] [place] [address] Phone #: ext- [phone] 11/10/2019 10:47 Patient: [...] with your healthcare provider, or as advised.Call [phone] [phone] if any of these occur: Another fainting [...] seeing Extreme drowsiness, confusion, dizziness, or fainting [phone] [employer] [place] [address]. All rights reserved. 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 Always follow your healthcare professional's instructions. You have been given the following additional information: Rib Fracture Syncope, Unk Cause(Electronically signed by Santos Alejandra P.A.-C 11/10/2019 22:54) Name Value Range Interpretation Code Description Data Raquel rce(s) Supporting Document(s) ID Date Data Source [id number] 11/10/2019 10:48:00 AM EDT [facility] 1 Clinical Report - Nurses [facility] [address] [place] [address] Phone #: ext- [phone] 11/10/2019 10:47 Patient: DONNY FAITH Sex: M : 1955 Age: 64yTRIAGEHistorian: patient.Triage time: 10:49 11/10/2019. Acuity: LEVEL 4.Chief Complaint: FALL. Passed out while walking. Landed on back.(2 days ago "blacked out" unwitnessed, patient states lasted 3 minutes landed on left side on C2uespwoiaepgg).10:49 11/10/19. Alert. No acute distress.( Today "reached for cup, felt a sharp pain left flank").Treatment KNOTTER HAND:None.EMS Treatment KNOTTER HAND:Received prehospital notification of patient arrival. EMS report reviewed. See report.SEPSIS SCREEN: SIRS Screen negative. Sepsis Screen negative. No suspected or confirmed signs ofinfection present. --10:59 11/10/19 Tatianna Jasso RN10:49 11/10/19. BP: 141/92. MAP: 108. HR: 90. RR: 15. O2 saturation: 96%. Temp: 97.6 F. Pain levelnow: 1010. Describes the quality as sharp. It has been constant. --10:59 11/10/19 Tatianna Jasso RN.Weight: 51.2 kg stated. Height/Length: 68 inches Per Patient. BMI: 17.2. --10:48 11/10/19 SHAKIRA Dao.Weight: 73.5 kg measured. BMI: 24.6. --13:52 11/10/19 Lloyd Dixon RN.MedicationsAdvair Diskus Inhalation (Aerosol Powder Breath Activated 500-50 mcg/dose) 1 inhalation, 2x a day. Advocate Insulin Pen [place]. Aspir-81 Oral (Tablet Delayed Release 81 mg) 1 tablet, daily. Basaglar 20 unita, at bedtime. [facility]. Claritin Oral (Tablet Chewable 5 mg) 1 [...] Jasso RN 2 Clinical Report - Nurses [facility] [address] [place] [address] Ph one #: ext- [phone] 11/10/2019 10:47 Patient: DONNY FAITH Sex: M [...] on day 3. --11:02 11/10/19 Tatianna Jasso RN.AllergiesAcetaminophen.Benadryl.Copan.Motrin.Paxil.Penicillins.Thorazine. --10:54 11/10/19 Tatianna Jasso RN.Abmaeii71:49 11/10/19.PAST MEDICAL HX: Tetanus status: up-to-date. Immunizations: [...] no barriers. 3 Clinical Report - Nurses [facility] [address] [place] [address] Phone #: ext- [phone] 11/10/2019 10:47 Patient: [...] risk identified. --10:59 11/10/19 Tatianna Jasso RN.PHYSICAL KPKTAPKOYJ03:55 11/10/19. To room via stretcher.GENERAL / NEURO [...] and post-medication 4 Clinical Report - Nurses [facility] [address] [place] [address] Phone #: ext- [phone] 11/10/2019 10:47 Patient: DONNY FAITH Sex: M : 1955 Age: 64y administration. Information reviewed with patient including reason for taking this medication. Verbalizes understanding. --11:28 11/10/19 Lloyd Dixon RN EKG time: (late entry - 11:26 11/10/2019). EKG was performed by a tech and shown to the PA. --11:31 11/10/19 Marty Richardson ER Glaze Carrier 11:52 11/10/2019 Zofran (Ondansetron HCl) IVP 4 [...] RN ( pt to be transported to [facility]). --16:11/10/19 Lloyd Dixon RN 16:36 11/10/2019 Morphine [...] and transfer facility via paper and fax ([facility]). Transported via ambulance by EMS with monitor [...] Dixon RN 5 Clinical Report - Nurses [facility] [address] [place] [address] Phone #: ext- [phone] 11/10/2019 10:47 Patient: [...] rce(s) Supporting Document(s) ID Date Data Source [id number] 11/10/2019 10:48:00 AM EDT [facility] 1 Clinical Report - Physicians/Mid Levels [facility] [address] [place] [address] Phone #: ext- [phone] 11/10/2019 10:47 Patient: [...] Pain. Parkinson's Disease. Seizure. Sprain. Sleep Apnea. RI. 2 Clinical Report - Physicians/Mid Levels [facility] [address] [place] [address] Phone #: ext- [phone] 11/10/2019 10:47 -------- [...] 1 inhalation, 2x a day.Advocate Insulin Pen [place].Aspir-81 Oral (Tablet Delayed Release 81 mg) 1 tablet, daily.Basaglar 20 unita, at bedtime.[facility].Claritin Oral (Tablet Chewable 5 mg) 1 tablet, [...] (Tablet 4 mg) 1-1/2 tablets, 2x a day.Allergies:Acetaminophen.Benadryl.Copan.Motrin.Paxil. 3 Clinical Report - Physicians/Mid Levels [facility] [address] [place] [address] Phone #: ext- [phone] 11/10/2019 10:47 Patient: [...] ECG. 4 Clinical Report - Physicians/Mid Levels [facility] [address] [place] [address] Phone #: ext- [phone] 11/10/2019 10:47 Patient: DONNY FAITH Sex: M : 1955 Age: 64ydiscussed and reviewed wiht/by attending.Review previous: .CT C-Spine: (Emilie desir Michael - 11/10/2019 2:50:20 PMDJD No Fx). The study was interpreted by the radiologist.CT Head: (teresitageraldine Shanice Zeus - 11/10/2019 2:46:53 PMnad, bilat maxillary retention [...] 5.0) 5 Clinical Report - Physicians/Mid Levels [facility] [address] [place] [address] Phone #: ext- [phone] 11/10/2019 10:47 Patient: [...] Male GFR Interprentation 20-49 yrs >60 mL/min Kirvnb86-01 yrs >56 mL/min Normal 60-69 yrs >49 mL/min Normal 70-79yrs>42 mL/min Normal 80 and above >35 mL/min Normal Female GFRInterpretation 20-39 yrs >60 mL/min Normal 40-49 yrs >58 mL/minNormal 50-59 yrs >51 mL/min Normal 60-69 yrs >45 mL/min Bhgryx12-41 yrs >39 mL/min Normal 80 and above [...] VenousThrombosis, Pulmonary Embolus, Tissue heart valves, Acute RI Atrial Fibrillation, Valvular heart diseaseand recurrent Systemic Embolism. -International Normalized Ratio (INR): 2.5 - 3.5 forMechanical Prosthetic valve.Troponin-T: (ROSARIO: 11/10/2019 11:53) ( [facility] 11/10/2019 13:10) Final results Test Result Flag Units (Reference) TROPONIN T <0.01 NG/ML (0.00 - 0.10) TROPONIN T0.1 ng/ml Recommended as the clinical threshold value forTroponin T.Magnesium: (ROSARIO: 11/10/2019 11:53) ( [facility] 11/10/2019 12:24) Final results Test Result Flag Units (Reference) MAGNESIUM 1.8 MG/DL (1.7 - 2.2)BNP: (ROSARIO: 11/10/2019 11:53) ( [facility] 11/10/2019 12:24) Final results Test Result Flag Units (Reference) BNP 23 PG/ML (0 - 125) 6 Clinical Report - Physicians/Mid Levels [facility] [address] [place] [address] Phone #: ext- [phone] 11/10/2019 10:47 Patient: DONNY FAIHT Sex: M : 1955 Age: 64y Urinalysis: (ROSARIO: 11/10/2019 12:40) ( [facility] 11/10/2019 14:08) Final results Test Result [...] change of new 1st degree AV block. MS today: 214. MS on 52Cvg46: 200 Pending results. Reviewed results. Pt has hx of chronci sycopial episodes. b/l lower rib fxs. Pt lives alone. Pt is a elevated fall risk. Currently no beds [facility]. Contacted [facility] and discussed with Dr. Sanchez and he [...] alternatives to transfer explained to patient. Transferred. [facility]. UTI (catheter associated) was not present prior to transfer. Pressure ulcer was not present prior to transfer. 7 Clinical Report - Physicians/Mid Levels [facility] [address] [place] [address] Phone #: ext- [phone] 11/10/2019 10:47 [id number] Sex: M : 1955 Age: 64y Vascular infection (catheter associated) was not present prior to transfer.CLINICAL IMPRESSION Common syncope. Multiple right and left rib fractures.(Electronically signed by Santos Alejandra P.A.-C 11/10/2019 22:54) Name Value Range Interpretation Code Description Data Raquel rce(s) Supporting Document(s) ID Date Data Source [id number] 11/10/2019 10:57:00 PM [facility] Name Value Range Interpretation Code Description Data Raquel rce(s) Supporting Document(s) Creatine kinase [Enzymatic activity/volume] in Serum or Plasma 93 U /L 33-211 [facility] ID Date Data Source [id number] 11/10/2019 10:50:00 PM [facility] Value Range Interpretation Code Description Data Raquel rce(s) Supporting Document(s) Natriuretic peptide.B prohormone N-Terminal [Mass/volu me] in Serum or Plasma 23.00 pg/mL 0.00-175 Health system ID Date Data Source [id number] 11/10/2019 10:44:00 PM [facility] Value Range Interpretation Code Description Data Raquel rce(s) Supporting Document(s) Troponin I.cardiac [Mass/volume] in Serum or Plasma Less Than 0.015 0.00-0.09 [facility] Less than 0.09 NG/ML Negative0.10 - 0.77 NG/ML High Risk0.78 NG/ML or Greater PositiveThe WHO defined the cutoff (definition for diagnosis of RI)for this method as 0.78 ng/ml. ID Date Data Source [id number] 11/10/2019 10:36:00 PM [facility] Value Range Interpretation Code Description Data Raquel rce(s) Supporting Document(s) Urea nitrogen [Mass/volume] in Serum or Plasma 16 mg/dL 9-23 [facility] Sodium [Moles/volume] in Serum or Plasma 138 mmol/L 132-146 [facility] Potassium [Moles/volume] in Serum or Plasma 3.9 mmol/L 3.5-5.5 [facility] Chloride [Moles/volume] in Serum or Plasma 106 mmol/L 99-109 [facility] Carbon dioxide, total [Moles/volume] in Serum or Plasma 24 mmol/L 20 -31 [facility] Anion gap in Serum or Plasma 12 mmol/L 8-16 [facility] Glucose [Mass/volume] in Serum or Plasma 237 mg/dL 74-106 Above high normal [facility] Creatinine 0.9 mg/dL 0.5-1.1 [facility] Glomerular filtration rate/1.73 sq M.pre dicted [Volume Rate/Area] in Serum or Plasma Greater Than 60 ABOVE 60 [facility] Calcium [Mass/volume] in Serum or Plasma 9.1 mg/dL 8.5-10.1 [facility] ID Date Data Source [id number] 11/10/2019 09:51:00 PM EDT [facility] Name: DONNY FAITH : 1955 Age: 64 MR#: [id number] Admit Date: 11/10/19 Provider: Mina Deng Room [...] weakness at baseline, seizures, is transferred to [facility] from [facility] after he had fall injury. The [...] frequency or urgency. The ER provider in [facility] ordered CT scan of the head, [...] DM type 2 history of bleeding ulcer RI Surgical History: Appendectomy 2017 Cholecystectomy 2018 Social History: Smokes 2 packs of cigarettes daily, drinks alcohol occasionally, smokes [employer] on regular bases. Family History: Father: killed at age 4747 year old, history of RI and CAD. Mother at age 83, history [...] details of HPI) Sleep apnea history of RI Plan: I discussed the patient's case with thoracic specialist in [facility], who recommends chest xray tonight, then [...] body habitus Orientation: alert and oriented x3 [facility] Head: normal to inspection Eyes Pupils: PERRL [...] Baird MD 11/11/19917 D: ALBIB 11/10/192150 T: ALBBERTHA 11/10/192150 CC: Name Value Range Interpretation Code Description Data Raquel rce(s) Supporting Document(s) ID Date Data Source [id number] 11/10/2019 07:41:00 [place] [address] PHONE: [phone] FAX: [phone] Name ..............: DIMA DONNY A Acct Number ...........................: [id number] ROOM. ............: TR-08 Number ............................: [id number] Stay type.........: E/R Discharge Date...............:11/10/19 Admit Date .....: 11/10/19 Admit Phys .............................: MITCHELL CHUN Date of ..: 1955 Family Phys ...........................: TRU WATERMAN Phone..............: [phone] Age.................................:64 Film# ...............:[id number] Sex.................................:M Unsigned transcriptions are preliminary reports and do not represent a medical or legal document EKG [id number] COMPLETE:11/10/19 13:29 [facility] [id number] Please See Scanned Results. Name Value Range Interpretation Code Description Data Raquel rce(s) Supporting Document(s) ID Date Data Source [id number] 11/10/2019 07:42:00 PM EDT [facility] Name Value Range Interpretation Code Description Data Raquel rce(s) Supporting Document(s) Phenytoin [Mass/volume] in Serum or Plasma 1.4 ug/mL 10-20 Belo w low normal [facility] ID Date Data Source [id number] [facility] Range Interpretation Code Description Data Raquel rce(s) Supporting Document(s) URINALYSIS [facility]ero URINALYSIS SOURCE R [facility] COLOR yellow NORMAL: Yellow [facility] CLARITY clear NORMAL: Clear [facility] Specific gravity of Urine by Test strip 1.010 1.001 - 1.030 [facility] 7 5 - 9 [facility] Gl[facility] [Mass/volume] in Urine by Test strip 1000 NORMAL: Negat savannah A [facility] Bilirubin.total [Presence] in Urine by Test strip NEG NORMAL: Negative [facility] Ketones [Presence] in Urine by Test strip NEG NORMAL: Negative [facility] Protein [Mass/volume] in Urine by Test strip NEG NORMAL: Negat [place] [facility] Nitrite [Presence] in Urine by Test strip NEG NORMAL: Negative [facility] BLOOD NEG NORMAL: Negative [facility] Leukocyte esterase [Presence] in Urine by Test strip NEG SANDRA L: Negative [facility] Urobilinogen [Mass/volume] in Urine by Test strip NOR less jenniffer n 1.0 mg/dL [facility] MICROSCOPIC Not Indicate [facility] ospital ID Date Data Source [id number] 11/10/2019 01:10:00 PM EDT [facility] Name Value Range Interpretation Code Description Data Raquel rce(s) Supporting Document(s) TROPONIN T <0.01 NG/ML 0.00 - 0.10 [facility] TROPONIN T0.1 ng/ml Recommended as the c linical threshold value forTroponin T. ID Date Data Source [id number] 11/10/2019 12:34:00 PM EDT [facility] Name Value Range Interpretation Code Description Data Raquel rce(s) Supporting Document(s) COMPREHENSIVE METABOLIC PANEL [facility] COMPREHENSIVE METABOLIC PANEL Sodium [Moles/volume] in Serum or Plasma 132 mEq/L 134 - 153 L [facility] Potassium [Moles/volume] in Serum or Plasma 4.2 mEq/L 3.6 - 5.0 [facility] Chloride [Moles/volume] in Serum or Plasma 99 mEq/L 98 - 107 [facility] Carbon dioxide, total [Moles/volume] in Serum or Plasma 23 MEQ/L 22 - 30 [facility] Glucose [Mass/volume] in Serum or Plasma 352 MG/DL 65 - 110 H [facility] BUN 16 MG/DL 7 - [facility] Creat[facility] [Mass/volume] in Serum or Plasma 0.5 MG/DL 0.7 - 1.5 L [facility] BUN/CREAT 32 8 - 27 [facility] Protein [Mass/volume] in Serum or Plasma 7.1 G/DL 6.3 - 8.2 [facility] Albumin [Mass/volume] in Serum or Plasma 4.3 G/DL 3.9 - 5.0 [facility] Globulin [Mass/volume] in Serum by calculation 2.8 GM/DL 2.4 - 3.2 [facility] A/G RATIO 1.5 0.8 - 2.0 [facility] Calcium [Mass/volume] in Serum or Plasma 8.6 MG/DL 8.4 - 10.2 [facility] Bilirubin.total [Mass/volume] in Serum or Plasma <0.7 MG/DL 0.2 - 1.3 [facility] Alkaline phosphatase [Enzymatic activity/volume] in Serum or Plasma 78 U/L 38 - 126 [facility] Aspartate aminotransferase [Enzymatic activity/volume] in Serum or Plasma 11 U/L 5 - 40 [facility] Alanine aminotransferase [Enzymatic activity/volume] in Seru m or Plasma 13 U/L 7 - 56 [facility] Anion gap 3 in Serum or Plasma 10.0 mmol/L 8.0 - 16.0 [facility] AGE 64 yrs [facility] NON-AA GFR >60 mL/min [facility] ital AFR AMER GFR >60 mL/min [facility] Ho spital Male GFR In terprentation 20-49 [...] >32 mL/min Normal ID Date Data Source [id number] 11/10/2019 12:24:00 PM EDT [facility] Name Value Range Interpretation Code Description Data Raquel rce(s) Supporting Document(s) BNP 23 PG/ML 0 - 125 [facility] ID Date Data Source [id number] 11/10/2019 12:24:00 PM EDT [facility] Name Value Range Interpretation Code Description Data Raquel rce(s) Supporting Document(s) Magnesium [Mass/volume] in Serum or Plasma 1.8 MG/DL 1.7 - 2.2 [facility] ID Date Data Source [id number] 11/10/2019 12:24:00 PM EDT [facility] Name Value Range Interpretation Code Description Data Raquel rce(s) Supporting Document(s) Lipase [Enzymatic activity/volume] in Serum or Plasma 21 U/L 13 - 60 [facility] ID Date Data Source [id number] 11/10/2019 12:22:00 PM EDT [facility] Name Value Range Interpretation Code Description Data Raquel rce(s) Supporting Document(s) Prothrombin time (PT) 15.7 SECONDS 11.0 - 15.5 [facility] INR in Platelet poor plasma by Coagulation assay 1.23 0.93 - 1. 23 [facility] aPTT in Blood by Coagulation assay 32.9 SECONDS 24.8 - 36.7 [facility] \\BLDo\\INR INTERPRETATION\\BLDx\\ Therapeutic range for Coumadin and related oral anticoagulants. - International Normalized Ratio (INR): 2.0 - 3.0 for Venous Thrombosis, Pulmonary Embolus, Tissue heart valves, Acute RI Atrial Fibrillation, Valvular heart disease and recurrent Systemic Embolism. - International Normalized Ratio (INR): 2.5 - 3.5 for Mechanical Prosthetic valve. ID Date Data Source [id number] 11/10/2019 12:03:00 PM EDT [facility] Name Value Range Interpretation Code Description Data [facility](s) Supporting Document(s) CBC W/AUTOMATED DIFF [facility] COMPLETE BLOOD COUNT Leukocytes [#/volume] in Blood by Automated count 8.0 10^3/uL 4.2 - 1 1.0 [facility] Erythrocytes [#/volume] in Blood by Automated count 4.54 10^6/uL 4. 50 - 6.30 [facility] Hemoglobin [Mass/volume] in Blood 13.8 g/dL 14.0 - 16.0 L [facility] Hematocrit [Volume Fraction] of Blood by Automated count 39.9 % 4 1.0 - 51.0 L [facility] Erythrocyte mean corpuscular volume [Entitic volume] by Auto mated count 87.9 fL 80.0 - 94.0 [facility] Erythrocyte mean corpuscular hemoglobin [Entitic mass] by Automated count 30.4 pg 27.0 - 34.0 [facility] Erythrocyte mean corpuscular hemoglobin concentration [Mass/volume] by Automated count 34.6 g/dL 31.0 - 36.0 [facility] Erythrocyte distribution width [Ratio] by Automated count 14.5 % 11.5 - 14.8 [facility] Platelets [#/volume] in Blood by Automated count 221 10^3/uL 150 - 45 0 [facility] Platelet mean volume [Entitic volume] in Blood by Automated count 8.9 fL 7.4 - 10.4 [facility] Neutrophils/100 leukocytes in Blood by Automated count 65.4 % 37. 0 - 80.0 [facility] Lymphocytes/100 leukocytes in Blood by Manual count 24.9 % 25.0 - 40.0 L [facility] Monocytes/100 leukocytes in Blood by Automated count 6.9 % 3.0 - 8.0 [facility] Eosinophils/100 leukocytes in Blood by Automated count 1.7 % 0.0 - 7.0 [facility] Basophils/100 leukocytes in Blood by Automated count 0.9 % 0.0 - 2.0 [facility] %IG 0.2 % 0.0 - 0.0 [facility] %NRBC 0.0 % 0.0 - 0.0 [facility] al Neutrophils [#/volume] in Blood by Automated count 5.24 10^3/uL 2.00 - 6.90 [facility] Lymphocytes [#/volume] in Blood by Automated count 2.00 10^3/uL 0.60 - 3.40 [facility] Monocytes [#/volume] in Blood by Automated count 0.55 10^3/uL 0.00 - 0.90 [facility] Eosinophils [#/volume] in Blood by Automated count 0.14 10^3/uL 0.00 - 0.70 [facility] Basophils [#/volume] in Blood by Automated count 0.07 10^3/uL 0.00 - 0.20 [facility] #IG 0.02 10^3/uL 0.00 - 0.10 [facility] H ospital #NRBC 0.00 10^3/uL 0.00 - 0.00 [facility] ospital MANUAL DIFF NOT INDICATED [facility] RBC MORPH NOT INDICATED [facility] spital ID Date Data Source [id number] 05/14/2019 09:46:00 AM EST [facility] 1 OrderSheet [facility] Emergency Department [address] [place] [address] Phone #: ext- [phone] 05/14/2019 09:45 Patient: DONNY FAITH Sex: M : 1955 Age: 64yWEIGHT:73.4 kg (S) HEIGHT:68 inches (S) BMI:24.6ALLERGIES: Acetaminophen, Benadryl, Copan, Motrin, Paxil, Penicillins, ThorazineCHIEF COMPLAINT: weaknessDIAGNOSIS: Diabetes [...] 10:23 Denver Luis RN(Oxygen?(No)) Bubba; 2 OrderSheet [facility] Emergency Department [address] [place] [address] Phone #: ext- [phone] 05/14/2019 09:45 Patient: DONNY FAITH Sex: M [...] DonyyMonitor Denver Arreaga RN, M.D.;EKG 10:05/14/2019 10:34 Kenny ED Denver Arreaga Tiffany ER M.D.; [id number] Old EKG 10:05/14/2019 10:23 Denver Bojorquez RN, M.D.;Obtain Old Records 10:05/14/2019 10:23 Denver Bojorquez RN, M.D.;Saline Lock 10:05/14/2019 10:23 Denver Bojorquez RN, M.D.;Vitals 10:05/14/2019 10:23 Denver Bojorquez RN, M.D.; 3 OrderSheet [facility] Emergency Department [address] [place] [address] Phone #: ext- [phone] 05/14/2019 09:45 Patient: [...] rce(s) Supporting Document(s) ID Date Data Source [id number] 05/14/2019 09:46:00 AM EST [facility] 1 Medication Reconciliation Report [facility] Emergency Department [address] [place] [address] Phone #: ext- [phone] 05/14/2019 09:45 Patient: DONNY FAITH Sex: M : 1955 Age: 64yWeight: 73.4 kgHeight/Length: 68 in.BMI: 24.6ALLERGIES: Acetaminophen, Benadryl, Copan, Motrin, Paxil, Penicillins, ThorazineThe patient's Home Medications are listed below:CONTINUE TAKING THE FOLLOWING MEDICATIONS: Advair Diskus Inhalation (500-50 mcg/dose) 1 inhalation, 2x a day [facility] [place] Aspir-81 Oral (81 mg) 1 tablet, daily Basaglar 20 unita, at bedtime [facility] Claritin Oral (5 mg) 1 tablet, daily, [...] 2x a day 2 Medication Reconciliation Report [facility] Emergency Department [address] [place] [address] Phone #: ext- [phone] 05/14/2019 09:45 Patient: [...] rce(s) Supporting Document(s) ID Date Data Source [id number] 05/14/2019 09:46:00 AM EST [facility] 1 Medication Administration Record [facility] Emergency Department [address] [place] [address] Phone #: ext- [phone] 05/14/2019 09:45 Patient: DONNY FAITH Sex: M : 1955 Age: 64yWeight: 73.4 kgHeight/Length: 68 inBMI: 24.6ALLERGIES: Acetaminophen, Benadryl, Copan, Motrin, Paxil, Penicillins, Thorazine Date/Time Medication Administered Medication OrderedStart normal saline * NS IV 1000 mL Bolus: : Bolus 244954:[id number] 05/14/2019 Dose: 1000 cc bolus * IV [...] Dose: 15 mL Solution/Elixir PO (NOW x1)Quoc Sandoval RNGiven OXYCODONE [PO] - (Oxycodone 5 mg po once)11:52 05/14/2019 Dose: 5 mg Tablets Tanya Sandoval RN Name Value Range Interpretation Code Description Data Raquel rce(s) Supporting Document(s) ID Date Data Source [id number] 05/14/2019 09:46:00 AM EST [facility] 1 General Instructions [facility] Emergency Department [address] [place] [address] Phone #: ext- [phone] 05/14/2019 09:45 [id number] Sex: M : 1955 Age: 64yChronic, poorly [...] 1 inhalation 2x a day.[facility] [place]*.Aspir-81 Oral : Tablet Delayed Release 81 mg, 1 tablet daily.Basaglar* : 20 unita, at bedtime.[facility]* : douds.Claritin Oral : Tablet Chewable 5 mg, 1 [...] : 2x a day. 2 General Instructions [facility] Emergency Department [address] [place] [address] Phone #: ext- [phone] 05/14/2019 09:45 Patient: [...] wsiness or loss of consciousnessIf you have gegc-zunvo-vhxis symptoms, use a blood or urine test to find out what your blood sugarlevel is. If it is above your usual range, use the "sliding scale" regular insulin dose prescribed by your 3 General Instructions [facility] Emergency Department [address] [place] [address] Phone #: ext- [phone] 05/14/2019 09:45 Patient: [...] hospital emergency room or urgent care center [id number] [employer] [place] [address], [place] [address]. All rights reserved. This information is not [...] starchy vegetables o Vegetables 4 General Instructions [facility] Emergency Department [address] [place] [address] Phone #: ext- [phone] 05/14/2019 09:45 Patient: [...] of Nutrition and Dietetics www.eatright.org o [employer] 770-574-8669 www.diabetes.org 6611-[address] [employer] [place] [address]. All rights reserved. This information is not intended as asubstitute for professional medical care. Always follow your healthcare professional's instructions. You have been given the following additional information: Diabetes with High Blood Sugar Diet: Diabetes 5 General Instructions [facility] Emergency Department [address] [place] [address] Phone #: ext- [phone] 05/14/2019 09:45 Patient: DONNY FAITH Sex: M : 1955 Age: 64y(Electronically signed by Dnever Arreaga M.D. 05/14/2019 14:59) Name Value Range Interpretation Code Description Data Raquel rce(s) Supporting Document(s) ID Date Data Source [id number] 05/14/2019 09:46:00 AM EST [facility] 1 Clinical Report - Nurses [facility] Emergency Department [address] [place] [address] Phone #: ext- [phone] 05/14/2019 09:45 Patient: [...] 24.6. --09:58 05/14/19 Latonya Henderson R.N. Medications [facility]. --09:58 05/14/19 Quoc Sandoval RN Advair Diskus Inhalation (Aerosol Powder Breath Activated 500-50 mcg/dose) 1 inhalation, 2x a day. [facility] [place]. Aspir-81 Oral (Tablet Delayed Release 81 mg) [...] a day. 2 Clinical Report - Nurses [facility] Emergency Department [address] [place] [address] Phone #: ext- [phone] 05/14/2019 09:45 Patient: DONNY FAITH Sex: M : 1955 Age: 64yVentolin HFA Inhalation 2 puffs, q8h as needed, sob.Z pack 1 tab day pt on day 3. --05/14/19 Latonya Henderson RPadmaNPadmaThe following entry was struck and corrected by Quoc Sandoval RN, 10:39 (05/14/19) Reason forcorrection - other(correction). [facility]. --05/14/19 Latonya Henderson RPadmaN. .AllergiesAcetaminophen.Benadryl.Copan.Motrin.Paxil.Penicillins.Thorazine. --05/14/19 Latonya Henderson RChiaraPROBLEMS:CVA - Cerebrovascular Accident.COPD - Chronic Obstructive Pulmonary Disease.Diabetes Mellitus.Parkinson's Disease.RI.Heart Disease.Emphysema.Hypercholesterolemia.Lung Disease.Hypertension. --:59 05/14/19 Latonya Henderson RMolly.ADDITIONAL SURGERIES:Appendectomy.Cholecystectomy. --:59 05/14/19 Latonya Henderson R.N.HistorySOCIAL HX: Never smoker. [...] before today?". 3 Clinical Report - Nurses [facility] Emergency Department [address] [place] [address] Phone #: ext- [phone] 05/14/2019 09:45 Patient: [...] No skin integrity risk identified. --10:00 05/14/19 Santiago July RMolly. Interventions To treatment room. --10:00 05/14/19JulyDustinPHYSICAL ASSESSMENT 10:13 05/14/19. To room via stretcher. [...] ready for evaluation- ED physician notified. --10:05/14/19July, RPadmaN. 10:05/14/2019 Site #1 started prior to arrival by EMS via IV in the left antecubital space. --10:05/14/19July RPadmaN. Other. --10:05/14/19July RPadmaNPadma 10:05/14/2019 Site #1 started prior to arrival by EMS via IV in the left antecubital space with an 18g angiocath. --10:02 05/14/19July, RPadmaN. Finger stick glucose: 534 mg/dL. --10:03 05/14/19JulyDustin ( pt given urinal. pt oob on own.). --10:05/14/19JulyKip. Call light placed in reach. --10:14 05/14/19 Quoc Sandoval RN 4 Clinical Report - Nurses [facility] Emergency Department [address] [place] [address] Phone #: ext- [phone] 05/14/2019 09:45 Patient: DONNY FAITH Sex: M : 1955 Age: 64yEKG time: (10:31 05/14/2019). EKG was performed by a tech and shown to the ED physician. --10: Kenny passenger booking clerk, ZINA Del Valle Jugq170:[id number] 05/14/2019 normal saline * IV Fluids 1000 [...] presence ofthe patient and sent to lab. (3120). --10:38 05/14/19 Quoc Sandoval RNChecked patient name [...] saturation: 91%. --11:06 05/14/19 Ivon Mcdowell, ER Fivd848:29 05/14/19. BP: 121/72. MAP: 88. HR: 82. RR: 16. O2 saturation: 92%. --11:30 05/14/19 Ivon Mcdowell, ER [id number] stick glucose: 1130 decreased to 341; performed [...] saturation: 94%. --12:01 05/14/19 Ivon Mcdowell, ER Husb815:31 05/14/19. BP: 120/78. MAP: 92. HR: 93. RR: 16. O2 saturation: 91%. --12:31 05/14/19 Ivon Mcdowell, ER [id number] stick glucose: 1240 accu check 289; performed by nurse; result shown to the ED physician. ( 1240lunch tray offered and taken well). --12:48 05/14/19 Quoc Sandoval RN 5 Clinical Report - Nurses [facility] Emergency Department [address] [place] [address] Phone #: ext- [phone] 05/14/2019 09:45 Patient: DONNY FAITH Sex: M [...] Patient verbalized understanding. Written instructions provided in [place]. The patient was discharged by the physician. [...] rce(s) Supporting Document(s) ID Date Data Source [id number] 05/14/2019 09:46:00 AM EST [facility] 1 Clinical Report - Physicians/Mid Levels [facility] Emergency Department [address] [place] [address] Phone #: ext- [phone] 05/14/2019 09:45 Patient: [...] care: The patient was seen recently at [facility]. ( in last week for [...] Obstructive Pulmonary Disease. Diabetes Mellitus. Parkinson's Disease. RI. Heart Disease. Emphysema. Hypercholesterolemia. Lung Disease. Hypertension. 2 Clinical Report - Physicians/Mid Levels [facility] Emergency Department [address] [place] [address] Phone #: ext- [phone] 05/14/2019 09:45 --- Patient: DONNY FAITH Sex: [...] inhalation, 2x a day. [facility] [place]. Aspir-81 Oral (Tablet Delayed Release 81 mg) 1 tablet, daily. Basaglar 20 unita, at bedtime. [facility]. Claritin Oral (Tablet Chewable 5 mg) 1 tablet, daily at bedtime. Al lergies: Acetaminophen. Benadryl. Copan. Motrin. Paxil. Penicillins. Thorazine.SOCIAL HISTORYFormer smoker. No alcohol use or drug use.ADDITIONAL NOTESThe nursing notes have been reviewed with agreement regarding the chief complaint, HPI, ROS, PMH and 3 Clinical Report - Physicians/Mid Levels [facility] Emergency Department [address] [place] [address] Phone #: ext- [phone] 05/14/2019 09:45 Patient: DONNY FAITH Sex: M [...] 40.0) 4 Clinical Report - Physicians/Mid Levels [facility] Emergency Department [address] [place] [address] Phone #: ext- [phone] 05/14/2019 09:45 Patient: [...] READ BACK CALLED TO DR. ARREAGA BY: [facility] DATE/TIME 05.14.19 @ 1140 BUN [...] Male GFR Interprentation 20-49 yrs >60 mL/min Kffdpl70-60 yrs >56 mL/min Normal 60-69 yrs >49 mL/min Normal 70-79yrs>42 mL/min Normal 80 and above >35 mL/min Normal Female GFRInterpretation 20-39 yrs >60 mL/min Normal 40-49 yrs >58 mL/minNormal 50- 59 yrs >51 mL/min Normal 60-69 yrs >45 mL/min Jmlqdg64-16 yrs >39 mL/min Normal 80 and above [...] VenousThrombosis, Pulmonary Embolus, Tissue heart valves, Acute RI Atrial Fibrillation, Valvular heart disease 5 Clinical Report - Physicians/Mid Levels [facility] Emergency Department [address] [place] [address] Phone #: ext- [phone] 05/14/2019 09:45 Patient: [...] 05/14/2019 11:17) In Progress Exam CHEST PORTABLE [facility] [address] [place] [address] PHONE: [phone] FAX: [phone] Name .................. : DIMA Garcia Acct Number.................. : [id number] ROOM. ................. : TR-07 Number ................... : [id number] Stay type ............. : E/R Discharge Date......... ... : Admit Date ......... : 05/14/19 Admit Phys .................... : WHITLEY OLMSTEAD Date of ....... : 1955 Family Phys ................... : TRU WATERMAN Phone .................. : [phone] Age ................................ : 64 Film# .................. .:[id number] Sex ................................. 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 Patient counseled in [...] hyperglycemia. 7 Clinical Report - Physicians/Mid Levels [facility] Emergency Department [address] [place] [address] Phone #: ext- [phone] 05/14/2019 09:45 Patient: [...] 1 inhalation 2x a day.[facility] [place]*.Aspir-81 Oral : Tablet Delayed Release 81 mg, 1 tablet daily.Basaglar* : 20 unita, at bedtime.[facility]* : douds.Claritin Oral : Tablet Chewable 5 mg, 1 [...] 3*.Follow-up: 8 Clinical Report - Physicians/Mid Levels [facility] Emergency Department [address] [place] [address] Phone #: ext- [phone] 05/14/2019 09:45 Patient: [...] rce(s) Supporting Document(s) ID Date Data Source [id number] 05/14/2019 09:46:00 AM EST [facility] Addenda for DONNY FAITH VisitID: [id number] Date: 7:54normal saline * IV Fluids 1000 cc bolusNormal saline IV Fluids Discontinued: bag #1 infused. Total amount infused: 1000 mL.(Electronically signed by Quoc Sandoval RN - 05/28/2019 7:54) Name Value Range Interpretation Code Description Data Raquel rce(s) Supporting Document(s) ID Date Data Source [id number] 05/15/2019 09:43:00 AM EST [facility] [address] [place] [address] PHONE: [phone] FAX: [phone] Name .................. : DIMA Garcia Acct Number.................. : [id number] ROOM. ................. : TR-07 Number ................... : [id number] Stay type ............. : E/R Discharge Date......... ... : Admit Date ......... : 05/14/19 Admit Phys .................... : WHITLEY OLMSTEAD Date of ....... : 1955 Family Phys ................... : TRU WATERMAN Phone .................. : [phone] Age ................................ : 64 Film# .................. .:[id number] Sex ................................. : M Unsigned transcriptions are preliminary reports and do not represent a medical or legal document CHEST PORTABLE [id number] COMPLETE:05/14/19 10:22 86196 Reason(s): weakness, cough PORTABLE CHEST X- RAY: [...] rce(s) Supporting Document(s) ID Date Data Source [id number] 05/15/2019 01:02:00 [place] [address] RESPIRATORY CARE REPORT ==== ---------NAME------- NUMBER SEX AGE ADMIT DISC. XRAY# F/C [facility] DONNY A [id number] 64 05/14/19 05/14/19 [id number] MB4 E/R DATE OF : 1955 M/R# [id number] #: [id number] TR-07 LOCATION: EMERGENCY DEPT EKG [id number] COMP LETE:05/14/19 15:[place] [address] PHYSICIAN: WHITLEY OLMSTEAD Name Value Range Interpretation Code Description Data Raquel rce(s) Supporting Document(s) ID Date Data Source [id number] 05/14/2019 11:42:00 AM [facility] Name Value Range Interpretation Code Description Data Raquel rce(s) Supporting Document(s) COMPREHENSIVE METABOLIC PANEL [facility] COMPREHENSIVE METABOLIC PANEL Sodium [Moles/volume] in Serum or Plasma 131 mEq/L 134 - 153 L [facility] Potassium [Moles/volume] in Serum or Plasma 3.8 mEq/L 3.6 - 5.0 [facility] Chloride [Moles/volume] in Serum or Plasma 94 mEq/L 98 - 107 L [facility] Carbon dioxide, total [Moles/volume] in Serum or Plasma 24 MEQ/L 22 - 30 [facility] Glucose [Mass/volume] in Serum or Plasma 445 MG/DL 65 - 110 HH [facility] CHECKED IN DUPLICATE CALL/ READ BACK CALLED TO DR. WHITLEY [facility] BY: [facility].14[facility]19 @ 1140 [facility] ospital BUN 13 MG/DL 7 - 21 [facility] al Creatinine [Mass/volume] in Serum or Plasma 0.6 MG/DL 0.7 - 1.5 L [facility] BUN/CREAT 22 8 - [facility] al Protein [Mass/volume] in Serum or Plasma 6.1 G/DL 6.3 - 8.2 L [facility] Albumin [Mass/volume] in Serum or Plasma 3.6 G/DL 3.9 - 5.0 L [facility] Globulin [Mass/volume] in Serum by calculation 2.5 GM/DL 2.4 - 3.2 [facility] A/G RATIO 1.4 0.8 - 2.0 [facility] Calcium [Mass/volume] in Serum or Plasma 8.8 MG/DL 8.4 - 10.2 [facility] Bilirubin.total [Mass/volume] in Serum or Plasma <0.7 MG/DL 0.2 - 1.3 [facility] Alkaline phosphatase [Enzymatic activity/volume] in Serum or Plasma 71 U/L 38 - 126 [facility] Aspartate aminotransferase [Enzymatic activity/volume] in Serum or Plasma 12 U/L 5 - 40 [facility] Alanine aminotransferase [Enzymatic activity/volume] in Seru m or Plasma 17 U/L 7 - 56 [facility] Anion gap 3 in Serum or Plasma 13.0 mmol/L 8.0 - 16.0 [facility] AGE 64 yrs [facility] al NON-AA GFR >60 mL/min [facility] ital AFR AMER GFR >60 mL/min [facility] spital Male GFR In terprentation 20-49 yrs [...] >32 mL/min Normal ID Date Data Source [id number] 05/14/2019 11:15:00 AM [facility] Name Value Range Interpretation Code Description Data Raquel rce(s) Supporting Document(s) Lipase [Enzymatic activity/volume] in Serum or Plasma 27 U/L 13 - 60 [facility] ID Date Data Source [id number] 05/14/2019 11:13:00 AM [facility] Name Value Range Interpretation Code Description Data Raquel rce(s) Supporting Document(s) TROPONIN T 0.01 NG/ML 0.00 - 0.10 [facility] spital TROPONIN T0.1 ng/ml Recommended as the c linical threshold value forTroponin T. ID Date Data Source [id number] 05/14/2019 10:54:00 AM [facility] Name Value Range Interpretation Code Description Data Raquel rce(s) Supporting Document(s) Prothrombin time (PT) 14.4 SECONDS 11.0 - 15.5 [facility] INR in Platelet poor plasma by Coagulation assay 1.11 0.93 - 1. 23 [facility] aPTT in Blood by Coagulation assay 27.1 SECONDS 24.8 - 36.7 [facility] \\BLDo\\INR INTERPRETATION\\BLDx\\ Therapeutic range for Coumadin and related oral anticoagulants. - International Normalized Ratio (INR): 2.0 - 3.0 for Venous Thrombosis, Pulmonary Embolus, Tissue heart valves, Acute RI Atrial Fibrillation, Valvular heart disease and recurrent [...] and other interferences. ID Date Data Source [id number] 05/14/2019 10:51:00 AM [facility] Name Value Range Interpretation Code Description Data Raquel rce(s) Supporting Document(s) pH of Serum or Plasma 7.39 7.32 - 7.43 [facility] pCO2 V 47.2 mm/HG 38.0 - 51.0 [facility] pO2 V 26.5 mm/HG 30.0 - 55.0 L [facility] pital Bicarbonate [Moles/volume] in Venous blood 27.9 meq/L 22.0 - 29.0 [facility] TCO2 V 29.4 meq/L 22.0 - 29.0 H [facility] pital Base excess in Blood by calculation 2.3 -2.0 - 2.0 H [facility] O2 SAT V 48.1 % 40.0 - 85.0 [facility] Hosp ital ID Date Data Source [id number] 05/14/2019 10:46:00 AM [facility] Name Value Range Interpretation Code Description Data [facility](s) Supporting Document(s) CBC W/AUTOMATED DIFF [facility] COMPLETE BLOOD COUNT Leukocytes [#/volume] in Blood by Automated count 7.8 10^3/uL 4.2 - 1 1.0 [facility] Erythrocytes [#/volume] in Blood by Automated count 4.25 10^6/uL 4. 50 - 6.30 L [facility] Hemoglobin [Mass/volume] in Blood 13.4 g/dL 14.0 - 16.0 L [facility] Hematocrit [Volume Fraction] of Blood by Automated count 38.3 % 4 1.0 - 51.0 L [facility] Erythrocyte mean corpuscular volume [Entitic volume] by Auto mated count 90.1 fL 80.0 - 94.0 [facility] Erythrocyte mean corpuscular hemoglobin [Entitic mass] by Automated count 31.5 pg 27.0 - 34.0 [facility] Erythrocyte mean corpuscular hemoglobin concentration [Mass/volume] by Automated count 35.0 g/dL 31.0 - 36.0 [facility] Erythrocyte distribution width [Ratio] by Automated count 13.0 % 11.5 - 14.8 [facility] Platelets [#/volume] in Blood by Automated count 210 10^3/uL 150 - 45 0 [facility] Platelet mean volume [Entitic volume] in Blood by Automated count 9.2 fL 7.4 - 10.4 [facility] Neutrophils/100 leukocytes in Blood by Automated count 61.1 % 37. 0 - 80.0 [facility] Lymphocytes/100 leukocytes in Blood by Manual count 28.1 % 25.0 - 40.0 [facility] Monocytes/100 leukocytes in Blood by Automated count 6.0 % 3.0 - 8.0 [facility] Eosinophils/100 leukocytes in Blood by Automated count 3.5 % 0.0 - 7.0 [facility] Basophils/100 leukocytes in Blood by Automated count 0.4 % 0.0 - 2.0 [facility] %IG 0.9 % 0.0 - 0.0 [facility] %NRBC 0.0 % 0.0 - 0.0 [facility] al Neutrophils [#/volume] in Blood by Automated count 4.75 10^3/uL 2.00 - 6.90 [facility] Lymphocytes [#/volume] in Blood by Automated count 2.18 10^3/uL 0.60 - 3.40 [facility] Monocytes [#/volume] in Blood by Automated count 0.47 10^3/uL 0.00 - 0.90 [facility] Eosinophils [#/volume] in Blood by Automated count 0.27 10^3/uL 0.00 - 0.70 [facility] Basophils [#/volume] in Blood by Automated count 0.03 10^3/uL 0.00 - 0.20 [facility] #IG 0.07 10^3/uL 0.00 - 0.10 [facility] ospital #NRBC 0.00 10^3/uL 0.00 - 0.00 [facility] ospital MANUAL DIFF NOT INDICATED [facility] RBC MORPH NOT INDICATED [facility] Ho spital ID Date Data Source [id number] 05/14/2019 10:47:00 AM EST [facility] Name Value Range Interpretation Code Description Data Raquel rce(s) Supporting Document(s) [facility] SOURCE R [facility] COLOR yellow NORMAL: Yellow [facility] ospital CLARITY clear NORMAL: Clear [facility] Ho spital Specific gravity of Urine by Test strip 1.015 1.001 - 1.030 [facility] pH 6.5 5 - 9 [facility] al Glucose [Mass/volume] in Urine by Test strip 1000 NORMAL: Negat [facility] Bilirubin.total [Presence] in Urine by Test strip NEG NORMAL: Negative [facility] Ketones [Presence] in Urine by Test strip NEG NORMAL: Negative [facility] Protein [Mass/volume] in Urine by Test strip NEG NORMAL: Negat [facility] Nitrite [Presence] in Urine by Test strip NEG NORMAL: Negative [facility] BLOOD NEG NORMAL: Negative [facility] Leukocyte esterase [Presence] in Urine by Test strip NEG SANDRA L: Negative [facility] Urobilinogen [Mass/volume] in Urine by Test strip NOR less jenniffer n 1.0 mg/dL [facility] MICROSCOPIC See Below [facility] ital WBC None Seen NORMAL: NONE SEEN [facility] Erythrocytes [#/volume] in Urine by Test strip None Seen NORMAL: NON E SEEN [facility] EPITHELIAL FEW NORMAL: NONE SEEN [facility] Bacteria [Presence] in Urine sediment by Light microscopy No ne Seen NORMAL: NONE SEEN [facility] YEAST None [facility]en [facility] ID Date Data Source [id number] 05/09/2019 12:33:00 PM EST [facility] [address] [place] [address] RESPIRATORY CARE REPORT ==== ---------NAME------- NUMBER SEX AGE ADMIT DISC. XRAY# F/C AUTUMN Garcia [id number] M 64 05/07/19 05/07/19 [id number] MB4 E/R DATE OF : 1955 M/R# [id number] PH#: [phone] [id number] LOCATION: EMERGENCY DEPT EKG [id number] COMP LETE:05/08/19 02:44 VMT 35221 PHYSICIAN: WHITLEY OLMSTEAD Name Value Range Interpretation Code Description Data Raquel rce(s) Supporting Document(s) ID Date Data Source [id number] 05/08/2019 09:35:00 [place] [address] PHONE: [phone] FAX: [phone] Name .................. : DIMA Garcia Acct Number.................. : [id number] ROOM. ................. : Number ................... : [id number] Stay type ............. : E/R Discharge Date......... ... : 05/07/19 Admit Date ......... : 05/07/19 Admit Phys .................... : WHITLEY OLMSTEAD Date of ....... : 1955 Family Phys ................... : TRU WATERMAN Phone .................. : [phone] Age ................................ : 64 Film# .................. .:[id number] Sex ................................. 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 PORTABLE CHEST X-RAY: COMPARISON: 12/16/18 FINDINGS: [...] By Barron Maguire MD , 05/08/19 09:35, [facility] Transcribe Initials: DZ , Transcribe Date: 05/08/19 09:01, Dictation Date: Copy for: EMERGENCY DEPT via [facility] Copy for: 710 MED REC DISCHARGED Page 1 of 1 Name Value Range Interpretation Code Description Data Raquel rce(s) Supporting Document(s) ID Date Data Source [id number] 05/07/2019 06:37:00 PM EST [facility] 1 OrderSheet [facility] Emergency Department [address] [place] [address] Phone #: [phone]- [phone] 05/07/2019 18:37 Patient: DONNY FAITH [facility]#: [id number] Sex: M : 1955 Age: 64yWEIGHT:75.2 kg (M) HEIGHT:68 inches (S) BMI:25.2ALLERGIES: Acetaminophen, Benadryl, Copan, Motrin, Paxil, Penicillins, ThorazineCHIEF COMPLAINT: dyspnea, COPDDIAGNOSIS: Bronchitis, Chronic obstructive lung diseaseLAB ORDERSOrder Description Priority Entered Acknowledged InitialedCBC w Diff STAT 19:05/07/2019 19:08 Rangel Arreaga, [place] passenger booking clerkRk M.D.; [id number] STAT 19:05/07/2019 19:08 Rangel Arreaga [place] passenger booking clerkRk M.D.; Yoby9Thkayo STAT 19:05/07/2019 19:08 Rangel Arreaga [place] passenger booking clerkRk M.D.; Wybn8OC/PTT STAT 19:01 05/07/2019 19:08 Rangel Arreaga [place] passenger booking clerkRk M.D.; Lxjl3Duywauyp-N STAT 19:01 05/07/2019 19:08 Rangel Arreaga [place] passenger booking clerkRk M.D.; Fyym8V-Gkvkn STAT 19:01 05/07/2019 19:08 Rangel Arreaga [place] passenger booking clerkRk M.D.; Rhph9MUE STAT 19:01 05/07/2019 19:08 Rangel Arreaga [place] passenger booking clerkRk M.D.; Lehu1Qadwgt Acid STAT 19:02 05/07/2019 19:08 Rangel Arreaga [place] passenger booking clerkRk M.D.; Bsvq9Iqwji Culture STAT 19:02 05/07/2019 19:08 Tzhldckc45j X2 (Sched [place] Arreaga passenger booking clerkRk19:02 05/07/2019) Bubba; Msoi4Vvzru Culture STAT 19:02 05/07/2019 19:12 Zoss, Fmldty75i X2 (Sched [place] Arreaga R.N.19:12 05/07/2019Melvi Mac;Venous Blood Gas STAT 19:05/07/2019 19:12 Zoss, July 2 OrderSheet [facility] Emergency Department [address] [place] [address] Phone #: ext- [phone] 05/07/2019 18:37 Patient: DONNY FAITH Sex: M : 1955 Age: 64y [place] Arreaga R.N., M.D.;Influenza Nasal A B STAT 19:05/07/2019 19:12 Zoss, July [place] Arreaga R.N., M.D.; Reason for ordering with alerts: Clinical consideration given -- 19:05/07/2019 [place] Arreaga M.D.DIAGNOSTIC STUDY ORDERSOrder Description Priority Entered Acknowledged InitialedChest Portable 1 STAT 19:05/07/2019 19:08 [facility]? [place] Arreaga passenger booking clerk, Rk IZAGUIRRE(Yes)) Bubba; Tech1 Reason for Study: COPD, Shortness of BreathMEDICATION/IV/DRIP/FLUID ORDERSOrder Description Priority Entered Acknowledged InitialedDuoNeb Neb Tx 3 19:02 05/07/2019 19:18 Zoss, JulymL [place] Arreaga R.N., M.D.; Reason for ordering with alerts: Clinical consideration given -- 19:05/07/2019 [place] Arreaga M.D.SOLU-Medrol 125 19:05/07/2019 19:16 Zoss, Julymg IV X1 Dose: 125 [place] Arreaga R.N.mg (X1) Bubba; Reason for ordering with alerts: Clinical consideration given -- 19:05/07/2019 [place] Arreaga M.D.NS IV 500 mL 19:03 05/07/2019 19:15 Zoss, AprilBolus: : Bolus 500 Kiritrin, [place] R.N.mL, then 150 mL/hr M.D.;(X1)Ativan PO 1 mg 20:12 05/07/2019 20:14 SantiagoJuly [place] Arreaga R.N., M.D.;GENERAL ORDERSOrder Description Priority Entered Acknowledged InitialedBlood Pressure 19:05/07/2019 19:05 [place] Bartholomew RN, M.D.;Health Insurance Sales Agent 19:05/07/2019 19:05 Lloyd(continuous) [place] Arreaga RN, M.D.; 3 OrderSheet [facility] Emergency Department [address] [place] [address] Phone #: ext- [phone] 05/07/2019 18:37 Patient: DONNY FAITH Sex: M : 1955 Age: 64yEKG 19:05/07/2019 19:05 [place] Vazquez RN, M.D.;NPO 19:05/07/2019 19:05 [place] Vazqeuz RN, M.D.;Obtain Old EKG 19:05/07/2019 19:12 SantiagoJuly [place] Arreaga R.N., M.D.;Obtain Old Records 19:05/07/2019 19:12 Santiago, July [place] Arreaga R.N., M.D.;Oxygen (3 L/min) 19:05/07/2019 19:12 SantiagoJuly(NC) (Titrate to O2 [place] Arreaga.NPadmaSat >92%) Bubba;Oxygen titrate to 19:05/07/2019 19:12 SantiagoJuly92% [place] Arreaga R.N., M.D.;Pulse oximeter 19:05/07/2019 19:05 Lloyd(Continuous) [place] Arreaga RN, M.D.;Saline Lock 19:05/07/2019 19:05 [place] Vazquez RN, M.D.;Vitals 19:01 05/07/2019 19:05 [place] Vazquez RN, M.D.;[Electronically signed by Latonya Henderson R.N. (20:31 05/07/2019)][Electronically signed by [place] Arreaga M.D. (20:59 05/07/2019)][Electronically locked by Latonya Henderson R.N. (:05/07/2019)] Name Value Range Interpretation Code Description Data Raquel rce(s) Supporting Document(s) ID Date Data Source [id number] 05/07/2019 06:37:00 PM EST [facility] 1 Medication Reconciliation Report [facility] Emergency Department [address] [place] [address] Phone #: ext- [phone] 05/07/2019 18:37 Patient: DONNY FAITH Sex: M : 1955 Age: 64yWeight: 75.2 kgHeight/Length: 68 in.BMI: 25.2ALLERGIES: Acetaminophen, Benadryl, Copan, Motrin, Paxil, Penicillins, ThorazineThe patient's Home Medications are listed below:CONTINUE TAKING THE FOLLOWING MEDICATIONS: Advair Diskus Inhalation (500-50 mcg/dose) 1 inhalation, 2x a day Advocate Insulin Pen [place] Aspir-81 Oral (81 mg) 1 tablet, daily Basaglar 20 unita, at bedtime [facility] Claritin Oral (5 mg) 1 [...] 2x a day 2 Medication Reconciliation Report [facility] Emergency Department [address] [place] [address] Phone #: ext- [phone] 05/07/2019 18:37 Patient: DONNY FAITH Sex: M [...] Dispense 10 tablet. Refills: 0.Substitution permitted.Pharmacy - [facility]- [place], [place] - [address] [place] [address] ; [place], [place] [id number]. .Tessalon Perles 100 mg capsule Take 1 capsule three times a day for 5 days -- Dispense 15 capsule.Refills: 1. Substitution permitted.Pharmacy - [facility]- [place], [place] - [address] [place] [address] ; [place], [place] [id number]. . -- [place] Arreaga M.D. Name Value Range Interpretation Code Description Data Raquel rce(s) Supporting Document(s) ID Date Data Source [id number] 05/07/2019 06:37:00 PM EST [facility] 1 Medication Administration Record [facility] Emergency Department [address] [place] [address] Phone #: ext- [phone] 05/07/2019 18:37 Patient: DONNY FAITH Sex: M : 1955 Age: 64yWeight: 75.2 kgHeight/Length: 68 inBMI: 25.2ALLERGIES: Acetaminophen, Benadryl, Copan, Motrin, Paxil, Penicillins, Thorazine Date/Time Medication Administered Medication OrderedGiven DUONEB [NEB TX] DuoNeb Neb Tx 3 mL19:18 05/07/2019 Dose: 1 unit dose Espinoza TXZopadmini, Latonya, R.N.Given SOLU-MEDROL [IVP] SOLU-Medrol 125 mg IV X1 Dose:19:16 05/07/2019 (METHYLPREDNISOLONE SODIUM 125 mg (X1)Santiago July, R.N. SUCC) Dose: 125 mg IVP Site: #1 right upper armStart NS [IV] NS IV 500 mL Bolus: : Bolus 23517:15 05/07/2019 Dose: IV Fluids mL, then 150 mL/hr (X1)Latonya Henderson, R.N. Rate: 125 mL/hr---- Bolus: 500 mL over 30 minute(s)Stop Dispensed: 1000 mL bag20:15 05/07/2019 Site: #1 right upper armZoss, July, R.N.Given ATIVAN [PO] (LORAZEPAM) Ativan PO 1 mg20:14 05/07/2019 Dose: 1 mg POZoss, Latonya, R.N. Name Value Range Interpretation Code Description Data Raquel rce(s) Supporting Document(s) ID Date Data Source [id number] 05/07/2019 06:37:00 PM EST [facility] 1 General Instructions [facility] Emergency Department [address] [place] [address] Phone #: ext- [phone] 05/07/2019 18:37 Patient: [...] inhalation 2x a day. Advocate Insulin Pen [place]*. Aspir-81 Oral : Tablet Delayed Release 81 mg, 1 tablet daily. Basaglar* : 20 unita, at bedtime. [facility]*. Claritin Oral : Tablet [...] puffs q8h, prn, sob. 2 General Instructions [facility] Emergency Department [address] [place] [address] Phone #: ext- [phone] 05/07/2019 18:37 Patient: DONNY FAITH Sex: M : 1955 Age: 64yZ pack 1 tab day pt on day 3*.Prescription Medications:prednisone 20 mg tablet Take 2 tablet once a day for 5 days -- Dispense 10 tablet. Refills: 0.Substitution permitted.Pharmacy - [facility]- [address] ; [place], [place] [id number]. .Tessalon Perles 100 mg capsule Take 1 capsule three times a day for 5 days -- Dispense 15 capsule.Refills: 1. Substitution permitted.[facility] - [address] ; [place], [place] [id number]. .Follow-up:Return to the emergency department as needed. [...] ADDITIONAL INFORMATIONViral Bronchitis (Adult) 3 General Instructions [facility] Emergency Department [address] [place] [address] Phone #: ext- [phone] 05/07/2019 18:37 Patient: [...] back to your usual 4 General Instructions [facility] Emergency Department [address] [place] [address] Phone #: ext- [phone] 05/07/2019 18:37 Patient: DONNY FAITH Sex: M : 1955 Age: 64y activities, don't let yourself get too tired. Do not smoke. Also avoid being exposed to secondhand smoke. You may use oitv-ice-ibwdcvq medicine to control fever or pain, unless [...] loosen secretions in the nose and lungs. Gzhh-lef-ngsfwaz cough, cold, and sore-throat medicines will not [...] headache, or stiff neck 5 General Instructions [facility] Emergency Department [address] [place] [address] Phone #: [phone] icx- [phone] 05/07/2019 18:37 Patient: DONNY FAITH Sex: M : 1955 Age: 64y Trouble breathing, wheezing, or pain with breathing [id number] [employer] [place] [address]. All rights reserved. This information is not [...] are having a flare-up: 6 General Instructions [facility] Emergency Department [address] [place] [address] Phone #: ext- [phone] 05/07/2019 18:37 Patient: [...] have been told to. 7 General Instructions [facility] Emergency Department [address] [place] [address] Phone #: ext- [phone] 05/07/2019 18:37 Patient: [...] new findings that may affect your care.Call [id number] [phone] if any of these occur: You have trouble breathing You feel confused or it's difficult to wake you up You faint or lose consciousness You have a rapid heart rate You have new pain in your chest, arm, shoulder, neck or upper back 8 General Instructions [facility] Emergency Department [address] [place] [address] Phone #: ext- [phone] 05/07/2019 18:37 Patient: [...] your ankles gets worse Dizziness or weakness [phone] [employer]. [address] [place] [address]. All rights reserved. This information is not intended as asubstitute for professional medical care. Always follow your healthcare professional's instructions.Viral Bronchitis (Adult) 9 General Instructions [facility] Emergency Department [address] [place] [address] Phone #: ext- [phone] 05/07/2019 18:37 Patient: [...] back to your usual 10 General Instructions [facility] Emergency Department [address] [place] [address] Phone #: [phone] tzf- [phone] 05/07/2019 18:37 Patient: DONNY FAITH Sex: M : 1955 Age: 64y activities, don't let yourself get too tired. Do not smoke. Also avoid being exposed to secondhand smoke. You may use idfr-qml-jiouteg medicine to control fever or pain, unless [...] loosen secretions in the nose and lungs. Flri-fju-licjrxt cough, cold, and sore-throat medicines will not [...] headache, or stiff neck 11 General Instructions [facility] Emergency Department [address] [place] [address] Phone #: [phone] ext- [phone] 05/07/2019 18:37 Patient: DONNY FAITH Sex: M : 1955 Age: 64y Trouble breathing, wheezing, or pain with breathing [phone] [employer] [place] [address]. All rights reserved. This information is not intended as asubstitute for professional medical care. Always follow your healthcare professional's instructions. You have been given the following additional information: Bronchitis, No Antibiotic (Adult) COPD Flare Bronchitis, No Antibiotic (Adult )(Electronically signed by [place] Arreaga M.D. 05/07/2019 20:59) Name Value Range Interpretation Code Description Data Raquel rce(s) Supporting Document(s) ID Date Data Source [id number] 05/07/2019 06:37:00 PM [facility] 1 Clinical Report - Nurses [facility] Emergency Department [address] [place] [address] Phone #: ext- [phone] 05/07/2019 18:37 Patient: [...] nausea yesterday and none today). EMS Treatment KNOTTER HAND: EMS treatment verbally communicated and report reviewed. [...] inhalation, 2x a day. Advocate Insulin Pen [place]. Aspir-81 Oral (Tablet Delayed Release 81 mg) 1 tablet, daily. Basaglar 20 unita, at bedtime. [facility]. Claritin Oral (Tablet Chewable 5 [...] HFA Inhalation. 2 Clinical Report - Nurses [facility] Emergency Department [address] [place] [address] Phone #: ext- [phone] 05/07/2019 18:37 Patient: [...] on day 3. --18:40 05/07/19 Lloyd Dixon RN.AllergiesAcetaminophen.Benadryl.Copan.Motrin.Paxil.Penicillins.Thorazine. --18:40 05/07/19 Lloyd Dixon RN.HistoryPAST MEDICAL HX: [...] Dixon RN. 3 Clinical Report - Nurses [facility] Emergency Department [address] [place] [address] Phone #: [phone] ext- [phone] 05/07/2019 18:37 Patient: DONNY FAITH Sex: M [...] shown to the ED physician. --18:59 05/07/19 Nada passenger booking clerk, Rk, ZINA Tech1 Oxygen administered by nasal cannula at 2 liters. school bus monitor, pulse oximeter and NIBP monitor placed [...] swab done and sent to lab with laboratory supervisor.). --19:19 05/07/19 Latonya Henderson R.N. 19:15 05/07/2019 [...] taking this medication. Verbalizes understanding. --19:15 05/07/19 Santiago JulyDustin 19:16 05/07/2019 Solu-Medrol (methylPREDNISolone Sodium Succ) IVP 125 mg given via site #1. Allergies verified and confirmed 5 rights. IV patency established. IV site checked: no pain, redness, or swelling. IV flushed thoroughly pre- and post- medication administration. IVP given by RN. Information reviewed with patient including reason for taking this medication. Verbalizes understanding. --19:16 05/07/19 Santiago JulyDustin 19:18 05/07/2019 Duoneb Neb TX 1 unit dose given. Given by the nurse. Allergies verified and confirmed 5 rights. Information reviewed with patient including reason for taking this medication. Verbalizes understanding. --19:18 05/07/19 Santiago JulyDustin 4 Clinical Report - Nurses [facility] Emergency Department [address] [place] [address] Phone #: ext- [phone] 05/07/2019 18:37 Patient: [...] Patient verbalized understanding. Written instructions provided in [place]. The patient was discharged by the physician. He was discharged home. He left ambulatory a nd via taxi. 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 --20:30 05/07/19 Latonya Henderson R.N. ( sandwich provided, pt waiting on medicaid cab to go home.). --20:31 05/07/19 Latonya Henderson R.N.Locked/Released at 05/07/2019 20:31 by Latonya Henderson R.N. 5 Clinical Report - Nurses [facility] Emergency Department [address] [place] [address] Phone #: ext- [phone] 05/07/2019 18:37 Patient: DONNY FAITH Sex: M : 1955 Age: 64y Name Value Range Interpretation Code Description Data Raquel rce(s) Supporting Document(s) ID Date Data Source [id number] 05/07/2019 06:37:00 PM EST [facility] 1 Clinical Report - Physicians/Mid Levels [facility] Emergency Department [address] [place] [address] Phone #: ext- [phone] 05/07/2019 18:37 Patient: DONNY FAITH Sex: M [...] Wall Pain. Parkinson's Disease. Seizure. Sleep Apnea. RI. Heart Disease. Hypercholesterolemia. 2 Clinical Report - Physicians/Mid Levels [facility] Emergency Department [address] [place] [address] Phone #: ext- [phone] 05/07/2019 18:37 [id number] Sex: M : 1955 Age: 64y Hypertension. [...] inhalation, 2x a day. Advocate Insulin Pen [place]. Aspir-81 Oral (Tablet Delayed Release 81 mg) 1 tablet, daily. Basaglar 20 unita, at bedtime. [facility]. Claritin Oral (Tablet Chewable 5 mg) 1 tablet, daily at bedtime. Allergies: Acetaminophen. Benadryl. Copan. Motrin. Paxil. Penicillins. Thorazine.SOCIAL HISTORYHeavy tobacco smoker- 1-2 packs per day. No alcohol use or drug use.ADDITIONAL NOTES 3 Clinical Report - Physicians/Mid Levels [facility] Department [address] [place] [address] Phone #: ext- [phone] 05/07/2019 18:37 Patient: [...] process. Lactic Acid: (ROSARIO: 05/07/2019 19:15) ( [facility] 19:33) Final results Test Result Flag [...] _[id number] Clinical Report - Physicians/Mid Levels [facility] Department [address] [place] [address] Phone #: ext- [phone] 05/07/2019 18:37 Patient: DONNY FAITH Sex: M : 1955 Age: 64y01.MISAEL. KIT EXP DATE _49-02-76 67/23/20.MISAEL.The Influenza A utilizing an isothermal nucleic acid [...] Male GFR Interprentation 20-49 yrs >60 mL/min Grjjbb27-98 yrs >56 mL/min Normal 60 -69 yrs >49 mL/min Normal 70-79yrs>42 mL/min Normal 80 and above >35 mL/min Normal Female GFRInterpretation 20-39 yrs >60 mL/min Normal 40-49 yrs >58 mL/min 5 Clinical Report - Physicians/Mid Levels [facility] Department [address] [place] [address] Phone #: ext- [phone] 05/07/2019 18:37 Patient: DONNY FAITH Sex: M : 1955 Age: 64y Normal 50-59 yrs >51 mL/min Normal 60-69 yrs >45 mL/min Normal 70-79 yrs >39 mL/min Normal 80 and above >32 mL/min Normal Lipase: (ROSARIO: 05/07/2019 19:15) ( [facility] 05/07/2019 19:58) Final results Test Result Flag Units (Reference) LIPASE 24 U/L (13 - 60) PT/PTT: (ROSARIO: 05/07/2019 19:15) ( [facility] 05/07/2019 19:34) Final results Test Result Flag Units (Reference) PROTIME 13.9 SECONDS (11.0 - 15.5) INR 1.06 (0.93 - 1.23) PTT 30.5 SECONDS (24.8 - 36.7) \\BLDo\\INR INTERPRETATION\\BLDx\\ Therapeutic range for Coumadin and related oral anticoagulants. - International Normalized Ratio (INR): 2.0 - 3.0 for Venous Thrombosis, Pulmonary Embolus, Tissue heart valves, Acute RI Atrial Fibrillation, Valvular heart disease and recurrent [...] other interferences. Troponin-T: (ROSARIO: 05/07/2019 19:15) ( [facility] 05/07/2019 19:52) Final results Test Result Flag Units (Reference) TROPONIN T <0.01 NG/ML (0.00 - 0.10) TROPONIN T0.1 ng/ml Recommended as the clinical threshold value forTroponin T. D-Dimer: (ROSARIO: 05/07/2019 19:15) ( [facility] 05/07/2019 19:33) Final results Test Result Flag Units (Reference) D-DIMER QUANT 0.44 ug/mL (0.27 - 0.50) BNP: (ROSARIO: 05/07/2019 19:15) ( [facility] 05/07/2019 19:56) Final results Test Result Flag Units (Reference) BNP 6 PG/ML (0 - 125) Chest Portable 1 View: (ROSARIO: 05/07/2019 19:01) ( [facility] 05/07/2019 19:31) In Progress CHEST PORTABLE [...] treatment. 6 Clinical Report - Physicians/Mid Levels [facility] [address] [place] [address] Phone #: ext- [phone] 05/07/2019 18:37 Patient: [...] inhalation 2x a day. [facility] [place]*. Aspir-81 Oral : Tablet Delayed Release 81 mg, 1 tablet daily. Basaglar* : 20 unita, at bedtime. [facility]*. Claritin Oral : Tablet [...] 3*. 7 Clinical Report - Physicians/Mid Levels [facility] [address] [place] [address] Phone #: ext- [phone] 05/07/2019 18:37 Patient: DONNY FAITH Sex: M : 1955 Age: 64y Prescription Medications: prednisone 20 mg tablet Take 2 tablet once a day for 5 days -- Dispense 10 tablet. Refills: 0. Substitution permitted. Pharmacy - [facility]- [place], [place] - [address] [place] [address] ; [place], [place] [id number]. . Merary Perles 100 mg capsule Take 1 capsule three times a day for 5 days -- Dispense 15 capsule. Refills: 1. Substitution permitted. Pharmacy - [facility]- [place], [place] - [address] [place] [address] ; [place], [place] [id number]. . Follow-up: Return to the emergency department [...] rce(s) Supporting Document(s) ID Date Data Source [id number] 05/13/2019 10:07:00 PM [facility] Name Value Range Interpretation Code Description Data Raquel rce(s) Supporting Document(s) CULTURE BLOOD [facility] _CULTURE BLOOD_ TEST PERFORM ED AT [address] [address] CLIA# [id number] SEE SCANNED REPORT{ PRELIM ID Date Data Source [id number] 05/13/2019 09:45:00 AM [facility] [id number] Name Value Range Interpretation Code Description Data Raquel rce(s) Supporting Document(s) Bacteria identified in Blood by Culture [facility] NO GROWTH AFTER 5 DAYS ID Date Data Source [id number] 05/13/2019 10:06:00 PM [facility] Name Value Range Interpretation Code Description Data Raquel rce(s) Supporting Document(s) CULTURE BLOOD [facility] _CULTURE BLOOD_ TEST PERFORM ED AT [address] [address] CLIA# [id number] SEE SCANNED REPORT{ PRELIM ID Date Data Source [id number] 05/07/2019 08:01:00 PM EST [facility] Name Value Range Interpretation Code Description Data Raquel rce(s) Supporting Document(s) COMPREHENSIVE METABOLIC PANEL [facility] COMPREHENSIVE METABOLIC PANEL Sodium [Moles/volume] in Serum or Plasma 134 mEq/L 134 - 153 [facility] Potassium [Moles/volume] in Serum or Plasma 3.9 mEq/L 3.6 - 5.0 [facility] Chloride [Moles/volume] in Serum or Plasma 97 mEq/L 98 - 107 L [facility] Carbon dioxide, total [Moles/volume] in Serum or Plasma 24 MEQ/L 22 - 30 [facility] Glucose [Mass/volume] in Serum or Plasma 336 MG/DL 65 - 110 H [facility] BUN 19 MG/DL 7 - 21 [facility] al Creatinine [Mass/volume] in Serum or Plasma 0.7 MG/DL 0.7 - 1.5 [facility] BUN/CREAT 27 8 - 27 [facility] al Protein [Mass/volume] in Serum or Plasma 7.1 G/DL 6.3 - 8.2 [facility] Albumin [Mass/volume] in Serum or Plasma 4.5 G/DL 3.9 - 5.0 [facility] Globulin [Mass/volume] in Serum by calculation 2.6 GM/DL 2.4 - 3.2 [facility] A/G RATIO 1.7 0.8 - 2.0 [facility] Calcium [Mass/volume] in Serum or Plasma 10.0 MG/DL 8.4 - 10.2 [facility] Bilirubin.total [Mass/volume] in Serum or Plasma 0.7 MG/DL 0.2 - 1.3 [facility] Alkaline phosphatase [Enzymatic activity/volume] in Serum or Plasma 89 U/L 38 - 126 [facility] Aspartate aminotransferase [Enzymatic activity/volume] in Serum or Plasma 14 U/L 5 - 40 [facility] Alanine aminotransferase [Enzymatic activity/volume] in Seru m or Plasma 18 U/L 7 - 56 [facility] Anion gap 3 in Serum or Plasma 13.0 mmol/L 8.0 - 16.0 [facility] 64 [facility] >60 mL/min [facility] AFR AMER GFR >60 mL/min [facility] Male GFR In terprentation 20-49 [...] >32 mL/min Normal ID Date Data Source [id number] 05/07/2019 07:58:00 PM [facility] Name Value Range Interpretation Code Description Data Raquel rce(s) Supporting Document(s) Lipase [Enzymatic activity/volume] in Serum or Plasma 24 U/L 13 - 60 [facility] ID Date Data Source [id number] 05/07/2019 07:56:00 PM [facility] Name Value Range Interpretation Code Description Data Raquel rce(s) Supporting Document(s) BNP 6 PG/ML 0 - 125 [facility] al ID Date Data Source [id number] 05/07/2019 07:51:00 PM [facility] Name Value Range Interpretation Code Description Data Raquel rce(s) Supporting Document(s) TROPONIN T <0.01 NG/ML 0.00 - 0.10 [facility] ospital TROPONIN T0.1 ng/ml Recommended as the c linical threshold value forTroponin T. ID Date Data Source [id number] 05/07/2019 07:41:00 PM [facility] Value Range Interpretation Code Description Data Raquel rce(s) Supporting Document(s) Influenza virus A Ag [Presence] in Nasopharynx by Immunoassa y NEGATIVE NORMAL: NEGATIVE [facility] Influenza virus B Ag [Presence] in Nasopharynx by Immunoassa y NEGATIVE NORMAL: NEGATIVE [facility] NEGATIVENEGATIVE PROCEDURAL CO NTROL VALID KIT LOT # _[id number] 05/07/19.MISAEL. KIT EXP DATE _[id number] 05/07/19.MISAEL.The Influenza A & B assay is a rapid molecular in vitro diagnostic testutilizing an isothermal nucleic acid amplification technology for thequalitative detection of influenza A and B viral RNA.Negative results do not preclude influenza virus infection and should not beused as the sole basis for diagnosis, treatment or other patient managementdecisions. ID Date Data Source [id number] 05/07/2019 07:34:00 PM [facility] Name Value Range Interpretation Code Description Data Raquel rce(s) Supporting Document(s) Prothrombin time (PT) 13.9 SECONDS 11.0 - 15.5 [facility] INR in Platelet poor plasma by Coagulation assay 1.06 0.93 - 1. 23 [facility] aPTT in Blood by Coagulation assay 30.5 SECONDS 24.8 - 36.7 [facility] \\BLDo\\INR INTERPRETATION\\BLDx\\ Therapeutic range for Coumadin and related oral anticoagulants. - International Normalized Ratio (INR): 2.0 - 3.0 for Venous Thrombosis, Pulmonary Embolus, Tissue heart valves, Acute RI Atrial Fibrillation, Valvular heart disease and recurrent [...] and other interferences. ID Date Data Source [id number] 05/07/2019 07:33:00 PM [facility] Name Value Range Interpretation Code Description Data Raquel rce(s) Supporting Document(s) pH of Serum or Plasma 7.44 7.32 - 7.43 H [facility] pCO2 V 34.2 mm/HG 38.0 - 51.0 L [facility] pital pO2 V 128.9 mm/HG 30.0 - 55.0 H [facility] spital Bicarbonate [Moles/volume] in Venous blood 22.8 meq/L 22.0 - 29.0 [facility] TCO2 V 23.9 meq/L 22.0 - 29.0 [facility] Base excess in Blood by calculation -0.6 -2.0 - 2.0 [facility] O2 SAT V 99.0 % 40.0 - 85.0 H [facility] ital ID Date Data Source [id number] 05/07/2019 07:33:00 PM EST [facility] Name Value Range Interpretation Code Description Data Raquel rce(s) Supporting Document(s) Lactate [Moles/volume] in Serum or Plasma 2.0 MMOL/L 0.2 - 2.2 [facility] ID Date Data Source [id number] 05/07/2019 07:33:00 PM [facility] Name Value Range Interpretation Code Description Data Raquel rce(s) Supporting Document(s) Fibrin D-dimer FEU [Mass/volume] in Platelet poor plasma 0.44 ug /mL 0.27 - 0.50 [facility] ID Date Data Source [id number] 05/07/2019 07:27:00 PM [facility] Name Value Range Interpretation Code Description Data Raquel rce(s) Supporting Document(s) CBC W/AUTOMATED DIFF [facility] COMPLETE BLOOD COUNT Leukocytes [#/volume] in Blood by Automated count 10.5 10^3/uL 4.2 - 11.0 [facility] Erythrocytes [#/volume] in Blood by Automated count 4.57 10^6/uL 4. 50 - 6.30 [facility] Hemoglobin [Mass/volume] in Blood 14.3 g/dL 14.0 - 16.0 [facility] Hematocrit [Volume Fraction] of Blood by Automated count 40.8 % 4 1.0 - 51.0 L [facility] Erythrocyte mean corpuscular volume [Entitic volume] by Auto mated count 89.3 fL 80.0 - 94.0 [facility] Erythrocyte mean corpuscular hemoglobin [Entitic mass] by Automated count 31.3 pg 27.0 - 34.0 [facility] Erythrocyte mean corpuscular hemoglobin concentration [Mass/volume] by Automated count 35.0 g/dL 31.0 - 36.0 [facility] Erythrocyte distribution width [Ratio] by Automated count 13.0 % 11.5 - 14.8 [facility] Platelets [#/volume] in Blood by Automated count 207 10^3/uL 150 - 45 0 [facility] Platelet mean volume [Entitic volume] in Blood by Automated count 9.3 fL 7.4 - 10.4 [facility] Neutrophils/100 leukocytes in Blood by Automated count 58.4 % 37. 0 - 80.0 [facility] Lymphocytes/100 leukocytes in Blood by Manual count 29.9 % 25.0 - 40.0 [facility] Monocytes/100 leukocytes in Blood by Automated count 7.4 % 3.0 - 8.0 [facility] Eosinophils/100 leukocytes in Blood by Automated count 3.4 % 0.0 - 7.0 [facility] Basophils/100 leukocytes in Blood by Automated count 0.6 % 0.0 - 2.0 [facility] %IG 0.3 % 0.0 - 0.0 H [facility] al %NRBC 0.0 % 0.0 - 0.0 [facility] al Neutrophils [#/volume] in Blood by Automated count 6.12 10^3/uL 2.00 - 6.90 [facility] Lymphocytes [#/volume] in Blood by Automated count 3.13 10^3/uL 0.60 - 3.40 [facility] Monocytes [#/volume] in Blood by Automated count 0.78 10^3/uL 0.00 - 0.90 [facility] Eosinophils [#/volume] in Blood by Automated count 0.36 10^3/uL 0.00 - 0.70 [facility] Basophils [#/volume] in Blood by Automated count 0.06 10^3/uL 0.00 - 0.20 [facility] #IG 0.03 10^3/uL 0.00 - 0.10 [facility] ospital #NRBC 0.00 10^3/uL 0.00 - 0.00 [facility] MANUAL DIFF NOT INDICATED [facility] RBC MORPH NOT INDICATED [facility] Procedure Social History Code Duration Value Status Description Data Source(s ) 11/13/2019 11:12:35 AM EDT Current every day smoker co mpleted Current every day smoker [facility] Smoking 11/13/2019 11:12:00 AM EDT Current every day smoker co mpleted Current every day smoker [facility] Vital Signs ID Date Data Source UNK Name Value Range Interpretation Code Description Data Source(s) [place] body weight 154 [lb_av] 154 [lb_av] [facility] ([facility], ) Body height 68 [in_i] 68 [in_i] [facility] 5'8" Oxygen saturation in Arterial blood by Pulse oximetry 99 % 99 % [facility] ([facility]) Room Air Heart rate 93 /min 93 /min [facility] ([facility]) Diastolic blood pressure 70 mm[Hg] 70 mm[Hg] [facility] ([facility]) Systolic blood pressure 110 mm[Hg] 110 mm[Hg] [facility] ([facility]) [place] body weight 154 [lb_av] 154 [lb_av] [facility] ([facility], ) Body height 68 [in_i] 68 [in_i] [facility] ([facility]) 5'8" Body temperature 97.8 [degF] 97.8 [degF] [facility] ([facility]) Oxygen saturation in Arterial blood by Pulse oximetry 98 % 98 % [facility] ([facility]) Room Air Heart rate 97 /min 97 /min [facility] ([facility]) Diastolic blood pressure 80 mm[Hg] 80 mm[Hg] [facility] ([facility]) Systolic blood pressure 130 mm[Hg] 130 mm[Hg] [facility] ([facility]) ID Date Data Source [id number] 02/11/2020 01:20:07 PM EDT [facility] Name Value Range Interpretation Code Description Data Source(s) WEIGHT RECORDED 157.00 pounds 157.00 pounds [facility] Height 68 Inches 068 Inches [facility] ID Date Data Source [id number] 02/09/2020 12:37:07 PM EDT [facility] Name Value Range Interpretation Code Description Data Source(s) WEIGHT RECORDED 148.80 pounds 148.80 pounds [facility] Height 68 Inches 068 Inches [facility]
[2020-06-08] MEDS ORDERED: AZITHROMYCIN 250MG TABLET PO ONE (23:35)
[2020-06-08] MEDS ORDERED: AZIT500T5 PO (23:38)
--- NOTE | 2020-06-08 23:44 | REPVR ---
PROCEDURE INFORMATION: Exam: XR Chest, 1 View Exam date and time: 06/08/2020 10:51 PM Age: 65 years old Clinical indication: Condition or disease; Other: Bronchitis; Additional info: Mild wheeze, bronchitis TECHNIQUE: Imaging protocol: XR of the chest Views: 1 view. COMPARISON: [place] Chest, 1 view 02/16/2020 2:27 PM FINDINGS: Lungs: There is mild prominence of bronchovascular markings consistent with previous changes of bronchitis. The lungs are otherwise clear. Pleural spaces: There is no evidence of pneumothorax or pleural effusion. Heart/Mediastinum: The heart is normal in size. Bones/joints: There is osteopenia. There is moderate scoliosis of the thoracic spine convexity to the left. IMPRESSION: Mild prominence of bronchovascular markings consistent with changes of bronchitis. The lungs are otherwise clear. Electronically signed by: Josef Yuen On 06/08/2020 23:43:52 PM
[2020-06-09 00:27] VITALS: BP 155/90
== END 2020-06-09 00:28 | disposition home or self-care (01) ==
LOC: M ED 19:59
DX: J18.9 Pneumonia, unspecified organism (principal); J20.9 Acute bronchitis, unspecified; I25.10 Atherosclerotic heart disease of native coronary artery without angina pectoris; I10 Essential (primary) hypertension; J44.9 Chronic obstructive pulmonary disease, unspecified; E78.5 Hyperlipidemia, unspecified; Z88.0 Allergy status to penicillin; Z88.1 Allergy status to other antibiotic agents; Z88.8 Allergy status to other drugs, medicaments and biological substances; Z91.013 Allergy to seafood; Z79.51 Long term (current) use of inhaled steroids; Z79.899 Other long term (current) drug therapy

== ENCOUNTER 2020-06-14 12:39 | Emergency (ER) | payer MEDICARE, MEDICAID ==
[~2020-06-14] VITALS: Ht 172.7 cm; Wt 67.3 kg
[~2020-06-14 12:39] MED LIST changes: +ASPI-569 PO; -ASPI81TAEC PO
[2020-06-14] MEDS ORDERED: COMBIVENT RESPIMAT 100-20MCG INHALER 4GM INH ONE (12:55)
[2020-06-14 13:27] LABS: BASO # 0.1 10^3/uL (0.0-0.2); BASO % 1.2 % (0.0-1.0); EOS # 0.2 10^3/uL (0.0-0.5); EOS % 3.7 % (0.0-3.0); HEMATOCRIT 37.6 % (42.0-52.0); HEMOGLOBIN 12.6 g/dl (13.5-17.5); LYMPH % 34.3 % (24.0-44.0); MEAN CORPUSCULAR HEMOGLOBIN 29.3 pg (27.0-33.0); MEAN CORPUSCULAR HGB CONC 33.5 g/dl (32.0-36.5); MEAN CORPUSCULAR VOLUME 87.4 fl (80.0-96.0); MONO # 0.4 10^3/uL (0.0-0.8); MONO % 7.5 % (2.0-8.0); NEUTROPHILS % 53.1 % (36.0-66.0); PLATELET COUNT, AUTOMATED 229 10^3/uL (150-450); WHITE BLOOD COUNT 5.7 10^3/uL (4.0-10.0)
[2020-06-14 13:42] LABS: INR 1.12; PROTHROMBIN TIME 14.6 SECONDS (12.5-14.3)
[2020-06-14 13:44] LABS: D-DIMER QUANT 350.94 ng/ml (<500)
[2020-06-14 13:58] LABS: ALBUMIN 3.3 GM/DL (3.2-5.2); ALT/SGPT 29 U/L (12-78); BILIRUBIN,DIRECT < 0.1 MG/DL (0.0-0.2); BILIRUBIN,TOTAL 0.2 MG/DL (0.2-1.0); BLOOD UREA NITROGEN 12 MG/DL (7-18); CALCIUM LEVEL 8.5 MG/DL (8.8-10.2); CARBON DIOXIDE LEVEL 23 MEQ/L (21-32); CHLORIDE LEVEL 105 MEQ/L (98-107); CK-MB VALUE MASS 3.5 NG/ML (<3.6); CPK CREATINE PHOSPHOKINASE 108 U/L (39-308); CREATININE FOR GFR 0.73 MG/DL (0.70-1.30); GLOMERULAR FILTRATION RATE > 60.0 (>49); GLUCOSE, FASTING 351 MG/DL (70-100); MB/CK RELATIVE INDEX 3.24 (< OR =4); NT-PRO BNP 40 PG/ML (<125); SODIUM LEVEL 135 MEQ/L (136-145); THYROID STIMULATING HORMONE 0.782 uIU/ML (0.358-3.740); TOTAL PROTEIN 6.6 GM/DL (6.4-8.2); TROPONIN I < 0.02 NG/ML (< 0.10)
--- NOTE | 2020-06-14 13:59 | REP ---
INDICATION: DYSPNEA/COUGH COMPARISON: 06/08/2020 TECHNIQUE: Portable AP view of the chest FINDINGS: The mediastinum and cardiac silhouette are stable and within normal limits for portable technique. The lung forte demonstrate chronic interstitial changes without acute consolidation, effusion, or pneumothorax. Skeletal structures are intact. IMPRESSION: No acute cardiopulmonary process appreciated. <Electronically signed by Schuyler Burrell > 06/14/20 [id number]
[2020-06-14] MEDS ORDERED: HumuLIN R (REGULAR) INSULIN (NovoLIN R) **100U/ML** PER UNIT IV ONE (14:25)
[2020-06-14] MEDS ORDERED: ACETAMINOPH W/CODEINE #3 TAB UD PO ONE (15:00)
[2020-06-14 16:11] VITALS: BP 138/82
--- NOTE | 2020-06-15 14:21 | ECGEPIP ---
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
== END 2020-06-14 17:10 | disposition home or self-care (01) ==
LOC: M ED 12:39
DX: R06.02 Shortness of breath (principal); I10 Essential (primary) hypertension; J44.9 Chronic obstructive pulmonary disease, unspecified; I25.10 Atherosclerotic heart disease of native coronary artery without angina pectoris; G40.909 Epilepsy, unspecified, not intractable, without status epilepticus; K21.9 Gastro-esophageal reflux disease without esophagitis; G20 Parkinson's disease; H54.8 Legal blindness, as defined in USA; F33.9 Major depressive disorder, recurrent, unspecified; F10.10 Alcohol abuse, uncomplicated; F17.200 Nicotine dependence, unspecified, uncomplicated; Z88.0 Allergy status to penicillin; Z88.1 Allergy status to other antibiotic agents; Z88.8 Allergy status to other drugs, medicaments and biological substances; Z91.013 Allergy to seafood; Z79.01 Long term (current) use of anticoagulants; Z79.82 Long term (current) use of aspirin; Z79.899 Other long term (current) drug therapy

== ENCOUNTER 2020-06-23 09:53 | Emergency (ER) | payer MEDICARE, MEDICAID ==
[~2020-06-23] VITALS: Ht 172.7 cm; Wt 67.4 kg
[2020-06-23] MEDS ORDERED: ACETAMINOPHEN 500 MG TAB PO ONE (10:45)
[2020-06-23 10:50] LABS: BASO # 0.1 10^3/uL (0.0-0.2); BASO % 0.9 % (0.0-1.0); EOS # 0.2 10^3/uL (0.0-0.5); EOS % 2.6 % (0.0-3.0); HEMATOCRIT 43.7 % (42.0-52.0); HEMOGLOBIN 14.9 g/dl (13.5-17.5); LYMPH # 2.5 10^3/uL (1.5-5.0); LYMPH % 33.2 % (24.0-44.0); MEAN CORPUSCULAR HEMOGLOBIN 29.7 pg (27.0-33.0); MEAN CORPUSCULAR HGB CONC 34.1 g/dl (32.0-36.5); MEAN CORPUSCULAR VOLUME 87.2 fl (80.0-96.0); MONO # 0.5 10^3/uL (0.0-0.8); MONO % 6.7 % (2.0-8.0); NEUTROPHILS # 4.3 10^3/uL (1.5-8.5); NEUTROPHILS % 56.2 % (36.0-66.0); PLATELET COUNT, AUTOMATED 291 10^3/uL (150-450); RED BLOOD COUNT 5.01 10^6/uL (4.30-6.10); WHITE BLOOD COUNT 7.7 10^3/uL (4.0-10.0)
--- NOTE | 2020-06-23 10:51 | REP ---
INDICATION: Altered Mental Status COMPARISON: 06/14/2020 TECHNIQUE: Portable AP view of the chest FINDINGS: The mediastinum and cardiac silhouette are stable and within normal limits for portable technique. The lung forte are clear without acute consolidation, effusion, or pneumothorax. Skeletal structures are intact. IMPRESSION: No acute cardiopulmonary process appreciated. <Electronically signed by Schuyler Burrell > 06/23/20 1040
[2020-06-23 11:23] LABS: ALBUMIN 4.3 GM/DL (3.2-5.2); ALT/SGPT 27 U/L (12-78); BILIRUBIN,DIRECT 0.1 MG/DL (0.0-0.2); BILIRUBIN,TOTAL 0.3 MG/DL (0.2-1.0); BLOOD UREA NITROGEN 10 MG/DL (7-18); CALCIUM LEVEL 9.5 MG/DL (8.8-10.2); CARBON DIOXIDE LEVEL 23 MEQ/L (21-32); CHLORIDE LEVEL 103 MEQ/L (98-107); CK-MB VALUE MASS 4.4 NG/ML (<3.6); CPK CREATINE PHOSPHOKINASE 116 U/L (39-308); CREATININE FOR GFR 0.81 MG/DL (0.70-1.30); GLOMERULAR FILTRATION RATE > 60.0 (>49); GLUCOSE, FASTING 332 MG/DL (70-100); MB/CK RELATIVE INDEX 3.79 (< OR =4); SODIUM LEVEL 133 MEQ/L (136-145); TROPONIN I < 0.02 NG/ML (< 0.10)
[2020-06-23 11:30] LABS: OSMOLALITY SERUM 292 MOSM/KG (280-301)
--- NOTE | 2020-06-23 13:18 | REP ---
INDICATION: weakn. COMPARISON: Comparison head CT studies December 22, 2019 and May 16, 2020.. TECHNIQUE: Helical scanning is acquired. 5 mm axial images were reformatted. Coronal MPR images were generated. FINDINGS: Bone window settings demonstrate an intact bony calvarium. There is no evidence of skull fracture or incidental bony calvarial lesion. The visualized paranasal sinuses appear clear. No intraorbital abnormality is seen. On soft tissue window setting images; the lateral, third, and fourth ventricles are normal in size and position. Poole-white differentiation pattern is normal above and below the tentorium. There are is no evidence of intracranial hemorrhage. No mass, edema, infarction, or midline shift is seen. No extra-axial fluid collection is appreciated. There is some vascular calcification in the distal internal carotid arteries. Mild generalized volume loss again noted. IMPRESSION: No acute intracranial abnormality.. <Electronically signed by Nelson Key > 06/23/20 0455
[2020-06-23 14:47] VITALS: BP 138/79
--- NOTE | 2020-06-23 17:28 | ECGEPIP ---
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
== END 2020-06-23 14:54 | disposition home or self-care (01) ==
LOC: M ED 09:53
DX: R11.2 Nausea with vomiting, unspecified (principal); G20 Parkinson's disease; E11.9 Type 2 diabetes mellitus without complications; I48.91 Unspecified atrial fibrillation; J44.9 Chronic obstructive pulmonary disease, unspecified; F10.21 Alcohol dependence, in remission; H54.8 Legal blindness, as defined in USA; Z99.3 Dependence on wheelchair; F17.200 Nicotine dependence, unspecified, uncomplicated; Z88.0 Allergy status to penicillin; Z88.8 Allergy status to other drugs, medicaments and biological substances; Z91.013 Allergy to seafood; Z79.01 Long term (current) use of anticoagulants; Z79.899 Other long term (current) drug therapy

== ENCOUNTER 2020-07-28 17:01 | Emergency (ER) | payer MEDICARE, MEDICAID ==
[~2020-07-28] VITALS: Ht 172.7 cm; Wt 55.0 kg
[2020-07-28] MEDS ORDERED: NS 1,000 ML IV ONE (17:30)
[2020-07-28 17:55] LABS: BASO # 0.1 10^3/uL (0.0-0.2); BASO % 0.8 % (0.0-1.0); EOS # 0.2 10^3/uL (0.0-0.5); EOS % 2.7 % (0.0-3.0); HEMATOCRIT 42.4 % (42.0-52.0); HEMOGLOBIN 14.5 g/dl (13.5-17.5); LYMPH # 1.6 10^3/uL (1.5-5.0); LYMPH % 22.2 % (24.0-44.0); MEAN CORPUSCULAR HEMOGLOBIN 30.3 pg (27.0-33.0); MEAN CORPUSCULAR HGB CONC 34.2 g/dl (32.0-36.5); MEAN CORPUSCULAR VOLUME 88.5 fl (80.0-96.0); MONO # 0.5 10^3/uL (0.0-0.8); MONO % 7.4 % (2.0-8.0); NEUTROPHILS # 4.9 10^3/uL (1.5-8.5); NEUTROPHILS % 66.6 % (36.0-66.0); PLATELET COUNT, AUTOMATED 224 10^3/uL (150-450); RED BLOOD COUNT 4.79 10^6/uL (4.30-6.10); WHITE BLOOD COUNT 7.3 10^3/uL (4.0-10.0)
[2020-07-28] MEDS ORDERED: GI COCKTAIL 50ML BTL(HYOSCYAMINE/MAALOX/LIDOCAINE VISCOUS)(1:3:1) PO ONE (17:55)
[2020-07-28 18:44] LABS: ALT/SGPT 26 IU/L (0-32); BILIRUBIN,TOTAL 0.4 MG/DL (0.2-1.0); BLOOD UREA NITROGEN 11 MG/DL (7-18); CALCIUM LEVEL 9.1 MG/DL (8.8-10.2); CARBON DIOXIDE LEVEL 22 mmol/L (20-29); CHLORIDE LEVEL 103 MEQ/L (98-107); CK-MB VALUE MASS 3.7 NG/ML (<3.6); CPK CREATINE PHOSPHOKINASE 123 U/L (39-308); CREATININE FOR GFR 0.67 MG/DL (0.70-1.30); GLOMERULAR FILTRATION RATE > 60.0 (>49); GLUCOSE, FASTING 340 MG/DL (70-100); POTASSIUM SERUM 3.8 MEQ/L (3.5-5.1); SODIUM LEVEL 134 MEQ/L (136-145)
--- NOTE | 2020-07-28 18:44 | REP ---
INDICATION: chest pain. COMPARISON: None. 06/23/2020 TECHNIQUE: Portable FINDINGS: The technique utilized in obtaining the radiograph has magnified the cardiac silhouette and accentuated the interstitial markings. The superior mediastinal structures are midline. The cardiac silhouette is unremarkable in size, shape, and position. The diaphragmatic surfaces of the lungs are regular, and the costophrenic angles are clear. The pulmonary forte are clear. The imaged osseous structures are intact. IMPRESSION: There is no acute cardiopulmonary disease. <Electronically signed by Miguel Duran > 07/28/20 0562
[2020-07-28 18:45] LABS: ALBUMIN 3.8 GM/DL (3.2-5.2); BILIRUBIN,DIRECT 0.1 MG/DL (0.0-0.2); TOTAL PROTEIN 7.7 GM/DL (6.4-8.2); TROPONIN I < 0.02 NG/ML (< 0.10)
[2020-07-28 19:47] VITALS: O2SAT 98
[2020-07-28 20:15] VITALS: BP 153/83
--- NOTE | 2020-07-29 19:46 | ECGEPIP ---
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
== END 2020-07-28 21:10 | disposition home or self-care (01) ==
LOC: EDBD 17:01 → M ED 17:01
DX: R52 Pain, unspecified (principal); G47.30 Sleep apnea, unspecified; I11.0 Hypertensive heart disease with heart failure; Z79.51 Long term (current) use of inhaled steroids; Z79.899 Other long term (current) drug therapy; Z88.0 Allergy status to penicillin; Z88.6 Allergy status to analgesic agent; Z88.8 Allergy status to other drugs, medicaments and biological substances; Z91.013 Allergy to seafood

== ENCOUNTER 2020-08-12 22:07 | Emergency (ER) | payer MEDICARE, MEDICAID ==
[2020-08-13 00:50] LABS: BASO # 0.1 10^3/uL (0.0-0.2); EOS # 0.3 10^3/uL (0.0-0.5); EOS % 3.8 % (0.0-3.0); HEMATOCRIT 42.5 % (42.0-52.0); HEMOGLOBIN 14.8 g/dl (13.5-17.5); LYMPH # 2.3 10^3/uL (1.5-5.0); LYMPH % 32.2 % (24.0-44.0); MEAN CORPUSCULAR HEMOGLOBIN 30.8 pg (27.0-33.0); MEAN CORPUSCULAR HGB CONC 34.8 g/dl (32.0-36.5); MEAN CORPUSCULAR VOLUME 88.5 fl (80.0-96.0); MONO # 0.5 10^3/uL (0.0-0.8); MONO % 6.3 % (2.0-8.0); NEUTROPHILS # 4.1 10^3/uL (1.5-8.5); NEUTROPHILS % 56.6 % (36.0-66.0); PLATELET COUNT, AUTOMATED 247 10^3/uL (150-450); WHITE BLOOD COUNT 7.2 10^3/uL (4.0-10.0)
[2020-08-13 01:30] LABS: ALBUMIN 3.8 GM/DL (3.2-5.2); ALT/SGPT 28 U/L (12-78); BILIRUBIN,DIRECT < 0.1 MG/DL (0.0-0.2); BILIRUBIN,TOTAL 0.5 MG/DL (0.2-1.0); BLOOD UREA NITROGEN 14 MG/DL (7-18); CALCIUM LEVEL 9.9 MG/DL (8.8-10.2); CARBON DIOXIDE LEVEL 25 MEQ/L (21-32); CHLORIDE LEVEL 103 MEQ/L (98-107); CK-MB VALUE MASS 3.7 NG/ML (<3.6); CPK CREATINE PHOSPHOKINASE 223 U/L (39-308); CREATININE FOR GFR 0.68 MG/DL (0.70-1.30); GLOMERULAR FILTRATION RATE > 60.0 (>49); GLUCOSE, FASTING 312 MG/DL (70-100); MB/CK RELATIVE INDEX 1.66 (< OR =4); POTASSIUM SERUM 4.3 MEQ/L (3.5-5.1); SODIUM LEVEL 136 MEQ/L (136-145); TOTAL PROTEIN 7.6 GM/DL (6.4-8.2); TROPONIN I < 0.02 NG/ML (< 0.10)
--- NOTE | 2020-08-13 01:47 | REPVR ---
PROCEDURE INFORMATION: Exam: XR Chest Exam date and time: 08/13/2020 1:07 AM Age: 65 years old Clinical indication: Other: Dyspnea/cough TECHNIQUE: Imaging protocol: XR of the chest. Views: 2 views. COMPARISON: CR Chest, 1 view 07/28/2020 6:03 PM FINDINGS: Lungs: The lungs are unchanged. There are no interval infiltrates. Pleural spaces: Unremarkable. No pleural effusion. No pneumothorax. Heart/Mediastinum: The heart and mediastinum are unchanged. Bones/joints: Degenerative narrowing of the right glenohumeral joint space. IMPRESSION: Stable chest since 07/28/2020. Electronically signed by: Matt Paulino On 08/13/2020 01:47:12 AM
[2020-08-13 03:15] VITALS: BP 127/67
--- NOTE | 2020-08-13 06:25 | ECGEPIP ---
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
== END 2020-08-13 04:12 | disposition home or self-care (01) ==
LOC: M ED 22:07
DX: Z60.9 Problem related to social environment, unspecified (principal); J44.9 Chronic obstructive pulmonary disease, unspecified; Z79.51 Long term (current) use of inhaled steroids; Z79.899 Other long term (current) drug therapy; Z88.0 Allergy status to penicillin; Z88.6 Allergy status to analgesic agent; Z88.8 Allergy status to other drugs, medicaments and biological substances; Z91.013 Allergy to seafood

== ENCOUNTER 2020-09-02 13:24 | Inpatient (IN) | payer MEDICARE, MEDICAID ==
[~2020-09-02] VITALS: Ht 172.7 cm; Wt 61.2 kg
--- NOTE | 2020-09-02 14:12 | REP ---
INDICATION: weakness. COMPARISON: Comparison CT studies are reviewed from June 23, 2020 and May 16, 2020.. TECHNIQUE: Helical scanning is acquired. 5 mm axial images were reformatted. Coronal MPR images were generated. FINDINGS: Bone window settings demonstrate an intact bony calvarium. There is no evidence of skull fracture or incidental bony calvarial lesion. There is a mucous retention cyst in the right maxillary sinus unchanged from the June 23, 2020 study. The visualized paranasal sinuses appear otherwise clear. No intraorbital abnormality is seen. On soft tissue window setting images; the lateral, third, and fourth ventricles are normal in size and position. Poole-white differentiation pattern is normal above and below the tentorium. There are is no evidence of intracranial hemorrhage. No mass, edema, infarction, or midline shift is seen. No extra-axial fluid collection is appreciated. There is vascular calcification in the carotid siphons bilaterally. Digital photoresist printer radiograph is unremarkable. Patient is edentulous. There is some mucous retention cyst formation in the right maxillary sinus unchanged. There is generalized volume loss also unchanged. IMPRESSION: Vascular calcification and generalized volume loss. Mucous retention cyst in the right maxillary sinus. Otherwise negative noncontrast head CT.. <Electronically signed by Nelson Key > 09/02/20 1546
--- NOTE | 2020-09-02 14:21 | REP ---
INDICATION: SOB COMPARISON: 08/13/2020. TECHNIQUE: AP and lateral. FINDINGS: Lungs: Clear, no infiltrate. Heart: Normal in size. Mediastinum: There is mild calcification of the thoracic aorta. The mediastinal silhouette is unchanged. Pleural angles: Unremarkable.. Bones and soft tissues: There are degenerative changes of the spine without compression deformity. IMPRESSION: No acute pulmonary disease. <Electronically signed by Tulio Poole > 09/02/20 0127
[2020-09-02] MEDS: NS 1,000 ML IV SCH ×2 (14:30→21:53)
[2020-09-02 14:42] LABS: BASO # 0.1 10^3/uL (0.0-0.2); BASO % 0.8 % (0.0-1.0); EOS # 0.2 10^3/uL (0.0-0.5); HEMATOCRIT 40.9 % (42.0-52.0); HEMOGLOBIN 14.1 g/dl (13.5-17.5); LYMPH # 2.8 10^3/uL (1.5-5.0); LYMPH % 33.3 % (24.0-44.0); MEAN CORPUSCULAR HEMOGLOBIN 30.5 pg (27.0-33.0); MEAN CORPUSCULAR HGB CONC 34.5 g/dl (32.0-36.5); MEAN CORPUSCULAR VOLUME 88.5 fl (80.0-96.0); MONO # 0.6 10^3/uL (0.0-0.8); MONO % 7.3 % (2.0-8.0); NEUTROPHILS # 4.8 10^3/uL (1.5-8.5); NEUTROPHILS % 56.2 % (36.0-66.0); PLATELET COUNT, AUTOMATED 250 10^3/uL (150-450); RED BLOOD COUNT 4.62 10^6/uL (4.30-6.10); WHITE BLOOD COUNT 8.5 10^3/uL (4.0-10.0)
[2020-09-02 15:00] LABS: AMPHETAMINES LEVEL URINE NEGATIVE (NEGATIVE); BARBITURATES URINE NEGATIVE (NEGATIVE); BENZODIAZEPINES URINE NEGATIVE (NEGATIVE); CANNABINOIDS URINE POSITIVE (NEGATIVE); COCAINE METABOLITE URINE NEGATIVE (NEGATIVE); METHADONE URINE NEGATIVE (NEGATIVE); OPIATES URINE NEGATIVE (NEGATIVE); PHENCYCLIDINE URINE NEGATIVE (NEGATIVE)
[2020-09-02 15:10] LABS: ACETAMINOPHEN LEVEL < 2.0 UG/ML (10.0-30.0); ALBUMIN 3.5 GM/DL (3.2-5.2); ALT/SGPT 31 U/L (12-78); BILIRUBIN,DIRECT < 0.1 MG/DL (0.0-0.2); BILIRUBIN,TOTAL 0.3 MG/DL (0.2-1.0); BLOOD UREA NITROGEN 12 MG/DL (7-18); CARBON DIOXIDE LEVEL 20 MEQ/L (21-32); CHLORIDE LEVEL 107 MEQ/L (98-107); CK-MB VALUE MASS 3.2 NG/ML (<3.6); CPK CREATINE PHOSPHOKINASE 134 U/L (39-308); CREATININE FOR GFR 0.71 MG/DL (0.70-1.30); ETHYL ALCOHOL (ETHANOL) < 0.003 % (0.000-0.010); FREE T4 0.74 NG/DL (0.76-1.46); GLOMERULAR FILTRATION RATE > 60.0 (>49); GLUCOSE, FASTING 337 MG/DL (70-100); MB/CK RELATIVE INDEX 2.39 (< OR =4); SALICYLATE LEVEL < 1.7 MG/DL (5.0-30.0); SODIUM LEVEL 136 MEQ/L (136-145); THYROID STIMULATING HORMONE 0.691 uIU/ML (0.358-3.740); TOTAL PROTEIN 7.1 GM/DL (6.4-8.2); TROPONIN I < 0.02 NG/ML (< 0.10)
[2020-09-02] MEDS ORDERED: ACETAMINOPHEN TAB 650MG DOSE (2X325MG) PO ONE (16:40)
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
[2020-09-02] MEDS ORDERED: ACETAMINOPHEN TAB 650MG DOSE (2X325MG) PO PRN (18:00)
[2020-09-02] MEDS ORDERED: MOM 30ML SUSPENSION UDC PO PRN (18:00)
[2020-09-02] MEDS ORDERED: MAALOX 30 ML SUSP *UDC PO PRN (18:00)
[2020-09-02] MEDS ORDERED: COMMENTS (18:04)
[2020-09-02 18:22] LABS: RSV AMPLIFICATION NEGATIVE (NEGATIVE)
[2020-09-02] MEDS ORDERED: ALBUTEROL 90 MCG/ACT 8GM HFA INHALER INH PRN (18:30)
[2020-09-02] MEDS ORDERED: LORazepam 2 MG TAB PO PRN (18:35)
[2020-09-02] MEDS ORDERED: GLUCAGON INJ 1MG VIAL SC PRN (18:35)
[2020-09-02] MEDS ORDERED: GLUCOSE 4GM CHEW TABLET PO PRN (18:35)
[2020-09-02] MEDS ORDERED: DEXTROSE 50% 50 ML SYRINGE IV PRN (18:35)
[2020-09-02 20:00] VITALS: BP 150/60
[2020-09-02 20:30] VITALS: BP 150/60
--- NOTE | 2020-09-02 20:39 | ECGEPIP ---
[facility] - ED Test Date: 2020-09-02 Pat Name: PATY CH Department: Room: - Gender: Male Test Developer: markulises : 1955 Requested By: ANNY Gnogora Order Number: [id number] Reading MD: Brandy Davila Measurements Intervals [place] Rate: 85 P: 70 TX: 216 QRS: 66 QRSD: 92 T: 44 QT: 368 QTc: 437 Interpretive Statements Sinus rhythm with 1st degree AV block Nonspecific T wave abnormality decreased rate 08/13/20 Electronically Signed on 09-02-2020 20:39:20 EDT by Brandy Davila
[2020-09-02] MEDS: ramipriL 1.25 MG CAP PO SCH (21:00)
[2020-09-02] MEDS: traZODone 100 MG TAB PO SCH (21:33)
[2020-09-02] MEDS: DOCUSATE SODIUM 100MG CAPSULE PO SCH (21:33)
[2020-09-02] MEDS: ROSUVASTATIN 10 MG TAB (CRESTOR) PO SCH (21:33)
[2020-09-02] MEDS: TOPIRAMATE (TopAMAX) 25 MG TAB PO SCH (21:33)
[2020-09-02] MEDS: THIAMINE 100 MG TAB PO SCH (21:33)
[2020-09-02] MEDS: GABAPENTIN 300 MG CAP PO SCH (21:34)
[2020-09-02] MEDS: levETIRAcetam 250MG TABLET (KEPPRA) PO SCH (21:34)
[2020-09-02] MEDS: CYCLOBENZAPRINE 10MG TABLET PO SCH (21:34)
[2020-09-02] MEDS: APIXABAN 5 MG TAB (ELIQUIS) PO SCH (21:34)
[2020-09-02] MEDS: HumaLOG INSULIN (NovoLOG) PER UNIT SC SCH (21:34)
[2020-09-03 05:30] VITALS: BP 128/80
[2020-09-03 05:37] VITALS: BP 128/80
[2020-09-03 07:21] LABS: HEMATOCRIT 36.5 % (42.0-52.0); HEMOGLOBIN 12.6 g/dl (13.5-17.5); MEAN CORPUSCULAR HEMOGLOBIN 30.7 pg (27.0-33.0); MEAN CORPUSCULAR HGB CONC 34.5 g/dl (32.0-36.5); MEAN CORPUSCULAR VOLUME 88.8 fl (80.0-96.0); PLATELET COUNT, AUTOMATED 220 10^3/uL (150-450); RED BLOOD COUNT 4.11 10^6/uL (4.30-6.10); WHITE BLOOD COUNT 6.8 10^3/uL (4.0-10.0)
[2020-09-03 07:42] LABS: BLOOD UREA NITROGEN 11 MG/DL (7-18); CALCIUM LEVEL 7.7 MG/DL (8.8-10.2); CARBON DIOXIDE LEVEL 22 MEQ/L (21-32); CHLORIDE LEVEL 108 MEQ/L (98-107); CREATININE FOR GFR 0.49 MG/DL (0.70-1.30); GLOMERULAR FILTRATION RATE > 60.0 (>49); GLUCOSE, FASTING 249 MG/DL (70-100); MAGNESIUM LEVEL 1.5 MG/DL (1.8-2.4); SODIUM LEVEL 135 MEQ/L (136-145)
[2020-09-03] MEDS: GABAPENTIN 300 MG CAP PO SCH ×3 (08:24→20:44)
[2020-09-03] MEDS: FOLIC ACID 1 MG TAB PO SCH (08:24)
[2020-09-03] MEDS: MULTIVITAMINS/MINERALS THERAP 1 TAB PO SCH (08:24)
[2020-09-03] MEDS: DOCUSATE SODIUM 100MG CAPSULE PO SCH ×2 (08:24→20:44)
[2020-09-03] MEDS: LORATADINE 10 MG TAB PO SCH (08:24)
[2020-09-03] MEDS: levETIRAcetam 250MG TABLET (KEPPRA) PO SCH ×2 (08:25→20:44)
[2020-09-03] MEDS: CYCLOBENZAPRINE 10MG TABLET PO SCH ×3 (08:25→20:44)
[2020-09-03] MEDS: THIAMINE 100 MG TAB PO SCH ×2 (08:25→20:44)
[2020-09-03] MEDS: GLIMEPIRIDE 2 MG TAB PO SCH ×2 (08:25→18:25)
[2020-09-03] MEDS: APIXABAN 5 MG TAB (ELIQUIS) PO SCH ×2 (08:25→20:43)
[2020-09-03] MEDS: TOPIRAMATE (TopAMAX) 25 MG TAB PO SCH ×2 (08:25→20:43)
[2020-09-03] MEDS: ASPIRIN 81MG ENTERIC TABLET PO SCH (08:26)
[2020-09-03] MEDS: HumaLOG INSULIN (NovoLOG) PER UNIT SC SCH ×4 (08:27→20:52)
[2020-09-03] MEDS: DIGOXIN 0.125 MG TAB PO SCH (08:29)
[2020-09-03] MEDS: ramipriL 1.25 MG CAP PO SCH (08:30)
[2020-09-03] MEDS: COMBIVENT RESPIMAT 100-20MCG INHALER 4GM INH PRN ×2 (12:43→20:55)
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
[2020-09-03 14:00] VITALS: BP 125/76
[2020-09-03 19:42] VITALS: BP 120/97
[2020-09-03 19:45] VITALS: BP 120/97
[2020-09-03] MEDS: ROSUVASTATIN 10 MG TAB (CRESTOR) PO SCH (20:44)
[2020-09-03] MEDS: traZODone 100 MG TAB PO SCH (20:45)
[2020-09-04 05:06] VITALS: BP 110/71
[2020-09-04 05:10] VITALS: BP 110/71
[2020-09-04] MEDS: CYCLOBENZAPRINE 10MG TABLET PO SCH ×3 (08:43→21:16)
[2020-09-04] MEDS: HumaLOG INSULIN (NovoLOG) PER UNIT SC SCH ×4 (08:43→21:15)
[2020-09-04] MEDS: ASPIRIN 81MG ENTERIC TABLET PO SCH (08:43)
[2020-09-04] MEDS: GABAPENTIN 300 MG CAP PO SCH ×3 (08:44→21:17)
[2020-09-04] MEDS: APIXABAN 5 MG TAB (ELIQUIS) PO SCH ×2 (08:44→21:16)
[2020-09-04] MEDS: LORATADINE 10 MG TAB PO SCH (08:44)
[2020-09-04] MEDS: THIAMINE 100 MG TAB PO SCH ×2 (08:44→21:16)
[2020-09-04] MEDS: GLIMEPIRIDE 2 MG TAB PO SCH ×2 (08:44→18:03)
[2020-09-04] MEDS: FOLIC ACID 1 MG TAB PO SCH (08:44)
[2020-09-04] MEDS: DOCUSATE SODIUM 100MG CAPSULE PO SCH ×2 (08:45→21:16)
[2020-09-04] MEDS: levETIRAcetam 250MG TABLET (KEPPRA) PO SCH ×2 (08:45→21:16)
[2020-09-04] MEDS: MULTIVITAMINS/MINERALS THERAP 1 TAB PO SCH (08:45)
[2020-09-04] MEDS: TOPIRAMATE (TopAMAX) 25 MG TAB PO SCH ×2 (08:45→21:20)
[2020-09-04] MEDS: DIGOXIN 0.125 MG TAB PO SCH (08:48)
[2020-09-04] MEDS: ramipriL 1.25 MG CAP PO SCH (09:00)
[2020-09-04 14:00] VITALS: BP_SYST 116; BP_SYST 125; BP_DIAS 76; BP_DIAS 79
[2020-09-04] MEDS: COMBIVENT RESPIMAT 100-20MCG INHALER 4GM INH PRN ×2 (15:04→19:47)
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
[2020-09-04] MEDS: traZODone 100 MG TAB PO SCH (21:16)
[2020-09-04] MEDS: ROSUVASTATIN 10 MG TAB (CRESTOR) PO SCH (21:19)
[2020-09-04 22:00] VITALS: BP 143/89
[2020-09-05 05:52] VITALS: BP 124/82
[2020-09-05 06:52] VITALS: BP 124/82
[2020-09-05 07:36] LABS: HEMATOCRIT 39.1 % (42.0-52.0); HEMOGLOBIN 13.4 g/dl (13.5-17.5); MEAN CORPUSCULAR HEMOGLOBIN 30.1 pg (27.0-33.0); MEAN CORPUSCULAR HGB CONC 34.3 g/dl (32.0-36.5); MEAN CORPUSCULAR VOLUME 87.9 fl (80.0-96.0); PLATELET COUNT, AUTOMATED 230 10^3/uL (150-450); RED BLOOD COUNT 4.45 10^6/uL (4.30-6.10); WHITE BLOOD COUNT 7.1 10^3/uL (4.0-10.0)
[2020-09-05] MEDS: HumaLOG INSULIN (NovoLOG) PER UNIT SC SCH ×4 (07:45→21:12)
[2020-09-05] MEDS: CYCLOBENZAPRINE 10MG TABLET PO SCH ×3 (07:45→21:11)
[2020-09-05] MEDS: THIAMINE 100 MG TAB PO SCH (07:45)
[2020-09-05] MEDS: GLIMEPIRIDE 2 MG TAB PO SCH ×2 (07:46→17:11)
[2020-09-05] MEDS: FOLIC ACID 1 MG TAB PO SCH (07:47)
[2020-09-05] MEDS: ASPIRIN 81MG ENTERIC TABLET PO SCH (07:47)
[2020-09-05] MEDS: DIGOXIN 0.125 MG TAB PO SCH (07:47)
[2020-09-05] MEDS: GABAPENTIN 300 MG CAP PO SCH ×3 (07:48→21:11)
[2020-09-05] MEDS: ramipriL 1.25 MG CAP PO SCH (07:48)
[2020-09-05] MEDS: LORATADINE 10 MG TAB PO SCH (07:48)
[2020-09-05] MEDS: levETIRAcetam 250MG TABLET (KEPPRA) PO SCH ×2 (07:48→21:11)
[2020-09-05] MEDS: TOPIRAMATE (TopAMAX) 25 MG TAB PO SCH ×2 (07:48→21:12)
[2020-09-05] MEDS: DOCUSATE SODIUM 100MG CAPSULE PO SCH ×2 (07:48→21:12)
[2020-09-05] MEDS: MULTIVITAMINS/MINERALS THERAP 1 TAB PO SCH (07:48)
[2020-09-05] MEDS: APIXABAN 5 MG TAB (ELIQUIS) PO SCH ×2 (07:49→21:11)
[2020-09-05 08:15] LABS: BLOOD UREA NITROGEN 17 MG/DL (7-18); CALCIUM LEVEL 8.6 MG/DL (8.8-10.2); CARBON DIOXIDE LEVEL 25 MEQ/L (21-32); CHLORIDE LEVEL 105 MEQ/L (98-107); CREATININE FOR GFR 0.63 MG/DL (0.70-1.30); GLOMERULAR FILTRATION RATE > 60.0 (>49); GLUCOSE, FASTING 242 MG/DL (70-100); POTASSIUM SERUM 4.1 MEQ/L (3.5-5.1); SODIUM LEVEL 136 MEQ/L (136-145)
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
[2020-09-05 14:00] VITALS: BP 125/88
[2020-09-05 14:48] VITALS: BP 125/88
[2020-09-05] MEDS: traZODone 100 MG TAB PO SCH (21:11)
[2020-09-05] MEDS: ROSUVASTATIN 10 MG TAB (CRESTOR) PO SCH (21:12)
[2020-09-05 22:00] VITALS: BP 125/78
[2020-09-06 06:00] VITALS: BP_SYST 108; BP_SYST 114; BP_DIAS 70; BP_DIAS 74
[2020-09-06 06:42] LABS: HEMATOCRIT 37.8 % (42.0-52.0); MEAN CORPUSCULAR HEMOGLOBIN 30.5 pg (27.0-33.0); MEAN CORPUSCULAR HGB CONC 34.4 g/dl (32.0-36.5); MEAN CORPUSCULAR VOLUME 88.7 fl (80.0-96.0); PLATELET COUNT, AUTOMATED 233 10^3/uL (150-450); RED BLOOD COUNT 4.26 10^6/uL (4.30-6.10); WHITE BLOOD COUNT 6.4 10^3/uL (4.0-10.0)
[2020-09-06 06:59] LABS: BLOOD UREA NITROGEN 15 MG/DL (7-18); CALCIUM LEVEL 8.8 MG/DL (8.8-10.2); CARBON DIOXIDE LEVEL 24 MEQ/L (21-32); CHLORIDE LEVEL 105 MEQ/L (98-107); CREATININE FOR GFR 0.63 MG/DL (0.70-1.30); GLOMERULAR FILTRATION RATE > 60.0 (>49); GLUCOSE, FASTING 284 MG/DL (70-100); POTASSIUM SERUM 4.1 MEQ/L (3.5-5.1); SODIUM LEVEL 136 MEQ/L (136-145)
[2020-09-06] MEDS: HumaLOG INSULIN (NovoLOG) PER UNIT SC SCH ×2 (07:57→11:44)
[2020-09-06] MEDS: CYCLOBENZAPRINE 10MG TABLET PO SCH ×2 (07:57→11:44)
[2020-09-06] MEDS: DIGOXIN 0.125 MG TAB PO SCH (07:58)
[2020-09-06] MEDS: DOCUSATE SODIUM 100MG CAPSULE PO SCH (07:58)
[2020-09-06] MEDS: LORATADINE 10 MG TAB PO SCH (07:58)
[2020-09-06] MEDS: GLIMEPIRIDE 2 MG TAB PO SCH (07:59)
[2020-09-06] MEDS: levETIRAcetam 250MG TABLET (KEPPRA) PO SCH (07:59)
[2020-09-06] MEDS: MULTIVITAMINS/MINERALS THERAP 1 TAB PO SCH (07:59)
[2020-09-06 08:00] VITALS: BP 108/74
[2020-09-06] MEDS: FOLIC ACID 1 MG TAB PO SCH (08:00)
[2020-09-06] MEDS: TOPIRAMATE (TopAMAX) 25 MG TAB PO SCH (08:00)
[2020-09-06] MEDS: APIXABAN 5 MG TAB (ELIQUIS) PO SCH (08:00)
[2020-09-06] MEDS: GABAPENTIN 300 MG CAP PO SCH (08:00)
[2020-09-06] MEDS: ASPIRIN 81MG ENTERIC TABLET PO SCH (08:00)
[2020-09-06] MEDS: ramipriL 1.25 MG CAP PO SCH (08:00)
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
[2020-09-06] MEDS ORDERED: traMADol 50 MG TAB PO ONE (11:00)
== END 2020-09-06 12:30 | DRG 92 ==
LOC: M ED 13:24 → M ED INP 17:57 → ENRESERV 19:14 → M MS5PR 20:00
PROVIDERS: ADMIT Family Medicine; ATTEND Internal Medicine
DX: R26.81 Unsteadiness on feet (principal); T76.01XA Adult neglect or abandonment, suspected, initial encounter; I48.20 Chronic atrial fibrillation, unspecified; G20 Parkinson's disease; R53.1 Weakness; E11.9 Type 2 diabetes mellitus without complications; J44.9 Chronic obstructive pulmonary disease, unspecified; I10 Essential (primary) hypertension; G40.909 Epilepsy, unspecified, not intractable, without status epilepticus; K21.9 Gastro-esophageal reflux disease without esophagitis; H54.8 Legal blindness, as defined in USA; F32.9 Major depressive disorder, single episode, unspecified; I25.10 Atherosclerotic heart disease of native coronary artery without angina pectoris; Z79.899 Other long term (current) drug therapy; Z98.2 Presence of cerebrospinal fluid drainage device; Z88.6 Allergy status to analgesic agent; Z88.8 Allergy status to other drugs, medicaments and biological substances; Z88.0 Allergy status to penicillin; Z91.013 Allergy to seafood; F10.10 Alcohol abuse, uncomplicated

== ENCOUNTER 2020-10-06 14:10 | Emergency (ER) | payer MEDICARE, MEDICAID ==
[~2020-10-06] VITALS: Ht 172.7 cm; Wt 66.4 kg
[~2020-10-06 14:10] MED LIST changes: +COMMENTS; -DOXY100C37 PO; +DOXY1CAP62 PO
[2020-10-06] MEDS ORDERED: ACETAMINOPHEN TAB 650MG DOSE (2X325MG) PO ONE (17:15)
[2020-10-06] MEDS ORDERED: LEVE1INJ5 (17:29)
[2020-10-06 17:47] VITALS: BP 150/86
== END 2020-10-06 17:50 | disposition home or self-care (01) ==
LOC: M ED 14:10
DX: Z76.5 Malingerer [conscious simulation] (principal); E11.9 Type 2 diabetes mellitus without complications; J44.9 Chronic obstructive pulmonary disease, unspecified; I10 Essential (primary) hypertension; I48.91 Unspecified atrial fibrillation; Z88.0 Allergy status to penicillin; Z88.6 Allergy status to analgesic agent; Z88.8 Allergy status to other drugs, medicaments and biological substances; Z91.018 Allergy to other foods